=== PATIENT | female | born 1935 | race Caucasian/White ===

== ENCOUNTER 2017-08-12 21:57 | Inpatient (IN) | payer MEDICAID, MEDICARE ==
[~2017-08-12] VITALS: Ht 157.5 cm; Wt 48.1 kg
[~2017-08-12 21:57] MED LIST: AMLO5TAB7 PO; ASPI-605 PO; CHOL100045 PO; CYAN100071 PO; FERR325T27 PO; LOSA25TA13 PO; METO-356 PO; METO-357 PO; PRAV20TA4 PO; SAXA1TBM2 PO
[2017-08-12] MEDS ORDERED: MAGN400T6 PO (22:25)
[2017-08-12 23:43] LABS: BASOPHILS % (AUTO) 0.2 % (0.0-2.0); EOSINOPHILS % (AUTO) 0.4 % (0.0-6.0); HEMATOCRIT 40 % (33-45); LYMPHOCYTES # (AUTO) 1.3 /CMM (0.8-4.8); LYMPHOCYTES % (AUTO) 13.9 % (20.0-44.0); MEAN CORPUSCULAR HGB CONC 33 g/dl (31.0-36.0); MEAN CORPUSCULAR VOLUME 84 fL (82-100); MONOCYTES # (AUTO) 0.7 /CMM (0.1-1.30); MONOCYTES % (AUTO) 7.8 % (2.0-12.0); NEUTROPHILS % (AUTO) 77.7 % (43.0-81.0); PLATELET COUNT (AUTO) 298 /CMM (150-450); RDW COEFFICIENT OF VARIATION 15.7 (11.5-15.0); RED BLOOD CELL COUNT(AUTO) 4.69 MIL/uL (4.0-5.2); WHITE BLOOD COUNT (AUTO) 9.1 K/uL (4.3-11.0)
[2017-08-12 23:53] LABS: INR 0.96 (0.87-1.13)
[2017-08-12 23:54] LABS: SERUM AMMONIA < 10 umol/L (11-32)
[2017-08-12 23:56] LABS: ACETAMINOPHEN 0 ug/ml (10-30); ALANINE AMINOTRANSFERASE 18 U/L (12-78); ALBUMIN 3.4 g/dL (3.4-5.0); ALCOHOL, BLOOD < 3 mg/dL (0-0); ALKALINE PHOSPHATASE 61 U/L (46-116); ASPARTATE AMINOTRANSFERASE 13 U/L (15-37); BILIRUBIN,DIRECT 0.1 mg/dL (0.0-0.2); BILIRUBIN,TOTAL 0.3 mg/dL (0.2-1.0); CALCIUM, SERUM 12.2 mg/dL (8.5-10.1); CARBON DIOXIDE 32 mmol/L (21-32); CHLORIDE 105 mmol/L (98-107); CREATININE 1.8 mg/dL (0.6-1.3); GLUCOSE 179 mg/dL (74-106); POTASSIUM 4.4 mmol/L (3.5-5.1); SALICYLATE 1.5 mg/dL (2.8-20.0); SODIUM SERUM 144 mmol/L (136-145); TOTAL PROTEIN, SERUM 8.2 g/dL (6.4-8.2)
[2017-08-12 23:58] LABS: TROPONIN I < 0.017 ng/mL (0.00-0.056)
[2017-08-12 23:59] LABS: UREA NITROGEN, BLOOD 106 mg/dL (7-18)
[2017-08-13] VITALS (7 sets, daily range): BP systolic 103–162; BP diastolic 60–89
[2017-08-13 00:41] LABS: THYROID STIMULATING HORMONE 0.286 uIU/mL (0.358-3.74)
[2017-08-13] MEDS ORDERED: CEFTRIAXONE 1GM BAG (ER ONLY) 1 GM/50 ML PIGGYBACK IV ONE (01:00)
[2017-08-13 01:02] LABS: APPEARANCE,URINE CLOUDY (CLEAR); BILIRUBIN,URINE NEGATIVE (NEGATIVE); BLOOD, URINE 3+ Ery/uL (NEGATIVE); COLOR,URINE YELLOW (YELLOW); KETONES,URINE NEGATIVE (NEGATIVE); LEUKOCYTE ESTERASE ,URINE 3+ (NEGATIVE); NITRITE, URINE NEGATIVE (NEGATIVE); PROTEIN,URINE 2+ mg/dl (NEGATIVE); UGLUCOSE NEGATIVE (NEGATIVE); UROBILINOGEN,URINE 0.2 EU/dL (0.2)
[2017-08-13 01:16] LABS: BACTERIA,URINE Moderate /HPF (None Seen); WBC,URINE TOO NUMEROUS TO COUN /HPF (0-3)
[2017-08-13 01:17] LABS: SQUAMOUS EPITHELIAL CELL,UR Few /HPF (None Seen)
[2017-08-13] MEDS ORDERED: CEFTRIAXONE 1GM BAG (ER ONLY) 50 ML IV ONE (01:18)
[2017-08-13] MEDS ORDERED: ONDANSETRON HCL/PF 4 MG/2 ML VIAL IVP PRN (01:30)
[2017-08-13] MEDS ORDERED: ZOLPIDEM TARTRATE 5 MG TABLET PO PRN (01:30)
[2017-08-13] MEDS ORDERED: IV NS 0.9% 1,000 ML BAG IV ONE (01:30)
[2017-08-13] MEDS ORDERED: MAG HYDROX/AL HYDROX/SIMETH 30 ML UDC PO PRN (01:30)
[2017-08-13] MEDS ORDERED: MAGNESIUM HYDROXIDE 30 ML UDC PO PRN (01:30)
[2017-08-13] MEDS: IV 1/2NS 1000 ML 1,000 ML IV PRN ×2 (02:22→15:32)
[2017-08-13] MEDS: ASPIRIN EC 81 MG TABLET.DR PO SCH (09:00)
[2017-08-13] MEDS: ATORVASTATIN 10 MG TABLET PO SCH (09:00)
[2017-08-13] MEDS: FERROUS SULFATE (325 MG) 325 MG/TAB TABLET PO SCH (09:00)
[2017-08-13] MEDS: AMLODIPINE BESYLATE 5 MG TABLET PO SCH (09:00)
[2017-08-13] MEDS: MAGNESIUM OXIDE 400 MG TABLET PO SCH (09:00)
[2017-08-13] MEDS ORDERED: METOPROLOL SUCCINATE 25 MG TAB.SR.24H PO SCH (09:00)
[2017-08-13] MEDS: METOPROLOL SUCCINATE 50 MG TAB.SR.24H PO SCH (09:00)
[2017-08-13] MEDS: INSULIN REGULAR, HUMAN 100 UNIT/ML 3 ML VIAL SQ PRN ×3 (11:55→23:25)
[2017-08-13] MEDS: BLOOD SUGAR DIAGNOSTIC 1 EACH STRIP IN SCH ×3 (12:00→23:12)
[2017-08-13] MEDS ORDERED: DEXTROSE 50%-WATER 50 ML DISP.SYRIN IV PRN (12:00)
[2017-08-13] MEDS: HEPARIN SODIUM, PORCINE 5000 UNITS/1 ML VIAL SQ SCH ×2 (12:00→23:07)
[2017-08-13 12:04] LABS: BASOPHILS % (AUTO) 0.4 % (0.0-2.0); EOSINOPHILS % (AUTO) 0.7 % (0.0-6.0); HEMATOCRIT 41 % (33-45); HEMOGLOBIN 13.2 g/dL (11.5-14.8); LYMPHOCYTES # (AUTO) 1.7 /CMM (0.8-4.8); LYMPHOCYTES % (AUTO) 13.4 % (20.0-44.0); MEAN CORPUSCULAR HGB CONC 32 g/dl (31.0-36.0); MEAN CORPUSCULAR VOLUME 83 fL (82-100); MONOCYTES % (AUTO) 7.7 % (2.0-12.0); NEUTROPHILS # (AUTO) 9.6 /CMM (1.8-8.9); NEUTROPHILS % (AUTO) 77.8 % (43.0-81.0); PLATELET COUNT (AUTO) 305 /CMM (150-450); RDW COEFFICIENT OF VARIATION 14.2 (11.5-15.0); RED BLOOD CELL COUNT(AUTO) 4.91 MIL/uL (4.0-5.2); WHITE BLOOD COUNT (AUTO) 12.4 K/uL (4.3-11.0)
[2017-08-13 12:06] LABS: CALCIUM, SERUM 10.8 mg/dL (8.5-10.1); CARBON DIOXIDE 28 mmol/L (21-32); CHLORIDE 105 mmol/L (98-107); CREATININE 1.5 mg/dL (0.6-1.3); GLUCOSE 157 mg/dL (74-106); POTASSIUM 3.9 mmol/L (3.5-5.1); SODIUM SERUM 144 mmol/L (136-145); UREA NITROGEN, BLOOD 101 mg/dL (7-18)
[2017-08-13 12:48] LABS: ABG OXYGEN SATURATION 94.5 % (92.0-98.5); ABG PCO2 47.3 mmHg (35.0-45.0); ABG PH 7.425 (7.350-7.450); ABG PO2 70.8 mmHg (75.0-100.0); AaDO2 22.3 mmHg; COHb 2.6 % (0.5-1.5); MetHb 0.1 % (0.0-1.5); O2Hb 91.9 % (94.0-97.0); SITE, ABG Right Brachial
[2017-08-13] MEDS: GLUCERNA 1.2 1,000 ML BOTTLE NG PRN (16:33)
[2017-08-13 17:35] LABS: CREATININE, URINE 13.2 MG/DL (30.0-125.0); URINE TOTAL PROTEIN 54.8 mg/dL (0-11.9)
[2017-08-13 17:37] LABS: APPEARANCE,URINE CLOUDY (CLEAR); BILIRUBIN,URINE NEGATIVE (NEGATIVE); BLOOD, URINE 1+ Ery/uL (NEGATIVE); COLOR,URINE YELLOW (YELLOW); KETONES,URINE NEGATIVE (NEGATIVE); LEUKOCYTE ESTERASE ,URINE 3+ (NEGATIVE); NITRITE, URINE NEGATIVE (NEGATIVE); PH,URINE 7.5 (5.0-8.0); PROTEIN,URINE 1+ mg/dl (NEGATIVE); UGLUCOSE NEGATIVE (NEGATIVE); UROBILINOGEN,URINE 0.2 EU/dL (0.2)
[2017-08-13 18:05] LABS: BACTERIA,URINE Few /HPF (None Seen); SQUAMOUS EPITHELIAL CELL,UR Few /HPF (None Seen); WBC,URINE 51-80 /HPF (0-3)
[2017-08-13 18:19] LABS: EOSINOPHIL,URINE None Seen
[2017-08-14] VITALS (40 sets, daily range): BP systolic 70–146; BP diastolic 47–98
[2017-08-14] MEDS: IV 1/2NS 1000 ML 1,000 ML IV PRN (05:55)
[2017-08-14] MEDS: BLOOD SUGAR DIAGNOSTIC 1 EACH STRIP IN SCH ×4 (05:56→23:23)
[2017-08-14] MEDS: INSULIN REGULAR, HUMAN 100 UNIT/ML 3 ML VIAL SQ PRN ×3 (06:09→18:21)
[2017-08-14 06:51] LABS: BASOPHILS % (AUTO) 0.3 % (0.0-2.0); EOSINOPHILS % (AUTO) 0.2 % (0.0-6.0); HEMATOCRIT 40 % (33-45); HEMOGLOBIN 12.9 g/dL (11.5-14.8); LYMPHOCYTES # (AUTO) 1.9 /CMM (0.8-4.8); LYMPHOCYTES % (AUTO) 12.4 % (20.0-44.0); MEAN CORPUSCULAR HGB CONC 32 g/dl (31.0-36.0); MEAN CORPUSCULAR VOLUME 84 fL (82-100); MONOCYTES # (AUTO) 0.9 /CMM (0.1-1.30); MONOCYTES % (AUTO) 5.7 % (2.0-12.0); NEUTROPHILS # (AUTO) 12.6 /CMM (1.8-8.9); NEUTROPHILS % (AUTO) 81.4 % (43.0-81.0); PLATELET COUNT (AUTO) 308 /CMM (150-450); RDW COEFFICIENT OF VARIATION 15.2 (11.5-15.0); RED BLOOD CELL COUNT(AUTO) 4.71 MIL/uL (4.0-5.2); WHITE BLOOD COUNT (AUTO) 15.5 K/uL (4.3-11.0)
[2017-08-14 07:02] LABS: ALANINE AMINOTRANSFERASE 15 U/L (12-78); ALBUMIN 3.3 g/dL (3.4-5.0); ALKALINE PHOSPHATASE 59 U/L (46-116); ASPARTATE AMINOTRANSFERASE 18 U/L (15-37); BILIRUBIN,TOTAL 0.3 mg/dL (0.2-1.0); CALCIUM, SERUM 10.4 mg/dL (8.5-10.1); CARBON DIOXIDE 28 mmol/L (21-32); CHLORIDE 104 mmol/L (98-107); CREATININE 1.3 mg/dL (0.6-1.3); GLUCOSE 179 mg/dL (74-106); MAGNESIUM 2.1 mg/dL (1.8-2.4); PHOSPHORUS 1.6 mg/dL (2.5-4.9); POTASSIUM 3.4 mmol/L (3.5-5.1); SODIUM SERUM 142 mmol/L (136-145); TOTAL PROTEIN, SERUM 7.8 g/dL (6.4-8.2); UREA NITROGEN, BLOOD 73 mg/dL (7-18)
[2017-08-14 07:17] LABS: CHOLESTEROL 178 mg/dL (<200); CREATINE KINASE, TOTAL 38 U/L (26-192); HDL CHOLESTEROL 44 mg/dL (40-60); LDL 122 mg/dL (0-99); THYROID STIMULATING HORMONE 0.653 uIU/mL (0.358-3.74); TRIGLYCERIDES 170 mg/dL (30-150)
[2017-08-14] MEDS ORDERED: SODIUM BICARBONATE SYR 50 MEQ/50 ML DISP.SYRIN IV ONE (08:10)
[2017-08-14] MEDS ORDERED: EPINEPHRINE (1:10,000) SYRINGE 1 MG/10 ML DISP.SYRIN IVP ONE (08:10)
[2017-08-14] MEDS: AMLODIPINE BESYLATE 5 MG TABLET PO SCH (09:00)
[2017-08-14] MEDS: FERROUS SULFATE (325 MG) 325 MG/TAB TABLET PO SCH (09:00)
[2017-08-14] MEDS: MAGNESIUM OXIDE 400 MG TABLET PO SCH (09:00)
[2017-08-14] MEDS: ASPIRIN EC 81 MG TABLET.DR PO SCH (09:00)
[2017-08-14] MEDS: METOPROLOL SUCCINATE 50 MG TAB.SR.24H PO SCH (09:00)
[2017-08-14] MEDS: ATORVASTATIN 10 MG TABLET PO SCH (09:00)
[2017-08-14] MEDS ORDERED: CEFTRIAXONE 1 G in IV D5W 50 ML IV SCH (09:00)
[2017-08-14] MEDS: HEPARIN SODIUM, PORCINE 5000 UNITS/1 ML VIAL SQ SCH ×2 (09:00→21:24)
[2017-08-14] MEDS ORDERED: IV NS 0.9% 1,000 ML IV PRN ×2 (10:00→13:10)
[2017-08-14] MEDS ORDERED: IV NS 0.9% 500 ML IV ONE (10:00)
[2017-08-14] MEDS ORDERED: NOREPINEPHRINE 16 MG in IV D5W 500 ML IV PRN ×2 (10:00→10:30)
[2017-08-14] MEDS: IPRATROPIUM NEB FS 0.5 MG/2.5 ML AMPUL.NEB NEB SCH ×3 (10:30→19:35)
[2017-08-14] MEDS ORDERED: FEE PK DOSING 1 MIN EA MC ONE (11:14)
[2017-08-14 11:41] LABS: HEMATOCRIT 40 % (33-45); HEMOGLOBIN 12.6 g/dL (11.5-14.8); LYMPHOCYTES # (AUTO) 1.1 /CMM (0.8-4.8); LYMPHOCYTES % (AUTO) 5.8 % (20.0-44.0); MEAN CORPUSCULAR HGB CONC 32 g/dl (31.0-36.0); MEAN CORPUSCULAR VOLUME 86 fL (82-100); MONOCYTES # (AUTO) 0.4 /CMM (0.1-1.30); NEUTROPHILS % (AUTO) 92.2 % (43.0-81.0); PLATELET COUNT (AUTO) 288 /CMM (150-450); RDW COEFFICIENT OF VARIATION 15.2 (11.5-15.0); RED BLOOD CELL COUNT(AUTO) 4.61 MIL/uL (4.0-5.2); WHITE BLOOD COUNT (AUTO) 18.4 K/uL (4.3-11.0)
[2017-08-14] MEDS ORDERED: VANCOMYCIN 0.75 GM in IV D5W 250 ML IV ONE (12:00)
[2017-08-14 12:10] LABS: ABG BASE EXCESS 0.8 mmol/L; ABG OXYGEN SATURATION 97.9 % (92.0-98.5); ABG PCO2 33.6 mmHg (35.0-45.0); ABG PO2 129.5 mmHg (75.0-100.0); AaDO2 549.9 mmHg; COHb 1.6 % (0.5-1.5); MetHb 0.1 % (0.0-1.5); O2Hb 96.2 % (94.0-97.0); PEEP,BG 5 cm H2O; SITE, ABG Right Radial; VT, ABG 450 mL
[2017-08-14 12:21] LABS: CALCIUM, SERUM 10.2 mg/dL (8.5-10.1); CARBON DIOXIDE 24 mmol/L (21-32); CHLORIDE 107 mmol/L (98-107); CREATININE 1.6 mg/dL (0.6-1.3); GLUCOSE 331 mg/dL (74-106); POTASSIUM 3.4 mmol/L (3.5-5.1); SODIUM SERUM 145 mmol/L (136-145); UREA NITROGEN, BLOOD 77 mg/dL (7-18)
[2017-08-14] MEDS: PIPERACILLIN /TAZOBACTAM 2.25 G in IV D5W 50 ML IV SCH ×3 (13:47→23:14)
[2017-08-14] MEDS: POTASSIUM CL. PREMIX PERIPHER. 50 ML IV SCH ×2 (13:47→16:38)
[2017-08-14] MEDS: IV NS 0.9% 1,000 ML IV SCH ×3 (13:47→23:13)
[2017-08-14] MEDS: POTASSIUM PHOSPHATE MM 7.5 MMOL in IV D5W 100 ML IV SCH ×2 (18:22→20:31)
[2017-08-15] VITALS (44 sets, daily range): BP systolic 119–166; BP diastolic 43–96
[2017-08-15] MEDS: IPRATROPIUM NEB FS 0.5 MG/2.5 ML AMPUL.NEB NEB SCH ×4 (00:40→19:32)
[2017-08-15] MEDS ORDERED: VANCOMYCIN 500 MG VIAL ONE (04:31)
[2017-08-15 04:56] LABS: EOSINOPHILS % (AUTO) 0.2 % (0.0-6.0); HEMATOCRIT 32 % (33-45); HEMOGLOBIN 11.1 g/dL (11.5-14.8); LYMPHOCYTES % (AUTO) 4.7 % (20.0-44.0); MEAN CORPUSCULAR HGB CONC 35 g/dl (31.0-36.0); MEAN CORPUSCULAR VOLUME 83 fL (82-100); MONOCYTES # (AUTO) 0.5 /CMM (0.1-1.30); MONOCYTES % (AUTO) 2.4 % (2.0-12.0); NEUTROPHILS # (AUTO) 19.7 /CMM (1.8-8.9); NEUTROPHILS % (AUTO) 92.7 % (43.0-81.0); PLATELET COUNT (AUTO) 218 /CMM (150-450); RED BLOOD CELL COUNT(AUTO) 3.88 MIL/uL (4.0-5.2); WHITE BLOOD COUNT (AUTO) 21.2 K/uL (4.3-11.0)
[2017-08-15] MEDS: PIPERACILLIN /TAZOBACTAM 2.25 G in IV D5W 50 ML IV SCH ×4 (05:04→23:13)
[2017-08-15] MEDS: VANCOMYCIN 500 MG in IV D5W 100 ML IV SCH (05:05)
[2017-08-15 05:15] LABS: CALCIUM, SERUM 8.5 mg/dL (8.5-10.1); CARBON DIOXIDE 25 mmol/L (21-32); CHLORIDE 111 mmol/L (98-107); CREATININE 1.3 mg/dL (0.6-1.3); GLUCOSE 59 mg/dL (74-106); MAGNESIUM 1.7 mg/dL (1.8-2.4); PHOSPHORUS 1.8 mg/dL (2.5-4.9); POTASSIUM 3.4 mmol/L (3.5-5.1); SODIUM SERUM 145 mmol/L (136-145); UREA NITROGEN, BLOOD 58 mg/dL (7-18)
[2017-08-15 05:46] LABS: BAND % (MANUAL) 3 % (0.0-5.0); EOSINOPHILS % (MANUAL) 1 % (0-4); LYMPHOCYTES % (MANUAL) 5 % (16-48); MONOCYTES % (MANUAL) 3 % (0-11.0); NEUTROPHILS % (MANUAL) 88 (42-76)
[2017-08-15] MEDS: BLOOD SUGAR DIAGNOSTIC 1 EACH STRIP IN SCH ×4 (05:47→23:13)
[2017-08-15] MEDS: MAGNESIUM OXIDE 400 MG TABLET PO SCH (08:21)
[2017-08-15] MEDS: FERROUS SULFATE (325 MG) 325 MG/TAB TABLET PO SCH (08:21)
[2017-08-15] MEDS: ASPIRIN EC 81 MG TABLET.DR PO SCH (08:21)
[2017-08-15] MEDS: ATORVASTATIN 10 MG TABLET PO SCH (08:21)
[2017-08-15] MEDS: METOPROLOL SUCCINATE 50 MG TAB.SR.24H PO SCH (09:00)
[2017-08-15] MEDS: AMLODIPINE BESYLATE 5 MG TABLET PO SCH (09:00)
[2017-08-15] MEDS: HEPARIN SODIUM, PORCINE 5000 UNITS/1 ML VIAL SQ SCH ×2 (09:27→20:59)
[2017-08-15 09:28] LABS: ABG BASE EXCESS 0.7 mmol/L; ABG OXYGEN SATURATION 94.5 % (92.0-98.5); ABG PH 7.477 (7.350-7.450); ABG PO2 76.3 mmHg (75.0-100.0); AaDO2 98.8 mmHg; COHb 0.8 % (0.5-1.5); MetHb 0.4 % (0.0-1.5); O2Hb 93.4 % (94.0-97.0); PEEP,BG 5 cm H2O; SITE, ABG Right Radial; VT, ABG 450 mL
[2017-08-15] MEDS ORDERED: POTASSIUM CL. PREMIX PERIPHER. 50 ML IV SCH (10:00)
[2017-08-15] MEDS: Magnesium 1GM/D5W 100ML PREMIX 100 ML IV SCH ×2 (10:50→12:22)
[2017-08-15] MEDS ORDERED: POTASSIUM PHOSPHATE MM 15 MMOL in IV D5W 250 ML IV SCH ×2 (11:00→13:00)
[2017-08-15] MEDS: POTASSIUM CL. PREMIX PERIPHER. 50 ML IV SCH ×4 (12:21→17:09)
[2017-08-15] MEDS: GLUCERNA 1.2 1,000 ML BOTTLE NG PRN (12:46)
[2017-08-15] MEDS: LEVOFLOXACIN 750 MG /D5W 150ML 750 MG in PREMIX 1 EA IV SCH (15:29)
[2017-08-15] MEDS: INSULIN REGULAR, HUMAN 100 UNIT/ML 3 ML VIAL SQ PRN (17:16)
[2017-08-15] MEDS: IV NS 0.9% 1,000 ML IV PRN (23:18)
[2017-08-16] VITALS (46 sets, daily range): BP systolic 105–194; BP diastolic 63–104
[2017-08-16] MEDS: VANCOMYCIN 500 MG in IV D5W 100 ML IV SCH ×2 (00:23→18:16)
[2017-08-16] MEDS: IPRATROPIUM NEB FS 0.5 MG/2.5 ML AMPUL.NEB NEB SCH ×4 (01:14→19:47)
[2017-08-16] MEDS: HYDROCODONE/APAP 5/325MG 1 EACH TABLET PO PRN ×2 (03:22→11:46)
[2017-08-16 04:53] LABS: BASOPHILS % (AUTO) 0.2 % (0.0-2.0); EOSINOPHILS % (AUTO) 0.4 % (0.0-6.0); HEMATOCRIT 32 % (33-45); HEMOGLOBIN 10.9 g/dL (11.5-14.8); LYMPHOCYTES # (AUTO) 1.1 /CMM (0.8-4.8); LYMPHOCYTES % (AUTO) 5.8 % (20.0-44.0); MEAN CORPUSCULAR HGB CONC 34 g/dl (31.0-36.0); MEAN CORPUSCULAR VOLUME 84 fL (82-100); MONOCYTES # (AUTO) 0.4 /CMM (0.1-1.30); NEUTROPHILS % (AUTO) 91.6 % (43.0-81.0); PLATELET COUNT (AUTO) 187 /CMM (150-450); RDW COEFFICIENT OF VARIATION 14.1 (11.5-15.0); WHITE BLOOD COUNT (AUTO) 19.6 K/uL (4.3-11.0)
[2017-08-16] MEDS: PIPERACILLIN /TAZOBACTAM 2.25 G in IV D5W 50 ML IV SCH ×3 (05:10→17:00)
[2017-08-16 05:15] LABS: ALANINE AMINOTRANSFERASE 44 U/L (12-78); ALBUMIN 2.3 g/dL (3.4-5.0); ALKALINE PHOSPHATASE 68 U/L (46-116); ASPARTATE AMINOTRANSFERASE 31 U/L (15-37); BILIRUBIN,TOTAL 0.4 mg/dL (0.2-1.0); CALCIUM, SERUM 8.7 mg/dL (8.5-10.1); CARBON DIOXIDE 22 mmol/L (21-32); CHLORIDE 106 mmol/L (98-107); CREATININE 1.1 mg/dL (0.6-1.3); GLUCOSE 168 mg/dL (74-106); MAGNESIUM 2.1 mg/dL (1.8-2.4); PHOSPHORUS 3.3 mg/dL (2.5-4.9); POTASSIUM 3.5 mmol/L (3.5-5.1); SODIUM SERUM 141 mmol/L (136-145); TOTAL PROTEIN, SERUM 6.3 g/dL (6.4-8.2); UREA NITROGEN, BLOOD 36 mg/dL (7-18)
[2017-08-16] MEDS: BLOOD SUGAR DIAGNOSTIC 1 EACH STRIP IN SCH ×3 (05:23→18:16)
[2017-08-16] MEDS: INSULIN REGULAR, HUMAN 100 UNIT/ML 3 ML VIAL SQ PRN ×3 (05:23→18:20)
[2017-08-16 06:08] LABS: *SPE A/G RATIO 0.9 (0.7-1.7); *SPE ALBUMIN 3.3 g/dL (2.9-4.4); *SPE ALPHA-1-GLOBULIN 0.2 g/dL (0.0-0.4); *SPE BETA GLOBULIN 0.9 g/dL (0.7-1.3); *SPE GLOBULIN, TOTAL 3.7 g/dL (2.2-3.9); *SPE M-SPIKE 0.4 g/dL (Not Observed); *SPEGAMMA GLOBULIN 1.6 g/dL (0.4-1.8)
[2017-08-16] MEDS: FERROUS SULFATE (325 MG) 325 MG/TAB TABLET PO SCH (09:02)
[2017-08-16] MEDS: ASPIRIN EC 81 MG TABLET.DR PO SCH (09:02)
[2017-08-16] MEDS: ATORVASTATIN 10 MG TABLET PO SCH (09:02)
[2017-08-16] MEDS: METOPROLOL SUCCINATE 50 MG TAB.SR.24H PO SCH (09:02)
[2017-08-16] MEDS: AMLODIPINE BESYLATE 5 MG TABLET PO SCH (09:02)
[2017-08-16] MEDS: MAGNESIUM OXIDE 400 MG TABLET PO SCH (09:02)
[2017-08-16] MEDS: HEPARIN SODIUM, PORCINE 5000 UNITS/1 ML VIAL SQ SCH ×2 (09:03→21:18)
[2017-08-16] MEDS: NITROGLYCERIN 30 GM TUBE TP SCH ×2 (09:53→21:15)
[2017-08-16 11:13] LABS: CALCITRIOL VIT D,1, 25 DIHYDRO 65.5 pg/mL (19.9-79.3)
[2017-08-16] MEDS: VITAMINS A AND D 56.7 GM TUBE TP PRN (11:46)
[2017-08-16] MEDS ORDERED: hydrALAZINE HCL IV 20 MG VIAL IV PRN (12:30)
[2017-08-16] MEDS: IV NS 0.9% 1,000 ML IV PRN (15:00)
[2017-08-17] VITALS (43 sets, daily range): BP systolic 112–166; BP diastolic 60–87
[2017-08-17] MEDS: BLOOD SUGAR DIAGNOSTIC 1 EACH STRIP IN SCH ×5 (00:38→23:54)
[2017-08-17] MEDS: PIPERACILLIN /TAZOBACTAM 2.25 G in IV D5W 50 ML IV SCH ×5 (00:39→23:54)
[2017-08-17] MEDS: IPRATROPIUM NEB FS 0.5 MG/2.5 ML AMPUL.NEB NEB SCH ×4 (01:24→19:38)
[2017-08-17 04:42] LABS: EOSINOPHILS % (AUTO) 0.4 % (0.0-6.0); HEMATOCRIT 31 % (33-45); HEMOGLOBIN 10.3 g/dL (11.5-14.8); LYMPHOCYTES # (AUTO) 1.1 /CMM (0.8-4.8); LYMPHOCYTES % (AUTO) 5.9 % (20.0-44.0); MEAN CORPUSCULAR HGB CONC 33 g/dl (31.0-36.0); MEAN CORPUSCULAR VOLUME 84 fL (82-100); MONOCYTES # (AUTO) 0.5 /CMM (0.1-1.30); MONOCYTES % (AUTO) 2.5 % (2.0-12.0); NEUTROPHILS # (AUTO) 16.7 /CMM (1.8-8.9); NEUTROPHILS % (AUTO) 91.2 % (43.0-81.0); PLATELET COUNT (AUTO) 193 /CMM (150-450); RDW COEFFICIENT OF VARIATION 14.3 (11.5-15.0); WHITE BLOOD COUNT (AUTO) 18.4 K/uL (4.3-11.0)
[2017-08-17 05:00] LABS: CALCIUM, SERUM 8.4 mg/dL (8.5-10.1); CARBON DIOXIDE 23 mmol/L (21-32); CHLORIDE 102 mmol/L (98-107); GLUCOSE 146 mg/dL (74-106); MAGNESIUM 1.9 mg/dL (1.8-2.4); PHOSPHORUS 3.6 mg/dL (2.5-4.9); POTASSIUM 3.6 mmol/L (3.5-5.1); SODIUM SERUM 137 mmol/L (136-145); UREA NITROGEN, BLOOD 25 mg/dL (7-18)
[2017-08-17] MEDS: INSULIN REGULAR, HUMAN 100 UNIT/ML 3 ML VIAL SQ PRN ×4 (05:42→23:55)
[2017-08-17] MEDS: HEPARIN SODIUM, PORCINE 5000 UNITS/1 ML VIAL SQ SCH ×2 (09:36→20:14)
[2017-08-17] MEDS: ATORVASTATIN 10 MG TABLET PO SCH (09:37)
[2017-08-17] MEDS: ASPIRIN EC 81 MG TABLET.DR PO SCH (09:37)
[2017-08-17] MEDS: FERROUS SULFATE (325 MG) 325 MG/TAB TABLET PO SCH (09:37)
[2017-08-17] MEDS: METOPROLOL SUCCINATE 50 MG TAB.SR.24H PO SCH (09:37)
[2017-08-17] MEDS: AMLODIPINE BESYLATE 5 MG TABLET PO SCH (09:38)
[2017-08-17] MEDS: MAGNESIUM OXIDE 400 MG TABLET PO SCH (09:38)
[2017-08-17] MEDS: NITROGLYCERIN 30 GM TUBE TP SCH ×2 (09:41→20:13)
[2017-08-17] MEDS: VANCOMYCIN 500 MG in IV D5W 100 ML IV SCH (12:15)
[2017-08-17] MEDS: LEVOFLOXACIN 750 MG /D5W 150ML 750 MG in PREMIX 1 EA IV SCH (14:03)
[2017-08-17] MEDS: GLUCERNA 1.2 1,000 ML BOTTLE NG PRN (17:41)
[2017-08-18] VITALS (53 sets, daily range): BP systolic 105–167; BP diastolic 58–88
[2017-08-18] MEDS: IPRATROPIUM NEB FS 0.5 MG/2.5 ML AMPUL.NEB NEB SCH ×4 (01:22→19:24)
[2017-08-18 04:40] LABS: EOSINOPHILS % (AUTO) 0.7 % (0.0-6.0); HEMATOCRIT 29 % (33-45); HEMOGLOBIN 9.6 g/dL (11.5-14.8); LYMPHOCYTES # (AUTO) 0.9 /CMM (0.8-4.8); LYMPHOCYTES % (AUTO) 6.7 % (20.0-44.0); MEAN CORPUSCULAR HGB CONC 33 g/dl (31.0-36.0); MEAN CORPUSCULAR VOLUME 83 fL (82-100); MONOCYTES # (AUTO) 0.8 /CMM (0.1-1.30); NEUTROPHILS # (AUTO) 11.8 /CMM (1.8-8.9); NEUTROPHILS % (AUTO) 86.6 % (43.0-81.0); PLATELET COUNT (AUTO) 192 /CMM (150-450); RDW COEFFICIENT OF VARIATION 14.9 (11.5-15.0); RED BLOOD CELL COUNT(AUTO) 3.49 MIL/uL (4.0-5.2); WHITE BLOOD COUNT (AUTO) 13.6 K/uL (4.3-11.0)
[2017-08-18 04:51] LABS: CALCIUM, SERUM 8.6 mg/dL (8.5-10.1); CARBON DIOXIDE 25 mmol/L (21-32); CHLORIDE 102 mmol/L (98-107); CREATININE 1.2 mg/dL (0.6-1.3); GLUCOSE 179 mg/dL (74-106); MAGNESIUM 1.8 mg/dL (1.8-2.4); PHOSPHORUS 3.7 mg/dL (2.5-4.9); POTASSIUM 4.1 mmol/L (3.5-5.1); SODIUM SERUM 136 mmol/L (136-145); UREA NITROGEN, BLOOD 31 mg/dL (7-18)
[2017-08-18] MEDS: IV NS 0.9% 1,000 ML IV PRN (05:11)
[2017-08-18] MEDS: PIPERACILLIN /TAZOBACTAM 2.25 G in IV D5W 50 ML IV SCH ×3 (05:12→17:57)
[2017-08-18] MEDS: INSULIN REGULAR, HUMAN 100 UNIT/ML 3 ML VIAL SQ PRN ×3 (05:13→18:12)
[2017-08-18] MEDS: BLOOD SUGAR DIAGNOSTIC 1 EACH STRIP IN SCH ×3 (06:04→17:58)
[2017-08-18] MEDS: FERROUS SULFATE (325 MG) 325 MG/TAB TABLET PO SCH (08:39)
[2017-08-18] MEDS: MAGNESIUM OXIDE 400 MG TABLET PO SCH (08:39)
[2017-08-18] MEDS: AMLODIPINE BESYLATE 5 MG TABLET PO SCH (08:39)
[2017-08-18] MEDS: ASPIRIN EC 81 MG TABLET.DR PO SCH (08:39)
[2017-08-18] MEDS: NITROGLYCERIN 30 GM TUBE TP SCH ×2 (08:40→21:53)
[2017-08-18] MEDS: HEPARIN SODIUM, PORCINE 5000 UNITS/1 ML VIAL SQ SCH ×2 (08:42→21:55)
[2017-08-18] MEDS: METOPROLOL SUCCINATE 50 MG TAB.SR.24H PO SCH (08:43)
[2017-08-18 08:48] LABS: ABG BASE EXCESS 2.6 mmol/L; ABG OXYGEN SATURATION 93.3 % (92.0-98.5); ABG PCO2 35.8 mmHg (35.0-45.0); ABG PO2 69.4 mmHg (75.0-100.0); AaDO2 102.4 mmHg; COHb 0.7 % (0.5-1.5); MetHb 0.2 % (0.0-1.5); O2Hb 92.5 % (94.0-97.0); PEEP,BG 5 cm H2O; SITE, ABG Right Brachial; VT, ABG 450 mL
[2017-08-18] MEDS: GLUCERNA 1.2 1,000 ML BOTTLE NG PRN (09:57)
[2017-08-18] MEDS: LACTOBACILLUS RHAMNOSUS GG 1 EACH CAP.SPRINK PO SCH (17:58)
[2017-08-19] VITALS (40 sets, daily range): BP systolic 106–163; BP diastolic 59–113
[2017-08-19] MEDS: INSULIN REGULAR, HUMAN 100 UNIT/ML 3 ML VIAL SQ PRN ×5 (00:39→23:55)
[2017-08-19] MEDS: BLOOD SUGAR DIAGNOSTIC 1 EACH STRIP IN SCH ×5 (00:40→23:55)
[2017-08-19] MEDS: PIPERACILLIN /TAZOBACTAM 2.25 G in IV D5W 50 ML IV SCH ×5 (00:41→23:56)
[2017-08-19] MEDS: IPRATROPIUM NEB FS 0.5 MG/2.5 ML AMPUL.NEB NEB SCH ×4 (02:08→19:27)
[2017-08-19 04:38] LABS: BASOPHILS % (AUTO) 0.3 % (0.0-2.0); EOSINOPHILS % (AUTO) 1.3 % (0.0-6.0); HEMATOCRIT 30 % (33-45); HEMOGLOBIN 9.8 g/dL (11.5-14.8); LYMPHOCYTES # (AUTO) 1.1 /CMM (0.8-4.8); LYMPHOCYTES % (AUTO) 9.1 % (20.0-44.0); MEAN CORPUSCULAR HGB CONC 33 g/dl (31.0-36.0); MEAN CORPUSCULAR VOLUME 84 fL (82-100); MONOCYTES # (AUTO) 0.6 /CMM (0.1-1.30); MONOCYTES % (AUTO) 5.5 % (2.0-12.0); NEUTROPHILS # (AUTO) 9.9 /CMM (1.8-8.9); NEUTROPHILS % (AUTO) 83.8 % (43.0-81.0); PLATELET COUNT (AUTO) 202 /CMM (150-450); RDW COEFFICIENT OF VARIATION 14.4 (11.5-15.0); RED BLOOD CELL COUNT(AUTO) 3.59 MIL/uL (4.0-5.2); WHITE BLOOD COUNT (AUTO) 11.8 K/uL (4.3-11.0)
[2017-08-19 05:04] LABS: CALCIUM, SERUM 8.7 mg/dL (8.5-10.1); CARBON DIOXIDE 26 mmol/L (21-32); CHLORIDE 100 mmol/L (98-107); CREATININE 1.1 mg/dL (0.6-1.3); GLUCOSE 158 mg/dL (74-106); MAGNESIUM 1.8 mg/dL (1.8-2.4); PHOSPHORUS 4.2 mg/dL (2.5-4.9); POTASSIUM 3.5 mmol/L (3.5-5.1); SODIUM SERUM 136 mmol/L (136-145); UREA NITROGEN, BLOOD 22 mg/dL (7-18)
[2017-08-19] MEDS: IV NS 0.9% 1,000 ML IV PRN (07:38)
[2017-08-19] MEDS: LACTOBACILLUS RHAMNOSUS GG 1 EACH CAP.SPRINK PO SCH ×2 (08:54→16:50)
[2017-08-19] MEDS: MAGNESIUM OXIDE 400 MG TABLET PO SCH (08:54)
[2017-08-19] MEDS: AMLODIPINE BESYLATE 5 MG TABLET PO SCH (08:54)
[2017-08-19] MEDS: FERROUS SULFATE (325 MG) 325 MG/TAB TABLET PO SCH (08:54)
[2017-08-19] MEDS: ASPIRIN EC 81 MG TABLET.DR PO SCH (08:55)
[2017-08-19] MEDS: Z GUARD REMEDY 2 OZ OINT TP PRN (08:56)
[2017-08-19] MEDS: HEPARIN SODIUM, PORCINE 5000 UNITS/1 ML VIAL SQ SCH ×2 (08:56→21:21)
[2017-08-19] MEDS: METOPROLOL SUCCINATE 50 MG TAB.SR.24H PO SCH (08:56)
[2017-08-19] MEDS: NITROGLYCERIN 30 GM TUBE TP SCH ×2 (08:57→21:19)
[2017-08-19] MEDS: LEVOFLOXACIN 750 MG /D5W 150ML 750 MG in PREMIX 1 EA IV SCH (13:10)
[2017-08-19] MEDS: GLUCERNA 1.2 1,000 ML BOTTLE NG PRN (16:50)
[2017-08-20] VITALS (44 sets, daily range): BP systolic 98–172; BP diastolic 53–86
[2017-08-20] MEDS: IPRATROPIUM NEB FS 0.5 MG/2.5 ML AMPUL.NEB NEB SCH ×4 (01:19→19:35)
[2017-08-20 05:19] LABS: CALCIUM, SERUM 8.9 mg/dL (8.5-10.1); CARBON DIOXIDE 26 mmol/L (21-32); CHLORIDE 100 mmol/L (98-107); CREATININE 1.2 mg/dL (0.6-1.3); GLUCOSE 164 mg/dL (74-106); POTASSIUM 3.7 mmol/L (3.5-5.1); SODIUM SERUM 135 mmol/L (136-145); UREA NITROGEN, BLOOD 22 mg/dL (7-18)
[2017-08-20] MEDS: BLOOD SUGAR DIAGNOSTIC 1 EACH STRIP IN SCH ×4 (05:45→23:23)
[2017-08-20] MEDS: PIPERACILLIN /TAZOBACTAM 2.25 G in IV D5W 50 ML IV SCH ×4 (05:45→23:23)
[2017-08-20] MEDS: INSULIN REGULAR, HUMAN 100 UNIT/ML 3 ML VIAL SQ PRN ×4 (05:47→23:24)
[2017-08-20] MEDS: LACTOBACILLUS RHAMNOSUS GG 1 EACH CAP.SPRINK PO SCH ×2 (09:22→17:50)
[2017-08-20] MEDS: MAGNESIUM OXIDE 400 MG TABLET PO SCH (09:22)
[2017-08-20] MEDS: AMLODIPINE BESYLATE 5 MG TABLET PO SCH (09:22)
[2017-08-20] MEDS: METOPROLOL SUCCINATE 50 MG TAB.SR.24H PO SCH (09:22)
[2017-08-20] MEDS: ASPIRIN EC 81 MG TABLET.DR PO SCH (09:22)
[2017-08-20] MEDS: FERROUS SULFATE (325 MG) 325 MG/TAB TABLET PO SCH (09:22)
[2017-08-20] MEDS: HEPARIN SODIUM, PORCINE 5000 UNITS/1 ML VIAL SQ SCH (09:24)
[2017-08-20] MEDS: NITROGLYCERIN 30 GM TUBE TP SCH ×2 (09:24→20:59)
[2017-08-20] MEDS: GLUCERNA 1.2 1,000 ML BOTTLE NG PRN (17:54)
[2017-08-20] MEDS: IV NS 0.9% 1,000 ML IV PRN (17:54)
[2017-08-21] VITALS (36 sets, daily range): BP systolic 107–144; BP diastolic 58–76
[2017-08-21] MEDS: ACETAMINOPHEN 325 MG TABLET PO PRN (00:27)
[2017-08-21] MEDS: IPRATROPIUM NEB FS 0.5 MG/2.5 ML AMPUL.NEB NEB SCH ×4 (01:05→19:17)
[2017-08-21 04:36] LABS: CALCIUM, SERUM 8.8 mg/dL (8.5-10.1); CARBON DIOXIDE 26 mmol/L (21-32); CHLORIDE 100 mmol/L (98-107); CREATININE 1.3 mg/dL (0.6-1.3); GLUCOSE 138 mg/dL (74-106); POTASSIUM 3.8 mmol/L (3.5-5.1); SODIUM SERUM 135 mmol/L (136-145); UREA NITROGEN, BLOOD 24 mg/dL (7-18)
[2017-08-21] MEDS: PIPERACILLIN /TAZOBACTAM 2.25 G in IV D5W 50 ML IV SCH (05:32)
[2017-08-21] MEDS: BLOOD SUGAR DIAGNOSTIC 1 EACH STRIP IN SCH ×4 (05:32→23:25)
[2017-08-21] MEDS: INSULIN REGULAR, HUMAN 100 UNIT/ML 3 ML VIAL SQ PRN ×3 (05:33→18:09)
[2017-08-21] MEDS: LACTOBACILLUS RHAMNOSUS GG 1 EACH CAP.SPRINK PO SCH ×2 (08:35→16:20)
[2017-08-21] MEDS: FERROUS SULFATE (325 MG) 325 MG/TAB TABLET PO SCH (08:35)
[2017-08-21] MEDS: MAGNESIUM OXIDE 400 MG TABLET PO SCH (08:35)
[2017-08-21] MEDS: ASPIRIN EC 81 MG TABLET.DR PO SCH (08:35)
[2017-08-21] MEDS: AMLODIPINE BESYLATE 5 MG TABLET PO SCH (08:36)
[2017-08-21] MEDS: Z GUARD REMEDY 2 OZ OINT TP PRN (08:37)
[2017-08-21] MEDS: METOPROLOL SUCCINATE 50 MG TAB.SR.24H PO SCH (08:37)
[2017-08-21] MEDS: VITAMINS A AND D 56.7 GM TUBE TP PRN (08:38)
[2017-08-21] MEDS: NITROGLYCERIN 30 GM TUBE TP SCH ×2 (08:39→20:16)
[2017-08-21] MEDS: LEVOFLOXACIN 750 MG /D5W 150ML 750 MG in PREMIX 1 EA IV SCH (14:23)
[2017-08-21] MEDS: GLUCERNA 1.2 1,000 ML BOTTLE NG PRN (16:20)
[2017-08-21] MEDS: IV NS 0.9% 1,000 ML IV PRN (18:34)
[2017-08-22] VITALS (37 sets, daily range): BP systolic 111–142; BP diastolic 62–79
[2017-08-22] MEDS: IPRATROPIUM NEB FS 0.5 MG/2.5 ML AMPUL.NEB NEB SCH ×4 (01:26→19:18)
[2017-08-22 04:38] LABS: EOSINOPHILS % (AUTO) 1.8 % (0.0-6.0); HEMATOCRIT 28 % (33-45); HEMOGLOBIN 9.2 g/dL (11.5-14.8); LYMPHOCYTES # (AUTO) 1.1 /CMM (0.8-4.8); LYMPHOCYTES % (AUTO) 9.2 % (20.0-44.0); MEAN CORPUSCULAR HGB CONC 34 g/dl (31.0-36.0); MEAN CORPUSCULAR VOLUME 84 fL (82-100); MONOCYTES # (AUTO) 0.8 /CMM (0.1-1.30); MONOCYTES % (AUTO) 6.7 % (2.0-12.0); NEUTROPHILS # (AUTO) 9.9 /CMM (1.8-8.9); NEUTROPHILS % (AUTO) 82.3 % (43.0-81.0); PLATELET COUNT (AUTO) 292 /CMM (150-450); RDW COEFFICIENT OF VARIATION 14.3 (11.5-15.0); RED BLOOD CELL COUNT(AUTO) 3.29 MIL/uL (4.0-5.2)
[2017-08-22 04:44] LABS: CALCIUM, SERUM 8.8 mg/dL (8.5-10.1); CARBON DIOXIDE 25 mmol/L (21-32); CHLORIDE 99 mmol/L (98-107); CREATININE 1.2 mg/dL (0.6-1.3); GLUCOSE 184 mg/dL (74-106); MAGNESIUM 1.9 mg/dL (1.8-2.4); PHOSPHORUS 5.1 mg/dL (2.5-4.9); POTASSIUM 4.5 mmol/L (3.5-5.1); SODIUM SERUM 134 mmol/L (136-145); UREA NITROGEN, BLOOD 25 mg/dL (7-18)
[2017-08-22] MEDS: INSULIN REGULAR, HUMAN 100 UNIT/ML 3 ML VIAL SQ PRN ×2 (05:13→17:59)
[2017-08-22] MEDS: BLOOD SUGAR DIAGNOSTIC 1 EACH STRIP IN SCH ×3 (05:13→17:37)
[2017-08-22] MEDS: FERROUS SULFATE (325 MG) 325 MG/TAB TABLET PO SCH (08:08)
[2017-08-22] MEDS: LACTOBACILLUS RHAMNOSUS GG 1 EACH CAP.SPRINK PO SCH ×2 (08:08→16:37)
[2017-08-22] MEDS: METOPROLOL SUCCINATE 50 MG TAB.SR.24H PO SCH (08:08)
[2017-08-22] MEDS: ASPIRIN EC 81 MG TABLET.DR PO SCH (08:08)
[2017-08-22] MEDS: NITROGLYCERIN 30 GM TUBE TP SCH ×2 (08:09→20:34)
[2017-08-22] MEDS: MAGNESIUM OXIDE 400 MG TABLET PO SCH (08:09)
[2017-08-22] MEDS: AMLODIPINE BESYLATE 5 MG TABLET PO SCH (08:09)
[2017-08-22 09:08] LABS: ABG OXYGEN SATURATION 94.6 % (92.0-98.5); ABG PCO2 34.6 mmHg (35.0-45.0); ABG PH 7.496 (7.350-7.450); ABG PO2 81.6 mmHg (75.0-100.0); AaDO2 91.6 mmHg; COHb 0.8 % (0.5-1.5); MetHb 0.1 % (0.0-1.5); O2Hb 93.7 % (94.0-97.0); PEEP,BG 5 cm H2O; SITE, ABG Right Radial; VENT MODE, BG AC 15 450 30% +5; VT, ABG 450 mL
[2017-08-22] MEDS: GLUCERNA 1.2 1,000 ML BOTTLE NG PRN (11:00)
[2017-08-22] MEDS: ACETAMINOPHEN 325 MG TABLET PO PRN (17:13)
[2017-08-22] MEDS: IV NS 0.9% 1,000 ML IV PRN (18:59)
[2017-08-23] VITALS (36 sets, daily range): BP systolic 107–162; BP diastolic 59–99
[2017-08-23] MEDS: IPRATROPIUM NEB FS 0.5 MG/2.5 ML AMPUL.NEB NEB SCH ×4 (01:52→19:08)
[2017-08-23] MEDS: BLOOD SUGAR DIAGNOSTIC 1 EACH STRIP IN SCH ×4 (02:08→18:16)
[2017-08-23] MEDS: INSULIN REGULAR, HUMAN 100 UNIT/ML 3 ML VIAL SQ PRN ×4 (02:10→18:18)
[2017-08-23] MEDS: LACTOBACILLUS RHAMNOSUS GG 1 EACH CAP.SPRINK PO SCH ×2 (08:46→18:16)
[2017-08-23] MEDS: ASPIRIN EC 81 MG TABLET.DR PO SCH (08:46)
[2017-08-23] MEDS: FERROUS SULFATE (325 MG) 325 MG/TAB TABLET PO SCH (08:46)
[2017-08-23] MEDS: METOPROLOL SUCCINATE 50 MG TAB.SR.24H PO SCH (08:46)
[2017-08-23] MEDS: AMLODIPINE BESYLATE 5 MG TABLET PO SCH (08:47)
[2017-08-23] MEDS: MAGNESIUM OXIDE 400 MG TABLET PO SCH (08:47)
[2017-08-23] MEDS: NITROGLYCERIN 30 GM TUBE TP SCH ×2 (08:50→21:23)
[2017-08-23] MEDS: GLUCERNA 1.2 1,000 ML BOTTLE NG PRN (11:54)
[2017-08-23] MEDS: Z GUARD REMEDY 2 OZ OINT TP PRN (12:07)
[2017-08-23] MEDS: IV NS 0.9% 1,000 ML IV PRN (18:32)
[2017-08-24] VITALS (37 sets, daily range): BP systolic 71–168; BP diastolic 28–84
[2017-08-24] MEDS: BLOOD SUGAR DIAGNOSTIC 1 EACH STRIP IN SCH ×4 (00:43→17:20)
[2017-08-24] MEDS: INSULIN REGULAR, HUMAN 100 UNIT/ML 3 ML VIAL SQ PRN ×3 (00:47→17:24)
[2017-08-24] MEDS: IPRATROPIUM NEB FS 0.5 MG/2.5 ML AMPUL.NEB NEB SCH ×4 (01:39→19:24)
[2017-08-24 04:59] LABS: BASOPHILS % (AUTO) 0.2 % (0.0-2.0); EOSINOPHILS % (AUTO) 1.1 % (0.0-6.0); HEMATOCRIT 28 % (33-45); HEMOGLOBIN 9.5 g/dL (11.5-14.8); LYMPHOCYTES # (AUTO) 2.2 /CMM (0.8-4.8); MEAN CORPUSCULAR HGB CONC 33 g/dl (31.0-36.0); MEAN CORPUSCULAR VOLUME 84 fL (82-100); MONOCYTES # (AUTO) 0.8 /CMM (0.1-1.30); MONOCYTES % (AUTO) 5.2 % (2.0-12.0); NEUTROPHILS # (AUTO) 12.6 /CMM (1.8-8.9); NEUTROPHILS % (AUTO) 79.5 % (43.0-81.0); PLATELET COUNT (AUTO) 425 /CMM (150-450); RDW COEFFICIENT OF VARIATION 14.3 (11.5-15.0); RED BLOOD CELL COUNT(AUTO) 3.38 MIL/uL (4.0-5.2); WHITE BLOOD COUNT (AUTO) 15.9 K/uL (4.3-11.0)
[2017-08-24 05:12] LABS: CALCIUM, SERUM 8.9 mg/dL (8.5-10.1); CARBON DIOXIDE 26 mmol/L (21-32); CHLORIDE 99 mmol/L (98-107); GLUCOSE 119 mg/dL (74-106); MAGNESIUM 2.1 mg/dL (1.8-2.4); PHOSPHORUS 4.7 mg/dL (2.5-4.9); POTASSIUM 4.3 mmol/L (3.5-5.1); SODIUM SERUM 134 mmol/L (136-145); UREA NITROGEN, BLOOD 28 mg/dL (7-18)
[2017-08-24] MEDS: MAGNESIUM OXIDE 400 MG TABLET PO SCH (09:11)
[2017-08-24] MEDS: ASPIRIN EC 81 MG TABLET.DR PO SCH (09:11)
[2017-08-24] MEDS: LACTOBACILLUS RHAMNOSUS GG 1 EACH CAP.SPRINK PO SCH ×2 (09:12→17:20)
[2017-08-24] MEDS: METOPROLOL SUCCINATE 50 MG TAB.SR.24H PO SCH (09:12)
[2017-08-24] MEDS: AMLODIPINE BESYLATE 5 MG TABLET PO SCH (09:12)
[2017-08-24] MEDS: FERROUS SULFATE (325 MG) 325 MG/TAB TABLET PO SCH (09:12)
[2017-08-24] MEDS: NITROGLYCERIN 30 GM TUBE TP SCH ×2 (09:14→21:11)
[2017-08-24] MEDS ORDERED: FEE PK DOSING 1 MIN EA MC ONE (12:20)
[2017-08-24] MEDS: GLUCERNA 1.2 1,000 ML BOTTLE NG PRN (12:54)
[2017-08-24] MEDS: IV NS 0.9% 1,000 ML IV PRN (13:08)
[2017-08-24] MEDS: PIPERACILLIN /TAZOBACTAM 2.25 G in IV NS 0.9% 50 ML IV SCH ×2 (13:51→20:16)
[2017-08-24] MEDS: VANCOMYCIN 500 MG in IV NS 0.9% 100 ML IV SCH (13:51)
[2017-08-24 14:22] LABS: APPEARANCE,URINE CLEAR (CLEAR); BILIRUBIN,URINE NEGATIVE (NEGATIVE); BLOOD, URINE NEGATIVE Ery/uL (NEGATIVE); COLOR,URINE YELLOW (YELLOW); KETONES,URINE NEGATIVE (NEGATIVE); LEUKOCYTE ESTERASE ,URINE 2+ (NEGATIVE); NITRITE, URINE NEGATIVE (NEGATIVE); PROTEIN,URINE TRACE mg/dl (NEGATIVE); UGLUCOSE NEGATIVE (NEGATIVE); UROBILINOGEN,URINE 0.2 EU/dL (0.2)
[2017-08-24 15:09] LABS: BACTERIA,URINE 3+ /HPF (None Seen); RBC,URINE 0-2 /HPF (0-2); SQUAMOUS EPITHELIAL CELL,UR 0-2 /HPF (None Seen); WBC,URINE 51-80 /HPF (0-3); YEAST,URINE Few /HPF (None Seen)
[2017-08-25] VITALS (35 sets, daily range): BP systolic 105–152; BP diastolic 51–81
[2017-08-25] MEDS: VANCOMYCIN 500 MG in IV NS 0.9% 100 ML IV SCH ×2 (00:34→12:03)
[2017-08-25] MEDS: BLOOD SUGAR DIAGNOSTIC 1 EACH STRIP IN SCH ×4 (00:46→17:52)
[2017-08-25] MEDS: INSULIN REGULAR, HUMAN 100 UNIT/ML 3 ML VIAL SQ PRN ×3 (00:50→17:55)
[2017-08-25] MEDS: IPRATROPIUM NEB FS 0.5 MG/2.5 ML AMPUL.NEB NEB SCH ×4 (01:02→19:48)
[2017-08-25] MEDS: PIPERACILLIN /TAZOBACTAM 2.25 G in IV NS 0.9% 50 ML IV SCH ×4 (01:26→20:24)
[2017-08-25 05:14] LABS: CALCIUM, SERUM 8.7 mg/dL (8.5-10.1); CARBON DIOXIDE 28 mmol/L (21-32); CHLORIDE 99 mmol/L (98-107); CREATININE 1.1 mg/dL (0.6-1.3); GLUCOSE 112 mg/dL (74-106); POTASSIUM 4.6 mmol/L (3.5-5.1); SODIUM SERUM 133 mmol/L (136-145); UREA NITROGEN, BLOOD 31 mg/dL (7-18)
[2017-08-25] MEDS: ASPIRIN EC 81 MG TABLET.DR PO SCH (08:22)
[2017-08-25] MEDS: LACTOBACILLUS RHAMNOSUS GG 1 EACH CAP.SPRINK PO SCH ×2 (08:23→17:49)
[2017-08-25] MEDS: MAGNESIUM OXIDE 400 MG TABLET PO SCH (08:23)
[2017-08-25] MEDS: AMLODIPINE BESYLATE 5 MG TABLET PO SCH (08:23)
[2017-08-25] MEDS: FERROUS SULFATE (325 MG) 325 MG/TAB TABLET PO SCH (08:23)
[2017-08-25] MEDS: METOPROLOL SUCCINATE 50 MG TAB.SR.24H PO SCH (08:23)
[2017-08-25] MEDS: NITROGLYCERIN 30 GM TUBE TP SCH ×2 (08:27→21:24)
[2017-08-25] MEDS: GLUCERNA 1.2 1,000 ML BOTTLE NG PRN (13:18)
[2017-08-26] VITALS (38 sets, daily range): BP systolic 117–162; BP diastolic 59–97
[2017-08-26] MEDS: BLOOD SUGAR DIAGNOSTIC 1 EACH STRIP IN SCH ×5 (00:38→23:55)
[2017-08-26] MEDS: VANCOMYCIN 500 MG in IV NS 0.9% 100 ML IV SCH (00:55)
[2017-08-26] MEDS: PIPERACILLIN /TAZOBACTAM 2.25 G in IV NS 0.9% 50 ML IV SCH ×4 (00:56→19:20)
[2017-08-26] MEDS: IPRATROPIUM NEB FS 0.5 MG/2.5 ML AMPUL.NEB NEB SCH ×4 (01:30→19:47)
[2017-08-26 04:46] LABS: BASOPHILS % (AUTO) 0.3 % (0.0-2.0); EOSINOPHILS % (AUTO) 1.1 % (0.0-6.0); HEMATOCRIT 28 % (33-45); HEMOGLOBIN 9.3 g/dL (11.5-14.8); LYMPHOCYTES # (AUTO) 1.1 /CMM (0.8-4.8); LYMPHOCYTES % (AUTO) 9.8 % (20.0-44.0); MEAN CORPUSCULAR HGB CONC 33 g/dl (31.0-36.0); MEAN CORPUSCULAR VOLUME 84 fL (82-100); MONOCYTES # (AUTO) 0.6 /CMM (0.1-1.30); MONOCYTES % (AUTO) 5.3 % (2.0-12.0); NEUTROPHILS # (AUTO) 9.6 /CMM (1.8-8.9); NEUTROPHILS % (AUTO) 83.5 % (43.0-81.0); PLATELET COUNT (AUTO) 406 /CMM (150-450); RDW COEFFICIENT OF VARIATION 14.4 (11.5-15.0); RED BLOOD CELL COUNT(AUTO) 3.32 MIL/uL (4.0-5.2); WHITE BLOOD COUNT (AUTO) 11.5 K/uL (4.3-11.0)
[2017-08-26 05:01] LABS: CALCIUM, SERUM 8.3 mg/dL (8.5-10.1); CARBON DIOXIDE 25 mmol/L (21-32); CHLORIDE 97 mmol/L (98-107); CREATININE 1.1 mg/dL (0.6-1.3); GLUCOSE 185 mg/dL (74-106); MAGNESIUM 2.2 mg/dL (1.8-2.4); PHOSPHORUS 4.4 mg/dL (2.5-4.9); POTASSIUM 4.5 mmol/L (3.5-5.1); SODIUM SERUM 131 mmol/L (136-145); UREA NITROGEN, BLOOD 29 mg/dL (7-18)
[2017-08-26] MEDS: IV NS 0.9% 1,000 ML IV PRN (05:29)
[2017-08-26] MEDS: METOPROLOL SUCCINATE 50 MG TAB.SR.24H PO SCH (08:14)
[2017-08-26] MEDS: AMLODIPINE BESYLATE 5 MG TABLET PO SCH (08:14)
[2017-08-26] MEDS: NITROGLYCERIN 30 GM TUBE TP SCH ×2 (08:15→20:32)
[2017-08-26] MEDS: FERROUS SULFATE (325 MG) 325 MG/TAB TABLET PO SCH (13:01)
[2017-08-26] MEDS: ASPIRIN EC 81 MG TABLET.DR PO SCH (13:01)
[2017-08-26] MEDS: LACTOBACILLUS RHAMNOSUS GG 1 EACH CAP.SPRINK PO SCH ×2 (13:01→16:36)
[2017-08-26] MEDS: MAGNESIUM OXIDE 400 MG TABLET PO SCH (13:04)
[2017-08-26] MEDS ORDERED: VANCOMYCIN 500 MG in IV D5W 100 ML IV SCH (18:00)
[2017-08-26] MEDS: GLUCERNA 1.2 1,000 ML BOTTLE NG PRN (18:27)
[2017-08-26] MEDS: INSULIN REGULAR, HUMAN 100 UNIT/ML 3 ML VIAL SQ PRN (23:57)
[2017-08-27] VITALS (32 sets, daily range): BP systolic 93–150; BP diastolic 48–91
[2017-08-27] MEDS: IPRATROPIUM NEB FS 0.5 MG/2.5 ML AMPUL.NEB NEB SCH ×4 (01:08→20:11)
[2017-08-27] MEDS: PIPERACILLIN /TAZOBACTAM 2.25 G in IV NS 0.9% 50 ML IV SCH ×4 (01:43→20:34)
[2017-08-27 05:05] LABS: INR 0.99 (0.87-1.13)
[2017-08-27 05:13] LABS: CALCIUM, SERUM 8.5 mg/dL (8.5-10.1); CARBON DIOXIDE 25 mmol/L (21-32); CHLORIDE 97 mmol/L (98-107); GLUCOSE 172 mg/dL (74-106); MAGNESIUM 2.3 mg/dL (1.8-2.4); PHOSPHORUS 4.7 mg/dL (2.5-4.9); POTASSIUM 4.3 mmol/L (3.5-5.1); SODIUM SERUM 132 mmol/L (136-145); UREA NITROGEN, BLOOD 25 mg/dL (7-18)
[2017-08-27 05:19] LABS: BASOPHILS # (AUTO) 0.1 /CMM (0.0-0.2); BASOPHILS % (AUTO) 0.5 % (0.0-2.0); EOSINOPHILS % (AUTO) 1.5 % (0.0-6.0); HEMATOCRIT 29 % (33-45); HEMOGLOBIN 9.3 g/dL (11.5-14.8); LYMPHOCYTES # (AUTO) 0.9 /CMM (0.8-4.8); LYMPHOCYTES % (AUTO) 7.5 % (20.0-44.0); MEAN CORPUSCULAR HGB CONC 33 g/dl (31.0-36.0); MEAN CORPUSCULAR VOLUME 84 fL (82-100); MONOCYTES # (AUTO) 0.7 /CMM (0.1-1.30); MONOCYTES % (AUTO) 5.5 % (2.0-12.0); NEUTROPHILS # (AUTO) 10.4 /CMM (1.8-8.9); PLATELET COUNT (AUTO) 479 /CMM (150-450); RDW COEFFICIENT OF VARIATION 14.4 (11.5-15.0); WHITE BLOOD COUNT (AUTO) 12.2 K/uL (4.3-11.0)
[2017-08-27] MEDS: BLOOD SUGAR DIAGNOSTIC 1 EACH STRIP IN SCH ×4 (05:25→23:48)
[2017-08-27] MEDS: INSULIN REGULAR, HUMAN 100 UNIT/ML 3 ML VIAL SQ PRN ×4 (05:26→23:49)
[2017-08-27] MEDS: METOPROLOL SUCCINATE 50 MG TAB.SR.24H PO SCH (09:00)
[2017-08-27] MEDS: LACTOBACILLUS RHAMNOSUS GG 1 EACH CAP.SPRINK PO SCH (09:27)
[2017-08-27] MEDS: MAGNESIUM OXIDE 400 MG TABLET PO SCH (09:27)
[2017-08-27] MEDS: AMLODIPINE BESYLATE 5 MG TABLET PO SCH (09:27)
[2017-08-27] MEDS: FERROUS SULFATE (325 MG) 325 MG/TAB TABLET PO SCH (09:28)
[2017-08-27] MEDS: NITROGLYCERIN 30 GM TUBE TP SCH ×2 (09:28→20:35)
[2017-08-27] MEDS: ASPIRIN EC 81 MG TABLET.DR PO SCH (09:29)
[2017-08-27] MEDS ORDERED: MAG HYDROX/AL HYDROX/SIMETH 30 ML UDC GT PRN (10:29)
[2017-08-27] MEDS ORDERED: MAGNESIUM HYDROXIDE 30 ML UDC GT PRN (10:30)
[2017-08-27] MEDS ORDERED: HYDROCODONE/APAP 5/325MG 1 EACH TABLET GT PRN (10:33)
[2017-08-27] MEDS ORDERED: ACETAMINOPHEN 650 MG/20.3 ML UDC GT PRN (11:00)
[2017-08-27] MEDS: LACTOBACILLUS RHAMNOSUS GG 1 EACH CAP.SPRINK GT SCH (18:05)
[2017-08-27] MEDS: GLUCERNA 1.2 1,000 ML BOTTLE NG PRN (18:06)
[2017-08-27] MEDS: IV NS 0.9% 1,000 ML IV PRN (18:06)
[2017-08-27] MEDS: METOPROLOL TARTRATE 25 MG TABLET GT SCH (20:35)
[2017-08-28] VITALS (36 sets, daily range): BP systolic 101–156; BP diastolic 57–88
[2017-08-28] MEDS: IPRATROPIUM NEB FS 0.5 MG/2.5 ML AMPUL.NEB NEB SCH ×4 (02:10→19:44)
[2017-08-28] MEDS: PIPERACILLIN /TAZOBACTAM 2.25 G in IV NS 0.9% 50 ML IV SCH ×4 (02:16→20:27)
[2017-08-28 05:15] LABS: CALCIUM, SERUM 8.5 mg/dL (8.5-10.1); CARBON DIOXIDE 25 mmol/L (21-32); CHLORIDE 97 mmol/L (98-107); CREATININE 1.1 mg/dL (0.6-1.3); GLUCOSE 141 mg/dL (74-106); POTASSIUM 4.4 mmol/L (3.5-5.1); SODIUM SERUM 132 mmol/L (136-145); UREA NITROGEN, BLOOD 26 mg/dL (7-18)
[2017-08-28] MEDS: INSULIN REGULAR, HUMAN 100 UNIT/ML 3 ML VIAL SQ PRN ×3 (05:32→17:28)
[2017-08-28] MEDS: BLOOD SUGAR DIAGNOSTIC 1 EACH STRIP IN SCH ×3 (05:38→17:25)
[2017-08-28] MEDS: LACTOBACILLUS RHAMNOSUS GG 1 EACH CAP.SPRINK GT SCH ×2 (08:43→17:31)
[2017-08-28] MEDS: METOPROLOL TARTRATE 25 MG TABLET GT SCH ×2 (08:43→20:28)
[2017-08-28] MEDS: AMLODIPINE BESYLATE 5 MG TABLET GT SCH (08:43)
[2017-08-28] MEDS: MAGNESIUM OXIDE 400 MG TABLET GT SCH (08:43)
[2017-08-28] MEDS: FERROUS SULFATE (325 MG) 325 MG/TAB TABLET PO SCH (08:44)
[2017-08-28] MEDS: NITROGLYCERIN 30 GM TUBE TP SCH ×2 (08:44→20:29)
[2017-08-28] MEDS: ASPIRIN EC 81 MG TABLET.DR PO SCH (08:44)
[2017-08-28] MEDS ORDERED: MIDAZOLAM HCL 2 MG/2ML VIAL ONE (12:23)
[2017-08-28] MEDS ORDERED: ROCURONIUM BROMIDE 50 MG/5 ML ONE (12:24)
[2017-08-28] MEDS ORDERED: CELLULOSE,OXIDIZED 1 EA PACK MC ONE (12:58)
[2017-08-28] MEDS: GLUCERNA 1.2 1,000 ML BOTTLE NG PRN (20:31)
[2017-08-28] MEDS: IV NS 0.9% 1,000 ML IV PRN (20:31)
[2017-08-29] VITALS (26 sets, daily range): BP systolic 113–168; BP diastolic 55–90
[2017-08-29] MEDS: BLOOD SUGAR DIAGNOSTIC 1 EACH STRIP IN SCH ×4 (00:14→16:54)
[2017-08-29] MEDS: INSULIN REGULAR, HUMAN 100 UNIT/ML 3 ML VIAL SQ PRN ×4 (00:17→17:03)
[2017-08-29] MEDS: IPRATROPIUM NEB FS 0.5 MG/2.5 ML AMPUL.NEB NEB SCH ×3 (01:35→12:39)
[2017-08-29] MEDS: PIPERACILLIN /TAZOBACTAM 2.25 G in IV NS 0.9% 50 ML IV SCH ×3 (02:13→13:17)
[2017-08-29 04:47] LABS: CALCIUM, SERUM 8.4 mg/dL (8.5-10.1); CARBON DIOXIDE 26 mmol/L (21-32); CHLORIDE 99 mmol/L (98-107); GLUCOSE 144 mg/dL (74-106); POTASSIUM 4.3 mmol/L (3.5-5.1); SODIUM SERUM 133 mmol/L (136-145); UREA NITROGEN, BLOOD 23 mg/dL (7-18)
[2017-08-29] MEDS: LACTOBACILLUS RHAMNOSUS GG 1 EACH CAP.SPRINK GT SCH ×2 (08:11→16:21)
[2017-08-29] MEDS: AMLODIPINE BESYLATE 5 MG TABLET GT SCH (08:12)
[2017-08-29] MEDS: MAGNESIUM OXIDE 400 MG TABLET GT SCH (08:12)
[2017-08-29] MEDS: METOPROLOL TARTRATE 25 MG TABLET GT SCH (08:12)
[2017-08-29] MEDS: NITROGLYCERIN 30 GM TUBE TP SCH (08:13)
[2017-08-29] MEDS ORDERED: LOSARTAN POTASSIUM 25 MG TABLET PO SCH (09:00)
[2017-08-29] MEDS ORDERED: NOREPINEPHRINE 16 MG in IV NS 0.9% 500 ML IV PRN (09:01)
[2017-08-29] MEDS: GLUCERNA 1.2 1,000 ML BOTTLE NG PRN (16:23)
== END 2017-08-29 18:00 | DRG 5 ==
LOC: ER 22:00 → TELE 08-13 01:15 → MED 08-13 08:54 → ICU 08-14 08:23
PROVIDERS: ADMIT Internal Medicine; ATTEND Internal Medicine
PROC: 02HV33Z Insertion of Infusion Device into Superior Vena Cava, Percutaneous Approach (ICD-10-PCS; principal; 2017-08-14)
PROC: 5A1955Z Respiratory Ventilation, Greater than 96 Consecutive Hours (ICD-10-PCS; principal; 2017-08-14)
PROC: 05HP33Z Insertion of Infusion Device into Right External Jugular Vein, Percutaneous Approach (ICD-10-PCS; principal; 2017-08-14)
PROC: 0BH17EZ Insertion of Endotracheal Airway into Trachea, Via Natural or Artificial Opening (ICD-10-PCS; principal; 2017-08-14)
PROC: 5A12012 Performance of Cardiac Output, Single, Manual (ICD-10-PCS; principal; 2017-08-14)
PROC: 0DH63UZ Insertion of Feeding Device into Stomach, Percutaneous Approach (ICD-10-PCS; 2017-08-26)
PROC: 0B110F4 Bypass Trachea to Cutaneous with Tracheostomy Device, Open Approach (ICD-10-PCS; 2017-08-28)
DX: J69.0 Pneumonitis due to inhalation of food and vomit (principal); N17.0 Acute kidney failure with tubular necrosis; I21.4 Non-ST elevation (NSTEMI) myocardial infarction; I46.9 Cardiac arrest, cause unspecified; G92 Toxic encephalopathy; L89.150 Pressure ulcer of sacral region, unstageable; R53.2 Functional quadriplegia; E46 Unspecified protein-calorie malnutrition; D68.59 Other primary thrombophilia; F03.90 Unspecified dementia, unspecified severity, without behavioral disturbance, psychotic disturbance, mood disturbance, and anxiety; I42.9 Cardiomyopathy, unspecified; I95.9 Hypotension, unspecified; E11.22 Type 2 diabetes mellitus with diabetic chronic kidney disease; R13.10 Dysphagia, unspecified; J96.00 Acute respiratory failure, unspecified whether with hypoxia or hypercapnia; E83.52 Hypercalcemia; E86.0 Dehydration; I12.9 Hypertensive chronic kidney disease with stage 1 through stage 4 chronic kidney disease, or unspecified chronic kidney disease; N18.9 Chronic kidney disease, unspecified; E78.5 Hyperlipidemia, unspecified; D72.829 Elevated white blood cell count, unspecified; E11.65 Type 2 diabetes mellitus with hyperglycemia; R53.81 Other malaise; H54.8 Legal blindness, as defined in USA; E86.9 Volume depletion, unspecified; F09 Unspecified mental disorder due to known physiological condition; Z74.01 Bed confinement status; E83.42 Hypomagnesemia; E87.6 Hypokalemia; B96.1 Klebsiella pneumoniae [K. pneumoniae] as the cause of diseases classified elsewhere; H35.52 Pigmentary retinal dystrophy; L89.620 Pressure ulcer of left heel, unstageable; L89.610 Pressure ulcer of right heel, unstageable; L85.3 Xerosis cutis; L60.3 Nail dystrophy; Z66 Do not resuscitate; K29.70 Gastritis, unspecified, without bleeding; K29.80 Duodenitis without bleeding; K44.9 Diaphragmatic hernia without obstruction or gangrene; E83.39 Other disorders of phosphorus metabolism; K21.9 Gastro-esophageal reflux disease without esophagitis; B37.49 Other urogenital candidiasis
CPT/HCPCS: 31720; 36415; 36569; 36600; 43246; 70450-TC; 71045-TC; 76770-TC; 80048-TC; 80053-TC; 80061-TC; 80076-TC; 80202-TC; 81000-TC; 82140-TC; 82306; 82550-TC; 82570-TC; 82652; 82803-TC; 82962-TC; 83735-TC; 83970; 84100-TC; 84155; 84155-TC; 84165; 84300-TC; 84443-TC; 84484-TC; 85025-TC; 85610-TC; 85730-TC; 87040-TC; 87070-TC; 87081-TC; 87086-TC; 87186-TC; 92950-TC; 93307-TC; 94002-TC; 94003-TC; 94640-TC; 94760-TC; 94762-TC; 95819-TC; 99082-TC; A4216; A4606; A6253; A6403; A7526; C1751; G0480; J0171; J0360; J0696; J1644; J1815; J1956; J2250; J2543; J2704; J3370; J3475; J3480; J3490; J7030; J7060; Z7610

== ENCOUNTER 2017-08-29 19:49 | Inpatient (IN) | END 2018-04-21 23:59 | disposition still patient (30) | DRG 166 | DX: J96.10 Chronic respiratory failure, unspecified whether with hypoxia or hypercapnia (principal); L89.894 Pressure ulcer of other site, stage 4; L89.154 Pressure ulcer of sacral region, stage 4; R53.2 Functional quadriplegia; E43 Unspecified severe protein-calorie malnutrition; J69.0 Pneumonitis due to inhalation of food and vomit; N17.0 Acute kidney failure with tubular necrosis; I21.4 Non-ST elevation (NSTEMI) myocardial infarction; A41.9 Sepsis, unspecified organism; B37.1 Pulmonary candidiasis; D68.59 Other primary thrombophilia; G93.1 Anoxic brain damage, not elsewhere classified; Z99.11 Dependence on respirator [ventilator] status; I42.9 Cardiomyopathy, unspecified; I70.262 Atherosclerosis of native arteries of extremities with gangrene, left leg; M86.9 Osteomyelitis, unspecified; B37.49 Other urogenital candidiasis; E11.52 Type 2 diabetes mellitus with diabetic peripheral angiopathy with gangrene; I10 Essential (primary) hypertension; Z86.74 Personal history of sudden cardiac arrest; R13.10 Dysphagia, unspecified; Z93.1 Gastrostomy status; Z93.0 Tracheostomy status; D72.829 Elevated white blood cell count, unspecified; E86.0 Dehydration; E83.52 Hypercalcemia; E87.6 Hypokalemia; E83.39 Other disorders of phosphorus metabolism; B95.62 Methicillin resistant Staphylococcus aureus infection as the cause of diseases classified elsewhere; E78.5 Hyperlipidemia, unspecified; F03.90 Unspecified dementia, unspecified severity, without behavioral disturbance, psychotic disturbance, mood disturbance, and anxiety; Z66 Do not resuscitate; Z68.22 Body mass index [BMI] 22.0-22.9, adult; B96.1 Klebsiella pneumoniae [K. pneumoniae] as the cause of diseases classified elsewhere; K29.80 Duodenitis without bleeding; K29.70 Gastritis, unspecified, without bleeding; H54.8 Legal blindness, as defined in USA; H35.52 Pigmentary retinal dystrophy; I25.10 Atherosclerotic heart disease of native coronary artery without angina pectoris; J44.9 Chronic obstructive pulmonary disease, unspecified; K44.9 Diaphragmatic hernia without obstruction or gangrene; L89.320 Pressure ulcer of left buttock, unstageable; L89.310 Pressure ulcer of right buttock, unstageable; M24.562 Contracture, left knee; M24.561 Contracture, right knee; L97.529 Non-pressure chronic ulcer of other part of left foot with unspecified severity ==

== ENCOUNTER 2018-04-22 | Inpatient (IN) | payer MEDICARE, MEDICAID ==
[~2018-04-22] VITALS: Ht 157.5 cm; Wt 70.8 kg
[~2018-04-22] MED LIST changes: -AMLO5TAB7 PO; +AMLO5TAB9 PO; -LOSA25TA13 PO; +LOSA25TA27 PO; +MAGN400T8 PO; -METO-356 PO; +METO25TA4 PO
[2018-04-23] MEDS ORDERED: HYDROGEN PEROXIDE 480 ML BOTTLE TP PRN (09:00)
[2018-04-23] MEDS ORDERED: CEFTRIAXONE 1 G in IV D5W 50 ML IV SCH (09:00)
[2018-04-23] MEDS: DOCUSATE SODIUM LIQ 100 MG/10 ML UDC GT SCH (09:00)
[2018-04-23] MEDS: ACETAMINOPHEN 650 MG/20.3 ML UDC PO SCH ×2 (09:00→21:42)
[2018-04-23] MEDS: NYSTATIN/TRIAMCIN OINT 30 GM TUBE TP SCH (09:00)
[2018-04-23] MEDS: DAKINS HALF STRENGTH (0.25%) 480 ML BOTTLE TOP SCH (09:00)
[2018-04-23] MEDS: SENNOSIDES 8.6 MG TABLET GT SCH ×2 (09:00→21:42)
[2018-04-23] MEDS: ACIDOPHILUS/BULGARICUS 1 EACH TAB.CHEW GT SCH ×2 (09:00→21:42)
[2018-04-23] MEDS: MULTIVIT W/MINERALS 1 TAB TABLET GT SCH (09:00)
[2018-04-23] MEDS: MAGNESIUM OXIDE 400 MG TABLET GT SCH (09:00)
[2018-04-23] MEDS: ASCORBIC ACID 500 MG TABLET GT SCH (09:00)
[2018-04-23] MEDS: AMLODIPINE BESYLATE 5 MG TABLET GT SCH (09:00)
[2018-04-23] MEDS: ZINC SULFATE 220 MG CAPSULE GT SCH (09:00)
[2018-04-23] MEDS ORDERED: DEXTROSE 50%-WATER 50 ML DISP.SYRIN IV PRN (09:00)
[2018-04-23] MEDS: VITS A AND D/WHITE PET/LANOLIN 5 GM PACKET TP SCH ×2 (09:00→22:00)
[2018-04-23] MEDS: METOPROLOL TARTRATE 25 MG TABLET GT SCH ×2 (09:00→21:42)
[2018-04-23] MEDS: PROSOURCE / PROSTAT (PYXIS) 30 ML UDC GT SCH ×2 (09:00→16:53)
[2018-04-23] MEDS ORDERED: DAKINS HALF STRENGTH (0.25%) 480 ML BOTTLE TOP PRN (09:00)
[2018-04-23] MEDS: Z GUARD REMEDY 4 OZ OINT TP SCH ×2 (09:00→22:00)
[2018-04-23] MEDS: HYDROGEN PEROXIDE 480 ML BOTTLE TP SCH ×2 (09:00→21:42)
--- NOTE | 2018-04-23 09:49 | NUR ---
Please see resident's previous account [id number] for all assessments and nurses notes. Originally admitted on 08/29/2017.
[2018-04-23] MEDS: GLUCERNA 1.2 1,000 ML BOTTLE GT PRN ×2 (10:09→23:11)
--- NOTE | 2018-04-23 10:28 | NUR ---
Please see resident's previous account [id number] for Social Service assessments, evaluations and notes.
--- NOTE | 2018-04-23 10:30 | NUR ---
RT RECD PT TRACHED INTACT AND SECURED BIRDIE ORDERED SETTINGS. ALARMS ON AND AUDIBLE BAG AND MASK AT HOB. VENT PLUGGED IN RED OUTLET. TXS GIVEN BIRDIE'D WLL NO ADVERSE REACTION NOTED ATT SX THIN PALE YELLOW- CLEAR MODERATE SECRETIONS. NO RESP DISTRESS WILL CONT TO MONITOR Addendum: 04/23/18 at 1031 by ASHLEY MOORE RT Amended: Links added.
[2018-04-23] MEDS: INSULIN REGULAR, HUMAN 100 UNIT/ML 3 ML VIAL SQ PRN ×2 (12:23→17:37)
[2018-04-23] MEDS: BLOOD SUGAR DIAGNOSTIC 1 EACH STRIP IN SCH ×2 (12:23→17:36)
[2018-04-23 12:40] VITALS: BP 137/66
[2018-04-23] MEDS: CEFTRIAXONE 1 G in IV D5W 50 ML IV SCH (13:00)
[2018-04-23] MEDS: IPRATROPIUM NEB FS 0.5 MG/2.5 ML AMPUL.NEB NEB SCH ×2 (13:41→20:02)
--- NOTE | 2018-04-23 15:20 | NUR ---
sawmill relief worker met with the resident's daughter Jennifer Hernandez to complete intake paperwork (patient rights acknowledgement, documentation of preferred intensity of care, conditions of admission, [place] Standard Admission Agreement, An Important Message from Medicare about Your Rights, and voluntary prior express consent form). sawmill relief worker educated the resident's daughter on advanced healthcare directives/conservatorship. Resident's daughter noted that she has been the primary decision maker but has no legal paperwork (no advanced healthcare directive/conservatorship).She declined to file for conservatorship at this time and resident is not alert to complete advanced healthcare directive. Per resident's daughter, she wishes for the resident to be DNR code status (Supportive Care Only and No CPR, NO blood transfusions and NO dialysis). sawmill relief worker informed the charge nurse.
[2018-04-23 19:39] VITALS: BP 142/58
[2018-04-23] MEDS: INSULIN DETEMIR 100 UNIT/ML CARTRIDGE SQ SCH (22:51)
[2018-04-24 00:01] VITALS: BP 140/62
[2018-04-24] MEDS: BLOOD SUGAR DIAGNOSTIC 1 EACH STRIP IN SCH ×5 (00:45→23:53)
[2018-04-24] MEDS: INSULIN REGULAR, HUMAN 100 UNIT/ML 3 ML VIAL SQ PRN ×5 (00:46→23:54)
[2018-04-24] MEDS: IPRATROPIUM NEB FS 0.5 MG/2.5 ML AMPUL.NEB NEB SCH ×4 (01:50→20:03)
[2018-04-24 06:36] VITALS: BP 134/69
--- NOTE | 2018-04-24 07:46 | NUR ---
Female trach pt received on a mechanical vent. Pt parisa is secure. Vent is plugged into a red outlet, alarms are set and audible, and BMV is at bedside. Addendum: 04/24/18 at 0747 by SHIMA GONZALES RT Amended: Links added.
[2018-04-24 07:47] VITALS: BP 148/79
[2018-04-24] MEDS: DOCUSATE SODIUM LIQ 100 MG/10 ML UDC GT SCH (09:07)
[2018-04-24] MEDS: ACIDOPHILUS/BULGARICUS 1 EACH TAB.CHEW GT SCH ×2 (09:08→20:21)
[2018-04-24] MEDS: METOPROLOL TARTRATE 25 MG TABLET GT SCH ×2 (09:09→20:21)
[2018-04-24] MEDS: AMLODIPINE BESYLATE 5 MG TABLET GT SCH (09:09)
[2018-04-24] MEDS: ASCORBIC ACID 500 MG TABLET GT SCH (09:10)
[2018-04-24] MEDS: MULTIVIT W/MINERALS 1 TAB TABLET GT SCH (09:10)
[2018-04-24] MEDS: PROSOURCE / PROSTAT (PYXIS) 30 ML UDC GT SCH ×2 (09:10→16:52)
[2018-04-24] MEDS: SENNOSIDES 8.6 MG TABLET GT SCH ×2 (09:10→20:21)
[2018-04-24] MEDS: ACETAMINOPHEN 650 MG/20.3 ML UDC PO SCH ×2 (09:11→20:21)
[2018-04-24] MEDS: ZINC SULFATE 220 MG CAPSULE GT SCH (09:11)
[2018-04-24] MEDS: NYSTATIN/TRIAMCIN OINT 30 GM TUBE TP SCH (09:12)
[2018-04-24] MEDS: HYDROGEN PEROXIDE 480 ML BOTTLE TP SCH ×2 (09:12→20:22)
[2018-04-24] MEDS: DAKINS HALF STRENGTH (0.25%) 480 ML BOTTLE TOP SCH (09:12)
[2018-04-24] MEDS: Z GUARD REMEDY 4 OZ OINT TP SCH ×2 (09:12→20:22)
[2018-04-24] MEDS: VITS A AND D/WHITE PET/LANOLIN 5 GM PACKET TP SCH ×2 (09:13→20:22)
[2018-04-24] MEDS: MAGNESIUM OXIDE 400 MG TABLET GT SCH (09:14)
[2018-04-24 12:00] VITALS: BP 138/76
[2018-04-24] MEDS: CEFTRIAXONE 1 G in IV D5W 50 ML IV SCH (12:46)
[2018-04-24] MEDS: GLUCERNA 1.2 1,000 ML BOTTLE GT PRN (17:09)
[2018-04-24 18:19] VITALS: BP 135/70
--- NOTE | 2018-04-24 18:55 | NUR ---
Order obtained from Dr. 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 Last wound culture showed moderate growth of P. Mirabilis collected on 04/05/18. Pt afebrile, left metatarsal wound clean, no drainage noted. Pt's daughter Jennifer notified of new order, appreciative of call.
--- NOTE | 2018-04-24 20:30 | NUR ---
Seen by AVERY Mata no new order.
[2018-04-24 20:48] VITALS: BP 145/61
--- NOTE | 2018-04-24 20:50 | NUR ---
RT NOTE PATIENT RECEIVED TRACHED ON MECHANICAL VENTILATION. AMBU BAG/BACK UP TRACH @ BEDSIDE. TX GIVEN, NO ADVERSE REACTIONS NOTED. SX DONE, MODERATE THICK WHITE SECRETIONS NOTED. ALARMS ON AND AUDIBLE. PATIENT STABLE. WILL MONITOR T/O SHIFT. Addendum: 04/24/18 at 2049 by MANOLO MCDONNELL RT Amended: Links added.
[2018-04-24] MEDS: INSULIN DETEMIR 100 UNIT/ML CARTRIDGE SQ SCH (21:15)
[2018-04-25 00:33] VITALS: BP 116/57
[2018-04-25] MEDS: IPRATROPIUM NEB FS 0.5 MG/2.5 ML AMPUL.NEB NEB SCH ×4 (01:59→19:38)
[2018-04-25] MEDS: BLOOD SUGAR DIAGNOSTIC 1 EACH STRIP IN SCH ×4 (05:34→23:32)
[2018-04-25] MEDS: GLUCERNA 1.2 1,000 ML BOTTLE GT PRN ×2 (05:34→17:51)
[2018-04-25] MEDS: INSULIN REGULAR, HUMAN 100 UNIT/ML 3 ML VIAL SQ PRN ×4 (05:35→23:32)
[2018-04-25 06:10] VITALS: BP 134/63
[2018-04-25 08:03] VITALS: BP 122/51
--- NOTE | 2018-04-25 08:27 | NUR ---
PT REC'D TRACHED ON [facility] VENT ON AC MODE. NO RESP DISTRESS OR SOB NOTED. SX'D FOR THIN MINIMAL AMT OF CLEAR SECRETIONS. TRACH PATENT AND SECURED. ALARMS ARE SET AND AUDIBLE, VENT PLUGGED INTO RED OUTLET, AMBU BAG BEDSIDE. WILL CONTINUE TO MONITOR. Addendum: 04/25/18 at 1643 by TALA YAO RT Amended: Links added.
[2018-04-25] MEDS: AMLODIPINE BESYLATE 5 MG TABLET GT SCH (09:00)
[2018-04-25] MEDS: METOPROLOL TARTRATE 25 MG TABLET GT SCH ×2 (09:00→20:48)
[2018-04-25] MEDS: ACETAMINOPHEN 650 MG/20.3 ML UDC PO SCH ×2 (09:16→20:49)
[2018-04-25] MEDS: VITS A AND D/WHITE PET/LANOLIN 5 GM PACKET TP SCH ×2 (09:16→20:49)
[2018-04-25] MEDS: Z GUARD REMEDY 4 OZ OINT TP SCH ×2 (09:16→20:49)
[2018-04-25] MEDS: DAKINS HALF STRENGTH (0.25%) 480 ML BOTTLE TOP SCH (09:16)
[2018-04-25] MEDS: HYDROGEN PEROXIDE 480 ML BOTTLE TP SCH ×2 (09:16→20:49)
[2018-04-25] MEDS: ZINC SULFATE 220 MG CAPSULE GT SCH (09:16)
[2018-04-25] MEDS: NYSTATIN/TRIAMCIN OINT 30 GM TUBE TP SCH (09:16)
[2018-04-25] MEDS: ASCORBIC ACID 500 MG TABLET GT SCH (09:17)
[2018-04-25] MEDS: MULTIVIT W/MINERALS 1 TAB TABLET GT SCH (09:17)
[2018-04-25] MEDS: PROSOURCE / PROSTAT (PYXIS) 30 ML UDC GT SCH ×2 (09:17→16:44)
[2018-04-25] MEDS: ACIDOPHILUS/BULGARICUS 1 EACH TAB.CHEW GT SCH ×2 (09:18→20:48)
[2018-04-25] MEDS: DOCUSATE SODIUM LIQ 100 MG/10 ML UDC GT SCH (09:19)
[2018-04-25] MEDS: SENNOSIDES 8.6 MG TABLET GT SCH ×2 (09:21→20:48)
[2018-04-25] MEDS: MAGNESIUM OXIDE 400 MG TABLET GT SCH (09:21)
[2018-04-25 12:00] VITALS: BP 110/60
[2018-04-25] MEDS: CEFTRIAXONE 1 G in IV D5W 50 ML IV SCH (13:00)
--- NOTE | 2018-04-25 13:00 | NUR ---
Seen and examined by AVERY Dodd without new order.
--- NOTE | 2018-04-25 14:10 | NUR ---
INTERDISCIPLINARY TEAM CONFERENCE (IDT) was held today. Resident's daughter Jennifer was not able to attend today's IDT meeting. Dr. Agarwal and the interdisciplinary team reviewed the current plan of care in detail. Orders as well as treatment and medications were reviewed. Resident's isolation was discontinued and she will be on antibiotics until 05/07/2018. No new orders were given during IDT meeting.
[2018-04-25 18:12] VITALS: BP 110/60
--- NOTE | 2018-04-25 18:21 | NUR ---
Seen by AVERY Mata, no new order given.
[2018-04-25 20:52] VITALS: BP 155/71
[2018-04-25] MEDS: INSULIN DETEMIR 100 UNIT/ML CARTRIDGE SQ SCH (21:31)
[2018-04-26 00:20] VITALS: BP 130/77
[2018-04-26] MEDS: IPRATROPIUM NEB FS 0.5 MG/2.5 ML AMPUL.NEB NEB SCH ×4 (01:56→19:57)
[2018-04-26] MEDS: BLOOD SUGAR DIAGNOSTIC 1 EACH STRIP IN SCH ×4 (05:32→23:22)
[2018-04-26] MEDS: MAGNESIUM HYDROXIDE 30 ML UDC GT PRN (05:32)
[2018-04-26] MEDS: INSULIN REGULAR, HUMAN 100 UNIT/ML 3 ML VIAL SQ PRN ×4 (05:33→23:23)
[2018-04-26 06:23] VITALS: BP 140/66
[2018-04-26] MEDS: BISACODYL SUPP (10 MG) 10 MG/SUPP.RECT SUPP.RECT RC PRN (06:24)
[2018-04-26 07:51] VITALS: BP 149/66
[2018-04-26] MEDS: MAGNESIUM OXIDE 400 MG TABLET GT SCH (09:00)
[2018-04-26] MEDS: ACETAMINOPHEN 650 MG/20.3 ML UDC PO SCH ×2 (09:00→20:55)
[2018-04-26] MEDS: PROSOURCE / PROSTAT (PYXIS) 30 ML UDC GT SCH ×2 (09:00→16:38)
[2018-04-26] MEDS: DOCUSATE SODIUM LIQ 100 MG/10 ML UDC GT SCH (09:00)
[2018-04-26] MEDS: AMLODIPINE BESYLATE 5 MG TABLET GT SCH (09:00)
[2018-04-26] MEDS: SENNOSIDES 8.6 MG TABLET GT SCH ×2 (09:00→20:55)
[2018-04-26] MEDS: MULTIVIT W/MINERALS 1 TAB TABLET GT SCH (09:00)
[2018-04-26] MEDS: DAKINS HALF STRENGTH (0.25%) 480 ML BOTTLE TOP SCH (09:00)
[2018-04-26] MEDS: ZINC SULFATE 220 MG CAPSULE GT SCH (09:00)
[2018-04-26] MEDS: ASCORBIC ACID 500 MG TABLET GT SCH (09:00)
[2018-04-26] MEDS: METOPROLOL TARTRATE 25 MG TABLET GT SCH ×2 (09:00→20:55)
[2018-04-26] MEDS: ACIDOPHILUS/BULGARICUS 1 EACH TAB.CHEW GT SCH ×2 (09:00→20:54)
[2018-04-26] MEDS: NYSTATIN TOP POWDER 15 GM BOTTLE TP SCH ×2 (09:01→20:55)
[2018-04-26] MEDS: NYSTATIN/TRIAMCIN OINT 30 GM TUBE TP SCH (09:01)
[2018-04-26] MEDS: Z GUARD REMEDY 4 OZ OINT TP SCH ×2 (09:01→20:55)
[2018-04-26] MEDS: HYDROGEN PEROXIDE 480 ML BOTTLE TP SCH ×2 (09:01→20:55)
[2018-04-26] MEDS: VITS A AND D/WHITE PET/LANOLIN 5 GM PACKET TP SCH ×2 (09:01→20:55)
[2018-04-26 12:47] VITALS: BP 138/70
[2018-04-26] MEDS: CEFTRIAXONE 1 G in IV D5W 50 ML IV SCH (13:00)
[2018-04-26 18:45] VITALS: BP 129/75
[2018-04-26] MEDS: GLUCERNA 1.2 1,000 ML BOTTLE GT PRN (19:00)
--- NOTE | 2018-04-26 19:57 | NUR ---
RT NOTE RECEIVED TRACH PT ON MECHANICAL VENTILATION ON NOTED SETTINGS PER MD ORDERS. AMBU BAG @ BEDSIDE. Q6 BREATHING TX GIVEN WITH NO ADVERSE REACTION NOTED. SX DONE PRN. ALARMS ON AND AUDIBLE. NO RESP DISTRESS AT THIS TIME. WILL CONT TO MONITOR PT. Addendum: 04/26/18 at 2131 by PREMA SOTO RT Amended: Links added.
[2018-04-26 19:58] VITALS: BP 142/69
[2018-04-26] MEDS: INSULIN DETEMIR 100 UNIT/ML CARTRIDGE SQ SCH (21:18)
[2018-04-27 00:41] VITALS: BP 130/77
[2018-04-27] MEDS: IPRATROPIUM NEB FS 0.5 MG/2.5 ML AMPUL.NEB NEB SCH ×4 (01:04→19:52)
[2018-04-27] MEDS: BLOOD SUGAR DIAGNOSTIC 1 EACH STRIP IN SCH ×3 (05:35→17:47)
[2018-04-27] MEDS: INSULIN REGULAR, HUMAN 100 UNIT/ML 3 ML VIAL SQ PRN ×3 (05:36→17:48)
[2018-04-27 06:21] VITALS: BP 135/85
[2018-04-27 07:32] VITALS: BP 140/73
--- NOTE | 2018-04-27 08:01 | NUR ---
PT REC'D TRACHED ON [facility] VENT ON AC MODE. NO RESP DISTRESS OR SOB NOTED. SX'D FOR THIN MINIMAL AMT OF CLEAR SECRETIONS. TRACH PATENT AND SECURED. ALARMS ARE SET AND AUDIBLE, VENT PLUGGED INTO RED OUTLET, AMBU BAG BEDSIDE. WILL CONTINUE TO MONITOR. Addendum: 04/27/18 at 1721 by HAIM CISSE RT Amended: Links added.
[2018-04-27] MEDS: NYSTATIN TOP POWDER 15 GM BOTTLE TP SCH ×2 (09:00→21:52)
[2018-04-27] MEDS: DAKINS HALF STRENGTH (0.25%) 480 ML BOTTLE TOP SCH (09:00)
[2018-04-27] MEDS: VITS A AND D/WHITE PET/LANOLIN 5 GM PACKET TP SCH ×2 (09:00→21:52)
[2018-04-27] MEDS: ACETAMINOPHEN 650 MG/20.3 ML UDC PO SCH ×2 (09:00→21:50)
[2018-04-27] MEDS: Z GUARD REMEDY 4 OZ OINT TP SCH ×2 (09:00→21:52)
[2018-04-27] MEDS: METOPROLOL TARTRATE 25 MG TABLET GT SCH ×2 (09:00→21:49)
[2018-04-27] MEDS: SENNOSIDES 8.6 MG TABLET GT SCH ×2 (09:00→21:49)
[2018-04-27] MEDS: MULTIVIT W/MINERALS 1 TAB TABLET GT SCH (09:00)
[2018-04-27] MEDS: MAGNESIUM OXIDE 400 MG TABLET GT SCH (09:00)
[2018-04-27] MEDS: DOCUSATE SODIUM LIQ 100 MG/10 ML UDC GT SCH (09:00)
[2018-04-27] MEDS: NYSTATIN/TRIAMCIN OINT 30 GM TUBE TP SCH (09:00)
[2018-04-27] MEDS: PROSOURCE / PROSTAT (PYXIS) 30 ML UDC GT SCH ×2 (09:00→16:56)
[2018-04-27] MEDS: ACIDOPHILUS/BULGARICUS 1 EACH TAB.CHEW GT SCH ×2 (09:00→21:48)
[2018-04-27] MEDS: ASCORBIC ACID 500 MG TABLET GT SCH (09:00)
[2018-04-27] MEDS: HYDROGEN PEROXIDE 480 ML BOTTLE TP SCH ×2 (09:00→21:51)
[2018-04-27] MEDS: AMLODIPINE BESYLATE 5 MG TABLET GT SCH (09:00)
[2018-04-27] MEDS: ZINC SULFATE 220 MG CAPSULE GT SCH (09:00)
[2018-04-27] MEDS: CEFTRIAXONE 1 G in IV D5W 50 ML IV SCH (13:00)
[2018-04-27] MEDS: GLUCERNA 1.2 1,000 ML BOTTLE GT PRN (14:46)
[2018-04-27 15:23] VITALS: BP 128/75
[2018-04-27 18:17] VITALS: BP 155/88
--- NOTE | 2018-04-27 19:52 | NUR ---
RT NOTE: RECEIVED TRACH PT ON [facility] VENT ON NOTED SETTINGS PER MD ORDERS. TRACH IS PATENT AND SECURED. PROGRESSIVE ASSEMBLER AND FITTER DONE. AMBU BAG @ BEDSIDE. Q6 BREATHING TX GIVEN WITH NO ADVERSE REACTION NOTED. SX DONE PRN. ALARMS ON AND AUDIBLE. NO RESP DISTRESS AT THIS TIME. WILL CONT TO MONITOR PT. Addendum: 04/28/18 at 0551 by PREMA SOTO RT Amended: Links added.
[2018-04-27 20:02] VITALS: BP 135/65
[2018-04-27] MEDS: INSULIN DETEMIR 100 UNIT/ML CARTRIDGE SQ SCH (22:47)
[2018-04-28] VITALS: BP 128/70
[2018-04-28] MEDS: BLOOD SUGAR DIAGNOSTIC 1 EACH STRIP IN SCH ×5 (00:54→23:28)
[2018-04-28] MEDS: INSULIN REGULAR, HUMAN 100 UNIT/ML 3 ML VIAL SQ PRN ×5 (00:55→23:29)
[2018-04-28] MEDS: IPRATROPIUM NEB FS 0.5 MG/2.5 ML AMPUL.NEB NEB SCH ×4 (01:38→19:30)
[2018-04-28 06:00] VITALS: BP 131/68
[2018-04-28 07:42] VITALS: BP 113/83
[2018-04-28] MEDS: DOCUSATE SODIUM LIQ 100 MG/10 ML UDC GT SCH (09:54)
[2018-04-28] MEDS: ACIDOPHILUS/BULGARICUS 1 EACH TAB.CHEW GT SCH ×2 (09:54→20:44)
[2018-04-28] MEDS: MAGNESIUM OXIDE 400 MG TABLET GT SCH (09:55)
[2018-04-28] MEDS: NYSTATIN/TRIAMCIN OINT 30 GM TUBE TP SCH (09:55)
[2018-04-28] MEDS: NYSTATIN TOP POWDER 15 GM BOTTLE TP SCH ×2 (09:55→21:17)
[2018-04-28] MEDS: ACETAMINOPHEN 650 MG/20.3 ML UDC PO SCH ×2 (09:55→20:44)
[2018-04-28] MEDS: MULTIVIT W/MINERALS 1 TAB TABLET GT SCH (09:55)
[2018-04-28] MEDS: AMLODIPINE BESYLATE 5 MG TABLET GT SCH (09:55)
[2018-04-28] MEDS: ASCORBIC ACID 500 MG TABLET GT SCH (09:55)
[2018-04-28] MEDS: ZINC SULFATE 220 MG CAPSULE GT SCH (09:55)
[2018-04-28] MEDS: Z GUARD REMEDY 4 OZ OINT TP SCH ×2 (09:55→21:17)
[2018-04-28] MEDS: PROSOURCE / PROSTAT (PYXIS) 30 ML UDC GT SCH ×2 (09:55→17:13)
[2018-04-28] MEDS: VITS A AND D/WHITE PET/LANOLIN 5 GM PACKET TP SCH ×2 (09:55→21:17)
[2018-04-28] MEDS: DAKINS HALF STRENGTH (0.25%) 480 ML BOTTLE TOP SCH (09:55)
[2018-04-28] MEDS: HYDROGEN PEROXIDE 480 ML BOTTLE TP SCH ×2 (09:55→21:16)
[2018-04-28] MEDS: SENNOSIDES 8.6 MG TABLET GT SCH ×2 (09:55→20:44)
[2018-04-28] MEDS: METOPROLOL TARTRATE 25 MG TABLET GT SCH ×2 (09:55→20:44)
[2018-04-28 12:00] VITALS: BP 113/83
[2018-04-28] MEDS: CEFTRIAXONE 1 G in IV D5W 50 ML IV SCH (12:29)
--- NOTE | 2018-04-28 15:37 | NUR ---
RT PATIENT RECEIVED TRACHED ON MECHANICAL VENTILATION ON SETTINGS ORDERED. AMBU BAG/BACK UP TRACH AT BEDSIDE. TX GIVEN, NO ADVERSE REACTIONS NOTED. SX DONE, MODERATE THIN WHITE SECRETIONS NOTED. ALARMS ON AND AUDIBLE. VENT PLUGGED IN RED OUTLET, PATIENT STABLE. WILL CONTINUE MONITOR. Addendum: 04/28/18 at 1538 by FLORINDA TSE RT Amended: Links added.
[2018-04-28 18:00] VITALS: BP 120/69
--- NOTE | 2018-04-28 18:15 | NUR ---
Glucerna 1.2 not available according to kitchen and vp strategic planning. Notified Dr Hunt. Received order to change feeding from Glucerna 1.2 to Glucerna 1.5 and DC Prostat per vp strategic planning's recommendation.
[2018-04-28 19:55] VITALS: BP 142/55
[2018-04-28] MEDS: INSULIN DETEMIR 100 UNIT/ML CARTRIDGE SQ SCH (21:20)
[2018-04-28] MEDS: GLUCERNA 1.5 1,000 ML BOTTLE GT PRN (21:56)
--- NOTE | 2018-04-28 22:05 | NUR ---
RT PATIENT RECEIVED TRACHED ON MECHANICAL VENTILATION ON SETTINGS ORDERED. AMBU BAG/BACK UP TRACH AT BEDSIDE. TX GIVEN, NO ADVERSE REACTIONS NOTED. SX DONE, MODERATE THICK WHITE SECRETIONS NOTED. ALARMS ON AND AUDIBLE. VENT PLUGGED IN RED OUTLET, PATIENT STABLE. WILL CONTINUE MONITOR. Addendum: 04/28/18 at 2206 by CHAZ ESTRELLA RT Amended: Links added.
[2018-04-29 00:28] VITALS: BP 128/64
[2018-04-29] MEDS: IPRATROPIUM NEB FS 0.5 MG/2.5 ML AMPUL.NEB NEB SCH ×4 (01:12→19:39)
[2018-04-29] MEDS: BLOOD SUGAR DIAGNOSTIC 1 EACH STRIP IN SCH ×4 (05:59→23:26)
[2018-04-29] MEDS: INSULIN REGULAR, HUMAN 100 UNIT/ML 3 ML VIAL SQ PRN ×4 (06:00→23:28)
[2018-04-29 06:23] VITALS: BP 130/60
--- NOTE | 2018-04-29 07:34 | NUR ---
RT NOTE PT RECEIVED ON [facility] VENT ON THE FOLLOWING NOTED SETTINGS. NO RESP DISTRESS OR SOB NOTED AT THIS TIME. PT SUCTIONED: MOD THIN YELLOW/WHITE SECRETIONS. BREATHING TX GIVEN, NO ADVERSE REACTIONS NOTED. VENT IS PLUGGED INTO RED OUTLET. VENT ALARMS ARE ON AND AUDIBLE. SPARE TRACH AND AMBU BAG ARE AT BEDSIDE. WILL CONT TO MONITOR. Addendum: 04/29/18 at 0735 by MEI SANTANA RT Amended: Links added.
[2018-04-29 07:38] VITALS: BP 162/70
[2018-04-29] MEDS: DOCUSATE SODIUM LIQ 100 MG/10 ML UDC GT SCH (08:51)
[2018-04-29] MEDS: METOPROLOL TARTRATE 25 MG TABLET GT SCH ×2 (08:51→20:51)
[2018-04-29] MEDS: ACIDOPHILUS/BULGARICUS 1 EACH TAB.CHEW GT SCH ×2 (08:51→20:51)
[2018-04-29] MEDS: ASCORBIC ACID 500 MG TABLET GT SCH (08:52)
[2018-04-29] MEDS: AMLODIPINE BESYLATE 5 MG TABLET GT SCH (08:52)
[2018-04-29] MEDS: SENNOSIDES 8.6 MG TABLET GT SCH ×2 (08:52→20:51)
[2018-04-29] MEDS: ZINC SULFATE 220 MG CAPSULE GT SCH (08:52)
[2018-04-29] MEDS: ACETAMINOPHEN 650 MG/20.3 ML UDC PO SCH ×2 (08:54→20:51)
[2018-04-29] MEDS: MAGNESIUM OXIDE 400 MG TABLET GT SCH (08:57)
[2018-04-29] MEDS: MULTIVIT W/MINERALS 1 TAB TABLET GT SCH (08:57)
[2018-04-29] MEDS: DAKINS HALF STRENGTH (0.25%) 480 ML BOTTLE TOP SCH (09:00)
[2018-04-29] MEDS: VITS A AND D/WHITE PET/LANOLIN 5 GM PACKET TP SCH ×2 (09:00→20:52)
[2018-04-29] MEDS: NYSTATIN/TRIAMCIN OINT 30 GM TUBE TP SCH (09:00)
[2018-04-29] MEDS: Z GUARD REMEDY 4 OZ OINT TP SCH ×2 (09:00→20:52)
[2018-04-29] MEDS: HYDROGEN PEROXIDE 480 ML BOTTLE TP SCH ×2 (09:00→20:52)
[2018-04-29] MEDS: NYSTATIN TOP POWDER 15 GM BOTTLE TP SCH ×2 (09:00→20:52)
[2018-04-29 12:05] VITALS: BP 122/64
--- NOTE | 2018-04-29 12:40 | NUR ---
Seen by ASSISTANT DIRECTOR Carole Dodd. She ordered to give Ceftriaxone 1 gm IV q 24 hours until 05/21/18 instead of until 05/07/18 for a total of 6 weeks for pt's left metatarsal wound infection.
[2018-04-29] MEDS: CEFTRIAXONE 1 G in IV D5W 50 ML IV SCH (13:00)
[2018-04-29] MEDS: GLUCERNA 1.5 1,000 ML BOTTLE GT PRN (18:10)
[2018-04-29 18:15] VITALS: BP 113/55
[2018-04-29 20:01] VITALS: BP 124/63
[2018-04-29] MEDS: INSULIN DETEMIR 100 UNIT/ML CARTRIDGE SQ SCH (21:42)
[2018-04-30 00:29] VITALS: BP 118/58
[2018-04-30] MEDS: IPRATROPIUM NEB FS 0.5 MG/2.5 ML AMPUL.NEB NEB SCH ×4 (01:17→20:19)
[2018-04-30] MEDS: BLOOD SUGAR DIAGNOSTIC 1 EACH STRIP IN SCH ×4 (06:01→23:25)
[2018-04-30] MEDS: INSULIN REGULAR, HUMAN 100 UNIT/ML 3 ML VIAL SQ PRN ×4 (06:02→23:26)
[2018-04-30 06:21] VITALS: BP 123/62
[2018-04-30 07:37] VITALS: BP 129/85
--- NOTE | 2018-04-30 07:55 | NUR ---
RT PT RECEIVED WITH A [employer] TRACH ON THE VENT WITH NOTED SETTINGS. PT IS RESPONDS TO STIMULI WHEN SX'D. VENT ALARMS ARE SET AND AUDIBLE WITH BVM BY BEDSIDE. METAL CASKET ASSEMBLER CUFF PRESSURE NOTED. VENT IS PLUGGED INTO RED OUTLET. HHN TX GIVEN WITH NO ADVERSE REACTIONS. NO RESPIRATORY DISTRESS NOTED AT THIS TIME, WILL CONTINUE TO MONITOR. Addendum: 04/30/18 at 0919 by ZAK SUAREZ RT Amended: Links added.
[2018-04-30] MEDS: METOPROLOL TARTRATE 25 MG TABLET GT SCH ×2 (09:00→20:57)
[2018-04-30] MEDS: VITS A AND D/WHITE PET/LANOLIN 5 GM PACKET TP SCH ×2 (09:00→20:57)
[2018-04-30] MEDS: NYSTATIN TOP POWDER 15 GM BOTTLE TP SCH ×2 (09:00→20:57)
[2018-04-30] MEDS: ACETAMINOPHEN 650 MG/20.3 ML UDC PO SCH ×2 (09:00→20:57)
[2018-04-30] MEDS: ASCORBIC ACID 500 MG TABLET GT SCH (09:00)
[2018-04-30] MEDS: SENNOSIDES 8.6 MG TABLET GT SCH ×2 (09:00→20:57)
[2018-04-30] MEDS: NYSTATIN/TRIAMCIN OINT 30 GM TUBE TP SCH (09:00)
[2018-04-30] MEDS: MULTIVIT W/MINERALS 1 TAB TABLET GT SCH (09:00)
[2018-04-30] MEDS: MAGNESIUM OXIDE 400 MG TABLET GT SCH (09:00)
[2018-04-30] MEDS: ZINC SULFATE 220 MG CAPSULE GT SCH (09:00)
[2018-04-30] MEDS: HYDROGEN PEROXIDE 480 ML BOTTLE TP SCH ×2 (09:00→20:57)
[2018-04-30] MEDS: ACIDOPHILUS/BULGARICUS 1 EACH TAB.CHEW GT SCH ×2 (09:00→20:56)
[2018-04-30] MEDS: DOCUSATE SODIUM LIQ 100 MG/10 ML UDC GT SCH (09:00)
[2018-04-30] MEDS: Z GUARD REMEDY 4 OZ OINT TP SCH ×2 (09:00→20:57)
[2018-04-30] MEDS: AMLODIPINE BESYLATE 5 MG TABLET GT SCH (09:00)
[2018-04-30] MEDS: GLUCERNA 1.5 1,000 ML BOTTLE GT PRN (12:25)
[2018-04-30] MEDS: CEFTRIAXONE 1 G in IV D5W 50 ML IV SCH (13:02)
[2018-04-30 15:07] VITALS: BP 129/85
[2018-04-30 18:33] VITALS: BP 122/70
[2018-04-30 20:54] VITALS: BP 145/62
[2018-04-30] MEDS: INSULIN DETEMIR 100 UNIT/ML CARTRIDGE SQ SCH (21:52)
[2018-05-01 00:25] VITALS: BP 126/58
[2018-05-01] MEDS: IPRATROPIUM NEB FS 0.5 MG/2.5 ML AMPUL.NEB NEB SCH ×4 (02:19→20:04)
--- NOTE | 2018-05-01 05:14 | NUR ---
RT RECD PT TRACHED INTACT AND SECURED ON ECH VENT BIRDIE ORDERED SETTINGS ALARMS ON AND AUDIBLE BAG AND MASK AT HOB TXS GIVEN NO ADVERSE REACTION NOTED ATT WILL CONT TO MONITOR NO RESP DISTRESS THROUGHOUT SHIFT
[2018-05-01] MEDS: INSULIN REGULAR, HUMAN 100 UNIT/ML 3 ML VIAL SQ PRN ×4 (06:18→23:53)
[2018-05-01] MEDS: BLOOD SUGAR DIAGNOSTIC 1 EACH STRIP IN SCH ×4 (06:18→23:52)
[2018-05-01 06:32] VITALS: BP 130/62
[2018-05-01 07:39] VITALS: BP 139/93
[2018-05-01] MEDS: VITS A AND D/WHITE PET/LANOLIN 5 GM PACKET TP SCH ×2 (09:00→21:21)
[2018-05-01] MEDS: Z GUARD REMEDY 4 OZ OINT TP SCH ×2 (09:00→21:21)
[2018-05-01] MEDS: NYSTATIN TOP POWDER 15 GM BOTTLE TP SCH ×2 (09:00→21:21)
[2018-05-01] MEDS: NYSTATIN/TRIAMCIN OINT 30 GM TUBE TP SCH (09:00)
[2018-05-01] MEDS: HYDROGEN PEROXIDE 480 ML BOTTLE TP SCH ×2 (09:00→21:21)
[2018-05-01] MEDS: DOCUSATE SODIUM LIQ 100 MG/10 ML UDC GT SCH (09:17)
[2018-05-01] MEDS: ACIDOPHILUS/BULGARICUS 1 EACH TAB.CHEW GT SCH ×2 (09:17→21:20)
[2018-05-01] MEDS: METOPROLOL TARTRATE 25 MG TABLET GT SCH ×2 (09:17→21:21)
[2018-05-01] MEDS: SENNOSIDES 8.6 MG TABLET GT SCH ×2 (09:18→21:20)
[2018-05-01] MEDS: AMLODIPINE BESYLATE 5 MG TABLET GT SCH (09:18)
[2018-05-01] MEDS: ZINC SULFATE 220 MG CAPSULE GT SCH (09:18)
[2018-05-01] MEDS: MAGNESIUM OXIDE 400 MG TABLET GT SCH (09:18)
[2018-05-01] MEDS: MULTIVIT W/MINERALS 1 TAB TABLET GT SCH (09:18)
[2018-05-01] MEDS: ACETAMINOPHEN 650 MG/20.3 ML UDC PO SCH ×2 (09:18→21:20)
[2018-05-01] MEDS: ASCORBIC ACID 500 MG TABLET GT SCH (09:18)
[2018-05-01] MEDS: GLUCERNA 1.5 1,000 ML BOTTLE GT PRN ×2 (12:40→22:04)
[2018-05-01] MEDS: CEFTRIAXONE 1 G in IV D5W 50 ML IV SCH (13:00)
[2018-05-01 17:46] VITALS: BP 139/93
[2018-05-01 18:47] VITALS: BP 131/87
[2018-05-01 19:44] VITALS: BP 142/91
[2018-05-01] MEDS: INSULIN DETEMIR 100 UNIT/ML CARTRIDGE SQ SCH (22:03)
[2018-05-02 00:39] VITALS: BP 139/62
[2018-05-02] MEDS: IPRATROPIUM NEB FS 0.5 MG/2.5 ML AMPUL.NEB NEB SCH ×4 (01:58→19:07)
[2018-05-02] MEDS: BLOOD SUGAR DIAGNOSTIC 1 EACH STRIP IN SCH ×4 (05:47→23:26)
[2018-05-02] MEDS: INSULIN REGULAR, HUMAN 100 UNIT/ML 3 ML VIAL SQ PRN ×4 (05:48→23:27)
--- NOTE | 2018-05-02 06:10 | NUR ---
RT PT RECEIVED TRACHED ON [facility] VENT WITH NOTED SETTING. VENT ALARMS SET AND AUDIBLE. VENT TO RED OUTLET. AMBU BAG AT [facility]. TRACH PATENT AND SECURE VIA TRACH TIES. STITCH WELDER NOTED. PT TOLERATING VENT SETTING WELL, NO SOB OR DISTRESS NOTED. Addendum: 05/02/18 at 0611 by TED OSORIO RT Amended: Links added.
[2018-05-02 06:45] VITALS: BP 142/57
[2018-05-02 08:01] VITALS: BP 144/63
[2018-05-02] MEDS: MAGNESIUM OXIDE 400 MG TABLET GT SCH (09:17)
[2018-05-02] MEDS: ACIDOPHILUS/BULGARICUS 1 EACH TAB.CHEW GT SCH ×2 (09:17→20:47)
[2018-05-02] MEDS: SENNOSIDES 8.6 MG TABLET GT SCH ×2 (09:17→20:48)
[2018-05-02] MEDS: MULTIVIT W/MINERALS 1 TAB TABLET GT SCH (09:17)
[2018-05-02] MEDS: DOCUSATE SODIUM LIQ 100 MG/10 ML UDC GT SCH (09:17)
[2018-05-02] MEDS: AMLODIPINE BESYLATE 5 MG TABLET GT SCH (09:17)
[2018-05-02] MEDS: ACETAMINOPHEN 650 MG/20.3 ML UDC PO SCH ×2 (09:17→20:48)
[2018-05-02] MEDS: ASCORBIC ACID 500 MG TABLET GT SCH (09:17)
[2018-05-02] MEDS: ZINC SULFATE 220 MG CAPSULE GT SCH (09:17)
[2018-05-02] MEDS: METOPROLOL TARTRATE 25 MG TABLET GT SCH ×2 (09:17→20:48)
[2018-05-02] MEDS: HYDROGEN PEROXIDE 480 ML BOTTLE TP SCH ×2 (09:17→20:48)
[2018-05-02] MEDS: VITS A AND D/WHITE PET/LANOLIN 5 GM PACKET TP SCH ×2 (09:18→20:48)
[2018-05-02] MEDS: NYSTATIN/TRIAMCIN OINT 30 GM TUBE TP SCH (09:49)
[2018-05-02] MEDS: NYSTATIN TOP POWDER 15 GM BOTTLE TP SCH ×2 (09:49→20:48)
[2018-05-02] MEDS: Z GUARD REMEDY 4 OZ OINT TP SCH ×2 (09:49→20:48)
[2018-05-02 12:00] VITALS: BP 117/55
[2018-05-02] MEDS: CEFTRIAXONE 1 G in IV D5W 50 ML IV SCH (13:00)
[2018-05-02 18:25] VITALS: BP 115/53
[2018-05-02 19:43] VITALS: BP 124/77
--- NOTE | 2018-05-02 20:27 | NUR ---
Patient received on mechanical ventilation with settings of AC 15, 450 Vt, 30%, +5. Suctioned for minimal, thick, yellow secretions. Given in-line treatments with no adverse reactions. Ambu bag at bedside. Vent alarm audible and visible. Vent plugged into red outlet. Addendum: 05/02/18 at 2027 by CAMMY MCELROY RT Amended: Links added.
[2018-05-02] MEDS: INSULIN DETEMIR 100 UNIT/ML CARTRIDGE SQ SCH (21:23)
[2018-05-02] MEDS: GLUCERNA 1.5 1,000 ML BOTTLE GT PRN (23:26)
[2018-05-03 00:34] VITALS: BP 100/48
[2018-05-03] MEDS: IPRATROPIUM NEB FS 0.5 MG/2.5 ML AMPUL.NEB NEB SCH ×4 (01:21→19:51)
[2018-05-03] MEDS: BLOOD SUGAR DIAGNOSTIC 1 EACH STRIP IN SCH ×4 (05:51→23:43)
[2018-05-03] MEDS: INSULIN REGULAR, HUMAN 100 UNIT/ML 3 ML VIAL SQ PRN ×4 (05:52→23:44)
[2018-05-03 06:59] VITALS: BP 125/49
[2018-05-03 07:36] VITALS: BP 123/75
[2018-05-03] MEDS: DOCUSATE SODIUM LIQ 100 MG/10 ML UDC GT SCH (08:30)
[2018-05-03] MEDS: ACIDOPHILUS/BULGARICUS 1 EACH TAB.CHEW GT SCH ×2 (08:30→20:24)
[2018-05-03] MEDS: METOPROLOL TARTRATE 25 MG TABLET GT SCH ×2 (08:31→20:24)
[2018-05-03] MEDS: AMLODIPINE BESYLATE 5 MG TABLET GT SCH (08:32)
[2018-05-03] MEDS: SENNOSIDES 8.6 MG TABLET GT SCH ×2 (08:32→20:24)
[2018-05-03] MEDS: ZINC SULFATE 220 MG CAPSULE GT SCH (08:33)
[2018-05-03] MEDS: ASCORBIC ACID 500 MG TABLET GT SCH (08:33)
[2018-05-03] MEDS: ACETAMINOPHEN 650 MG/20.3 ML UDC PO SCH ×2 (08:33→20:24)
[2018-05-03] MEDS: MAGNESIUM OXIDE 400 MG TABLET GT SCH (08:34)
[2018-05-03] MEDS: MULTIVIT W/MINERALS 1 TAB TABLET GT SCH (08:34)
[2018-05-03] MEDS: HYDROGEN PEROXIDE 480 ML BOTTLE TP SCH ×2 (09:00→20:25)
[2018-05-03] MEDS: DAKINS HALF STRENGTH (0.25%) 480 ML BOTTLE TOP SCH (09:00)
[2018-05-03] MEDS: NYSTATIN TOP POWDER 15 GM BOTTLE TP SCH ×2 (09:00→20:25)
[2018-05-03] MEDS: Z GUARD REMEDY 4 OZ OINT TP SCH ×2 (09:00→20:25)
[2018-05-03] MEDS: VITS A AND D/WHITE PET/LANOLIN 5 GM PACKET TP SCH ×2 (09:00→20:25)
[2018-05-03] MEDS: NYSTATIN/TRIAMCIN OINT 30 GM TUBE TP SCH (09:00)
[2018-05-03 12:05] VITALS: BP 142/66
[2018-05-03] MEDS: CEFTRIAXONE 1 G in IV D5W 50 ML IV SCH (13:06)
[2018-05-03 18:10] VITALS: BP 138/77
[2018-05-03 19:32] VITALS: BP 129/91
--- NOTE | 2018-05-03 19:51 | NUR ---
RT Pt received trach'd and on [facility] vent w charted settings. Vent is plugged into red outlet. Alarms are on and audible w soto @ [facility]. Trach is secure and patent. Credit Assistant done. Hhn tx given and pt sx'd w no adverse reactions. No respiratory distress noted at this time. Will continue to monitor. Addendum: 05/03/18 at 2103 by INES MCKEON RT Amended: Links added.
[2018-05-03] MEDS: INSULIN DETEMIR 100 UNIT/ML CARTRIDGE SQ SCH (21:17)
[2018-05-03] MEDS: GLUCERNA 1.5 1,000 ML BOTTLE GT PRN (23:43)
[2018-05-04 00:39] VITALS: BP 135/67
[2018-05-04] MEDS: IPRATROPIUM NEB FS 0.5 MG/2.5 ML AMPUL.NEB NEB SCH ×4 (02:07→20:00)
[2018-05-04] MEDS: BLOOD SUGAR DIAGNOSTIC 1 EACH STRIP IN SCH ×3 (05:23→17:47)
[2018-05-04] MEDS: INSULIN REGULAR, HUMAN 100 UNIT/ML 3 ML VIAL SQ PRN ×3 (05:24→17:48)
[2018-05-04 06:11] VITALS: BP 129/48
[2018-05-04 07:52] VITALS: BP 139/54
[2018-05-04] MEDS: DOCUSATE SODIUM LIQ 100 MG/10 ML UDC GT SCH (09:51)
[2018-05-04] MEDS: ACIDOPHILUS/BULGARICUS 1 EACH TAB.CHEW GT SCH ×2 (09:51→21:21)
[2018-05-04] MEDS: Z GUARD REMEDY 4 OZ OINT TP SCH ×2 (09:52→21:22)
[2018-05-04] MEDS: DAKINS HALF STRENGTH (0.25%) 480 ML BOTTLE TOP SCH (09:52)
[2018-05-04] MEDS: SENNOSIDES 8.6 MG TABLET GT SCH ×2 (09:52→21:22)
[2018-05-04] MEDS: MAGNESIUM OXIDE 400 MG TABLET GT SCH (09:52)
[2018-05-04] MEDS: VITS A AND D/WHITE PET/LANOLIN 5 GM PACKET TP SCH ×2 (09:52→21:22)
[2018-05-04] MEDS: NYSTATIN TOP POWDER 15 GM BOTTLE TP SCH ×2 (09:52→21:22)
[2018-05-04] MEDS: NYSTATIN/TRIAMCIN OINT 30 GM TUBE TP SCH (09:52)
[2018-05-04] MEDS: AMLODIPINE BESYLATE 5 MG TABLET GT SCH (09:52)
[2018-05-04] MEDS: METOPROLOL TARTRATE 25 MG TABLET GT SCH ×2 (09:52→21:21)
[2018-05-04] MEDS: ZINC SULFATE 220 MG CAPSULE GT SCH (09:52)
[2018-05-04] MEDS: HYDROGEN PEROXIDE 480 ML BOTTLE TP SCH ×2 (09:52→21:22)
[2018-05-04] MEDS: ACETAMINOPHEN 650 MG/20.3 ML UDC PO SCH ×2 (09:52→21:22)
[2018-05-04] MEDS: ASCORBIC ACID 500 MG TABLET GT SCH (09:52)
[2018-05-04] MEDS: MULTIVIT W/MINERALS 1 TAB TABLET GT SCH (09:52)
[2018-05-04] MEDS: CEFTRIAXONE 1 G in IV D5W 50 ML IV SCH (12:38)
[2018-05-04 16:44] VITALS: BP 128/67
[2018-05-04 18:30] VITALS: BP 136/66
[2018-05-04 19:40] VITALS: BP 130/57
--- NOTE | 2018-05-04 20:35 | NUR ---
RT PT REC'D TRACHED ON VENT SETTINGS CHARTED, PT RESPONSIVE TO PAIN, NO SOB, NO RESPIRATORY DISTRESS NOTED AT THIS TIME, TRACH TUBE PATENT, SECURE, IN PLACE, AMBU BAG @ HOB, VENT ALARMS ON AND AUDIBLE, VENT PLUGGED IN RED OUTLET, PT SUCTIONED, TX GIVEN WITH NO ADVERSE REACTION, WILL CONTINUE TO MONITOR. Addendum: 05/04/18 at 2035 by FLORINDA TSE RT Amended: Links added.
[2018-05-04] MEDS: INSULIN DETEMIR 100 UNIT/ML CARTRIDGE SQ SCH (22:49)
[2018-05-05] VITALS: BP 125/57
[2018-05-05] MEDS: BLOOD SUGAR DIAGNOSTIC 1 EACH STRIP IN SCH ×4 (00:43→17:57)
[2018-05-05] MEDS: INSULIN REGULAR, HUMAN 100 UNIT/ML 3 ML VIAL SQ PRN ×4 (00:52→18:02)
[2018-05-05] MEDS: IPRATROPIUM NEB FS 0.5 MG/2.5 ML AMPUL.NEB NEB SCH ×4 (00:59→19:13)
[2018-05-05] MEDS: GLUCERNA 1.2 1,000 ML BOTTLE GT PRN (03:35)
[2018-05-05] MEDS: CLONIDINE HCL 0.1 MG TABLET GT PRN (05:44)
[2018-05-05 06:00] VITALS: BP 166/77
[2018-05-05] MEDS: METOPROLOL TARTRATE 25 MG TABLET GT SCH ×2 (09:00→20:55)
[2018-05-05] MEDS: MAGNESIUM OXIDE 400 MG TABLET GT SCH (09:00)
[2018-05-05] MEDS: SENNOSIDES 8.6 MG TABLET GT SCH ×2 (09:00→20:55)
[2018-05-05] MEDS: PROSTAT (PYXIS) 30 ML UDC GT SCH ×2 (09:00→17:57)
[2018-05-05] MEDS: DOCUSATE SODIUM LIQ 100 MG/10 ML UDC GT SCH (09:00)
[2018-05-05] MEDS: ASCORBIC ACID 500 MG TABLET GT SCH (09:00)
[2018-05-05] MEDS: MULTIVIT W/MINERALS 1 TAB TABLET GT SCH (09:00)
[2018-05-05] MEDS: ACIDOPHILUS/BULGARICUS 1 EACH TAB.CHEW GT SCH ×2 (09:00→20:54)
[2018-05-05] MEDS: ZINC SULFATE 220 MG CAPSULE GT SCH (09:00)
[2018-05-05] MEDS: AMLODIPINE BESYLATE 5 MG TABLET GT SCH (09:00)
[2018-05-05] MEDS: ACETAMINOPHEN 650 MG/20.3 ML UDC PO SCH ×2 (09:00→20:55)
[2018-05-05] MEDS: NYSTATIN/TRIAMCIN OINT 30 GM TUBE TP SCH (10:00)
[2018-05-05] MEDS: DAKINS HALF STRENGTH (0.25%) 480 ML BOTTLE TOP SCH (10:00)
[2018-05-05] MEDS: NYSTATIN TOP POWDER 15 GM BOTTLE TP SCH ×2 (10:00→21:44)
[2018-05-05] MEDS: HYDROGEN PEROXIDE 480 ML BOTTLE TP SCH ×2 (10:00→20:55)
[2018-05-05] MEDS: VITS A AND D/WHITE PET/LANOLIN 5 GM PACKET TP SCH ×2 (10:00→21:45)
[2018-05-05] MEDS: Z GUARD REMEDY 4 OZ OINT TP SCH ×2 (10:00→21:45)
[2018-05-05 12:00] VITALS: BP 120/70
--- NOTE | 2018-05-05 12:29 | NUR ---
RT RECD PT TRACHED INTACT & SECURED ON MECH VENT BIRDIE ORDERED SETTINGS ALARMS ON AND AUDIBLE BAG AND MASK AT HOB VENT PLUGGED IN THE RED OUTLET. SX THICK YELLOW MOD SECRETIONS TXS GIVEN NO ADVERSE REACTION NOTED ATT NO RESP DISTRESS NOTED ATT WILL CONT TO MONITOR
[2018-05-05 13:38] VITALS: BP 96/48
[2018-05-05] MEDS: CEFTRIAXONE 1 G in IV D5W 50 ML IV SCH (13:39)
[2018-05-05 18:00] VITALS: BP 131/59
--- NOTE | 2018-05-05 18:30 | NUR ---
Late entry for 05/01/18 Dr Ralph Mendzoa debrided pt's sacral wound. Pt tolerated procedure well.
[2018-05-05 19:51] VITALS: BP 120/55
[2018-05-05] MEDS: INSULIN DETEMIR 100 UNIT/ML CARTRIDGE SQ SCH (21:48)
[2018-05-06] MEDS: BLOOD SUGAR DIAGNOSTIC 1 EACH STRIP IN SCH ×4 (00:10→17:46)
[2018-05-06] MEDS: INSULIN REGULAR, HUMAN 100 UNIT/ML 3 ML VIAL SQ PRN ×4 (00:11→17:47)
--- NOTE | 2018-05-06 00:15 | NUR ---
PT REC'D TRACHED ON VENT SETTINGS CHARTED, PT RESPONSIVE TO PAIN, NO SOB, NO RESPIRATORY DISTRESS NOTED AT THIS TIME, TRACH TUBE PATENT, SECURE, IN PLACE, AMBU BAG @ HOB, VENT ALARMS ON AND AUDIBLE, PT SUCTIONED W SMALL AMOUNT OF THICK PALE YELLOW SECRETIONS, TX GIVEN WITH NO ADVERSE REACTION, WILL CONTINUE TO MONITOR. Addendum: 05/06/18 at 0016 by CHAZ ESTRELLA RT Amended: Links added.
[2018-05-06 01:22] VITALS: BP 122/60
[2018-05-06] MEDS: IPRATROPIUM NEB FS 0.5 MG/2.5 ML AMPUL.NEB NEB SCH ×4 (01:41→19:13)
[2018-05-06 06:31] VITALS: BP 128/58
[2018-05-06 07:42] VITALS: BP 139/63
[2018-05-06] MEDS: PROSTAT (PYXIS) 30 ML UDC GT SCH ×2 (08:54→16:50)
[2018-05-06] MEDS: METOPROLOL TARTRATE 25 MG TABLET GT SCH ×2 (08:54→21:16)
[2018-05-06] MEDS: MAGNESIUM OXIDE 400 MG TABLET GT SCH (08:54)
[2018-05-06] MEDS: ACIDOPHILUS/BULGARICUS 1 EACH TAB.CHEW GT SCH ×2 (08:54→21:15)
[2018-05-06] MEDS: SENNOSIDES 8.6 MG TABLET GT SCH ×2 (08:54→21:18)
[2018-05-06] MEDS: AMLODIPINE BESYLATE 5 MG TABLET GT SCH (08:54)
[2018-05-06] MEDS: DOCUSATE SODIUM LIQ 100 MG/10 ML UDC GT SCH (08:54)
[2018-05-06] MEDS: ASCORBIC ACID 500 MG TABLET GT SCH (08:54)
[2018-05-06] MEDS: MULTIVIT W/MINERALS 1 TAB TABLET GT SCH (08:54)
[2018-05-06] MEDS: ZINC SULFATE 220 MG CAPSULE GT SCH (08:55)
[2018-05-06] MEDS: ACETAMINOPHEN 650 MG/20.3 ML UDC PO SCH ×2 (08:55→21:18)
[2018-05-06] MEDS: VITS A AND D/WHITE PET/LANOLIN 5 GM PACKET TP SCH ×2 (09:00→21:18)
[2018-05-06] MEDS: NYSTATIN/TRIAMCIN OINT 30 GM TUBE TP SCH (09:00)
[2018-05-06] MEDS: NYSTATIN TOP POWDER 15 GM BOTTLE TP SCH ×2 (09:00→21:18)
[2018-05-06] MEDS: DAKINS HALF STRENGTH (0.25%) 480 ML BOTTLE TOP SCH (09:00)
[2018-05-06] MEDS: HYDROGEN PEROXIDE 480 ML BOTTLE TP SCH ×2 (09:00→21:18)
[2018-05-06] MEDS: Z GUARD REMEDY 4 OZ OINT TP SCH ×2 (09:00→21:18)
[2018-05-06 12:00] VITALS: BP 119/45
[2018-05-06] MEDS: CEFTRIAXONE 1 G in IV D5W 50 ML IV SCH (13:00)
[2018-05-06 18:45] VITALS: BP 146/93
--- NOTE | 2018-05-06 19:17 | NUR ---
PT REC'D TRACHED ON VENT SETTINGS CHARTED, PT RESPONSIVE TO PAIN, NO SOB, NO RESPIRATORY DISTRESS NOTED AT THIS TIME, TRACH TUBE PATENT, SECURE, IN PLACE, AMBU BAG @ HOB, VENT ALARMS ON AND AUDIBLE, PT SUCTIONED W SMALL AMOUNT OF THICK PALE YELLOW SECRETIONS, TX GIVEN WITH NO ADVERSE REACTION, WILL CONTINUE TO MONITOR. Addendum: 05/06/18 at 7 by CHAZ ESTRELLA RT Amended: Links added.
[2018-05-06 20:50] VITALS: BP 139/63
[2018-05-06] MEDS: INSULIN DETEMIR 100 UNIT/ML CARTRIDGE SQ SCH (21:19)
[2018-05-07] MEDS: INSULIN REGULAR, HUMAN 100 UNIT/ML 3 ML VIAL SQ PRN ×3 (00:38→18:21)
[2018-05-07 00:51] VITALS: BP 136/82
[2018-05-07] MEDS: BLOOD SUGAR DIAGNOSTIC 1 EACH STRIP IN SCH ×4 (00:52→18:19)
[2018-05-07] MEDS: IPRATROPIUM NEB FS 0.5 MG/2.5 ML AMPUL.NEB NEB SCH ×4 (01:25→19:47)
[2018-05-07 07:08] VITALS: BP 158/72
[2018-05-07 07:49] VITALS: BP 126/51
--- NOTE | 2018-05-07 07:55 | NUR ---
PT RECD TRACHED ON [facility] VENT. NO RESP DISTRESS OR SOB NOTED. TRACH PATENT AND SECURED. SX'D FOR THICK MOD AMT OF PALE YELLOW SECRETIONS. ALARMS ARE SET AND AUDIBLE. VENT PLUGGED INTO RED OUTLET. AMBU BAG BEDSIDE. WILL CONTINUE TO MONITOR. Addendum: 05/07/18 at 0900 by TALA YAO RT Amended: Links added.
[2018-05-07] MEDS: NYSTATIN TOP POWDER 15 GM BOTTLE TP SCH ×2 (09:00→21:59)
[2018-05-07] MEDS: VITS A AND D/WHITE PET/LANOLIN 5 GM PACKET TP SCH ×2 (09:00→21:59)
[2018-05-07] MEDS: HYDROGEN PEROXIDE 480 ML BOTTLE TP SCH ×2 (09:00→21:59)
[2018-05-07] MEDS: Z GUARD REMEDY 4 OZ OINT TP SCH ×2 (09:00→21:59)
[2018-05-07] MEDS: NYSTATIN/TRIAMCIN OINT 30 GM TUBE TP SCH (09:00)
[2018-05-07] MEDS: DAKINS HALF STRENGTH (0.25%) 480 ML BOTTLE TOP SCH (09:00)
[2018-05-07] MEDS: METOPROLOL TARTRATE 25 MG TABLET GT SCH ×2 (09:06→21:26)
[2018-05-07] MEDS: SENNOSIDES 8.6 MG TABLET GT SCH ×2 (09:07→21:26)
[2018-05-07] MEDS: ACIDOPHILUS/BULGARICUS 1 EACH TAB.CHEW GT SCH ×2 (09:07→21:25)
[2018-05-07] MEDS: ZINC SULFATE 220 MG CAPSULE GT SCH (09:07)
[2018-05-07] MEDS: MAGNESIUM OXIDE 400 MG TABLET GT SCH (09:07)
[2018-05-07] MEDS: ACETAMINOPHEN 650 MG/20.3 ML UDC PO SCH ×2 (09:07→21:26)
[2018-05-07] MEDS: ASCORBIC ACID 500 MG TABLET GT SCH (09:07)
[2018-05-07] MEDS: MULTIVIT W/MINERALS 1 TAB TABLET GT SCH (09:07)
[2018-05-07] MEDS: AMLODIPINE BESYLATE 5 MG TABLET GT SCH (09:07)
[2018-05-07] MEDS: DOCUSATE SODIUM LIQ 100 MG/10 ML UDC GT SCH (09:07)
[2018-05-07] MEDS: PROSTAT (PYXIS) 30 ML UDC GT SCH ×2 (09:07→17:39)
[2018-05-07 12:00] VITALS: BP 115/97
[2018-05-07] MEDS: CEFTRIAXONE 1 G in IV D5W 50 ML IV SCH (13:27)
[2018-05-07 18:23] VITALS: BP 145/69
[2018-05-07 19:44] VITALS: BP 141/67
--- NOTE | 2018-05-07 20:09 | NUR ---
RT NOTE PT RECEIVED ON [facility] VENT ON THE FOLLOWING NOTED SETTINGS. NO RESP DISTRESS OR SOB NOTED. PT SUCTIONED: MOD THICK YELLOW/WHITE SECRETIONS. BREATHING TX GIVEN, NO ADVERSE REACTIONS NOTED AT THIS TIME. VENT IS PLUGGED INTO RED OUTLET. ALARMS ARE ON AND AUDIBLE. AMBU BAG AND SPARE TRACH ARE AT BEDSIDE. WILL CONT TO MONITOR. Addendum: 05/07/18 at 2009 by MEI SANTANA RT Amended: Links added.
[2018-05-07] MEDS: INSULIN DETEMIR 100 UNIT/ML CARTRIDGE SQ SCH (22:45)
[2018-05-08 00:09] VITALS: BP 138/74
[2018-05-08] MEDS: BLOOD SUGAR DIAGNOSTIC 1 EACH STRIP IN SCH ×4 (00:32→18:14)
[2018-05-08] MEDS: INSULIN REGULAR, HUMAN 100 UNIT/ML 3 ML VIAL SQ PRN ×4 (00:34→18:16)
[2018-05-08] MEDS: IPRATROPIUM NEB FS 0.5 MG/2.5 ML AMPUL.NEB NEB SCH ×4 (01:42→19:58)
[2018-05-08] MEDS: CLONIDINE HCL 0.1 MG TABLET GT PRN (05:47)
[2018-05-08] MEDS: GLUCERNA 1.2 1,000 ML BOTTLE GT PRN (05:58)
[2018-05-08 06:07] VITALS: BP 164/75
--- NOTE | 2018-05-08 07:39 | NUR ---
Pt received on a mechanical vent. Pt trach is secure. Vent is plugged into a red outlet, alarms are set and audible, and BMV is at bedside. Addendum: 05/08/18 at 0744 by SHIMA GONZALES RT Amended: Links added.
[2018-05-08 08:23] VITALS: BP 90/75
[2018-05-08] MEDS: MAGNESIUM OXIDE 400 MG TABLET GT SCH (09:00)
[2018-05-08] MEDS: ASCORBIC ACID 500 MG TABLET GT SCH (09:00)
[2018-05-08] MEDS: VITS A AND D/WHITE PET/LANOLIN 5 GM PACKET TP SCH ×2 (09:00→21:34)
[2018-05-08] MEDS: HYDROGEN PEROXIDE 480 ML BOTTLE TP SCH ×2 (09:00→21:34)
[2018-05-08] MEDS: DAKINS HALF STRENGTH (0.25%) 480 ML BOTTLE TOP SCH (09:00)
[2018-05-08] MEDS: SENNOSIDES 8.6 MG TABLET GT SCH ×2 (09:00→21:04)
[2018-05-08] MEDS: AMLODIPINE BESYLATE 5 MG TABLET GT SCH (09:00)
[2018-05-08] MEDS: METOPROLOL TARTRATE 25 MG TABLET GT SCH ×2 (09:00→21:04)
[2018-05-08] MEDS: ZINC SULFATE 220 MG CAPSULE GT SCH (09:00)
[2018-05-08] MEDS: PROSTAT (PYXIS) 30 ML UDC GT SCH ×2 (09:00→17:00)
[2018-05-08] MEDS: ACETAMINOPHEN 650 MG/20.3 ML UDC PO SCH ×2 (09:00→21:04)
[2018-05-08] MEDS: DOCUSATE SODIUM LIQ 100 MG/10 ML UDC GT SCH (09:00)
[2018-05-08] MEDS: ACIDOPHILUS/BULGARICUS 1 EACH TAB.CHEW GT SCH ×2 (09:00→21:03)
[2018-05-08] MEDS: Z GUARD REMEDY 4 OZ OINT TP SCH ×2 (09:00→21:34)
[2018-05-08] MEDS: NYSTATIN/TRIAMCIN OINT 30 GM TUBE TP SCH (09:00)
[2018-05-08] MEDS: NYSTATIN TOP POWDER 15 GM BOTTLE TP SCH ×2 (09:00→21:34)
[2018-05-08] MEDS: MULTIVIT W/MINERALS 1 TAB TABLET GT SCH (09:00)
[2018-05-08] MEDS: CEFTRIAXONE 1 G in IV D5W 50 ML IV SCH (13:22)
--- NOTE | 2018-05-08 14:51 | NUR ---
Left foot wound seen by Dr Dudley. He drained the small amount of pus from the left foot wound and redressed it. Pt tolerated procedure well.
[2018-05-08 18:42] VITALS: BP 157/73
[2018-05-08] MEDS: MAGNESIUM HYDROXIDE 30 ML UDC GT PRN (18:45)
[2018-05-08] MEDS: BISACODYL SUPP (10 MG) 10 MG/SUPP.RECT SUPP.RECT RC PRN (18:56)
[2018-05-08 19:24] VITALS: BP 104/73
--- NOTE | 2018-05-08 19:58 | NUR ---
RT NOTE: RECEIVED TRACH PT ON [facility] VENT ON NOTED SETTINGS PER MD ORDERS. TRACH IS PATENT AND SECURED. NURSING EDUCATION SPECIALIST DONE. AMBU BAG @ BEDSIDE. Q6 BREATHING TX GIVEN WITH NO ADVERSE REACTION NOTED. SX DONE PRN. VENT PLUGGED INTO RED OUTLET. ALARMS ON AND AUDIBLE. NO RESP DISTRESS AT THIS TIME. WILL CONT TO MONITOR PT. Addendum: 05/09/18 at 0256 by PREMA SOTO RT Amended: Links added.
[2018-05-08] MEDS: INSULIN DETEMIR 100 UNIT/ML CARTRIDGE SQ SCH (22:01)
[2018-05-09 00:14] VITALS: BP 140/74
[2018-05-09] MEDS: BLOOD SUGAR DIAGNOSTIC 1 EACH STRIP IN SCH ×4 (00:53→17:26)
[2018-05-09] MEDS: INSULIN REGULAR, HUMAN 100 UNIT/ML 3 ML VIAL SQ PRN ×4 (00:54→17:27)
[2018-05-09] MEDS: IPRATROPIUM NEB FS 0.5 MG/2.5 ML AMPUL.NEB NEB SCH ×4 (01:51→19:42)
[2018-05-09] MEDS: GLUCERNA 1.2 1,000 ML BOTTLE GT PRN (05:56)
[2018-05-09] MEDS: CLONIDINE HCL 0.1 MG TABLET GT PRN (05:57)
[2018-05-09 06:16] VITALS: BP 164/86
[2018-05-09 08:05] VITALS: BP 139/76
[2018-05-09] MEDS: NYSTATIN TOP POWDER 15 GM BOTTLE TP SCH ×2 (09:00→21:58)
[2018-05-09] MEDS: NYSTATIN/TRIAMCIN OINT 30 GM TUBE TP SCH (09:00)
[2018-05-09] MEDS: VITS A AND D/WHITE PET/LANOLIN 5 GM PACKET TP SCH ×2 (09:00→21:58)
[2018-05-09] MEDS: HYDROGEN PEROXIDE 480 ML BOTTLE TP SCH ×2 (09:00→21:22)
[2018-05-09] MEDS: Z GUARD REMEDY 4 OZ OINT TP SCH ×2 (09:00→21:58)
[2018-05-09] MEDS: DAKINS HALF STRENGTH (0.25%) 480 ML BOTTLE TOP SCH (09:00)
[2018-05-09] MEDS: ACIDOPHILUS/BULGARICUS 1 EACH TAB.CHEW GT SCH ×2 (09:14→21:20)
[2018-05-09] MEDS: DOCUSATE SODIUM LIQ 100 MG/10 ML UDC GT SCH (09:14)
[2018-05-09] MEDS: MAGNESIUM OXIDE 400 MG TABLET GT SCH (09:15)
[2018-05-09] MEDS: MULTIVIT W/MINERALS 1 TAB TABLET GT SCH (09:15)
[2018-05-09] MEDS: ACETAMINOPHEN 650 MG/20.3 ML UDC PO SCH ×2 (09:15→21:26)
[2018-05-09] MEDS: AMLODIPINE BESYLATE 5 MG TABLET GT SCH (09:15)
[2018-05-09] MEDS: METOPROLOL TARTRATE 25 MG TABLET GT SCH ×2 (09:15→21:22)
[2018-05-09] MEDS: ASCORBIC ACID 500 MG TABLET GT SCH (09:15)
[2018-05-09] MEDS: SENNOSIDES 8.6 MG TABLET GT SCH ×2 (09:15→21:22)
[2018-05-09] MEDS: PROSTAT (PYXIS) 30 ML UDC GT SCH ×2 (09:15→17:26)
[2018-05-09] MEDS: ZINC SULFATE 220 MG CAPSULE GT SCH (09:15)
[2018-05-09] MEDS: CEFTRIAXONE 1 G in IV D5W 50 ML IV SCH (13:00)
--- NOTE | 2018-05-09 16:00 | NUR ---
Resident seen by Beatrice Francois, AVERY, reported that patient developed low grade temp last night 100.3, but afebrile at this time. NNO given patient remain on IV Rocephin until 05/21/18.
[2018-05-09 18:18] VITALS: BP 139/76
--- NOTE | 2018-05-09 20:46 | NUR ---
PATIENT WAS RECEIVED ON CONTINUOUS VENT SUPPORT ON NOTED VENT SETTINGS. MEAT STOCKER DONE. AMBU BAG @ BEDSIDE. Q6 BREATHING TX GIVEN WITH NO ADVERSE REACTION NOTED. SUCTION DONE PRN.TRACH TUBE PATENT AND SECURED. ALARMS ON AND AUDIBLE. NO RESPIRATORY DISTRESS NOTED AT THIS TIME. WILL CONTINUE TO MONITOR PATIENT. Addendum: 05/09/18 at 2045 by NYA RICHARDS RT Amended: Links added.
[2018-05-09 21:24] VITALS: BP 127/68
[2018-05-09] MEDS: INSULIN DETEMIR 100 UNIT/ML CARTRIDGE SQ SCH (22:13)
[2018-05-10] MEDS: BLOOD SUGAR DIAGNOSTIC 1 EACH STRIP IN SCH ×5 (00:14→23:25)
[2018-05-10] MEDS: INSULIN REGULAR, HUMAN 100 UNIT/ML 3 ML VIAL SQ PRN ×5 (00:15→23:27)
[2018-05-10 00:32] VITALS: BP 148/72
[2018-05-10] MEDS: IPRATROPIUM NEB FS 0.5 MG/2.5 ML AMPUL.NEB NEB SCH ×4 (01:58→19:29)
[2018-05-10 06:06] VITALS: BP 132/61
[2018-05-10] MEDS: GLUCERNA 1.2 1,000 ML BOTTLE GT PRN (06:09)
[2018-05-10 07:55] VITALS: BP 135/72
--- NOTE | 2018-05-10 08:05 | NUR ---
pt rec'd trached on [facility] vent on ac mode. no resp distress or sob noted. trach patent and secured. sx'd for thick mod amt of pale yellow secretions. environmental associate cuff pressure noted. alarms are set audible. vent plugged into red outlet. ambu bag bedside. will continue to monitor. Addendum: 05/10/18 at 0835 by TALA YAO RT Amended: Links added.
[2018-05-10] MEDS: SENNOSIDES 8.6 MG TABLET GT SCH ×2 (09:00→21:44)
[2018-05-10] MEDS: MULTIVIT W/MINERALS 1 TAB TABLET GT SCH (09:00)
[2018-05-10] MEDS: AMLODIPINE BESYLATE 5 MG TABLET GT SCH (09:00)
[2018-05-10] MEDS: DOCUSATE SODIUM LIQ 100 MG/10 ML UDC GT SCH (09:00)
[2018-05-10] MEDS: METOPROLOL TARTRATE 25 MG TABLET GT SCH ×2 (09:00→21:44)
[2018-05-10] MEDS: HYDROGEN PEROXIDE 480 ML BOTTLE TP SCH ×2 (09:00→21:44)
[2018-05-10] MEDS: DAKINS HALF STRENGTH (0.25%) 480 ML BOTTLE TOP SCH (09:00)
[2018-05-10] MEDS: ACETAMINOPHEN 650 MG/20.3 ML UDC PO SCH ×2 (09:00→21:44)
[2018-05-10] MEDS: MAGNESIUM OXIDE 400 MG TABLET GT SCH (09:00)
[2018-05-10] MEDS: VITS A AND D/WHITE PET/LANOLIN 5 GM PACKET TP SCH ×2 (09:00→21:44)
[2018-05-10] MEDS: ASCORBIC ACID 500 MG TABLET GT SCH (09:00)
[2018-05-10] MEDS: NYSTATIN/TRIAMCIN OINT 30 GM TUBE TP SCH (09:00)
[2018-05-10] MEDS: ACIDOPHILUS/BULGARICUS 1 EACH TAB.CHEW GT SCH ×2 (09:00→21:43)
[2018-05-10] MEDS: Z GUARD REMEDY 4 OZ OINT TP SCH ×2 (09:00→21:44)
[2018-05-10] MEDS: ZINC SULFATE 220 MG CAPSULE GT SCH (09:00)
[2018-05-10] MEDS: PROSTAT (PYXIS) 30 ML UDC GT SCH ×2 (09:00→17:23)
--- NOTE | 2018-05-10 10:45 | NUR ---
Pt's midline noted to be out during AM care. No bleeding noted from midline insertion site. Tip of midline intact. PIV inserted on left hand with good blood return.
[2018-05-10 12:00] VITALS: BP 148/70
[2018-05-10] MEDS: CEFTRIAXONE 1 G in IV D5W 50 ML IV SCH (13:01)
[2018-05-10 18:00] VITALS: BP 147/70
--- NOTE | 2018-05-10 19:46 | NUR ---
RT NOTE PT RECEIVED ON [facility] VENT ON THE FOLLOWING NOTED SETTINGS. NO RESP DISTRESS OR SOB NOTED AT THIS TIME. PT SUCTIONED: MOD THIN WHITE SECRETIONS NOTED. BREATHING TX GIVEN, NO ADVERSE REACTIONS NOTED. VENT IS PLUGGED INTO RED OUTLET. ALARMS ARE ON AND AUDIBLE. AMBU BAG AND SPARE TRACH ARE AT BEDSIDE. WILL CONT TO MONITOR PT. Addendum: 05/10/18 at 1946 by MEI SANTANA RT Amended: Links added.
[2018-05-10 20:15] VITALS: BP 135/68
[2018-05-10] MEDS: INSULIN DETEMIR 100 UNIT/ML CARTRIDGE SQ SCH (21:45)
[2018-05-10] MEDS: CLONIDINE HCL 0.1 MG TABLET GT PRN (23:29)
[2018-05-11] VITALS (7 sets, daily range): BP systolic 123–151; BP diastolic 56–83
[2018-05-11] MEDS: IPRATROPIUM NEB FS 0.5 MG/2.5 ML AMPUL.NEB NEB SCH ×4 (01:38→19:48)
[2018-05-11] MEDS: BLOOD SUGAR DIAGNOSTIC 1 EACH STRIP IN SCH ×3 (06:00→18:14)
[2018-05-11] MEDS: GLUCERNA 1.2 1,000 ML BOTTLE GT PRN (06:02)
[2018-05-11] MEDS: INSULIN REGULAR, HUMAN 100 UNIT/ML 3 ML VIAL SQ PRN ×3 (06:02→18:16)
[2018-05-11] MEDS: CLONIDINE HCL 0.1 MG TABLET GT PRN (06:29)
[2018-05-11] MEDS: DOCUSATE SODIUM LIQ 100 MG/10 ML UDC GT SCH (09:42)
[2018-05-11] MEDS: ACIDOPHILUS/BULGARICUS 1 EACH TAB.CHEW GT SCH ×2 (09:43→21:44)
[2018-05-11] MEDS: METOPROLOL TARTRATE 25 MG TABLET GT SCH ×2 (09:43→21:43)
[2018-05-11] MEDS: AMLODIPINE BESYLATE 5 MG TABLET GT SCH (09:44)
[2018-05-11] MEDS: PROSTAT (PYXIS) 30 ML UDC GT SCH ×2 (09:45→16:03)
[2018-05-11] MEDS: ASCORBIC ACID 500 MG TABLET GT SCH (09:46)
[2018-05-11] MEDS: ACETAMINOPHEN 650 MG/20.3 ML UDC PO SCH ×2 (09:46→21:42)
[2018-05-11] MEDS: ZINC SULFATE 220 MG CAPSULE GT SCH (09:46)
[2018-05-11] MEDS: HYDROGEN PEROXIDE 480 ML BOTTLE TP SCH ×2 (09:47→21:41)
[2018-05-11] MEDS: NYSTATIN/TRIAMCIN OINT 30 GM TUBE TP SCH (09:47)
[2018-05-11] MEDS: Z GUARD REMEDY 4 OZ OINT TP SCH ×2 (09:47→21:41)
[2018-05-11] MEDS: DAKINS HALF STRENGTH (0.25%) 480 ML BOTTLE TOP SCH (09:47)
[2018-05-11] MEDS: VITS A AND D/WHITE PET/LANOLIN 5 GM PACKET TP SCH ×2 (09:47→21:41)
[2018-05-11] MEDS: SENNOSIDES 8.6 MG TABLET GT SCH ×2 (09:47→21:41)
[2018-05-11] MEDS: MULTIVIT W/MINERALS 1 TAB TABLET GT SCH (09:48)
[2018-05-11] MEDS: MAGNESIUM OXIDE 400 MG TABLET GT SCH (09:48)
[2018-05-11] MEDS: CEFTRIAXONE 1 G in IV D5W 50 ML IV SCH (12:28)
--- NOTE | 2018-05-11 18:14 | NUR ---
Seen by AVERY Hoover with new orders. Repeat CBC and BMP on 05/12/18.
[2018-05-11] MEDS: INSULIN DETEMIR 100 UNIT/ML CARTRIDGE SQ SCH (22:42)
[2018-05-12] VITALS: BP 148/70
[2018-05-12] MEDS: IPRATROPIUM NEB FS 0.5 MG/2.5 ML AMPUL.NEB NEB SCH ×4 (01:57→19:24)
[2018-05-12] MEDS: INSULIN REGULAR, HUMAN 100 UNIT/ML 3 ML VIAL SQ PRN ×4 (02:11→18:29)
[2018-05-12] MEDS: GLUCERNA 1.2 1,000 ML BOTTLE GT PRN (02:55)
[2018-05-12] MEDS: BLOOD SUGAR DIAGNOSTIC 1 EACH STRIP IN SCH ×4 (06:10→18:28)
[2018-05-12 06:15] VITALS: BP 152/63
[2018-05-12] MEDS: CLONIDINE HCL 0.1 MG TABLET GT PRN (06:30)
[2018-05-12 07:31] LABS: BASOPHILS # (AUTO) 0.1 /CMM (0.0-0.2); BASOPHILS % (AUTO) 0.6 % (0.0-2.0); EOSINOPHILS % (AUTO) 3.3 % (0.0-6.0); HEMATOCRIT 36 % (33-45); HEMOGLOBIN 11.2 g/dL (11.5-14.8); LYMPHOCYTES # (AUTO) 1.2 /CMM (0.8-4.8); LYMPHOCYTES % (AUTO) 12.7 % (20.0-44.0); MEAN CORPUSCULAR HGB CONC 31 g/dl (31.0-36.0); MEAN CORPUSCULAR VOLUME 75 fL (82-100); MONOCYTES # (AUTO) 0.9 /CMM (0.1-1.30); MONOCYTES % (AUTO) 9.8 % (2.0-12.0); NEUTROPHILS # (AUTO) 6.9 /CMM (1.8-8.9); NEUTROPHILS % (AUTO) 73.6 % (43.0-81.0); PLATELET COUNT (AUTO) 256 /CMM (150-450); RED BLOOD CELL COUNT(AUTO) 4.78 MIL/uL (4.0-5.2); WHITE BLOOD COUNT (AUTO) 9.3 K/uL (4.3-11.0)
[2018-05-12 07:43] LABS: CALCIUM, SERUM 9.5 mg/dL (8.5-10.1); CARBON DIOXIDE 27 mmol/L (21-32); CHLORIDE 101 mmol/L (98-107); CREATININE 1.2 mg/dL (0.6-1.3); GLUCOSE 179 mg/dL (74-106); POTASSIUM 5.1 mmol/L (3.5-5.1); SODIUM SERUM 137 mmol/L (136-145)
[2018-05-12 07:52] LABS: UREA NITROGEN, BLOOD 80 mg/dL (7-18)
[2018-05-12 08:03] VITALS: BP 116/56
--- NOTE | 2018-05-12 08:29 | NUR ---
PT REC'D TRACHED ON [facility] VENT ON AC MODE. NO RESP DISTRESS OR SOB NOTED. TRACH PATENT AND SECURED. SX'D FOR THICK MOD AMT OF PALE YELLWO SECRETIONS. ALARMS ARE SET AND AUDIBLE. VENT PLUGGED INTO RED OUTLET. AMBU BAG BEDSIDE. WILL CONTINUE TO MONITOR. Addendum: 05/12/18 at 0914 by TALA YAO RT Amended: Links added.
[2018-05-12] MEDS: MAGNESIUM OXIDE 400 MG TABLET GT SCH (09:00)
[2018-05-12] MEDS: ACETAMINOPHEN 650 MG/20.3 ML UDC PO SCH ×2 (09:00→21:30)
[2018-05-12] MEDS: ACIDOPHILUS/BULGARICUS 1 EACH TAB.CHEW GT SCH ×2 (09:00→21:30)
[2018-05-12] MEDS: DOCUSATE SODIUM LIQ 100 MG/10 ML UDC GT SCH (09:00)
[2018-05-12] MEDS: AMLODIPINE BESYLATE 5 MG TABLET GT SCH (09:00)
[2018-05-12] MEDS: VITS A AND D/WHITE PET/LANOLIN 5 GM PACKET TP SCH ×2 (09:00→21:57)
[2018-05-12] MEDS: DAKINS HALF STRENGTH (0.25%) 480 ML BOTTLE TOP SCH (09:00)
[2018-05-12] MEDS: NYSTATIN/TRIAMCIN OINT 30 GM TUBE TP SCH (09:00)
[2018-05-12] MEDS: ASCORBIC ACID 500 MG TABLET GT SCH (09:00)
[2018-05-12] MEDS: PROSTAT (PYXIS) 30 ML UDC GT SCH ×2 (09:00→17:15)
[2018-05-12] MEDS: ZINC SULFATE 220 MG CAPSULE GT SCH (09:00)
[2018-05-12] MEDS: HYDROGEN PEROXIDE 480 ML BOTTLE TP SCH ×2 (09:00→21:30)
[2018-05-12] MEDS: METOPROLOL TARTRATE 25 MG TABLET GT SCH ×2 (09:00→21:30)
[2018-05-12] MEDS: Z GUARD REMEDY 4 OZ OINT TP SCH ×2 (09:00→21:57)
[2018-05-12] MEDS: MULTIVIT W/MINERALS 1 TAB TABLET GT SCH (09:00)
[2018-05-12] MEDS: SENNOSIDES 8.6 MG TABLET GT SCH ×2 (09:00→21:30)
--- NOTE | 2018-05-12 09:00 | NUR ---
Seen by Dr Agarwal. Notified him that pt's BUN is 80. No new order at this time.
[2018-05-12 12:00] VITALS: BP 140/62
[2018-05-12] MEDS: MAGNESIUM HYDROXIDE 30 ML UDC GT PRN (12:00)
[2018-05-12] MEDS: CEFTRIAXONE 1 G in IV D5W 50 ML IV SCH (13:00)
[2018-05-12 18:10] VITALS: BP 112/59
--- NOTE | 2018-05-12 19:40 | NUR ---
RT NOTE PT RECEIVED ON [facility] VENT ON THE FOLLOWING NOTED SETTINGS. NO RESP DISTRESS OR SOB NOTED AT THIS TIME. BREATHING TX GIVEN, NO ADVERSE REACTIONS NOTED. PT SUCTIONED: MOD THIN WHITE/YELLOW SECRETIONS. VENT IS PLUGGED INTO RED OUTLET. ALARMS ARE ON AND AUDIBLE. SPARE TRACH AND AMBU BAG ARE AT BEDSIDE. WILL CONT TO MONITOR PT. Addendum: 05/12/18 at 1941 by MEI SANTANA RT Amended: Links added.
[2018-05-12] MEDS: INSULIN DETEMIR 100 UNIT/ML CARTRIDGE SQ SCH (22:17)
[2018-05-13] MEDS: BLOOD SUGAR DIAGNOSTIC 1 EACH STRIP IN SCH ×4 (00:04→17:52)
[2018-05-13] MEDS: INSULIN REGULAR, HUMAN 100 UNIT/ML 3 ML VIAL SQ PRN ×4 (00:07→17:54)
[2018-05-13 00:23] VITALS: BP 126/57
[2018-05-13] MEDS: IPRATROPIUM NEB FS 0.5 MG/2.5 ML AMPUL.NEB NEB SCH ×4 (01:45→19:30)
[2018-05-13] MEDS: GLUCERNA 1.2 1,000 ML BOTTLE GT PRN (05:53)
[2018-05-13 06:06] VITALS: BP 139/74
[2018-05-13] MEDS: BISACODYL SUPP (10 MG) 10 MG/SUPP.RECT SUPP.RECT RC PRN (06:43)
[2018-05-13 07:52] VITALS: BP 148/76
[2018-05-13] MEDS: Z GUARD REMEDY 4 OZ OINT TP SCH ×2 (09:00→21:54)
[2018-05-13] MEDS: VITS A AND D/WHITE PET/LANOLIN 5 GM PACKET TP SCH ×2 (09:00→21:54)
[2018-05-13] MEDS: NYSTATIN/TRIAMCIN OINT 30 GM TUBE TP SCH (09:00)
[2018-05-13] MEDS: HYDROGEN PEROXIDE 480 ML BOTTLE TP SCH ×2 (09:00→21:54)
[2018-05-13] MEDS: DAKINS HALF STRENGTH (0.25%) 480 ML BOTTLE TOP SCH (09:00)
[2018-05-13] MEDS: MAGNESIUM OXIDE 400 MG TABLET GT SCH (09:45)
[2018-05-13] MEDS: PROSTAT (PYXIS) 30 ML UDC GT SCH ×2 (09:45→17:52)
[2018-05-13] MEDS: DOCUSATE SODIUM LIQ 100 MG/10 ML UDC GT SCH (09:45)
[2018-05-13] MEDS: ACIDOPHILUS/BULGARICUS 1 EACH TAB.CHEW GT SCH ×2 (09:45→21:20)
[2018-05-13] MEDS: SENNOSIDES 8.6 MG TABLET GT SCH ×2 (09:45→21:21)
[2018-05-13] MEDS: AMLODIPINE BESYLATE 5 MG TABLET GT SCH (09:46)
[2018-05-13] MEDS: ACETAMINOPHEN 650 MG/20.3 ML UDC PO SCH ×2 (09:46→21:21)
[2018-05-13] MEDS: METOPROLOL TARTRATE 25 MG TABLET GT SCH ×2 (09:46→21:21)
[2018-05-13] MEDS: MULTIVIT W/MINERALS 1 TAB TABLET GT SCH (09:46)
[2018-05-13] MEDS: ASCORBIC ACID 500 MG TABLET GT SCH (09:46)
[2018-05-13] MEDS: ZINC SULFATE 220 MG CAPSULE GT SCH (09:46)
[2018-05-13 12:00] VITALS: BP 135/70
[2018-05-13] MEDS: CEFTRIAXONE 1 G in IV D5W 50 ML IV SCH (13:00)
[2018-05-13 18:57] VITALS: BP 132/65
[2018-05-13] MEDS: INSULIN DETEMIR 100 UNIT/ML CARTRIDGE SQ SCH (21:54)
[2018-05-14 00:20] VITALS: BP 145/64
[2018-05-14] MEDS: BLOOD SUGAR DIAGNOSTIC 1 EACH STRIP IN SCH ×4 (00:54→18:09)
[2018-05-14] MEDS: INSULIN REGULAR, HUMAN 100 UNIT/ML 3 ML VIAL SQ PRN ×4 (00:55→18:10)
[2018-05-14 01:18] VITALS: BP 156/55
[2018-05-14] MEDS: IPRATROPIUM NEB FS 0.5 MG/2.5 ML AMPUL.NEB NEB SCH ×4 (01:58→19:45)
[2018-05-14] MEDS: GLUCERNA 1.2 1,000 ML BOTTLE GT PRN (05:59)
[2018-05-14] MEDS: CLONIDINE HCL 0.1 MG TABLET GT PRN (05:59)
[2018-05-14 06:03] VITALS: BP 159/58
[2018-05-14 07:39] VITALS: BP 110/71
[2018-05-14] MEDS: ACIDOPHILUS/BULGARICUS 1 EACH TAB.CHEW GT SCH ×2 (09:43→21:31)
[2018-05-14] MEDS: DOCUSATE SODIUM LIQ 100 MG/10 ML UDC GT SCH (09:43)
[2018-05-14] MEDS: AMLODIPINE BESYLATE 5 MG TABLET GT SCH (09:43)
[2018-05-14] MEDS: MAGNESIUM OXIDE 400 MG TABLET GT SCH (09:43)
[2018-05-14] MEDS: METOPROLOL TARTRATE 25 MG TABLET GT SCH ×2 (09:43→21:31)
[2018-05-14] MEDS: DAKINS HALF STRENGTH (0.25%) 480 ML BOTTLE TOP SCH (09:44)
[2018-05-14] MEDS: ZINC SULFATE 220 MG CAPSULE GT SCH (09:44)
[2018-05-14] MEDS: VITS A AND D/WHITE PET/LANOLIN 5 GM PACKET TP SCH ×2 (09:44→21:57)
[2018-05-14] MEDS: PROSTAT (PYXIS) 30 ML UDC GT SCH ×2 (09:44→17:30)
[2018-05-14] MEDS: ACETAMINOPHEN 650 MG/20.3 ML UDC PO SCH ×2 (09:44→21:31)
[2018-05-14] MEDS: NYSTATIN/TRIAMCIN OINT 30 GM TUBE TP SCH (09:44)
[2018-05-14] MEDS: Z GUARD REMEDY 4 OZ OINT TP SCH ×2 (09:44→21:57)
[2018-05-14] MEDS: MULTIVIT W/MINERALS 1 TAB TABLET GT SCH (09:44)
[2018-05-14] MEDS: SENNOSIDES 8.6 MG TABLET GT SCH ×2 (09:44→21:31)
[2018-05-14] MEDS: HYDROGEN PEROXIDE 480 ML BOTTLE TP SCH ×2 (09:44→21:57)
[2018-05-14] MEDS: ASCORBIC ACID 500 MG TABLET GT SCH (09:44)
[2018-05-14] MEDS: CEFTRIAXONE 1 G in IV D5W 50 ML IV SCH (13:51)
--- NOTE | 2018-05-14 16:41 | NUR ---
Dr. Aguirre made rounds and made aware that there is pus coming out from the left foot wound, patient continue on IV antibiotic. NNO given. Resident's daughter Jennifer at bedside and updated her of patient's wound progress and the pus coming out from patient's L foot. Daughter is pleased with progress of the wound.
[2018-05-14 18:23] VITALS: BP 115/65
--- NOTE | 2018-05-14 19:46 | NUR ---
RT NOTE: RECEIVED TRACH PT ON [facility] VENT ON NOTED SETTINGS PER MD ORDERS. TRACH IS PATENT AND SECURED. CLOCK MAKER DONE. Q6 BREATHING TX GIVEN WITH NO ADVERSE REACTION NOTED. SX DONE PRN. VENT PLUGGED INTO RED OUTLET. ALARMS ON AND AUDIBLE. FROY BAG @ BEDSIDE. NO RESP DISTRESS AT THIS TIME. WILL CONT TO MONITOR PT. Addendum: 05/14/18 at 2223 by PREMA SOTO RT Amended: Links added.
[2018-05-14 21:09] VITALS: BP 122/57
[2018-05-14] MEDS: INSULIN DETEMIR 100 UNIT/ML CARTRIDGE SQ SCH (22:33)
[2018-05-15 00:25] VITALS: BP 140/76
[2018-05-15] MEDS: BLOOD SUGAR DIAGNOSTIC 1 EACH STRIP IN SCH ×4 (00:55→18:08)
[2018-05-15] MEDS: INSULIN REGULAR, HUMAN 100 UNIT/ML 3 ML VIAL SQ PRN ×4 (00:57→18:09)
[2018-05-15] MEDS: IPRATROPIUM NEB FS 0.5 MG/2.5 ML AMPUL.NEB NEB SCH ×4 (01:17→19:54)
[2018-05-15] MEDS: GLUCERNA 1.2 1,000 ML BOTTLE GT PRN (05:41)
[2018-05-15 06:12] VITALS: BP 140/73
[2018-05-15 07:58] VITALS: BP 124/66
[2018-05-15] MEDS: AMLODIPINE BESYLATE 5 MG TABLET GT SCH (09:44)
[2018-05-15] MEDS: DOCUSATE SODIUM LIQ 100 MG/10 ML UDC GT SCH (09:44)
[2018-05-15] MEDS: MAGNESIUM OXIDE 400 MG TABLET GT SCH (09:44)
[2018-05-15] MEDS: PROSTAT (PYXIS) 30 ML UDC GT SCH ×2 (09:44→17:23)
[2018-05-15] MEDS: ACIDOPHILUS/BULGARICUS 1 EACH TAB.CHEW GT SCH ×2 (09:44→21:37)
[2018-05-15] MEDS: MULTIVIT W/MINERALS 1 TAB TABLET GT SCH (09:44)
[2018-05-15] MEDS: SENNOSIDES 8.6 MG TABLET GT SCH ×2 (09:44→21:37)
[2018-05-15] MEDS: ZINC SULFATE 220 MG CAPSULE GT SCH (09:44)
[2018-05-15] MEDS: ASCORBIC ACID 500 MG TABLET GT SCH (09:44)
[2018-05-15] MEDS: METOPROLOL TARTRATE 25 MG TABLET GT SCH ×2 (09:44→21:37)
[2018-05-15] MEDS: ACETAMINOPHEN 650 MG/20.3 ML UDC PO SCH ×2 (11:30→21:37)
[2018-05-15 12:00] VITALS: BP 118/67
[2018-05-15] MEDS: VITS A AND D/WHITE PET/LANOLIN 5 GM PACKET TP SCH ×2 (12:00→21:38)
[2018-05-15] MEDS: NYSTATIN/TRIAMCIN OINT 30 GM TUBE TP SCH (12:00)
[2018-05-15] MEDS: HYDROGEN PEROXIDE 480 ML BOTTLE TP SCH ×2 (12:00→21:37)
[2018-05-15] MEDS: DAKINS HALF STRENGTH (0.25%) 480 ML BOTTLE TOP SCH (12:00)
[2018-05-15] MEDS: Z GUARD REMEDY 4 OZ OINT TP SCH ×2 (12:00→21:38)
[2018-05-15] MEDS: CEFTRIAXONE 1 G in IV D5W 50 ML IV SCH (13:00)
--- NOTE | 2018-05-15 16:04 | NUR ---
Pt was noted with left buttock MASD earlier this morning. Seen by Dr Ralph Mendoza. He ordered to apply Z-guard cream and Mepilex. Dr Ralph Mendoza debrided pt's sacral wound and ordered to change treatment to Hydrogel and Mepilex. Notified Jennifer.
[2018-05-15 18:33] VITALS: BP 123/56
[2018-05-15 21:03] VITALS: BP 127/64
[2018-05-15] MEDS: Z GUARD REMEDY 2 OZ OINT TP SCH (21:37)
[2018-05-15] MEDS: INSULIN DETEMIR 100 UNIT/ML CARTRIDGE SQ SCH (21:38)
[2018-05-16] VITALS: BP 132/66
[2018-05-16] MEDS: BLOOD SUGAR DIAGNOSTIC 1 EACH STRIP IN SCH ×4 (00:11→17:47)
[2018-05-16] MEDS: INSULIN REGULAR, HUMAN 100 UNIT/ML 3 ML VIAL SQ PRN ×4 (00:13→17:48)
[2018-05-16] MEDS: CLONIDINE HCL 0.1 MG TABLET GT PRN (00:14)
[2018-05-16] MEDS: IPRATROPIUM NEB FS 0.5 MG/2.5 ML AMPUL.NEB NEB SCH ×4 (01:28→19:45)
[2018-05-16] MEDS: GLUCERNA 1.2 1,000 ML BOTTLE GT PRN (02:00)
[2018-05-16 06:00] VITALS: BP 112/61
--- NOTE | 2018-05-16 07:40 | NUR ---
Received a trach pt a mechanical vent. Pt trach is secure. Vent is plugged into a red outlet, alarms are set and audible, and BMV is at bedside. Addendum: 05/16/18 at 0741 by SHIMA GONZALES RT Amended: Links added.
[2018-05-16 08:03] VITALS: BP 128/72
[2018-05-16] MEDS: HYDROGEL DRESSING 90 GM TUBE TP SCH (09:00)
[2018-05-16] MEDS: Z GUARD REMEDY 4 OZ OINT TP SCH ×2 (09:00→21:31)
[2018-05-16] MEDS: HYDROGEN PEROXIDE 480 ML BOTTLE TP SCH ×2 (09:00→21:31)
[2018-05-16] MEDS ORDERED: NYSTATIN/TRIAMCIN 15 GM CREAM 15 GM TUBE TP SCH (09:00)
[2018-05-16] MEDS: VITS A AND D/WHITE PET/LANOLIN 5 GM PACKET TP SCH ×2 (09:00→21:31)
[2018-05-16] MEDS: Z GUARD REMEDY 2 OZ OINT TP SCH ×2 (09:00→21:31)
[2018-05-16] MEDS: DAKINS HALF STRENGTH (0.25%) 480 ML BOTTLE TOP SCH (09:00)
[2018-05-16] MEDS: MULTIVIT W/MINERALS 1 TAB TABLET GT SCH (09:07)
[2018-05-16] MEDS: PROSTAT (PYXIS) 30 ML UDC GT SCH ×2 (09:07→17:47)
[2018-05-16] MEDS: ASCORBIC ACID 500 MG TABLET GT SCH (09:07)
[2018-05-16] MEDS: ZINC SULFATE 220 MG CAPSULE GT SCH (09:07)
[2018-05-16] MEDS: AMLODIPINE BESYLATE 5 MG TABLET GT SCH (09:07)
[2018-05-16] MEDS: DOCUSATE SODIUM LIQ 100 MG/10 ML UDC GT SCH (09:07)
[2018-05-16] MEDS: ACIDOPHILUS/BULGARICUS 1 EACH TAB.CHEW GT SCH ×2 (09:07→20:26)
[2018-05-16] MEDS: SENNOSIDES 8.6 MG TABLET GT SCH ×2 (09:07→20:27)
[2018-05-16] MEDS: ACETAMINOPHEN 650 MG/20.3 ML UDC PO SCH ×2 (09:07→20:27)
[2018-05-16] MEDS: METOPROLOL TARTRATE 25 MG TABLET GT SCH ×2 (09:07→20:27)
[2018-05-16] MEDS: MAGNESIUM OXIDE 400 MG TABLET GT SCH (09:07)
[2018-05-16 12:00] VITALS: BP 131/79
[2018-05-16] MEDS: CEFTRIAXONE 1 G in IV D5W 50 ML IV SCH (12:35)
--- NOTE | 2018-05-16 13:43 | NUR ---
Dr. Tan notified that there has been pus coming out of resident's L foot wound. assessed L foot wound and packed with moistened gauze. The wound has undermining of about 3 cm. Will continue with current treatment but will packed wound with moistened gauze with 1/2 strength Dakin's. Order noted and carried out.
--- NOTE | 2018-05-16 15:37 | NUR ---
Seen and examined by Dr. Hunt, made aware that L foot wound has pus coming out however Dr. Dudley saw the resident and packed L foot wound today. NNO given at this time.
[2018-05-16 18:35] VITALS: BP 132/77
[2018-05-16 19:55] VITALS: BP 150/64
[2018-05-16] MEDS: INSULIN DETEMIR 100 UNIT/ML CARTRIDGE SQ SCH (21:32)
[2018-05-17] MEDS: BLOOD SUGAR DIAGNOSTIC 1 EACH STRIP IN SCH ×4 (00:12→17:38)
[2018-05-17 00:14] VITALS: BP 130/68
[2018-05-17] MEDS: INSULIN REGULAR, HUMAN 100 UNIT/ML 3 ML VIAL SQ PRN ×4 (00:14→17:39)
[2018-05-17] MEDS: IPRATROPIUM NEB FS 0.5 MG/2.5 ML AMPUL.NEB NEB SCH ×4 (01:24→19:34)
[2018-05-17] MEDS: GLUCERNA 1.2 1,000 ML BOTTLE GT PRN (05:40)
[2018-05-17 06:13] VITALS: BP 128/75
[2018-05-17 07:30] VITALS: BP 149/79
[2018-05-17] MEDS: MAGNESIUM OXIDE 400 MG TABLET GT SCH (09:13)
[2018-05-17] MEDS: ASCORBIC ACID 500 MG TABLET GT SCH (09:13)
[2018-05-17] MEDS: DOCUSATE SODIUM LIQ 100 MG/10 ML UDC GT SCH (09:13)
[2018-05-17] MEDS: ZINC SULFATE 220 MG CAPSULE GT SCH (09:13)
[2018-05-17] MEDS: MULTIVIT W/MINERALS 1 TAB TABLET GT SCH (09:13)
[2018-05-17] MEDS: SENNOSIDES 8.6 MG TABLET GT SCH ×2 (09:13→20:48)
[2018-05-17] MEDS: ACETAMINOPHEN 650 MG/20.3 ML UDC PO SCH ×2 (09:13→20:48)
[2018-05-17] MEDS: PROSTAT (PYXIS) 30 ML UDC GT SCH ×2 (09:13→17:38)
[2018-05-17] MEDS: ACIDOPHILUS/BULGARICUS 1 EACH TAB.CHEW GT SCH ×2 (09:13→20:47)
[2018-05-17] MEDS: METOPROLOL TARTRATE 25 MG TABLET GT SCH ×2 (09:14→20:48)
[2018-05-17] MEDS: AMLODIPINE BESYLATE 5 MG TABLET GT SCH (09:15)
--- NOTE | 2018-05-17 10:53 | NUR ---
PT RCVD TRACH'D ON MECHANICAL VENT WITH CHARTED SETTINGS. HHN TX GIVEN WITH NO ADVERSE REACTION NOTED. SX DONE. PT TRACH PATENT AND SECURE. ALARMS ARE ON AND AUDIBLE. VENT PLUGGED INTO RED OUTLET. AMBU BAG AT BEDSIDE. WILL CONTINUE TO MONITOR. Addendum: 05/17/18 at 1053 by FELICITAS CHRISTIE RT Amended: Links added.
[2018-05-17 12:00] VITALS: BP 141/80
[2018-05-17] MEDS: HYDROGEN PEROXIDE 480 ML BOTTLE TP SCH ×2 (12:15→21:17)
[2018-05-17] MEDS: VITS A AND D/WHITE PET/LANOLIN 5 GM PACKET TP SCH ×2 (12:15→21:17)
[2018-05-17] MEDS: DAKINS HALF STRENGTH (0.25%) 480 ML BOTTLE TOP SCH (12:15)
[2018-05-17] MEDS: Z GUARD REMEDY 2 OZ OINT TP SCH ×2 (12:15→21:17)
[2018-05-17] MEDS: HYDROGEL DRESSING 90 GM TUBE TP SCH (12:15)
[2018-05-17] MEDS: Z GUARD REMEDY 4 OZ OINT TP SCH ×2 (12:15→21:17)
[2018-05-17] MEDS: CEFTRIAXONE 1 G in IV D5W 50 ML IV SCH (12:31)
--- NOTE | 2018-05-17 17:08 | NUR ---
Seen and examined by PROFESSOR OF POULTRY SCIENCE Carole Dodd no new order given. Will continue with plan of care. Afebrile.
[2018-05-17 18:41] VITALS: BP 137/72
[2018-05-17 19:47] VITALS: BP 148/79
[2018-05-17] MEDS: INSULIN DETEMIR 100 UNIT/ML CARTRIDGE SQ SCH (22:11)
--- NOTE | 2018-05-17 23:02 | NUR ---
RT NOTE PATIENT WAS RECEIVED ON CONTINUOUS VENT SUPPORT ON NOTED VENT SETTINGS. HHN INLINE TREATMENT WAS GIVEN, NO ADVERSE REACTION NOTED ,PRN SUCTION WAS DONE. TRACH TUBE PATENT AND SECURED. ALARMS ON AND AUDIBLE. WILL CONTINUE TO MONITOR PATIENT Addendum: 05/17/18 at 2302 by NYA RICHARDS RT Amended: Links added.
[2018-05-18] VITALS (8 sets, daily range): BP systolic 114–149; BP diastolic 62–72
[2018-05-18] MEDS: INSULIN REGULAR, HUMAN 100 UNIT/ML 3 ML VIAL SQ PRN ×5 (00:59→23:21)
[2018-05-18] MEDS: BLOOD SUGAR DIAGNOSTIC 1 EACH STRIP IN SCH ×5 (00:59→23:19)
[2018-05-18] MEDS: IPRATROPIUM NEB FS 0.5 MG/2.5 ML AMPUL.NEB NEB SCH ×4 (01:36→19:53)
[2018-05-18] MEDS: GLUCERNA 1.2 1,000 ML BOTTLE GT PRN (06:01)
[2018-05-18] MEDS: MAGNESIUM OXIDE 400 MG TABLET GT SCH (08:52)
[2018-05-18] MEDS: DOCUSATE SODIUM LIQ 100 MG/10 ML UDC GT SCH (08:52)
[2018-05-18] MEDS: AMLODIPINE BESYLATE 5 MG TABLET GT SCH (08:52)
[2018-05-18] MEDS: ACIDOPHILUS/BULGARICUS 1 EACH TAB.CHEW GT SCH ×2 (08:52→21:10)
[2018-05-18] MEDS: METOPROLOL TARTRATE 25 MG TABLET GT SCH ×2 (08:52→21:10)
[2018-05-18] MEDS: ACETAMINOPHEN 650 MG/20.3 ML UDC PO SCH ×2 (08:53→21:10)
[2018-05-18] MEDS: ASCORBIC ACID 500 MG TABLET GT SCH (08:53)
[2018-05-18] MEDS: SENNOSIDES 8.6 MG TABLET GT SCH ×2 (08:53→21:10)
[2018-05-18] MEDS: MULTIVIT W/MINERALS 1 TAB TABLET GT SCH (08:53)
[2018-05-18] MEDS: PROSTAT (PYXIS) 30 ML UDC GT SCH ×2 (08:53→17:35)
[2018-05-18] MEDS: ZINC SULFATE 220 MG CAPSULE GT SCH (08:53)
[2018-05-18] MEDS: DAKINS HALF STRENGTH (0.25%) 480 ML BOTTLE TOP SCH (09:30)
[2018-05-18] MEDS: Z GUARD REMEDY 2 OZ OINT TP SCH ×2 (09:30→21:11)
[2018-05-18] MEDS: VITS A AND D/WHITE PET/LANOLIN 5 GM PACKET TP SCH ×2 (09:30→21:11)
[2018-05-18] MEDS: Z GUARD REMEDY 4 OZ OINT TP SCH ×2 (09:30→21:11)
[2018-05-18] MEDS: HYDROGEL DRESSING 90 GM TUBE TP SCH (09:30)
[2018-05-18] MEDS: HYDROGEN PEROXIDE 480 ML BOTTLE TP SCH ×2 (09:30→21:11)
--- NOTE | 2018-05-18 11:46 | NUR ---
RT RECD PT TRACHED INTACT & SECURED ON MECH VENT BIRDIE ORDERED SETTINGS ALARMS ON AND AUDIBLE BAG AND MASK AT HOB SX THICK MOD YELLOW SECRETIONS NO RESP DISTRESS THROUGHOUT SHIFT WILL CONT TO MONITOR
[2018-05-18] MEDS: CEFTRIAXONE 1 G in IV D5W 50 ML IV SCH (12:52)
--- NOTE | 2018-05-18 18:34 | NUR ---
Resident's daughter at bedside and updated her of patient's condition. Informed Jennifer that patient's GT has small hole and therefore tends to leak. Will refer it to lindaiisander WATTERS in AM for GI consult. She said that she can be reach anytime tomorrow if consent is needed for GT replacement. Jennifer also made aware that patient's L foot wound has pus and with 3 cm. undermining, she is in agreement for patient to receive stronger pain medication prior to treatment. Resident's daughter mentioned that she received a new Medicare card for her mother in the mail and will bring a copy for her file. Endorsed to follow-up in AM.
--- NOTE | 2018-05-18 19:53 | NUR ---
RT NOTE: RECEIVED TRACH PT ON [facility] VENT ON NOTED SETTINGS PER MD ORDERS. TRACH IS PATENT AND SECURED. DRAPERY HAND DONE. Q6 BREATHING TX GIVEN WITH NO ADVERSE REACTION NOTED. SX DONE PRN. VENT PLUGGED INTO RED OUTLET. ALARMS ON AND AUDIBLE. FROY BAG @ BEDSIDE. NO RESP DISTRESS AT THIS TIME. WILL CONT TO MONITOR PT. Addendum: 05/19/18 at 0240 by PREMA SOTO RT Amended: Links added.
[2018-05-18] MEDS: INSULIN DETEMIR 100 UNIT/ML CARTRIDGE SQ SCH (22:00)
[2018-05-19 00:08] VITALS: BP 121/60
[2018-05-19] MEDS: IPRATROPIUM NEB FS 0.5 MG/2.5 ML AMPUL.NEB NEB SCH ×4 (01:39→19:39)
[2018-05-19] MEDS: BLOOD SUGAR DIAGNOSTIC 1 EACH STRIP IN SCH ×3 (05:55→17:18)
[2018-05-19] MEDS: INSULIN REGULAR, HUMAN 100 UNIT/ML 3 ML VIAL SQ PRN ×3 (06:01→17:19)
[2018-05-19] MEDS: GLUCERNA 1.2 1,000 ML BOTTLE GT PRN (06:04)
[2018-05-19 06:59] VITALS: BP 130/72
[2018-05-19 07:45] VITALS: BP 141/62
[2018-05-19] MEDS: ACIDOPHILUS/BULGARICUS 1 EACH TAB.CHEW GT SCH ×2 (08:51→21:27)
[2018-05-19] MEDS: DOCUSATE SODIUM LIQ 100 MG/10 ML UDC GT SCH (08:51)
[2018-05-19] MEDS: ACETAMINOPHEN 650 MG/20.3 ML UDC PO SCH ×2 (08:52→21:28)
[2018-05-19] MEDS: PROSTAT (PYXIS) 30 ML UDC GT SCH ×2 (08:52→17:18)
[2018-05-19] MEDS: METOPROLOL TARTRATE 25 MG TABLET GT SCH ×2 (08:52→21:28)
[2018-05-19] MEDS: MAGNESIUM OXIDE 400 MG TABLET GT SCH (08:52)
[2018-05-19] MEDS: ASCORBIC ACID 500 MG TABLET GT SCH (08:52)
[2018-05-19] MEDS: SENNOSIDES 8.6 MG TABLET GT SCH ×2 (08:52→21:28)
[2018-05-19] MEDS: ZINC SULFATE 220 MG CAPSULE GT SCH (08:52)
[2018-05-19] MEDS: MULTIVIT W/MINERALS 1 TAB TABLET GT SCH (08:52)
[2018-05-19] MEDS: AMLODIPINE BESYLATE 5 MG TABLET GT SCH (08:52)
--- NOTE | 2018-05-19 09:18 | NUR ---
RT NOTE RECEIVED PT MECHANICALLY VENTILATED VIA CUFF TRACHEOSTOMY TUBE. CUFF INFLATED. TRACH TUBE MIDLINE AND SECURE. VENTILATOR SETTINGS PRESCRIBED. ALARMS SET PER PROTOCOL AND AUDIBLE. VENT PLUGGED IN TO RED OUTLET. AMBU BAG AT BED SIDE. NO DISTRESS NOTED AT MOMENT. Addendum: 05/19/18 at 0919 by JYOTHI RICHARDS RT Amended: Links added.
[2018-05-19] MEDS: Z GUARD REMEDY 4 OZ OINT TP SCH ×2 (09:30→21:57)
[2018-05-19] MEDS: HYDROGEL DRESSING 90 GM TUBE TP SCH (09:30)
[2018-05-19] MEDS: DAKINS HALF STRENGTH (0.25%) 480 ML BOTTLE TOP SCH (09:30)
[2018-05-19] MEDS: HYDROGEN PEROXIDE 480 ML BOTTLE TP SCH ×2 (09:30→21:57)
[2018-05-19] MEDS: VITS A AND D/WHITE PET/LANOLIN 5 GM PACKET TP SCH ×2 (09:30→21:57)
[2018-05-19] MEDS: Z GUARD REMEDY 2 OZ OINT TP SCH ×2 (09:30→21:57)
--- NOTE | 2018-05-19 09:55 | NUR ---
Notified Dr Hunt that pt's G-tube was leaking because of a big hole in the tube and the nurses last night cut it to bypass the hole. Dr Hunt ordered GI consult.
--- NOTE | 2018-05-19 11:54 | NUR ---
Called Dr Cruz's office [phone] for GI consult. Left message with Echo.
[2018-05-19 12:15] VITALS: BP 144/80
[2018-05-19] MEDS: CEFTRIAXONE 1 G in IV D5W 50 ML IV SCH (13:00)
--- NOTE | 2018-05-19 15:24 | NUR ---
Dr Cruz came to see the pt. Showed him that pt's G-tube is now short since the nurses cut the tube last night to bypass the big hole. Dr Cruz said that since the G-tube is still functioning, he will not change it. He said to call him if there is any other problem with the G-tube. Addendum: 05/19/18 at 1529 by MARCELLA MITCHELL RN Night charge nurse reported that the G-tube was leaking a lot last night because the hole got bigger.
--- NOTE | 2018-05-19 16:03 | NUR ---
YNES QUICK spoke to resident's daughter on the phone communicating upcoming IDT mtg this SaturdayMay 24 at 12:30. Daughter said she will not be able to make it.
[2018-05-19 18:33] VITALS: BP 114/56
[2018-05-19 20:37] VITALS: BP 124/58
--- NOTE | 2018-05-19 21:05 | NUR ---
PT RCVD CLARISSE'D ON MECHANICAL VENT WITH CHARTED SETTINGS. HHN TX GIVEN WITH NO ADVERSE REACTION NOTED. SX DONE. PT TRACH PATENT AND SECURE. ALARMS ARE ON AND AUDIBLE. VENT PLUGGED INTO RED OUTLET. AMBU BAG AT BEDSIDE. WILL CONTINUE TO MONITOR. Addendum: 05/19/18 at 2105 by CHAZ ESTRELLA RT Amended: Links added.
[2018-05-19] MEDS: INSULIN DETEMIR 100 UNIT/ML CARTRIDGE SQ SCH (22:22)
[2018-05-20] MEDS: BLOOD SUGAR DIAGNOSTIC 1 EACH STRIP IN SCH ×5 (00:19→23:49)
[2018-05-20] MEDS: INSULIN REGULAR, HUMAN 100 UNIT/ML 3 ML VIAL SQ PRN ×5 (00:21→23:51)
[2018-05-20 00:26] VITALS: BP 129/51
[2018-05-20] MEDS: IPRATROPIUM NEB FS 0.5 MG/2.5 ML AMPUL.NEB NEB SCH ×4 (00:38→19:19)
[2018-05-20] MEDS: GLUCERNA 1.2 1,000 ML BOTTLE GT PRN (05:50)
[2018-05-20 06:16] VITALS: BP 137/63
[2018-05-20 07:35] VITALS: BP 148/83
--- NOTE | 2018-05-20 08:01 | NUR ---
Pt received on a mechanical vent. Pt trach is secure. Vent is plugged into a red outlet, vent alarms are set and audible, and BMV is at bedside. Addendum: 05/20/18 at 0802 by SHIMA GONZALES RT Amended: Links added.
[2018-05-20] MEDS: DOCUSATE SODIUM LIQ 100 MG/10 ML UDC GT SCH (09:14)
[2018-05-20] MEDS: ACIDOPHILUS/BULGARICUS 1 EACH TAB.CHEW GT SCH ×2 (09:14→21:40)
[2018-05-20] MEDS: ZINC SULFATE 220 MG CAPSULE GT SCH (09:15)
[2018-05-20] MEDS: DAKINS HALF STRENGTH (0.25%) 480 ML BOTTLE TOP SCH (09:15)
[2018-05-20] MEDS: HYDROGEN PEROXIDE 480 ML BOTTLE TP SCH ×2 (09:15→21:41)
[2018-05-20] MEDS: ACETAMINOPHEN 650 MG/20.3 ML UDC PO SCH ×2 (09:15→21:41)
[2018-05-20] MEDS: METOPROLOL TARTRATE 25 MG TABLET GT SCH ×2 (09:15→21:41)
[2018-05-20] MEDS: VITS A AND D/WHITE PET/LANOLIN 5 GM PACKET TP SCH ×2 (09:15→21:41)
[2018-05-20] MEDS: PROSTAT (PYXIS) 30 ML UDC GT SCH ×2 (09:15→17:24)
[2018-05-20] MEDS: SENNOSIDES 8.6 MG TABLET GT SCH ×2 (09:15→21:41)
[2018-05-20] MEDS: MAGNESIUM OXIDE 400 MG TABLET GT SCH (09:15)
[2018-05-20] MEDS: Z GUARD REMEDY 2 OZ OINT TP SCH ×2 (09:15→21:41)
[2018-05-20] MEDS: MULTIVIT W/MINERALS 1 TAB TABLET GT SCH (09:15)
[2018-05-20] MEDS: HYDROGEL DRESSING 90 GM TUBE TP SCH (09:15)
[2018-05-20] MEDS: Z GUARD REMEDY 4 OZ OINT TP SCH ×2 (09:15→21:41)
[2018-05-20] MEDS: ASCORBIC ACID 500 MG TABLET GT SCH (09:15)
[2018-05-20] MEDS: AMLODIPINE BESYLATE 5 MG TABLET GT SCH (09:15)
[2018-05-20 12:34] VITALS: BP 150/72
[2018-05-20] MEDS: CEFTRIAXONE 1 G in IV D5W 50 ML IV SCH (13:49)
[2018-05-20 18:07] VITALS: BP 129/68
[2018-05-20 20:20] VITALS: BP 125/66
[2018-05-20] MEDS: INSULIN DETEMIR 100 UNIT/ML CARTRIDGE SQ SCH (21:44)
[2018-05-21] VITALS: BP 118/64
[2018-05-21] MEDS: IPRATROPIUM NEB FS 0.5 MG/2.5 ML AMPUL.NEB NEB SCH ×4 (01:00→19:58)
[2018-05-21] MEDS: BLOOD SUGAR DIAGNOSTIC 1 EACH STRIP IN SCH ×3 (05:39→18:21)
[2018-05-21] MEDS: INSULIN REGULAR, HUMAN 100 UNIT/ML 3 ML VIAL SQ PRN ×3 (05:39→18:24)
[2018-05-21 06:00] VITALS: BP 126/70
[2018-05-21] MEDS: ACIDOPHILUS/BULGARICUS 1 EACH TAB.CHEW GT SCH ×2 (09:55→21:34)
[2018-05-21] MEDS: MAGNESIUM OXIDE 400 MG TABLET GT SCH (09:55)
[2018-05-21] MEDS: DOCUSATE SODIUM LIQ 100 MG/10 ML UDC GT SCH (09:55)
[2018-05-21] MEDS: METOPROLOL TARTRATE 25 MG TABLET GT SCH ×2 (09:55→21:35)
[2018-05-21] MEDS: SENNOSIDES 8.6 MG TABLET GT SCH ×2 (09:56→21:35)
[2018-05-21] MEDS: PROSTAT (PYXIS) 30 ML UDC GT SCH ×2 (09:56→17:00)
[2018-05-21] MEDS: MULTIVIT W/MINERALS 1 TAB TABLET GT SCH (09:56)
[2018-05-21] MEDS: AMLODIPINE BESYLATE 5 MG TABLET GT SCH (09:56)
[2018-05-21] MEDS: ZINC SULFATE 220 MG CAPSULE GT SCH (09:56)
[2018-05-21] MEDS: ACETAMINOPHEN 650 MG/20.3 ML UDC PO SCH ×2 (09:56→21:35)
[2018-05-21] MEDS: ASCORBIC ACID 500 MG TABLET GT SCH (09:56)
[2018-05-21] MEDS: Z GUARD REMEDY 2 OZ OINT TP SCH ×2 (10:56→21:54)
[2018-05-21] MEDS: DAKINS HALF STRENGTH (0.25%) 480 ML BOTTLE TOP SCH (10:56)
[2018-05-21] MEDS: VITS A AND D/WHITE PET/LANOLIN 5 GM PACKET TP SCH ×2 (10:56→21:54)
[2018-05-21] MEDS: Z GUARD REMEDY 4 OZ OINT TP SCH ×2 (10:56→21:54)
[2018-05-21] MEDS: HYDROGEL DRESSING 90 GM TUBE TP SCH (10:56)
[2018-05-21] MEDS: HYDROGEN PEROXIDE 480 ML BOTTLE TP SCH ×2 (10:56→21:54)
[2018-05-21 12:00] VITALS: BP 126/70
[2018-05-21] MEDS: CEFTRIAXONE 1 G in IV D5W 50 ML IV SCH (12:31)
[2018-05-21 19:00] VITALS: BP 132/68
[2018-05-21 19:50] VITALS: BP 151/65
[2018-05-21] MEDS: INSULIN DETEMIR 100 UNIT/ML CARTRIDGE SQ SCH (22:46)
[2018-05-22 00:36] VITALS: BP 154/73
[2018-05-22] MEDS: CLONIDINE HCL 0.1 MG TABLET GT PRN (00:37)
[2018-05-22] MEDS: BLOOD SUGAR DIAGNOSTIC 1 EACH STRIP IN SCH ×4 (00:59→18:50)
[2018-05-22] MEDS: INSULIN REGULAR, HUMAN 100 UNIT/ML 3 ML VIAL SQ PRN ×4 (01:01→18:52)
[2018-05-22] MEDS: IPRATROPIUM NEB FS 0.5 MG/2.5 ML AMPUL.NEB NEB SCH ×4 (02:06→19:53)
[2018-05-22 06:20] VITALS: BP 139/61
[2018-05-22] MEDS: GLUCERNA 1.2 1,000 ML BOTTLE GT PRN (06:27)
[2018-05-22] MEDS: MAGNESIUM HYDROXIDE 30 ML UDC GT PRN (07:11)
[2018-05-22 08:00] VITALS: BP 127/64
[2018-05-22] MEDS: DOCUSATE SODIUM LIQ 100 MG/10 ML UDC GT SCH (09:34)
[2018-05-22] MEDS: MAGNESIUM OXIDE 400 MG TABLET GT SCH (09:34)
[2018-05-22] MEDS: METOPROLOL TARTRATE 25 MG TABLET GT SCH ×2 (09:34→21:34)
[2018-05-22] MEDS: ACIDOPHILUS/BULGARICUS 1 EACH TAB.CHEW GT SCH ×2 (09:34→21:34)
[2018-05-22] MEDS: ACETAMINOPHEN 650 MG/20.3 ML UDC PO SCH (09:35)
[2018-05-22] MEDS: SENNOSIDES 8.6 MG TABLET GT SCH ×2 (09:35→21:34)
[2018-05-22] MEDS: ZINC SULFATE 220 MG CAPSULE GT SCH (09:35)
[2018-05-22] MEDS: ASCORBIC ACID 500 MG TABLET GT SCH (09:35)
[2018-05-22] MEDS: MULTIVIT W/MINERALS 1 TAB TABLET GT SCH (09:35)
[2018-05-22] MEDS: AMLODIPINE BESYLATE 5 MG TABLET GT SCH (09:35)
[2018-05-22] MEDS: PROSTAT (PYXIS) 30 ML UDC GT SCH ×2 (09:35→17:00)
[2018-05-22] MEDS: DAKINS HALF STRENGTH (0.25%) 480 ML BOTTLE TOP SCH (10:00)
[2018-05-22] MEDS: Z GUARD REMEDY 4 OZ OINT TP SCH ×2 (10:00→21:59)
[2018-05-22] MEDS: HYDROGEL DRESSING 90 GM TUBE TP SCH (10:00)
[2018-05-22] MEDS: VITS A AND D/WHITE PET/LANOLIN 5 GM PACKET TP SCH ×2 (10:00→21:59)
[2018-05-22] MEDS: HYDROGEN PEROXIDE 480 ML BOTTLE TP SCH ×2 (10:00→21:59)
[2018-05-22] MEDS: Z GUARD REMEDY 2 OZ OINT TP SCH ×2 (10:00→21:59)
[2018-05-22 12:28] VITALS: BP 138/77
--- NOTE | 2018-05-22 13:00 | NUR ---
Seen by Dr Hunt. Informed him that pt gets Tylenol 650 mg prior to wound treatment but pt still seems to have some pain while wound treatment is being done. Dr Hunt ordered to give Tramadol 50 mg GT q 8 hours PRN for moderate pain and give q shift 30 minutes prior to wound treatment instead of Tylenol. Pt has blood-tinged secretions from trach. Dr Hunt said to refer to Dr Agarwal if pt has more blood from trach.
--- NOTE | 2018-05-22 16:27 | NUR ---
Dr Dudley examined pt's left first metatarsal wound and removed the pus. Pt's daughter aware of the procedure and gave consent. Addendum: 05/22/18 at 1630 by MARCELLA MITCHELL RN Pt tolerated procedure well. Small amount of bleeding was noted while wound debridement was being done. Bleeding has stopped at this time. Dr Dudley dressed pt's wound.
--- NOTE | 2018-05-22 16:45 | NUR ---
RT NOTE: PATIENT RECEIVED TRACHED ON MECHANICAL VENT. ALARMS VERIFIED AND AUDIBLE. SUCTIONED AND LAVAGED BRIGHT BLOODY SECRETIONS IN THE MORNING (MICROWAVE RADIO TECHNICIAN NOTIFIED). SECRETIONS ARE NOW THICK WHITE WITH NO BLOOD NOTED AT THIS TIME. VENT PLUGGED INTO RED OUTLET. AMBU BAG AT [facility].
[2018-05-22 18:00] VITALS: BP 146/69
[2018-05-22 19:58] VITALS: BP 128/64
[2018-05-22] MEDS: TRAMADOL HCL 50 MG TABLET GT SCH (21:00)
[2018-05-22] MEDS: ACETAMINOPHEN 650 MG/20 ML UDC- SA PATIENTS-PAIN ONLY GT PRN (21:34)
[2018-05-22] MEDS: INSULIN DETEMIR 100 UNIT/ML CARTRIDGE SQ SCH (22:22)
[2018-05-23 00:10] VITALS: BP 121/64
[2018-05-23] MEDS: BLOOD SUGAR DIAGNOSTIC 1 EACH STRIP IN SCH ×4 (00:32→18:05)
[2018-05-23] MEDS: INSULIN REGULAR, HUMAN 100 UNIT/ML 3 ML VIAL SQ PRN ×4 (00:33→18:05)
[2018-05-23] MEDS: IPRATROPIUM NEB FS 0.5 MG/2.5 ML AMPUL.NEB NEB SCH ×4 (01:27→19:49)
[2018-05-23] MEDS: GLUCERNA 1.2 1,000 ML BOTTLE GT PRN (06:09)
[2018-05-23 06:10] VITALS: BP 140/75
[2018-05-23 07:48] VITALS: BP 127/63
--- NOTE | 2018-05-23 08:14 | NUR ---
PT REC'D TRACHED ON [facility] VENT ON AC MODE. NO RESP DISTRESS OR SOB NOTED. TRACH PATENT AND SECURED. SX'D FOR THICK MOD AMT OF PALE YELLOW SECRETIONS. ALARMS ARE SET AND AUDIBLE. VENT PLUGGED INTO RED OUTLET. AMBU BAG BEDSIDE. WILL CONTINUE TO MONITOR. Addendum: 05/23/18 at 1604 by TALA YAO RT Amended: Links added.
[2018-05-23] MEDS: PROSTAT (PYXIS) 30 ML UDC GT SCH ×2 (09:00→17:00)
[2018-05-23] MEDS: METOPROLOL TARTRATE 25 MG TABLET GT SCH ×2 (09:00→20:39)
[2018-05-23] MEDS: AMLODIPINE BESYLATE 5 MG TABLET GT SCH (09:00)
[2018-05-23] MEDS: SENNOSIDES 8.6 MG TABLET GT SCH ×2 (09:00→20:39)
[2018-05-23] MEDS: MULTIVIT W/MINERALS 1 TAB TABLET GT SCH (09:00)
[2018-05-23] MEDS: ASCORBIC ACID 500 MG TABLET GT SCH (09:00)
[2018-05-23] MEDS: ACIDOPHILUS/BULGARICUS 1 EACH TAB.CHEW GT SCH ×2 (09:00→20:38)
[2018-05-23] MEDS: ZINC SULFATE 220 MG CAPSULE GT SCH (09:00)
[2018-05-23] MEDS: DOCUSATE SODIUM LIQ 100 MG/10 ML UDC GT SCH (09:00)
[2018-05-23] MEDS: MAGNESIUM OXIDE 400 MG TABLET GT SCH (09:00)
[2018-05-23] MEDS ORDERED: TRAMADOL HCL 50 MG TABLET PO ONE (10:08)
[2018-05-23] MEDS: TRAMADOL HCL 50 MG TABLET GT SCH ×2 (11:00→20:39)
[2018-05-23] MEDS: HYDROGEL DRESSING 90 GM TUBE TP SCH (11:30)
[2018-05-23] MEDS: Z GUARD REMEDY 2 OZ OINT TP SCH ×2 (11:30→21:18)
[2018-05-23] MEDS: DAKINS HALF STRENGTH (0.25%) 480 ML BOTTLE TOP SCH (11:30)
[2018-05-23] MEDS: HYDROGEN PEROXIDE 480 ML BOTTLE TP SCH ×2 (11:30→21:17)
[2018-05-23] MEDS: VITS A AND D/WHITE PET/LANOLIN 5 GM PACKET TP SCH ×2 (11:30→21:18)
[2018-05-23] MEDS: Z GUARD REMEDY 4 OZ OINT TP SCH ×2 (11:30→21:18)
[2018-05-23 12:00] VITALS: BP 147/75
--- NOTE | 2018-05-23 14:06 | NUR ---
INTERDISCIPLINARY TEAM CONFERENCE (IDT) was held today. Resident's daughter Jennifer was unable to attend today's IDT meeting. Dr. Agarwal and the interdisciplinary team reviewed the current plan of care in detail. Orders as well as treatment and medications were reviewed. Resident is stable and no new orders were given during IDT meeting.
[2018-05-23 18:00] VITALS: BP 142/69
[2018-05-23 20:00] VITALS: BP 152/73
[2018-05-23] MEDS: INSULIN DETEMIR 100 UNIT/ML CARTRIDGE SQ SCH (22:02)
[2018-05-23] MEDS: ONDANSETRON HCL 4 MG/5 ML SOLUTION GT PRN (23:00)
--- NOTE | 2018-05-23 23:00 | NUR ---
Pt had emesis moderate amount milk formula.No residual,BM current.HOB elevated to prevent aspiration.Zofran 4mg given via GT for N/V will continue to monitor.
[2018-05-24 00:25] VITALS: BP 145/68
[2018-05-24] MEDS: BLOOD SUGAR DIAGNOSTIC 1 EACH STRIP IN SCH ×4 (00:59→17:57)
[2018-05-24] MEDS: INSULIN REGULAR, HUMAN 100 UNIT/ML 3 ML VIAL SQ PRN ×4 (01:00→17:58)
[2018-05-24] MEDS: IPRATROPIUM NEB FS 0.5 MG/2.5 ML AMPUL.NEB NEB SCH ×4 (01:48→19:43)
[2018-05-24] MEDS: GLUCERNA 1.2 1,000 ML BOTTLE GT PRN (05:56)
[2018-05-24 06:07] VITALS: BP 147/77
--- NOTE | 2018-05-24 06:49 | NUR ---
Pt had temp of 99.5,cooling measures provided.will continue to monitor.
[2018-05-24] MEDS: BISACODYL SUPP (10 MG) 10 MG/SUPP.RECT SUPP.RECT RC PRN (07:05)
[2018-05-24 08:27] VITALS: BP 129/73
--- NOTE | 2018-05-24 09:35 | NUR ---
Left a message to Dr. Hunt that patient has low grade temperature 99.5 and vomited twice last night. Awaiting for orders.
[2018-05-24] MEDS: ACIDOPHILUS/BULGARICUS 1 EACH TAB.CHEW GT SCH ×2 (09:36→21:22)
[2018-05-24] MEDS: AMLODIPINE BESYLATE 5 MG TABLET GT SCH (09:36)
[2018-05-24] MEDS: DOCUSATE SODIUM LIQ 100 MG/10 ML UDC GT SCH (09:36)
[2018-05-24] MEDS: MULTIVIT W/MINERALS 1 TAB TABLET GT SCH (09:36)
[2018-05-24] MEDS: SENNOSIDES 8.6 MG TABLET GT SCH ×2 (09:36→21:25)
[2018-05-24] MEDS: MAGNESIUM OXIDE 400 MG TABLET GT SCH (09:36)
[2018-05-24] MEDS: METOPROLOL TARTRATE 25 MG TABLET GT SCH ×2 (09:36→21:25)
[2018-05-24] MEDS: PROSTAT (PYXIS) 30 ML UDC GT SCH ×2 (09:36→17:57)
[2018-05-24] MEDS: TRAMADOL HCL 50 MG TABLET GT SCH ×2 (09:37→21:25)
[2018-05-24] MEDS: ASCORBIC ACID 500 MG TABLET GT SCH (09:37)
[2018-05-24] MEDS: ZINC SULFATE 220 MG CAPSULE GT SCH (09:37)
[2018-05-24] MEDS: DAKINS HALF STRENGTH (0.25%) 480 ML BOTTLE TOP SCH (10:10)
[2018-05-24] MEDS: VITS A AND D/WHITE PET/LANOLIN 5 GM PACKET TP SCH ×2 (10:10→22:00)
[2018-05-24] MEDS: Z GUARD REMEDY 4 OZ OINT TP SCH ×2 (10:10→22:00)
[2018-05-24] MEDS: HYDROGEN PEROXIDE 480 ML BOTTLE TP SCH ×2 (10:10→22:00)
[2018-05-24] MEDS: HYDROGEL DRESSING 90 GM TUBE TP SCH (10:10)
[2018-05-24] MEDS: Z GUARD REMEDY 2 OZ OINT TP SCH ×2 (10:10→22:00)
[2018-05-24] MEDS: CLOTRIMAZOLE 1% 15 GM TUBE TP SCH ×2 (10:10→22:00)
--- NOTE | 2018-05-24 10:40 | NUR ---
GEORGE ordered by Dr. Hunt. Result pending
--- NOTE | 2018-05-24 11:20 | NUR ---
Ruby Krishnamurthy, UNLOADER made rounds and notified of patient's low grade temp of 99.5 last night, with x2 episode of vomiting last night. Current T 98.4. NNO given at this time. Continue to monitor.
[2018-05-24 12:00] VITALS: BP 143/77
[2018-05-24] MEDS: ONDANSETRON HCL 4 MG/5 ML SOLUTION GT PRN (13:02)
--- NOTE | 2018-05-24 18:00 | NUR ---
Result of KUB reported to Dr Strong and Dr. Agarwal, NNO given at this time. Patient with two episode of vomiting this shift with undigested formula, oral and tracheal suction done, no s/s of aspiration. Endorsed to monitor patient. Jennifer, daughter updated of patient's condition. Endorsed to follow-up with GI regarding GT replacement as GT is very short.
[2018-05-24 18:01] VITALS: BP 147/76
[2018-05-24 20:21] VITALS: BP 137/74
--- NOTE | 2018-05-24 21:55 | NUR ---
RT NOTE PATIENT WAS RECEIVED ON CONTINUOUS VENT SUPPORT ON NOTED VENT SETTINGS. INFORMATION STRATEGIST DONE. AMBU BAG @ BEDSIDE. Q6 BREATHING TX GIVEN WITH NO ADVERSE REACTION NOTED. SUCTION DONE PRN.TRACH TUBE PATENT AND SECURED. ALARMS ON AND AUDIBLE. NO RESPIRATORY DISTRESS NOTED AT THIS TIME. WILL CONTINUE TO MONITOR PATIENT. Addendum: 05/24/18 at 2155 by NYA RICHARDS RT Amended: Links added.
[2018-05-24] MEDS: INSULIN DETEMIR 100 UNIT/ML CARTRIDGE SQ SCH (22:03)
[2018-05-25 00:20] VITALS: BP 144/80
[2018-05-25] MEDS: BLOOD SUGAR DIAGNOSTIC 1 EACH STRIP IN SCH ×5 (00:31→23:58)
[2018-05-25] MEDS: INSULIN REGULAR, HUMAN 100 UNIT/ML 3 ML VIAL SQ PRN ×5 (00:34→23:58)
[2018-05-25] MEDS: IPRATROPIUM NEB FS 0.5 MG/2.5 ML AMPUL.NEB NEB SCH ×4 (01:46→19:43)
[2018-05-25 06:09] VITALS: BP 144/79
[2018-05-25 07:26] VITALS: BP 135/77
[2018-05-25] MEDS: VITS A AND D/WHITE PET/LANOLIN 5 GM PACKET TP SCH ×2 (09:00→21:00)
[2018-05-25] MEDS: ASCORBIC ACID 500 MG TABLET GT SCH (09:00)
[2018-05-25] MEDS: Z GUARD REMEDY 4 OZ OINT TP SCH ×2 (09:00→21:00)
[2018-05-25] MEDS: HYDROGEL DRESSING 90 GM TUBE TP SCH (09:00)
[2018-05-25] MEDS: Z GUARD REMEDY 2 OZ OINT TP SCH ×2 (09:00→21:00)
[2018-05-25] MEDS: ACIDOPHILUS/BULGARICUS 1 EACH TAB.CHEW GT SCH ×2 (09:00→21:00)
[2018-05-25] MEDS: PROSTAT (PYXIS) 30 ML UDC GT SCH ×2 (09:00→16:13)
[2018-05-25] MEDS: ZINC SULFATE 220 MG CAPSULE GT SCH (09:00)
[2018-05-25] MEDS: DOCUSATE SODIUM LIQ 100 MG/10 ML UDC GT SCH (09:00)
[2018-05-25] MEDS: SENNOSIDES 8.6 MG TABLET GT SCH ×2 (09:00→21:00)
[2018-05-25] MEDS: AMLODIPINE BESYLATE 5 MG TABLET GT SCH (09:00)
[2018-05-25] MEDS: DAKINS HALF STRENGTH (0.25%) 480 ML BOTTLE TOP SCH (09:00)
[2018-05-25] MEDS: HYDROGEN PEROXIDE 480 ML BOTTLE TP SCH ×2 (09:00→21:00)
[2018-05-25] MEDS: MAGNESIUM OXIDE 400 MG TABLET GT SCH (09:00)
[2018-05-25] MEDS: CLOTRIMAZOLE 1% 15 GM TUBE TP SCH ×2 (09:00→21:00)
[2018-05-25] MEDS: METOPROLOL TARTRATE 25 MG TABLET GT SCH ×2 (09:00→21:00)
[2018-05-25] MEDS: MULTIVIT W/MINERALS 1 TAB TABLET GT SCH (09:00)
[2018-05-25] MEDS: TRAMADOL HCL 50 MG TABLET GT SCH ×2 (09:00→21:00)
[2018-05-25] MEDS: GLUCERNA 1.2 1,000 ML BOTTLE GT PRN (10:42)
[2018-05-25 16:13] VITALS: BP 130/75
[2018-05-25 18:13] VITALS: BP 106/64
[2018-05-25 20:03] VITALS: BP 144/77
[2018-05-25] MEDS: INSULIN DETEMIR 100 UNIT/ML CARTRIDGE SQ SCH (22:03)
[2018-05-26] MEDS: IPRATROPIUM NEB FS 0.5 MG/2.5 ML AMPUL.NEB NEB SCH ×4 (01:03→20:03)
[2018-05-26 03:16] VITALS: BP 124/68
[2018-05-26] MEDS: BLOOD SUGAR DIAGNOSTIC 1 EACH STRIP IN SCH ×4 (06:01→23:47)
[2018-05-26] MEDS: INSULIN REGULAR, HUMAN 100 UNIT/ML 3 ML VIAL SQ PRN ×4 (06:02→23:48)
[2018-05-26 06:10] VITALS: BP 140/69
[2018-05-26 07:54] VITALS: BP 128/69
[2018-05-26] MEDS: DAKINS HALF STRENGTH (0.25%) 480 ML BOTTLE TOP SCH (09:00)
[2018-05-26] MEDS: ASCORBIC ACID 500 MG TABLET GT SCH (09:00)
[2018-05-26] MEDS: METOPROLOL TARTRATE 25 MG TABLET GT SCH ×2 (09:00→21:26)
[2018-05-26] MEDS: HYDROGEL DRESSING 90 GM TUBE TP SCH (09:00)
[2018-05-26] MEDS: DOCUSATE SODIUM LIQ 100 MG/10 ML UDC GT SCH (09:00)
[2018-05-26] MEDS: MULTIVIT W/MINERALS 1 TAB TABLET GT SCH (09:00)
[2018-05-26] MEDS: SENNOSIDES 8.6 MG TABLET GT SCH ×2 (09:00→21:26)
[2018-05-26] MEDS: Z GUARD REMEDY 2 OZ OINT TP SCH ×2 (09:00→21:26)
[2018-05-26] MEDS: Z GUARD REMEDY 4 OZ OINT TP SCH ×2 (09:00→21:26)
[2018-05-26] MEDS: ACIDOPHILUS/BULGARICUS 1 EACH TAB.CHEW GT SCH ×2 (09:00→21:26)
[2018-05-26] MEDS: MAGNESIUM OXIDE 400 MG TABLET GT SCH (09:00)
[2018-05-26] MEDS: ZINC SULFATE 220 MG CAPSULE GT SCH (09:00)
[2018-05-26] MEDS: CLOTRIMAZOLE 1% 15 GM TUBE TP SCH ×2 (09:00→21:26)
[2018-05-26] MEDS: TRAMADOL HCL 50 MG TABLET GT SCH ×2 (09:00→21:26)
[2018-05-26] MEDS: HYDROGEN PEROXIDE 480 ML BOTTLE TP SCH ×2 (09:00→21:26)
[2018-05-26] MEDS: VITS A AND D/WHITE PET/LANOLIN 5 GM PACKET TP SCH ×2 (09:00→21:26)
[2018-05-26] MEDS: PROSTAT (PYXIS) 30 ML UDC GT SCH ×2 (09:00→17:00)
[2018-05-26] MEDS: AMLODIPINE BESYLATE 5 MG TABLET GT SCH (09:00)
[2018-05-26 15:31] VITALS: BP 131/70
[2018-05-26 18:34] VITALS: BP 121/71
[2018-05-26 20:17] VITALS: BP 139/40
--- NOTE | 2018-05-26 20:53 | NUR ---
PT RCVD TRACH'D ON MECHANICAL VENT WITH CHARTED SETTINGS. HHN TX GIVEN AND NO ADVERSE REACTION NOTED. SX DONE. PT TRACH PATENT AND SECURE. CUFF CHECKED VIA LEATHER PRODUCTS SUPERVISOR. ALARMS ARE ON AND AUDIBLE. VENT PLUGGED INTO RED OUTLET. AMBU BAG AT BEDSIDE. WILL CONTINUE TO MONITOR. Addendum: 05/26/18 at 2052 by FELICITAS CHRISTIE RT Amended: Links added.
[2018-05-26] MEDS: INSULIN DETEMIR 100 UNIT/ML CARTRIDGE SQ SCH (21:27)
[2018-05-27 00:19] VITALS: BP 128/64
[2018-05-27] MEDS: IPRATROPIUM NEB FS 0.5 MG/2.5 ML AMPUL.NEB NEB SCH ×4 (01:07→19:17)
[2018-05-27] MEDS: BLOOD SUGAR DIAGNOSTIC 1 EACH STRIP IN SCH ×3 (06:12→18:46)
[2018-05-27] MEDS: INSULIN REGULAR, HUMAN 100 UNIT/ML 3 ML VIAL SQ PRN ×3 (06:13→18:49)
[2018-05-27 06:25] VITALS: BP 133/69
[2018-05-27] MEDS: HYDROGEL DRESSING 90 GM TUBE TP SCH (09:00)
[2018-05-27] MEDS: VITS A AND D/WHITE PET/LANOLIN 5 GM PACKET TP SCH ×2 (09:00→21:00)
[2018-05-27] MEDS: HYDROGEN PEROXIDE 480 ML BOTTLE TP SCH ×2 (09:00→21:00)
[2018-05-27] MEDS: Z GUARD REMEDY 4 OZ OINT TP SCH ×2 (09:00→21:00)
[2018-05-27] MEDS: CLOTRIMAZOLE 1% 15 GM TUBE TP SCH ×2 (09:00→21:00)
[2018-05-27] MEDS: Z GUARD REMEDY 2 OZ OINT TP SCH ×2 (09:00→21:00)
[2018-05-27] MEDS: DAKINS HALF STRENGTH (0.25%) 480 ML BOTTLE TOP SCH (09:00)
[2018-05-27] MEDS: METOPROLOL TARTRATE 25 MG TABLET GT SCH ×2 (09:57→21:00)
[2018-05-27] MEDS: MAGNESIUM OXIDE 400 MG TABLET GT SCH (09:57)
[2018-05-27] MEDS: DOCUSATE SODIUM LIQ 100 MG/10 ML UDC GT SCH (09:57)
[2018-05-27] MEDS: MULTIVIT W/MINERALS 1 TAB TABLET GT SCH (09:57)
[2018-05-27] MEDS: ACIDOPHILUS/BULGARICUS 1 EACH TAB.CHEW GT SCH ×2 (09:57→21:00)
[2018-05-27] MEDS: SENNOSIDES 8.6 MG TABLET GT SCH ×2 (09:57→21:00)
[2018-05-27] MEDS: PROSTAT (PYXIS) 30 ML UDC GT SCH ×2 (09:57→17:00)
[2018-05-27] MEDS: AMLODIPINE BESYLATE 5 MG TABLET GT SCH (09:57)
[2018-05-27] MEDS: ASCORBIC ACID 500 MG TABLET GT SCH (09:58)
[2018-05-27] MEDS: ZINC SULFATE 220 MG CAPSULE GT SCH (09:58)
[2018-05-27] MEDS: TRAMADOL HCL 50 MG TABLET GT SCH ×2 (09:58→21:00)
[2018-05-27 13:47] VITALS: BP 123/68
[2018-05-27 18:49] VITALS: BP 121/71
--- NOTE | 2018-05-27 19:21 | NUR ---
PATIENT RECEIVED TRACHED ON MECHANICAL VENTILATION. VENT PLUGGED INTO RED OUTLET. ALARMS ON AND AUDIBLE. CUFF CHECKED VIA SWAMPER. TX GIVEN, NO ADVERSE REACTIONS NOTED. SX DONE, SMALL THICK WHITE SECRETIONS NOTED. PATIENT STABLE. Addendum: 05/27/18 at 1922 by CHAZ ESTRELLA RT Amended: Links added.
[2018-05-27 19:46] VITALS: BP 125/70
[2018-05-27] MEDS: INSULIN DETEMIR 100 UNIT/ML CARTRIDGE SQ SCH (22:11)
[2018-05-28] VITALS: BP 123/60
[2018-05-28] MEDS: INSULIN REGULAR, HUMAN 100 UNIT/ML 3 ML VIAL SQ PRN ×4 (01:16→17:30)
[2018-05-28] MEDS: IPRATROPIUM NEB FS 0.5 MG/2.5 ML AMPUL.NEB NEB SCH ×4 (02:11→19:44)
[2018-05-28] MEDS: BLOOD SUGAR DIAGNOSTIC 1 EACH STRIP IN SCH ×4 (05:58→17:25)
[2018-05-28 06:00] VITALS: BP 125/63
[2018-05-28 07:36] VITALS: BP 110/67
[2018-05-28] MEDS: METOPROLOL TARTRATE 25 MG TABLET GT SCH ×2 (09:26→21:32)
[2018-05-28] MEDS: DOCUSATE SODIUM LIQ 100 MG/10 ML UDC GT SCH (09:26)
[2018-05-28] MEDS: ACIDOPHILUS/BULGARICUS 1 EACH TAB.CHEW GT SCH ×2 (09:26→21:31)
[2018-05-28] MEDS: ASCORBIC ACID 500 MG TABLET GT SCH (09:27)
[2018-05-28] MEDS: ZINC SULFATE 220 MG CAPSULE GT SCH (09:27)
[2018-05-28] MEDS: TRAMADOL HCL 50 MG TABLET GT SCH ×2 (09:27→21:32)
[2018-05-28] MEDS: AMLODIPINE BESYLATE 5 MG TABLET GT SCH (09:27)
[2018-05-28] MEDS: MAGNESIUM OXIDE 400 MG TABLET GT SCH (09:27)
[2018-05-28] MEDS: MULTIVIT W/MINERALS 1 TAB TABLET GT SCH (09:27)
[2018-05-28] MEDS: SENNOSIDES 8.6 MG TABLET GT SCH ×2 (09:27→21:32)
[2018-05-28] MEDS: PROSTAT (PYXIS) 30 ML UDC GT SCH ×2 (09:27→17:25)
--- NOTE | 2018-05-28 09:31 | NUR ---
RT PT REC'D TRACH'D ON MECHANICAL VENT WITH CHARTED SETTINGS. NO SOB, NO RESPIRATORY DISTRESS NOTED AT THIS TIME. HHN TX GIVEN AND NO ADVERSE REACTION NOTED. SX DONE. PT TRACH PATENT AND SECURE. CUFF CHECKED VIA SOFTWARE SALES REPRESENTATIVE. ALARMS ARE ON AND AUDIBLE. VENT PLUGGED INTO RED OUTLET. AMBU BAG AT BEDSIDE. WILL CONTINUE TO MONITOR. Addendum: 05/28/18 at 0933 by FLORINDA TSE RT Amended: Links added.
[2018-05-28] MEDS: Z GUARD REMEDY 2 OZ OINT TP SCH ×2 (10:27→21:59)
[2018-05-28] MEDS: HYDROGEN PEROXIDE 480 ML BOTTLE TP SCH ×2 (10:27→21:32)
[2018-05-28] MEDS: DAKINS HALF STRENGTH (0.25%) 480 ML BOTTLE TOP SCH (10:27)
[2018-05-28] MEDS: VITS A AND D/WHITE PET/LANOLIN 5 GM PACKET TP SCH ×2 (10:27→22:00)
[2018-05-28] MEDS: CLOTRIMAZOLE 1% 15 GM TUBE TP SCH ×2 (10:27→21:59)
[2018-05-28] MEDS: Z GUARD REMEDY 4 OZ OINT TP SCH ×2 (10:27→21:59)
[2018-05-28] MEDS: HYDROGEL DRESSING 90 GM TUBE TP SCH (10:27)
[2018-05-28 12:00] VITALS: BP 132/70
[2018-05-28] MEDS: ONDANSETRON HCL 4 MG/5 ML SOLUTION GT PRN (12:27)
[2018-05-28] MEDS: GLUCERNA 1.2 1,000 ML BOTTLE GT PRN (17:29)
--- NOTE | 2018-05-28 18:30 | NUR ---
Seen and examined by Stephanie Miller, assessed GT, she said that she may replace it on Saturday or next week. But if patient needs EGD, she will consult with Dr. Carmona. Stephanie also made aware that patient has increased episode of vomiting lately.
[2018-05-28 19:00] VITALS: BP 132/71
--- NOTE | 2018-05-28 19:45 | NUR ---
RT NOTE: RECEIVED TRACH PT ON [facility] VENT ON NOTED SETTINGS PER MD ORDERS. TRACH IS PATENT AND SECURED. MARBLE CLEANER DONE. Q6 BREATHING TX GIVEN WITH NO ADVERSE REACTION NOTED. SX DONE PRN. VENT PLUGGED INTO RED OUTLET. ALARMS ON AND AUDIBLE. FROY BAG @ BEDSIDE. NO RESP DISTRESS AT THIS TIME. WILL CONT TO MONITOR PT. Addendum: 05/29/18 at 0026 by PREMA SOTO RT Amended: Links added.
[2018-05-28 20:36] VITALS: BP 141/65
[2018-05-28] MEDS: INSULIN DETEMIR 100 UNIT/ML CARTRIDGE SQ SCH (22:00)
[2018-05-29 00:10] VITALS: BP 146/82
[2018-05-29] MEDS: BLOOD SUGAR DIAGNOSTIC 1 EACH STRIP IN SCH ×4 (00:29→18:24)
[2018-05-29] MEDS: INSULIN REGULAR, HUMAN 100 UNIT/ML 3 ML VIAL SQ PRN ×4 (00:31→18:23)
[2018-05-29] MEDS: IPRATROPIUM NEB FS 0.5 MG/2.5 ML AMPUL.NEB NEB SCH ×4 (00:36→20:12)
[2018-05-29 07:05] VITALS: BP 134/62
[2018-05-29 07:35] VITALS: BP 126/69
[2018-05-29] MEDS: MULTIVIT W/MINERALS 1 TAB TABLET GT SCH (09:30)
[2018-05-29] MEDS: MAGNESIUM OXIDE 400 MG TABLET GT SCH (09:30)
[2018-05-29] MEDS: AMLODIPINE BESYLATE 5 MG TABLET GT SCH (09:30)
[2018-05-29] MEDS: ACIDOPHILUS/BULGARICUS 1 EACH TAB.CHEW GT SCH ×2 (09:30→21:15)
[2018-05-29] MEDS: PROSTAT (PYXIS) 30 ML UDC GT SCH ×2 (09:30→17:00)
[2018-05-29] MEDS: METOPROLOL TARTRATE 25 MG TABLET GT SCH ×2 (09:30→21:15)
[2018-05-29] MEDS: SENNOSIDES 8.6 MG TABLET GT SCH ×2 (09:30→21:15)
[2018-05-29] MEDS: DOCUSATE SODIUM LIQ 100 MG/10 ML UDC GT SCH (09:30)
[2018-05-29] MEDS: ZINC SULFATE 220 MG CAPSULE GT SCH (09:31)
[2018-05-29] MEDS: TRAMADOL HCL 50 MG TABLET GT SCH ×2 (09:31→21:16)
[2018-05-29] MEDS: ASCORBIC ACID 500 MG TABLET GT SCH (09:31)
[2018-05-29] MEDS: Z GUARD REMEDY 2 OZ OINT TP SCH ×2 (10:00→21:17)
[2018-05-29] MEDS: DAKINS HALF STRENGTH (0.25%) 480 ML BOTTLE TOP SCH (10:00)
[2018-05-29] MEDS: HYDROGEN PEROXIDE 480 ML BOTTLE TP SCH ×2 (10:00→21:16)
[2018-05-29] MEDS: VITS A AND D/WHITE PET/LANOLIN 5 GM PACKET TP SCH ×2 (10:00→21:17)
[2018-05-29] MEDS: CLOTRIMAZOLE 1% 15 GM TUBE TP SCH ×2 (10:00→21:17)
[2018-05-29] MEDS: Z GUARD REMEDY 4 OZ OINT TP SCH ×2 (10:00→21:17)
[2018-05-29] MEDS: HYDROGEL DRESSING 90 GM TUBE TP SCH (10:00)
[2018-05-29 12:00] VITALS: BP 117/64
--- NOTE | 2018-05-29 15:00 | NUR ---
Seen and examined by Maria Fernanda Mata NP NNO given at this time.
--- NOTE | 2018-05-29 16:30 | NUR ---
Stephanie Miller NP informed this nurse that they will do EGD for this patient on Saturday. Endorsed.
--- NOTE | 2018-05-29 18:11 | NUR ---
Resident's daughter at bedside and notified that GI will most likely do and EGD on Saturday and replace current GT. She was also updated of the patient's condition especially the wound progress and size. She is very pleased with the improvement as wound is responding to current treatment, however she recognized that because L foot wound has undermining and pocketing pus, she said it is OK for the doctor to open it if necessary to drain the pus, the only thing she is not in agreement is to do an amputation. Informed daughter that Dr. Dudley will be made aware in AM of this conversation. Daughter notified of increased episode of vomiting. She shared that even before her mother has vomiting episode because of vertigo, she tends to vomit when she gets turn. Informed daughter that nurses are coordinating turning and repositioning schedule and medication administration. No episode of vomiting this shift.
[2018-05-29 19:01] VITALS: BP 135/76
[2018-05-29 19:29] VITALS: BP 142/64
[2018-05-29] MEDS: GLUCERNA 1.2 1,000 ML BOTTLE GT PRN (19:30)
[2018-05-29] MEDS: INSULIN DETEMIR 100 UNIT/ML CARTRIDGE SQ SCH (21:40)
[2018-05-30] MEDS: BLOOD SUGAR DIAGNOSTIC 1 EACH STRIP IN SCH ×5 (00:19→23:49)
[2018-05-30 00:20] VITALS: BP 132/67
[2018-05-30] MEDS: INSULIN REGULAR, HUMAN 100 UNIT/ML 3 ML VIAL SQ PRN ×5 (00:21→23:50)
[2018-05-30] MEDS: IPRATROPIUM NEB FS 0.5 MG/2.5 ML AMPUL.NEB NEB SCH ×4 (01:51→19:45)
[2018-05-30] MEDS: BISACODYL SUPP (10 MG) 10 MG/SUPP.RECT SUPP.RECT RC PRN (05:42)
[2018-05-30 06:09] VITALS: BP 133/72
[2018-05-30 07:44] VITALS: BP 121/65
[2018-05-30] MEDS: ACIDOPHILUS/BULGARICUS 1 EACH TAB.CHEW GT SCH ×2 (09:34→21:22)
[2018-05-30] MEDS: MAGNESIUM OXIDE 400 MG TABLET GT SCH (09:34)
[2018-05-30] MEDS: SENNOSIDES 8.6 MG TABLET GT SCH ×2 (09:34→21:22)
[2018-05-30] MEDS: MULTIVIT W/MINERALS 1 TAB TABLET GT SCH (09:34)
[2018-05-30] MEDS: METOPROLOL TARTRATE 25 MG TABLET GT SCH ×2 (09:34→21:22)
[2018-05-30] MEDS: DOCUSATE SODIUM LIQ 100 MG/10 ML UDC GT SCH (09:34)
[2018-05-30] MEDS: AMLODIPINE BESYLATE 5 MG TABLET GT SCH (09:34)
[2018-05-30] MEDS: PROSTAT (PYXIS) 30 ML UDC GT SCH ×2 (09:34→17:00)
[2018-05-30] MEDS: TRAMADOL HCL 50 MG TABLET GT SCH ×2 (09:35→21:23)
[2018-05-30] MEDS: ZINC SULFATE 220 MG CAPSULE GT SCH (09:35)
[2018-05-30] MEDS: ASCORBIC ACID 500 MG TABLET GT SCH (09:35)
[2018-05-30] MEDS: DAKINS HALF STRENGTH (0.25%) 480 ML BOTTLE TOP SCH (10:10)
[2018-05-30] MEDS: HYDROGEN PEROXIDE 480 ML BOTTLE TP SCH ×2 (10:10→21:50)
[2018-05-30] MEDS: VITS A AND D/WHITE PET/LANOLIN 5 GM PACKET TP SCH ×2 (10:10→21:50)
[2018-05-30] MEDS: Z GUARD REMEDY 2 OZ OINT TP SCH ×2 (10:10→21:50)
[2018-05-30] MEDS: HYDROGEL DRESSING 90 GM TUBE TP SCH (10:10)
[2018-05-30] MEDS: CLOTRIMAZOLE 1% 15 GM TUBE TP SCH ×2 (10:10→21:50)
[2018-05-30] MEDS: Z GUARD REMEDY 4 OZ OINT TP SCH ×2 (10:10→21:50)
[2018-05-30 12:00] VITALS: BP 134/69
--- NOTE | 2018-05-30 16:37 | NUR ---
RT RECD PT TRACHED INTACT AND SECURED ON MECH VENT BIRDIE ALARMS ON AND AUDIBLE BAG AND MASK AT HOB, VENT PLUGGED IN RED OUTLET TX GIVEN BIRDIE WELL NO ADVERSE REACTION NOTED ATT. SX THICK YELLOW SMALL SECRETIONS. NO RESP DISTRESS THROUGHOUT SHIFT WILL CONT TO MONITOR
--- NOTE | 2018-05-30 17:39 | NUR ---
Seen and examined by Dr. Hunt, NNO given. Informed him that daughter verbalized that she in agreement with what the doctor wants to do with the patient's L foot wound except amputation. Wound with [address] Dudley, industrial rehabilitation consultant seen and assessed patient's L foot wound. According to Dr. Dudley if he has to intervene, it has to be all the way; because infection is in her bones, he has to do amputation which the daughter is not in agreement, a partial incision or opening to drain the pus/blood accumulating the the sac will be partial treatment. Dr. Aguirre came to see patient and seen L foot photo with protruding sac filled with blood and at times pus ordered to send for culture. Resident's daughter informed.
[2018-05-30 18:00] VITALS: BP 130/73
[2018-05-30] MEDS: GLUCERNA 1.2 1,000 ML BOTTLE GT PRN (18:37)
[2018-05-30 19:36] VITALS: BP 123/63
[2018-05-30] MEDS: POVIDONE-IODINE OINT 28.4 GM TUBE TP SCH (21:23)
[2018-05-30] MEDS: INSULIN DETEMIR 100 UNIT/ML CARTRIDGE SQ SCH (21:24)
--- NOTE | 2018-05-30 21:49 | NUR ---
RT NOTE PATIENT WAS RECEIVED ON CONTINUOUS VENT SUPPORT ON NOTED VENT SETTINGS. BACKUP ADMINISTRATIVE COORDINATOR DONE. AMBU BAG @ BEDSIDE. Q6 BREATHING TX GIVEN WITH NO ADVERSE REACTION NOTED. SUCTION DONE PRN.TRACH TUBE PATENT AND SECURED. ALARMS ON AND AUDIBLE. NO RESPIRATORY DISTRESS NOTED AT THIS TIME. WILL CONTINUE TO MONITOR PATIENT. Addendum: 05/30/18 at 2150 by NYA RICHARDS RT Amended: Links added.
[2018-05-31] VITALS (7 sets, daily range): BP systolic 116–147; BP diastolic 59–76
[2018-05-31] MEDS: IPRATROPIUM NEB FS 0.5 MG/2.5 ML AMPUL.NEB NEB SCH ×4 (01:32→19:36)
[2018-05-31] MEDS: BLOOD SUGAR DIAGNOSTIC 1 EACH STRIP IN SCH ×3 (05:33→18:24)
[2018-05-31] MEDS: INSULIN REGULAR, HUMAN 100 UNIT/ML 3 ML VIAL SQ PRN ×3 (05:34→18:27)
[2018-05-31] MEDS: DOCUSATE SODIUM LIQ 100 MG/10 ML UDC GT SCH (09:56)
[2018-05-31] MEDS: MULTIVIT W/MINERALS 1 TAB TABLET GT SCH (09:56)
[2018-05-31] MEDS: MAGNESIUM OXIDE 400 MG TABLET GT SCH (09:56)
[2018-05-31] MEDS: SENNOSIDES 8.6 MG TABLET GT SCH ×2 (09:56→21:51)
[2018-05-31] MEDS: METOPROLOL TARTRATE 25 MG TABLET GT SCH ×2 (09:56→21:51)
[2018-05-31] MEDS: ACIDOPHILUS/BULGARICUS 1 EACH TAB.CHEW GT SCH ×2 (09:56→21:50)
[2018-05-31] MEDS: PROSTAT (PYXIS) 30 ML UDC GT SCH ×2 (09:56→17:56)
[2018-05-31] MEDS: AMLODIPINE BESYLATE 5 MG TABLET GT SCH (09:56)
[2018-05-31] MEDS: TRAMADOL HCL 50 MG TABLET GT SCH ×2 (09:57→21:51)
[2018-05-31] MEDS: ZINC SULFATE 220 MG CAPSULE GT SCH (09:57)
[2018-05-31] MEDS: ASCORBIC ACID 500 MG TABLET GT SCH (09:57)
[2018-05-31] MEDS: Z GUARD REMEDY 2 OZ OINT TP SCH ×3 (10:30→21:51)
[2018-05-31] MEDS: POVIDONE-IODINE OINT 28.4 GM TUBE TP SCH ×2 (10:30→21:51)
[2018-05-31] MEDS: VITS A AND D/WHITE PET/LANOLIN 5 GM PACKET TP SCH ×2 (10:30→21:51)
[2018-05-31] MEDS: CLOTRIMAZOLE 1% 15 GM TUBE TP SCH ×2 (10:30→21:51)
[2018-05-31] MEDS: HYDROGEN PEROXIDE 480 ML BOTTLE TP SCH ×2 (10:30→21:51)
[2018-05-31] MEDS: HYDROGEL DRESSING 90 GM TUBE TP SCH (10:30)
[2018-05-31] MEDS: Z GUARD REMEDY 4 OZ OINT TP SCH ×2 (10:30→21:51)
[2018-05-31] MEDS: DAKINS HALF STRENGTH (0.25%) 480 ML BOTTLE TOP SCH (10:30)
[2018-05-31] MEDS: GLUCERNA 1.2 1,000 ML BOTTLE GT PRN ×2 (15:17→23:00)
--- NOTE | 2018-05-31 20:03 | NUR ---
RT NOTE PT RECEIVED ON [facility] VENT ON THE FOLLOWING NOTED SETTINGS. PT HAS MOD THIN YELLOW/WHITE SECRETIONS WHEN SUCTIONED. BREATHING TX GIVEN, NO ADVERSE REACTIONS NOTED AT THIS TIME. VENT IS PLUGGED INTO RED OUTLET. ALARMS ARE ON AND AUDIBLE. SPARE TRACH AND AMBU BAG ARE AT BEDSIDE. WILL CONT TO MONITOR PT. Addendum: 05/31/18 at 2003 by MEI SANTANA RT Amended: Links added.
[2018-05-31] MEDS: INSULIN DETEMIR 100 UNIT/ML CARTRIDGE SQ SCH (21:52)
[2018-05-31] MEDS: MAGNESIUM HYDROXIDE 30 ML UDC GT PRN (22:00)
[2018-06-01] VITALS: BP 116/70
[2018-06-01] MEDS: BLOOD SUGAR DIAGNOSTIC 1 EACH STRIP IN SCH ×4 (00:30→18:20)
[2018-06-01] MEDS: INSULIN REGULAR, HUMAN 100 UNIT/ML 3 ML VIAL SQ PRN ×4 (00:34→18:24)
[2018-06-01] MEDS: CLONIDINE HCL 0.1 MG TABLET GT PRN ×2 (00:44→05:13)
[2018-06-01] MEDS: IPRATROPIUM NEB FS 0.5 MG/2.5 ML AMPUL.NEB NEB SCH ×4 (01:15→19:58)
[2018-06-01 06:00] VITALS: BP 136/69
[2018-06-01] MEDS: MAGNESIUM HYDROXIDE 30 ML UDC GT PRN (06:45)
[2018-06-01 07:55] VITALS: BP 117/67
[2018-06-01] MEDS: HYDROGEN PEROXIDE 480 ML BOTTLE TP SCH ×2 (09:00→21:00)
[2018-06-01] MEDS: Z GUARD REMEDY 4 OZ OINT TP SCH ×2 (09:00→21:00)
[2018-06-01] MEDS: ACIDOPHILUS/BULGARICUS 1 EACH TAB.CHEW GT SCH ×2 (09:00→21:00)
[2018-06-01] MEDS: CLOTRIMAZOLE 1% 15 GM TUBE TP SCH ×2 (09:00→21:00)
[2018-06-01] MEDS: VITS A AND D/WHITE PET/LANOLIN 5 GM PACKET TP SCH ×2 (09:00→21:00)
[2018-06-01] MEDS: MAGNESIUM OXIDE 400 MG TABLET GT SCH (09:00)
[2018-06-01] MEDS: PROSTAT (PYXIS) 30 ML UDC GT SCH ×2 (09:00→17:00)
[2018-06-01] MEDS: SENNOSIDES 8.6 MG TABLET GT SCH ×2 (09:00→21:00)
[2018-06-01] MEDS: ZINC SULFATE 220 MG CAPSULE GT SCH (09:00)
[2018-06-01] MEDS: METOPROLOL TARTRATE 25 MG TABLET GT SCH ×2 (09:00→21:00)
[2018-06-01] MEDS: TRAMADOL HCL 50 MG TABLET GT SCH ×2 (09:00→21:00)
[2018-06-01] MEDS: HYDROGEL DRESSING 90 GM TUBE TP SCH (09:00)
[2018-06-01] MEDS: DOCUSATE SODIUM LIQ 100 MG/10 ML UDC GT SCH (09:00)
[2018-06-01] MEDS: MULTIVIT W/MINERALS 1 TAB TABLET GT SCH (09:00)
[2018-06-01] MEDS: POVIDONE-IODINE OINT 28.4 GM TUBE TP SCH ×2 (09:00→21:00)
[2018-06-01] MEDS: DAKINS HALF STRENGTH (0.25%) 480 ML BOTTLE TOP SCH (09:00)
[2018-06-01] MEDS: Z GUARD REMEDY 2 OZ OINT TP SCH (09:00)
[2018-06-01] MEDS: ASCORBIC ACID 500 MG TABLET GT SCH (09:00)
[2018-06-01] MEDS: AMLODIPINE BESYLATE 5 MG TABLET GT SCH (09:00)
--- NOTE | 2018-06-01 17:00 | NUR ---
AVERY Brown made rounds and said that her EGD procedure has no schedule yet. She will let us know once scheduled.
[2018-06-01] MEDS: ONDANSETRON HCL 4 MG/5 ML SOLUTION GT PRN (17:30)
--- NOTE | 2018-06-01 17:58 | NUR ---
RT MONTHLY TRACH CHANGE DONE. MINIMAL BLEEDING. FLATWORK WASHER DONE. B/S BILATERAL RHONCHI. SX W/ MOD THK YELLOW/SHIPMAN SECRETIONS. NO SOB OR RESP DISTRESS NOTED. VENT ALARMS CHECKED AND AUDIBLE. VENT PLUGGED IN RED OUTLET. AMBU BAG AND SPARE TRACH NOTED HOB. BREATHING TX GIVEN AND NO ADV REACTION.
[2018-06-01 19:34] VITALS: BP 127/70
[2018-06-01 19:49] VITALS: BP 130/81
[2018-06-01] MEDS: INSULIN DETEMIR 100 UNIT/ML CARTRIDGE SQ SCH (22:22)
[2018-06-02] VITALS: BP 130/81
[2018-06-02] MEDS: BLOOD SUGAR DIAGNOSTIC 1 EACH STRIP IN SCH ×5 (00:31→23:22)
[2018-06-02] MEDS: INSULIN REGULAR, HUMAN 100 UNIT/ML 3 ML VIAL SQ PRN ×5 (00:36→23:29)
[2018-06-02] MEDS: IPRATROPIUM NEB FS 0.5 MG/2.5 ML AMPUL.NEB NEB SCH ×4 (00:47→19:20)
[2018-06-02] MEDS: GLUCERNA 1.2 1,000 ML BOTTLE GT PRN (06:24)
[2018-06-02] MEDS: Z GUARD REMEDY 2 OZ OINT TP SCH ×2 (09:00→20:34)
[2018-06-02] MEDS: HYDROGEN PEROXIDE 480 ML BOTTLE TP SCH ×2 (09:00→20:34)
[2018-06-02] MEDS: DAKINS HALF STRENGTH (0.25%) 480 ML BOTTLE TOP SCH (09:00)
[2018-06-02] MEDS: VITS A AND D/WHITE PET/LANOLIN 5 GM PACKET TP SCH ×2 (09:00→20:34)
[2018-06-02] MEDS: BISACODYL SUPP (10 MG) 10 MG/SUPP.RECT SUPP.RECT RC PRN (09:00)
[2018-06-02] MEDS: Z GUARD REMEDY 4 OZ OINT TP SCH ×2 (09:00→20:34)
[2018-06-02] MEDS: CLOTRIMAZOLE 1% 15 GM TUBE TP SCH ×2 (09:00→20:34)
[2018-06-02] MEDS: HYDROGEL DRESSING 90 GM TUBE TP SCH (09:00)
[2018-06-02] MEDS: DOCUSATE SODIUM LIQ 100 MG/10 ML UDC GT SCH (09:23)
[2018-06-02] MEDS: ACIDOPHILUS/BULGARICUS 1 EACH TAB.CHEW GT SCH ×2 (09:23→20:33)
[2018-06-02] MEDS: MAGNESIUM OXIDE 400 MG TABLET GT SCH (09:24)
[2018-06-02] MEDS: METOPROLOL TARTRATE 25 MG TABLET GT SCH ×2 (09:24→20:34)
[2018-06-02] MEDS: AMLODIPINE BESYLATE 5 MG TABLET GT SCH (09:24)
[2018-06-02] MEDS: MULTIVIT W/MINERALS 1 TAB TABLET GT SCH (09:25)
[2018-06-02] MEDS: SENNOSIDES 8.6 MG TABLET GT SCH ×2 (09:25→20:34)
[2018-06-02] MEDS: PROSTAT (PYXIS) 30 ML UDC GT SCH ×2 (09:25→17:13)
[2018-06-02] MEDS: TRAMADOL HCL 50 MG TABLET GT SCH ×2 (09:28→20:34)
[2018-06-02] MEDS: ZINC SULFATE 220 MG CAPSULE GT SCH (09:28)
[2018-06-02] MEDS: ASCORBIC ACID 500 MG TABLET GT SCH (09:28)
--- NOTE | 2018-06-02 11:43 | NUR ---
Seen by AVERY Krishnamurthy. She is aware of pt's wound culture result. No new antibiotic order at this time. 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 Placed pt on contact isolation. Notified pt's daughter.
[2018-06-02 12:17] VITALS: BP 109/62
--- NOTE | 2018-06-02 13:01 | NUR ---
AVERY Krishnamurthy ordered to give Vancomycin and Zosyn IV pharmacy to dose for pt's left 1st metatarsal wound infection. Notified pt's daughter.
--- NOTE | 2018-06-02 13:07 | NUR ---
Informed Treating Plant Supervisor Olena regarding left 1st metatarsal arterial wound infection and contact isolation.
--- NOTE | 2018-06-02 13:56 | NUR ---
YNES spoke with podiatry Dr. Dudley following up with 05/30 appointment. informed he will be coming in weekly basis to see resident.
--- NOTE | 2018-06-02 15:10 | NUR ---
Relayed Mg 3.[address] Rico. Informed him pt is on Magnesium oxide 400 mg daily.
--- NOTE | 2018-06-02 15:37 | NUR ---
Received order to give Vancomycin 500mg IV q 24 hours, Vancomycin trough BUN and Cr before 4th dose. Also received order to give Zosyn 3.375 gm IV q 8 hours.
[2018-06-02] MEDS: ZOSYN IVPB 3.375 G in IV D5W 50ml IV SCH (16:00)
--- NOTE | 2018-06-02 16:00 | NUR ---
Dr Rico aware of magnesium level 3.3. He ordered to continue magnesium oxide.
[2018-06-02] MEDS: ONDANSETRON HCL 4 MG/5 ML SOLUTION GT PRN (16:37)
[2018-06-02] MEDS: VANCOMYCIN 500 MG in IV D5W 100ml IV SCH (17:51)
[2018-06-02 18:47] VITALS: BP 120/79
[2018-06-02 19:49] VITALS: BP 104/58
[2018-06-02] MEDS: INSULIN DETEMIR 100 UNIT/ML CARTRIDGE SQ SCH (22:31)
--- NOTE | 2018-06-02 23:15 | NUR ---
RN NOTES BLOOD GLUCOSE ACCUCHECK 196. ADMINISTERED SCHEDULED LEVEMIR 10UN. GAVE ADDITIONAL 3UN NOVOLIN INSULIN COVERAGE PER SLIDING SCALE.
[2018-06-03] VITALS: BP 104/58
[2018-06-03] MEDS: IPRATROPIUM NEB FS 0.5 MG/2.5 ML AMPUL.NEB NEB SCH ×4 (01:19→19:42)
--- NOTE | 2018-06-03 02:30 | NUR ---
RN NOTES IV ABX ZOSYN WAS NOT DELIVERED BY THE PHARMACY IN TIME. HAD TO TAKE OUT ZOSYN 3.375G VIAL FROM THE E-KIT IN THE MED ROOM; SA WOOD PILER TOOK THE ZOSYN VILE OUT OF THE E-KIT. INFUSED ZOSYN 3.375GM @100ML/HR. Pt TOLERATED IT WELL. NO ADVERSE REACTION NOTED. IV ACCESS ON AND #22G.
[2018-06-03 06:00] VITALS: BP 103/53
[2018-06-03] MEDS: BLOOD SUGAR DIAGNOSTIC 1 EACH STRIP IN SCH ×3 (06:04→18:03)
[2018-06-03] MEDS: ZOSYN IVPB 3.375 G in IV D5W 50ml IV SCH ×4 (08:00→16:00)
[2018-06-03] MEDS: GLUCERNA 1.2 1,000 ML BOTTLE GT PRN (08:22)
[2018-06-03] MEDS: HYDROGEL DRESSING 90 GM TUBE TP SCH (09:00)
[2018-06-03] MEDS: ACIDOPHILUS/BULGARICUS 1 EACH TAB.CHEW GT SCH ×2 (09:00→20:56)
[2018-06-03] MEDS: SENNOSIDES 8.6 MG TABLET GT SCH ×2 (09:00→20:56)
[2018-06-03] MEDS: CLOTRIMAZOLE 1% 15 GM TUBE TP SCH ×2 (09:00→21:30)
[2018-06-03] MEDS: Z GUARD REMEDY 2 OZ OINT TP SCH ×2 (09:00→21:30)
[2018-06-03] MEDS: HYDROGEN PEROXIDE 480 ML BOTTLE TP SCH ×2 (09:00→21:30)
[2018-06-03] MEDS: ASCORBIC ACID 500 MG TABLET GT SCH (09:00)
[2018-06-03] MEDS: Z GUARD REMEDY 4 OZ OINT TP SCH ×2 (09:00→21:30)
[2018-06-03] MEDS: TRAMADOL HCL 50 MG TABLET GT SCH ×2 (09:00→20:56)
[2018-06-03] MEDS: MAGNESIUM OXIDE 400 MG TABLET GT SCH (09:00)
[2018-06-03] MEDS: METOPROLOL TARTRATE 25 MG TABLET GT SCH ×2 (09:00→20:56)
[2018-06-03] MEDS: PROSTAT (PYXIS) 30 ML UDC GT SCH ×2 (09:00→17:05)
[2018-06-03] MEDS: DAKINS HALF STRENGTH (0.25%) 480 ML BOTTLE TOP SCH (09:00)
[2018-06-03] MEDS: ZINC SULFATE 220 MG CAPSULE GT SCH (09:00)
[2018-06-03] MEDS: AMLODIPINE BESYLATE 5 MG TABLET GT SCH (09:00)
[2018-06-03] MEDS: DOCUSATE SODIUM LIQ 100 MG/10 ML UDC GT SCH (09:00)
[2018-06-03] MEDS: MULTIVIT W/MINERALS 1 TAB TABLET GT SCH (09:00)
[2018-06-03] MEDS: VITS A AND D/WHITE PET/LANOLIN 5 GM PACKET TP SCH ×2 (09:00→21:30)
[2018-06-03 12:17] VITALS: BP 103/53
[2018-06-03] MEDS: INSULIN REGULAR, HUMAN 100 UNIT/ML 3 ML VIAL SQ PRN ×2 (12:35→18:05)
[2018-06-03 18:12] VITALS: BP 115/63
[2018-06-03] MEDS: VANCOMYCIN 500 MG in IV D5W 100ml IV SCH (18:46)
[2018-06-03] MEDS: INSULIN DETEMIR 100 UNIT/ML CARTRIDGE SQ SCH (22:59)
[2018-06-04] VITALS (7 sets, daily range): BP systolic 103–135; BP diastolic 56–71
[2018-06-04] MEDS: BLOOD SUGAR DIAGNOSTIC 1 EACH STRIP IN SCH ×5 (00:44→23:45)
[2018-06-04] MEDS: INSULIN REGULAR, HUMAN 100 UNIT/ML 3 ML VIAL SQ PRN ×5 (00:46→23:48)
[2018-06-04] MEDS: IPRATROPIUM NEB FS 0.5 MG/2.5 ML AMPUL.NEB NEB SCH ×4 (01:35→20:05)
[2018-06-04 07:13] LABS: BASOPHILS % (AUTO) 0.2 % (0.0-2.0); EOSINOPHILS % (AUTO) 1.4 % (0.0-6.0); HEMATOCRIT 32 % (33-45); HEMOGLOBIN 9.9 g/dL (11.5-14.8); LYMPHOCYTES # (AUTO) 0.7 /CMM (0.8-4.8); LYMPHOCYTES % (AUTO) 5.5 % (20.0-44.0); MEAN CORPUSCULAR HGB CONC 31 g/dl (31.0-36.0); MEAN CORPUSCULAR VOLUME 75 fL (82-100); MONOCYTES # (AUTO) 0.7 /CMM (0.1-1.30); MONOCYTES % (AUTO) 5.3 % (2.0-12.0); NEUTROPHILS # (AUTO) 11.7 /CMM (1.8-8.9); NEUTROPHILS % (AUTO) 87.6 % (43.0-81.0); PLATELET COUNT (AUTO) 271 /CMM (150-450); RED BLOOD CELL COUNT(AUTO) 4.23 MIL/uL (4.0-5.2); WHITE BLOOD COUNT (AUTO) 13.4 K/uL (4.3-11.0)
[2018-06-04 07:42] LABS: ALANINE AMINOTRANSFERASE 59 U/L (12-78); ALBUMIN 2.5 g/dL (3.4-5.0); ALKALINE PHOSPHATASE 199 U/L (46-116); ASPARTATE AMINOTRANSFERASE 70 U/L (15-37); BILIRUBIN,TOTAL 0.4 mg/dL (0.2-1.0); CALCIUM, SERUM 8.8 mg/dL (8.5-10.1); CARBON DIOXIDE 27 mmol/L (21-32); CHLORIDE 100 mmol/L (98-107); CREATININE 1.7 mg/dL (0.6-1.3); GLUCOSE 191 mg/dL (74-106); POTASSIUM 4.3 mmol/L (3.5-5.1); SODIUM SERUM 136 mmol/L (136-145); TOTAL PROTEIN, SERUM 8.1 g/dL (6.4-8.2); UREA NITROGEN, BLOOD 78 mg/dL (7-18)
[2018-06-04] MEDS: ZOSYN IVPB 3.375 G in IV D5W 50ml IV SCH ×4 (08:00→16:50)
[2018-06-04] MEDS: AMLODIPINE BESYLATE 5 MG TABLET GT SCH (09:00)
[2018-06-04] MEDS: METOPROLOL TARTRATE 25 MG TABLET GT SCH ×2 (09:00→21:45)
[2018-06-04] MEDS: DOCUSATE SODIUM LIQ 100 MG/10 ML UDC GT SCH (09:36)
[2018-06-04] MEDS: ACIDOPHILUS/BULGARICUS 1 EACH TAB.CHEW GT SCH ×2 (09:36→21:44)
[2018-06-04] MEDS: PROSTAT (PYXIS) 30 ML UDC GT SCH ×2 (09:38→17:08)
[2018-06-04] MEDS: MULTIVIT W/MINERALS 1 TAB TABLET GT SCH (09:38)
[2018-06-04] MEDS: SENNOSIDES 8.6 MG TABLET GT SCH ×2 (09:38→21:45)
[2018-06-04] MEDS: MAGNESIUM OXIDE 400 MG TABLET GT SCH (09:38)
[2018-06-04] MEDS: ASCORBIC ACID 500 MG TABLET GT SCH (09:39)
[2018-06-04] MEDS: ZINC SULFATE 220 MG CAPSULE GT SCH (09:39)
[2018-06-04] MEDS: TRAMADOL HCL 50 MG TABLET GT SCH ×2 (09:41→21:47)
[2018-06-04] MEDS: Z GUARD REMEDY 4 OZ OINT TP SCH ×2 (10:41→21:48)
[2018-06-04] MEDS: HYDROGEL DRESSING 90 GM TUBE TP SCH (10:41)
[2018-06-04] MEDS: VITS A AND D/WHITE PET/LANOLIN 5 GM PACKET TP SCH ×2 (10:41→21:48)
[2018-06-04] MEDS: DAKINS HALF STRENGTH (0.25%) 480 ML BOTTLE TOP SCH (10:41)
[2018-06-04] MEDS: Z GUARD REMEDY 2 OZ OINT TP SCH ×2 (10:41→21:48)
[2018-06-04] MEDS: HYDROGEN PEROXIDE 480 ML BOTTLE TP SCH ×2 (10:41→21:47)
[2018-06-04] MEDS: CLOTRIMAZOLE 1% 15 GM TUBE TP SCH ×2 (10:41→21:47)
--- NOTE | 2018-06-04 11:00 | NUR ---
Notified Dr. Ralph Mendoza that patient's sacral wound is almost healed. to evaluate wound and treatment. Endorsed.
--- NOTE | 2018-06-04 14:00 | NUR ---
Seen and examined by Maria Fernanda Mata NP NNO given. Patient currently on IV ATB Vancomycin and Zosyn for L foot wound infection. No adverse reaction noted. Observed contact isolation for MRSA wound.
[2018-06-04] MEDS: VANCOMYCIN 500 MG in IV D5W 100ml IV SCH (18:02)
[2018-06-04] MEDS: INSULIN DETEMIR 100 UNIT/ML CARTRIDGE SQ SCH (22:04)
[2018-06-05] VITALS: BP 145/42
[2018-06-05] MEDS: ZOSYN IVPB 3.375 G in IV D5W 50ml IV SCH ×3 (00:22→16:00)
[2018-06-05] MEDS: ONDANSETRON HCL 4 MG/5 ML SOLUTION GT PRN (01:28)
[2018-06-05] MEDS: IPRATROPIUM NEB FS 0.5 MG/2.5 ML AMPUL.NEB NEB SCH ×4 (02:28→19:49)
[2018-06-05] MEDS: GLUCERNA 1.2 1,000 ML BOTTLE GT PRN ×2 (04:21→21:00)
[2018-06-05 06:00] VITALS: BP 128/67
[2018-06-05] MEDS: BLOOD SUGAR DIAGNOSTIC 1 EACH STRIP IN SCH ×4 (06:03→23:34)
[2018-06-05] MEDS: INSULIN REGULAR, HUMAN 100 UNIT/ML 3 ML VIAL SQ PRN ×4 (06:05→23:36)
[2018-06-05 07:46] VITALS: BP 122/75
[2018-06-05] MEDS: ACIDOPHILUS/BULGARICUS 1 EACH TAB.CHEW GT SCH ×2 (09:54→21:26)
[2018-06-05] MEDS: METOPROLOL TARTRATE 25 MG TABLET GT SCH ×2 (09:54→21:26)
[2018-06-05] MEDS: DOCUSATE SODIUM LIQ 100 MG/10 ML UDC GT SCH (09:54)
[2018-06-05] MEDS: MAGNESIUM OXIDE 400 MG TABLET GT SCH (09:54)
[2018-06-05] MEDS: ASCORBIC ACID 500 MG TABLET GT SCH (09:55)
[2018-06-05] MEDS: MULTIVIT W/MINERALS 1 TAB TABLET GT SCH (09:55)
[2018-06-05] MEDS: ZINC SULFATE 220 MG CAPSULE GT SCH (09:55)
[2018-06-05] MEDS: PROSTAT (PYXIS) 30 ML UDC GT SCH ×2 (09:55→17:00)
[2018-06-05] MEDS: SENNOSIDES 8.6 MG TABLET GT SCH ×2 (09:55→21:26)
[2018-06-05] MEDS: AMLODIPINE BESYLATE 5 MG TABLET GT SCH (09:55)
[2018-06-05] MEDS: TRAMADOL HCL 50 MG TABLET GT SCH ×2 (09:55→21:27)
[2018-06-05] MEDS: VITS A AND D/WHITE PET/LANOLIN 5 GM PACKET TP SCH ×2 (10:30→21:27)
[2018-06-05] MEDS: Z GUARD REMEDY 4 OZ OINT TP SCH ×2 (10:30→21:27)
[2018-06-05] MEDS: CLOTRIMAZOLE 1% 15 GM TUBE TP SCH ×2 (10:30→21:27)
[2018-06-05] MEDS: Z GUARD REMEDY 2 OZ OINT TP SCH ×2 (10:30→21:27)
[2018-06-05] MEDS: DAKINS HALF STRENGTH (0.25%) 480 ML BOTTLE TOP SCH (10:30)
[2018-06-05] MEDS: HYDROGEN PEROXIDE 480 ML BOTTLE TP SCH ×2 (10:30→21:27)
[2018-06-05] MEDS: HYDROGEL DRESSING 90 GM TUBE TP SCH (10:30)
[2018-06-05 12:01] VITALS: BP 146/86
--- NOTE | 2018-06-05 14:29 | NUR ---
RT NOTE: PATIENT RECEIVED TRACHED ON MECHANICAL VENT. ALARMS VERIFIED AND AUDIBLE. SUCTIONED AND LAVAGED SMALL-MODERATE AMOUNT OF THICK SHIPMAN SECRETIONS. AMBU BAG AND NEW TRACH AT [facility].
[2018-06-05 17:46] LABS: CREATININE 1.6 mg/dL (0.6-1.3)
[2018-06-05] MEDS: VANCOMYCIN 500 MG in IV D5W 100ml IV SCH (18:00)
[2018-06-05 18:30] VITALS: BP 118/72
[2018-06-05] MEDS: MAGNESIUM HYDROXIDE 30 ML UDC GT PRN ×2 (18:36→23:35)
[2018-06-05 19:31] VITALS: BP 133/80
[2018-06-05] MEDS: INSULIN DETEMIR 100 UNIT/ML CARTRIDGE SQ SCH (21:28)
--- NOTE | 2018-06-05 21:40 | NUR ---
RT NOTE PATIENT WAS RECEIVED ON CONTINUOUS VENT SUPPORT ON NOTED VENT SETTINGS. GEOLOGY SCIENTIST DONE. AMBU BAG @ BEDSIDE. Q6 BREATHING TX GIVEN WITH NO ADVERSE REACTION NOTED. SUCTION DONE PRN.TRACH TUBE PATENT AND SECURED. ALARMS ON AND AUDIBLE. NO RESPIRATORY DISTRESS NOTED AT THIS TIME. WILL CONTINUE TO MONITOR PATIENT. Addendum: 06/05/18 at 2140 by NYA RICHARDS RT Amended: Links added.
[2018-06-06] VITALS (8 sets, daily range): BP systolic 111–161; BP diastolic 59–91
[2018-06-06] MEDS: ZOSYN IVPB 3.375 G in IV D5W 50ml IV SCH ×3 (00:07→15:56)
[2018-06-06] MEDS: IPRATROPIUM NEB FS 0.5 MG/2.5 ML AMPUL.NEB NEB SCH ×4 (01:30→19:43)
[2018-06-06] MEDS: BLOOD SUGAR DIAGNOSTIC 1 EACH STRIP IN SCH ×3 (05:30→17:48)
[2018-06-06] MEDS: INSULIN REGULAR, HUMAN 100 UNIT/ML 3 ML VIAL SQ PRN ×3 (05:32→17:47)
--- NOTE | 2018-06-06 05:54 | NUR ---
PT MOVED TO ROOM 273-1 FOR ISOLATION PROTOCOL.
[2018-06-06 07:32] LABS: BASOPHILS % (AUTO) 0.3 % (0.0-2.0); EOSINOPHILS % (AUTO) 2.6 % (0.0-6.0); HEMATOCRIT 32 % (33-45); HEMOGLOBIN 10.1 g/dL (11.5-14.8); LYMPHOCYTES # (AUTO) 0.9 /CMM (0.8-4.8); LYMPHOCYTES % (AUTO) 8.1 % (20.0-44.0); MEAN CORPUSCULAR HGB CONC 31 g/dl (31.0-36.0); MEAN CORPUSCULAR VOLUME 75 fL (82-100); MONOCYTES # (AUTO) 0.8 /CMM (0.1-1.30); MONOCYTES % (AUTO) 7.1 % (2.0-12.0); NEUTROPHILS # (AUTO) 9.2 /CMM (1.8-8.9); NEUTROPHILS % (AUTO) 81.9 % (43.0-81.0); PLATELET COUNT (AUTO) 261 /CMM (150-450); RED BLOOD CELL COUNT(AUTO) 4.26 MIL/uL (4.0-5.2); WHITE BLOOD COUNT (AUTO) 11.3 K/uL (4.3-11.0)
[2018-06-06 08:04] LABS: ALANINE AMINOTRANSFERASE 139 U/L (12-78); ALBUMIN 2.6 g/dL (3.4-5.0); ALKALINE PHOSPHATASE 280 U/L (46-116); ASPARTATE AMINOTRANSFERASE 102 U/L (15-37); BILIRUBIN,TOTAL 0.5 mg/dL (0.2-1.0); CARBON DIOXIDE 25 mmol/L (21-32); CHLORIDE 107 mmol/L (98-107); CREATININE 1.5 mg/dL (0.6-1.3); GLUCOSE 128 mg/dL (74-106); POTASSIUM 4.8 mmol/L (3.5-5.1); SODIUM SERUM 142 mmol/L (136-145); TOTAL PROTEIN, SERUM 8.3 g/dL (6.4-8.2); UREA NITROGEN, BLOOD 60 mg/dL (7-18)
[2018-06-06] MEDS: ACIDOPHILUS/BULGARICUS 1 EACH TAB.CHEW GT SCH ×2 (09:58→21:16)
[2018-06-06] MEDS: DOCUSATE SODIUM LIQ 100 MG/10 ML UDC GT SCH (09:58)
[2018-06-06] MEDS: MULTIVIT W/MINERALS 1 TAB TABLET GT SCH (09:59)
[2018-06-06] MEDS: TRAMADOL HCL 50 MG TABLET GT SCH ×2 (09:59→21:17)
[2018-06-06] MEDS: METOPROLOL TARTRATE 25 MG TABLET GT SCH ×2 (09:59→21:16)
[2018-06-06] MEDS: SENNOSIDES 8.6 MG TABLET GT SCH ×2 (09:59→21:16)
[2018-06-06] MEDS: ZINC SULFATE 220 MG CAPSULE GT SCH (09:59)
[2018-06-06] MEDS: PROSTAT (PYXIS) 30 ML UDC GT SCH ×2 (09:59→17:47)
[2018-06-06] MEDS: AMLODIPINE BESYLATE 5 MG TABLET GT SCH (09:59)
[2018-06-06] MEDS: ASCORBIC ACID 500 MG TABLET GT SCH (09:59)
[2018-06-06] MEDS: MAGNESIUM OXIDE 400 MG TABLET GT SCH (09:59)
[2018-06-06] MEDS: Z GUARD REMEDY 4 OZ OINT TP SCH ×2 (10:30→22:00)
[2018-06-06] MEDS: HYDROGEL DRESSING 90 GM TUBE TP SCH (10:30)
[2018-06-06] MEDS: VITS A AND D/WHITE PET/LANOLIN 5 GM PACKET TP SCH ×2 (10:30→22:00)
[2018-06-06] MEDS: CLOTRIMAZOLE 1% 15 GM TUBE TP SCH ×2 (10:30→22:00)
[2018-06-06] MEDS: Z GUARD REMEDY 2 OZ OINT TP SCH ×2 (10:30→22:00)
[2018-06-06] MEDS: HYDROGEN PEROXIDE 480 ML BOTTLE TP SCH ×2 (10:30→22:00)
[2018-06-06] MEDS: DAKINS HALF STRENGTH (0.25%) 480 ML BOTTLE TOP SCH (10:30)
--- NOTE | 2018-06-06 11:40 | NUR ---
SW informed daughter of resident's new room number ( 273 bed 1)
[2018-06-06] MEDS: CLONIDINE HCL 0.1 MG TABLET GT PRN (12:00)
[2018-06-06] MEDS: ONDANSETRON HCL 4 MG/5 ML SOLUTION GT PRN (14:01)
--- NOTE | 2018-06-06 16:24 | NUR ---
Seen by RESERVOIR ENGINEERING ADVISOR Beatrice Krishnamurthy, asked for ATB Vancomycin and Zosyn stop date , she said it is for 6 weeks total but it may extended beyond 6 weeks if necessary. Meanwhile ATB order given for duration of 6 weeks. Resident also seen by Dr. Tan, global engineering manager assessed L foot wound. NNO given.
[2018-06-06] MEDS: GLUCERNA 1.2 1,000 ML BOTTLE GT PRN (17:47)
[2018-06-06] MEDS: VANCOMYCIN 500 MG in IV D5W 100ml IV SCH (18:00)
[2018-06-06] MEDS: INSULIN DETEMIR 100 UNIT/ML CARTRIDGE SQ SCH (21:37)
[2018-06-07] MEDS: BLOOD SUGAR DIAGNOSTIC 1 EACH STRIP IN SCH ×5 (00:09→23:29)
[2018-06-07] MEDS: INSULIN REGULAR, HUMAN 100 UNIT/ML 3 ML VIAL SQ PRN ×4 (00:11→23:31)
[2018-06-07 00:25] VITALS: BP 136/68
[2018-06-07] MEDS: IPRATROPIUM NEB FS 0.5 MG/2.5 ML AMPUL.NEB NEB SCH ×4 (01:22→19:25)
[2018-06-07 06:12] VITALS: BP 138/72
[2018-06-07] MEDS: ZOSYN IVPB 3.375 G in IV D5W 50ml IV SCH ×3 (08:00)
[2018-06-07 08:56] VITALS: BP 126/65
[2018-06-07] MEDS: ACIDOPHILUS/BULGARICUS 1 EACH TAB.CHEW GT SCH ×2 (09:11→21:48)
[2018-06-07] MEDS: DOCUSATE SODIUM LIQ 100 MG/10 ML UDC GT SCH (09:11)
[2018-06-07] MEDS: MULTIVIT W/MINERALS 1 TAB TABLET GT SCH (09:12)
[2018-06-07] MEDS: AMLODIPINE BESYLATE 5 MG TABLET GT SCH (09:12)
[2018-06-07] MEDS: METOPROLOL TARTRATE 25 MG TABLET GT SCH ×2 (09:12→21:49)
[2018-06-07] MEDS: TRAMADOL HCL 50 MG TABLET GT SCH ×2 (09:12→21:49)
[2018-06-07] MEDS: MAGNESIUM OXIDE 400 MG TABLET GT SCH (09:12)
[2018-06-07] MEDS: SENNOSIDES 8.6 MG TABLET GT SCH ×2 (09:12→21:49)
[2018-06-07] MEDS: PROSTAT (PYXIS) 30 ML UDC GT SCH ×2 (09:12→17:33)
[2018-06-07] MEDS: ZINC SULFATE 220 MG CAPSULE GT SCH (09:13)
[2018-06-07] MEDS: ASCORBIC ACID 500 MG TABLET GT SCH (09:13)
[2018-06-07] MEDS: VITS A AND D/WHITE PET/LANOLIN 5 GM PACKET TP SCH ×2 (09:45→21:49)
[2018-06-07] MEDS: HYDROGEL DRESSING 90 GM TUBE TP SCH (09:45)
[2018-06-07] MEDS: Z GUARD REMEDY 2 OZ OINT TP SCH ×2 (09:45→21:49)
[2018-06-07] MEDS: Z GUARD REMEDY 4 OZ OINT TP SCH ×2 (09:45→21:49)
[2018-06-07] MEDS: DAKINS HALF STRENGTH (0.25%) 480 ML BOTTLE TOP SCH (09:45)
[2018-06-07] MEDS: HYDROGEN PEROXIDE 480 ML BOTTLE TP SCH ×2 (09:45→21:49)
[2018-06-07] MEDS ORDERED: SENNOSIDES 8.6 MG TABLET GT SCH (11:49)
[2018-06-07] MEDS: POLYETHYLENE GLYCOL 3350 17 GM POWD.PACK GT SCH (12:46)
[2018-06-07 12:47] VITALS: BP 143/66
--- NOTE | 2018-06-07 13:49 | NUR ---
Seen and examined by Dr. Patrick, made aware that patient with episode of constipation and vomiting. Reviewed current stool softener and laxative order, increased Colace and added Miralax x 5days to manage constipation. Notified resident's daughter of new order. Appreciated the call.
--- NOTE | 2018-06-07 16:31 | NUR ---
RT NOTE: PATIENT RECEIVED TRACHED ON MECHANICAL VENT. ALARMS VERIFIED AND AUDIBLE. SUCTIONED AND LAVAGED SMALL-MODERATE AMOUNT OF THICK SHIPMAN SECRETIONS. AMBU BAG AND NEW TRACH AT [facility].
--- NOTE | 2018-06-07 16:48 | NUR ---
Seen and examined by AVERY Hoover, reviewed labs, culture reports and ATB, NNO given.
[2018-06-07 18:41] VITALS: BP 144/77
[2018-06-07] MEDS: VANCOMYCIN 500 MG in IV D5W 100ml IV SCH (19:00)
[2018-06-07 19:33] VITALS: BP 146/66
[2018-06-07] MEDS ORDERED: LEVOFLOXACIN 750 MG /D5W 150ML 750 MG in PREMIX 1 EA IV SCH (21:00)
[2018-06-07] MEDS: INSULIN DETEMIR 100 UNIT/ML CARTRIDGE SQ SCH (21:50)
[2018-06-07] MEDS: CLONIDINE HCL 0.1 MG TABLET GT PRN (23:32)
[2018-06-08] VITALS: BP 160/75
[2018-06-08] MEDS: IPRATROPIUM NEB FS 0.5 MG/2.5 ML AMPUL.NEB NEB SCH ×4 (02:00→19:25)
[2018-06-08] MEDS: GLUCERNA 1.2 1,000 ML BOTTLE GT PRN ×2 (03:30→17:13)
[2018-06-08] MEDS: BLOOD SUGAR DIAGNOSTIC 1 EACH STRIP IN SCH ×4 (05:33→23:13)
[2018-06-08] MEDS: INSULIN REGULAR, HUMAN 100 UNIT/ML 3 ML VIAL SQ PRN ×3 (05:34→23:14)
[2018-06-08] MEDS: CLONIDINE HCL 0.1 MG TABLET GT PRN (05:35)
[2018-06-08 06:00] VITALS: BP 131/71
[2018-06-08] MEDS: ZOSYN IVPB 3.375 G in IV D5W 50ml IV SCH ×2 (08:00→16:00)
[2018-06-08] MEDS: ACIDOPHILUS/BULGARICUS 1 EACH TAB.CHEW GT SCH ×2 (08:49→21:17)
[2018-06-08] MEDS: DOCUSATE SODIUM LIQ 100 MG/10 ML UDC GT SCH (08:49)
[2018-06-08] MEDS: METOPROLOL TARTRATE 25 MG TABLET GT SCH ×2 (08:49→21:17)
[2018-06-08] MEDS: AMLODIPINE BESYLATE 5 MG TABLET GT SCH (08:50)
[2018-06-08] MEDS: TRAMADOL HCL 50 MG TABLET GT SCH ×2 (08:50→21:18)
[2018-06-08] MEDS: PROSTAT (PYXIS) 30 ML UDC GT SCH ×2 (08:50→16:57)
[2018-06-08] MEDS: POLYETHYLENE GLYCOL 3350 17 GM POWD.PACK GT SCH (08:50)
[2018-06-08] MEDS: ASCORBIC ACID 500 MG TABLET GT SCH (08:50)
[2018-06-08] MEDS: MAGNESIUM OXIDE 400 MG TABLET GT SCH (08:50)
[2018-06-08] MEDS: MULTIVIT W/MINERALS 1 TAB TABLET GT SCH (08:50)
[2018-06-08] MEDS: ZINC SULFATE 220 MG CAPSULE GT SCH (08:50)
[2018-06-08] MEDS: Z GUARD REMEDY 4 OZ OINT TP SCH ×2 (09:00→21:18)
[2018-06-08] MEDS: DAKINS HALF STRENGTH (0.25%) 480 ML BOTTLE TOP SCH (09:00)
[2018-06-08] MEDS: HYDROGEN PEROXIDE 480 ML BOTTLE TP SCH ×2 (09:00→21:18)
[2018-06-08] MEDS: Z GUARD REMEDY 2 OZ OINT TP SCH ×2 (09:00→21:18)
[2018-06-08] MEDS: HYDROGEL DRESSING 90 GM TUBE TP SCH (09:00)
[2018-06-08] MEDS: VITS A AND D/WHITE PET/LANOLIN 5 GM PACKET TP SCH ×2 (09:00→21:18)
[2018-06-08 11:02] VITALS: BP 123/64
[2018-06-08 15:18] VITALS: BP 123/69
--- NOTE | 2018-06-08 15:20 | NUR ---
Seen by AVERY Hoover. She said to continue Zosyn. She ordered CBC and BMP for tomorrow.
--- NOTE | 2018-06-08 16:24 | NUR ---
Spoke with [facility] IV pharmacist Elisabeth. She said to continue Zosyn 3.375 gm IV q 8 hours.
[2018-06-08 18:01] VITALS: BP 143/59
--- NOTE | 2018-06-08 18:09 | NUR ---
AVERY Hoover ordered to DC Manisha and start pt on Levaquin 750 mg IV q 48 hours x 7 days based on wound C&S. Notified pt's daughter.
[2018-06-08] MEDS: VANCOMYCIN 500 MG in IV D5W 100ml IV SCH (18:48)
[2018-06-08 19:41] VITALS: BP 147/67
[2018-06-08] MEDS: LEVOFLOXACIN 750 MG /D5W 150ML 750 MG in PREMIX 1 EA IV SCH (20:00)
--- NOTE | 2018-06-08 20:04 | NUR ---
PATIENT RECEIVED ON MECHANICAL VENTILATION WITH SETTINGS OF AC 15, 450 VT, 30%, +5. SUCTIONED WITH LAVAGE FOR MINIMAL, THICK, YELLOW-CREAM SECRETIONS. GIVEN IN-LINE TREATMENTS WITH NO ADVERSE REACTIONS. AMBU BAG AT BEDSIDE. VENT ALARM AUDIBLE AND VISIBLE. VENT PLUGGED INTO RED OUTLET. Addendum: 06/08/18 at 2004 by CAMMY MCELROY RT Amended: Links added.
[2018-06-08] MEDS: SENNOSIDES 8.6 MG TABLET GT SCH (21:18)
[2018-06-08] MEDS: INSULIN DETEMIR 100 UNIT/ML CARTRIDGE SQ SCH (21:19)
[2018-06-09 00:25] VITALS: BP 136/64
[2018-06-09] MEDS: IPRATROPIUM NEB FS 0.5 MG/2.5 ML AMPUL.NEB NEB SCH ×4 (02:07→19:17)
[2018-06-09] MEDS: BLOOD SUGAR DIAGNOSTIC 1 EACH STRIP IN SCH ×4 (05:36→23:22)
[2018-06-09] MEDS: INSULIN REGULAR, HUMAN 100 UNIT/ML 3 ML VIAL SQ PRN ×4 (05:37→23:23)
[2018-06-09 06:04] VITALS: BP 140/72
[2018-06-09 07:05] LABS: BASOPHILS # (AUTO) 0.1 /CMM (0.0-0.2); BASOPHILS % (AUTO) 0.8 % (0.0-2.0); EOSINOPHILS % (AUTO) 3.9 % (0.0-6.0); HEMATOCRIT 33 % (33-45); HEMOGLOBIN 10.4 g/dL (11.5-14.8); LYMPHOCYTES # (AUTO) 1.1 /CMM (0.8-4.8); LYMPHOCYTES % (AUTO) 10.2 % (20.0-44.0); MEAN CORPUSCULAR HGB CONC 32 g/dl (31.0-36.0); MEAN CORPUSCULAR VOLUME 75 fL (82-100); MONOCYTES # (AUTO) 0.6 /CMM (0.1-1.30); MONOCYTES % (AUTO) 5.7 % (2.0-12.0); NEUTROPHILS # (AUTO) 8.9 /CMM (1.8-8.9); NEUTROPHILS % (AUTO) 79.4 % (43.0-81.0); PLATELET COUNT (AUTO) 295 /CMM (150-450); WHITE BLOOD COUNT (AUTO) 11.2 K/uL (4.3-11.0)
[2018-06-09 07:15] LABS: CALCIUM, SERUM 8.9 mg/dL (8.5-10.1); CARBON DIOXIDE 24 mmol/L (21-32); CHLORIDE 101 mmol/L (98-107); CREATININE 1.3 mg/dL (0.6-1.3); GLUCOSE 224 mg/dL (74-106); SODIUM SERUM 135 mmol/L (136-145); UREA NITROGEN, BLOOD 49 mg/dL (7-18)
[2018-06-09] MEDS: AMLODIPINE BESYLATE 5 MG TABLET GT SCH (08:30)
[2018-06-09] MEDS: METOPROLOL TARTRATE 25 MG TABLET GT SCH ×2 (08:30→21:21)
[2018-06-09] MEDS: PROSTAT (PYXIS) 30 ML UDC GT SCH ×2 (08:30→16:26)
[2018-06-09] MEDS: MULTIVIT W/MINERALS 1 TAB TABLET GT SCH (08:30)
[2018-06-09] MEDS: ACIDOPHILUS/BULGARICUS 1 EACH TAB.CHEW GT SCH ×2 (08:30→21:21)
[2018-06-09] MEDS: POLYETHYLENE GLYCOL 3350 17 GM POWD.PACK GT SCH (08:30)
[2018-06-09] MEDS: DOCUSATE SODIUM LIQ 100 MG/10 ML UDC GT SCH (08:30)
[2018-06-09] MEDS: MAGNESIUM OXIDE 400 MG TABLET GT SCH (08:30)
[2018-06-09] MEDS: TRAMADOL HCL 50 MG TABLET GT SCH ×2 (08:31→21:22)
[2018-06-09] MEDS: ZINC SULFATE 220 MG CAPSULE GT SCH (08:31)
[2018-06-09] MEDS: ASCORBIC ACID 500 MG TABLET GT SCH (08:31)
[2018-06-09 08:32] LABS: EOSINOPHILS % (MANUAL) 6 % (0-4); LYMPHOCYTES % (MANUAL) 18 % (16-48); MONOCYTES % (MANUAL) 6 % (0-11.0); MYELOCYTES % 2 % (0-0); NEUTROPHILS % (MANUAL) 68 (42-76)
[2018-06-09 09:38] VITALS: BP 135/74
[2018-06-09] MEDS: Z GUARD REMEDY 2 OZ OINT TP SCH ×2 (09:48→21:22)
[2018-06-09] MEDS: HYDROGEN PEROXIDE 480 ML BOTTLE TP SCH ×2 (09:48→21:22)
[2018-06-09] MEDS: Z GUARD REMEDY 4 OZ OINT TP SCH ×2 (09:48→21:22)
[2018-06-09] MEDS: DAKINS HALF STRENGTH (0.25%) 480 ML BOTTLE TOP SCH (09:48)
[2018-06-09] MEDS: VITS A AND D/WHITE PET/LANOLIN 5 GM PACKET TP SCH ×2 (09:48→21:22)
[2018-06-09] MEDS: HYDROGEL DRESSING 90 GM TUBE TP SCH (09:48)
--- NOTE | 2018-06-09 13:50 | NUR ---
Seen by AVERY Hoover. She said she already saw pt's lab results. No new order at this time.
[2018-06-09 13:52] VITALS: BP 128/65
[2018-06-09] MEDS: GLUCERNA 1.2 1,000 ML BOTTLE GT PRN (16:18)
[2018-06-09 18:27] VITALS: BP 130/70
[2018-06-09] MEDS: VANCOMYCIN 500 MG in IV D5W 100ml IV SCH (18:54)
[2018-06-09 20:05] VITALS: BP 127/58
[2018-06-09] MEDS: SENNOSIDES 8.6 MG TABLET GT SCH (21:22)
[2018-06-09] MEDS: INSULIN DETEMIR 100 UNIT/ML CARTRIDGE SQ SCH (21:23)
[2018-06-10 00:03] VITALS: BP 136/64
[2018-06-10] MEDS: IPRATROPIUM NEB FS 0.5 MG/2.5 ML AMPUL.NEB NEB SCH ×4 (01:28→19:05)
[2018-06-10] MEDS: BLOOD SUGAR DIAGNOSTIC 1 EACH STRIP IN SCH ×4 (05:54→23:33)
[2018-06-10] MEDS: INSULIN REGULAR, HUMAN 100 UNIT/ML 3 ML VIAL SQ PRN ×4 (05:55→23:34)
[2018-06-10 06:37] VITALS: BP 133/67
--- NOTE | 2018-06-10 07:31 | NUR ---
RT PT RECEIVED TRACHED ON THE VENT WITH NOTED SETTINGS. PT IS AWAKE BUT DOES NOT FOLLOW COMMANDS. VENT ALARMS ARE SET AND AUDIBLE WITH BVM BY BEDSIDE. MESSAGING ARCHITECT CUFF PRESSURE NOTED. VENT IS PLUGGED INTO RED OUTLET. PT SX'D MODERATE THICK PALE YELLOW SECRETIONS. HHN TX GIVEN WITH NO ADVERSE REACTIONS. NO RESPIRATORY DISTRESS NOTED AT THIS TIME, WILL CONTINUE TO MONITOR. Addendum: 06/10/18 at 0938 by ZAK SUAREZ RT Amended: Links added.
[2018-06-10 07:39] VITALS: BP 130/75
[2018-06-10] MEDS: PROSTAT (PYXIS) 30 ML UDC GT SCH ×2 (08:48→17:37)
[2018-06-10] MEDS: ACIDOPHILUS/BULGARICUS 1 EACH TAB.CHEW GT SCH ×2 (08:48→21:06)
[2018-06-10] MEDS: METOPROLOL TARTRATE 25 MG TABLET GT SCH ×2 (08:48→21:07)
[2018-06-10] MEDS: AMLODIPINE BESYLATE 5 MG TABLET GT SCH (08:48)
[2018-06-10] MEDS: MAGNESIUM OXIDE 400 MG TABLET GT SCH (08:48)
[2018-06-10] MEDS: DOCUSATE SODIUM LIQ 100 MG/10 ML UDC GT SCH (08:48)
[2018-06-10] MEDS: POLYETHYLENE GLYCOL 3350 17 GM POWD.PACK GT SCH (08:48)
[2018-06-10] MEDS: MULTIVIT W/MINERALS 1 TAB TABLET GT SCH (08:48)
[2018-06-10] MEDS: ZINC SULFATE 220 MG CAPSULE GT SCH (08:49)
[2018-06-10] MEDS: TRAMADOL HCL 50 MG TABLET GT SCH ×2 (08:49→21:08)
[2018-06-10] MEDS: ASCORBIC ACID 500 MG TABLET GT SCH (08:49)
[2018-06-10] MEDS: HYDROGEL DRESSING 90 GM TUBE TP SCH (09:00)
[2018-06-10] MEDS: HYDROGEN PEROXIDE 480 ML BOTTLE TP SCH ×2 (09:00→21:08)
[2018-06-10] MEDS: VITS A AND D/WHITE PET/LANOLIN 5 GM PACKET TP SCH ×2 (09:00→21:08)
[2018-06-10] MEDS: Z GUARD REMEDY 2 OZ OINT TP SCH ×2 (09:00→21:08)
[2018-06-10] MEDS: DAKINS HALF STRENGTH (0.25%) 480 ML BOTTLE TOP SCH (09:00)
[2018-06-10] MEDS: Z GUARD REMEDY 4 OZ OINT TP SCH ×2 (09:00→21:08)
--- NOTE | 2018-06-10 09:00 | NUR ---
Seen and examined by Dr. Agarwal, no new order given. Will continue with plan of care.
--- NOTE | 2018-06-10 10:30 | NUR ---
Seen and examined by Dr. Aguirre, no new order given.
[2018-06-10 14:36] VITALS: BP 128/60
--- NOTE | 2018-06-10 14:45 | NUR ---
Short Order Fry Cook Section of [facility] completed. (. quarter). Patient is comatose and is on vent. Patient has a DPOA ( daughter Daily) who makes medical decisions for her on her behalf. Pt is DNR. Pt had a IDT mtg on May 23., was seeing by a podiatry on 05/30 and has a dentist appointment on June 30.
[2018-06-10] MEDS: GLUCERNA 1.2 1,000 ML BOTTLE GT PRN (17:24)
[2018-06-10] MEDS: VANCOMYCIN 500 MG in IV D5W 100ml IV SCH (17:55)
[2018-06-10 18:17] VITALS: BP 133/65
[2018-06-10] MEDS: LEVOFLOXACIN 750 MG /D5W 150ML 750 MG in PREMIX 1 EA IV SCH (20:00)
[2018-06-10 20:33] VITALS: BP 121/81
[2018-06-10] MEDS: SENNOSIDES 8.6 MG TABLET GT SCH (21:08)
[2018-06-10] MEDS: INSULIN DETEMIR 100 UNIT/ML CARTRIDGE SQ SCH (21:09)
[2018-06-11] MEDS: IPRATROPIUM NEB FS 0.5 MG/2.5 ML AMPUL.NEB NEB SCH ×4 (01:12→19:42)
[2018-06-11 03:23] VITALS: BP 124/58
[2018-06-11] MEDS: BLOOD SUGAR DIAGNOSTIC 1 EACH STRIP IN SCH ×4 (05:53→23:29)
[2018-06-11] MEDS: INSULIN REGULAR, HUMAN 100 UNIT/ML 3 ML VIAL SQ PRN ×4 (05:54→23:30)
[2018-06-11 06:21] VITALS: BP 132/69
[2018-06-11 07:44] VITALS: BP 138/63
[2018-06-11] MEDS: Z GUARD REMEDY 2 OZ OINT TP SCH ×2 (09:00→22:30)
[2018-06-11] MEDS: DOCUSATE SODIUM LIQ 100 MG/10 ML UDC GT SCH (09:31)
[2018-06-11] MEDS: ACIDOPHILUS/BULGARICUS 1 EACH TAB.CHEW GT SCH ×2 (09:31→21:52)
[2018-06-11] MEDS: MAGNESIUM OXIDE 400 MG TABLET GT SCH (09:32)
[2018-06-11] MEDS: METOPROLOL TARTRATE 25 MG TABLET GT SCH ×2 (09:32→21:53)
[2018-06-11] MEDS: AMLODIPINE BESYLATE 5 MG TABLET GT SCH (09:32)
[2018-06-11] MEDS: POLYETHYLENE GLYCOL 3350 17 GM POWD.PACK GT SCH (09:32)
[2018-06-11] MEDS: MULTIVIT W/MINERALS 1 TAB TABLET GT SCH (09:33)
[2018-06-11] MEDS: PROSTAT (PYXIS) 30 ML UDC GT SCH ×2 (09:33→16:15)
[2018-06-11] MEDS: ASCORBIC ACID 500 MG TABLET GT SCH (09:34)
[2018-06-11] MEDS: TRAMADOL HCL 50 MG TABLET GT SCH ×2 (09:34→21:53)
[2018-06-11] MEDS: ZINC SULFATE 220 MG CAPSULE GT SCH (09:35)
[2018-06-11] MEDS: GLUCERNA 1.2 1,000 ML BOTTLE GT PRN (09:35)
[2018-06-11] MEDS: DAKINS HALF STRENGTH (0.25%) 480 ML BOTTLE TOP SCH (10:34)
[2018-06-11] MEDS: HYDROGEN PEROXIDE 480 ML BOTTLE TP SCH ×2 (10:34→22:30)
[2018-06-11] MEDS: Z GUARD REMEDY 4 OZ OINT TP SCH ×2 (10:34→22:30)
[2018-06-11] MEDS: VITS A AND D/WHITE PET/LANOLIN 5 GM PACKET TP SCH ×2 (10:34→22:30)
[2018-06-11] MEDS: HYDROGEL DRESSING 90 GM TUBE TP SCH (10:34)
[2018-06-11 12:00] VITALS: BP 131/68
[2018-06-11] MEDS: ONDANSETRON HCL 4 MG/5 ML SOLUTION GT PRN (15:52)
--- NOTE | 2018-06-11 17:56 | NUR ---
Reminded lab that a Vancomycin trough level is scheduled at 1730. Spoke with [facility] and said they are on their way. Notified [facility] IV pharmacist (Ariel) and said OK to hang the medication after the level has been drawn, no need to wait for the result.
[2018-06-11 18:07] VITALS: BP 121/64
[2018-06-11] MEDS: VANCOMYCIN 500 MG in IV D5W 100ml IV SCH (18:44)
--- NOTE | 2018-06-11 19:42 | NUR ---
RT NOTE: RECEIVED TRACH PT ON [facility] VENT ON NOTED SETTINGS PER MD ORDERS. TRACH IS PATENT AND SECURED. BEHAVIORAL SERVICES TECH DONE. Q6 BREATHING TX GIVEN WITH NO ADVERSE REACTION NOTED. SX DONE PRN. VENT PLUGGED INTO RED OUTLET. ALARMS ON AND AUDIBLE. FROY BAG @ BEDSIDE. NO RESP DISTRESS AT THIS TIME. WILL CONT TO MONITOR PT. Addendum: 06/12/18 at 0229 by PREMA SOTO RT Amended: Links added.
[2018-06-11 19:53] VITALS: BP 146/82
[2018-06-11] MEDS: SENNOSIDES 8.6 MG TABLET GT SCH (21:53)
[2018-06-11] MEDS: INSULIN DETEMIR 100 UNIT/ML CARTRIDGE SQ SCH (21:54)
[2018-06-12 00:20] VITALS: BP 137/68
[2018-06-12] MEDS: IPRATROPIUM NEB FS 0.5 MG/2.5 ML AMPUL.NEB NEB SCH ×4 (01:13→19:47)
[2018-06-12] MEDS: BLOOD SUGAR DIAGNOSTIC 1 EACH STRIP IN SCH ×4 (05:35→23:38)
[2018-06-12] MEDS: GLUCERNA 1.2 1,000 ML BOTTLE GT PRN ×2 (05:35→23:38)
[2018-06-12] MEDS: INSULIN REGULAR, HUMAN 100 UNIT/ML 3 ML VIAL SQ PRN ×4 (05:36→23:39)
[2018-06-12 06:29] VITALS: BP 139/66
[2018-06-12] MEDS: BISACODYL SUPP (10 MG) 10 MG/SUPP.RECT SUPP.RECT RC PRN (06:59)
[2018-06-12] MEDS: ACIDOPHILUS/BULGARICUS 1 EACH TAB.CHEW GT SCH ×2 (09:00→21:00)
[2018-06-12] MEDS: DOCUSATE SODIUM LIQ 100 MG/10 ML UDC GT SCH (09:00)
[2018-06-12] MEDS: METOPROLOL TARTRATE 25 MG TABLET GT SCH ×2 (09:00→21:00)
[2018-06-12] MEDS: MAGNESIUM OXIDE 400 MG TABLET GT SCH (09:00)
[2018-06-12] MEDS: PROSTAT (PYXIS) 30 ML UDC GT SCH ×2 (09:00→17:00)
[2018-06-12] MEDS: MULTIVIT W/MINERALS 1 TAB TABLET GT SCH (09:00)
[2018-06-12] MEDS: ZINC SULFATE 220 MG CAPSULE GT SCH (09:00)
[2018-06-12] MEDS: ASCORBIC ACID 500 MG TABLET GT SCH (09:00)
[2018-06-12] MEDS: AMLODIPINE BESYLATE 5 MG TABLET GT SCH (09:00)
[2018-06-12] MEDS: TRAMADOL HCL 50 MG TABLET GT SCH ×2 (10:00→21:00)
[2018-06-12] MEDS: VITS A AND D/WHITE PET/LANOLIN 5 GM PACKET TP SCH ×2 (10:30→21:00)
[2018-06-12] MEDS: Z GUARD REMEDY 2 OZ OINT TP SCH ×2 (10:30→21:00)
[2018-06-12] MEDS: HYDROGEN PEROXIDE 480 ML BOTTLE TP SCH ×2 (10:30→21:00)
[2018-06-12] MEDS: Z GUARD REMEDY 4 OZ OINT TP SCH ×2 (10:30→21:00)
[2018-06-12] MEDS: HYDROGEL DRESSING 90 GM TUBE TP SCH (10:30)
[2018-06-12] MEDS: DAKINS HALF STRENGTH (0.25%) 480 ML BOTTLE TOP SCH (10:30)
[2018-06-12 10:42] VITALS: BP 132/63
[2018-06-12 12:00] VITALS: BP 137/69
[2018-06-12] MEDS: ONDANSETRON HCL 4 MG/5 ML SOLUTION GT PRN (12:22)
[2018-06-12 18:00] VITALS: BP 135/64
[2018-06-12] MEDS: VANCOMYCIN 500 MG in IV D5W 100ml IV SCH (18:00)
[2018-06-12 19:55] VITALS: BP 124/65
[2018-06-12] MEDS: LEVOFLOXACIN 750 MG /D5W 150ML 750 MG in PREMIX 1 EA IV SCH (20:00)
[2018-06-12] MEDS: MAGNESIUM HYDROXIDE 30 ML UDC GT PRN (20:00)
[2018-06-12] MEDS: SENNOSIDES 8.6 MG TABLET GT SCH (22:34)
[2018-06-12] MEDS: INSULIN DETEMIR 100 UNIT/ML CARTRIDGE SQ SCH (22:36)
[2018-06-12] MEDS: CLONIDINE HCL 0.1 MG TABLET GT PRN (23:38)
[2018-06-13] VITALS: BP 147/79
[2018-06-13] MEDS: IPRATROPIUM NEB FS 0.5 MG/2.5 ML AMPUL.NEB NEB SCH ×4 (01:45→19:34)
[2018-06-13] MEDS: CLONIDINE HCL 0.1 MG TABLET GT PRN (05:39)
[2018-06-13] MEDS: BLOOD SUGAR DIAGNOSTIC 1 EACH STRIP IN SCH ×4 (05:39→23:41)
[2018-06-13] MEDS: INSULIN REGULAR, HUMAN 100 UNIT/ML 3 ML VIAL SQ PRN ×4 (05:40→23:41)
[2018-06-13 06:00] VITALS: BP 151/86
[2018-06-13] MEDS: MAGNESIUM HYDROXIDE 30 ML UDC GT PRN ×2 (07:04→23:39)
[2018-06-13] MEDS: BISACODYL SUPP (10 MG) 10 MG/SUPP.RECT SUPP.RECT RC PRN (07:05)
[2018-06-13 08:05] VITALS: BP 148/173
[2018-06-13] MEDS: PROSTAT (PYXIS) 30 ML UDC GT SCH ×2 (08:53→17:00)
[2018-06-13] MEDS: METOPROLOL TARTRATE 25 MG TABLET GT SCH ×2 (08:53→21:51)
[2018-06-13] MEDS: MAGNESIUM OXIDE 400 MG TABLET GT SCH (08:53)
[2018-06-13] MEDS: AMLODIPINE BESYLATE 5 MG TABLET GT SCH (08:53)
[2018-06-13] MEDS: ACIDOPHILUS/BULGARICUS 1 EACH TAB.CHEW GT SCH ×2 (08:53→21:49)
[2018-06-13] MEDS: ASCORBIC ACID 500 MG TABLET GT SCH (08:53)
[2018-06-13] MEDS: TRAMADOL HCL 50 MG TABLET GT SCH ×2 (08:53→21:52)
[2018-06-13] MEDS: DOCUSATE SODIUM LIQ 100 MG/10 ML UDC GT SCH (08:53)
[2018-06-13] MEDS: MULTIVIT W/MINERALS 1 TAB TABLET GT SCH (08:53)
[2018-06-13] MEDS: ZINC SULFATE 220 MG CAPSULE GT SCH (08:54)
[2018-06-13] MEDS: HYDROGEL DRESSING 90 GM TUBE TP SCH (09:30)
[2018-06-13] MEDS: VITS A AND D/WHITE PET/LANOLIN 5 GM PACKET TP SCH ×2 (09:30→22:30)
[2018-06-13] MEDS: DAKINS HALF STRENGTH (0.25%) 480 ML BOTTLE TOP SCH (09:30)
[2018-06-13] MEDS: HYDROGEN PEROXIDE 480 ML BOTTLE TP SCH ×2 (09:30→22:30)
[2018-06-13] MEDS: Z GUARD REMEDY 4 OZ OINT TP SCH ×2 (09:30→22:30)
[2018-06-13] MEDS: Z GUARD REMEDY 2 OZ OINT TP SCH ×2 (09:30→22:30)
--- NOTE | 2018-06-13 09:59 | NUR ---
RT NOTE RECEIVED PT MECHANICALLY VENTILATED VIA CUFFED TRACHEOSTOMY TUBE. CUFF INFLATED VIA COURTROOM DEPUTY. TRACHEOSTOMY TUBE MIDLINE AND SECURE. VENTILATOR SETTINGS PRESCRIBED. ALARMS SET PER PROTOCOL AND AUDIBLE. VENT PLUGGED IN TO RED OUTLET. AMBU BAG AT BED SIDE. NO DISTRESS NOTED AT MOMENT. Addendum: 06/13/18 at 1000 by JYOTHI RICHARDS RT Amended: Links added.
[2018-06-13 12:46] VITALS: BP 142/77
[2018-06-13] MEDS: METOCLOPRAMIDE HCL 10 MG/10 ML UDC GT SCH ×2 (13:00→21:51)
[2018-06-13] MEDS: VANCOMYCIN 500 MG in IV D5W 100ml IV SCH (18:00)
[2018-06-13] MEDS: GLUCERNA 1.2 1,000 ML BOTTLE GT PRN (18:13)
[2018-06-13 18:25] VITALS: BP 130/70
--- NOTE | 2018-06-13 19:00 | NUR ---
Seen and examined by Dr. Patrick this morning made aware that patient has gastric residual of 370 ml. New order Reglan 10 mg/GT Q8 hours given for gastroparesis. Resident's daughter Jennifer informed.
[2018-06-13 20:03] VITALS: BP 137/71
[2018-06-13] MEDS: INSULIN DETEMIR 100 UNIT/ML CARTRIDGE SQ SCH (21:52)
[2018-06-13] MEDS: SENNOSIDES 8.6 MG TABLET GT SCH (21:52)
[2018-06-14 00:10] VITALS: BP 127/71
[2018-06-14] MEDS: IPRATROPIUM NEB FS 0.5 MG/2.5 ML AMPUL.NEB NEB SCH ×4 (01:04→19:56)
[2018-06-14] MEDS: BLOOD SUGAR DIAGNOSTIC 1 EACH STRIP IN SCH ×4 (05:21→23:55)
[2018-06-14] MEDS: METOCLOPRAMIDE HCL 10 MG/10 ML UDC GT SCH ×3 (05:21→21:08)
[2018-06-14] MEDS: INSULIN REGULAR, HUMAN 100 UNIT/ML 3 ML VIAL SQ PRN ×4 (05:26→23:59)
[2018-06-14] MEDS: CLONIDINE HCL 0.1 MG TABLET GT PRN (05:44)
[2018-06-14 06:18] VITALS: BP 153/84
[2018-06-14 08:03] VITALS: BP 123/62
[2018-06-14] MEDS: MULTIVIT W/MINERALS 1 TAB TABLET GT SCH (09:00)
[2018-06-14] MEDS: PROSTAT (PYXIS) 30 ML UDC GT SCH ×2 (09:00→17:19)
[2018-06-14] MEDS: AMLODIPINE BESYLATE 5 MG TABLET GT SCH (09:00)
[2018-06-14] MEDS: ASCORBIC ACID 500 MG TABLET GT SCH (09:00)
[2018-06-14] MEDS: MAGNESIUM OXIDE 400 MG TABLET GT SCH (09:00)
[2018-06-14] MEDS: ZINC SULFATE 220 MG CAPSULE GT SCH (09:00)
[2018-06-14] MEDS: DOCUSATE SODIUM LIQ 100 MG/10 ML UDC GT SCH (09:59)
[2018-06-14] MEDS: ACIDOPHILUS/BULGARICUS 1 EACH TAB.CHEW GT SCH ×2 (09:59→21:08)
[2018-06-14] MEDS: METOPROLOL TARTRATE 25 MG TABLET GT SCH ×2 (10:00→21:08)
[2018-06-14] MEDS: TRAMADOL HCL 50 MG TABLET GT SCH ×2 (10:00→21:09)
[2018-06-14] MEDS: HYDROGEN PEROXIDE 480 ML BOTTLE TP SCH ×2 (10:30→21:37)
[2018-06-14] MEDS: DAKINS HALF STRENGTH (0.25%) 480 ML BOTTLE TOP SCH (10:30)
[2018-06-14] MEDS: Z GUARD REMEDY 4 OZ OINT TP SCH ×2 (10:30→21:37)
[2018-06-14] MEDS: Z GUARD REMEDY 2 OZ OINT TP SCH (10:30)
[2018-06-14] MEDS: VITS A AND D/WHITE PET/LANOLIN 5 GM PACKET TP SCH ×2 (10:30→21:37)
[2018-06-14 12:00] VITALS: BP 145/75
[2018-06-14] MEDS: GLUCERNA 1.2 1,000 ML BOTTLE GT PRN (13:02)
[2018-06-14] MEDS: MAGNESIUM HYDROXIDE 30 ML UDC GT PRN (17:21)
[2018-06-14] MEDS: VANCOMYCIN 500 MG in IV D5W 100ml IV SCH (17:42)
[2018-06-14 18:39] VITALS: BP 124/73
[2018-06-14] MEDS: LEVOFLOXACIN 750 MG /D5W 150ML 750 MG in PREMIX 1 EA IV SCH (20:00)
[2018-06-14 20:37] VITALS: BP 130/57
[2018-06-14] MEDS: SENNOSIDES 8.6 MG TABLET GT SCH (21:09)
[2018-06-14] MEDS: INSULIN DETEMIR 100 UNIT/ML CARTRIDGE SQ SCH (21:36)
[2018-06-15 00:20] VITALS: BP 135/71
[2018-06-15] MEDS: IPRATROPIUM NEB FS 0.5 MG/2.5 ML AMPUL.NEB NEB SCH ×4 (01:39→19:36)
[2018-06-15] MEDS: METOCLOPRAMIDE HCL 10 MG/10 ML UDC GT SCH ×3 (05:29→21:16)
[2018-06-15] MEDS: BLOOD SUGAR DIAGNOSTIC 1 EACH STRIP IN SCH ×3 (05:29→17:18)
[2018-06-15] MEDS: INSULIN REGULAR, HUMAN 100 UNIT/ML 3 ML VIAL SQ PRN ×3 (05:31→17:19)
[2018-06-15 06:11] VITALS: BP 134/67
--- NOTE | 2018-06-15 06:30 | NUR ---
Charge nurse been calling [facility] pharmacy from 8pm and finally at 10pm charge spoke to [facility]. the person stated that they deliver the medication on 20th for dose. charge nurse told him that there is no medication here. he said he will checked with the driver license examiner and will call back charge nurse. [phone]: charge nurse called [facility] again spoke with venus and he stated that he will just send a dose this morning.
[2018-06-15] MEDS: GLUCERNA 1.2 1,000 ML BOTTLE GT PRN (07:07)
[2018-06-15 07:47] VITALS: BP 122/59
[2018-06-15] MEDS: ACIDOPHILUS/BULGARICUS 1 EACH TAB.CHEW GT SCH ×2 (08:43→21:15)
[2018-06-15] MEDS: METOPROLOL TARTRATE 25 MG TABLET GT SCH ×2 (08:43→21:16)
[2018-06-15] MEDS: DOCUSATE SODIUM LIQ 100 MG/10 ML UDC GT SCH (08:43)
[2018-06-15] MEDS: AMLODIPINE BESYLATE 5 MG TABLET GT SCH (08:44)
[2018-06-15] MEDS: ZINC SULFATE 220 MG CAPSULE GT SCH (08:44)
[2018-06-15] MEDS: MAGNESIUM OXIDE 400 MG TABLET GT SCH (08:44)
[2018-06-15] MEDS: ASCORBIC ACID 500 MG TABLET GT SCH (08:44)
[2018-06-15] MEDS: PROSTAT (PYXIS) 30 ML UDC GT SCH ×2 (08:44→17:18)
[2018-06-15] MEDS: MULTIVIT W/MINERALS 1 TAB TABLET GT SCH (08:44)
[2018-06-15] MEDS: HYDROGEN PEROXIDE 480 ML BOTTLE TP SCH ×2 (09:00→21:16)
[2018-06-15] MEDS: Z GUARD REMEDY 4 OZ OINT TP SCH ×2 (09:00→21:16)
[2018-06-15] MEDS: DAKINS HALF STRENGTH (0.25%) 480 ML BOTTLE TOP SCH (09:00)
[2018-06-15] MEDS: VITS A AND D/WHITE PET/LANOLIN 5 GM PACKET TP SCH ×2 (09:00→21:16)
[2018-06-15] MEDS: TRAMADOL HCL 50 MG TABLET GT SCH ×2 (09:00→21:16)
--- NOTE | 2018-06-15 09:30 | NUR ---
Called [facility] pharmacy regarding the Levofloxacin IV missing dose but IV pharmacist wasn't in yet.
--- NOTE | 2018-06-15 11:30 | NUR ---
Called [facility] spoke with pharmacist Froylan, tried to figure out what went wrong why 1 Levofloxacin IV dose was missing but he can't find any record that it was delivered. He said he will have it delivered STAT
[2018-06-15 14:55] VITALS: BP 128/70
--- NOTE | 2018-06-15 16:00 | NUR ---
Seen and examined by CONTACT LENS BLOCKER Carole Hernandez with new order to draw CBC in AM. Asked her about the Levofloxacin missed dose last night because there was no available medication from [id number]. She said okay to give once available.
[2018-06-15] MEDS: VANCOMYCIN 500 MG in IV D5W 100ml IV SCH (18:00)
[2018-06-15 18:34] VITALS: BP 119/64
--- NOTE | 2018-06-15 19:00 | NUR ---
Missed dose of Levaquin 750 mg IV given as ordered.
[2018-06-15 19:30] VITALS: BP 111/50
[2018-06-15] MEDS: SENNOSIDES 8.6 MG TABLET GT SCH (21:16)
[2018-06-15] MEDS: INSULIN DETEMIR 100 UNIT/ML CARTRIDGE SQ SCH (21:17)
[2018-06-16] MEDS: BLOOD SUGAR DIAGNOSTIC 1 EACH STRIP IN SCH ×5 (00:10→23:24)
[2018-06-16] MEDS: INSULIN REGULAR, HUMAN 100 UNIT/ML 3 ML VIAL SQ PRN ×4 (00:10→23:26)
[2018-06-16 00:18] VITALS: BP 106/59
[2018-06-16] MEDS: IPRATROPIUM NEB FS 0.5 MG/2.5 ML AMPUL.NEB NEB SCH ×4 (00:58→19:22)
[2018-06-16] MEDS: METOCLOPRAMIDE HCL 10 MG/10 ML UDC GT SCH ×3 (05:47→20:50)
[2018-06-16 06:56] VITALS: BP 114/62
[2018-06-16 07:38] LABS: BASOPHILS % (AUTO) 0.3 % (0.0-2.0); EOSINOPHILS % (AUTO) 2.4 % (0.0-6.0); HEMATOCRIT 33 % (33-45); HEMOGLOBIN 10.3 g/dL (11.5-14.8); LYMPHOCYTES % (AUTO) 7.5 % (20.0-44.0); MEAN CORPUSCULAR HGB CONC 32 g/dl (31.0-36.0); MEAN CORPUSCULAR VOLUME 76 fL (82-100); NEUTROPHILS # (AUTO) 11.5 /CMM (1.8-8.9); NEUTROPHILS % (AUTO) 82.8 % (43.0-81.0); PLATELET COUNT (AUTO) 255 /CMM (150-450); RED BLOOD CELL COUNT(AUTO) 4.29 MIL/uL (4.0-5.2); WHITE BLOOD COUNT (AUTO) 13.9 K/uL (4.3-11.0)
[2018-06-16 07:57] VITALS: BP 129/61
[2018-06-16] MEDS: DOCUSATE SODIUM LIQ 100 MG/10 ML UDC GT SCH (08:40)
[2018-06-16] MEDS: ACIDOPHILUS/BULGARICUS 1 EACH TAB.CHEW GT SCH ×2 (08:40→20:49)
[2018-06-16] MEDS: ZINC SULFATE 220 MG CAPSULE GT SCH (08:41)
[2018-06-16] MEDS: ASCORBIC ACID 500 MG TABLET GT SCH (08:41)
[2018-06-16] MEDS: MULTIVIT W/MINERALS 1 TAB TABLET GT SCH (08:41)
[2018-06-16] MEDS: METOPROLOL TARTRATE 25 MG TABLET GT SCH ×2 (08:41→20:50)
[2018-06-16] MEDS: TRAMADOL HCL 50 MG TABLET GT SCH ×2 (08:41→20:50)
[2018-06-16] MEDS: PROSTAT (PYXIS) 30 ML UDC GT SCH ×2 (08:41→16:20)
[2018-06-16] MEDS: MAGNESIUM OXIDE 400 MG TABLET GT SCH (08:41)
[2018-06-16] MEDS: AMLODIPINE BESYLATE 5 MG TABLET GT SCH (08:41)
[2018-06-16] MEDS: VITS A AND D/WHITE PET/LANOLIN 5 GM PACKET TP SCH ×2 (09:00→20:50)
[2018-06-16] MEDS: HYDROGEN PEROXIDE 480 ML BOTTLE TP SCH ×2 (09:00→20:50)
[2018-06-16] MEDS: DAKINS HALF STRENGTH (0.25%) 480 ML BOTTLE TOP SCH (09:00)
[2018-06-16] MEDS: Z GUARD REMEDY 4 OZ OINT TP SCH ×2 (09:00→20:50)
[2018-06-16 14:54] VITALS: BP 129/68
--- NOTE | 2018-06-16 16:32 | NUR ---
Seen by AVERY Hoover. She is aware of pt's CBC result and temp 99.2 F. AVERY Hoover ordered to restart Levaquin 750 mg IV q 48 hours until 07/19/18, CBC and BMP q Saturday while on IV antibiotics and ESR q 2 weeks. Notified pt's daughter.
[2018-06-16] MEDS: GLUCERNA 1.2 1,000 ML BOTTLE GT PRN (17:28)
[2018-06-16 17:35] LABS: CREATININE 1.4 mg/dL (0.6-1.3)
[2018-06-16] MEDS: VANCOMYCIN 500 MG in IV D5W 100ml IV SCH (17:55)
[2018-06-16 18:06] VITALS: BP 145/74
[2018-06-16 19:50] VITALS: BP 126/63
[2018-06-16] MEDS: SENNOSIDES 8.6 MG TABLET GT SCH (21:26)
[2018-06-16] MEDS: INSULIN DETEMIR 100 UNIT/ML CARTRIDGE SQ SCH (21:27)
[2018-06-17] MEDS: IPRATROPIUM NEB FS 0.5 MG/2.5 ML AMPUL.NEB NEB SCH ×4 (01:44→19:16)
[2018-06-17 03:17] VITALS: BP 122/69
[2018-06-17] MEDS: METOCLOPRAMIDE HCL 10 MG/10 ML UDC GT SCH ×3 (05:57→21:22)
[2018-06-17] MEDS: BLOOD SUGAR DIAGNOSTIC 1 EACH STRIP IN SCH ×4 (06:36→23:37)
[2018-06-17] MEDS: INSULIN REGULAR, HUMAN 100 UNIT/ML 3 ML VIAL SQ PRN ×4 (06:37→23:38)
[2018-06-17 06:42] VITALS: BP 130/64
[2018-06-17 07:51] VITALS: BP 140/70
[2018-06-17] MEDS: METOPROLOL TARTRATE 25 MG TABLET GT SCH ×2 (08:48→21:22)
[2018-06-17] MEDS: ACIDOPHILUS/BULGARICUS 1 EACH TAB.CHEW GT SCH ×2 (08:48→21:22)
[2018-06-17] MEDS: PROSTAT (PYXIS) 30 ML UDC GT SCH ×2 (08:48→16:50)
[2018-06-17] MEDS: MAGNESIUM OXIDE 400 MG TABLET GT SCH (08:48)
[2018-06-17] MEDS: MULTIVIT W/MINERALS 1 TAB TABLET GT SCH (08:48)
[2018-06-17] MEDS: DOCUSATE SODIUM LIQ 100 MG/10 ML UDC GT SCH (08:48)
[2018-06-17] MEDS: AMLODIPINE BESYLATE 5 MG TABLET GT SCH (08:48)
[2018-06-17] MEDS: ASCORBIC ACID 500 MG TABLET GT SCH (08:50)
[2018-06-17] MEDS: TRAMADOL HCL 50 MG TABLET GT SCH ×2 (08:50→21:22)
[2018-06-17] MEDS: ZINC SULFATE 220 MG CAPSULE GT SCH (08:50)
[2018-06-17] MEDS: VITS A AND D/WHITE PET/LANOLIN 5 GM PACKET TP SCH ×2 (09:00→21:23)
[2018-06-17] MEDS: Z GUARD REMEDY 4 OZ OINT TP SCH ×2 (09:00→21:23)
[2018-06-17] MEDS: HYDROGEN PEROXIDE 480 ML BOTTLE TP SCH ×2 (09:00→21:23)
--- NOTE | 2018-06-17 09:30 | NUR ---
Seen and examined by Dr. Agarwal, no new order given.
--- NOTE | 2018-06-17 11:57 | NUR ---
Seen and examined by AVERY Hoover, reviewed lab results and temp. curve. No new order give.
[2018-06-17] MEDS: GLUCERNA 1.2 1,000 ML BOTTLE GT PRN (12:13)
[2018-06-17 14:53] VITALS: BP 125/68
--- NOTE | 2018-06-17 16:34 | NUR ---
Received fax from Merlin (([facility] pharmacist), continue Vancomycin 500 ng IV q 24 hours . Vanco trough, BUN, crea. on 06/20/18 at 1730.
[2018-06-17] MEDS: VANCOMYCIN 500 MG in IV D5W 100ml IV SCH (18:02)
[2018-06-17 18:19] VITALS: BP 140/83
[2018-06-17] MEDS: LEVOFLOXACIN 750 MG /D5W 150ML 750 MG in PREMIX 1 EA IV SCH (19:30)
[2018-06-17 20:38] VITALS: BP 139/57
[2018-06-17] MEDS: SENNOSIDES 8.6 MG TABLET GT SCH (21:23)
[2018-06-17] MEDS: INSULIN DETEMIR 100 UNIT/ML CARTRIDGE SQ SCH (21:24)
[2018-06-18 00:09] VITALS: BP 126/72
[2018-06-18] MEDS: IPRATROPIUM NEB FS 0.5 MG/2.5 ML AMPUL.NEB NEB SCH ×4 (01:13→19:57)
--- NOTE | 2018-06-18 04:28 | NUR ---
RT NOTE PT RECEIVED ON [facility] VENT ON THE FOLLOWING NOTED SETTINGS. PT SX'D. NO RESP DISTRESS OR SOB NOTED AT THIS TIME. BREATHING TX GIVEN, NO ADVERSE REACTIONS NOTED AT THIS TIME. VENT IS PLUGGED INTO RED OUTLET. ALARMS ARE ON AND AUDIBLE. SPARE TRACH AND AMBU BAG ARE AT BEDSIDE. WILL CONT TO MONITOR PT. Addendum: 06/18/18 at 5509 by MEI SANTANA RT Amended: Links added.
[2018-06-18] MEDS: METOCLOPRAMIDE HCL 10 MG/10 ML UDC GT SCH ×3 (05:00→20:38)
[2018-06-18 06:11] VITALS: BP 132/69
[2018-06-18] MEDS: BLOOD SUGAR DIAGNOSTIC 1 EACH STRIP IN SCH ×3 (06:13→17:26)
[2018-06-18] MEDS: INSULIN REGULAR, HUMAN 100 UNIT/ML 3 ML VIAL SQ PRN ×3 (06:14→17:26)
[2018-06-18] MEDS: MAGNESIUM OXIDE 400 MG TABLET GT SCH (09:56)
[2018-06-18] MEDS: MULTIVIT W/MINERALS 1 TAB TABLET GT SCH (09:56)
[2018-06-18] MEDS: METOPROLOL TARTRATE 25 MG TABLET GT SCH ×2 (09:56→20:37)
[2018-06-18] MEDS: AMLODIPINE BESYLATE 5 MG TABLET GT SCH (09:56)
[2018-06-18] MEDS: DOCUSATE SODIUM LIQ 100 MG/10 ML UDC GT SCH (09:56)
[2018-06-18] MEDS: PROSTAT (PYXIS) 30 ML UDC GT SCH ×2 (09:56→17:24)
[2018-06-18] MEDS: ACIDOPHILUS/BULGARICUS 1 EACH TAB.CHEW GT SCH ×2 (09:56→20:38)
[2018-06-18] MEDS: ZINC SULFATE 220 MG CAPSULE GT SCH (09:57)
[2018-06-18] MEDS: TRAMADOL HCL 50 MG TABLET GT SCH ×2 (09:57→20:38)
[2018-06-18] MEDS: Z GUARD REMEDY 4 OZ OINT TP SCH ×2 (09:57→20:38)
[2018-06-18] MEDS: VITS A AND D/WHITE PET/LANOLIN 5 GM PACKET TP SCH ×2 (09:57→20:38)
[2018-06-18] MEDS: ASCORBIC ACID 500 MG TABLET GT SCH (09:57)
[2018-06-18] MEDS: HYDROGEN PEROXIDE 480 ML BOTTLE TP SCH ×2 (09:57→20:38)
[2018-06-18 12:00] VITALS: BP 141/73
[2018-06-18 18:00] VITALS: BP 146/74
[2018-06-18] MEDS: VANCOMYCIN 500 MG in IV D5W 100ml IV SCH (18:00)
[2018-06-18] MEDS: MAGNESIUM HYDROXIDE 30 ML UDC GT PRN (18:02)
[2018-06-18] MEDS: ACETAMINOPHEN 650 MG/20 ML UDC- SA PATIENTS-PAIN ONLY GT PRN (18:03)
[2018-06-18 21:10] VITALS: BP 96/43
[2018-06-18] MEDS: SENNOSIDES 8.6 MG TABLET GT SCH (21:22)
[2018-06-18] MEDS: INSULIN DETEMIR 100 UNIT/ML CARTRIDGE SQ SCH (21:23)
--- NOTE | 2018-06-18 21:45 | NUR ---
RT PT REC'D TRACHED ON THE VENT WITH NOTED SETTINGS. PT IS AWAKE BUT DOES NOT RESPOND TO COMMANDS. VENT ALARMS ARE SET AND AUDIBLE WITH BVM BY BEDSIDE. WIRE WINDER CUFF PRESSURE NOTED. VENT IS PLUGGED INTO RED OUTLET. PT SX'D LARGE THICK PALE YELLOW SECRETIONS. HHN TX GIVEN WITH NO ADVERSE REACTIONS. NO RESPIRATORY DISTRESS NOTED AT THIS TIME, WILL CONTINUE TO MONITOR. Addendum: 06/18/18 at 2145 by FLORINDA TSE RT Amended: Links added.
[2018-06-19] VITALS: BP 98/43
[2018-06-19] MEDS: INSULIN REGULAR, HUMAN 100 UNIT/ML 3 ML VIAL SQ PRN ×4 (00:47→23:46)
[2018-06-19] MEDS: BLOOD SUGAR DIAGNOSTIC 1 EACH STRIP IN SCH ×5 (00:48→23:45)
[2018-06-19] MEDS: IPRATROPIUM NEB FS 0.5 MG/2.5 ML AMPUL.NEB NEB SCH ×4 (01:42→19:43)
[2018-06-19] MEDS: METOCLOPRAMIDE HCL 10 MG/10 ML UDC GT SCH ×3 (05:25→20:11)
[2018-06-19 06:00] VITALS: BP 102/50
[2018-06-19 06:51] LABS: ALANINE AMINOTRANSFERASE 20 U/L (12-78); ALBUMIN 2.4 g/dL (3.4-5.0); ALKALINE PHOSPHATASE 131 U/L (46-116); ASPARTATE AMINOTRANSFERASE 11 U/L (15-37); BILIRUBIN,TOTAL 0.4 mg/dL (0.2-1.0); CARBON DIOXIDE 28 mmol/L (21-32); CHLORIDE 97 mmol/L (98-107); CREATININE 1.6 mg/dL (0.6-1.3); GLUCOSE 272 mg/dL (74-106); POTASSIUM 5.2 mmol/L (3.5-5.1); SODIUM SERUM 134 mmol/L (136-145); UREA NITROGEN, BLOOD 69 mg/dL (7-18)
[2018-06-19 07:52] VITALS: BP 113/58
--- NOTE | 2018-06-19 08:54 | NUR ---
Relayed CMP result to Dr. Patrick with order to give Kayexalate 30gm via GT x 1 d/t K level 5.2. Order carried out.
--- NOTE | 2018-06-19 09:01 | NUR ---
RT NOTE PT RECEIVED ON [facility] ON THE FOLLOWING NOTED SETTINGS. PT SX'D. NO RESP DISTRESS OR SOB NOTED AT THIS TIME. BREATHING TX GIVEN, NO ADVERSE REACTIONS NOTED AT THIS TIME. VENT IS PLUGGED INTO RED OUTLET. ALARMS ARE ON AND AUDIBLE. SPARE TRACH AND AMBU BAG ARE AT BEDSIDE. WILL CONT TO MONITOR PT.
[2018-06-19] MEDS ORDERED: SODIUM POLYSTYRENE SULFONATE 15 G/60 ML BOTTLE PO ONE (09:30)
[2018-06-19] MEDS: TRAMADOL HCL 50 MG TABLET GT SCH ×2 (09:51→20:11)
[2018-06-19] MEDS: ACIDOPHILUS/BULGARICUS 1 EACH TAB.CHEW GT SCH ×2 (09:53→20:11)
[2018-06-19] MEDS: DOCUSATE SODIUM LIQ 100 MG/10 ML UDC GT SCH (09:53)
[2018-06-19] MEDS: ASCORBIC ACID 500 MG TABLET GT SCH (09:54)
[2018-06-19] MEDS: PROSTAT (PYXIS) 30 ML UDC GT SCH ×2 (09:54→17:30)
[2018-06-19] MEDS: METOPROLOL TARTRATE 25 MG TABLET GT SCH ×2 (09:54→20:11)
[2018-06-19] MEDS: AMLODIPINE BESYLATE 5 MG TABLET GT SCH (09:54)
[2018-06-19] MEDS: MULTIVIT W/MINERALS 1 TAB TABLET GT SCH (09:54)
[2018-06-19] MEDS: MAGNESIUM OXIDE 400 MG TABLET GT SCH (09:54)
[2018-06-19] MEDS: ZINC SULFATE 220 MG CAPSULE GT SCH (09:54)
[2018-06-19] MEDS: DAKINS HALF STRENGTH (0.25%) 480 ML BOTTLE TOP SCH (10:20)
[2018-06-19] MEDS: VITS A AND D/WHITE PET/LANOLIN 5 GM PACKET TP SCH ×2 (10:20→20:12)
[2018-06-19] MEDS: Z GUARD REMEDY 4 OZ OINT TP SCH ×2 (10:20→20:11)
[2018-06-19] MEDS: HYDROGEN PEROXIDE 480 ML BOTTLE TP SCH ×2 (10:20→20:11)
[2018-06-19 12:00] VITALS: BP 119/62
[2018-06-19] MEDS: VANCOMYCIN 500 MG in IV D5W 100ml IV SCH (17:25)
[2018-06-19] MEDS: LEVOFLOXACIN 750 MG /D5W 150ML 750 MG in PREMIX 1 EA IV SCH (18:22)
[2018-06-19 18:32] VITALS: BP 109/59
[2018-06-19] MEDS: GLUCERNA 1.2 1,000 ML BOTTLE GT PRN (18:58)
[2018-06-19] MEDS: MAGNESIUM HYDROXIDE 30 ML UDC GT PRN (20:12)
--- NOTE | 2018-06-19 20:28 | NUR ---
Seen by AVERY ABAD.
[2018-06-19 20:41] VITALS: BP 101/52
--- NOTE | 2018-06-19 20:59 | NUR ---
RT PT REC'D TRACHED ON THE VENT WITH NOTED SETTINGS. PT IS AWAKE BUT DOES NOT RESPOND TO COMMANDS. VENT ALARMS ARE SET AND AUDIBLE WITH BVM BY BEDSIDE. EQUAL OPPORTUNITY SPECIALIST CUFF PRESSURE NOTED. VENT IS PLUGGED INTO RED OUTLET. PT SX'D MODERATE THIN WHITE SECRETIONS. HHN TX GIVEN WITH NO ADVERSE REACTIONS. NO RESPIRATORY DISTRESS NOTED AT THIS TIME, WILL CONTINUE TO MONITOR. Addendum: 06/19/18 at 2100 by FLORINDA TSE RT Amended: Links added.
[2018-06-19] MEDS: SENNOSIDES 8.6 MG TABLET GT SCH (22:50)
[2018-06-19] MEDS: INSULIN DETEMIR 100 UNIT/ML CARTRIDGE SQ SCH (22:51)
[2018-06-20 01:10] VITALS: BP 104/57
[2018-06-20] MEDS: IPRATROPIUM NEB FS 0.5 MG/2.5 ML AMPUL.NEB NEB SCH ×4 (01:28→19:27)
[2018-06-20] MEDS: BISACODYL SUPP (10 MG) 10 MG/SUPP.RECT SUPP.RECT RC PRN (05:29)
[2018-06-20] MEDS: BLOOD SUGAR DIAGNOSTIC 1 EACH STRIP IN SCH ×4 (05:29→23:37)
[2018-06-20] MEDS: METOCLOPRAMIDE HCL 10 MG/10 ML UDC GT SCH ×3 (05:29→23:17)
[2018-06-20] MEDS: INSULIN REGULAR, HUMAN 100 UNIT/ML 3 ML VIAL SQ PRN ×3 (05:30→23:41)
[2018-06-20 06:22] VITALS: BP 110/62
[2018-06-20 07:52] VITALS: BP 135/71
--- NOTE | 2018-06-20 08:10 | NUR ---
Seen and examined by AVERY Mata, NNO given.
[2018-06-20] MEDS: VITS A AND D/WHITE PET/LANOLIN 5 GM PACKET TP SCH ×2 (09:00→21:00)
[2018-06-20] MEDS: Z GUARD REMEDY 4 OZ OINT TP SCH ×3 (09:00→21:00)
[2018-06-20] MEDS: HYDROGEN PEROXIDE 480 ML BOTTLE TP SCH ×2 (09:00→21:00)
[2018-06-20] MEDS: DOCUSATE SODIUM LIQ 100 MG/10 ML UDC GT SCH (09:39)
[2018-06-20] MEDS: ACIDOPHILUS/BULGARICUS 1 EACH TAB.CHEW GT SCH ×2 (09:40→21:00)
[2018-06-20] MEDS: AMLODIPINE BESYLATE 5 MG TABLET GT SCH (09:40)
[2018-06-20] MEDS: PROSTAT (PYXIS) 30 ML UDC GT SCH ×2 (09:40→17:15)
[2018-06-20] MEDS: MULTIVIT W/MINERALS 1 TAB TABLET GT SCH (09:40)
[2018-06-20] MEDS: METOPROLOL TARTRATE 25 MG TABLET GT SCH ×2 (09:40→21:00)
[2018-06-20] MEDS: ASCORBIC ACID 500 MG TABLET GT SCH (09:41)
[2018-06-20] MEDS: ZINC SULFATE 220 MG CAPSULE GT SCH (09:41)
[2018-06-20] MEDS: TRAMADOL HCL 50 MG TABLET GT SCH ×2 (09:41→23:07)
[2018-06-20] MEDS: MAGNESIUM OXIDE 400 MG TABLET GT SCH (09:42)
[2018-06-20] MEDS: DAKINS HALF STRENGTH (0.25%) 480 ML BOTTLE TOP SCH (10:15)
--- NOTE | 2018-06-20 10:18 | NUR ---
Seen and examined by SCHOOL BUSINESS ADMINISTRATOR Carole Dodd reviewed current ATB order, NNO given.
[2018-06-20 12:00] VITALS: BP 120/68
[2018-06-20] MEDS: VANCOMYCIN 500 MG in IV D5W 100ml IV SCH (17:15)
[2018-06-20 18:11] LABS: CREATININE 1.5 mg/dL (0.6-1.3)
[2018-06-20 18:54] VITALS: BP 126/72
[2018-06-20 19:48] VITALS: BP 114/64
[2018-06-20] MEDS: INSULIN DETEMIR 100 UNIT/ML CARTRIDGE SQ SCH (22:00)
[2018-06-20] MEDS: SENNOSIDES 8.6 MG TABLET GT SCH (22:00)
[2018-06-21] MEDS: IPRATROPIUM NEB FS 0.5 MG/2.5 ML AMPUL.NEB NEB SCH ×4 (01:41→19:19)
[2018-06-21] MEDS: METOCLOPRAMIDE HCL 10 MG/10 ML UDC GT SCH ×3 (05:07→21:56)
[2018-06-21 06:00] VITALS: BP 136/69
[2018-06-21] MEDS: BLOOD SUGAR DIAGNOSTIC 1 EACH STRIP IN SCH ×4 (06:44→23:30)
[2018-06-21] MEDS: INSULIN REGULAR, HUMAN 100 UNIT/ML 3 ML VIAL SQ PRN ×4 (06:46→23:32)
[2018-06-21 08:00] VITALS: BP 131/63
[2018-06-21] MEDS: ACIDOPHILUS/BULGARICUS 1 EACH TAB.CHEW GT SCH ×2 (08:24→21:55)
[2018-06-21] MEDS: DOCUSATE SODIUM LIQ 100 MG/10 ML UDC GT SCH (08:24)
[2018-06-21] MEDS: MULTIVIT W/MINERALS 1 TAB TABLET GT SCH (08:25)
[2018-06-21] MEDS: METOPROLOL TARTRATE 25 MG TABLET GT SCH ×2 (08:25→21:56)
[2018-06-21] MEDS: MAGNESIUM OXIDE 400 MG TABLET GT SCH (08:25)
[2018-06-21] MEDS: AMLODIPINE BESYLATE 5 MG TABLET GT SCH (08:25)
[2018-06-21] MEDS: PROSTAT (PYXIS) 30 ML UDC GT SCH ×2 (08:25→17:38)
[2018-06-21] MEDS: ZINC SULFATE 220 MG CAPSULE GT SCH (08:26)
[2018-06-21] MEDS: ASCORBIC ACID 500 MG TABLET GT SCH (08:26)
[2018-06-21] MEDS: TRAMADOL HCL 50 MG TABLET GT SCH ×2 (08:26→21:56)
[2018-06-21] MEDS: Z GUARD REMEDY 4 OZ OINT TP SCH ×6 (09:26→21:57)
[2018-06-21] MEDS: HYDROGEN PEROXIDE 480 ML BOTTLE TP SCH ×2 (09:26→21:56)
[2018-06-21] MEDS: DAKINS HALF STRENGTH (0.25%) 480 ML BOTTLE TOP SCH (09:26)
[2018-06-21] MEDS: VITS A AND D/WHITE PET/LANOLIN 5 GM PACKET TP SCH ×2 (09:26→21:57)
[2018-06-21 12:00] VITALS: BP 128/70
--- NOTE | 2018-06-21 16:30 | NUR ---
[facility] pharmacy called and spoke to alfredito Barber on vanco IV phar. to dose, patients' BUN is elevated 77, with new order to discontinue vanco dose tonight, to start vanco 1g IVPB Q 48 HRS seth. at 6 am, get vanco trough with BUN and creat on 06/26 () at 0530 . Noted and carried out.
[2018-06-21 18:00] VITALS: BP 117/56
[2018-06-21] MEDS: LEVOFLOXACIN 750 MG /D5W 150ML 750 MG in PREMIX 1 EA IV SCH (18:14)
[2018-06-21 19:54] VITALS: BP 122/58
--- NOTE | 2018-06-21 20:39 | NUR ---
RT NOTE RECEIVED PT MECHANICALLY VENTILATED VIA CUFFED TRACHEOSTOMY TUBE. CUFF INFLATED. TRACH TUBE MIDLINE AND SECURE. VENTILATOR SETTINGS PRESCRIBED. ALARMS SET PER PROTOCOL AND AUDIBLE. VENT PLUGGED IN TO RED OUTLET. AMBU BAG AT BED SIDE. NO DISTRESS NOTED AT MOMENT. Addendum: 06/21/18 at 2040 by JYOTHI RICHARDS RT Amended: Links added.
[2018-06-21] MEDS: SENNOSIDES 8.6 MG TABLET GT SCH (21:57)
[2018-06-21] MEDS: INSULIN DETEMIR 100 UNIT/ML CARTRIDGE SQ SCH (21:58)
[2018-06-21] MEDS: GLUCERNA 1.2 1,000 ML BOTTLE GT PRN ×2 (22:30→23:38)
[2018-06-21] MEDS: CLONIDINE HCL 0.1 MG TABLET GT PRN (23:37)
[2018-06-22] VITALS: BP 139/73
[2018-06-22] MEDS: IPRATROPIUM NEB FS 0.5 MG/2.5 ML AMPUL.NEB NEB SCH ×4 (01:26→19:21)
[2018-06-22] MEDS: METOCLOPRAMIDE HCL 10 MG/10 ML UDC GT SCH ×3 (05:11→21:40)
[2018-06-22] MEDS: BLOOD SUGAR DIAGNOSTIC 1 EACH STRIP IN SCH ×3 (05:15→17:41)
[2018-06-22] MEDS: INSULIN REGULAR, HUMAN 100 UNIT/ML 3 ML VIAL SQ PRN ×3 (05:16→17:37)
[2018-06-22 06:00] VITALS: BP 134/72
[2018-06-22] MEDS: VANCOMYCIN 1 GM in IV D5W 250 ML IV SCH (06:00)
[2018-06-22] MEDS ORDERED: VANCOMYCIN 500 MG in IV D5W 100ml IV SCH (06:00)
[2018-06-22] MEDS: CLONIDINE HCL 0.1 MG TABLET GT PRN (06:20)
[2018-06-22 07:39] VITALS: BP 126/65
[2018-06-22] MEDS: DOCUSATE SODIUM LIQ 100 MG/10 ML UDC GT SCH (08:54)
[2018-06-22] MEDS: ACIDOPHILUS/BULGARICUS 1 EACH TAB.CHEW GT SCH ×2 (08:54→21:40)
[2018-06-22] MEDS: PROSTAT (PYXIS) 30 ML UDC GT SCH ×2 (08:55→16:48)
[2018-06-22] MEDS: MULTIVIT W/MINERALS 1 TAB TABLET GT SCH (08:55)
[2018-06-22] MEDS: MAGNESIUM OXIDE 400 MG TABLET GT SCH (08:55)
[2018-06-22] MEDS: ZINC SULFATE 220 MG CAPSULE GT SCH (08:55)
[2018-06-22] MEDS: METOPROLOL TARTRATE 25 MG TABLET GT SCH ×2 (08:55→21:40)
[2018-06-22] MEDS: AMLODIPINE BESYLATE 5 MG TABLET GT SCH (08:55)
[2018-06-22] MEDS: ASCORBIC ACID 500 MG TABLET GT SCH (08:55)
[2018-06-22] MEDS: Z GUARD REMEDY 4 OZ OINT TP SCH ×6 (09:00→21:41)
[2018-06-22] MEDS: DAKINS HALF STRENGTH (0.25%) 480 ML BOTTLE TOP SCH (09:00)
[2018-06-22] MEDS: VITS A AND D/WHITE PET/LANOLIN 5 GM PACKET TP SCH ×2 (09:00→21:41)
[2018-06-22] MEDS: HYDROGEN PEROXIDE 480 ML BOTTLE TP SCH ×2 (09:00→21:41)
[2018-06-22] MEDS: TRAMADOL HCL 50 MG TABLET GT SCH ×2 (09:00→21:41)
[2018-06-22] MEDS: GLUCERNA 1.2 1,000 ML BOTTLE GT PRN (12:06)
[2018-06-22 15:32] VITALS: BP 123/60
[2018-06-22 18:27] VITALS: BP 138/67
[2018-06-22 19:43] VITALS: BP 145/64
[2018-06-22] MEDS: SENNOSIDES 8.6 MG TABLET GT SCH (21:41)
[2018-06-22] MEDS: INSULIN DETEMIR 100 UNIT/ML CARTRIDGE SQ SCH (21:42)
[2018-06-23] VITALS: BP 132/65
[2018-06-23] MEDS: BLOOD SUGAR DIAGNOSTIC 1 EACH STRIP IN SCH ×5 (00:11→23:56)
[2018-06-23] MEDS: INSULIN REGULAR, HUMAN 100 UNIT/ML 3 ML VIAL SQ PRN ×5 (00:12→23:58)
[2018-06-23] MEDS: IPRATROPIUM NEB FS 0.5 MG/2.5 ML AMPUL.NEB NEB SCH ×4 (01:57→19:45)
[2018-06-23] MEDS: METOCLOPRAMIDE HCL 10 MG/10 ML UDC GT SCH ×3 (04:55→21:02)
[2018-06-23] MEDS: GLUCERNA 1.2 1,000 ML BOTTLE GT PRN ×2 (04:55→18:19)
[2018-06-23 06:00] VITALS: BP 135/73
[2018-06-23] MEDS: CLONIDINE HCL 0.1 MG TABLET GT PRN (06:22)
[2018-06-23 07:27] LABS: BASOPHILS # (AUTO) 0.1 /CMM (0.0-0.2); EOSINOPHILS % (AUTO) 2.5 % (0.0-6.0); HEMATOCRIT 36 % (33-45); HEMOGLOBIN 11.1 g/dL (11.5-14.8); LYMPHOCYTES # (AUTO) 1.2 /CMM (0.8-4.8); LYMPHOCYTES % (AUTO) 10.3 % (20.0-44.0); MEAN CORPUSCULAR HGB CONC 31 g/dl (31.0-36.0); MEAN CORPUSCULAR VOLUME 76 fL (82-100); MONOCYTES # (AUTO) 1.2 /CMM (0.1-1.30); MONOCYTES % (AUTO) 10.5 % (2.0-12.0); NEUTROPHILS # (AUTO) 8.9 /CMM (1.8-8.9); NEUTROPHILS % (AUTO) 75.7 % (43.0-81.0); PLATELET COUNT (AUTO) 292 /CMM (150-450); WHITE BLOOD COUNT (AUTO) 11.8 K/uL (4.3-11.0)
[2018-06-23 07:33] LABS: CALCIUM, SERUM 9.6 mg/dL (8.5-10.1); CARBON DIOXIDE 28 mmol/L (21-32); CHLORIDE 96 mmol/L (98-107); CREATININE 1.3 mg/dL (0.6-1.3); GLUCOSE 212 mg/dL (74-106); POTASSIUM 5.5 mmol/L (3.5-5.1); SODIUM SERUM 131 mmol/L (136-145); UREA NITROGEN, BLOOD 62 mg/dL (7-18)
[2018-06-23 07:44] VITALS: BP 128/66
[2018-06-23] MEDS: MULTIVIT W/MINERALS 1 TAB TABLET GT SCH (08:27)
[2018-06-23] MEDS: ACIDOPHILUS/BULGARICUS 1 EACH TAB.CHEW GT SCH ×2 (08:27→21:02)
[2018-06-23] MEDS: DOCUSATE SODIUM LIQ 100 MG/10 ML UDC GT SCH (08:27)
[2018-06-23] MEDS: PROSTAT (PYXIS) 30 ML UDC GT SCH ×2 (08:27→17:14)
[2018-06-23] MEDS: METOPROLOL TARTRATE 25 MG TABLET GT SCH ×2 (08:27→21:02)
[2018-06-23] MEDS: MAGNESIUM OXIDE 400 MG TABLET GT SCH (08:27)
[2018-06-23] MEDS: AMLODIPINE BESYLATE 5 MG TABLET GT SCH (08:27)
[2018-06-23] MEDS: ZINC SULFATE 220 MG CAPSULE GT SCH (08:28)
[2018-06-23] MEDS: TRAMADOL HCL 50 MG TABLET GT SCH ×2 (08:28→21:02)
[2018-06-23] MEDS: ASCORBIC ACID 500 MG TABLET GT SCH (08:28)
--- NOTE | 2018-06-23 09:13 | NUR ---
RT NOTE RECEIVED PT MECHANICALLY VENTILATED VIA CUFFED TRACHEOSTOMY TUBE. CUFF INFLATED. TRACH TUBE MIDLINE AND SECURE. VENTILATOR SETTINGS PRESCRIBED. ALARMS SET PER PROTOCOL AND AUDIBLE. VENT PLUGGED IN TO RED OUTLET. AMBU BAG AT BED SIDE. NO DISTRESS NOTED AT MOMENT.
[2018-06-23] MEDS: Z GUARD REMEDY 4 OZ OINT TP SCH ×5 (09:43→21:35)
[2018-06-23] MEDS: DAKINS HALF STRENGTH (0.25%) 480 ML BOTTLE TOP SCH (09:43)
[2018-06-23] MEDS: HYDROGEN PEROXIDE 480 ML BOTTLE TP SCH ×2 (09:43→21:35)
[2018-06-23] MEDS: VITS A AND D/WHITE PET/LANOLIN 5 GM PACKET TP SCH ×2 (09:44→21:35)
--- NOTE | 2018-06-23 10:01 | NUR ---
Pt's K 5.5. Dr Patrick ordered to give Kayexalate 30 gm via GT x 1 for hyperkalemia.
[2018-06-23] MEDS ORDERED: SODIUM POLYSTYRENE SULFONATE 15 G/60 ML BOTTLE PO ONE (11:30)
[2018-06-23 14:32] VITALS: BP 125/68
[2018-06-23] MEDS: LEVOFLOXACIN 750 MG /D5W 150ML 750 MG in PREMIX 1 EA IV SCH (18:00)
[2018-06-23 18:17] VITALS: BP 118/63
[2018-06-23 19:53] VITALS: BP 130/60
--- NOTE | 2018-06-23 20:05 | NUR ---
RN NOTES Received new orders from Stephanie noted and carried out.
[2018-06-23] MEDS: SENNOSIDES 8.6 MG TABLET GT SCH (21:03)
[2018-06-23] MEDS: INSULIN DETEMIR 100 UNIT/ML CARTRIDGE SQ SCH (22:18)
[2018-06-24] MEDS ORDERED: IV D5/ 0.9% NACL 1,000 ML IV ONE
--- NOTE | 2018-06-24 | NUR ---
RN NOTES Started pt on D5NS @75ml/hr, placed on NPO as ordered.
[2018-06-24 00:15] VITALS: BP 119/70
[2018-06-24] MEDS ORDERED: IV D5W 1,000 ML IV PRN (01:00)
[2018-06-24] MEDS: IPRATROPIUM NEB FS 0.5 MG/2.5 ML AMPUL.NEB NEB SCH ×4 (01:38→20:05)
[2018-06-24] MEDS: BLOOD SUGAR DIAGNOSTIC 1 EACH STRIP IN SCH ×3 (05:21→17:27)
[2018-06-24] MEDS: METOCLOPRAMIDE HCL 10 MG/10 ML UDC GT SCH ×3 (05:21→21:39)
[2018-06-24] MEDS: INSULIN REGULAR, HUMAN 100 UNIT/ML 3 ML VIAL SQ PRN ×3 (05:22→17:29)
[2018-06-24] MEDS: VANCOMYCIN 1 GM in IV D5W 250 ML IV SCH (05:26)
[2018-06-24 06:10] VITALS: BP 144/76
[2018-06-24 07:29] LABS: BASOPHILS % (AUTO) 0.3 % (0.0-2.0); EOSINOPHILS % (AUTO) 2.8 % (0.0-6.0); HEMATOCRIT 35 % (33-45); HEMOGLOBIN 11.3 g/dL (11.5-14.8); LYMPHOCYTES # (AUTO) 1.1 /CMM (0.8-4.8); LYMPHOCYTES % (AUTO) 9.8 % (20.0-44.0); MEAN CORPUSCULAR HGB CONC 32 g/dl (31.0-36.0); MEAN CORPUSCULAR VOLUME 76 fL (82-100); MONOCYTES # (AUTO) 0.8 /CMM (0.1-1.30); MONOCYTES % (AUTO) 7.5 % (2.0-12.0); NEUTROPHILS # (AUTO) 8.7 /CMM (1.8-8.9); NEUTROPHILS % (AUTO) 79.6 % (43.0-81.0); PLATELET COUNT (AUTO) 335 /CMM (150-450); RED BLOOD CELL COUNT(AUTO) 4.59 MIL/uL (4.0-5.2); WHITE BLOOD COUNT (AUTO) 10.9 K/uL (4.3-11.0)
[2018-06-24 07:39] LABS: ALANINE AMINOTRANSFERASE 20 U/L (12-78); ALBUMIN 2.5 g/dL (3.4-5.0); ALKALINE PHOSPHATASE 129 U/L (46-116); ASPARTATE AMINOTRANSFERASE 14 U/L (15-37); BILIRUBIN,TOTAL 0.4 mg/dL (0.2-1.0); CARBON DIOXIDE 29 mmol/L (21-32); CHLORIDE 98 mmol/L (98-107); CREATININE 1.2 mg/dL (0.6-1.3); GLUCOSE 186 mg/dL (74-106); POTASSIUM 4.6 mmol/L (3.5-5.1); SODIUM SERUM 135 mmol/L (136-145); TOTAL PROTEIN, SERUM 8.7 g/dL (6.4-8.2); UREA NITROGEN, BLOOD 52 mg/dL (7-18)
[2018-06-24 07:55] VITALS: BP 116/63
[2018-06-24] MEDS ORDERED: IV D5/ 0.9% NACL 1,000 ML IV PRN (10:00)
--- NOTE | 2018-06-24 10:40 | NUR ---
Dr Carmona replaced pt's G-tube. Pt now has Bard Fr 24. No anesthesia was used in the procedure. Pt tolerated procedure well. Addendum: 06/24/18 at 1432 by MARCELLA MITCHELL RN Dr Carmona ordered to use new G-tube at 1100 am.
--- NOTE | 2018-06-24 11:00 | NUR ---
Pt's G-tube feeding Glucerna resumed.
--- NOTE | 2018-06-24 11:19 | NUR ---
RT NOTE RECEIVED PT MECHANICALLY VENTILATED VIA SHILEY 8 CUFFED TRACHEOSTOMY TUBE. CUFF INFLATED VIA UMBRELLA FRAME MAKER. TRACH TUBE MIDLINE AND SECURE. VENTILATOR SETTINGS PRESCRIBED. ALARMS SET PER PROTOCOL AND AUDIBLE. VENT PLUGGED IN TO RED OUTLET. AMBU BAG AT BED SIDE. NO DISTRESS NOTED AT MOMENT. Addendum: 06/24/18 at 1121 by JYOTHI RICHARDS RT Amended: Links added.
[2018-06-24] MEDS: MAGNESIUM OXIDE 400 MG TABLET GT SCH (11:50)
[2018-06-24] MEDS: AMLODIPINE BESYLATE 5 MG TABLET GT SCH (11:50)
[2018-06-24] MEDS: METOPROLOL TARTRATE 25 MG TABLET GT SCH ×2 (11:50→21:39)
[2018-06-24] MEDS: ACIDOPHILUS/BULGARICUS 1 EACH TAB.CHEW GT SCH ×2 (11:50→21:37)
[2018-06-24] MEDS: TRAMADOL HCL 50 MG TABLET GT SCH ×2 (11:50→21:39)
[2018-06-24] MEDS: ZINC SULFATE 220 MG CAPSULE GT SCH (11:50)
[2018-06-24] MEDS: ASCORBIC ACID 500 MG TABLET GT SCH (11:50)
[2018-06-24] MEDS: PROSTAT (PYXIS) 30 ML UDC GT SCH ×2 (11:50→17:27)
[2018-06-24] MEDS: MULTIVIT W/MINERALS 1 TAB TABLET GT SCH (11:50)
[2018-06-24] MEDS: DOCUSATE SODIUM LIQ 100 MG/10 ML UDC GT SCH (11:50)
[2018-06-24 12:00] VITALS: BP 148/78
[2018-06-24] MEDS: VITS A AND D/WHITE PET/LANOLIN 5 GM PACKET TP SCH ×2 (12:00→22:15)
[2018-06-24] MEDS: DAKINS HALF STRENGTH (0.25%) 480 ML BOTTLE TOP SCH ×2 (12:00→22:15)
[2018-06-24] MEDS: Z GUARD REMEDY 4 OZ OINT TP SCH ×4 (12:00→22:15)
[2018-06-24] MEDS: HYDROGEN PEROXIDE 480 ML BOTTLE TP SCH ×2 (12:00→22:15)
[2018-06-24 18:14] VITALS: BP 111/67
[2018-06-24] MEDS: GLUCERNA 1.2 1,000 ML BOTTLE GT PRN (18:16)
--- NOTE | 2018-06-24 18:40 | NUR ---
On monitoring for S/P GTube replacement, procedure tolerated well. no s/s of any complications noted. Gtube intact, patent, no bleeding noted. will continue to monitor.
--- NOTE | 2018-06-24 18:49 | NUR ---
Received order to DC D5 NS since GT feeding has been resumed.
[2018-06-24 20:09] VITALS: BP 122/66
[2018-06-24] MEDS: SENNOSIDES 8.6 MG TABLET GT SCH (21:39)
[2018-06-24] MEDS: INSULIN DETEMIR 100 UNIT/ML CARTRIDGE SQ SCH (21:40)
[2018-06-25] MEDS: BLOOD SUGAR DIAGNOSTIC 1 EACH STRIP IN SCH ×5 (00:02→23:13)
[2018-06-25] MEDS: INSULIN REGULAR, HUMAN 100 UNIT/ML 3 ML VIAL SQ PRN ×5 (00:04→23:15)
[2018-06-25 00:05] VITALS: BP 118/62
[2018-06-25] MEDS: IPRATROPIUM NEB FS 0.5 MG/2.5 ML AMPUL.NEB NEB SCH ×4 (01:13→19:36)
[2018-06-25] MEDS: METOCLOPRAMIDE HCL 10 MG/10 ML UDC GT SCH ×3 (05:50→20:46)
[2018-06-25 06:02] VITALS: BP 122/66
[2018-06-25 08:49] VITALS: BP 112/60
[2018-06-25] MEDS: ACIDOPHILUS/BULGARICUS 1 EACH TAB.CHEW GT SCH ×2 (09:13→20:46)
[2018-06-25] MEDS: DOCUSATE SODIUM LIQ 100 MG/10 ML UDC GT SCH (09:13)
[2018-06-25] MEDS: METOPROLOL TARTRATE 25 MG TABLET GT SCH ×2 (09:14→20:46)
[2018-06-25] MEDS: TRAMADOL HCL 50 MG TABLET GT SCH ×2 (09:14→20:47)
[2018-06-25] MEDS: PROSTAT (PYXIS) 30 ML UDC GT SCH ×2 (09:14→17:22)
[2018-06-25] MEDS: MAGNESIUM OXIDE 400 MG TABLET GT SCH (09:14)
[2018-06-25] MEDS: AMLODIPINE BESYLATE 5 MG TABLET GT SCH (09:14)
[2018-06-25] MEDS: MULTIVIT W/MINERALS 1 TAB TABLET GT SCH (09:14)
[2018-06-25] MEDS: ZINC SULFATE 220 MG CAPSULE GT SCH (09:15)
[2018-06-25] MEDS: ASCORBIC ACID 500 MG TABLET GT SCH (09:15)
[2018-06-25] MEDS: HYDROGEN PEROXIDE 480 ML BOTTLE TP SCH ×2 (09:25→20:47)
[2018-06-25] MEDS: Z GUARD REMEDY 4 OZ OINT TP SCH ×4 (09:26→20:47)
[2018-06-25] MEDS: VITS A AND D/WHITE PET/LANOLIN 5 GM PACKET TP SCH ×2 (09:26→20:48)
[2018-06-25] MEDS: MAGNESIUM HYDROXIDE 30 ML UDC GT PRN (12:34)
[2018-06-25] MEDS: GLUCERNA 1.2 1,000 ML BOTTLE GT PRN (12:34)
[2018-06-25] MEDS: LEVOFLOXACIN 750 MG /D5W 150ML 750 MG in PREMIX 1 EA IV SCH (17:38)
[2018-06-25] MEDS: BISACODYL SUPP (10 MG) 10 MG/SUPP.RECT SUPP.RECT RC PRN (18:34)
[2018-06-25 18:36] VITALS: BP 112/60
[2018-06-25 18:37] VITALS: BP 132/70
[2018-06-25 20:14] VITALS: BP 136/74
--- NOTE | 2018-06-25 20:30 | NUR ---
PATIENT RECEIVED ON MECHANICAL VENTILATION. CUFF CHECKED VIA ICT TEACHER. AMBU BAG/BACK UP TRACH @ BEDSIDE. VENT PLUGGED INTO RED OUTLET. ALARMS ON AND AUDIBLE. TX GIVEN, NO ADVERSE REACTIONS NOTED. SX DONE, MODERATE THICK WHITE SECRETIONS NOTED. PATIENT STABLE. WILL MONITOR. Addendum: 06/25/18 at 2030 by MANOLO MCDONNELL RT Amended: Links added.
[2018-06-25] MEDS: SENNOSIDES 8.6 MG TABLET GT SCH (21:41)
[2018-06-25] MEDS: INSULIN DETEMIR 100 UNIT/ML CARTRIDGE SQ SCH (21:43)
[2018-06-26 00:31] VITALS: BP 126/64
[2018-06-26] MEDS: IPRATROPIUM NEB FS 0.5 MG/2.5 ML AMPUL.NEB NEB SCH ×4 (01:22→19:46)
[2018-06-26] MEDS: VANCOMYCIN 1 GM in IV D5W 250 ML IV SCH (05:14)
[2018-06-26] MEDS: METOCLOPRAMIDE HCL 10 MG/10 ML UDC GT SCH ×3 (05:44→21:29)
[2018-06-26] MEDS: BLOOD SUGAR DIAGNOSTIC 1 EACH STRIP IN SCH ×4 (05:55→23:31)
[2018-06-26] MEDS: INSULIN REGULAR, HUMAN 100 UNIT/ML 3 ML VIAL SQ PRN ×4 (05:56→23:34)
[2018-06-26 06:15] VITALS: BP 120/68
[2018-06-26 07:46] LABS: CREATININE 1.3 mg/dL (0.6-1.3)
[2018-06-26 08:01] VITALS: BP 143/68
[2018-06-26] MEDS: VITS A AND D/WHITE PET/LANOLIN 5 GM PACKET TP SCH ×2 (09:00→21:30)
[2018-06-26] MEDS: DAKINS HALF STRENGTH (0.25%) 480 ML BOTTLE TOP SCH (09:00)
[2018-06-26] MEDS: HYDROGEN PEROXIDE 480 ML BOTTLE TP SCH ×2 (09:00→21:30)
[2018-06-26] MEDS: Z GUARD REMEDY 4 OZ OINT TP SCH ×4 (09:00→21:30)
[2018-06-26] MEDS: MAGNESIUM OXIDE 400 MG TABLET GT SCH (09:05)
[2018-06-26] MEDS: AMLODIPINE BESYLATE 5 MG TABLET GT SCH (09:05)
[2018-06-26] MEDS: PROSTAT (PYXIS) 30 ML UDC GT SCH ×2 (09:05→16:54)
[2018-06-26] MEDS: MULTIVIT W/MINERALS 1 TAB TABLET GT SCH (09:05)
[2018-06-26] MEDS: METOPROLOL TARTRATE 25 MG TABLET GT SCH ×2 (09:06→21:29)
[2018-06-26] MEDS: ZINC SULFATE 220 MG CAPSULE GT SCH (09:06)
[2018-06-26] MEDS: ASCORBIC ACID 500 MG TABLET GT SCH (09:06)
[2018-06-26] MEDS: TRAMADOL HCL 50 MG TABLET GT SCH ×2 (09:06→21:30)
[2018-06-26] MEDS: ACIDOPHILUS/BULGARICUS 1 EACH TAB.CHEW GT SCH ×2 (09:14→21:29)
[2018-06-26] MEDS: DOCUSATE SODIUM LIQ 100 MG/10 ML UDC GT SCH (09:14)
--- NOTE | 2018-06-26 09:45 | NUR ---
Faxed Vancomycin trough 36 BUN 55 Cr 1.3 to [facility]. Vancomycin was given at 0610 and blood draw was done at 0635. Spoke with Steve. She said the pharmacist will call back for orders.
--- NOTE | 2018-06-26 10:21 | NUR ---
Received order to do Vancomycin trough, BUN, Cr on 06/28/18 3286.
[2018-06-26] MEDS: GLUCERNA 1.2 1,000 ML BOTTLE GT PRN (14:09)
--- NOTE | 2018-06-26 16:32 | NUR ---
RT PATIENT RECEIVED ON [facility] VENT. AMBU BAG AND SPARE TRACH AT BEDSIDE. VENT PLUGGED INTO RED OUTLET. ALARMS ON AND FUNCTIONING PROPERLY. TX GIVEN, NO ADVERSE EFFECTS NOTED. SX'D MODERATE AMOUNTS OF THICK WHITE/YELLOW SECRETIONS. WILL CONTINUE TO MONITOR FOR ANY CHANGE OF CONDITION. Addendum: 06/26/18 at 1831 by WILBERT MILLIGAN RT Amended: Links added.
[2018-06-26 18:04] VITALS: BP_SYST 122; BP_SYST 143; BP_DIAS 59; BP_DIAS 68
--- NOTE | 2018-06-26 20:07 | NUR ---
PATIENT RECEIVED MECHANICAL VENTILATION WITH SETTINGS OF AC 15, 450 VT, 30%, +5. SUCTIONED FOR MINIMAL, THICK, WHITE-CREAM SECRETIONS. GIVEN IN-LINE TREATMENTS WITH NO ADVERSE REACTIONS. AMBU BAG AT BEDSIDE. VENT ALARM AUDIBLE AND VISIBLE. VENT PLUGGED INTO RED OUTLET. Addendum: 06/26/18 at 2008 by CAMMY MCELROY RT Amended: Links added.
[2018-06-26 20:29] VITALS: BP 142/73
[2018-06-26] MEDS: SENNOSIDES 8.6 MG TABLET GT SCH (21:30)
[2018-06-26] MEDS: INSULIN DETEMIR 100 UNIT/ML CARTRIDGE SQ SCH (21:31)
[2018-06-26] MEDS: MAGNESIUM HYDROXIDE 30 ML UDC GT PRN (23:31)
[2018-06-27 00:07] VITALS: BP 104/57
[2018-06-27] MEDS: IPRATROPIUM NEB FS 0.5 MG/2.5 ML AMPUL.NEB NEB SCH ×4 (01:14→19:28)
[2018-06-27] MEDS: BLOOD SUGAR DIAGNOSTIC 1 EACH STRIP IN SCH ×3 (05:55→17:15)
[2018-06-27] MEDS: GLUCERNA 1.2 1,000 ML BOTTLE GT PRN ×2 (05:55→19:15)
[2018-06-27] MEDS: METOCLOPRAMIDE HCL 10 MG/10 ML UDC GT SCH ×3 (05:55→20:56)
[2018-06-27] MEDS: INSULIN REGULAR, HUMAN 100 UNIT/ML 3 ML VIAL SQ PRN ×3 (05:57→17:16)
[2018-06-27 06:20] VITALS: BP 154/75
[2018-06-27 07:50] VITALS: BP 131/72
[2018-06-27] MEDS: VITS A AND D/WHITE PET/LANOLIN 5 GM PACKET TP SCH ×2 (09:00→21:28)
[2018-06-27] MEDS: DAKINS HALF STRENGTH (0.25%) 480 ML BOTTLE TOP SCH (09:00)
[2018-06-27] MEDS: Z GUARD REMEDY 4 OZ OINT TP SCH ×4 (09:00→21:28)
[2018-06-27] MEDS: HYDROGEN PEROXIDE 480 ML BOTTLE TP SCH ×2 (09:00→21:28)
[2018-06-27] MEDS: DOCUSATE SODIUM LIQ 100 MG/10 ML UDC GT SCH (09:18)
[2018-06-27] MEDS: ACIDOPHILUS/BULGARICUS 1 EACH TAB.CHEW GT SCH ×2 (09:18→20:56)
[2018-06-27] MEDS: PROSTAT (PYXIS) 30 ML UDC GT SCH ×2 (09:19→17:15)
[2018-06-27] MEDS: METOPROLOL TARTRATE 25 MG TABLET GT SCH ×2 (09:19→20:56)
[2018-06-27] MEDS: AMLODIPINE BESYLATE 5 MG TABLET GT SCH (09:19)
[2018-06-27] MEDS: MAGNESIUM OXIDE 400 MG TABLET GT SCH (09:19)
[2018-06-27] MEDS: MULTIVIT W/MINERALS 1 TAB TABLET GT SCH (09:19)
[2018-06-27] MEDS: ZINC SULFATE 220 MG CAPSULE GT SCH (09:21)
[2018-06-27] MEDS: TRAMADOL HCL 50 MG TABLET GT SCH ×2 (09:21→20:56)
[2018-06-27] MEDS: ASCORBIC ACID 500 MG TABLET GT SCH (09:21)
--- NOTE | 2018-06-27 09:21 | NUR ---
PATIENT RECEIVED MECHANICAL VENTILATION WITH SETTINGS OF AC 15, 450 VT, 30%, +5. SUCTIONED FOR MINIMAL, THICK, WHITE-CREAM SECRETIONS. GIVEN IN-LINE TREATMENTS WITH NO ADVERSE REACTIONS. AMBU BAG AT BEDSIDE. VENT ALARM AUDIBLE AND VISIBLE. VENT PLUGGED INTO RED OUTLET
--- NOTE | 2018-06-27 14:00 | NUR ---
INTERDISCIPLINARY TEAM CONFERENCE (IDT) was held today. Resident's daughter Jennifer was not able to attend today's IDT meeting. Dr. Agarwal and the interdisciplinary team reviewed the current plan of care in detail. Orders as well as treatment and medications were reviewed. 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 Patient gained 11 lbs from last month due to edema no order given by Dr. Agarwal. Patient has newly placed GT and functioning well. Patient's sacral wound closed, continue with maintenance treatment. L foot wound showing progress, wound size and depth decreased. Dr. Dudley seen patient earlier and change L foot wound dressing no s/s of infection, no drainage noted.
[2018-06-27 16:15] VITALS: BP 131/72
[2018-06-27] MEDS: LEVOFLOXACIN 750 MG /D5W 150ML 750 MG in PREMIX 1 EA IV SCH (18:42)
[2018-06-27 18:49] VITALS: BP 121/68
[2018-06-27] MEDS: MAGNESIUM HYDROXIDE 30 ML UDC GT PRN (18:50)
[2018-06-27 20:35] VITALS: BP 130/97
[2018-06-27] MEDS: SENNOSIDES 8.6 MG TABLET GT SCH (21:51)
[2018-06-27] MEDS: INSULIN DETEMIR 100 UNIT/ML CARTRIDGE SQ SCH (21:52)
[2018-06-28] MEDS: BLOOD SUGAR DIAGNOSTIC 1 EACH STRIP IN SCH ×4 (00:27→17:36)
[2018-06-28 00:29] VITALS: BP 141/77
[2018-06-28] MEDS: INSULIN REGULAR, HUMAN 100 UNIT/ML 3 ML VIAL SQ PRN ×4 (00:29→17:37)
[2018-06-28] MEDS: IPRATROPIUM NEB FS 0.5 MG/2.5 ML AMPUL.NEB NEB SCH ×4 (00:57→20:12)
[2018-06-28] MEDS: METOCLOPRAMIDE HCL 10 MG/10 ML UDC GT SCH ×3 (05:02→21:37)
[2018-06-28 06:27] LABS: CREATININE 1.4 mg/dL (0.6-1.3)
[2018-06-28 06:42] VITALS: BP 146/70
[2018-06-28] MEDS: VANCOMYCIN 1 GM in IV D5W 250 ML IV SCH (06:54)
[2018-06-28] MEDS: AMLODIPINE BESYLATE 5 MG TABLET GT SCH (09:00)
[2018-06-28] MEDS: ZINC SULFATE 220 MG CAPSULE GT SCH (09:00)
[2018-06-28] MEDS: DOCUSATE SODIUM LIQ 100 MG/10 ML UDC GT SCH (09:00)
[2018-06-28] MEDS: MAGNESIUM OXIDE 400 MG TABLET GT SCH (09:00)
[2018-06-28] MEDS: ASCORBIC ACID 500 MG TABLET GT SCH (09:00)
[2018-06-28] MEDS: METOPROLOL TARTRATE 25 MG TABLET GT SCH ×2 (09:00→21:37)
[2018-06-28] MEDS: PROSTAT (PYXIS) 30 ML UDC GT SCH ×2 (09:00→17:36)
[2018-06-28] MEDS: ACIDOPHILUS/BULGARICUS 1 EACH TAB.CHEW GT SCH ×2 (09:00→21:37)
[2018-06-28] MEDS: TRAMADOL HCL 50 MG TABLET GT SCH ×2 (09:00→21:37)
[2018-06-28] MEDS: MULTIVIT W/MINERALS 1 TAB TABLET GT SCH (09:00)
[2018-06-28] MEDS: HYDROGEN PEROXIDE 480 ML BOTTLE TP SCH ×2 (10:00→21:37)
[2018-06-28] MEDS: DAKINS HALF STRENGTH (0.25%) 480 ML BOTTLE TOP SCH (10:00)
[2018-06-28] MEDS: NEOMY SULF/BACITRAC ZN/POLY 15 GM TUBE TP SCH ×2 (10:00→21:37)
[2018-06-28] MEDS: VITS A AND D/WHITE PET/LANOLIN 5 GM PACKET TP SCH ×2 (10:00→21:38)
[2018-06-28] MEDS: Z GUARD REMEDY 4 OZ OINT TP SCH ×4 (10:00→21:38)
[2018-06-28 12:00] VITALS: BP 122/68
--- NOTE | 2018-06-28 14:06 | NUR ---
Notified resident's daughter Jennifer regarding closed blister noted in the patient's R thigh. She was given an update of what was discussed in the IDT meeting yesterday. Patient gained 11 lbs which could from edema, no order given at this time. 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 Patient's wound decreasing in size and depth. Newly placed GT is functioning well, with slight moisture in the stoma site. Kept GT site clean and dry. Daughter appreciated the update given, said that she has been busy and unable to visit this week.
[2018-06-28] MEDS: GLUCERNA 1.2 1,000 ML BOTTLE GT PRN (16:11)
--- NOTE | 2018-06-28 17:30 | NUR ---
Received a call from Ariel, [facility] IV pharmacist, stated that she received Vancomycin trough result this AM of 15. Per Ariel tpo continue same dose and do Vanco trough on Tuesday 07/04 at 0530. Order carried out.
[2018-06-28 18:08] VITALS: BP 138/71
[2018-06-28 20:14] VITALS: BP 121/71
[2018-06-28] MEDS: SENNOSIDES 8.6 MG TABLET GT SCH (21:38)
[2018-06-28] MEDS: INSULIN DETEMIR 100 UNIT/ML CARTRIDGE SQ SCH (21:39)
[2018-06-29] VITALS: BP 124/70
[2018-06-29] MEDS: IPRATROPIUM NEB FS 0.5 MG/2.5 ML AMPUL.NEB NEB SCH ×4 (00:46→19:17)
[2018-06-29] MEDS: INSULIN REGULAR, HUMAN 100 UNIT/ML 3 ML VIAL SQ PRN ×5 (01:26→23:41)
[2018-06-29] MEDS: METOCLOPRAMIDE HCL 10 MG/10 ML UDC GT SCH ×3 (05:50→20:41)
[2018-06-29 06:00] VITALS: BP 146/79
[2018-06-29] MEDS: BLOOD SUGAR DIAGNOSTIC 1 EACH STRIP IN SCH ×5 (06:07→23:41)
[2018-06-29] MEDS: CLONIDINE HCL 0.1 MG TABLET GT PRN ×2 (06:25→23:47)
[2018-06-29 07:53] VITALS: BP 127/58
[2018-06-29] MEDS: ACIDOPHILUS/BULGARICUS 1 EACH TAB.CHEW GT SCH ×2 (08:49→20:37)
[2018-06-29] MEDS: ZINC SULFATE 220 MG CAPSULE GT SCH (08:49)
[2018-06-29] MEDS: ASCORBIC ACID 500 MG TABLET GT SCH (08:49)
[2018-06-29] MEDS: PROSTAT (PYXIS) 30 ML UDC GT SCH ×2 (08:49→17:39)
[2018-06-29] MEDS: MULTIVIT W/MINERALS 1 TAB TABLET GT SCH (08:49)
[2018-06-29] MEDS: METOPROLOL TARTRATE 25 MG TABLET GT SCH ×2 (08:49→20:38)
[2018-06-29] MEDS: AMLODIPINE BESYLATE 5 MG TABLET GT SCH (08:49)
[2018-06-29] MEDS: TRAMADOL HCL 50 MG TABLET GT SCH ×2 (08:49→20:42)
[2018-06-29] MEDS: MAGNESIUM OXIDE 400 MG TABLET GT SCH (08:49)
[2018-06-29] MEDS: DOCUSATE SODIUM LIQ 100 MG/10 ML UDC GT SCH (08:49)
[2018-06-29] MEDS: DAKINS HALF STRENGTH (0.25%) 480 ML BOTTLE TOP SCH (08:50)
[2018-06-29] MEDS: Z GUARD REMEDY 4 OZ OINT TP SCH ×4 (08:50→20:42)
[2018-06-29] MEDS: VITS A AND D/WHITE PET/LANOLIN 5 GM PACKET TP SCH ×2 (08:50→20:42)
[2018-06-29] MEDS: NEOMY SULF/BACITRAC ZN/POLY 15 GM TUBE TP SCH ×2 (08:50→20:42)
[2018-06-29] MEDS: HYDROGEN PEROXIDE 480 ML BOTTLE TP SCH ×2 (08:50→20:42)
[2018-06-29] MEDS: GLUCERNA 1.2 1,000 ML BOTTLE GT PRN (12:47)
--- NOTE | 2018-06-29 13:00 | NUR ---
Seen and examined by AVERY Krishnamurthy, checked left foot wound, no new order given.
[2018-06-29 14:58] VITALS: BP 118/75
[2018-06-29 18:23] VITALS: BP 123/69
[2018-06-29] MEDS: LEVOFLOXACIN 750 MG /D5W 150ML 750 MG in PREMIX 1 EA IV SCH (18:34)
[2018-06-29 20:15] VITALS: BP 109/63
--- NOTE | 2018-06-29 21:01 | NUR ---
RT NOTE PATIENT WAS RECEIVED ON CONTINUOUS VENT SUPPORT ON NOTED VENT SETTINGS. HHN INLINE TREATMENT WAS GIVEN, NO ADVERSE REACTION NOTED ,PRN SUCTION WAS DONE. TRACH TUBE PATENT AND SECURED. ALARMS ON AND AUDIBLE. BRIDGETTE AND GEORGE ROBB AT [facility]. WILL CONTINUE TO MONITOR PATIENT Addendum: 06/29/18 at 2101 by NYA RICHARDS RT Amended: Links added.
[2018-06-29] MEDS: SENNOSIDES 8.6 MG TABLET GT SCH (21:31)
[2018-06-29] MEDS: INSULIN DETEMIR 100 UNIT/ML CARTRIDGE SQ SCH (21:32)
[2018-06-30] VITALS: BP 124/69
[2018-06-30] MEDS: IPRATROPIUM NEB FS 0.5 MG/2.5 ML AMPUL.NEB NEB SCH ×4 (01:47→19:52)
[2018-06-30] MEDS: METOCLOPRAMIDE HCL 10 MG/10 ML UDC GT SCH ×3 (05:26→20:51)
[2018-06-30] MEDS: GLUCERNA 1.2 1,000 ML BOTTLE GT PRN ×2 (05:39→18:16)
[2018-06-30] MEDS: INSULIN REGULAR, HUMAN 100 UNIT/ML 3 ML VIAL SQ PRN ×3 (05:39→17:59)
[2018-06-30] MEDS: BLOOD SUGAR DIAGNOSTIC 1 EACH STRIP IN SCH ×3 (05:39→17:57)
[2018-06-30 06:00] VITALS: BP 137/75
[2018-06-30] MEDS: VANCOMYCIN 1 GM in IV D5W 250 ML IV SCH (06:00)
[2018-06-30 06:55] LABS: BASOPHILS % (AUTO) 0.4 % (0.0-2.0); EOSINOPHILS % (AUTO) 2.4 % (0.0-6.0); HEMATOCRIT 34 % (33-45); HEMOGLOBIN 10.8 g/dL (11.5-14.8); LYMPHOCYTES # (AUTO) 1.3 /CMM (0.8-4.8); LYMPHOCYTES % (AUTO) 11.4 % (20.0-44.0); MEAN CORPUSCULAR HGB CONC 32 g/dl (31.0-36.0); MEAN CORPUSCULAR VOLUME 75 fL (82-100); MONOCYTES # (AUTO) 0.9 /CMM (0.1-1.30); MONOCYTES % (AUTO) 7.6 % (2.0-12.0); NEUTROPHILS # (AUTO) 8.9 /CMM (1.8-8.9); NEUTROPHILS % (AUTO) 78.2 % (43.0-81.0); PLATELET COUNT (AUTO) 357 /CMM (150-450); RED BLOOD CELL COUNT(AUTO) 4.52 MIL/uL (4.0-5.2); WHITE BLOOD COUNT (AUTO) 11.3 K/uL (4.3-11.0)
[2018-06-30 07:24] LABS: CALCIUM, SERUM 9.1 mg/dL (8.5-10.1); CARBON DIOXIDE 29 mmol/L (21-32); CHLORIDE 97 mmol/L (98-107); CREATININE 1.5 mg/dL (0.6-1.3); GLUCOSE 166 mg/dL (74-106); SODIUM SERUM 134 mmol/L (136-145); UREA NITROGEN, BLOOD 68 mg/dL (7-18)
[2018-06-30 08:00] VITALS: BP 131/64
[2018-06-30] MEDS: DOCUSATE SODIUM LIQ 100 MG/10 ML UDC GT SCH (08:31)
[2018-06-30] MEDS: METOPROLOL TARTRATE 25 MG TABLET GT SCH ×2 (08:31→20:51)
[2018-06-30] MEDS: MAGNESIUM OXIDE 400 MG TABLET GT SCH (08:31)
[2018-06-30] MEDS: ACIDOPHILUS/BULGARICUS 1 EACH TAB.CHEW GT SCH ×2 (08:31→20:51)
[2018-06-30] MEDS: AMLODIPINE BESYLATE 5 MG TABLET GT SCH (08:32)
[2018-06-30] MEDS: PROSTAT (PYXIS) 30 ML UDC GT SCH ×2 (08:32→17:46)
[2018-06-30] MEDS: MULTIVIT W/MINERALS 1 TAB TABLET GT SCH (08:32)
[2018-06-30] MEDS: ASCORBIC ACID 500 MG TABLET GT SCH (08:33)
[2018-06-30] MEDS: ZINC SULFATE 220 MG CAPSULE GT SCH (08:33)
[2018-06-30] MEDS: TRAMADOL HCL 50 MG TABLET GT SCH ×2 (08:33→20:52)
[2018-06-30] MEDS: Z GUARD REMEDY 4 OZ OINT TP SCH ×4 (09:00→21:36)
[2018-06-30] MEDS: NEOMY SULF/BACITRAC ZN/POLY 15 GM TUBE TP SCH ×2 (09:00→21:36)
[2018-06-30] MEDS: VITS A AND D/WHITE PET/LANOLIN 5 GM PACKET TP SCH ×2 (09:00→21:36)
[2018-06-30] MEDS: DAKINS HALF STRENGTH (0.25%) 480 ML BOTTLE TOP SCH ×2 (09:00→21:38)
[2018-06-30] MEDS: HYDROGEN PEROXIDE 480 ML BOTTLE TP SCH ×2 (09:00→21:36)
[2018-06-30 12:32] LABS: CALCIUM, SERUM 9.2 mg/dL (8.5-10.1); CARBON DIOXIDE 25 mmol/L (21-32); CHLORIDE 97 mmol/L (98-107); CREATININE 1.6 mg/dL (0.6-1.3); GLUCOSE 246 mg/dL (74-106); POTASSIUM 5.2 mmol/L (3.5-5.1); SODIUM SERUM 130 mmol/L (136-145); UREA NITROGEN, BLOOD 64 mg/dL (7-18)
--- NOTE | 2018-06-30 13:28 | NUR ---
Relayed K 5.[address] Rico. He ordered to do aldosterone and renin levels.
[2018-06-30 14:44] VITALS: BP 118/70
[2018-06-30] MEDS ORDERED: SODIUM POLYSTYRENE SULFONATE 15 G/60 ML BOTTLE PO ONE ×2 (16:00→19:00)
--- NOTE | 2018-06-30 16:01 | NUR ---
Seen by Dr Patrick. Relayed BMP result to him and informed him that Dr Rico ordered aldosterone and renin levels. Received order to give Kayexalate 30 gm GT x 1 for K 5.2.
[2018-06-30 18:40] VITALS: BP 125/73
[2018-06-30 19:50] VITALS: BP 119/57
[2018-06-30] MEDS: SENNOSIDES 8.6 MG TABLET GT SCH (21:36)
[2018-06-30] MEDS: INSULIN DETEMIR 100 UNIT/ML CARTRIDGE SQ SCH (21:37)
[2018-07-01] MEDS: BLOOD SUGAR DIAGNOSTIC 1 EACH STRIP IN SCH ×5 (00:50→23:13)
[2018-07-01] MEDS: INSULIN REGULAR, HUMAN 100 UNIT/ML 3 ML VIAL SQ PRN ×5 (01:12→23:15)
[2018-07-01 01:14] VITALS: BP 124/68
[2018-07-01] MEDS: IPRATROPIUM NEB FS 0.5 MG/2.5 ML AMPUL.NEB NEB SCH ×4 (01:37→20:23)
[2018-07-01] MEDS: METOCLOPRAMIDE HCL 10 MG/10 ML UDC GT SCH ×3 (05:40→21:02)
[2018-07-01 06:04] VITALS: BP 128/64
[2018-07-01 08:08] VITALS: BP 124/55
[2018-07-01] MEDS: METOPROLOL TARTRATE 25 MG TABLET GT SCH ×2 (09:41→21:02)
[2018-07-01] MEDS: ACIDOPHILUS/BULGARICUS 1 EACH TAB.CHEW GT SCH ×2 (09:41→21:01)
[2018-07-01] MEDS: DOCUSATE SODIUM LIQ 100 MG/10 ML UDC GT SCH (09:41)
[2018-07-01] MEDS: MAGNESIUM OXIDE 400 MG TABLET GT SCH (09:41)
[2018-07-01] MEDS: MULTIVIT W/MINERALS 1 TAB TABLET GT SCH (09:41)
[2018-07-01] MEDS: AMLODIPINE BESYLATE 5 MG TABLET GT SCH (09:41)
[2018-07-01] MEDS: PROSTAT (PYXIS) 30 ML UDC GT SCH ×2 (09:41→17:44)
[2018-07-01] MEDS: ASCORBIC ACID 500 MG TABLET GT SCH (09:41)
[2018-07-01] MEDS: Z GUARD REMEDY 4 OZ OINT TP SCH ×4 (09:42→21:37)
[2018-07-01] MEDS: ZINC SULFATE 220 MG CAPSULE GT SCH (09:42)
[2018-07-01] MEDS: NEOMY SULF/BACITRAC ZN/POLY 15 GM TUBE TP SCH ×2 (09:42→21:37)
[2018-07-01] MEDS: VITS A AND D/WHITE PET/LANOLIN 5 GM PACKET TP SCH ×2 (09:42→21:37)
[2018-07-01] MEDS: HYDROGEN PEROXIDE 480 ML BOTTLE TP SCH ×2 (09:42→21:37)
[2018-07-01 12:00] VITALS: BP 122/63
[2018-07-01] MEDS: TRAMADOL HCL 50 MG TABLET GT SCH ×2 (12:55→21:03)
--- NOTE | 2018-07-01 15:20 | NUR ---
PT REC'D TRACHED ON [facility] VENT ON AC MODE. NO RESP DISTRESS OR SOB NOTED. TRACH PATENT AND SECURED. SX'D FOR MOD AMT OF THICK YELLOW SECRETIONS. ALARMS ARE SET AND AUDIBLE. VENT PLUGGED INTO RED OUTLET. AMBU BAG BEDSIDE. WILL CONTINUE TO MONITOR. Addendum: 07/01/18 at 1520 by TALA YAO RT Amended: Links added.
[2018-07-01 18:00] VITALS: BP 137/59
[2018-07-01] MEDS: LEVOFLOXACIN 750 MG /D5W 150ML 750 MG in PREMIX 1 EA IV SCH (18:00)
[2018-07-01 20:38] VITALS: BP 130/64
[2018-07-01] MEDS: SENNOSIDES 8.6 MG TABLET GT SCH (21:03)
[2018-07-01] MEDS: INSULIN DETEMIR 100 UNIT/ML CARTRIDGE SQ SCH (21:29)
[2018-07-01] MEDS: DAKINS HALF STRENGTH (0.25%) 480 ML BOTTLE TOP SCH (21:38)
[2018-07-02 00:20] VITALS: BP 116/60
[2018-07-02] MEDS: IPRATROPIUM NEB FS 0.5 MG/2.5 ML AMPUL.NEB NEB SCH ×4 (00:44→19:58)
[2018-07-02] MEDS: METOCLOPRAMIDE HCL 10 MG/10 ML UDC GT SCH ×3 (05:46→21:21)
[2018-07-02] MEDS: BLOOD SUGAR DIAGNOSTIC 1 EACH STRIP IN SCH ×4 (05:46→23:12)
[2018-07-02] MEDS: INSULIN REGULAR, HUMAN 100 UNIT/ML 3 ML VIAL SQ PRN ×4 (05:47→23:13)
[2018-07-02] MEDS: VANCOMYCIN 1 GM in IV D5W 250 ML IV SCH (06:06)
[2018-07-02 06:30] VITALS: BP 122/65
[2018-07-02 08:00] VITALS: BP 124/65
[2018-07-02 08:11] LABS: CALCIUM, SERUM 8.6 mg/dL (8.5-10.1); CARBON DIOXIDE 29 mmol/L (21-32); CHLORIDE 98 mmol/L (98-107); CREATININE 1.3 mg/dL (0.6-1.3); GLUCOSE 191 mg/dL (74-106); POTASSIUM 4.3 mmol/L (3.5-5.1); SODIUM SERUM 136 mmol/L (136-145); UREA NITROGEN, BLOOD 55 mg/dL (7-18)
[2018-07-02] MEDS: DOCUSATE SODIUM LIQ 100 MG/10 ML UDC GT SCH (09:08)
[2018-07-02] MEDS: ACIDOPHILUS/BULGARICUS 1 EACH TAB.CHEW GT SCH ×2 (09:08→21:20)
[2018-07-02] MEDS: PROSTAT (PYXIS) 30 ML UDC GT SCH ×2 (09:09→17:36)
[2018-07-02] MEDS: TRAMADOL HCL 50 MG TABLET GT SCH ×2 (09:09→21:21)
[2018-07-02] MEDS: METOPROLOL TARTRATE 25 MG TABLET GT SCH ×2 (09:09→21:21)
[2018-07-02] MEDS: ZINC SULFATE 220 MG CAPSULE GT SCH (09:09)
[2018-07-02] MEDS: MAGNESIUM OXIDE 400 MG TABLET GT SCH (09:09)
[2018-07-02] MEDS: ASCORBIC ACID 500 MG TABLET GT SCH (09:09)
[2018-07-02] MEDS: AMLODIPINE BESYLATE 5 MG TABLET GT SCH (09:09)
[2018-07-02] MEDS: HYDROGEN PEROXIDE 480 ML BOTTLE TP SCH ×2 (09:09→21:54)
[2018-07-02] MEDS: MULTIVIT W/MINERALS 1 TAB TABLET GT SCH (09:09)
[2018-07-02] MEDS: NEOMY SULF/BACITRAC ZN/POLY 15 GM TUBE TP SCH ×2 (09:09→21:54)
[2018-07-02] MEDS: VITS A AND D/WHITE PET/LANOLIN 5 GM PACKET TP SCH ×2 (09:10→21:54)
[2018-07-02] MEDS: Z GUARD REMEDY 4 OZ OINT TP SCH ×4 (09:10→21:54)
[2018-07-02] MEDS: GLUCERNA 1.2 1,000 ML BOTTLE GT PRN (12:55)
--- NOTE | 2018-07-02 14:34 | NUR ---
Seen by Dr. Aguirre, reviewed BMP result, NNO given at this time.
[2018-07-02 17:15] VITALS: BP 124/65
[2018-07-02 18:53] VITALS: BP 122/60
--- NOTE | 2018-07-02 19:59 | NUR ---
RT Pt received trach'd and on [facility] vent w charted settings. Vent is plugged into red outlet w ambubag @ hob. Alarms are set and audible. Trach is secure and patent.. Hhn tx given and pt sx'd w no adverse reactions. No respiratory distress noted @ this time. Will continue to monitor. Addendum: 07/02/18 at 2132 by INES MCKEON RT Amended: Links added.
[2018-07-02 20:32] VITALS: BP 117/57
[2018-07-02] MEDS: SENNOSIDES 8.6 MG TABLET GT SCH (21:21)
[2018-07-02] MEDS: INSULIN DETEMIR 100 UNIT/ML CARTRIDGE SQ SCH (21:28)
[2018-07-03 00:03] VITALS: BP 116/62
[2018-07-03] MEDS: IPRATROPIUM NEB FS 0.5 MG/2.5 ML AMPUL.NEB NEB SCH ×4 (01:41→19:36)
[2018-07-03] MEDS: METOCLOPRAMIDE HCL 10 MG/10 ML UDC GT SCH ×3 (05:45→21:37)
[2018-07-03] MEDS: BLOOD SUGAR DIAGNOSTIC 1 EACH STRIP IN SCH ×4 (05:45→23:36)
[2018-07-03] MEDS: INSULIN REGULAR, HUMAN 100 UNIT/ML 3 ML VIAL SQ PRN ×4 (05:47→23:38)
[2018-07-03 06:23] VITALS: BP 120/56
[2018-07-03 08:25] VITALS: BP 134/65
[2018-07-03] MEDS: ACIDOPHILUS/BULGARICUS 1 EACH TAB.CHEW GT SCH ×2 (08:52→21:37)
[2018-07-03] MEDS: DOCUSATE SODIUM LIQ 100 MG/10 ML UDC GT SCH (08:52)
[2018-07-03] MEDS: MAGNESIUM OXIDE 400 MG TABLET GT SCH (08:52)
[2018-07-03] MEDS: MULTIVIT W/MINERALS 1 TAB TABLET GT SCH (08:52)
[2018-07-03] MEDS: PROSTAT (PYXIS) 30 ML UDC GT SCH ×2 (08:52→17:04)
[2018-07-03] MEDS: AMLODIPINE BESYLATE 5 MG TABLET GT SCH (08:52)
[2018-07-03] MEDS: METOPROLOL TARTRATE 25 MG TABLET GT SCH ×2 (08:52→21:37)
[2018-07-03] MEDS: ASCORBIC ACID 500 MG TABLET GT SCH (08:53)
[2018-07-03] MEDS: TRAMADOL HCL 50 MG TABLET GT SCH ×2 (08:53→21:37)
[2018-07-03] MEDS: ZINC SULFATE 220 MG CAPSULE GT SCH (08:53)
[2018-07-03] MEDS: DAKINS HALF STRENGTH (0.25%) 480 ML BOTTLE TOP SCH (09:00)
[2018-07-03] MEDS: NEOMY SULF/BACITRAC ZN/POLY 15 GM TUBE TP SCH ×2 (09:00→21:37)
[2018-07-03] MEDS: Z GUARD REMEDY 4 OZ OINT TP SCH ×4 (09:00→21:38)
[2018-07-03] MEDS: VITS A AND D/WHITE PET/LANOLIN 5 GM PACKET TP SCH ×2 (09:00→21:38)
[2018-07-03] MEDS: HYDROGEN PEROXIDE 480 ML BOTTLE TP SCH ×2 (09:00→21:37)
[2018-07-03 15:10] LABS: RENIN, PLASMA 0.186 ng/mL/hr (0.167-5.380)
[2018-07-03] MEDS: GLUCERNA 1.2 1,000 ML BOTTLE GT PRN (17:49)
[2018-07-03] MEDS: MAGNESIUM HYDROXIDE 30 ML UDC GT PRN (17:49)
[2018-07-03] MEDS: BISACODYL SUPP (10 MG) 10 MG/SUPP.RECT SUPP.RECT RC PRN (17:49)
[2018-07-03 17:59] VITALS: BP 134/65
[2018-07-03] MEDS: LEVOFLOXACIN 750 MG /D5W 150ML 750 MG in PREMIX 1 EA IV SCH (18:00)
[2018-07-03 18:46] VITALS: BP 128/62
[2018-07-03 19:35] VITALS: BP 113/73
[2018-07-03] MEDS: SENNOSIDES 8.6 MG TABLET GT SCH (21:38)
[2018-07-03] MEDS: INSULIN DETEMIR 100 UNIT/ML CARTRIDGE SQ SCH (21:38)
[2018-07-03] MEDS: CLONIDINE HCL 0.1 MG TABLET GT PRN (23:36)
[2018-07-04] VITALS: BP 142/77
[2018-07-04] MEDS: IPRATROPIUM NEB FS 0.5 MG/2.5 ML AMPUL.NEB NEB SCH ×4 (01:12→19:41)
[2018-07-04] MEDS: CLONIDINE HCL 0.1 MG TABLET GT PRN (05:40)
[2018-07-04] MEDS: METOCLOPRAMIDE HCL 10 MG/10 ML UDC GT SCH ×3 (05:51→20:30)
[2018-07-04] MEDS: BLOOD SUGAR DIAGNOSTIC 1 EACH STRIP IN SCH ×4 (05:51→23:31)
[2018-07-04] MEDS: INSULIN REGULAR, HUMAN 100 UNIT/ML 3 ML VIAL SQ PRN ×4 (05:52→23:33)
[2018-07-04 06:00] VITALS: BP 112/81
[2018-07-04] MEDS: VANCOMYCIN 1 GM in IV D5W 250 ML IV SCH (06:32)
--- NOTE | 2018-07-04 07:49 | NUR ---
PT RECEIVED ON [facility] VENT ON THE FOLLOWING NOTED SETTINGS. NO RESP DISTRESS OR SOB NOTED AT THIS TIME. PT SX'D. BREATHING TX GIVEN, NO ADVERSE REACTIONS NOTED. SPARE TRACH AND AMBU BAG ARE AT BEDSIDE. WILL CONT TO MONITOR PT. VENT IS PLUGGED INTO RED OUTLET AND ALARMS ARE ON AND AUDIBLE. Addendum: 07/04/18 at 0750 by MEI SANTANA RT Amended: Links added.
[2018-07-04 08:00] VITALS: BP 147/76
[2018-07-04] MEDS: DAKINS HALF STRENGTH (0.25%) 480 ML BOTTLE TOP SCH (09:00)
[2018-07-04] MEDS: NEOMY SULF/BACITRAC ZN/POLY 15 GM TUBE TP SCH ×2 (09:00→21:20)
[2018-07-04] MEDS: Z GUARD REMEDY 4 OZ OINT TP SCH ×4 (09:00→21:20)
[2018-07-04] MEDS: HYDROGEN PEROXIDE 480 ML BOTTLE TP SCH ×2 (09:00→21:20)
[2018-07-04] MEDS: VITS A AND D/WHITE PET/LANOLIN 5 GM PACKET TP SCH ×2 (09:00→21:20)
[2018-07-04] MEDS: METOPROLOL TARTRATE 25 MG TABLET GT SCH ×2 (09:41→20:30)
[2018-07-04] MEDS: ASCORBIC ACID 500 MG TABLET GT SCH (09:41)
[2018-07-04] MEDS: ZINC SULFATE 220 MG CAPSULE GT SCH (09:41)
[2018-07-04] MEDS: ACIDOPHILUS/BULGARICUS 1 EACH TAB.CHEW GT SCH ×2 (09:41→20:30)
[2018-07-04] MEDS: MULTIVIT W/MINERALS 1 TAB TABLET GT SCH (09:41)
[2018-07-04] MEDS: TRAMADOL HCL 50 MG TABLET GT SCH ×2 (09:41→20:31)
[2018-07-04] MEDS: AMLODIPINE BESYLATE 5 MG TABLET GT SCH (09:41)
[2018-07-04] MEDS: DOCUSATE SODIUM LIQ 100 MG/10 ML UDC GT SCH (09:41)
[2018-07-04] MEDS: MAGNESIUM OXIDE 400 MG TABLET GT SCH (09:41)
[2018-07-04] MEDS: PROSTAT (PYXIS) 30 ML UDC GT SCH ×2 (09:41→17:33)
[2018-07-04 16:37] VITALS: BP 147/76
[2018-07-04 19:13] VITALS: BP 132/80
[2018-07-04 19:45] VITALS: BP 147/72
[2018-07-04] MEDS: SENNOSIDES 8.6 MG TABLET GT SCH (21:20)
[2018-07-04] MEDS: INSULIN DETEMIR 100 UNIT/ML CARTRIDGE SQ SCH (21:30)
[2018-07-05 00:10] VITALS: BP 148/69
[2018-07-05] MEDS: IPRATROPIUM NEB FS 0.5 MG/2.5 ML AMPUL.NEB NEB SCH ×4 (02:16→19:32)
[2018-07-05] MEDS: BLOOD SUGAR DIAGNOSTIC 1 EACH STRIP IN SCH ×4 (05:39→23:32)
[2018-07-05] MEDS: METOCLOPRAMIDE HCL 10 MG/10 ML UDC GT SCH ×3 (05:39→20:59)
[2018-07-05] MEDS: INSULIN REGULAR, HUMAN 100 UNIT/ML 3 ML VIAL SQ PRN ×4 (05:40→23:33)
[2018-07-05] MEDS: GLUCERNA 1.2 1,000 ML BOTTLE GT PRN ×2 (06:08→23:00)
[2018-07-05 06:09] VITALS: BP 163/84
[2018-07-05] MEDS: CLONIDINE HCL 0.1 MG TABLET GT PRN ×2 (06:09→23:34)
[2018-07-05 08:11] VITALS: BP 123/63
[2018-07-05] MEDS: DOCUSATE SODIUM LIQ 100 MG/10 ML UDC GT SCH (08:31)
[2018-07-05] MEDS: ACIDOPHILUS/BULGARICUS 1 EACH TAB.CHEW GT SCH ×2 (08:31→20:59)
[2018-07-05] MEDS: MAGNESIUM OXIDE 400 MG TABLET GT SCH (08:32)
[2018-07-05] MEDS: AMLODIPINE BESYLATE 5 MG TABLET GT SCH (08:32)
[2018-07-05] MEDS: METOPROLOL TARTRATE 25 MG TABLET GT SCH ×2 (08:32→20:59)
[2018-07-05] MEDS: MULTIVIT W/MINERALS 1 TAB TABLET GT SCH (08:32)
[2018-07-05] MEDS: PROSTAT (PYXIS) 30 ML UDC GT SCH ×2 (08:32→17:58)
[2018-07-05] MEDS: TRAMADOL HCL 50 MG TABLET GT SCH ×2 (08:33→21:00)
[2018-07-05] MEDS: ASCORBIC ACID 500 MG TABLET GT SCH (08:33)
[2018-07-05] MEDS: ZINC SULFATE 220 MG CAPSULE GT SCH (08:33)
[2018-07-05] MEDS: HYDROGEN PEROXIDE 480 ML BOTTLE TP SCH ×2 (09:13→21:00)
[2018-07-05] MEDS: DAKINS HALF STRENGTH (0.25%) 480 ML BOTTLE TOP SCH (09:33)
[2018-07-05] MEDS: Z GUARD REMEDY 4 OZ OINT TP SCH ×4 (09:33→21:00)
[2018-07-05] MEDS: VITS A AND D/WHITE PET/LANOLIN 5 GM PACKET TP SCH ×2 (09:33→21:00)
[2018-07-05] MEDS: NEOMY SULF/BACITRAC ZN/POLY 15 GM TUBE TP SCH ×2 (09:33→21:00)
[2018-07-05 12:00] VITALS: BP 126/75
[2018-07-05 18:00] VITALS: BP 129/62
[2018-07-05] MEDS: LEVOFLOXACIN 750 MG /D5W 150ML 750 MG in PREMIX 1 EA IV SCH (18:06)
[2018-07-05 20:00] VITALS: BP 119/68
[2018-07-05] MEDS: SENNOSIDES 8.6 MG TABLET GT SCH (21:00)
[2018-07-05] MEDS: INSULIN DETEMIR 100 UNIT/ML CARTRIDGE SQ SCH (21:14)
[2018-07-06] VITALS: BP 127/70
[2018-07-06] MEDS: IPRATROPIUM NEB FS 0.5 MG/2.5 ML AMPUL.NEB NEB SCH ×4 (01:26→19:37)
[2018-07-06] MEDS: METOCLOPRAMIDE HCL 10 MG/10 ML UDC GT SCH ×3 (05:00→20:29)
[2018-07-06] MEDS: VANCOMYCIN 1 GM in IV D5W 250 ML IV SCH (05:35)
[2018-07-06 06:00] VITALS: BP 133/78
[2018-07-06] MEDS: BLOOD SUGAR DIAGNOSTIC 1 EACH STRIP IN SCH ×3 (06:14→17:37)
[2018-07-06] MEDS: INSULIN REGULAR, HUMAN 100 UNIT/ML 3 ML VIAL SQ PRN ×3 (06:14→17:41)
[2018-07-06 08:11] VITALS: BP 135/80
[2018-07-06] MEDS: MULTIVIT W/MINERALS 1 TAB TABLET GT SCH (09:00)
[2018-07-06] MEDS: ACIDOPHILUS/BULGARICUS 1 EACH TAB.CHEW GT SCH ×2 (09:39→20:27)
[2018-07-06] MEDS: DOCUSATE SODIUM LIQ 100 MG/10 ML UDC GT SCH (09:39)
[2018-07-06] MEDS: METOPROLOL TARTRATE 25 MG TABLET GT SCH ×2 (09:40→20:28)
[2018-07-06] MEDS: ASCORBIC ACID 500 MG TABLET GT SCH (09:41)
[2018-07-06] MEDS: ZINC SULFATE 220 MG CAPSULE GT SCH (09:42)
[2018-07-06] MEDS: VITS A AND D/WHITE PET/LANOLIN 5 GM PACKET TP SCH ×2 (09:42→20:31)
[2018-07-06] MEDS: Z GUARD REMEDY 4 OZ OINT TP SCH ×4 (09:42→20:30)
[2018-07-06] MEDS: NEOMY SULF/BACITRAC ZN/POLY 15 GM TUBE TP SCH ×2 (09:42→20:30)
[2018-07-06] MEDS: HYDROGEN PEROXIDE 480 ML BOTTLE TP SCH ×2 (09:42→20:30)
[2018-07-06] MEDS: DAKINS HALF STRENGTH (0.25%) 480 ML BOTTLE TOP SCH (09:42)
[2018-07-06] MEDS: TRAMADOL HCL 50 MG TABLET GT SCH ×2 (09:43→20:30)
[2018-07-06] MEDS: PROSTAT (PYXIS) 30 ML UDC GT SCH ×2 (09:46→17:44)
[2018-07-06] MEDS: AMLODIPINE BESYLATE 5 MG TABLET GT SCH (09:46)
[2018-07-06] MEDS: MAGNESIUM OXIDE 400 MG TABLET GT SCH (09:53)
[2018-07-06 13:40] VITALS: BP 135/80
[2018-07-06 18:19] VITALS: BP 132/85
[2018-07-06 20:53] VITALS: BP 128/72
--- NOTE | 2018-07-06 21:00 | NUR ---
RN NOTES Seen by Nancy Hoover NP, NNO.
[2018-07-06] MEDS: SENNOSIDES 8.6 MG TABLET GT SCH (21:53)
[2018-07-06] MEDS: INSULIN DETEMIR 100 UNIT/ML CARTRIDGE SQ SCH (21:54)
[2018-07-07 00:17] VITALS: BP 130/67
[2018-07-07] MEDS: BLOOD SUGAR DIAGNOSTIC 1 EACH STRIP IN SCH ×4 (00:19→18:26)
[2018-07-07] MEDS: INSULIN REGULAR, HUMAN 100 UNIT/ML 3 ML VIAL SQ PRN ×4 (00:21→18:28)
[2018-07-07] MEDS: IPRATROPIUM NEB FS 0.5 MG/2.5 ML AMPUL.NEB NEB SCH ×4 (01:39→19:14)
[2018-07-07] MEDS: METOCLOPRAMIDE HCL 10 MG/10 ML UDC GT SCH ×3 (05:36→20:40)
[2018-07-07 06:30] VITALS: BP 147/71
[2018-07-07 07:41] LABS: BASOPHILS % (AUTO) 0.5 % (0.0-2.0); EOSINOPHILS % (AUTO) 1.3 % (0.0-6.0); HEMATOCRIT 35 % (33-45); HEMOGLOBIN 11.4 g/dL (11.5-14.8); LYMPHOCYTES # (AUTO) 1.6 /CMM (0.8-4.8); LYMPHOCYTES % (AUTO) 15.2 % (20.0-44.0); MEAN CORPUSCULAR HGB CONC 32 g/dl (31.0-36.0); MEAN CORPUSCULAR VOLUME 76 fL (82-100); MONOCYTES % (AUTO) 8.9 % (2.0-12.0); NEUTROPHILS % (AUTO) 74.1 % (43.0-81.0); PLATELET COUNT (AUTO) 323 /CMM (150-450); RED BLOOD CELL COUNT(AUTO) 4.68 MIL/uL (4.0-5.2); WHITE BLOOD COUNT (AUTO) 10.7 K/uL (4.3-11.0)
[2018-07-07 07:51] LABS: CALCIUM, SERUM 9.4 mg/dL (8.5-10.1); CARBON DIOXIDE 27 mmol/L (21-32); CHLORIDE 100 mmol/L (98-107); CREATININE 1.4 mg/dL (0.6-1.3); GLUCOSE 144 mg/dL (74-106); POTASSIUM 4.8 mmol/L (3.5-5.1); SODIUM SERUM 136 mmol/L (136-145); UREA NITROGEN, BLOOD 65 mg/dL (7-18)
[2018-07-07 08:12] VITALS: BP 151/71
[2018-07-07] MEDS: ACIDOPHILUS/BULGARICUS 1 EACH TAB.CHEW GT SCH ×2 (08:46→20:39)
[2018-07-07] MEDS: DOCUSATE SODIUM LIQ 100 MG/10 ML UDC GT SCH (08:46)
[2018-07-07] MEDS: METOPROLOL TARTRATE 25 MG TABLET GT SCH ×2 (08:47→20:40)
[2018-07-07] MEDS: AMLODIPINE BESYLATE 5 MG TABLET GT SCH (08:47)
[2018-07-07] MEDS: ZINC SULFATE 220 MG CAPSULE GT SCH (08:47)
[2018-07-07] MEDS: TRAMADOL HCL 50 MG TABLET GT SCH ×2 (08:47→20:41)
[2018-07-07] MEDS: ASCORBIC ACID 500 MG TABLET GT SCH (08:47)
[2018-07-07] MEDS: MULTIVIT W/MINERALS 1 TAB TABLET GT SCH (08:47)
[2018-07-07] MEDS: PROSTAT (PYXIS) 30 ML UDC GT SCH ×2 (08:47→17:00)
[2018-07-07] MEDS: MAGNESIUM OXIDE 400 MG TABLET GT SCH (08:51)
[2018-07-07] MEDS: VITS A AND D/WHITE PET/LANOLIN 5 GM PACKET TP SCH ×2 (09:00→20:41)
[2018-07-07] MEDS: DAKINS HALF STRENGTH (0.25%) 480 ML BOTTLE TOP SCH (09:00)
[2018-07-07] MEDS: Z GUARD REMEDY 4 OZ OINT TP SCH ×4 (09:00→20:41)
[2018-07-07] MEDS: HYDROGEN PEROXIDE 480 ML BOTTLE TP SCH ×2 (09:00→20:41)
[2018-07-07] MEDS: NEOMY SULF/BACITRAC ZN/POLY 15 GM TUBE TP SCH ×2 (09:00→20:41)
[2018-07-07] MEDS: GLUCERNA 1.2 1,000 ML BOTTLE GT PRN (12:12)
[2018-07-07 12:57] VITALS: BP 144/79
[2018-07-07] MEDS: LEVOFLOXACIN 750 MG /D5W 150ML 750 MG in PREMIX 1 EA IV SCH (18:52)
[2018-07-07 19:05] VITALS: BP 123/79
[2018-07-07 20:15] VITALS: BP 131/78
[2018-07-07] MEDS: INSULIN DETEMIR 100 UNIT/ML CARTRIDGE SQ SCH (22:00)
[2018-07-07] MEDS: SENNOSIDES 8.6 MG TABLET GT SCH (22:24)
[2018-07-08 00:14] VITALS: BP 126/63
[2018-07-08] MEDS: INSULIN REGULAR, HUMAN 100 UNIT/ML 3 ML VIAL SQ PRN ×4 (00:18→18:11)
[2018-07-08] MEDS: BLOOD SUGAR DIAGNOSTIC 1 EACH STRIP IN SCH ×4 (00:19→18:10)
[2018-07-08] MEDS: IPRATROPIUM NEB FS 0.5 MG/2.5 ML AMPUL.NEB NEB SCH ×4 (01:37→19:24)
[2018-07-08] MEDS: METOCLOPRAMIDE HCL 10 MG/10 ML UDC GT SCH ×3 (05:43→20:26)
[2018-07-08] MEDS: GLUCERNA 1.2 1,000 ML BOTTLE GT PRN ×2 (05:46→18:56)
[2018-07-08] MEDS: VANCOMYCIN 1 GM in IV D5W 250 ML IV SCH (06:00)
[2018-07-08 06:29] VITALS: BP 138/74
[2018-07-08 08:03] VITALS: BP 128/75
--- NOTE | 2018-07-08 08:41 | NUR ---
RT Pt rec'd trach'd and on [facility] vent w charted settings. No respiratory distress noted at this time. Vent is plugged into red outlet with BVM by hob. Alarms are set and audible. Trach is secure and patent. Hhn tx given and pt sx'd w no adverse reactions. Will continue to monitor. Addendum: 07/08/18 at 0842 by FLORINDA TSE RT Amended: Links added.
[2018-07-08] MEDS: HYDROGEN PEROXIDE 480 ML BOTTLE TP SCH ×2 (09:00→20:26)
[2018-07-08] MEDS: VITS A AND D/WHITE PET/LANOLIN 5 GM PACKET TP SCH ×2 (09:00→20:27)
[2018-07-08] MEDS: NEOMY SULF/BACITRAC ZN/POLY 15 GM TUBE TP SCH ×2 (09:00→20:27)
[2018-07-08] MEDS: Z GUARD REMEDY 4 OZ OINT TP SCH ×4 (09:00→20:27)
[2018-07-08] MEDS: DAKINS HALF STRENGTH (0.25%) 480 ML BOTTLE TOP SCH (09:00)
[2018-07-08] MEDS: DOCUSATE SODIUM LIQ 100 MG/10 ML UDC GT SCH (09:13)
[2018-07-08] MEDS: ACIDOPHILUS/BULGARICUS 1 EACH TAB.CHEW GT SCH ×2 (09:15→20:25)
[2018-07-08] MEDS: MAGNESIUM OXIDE 400 MG TABLET GT SCH (09:15)
[2018-07-08] MEDS: METOPROLOL TARTRATE 25 MG TABLET GT SCH ×2 (09:15→20:26)
[2018-07-08] MEDS: TRAMADOL HCL 50 MG TABLET GT SCH ×2 (09:16→20:26)
[2018-07-08] MEDS: ZINC SULFATE 220 MG CAPSULE GT SCH (09:16)
[2018-07-08] MEDS: PROSTAT (PYXIS) 30 ML UDC GT SCH ×2 (09:16→17:58)
[2018-07-08] MEDS: MULTIVIT W/MINERALS 1 TAB TABLET GT SCH (09:16)
[2018-07-08] MEDS: ASCORBIC ACID 500 MG TABLET GT SCH (09:16)
[2018-07-08] MEDS: AMLODIPINE BESYLATE 5 MG TABLET GT SCH (09:16)
[2018-07-08 12:00] VITALS: BP 130/77
[2018-07-08 18:21] VITALS: BP 125/79
[2018-07-08 20:05] VITALS: BP 124/73
[2018-07-08] MEDS: SENNOSIDES 8.6 MG TABLET GT SCH (22:54)
[2018-07-08] MEDS: INSULIN DETEMIR 100 UNIT/ML CARTRIDGE SQ SCH (22:55)
[2018-07-09] VITALS (7 sets, daily range): BP systolic 125–150; BP diastolic 60–79
[2018-07-09] MEDS: BLOOD SUGAR DIAGNOSTIC 1 EACH STRIP IN SCH ×4 (00:28→17:05)
[2018-07-09] MEDS: INSULIN REGULAR, HUMAN 100 UNIT/ML 3 ML VIAL SQ PRN ×4 (00:29→17:09)
[2018-07-09] MEDS: IPRATROPIUM NEB FS 0.5 MG/2.5 ML AMPUL.NEB NEB SCH ×4 (01:11→19:33)
[2018-07-09] MEDS: METOCLOPRAMIDE HCL 10 MG/10 ML UDC GT SCH ×3 (05:35→20:18)
--- NOTE | 2018-07-09 07:26 | NUR ---
RT Pt received trach on the vent with noted settings. Pt is awake but does not follow commands. Vent alarms are set and audible with BVM by bedside. BOAT BUILDER cuff pressure noted. Vent is plugged into red outlet. No respiratory distress noted at this time. Addendum: 07/09/18 at 1051 by ZAK SUAREZ RT Amended: Links added.
[2018-07-09] MEDS: ACIDOPHILUS/BULGARICUS 1 EACH TAB.CHEW GT SCH ×2 (09:00→20:17)
[2018-07-09] MEDS: ZINC SULFATE 220 MG CAPSULE GT SCH (09:00)
[2018-07-09] MEDS: DOCUSATE SODIUM LIQ 100 MG/10 ML UDC GT SCH (09:00)
[2018-07-09] MEDS: ASCORBIC ACID 500 MG TABLET GT SCH (09:00)
[2018-07-09] MEDS: NEOMY SULF/BACITRAC ZN/POLY 15 GM TUBE TP SCH ×2 (09:00→20:19)
[2018-07-09] MEDS: METOPROLOL TARTRATE 25 MG TABLET GT SCH ×2 (09:00→20:18)
[2018-07-09] MEDS: HYDROGEN PEROXIDE 480 ML BOTTLE TP SCH ×2 (09:00→20:19)
[2018-07-09] MEDS: TRAMADOL HCL 50 MG TABLET GT SCH ×2 (09:00→20:19)
[2018-07-09] MEDS: Z GUARD REMEDY 4 OZ OINT TP SCH ×4 (09:00→20:19)
[2018-07-09] MEDS: MAGNESIUM OXIDE 400 MG TABLET GT SCH (09:00)
[2018-07-09] MEDS: DAKINS HALF STRENGTH (0.25%) 480 ML BOTTLE TOP SCH (09:00)
[2018-07-09] MEDS: PROSTAT (PYXIS) 30 ML UDC GT SCH ×2 (09:00→16:55)
[2018-07-09] MEDS: AMLODIPINE BESYLATE 5 MG TABLET GT SCH (09:00)
[2018-07-09] MEDS: VITS A AND D/WHITE PET/LANOLIN 5 GM PACKET TP SCH ×2 (09:00→20:19)
[2018-07-09] MEDS: MULTIVIT W/MINERALS 1 TAB TABLET GT SCH (09:00)
[2018-07-09] MEDS: LEVOFLOXACIN 750 MG /D5W 150ML 750 MG in PREMIX 1 EA IV SCH (18:27)
[2018-07-09] MEDS: SENNOSIDES 8.6 MG TABLET GT SCH (21:51)
[2018-07-09] MEDS: INSULIN DETEMIR 100 UNIT/ML CARTRIDGE SQ SCH (21:52)
[2018-07-10] MEDS: BLOOD SUGAR DIAGNOSTIC 1 EACH STRIP IN SCH ×4 (00:13→18:10)
[2018-07-10] MEDS: INSULIN REGULAR, HUMAN 100 UNIT/ML 3 ML VIAL SQ PRN ×4 (00:15→18:11)
[2018-07-10 00:30] VITALS: BP 112/64
[2018-07-10] MEDS: IPRATROPIUM NEB FS 0.5 MG/2.5 ML AMPUL.NEB NEB SCH ×4 (01:54→19:45)
--- NOTE | 2018-07-10 04:46 | NUR ---
RT Pt remains on [facility] vent t/o the night. svn given inline. Addendum: 07/10/18 at 0446 by RENEE BEE RT Amended: Links added.
[2018-07-10] MEDS: GLUCERNA 1.2 1,000 ML BOTTLE GT PRN ×2 (05:44→22:20)
[2018-07-10] MEDS: METOCLOPRAMIDE HCL 10 MG/10 ML UDC GT SCH ×3 (05:45→21:34)
[2018-07-10 06:04] VITALS: BP 117/64
[2018-07-10] MEDS: VANCOMYCIN 1 GM in IV D5W 250 ML IV SCH (06:19)
[2018-07-10 07:46] VITALS: BP 151/76
--- NOTE | 2018-07-10 08:15 | NUR ---
RT Pt received trach on the vent with noted settings. Pt is awake but does not follow commands. Vent alarms are set and audible with BVM by bedside. MEDICAL FIELD REPRESENTATIVE cuff pressure noted. Vent is plugged into red outlet. No respiratory distress noted at this time.
[2018-07-10] MEDS: DOCUSATE SODIUM LIQ 100 MG/10 ML UDC GT SCH (08:24)
[2018-07-10] MEDS: ACIDOPHILUS/BULGARICUS 1 EACH TAB.CHEW GT SCH ×2 (08:24→21:34)
[2018-07-10] MEDS: MAGNESIUM OXIDE 400 MG TABLET GT SCH (08:25)
[2018-07-10] MEDS: AMLODIPINE BESYLATE 5 MG TABLET GT SCH (08:25)
[2018-07-10] MEDS: METOPROLOL TARTRATE 25 MG TABLET GT SCH ×2 (08:25→21:34)
[2018-07-10] MEDS: ZINC SULFATE 220 MG CAPSULE GT SCH (08:25)
[2018-07-10] MEDS: ASCORBIC ACID 500 MG TABLET GT SCH (08:25)
[2018-07-10] MEDS: MULTIVIT W/MINERALS 1 TAB TABLET GT SCH (08:25)
[2018-07-10] MEDS: PROSTAT (PYXIS) 30 ML UDC GT SCH ×2 (08:25→17:00)
[2018-07-10] MEDS: TRAMADOL HCL 50 MG TABLET GT SCH ×2 (08:25→21:35)
[2018-07-10] MEDS: VITS A AND D/WHITE PET/LANOLIN 5 GM PACKET TP SCH ×2 (09:00→21:35)
[2018-07-10] MEDS: Z GUARD REMEDY 4 OZ OINT TP SCH ×4 (09:00→21:35)
[2018-07-10] MEDS: DAKINS HALF STRENGTH (0.25%) 480 ML BOTTLE TOP SCH (09:00)
[2018-07-10] MEDS: NEOMY SULF/BACITRAC ZN/POLY 15 GM TUBE TP SCH ×2 (09:00→21:35)
[2018-07-10] MEDS: HYDROGEN PEROXIDE 480 ML BOTTLE TP SCH ×2 (09:00→21:35)
[2018-07-10 12:00] VITALS: BP 147/73
[2018-07-10 19:07] VITALS: BP 134/83
[2018-07-10 20:03] VITALS: BP 123/66
--- NOTE | 2018-07-10 21:16 | NUR ---
PATIENT RECEIVED TRACHED ON MECHANICAL VENTILATION. CUFF CHECKED VIA FIXED WING AIRCRAFT FLIGHT ENGINEER. AMBU BAG/BACK UP TRACH @ BEDSIDE. VENT PLUGGED INTO RED OUTLET. TX GIVEN, NO ADVERSE REACTIONS NOTED. SX DONE, MODERATE THICK WHITE SECRETIONS NOTED. ALARMS ON AND AUDIBLE. NO DISTRESS NOTED. WILL MONITOR T/O SHIFT. Addendum: 07/10/18 at 2116 by MANOLO MCDONNELL RT Amended: Links added.
[2018-07-10] MEDS: INSULIN DETEMIR 100 UNIT/ML CARTRIDGE SQ SCH (21:36)
[2018-07-10] MEDS: SENNOSIDES 8.6 MG TABLET GT SCH (21:36)
[2018-07-11] VITALS: BP 139/76
[2018-07-11] MEDS: BLOOD SUGAR DIAGNOSTIC 1 EACH STRIP IN SCH ×4 (00:20→17:17)
[2018-07-11] MEDS: INSULIN REGULAR, HUMAN 100 UNIT/ML 3 ML VIAL SQ PRN ×4 (00:21→17:22)
[2018-07-11] MEDS: CLONIDINE HCL 0.1 MG TABLET GT PRN ×2 (00:49→05:45)
[2018-07-11] MEDS: IPRATROPIUM NEB FS 0.5 MG/2.5 ML AMPUL.NEB NEB SCH ×4 (01:20→19:30)
[2018-07-11] MEDS: METOCLOPRAMIDE HCL 10 MG/10 ML UDC GT SCH ×3 (05:41→20:31)
[2018-07-11 06:00] VITALS: BP 144/77
[2018-07-11] MEDS: ACIDOPHILUS/BULGARICUS 1 EACH TAB.CHEW GT SCH ×2 (09:13→20:30)
[2018-07-11] MEDS: DOCUSATE SODIUM LIQ 100 MG/10 ML UDC GT SCH (09:13)
[2018-07-11] MEDS: MAGNESIUM OXIDE 400 MG TABLET GT SCH (09:18)
[2018-07-11] MEDS: METOPROLOL TARTRATE 25 MG TABLET GT SCH ×2 (09:18→20:30)
[2018-07-11] MEDS: MULTIVIT W/MINERALS 1 TAB TABLET GT SCH (09:19)
[2018-07-11] MEDS: PROSTAT (PYXIS) 30 ML UDC GT SCH ×2 (09:19→17:17)
[2018-07-11] MEDS: AMLODIPINE BESYLATE 5 MG TABLET GT SCH (09:19)
[2018-07-11] MEDS: ASCORBIC ACID 500 MG TABLET GT SCH (09:20)
[2018-07-11] MEDS: ZINC SULFATE 220 MG CAPSULE GT SCH (09:20)
[2018-07-11] MEDS: TRAMADOL HCL 50 MG TABLET GT SCH ×2 (09:20→20:32)
[2018-07-11] MEDS: NEOMY SULF/BACITRAC ZN/POLY 15 GM TUBE TP SCH ×2 (09:21→20:32)
[2018-07-11] MEDS: DAKINS HALF STRENGTH (0.25%) 480 ML BOTTLE TOP SCH (09:21)
[2018-07-11] MEDS: HYDROGEN PEROXIDE 480 ML BOTTLE TP SCH ×2 (09:21→20:32)
[2018-07-11] MEDS: Z GUARD REMEDY 4 OZ OINT TP SCH ×4 (09:21→20:32)
[2018-07-11] MEDS: VITS A AND D/WHITE PET/LANOLIN 5 GM PACKET TP SCH ×2 (09:23→20:32)
[2018-07-11 11:32] VITALS: BP 130/68
[2018-07-11 12:00] VITALS: BP 131/70
--- NOTE | 2018-07-11 13:37 | NUR ---
Dr. Tan seen wound photo taken on 07/09/18, with order to apply betadine around the periwound which is denuded and continue with Daikin solution to the wound until it closes. Order carried out.
[2018-07-11] MEDS: LEVOFLOXACIN 750 MG /D5W 150ML 750 MG in PREMIX 1 EA IV SCH (18:05)
[2018-07-11 18:28] VITALS: BP 140/65
[2018-07-11 20:15] VITALS: BP 135/67
[2018-07-11] MEDS: SENNOSIDES 8.6 MG TABLET GT SCH (21:42)
[2018-07-11] MEDS: INSULIN DETEMIR 100 UNIT/ML CARTRIDGE SQ SCH (21:47)
[2018-07-12] MEDS: BLOOD SUGAR DIAGNOSTIC 1 EACH STRIP IN SCH ×5 (00:06→23:32)
[2018-07-12] MEDS: GLUCERNA 1.2 1,000 ML BOTTLE GT PRN (00:06)
[2018-07-12] MEDS: INSULIN REGULAR, HUMAN 100 UNIT/ML 3 ML VIAL SQ PRN ×5 (00:07→23:33)
[2018-07-12 01:15] VITALS: BP 127/55
[2018-07-12] MEDS: IPRATROPIUM NEB FS 0.5 MG/2.5 ML AMPUL.NEB NEB SCH ×4 (01:26→19:38)
[2018-07-12] MEDS: METOCLOPRAMIDE HCL 10 MG/10 ML UDC GT SCH ×3 (04:59→21:03)
[2018-07-12] MEDS: VANCOMYCIN 1 GM in IV D5W 250 ML IV SCH (05:54)
[2018-07-12 06:08] VITALS: BP 128/74
[2018-07-12 07:31] VITALS: BP 127/75
[2018-07-12] MEDS: ACIDOPHILUS/BULGARICUS 1 EACH TAB.CHEW GT SCH ×2 (08:23→21:03)
[2018-07-12] MEDS: DOCUSATE SODIUM LIQ 100 MG/10 ML UDC GT SCH (08:23)
[2018-07-12] MEDS: METOPROLOL TARTRATE 25 MG TABLET GT SCH ×2 (08:23→21:03)
[2018-07-12] MEDS: MAGNESIUM OXIDE 400 MG TABLET GT SCH (08:23)
[2018-07-12] MEDS: PROSTAT (PYXIS) 30 ML UDC GT SCH ×2 (08:24→17:57)
[2018-07-12] MEDS: AMLODIPINE BESYLATE 5 MG TABLET GT SCH (08:24)
[2018-07-12] MEDS: MULTIVIT W/MINERALS 1 TAB TABLET GT SCH (08:24)
[2018-07-12] MEDS: ZINC SULFATE 220 MG CAPSULE GT SCH (08:26)
[2018-07-12] MEDS: ASCORBIC ACID 500 MG TABLET GT SCH (08:26)
[2018-07-12] MEDS: TRAMADOL HCL 50 MG TABLET GT SCH ×3 (08:26→22:04)
[2018-07-12] MEDS: Z GUARD REMEDY 4 OZ OINT TP SCH ×4 (09:00→21:04)
[2018-07-12] MEDS: VITS A AND D/WHITE PET/LANOLIN 5 GM PACKET TP SCH ×2 (09:00→21:04)
[2018-07-12] MEDS: POVIDONE-IODINE OINT 28.4 GM TUBE TP SCH (09:30)
[2018-07-12] MEDS: HYDROGEN PEROXIDE 480 ML BOTTLE TP SCH ×2 (09:30→21:04)
[2018-07-12] MEDS: DAKINS HALF STRENGTH (0.25%) 480 ML BOTTLE TOP SCH ×2 (09:30)
[2018-07-12 12:00] VITALS: BP 122/71
--- NOTE | 2018-07-12 14:08 | NUR ---
Resident up in [facility] x 2 hours, vomited x 1 immediately after transferring to [facility], with moderate amount of undigested formula. Suctioned trach and mouth, no s/s of aspiration. Antiemetic med given, no further episode of vomiting at this time,
[2018-07-12 18:00] VITALS: BP 131/70
[2018-07-12 20:04] VITALS: BP 127/70
[2018-07-12] MEDS: SENNOSIDES 8.6 MG TABLET GT SCH (21:04)
[2018-07-12] MEDS: INSULIN DETEMIR 100 UNIT/ML CARTRIDGE SQ SCH (21:05)
[2018-07-12] MEDS: CLONIDINE HCL 0.1 MG TABLET GT PRN (23:34)
[2018-07-13] VITALS: BP 125/59
[2018-07-13] MEDS: IPRATROPIUM NEB FS 0.5 MG/2.5 ML AMPUL.NEB NEB SCH ×4 (01:33→18:55)
[2018-07-13] MEDS: GLUCERNA 1.2 1,000 ML BOTTLE GT PRN (03:30)
[2018-07-13] MEDS: METOCLOPRAMIDE HCL 10 MG/10 ML UDC GT SCH ×3 (05:36→20:15)
[2018-07-13] MEDS: BLOOD SUGAR DIAGNOSTIC 1 EACH STRIP IN SCH ×3 (05:36→17:37)
[2018-07-13] MEDS: INSULIN REGULAR, HUMAN 100 UNIT/ML 3 ML VIAL SQ PRN ×3 (05:37→17:39)
[2018-07-13 06:00] VITALS: BP 129/60
[2018-07-13 07:42] VITALS: BP 136/69
[2018-07-13] MEDS: DAKINS HALF STRENGTH (0.25%) 480 ML BOTTLE TOP SCH ×2 (09:00)
[2018-07-13] MEDS: HYDROGEN PEROXIDE 480 ML BOTTLE TP SCH ×2 (09:00→20:17)
[2018-07-13] MEDS: POVIDONE-IODINE OINT 28.4 GM TUBE TP SCH (09:00)
[2018-07-13] MEDS: Z GUARD REMEDY 4 OZ OINT TP SCH ×4 (09:00→20:17)
[2018-07-13] MEDS: VITS A AND D/WHITE PET/LANOLIN 5 GM PACKET TP SCH ×2 (09:00→20:17)
[2018-07-13] MEDS: ACIDOPHILUS/BULGARICUS 1 EACH TAB.CHEW GT SCH ×2 (09:49→20:14)
[2018-07-13] MEDS: DOCUSATE SODIUM LIQ 100 MG/10 ML UDC GT SCH (09:49)
[2018-07-13] MEDS: METOPROLOL TARTRATE 25 MG TABLET GT SCH ×2 (09:50→20:15)
[2018-07-13] MEDS: AMLODIPINE BESYLATE 5 MG TABLET GT SCH (09:50)
[2018-07-13] MEDS: PROSTAT (PYXIS) 30 ML UDC GT SCH ×2 (09:50→17:37)
[2018-07-13] MEDS: MAGNESIUM OXIDE 400 MG TABLET GT SCH (09:50)
[2018-07-13] MEDS: MULTIVIT W/MINERALS 1 TAB TABLET GT SCH (09:50)
[2018-07-13] MEDS: ZINC SULFATE 220 MG CAPSULE GT SCH (09:51)
[2018-07-13] MEDS: ASCORBIC ACID 500 MG TABLET GT SCH (09:51)
[2018-07-13] MEDS: TRAMADOL HCL 50 MG TABLET GT SCH ×2 (09:51→20:16)
[2018-07-13] MEDS: LEVOFLOXACIN 750 MG /D5W 150ML 750 MG in PREMIX 1 EA IV SCH (18:40)
[2018-07-13 19:04] VITALS: BP 130/68
[2018-07-13 19:58] VITALS: BP 135/74
[2018-07-13] MEDS: INSULIN DETEMIR 100 UNIT/ML CARTRIDGE SQ SCH (22:00)
[2018-07-13] MEDS: SENNOSIDES 8.6 MG TABLET GT SCH (22:00)
[2018-07-14 00:14] VITALS: BP 138/70
[2018-07-14] MEDS: BLOOD SUGAR DIAGNOSTIC 1 EACH STRIP IN SCH ×4 (00:17→18:01)
[2018-07-14] MEDS: INSULIN REGULAR, HUMAN 100 UNIT/ML 3 ML VIAL SQ PRN ×4 (00:18→18:04)
[2018-07-14] MEDS: IPRATROPIUM NEB FS 0.5 MG/2.5 ML AMPUL.NEB NEB SCH ×5 (00:37→19:15)
[2018-07-14] MEDS: GLUCERNA 1.2 1,000 ML BOTTLE GT PRN (01:48)
[2018-07-14] MEDS: METOCLOPRAMIDE HCL 10 MG/10 ML UDC GT SCH ×3 (05:29→20:12)
[2018-07-14 06:06] VITALS: BP 144/69
[2018-07-14 07:27] LABS: CALCIUM, SERUM 9.2 mg/dL (8.5-10.1); CARBON DIOXIDE 28 mmol/L (21-32); CHLORIDE 98 mmol/L (98-107); CREATININE 1.4 mg/dL (0.6-1.3); GLUCOSE 149 mg/dL (74-106); POTASSIUM 4.9 mmol/L (3.5-5.1); SODIUM SERUM 134 mmol/L (136-145); UREA NITROGEN, BLOOD 63 mg/dL (7-18)
[2018-07-14 07:38] LABS: BASOPHILS % (AUTO) 0.5 % (0.0-2.0); EOSINOPHILS % (AUTO) 3.8 % (0.0-6.0); HEMATOCRIT 36 % (33-45); HEMOGLOBIN 11.3 g/dL (11.5-14.8); LYMPHOCYTES # (AUTO) 1.4 /CMM (0.8-4.8); LYMPHOCYTES % (AUTO) 14.4 % (20.0-44.0); MEAN CORPUSCULAR HGB CONC 32 g/dl (31.0-36.0); MEAN CORPUSCULAR VOLUME 78 fL (82-100); MONOCYTES # (AUTO) 1.1 /CMM (0.1-1.30); MONOCYTES % (AUTO) 11.4 % (2.0-12.0); NEUTROPHILS # (AUTO) 6.7 /CMM (1.8-8.9); NEUTROPHILS % (AUTO) 69.9 % (43.0-81.0); PLATELET COUNT (AUTO) 263 /CMM (150-450); RED BLOOD CELL COUNT(AUTO) 4.61 MIL/uL (4.0-5.2); WHITE BLOOD COUNT (AUTO) 9.5 K/uL (4.3-11.0)
[2018-07-14 07:43] VITALS: BP 126/71
[2018-07-14] MEDS: POVIDONE-IODINE OINT 28.4 GM TUBE TP SCH (09:00)
[2018-07-14] MEDS: Z GUARD REMEDY 4 OZ OINT TP SCH ×4 (09:00→20:14)
[2018-07-14] MEDS: VITS A AND D/WHITE PET/LANOLIN 5 GM PACKET TP SCH ×2 (09:00→20:14)
[2018-07-14] MEDS: HYDROGEN PEROXIDE 480 ML BOTTLE TP SCH ×2 (09:00→20:13)
[2018-07-14] MEDS: DAKINS HALF STRENGTH (0.25%) 480 ML BOTTLE TOP SCH ×2 (09:00)
[2018-07-14] MEDS: METOPROLOL TARTRATE 25 MG TABLET GT SCH ×2 (09:28→20:11)
[2018-07-14] MEDS: MAGNESIUM OXIDE 400 MG TABLET GT SCH (09:28)
[2018-07-14] MEDS: AMLODIPINE BESYLATE 5 MG TABLET GT SCH (09:28)
[2018-07-14] MEDS: DOCUSATE SODIUM LIQ 100 MG/10 ML UDC GT SCH (09:28)
[2018-07-14] MEDS: ACIDOPHILUS/BULGARICUS 1 EACH TAB.CHEW GT SCH ×2 (09:28→20:11)
[2018-07-14] MEDS: PROSTAT (PYXIS) 30 ML UDC GT SCH ×2 (09:28→16:08)
[2018-07-14] MEDS: MULTIVIT W/MINERALS 1 TAB TABLET GT SCH (09:29)
[2018-07-14] MEDS: TRAMADOL HCL 50 MG TABLET GT SCH ×2 (09:29→20:13)
[2018-07-14] MEDS: ASCORBIC ACID 500 MG TABLET GT SCH (09:29)
[2018-07-14] MEDS: ZINC SULFATE 220 MG CAPSULE GT SCH (09:29)
--- NOTE | 2018-07-14 09:30 | NUR ---
Seen and examined by AVERY Krishnamurthy, no new order give. S/P Vancomycin IV. No fever noted. Will continue to monitor.
--- NOTE | 2018-07-14 13:00 | NUR ---
Seen and examined by AVERY Mata, no new order given.
[2018-07-14 14:45] VITALS: BP 127/66
--- NOTE | 2018-07-14 16:13 | NUR ---
SW communicated with patient's daughter pat has dentist appt. on 07/21 and podiaty on 07/25
[2018-07-14 18:44] VITALS: BP 116/67
--- NOTE | 2018-07-14 19:18 | NUR ---
PATIENT RECEIVED TRACHED ON MECHANICAL VENTILATION. CUFF CHECKED VIA SUPERVISOR WRAPPING ROOM. AMBU BAG/BACK UP TRACH @ BEDSIDE. VENT PLUGGED INTO RED OUTLET. TX GIVEN, NO ADVERSE REACTIONS NOTED. SX DONE, MODERATE THICK WHITE SECRETIONS NOTED. ALARMS ON AND AUDIBLE. NO DISTRESS NOTED. WILL MONITOR T/O SHIFT. Addendum: 07/14/18 at 1919 by CHAZ ESTRELLA RT Amended: Links added.
[2018-07-14 20:02] VITALS: BP 103/58
[2018-07-14] MEDS: SENNOSIDES 8.6 MG TABLET GT SCH (21:42)
[2018-07-14] MEDS: INSULIN DETEMIR 100 UNIT/ML CARTRIDGE SQ SCH (21:44)
[2018-07-15 00:22] VITALS: BP 135/57
[2018-07-15] MEDS: BLOOD SUGAR DIAGNOSTIC 1 EACH STRIP IN SCH ×4 (00:24→18:17)
[2018-07-15] MEDS: INSULIN REGULAR, HUMAN 100 UNIT/ML 3 ML VIAL SQ PRN ×4 (00:26→18:20)
[2018-07-15] MEDS: IPRATROPIUM NEB FS 0.5 MG/2.5 ML AMPUL.NEB NEB SCH ×4 (01:13→19:32)
[2018-07-15] MEDS: GLUCERNA 1.2 1,000 ML BOTTLE GT PRN (03:59)
[2018-07-15] MEDS: METOCLOPRAMIDE HCL 10 MG/10 ML UDC GT SCH ×3 (05:33→20:07)
[2018-07-15 06:17] VITALS: BP 131/70
[2018-07-15 07:43] VITALS: BP 148/81
[2018-07-15] MEDS: Z GUARD REMEDY 4 OZ OINT TP SCH ×4 (09:00→20:08)
[2018-07-15] MEDS: POVIDONE-IODINE OINT 28.4 GM TUBE TP SCH (09:00)
[2018-07-15] MEDS: VITS A AND D/WHITE PET/LANOLIN 5 GM PACKET TP SCH ×2 (09:00→20:08)
[2018-07-15] MEDS: HYDROGEN PEROXIDE 480 ML BOTTLE TP SCH ×2 (09:00→20:08)
[2018-07-15] MEDS: DAKINS HALF STRENGTH (0.25%) 480 ML BOTTLE TOP SCH ×2 (09:00)
[2018-07-15] MEDS: DOCUSATE SODIUM LIQ 100 MG/10 ML UDC GT SCH (09:39)
[2018-07-15] MEDS: AMLODIPINE BESYLATE 5 MG TABLET GT SCH (09:39)
[2018-07-15] MEDS: METOPROLOL TARTRATE 25 MG TABLET GT SCH ×2 (09:39→20:07)
[2018-07-15] MEDS: ACIDOPHILUS/BULGARICUS 1 EACH TAB.CHEW GT SCH ×2 (09:39→20:05)
[2018-07-15] MEDS: MAGNESIUM OXIDE 400 MG TABLET GT SCH (09:39)
[2018-07-15] MEDS: PROSTAT (PYXIS) 30 ML UDC GT SCH ×2 (09:40→16:36)
[2018-07-15] MEDS: MULTIVIT W/MINERALS 1 TAB TABLET GT SCH (09:40)
[2018-07-15] MEDS: ZINC SULFATE 220 MG CAPSULE GT SCH (09:41)
[2018-07-15] MEDS: ASCORBIC ACID 500 MG TABLET GT SCH (09:41)
[2018-07-15] MEDS: TRAMADOL HCL 50 MG TABLET GT SCH ×2 (09:41→20:08)
[2018-07-15 15:10] VITALS: BP 133/73
[2018-07-15] MEDS: LEVOFLOXACIN 750 MG /D5W 150ML 750 MG in PREMIX 1 EA IV SCH (18:00)
[2018-07-15 18:32] VITALS: BP 131/73
--- NOTE | 2018-07-15 19:41 | NUR ---
PATIENT RECEIVED TRACHED ON MECHANICAL VENTILATION. CUFF CHECKED VIA SETUP TECHNICIAN. AMBU BAG/BACK UP TRACH @ BEDSIDE. VENT PLUGGED INTO RED OUTLET. TX GIVEN, NO ADVERSE REACTIONS NOTED. SX DONE, MODERATE THICK WHITE SECRETIONS NOTED. ALARMS ON AND AUDIBLE. NO DISTRESS NOTED. WILL MONITOR T/O SHIFT. Addendum: 07/15/18 at 1941 by CHAZ ESTRELAL RT Amended: Links added.
[2018-07-15 20:35] VITALS: BP 134/69
[2018-07-15] MEDS: SENNOSIDES 8.6 MG TABLET GT SCH (21:47)
[2018-07-15] MEDS: INSULIN DETEMIR 100 UNIT/ML CARTRIDGE SQ SCH (21:48)
[2018-07-16] MEDS: BLOOD SUGAR DIAGNOSTIC 1 EACH STRIP IN SCH ×4 (00:23→17:51)
[2018-07-16] MEDS: INSULIN REGULAR, HUMAN 100 UNIT/ML 3 ML VIAL SQ PRN ×4 (00:26→17:59)
[2018-07-16 00:29] VITALS: BP 124/60
[2018-07-16] MEDS: IPRATROPIUM NEB FS 0.5 MG/2.5 ML AMPUL.NEB NEB SCH ×4 (02:09→19:44)
[2018-07-16] MEDS: GLUCERNA 1.2 1,000 ML BOTTLE GT PRN (04:19)
[2018-07-16] MEDS: METOCLOPRAMIDE HCL 10 MG/10 ML UDC GT SCH ×3 (05:32→21:06)
[2018-07-16 06:08] VITALS: BP_SYST 133
[2018-07-16 07:39] VITALS: BP 158/83
[2018-07-16] MEDS: METOPROLOL TARTRATE 25 MG TABLET GT SCH ×2 (09:16→21:05)
[2018-07-16] MEDS: MAGNESIUM OXIDE 400 MG TABLET GT SCH (09:16)
[2018-07-16] MEDS: DOCUSATE SODIUM LIQ 100 MG/10 ML UDC GT SCH (09:16)
[2018-07-16] MEDS: ACIDOPHILUS/BULGARICUS 1 EACH TAB.CHEW GT SCH ×2 (09:16→21:05)
[2018-07-16] MEDS: AMLODIPINE BESYLATE 5 MG TABLET GT SCH (09:17)
[2018-07-16] MEDS: TRAMADOL HCL 50 MG TABLET GT SCH ×2 (09:17→21:06)
[2018-07-16] MEDS: MULTIVIT W/MINERALS 1 TAB TABLET GT SCH (09:17)
[2018-07-16] MEDS: ZINC SULFATE 220 MG CAPSULE GT SCH (09:17)
[2018-07-16] MEDS: ASCORBIC ACID 500 MG TABLET GT SCH (09:17)
[2018-07-16] MEDS: PROSTAT (PYXIS) 30 ML UDC GT SCH ×2 (09:17→17:51)
[2018-07-16] MEDS: BISACODYL SUPP (10 MG) 10 MG/SUPP.RECT SUPP.RECT RC PRN (09:20)
[2018-07-16] MEDS: DAKINS HALF STRENGTH (0.25%) 480 ML BOTTLE TOP SCH ×2 (10:17)
[2018-07-16] MEDS: VITS A AND D/WHITE PET/LANOLIN 5 GM PACKET TP SCH ×2 (10:17→21:07)
[2018-07-16] MEDS: POVIDONE-IODINE OINT 28.4 GM TUBE TP SCH (10:17)
[2018-07-16] MEDS: Z GUARD REMEDY 4 OZ OINT TP SCH ×4 (10:17→21:07)
[2018-07-16] MEDS: HYDROGEN PEROXIDE 480 ML BOTTLE TP SCH ×2 (10:17→21:06)
[2018-07-16 12:00] VITALS: BP 122/59
[2018-07-16] MEDS: MAGNESIUM HYDROXIDE 30 ML UDC GT PRN (17:59)
[2018-07-16 18:00] VITALS: BP 123/66
[2018-07-16 20:05] VITALS: BP 130/59
--- NOTE | 2018-07-16 20:41 | NUR ---
PT RCVD TRACH'D ON MECHANICAL WITH CHARTED SETTINGS. TX GIVEN AND NO ADVERSE REACTION NOTED. SX DONE. PT TRACH PATENT AND SECURE. VENT PLUGGED INTO RED OUTLET. ALARMS ARE SET AND AUDIBLE. AMBU BAG AT BEDSIDE. WILL CONTINUE TO MONITOR. Addendum: 07/16/18 at 2040 by FELICITAS CHRISTIE RT Amended: Links added.
[2018-07-16] MEDS: SENNOSIDES 8.6 MG TABLET GT SCH (21:07)
[2018-07-16] MEDS: INSULIN DETEMIR 100 UNIT/ML CARTRIDGE SQ SCH (21:33)
[2018-07-17] MEDS: BLOOD SUGAR DIAGNOSTIC 1 EACH STRIP IN SCH ×4 (00:17→17:21)
[2018-07-17] MEDS: INSULIN REGULAR, HUMAN 100 UNIT/ML 3 ML VIAL SQ PRN ×4 (00:21→17:21)
--- NOTE | 2018-07-17 00:22 | NUR ---
fly fishing guide notes blood sugar 224, 4 units of isulin given yasmin SQ as ordered.
[2018-07-17 00:51] VITALS: BP 149/74
[2018-07-17] MEDS: IPRATROPIUM NEB FS 0.5 MG/2.5 ML AMPUL.NEB NEB SCH ×4 (01:43→19:48)
[2018-07-17] MEDS: METOCLOPRAMIDE HCL 10 MG/10 ML UDC GT SCH ×3 (05:37→20:06)
[2018-07-17 06:04] VITALS: BP 157/77
--- NOTE | 2018-07-17 06:19 | NUR ---
growth hacker notes Blood sugar 192, 2 units of insulin given as ordered yasmin SQ. no signs of any discomfort, or any acute distress noted. no signs of hyper glycemia noted. will continue monitoring.
[2018-07-17 08:04] VITALS: BP 135/82
--- NOTE | 2018-07-17 08:56 | NUR ---
RT PATIENT REC'D TRACHED ON MECHANICAL VENTILATION. CUFF CHECKED VIA CELLAR SUPERVISOR. AMBU BAG/BACK UP TRACH BY BEDSIDE. VENT PLUGGED INTO RED OUTLET. TX GIVEN, NO ADVERSE REACTIONS NOTED. SX DONE, MODERATE THICK WHITE SECRETIONS NOTED. ALARMS ON AND AUDIBLE. NO DISTRESS NOTED. WILL CONTINUE TO MONITOR. Addendum: 07/17/18 at 0858 by FLORINDA TSE RT Amended: Links added.
[2018-07-17] MEDS: METOPROLOL TARTRATE 25 MG TABLET GT SCH ×2 (09:51→20:05)
[2018-07-17] MEDS: MAGNESIUM OXIDE 400 MG TABLET GT SCH (09:51)
[2018-07-17] MEDS: ACIDOPHILUS/BULGARICUS 1 EACH TAB.CHEW GT SCH ×2 (09:51→20:04)
[2018-07-17] MEDS: DOCUSATE SODIUM LIQ 100 MG/10 ML UDC GT SCH (09:51)
[2018-07-17] MEDS: ASCORBIC ACID 500 MG TABLET GT SCH (09:52)
[2018-07-17] MEDS: ZINC SULFATE 220 MG CAPSULE GT SCH (09:52)
[2018-07-17] MEDS: AMLODIPINE BESYLATE 5 MG TABLET GT SCH (09:52)
[2018-07-17] MEDS: PROSTAT (PYXIS) 30 ML UDC GT SCH ×2 (09:52→17:21)
[2018-07-17] MEDS: MULTIVIT W/MINERALS 1 TAB TABLET GT SCH (09:52)
[2018-07-17] MEDS: TRAMADOL HCL 50 MG TABLET GT SCH ×2 (09:52→20:07)
[2018-07-17] MEDS: Z GUARD REMEDY 4 OZ OINT TP SCH ×4 (10:30→20:07)
[2018-07-17] MEDS: DAKINS HALF STRENGTH (0.25%) 480 ML BOTTLE TOP SCH ×2 (10:30)
[2018-07-17] MEDS: VITS A AND D/WHITE PET/LANOLIN 5 GM PACKET TP SCH ×2 (10:30→20:07)
[2018-07-17] MEDS: POVIDONE-IODINE OINT 28.4 GM TUBE TP SCH (10:30)
[2018-07-17] MEDS: HYDROGEN PEROXIDE 480 ML BOTTLE TP SCH ×2 (10:30→20:07)
[2018-07-17 12:00] VITALS: BP 149/75
[2018-07-17] MEDS: GLUCERNA 1.2 1,000 ML BOTTLE GT PRN (17:20)
[2018-07-17 18:00] VITALS: BP 142/80
[2018-07-17] MEDS: LEVOFLOXACIN 750 MG /D5W 150ML 750 MG in PREMIX 1 EA IV SCH (18:14)
--- NOTE | 2018-07-17 19:48 | NUR ---
RT NOTE PATIENT RECEIVED ON MECHANICAL VENT. PATIENT IS TOLERATING CURRENT ORDERED VENT SETTINGS WITHOUT RESPIRATORY DISTRESS. TRACH IS PATENT AND SECURE. ALARMS ARE SET AND AUDIBLE. MECHANICAL VENT IS PLUGGED INTO RED OUTLET. EMERGENCY EQUIPMENT IS AT PATIENT BEDSIDE. WILL CONTINUE TO MONITOR. Addendum: 07/17/18 at 2107 by SALINAS MAGAÑA RT Amended: Links added.
[2018-07-17 19:58] VITALS: BP 136/70
[2018-07-17] MEDS: SENNOSIDES 8.6 MG TABLET GT SCH (22:37)
[2018-07-17] MEDS: INSULIN DETEMIR 100 UNIT/ML CARTRIDGE SQ SCH (22:38)
[2018-07-18 00:36] VITALS: BP 142/73
[2018-07-18] MEDS: BLOOD SUGAR DIAGNOSTIC 1 EACH STRIP IN SCH ×5 (00:38→23:55)
[2018-07-18] MEDS: INSULIN REGULAR, HUMAN 100 UNIT/ML 3 ML VIAL SQ PRN ×5 (00:39→23:56)
[2018-07-18] MEDS: IPRATROPIUM NEB FS 0.5 MG/2.5 ML AMPUL.NEB NEB SCH ×4 (01:42→19:51)
[2018-07-18] MEDS: METOCLOPRAMIDE HCL 10 MG/10 ML UDC GT SCH ×3 (05:34→20:39)
[2018-07-18 06:09] VITALS: BP 136/74
[2018-07-18 08:09] VITALS: BP 122/64
[2018-07-18] MEDS: PROSTAT (PYXIS) 30 ML UDC GT SCH ×2 (09:00→16:56)
[2018-07-18] MEDS: ASCORBIC ACID 500 MG TABLET GT SCH (09:00)
[2018-07-18] MEDS: METOPROLOL TARTRATE 25 MG TABLET GT SCH ×2 (09:00→20:39)
[2018-07-18] MEDS: ZINC SULFATE 220 MG CAPSULE GT SCH (09:00)
[2018-07-18] MEDS: MULTIVIT W/MINERALS 1 TAB TABLET GT SCH (09:00)
[2018-07-18] MEDS: DOCUSATE SODIUM LIQ 100 MG/10 ML UDC GT SCH (09:00)
[2018-07-18] MEDS: ACIDOPHILUS/BULGARICUS 1 EACH TAB.CHEW GT SCH ×2 (09:00→20:38)
[2018-07-18] MEDS: AMLODIPINE BESYLATE 5 MG TABLET GT SCH (09:00)
[2018-07-18] MEDS: MAGNESIUM OXIDE 400 MG TABLET GT SCH (09:00)
[2018-07-18] MEDS: TRAMADOL HCL 50 MG TABLET GT SCH ×2 (10:20→20:41)
[2018-07-18] MEDS: MAGNESIUM HYDROXIDE 30 ML UDC GT PRN (10:22)
[2018-07-18] MEDS: POVIDONE-IODINE OINT 28.4 GM TUBE TP SCH (10:50)
[2018-07-18] MEDS: DAKINS HALF STRENGTH (0.25%) 480 ML BOTTLE TOP SCH (10:50)
[2018-07-18] MEDS: VITS A AND D/WHITE PET/LANOLIN 5 GM PACKET TP SCH ×2 (10:50→21:26)
[2018-07-18] MEDS: HYDROGEN PEROXIDE 480 ML BOTTLE TP SCH ×2 (10:50→21:26)
[2018-07-18] MEDS: Z GUARD REMEDY 4 OZ OINT TP SCH ×4 (10:50→21:26)
[2018-07-18 12:00] VITALS: BP 136/73
[2018-07-18 18:41] VITALS: BP 141/67
[2018-07-18 20:02] VITALS: BP 134/70
[2018-07-18] MEDS: SENNOSIDES 8.6 MG TABLET GT SCH (21:26)
[2018-07-18] MEDS: INSULIN DETEMIR 100 UNIT/ML CARTRIDGE SQ SCH (21:29)
[2018-07-19 00:01] VITALS: BP 130/70
[2018-07-19] MEDS: IPRATROPIUM NEB FS 0.5 MG/2.5 ML AMPUL.NEB NEB SCH ×4 (00:44→19:25)
[2018-07-19] MEDS: METOCLOPRAMIDE HCL 10 MG/10 ML UDC GT SCH ×3 (05:25→21:26)
[2018-07-19] MEDS: BLOOD SUGAR DIAGNOSTIC 1 EACH STRIP IN SCH ×4 (05:53→23:47)
[2018-07-19] MEDS: INSULIN REGULAR, HUMAN 100 UNIT/ML 3 ML VIAL SQ PRN ×4 (05:54→23:48)
[2018-07-19 06:12] VITALS: BP 134/68
[2018-07-19 07:31] VITALS: BP 129/70
[2018-07-19] MEDS: MULTIVIT W/MINERALS 1 TAB TABLET GT SCH (09:27)
[2018-07-19] MEDS: AMLODIPINE BESYLATE 5 MG TABLET GT SCH (09:27)
[2018-07-19] MEDS: MAGNESIUM OXIDE 400 MG TABLET GT SCH (09:27)
[2018-07-19] MEDS: PROSTAT (PYXIS) 30 ML UDC GT SCH ×2 (09:27→17:55)
[2018-07-19] MEDS: DOCUSATE SODIUM LIQ 100 MG/10 ML UDC GT SCH (09:27)
[2018-07-19] MEDS: ACIDOPHILUS/BULGARICUS 1 EACH TAB.CHEW GT SCH ×2 (09:27→21:25)
[2018-07-19] MEDS: METOPROLOL TARTRATE 25 MG TABLET GT SCH ×2 (09:27→21:26)
[2018-07-19] MEDS: ASCORBIC ACID 500 MG TABLET GT SCH (09:28)
[2018-07-19] MEDS: TRAMADOL HCL 50 MG TABLET GT SCH ×2 (09:28→21:26)
[2018-07-19] MEDS: ZINC SULFATE 220 MG CAPSULE GT SCH (09:28)
[2018-07-19] MEDS: Z GUARD REMEDY 4 OZ OINT TP SCH ×4 (09:55→21:26)
[2018-07-19] MEDS: HYDROGEN PEROXIDE 480 ML BOTTLE TP SCH ×2 (09:55→21:26)
[2018-07-19] MEDS: VITS A AND D/WHITE PET/LANOLIN 5 GM PACKET TP SCH ×2 (09:56→21:26)
[2018-07-19 12:00] VITALS: BP 126/77
[2018-07-19] MEDS: MAGNESIUM HYDROXIDE 30 ML UDC GT PRN (17:55)
[2018-07-19] MEDS: LEVOFLOXACIN 750 MG /D5W 150ML 750 MG in PREMIX 1 EA IV SCH (18:25)
[2018-07-19 18:39] VITALS: BP 122/68
[2018-07-19 19:57] VITALS: BP 112/73
[2018-07-19] MEDS: SENNOSIDES 8.6 MG TABLET GT SCH (21:26)
[2018-07-19] MEDS: INSULIN DETEMIR 100 UNIT/ML CARTRIDGE SQ SCH (21:27)
--- NOTE | 2018-07-19 22:35 | NUR ---
RT NOTE PT RECEIVED ON [facility] VENT ON THE FOLLOWING NOTED SETTINGS. NO RESP DISTRESS OR SOB NOTED. PT SX'D. BREATHING TX GIVEN, NO ADVERSE REACTIONS NOTED AT THIS TIME. VENT PLUGGED INTO RED OUTLET. ALARMS ARE ON AND AUDIBLE. AMBU BAG AND SPARE TRACH ARE AT BEDSIDE. WILL CONT TO MONITOR PT. Addendum: 07/19/18 at 2235 by MEI SANTANA RT Amended: Links added.
[2018-07-19] MEDS: GLUCERNA 1.2 1,000 ML BOTTLE GT PRN (23:49)
[2018-07-19] MEDS: ONDANSETRON HCL 4 MG/5 ML SOLUTION GT PRN (23:55)
[2018-07-19] MEDS: CLONIDINE HCL 0.1 MG TABLET GT PRN (23:59)
[2018-07-20] VITALS: BP 147/72
[2018-07-20] MEDS: IPRATROPIUM NEB FS 0.5 MG/2.5 ML AMPUL.NEB NEB SCH ×4 (00:34→19:37)
[2018-07-20] MEDS: BLOOD SUGAR DIAGNOSTIC 1 EACH STRIP IN SCH ×4 (05:39→23:29)
[2018-07-20] MEDS: INSULIN REGULAR, HUMAN 100 UNIT/ML 3 ML VIAL SQ PRN ×4 (05:39→23:30)
[2018-07-20] MEDS: METOCLOPRAMIDE HCL 10 MG/10 ML UDC GT SCH ×3 (05:39→21:13)
[2018-07-20 06:00] VITALS: BP 140/74
[2018-07-20] MEDS: CLONIDINE HCL 0.1 MG TABLET GT PRN (06:04)
[2018-07-20 07:24] VITALS: BP 140/87
[2018-07-20] MEDS: ACIDOPHILUS/BULGARICUS 1 EACH TAB.CHEW GT SCH ×2 (09:22→21:12)
[2018-07-20] MEDS: DOCUSATE SODIUM LIQ 100 MG/10 ML UDC GT SCH (09:22)
[2018-07-20] MEDS: METOPROLOL TARTRATE 25 MG TABLET GT SCH ×2 (09:24→21:13)
[2018-07-20] MEDS: MAGNESIUM OXIDE 400 MG TABLET GT SCH (09:24)
[2018-07-20] MEDS: PROSTAT (PYXIS) 30 ML UDC GT SCH ×2 (09:24→17:09)
[2018-07-20] MEDS: ASCORBIC ACID 500 MG TABLET GT SCH (09:24)
[2018-07-20] MEDS: TRAMADOL HCL 50 MG TABLET GT SCH ×2 (09:24→21:13)
[2018-07-20] MEDS: ZINC SULFATE 220 MG CAPSULE GT SCH (09:24)
[2018-07-20] MEDS: MULTIVIT W/MINERALS 1 TAB TABLET GT SCH (09:24)
[2018-07-20] MEDS: AMLODIPINE BESYLATE 5 MG TABLET GT SCH (09:24)
[2018-07-20] MEDS: VITS A AND D/WHITE PET/LANOLIN 5 GM PACKET TP SCH ×2 (09:25→21:14)
[2018-07-20] MEDS: HYDROGEN PEROXIDE 480 ML BOTTLE TP SCH ×2 (09:25→21:13)
[2018-07-20] MEDS: Z GUARD REMEDY 4 OZ OINT TP SCH ×4 (09:25→21:14)
[2018-07-20 15:09] VITALS: BP 128/70
[2018-07-20 18:20] VITALS: BP 118/73
[2018-07-20 19:52] VITALS: BP 139/87
[2018-07-20] MEDS: SENNOSIDES 8.6 MG TABLET GT SCH (21:14)
[2018-07-20] MEDS: INSULIN DETEMIR 100 UNIT/ML CARTRIDGE SQ SCH (21:15)
[2018-07-21] MEDS: IPRATROPIUM NEB FS 0.5 MG/2.5 ML AMPUL.NEB NEB SCH ×4 (01:23→19:28)
[2018-07-21 03:10] VITALS: BP 129/72
[2018-07-21] MEDS: METOCLOPRAMIDE HCL 10 MG/10 ML UDC GT SCH ×3 (05:00→21:18)
[2018-07-21 06:14] VITALS: BP 132/76
[2018-07-21] MEDS: BLOOD SUGAR DIAGNOSTIC 1 EACH STRIP IN SCH ×3 (06:15→17:44)
[2018-07-21] MEDS: INSULIN REGULAR, HUMAN 100 UNIT/ML 3 ML VIAL SQ PRN ×3 (06:16→17:45)
[2018-07-21 07:51] VITALS: BP 141/72
[2018-07-21] MEDS: METOPROLOL TARTRATE 25 MG TABLET GT SCH ×2 (09:20→21:18)
[2018-07-21] MEDS: DOCUSATE SODIUM LIQ 100 MG/10 ML UDC GT SCH (09:20)
[2018-07-21] MEDS: ACIDOPHILUS/BULGARICUS 1 EACH TAB.CHEW GT SCH ×2 (09:20→21:18)
[2018-07-21] MEDS: MAGNESIUM OXIDE 400 MG TABLET GT SCH (09:21)
[2018-07-21] MEDS: ASCORBIC ACID 500 MG TABLET GT SCH (09:22)
[2018-07-21] MEDS: MULTIVIT W/MINERALS 1 TAB TABLET GT SCH (09:22)
[2018-07-21] MEDS: PROSTAT (PYXIS) 30 ML UDC GT SCH ×2 (09:22→17:44)
[2018-07-21] MEDS: AMLODIPINE BESYLATE 5 MG TABLET GT SCH (09:22)
[2018-07-21] MEDS: TRAMADOL HCL 50 MG TABLET GT SCH ×2 (09:22→21:19)
[2018-07-21] MEDS: ZINC SULFATE 220 MG CAPSULE GT SCH (09:25)
[2018-07-21] MEDS: Z GUARD REMEDY 4 OZ OINT TP SCH ×2 (10:00→21:19)
[2018-07-21] MEDS: HYDROGEN PEROXIDE 480 ML BOTTLE TP SCH ×2 (10:22→21:19)
[2018-07-21] MEDS: VITS A AND D/WHITE PET/LANOLIN 5 GM PACKET TP SCH ×2 (10:52→21:19)
[2018-07-21 12:00] VITALS: BP 136/76
[2018-07-21 18:00] VITALS: BP 141/76
[2018-07-21 19:53] VITALS: BP 120/58
[2018-07-21] MEDS: SENNOSIDES 8.6 MG TABLET GT SCH (21:19)
[2018-07-21] MEDS: INSULIN DETEMIR 100 UNIT/ML CARTRIDGE SQ SCH (21:20)
--- NOTE | 2018-07-21 22:59 | NUR ---
PT RCVD CLARISSE'D ON MECHANICAL WITH CHARTED SETTINGS. TX GIVEN AND NO ADVERSE REACTION NOTED. SX DONE. PT TRACH PATENT AND SECURE. VENT PLUGGED INTO RED OUTLET. ALARMS ARE SET AND AUDIBLE. AMBU BAG AT BEDSIDE. WILL CONTINUE TO MONITOR. Addendum: 07/21/18 at 2300 by CHAZ ESTRELLA RT Amended: Links added.
[2018-07-22] MEDS: BLOOD SUGAR DIAGNOSTIC 1 EACH STRIP IN SCH ×5 (00:26→23:37)
[2018-07-22] MEDS: INSULIN REGULAR, HUMAN 100 UNIT/ML 3 ML VIAL SQ PRN ×5 (00:27→23:38)
[2018-07-22] MEDS: IPRATROPIUM NEB FS 0.5 MG/2.5 ML AMPUL.NEB NEB SCH ×4 (01:12→19:30)
[2018-07-22 02:26] VITALS: BP 126/74
[2018-07-22] MEDS: METOCLOPRAMIDE HCL 10 MG/10 ML UDC GT SCH ×3 (05:00→21:27)
[2018-07-22 06:12] VITALS: BP 130/69
[2018-07-22] MEDS: ACIDOPHILUS/BULGARICUS 1 EACH TAB.CHEW GT SCH ×2 (09:20→21:26)
[2018-07-22] MEDS: DOCUSATE SODIUM LIQ 100 MG/10 ML UDC GT SCH (09:20)
[2018-07-22] MEDS: MAGNESIUM OXIDE 400 MG TABLET GT SCH (09:20)
[2018-07-22] MEDS: MULTIVIT W/MINERALS 1 TAB TABLET GT SCH (09:21)
[2018-07-22] MEDS: ASCORBIC ACID 500 MG TABLET GT SCH (09:21)
[2018-07-22] MEDS: PROSTAT (PYXIS) 30 ML UDC GT SCH ×2 (09:21→17:22)
[2018-07-22] MEDS: TRAMADOL HCL 50 MG TABLET GT SCH ×2 (09:21→21:28)
[2018-07-22] MEDS: ZINC SULFATE 220 MG CAPSULE GT SCH (09:21)
[2018-07-22] MEDS: AMLODIPINE BESYLATE 5 MG TABLET GT SCH (09:21)
[2018-07-22] MEDS: METOPROLOL TARTRATE 25 MG TABLET GT SCH ×2 (09:23→21:27)
[2018-07-22] MEDS: HYDROGEN PEROXIDE 480 ML BOTTLE TP SCH ×2 (10:00→21:28)
[2018-07-22] MEDS: Z GUARD REMEDY 4 OZ OINT TP SCH ×2 (10:00→21:28)
[2018-07-22] MEDS: VITS A AND D/WHITE PET/LANOLIN 5 GM PACKET TP SCH ×2 (10:00→21:29)
[2018-07-22 10:57] VITALS: BP 137/71
[2018-07-22 12:00] VITALS: BP 125/76
--- NOTE | 2018-07-22 17:45 | NUR ---
Informed RESEARCH PHARMACIST Beatrice Krishnamurthy that pt has already completed her IV antibiotics. She said she will speak with Dr Aguirre regarding pt's isolation.
[2018-07-22 19:01] VITALS: BP 123/78
[2018-07-22 20:18] VITALS: BP 126/92
[2018-07-22] MEDS: SENNOSIDES 8.6 MG TABLET GT SCH (21:29)
[2018-07-22] MEDS: INSULIN DETEMIR 100 UNIT/ML CARTRIDGE SQ SCH (21:30)
[2018-07-23] MEDS: IPRATROPIUM NEB FS 0.5 MG/2.5 ML AMPUL.NEB NEB SCH ×4 (01:41→19:53)
[2018-07-23 02:29] VITALS: BP 130/76
[2018-07-23] MEDS: METOCLOPRAMIDE HCL 10 MG/10 ML UDC GT SCH ×3 (05:33→21:17)
[2018-07-23] MEDS: BLOOD SUGAR DIAGNOSTIC 1 EACH STRIP IN SCH ×4 (05:33→23:44)
[2018-07-23] MEDS: INSULIN REGULAR, HUMAN 100 UNIT/ML 3 ML VIAL SQ PRN ×4 (05:34→23:45)
[2018-07-23 06:07] VITALS: BP 133/69
[2018-07-23 08:05] VITALS: BP 127/68
[2018-07-23] MEDS: MULTIVIT W/MINERALS 1 TAB TABLET GT SCH (09:00)
[2018-07-23] MEDS: MAGNESIUM OXIDE 400 MG TABLET GT SCH (09:00)
[2018-07-23] MEDS: Z GUARD REMEDY 4 OZ OINT TP SCH ×2 (09:00→21:25)
[2018-07-23] MEDS: ZINC SULFATE 220 MG CAPSULE GT SCH (09:00)
[2018-07-23] MEDS: METOPROLOL TARTRATE 25 MG TABLET GT SCH ×2 (09:00→21:17)
[2018-07-23] MEDS: TRAMADOL HCL 50 MG TABLET GT SCH ×2 (09:00→21:18)
[2018-07-23] MEDS: AMLODIPINE BESYLATE 5 MG TABLET GT SCH (09:00)
[2018-07-23] MEDS: ACIDOPHILUS/BULGARICUS 1 EACH TAB.CHEW GT SCH ×2 (09:00→21:17)
[2018-07-23] MEDS: HYDROGEN PEROXIDE 480 ML BOTTLE TP SCH ×2 (09:00→21:25)
[2018-07-23] MEDS: ASCORBIC ACID 500 MG TABLET GT SCH (09:00)
[2018-07-23] MEDS: VITS A AND D/WHITE PET/LANOLIN 5 GM PACKET TP SCH ×2 (09:00→21:26)
[2018-07-23] MEDS: DOCUSATE SODIUM LIQ 100 MG/10 ML UDC GT SCH (09:00)
[2018-07-23] MEDS: PROSTAT (PYXIS) 30 ML UDC GT SCH ×2 (09:00→17:48)
[2018-07-23 15:37] VITALS: BP 127/68
--- NOTE | 2018-07-23 15:38 | NUR ---
Received a new order from Dr. Aguirre to collect wound culture on left foot 1st metatarsal, for clearance of MRSA & acininectobacter baunannii, order carried out and responsible libertarian aware.
[2018-07-23 18:56] VITALS: BP 122/62
[2018-07-23 20:23] VITALS: BP 140/74
[2018-07-23] MEDS: SENNOSIDES 8.6 MG TABLET GT SCH (21:19)
[2018-07-23] MEDS: INSULIN DETEMIR 100 UNIT/ML CARTRIDGE SQ SCH (21:26)
[2018-07-24 00:20] VITALS: BP 147/75
[2018-07-24] MEDS: IPRATROPIUM NEB FS 0.5 MG/2.5 ML AMPUL.NEB NEB SCH ×4 (02:17→19:49)
[2018-07-24] MEDS: METOCLOPRAMIDE HCL 10 MG/10 ML UDC GT SCH ×3 (05:00→20:32)
[2018-07-24] MEDS: BLOOD SUGAR DIAGNOSTIC 1 EACH STRIP IN SCH ×3 (06:21→17:34)
[2018-07-24] MEDS: INSULIN REGULAR, HUMAN 100 UNIT/ML 3 ML VIAL SQ PRN ×3 (06:23→17:34)
[2018-07-24] MEDS: GLUCERNA 1.2 1,000 ML BOTTLE GT PRN (06:23)
[2018-07-24 06:37] VITALS: BP 131/77
[2018-07-24 07:58] VITALS: BP 116/67
[2018-07-24] MEDS: DOCUSATE SODIUM LIQ 100 MG/10 ML UDC GT SCH (09:42)
[2018-07-24] MEDS: ACIDOPHILUS/BULGARICUS 1 EACH TAB.CHEW GT SCH ×2 (09:42→20:31)
[2018-07-24] MEDS: TRAMADOL HCL 50 MG TABLET GT SCH ×2 (09:43→20:33)
[2018-07-24] MEDS: AMLODIPINE BESYLATE 5 MG TABLET GT SCH (09:43)
[2018-07-24] MEDS: ASCORBIC ACID 500 MG TABLET GT SCH (09:43)
[2018-07-24] MEDS: METOPROLOL TARTRATE 25 MG TABLET GT SCH ×2 (09:43→20:32)
[2018-07-24] MEDS: PROSTAT (PYXIS) 30 ML UDC GT SCH ×2 (09:43→17:34)
[2018-07-24] MEDS: ZINC SULFATE 220 MG CAPSULE GT SCH (09:43)
[2018-07-24] MEDS: MULTIVIT W/MINERALS 1 TAB TABLET GT SCH (09:43)
[2018-07-24] MEDS: MAGNESIUM OXIDE 400 MG TABLET GT SCH (09:43)
--- NOTE | 2018-07-24 09:49 | NUR ---
RT NOTE PT RECEIVED ON [facility] VENT ON THE FOLLOWING NOTED SETTINGS. NO RESP DISTRESS OR SOB NOTED. PT SX'D BREATHING TX GIVEN, NO ADVERSE REACTIONS NOTED. VENT IS PLUGGED INTO RED OUTLET, ALARMS ARE ON AND AUDIBLE. AMBU BAG AND SPARE TRACH ARE AT BEDSIDE. WILL CONT TO MONITOR PT. BREATHING TX WAS GIVEN LATE DUE TO ATTENDANCE FOR RAPID RESPONSE CALLED IN [facility] 118. Addendum: 07/24/18 at 0963 by MEI SANTANA RT Amended: Links added.
[2018-07-24] MEDS: HYDROGEN PEROXIDE 480 ML BOTTLE TP SCH ×2 (10:15→20:33)
[2018-07-24] MEDS: Z GUARD REMEDY 4 OZ OINT TP SCH ×2 (10:15→20:33)
[2018-07-24] MEDS: VITS A AND D/WHITE PET/LANOLIN 5 GM PACKET TP SCH ×2 (10:15→20:33)
[2018-07-24 12:59] VITALS: BP 140/80
[2018-07-24 18:54] VITALS: BP 137/65
[2018-07-24 19:56] VITALS: BP 134/80
[2018-07-24] MEDS: INSULIN DETEMIR 100 UNIT/ML CARTRIDGE SQ SCH (22:00)
[2018-07-24] MEDS: SENNOSIDES 8.6 MG TABLET GT SCH (22:00)
[2018-07-25 00:55] VITALS: BP 120/61
[2018-07-25] MEDS: IPRATROPIUM NEB FS 0.5 MG/2.5 ML AMPUL.NEB NEB SCH ×4 (00:56→19:32)
[2018-07-25] MEDS: BLOOD SUGAR DIAGNOSTIC 1 EACH STRIP IN SCH ×5 (00:57→23:40)
[2018-07-25] MEDS: INSULIN REGULAR, HUMAN 100 UNIT/ML 3 ML VIAL SQ PRN ×5 (00:59→23:41)
[2018-07-25] MEDS: METOCLOPRAMIDE HCL 10 MG/10 ML UDC GT SCH ×3 (05:49→21:21)
[2018-07-25 06:20] VITALS: BP 119/59
[2018-07-25 08:09] VITALS: BP 155/61
[2018-07-25] MEDS: ACIDOPHILUS/BULGARICUS 1 EACH TAB.CHEW GT SCH ×2 (09:20→21:20)
[2018-07-25] MEDS: AMLODIPINE BESYLATE 5 MG TABLET GT SCH (09:20)
[2018-07-25] MEDS: PROSTAT (PYXIS) 30 ML UDC GT SCH ×2 (09:20→17:41)
[2018-07-25] MEDS: MAGNESIUM OXIDE 400 MG TABLET GT SCH (09:20)
[2018-07-25] MEDS: MULTIVIT W/MINERALS 1 TAB TABLET GT SCH (09:20)
[2018-07-25] MEDS: DOCUSATE SODIUM LIQ 100 MG/10 ML UDC GT SCH (09:20)
[2018-07-25] MEDS: METOPROLOL TARTRATE 25 MG TABLET GT SCH ×2 (09:20→21:20)
[2018-07-25] MEDS: ASCORBIC ACID 500 MG TABLET GT SCH (09:21)
[2018-07-25] MEDS: TRAMADOL HCL 50 MG TABLET GT SCH ×2 (09:21→21:21)
[2018-07-25] MEDS: ZINC SULFATE 220 MG CAPSULE GT SCH (09:21)
[2018-07-25] MEDS: VITS A AND D/WHITE PET/LANOLIN 5 GM PACKET TP SCH ×2 (10:00→21:21)
[2018-07-25] MEDS: Z GUARD REMEDY 4 OZ OINT TP SCH ×2 (10:00→21:21)
[2018-07-25] MEDS: HYDROGEN PEROXIDE 480 ML BOTTLE TP SCH ×2 (10:00→21:21)
[2018-07-25 12:00] VITALS: BP 133/70
[2018-07-25] MEDS: GLUCERNA 1.2 1,000 ML BOTTLE GT PRN (12:56)
--- NOTE | 2018-07-25 14:16 | NUR ---
RT NOTE PT MECHANICALLY VENTILATED VIA SHILEY 8 CUFFED TRACHEOSTOMY TUBE. CUFF INFLATED. TRACH TUBE MIDLINE AND SECURE. VENTILATOR SETTINGS PRESCRIBED. ALARMS SET PER PROTOCOL AND AUDIBLE. VENT PLUGGED IN TO RED OUTLET. AMBU BAG AT BED SIDE. NO DISTRESS NOTED. Addendum: 07/25/18 at 1417 by JYOTHI RICHARDS RT Amended: Links added.
--- NOTE | 2018-07-25 15:22 | NUR ---
Informed CRAP GAME BOX PERSON Baetrice Krishnamurthy that preliminary culture result of L foot is available showing slight growth of gram negative rods and Staphylococcus Aureus. NNO given.
[2018-07-25 18:00] VITALS: BP 140/75
[2018-07-25 20:07] VITALS: BP 137/68
[2018-07-25] MEDS: SENNOSIDES 8.6 MG TABLET GT SCH (21:21)
[2018-07-25] MEDS: INSULIN DETEMIR 100 UNIT/ML CARTRIDGE SQ SCH (21:29)
[2018-07-26 00:20] VITALS: BP 145/79
[2018-07-26] MEDS: IPRATROPIUM NEB FS 0.5 MG/2.5 ML AMPUL.NEB NEB SCH ×4 (01:40→19:26)
[2018-07-26] MEDS: METOCLOPRAMIDE HCL 10 MG/10 ML UDC GT SCH ×3 (05:00→21:24)
[2018-07-26] MEDS: BLOOD SUGAR DIAGNOSTIC 1 EACH STRIP IN SCH ×4 (06:04→23:49)
[2018-07-26] MEDS: INSULIN REGULAR, HUMAN 100 UNIT/ML 3 ML VIAL SQ PRN ×4 (06:06→23:49)
[2018-07-26 06:52] VITALS: BP 126/66
[2018-07-26 07:36] VITALS: BP 125/80
[2018-07-26] MEDS: MAGNESIUM OXIDE 400 MG TABLET GT SCH (09:00)
[2018-07-26] MEDS: MULTIVIT W/MINERALS 1 TAB TABLET GT SCH (09:00)
[2018-07-26] MEDS: DOCUSATE SODIUM LIQ 100 MG/10 ML UDC GT SCH (09:00)
[2018-07-26] MEDS: METOPROLOL TARTRATE 25 MG TABLET GT SCH ×2 (09:00→21:24)
[2018-07-26] MEDS: ZINC SULFATE 220 MG CAPSULE GT SCH (09:00)
[2018-07-26] MEDS: PROSTAT (PYXIS) 30 ML UDC GT SCH ×2 (09:00→17:41)
[2018-07-26] MEDS: ASCORBIC ACID 500 MG TABLET GT SCH (09:00)
[2018-07-26] MEDS: AMLODIPINE BESYLATE 5 MG TABLET GT SCH (09:00)
[2018-07-26] MEDS: ACIDOPHILUS/BULGARICUS 1 EACH TAB.CHEW GT SCH ×2 (09:00→21:23)
[2018-07-26] MEDS: TRAMADOL HCL 50 MG TABLET GT SCH ×2 (10:00→21:24)
--- NOTE | 2018-07-26 10:14 | NUR ---
Seen and examined by AVERY Dodd, ID. Informed her of the preliminary L foot wound culture result showing gram negative rods and Staph Aureus. According to Carole she will review the result.
[2018-07-26] MEDS: VITS A AND D/WHITE PET/LANOLIN 5 GM PACKET TP SCH ×2 (10:30→21:24)
[2018-07-26] MEDS: HYDROGEN PEROXIDE 480 ML BOTTLE TP SCH ×2 (10:30→21:24)
[2018-07-26] MEDS: Z GUARD REMEDY 4 OZ OINT TP SCH ×2 (10:30→21:24)
[2018-07-26 12:00] VITALS: BP 138/65
--- NOTE | 2018-07-26 15:40 | NUR ---
Reported final wound culture of the L foot which is positive for Staph Aureus-MRSA and Acinetobacter Baumannii to BILINGUAL TEACHER Carole Dodd. She said that since the wound is not draining and patient remained afebrile, will watch it for now. V/S 99.6, 78, 138/65, 16. BS 203 @ 1200.
[2018-07-26] MEDS: GLUCERNA 1.2 1,000 ML BOTTLE GT PRN (17:41)
[2018-07-26] MEDS: MAGNESIUM HYDROXIDE 30 ML UDC GT PRN (17:41)
[2018-07-26 18:44] VITALS: BP 136/74
--- NOTE | 2018-07-26 19:26 | NUR ---
Noted resident with temperature 99.6 F at around 1200, no respiratory distress at this time, calm and relax, cooling measures provided, at 1700 temperature 98.7 F, endorsed to next shift to continue monitor temperature.
[2018-07-26 19:46] VITALS: BP 134/59
[2018-07-26] MEDS: SENNOSIDES 8.6 MG TABLET GT SCH (21:24)
[2018-07-26] MEDS: INSULIN DETEMIR 100 UNIT/ML CARTRIDGE SQ SCH (21:25)
[2018-07-27 00:30] VITALS: BP 142/69
[2018-07-27] MEDS: IPRATROPIUM NEB FS 0.5 MG/2.5 ML AMPUL.NEB NEB SCH ×4 (00:56→19:16)
[2018-07-27] MEDS: METOCLOPRAMIDE HCL 10 MG/10 ML UDC GT SCH ×3 (05:16→21:11)
[2018-07-27] MEDS: BLOOD SUGAR DIAGNOSTIC 1 EACH STRIP IN SCH ×4 (06:04→23:57)
[2018-07-27] MEDS: INSULIN REGULAR, HUMAN 100 UNIT/ML 3 ML VIAL SQ PRN ×4 (06:05→23:58)
[2018-07-27 06:36] VITALS: BP 135/71
[2018-07-27 07:56] VITALS: BP 116/66
[2018-07-27] MEDS: DOCUSATE SODIUM LIQ 100 MG/10 ML UDC GT SCH (09:00)
[2018-07-27] MEDS: ZINC SULFATE 220 MG CAPSULE GT SCH (09:00)
[2018-07-27] MEDS: Z GUARD REMEDY 4 OZ OINT TP SCH ×2 (09:00→21:12)
[2018-07-27] MEDS: VITS A AND D/WHITE PET/LANOLIN 5 GM PACKET TP SCH ×2 (09:00→21:12)
[2018-07-27] MEDS: MAGNESIUM OXIDE 400 MG TABLET GT SCH (09:00)
[2018-07-27] MEDS: PROSTAT (PYXIS) 30 ML UDC GT SCH ×2 (09:00→17:00)
[2018-07-27] MEDS: HYDROGEN PEROXIDE 480 ML BOTTLE TP SCH ×2 (09:00→21:11)
[2018-07-27] MEDS: ACIDOPHILUS/BULGARICUS 1 EACH TAB.CHEW GT SCH ×2 (09:00→21:10)
[2018-07-27] MEDS: ASCORBIC ACID 500 MG TABLET GT SCH (09:00)
[2018-07-27] MEDS: METOPROLOL TARTRATE 25 MG TABLET GT SCH ×2 (09:00→21:11)
[2018-07-27] MEDS: AMLODIPINE BESYLATE 5 MG TABLET GT SCH (09:00)
[2018-07-27] MEDS: TRAMADOL HCL 50 MG TABLET GT SCH ×2 (09:00→21:11)
[2018-07-27] MEDS: MULTIVIT W/MINERALS 1 TAB TABLET GT SCH (09:00)
--- NOTE | 2018-07-27 11:00 | NUR ---
Received a call from [facility] that final culture of the L foot wound shows VRE aside from MRSA and Acitenobacter Baumannii. Relayed the information to ENGINE REPAIR SUPERVISOR Carole Dodd. NNO given at this time, patient asymptomatic and L foot wound has no drainage, no s/s of infection. To monitor for any change in condition.
[2018-07-27 15:09] VITALS: BP 132/71
--- NOTE | 2018-07-27 17:40 | NUR ---
Spoke with resident's daughter Jennifer and updated her of patient's current condition. She was made aware of wound culture result showing VRE, MRSA and A. Baumannii and will remain on isolation. Patient is not being treated because she is asymptomatic and L foot wound has no drainage, the wound is almost close, no erythema and no s/s of infection. Overall patient is stable. Daughter appreciated the update given.
[2018-07-27 18:31] VITALS: BP 130/70
[2018-07-27 20:04] VITALS: BP 139/66
--- NOTE | 2018-07-27 21:00 | NUR ---
RT PATIENT WAS RECEIVED ON CONTINUOUS VENT SUPPORT ON NOTED VENT SETTINGS. HHN INLINE TREATMENT WAS GIVEN, NO ADVERSE REACTION NOTED ,PRN SUCTION WAS DONE. TRACH TUBE PATENT AND SECURED. ALARMS SET PER PROTOCOL AND AUDIBLE. LEXIE ROBB AT [facility]. WILL CONTINUE TO MONITOR PATIENT Addendum: 07/27/18 at 2101 by NYA RICHARDS RT Amended: Links added.
[2018-07-27] MEDS: INSULIN DETEMIR 100 UNIT/ML CARTRIDGE SQ SCH (21:12)
[2018-07-27] MEDS: SENNOSIDES 8.6 MG TABLET GT SCH (21:12)
[2018-07-28] MEDS: IPRATROPIUM NEB FS 0.5 MG/2.5 ML AMPUL.NEB NEB SCH ×4 (01:17→19:45)
[2018-07-28 03:09] VITALS: BP 122/74
[2018-07-28] MEDS: METOCLOPRAMIDE HCL 10 MG/10 ML UDC GT SCH ×3 (05:50→21:28)
[2018-07-28] MEDS: BLOOD SUGAR DIAGNOSTIC 1 EACH STRIP IN SCH ×3 (05:50→18:14)
[2018-07-28 06:02] VITALS: BP 134/78
[2018-07-28 08:01] VITALS: BP 136/67
[2018-07-28] MEDS: Z GUARD REMEDY 4 OZ OINT TP SCH ×3 (09:00→21:29)
[2018-07-28] MEDS: ZINC SULFATE 220 MG CAPSULE GT SCH (09:00)
[2018-07-28] MEDS: MULTIVIT W/MINERALS 1 TAB TABLET GT SCH (09:00)
[2018-07-28] MEDS: MAGNESIUM OXIDE 400 MG TABLET GT SCH (09:00)
[2018-07-28] MEDS: DOCUSATE SODIUM LIQ 100 MG/10 ML UDC GT SCH (09:00)
[2018-07-28] MEDS: PROSTAT (PYXIS) 30 ML UDC GT SCH ×2 (09:00→17:00)
[2018-07-28] MEDS: VITS A AND D/WHITE PET/LANOLIN 5 GM PACKET TP SCH ×2 (09:00→21:29)
[2018-07-28] MEDS: AMLODIPINE BESYLATE 5 MG TABLET GT SCH (09:00)
[2018-07-28] MEDS: TRAMADOL HCL 50 MG TABLET GT SCH ×2 (09:00→21:29)
[2018-07-28] MEDS: METOPROLOL TARTRATE 25 MG TABLET GT SCH ×2 (09:00→21:28)
[2018-07-28] MEDS: ACIDOPHILUS/BULGARICUS 1 EACH TAB.CHEW GT SCH ×2 (09:00→21:28)
[2018-07-28] MEDS: HYDROGEN PEROXIDE 480 ML BOTTLE TP SCH ×2 (09:00→21:29)
[2018-07-28] MEDS: ASCORBIC ACID 500 MG TABLET GT SCH (09:00)
--- NOTE | 2018-07-28 11:46 | NUR ---
SW communicated to pt. daughter about IDT mtg this Saturday08/01/2018
[2018-07-28] MEDS: INSULIN REGULAR, HUMAN 100 UNIT/ML 3 ML VIAL SQ PRN ×2 (11:59→18:16)
[2018-07-28 14:21] VITALS: BP 128/71
[2018-07-28] MEDS: GLUCERNA 1.2 1,000 ML BOTTLE GT PRN (15:20)
--- NOTE | 2018-07-28 18:35 | NUR ---
Seen and examined by Maria Fernanda Mata NP, no new order given.
[2018-07-28 19:17] VITALS: BP 130/72
[2018-07-28 20:14] VITALS: BP 131/69
[2018-07-28] MEDS: SENNOSIDES 8.6 MG TABLET GT SCH (21:29)
[2018-07-28] MEDS: INSULIN DETEMIR 100 UNIT/ML CARTRIDGE SQ SCH (21:30)
[2018-07-29 00:23] VITALS: BP 133/76
[2018-07-29] MEDS: BLOOD SUGAR DIAGNOSTIC 1 EACH STRIP IN SCH ×4 (00:23→17:45)
[2018-07-29] MEDS: INSULIN REGULAR, HUMAN 100 UNIT/ML 3 ML VIAL SQ PRN ×4 (00:24→17:47)
[2018-07-29] MEDS: IPRATROPIUM NEB FS 0.5 MG/2.5 ML AMPUL.NEB NEB SCH ×4 (01:03→19:37)
[2018-07-29] MEDS: METOCLOPRAMIDE HCL 10 MG/10 ML UDC GT SCH ×3 (05:00→21:32)
[2018-07-29 06:04] VITALS: BP 129/74
[2018-07-29 07:55] VITALS: BP 122/73
[2018-07-29] MEDS: ACIDOPHILUS/BULGARICUS 1 EACH TAB.CHEW GT SCH ×2 (08:49→21:31)
[2018-07-29] MEDS: METOPROLOL TARTRATE 25 MG TABLET GT SCH ×2 (08:49→21:32)
[2018-07-29] MEDS: DOCUSATE SODIUM LIQ 100 MG/10 ML UDC GT SCH (08:49)
[2018-07-29] MEDS: MULTIVIT W/MINERALS 1 TAB TABLET GT SCH (08:49)
[2018-07-29] MEDS: MAGNESIUM OXIDE 400 MG TABLET GT SCH (08:49)
[2018-07-29] MEDS: AMLODIPINE BESYLATE 5 MG TABLET GT SCH (08:49)
[2018-07-29] MEDS: PROSTAT (PYXIS) 30 ML UDC GT SCH ×2 (08:49→17:07)
[2018-07-29] MEDS: TRAMADOL HCL 50 MG TABLET GT SCH ×2 (08:50→21:32)
[2018-07-29] MEDS: ZINC SULFATE 220 MG CAPSULE GT SCH (08:50)
[2018-07-29] MEDS: ASCORBIC ACID 500 MG TABLET GT SCH (08:50)
[2018-07-29] MEDS: HYDROGEN PEROXIDE 480 ML BOTTLE TP SCH ×2 (08:50→21:32)
[2018-07-29] MEDS: Z GUARD REMEDY 4 OZ OINT TP SCH ×4 (08:50→21:33)
[2018-07-29] MEDS: VITS A AND D/WHITE PET/LANOLIN 5 GM PACKET TP SCH ×2 (08:50→21:33)
--- NOTE | 2018-07-29 09:00 | NUR ---
Seen and examined by Dr. Agarwal, no new order given.
--- NOTE | 2018-07-29 11:23 | NUR ---
YNES called pt. daughter today. Daughter Daily will be attending the idt mtg this Saturday03/25/19
[2018-07-29] MEDS: GLUCERNA 1.2 1,000 ML BOTTLE GT PRN (14:18)
[2018-07-29 14:32] VITALS: BP 128/70
[2018-07-29 18:25] VITALS: BP 135/74
[2018-07-29 20:15] VITALS: BP 129/61
[2018-07-29] MEDS: INSULIN DETEMIR 100 UNIT/ML CARTRIDGE SQ SCH (21:33)
[2018-07-29] MEDS: SENNOSIDES 8.6 MG TABLET GT SCH (21:33)
[2018-07-30 00:23] VITALS: BP 129/76
[2018-07-30] MEDS: BLOOD SUGAR DIAGNOSTIC 1 EACH STRIP IN SCH ×4 (00:24→17:13)
[2018-07-30] MEDS: INSULIN REGULAR, HUMAN 100 UNIT/ML 3 ML VIAL SQ PRN ×4 (00:25→17:11)
[2018-07-30] MEDS: IPRATROPIUM NEB FS 0.5 MG/2.5 ML AMPUL.NEB NEB SCH ×4 (00:44→19:39)
[2018-07-30] MEDS: METOCLOPRAMIDE HCL 10 MG/10 ML UDC GT SCH ×3 (05:48→21:17)
[2018-07-30 06:08] VITALS: BP 132/74
[2018-07-30 07:54] VITALS: BP 123/56
[2018-07-30] MEDS: DOCUSATE SODIUM LIQ 100 MG/10 ML UDC GT SCH (09:47)
[2018-07-30] MEDS: ACIDOPHILUS/BULGARICUS 1 EACH TAB.CHEW GT SCH ×2 (09:47→21:17)
[2018-07-30] MEDS: PROSTAT (PYXIS) 30 ML UDC GT SCH ×2 (09:48→16:42)
[2018-07-30] MEDS: MAGNESIUM OXIDE 400 MG TABLET GT SCH (09:48)
[2018-07-30] MEDS: AMLODIPINE BESYLATE 5 MG TABLET GT SCH (09:48)
[2018-07-30] MEDS: METOPROLOL TARTRATE 25 MG TABLET GT SCH ×2 (09:48→21:17)
[2018-07-30] MEDS: MULTIVIT W/MINERALS 1 TAB TABLET GT SCH (09:48)
[2018-07-30] MEDS: ZINC SULFATE 220 MG CAPSULE GT SCH (09:49)
[2018-07-30] MEDS: ASCORBIC ACID 500 MG TABLET GT SCH (09:49)
[2018-07-30] MEDS: TRAMADOL HCL 50 MG TABLET GT SCH ×2 (09:49→21:18)
[2018-07-30] MEDS: Z GUARD REMEDY 4 OZ OINT TP SCH ×4 (09:51→21:18)
[2018-07-30] MEDS: HYDROGEN PEROXIDE 480 ML BOTTLE TP SCH ×2 (09:51→21:18)
[2018-07-30] MEDS: VITS A AND D/WHITE PET/LANOLIN 5 GM PACKET TP SCH ×2 (09:52→21:18)
[2018-07-30 12:00] VITALS: BP 124/78
[2018-07-30 18:00] VITALS: BP 116/68
[2018-07-30 20:03] VITALS: BP 129/59
[2018-07-30] MEDS: SENNOSIDES 8.6 MG TABLET GT SCH (21:18)
[2018-07-30] MEDS: MAGNESIUM HYDROXIDE 30 ML UDC GT PRN (22:00)
[2018-07-30] MEDS: INSULIN DETEMIR 100 UNIT/ML CARTRIDGE SQ SCH (22:07)
[2018-07-30] MEDS: GLUCERNA 1.2 1,000 ML BOTTLE GT PRN (22:12)
[2018-07-31 00:18] VITALS: BP 135/58
[2018-07-31] MEDS: BLOOD SUGAR DIAGNOSTIC 1 EACH STRIP IN SCH ×5 (00:36→23:46)
[2018-07-31] MEDS: INSULIN REGULAR, HUMAN 100 UNIT/ML 3 ML VIAL SQ PRN ×5 (00:38→23:47)
[2018-07-31] MEDS: IPRATROPIUM NEB FS 0.5 MG/2.5 ML AMPUL.NEB NEB SCH ×4 (02:04→19:29)
[2018-07-31] MEDS: METOCLOPRAMIDE HCL 10 MG/10 ML UDC GT SCH ×3 (05:46→21:10)
[2018-07-31 06:16] VITALS: BP 131/62
[2018-07-31] MEDS: BISACODYL SUPP (10 MG) 10 MG/SUPP.RECT SUPP.RECT RC PRN (06:39)
[2018-07-31 07:39] VITALS: BP 115/68
[2018-07-31] MEDS: METOPROLOL TARTRATE 25 MG TABLET GT SCH ×2 (09:38→21:10)
[2018-07-31] MEDS: ACIDOPHILUS/BULGARICUS 1 EACH TAB.CHEW GT SCH ×2 (09:38→21:10)
[2018-07-31] MEDS: DOCUSATE SODIUM LIQ 100 MG/10 ML UDC GT SCH (09:38)
[2018-07-31] MEDS: ZINC SULFATE 220 MG CAPSULE GT SCH (09:39)
[2018-07-31] MEDS: PROSTAT (PYXIS) 30 ML UDC GT SCH ×2 (09:39→17:29)
[2018-07-31] MEDS: ASCORBIC ACID 500 MG TABLET GT SCH (09:39)
[2018-07-31] MEDS: AMLODIPINE BESYLATE 5 MG TABLET GT SCH (09:39)
[2018-07-31] MEDS: TRAMADOL HCL 50 MG TABLET GT SCH ×2 (09:39→21:12)
[2018-07-31] MEDS: MAGNESIUM OXIDE 400 MG TABLET GT SCH (09:51)
[2018-07-31] MEDS: MULTIVIT W/MINERALS 1 TAB TABLET GT SCH (09:51)
[2018-07-31] MEDS: HYDROGEN PEROXIDE 480 ML BOTTLE TP SCH ×2 (10:15→21:12)
[2018-07-31] MEDS: VITS A AND D/WHITE PET/LANOLIN 5 GM PACKET TP SCH ×2 (10:15→21:12)
[2018-07-31] MEDS: Z GUARD REMEDY 4 OZ OINT TP SCH ×4 (10:15→21:12)
[2018-07-31 12:00] VITALS: BP 133/78
[2018-07-31 18:44] VITALS: BP 142/84
[2018-07-31] MEDS: GLUCERNA 1.2 1,000 ML BOTTLE GT PRN (18:57)
[2018-07-31 19:46] VITALS: BP 139/78
[2018-07-31] MEDS: SENNOSIDES 8.6 MG TABLET GT SCH (21:12)
[2018-07-31] MEDS: INSULIN DETEMIR 100 UNIT/ML CARTRIDGE SQ SCH (21:13)
[2018-08-01] VITALS (7 sets, daily range): BP systolic 84–145; BP diastolic 66–86
[2018-08-01] MEDS: IPRATROPIUM NEB FS 0.5 MG/2.5 ML AMPUL.NEB NEB SCH ×4 (01:20→20:37)
[2018-08-01] MEDS: METOCLOPRAMIDE HCL 10 MG/10 ML UDC GT SCH ×3 (05:14→20:40)
[2018-08-01] MEDS: BLOOD SUGAR DIAGNOSTIC 1 EACH STRIP IN SCH ×3 (05:32→17:54)
[2018-08-01] MEDS: GLUCERNA 1.2 1,000 ML BOTTLE GT PRN (05:32)
[2018-08-01] MEDS: INSULIN REGULAR, HUMAN 100 UNIT/ML 3 ML VIAL SQ PRN ×3 (05:33→17:58)
[2018-08-01] MEDS: DOCUSATE SODIUM LIQ 100 MG/10 ML UDC GT SCH (08:28)
[2018-08-01] MEDS: ACIDOPHILUS/BULGARICUS 1 EACH TAB.CHEW GT SCH ×2 (08:28→20:40)
[2018-08-01] MEDS: MAGNESIUM OXIDE 400 MG TABLET GT SCH (08:28)
[2018-08-01] MEDS: METOPROLOL TARTRATE 25 MG TABLET GT SCH ×2 (08:28→20:40)
[2018-08-01] MEDS: PROSTAT (PYXIS) 30 ML UDC GT SCH ×2 (08:29→17:15)
[2018-08-01] MEDS: MULTIVIT W/MINERALS 1 TAB TABLET GT SCH (08:29)
[2018-08-01] MEDS: AMLODIPINE BESYLATE 5 MG TABLET GT SCH (08:29)
[2018-08-01] MEDS: ASCORBIC ACID 500 MG TABLET GT SCH (08:29)
[2018-08-01] MEDS: TRAMADOL HCL 50 MG TABLET GT SCH ×2 (08:29→20:40)
[2018-08-01] MEDS: ZINC SULFATE 220 MG CAPSULE GT SCH (08:29)
[2018-08-01] MEDS: HYDROGEN PEROXIDE 480 ML BOTTLE TP SCH ×2 (09:00→20:40)
[2018-08-01] MEDS: VITS A AND D/WHITE PET/LANOLIN 5 GM PACKET TP SCH ×2 (09:00→20:41)
[2018-08-01] MEDS: Z GUARD REMEDY 4 OZ OINT TP SCH ×4 (09:00→20:41)
--- NOTE | 2018-08-01 15:20 | NUR ---
INTERDISCIPLINARY TEAM CONFERENCE (IDT) was held today. Resident's daughter Daily attended today's IDT meeting. Dr. Agarwal and the interdisciplinary team reviewed the current plan of care in detail. Orders as well as treatment and medications were reviewed. No new orders were given.
[2018-08-01] MEDS: SENNOSIDES 8.6 MG TABLET GT SCH (21:23)
[2018-08-01] MEDS: INSULIN DETEMIR 100 UNIT/ML CARTRIDGE SQ SCH (21:23)
[2018-08-02 00:07] VITALS: BP 136/69
[2018-08-02] MEDS: INSULIN REGULAR, HUMAN 100 UNIT/ML 3 ML VIAL SQ PRN ×5 (00:08→23:24)
[2018-08-02] MEDS: BLOOD SUGAR DIAGNOSTIC 1 EACH STRIP IN SCH ×5 (00:08→23:23)
[2018-08-02] MEDS: IPRATROPIUM NEB FS 0.5 MG/2.5 ML AMPUL.NEB NEB SCH ×4 (01:46→20:27)
[2018-08-02] MEDS: MAGNESIUM HYDROXIDE 30 ML UDC GT PRN (05:36)
[2018-08-02] MEDS: GLUCERNA 1.2 1,000 ML BOTTLE GT PRN (05:36)
[2018-08-02] MEDS: METOCLOPRAMIDE HCL 10 MG/10 ML UDC GT SCH ×3 (05:36→21:17)
--- NOTE | 2018-08-02 05:45 | NUR ---
pt rec'd trached on [facility] vent on ac mode. no resp distress or sob noted. sx'd for mod amt of yellow secretions. alarms are set and audible. vent plugged into red outlet. ambu bag bedside. will continue to monitor Addendum: 08/02/18 at 0545 by TALA YAO RT Amended: Links added.
[2018-08-02 06:30] VITALS: BP 145/73
[2018-08-02 07:57] VITALS: BP 142/85
[2018-08-02] MEDS: AMLODIPINE BESYLATE 5 MG TABLET GT SCH (09:00)
[2018-08-02] MEDS: METOPROLOL TARTRATE 25 MG TABLET GT SCH ×2 (09:00→21:17)
[2018-08-02] MEDS: TRAMADOL HCL 50 MG TABLET GT SCH ×2 (09:00→21:18)
[2018-08-02] MEDS: ASCORBIC ACID 500 MG TABLET GT SCH (09:00)
[2018-08-02] MEDS: DOCUSATE SODIUM LIQ 100 MG/10 ML UDC GT SCH (09:00)
[2018-08-02] MEDS: PROSTAT (PYXIS) 30 ML UDC GT SCH ×2 (09:00→17:00)
[2018-08-02] MEDS: MULTIVIT W/MINERALS 1 TAB TABLET GT SCH (09:00)
[2018-08-02] MEDS: HYDROGEN PEROXIDE 480 ML BOTTLE TP SCH ×2 (09:00→21:18)
[2018-08-02] MEDS: ACIDOPHILUS/BULGARICUS 1 EACH TAB.CHEW GT SCH ×2 (09:00→21:17)
[2018-08-02] MEDS: ZINC SULFATE 220 MG CAPSULE GT SCH (09:00)
[2018-08-02] MEDS: MAGNESIUM OXIDE 400 MG TABLET GT SCH (09:00)
[2018-08-02] MEDS: Z GUARD REMEDY 4 OZ OINT TP SCH ×4 (09:00→21:18)
[2018-08-02] MEDS: VITS A AND D/WHITE PET/LANOLIN 5 GM PACKET TP SCH ×2 (09:00→21:18)
[2018-08-02 12:00] VITALS: BP 138/80
--- NOTE | 2018-08-02 16:00 | NUR ---
RT NOTE: PATIENT RECEIVED TRACH ON MECHANICAL VENT. ALARMS VERIFIED AND AUDIBLE. SUCTIONED AND LAVAGED THICK SHIPMAN SECRETIONS. AMBU BAG AND NEW TRACH AT BEDSIDE.
[2018-08-02 18:00] VITALS: BP 140/78
[2018-08-02 20:08] VITALS: BP 136/75
[2018-08-02] MEDS: SENNOSIDES 8.6 MG TABLET GT SCH (21:18)
[2018-08-02] MEDS: INSULIN DETEMIR 100 UNIT/ML CARTRIDGE SQ SCH (21:19)
[2018-08-03 00:49] VITALS: BP 136/78
[2018-08-03] MEDS: IPRATROPIUM NEB FS 0.5 MG/2.5 ML AMPUL.NEB NEB SCH ×4 (02:15→19:30)
--- NOTE | 2018-08-03 05:13 | NUR ---
PT REC'D TRACHED ON [facility] VENT PER MD ORDERS. NO RESP DISTRESS OR SOB NOTED. SX'D FOR MOD AMT OF PALE YELLOW SECRETIONS. ALARMS ARE SET AND AUDIBLE. VENT PLUGGED INTO RED OUTLET. AMBU BAG BEDSIDE. WILL CONTINUE TO MONITOR. Addendum: 08/03/18 at 0514 by TALA YAO RT Amended: Links added.
[2018-08-03] MEDS: BLOOD SUGAR DIAGNOSTIC 1 EACH STRIP IN SCH ×3 (05:23→18:18)
[2018-08-03] MEDS: METOCLOPRAMIDE HCL 10 MG/10 ML UDC GT SCH ×3 (05:23→21:10)
[2018-08-03] MEDS: GLUCERNA 1.2 1,000 ML BOTTLE GT PRN ×2 (05:23→17:16)
[2018-08-03] MEDS: INSULIN REGULAR, HUMAN 100 UNIT/ML 3 ML VIAL SQ PRN ×3 (05:24→18:19)
[2018-08-03 06:07] VITALS: BP 143/65
[2018-08-03 08:00] VITALS: BP 125/64
--- NOTE | 2018-08-03 08:58 | NUR ---
RT PT REC'D TRACH ON [facility] VENT ON NOTED SETTINGS PER MD ORDERS. TRACH IS PATENT AND SECURED. BRAKE OPERATOR DONE. TX GIVEN WITH NO ADVERSE REACTION NOTED. SX DONE PRN. VENT PLUGGED INTO RED OUTLET. ALARMS ON AND AUDIBLE. FROY BERGER @ BEDSIDE. NO RESP DISTRESS AT THIS TIME. WILL CONTINUE TO MONITOR. Addendum: 08/03/18 at 0858 by FLORINDA TSE RT Amended: Links added.
[2018-08-03] MEDS: ACIDOPHILUS/BULGARICUS 1 EACH TAB.CHEW GT SCH ×2 (09:34→21:10)
[2018-08-03] MEDS: DOCUSATE SODIUM LIQ 100 MG/10 ML UDC GT SCH (09:34)
[2018-08-03] MEDS: MAGNESIUM OXIDE 400 MG TABLET GT SCH (09:35)
[2018-08-03] MEDS: AMLODIPINE BESYLATE 5 MG TABLET GT SCH (09:35)
[2018-08-03] MEDS: MULTIVIT W/MINERALS 1 TAB TABLET GT SCH (09:35)
[2018-08-03] MEDS: PROSTAT (PYXIS) 30 ML UDC GT SCH ×2 (09:35→17:00)
[2018-08-03] MEDS: ASCORBIC ACID 500 MG TABLET GT SCH (09:35)
[2018-08-03] MEDS: METOPROLOL TARTRATE 25 MG TABLET GT SCH ×2 (09:35→21:10)
[2018-08-03] MEDS: TRAMADOL HCL 50 MG TABLET GT SCH ×2 (09:35→21:10)
[2018-08-03] MEDS: ZINC SULFATE 220 MG CAPSULE GT SCH (09:35)
[2018-08-03] MEDS: VITS A AND D/WHITE PET/LANOLIN 5 GM PACKET TP SCH ×2 (09:36→21:11)
[2018-08-03] MEDS: HYDROGEN PEROXIDE 480 ML BOTTLE TP SCH ×2 (09:36→21:11)
[2018-08-03] MEDS: Z GUARD REMEDY 4 OZ OINT TP SCH ×4 (09:36→21:11)
[2018-08-03 17:46] VITALS: BP 136/69
[2018-08-03 18:40] VITALS: BP 130/70
[2018-08-03 20:14] VITALS: BP 141/67
[2018-08-03] MEDS: INSULIN DETEMIR 100 UNIT/ML CARTRIDGE SQ SCH (21:11)
[2018-08-03] MEDS: SENNOSIDES 8.6 MG TABLET GT SCH (21:11)
[2018-08-04] VITALS: BP 148/68
[2018-08-04] MEDS: BLOOD SUGAR DIAGNOSTIC 1 EACH STRIP IN SCH ×5 (00:27→23:08)
[2018-08-04] MEDS: CLONIDINE HCL 0.1 MG TABLET GT PRN (00:28)
[2018-08-04] MEDS: INSULIN REGULAR, HUMAN 100 UNIT/ML 3 ML VIAL SQ PRN ×5 (00:28→23:09)
[2018-08-04] MEDS: IPRATROPIUM NEB FS 0.5 MG/2.5 ML AMPUL.NEB NEB SCH ×4 (01:09→19:16)
[2018-08-04] MEDS: METOCLOPRAMIDE HCL 10 MG/10 ML UDC GT SCH ×3 (05:00→20:19)
[2018-08-04 06:00] VITALS: BP 151/70
[2018-08-04 08:02] VITALS: BP 145/58
[2018-08-04] MEDS: DOCUSATE SODIUM LIQ 100 MG/10 ML UDC GT SCH (09:30)
[2018-08-04] MEDS: AMLODIPINE BESYLATE 5 MG TABLET GT SCH (09:30)
[2018-08-04] MEDS: METOPROLOL TARTRATE 25 MG TABLET GT SCH ×2 (09:30→20:19)
[2018-08-04] MEDS: MAGNESIUM OXIDE 400 MG TABLET GT SCH (09:30)
[2018-08-04] MEDS: PROSTAT (PYXIS) 30 ML UDC GT SCH ×2 (09:30→17:31)
[2018-08-04] MEDS: ACIDOPHILUS/BULGARICUS 1 EACH TAB.CHEW GT SCH ×2 (09:30→20:19)
[2018-08-04] MEDS: MULTIVIT W/MINERALS 1 TAB TABLET GT SCH (09:31)
[2018-08-04] MEDS: TRAMADOL HCL 50 MG TABLET GT SCH ×2 (09:32→20:19)
[2018-08-04] MEDS: ASCORBIC ACID 500 MG TABLET GT SCH (09:32)
[2018-08-04] MEDS: ZINC SULFATE 220 MG CAPSULE GT SCH (09:32)
[2018-08-04] MEDS: VITS A AND D/WHITE PET/LANOLIN 5 GM PACKET TP SCH ×2 (10:30→21:12)
[2018-08-04] MEDS: HYDROGEN PEROXIDE 480 ML BOTTLE TP SCH ×2 (10:30→21:12)
[2018-08-04] MEDS: Z GUARD REMEDY 4 OZ OINT TP SCH ×4 (10:30→21:12)
[2018-08-04 12:00] VITALS: BP 130/70
--- NOTE | 2018-08-04 15:00 | NUR ---
Dr Aguirre declined to DC isolation due to hospital protocol. Informed infection control nurse Olena. She said to move pt to another female room and have different nurses take care of the patients in that room.
[2018-08-04] MEDS: GLUCERNA 1.2 1,000 ML BOTTLE GT PRN (17:01)
--- NOTE | 2018-08-04 17:55 | NUR ---
Pt's left 4th finger reddish, swollen and has a small amount of pus. Received order to apply betadine paint q shift for 14 days and do wound consult. Informed pt's daughter. Also informed pt's daughter of room change. Addendum: 08/04/18 at 1758 by MARCELLA MITCHELL RN Explained to daughter that different staff will be assigned to her mother and to her mother's roommate, and infection control precautions will be strictly observed.
[2018-08-04 18:57] VITALS: BP 126/74
[2018-08-04 20:15] VITALS: BP 116/57
[2018-08-04] MEDS: SENNOSIDES 8.6 MG TABLET GT SCH (21:12)
[2018-08-04] MEDS: POVIDONE-IODINE OINT 28.4 GM TUBE TP SCH (21:12)
[2018-08-04] MEDS: INSULIN DETEMIR 100 UNIT/ML CARTRIDGE SQ SCH (21:53)
[2018-08-05 01:10] VITALS: BP 130/70
[2018-08-05] MEDS: IPRATROPIUM NEB FS 0.5 MG/2.5 ML AMPUL.NEB NEB SCH ×4 (02:24→19:10)
[2018-08-05] MEDS: METOCLOPRAMIDE HCL 10 MG/10 ML UDC GT SCH ×3 (05:06→20:30)
[2018-08-05] MEDS: BLOOD SUGAR DIAGNOSTIC 1 EACH STRIP IN SCH ×4 (06:10→23:40)
[2018-08-05] MEDS: INSULIN REGULAR, HUMAN 100 UNIT/ML 3 ML VIAL SQ PRN ×4 (06:11→23:41)
[2018-08-05 06:29] VITALS: BP 126/66
--- NOTE | 2018-08-05 07:26 | NUR ---
WOUND CARE CONSULT WOUND CARE RECEIVED CONSULT FOR LEFT 4TH FINGER WOUND. WOUND CARE WILL DEFER CONSULT AND TREATMENT PLAN TO PLASTIC SURGICAL TEAM WHO ARE CURRENTLY FOLLOWING THIS PATIENT. PLASTIC SURGICAL TEAM HAS BEEN NOTIFIED OF CONSULT BY HUMAN RESOURCES BENEFITS COORDINATOR.
[2018-08-05 07:45] VITALS: BP 97/48
[2018-08-05] MEDS: MAGNESIUM OXIDE 400 MG TABLET GT SCH (08:34)
[2018-08-05] MEDS: ACIDOPHILUS/BULGARICUS 1 EACH TAB.CHEW GT SCH ×2 (08:34→20:30)
[2018-08-05] MEDS: DOCUSATE SODIUM LIQ 100 MG/10 ML UDC GT SCH (08:34)
[2018-08-05] MEDS: METOPROLOL TARTRATE 25 MG TABLET GT SCH ×2 (08:35→20:30)
[2018-08-05] MEDS: AMLODIPINE BESYLATE 5 MG TABLET GT SCH (08:35)
[2018-08-05] MEDS: ASCORBIC ACID 500 MG TABLET GT SCH (08:36)
[2018-08-05] MEDS: ZINC SULFATE 220 MG CAPSULE GT SCH (08:36)
[2018-08-05] MEDS: PROSTAT (PYXIS) 30 ML UDC GT SCH ×2 (08:36→17:17)
[2018-08-05] MEDS: MULTIVIT W/MINERALS 1 TAB TABLET GT SCH (08:36)
[2018-08-05] MEDS: TRAMADOL HCL 50 MG TABLET GT SCH ×2 (08:36→20:31)
[2018-08-05] MEDS: Z GUARD REMEDY 4 OZ OINT TP SCH ×4 (09:15→21:28)
[2018-08-05] MEDS: VITS A AND D/WHITE PET/LANOLIN 5 GM PACKET TP SCH ×2 (09:15→21:28)
[2018-08-05] MEDS: POVIDONE-IODINE OINT 28.4 GM TUBE TP SCH ×2 (09:15→21:27)
[2018-08-05] MEDS: HYDROGEN PEROXIDE 480 ML BOTTLE TP SCH ×2 (09:15→21:27)
--- NOTE | 2018-08-05 11:27 | NUR ---
Seen by AVERY Muñoz for left 4th finger wound. She said to continue betadine treatment. Redness and swelling were noted, but no more purulent drainage.
[2018-08-05 12:00] VITALS: BP 131/65
[2018-08-05] MEDS: GLUCERNA 1.2 1,000 ML BOTTLE GT PRN (14:00)
[2018-08-05 18:00] VITALS: BP 127/62
[2018-08-05 20:41] VITALS: BP_SYST 111; BP_SYST 117; BP_DIAS 58; BP_DIAS 72
[2018-08-05] MEDS: SENNOSIDES 8.6 MG TABLET GT SCH (21:28)
[2018-08-05] MEDS: INSULIN DETEMIR 100 UNIT/ML CARTRIDGE SQ SCH (21:32)
[2018-08-06] VITALS (8 sets, daily range): BP systolic 99–136; BP diastolic 49–73
[2018-08-06] MEDS: IPRATROPIUM NEB FS 0.5 MG/2.5 ML AMPUL.NEB NEB SCH ×4 (00:59→19:28)
[2018-08-06] MEDS: METOCLOPRAMIDE HCL 10 MG/10 ML UDC GT SCH ×3 (05:18→21:23)
[2018-08-06] MEDS: GLUCERNA 1.2 1,000 ML BOTTLE GT PRN ×2 (05:24→20:00)
[2018-08-06] MEDS: BLOOD SUGAR DIAGNOSTIC 1 EACH STRIP IN SCH ×4 (06:10→23:45)
[2018-08-06] MEDS: INSULIN REGULAR, HUMAN 100 UNIT/ML 3 ML VIAL SQ PRN ×4 (06:11→23:46)
[2018-08-06] MEDS: AMLODIPINE BESYLATE 5 MG TABLET GT SCH (09:00)
[2018-08-06] MEDS: DOCUSATE SODIUM LIQ 100 MG/10 ML UDC GT SCH (09:00)
[2018-08-06] MEDS: PROSTAT (PYXIS) 30 ML UDC GT SCH ×2 (09:00→17:00)
[2018-08-06] MEDS: METOPROLOL TARTRATE 25 MG TABLET GT SCH ×2 (09:00→21:23)
[2018-08-06] MEDS: ASCORBIC ACID 500 MG TABLET GT SCH (09:00)
[2018-08-06] MEDS: ZINC SULFATE 220 MG CAPSULE GT SCH (09:00)
[2018-08-06] MEDS: MAGNESIUM OXIDE 400 MG TABLET GT SCH (09:00)
[2018-08-06] MEDS: TRAMADOL HCL 50 MG TABLET GT SCH ×2 (09:00→21:23)
[2018-08-06] MEDS: ACIDOPHILUS/BULGARICUS 1 EACH TAB.CHEW GT SCH ×2 (09:00→21:22)
[2018-08-06] MEDS: MULTIVIT W/MINERALS 1 TAB TABLET GT SCH (09:00)
[2018-08-06] MEDS: POVIDONE-IODINE OINT 28.4 GM TUBE TP SCH ×2 (10:00→21:24)
[2018-08-06] MEDS: Z GUARD REMEDY 4 OZ OINT TP SCH ×4 (10:00→21:24)
[2018-08-06] MEDS: HYDROGEN PEROXIDE 480 ML BOTTLE TP SCH ×2 (10:00→21:24)
[2018-08-06] MEDS: VITS A AND D/WHITE PET/LANOLIN 5 GM PACKET TP SCH ×2 (10:00→21:24)
[2018-08-06] MEDS: SENNOSIDES 8.6 MG TABLET GT SCH (21:24)
[2018-08-06] MEDS: INSULIN DETEMIR 100 UNIT/ML CARTRIDGE SQ SCH (21:26)
[2018-08-07 00:52] VITALS: BP 140/59
[2018-08-07] MEDS: IPRATROPIUM NEB FS 0.5 MG/2.5 ML AMPUL.NEB NEB SCH ×4 (01:20→19:14)
[2018-08-07] MEDS: BLOOD SUGAR DIAGNOSTIC 1 EACH STRIP IN SCH ×4 (05:44→23:53)
[2018-08-07] MEDS: METOCLOPRAMIDE HCL 10 MG/10 ML UDC GT SCH ×3 (05:44→21:00)
[2018-08-07] MEDS: INSULIN REGULAR, HUMAN 100 UNIT/ML 3 ML VIAL SQ PRN ×4 (05:45→23:53)
[2018-08-07 06:27] VITALS: BP 141/75
[2018-08-07 07:42] VITALS: BP 124/62
--- NOTE | 2018-08-07 07:47 | NUR ---
Received female trach pt unlabored on a mechanical vent. Pt trach is secure. Vent is plugged into a red outlet, alarms are set and audible, and BMV is at bedside. Addendum: 08/07/18 at 0747 by SHIMA GONZALES RT Amended: Links added.
[2018-08-07] MEDS: PROSTAT (PYXIS) 30 ML UDC GT SCH ×2 (09:00→16:18)
[2018-08-07] MEDS: ZINC SULFATE 220 MG CAPSULE GT SCH (09:00)
[2018-08-07] MEDS: MULTIVIT W/MINERALS 1 TAB TABLET GT SCH (09:00)
[2018-08-07] MEDS: METOPROLOL TARTRATE 25 MG TABLET GT SCH ×2 (09:00→21:00)
[2018-08-07] MEDS: AMLODIPINE BESYLATE 5 MG TABLET GT SCH (09:00)
[2018-08-07] MEDS: ASCORBIC ACID 500 MG TABLET GT SCH (09:00)
[2018-08-07] MEDS: ACIDOPHILUS/BULGARICUS 1 EACH TAB.CHEW GT SCH ×2 (09:00→21:00)
[2018-08-07] MEDS: MAGNESIUM OXIDE 400 MG TABLET GT SCH (09:00)
[2018-08-07] MEDS: DOCUSATE SODIUM LIQ 100 MG/10 ML UDC GT SCH (09:00)
[2018-08-07] MEDS: TRAMADOL HCL 50 MG TABLET GT SCH ×2 (10:00→21:00)
[2018-08-07] MEDS: VITS A AND D/WHITE PET/LANOLIN 5 GM PACKET TP SCH ×2 (10:30→21:00)
[2018-08-07] MEDS: Z GUARD REMEDY 4 OZ OINT TP SCH ×4 (10:30→21:00)
[2018-08-07] MEDS: POVIDONE-IODINE OINT 28.4 GM TUBE TP SCH ×2 (10:30→21:00)
[2018-08-07] MEDS: HYDROGEN PEROXIDE 480 ML BOTTLE TP SCH ×2 (10:30→21:00)
[2018-08-07 12:00] VITALS: BP 130/62
[2018-08-07] MEDS: GLUCERNA 1.2 1,000 ML BOTTLE GT PRN (16:18)
[2018-08-07 18:00] VITALS: BP 133/57
--- NOTE | 2018-08-07 19:30 | NUR ---
Seen and examined by AVERY albright.
[2018-08-07 20:22] VITALS: BP 133/57
[2018-08-07] MEDS: SENNOSIDES 8.6 MG TABLET GT SCH (22:11)
[2018-08-07] MEDS: INSULIN DETEMIR 100 UNIT/ML CARTRIDGE SQ SCH (22:12)
[2018-08-07] MEDS: CLONIDINE HCL 0.1 MG TABLET GT PRN (23:56)
[2018-08-08] VITALS: BP 137/81
[2018-08-08] MEDS: IPRATROPIUM NEB FS 0.5 MG/2.5 ML AMPUL.NEB NEB SCH ×4 (00:53→19:27)
[2018-08-08] MEDS: BLOOD SUGAR DIAGNOSTIC 1 EACH STRIP IN SCH ×3 (05:43→18:32)
[2018-08-08] MEDS: METOCLOPRAMIDE HCL 10 MG/10 ML UDC GT SCH ×3 (05:43→21:29)
[2018-08-08] MEDS: INSULIN REGULAR, HUMAN 100 UNIT/ML 3 ML VIAL SQ PRN ×3 (05:44→18:32)
[2018-08-08 06:00] VITALS: BP 141/74
[2018-08-08] MEDS: GLUCERNA 1.2 1,000 ML BOTTLE GT PRN (07:20)
[2018-08-08 07:48] VITALS: BP 128/64
--- NOTE | 2018-08-08 08:14 | NUR ---
PT RCVD TRACH'D ON MECHANICAL VENT WITH CHARTED SETTINGS. HHN TX BIRDIE WELL. SX DONE. PT TRACH IS PATENT AND SECURE. VENT PLUGGED INTO RED OUTLET. ALARMS ARE ON AND AUDIBLE. AMBU BAG AT BEDSIDE. WILL CONTINUE TO MONITOR. Addendum: 08/08/18 at 0816 by FELICITAS CHRISTIE RT Amended: Links added.
[2018-08-08] MEDS: MAGNESIUM OXIDE 400 MG TABLET GT SCH (09:00)
[2018-08-08] MEDS: ACIDOPHILUS/BULGARICUS 1 EACH TAB.CHEW GT SCH ×2 (09:00→21:29)
[2018-08-08] MEDS: ZINC SULFATE 220 MG CAPSULE GT SCH (09:00)
[2018-08-08] MEDS: PROSTAT (PYXIS) 30 ML UDC GT SCH ×2 (09:00→17:00)
[2018-08-08] MEDS: Z GUARD REMEDY 4 OZ OINT TP SCH ×4 (09:00→21:30)
[2018-08-08] MEDS: HYDROGEN PEROXIDE 480 ML BOTTLE TP SCH ×2 (09:00→21:30)
[2018-08-08] MEDS: AMLODIPINE BESYLATE 5 MG TABLET GT SCH (09:00)
[2018-08-08] MEDS: ASCORBIC ACID 500 MG TABLET GT SCH (09:00)
[2018-08-08] MEDS: DOCUSATE SODIUM LIQ 100 MG/10 ML UDC GT SCH (09:00)
[2018-08-08] MEDS: POVIDONE-IODINE OINT 28.4 GM TUBE TP SCH ×3 (09:00→21:30)
[2018-08-08] MEDS: MULTIVIT W/MINERALS 1 TAB TABLET GT SCH (09:00)
[2018-08-08] MEDS: METOPROLOL TARTRATE 25 MG TABLET GT SCH ×2 (09:00→21:29)
[2018-08-08] MEDS: VITS A AND D/WHITE PET/LANOLIN 5 GM PACKET TP SCH ×2 (09:00→21:30)
[2018-08-08 12:00] VITALS: BP 133/67
[2018-08-08 18:00] VITALS: BP 110/58
--- NOTE | 2018-08-08 18:50 | NUR ---
Seen by Dr. Dudley, he said that L 1st metatarsal wound is now a scab and will fall off by itself. New order given to DC current order, new order paint with Betadine and MAGO. Resident's daughter Jennifer notified of wound progress. Wound treatment changed and Tramadol which is given 30 min prior to wound care has been discontinued. Appreciated the call.
[2018-08-08 19:31] VITALS: BP 117/59
[2018-08-08] MEDS: SENNOSIDES 8.6 MG TABLET GT SCH (21:30)
[2018-08-08] MEDS: INSULIN DETEMIR 100 UNIT/ML CARTRIDGE SQ SCH (21:31)
[2018-08-09] VITALS (7 sets, daily range): BP systolic 120–142; BP diastolic 61–70
[2018-08-09] MEDS: BLOOD SUGAR DIAGNOSTIC 1 EACH STRIP IN SCH ×5 (00:12→23:34)
[2018-08-09] MEDS: INSULIN REGULAR, HUMAN 100 UNIT/ML 3 ML VIAL SQ PRN ×5 (00:15→23:36)
[2018-08-09] MEDS: IPRATROPIUM NEB FS 0.5 MG/2.5 ML AMPUL.NEB NEB SCH ×4 (01:03→19:20)
[2018-08-09] MEDS: GLUCERNA 1.2 1,000 ML BOTTLE GT PRN ×2 (01:30→18:31)
[2018-08-09] MEDS: METOCLOPRAMIDE HCL 10 MG/10 ML UDC GT SCH ×3 (05:29→20:42)
[2018-08-09] MEDS: Z GUARD REMEDY 4 OZ OINT TP SCH ×4 (09:00→20:42)
[2018-08-09] MEDS: POVIDONE-IODINE OINT 28.4 GM TUBE TP SCH ×4 (09:00→20:42)
[2018-08-09] MEDS: VITS A AND D/WHITE PET/LANOLIN 5 GM PACKET TP SCH ×2 (09:00→20:42)
[2018-08-09] MEDS: HYDROGEN PEROXIDE 480 ML BOTTLE TP SCH ×2 (09:00→20:42)
[2018-08-09] MEDS: ACIDOPHILUS/BULGARICUS 1 EACH TAB.CHEW GT SCH ×2 (09:34→20:42)
[2018-08-09] MEDS: DOCUSATE SODIUM LIQ 100 MG/10 ML UDC GT SCH (09:34)
[2018-08-09] MEDS: ZINC SULFATE 220 MG CAPSULE GT SCH (09:36)
[2018-08-09] MEDS: PROSTAT (PYXIS) 30 ML UDC GT SCH ×2 (09:36→16:52)
[2018-08-09] MEDS: ASCORBIC ACID 500 MG TABLET GT SCH (09:36)
[2018-08-09] MEDS: MAGNESIUM OXIDE 400 MG TABLET GT SCH (09:36)
[2018-08-09] MEDS: MULTIVIT W/MINERALS 1 TAB TABLET GT SCH (09:36)
[2018-08-09] MEDS: METOPROLOL TARTRATE 25 MG TABLET GT SCH ×2 (09:49→20:41)
[2018-08-09] MEDS: AMLODIPINE BESYLATE 5 MG TABLET GT SCH (09:50)
[2018-08-09] MEDS: TRAMADOL HCL 50 MG TABLET GT PRN (14:17)
[2018-08-09] MEDS: SENNOSIDES 8.6 MG TABLET GT SCH (21:56)
[2018-08-09] MEDS: INSULIN DETEMIR 100 UNIT/ML CARTRIDGE SQ SCH (22:03)
[2018-08-10] VITALS: BP 128/52
[2018-08-10] MEDS: IPRATROPIUM NEB FS 0.5 MG/2.5 ML AMPUL.NEB NEB SCH ×4 (02:21→19:26)
[2018-08-10] MEDS: BLOOD SUGAR DIAGNOSTIC 1 EACH STRIP IN SCH ×4 (05:17→23:18)
[2018-08-10] MEDS: METOCLOPRAMIDE HCL 10 MG/10 ML UDC GT SCH ×3 (05:17→20:10)
[2018-08-10] MEDS: INSULIN REGULAR, HUMAN 100 UNIT/ML 3 ML VIAL SQ PRN ×4 (05:32→23:20)
[2018-08-10 07:19] VITALS: BP 140/69
[2018-08-10 08:05] VITALS: BP 117/48
[2018-08-10] MEDS: HYDROGEN PEROXIDE 480 ML BOTTLE TP SCH ×2 (09:00→20:11)
[2018-08-10] MEDS: VITS A AND D/WHITE PET/LANOLIN 5 GM PACKET TP SCH ×2 (09:00→20:11)
[2018-08-10] MEDS: Z GUARD REMEDY 4 OZ OINT TP SCH ×4 (09:00→20:11)
[2018-08-10] MEDS: POVIDONE-IODINE OINT 28.4 GM TUBE TP SCH ×4 (09:00→20:10)
[2018-08-10] MEDS: ACIDOPHILUS/BULGARICUS 1 EACH TAB.CHEW GT SCH ×2 (09:03→20:09)
[2018-08-10] MEDS: DOCUSATE SODIUM LIQ 100 MG/10 ML UDC GT SCH (09:03)
[2018-08-10] MEDS: PROSTAT (PYXIS) 30 ML UDC GT SCH ×2 (09:04→17:23)
[2018-08-10] MEDS: ASCORBIC ACID 500 MG TABLET GT SCH (09:04)
[2018-08-10] MEDS: MAGNESIUM OXIDE 400 MG TABLET GT SCH (09:04)
[2018-08-10] MEDS: AMLODIPINE BESYLATE 5 MG TABLET GT SCH (09:04)
[2018-08-10] MEDS: ZINC SULFATE 220 MG CAPSULE GT SCH (09:04)
[2018-08-10] MEDS: METOPROLOL TARTRATE 25 MG TABLET GT SCH ×2 (09:04→20:10)
[2018-08-10] MEDS: MULTIVIT W/MINERALS 1 TAB TABLET GT SCH (09:04)
--- NOTE | 2018-08-10 09:28 | NUR ---
RESIDENT WAS SEEN AND EXAMINED BY FÁTIMA COOPER EVAPORATIVE COOLER INSTALLER, NO NEW ORDERS.
[2018-08-10 12:00] VITALS: BP 120/68
[2018-08-10 18:33] VITALS: BP 133/68
[2018-08-10 20:11] VITALS: BP 127/79
[2018-08-10] MEDS: SENNOSIDES 8.6 MG TABLET GT SCH (21:13)
[2018-08-10] MEDS: INSULIN DETEMIR 100 UNIT/ML CARTRIDGE SQ SCH (21:15)
--- NOTE | 2018-08-10 23:40 | NUR ---
PT RCVD TRACH'D ON MECHANICAL VENT WITH CHARTED SETTINGS. HHN TX BIRDIE WELL. SX DONE. PT TRACH IS PATENT AND SECURE. VENT PLUGGED INTO RED OUTLET. ALARMS APPEAR TO BE FUNCTIONING PROPERLY. AMBU BAG AT BEDSIDE. WILL CONTINUE TO MONITOR. Addendum: 08/10/18 at 2340 by FELICITAS CHRISTIE RT Amended: Links added.
[2018-08-11] VITALS (7 sets, daily range): BP systolic 110–141; BP diastolic 53–70
[2018-08-11] MEDS: IPRATROPIUM NEB FS 0.5 MG/2.5 ML AMPUL.NEB NEB SCH ×4 (00:38→20:04)
[2018-08-11] MEDS: GLUCERNA 1.2 1,000 ML BOTTLE GT PRN (05:12)
[2018-08-11] MEDS: METOCLOPRAMIDE HCL 10 MG/10 ML UDC GT SCH ×3 (05:12→21:18)
[2018-08-11] MEDS: BLOOD SUGAR DIAGNOSTIC 1 EACH STRIP IN SCH ×3 (05:55→18:30)
[2018-08-11] MEDS: INSULIN REGULAR, HUMAN 100 UNIT/ML 3 ML VIAL SQ PRN ×3 (05:56→18:32)
[2018-08-11] MEDS: METOPROLOL TARTRATE 25 MG TABLET GT SCH ×2 (08:37→21:18)
[2018-08-11] MEDS: POVIDONE-IODINE OINT 28.4 GM TUBE TP SCH ×4 (08:37→21:19)
[2018-08-11] MEDS: MAGNESIUM OXIDE 400 MG TABLET GT SCH (08:37)
[2018-08-11] MEDS: ZINC SULFATE 220 MG CAPSULE GT SCH (08:37)
[2018-08-11] MEDS: DOCUSATE SODIUM LIQ 100 MG/10 ML UDC GT SCH (08:37)
[2018-08-11] MEDS: ASCORBIC ACID 500 MG TABLET GT SCH (08:37)
[2018-08-11] MEDS: ACIDOPHILUS/BULGARICUS 1 EACH TAB.CHEW GT SCH ×2 (08:37→21:18)
[2018-08-11] MEDS: HYDROGEN PEROXIDE 480 ML BOTTLE TP SCH ×2 (08:37→21:19)
[2018-08-11] MEDS: MULTIVIT W/MINERALS 1 TAB TABLET GT SCH (08:37)
[2018-08-11] MEDS: PROSTAT (PYXIS) 30 ML UDC GT SCH ×2 (08:37→16:47)
[2018-08-11] MEDS: AMLODIPINE BESYLATE 5 MG TABLET GT SCH (08:37)
[2018-08-11] MEDS: Z GUARD REMEDY 4 OZ OINT TP SCH ×4 (08:37→21:19)
[2018-08-11] MEDS: VITS A AND D/WHITE PET/LANOLIN 5 GM PACKET TP SCH ×2 (08:38→21:19)
[2018-08-11] MEDS: INSULIN DETEMIR 100 UNIT/ML CARTRIDGE SQ SCH (21:19)
[2018-08-11] MEDS: SENNOSIDES 8.6 MG TABLET GT SCH (21:19)
[2018-08-12] VITALS (7 sets, daily range): BP systolic 122–137; BP diastolic 57–71
[2018-08-12] MEDS: BLOOD SUGAR DIAGNOSTIC 1 EACH STRIP IN SCH ×4 (00:13→17:55)
[2018-08-12] MEDS: INSULIN REGULAR, HUMAN 100 UNIT/ML 3 ML VIAL SQ PRN ×4 (00:14→17:56)
[2018-08-12] MEDS: IPRATROPIUM NEB FS 0.5 MG/2.5 ML AMPUL.NEB NEB SCH ×4 (01:12→19:30)
[2018-08-12] MEDS: METOCLOPRAMIDE HCL 10 MG/10 ML UDC GT SCH ×3 (05:50→21:01)
--- NOTE | 2018-08-12 07:33 | NUR ---
Female trach pt received unlabored on a mechanical vent. Pt trach is secure. Vent is plugged into a red outlet, alarms are set and audible, and BMV is at bedside. Addendum: 08/12/18 at 0734 by SHIMA GONZALES RT Amended: Links added.
[2018-08-12] MEDS: DOCUSATE SODIUM LIQ 100 MG/10 ML UDC GT SCH (08:46)
[2018-08-12] MEDS: ASCORBIC ACID 500 MG TABLET GT SCH (08:47)
[2018-08-12] MEDS: AMLODIPINE BESYLATE 5 MG TABLET GT SCH (08:47)
[2018-08-12] MEDS: MULTIVIT W/MINERALS 1 TAB TABLET GT SCH (08:47)
[2018-08-12] MEDS: POVIDONE-IODINE OINT 28.4 GM TUBE TP SCH ×4 (08:47→21:01)
[2018-08-12] MEDS: MAGNESIUM OXIDE 400 MG TABLET GT SCH (08:47)
[2018-08-12] MEDS: PROSTAT (PYXIS) 30 ML UDC GT SCH ×2 (08:47→17:21)
[2018-08-12] MEDS: ZINC SULFATE 220 MG CAPSULE GT SCH (08:47)
[2018-08-12] MEDS: HYDROGEN PEROXIDE 480 ML BOTTLE TP SCH ×2 (08:47→21:02)
[2018-08-12] MEDS: ACIDOPHILUS/BULGARICUS 1 EACH TAB.CHEW GT SCH ×2 (08:47→21:01)
[2018-08-12] MEDS: METOPROLOL TARTRATE 25 MG TABLET GT SCH ×2 (08:47→21:01)
[2018-08-12] MEDS: VITS A AND D/WHITE PET/LANOLIN 5 GM PACKET TP SCH ×2 (08:48→21:02)
[2018-08-12] MEDS: Z GUARD REMEDY 4 OZ OINT TP SCH ×4 (08:48→21:02)
--- NOTE | 2018-08-12 09:30 | NUR ---
Pt noted with redness on the outer canthus of left eye. Received order to cleanse with normal saline and leave open to air q shift for 7 days. Notified daughter.
[2018-08-12] MEDS: SENNOSIDES 8.6 MG TABLET GT SCH (21:02)
[2018-08-12] MEDS: INSULIN DETEMIR 100 UNIT/ML CARTRIDGE SQ SCH (21:02)
[2018-08-13 00:09] VITALS: BP 130/62
[2018-08-13] MEDS: BLOOD SUGAR DIAGNOSTIC 1 EACH STRIP IN SCH ×5 (00:10→23:27)
[2018-08-13] MEDS: INSULIN REGULAR, HUMAN 100 UNIT/ML 3 ML VIAL SQ PRN ×5 (00:11→23:28)
[2018-08-13] MEDS: IPRATROPIUM NEB FS 0.5 MG/2.5 ML AMPUL.NEB NEB SCH ×4 (02:17→19:29)
[2018-08-13] MEDS: METOCLOPRAMIDE HCL 10 MG/10 ML UDC GT SCH ×3 (05:53→21:39)
[2018-08-13 06:03] VITALS: BP 122/64
[2018-08-13 07:53] VITALS: BP 122/63
[2018-08-13] MEDS: ACIDOPHILUS/BULGARICUS 1 EACH TAB.CHEW GT SCH ×2 (09:46→21:39)
[2018-08-13] MEDS: DOCUSATE SODIUM LIQ 100 MG/10 ML UDC GT SCH (09:46)
[2018-08-13] MEDS: METOPROLOL TARTRATE 25 MG TABLET GT SCH ×2 (09:48→21:39)
[2018-08-13] MEDS: MAGNESIUM OXIDE 400 MG TABLET GT SCH (09:48)
[2018-08-13] MEDS: Z GUARD REMEDY 4 OZ OINT TP SCH ×4 (09:49→21:40)
[2018-08-13] MEDS: VITS A AND D/WHITE PET/LANOLIN 5 GM PACKET TP SCH ×2 (09:49→21:40)
[2018-08-13] MEDS: ZINC SULFATE 220 MG CAPSULE GT SCH (09:49)
[2018-08-13] MEDS: HYDROGEN PEROXIDE 480 ML BOTTLE TP SCH ×2 (09:49→21:39)
[2018-08-13] MEDS: PROSTAT (PYXIS) 30 ML UDC GT SCH ×2 (09:49→17:00)
[2018-08-13] MEDS: AMLODIPINE BESYLATE 5 MG TABLET GT SCH (09:49)
[2018-08-13] MEDS: POVIDONE-IODINE OINT 28.4 GM TUBE TP SCH ×4 (09:49→21:39)
[2018-08-13] MEDS: ASCORBIC ACID 500 MG TABLET GT SCH (09:49)
[2018-08-13] MEDS: MULTIVIT W/MINERALS 1 TAB TABLET GT SCH (09:49)
[2018-08-13 12:00] VITALS: BP 132/75
[2018-08-13 18:00] VITALS: BP 128/80
--- NOTE | 2018-08-13 19:29 | NUR ---
RT NOTE: RECEIVED TRACH PT ON [facility] VENT ON NOTED SETTINGS PER MD ORDERS. TRACH IS PATENT AND SECURED. SUPERVISOR ACOUSTICAL TILE CARPENTERS DONE. Q6 BREATHING TX GIVEN WITH NO ADVERSE REACTION NOTED. SX DONE PRN. VENT PLUGGED INTO RED OUTLET. ALARMS ON AND AUDIBLE. FROY BAG @ BEDSIDE. NO RESP DISTRESS AT THIS TIME. WILL CONT TO MONITOR PT. Addendum: 08/14/18 at 0142 by PREMA SOTO RT Amended: Links added.
[2018-08-13 20:15] VITALS: BP 148/69
[2018-08-13] MEDS: GLUCERNA 1.2 1,000 ML BOTTLE GT PRN (21:40)
[2018-08-13] MEDS: SENNOSIDES 8.6 MG TABLET GT SCH (21:40)
[2018-08-13] MEDS: INSULIN DETEMIR 100 UNIT/ML CARTRIDGE SQ SCH (22:21)
[2018-08-14 00:05] VITALS: BP 147/73
[2018-08-14] MEDS: IPRATROPIUM NEB FS 0.5 MG/2.5 ML AMPUL.NEB NEB SCH ×4 (00:58→19:24)
[2018-08-14] MEDS: METOCLOPRAMIDE HCL 10 MG/10 ML UDC GT SCH ×3 (05:07→21:41)
[2018-08-14 06:20] VITALS: BP 144/66
[2018-08-14] MEDS: BLOOD SUGAR DIAGNOSTIC 1 EACH STRIP IN SCH ×4 (06:26→23:24)
[2018-08-14] MEDS: INSULIN REGULAR, HUMAN 100 UNIT/ML 3 ML VIAL SQ PRN ×4 (06:27→23:25)
[2018-08-14 07:36] VITALS: BP 119/74
--- NOTE | 2018-08-14 07:44 | NUR ---
Female pt received unlabored on a mechanical vent. Pt trach is secure. Vent is plugged into a red outlet, alarms are set and audible, and BMV is at bedside. Addendum: 08/14/18 at 0744 by SHIMA GONZALES RT Amended: Links added.
[2018-08-14] MEDS: ASCORBIC ACID 500 MG TABLET GT SCH (08:32)
[2018-08-14] MEDS: MAGNESIUM OXIDE 400 MG TABLET GT SCH (08:32)
[2018-08-14] MEDS: METOPROLOL TARTRATE 25 MG TABLET GT SCH ×2 (08:32→21:41)
[2018-08-14] MEDS: ACIDOPHILUS/BULGARICUS 1 EACH TAB.CHEW GT SCH ×2 (08:32→21:40)
[2018-08-14] MEDS: PROSTAT (PYXIS) 30 ML UDC GT SCH ×2 (08:32→17:55)
[2018-08-14] MEDS: ZINC SULFATE 220 MG CAPSULE GT SCH (08:32)
[2018-08-14] MEDS: AMLODIPINE BESYLATE 5 MG TABLET GT SCH (08:32)
[2018-08-14] MEDS: MULTIVIT W/MINERALS 1 TAB TABLET GT SCH (08:32)
[2018-08-14] MEDS: DOCUSATE SODIUM LIQ 100 MG/10 ML UDC GT SCH (08:32)
[2018-08-14] MEDS: VITS A AND D/WHITE PET/LANOLIN 5 GM PACKET TP SCH ×2 (09:00→21:42)
[2018-08-14] MEDS: Z GUARD REMEDY 4 OZ OINT TP SCH ×4 (09:00→21:42)
[2018-08-14] MEDS: POVIDONE-IODINE OINT 28.4 GM TUBE TP SCH ×4 (09:00→21:42)
[2018-08-14] MEDS: HYDROGEN PEROXIDE 480 ML BOTTLE TP SCH ×2 (09:00→21:42)
[2018-08-14 12:00] VITALS: BP 141/65
[2018-08-14 18:18] VITALS: BP 112/56
[2018-08-14] MEDS: GLUCERNA 1.2 1,000 ML BOTTLE GT PRN (19:11)
[2018-08-14 20:54] VITALS: BP 114/57
[2018-08-14] MEDS: SENNOSIDES 8.6 MG TABLET GT SCH (21:42)
[2018-08-14] MEDS: INSULIN DETEMIR 100 UNIT/ML CARTRIDGE SQ SCH (21:43)
[2018-08-15 00:34] VITALS: BP 125/67
[2018-08-15] MEDS: IPRATROPIUM NEB FS 0.5 MG/2.5 ML AMPUL.NEB NEB SCH ×4 (01:02→19:20)
[2018-08-15] MEDS: METOCLOPRAMIDE HCL 10 MG/10 ML UDC GT SCH ×3 (05:20→21:14)
[2018-08-15] MEDS: BLOOD SUGAR DIAGNOSTIC 1 EACH STRIP IN SCH ×4 (05:44→23:56)
[2018-08-15] MEDS: INSULIN REGULAR, HUMAN 100 UNIT/ML 3 ML VIAL SQ PRN ×3 (05:46→18:40)
[2018-08-15 06:16] VITALS: BP 150/67
[2018-08-15 07:42] VITALS: BP 135/64
[2018-08-15] MEDS: GLUCERNA 1.2 1,000 ML BOTTLE GT PRN (07:44)
[2018-08-15] MEDS: HYDROGEN PEROXIDE 480 ML BOTTLE TP SCH ×2 (09:00→21:11)
[2018-08-15] MEDS: POVIDONE-IODINE OINT 28.4 GM TUBE TP SCH ×4 (09:00→21:11)
[2018-08-15] MEDS: Z GUARD REMEDY 4 OZ OINT TP SCH ×4 (09:00→21:11)
[2018-08-15] MEDS: VITS A AND D/WHITE PET/LANOLIN 5 GM PACKET TP SCH ×2 (09:00→21:12)
[2018-08-15] MEDS: DOCUSATE SODIUM LIQ 100 MG/10 ML UDC GT SCH (09:34)
[2018-08-15] MEDS: ACIDOPHILUS/BULGARICUS 1 EACH TAB.CHEW GT SCH ×2 (09:35→21:06)
[2018-08-15] MEDS: ZINC SULFATE 220 MG CAPSULE GT SCH (09:35)
[2018-08-15] MEDS: MAGNESIUM OXIDE 400 MG TABLET GT SCH (09:35)
[2018-08-15] MEDS: ASCORBIC ACID 500 MG TABLET GT SCH (09:35)
[2018-08-15] MEDS: PROSTAT (PYXIS) 30 ML UDC GT SCH ×2 (09:35→16:14)
[2018-08-15] MEDS: MULTIVIT W/MINERALS 1 TAB TABLET GT SCH (09:36)
[2018-08-15] MEDS: METOPROLOL TARTRATE 25 MG TABLET GT SCH ×2 (09:57→21:09)
[2018-08-15] MEDS: AMLODIPINE BESYLATE 5 MG TABLET GT SCH (09:58)
[2018-08-15 12:00] VITALS: BP 138/70
[2018-08-15 18:00] VITALS: BP 143/70
[2018-08-15 19:35] VITALS: BP 138/61
--- NOTE | 2018-08-15 20:02 | NUR ---
RT NOTE PATIENT RECEIVED ON MECHANICAL VENTILATION. AMBU BAG/BACK UP TRACH @ BEDSIDE. VENT PLUGGED INTO RED OUTLET. ALARMS ON AND AUDIBLE. TX GIVEN, NO ADVERSE REACTIONS NOTED. SX DONE, SMALL THICK WHITE YELLOW SECRETIONS NOTED. NO SOB NOTED. WILL MONITOR. Addendum: 08/15/18 at 2002 by MANOLO MCDONNELL RT Amended: Links added.
[2018-08-15] MEDS: SENNOSIDES 8.6 MG TABLET GT SCH (21:13)
[2018-08-15] MEDS: INSULIN DETEMIR 100 UNIT/ML CARTRIDGE SQ SCH (22:00)
[2018-08-16] VITALS: BP 138/64
[2018-08-16] MEDS: IPRATROPIUM NEB FS 0.5 MG/2.5 ML AMPUL.NEB NEB SCH ×4 (01:05→19:17)
[2018-08-16] MEDS: GLUCERNA 1.2 1,000 ML BOTTLE GT PRN ×2 (02:48→18:49)
[2018-08-16] MEDS: METOCLOPRAMIDE HCL 10 MG/10 ML UDC GT SCH ×3 (05:05→20:30)
[2018-08-16] MEDS: INSULIN REGULAR, HUMAN 100 UNIT/ML 3 ML VIAL SQ PRN ×5 (05:48→23:36)
[2018-08-16] MEDS: BLOOD SUGAR DIAGNOSTIC 1 EACH STRIP IN SCH ×4 (05:49→23:35)
[2018-08-16 06:27] VITALS: BP 148/76
[2018-08-16 08:00] VITALS: BP 135/69
[2018-08-16 08:01] VITALS: BP 135/69
[2018-08-16] MEDS: AMLODIPINE BESYLATE 5 MG TABLET GT SCH (09:00)
[2018-08-16] MEDS: VITS A AND D/WHITE PET/LANOLIN 5 GM PACKET TP SCH ×2 (09:00→20:31)
[2018-08-16] MEDS: MAGNESIUM OXIDE 400 MG TABLET GT SCH (09:00)
[2018-08-16] MEDS: HYDROGEN PEROXIDE 480 ML BOTTLE TP SCH ×2 (09:00→20:30)
[2018-08-16] MEDS: PROSTAT (PYXIS) 30 ML UDC GT SCH ×2 (09:00→16:24)
[2018-08-16] MEDS: POVIDONE-IODINE OINT 28.4 GM TUBE TP SCH ×4 (09:00→20:30)
[2018-08-16] MEDS: ZINC SULFATE 220 MG CAPSULE GT SCH (09:00)
[2018-08-16] MEDS: ACIDOPHILUS/BULGARICUS 1 EACH TAB.CHEW GT SCH ×2 (09:00→20:30)
[2018-08-16] MEDS: ASCORBIC ACID 500 MG TABLET GT SCH (09:00)
[2018-08-16] MEDS: MULTIVIT W/MINERALS 1 TAB TABLET GT SCH (09:00)
[2018-08-16] MEDS: METOPROLOL TARTRATE 25 MG TABLET GT SCH ×2 (09:00→20:30)
[2018-08-16] MEDS: DOCUSATE SODIUM LIQ 100 MG/10 ML UDC GT SCH (09:00)
[2018-08-16] MEDS: Z GUARD REMEDY 4 OZ OINT TP SCH ×4 (09:00→20:31)
[2018-08-16 12:00] VITALS: BP 133/76
[2018-08-16 19:43] VITALS: BP 129/57
[2018-08-16] MEDS: SENNOSIDES 8.6 MG TABLET GT SCH (21:50)
[2018-08-16] MEDS: INSULIN DETEMIR 100 UNIT/ML CARTRIDGE SQ SCH (21:50)
[2018-08-17 00:57] VITALS: BP 126/76
[2018-08-17] MEDS: IPRATROPIUM NEB FS 0.5 MG/2.5 ML AMPUL.NEB NEB SCH ×4 (01:16→19:24)
[2018-08-17] MEDS: METOCLOPRAMIDE HCL 10 MG/10 ML UDC GT SCH ×3 (04:28→21:11)
[2018-08-17] MEDS: BLOOD SUGAR DIAGNOSTIC 1 EACH STRIP IN SCH ×3 (05:36→18:15)
[2018-08-17] MEDS: INSULIN REGULAR, HUMAN 100 UNIT/ML 3 ML VIAL SQ PRN ×3 (05:37→18:16)
[2018-08-17 06:18] VITALS: BP 136/59
[2018-08-17 07:46] VITALS: BP 140/74
[2018-08-17] MEDS: MULTIVIT W/MINERALS 1 TAB TABLET GT SCH (09:00)
[2018-08-17] MEDS: ASCORBIC ACID 500 MG TABLET GT SCH (09:00)
[2018-08-17] MEDS: ZINC SULFATE 220 MG CAPSULE GT SCH (09:00)
[2018-08-17] MEDS: ACIDOPHILUS/BULGARICUS 1 EACH TAB.CHEW GT SCH ×2 (09:00→21:11)
[2018-08-17] MEDS: POVIDONE-IODINE OINT 28.4 GM TUBE TP SCH ×4 (09:00→21:11)
[2018-08-17] MEDS: MAGNESIUM OXIDE 400 MG TABLET GT SCH (09:00)
[2018-08-17] MEDS: METOPROLOL TARTRATE 25 MG TABLET GT SCH ×2 (09:00→21:11)
[2018-08-17] MEDS: AMLODIPINE BESYLATE 5 MG TABLET GT SCH (09:00)
[2018-08-17] MEDS: Z GUARD REMEDY 4 OZ OINT TP SCH ×4 (09:00→21:12)
[2018-08-17] MEDS: VITS A AND D/WHITE PET/LANOLIN 5 GM PACKET TP SCH ×2 (09:00→21:12)
[2018-08-17] MEDS: PROSTAT (PYXIS) 30 ML UDC GT SCH ×2 (09:00→17:00)
[2018-08-17] MEDS: DOCUSATE SODIUM LIQ 100 MG/10 ML UDC GT SCH (09:00)
[2018-08-17] MEDS: HYDROGEN PEROXIDE 480 ML BOTTLE TP SCH ×2 (09:00→21:12)
[2018-08-17 12:05] VITALS: BP 133/66
[2018-08-17] MEDS: GLUCERNA 1.2 1,000 ML BOTTLE GT PRN (13:44)
[2018-08-17 18:00] VITALS: BP 126/72
[2018-08-17 19:48] VITALS: BP 137/64
[2018-08-17] MEDS: SENNOSIDES 8.6 MG TABLET GT SCH (21:12)
[2018-08-17] MEDS: INSULIN DETEMIR 100 UNIT/ML CARTRIDGE SQ SCH (21:13)
[2018-08-18] VITALS: BP 139/75
[2018-08-18] MEDS: BLOOD SUGAR DIAGNOSTIC 1 EACH STRIP IN SCH ×4 (00:03→17:17)
[2018-08-18] MEDS: CLONIDINE HCL 0.1 MG TABLET GT PRN (00:04)
[2018-08-18] MEDS: INSULIN REGULAR, HUMAN 100 UNIT/ML 3 ML VIAL SQ PRN ×4 (00:06→17:20)
[2018-08-18] MEDS: IPRATROPIUM NEB FS 0.5 MG/2.5 ML AMPUL.NEB NEB SCH ×4 (01:22→19:17)
[2018-08-18] MEDS: METOCLOPRAMIDE HCL 10 MG/10 ML UDC GT SCH ×3 (05:00→21:00)
[2018-08-18 06:00] VITALS: BP 131/88
[2018-08-18] MEDS: GLUCERNA 1.2 1,000 ML BOTTLE GT PRN (06:30)
[2018-08-18 07:51] VITALS: BP 148/67
[2018-08-18] MEDS: POVIDONE-IODINE OINT 28.4 GM TUBE TP SCH ×3 (09:00→21:00)
[2018-08-18] MEDS: VITS A AND D/WHITE PET/LANOLIN 5 GM PACKET TP SCH ×2 (09:00→21:00)
[2018-08-18] MEDS: Z GUARD REMEDY 4 OZ OINT TP SCH ×4 (09:00→21:00)
[2018-08-18] MEDS: HYDROGEN PEROXIDE 480 ML BOTTLE TP SCH ×2 (09:00→21:00)
[2018-08-18] MEDS: METOPROLOL TARTRATE 25 MG TABLET GT SCH ×2 (09:34→21:00)
[2018-08-18] MEDS: ACIDOPHILUS/BULGARICUS 1 EACH TAB.CHEW GT SCH ×2 (09:34→21:00)
[2018-08-18] MEDS: DOCUSATE SODIUM LIQ 100 MG/10 ML UDC GT SCH (09:34)
[2018-08-18] MEDS: MAGNESIUM OXIDE 400 MG TABLET GT SCH (09:34)
[2018-08-18] MEDS: AMLODIPINE BESYLATE 5 MG TABLET GT SCH (09:35)
[2018-08-18] MEDS: ZINC SULFATE 220 MG CAPSULE GT SCH (09:35)
[2018-08-18] MEDS: MULTIVIT W/MINERALS 1 TAB TABLET GT SCH (09:35)
[2018-08-18] MEDS: ASCORBIC ACID 500 MG TABLET GT SCH (09:35)
[2018-08-18] MEDS: PROSTAT (PYXIS) 30 ML UDC GT SCH ×2 (09:35→17:17)
[2018-08-18 12:00] VITALS: BP 132/53
[2018-08-18 18:00] VITALS: BP 135/71
[2018-08-18 20:20] VITALS: BP 139/63
[2018-08-18] MEDS: INSULIN DETEMIR 100 UNIT/ML CARTRIDGE SQ SCH (22:00)
[2018-08-18] MEDS: SENNOSIDES 8.6 MG TABLET GT SCH (22:01)
[2018-08-19] MEDS: BLOOD SUGAR DIAGNOSTIC 1 EACH STRIP IN SCH ×5 (00:43→23:08)
[2018-08-19] MEDS: INSULIN REGULAR, HUMAN 100 UNIT/ML 3 ML VIAL SQ PRN ×5 (00:44→23:09)
[2018-08-19] MEDS: IPRATROPIUM NEB FS 0.5 MG/2.5 ML AMPUL.NEB NEB SCH ×4 (01:05→19:45)
[2018-08-19 01:14] VITALS: BP 139/63
[2018-08-19] MEDS: METOCLOPRAMIDE HCL 10 MG/10 ML UDC GT SCH ×3 (05:00→20:16)
[2018-08-19] MEDS: GLUCERNA 1.2 1,000 ML BOTTLE GT PRN ×2 (06:12→22:19)
[2018-08-19 06:34] VITALS: BP 139/63
[2018-08-19 07:31] VITALS: BP 149/94
--- NOTE | 2018-08-19 07:44 | NUR ---
Received a female parisa pt on a mechanical vent. PT parisa is secure. Vent is plugged into a red outlet, alarms are set and audible, and BMV is at bedside. Addendum: 08/19/18 at 0745 by SHIMA GONZALES RT Amended: Links added.
[2018-08-19] MEDS: ACIDOPHILUS/BULGARICUS 1 EACH TAB.CHEW GT SCH ×2 (09:06→20:15)
[2018-08-19] MEDS: DOCUSATE SODIUM LIQ 100 MG/10 ML UDC GT SCH (09:06)
[2018-08-19] MEDS: ASCORBIC ACID 500 MG TABLET GT SCH (09:07)
[2018-08-19] MEDS: POVIDONE-IODINE OINT 28.4 GM TUBE TP SCH ×2 (09:07→20:16)
[2018-08-19] MEDS: ZINC SULFATE 220 MG CAPSULE GT SCH (09:07)
[2018-08-19] MEDS: PROSTAT (PYXIS) 30 ML UDC GT SCH ×2 (09:07→17:18)
[2018-08-19] MEDS: MAGNESIUM OXIDE 400 MG TABLET GT SCH (09:07)
[2018-08-19] MEDS: AMLODIPINE BESYLATE 5 MG TABLET GT SCH (09:07)
[2018-08-19] MEDS: METOPROLOL TARTRATE 25 MG TABLET GT SCH ×2 (09:07→20:16)
[2018-08-19] MEDS: Z GUARD REMEDY 4 OZ OINT TP SCH ×4 (09:07→20:16)
[2018-08-19] MEDS: VITS A AND D/WHITE PET/LANOLIN 5 GM PACKET TP SCH ×2 (09:07→20:16)
[2018-08-19] MEDS: MULTIVIT W/MINERALS 1 TAB TABLET GT SCH (09:07)
[2018-08-19] MEDS: HYDROGEN PEROXIDE 480 ML BOTTLE TP SCH ×2 (09:07→20:16)
[2018-08-19 12:00] VITALS: BP 145/69
--- NOTE | 2018-08-19 13:20 | NUR ---
Informed Dr Hunt that pt's blood sugars have been elevated. He reviewed pt's blood sugar levels and ordered to increase Levemir from 10 units SC q HS to 10 units SC BID. Notified pt's daughter.
[2018-08-19 18:43] VITALS: BP 122/61
[2018-08-19 19:50] VITALS: BP 140/69
[2018-08-19] MEDS: INSULIN DETEMIR 100 UNIT/ML CARTRIDGE SQ SCH (21:16)
[2018-08-19] MEDS: SENNOSIDES 8.6 MG TABLET GT SCH (21:16)
[2018-08-20 00:43] VITALS: BP 132/66
[2018-08-20] MEDS: IPRATROPIUM NEB FS 0.5 MG/2.5 ML AMPUL.NEB NEB SCH ×4 (01:19→19:27)
[2018-08-20] MEDS: METOCLOPRAMIDE HCL 10 MG/10 ML UDC GT SCH ×3 (05:04→20:25)
[2018-08-20] MEDS: BLOOD SUGAR DIAGNOSTIC 1 EACH STRIP IN SCH ×4 (05:59→23:13)
[2018-08-20] MEDS: INSULIN REGULAR, HUMAN 100 UNIT/ML 3 ML VIAL SQ PRN ×4 (06:00→23:14)
[2018-08-20 06:20] VITALS: BP 124/70
[2018-08-20 08:06] VITALS: BP 133/70
[2018-08-20] MEDS: METOPROLOL TARTRATE 25 MG TABLET GT SCH ×2 (08:52→20:25)
[2018-08-20] MEDS: MAGNESIUM OXIDE 400 MG TABLET GT SCH (08:52)
[2018-08-20] MEDS: PROSTAT (PYXIS) 30 ML UDC GT SCH ×2 (08:52→17:00)
[2018-08-20] MEDS: ZINC SULFATE 220 MG CAPSULE GT SCH (08:52)
[2018-08-20] MEDS: MULTIVIT W/MINERALS 1 TAB TABLET GT SCH (08:52)
[2018-08-20] MEDS: ACIDOPHILUS/BULGARICUS 1 EACH TAB.CHEW GT SCH ×2 (08:52→20:24)
[2018-08-20] MEDS: AMLODIPINE BESYLATE 5 MG TABLET GT SCH (08:53)
[2018-08-20] MEDS: ASCORBIC ACID 500 MG TABLET GT SCH (08:53)
[2018-08-20] MEDS: DOCUSATE SODIUM LIQ 100 MG/10 ML UDC GT SCH (08:53)
[2018-08-20] MEDS: INSULIN DETEMIR 100 UNIT/ML CARTRIDGE SQ SCH ×2 (08:54→21:13)
[2018-08-20] MEDS: HYDROGEN PEROXIDE 480 ML BOTTLE TP SCH ×2 (09:00→20:25)
[2018-08-20] MEDS: Z GUARD REMEDY 4 OZ OINT TP SCH ×4 (09:00→20:25)
[2018-08-20] MEDS: VITS A AND D/WHITE PET/LANOLIN 5 GM PACKET TP SCH ×2 (09:00→20:25)
[2018-08-20] MEDS: POVIDONE-IODINE OINT 28.4 GM TUBE TP SCH ×2 (09:00→20:25)
--- NOTE | 2018-08-20 18:00 | NUR ---
Dr. Aguirre, Infectious Disease MD he has spoken with Rhonda, infection control nurse and said that isolation can be discontinue since the wound being isolated is healed and no wound to reculture. Order carried out. Will dc isolation once room and patient is clean per protocol.
[2018-08-20] MEDS: GLUCERNA 1.2 1,000 ML BOTTLE GT PRN (18:12)
[2018-08-20 18:53] VITALS: BP_SYST 128; BP_SYST 133; BP_DIAS 70; BP_DIAS 72
--- NOTE | 2018-08-20 19:32 | NUR ---
RECEIVED TRACH PT ON ME[facility] VENT ON NOTED SETTINGS PER MD ORDERS. TRACH IS PATENT AND SECURED. HEAD OF BUSINESS DEVELOPMENT DONE. Q6 BREATHING TX GIVEN PER MD'S ORDER. NO ADVERSE REACTION NOTED. SX DONE PRN. VENT PLUGGED INTO RED OUTLET. ALARMS ON AND AUDIBLE. AMBU BAG @ BEDSIDE. NO RESP DISTRESS AT THIS TIME. WILL CONT TO MONITOR PT.
[2018-08-20 20:30] VITALS: BP 147/72
[2018-08-20] MEDS: SENNOSIDES 8.6 MG TABLET GT SCH (21:13)
[2018-08-21 00:52] VITALS: BP 130/66
[2018-08-21] MEDS: IPRATROPIUM NEB FS 0.5 MG/2.5 ML AMPUL.NEB NEB SCH ×4 (01:35→19:58)
[2018-08-21] MEDS: METOCLOPRAMIDE HCL 10 MG/10 ML UDC GT SCH ×3 (05:05→20:37)
[2018-08-21] MEDS: BLOOD SUGAR DIAGNOSTIC 1 EACH STRIP IN SCH ×4 (06:13→23:28)
[2018-08-21] MEDS: INSULIN REGULAR, HUMAN 100 UNIT/ML 3 ML VIAL SQ PRN ×4 (06:14→23:28)
[2018-08-21 06:27] VITALS: BP 120/60
[2018-08-21 07:52] VITALS: BP 146/78
[2018-08-21] MEDS: Z GUARD REMEDY 4 OZ OINT TP SCH ×4 (09:00→20:37)
[2018-08-21] MEDS: VITS A AND D/WHITE PET/LANOLIN 5 GM PACKET TP SCH ×2 (09:00→20:37)
[2018-08-21] MEDS: POVIDONE-IODINE OINT 28.4 GM TUBE TP SCH ×2 (09:00→20:37)
[2018-08-21] MEDS: HYDROGEN PEROXIDE 480 ML BOTTLE TP SCH ×2 (09:00→20:37)
[2018-08-21] MEDS: ACIDOPHILUS/BULGARICUS 1 EACH TAB.CHEW GT SCH ×2 (09:01→20:36)
[2018-08-21] MEDS: DOCUSATE SODIUM LIQ 100 MG/10 ML UDC GT SCH (09:01)
[2018-08-21] MEDS: METOPROLOL TARTRATE 25 MG TABLET GT SCH ×2 (09:01→20:37)
[2018-08-21] MEDS: MAGNESIUM OXIDE 400 MG TABLET GT SCH (09:01)
[2018-08-21] MEDS: AMLODIPINE BESYLATE 5 MG TABLET GT SCH (09:02)
[2018-08-21] MEDS: ASCORBIC ACID 500 MG TABLET GT SCH (09:02)
[2018-08-21] MEDS: MULTIVIT W/MINERALS 1 TAB TABLET GT SCH (09:02)
[2018-08-21] MEDS: PROSTAT (PYXIS) 30 ML UDC GT SCH ×2 (09:02→17:38)
[2018-08-21] MEDS: ZINC SULFATE 220 MG CAPSULE GT SCH (09:02)
[2018-08-21] MEDS: INSULIN DETEMIR 100 UNIT/ML CARTRIDGE SQ SCH ×2 (09:10→21:13)
[2018-08-21 12:30] VITALS: BP 128/72
[2018-08-21] MEDS: GLUCERNA 1.2 1,000 ML BOTTLE GT PRN (12:48)
--- NOTE | 2018-08-21 14:33 | NUR ---
YNES communicated with pt.'s daughter Daily to inform her about this Tuesday 08/22 ART mirlandeg
--- NOTE | 2018-08-21 18:17 | NUR ---
Resident showered this morning, up in mike chair in activity room and terminal cleaning done in her room. Isolation discontinued, left a message to Jennifer, daughter regarding discontinuation of isolation.
[2018-08-21 18:40] VITALS: BP 146/78
[2018-08-21 19:51] VITALS: BP 121/74
[2018-08-21] MEDS: SENNOSIDES 8.6 MG TABLET GT SCH (21:13)
[2018-08-22] MEDS: IPRATROPIUM NEB FS 0.5 MG/2.5 ML AMPUL.NEB NEB SCH ×4 (01:12→20:00)
[2018-08-22 01:17] VITALS: BP 116/76
[2018-08-22] MEDS: GLUCERNA 1.2 1,000 ML BOTTLE GT PRN (05:40)
[2018-08-22] MEDS: MAGNESIUM HYDROXIDE 30 ML UDC GT PRN (05:40)
[2018-08-22] MEDS: METOCLOPRAMIDE HCL 10 MG/10 ML UDC GT SCH ×3 (05:40→20:48)
[2018-08-22] MEDS: BLOOD SUGAR DIAGNOSTIC 1 EACH STRIP IN SCH ×3 (06:07→17:09)
[2018-08-22] MEDS: INSULIN REGULAR, HUMAN 100 UNIT/ML 3 ML VIAL SQ PRN ×3 (06:08→17:10)
[2018-08-22 06:11] VITALS: BP 127/65
--- NOTE | 2018-08-22 07:45 | NUR ---
Received female trach pt unlabored on a mechanical vent. PT trach is secure. Vent is plugged into a red outlet, alarms are set and audible, and BMV is at bedside. Addendum: 08/22/18 at 0746 by SHIMA GONZALES RT Amended: Links added.
[2018-08-22 07:49] VITALS: BP 123/71
[2018-08-22] MEDS: AMLODIPINE BESYLATE 5 MG TABLET GT SCH (09:01)
[2018-08-22] MEDS: PROSTAT (PYXIS) 30 ML UDC GT SCH ×2 (09:01→17:09)
[2018-08-22] MEDS: ASCORBIC ACID 500 MG TABLET GT SCH (09:01)
[2018-08-22] MEDS: METOPROLOL TARTRATE 25 MG TABLET GT SCH ×2 (09:01→20:48)
[2018-08-22] MEDS: MAGNESIUM OXIDE 400 MG TABLET GT SCH (09:01)
[2018-08-22] MEDS: ZINC SULFATE 220 MG CAPSULE GT SCH (09:01)
[2018-08-22] MEDS: ACIDOPHILUS/BULGARICUS 1 EACH TAB.CHEW GT SCH ×2 (09:01→20:45)
[2018-08-22] MEDS: DOCUSATE SODIUM LIQ 100 MG/10 ML UDC GT SCH (09:01)
[2018-08-22] MEDS: MULTIVIT W/MINERALS 1 TAB TABLET GT SCH (09:01)
[2018-08-22] MEDS: HYDROGEN PEROXIDE 480 ML BOTTLE TP SCH ×2 (09:05→20:48)
[2018-08-22] MEDS: VITS A AND D/WHITE PET/LANOLIN 5 GM PACKET TP SCH ×2 (09:05→20:48)
[2018-08-22] MEDS: Z GUARD REMEDY 4 OZ OINT TP SCH ×4 (09:05→20:48)
[2018-08-22] MEDS: INSULIN DETEMIR 100 UNIT/ML CARTRIDGE SQ SCH ×2 (09:05→21:15)
[2018-08-22] MEDS: POVIDONE-IODINE OINT 28.4 GM TUBE TP SCH ×2 (09:05→20:48)
[2018-08-22 12:30] VITALS: BP 126/72
--- NOTE | 2018-08-22 17:58 | NUR ---
INTERDISCIPLINARY TEAM CONFERENCE (IDT) was held today. Resident's daughter Daily unable to attend today's IDT meeting. Dr. Agarwal and the interdisciplinary team reviewed the current plan of care in detail. Orders as well as treatment and medications were reviewed. Contact isolation has been discontinued. L 1st metatarsal wound healed. Dr. Dudley assessed the L foot wound, , NNO given. Dr. Agarwal ordered dietary evaluation due to weight gain. Patient gained 38 lbs since admission (102-140lbs). Jennifer, daughter made aware of above information after the meeting.
[2018-08-22 20:11] VITALS: BP 130/72
[2018-08-22] MEDS: SENNOSIDES 8.6 MG TABLET GT SCH (21:15)
[2018-08-23] MEDS: BLOOD SUGAR DIAGNOSTIC 1 EACH STRIP IN SCH ×5 (00:04→23:38)
[2018-08-23] MEDS: INSULIN REGULAR, HUMAN 100 UNIT/ML 3 ML VIAL SQ PRN ×5 (00:07→23:39)
[2018-08-23] MEDS: GLUCERNA 1.2 1,000 ML BOTTLE GT PRN ×2 (00:07→18:47)
[2018-08-23 00:29] VITALS: BP 132/77
[2018-08-23] MEDS: IPRATROPIUM NEB FS 0.5 MG/2.5 ML AMPUL.NEB NEB SCH ×4 (02:29→19:39)
[2018-08-23] MEDS: METOCLOPRAMIDE HCL 10 MG/10 ML UDC GT SCH ×3 (05:55→20:16)
[2018-08-23] MEDS: MAGNESIUM HYDROXIDE 30 ML UDC GT PRN (05:55)
[2018-08-23 06:03] VITALS: BP 136/88
[2018-08-23 07:52] VITALS: BP 128/68
[2018-08-23] MEDS: POVIDONE-IODINE OINT 28.4 GM TUBE TP SCH ×2 (09:00→20:16)
[2018-08-23] MEDS: VITS A AND D/WHITE PET/LANOLIN 5 GM PACKET TP SCH ×2 (09:00→20:16)
[2018-08-23] MEDS: HYDROGEN PEROXIDE 480 ML BOTTLE TP SCH ×2 (09:00→20:16)
[2018-08-23] MEDS: Z GUARD REMEDY 4 OZ OINT TP SCH ×4 (09:00→20:16)
[2018-08-23] MEDS: DOCUSATE SODIUM LIQ 100 MG/10 ML UDC GT SCH (09:34)
[2018-08-23] MEDS: ACIDOPHILUS/BULGARICUS 1 EACH TAB.CHEW GT SCH ×2 (09:35→20:15)
[2018-08-23] MEDS: PROSTAT (PYXIS) 30 ML UDC GT SCH ×2 (09:35→17:00)
[2018-08-23] MEDS: METOPROLOL TARTRATE 25 MG TABLET GT SCH ×2 (09:39→20:16)
[2018-08-23] MEDS: MAGNESIUM OXIDE 400 MG TABLET GT SCH (09:39)
[2018-08-23] MEDS: MULTIVIT W/MINERALS 1 TAB TABLET GT SCH (09:39)
[2018-08-23] MEDS: AMLODIPINE BESYLATE 5 MG TABLET GT SCH (09:40)
[2018-08-23] MEDS: INSULIN DETEMIR 100 UNIT/ML CARTRIDGE SQ SCH ×2 (09:47→21:31)
[2018-08-23 12:00] VITALS: BP 132/80
--- NOTE | 2018-08-23 13:55 | NUR ---
Dr Patrick ordered to decrease feeding of Glucerna 1.2 from 70 mL/hr to 60 mL/hr x 20 hours a day and to DC Prostat per trim operator's recommendations. Pt's wounds have healed.
[2018-08-23 18:00] VITALS: BP 126/74
[2018-08-23 20:20] VITALS: BP 118/74
[2018-08-23] MEDS: SENNOSIDES 8.6 MG TABLET GT SCH (21:32)
[2018-08-24 00:28] VITALS: BP 128/70
[2018-08-24] MEDS: IPRATROPIUM NEB FS 0.5 MG/2.5 ML AMPUL.NEB NEB SCH ×4 (01:19→19:20)
[2018-08-24] MEDS: BLOOD SUGAR DIAGNOSTIC 1 EACH STRIP IN SCH ×4 (05:32→23:59)
[2018-08-24] MEDS: METOCLOPRAMIDE HCL 10 MG/10 ML UDC GT SCH ×3 (05:32→21:06)
[2018-08-24] MEDS: INSULIN REGULAR, HUMAN 100 UNIT/ML 3 ML VIAL SQ PRN ×3 (05:33→17:42)
[2018-08-24 06:02] VITALS: BP 116/58
[2018-08-24 07:48] VITALS: BP 134/65
[2018-08-24] MEDS: MAGNESIUM OXIDE 400 MG TABLET GT SCH (09:00)
[2018-08-24] MEDS: INSULIN DETEMIR 100 UNIT/ML CARTRIDGE SQ SCH ×2 (09:00→21:07)
[2018-08-24] MEDS: Z GUARD REMEDY 4 OZ OINT TP SCH ×4 (09:00→21:07)
[2018-08-24] MEDS: PROSTAT (PYXIS) 30 ML UDC GT SCH ×2 (09:00→17:31)
[2018-08-24] MEDS: VITS A AND D/WHITE PET/LANOLIN 5 GM PACKET TP SCH ×2 (09:00→21:07)
[2018-08-24] MEDS: ACIDOPHILUS/BULGARICUS 1 EACH TAB.CHEW GT SCH ×2 (09:00→21:04)
[2018-08-24] MEDS: AMLODIPINE BESYLATE 5 MG TABLET GT SCH (09:00)
[2018-08-24] MEDS: POVIDONE-IODINE OINT 28.4 GM TUBE TP SCH ×2 (09:00→21:07)
[2018-08-24] MEDS: DOCUSATE SODIUM LIQ 100 MG/10 ML UDC GT SCH (09:00)
[2018-08-24] MEDS: METOPROLOL TARTRATE 25 MG TABLET GT SCH ×2 (09:00→21:21)
[2018-08-24] MEDS: HYDROGEN PEROXIDE 480 ML BOTTLE TP SCH ×2 (09:00→21:07)
[2018-08-24] MEDS: MULTIVIT W/MINERALS 1 TAB TABLET GT SCH (09:00)
--- NOTE | 2018-08-24 09:00 | NUR ---
Seen and examined by Dr. Patrick, no new order given.
--- NOTE | 2018-08-24 12:00 | NUR ---
Seen and examined by GUN NUMBER Carole Dodd, no new order given.
[2018-08-24] MEDS: GLUCERNA 1.2 1,000 ML BOTTLE GT PRN (13:19)
[2018-08-24 15:33] VITALS: BP 118/60
[2018-08-24 18:06] VITALS: BP 105/73
[2018-08-24 19:43] VITALS: BP 142/72
[2018-08-24] MEDS: SENNOSIDES 8.6 MG TABLET GT SCH (21:07)
[2018-08-25] VITALS: BP 143/71
[2018-08-25] MEDS: INSULIN REGULAR, HUMAN 100 UNIT/ML 3 ML VIAL SQ PRN ×5 (00:01→23:19)
[2018-08-25] MEDS: IPRATROPIUM NEB FS 0.5 MG/2.5 ML AMPUL.NEB NEB SCH ×4 (01:42→19:58)
[2018-08-25] MEDS: BLOOD SUGAR DIAGNOSTIC 1 EACH STRIP IN SCH ×4 (05:21→23:18)
[2018-08-25] MEDS: METOCLOPRAMIDE HCL 10 MG/10 ML UDC GT SCH ×3 (05:21→20:12)
[2018-08-25] MEDS: CLONIDINE HCL 0.1 MG TABLET GT PRN (05:22)
--- NOTE | 2018-08-25 05:46 | NUR ---
RT NOTED PT REC'D TRACHED ON [facility] VENT ON AC MODE. NO RESP DISTRESS OR SOB NOTED. SX'D FOR MOD AMT OF PALE YELLOW SECRETIONS. ALARMS ARE SET AND AUDIBLE. VENT PLUGGED INTO RED OUTLET. AMBU BAG BEDSIDE. WILL CONTINUE TO MONITOR. Addendum: 08/25/18 at 0549 by TALA YOA RT Amended: Links added.
[2018-08-25 06:00] VITALS: BP 141/71
[2018-08-25 07:30] VITALS: BP 146/77
[2018-08-25] MEDS: ACIDOPHILUS/BULGARICUS 1 EACH TAB.CHEW GT SCH ×2 (08:30→20:11)
[2018-08-25] MEDS: DOCUSATE SODIUM LIQ 100 MG/10 ML UDC GT SCH (08:30)
[2018-08-25] MEDS: METOPROLOL TARTRATE 25 MG TABLET GT SCH ×2 (08:31→20:12)
[2018-08-25] MEDS: MAGNESIUM OXIDE 400 MG TABLET GT SCH (08:31)
[2018-08-25] MEDS: AMLODIPINE BESYLATE 5 MG TABLET GT SCH (08:31)
[2018-08-25] MEDS: MULTIVIT W/MINERALS 1 TAB TABLET GT SCH (08:31)
[2018-08-25] MEDS: PROSTAT (PYXIS) 30 ML UDC GT SCH ×2 (08:31→17:23)
[2018-08-25] MEDS: ACETAMINOPHEN 650 MG/20 ML UDC- SA PATIENTS-FEVER ONLY GT PRN ×2 (08:34→17:25)
[2018-08-25] MEDS: INSULIN DETEMIR 100 UNIT/ML CARTRIDGE SQ SCH ×2 (08:49→21:29)
[2018-08-25] MEDS: VITS A AND D/WHITE PET/LANOLIN 5 GM PACKET TP SCH ×2 (09:00→20:13)
[2018-08-25] MEDS: POVIDONE-IODINE OINT 28.4 GM TUBE TP SCH ×2 (09:00→20:12)
[2018-08-25] MEDS: Z GUARD REMEDY 4 OZ OINT TP SCH ×4 (09:00→20:13)
[2018-08-25] MEDS: HYDROGEN PEROXIDE 480 ML BOTTLE TP SCH ×2 (09:00→20:12)
[2018-08-25] MEDS: GLUCERNA 1.2 1,000 ML BOTTLE GT PRN (10:56)
[2018-08-25 12:00] VITALS: BP 147/82
--- NOTE | 2018-08-25 18:11 | NUR ---
RT END OF THE SHIFT REPORT, PT. 83 Y OLD FEMALE REC. 0700 AM AWAKE BUT NOT RESPONSIVE. PT. IS TRACH'D SHILEY # 8 ON MECHANICAL VENT. WITH NOTED AC MODE. NO RESP DISTRESS NOR SOB NOTED. EQUAL CHEST RISE NOTED, B/S RHONCHI BILATERALLY SX'D FOR LARGE AMT. WHITE SECRETIONS. TX'S GIVEN INLINE AND NO ADVERSE REACTION @ 1300 MEDICINE NOT AVAILABLE REORDERED, ALSO RN NOTIFIED FOR REORDERING MED. ALARMS ARE SET AND FUNCTIONAL. VENT PLUGGED INTO RED OUTLET. HME CHANGED MOLD FILLER PLASTIC DOLLS DONE. AMBU BAG REMAIN AT THE BEDSIDE. WILL CONTINUE TO MONITOR CLOSELY AND REPORT WILL PASS TO PM SHIFT. Addendum: 08/25/18 at 1815 by HORACIO ZALDIVAR RT Amended: Links added.
--- NOTE | 2018-08-25 18:17 | NUR ---
Dr Patrick ordered to increase insulin detemir from 10 units to 12 units SC q 12 hours. Addendum: 08/25/18 at 1817 by MARCELLA MITCHELL RN Informed pt's daughter.
[2018-08-25 18:30] VITALS: BP 130/76
[2018-08-25 19:47] VITALS: BP 128/66
[2018-08-25] MEDS: SENNOSIDES 8.6 MG TABLET GT SCH (21:34)
[2018-08-26] VITALS (7 sets, daily range): BP systolic 119–137; BP diastolic 53–74
[2018-08-26] MEDS: IPRATROPIUM NEB FS 0.5 MG/2.5 ML AMPUL.NEB NEB SCH ×4 (01:04→19:40)
[2018-08-26] MEDS: GLUCERNA 1.2 1,000 ML BOTTLE GT PRN (05:47)
[2018-08-26] MEDS: METOCLOPRAMIDE HCL 10 MG/10 ML UDC GT SCH ×3 (05:57→20:09)
[2018-08-26] MEDS: BLOOD SUGAR DIAGNOSTIC 1 EACH STRIP IN SCH ×4 (06:10→23:28)
[2018-08-26] MEDS: INSULIN REGULAR, HUMAN 100 UNIT/ML 3 ML VIAL SQ PRN ×4 (06:12→23:30)
[2018-08-26] MEDS: DOCUSATE SODIUM LIQ 100 MG/10 ML UDC GT SCH (08:08)
[2018-08-26] MEDS: ACIDOPHILUS/BULGARICUS 1 EACH TAB.CHEW GT SCH ×2 (08:08→20:09)
[2018-08-26] MEDS: MULTIVIT W/MINERALS 1 TAB TABLET GT SCH (08:09)
[2018-08-26] MEDS: AMLODIPINE BESYLATE 5 MG TABLET GT SCH (08:09)
[2018-08-26] MEDS: MAGNESIUM OXIDE 400 MG TABLET GT SCH (08:09)
[2018-08-26] MEDS: PROSTAT (PYXIS) 30 ML UDC GT SCH ×2 (08:09→17:33)
[2018-08-26] MEDS: METOPROLOL TARTRATE 25 MG TABLET GT SCH ×2 (08:09→20:09)
[2018-08-26] MEDS: INSULIN DETEMIR 100 UNIT/ML CARTRIDGE SQ SCH ×2 (08:10→21:44)
[2018-08-26] MEDS: POVIDONE-IODINE OINT 28.4 GM TUBE TP SCH ×2 (09:00→20:10)
[2018-08-26] MEDS: Z GUARD REMEDY 4 OZ OINT TP SCH ×4 (09:00→20:10)
[2018-08-26] MEDS: HYDROGEN PEROXIDE 480 ML BOTTLE TP SCH ×2 (09:00→20:10)
[2018-08-26] MEDS: VITS A AND D/WHITE PET/LANOLIN 5 GM PACKET TP SCH ×2 (09:00→20:10)
--- NOTE | 2018-08-26 10:10 | NUR ---
Seen and examined by Dr. Agarwal reported patient with T 100.3, NNO given, cooling measures rendered and will continue to monitor temperature.
--- NOTE | 2018-08-26 14:45 | NUR ---
Notified Dr. Aguirre, Infectious Disease patient with elevated temperature 101.8, 104, 135/65 R 15, 95% O2 sat on ventilator. New order given to do chest Xray, UA and C&S, Sputum culture, bood culture x 2, CBC and Procalcitonin level in AM. Orders carried out. Meanwhile said to provide cooling measure and give Tylenol PRN for fever. Notified resident's daughter Jennifer of change in condition and new orders.
[2018-08-26 17:25] LABS: APPEARANCE,URINE CLOUDY (CLEAR); BILIRUBIN,URINE NEGATIVE (NEGATIVE); BLOOD, URINE TRACE-INTA Ery/uL (NEGATIVE); COLOR,URINE YELLOW (YELLOW); KETONES,URINE NEGATIVE (NEGATIVE); LEUKOCYTE ESTERASE ,URINE 3+ (NEGATIVE); NITRITE, URINE NEGATIVE (NEGATIVE); PROTEIN,URINE 2+ mg/dl (NEGATIVE); UGLUCOSE TRACE mg/dL (NEGATIVE); UROBILINOGEN,URINE 0.2 EU/dL (0.2)
[2018-08-26 17:40] LABS: BACTERIA,URINE Moderate /HPF (None Seen); SQUAMOUS EPITHELIAL CELL,UR Many /HPF (None Seen)
[2018-08-26 17:41] LABS: WBC,URINE 21-50 /HPF (0-3)
[2018-08-26 17:42] LABS: YEAST,URINE Many /HPF (None Seen)
[2018-08-26] MEDS: SENNOSIDES 8.6 MG TABLET GT SCH (21:44)
[2018-08-27 00:41] VITALS: BP 126/70
[2018-08-27] MEDS: IPRATROPIUM NEB FS 0.5 MG/2.5 ML AMPUL.NEB NEB SCH ×4 (01:26→19:21)
[2018-08-27] MEDS: METOCLOPRAMIDE HCL 10 MG/10 ML UDC GT SCH ×3 (05:04→20:20)
[2018-08-27] MEDS: BLOOD SUGAR DIAGNOSTIC 1 EACH STRIP IN SCH ×4 (05:59→23:10)
[2018-08-27] MEDS: INSULIN REGULAR, HUMAN 100 UNIT/ML 3 ML VIAL SQ PRN ×4 (06:00→23:11)
[2018-08-27 06:34] VITALS: BP 130/66
--- NOTE | 2018-08-27 06:53 | NUR ---
RT PATIENT REC'D TRACHED ON [facility] VENT WITH ORDERED SETTING BIRDIE WELL. VENT ALARMS CHECKED + AUDIBLE. TRACH SECURE AND IN PROPER POSITION. CUFF CHECKED IDENTITY MANAGEMENT CONSULTANT. PATIENT SUCTIONED WITH MOD AMT PALE SEMITHICK SECRETIONS. AMBU BAG AT HOB Addendum: 08/27/18 at 0904 by HAIM CISSE RT Amended: Links added.
[2018-08-27 07:19] LABS: BASOPHILS # (AUTO) 0.1 /CMM (0.0-0.2); BASOPHILS % (AUTO) 0.5 % (0.0-2.0); EOSINOPHILS % (AUTO) 2.2 % (0.0-6.0); HEMATOCRIT 36 % (33-45); HEMOGLOBIN 11.7 g/dL (11.5-14.8); LYMPHOCYTES % (AUTO) 7.2 % (20.0-44.0); MEAN CORPUSCULAR HGB CONC 32 g/dl (31.0-36.0); MEAN CORPUSCULAR VOLUME 78 fL (82-100); MONOCYTES # (AUTO) 1.1 /CMM (0.1-1.30); MONOCYTES % (AUTO) 8.6 % (2.0-12.0); NEUTROPHILS # (AUTO) 10.8 /CMM (1.8-8.9); NEUTROPHILS % (AUTO) 81.5 % (43.0-81.0); PLATELET COUNT (AUTO) 223 /CMM (150-450); RED BLOOD CELL COUNT(AUTO) 4.62 MIL/uL (4.0-5.2); WHITE BLOOD COUNT (AUTO) 13.3 K/uL (4.3-11.0)
[2018-08-27 07:52] VITALS: BP 132/73
[2018-08-27] MEDS: DOCUSATE SODIUM LIQ 100 MG/10 ML UDC GT SCH (08:31)
[2018-08-27] MEDS: MULTIVIT W/MINERALS 1 TAB TABLET GT SCH (08:31)
[2018-08-27] MEDS: METOPROLOL TARTRATE 25 MG TABLET GT SCH ×2 (08:31→20:20)
[2018-08-27] MEDS: MAGNESIUM OXIDE 400 MG TABLET GT SCH (08:31)
[2018-08-27] MEDS: PROSTAT (PYXIS) 30 ML UDC GT SCH ×2 (08:31→17:00)
[2018-08-27] MEDS: ACIDOPHILUS/BULGARICUS 1 EACH TAB.CHEW GT SCH ×2 (08:31→20:20)
[2018-08-27] MEDS: AMLODIPINE BESYLATE 5 MG TABLET GT SCH (08:31)
[2018-08-27] MEDS: Z GUARD REMEDY 4 OZ OINT TP SCH ×4 (08:32→20:20)
[2018-08-27] MEDS: VITS A AND D/WHITE PET/LANOLIN 5 GM PACKET TP SCH ×2 (08:32→20:21)
[2018-08-27] MEDS: POVIDONE-IODINE OINT 28.4 GM TUBE TP SCH ×2 (08:32→20:20)
[2018-08-27] MEDS: HYDROGEN PEROXIDE 480 ML BOTTLE TP SCH ×2 (08:32→20:20)
[2018-08-27] MEDS: INSULIN DETEMIR 100 UNIT/ML CARTRIDGE SQ SCH ×2 (08:32→21:28)
--- NOTE | 2018-08-27 09:40 | NUR ---
COMMUNITY OUTREACH MANAGER Carole Dodd made her rounds, and made aware that result of CBC is available WBC 13.3 and all other culture is pending. Patient is afebrile at this time, she said to monitor for now.
[2018-08-27 12:30] VITALS: BP 132/73
--- NOTE | 2018-08-27 14:50 | NUR ---
Noted an IV antibiotic order from INFORMATION ASSISTANT Carole Dodd to start patient on Cefepime and Vancomycin pharmacy to dose. Orders were faxed to both [place] and [facility] pharmacy. Awaiting for dosing.
--- NOTE | 2018-08-27 17:00 | NUR ---
Received a call from [facility] IV pharmacist and said that medication is covered by patient's insurance and dosing sent. HL inserted in the R hand G #22 x 1 attempt with good blood return. Resident's daughter Jennifer notified of new order . Resident's GT red and hard to touch and referred to AD Sparks. assessed the site, he said to continue with ATB and if redness does not subside in a couple of days to give him a call. Endorsed.
[2018-08-27] MEDS ORDERED: VANCOMYCIN 1 GM in IV D5W 250ml IV SCH ×2 (18:00→20:00)
[2018-08-27] MEDS: GLUCERNA 1.2 1,000 ML BOTTLE GT PRN (18:10)
[2018-08-27 18:55] VITALS: BP 112/69
[2018-08-27 20:20] VITALS: BP 113/62
[2018-08-27] MEDS: CEFEPIME 1 GM in IV D5W 50 ML IV SCH (20:34)
[2018-08-27] MEDS: SENNOSIDES 8.6 MG TABLET GT SCH (21:28)
[2018-08-28 00:40] VITALS: BP 116/60
[2018-08-28] MEDS: IPRATROPIUM NEB FS 0.5 MG/2.5 ML AMPUL.NEB NEB SCH ×4 (01:20→20:07)
[2018-08-28] MEDS: METOCLOPRAMIDE HCL 10 MG/10 ML UDC GT SCH ×3 (05:26→21:01)
[2018-08-28] MEDS: BLOOD SUGAR DIAGNOSTIC 1 EACH STRIP IN SCH ×4 (06:12→23:31)
[2018-08-28] MEDS: INSULIN REGULAR, HUMAN 100 UNIT/ML 3 ML VIAL SQ PRN ×4 (06:13→23:32)
[2018-08-28 06:26] VITALS: BP 118/58
--- NOTE | 2018-08-28 06:30 | NUR ---
IV ANTIBIOTIC GIVEN LAST NIGHT NO ADVERSE REACTION NOTED.AFEBRILE.
[2018-08-28 07:56] VITALS: BP 142/70
[2018-08-28] MEDS: CEFEPIME 1 GM in IV D5W 50 ML IV SCH ×2 (08:00→20:12)
[2018-08-28] MEDS: ACIDOPHILUS/BULGARICUS 1 EACH TAB.CHEW GT SCH ×2 (08:56→21:01)
[2018-08-28] MEDS: AMLODIPINE BESYLATE 5 MG TABLET GT SCH (08:56)
[2018-08-28] MEDS: METOPROLOL TARTRATE 25 MG TABLET GT SCH ×2 (08:56→21:01)
[2018-08-28] MEDS: DOCUSATE SODIUM LIQ 100 MG/10 ML UDC GT SCH (08:56)
[2018-08-28] MEDS: MAGNESIUM OXIDE 400 MG TABLET GT SCH (08:56)
[2018-08-28] MEDS: MULTIVIT W/MINERALS 1 TAB TABLET GT SCH (08:57)
[2018-08-28] MEDS: PROSTAT (PYXIS) 30 ML UDC GT SCH ×2 (08:57→17:59)
[2018-08-28] MEDS: Z GUARD REMEDY 4 OZ OINT TP SCH ×4 (09:16→21:02)
[2018-08-28] MEDS: POVIDONE-IODINE OINT 28.4 GM TUBE TP SCH ×2 (09:16→21:01)
[2018-08-28] MEDS: VITS A AND D/WHITE PET/LANOLIN 5 GM PACKET TP SCH ×2 (09:16→21:02)
[2018-08-28] MEDS: INSULIN DETEMIR 100 UNIT/ML CARTRIDGE SQ SCH ×2 (09:16→21:02)
[2018-08-28] MEDS: HYDROGEN PEROXIDE 480 ML BOTTLE TP SCH ×2 (09:16→21:02)
[2018-08-28 12:30] VITALS: BP 142/70
--- NOTE | 2018-08-28 16:33 | NUR ---
Relayed magnesium level 3.3 (06/02/18) to Dr Patrick. He ordered to DC magnesium oxide.
[2018-08-28] MEDS: GLUCERNA 1.2 1,000 ML BOTTLE GT PRN (18:03)
[2018-08-28 18:31] VITALS: BP 138/79
[2018-08-28 19:55] VITALS: BP 139/78
--- NOTE | 2018-08-28 20:08 | NUR ---
RT NOTE PATIENT RECEIVED TRACH'D IN STABLE CONDITION ON MECHANICAL VENT. PATIENT IS TOLERATING CURRENT ORDERED VENT SETTINGS. PATIENT TRACH IS PATENT AND SECURE. ALARMS ARE SET AND AUDIBLE. MECHANICAL VENT IS PLUGGED INTO RED OUTLET. EMERGENCY EQUIPMENT IS PLACED AT BEDSIDE. Addendum: 08/28/18 at 2138 by SALINAS MAGAÑA RT Amended: Links added.
[2018-08-28] MEDS: SENNOSIDES 8.6 MG TABLET GT SCH (21:02)
[2018-08-29 00:21] VITALS: BP 133/72
[2018-08-29] MEDS: IPRATROPIUM NEB FS 0.5 MG/2.5 ML AMPUL.NEB NEB SCH ×4 (01:32→20:05)
[2018-08-29] MEDS: METOCLOPRAMIDE HCL 10 MG/10 ML UDC GT SCH ×3 (05:10→20:38)
[2018-08-29] MEDS: BLOOD SUGAR DIAGNOSTIC 1 EACH STRIP IN SCH ×4 (05:54→23:32)
[2018-08-29] MEDS: INSULIN REGULAR, HUMAN 100 UNIT/ML 3 ML VIAL SQ PRN ×4 (05:55→23:32)
[2018-08-29 06:09] VITALS: BP 148/63
[2018-08-29 07:19] VITALS: BP 140/71
[2018-08-29] MEDS: CEFEPIME 1 GM in IV D5W 50 ML IV SCH ×2 (08:00→20:40)
[2018-08-29] MEDS: AMLODIPINE BESYLATE 5 MG TABLET GT SCH (09:00)
[2018-08-29] MEDS: HYDROGEN PEROXIDE 480 ML BOTTLE TP SCH ×2 (09:00→20:38)
[2018-08-29] MEDS: ACIDOPHILUS/BULGARICUS 1 EACH TAB.CHEW GT SCH ×2 (09:00→20:37)
[2018-08-29] MEDS: POVIDONE-IODINE OINT 28.4 GM TUBE TP SCH ×2 (09:00→20:38)
[2018-08-29] MEDS: Z GUARD REMEDY 4 OZ OINT TP SCH ×4 (09:00→20:38)
[2018-08-29] MEDS: VITS A AND D/WHITE PET/LANOLIN 5 GM PACKET TP SCH ×2 (09:00→20:38)
[2018-08-29] MEDS: DOCUSATE SODIUM LIQ 100 MG/10 ML UDC GT SCH (09:00)
[2018-08-29] MEDS: INSULIN DETEMIR 100 UNIT/ML CARTRIDGE SQ SCH ×2 (09:00→21:12)
[2018-08-29] MEDS: METOPROLOL TARTRATE 25 MG TABLET GT SCH ×2 (09:00→20:38)
[2018-08-29] MEDS: MULTIVIT W/MINERALS 1 TAB TABLET GT SCH (09:00)
[2018-08-29] MEDS: PROSTAT (PYXIS) 30 ML UDC GT SCH ×2 (09:00→17:00)
[2018-08-29 12:00] VITALS: BP 130/70
[2018-08-29] MEDS: GLUCERNA 1.2 1,000 ML BOTTLE GT PRN (12:17)
--- NOTE | 2018-08-29 16:54 | NUR ---
Seen and examined by DIRECTOR OF KNOWLEDGE MANAGEMENT Carole Dodd. She ordered to d/c Vancomycin and wrote a duration for IV Cefipime total of 5 days course. She DC an order for urine culture that was ordered by Dr. Aguirre this morning. AD Sparks also made aware of the condition of GT stoma. After initiation of ATB, GT stoma does not appear to be getting worst but still site noted with signs of infection; erythema, warmth, and stoma site hard to touch. He said that he will see the patient when he comes to [facility]. Endorsed.
--- NOTE | 2018-08-29 16:55 | NUR ---
RT NOTES TRACH TUBE IN PLACE, PATENT AND SECURED WITH TRACH TIE. VENT PLUGGED ON RED OUTLET. ALARMS SET AND AUDIBLE. BACK UP TRACH AND AMBU BAG BY THE BED SIDE. PATIENT TOLERATE CURRENT SETTINGS WITH NO SIGNS OF ANY DISTRESS. ROUTINE TRACH TUBE CHANGE PERFORMED. NO BLEEDING. TOLERATE WELL. Addendum: 08/29/18 at 1659 by ANDRES MARINO RT Amended: Links added.
[2018-08-29 18:23] VITALS: BP 116/65
[2018-08-29 20:05] VITALS: BP 133/83
[2018-08-29] MEDS: SENNOSIDES 8.6 MG TABLET GT SCH (21:12)
[2018-08-30 00:48] VITALS: BP 133/66
[2018-08-30] MEDS: IPRATROPIUM NEB FS 0.5 MG/2.5 ML AMPUL.NEB NEB SCH ×4 (01:57→19:19)
[2018-08-30] MEDS: METOCLOPRAMIDE HCL 10 MG/10 ML UDC GT SCH ×3 (05:00→20:01)
[2018-08-30] MEDS: MAGNESIUM HYDROXIDE 30 ML UDC GT PRN (05:00)
[2018-08-30] MEDS: GLUCERNA 1.2 1,000 ML BOTTLE GT PRN ×2 (05:00→23:59)
[2018-08-30] MEDS: BLOOD SUGAR DIAGNOSTIC 1 EACH STRIP IN SCH ×4 (05:31→23:33)
[2018-08-30] MEDS: INSULIN REGULAR, HUMAN 100 UNIT/ML 3 ML VIAL SQ PRN ×4 (05:32→23:33)
[2018-08-30 06:09] VITALS: BP 139/78
[2018-08-30 07:35] VITALS: BP 132/68
[2018-08-30] MEDS: CEFEPIME 1 GM in IV D5W 50 ML IV SCH ×2 (08:00→20:00)
[2018-08-30] MEDS: DOCUSATE SODIUM LIQ 100 MG/10 ML UDC GT SCH (09:42)
[2018-08-30] MEDS: ACIDOPHILUS/BULGARICUS 1 EACH TAB.CHEW GT SCH ×2 (09:42→20:01)
[2018-08-30] MEDS: AMLODIPINE BESYLATE 5 MG TABLET GT SCH (09:43)
[2018-08-30] MEDS: MULTIVIT W/MINERALS 1 TAB TABLET GT SCH (09:43)
[2018-08-30] MEDS: METOPROLOL TARTRATE 25 MG TABLET GT SCH ×2 (09:43→20:01)
[2018-08-30] MEDS: PROSTAT (PYXIS) 30 ML UDC GT SCH (09:43)
[2018-08-30] MEDS: Z GUARD REMEDY 4 OZ OINT TP SCH ×4 (09:44→20:01)
[2018-08-30] MEDS: INSULIN DETEMIR 100 UNIT/ML CARTRIDGE SQ SCH ×2 (09:44→21:10)
[2018-08-30] MEDS: HYDROGEN PEROXIDE 480 ML BOTTLE TP SCH ×2 (09:44→20:01)
[2018-08-30] MEDS: POVIDONE-IODINE OINT 28.4 GM TUBE TP SCH ×2 (09:44→20:01)
[2018-08-30] MEDS: VITS A AND D/WHITE PET/LANOLIN 5 GM PACKET TP SCH ×2 (09:45→20:01)
[2018-08-30 12:00] VITALS: BP 131/68
--- NOTE | 2018-08-30 13:05 | NUR ---
Seen by Dr Rae. Pt's GT site still noted with redness and some leaking. Pt on currently on Maxipime. Dr Martinez said if GT site redness and leaking does not improve, he might have to order to hold GT feeding, place pt on TPN, and replace GT with a smaller size to make the stoma smaller and at the same time keeping it open so it can be replaced by a bigger tube once the area is healed. No new order at this time.
[2018-08-30 18:00] VITALS: BP 129/78
[2018-08-30 19:37] VITALS: BP 127/69
[2018-08-30] MEDS: SENNOSIDES 8.6 MG TABLET GT SCH (21:10)
[2018-08-31 00:18] VITALS: BP 130/73
[2018-08-31] MEDS: IPRATROPIUM NEB FS 0.5 MG/2.5 ML AMPUL.NEB NEB SCH ×4 (01:15→19:49)
[2018-08-31] MEDS: METOCLOPRAMIDE HCL 10 MG/10 ML UDC GT SCH ×3 (04:19→21:40)
[2018-08-31] MEDS: BLOOD SUGAR DIAGNOSTIC 1 EACH STRIP IN SCH ×3 (05:13→17:17)
[2018-08-31] MEDS: INSULIN REGULAR, HUMAN 100 UNIT/ML 3 ML VIAL SQ PRN ×3 (05:14→17:19)
[2018-08-31 06:01] VITALS: BP 127/56
[2018-08-31 07:47] VITALS: BP 148/68
--- NOTE | 2018-08-31 07:51 | NUR ---
RT PATIENT REC'D TRACHED ON [facility] VENT WITH ORDERED SETTING BIRDIE WELL. VENT ALARMS CHECKED + AUDIBLE. TRACH SECURE AND IN PROPER POSITION. CUFF CHECKED BLADDER CHANGER. PATIENT SUCTIONED WITH MOD AMT PALE SEMITHICK SECRETIONS. AMBU BAG AT HOB Addendum: 08/31/18 at 1553 by HAIM CISSE RT Amended: Links added.
[2018-08-31] MEDS: CEFEPIME 1 GM in IV D5W 50 ML IV SCH ×2 (08:00→20:00)
[2018-08-31] MEDS: DOCUSATE SODIUM LIQ 100 MG/10 ML UDC GT SCH (09:16)
[2018-08-31] MEDS: ACIDOPHILUS/BULGARICUS 1 EACH TAB.CHEW GT SCH ×2 (09:16→21:40)
[2018-08-31] MEDS: METOPROLOL TARTRATE 25 MG TABLET GT SCH ×2 (09:17→21:40)
[2018-08-31] MEDS: MULTIVIT W/MINERALS 1 TAB TABLET GT SCH (09:18)
[2018-08-31] MEDS: AMLODIPINE BESYLATE 5 MG TABLET GT SCH (09:18)
[2018-08-31] MEDS: INSULIN DETEMIR 100 UNIT/ML CARTRIDGE SQ SCH ×2 (09:20→21:41)
[2018-08-31] MEDS: POVIDONE-IODINE OINT 28.4 GM TUBE TP SCH ×2 (09:20→21:41)
[2018-08-31] MEDS: HYDROGEN PEROXIDE 480 ML BOTTLE TP SCH ×2 (09:21→21:41)
[2018-08-31] MEDS: Z GUARD REMEDY 4 OZ OINT TP SCH ×4 (09:21→21:41)
[2018-08-31] MEDS: VITS A AND D/WHITE PET/LANOLIN 5 GM PACKET TP SCH ×2 (09:21→21:41)
[2018-08-31 12:00] VITALS: BP 135/75
--- NOTE | 2018-08-31 12:30 | NUR ---
AVERY Barron came and saw patient, no new orders at this time, continue with current IV ATB for URI, NO ADVERSE REACTIONS NOTED. Pt. not in distress. Closely monitored.
[2018-08-31 18:00] VITALS: BP 127/77
[2018-08-31 19:58] VITALS: BP 130/76
[2018-08-31] MEDS: SENNOSIDES 8.6 MG TABLET GT SCH (21:41)
[2018-09-01] VITALS: BP 133/77
[2018-09-01] MEDS: BLOOD SUGAR DIAGNOSTIC 1 EACH STRIP IN SCH ×5 (00:21→23:09)
[2018-09-01] MEDS: INSULIN REGULAR, HUMAN 100 UNIT/ML 3 ML VIAL SQ PRN ×5 (00:23→23:10)
[2018-09-01] MEDS: GLUCERNA 1.2 1,000 ML BOTTLE GT PRN (00:24)
[2018-09-01] MEDS: IPRATROPIUM NEB FS 0.5 MG/2.5 ML AMPUL.NEB NEB SCH ×4 (01:23→19:21)
--- NOTE | 2018-09-01 03:57 | NUR ---
pt rec'd trached on [facility] vent on ac mode. no resp distress or sob noted. trach patent and secured. alarms are set and audible. vent plugged into red outlet. ambu bag bedside. will cotinue to monitor Addendum: 09/01/18 at 0359 by TALA YAO RT Amended: Links added.
[2018-09-01] MEDS: METOCLOPRAMIDE HCL 10 MG/10 ML UDC GT SCH ×3 (05:50→21:44)
[2018-09-01 06:00] VITALS: BP 141/75
--- NOTE | 2018-09-01 06:00 | NUR ---
RN NOTES Small amount of drainage from gt noted. Continues with redness at gt site.
[2018-09-01 07:39] VITALS: BP 131/73
[2018-09-01] MEDS: CEFEPIME 1 GM in IV D5W 50 ML IV SCH (08:00)
--- NOTE | 2018-09-01 08:18 | NUR ---
Notified Dr Rico that pt's G-tube stoma is big and the balloon appears like it will almost come out, small amount of leaking was also noted. Dr Rico ordered to do KUB.
[2018-09-01] MEDS ORDERED: DIATR MEGLU/DIATRIZOATE SODIUM 30 ML BOTTLE (GASTROGRAPHIN) ONE (08:39)
[2018-09-01] MEDS: HYDROGEN PEROXIDE 480 ML BOTTLE TP SCH ×2 (09:00→21:45)
[2018-09-01] MEDS: POVIDONE-IODINE OINT 28.4 GM TUBE TP SCH ×2 (09:00→21:45)
[2018-09-01] MEDS: Z GUARD REMEDY 4 OZ OINT TP SCH ×4 (09:00→21:45)
[2018-09-01] MEDS: VITS A AND D/WHITE PET/LANOLIN 5 GM PACKET TP SCH ×2 (09:00→21:45)
--- NOTE | 2018-09-01 09:30 | NUR ---
Seen by Dr Rae. Notified him that KUB was done to confirm G-tube placement since the stoma is big and balloon looks like it will come out. Pt's G-tube site red and hard to touch. Dr Rae changed pt's G-tube size to Fr 16 x 10 mL. He ordered to hold GT feeding and start pt on TPN. He also ordered Vancomycin IV pharmacy to dose for GT site cellulitis. He said it is fine to give medications via G-tube. Notified Dr Patrick and he said to start TPN.
[2018-09-01] MEDS: DOCUSATE SODIUM LIQ 100 MG/10 ML UDC GT SCH (09:43)
[2018-09-01] MEDS: ACIDOPHILUS/BULGARICUS 1 EACH TAB.CHEW GT SCH ×2 (09:43→21:43)
[2018-09-01] MEDS: METOPROLOL TARTRATE 25 MG TABLET GT SCH ×2 (09:44→21:43)
[2018-09-01] MEDS: AMLODIPINE BESYLATE 5 MG TABLET GT SCH (09:44)
[2018-09-01] MEDS: MULTIVIT W/MINERALS 1 TAB TABLET GT SCH (09:44)
[2018-09-01] MEDS: ACETAMINOPHEN 650 MG/20 ML UDC- SA PATIENTS-FEVER ONLY GT PRN (09:47)
[2018-09-01] MEDS: INSULIN DETEMIR 100 UNIT/ML CARTRIDGE SQ SCH ×2 (10:06→21:44)
--- NOTE | 2018-09-01 10:45 | NUR ---
Called pt's daughter Jennifer, informed her of GT site cellulitis and new orders. She said she wants to speak with Dr Rae before giving consent to PICC line and TPN. Notified Dr Rae and gave him her phone number. He said he will call her later and pt may be on IV fluids for now. Notified Dr Patrick and informed him of pt's blood sugar levels. He ordered to give D5 1/2 NS IV at 80 mL/hr.
[2018-09-01] MEDS: IV D5/0.45 NACL 1,000 ML IV PRN (11:42)
[2018-09-01 12:00] VITALS: BP 130/66
--- NOTE | 2018-09-01 12:10 | NUR ---
Received order to give Vancomycin 1 gm IV q 48 hours for 5 days per protocol for GT site cellulitis.
[2018-09-01] MEDS: VANCOMYCIN 1 GM in IV D5W 250ml IV SCH (13:00)
--- NOTE | 2018-09-01 13:30 | NUR ---
Seen by AVERY Dodd. She ordered to culture GT site. Addendum: 09/01/18 at 1428 by MARCELLA MITCHELL RN AVERY Dodd said there is no need to continue Cefepime. Pt completes 5 days of Cefepime today. She is aware that pt was placed on Vancomycin by Dr Rae.
--- NOTE | 2018-09-01 17:45 | NUR ---
Called pt's daughter Jennifer. She said she already spoke with Dr Rae and was going to call [facility]. She said Dr Rae explained what needs to be done and she gave consent to PICC line and TPN. Called [facility] pharmacy and spoke with Safia. She said they will start TPN tomorrow, she will order labs. Addendum: 09/01/18 at 1754 by MARCELLA MITCHELL RN Safia aware that pt is on IV fluid D5NS at 80 mL/hr. She said that is fine while pt is not on TPN yet.
[2018-09-01 18:00] VITALS: BP 144/73
[2018-09-01 19:54] VITALS: BP 141/77
--- NOTE | 2018-09-01 20:30 | NUR ---
RN NOTES Picc line nurse inserted picc line to right upper arm, double lumen, patent.
[2018-09-01] MEDS: SENNOSIDES 8.6 MG TABLET GT SCH (21:45)
[2018-09-02] VITALS (7 sets, daily range): BP systolic 126–155; BP diastolic 70–73
[2018-09-02] MEDS: IPRATROPIUM NEB FS 0.5 MG/2.5 ML AMPUL.NEB NEB SCH ×4 (01:52→20:25)
[2018-09-02] MEDS: IV D5/0.45 NACL 1,000 ML IV PRN (02:44)
[2018-09-02] MEDS: METOCLOPRAMIDE HCL 10 MG/10 ML UDC GT SCH ×3 (05:29→21:39)
[2018-09-02] MEDS: BLOOD SUGAR DIAGNOSTIC 1 EACH STRIP IN SCH ×4 (06:26→23:26)
[2018-09-02] MEDS: INSULIN REGULAR, HUMAN 100 UNIT/ML 3 ML VIAL SQ PRN ×2 (06:27→23:27)
[2018-09-02 07:57] LABS: CALCIUM, SERUM 8.7 mg/dL (8.5-10.1); CARBON DIOXIDE 25 mmol/L (21-32); CHLORIDE 103 mmol/L (98-107); CREATININE 1.3 mg/dL (0.6-1.3); GLUCOSE 140 mg/dL (74-106); MAGNESIUM 2.7 mg/dL (1.8-2.4); PHOSPHORUS 3.5 mg/dL (2.5-4.9); POTASSIUM 4.1 mmol/L (3.5-5.1); SODIUM SERUM 138 mmol/L (136-145); UREA NITROGEN, BLOOD 49 mg/dL (7-18)
--- NOTE | 2018-09-02 08:00 | NUR ---
RN AM NOTES Received pt rec'd trached on mech vent on ac mode. no resp distress or sob noted. trach patent and secured. alarms are set and audible. vent plugged into red outlet. ambu bag bedside. Gt feeding held and awaiting for TPN.With JAVIER PICC line with double lumen with IVF of D5 1/2 NS infusing well at 80 ml/hr.HOB elevated.Suctioned secretions PRN.Turned every two hrs.Will continue to monitor
[2018-09-02] MEDS: DOCUSATE SODIUM LIQ 100 MG/10 ML UDC GT SCH (08:03)
[2018-09-02] MEDS: ACIDOPHILUS/BULGARICUS 1 EACH TAB.CHEW GT SCH ×2 (08:03→21:39)
[2018-09-02] MEDS: METOPROLOL TARTRATE 25 MG TABLET GT SCH ×2 (08:04→21:39)
[2018-09-02] MEDS: AMLODIPINE BESYLATE 5 MG TABLET GT SCH (08:04)
[2018-09-02] MEDS: MULTIVIT W/MINERALS 1 TAB TABLET GT SCH (08:04)
[2018-09-02] MEDS: INSULIN DETEMIR 100 UNIT/ML CARTRIDGE SQ SCH ×2 (08:19→21:40)
[2018-09-02] MEDS: VITS A AND D/WHITE PET/LANOLIN 5 GM PACKET TP SCH ×2 (09:00→21:40)
[2018-09-02] MEDS: Z GUARD REMEDY 4 OZ OINT TP SCH ×4 (09:00→21:40)
[2018-09-02] MEDS: HYDROGEN PEROXIDE 480 ML BOTTLE TP SCH ×2 (09:00→21:40)
[2018-09-02] MEDS: POVIDONE-IODINE OINT 28.4 GM TUBE TP SCH ×2 (09:00→21:40)
[2018-09-02] MEDS ORDERED: TPN BAG #1 IV SCH ×6 (12:00)
[2018-09-02] MEDS ORDERED: FEE TPN 1 MIN EA MC ONE (13:27)
[2018-09-02] MEDS ORDERED: IV D5/0.45 NACL 1,000 ML IV PRN (13:30)
[2018-09-02] MEDS ORDERED: TPN/PPN PER PHARMACY XX PRN (13:30)
--- NOTE | 2018-09-02 13:45 | NUR ---
Dr. Aguirre reviewed GT stoma culture showing gram negative rods. He ordered to start patient with Zosyn Q 6 hours for bacterial infection. Spoke with Kathleen from [facility] pharmacy and said that TPN will be delivered soon. IVF D5 1/2 NS decreased to 50 cc.hr. Magnesium, Phos and BMP to be drawn daily while on TPN. Spoke with resident's daughter Jennifer at length explaining why patient on new ATB, condition of patient's GT and TPN to be started as soon as it is delivered. Resident has no s/s of discomfort.
--- NOTE | 2018-09-02 14:35 | NUR ---
Spoke with Elisabeth from [facility] pharmacist to find out whether Zosyn is covered by insurance or not, pharmacist to run in the system, awaiting for call back.
--- NOTE | 2018-09-02 15:31 | NUR ---
ADMINISTERED TPN IV TO JAVIER PICC LINE
[2018-09-02] MEDS: PIPERACILLIN /TAZOBACTAM 3.375 G in IV D5W 50 ML IV SCH (18:36)
--- NOTE | 2018-09-02 19:10 | NUR ---
Seen and examined by Dr. Patrick, NNO given. MD made aware of GI's plan to rest and heal GT and then reinsert a new GT. Currently patient on IV ATB, TPN at 30cc/hr and IVF D51/2 NS at 50cc/hr. Informed Dr. Patrick that [facility] pharmacist were the one who calculated the rate however it will be followed up with pharmacist in AM when to increase TPN rate. Dr. Martinez also came to assess patient's GT stoma, he said that it is looking better but will need to continue with TPN for now.
[2018-09-02] MEDS: SENNOSIDES 8.6 MG TABLET GT SCH (21:40)
--- NOTE | 2018-09-03 00:13 | NUR ---
PT REC'D TRACHED ON [facility] VENT ON AC MODE. NO RESP DISTRESS OR SOB NOTED. SX'D FOR MOD AMT OF PALE YELLOW SECRETIONS. TRACH PATENT AND SECURED. ALARMS ARE SET AND AUDIBLE. VENT PLUGGED INTO RED OUTLET. AMBU BAG BEDSIDE. WILL CONTINUE TO MONITOR. Addendum: 09/03/18 at 0018 by TALA YAO RT Amended: Links added.
[2018-09-03 00:37] VITALS: BP 138/70
[2018-09-03] MEDS: IPRATROPIUM NEB FS 0.5 MG/2.5 ML AMPUL.NEB NEB SCH ×4 (00:50→19:34)
[2018-09-03] MEDS: PIPERACILLIN /TAZOBACTAM 3.375 G in IV D5W 50 ML IV SCH ×5 (05:01→17:48)
[2018-09-03] MEDS: BLOOD SUGAR DIAGNOSTIC 1 EACH STRIP IN SCH ×4 (05:54→23:22)
[2018-09-03] MEDS: METOCLOPRAMIDE HCL 10 MG/10 ML UDC GT SCH ×3 (05:54→21:17)
[2018-09-03] MEDS: INSULIN REGULAR, HUMAN 100 UNIT/ML 3 ML VIAL SQ PRN ×3 (05:56→23:23)
[2018-09-03 06:17] VITALS: BP 130/70
[2018-09-03 07:16] LABS: CALCIUM, SERUM 9.2 mg/dL (8.5-10.1); CARBON DIOXIDE 23 mmol/L (21-32); CHLORIDE 103 mmol/L (98-107); CREATININE 1.3 mg/dL (0.6-1.3); GLUCOSE 198 mg/dL (74-106); MAGNESIUM 2.6 mg/dL (1.8-2.4); PHOSPHORUS 3.4 mg/dL (2.5-4.9); SODIUM SERUM 136 mmol/L (136-145); UREA NITROGEN, BLOOD 38 mg/dL (7-18)
[2018-09-03 08:00] VITALS: BP 140/73
--- NOTE | 2018-09-03 08:55 | NUR ---
RT NOTE PATIENT REC'D TRACHED ON [facility] VENT WITH ORDERED SETTING BIRDIE WELL. VENT ALARMS CHECKED + AUDIBLE. TRACH SECURE AND IN PROPER POSITION. CUFF CHECKED UI UX WEB DEVELOPER. PATIENT SUCTIONED WITH MOD AMT PALE SEMITHICK SECRETIONS. AMBU BAG AT [facility] WILL CONTINUE TO MONITOR. Addendum: 09/03/18 at 0856 by FLORINDA TSE RT Amended: Links added.
[2018-09-03] MEDS: DOCUSATE SODIUM LIQ 100 MG/10 ML UDC GT SCH (09:44)
[2018-09-03] MEDS: ACIDOPHILUS/BULGARICUS 1 EACH TAB.CHEW GT SCH ×2 (09:44→21:16)
[2018-09-03] MEDS: METOPROLOL TARTRATE 25 MG TABLET GT SCH ×2 (09:44→21:17)
[2018-09-03] MEDS: POVIDONE-IODINE OINT 28.4 GM TUBE TP SCH ×2 (09:45→21:21)
[2018-09-03] MEDS: HYDROGEN PEROXIDE 480 ML BOTTLE TP SCH ×2 (09:45→21:21)
[2018-09-03] MEDS: Z GUARD REMEDY 4 OZ OINT TP SCH ×4 (09:45→21:24)
[2018-09-03] MEDS: AMLODIPINE BESYLATE 5 MG TABLET GT SCH (09:45)
[2018-09-03] MEDS: VITS A AND D/WHITE PET/LANOLIN 5 GM PACKET TP SCH ×2 (09:45→21:24)
[2018-09-03] MEDS: MULTIVIT W/MINERALS 1 TAB TABLET GT SCH (09:45)
[2018-09-03] MEDS: INSULIN DETEMIR 100 UNIT/ML CARTRIDGE SQ SCH ×2 (09:57→21:20)
[2018-09-03] MEDS ORDERED: TPN BAG #2 IV PRN ×6 (12:30)
[2018-09-03 13:00] VITALS: BP 142/73
[2018-09-03] MEDS: VANCOMYCIN 1 GM in IV D5W 250ml IV SCH (13:30)
--- NOTE | 2018-09-03 14:20 | NUR ---
Informed Dr. Hunt that pharmacy recommended to DC IVF of 50cc/hr and patient will have IV Lipids. Orders noted and carried out. Spoke with Dr. Ralph Fox and ask to evaluate redness in the sacral area. New order given for Mycolog cream. MD agreed. Resident's daughter informed of all new orders.
[2018-09-03] MEDS: FAT EMULSION 20% 500 ML in PREMIX 1 EA IV SCH (15:37)
--- NOTE | 2018-09-03 16:30 | NUR ---
Spoke with Estr[facility]er IV pharmacist regarding Vancomycin trough level 12, awaiting for recommendations. FRAUD PREVENTION ANALYST Carole Dodd seen resident this morning said that she will review the final GT culture result showing yeast, Strep Species and gram negative rods. Patient currently on Zosyn and Vancomycin IV.
[2018-09-03 18:27] VITALS: BP 128/70
--- NOTE | 2018-09-03 18:31 | NUR ---
Received a TO from [facility] pharmacist to continue Vancomycin 1 gm. q 48 hours 09/05/18, no more levels unless treatment is extended.
--- NOTE | 2018-09-03 19:34 | NUR ---
RT NOTE: RECEIVED TRACH PT ON [facility] VENT ON NOTED SETTINGS PER MD ORDERS. TRACH IS PATENT AND SECURED. PLANT OPERATOR HELPER DONE. Q6 BREATHING TX GIVEN WITH NO ADVERSE REACTION NOTED. SX DONE PRN. VENT PLUGGED INTO RED OUTLET. ALARMS ON AND AUDIBLE. FROY BAG @ BEDSIDE. NO RESP DISTRESS AT THIS TIME. WILL CONT TO MONITOR PT. Addendum: 09/04/18 at 0429 by PREMA SOTO RT Amended: Links added.
[2018-09-03 19:56] VITALS: BP 128/64
[2018-09-03] MEDS: TRIAMCINOLONE ACETONIDE 0.1% CR 15 GM TUBE TP SCH (21:21)
[2018-09-03] MEDS: NYSTATIN CREAM 15 GM TUBE TP SCH (21:22)
[2018-09-03] MEDS: SENNOSIDES 8.6 MG TABLET GT SCH (21:25)
[2018-09-04 00:35] VITALS: BP 128/64
[2018-09-04] MEDS: IPRATROPIUM NEB FS 0.5 MG/2.5 ML AMPUL.NEB NEB SCH ×4 (01:13→19:30)
[2018-09-04] MEDS: BLOOD SUGAR DIAGNOSTIC 1 EACH STRIP IN SCH ×4 (05:48→23:16)
[2018-09-04] MEDS: METOCLOPRAMIDE HCL 10 MG/10 ML UDC GT SCH ×3 (05:48→20:17)
[2018-09-04] MEDS: INSULIN REGULAR, HUMAN 100 UNIT/ML 3 ML VIAL SQ PRN ×4 (05:50→23:16)
[2018-09-04 06:11] VITALS: BP 132/60
[2018-09-04] MEDS: PIPERACILLIN /TAZOBACTAM 3.375 G in IV D5W 50 ML IV SCH ×5 (06:18→18:56)
--- NOTE | 2018-09-04 07:30 | NUR ---
Female trach pt received unlabored on a mechanical vent. Pt trach is secure. Vent is plugged into a red outlet, alarms are set and audible, and BMV is at bedside. Addendum: 09/04/18 at 0731 by SHIMA GONZALES RT Amended: Links added.
[2018-09-04 07:36] LABS: CALCIUM, SERUM 8.9 mg/dL (8.5-10.1); CARBON DIOXIDE 23 mmol/L (21-32); CHLORIDE 105 mmol/L (98-107); CREATININE 1.2 mg/dL (0.6-1.3); GLUCOSE 192 mg/dL (74-106); MAGNESIUM 2.2 mg/dL (1.8-2.4); POTASSIUM 3.6 mmol/L (3.5-5.1); SODIUM SERUM 139 mmol/L (136-145); UREA NITROGEN, BLOOD 33 mg/dL (7-18)
[2018-09-04 07:45] VITALS: BP 135/64
[2018-09-04] MEDS: DOCUSATE SODIUM LIQ 100 MG/10 ML UDC GT SCH (09:16)
[2018-09-04] MEDS: METOPROLOL TARTRATE 25 MG TABLET GT SCH ×2 (09:16→20:17)
[2018-09-04] MEDS: ACIDOPHILUS/BULGARICUS 1 EACH TAB.CHEW GT SCH ×2 (09:16→20:17)
[2018-09-04] MEDS: AMLODIPINE BESYLATE 5 MG TABLET GT SCH (09:16)
[2018-09-04] MEDS: MULTIVIT W/MINERALS 1 TAB TABLET GT SCH (09:16)
[2018-09-04] MEDS: INSULIN DETEMIR 100 UNIT/ML CARTRIDGE SQ SCH ×2 (09:19→21:33)
[2018-09-04] MEDS: NYSTATIN CREAM 15 GM TUBE TP SCH ×2 (09:21→20:18)
[2018-09-04] MEDS: HYDROGEN PEROXIDE 480 ML BOTTLE TP SCH ×2 (09:21→20:18)
[2018-09-04] MEDS: POVIDONE-IODINE OINT 28.4 GM TUBE TP SCH ×2 (09:21→20:18)
[2018-09-04] MEDS: NEOMY SULF/BACITRAC ZN/POLY 15 GM TUBE TP SCH ×4 (09:21→20:18)
[2018-09-04] MEDS: Z GUARD REMEDY 4 OZ OINT TP SCH ×4 (09:21→20:18)
[2018-09-04] MEDS: TRIAMCINOLONE ACETONIDE 0.1% CR 15 GM TUBE TP SCH ×2 (09:21→20:18)
[2018-09-04] MEDS: VITS A AND D/WHITE PET/LANOLIN 5 GM PACKET TP SCH ×2 (09:21→20:19)
[2018-09-04] MEDS ORDERED: GLUCERNA 1.2 1,000 ML BOTTLE GT PRN (10:14)
[2018-09-04] MEDS ORDERED: TPN BAG #3 IV PRN ×6 (11:00)
[2018-09-04 12:00] VITALS: BP 137/80
--- NOTE | 2018-09-04 12:30 | NUR ---
Received culture result of GT site, Vaco resistant. Dr. Aguirre informed with new orders. D/C Vancomycin IV, CBC, CMP in AM, contact isolation, carried out. Left message to Infection nurse Tia. Daughter Jennifer Araiza informed. Family, visitors and staff educated about contact isolation, proper use of PPE, proper hand washing and proper disposal of waste. Will continue to monitor.
[2018-09-04 18:37] VITALS: BP 133/65
[2018-09-04 20:28] VITALS: BP 122/66
[2018-09-04] MEDS: SENNOSIDES 8.6 MG TABLET GT SCH (21:33)
--- NOTE | 2018-09-04 22:10 | NUR ---
PT RCVD TRACH'D ON MECHANICAL VENT WITH CHARTED SETTINGS. TX BIRDIE WELL. SX DONE. PT TRACH IS PATENT AND SECURE. VENT IS PLUGGED INTO RED OUTLET. ALARMS ARE ON AND AUDIBLE. AMBU BAG AT BEDSIDE. WILL CONTINUE TO MONITOR. Addendum: 09/04/18 at 2215 by FELICITAS CHRISTIE RT Amended: Links added.
[2018-09-05 00:05] VITALS: BP 127/58
[2018-09-05] MEDS: IPRATROPIUM NEB FS 0.5 MG/2.5 ML AMPUL.NEB NEB SCH ×4 (00:51→19:20)
[2018-09-05] MEDS: METOCLOPRAMIDE HCL 10 MG/10 ML UDC GT SCH ×3 (05:26→20:37)
[2018-09-05] MEDS: BLOOD SUGAR DIAGNOSTIC 1 EACH STRIP IN SCH ×4 (05:26→23:54)
[2018-09-05] MEDS: INSULIN REGULAR, HUMAN 100 UNIT/ML 3 ML VIAL SQ PRN ×4 (05:27→23:56)
[2018-09-05] MEDS: PIPERACILLIN /TAZOBACTAM 3.375 G in IV D5W 50 ML IV SCH ×5 (06:00→18:34)
[2018-09-05 06:13] VITALS: BP 133/67
[2018-09-05 07:16] LABS: BASOPHILS % (AUTO) 0.5 % (0.0-2.0); EOSINOPHILS % (AUTO) 2.6 % (0.0-6.0); HEMATOCRIT 34 % (33-45); HEMOGLOBIN 10.9 g/dL (11.5-14.8); LYMPHOCYTES # (AUTO) 1.4 /CMM (0.8-4.8); LYMPHOCYTES % (AUTO) 14.5 % (20.0-44.0); MEAN CORPUSCULAR HGB CONC 32 g/dl (31.0-36.0); MEAN CORPUSCULAR VOLUME 78 fL (82-100); MONOCYTES % (AUTO) 10.4 % (2.0-12.0); NEUTROPHILS # (AUTO) 6.8 /CMM (1.8-8.9); PLATELET COUNT (AUTO) 272 /CMM (150-450); RED BLOOD CELL COUNT(AUTO) 4.43 MIL/uL (4.0-5.2); WHITE BLOOD COUNT (AUTO) 9.4 K/uL (4.3-11.0)
[2018-09-05 07:36] LABS: TRIGLYCERIDES 166 mg/dL (30-150)
[2018-09-05 07:39] VITALS: BP 147/71
[2018-09-05 07:39] LABS: ALANINE AMINOTRANSFERASE 50 U/L (12-78); ALBUMIN 2.5 g/dL (3.4-5.0); ALKALINE PHOSPHATASE 260 U/L (46-116); ASPARTATE AMINOTRANSFERASE 40 U/L (15-37); BILIRUBIN,TOTAL 0.5 mg/dL (0.2-1.0); CALCIUM, SERUM 9.2 mg/dL (8.5-10.1); CARBON DIOXIDE 21 mmol/L (21-32); CHLORIDE 105 mmol/L (98-107); CREATININE 1.3 mg/dL (0.6-1.3); GLUCOSE 160 mg/dL (74-106); PHOSPHORUS 2.8 mg/dL (2.5-4.9); POTASSIUM 3.4 mmol/L (3.5-5.1); SODIUM SERUM 139 mmol/L (136-145); TOTAL PROTEIN, SERUM 8.4 g/dL (6.4-8.2); UREA NITROGEN, BLOOD 30 mg/dL (7-18)
--- NOTE | 2018-09-05 07:39 | NUR ---
Pt received unlabored on a mechanical vent. Pt trach is secure. Vent is plugged into a red outlet, alarms are set and audible, and BMV is at bedside. Addendum: 09/05/18 at 0741 by SHIMA GONZALES RT Amended: Links added.
[2018-09-05] MEDS: METOPROLOL TARTRATE 25 MG TABLET GT SCH ×2 (09:00→20:37)
[2018-09-05] MEDS: POVIDONE-IODINE OINT 28.4 GM TUBE TP SCH ×2 (09:00→20:37)
[2018-09-05] MEDS: NYSTATIN CREAM 15 GM TUBE TP SCH ×2 (09:00→20:37)
[2018-09-05] MEDS: MULTIVIT W/MINERALS 1 TAB TABLET GT SCH (09:00)
[2018-09-05] MEDS: VITS A AND D/WHITE PET/LANOLIN 5 GM PACKET TP SCH ×2 (09:00→20:37)
[2018-09-05] MEDS: INSULIN DETEMIR 100 UNIT/ML CARTRIDGE SQ SCH ×2 (09:00→21:29)
[2018-09-05] MEDS: ACIDOPHILUS/BULGARICUS 1 EACH TAB.CHEW GT SCH ×2 (09:00→20:36)
[2018-09-05] MEDS: DOCUSATE SODIUM LIQ 100 MG/10 ML UDC GT SCH (09:00)
[2018-09-05] MEDS: NEOMY SULF/BACITRAC ZN/POLY 15 GM TUBE TP SCH ×4 (09:00→20:37)
[2018-09-05] MEDS: TRIAMCINOLONE ACETONIDE 0.1% CR 15 GM TUBE TP SCH ×2 (09:00→20:37)
[2018-09-05] MEDS: Z GUARD REMEDY 4 OZ OINT TP SCH ×4 (09:00→20:37)
[2018-09-05] MEDS: HYDROGEN PEROXIDE 480 ML BOTTLE TP SCH ×2 (09:00→20:37)
[2018-09-05] MEDS: AMLODIPINE BESYLATE 5 MG TABLET GT SCH (09:00)
[2018-09-05 13:19] VITALS: BP 147/80
--- NOTE | 2018-09-05 13:59 | NUR ---
YNES made an appointment with outside sales representative insurance Dr. Perkins for 09/12/18
--- NOTE | 2018-09-05 15:14 | NUR ---
Paged Dr Aguirre to clarify duration of Zosyn.
[2018-09-05] MEDS: FAT EMULSION 20% 500 ML in PREMIX 1 EA IV SCH (15:41)
[2018-09-05] MEDS ORDERED: TPN BAG #4 IV PRN ×8 (16:00)
[2018-09-05 18:25] VITALS: BP 132/66
--- NOTE | 2018-09-05 19:57 | NUR ---
PT RCVD TRACH'D ON MECHANICAL VENT WITH CHARTED SETTINGS. TX BIRDIE WELL. SX DONE. PT TRACH IS PATENT AND SECURE. VENT IS PLUGGED INTO RED OUTLET. ALARMS ARE ON AND AUDIBLE. AMBU BAG AT BEDSIDE. WILL CONTINUE TO MONITOR. Addendum: 09/05/18 at 1956 by FELICITAS CHRISTIE RT Amended: Links added.
[2018-09-05] MEDS: SENNOSIDES 8.6 MG TABLET GT SCH (21:29)
[2018-09-05 22:57] VITALS: BP 151/73
[2018-09-06] VITALS: BP 134/59
[2018-09-06] MEDS: PIPERACILLIN /TAZOBACTAM 3.375 G in IV D5W 50 ML IV SCH ×3 (00:04→12:29)
[2018-09-06] MEDS: IPRATROPIUM NEB FS 0.5 MG/2.5 ML AMPUL.NEB NEB SCH ×4 (00:34→19:05)
[2018-09-06] MEDS: METOCLOPRAMIDE HCL 10 MG/10 ML UDC GT SCH ×3 (05:00→20:19)
[2018-09-06] MEDS: INSULIN REGULAR, HUMAN 100 UNIT/ML 3 ML VIAL SQ PRN ×4 (05:25→23:42)
[2018-09-06] MEDS: BLOOD SUGAR DIAGNOSTIC 1 EACH STRIP IN SCH ×4 (05:25→23:41)
[2018-09-06 06:04] VITALS: BP 123/58
[2018-09-06 07:31] LABS: CALCIUM, SERUM 8.8 mg/dL (8.5-10.1); CARBON DIOXIDE 21 mmol/L (21-32); CHLORIDE 104 mmol/L (98-107); CREATININE 1.2 mg/dL (0.6-1.3); GLUCOSE 172 mg/dL (74-106); MAGNESIUM 1.8 mg/dL (1.8-2.4); PHOSPHORUS 2.4 mg/dL (2.5-4.9); SODIUM SERUM 138 mmol/L (136-145); UREA NITROGEN, BLOOD 27 mg/dL (7-18)
[2018-09-06 08:00] VITALS: BP 147/77
[2018-09-06] MEDS: HYDROGEN PEROXIDE 480 ML BOTTLE TP SCH ×2 (09:00→20:19)
[2018-09-06] MEDS: NEOMY SULF/BACITRAC ZN/POLY 15 GM TUBE TP SCH ×4 (09:00→20:20)
[2018-09-06] MEDS: NYSTATIN CREAM 15 GM TUBE TP SCH ×2 (09:00→20:20)
[2018-09-06] MEDS: Z GUARD REMEDY 4 OZ OINT TP SCH ×4 (09:00→20:20)
[2018-09-06] MEDS: POVIDONE-IODINE OINT 28.4 GM TUBE TP SCH ×2 (09:00→20:19)
[2018-09-06] MEDS: TRIAMCINOLONE ACETONIDE 0.1% CR 15 GM TUBE TP SCH ×2 (09:00→20:19)
[2018-09-06] MEDS: VITS A AND D/WHITE PET/LANOLIN 5 GM PACKET TP SCH ×2 (09:00→20:20)
[2018-09-06] MEDS: DOCUSATE SODIUM LIQ 100 MG/10 ML UDC GT SCH (09:19)
[2018-09-06] MEDS: ACIDOPHILUS/BULGARICUS 1 EACH TAB.CHEW GT SCH ×2 (09:19→20:19)
[2018-09-06] MEDS: METOPROLOL TARTRATE 25 MG TABLET GT SCH ×2 (09:20→20:19)
[2018-09-06] MEDS: AMLODIPINE BESYLATE 5 MG TABLET GT SCH (09:20)
[2018-09-06] MEDS: MULTIVIT W/MINERALS 1 TAB TABLET GT SCH (09:21)
[2018-09-06] MEDS: INSULIN DETEMIR 100 UNIT/ML CARTRIDGE SQ SCH ×2 (09:43→21:00)
[2018-09-06 12:00] VITALS: BP 143/74
--- NOTE | 2018-09-06 13:30 | NUR ---
Seen by Dr. Aguirre today. Notified him pt had 99.0 temp this AM. GT clean, no redness noted but still noted with hardened area around GT stoma. 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 Per Dr. Aguirre, he might discontinue Zosyn but will review pt's chart. No new order given.
[2018-09-06] MEDS ORDERED: TPN BAG #5 IV PRN ×8 (14:49)
[2018-09-06] MEDS: POTASSIUM CL. PREMIX PERIPHER. 50 ML IV SCH ×4 (16:30→19:35)
--- NOTE | 2018-09-06 17:44 | NUR ---
Order obtained from Dr. Aguirre to [facility]. Called pt's daughter Jennifer to notify her of order but unable to contact her.
[2018-09-06 18:34] VITALS: BP 142/66
[2018-09-06 19:42] VITALS: BP 151/82
[2018-09-06] MEDS: SENNOSIDES 8.6 MG TABLET GT SCH (22:07)
[2018-09-07 00:07] VITALS: BP 133/58
[2018-09-07] MEDS: IPRATROPIUM NEB FS 0.5 MG/2.5 ML AMPUL.NEB NEB SCH ×4 (01:42→19:39)
--- NOTE | 2018-09-07 02:37 | NUR ---
PATIENT RECEIVED ON TRACH TO VENT WITH SETTINGS OF AC 15, 450 VT, 30%, +5. SUCTIONED FOR MINIMAL, THIN, WHITE SECRETIONS. GIVEN IN-LINE TREATMENTS WITH NO ADVERSE REACTIONS. AMBU BAG AT BEDSIDE. VENT ALARM AUDIBLE AND VISIBLE. VENT PLUGGED INTO RED OUTLET. Addendum: 09/07/18 at 0238 by CAMMY MCELROY RT Amended: Links added.
[2018-09-07] MEDS: METOCLOPRAMIDE HCL 10 MG/10 ML UDC GT SCH ×3 (05:11→21:04)
[2018-09-07] MEDS: BLOOD SUGAR DIAGNOSTIC 1 EACH STRIP IN SCH ×3 (05:35→17:53)
[2018-09-07] MEDS: INSULIN REGULAR, HUMAN 100 UNIT/ML 3 ML VIAL SQ PRN ×3 (05:36→17:55)
[2018-09-07 06:19] VITALS: BP 139/55
[2018-09-07 07:39] LABS: CALCIUM, SERUM 9.3 mg/dL (8.5-10.1); CARBON DIOXIDE 19 mmol/L (21-32); CHLORIDE 105 mmol/L (98-107); GLUCOSE 137 mg/dL (74-106); PHOSPHORUS 2.6 mg/dL (2.5-4.9); POTASSIUM 3.5 mmol/L (3.5-5.1); SODIUM SERUM 138 mmol/L (136-145); UREA NITROGEN, BLOOD 25 mg/dL (7-18)
[2018-09-07 08:43] VITALS: BP 163/73
[2018-09-07] MEDS: NEOMY SULF/BACITRAC ZN/POLY 15 GM TUBE TP SCH ×4 (09:00→21:07)
[2018-09-07] MEDS: Z GUARD REMEDY 4 OZ OINT TP SCH ×4 (09:00→21:07)
[2018-09-07] MEDS: VITS A AND D/WHITE PET/LANOLIN 5 GM PACKET TP SCH ×2 (09:00→21:07)
[2018-09-07] MEDS: NYSTATIN CREAM 15 GM TUBE TP SCH ×2 (09:00→21:07)
[2018-09-07] MEDS: INSULIN DETEMIR 100 UNIT/ML CARTRIDGE SQ SCH ×2 (09:00→21:06)
[2018-09-07] MEDS: MULTIVIT W/MINERALS 1 TAB TABLET GT SCH (09:00)
[2018-09-07] MEDS: POVIDONE-IODINE OINT 28.4 GM TUBE TP SCH (09:00)
[2018-09-07] MEDS: METOPROLOL TARTRATE 25 MG TABLET GT SCH ×2 (09:00→21:04)
[2018-09-07] MEDS: DOCUSATE SODIUM LIQ 100 MG/10 ML UDC GT SCH (09:00)
[2018-09-07] MEDS: AMLODIPINE BESYLATE 5 MG TABLET GT SCH (09:00)
[2018-09-07] MEDS: TRIAMCINOLONE ACETONIDE 0.1% CR 15 GM TUBE TP SCH ×2 (09:00→21:07)
[2018-09-07] MEDS: ACIDOPHILUS/BULGARICUS 1 EACH TAB.CHEW GT SCH ×2 (09:00→21:03)
[2018-09-07] MEDS: HYDROGEN PEROXIDE 480 ML BOTTLE TP SCH ×2 (09:00→21:07)
--- NOTE | 2018-09-07 09:00 | NUR ---
Seen and examined by Dr. Patrick, no new order given. Afebrile. Cont. on TPN and lipid. Around GT site still hard to touch, no redness noted. No s/sx of pain. Will continue to monitor.
--- NOTE | 2018-09-07 12:00 | NUR ---
TPN bag # 5 increased rate to 55ml/hr per Kathleen ( Pharmacist).
[2018-09-07] MEDS ORDERED: TPN BAG #6 IV PRN ×8 (12:30)
--- NOTE | 2018-09-07 12:33 | NUR ---
Resident moved to room 273. Daughter Jennifer Araiza informed. 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
[2018-09-07] MEDS ORDERED: TPN BAG #7 IV PRN ×6 (13:00)
[2018-09-07] MEDS: FAT EMULSION 20% 500 ML in PREMIX 1 EA IV SCH (15:21)
[2018-09-07 16:46] VITALS: BP 140/69
[2018-09-07 18:18] VITALS: BP 147/70
[2018-09-07 19:49] VITALS: BP 136/69
[2018-09-07] MEDS: SENNOSIDES 8.6 MG TABLET GT SCH (21:07)
[2018-09-08 00:43] VITALS: BP 130/64
[2018-09-08] MEDS: IPRATROPIUM NEB FS 0.5 MG/2.5 ML AMPUL.NEB NEB SCH ×4 (01:28→19:34)
[2018-09-08] MEDS: INSULIN REGULAR, HUMAN 100 UNIT/ML 3 ML VIAL SQ PRN ×4 (02:28→17:43)
[2018-09-08] MEDS: BLOOD SUGAR DIAGNOSTIC 1 EACH STRIP IN SCH ×4 (05:45→17:43)
[2018-09-08] MEDS: METOCLOPRAMIDE HCL 10 MG/10 ML UDC GT SCH ×3 (05:45→21:04)
[2018-09-08 06:11] VITALS: BP 134/70
--- NOTE | 2018-09-08 07:20 | NUR ---
RT PATIENT REC'D TRACHED ON [facility] VENT WITH ORDERED SETTINGS BIRDIE WELL. VENT ALARMS CHECKED + AUDIBLE. CUFF PRESSURE CHECKED SKEIN SPOOLER. TRACH SECURE + IN PROPER POSITION. PATIENT NON RESPONSIVE TO VERBAL COMMANDS, NO SOB NOTED. B/S DIM COARSE. PATIENT SUCTIONED WITH MOD AMT OF PALE SEMI-THICK SECRETIONS. AMBU BAG AND BACK UP TRACH AT HOB. CONT CURRENT PLAN OF RESP CARE. Addendum: 09/08/18 at 0822 by HAIM CISSE RT Amended: Links added.
[2018-09-08 07:53] VITALS: BP 131/66
[2018-09-08 08:05] LABS: CALCIUM, SERUM 8.6 mg/dL (8.5-10.1); CARBON DIOXIDE 18 mmol/L (21-32); CHLORIDE 105 mmol/L (98-107); CREATININE 0.8 mg/dL (0.6-1.3); GLUCOSE 191 mg/dL (74-106); MAGNESIUM 2.1 mg/dL (1.8-2.4); PHOSPHORUS 2.9 mg/dL (2.5-4.9); POTASSIUM 4.1 mmol/L (3.5-5.1); SODIUM SERUM 136 mmol/L (136-145); UREA NITROGEN, BLOOD 30 mg/dL (7-18)
[2018-09-08] MEDS: Z GUARD REMEDY 4 OZ OINT TP SCH ×4 (09:00→21:06)
[2018-09-08] MEDS: AMLODIPINE BESYLATE 5 MG TABLET GT SCH (09:00)
[2018-09-08] MEDS: INSULIN DETEMIR 100 UNIT/ML CARTRIDGE SQ SCH ×2 (09:00→21:05)
[2018-09-08] MEDS: NYSTATIN CREAM 15 GM TUBE TP SCH ×2 (09:00→21:05)
[2018-09-08] MEDS: DOCUSATE SODIUM LIQ 100 MG/10 ML UDC GT SCH (09:00)
[2018-09-08] MEDS: ACIDOPHILUS/BULGARICUS 1 EACH TAB.CHEW GT SCH ×2 (09:00→21:03)
[2018-09-08] MEDS: TRIAMCINOLONE ACETONIDE 0.1% CR 15 GM TUBE TP SCH ×2 (09:00→21:05)
[2018-09-08] MEDS: MULTIVIT W/MINERALS 1 TAB TABLET GT SCH (09:00)
[2018-09-08] MEDS: METOPROLOL TARTRATE 25 MG TABLET GT SCH ×2 (09:00→21:04)
[2018-09-08] MEDS: HYDROGEN PEROXIDE 480 ML BOTTLE TP SCH ×2 (09:00→21:05)
[2018-09-08] MEDS: NEOMY SULF/BACITRAC ZN/POLY 15 GM TUBE TP SCH ×4 (09:00→21:05)
[2018-09-08] MEDS: VITS A AND D/WHITE PET/LANOLIN 5 GM PACKET TP SCH ×2 (09:00→21:06)
[2018-09-08 12:00] VITALS: BP 132/76
[2018-09-08] MEDS ORDERED: TPN BAG #8 IV PRN ×8 (12:30)
[2018-09-08 18:00] VITALS: BP 158/73
[2018-09-08 19:54] VITALS: BP 143/71
[2018-09-08] MEDS: SENNOSIDES 8.6 MG TABLET GT SCH (21:06)
[2018-09-09 00:17] VITALS: BP 142/76
[2018-09-09] MEDS: BLOOD SUGAR DIAGNOSTIC 1 EACH STRIP IN SCH ×5 (00:18→23:45)
[2018-09-09] MEDS: IPRATROPIUM NEB FS 0.5 MG/2.5 ML AMPUL.NEB NEB SCH ×4 (01:42→19:21)
[2018-09-09] MEDS: METOCLOPRAMIDE HCL 10 MG/10 ML UDC GT SCH ×3 (05:32→21:02)
[2018-09-09] MEDS: INSULIN REGULAR, HUMAN 100 UNIT/ML 3 ML VIAL SQ PRN ×4 (05:49→23:46)
[2018-09-09 06:05] VITALS: BP 132/70
[2018-09-09 07:09] LABS: CALCIUM, SERUM 8.5 mg/dL (8.5-10.1); CARBON DIOXIDE 22 mmol/L (21-32); CHLORIDE 106 mmol/L (98-107); CREATININE 0.9 mg/dL (0.6-1.3); GLUCOSE 155 mg/dL (74-106); PHOSPHORUS 3.5 mg/dL (2.5-4.9); POTASSIUM 3.3 mmol/L (3.5-5.1); SODIUM SERUM 141 mmol/L (136-145); UREA NITROGEN, BLOOD 30 mg/dL (7-18)
[2018-09-09 08:25] VITALS: BP 141/75
[2018-09-09] MEDS: HYDROGEN PEROXIDE 480 ML BOTTLE TP SCH ×2 (09:00→21:06)
[2018-09-09] MEDS: TRIAMCINOLONE ACETONIDE 0.1% CR 15 GM TUBE TP SCH ×2 (09:00→21:06)
[2018-09-09] MEDS: NEOMY SULF/BACITRAC ZN/POLY 15 GM TUBE TP SCH ×4 (09:00→21:07)
[2018-09-09] MEDS: NYSTATIN CREAM 15 GM TUBE TP SCH ×2 (09:00→21:06)
[2018-09-09] MEDS: Z GUARD REMEDY 4 OZ OINT TP SCH ×4 (09:00→21:07)
[2018-09-09] MEDS: VITS A AND D/WHITE PET/LANOLIN 5 GM PACKET TP SCH ×2 (09:00→21:07)
--- NOTE | 2018-09-09 09:00 | NUR ---
Seen and examined by Dr. Agarwal, no new order given. Continue on TPN and Lipids. GT intact and patent. Around GT site still hard to touch. No redness noted, no leaking noted. Afebrile 98.8F. Will continue with plan of care.
[2018-09-09] MEDS: INSULIN DETEMIR 100 UNIT/ML CARTRIDGE SQ SCH ×2 (09:35→21:06)
[2018-09-09] MEDS: DOCUSATE SODIUM LIQ 100 MG/10 ML UDC GT SCH (09:39)
[2018-09-09] MEDS: ACIDOPHILUS/BULGARICUS 1 EACH TAB.CHEW GT SCH ×2 (09:39→21:01)
[2018-09-09] MEDS: METOPROLOL TARTRATE 25 MG TABLET GT SCH ×2 (09:40→21:02)
[2018-09-09] MEDS: AMLODIPINE BESYLATE 5 MG TABLET GT SCH (09:40)
[2018-09-09] MEDS: MULTIVIT W/MINERALS 1 TAB TABLET GT SCH (09:40)
[2018-09-09 12:00] VITALS: BP 130/72
[2018-09-09] MEDS ORDERED: TPN BAG #8 IV PRN ×9 (12:19)
[2018-09-09] MEDS ORDERED: TPN BAG #9 IV PRN ×7 (13:00)
[2018-09-09] MEDS: FAT EMULSION 20% 500 ML in PREMIX 1 EA IV SCH (15:00)
[2018-09-09 18:00] VITALS: BP 124/71
[2018-09-09 20:05] VITALS: BP 144/75
[2018-09-09] MEDS: SENNOSIDES 8.6 MG TABLET GT SCH (21:07)
[2018-09-10] MEDS: IPRATROPIUM NEB FS 0.5 MG/2.5 ML AMPUL.NEB NEB SCH ×4 (01:11→19:37)
[2018-09-10 04:18] VITALS: BP 133/64
[2018-09-10] MEDS: BLOOD SUGAR DIAGNOSTIC 1 EACH STRIP IN SCH ×3 (05:45→18:14)
[2018-09-10] MEDS: METOCLOPRAMIDE HCL 10 MG/10 ML UDC GT SCH ×3 (05:45→21:40)
[2018-09-10] MEDS: INSULIN REGULAR, HUMAN 100 UNIT/ML 3 ML VIAL SQ PRN ×3 (05:46→18:16)
[2018-09-10 06:07] VITALS: BP 138/72
[2018-09-10 07:58] VITALS: BP 134/68
[2018-09-10 08:01] LABS: CALCIUM, SERUM 8.6 mg/dL (8.5-10.1); CARBON DIOXIDE 21 mmol/L (21-32); CHLORIDE 104 mmol/L (98-107); CREATININE 0.9 mg/dL (0.6-1.3); GLUCOSE 203 mg/dL (74-106); MAGNESIUM 2.1 mg/dL (1.8-2.4); PHOSPHORUS 2.6 mg/dL (2.5-4.9); POTASSIUM 3.5 mmol/L (3.5-5.1); SODIUM SERUM 138 mmol/L (136-145); UREA NITROGEN, BLOOD 34 mg/dL (7-18)
[2018-09-10] MEDS: ACIDOPHILUS/BULGARICUS 1 EACH TAB.CHEW GT SCH ×2 (08:57→21:39)
[2018-09-10] MEDS: DOCUSATE SODIUM LIQ 100 MG/10 ML UDC GT SCH (08:57)
[2018-09-10] MEDS: METOPROLOL TARTRATE 25 MG TABLET GT SCH ×2 (08:58→21:40)
[2018-09-10] MEDS: AMLODIPINE BESYLATE 5 MG TABLET GT SCH (08:59)
[2018-09-10] MEDS: MULTIVIT W/MINERALS 1 TAB TABLET GT SCH (08:59)
[2018-09-10] MEDS ORDERED: TUBERCULIN,PURIF.PROT.DERIV. 5 TU/0.1 ML VIAL ID SCH (09:00)
[2018-09-10] MEDS: HYDROGEN PEROXIDE 480 ML BOTTLE TP SCH ×2 (09:00→21:40)
[2018-09-10] MEDS: NEOMY SULF/BACITRAC ZN/POLY 15 GM TUBE TP SCH ×4 (09:00→21:40)
[2018-09-10] MEDS: Z GUARD REMEDY 4 OZ OINT TP SCH ×4 (09:00→21:41)
[2018-09-10] MEDS: TRIAMCINOLONE ACETONIDE 0.1% CR 15 GM TUBE TP SCH ×2 (09:00→21:40)
[2018-09-10] MEDS: VITS A AND D/WHITE PET/LANOLIN 5 GM PACKET TP SCH ×2 (09:00→21:41)
[2018-09-10] MEDS: NYSTATIN CREAM 15 GM TUBE TP SCH ×2 (09:00→21:40)
[2018-09-10] MEDS: INSULIN DETEMIR 100 UNIT/ML CARTRIDGE SQ SCH ×2 (09:07→21:53)
[2018-09-10 12:00] VITALS: BP 130/75
[2018-09-10] MEDS ORDERED: TPN BAG #11 IV PRN ×7 (12:00)
[2018-09-10] MEDS ORDERED: TPN BAG #10 IV PRN ×9 (12:00)
--- NOTE | 2018-09-10 15:00 | NUR ---
Notified Dr. Carmona and DENTAL ASSISTANT TEACHER Stephanie Miller, ice skater that patient's GT looks better. Patient currently on TPN and lipid, Tissue around the GT non tender and closing in. No leaking, no erythema around the GT stoma site. Asked if GT will be replaced soon, per Stephanie, it will be replaced on Saturday and will give orders later on today. Endorsed.
[2018-09-10] MEDS: ACETAMINOPHEN 650 MG/20 ML UDC- SA PATIENTS-FEVER ONLY GT PRN (16:00)
--- NOTE | 2018-09-10 16:01 | NUR ---
RESIDENT SPIKE TEMPERATURE, LATEST TEMP 101.3 F, ORAL, COOLING MEASURES RENDERED AND TYLENOL 650MG/20ML WAS GIVEN VIA GTUBE.
--- NOTE | 2018-09-10 16:10 | NUR ---
Informed CUSTOMER PROGRAM SPECIALIST Beatrice Krishnamurthy patient has low grade temperature of 99.7 this morning however she spiked temperature of 101.3 this afternoon. She was also made aware that GT looks clean, no redness, no leaking noted. She said that she will review patient's chart. Meanwhile cooling measures provided.
--- NOTE | 2018-09-10 17:00 | NUR ---
RE-ASSESS TEMPERATURE 99.1, ORAL, MEDICATION (TYLENOL) AND COOLING MEASURES WERE EFFECTIVE.
[2018-09-10] MEDS ORDERED: DOSING PER PHARMACY-AMIKACI IV XX PRN (17:30)
[2018-09-10 18:00] VITALS: BP 125/56
--- NOTE | 2018-09-10 18:14 | NUR ---
PPD 0.1 ML INTRADERMAL WAS ADMINISTERED ON LEFT FOREARM, TOLERATED WELL, NO BLEEDING AT THE SITE, MANUFACTURE [employer] [id number], EXP 09/10/20, LOT NUMBER [id number] EXP 09/11/18. TO BE READ 48-72 HOURS WILL ENDORSE TO NEXT SHIFT.
--- NOTE | 2018-09-10 19:00 | NUR ---
Noted an order entered by GAME ENGINEER Ruby Krishnamurthy for IV ATB, Zyvox, Gentamicin and Amikacin per pharmacy to dose, labs urine culture, sputum culture, chest Xray and blood culture for fever. GAME ENGINEER Stephanie Miller, skirt clipper assessed GT site, she ordered abdominal ultrasound to r/o abscess. Explained with daughter Jennifer at length about the change in condition and interventions ordered by MD. Order faxed to [facility] pharmacy, spoke with Ariel said she will review tthe order and will call for dosing and if covered by insurance. Endorsed.
--- NOTE | 2018-09-10 19:37 | NUR ---
RT NOTE PATIENT RECEIVED TRACH'D ON MECHANICAL VENT. PATIENT IS TOLERATING CURRENT ORDERED VENT SETTINGS. NO RESPIRATORY DISTRESS NOTED. TRACH IS PATENT AND SECURE. ALARMS ARE SET AND AUDIBLE. MECHANICAL VENT IS PLUGGED INTO RED OUTLET. EMERGENCY EQUIPMENT IS AT PATIENT BEDSIDE. WILL CONTINUE TO MONITOR. Addendum: 09/10/18 at 2038 by SALINAS MAGAÑA RT Amended: Links added.
[2018-09-10 19:56] VITALS: BP 131/62
[2018-09-10] MEDS ORDERED: FEE PK DOSING 1 MIN EA MC ONE (20:50)
[2018-09-10] MEDS: GENTAMICIN 80 MG in IV D5W 50 ML IV SCH (21:00)
[2018-09-10] MEDS: LINEZOLID RTU BAG 600 MG in PREMIX 1 EA IV SCH (21:00)
[2018-09-10] MEDS: SENNOSIDES 8.6 MG TABLET GT SCH (21:41)
[2018-09-10 22:23] LABS: APPEARANCE,URINE CLOUDY (CLEAR); BILIRUBIN,URINE NEGATIVE (NEGATIVE); BLOOD, URINE 1+ Ery/uL (NEGATIVE); COLOR,URINE YELLOW (YELLOW); KETONES,URINE NEGATIVE (NEGATIVE); LEUKOCYTE ESTERASE ,URINE 2+ (NEGATIVE); NITRITE, URINE NEGATIVE (NEGATIVE); PH,URINE 5.5 (5.0-8.0); PROTEIN,URINE 2+ mg/dl (NEGATIVE); UGLUCOSE NEGATIVE (NEGATIVE); UROBILINOGEN,URINE 0.2 EU/dL (0.2)
[2018-09-10 22:42] LABS: BACTERIA,URINE Moderate /HPF (None Seen); SQUAMOUS EPITHELIAL CELL,UR Moderate /HPF (None Seen); WBC,URINE 51-80 /HPF (0-3); YEAST,URINE Many /HPF (None Seen)
[2018-09-10] MEDS: NS 0.9% IV SCH (23:26)
[2018-09-10] MEDS: AMIKACIN IV SCH (23:26)
--- NOTE | 2018-09-10 23:30 | NUR ---
PHARMACIST DOSE AMIKACIN 450MG Q 24 HRS,COVERED BY INSURANCE,GENTAMICIN 80MG Q 24HRS [facility] WILL PROVIDE NOT COVERED BY INSURANCE.ZYVOX 600MG IV Q 12 HRS.MEDS GIVEN NO ADVERSE REACTION NOTED.
[2018-09-11] MEDS: BLOOD SUGAR DIAGNOSTIC 1 EACH STRIP IN SCH ×5 (00:15→23:17)
[2018-09-11] MEDS: INSULIN REGULAR, HUMAN 100 UNIT/ML 3 ML VIAL SQ PRN ×5 (00:16→23:18)
[2018-09-11 00:20] VITALS: BP 148/74
[2018-09-11] MEDS: IPRATROPIUM NEB FS 0.5 MG/2.5 ML AMPUL.NEB NEB SCH ×4 (01:24→19:37)
[2018-09-11] MEDS: METOCLOPRAMIDE HCL 10 MG/10 ML UDC GT SCH ×3 (05:31→20:05)
[2018-09-11] MEDS: CLONIDINE HCL 0.1 MG TABLET GT PRN (06:03)
[2018-09-11 06:04] VITALS: BP 158/63
[2018-09-11 07:32] LABS: BASOPHILS % (AUTO) 0.3 % (0.0-2.0); EOSINOPHILS % (AUTO) 2.1 % (0.0-6.0); HEMATOCRIT 31 % (33-45); HEMOGLOBIN 10.1 g/dL (11.5-14.8); LYMPHOCYTES # (AUTO) 1.2 /CMM (0.8-4.8); LYMPHOCYTES % (AUTO) 9.3 % (20.0-44.0); MEAN CORPUSCULAR HGB CONC 32 g/dl (31.0-36.0); MEAN CORPUSCULAR VOLUME 78 fL (82-100); MONOCYTES % (AUTO) 7.7 % (2.0-12.0); NEUTROPHILS # (AUTO) 10.1 /CMM (1.8-8.9); NEUTROPHILS % (AUTO) 80.6 % (43.0-81.0); PLATELET COUNT (AUTO) 276 /CMM (150-450); RED BLOOD CELL COUNT(AUTO) 4.02 MIL/uL (4.0-5.2); WHITE BLOOD COUNT (AUTO) 12.6 K/uL (4.3-11.0)
[2018-09-11 07:54] VITALS: BP 123/66
[2018-09-11 07:54] LABS: ALANINE AMINOTRANSFERASE 31 U/L (12-78); ALBUMIN 2.4 g/dL (3.4-5.0); ALKALINE PHOSPHATASE 233 U/L (46-116); ASPARTATE AMINOTRANSFERASE 22 U/L (15-37); BILIRUBIN,TOTAL 0.4 mg/dL (0.2-1.0); CALCIUM, SERUM 8.5 mg/dL (8.5-10.1); CARBON DIOXIDE 24 mmol/L (21-32); CHLORIDE 104 mmol/L (98-107); GLUCOSE 112 mg/dL (74-106); MAGNESIUM 2.1 mg/dL (1.8-2.4); PHOSPHORUS 2.9 mg/dL (2.5-4.9); POTASSIUM 3.6 mmol/L (3.5-5.1); SODIUM SERUM 138 mmol/L (136-145); TOTAL PROTEIN, SERUM 7.5 g/dL (6.4-8.2); UREA NITROGEN, BLOOD 38 mg/dL (7-18)
[2018-09-11] MEDS: LINEZOLID RTU BAG 600 MG in PREMIX 1 EA IV SCH ×2 (09:00→20:58)
[2018-09-11] MEDS: AMIKACIN IV SCH (09:00)
[2018-09-11] MEDS: NS 0.9% IV SCH (09:00)
[2018-09-11] MEDS: MULTIVIT W/MINERALS 1 TAB TABLET GT SCH (09:30)
[2018-09-11] MEDS: DOCUSATE SODIUM LIQ 100 MG/10 ML UDC GT SCH (09:30)
[2018-09-11] MEDS: ACIDOPHILUS/BULGARICUS 1 EACH TAB.CHEW GT SCH ×2 (09:30→20:05)
[2018-09-11] MEDS: AMLODIPINE BESYLATE 5 MG TABLET GT SCH (09:31)
[2018-09-11] MEDS: METOPROLOL TARTRATE 25 MG TABLET GT SCH ×2 (09:31→20:05)
[2018-09-11] MEDS: INSULIN DETEMIR 100 UNIT/ML CARTRIDGE SQ SCH ×2 (09:44→20:24)
[2018-09-11] MEDS: TRIAMCINOLONE ACETONIDE 0.1% CR 15 GM TUBE TP SCH ×2 (09:44→20:05)
[2018-09-11] MEDS: NEOMY SULF/BACITRAC ZN/POLY 15 GM TUBE TP SCH ×4 (09:45→20:06)
[2018-09-11] MEDS: VITS A AND D/WHITE PET/LANOLIN 5 GM PACKET TP SCH ×2 (09:45→20:06)
[2018-09-11] MEDS: Z GUARD REMEDY 4 OZ OINT TP SCH ×4 (09:45→20:06)
[2018-09-11] MEDS: NYSTATIN CREAM 15 GM TUBE TP SCH ×2 (09:45→20:05)
[2018-09-11] MEDS: HYDROGEN PEROXIDE 480 ML BOTTLE TP SCH ×2 (09:45→20:05)
[2018-09-11] MEDS: ZINC OXIDE 30 GM TUBE TP SCH ×2 (09:46→20:06)
[2018-09-11] MEDS: BACI/NEOM/POLY B OINT PKT 1 UDPKT PACKET TP SCH ×2 (09:47→20:06)
--- NOTE | 2018-09-11 11:17 | NUR ---
RT NOTE PATIENT RECEIVED TRACH'D ON MECHANICAL VENT. PATIENT IS TOLERATING CURRENT ORDERED VENT SETTINGS. NO RESPIRATORY DISTRESS NOTED. TRACH IS PATENT AND SECURE. ALARMS ARE SET AND AUDIBLE. MECHANICAL VENT IS PLUGGED INTO RED OUTLET. EMERGENCY EQUIPMENT IS AT PATIENT BEDSIDE. WILL CONTINUE TO MONITOR.
--- NOTE | 2018-09-11 11:45 | NUR ---
Clarified Amikacin and Gentamicin with AVERY Krishnamurthy. Per pharmacy, Amikacin and Gentamicin are usually not given at the same time. AVERY Barron said pt needs to be on Gentamicin and Linezolid, Amikacin should be DC'd. Informed her that Gentamicin is not covered by insurance and asked her if there is an alternative. She said the pt needs to be on Gentamicin.
[2018-09-11 12:00] VITALS: BP 135/72
[2018-09-11] MEDS ORDERED: TPN BAG #12 IV PRN ×9 (14:00)
[2018-09-11] MEDS ORDERED: TPN BAG #13 IV PRN ×7 (14:00)
[2018-09-11] MEDS: FAT EMULSION 20% 500 ML in PREMIX 1 EA IV SCH (15:00)
--- NOTE | 2018-09-11 17:19 | NUR ---
Received order from Dr Aguirre to bathe pt with 2% chlorhexidine daily for 7 days due to CRE GT site.
[2018-09-11 18:52] VITALS: BP 132/73
[2018-09-11] MEDS: MAGNESIUM HYDROXIDE 30 ML UDC GT PRN (20:06)
[2018-09-11] MEDS: GENTAMICIN 80 MG in IV D5W 50 ML IV SCH (20:58)
[2018-09-11] MEDS: SENNOSIDES 8.6 MG TABLET GT SCH (21:10)
[2018-09-12 00:14] VITALS: BP 132/68
[2018-09-12] MEDS: IPRATROPIUM NEB FS 0.5 MG/2.5 ML AMPUL.NEB NEB SCH ×4 (01:36→19:29)
[2018-09-12] MEDS: METOCLOPRAMIDE HCL 10 MG/10 ML UDC GT SCH ×3 (05:37→20:24)
[2018-09-12] MEDS: BLOOD SUGAR DIAGNOSTIC 1 EACH STRIP IN SCH ×4 (05:37→23:33)
[2018-09-12] MEDS: INSULIN REGULAR, HUMAN 100 UNIT/ML 3 ML VIAL SQ PRN ×4 (05:38→23:34)
[2018-09-12 06:36] VITALS: BP 128/69
--- NOTE | 2018-09-12 07:33 | NUR ---
RT NOTE PT HAS NO MEDS IN STOCK, WILL ORDER TODAY.
[2018-09-12 08:03] VITALS: BP 145/76
[2018-09-12] MEDS: NEOMY SULF/BACITRAC ZN/POLY 15 GM TUBE TP SCH ×4 (09:00→20:26)
[2018-09-12] MEDS: Z GUARD REMEDY 4 OZ OINT TP SCH ×4 (09:00→20:26)
[2018-09-12] MEDS: TRIAMCINOLONE ACETONIDE 0.1% CR 15 GM TUBE TP SCH ×2 (09:00→20:24)
[2018-09-12] MEDS: BACI/NEOM/POLY B OINT PKT 1 UDPKT PACKET TP SCH ×2 (09:00→20:26)
[2018-09-12] MEDS: VITS A AND D/WHITE PET/LANOLIN 5 GM PACKET TP SCH ×2 (09:00→20:27)
[2018-09-12] MEDS: NYSTATIN CREAM 15 GM TUBE TP SCH ×2 (09:00→20:25)
[2018-09-12] MEDS: ZINC OXIDE 30 GM TUBE TP SCH ×2 (09:00→20:27)
[2018-09-12] MEDS: CHLORHEXIDINE GLUCONATE 4% 118 ML BOTTLE TP SCH (09:00)
[2018-09-12] MEDS: HYDROGEN PEROXIDE 480 ML BOTTLE TP SCH ×2 (09:00→20:25)
[2018-09-12 09:04] LABS: CALCIUM, SERUM 8.7 mg/dL (8.5-10.1); CARBON DIOXIDE 24 mmol/L (21-32); CHLORIDE 105 mmol/L (98-107); GLUCOSE 161 mg/dL (74-106); MAGNESIUM 2.4 mg/dL (1.8-2.4); PHOSPHORUS 2.8 mg/dL (2.5-4.9); POTASSIUM 3.8 mmol/L (3.5-5.1); SODIUM SERUM 139 mmol/L (136-145); UREA NITROGEN, BLOOD 32 mg/dL (7-18)
[2018-09-12] MEDS: ACIDOPHILUS/BULGARICUS 1 EACH TAB.CHEW GT SCH ×2 (09:10→20:24)
[2018-09-12] MEDS: DOCUSATE SODIUM LIQ 100 MG/10 ML UDC GT SCH (09:10)
[2018-09-12] MEDS: AMLODIPINE BESYLATE 5 MG TABLET GT SCH (09:36)
[2018-09-12] MEDS: MULTIVIT W/MINERALS 1 TAB TABLET GT SCH (09:36)
[2018-09-12] MEDS: METOPROLOL TARTRATE 25 MG TABLET GT SCH ×2 (09:36→20:24)
[2018-09-12] MEDS: INSULIN DETEMIR 100 UNIT/ML CARTRIDGE SQ SCH ×2 (09:37→21:12)
[2018-09-12] MEDS: LINEZOLID RTU BAG 600 MG in PREMIX 1 EA IV SCH ×2 (09:48→21:13)
--- NOTE | 2018-09-12 10:53 | NUR ---
Per pharmacist Dr. Timothy Wang infectious disease discontinued Gentamicin IV and changed it to Colistin IV per pharmacy to dose. 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 TPN and lipid on going. Order noted and carried out. Faxed order to [facility] and [facility] pharmacy for dosing.
[2018-09-12 12:00] VITALS: BP 135/72
--- NOTE | 2018-09-12 12:04 | NUR ---
RT NOTE PT'S BREATHING TX WAS ORDERED AT 1201 FROM PHARMACY.
--- NOTE | 2018-09-12 12:30 | NUR ---
Seen and examined by Dr. Patrick, NNO given. Informed MD that patient's GT looks better and GI plans to replace GT next week with Dr. Diaz. Continue to receive nutrition via TPN. 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 Awaiting for [facility] pharmacist to dose Colistin.
--- NOTE | 2018-09-12 15:05 | NUR ---
Received a call from [facility] pharmacist for Colistin dosing (80mg Q 12 hours), unable to start at this time, not available in e-kit. awaiting for delivery.
[2018-09-12] MEDS ORDERED: TPN BAG #13 IV PRN ×7 (15:33)
[2018-09-12] MEDS: NS 0.9% IV SCH (18:00)
[2018-09-12] MEDS: COLISTIMETHATE SODIUM IV SCH (18:00)
[2018-09-12 18:50] VITALS: BP 128/60
--- NOTE | 2018-09-12 19:00 | NUR ---
Seen and examined by AVERY Hoover, ID for Dr. Aguirre, she reviewed lab results including final urine culture result showing Mohini Species not Albicans and final sputum culture showing slight growth of gram negative rods. No new order given at this time.
[2018-09-12 19:57] VITALS: BP 148/77
--- NOTE | 2018-09-12 20:55 | NUR ---
RT PT RECEIVED TRACHED ON [facility] VENT ON CHARTED SETTINGS. NO DISTRESS NOTED. PARTS COUNTER REPRESENTATIVE FOR CUFF DONE. TX GIVEN. PT SUCTIONED, MODERATE AMOUNT OF THICK WHITE YELLOW SECRETIONS NOTED. ALARMS SET AND AUDIBLE. VENT CONNECTED TO RED OUTLET. WILL CONT TO MONITOR. Addendum: 09/12/18 at 2056 by AMANDO RESENDEZ RT Amended: Links added.
[2018-09-12] MEDS: POVIDONE-IODINE OINT 28.4 GM TUBE TP SCH (21:12)
[2018-09-12] MEDS: SENNOSIDES 8.6 MG TABLET GT SCH (21:13)
[2018-09-13 00:05] VITALS: BP 154/66
[2018-09-13] MEDS: CLONIDINE HCL 0.1 MG TABLET GT PRN (00:07)
[2018-09-13] MEDS: IPRATROPIUM NEB FS 0.5 MG/2.5 ML AMPUL.NEB NEB SCH ×4 (01:33→19:29)
[2018-09-13] MEDS: INSULIN REGULAR, HUMAN 100 UNIT/ML 3 ML VIAL SQ PRN ×4 (05:25→23:12)
[2018-09-13] MEDS: BLOOD SUGAR DIAGNOSTIC 1 EACH STRIP IN SCH ×4 (05:25→23:11)
[2018-09-13] MEDS: METOCLOPRAMIDE HCL 10 MG/10 ML UDC GT SCH ×3 (05:25→20:43)
[2018-09-13 06:16] VITALS: BP 140/73
[2018-09-13] MEDS: COLISTIMETHATE SODIUM IV SCH ×2 (06:19→17:47)
[2018-09-13] MEDS: NS 0.9% IV SCH ×2 (06:19→17:47)
[2018-09-13 07:51] VITALS: BP 138/74
[2018-09-13 08:34] LABS: CALCIUM, SERUM 8.8 mg/dL (8.5-10.1); CARBON DIOXIDE 23 mmol/L (21-32); CHLORIDE 104 mmol/L (98-107); GLUCOSE 90 mg/dL (74-106); POTASSIUM 4.3 mmol/L (3.5-5.1); SODIUM SERUM 137 mmol/L (136-145); UREA NITROGEN, BLOOD 33 mg/dL (7-18)
[2018-09-13] MEDS: POVIDONE-IODINE OINT 28.4 GM TUBE TP SCH ×2 (09:00→20:43)
[2018-09-13] MEDS: CHLORHEXIDINE GLUCONATE 4% 118 ML BOTTLE TP SCH (09:00)
[2018-09-13] MEDS: BACI/NEOM/POLY B OINT PKT 1 UDPKT PACKET TP SCH ×2 (09:00→20:44)
[2018-09-13] MEDS: Z GUARD REMEDY 4 OZ OINT TP SCH ×4 (09:00→20:44)
[2018-09-13] MEDS: VITS A AND D/WHITE PET/LANOLIN 5 GM PACKET TP SCH ×2 (09:00→20:44)
[2018-09-13] MEDS: HYDROGEN PEROXIDE 480 ML BOTTLE TP SCH ×2 (09:00→20:44)
[2018-09-13] MEDS: TRIAMCINOLONE ACETONIDE 0.1% CR 15 GM TUBE TP SCH ×2 (09:00→20:43)
[2018-09-13] MEDS: LINEZOLID RTU BAG 600 MG in PREMIX 1 EA IV SCH ×2 (09:00→21:40)
[2018-09-13] MEDS: ZINC OXIDE 30 GM TUBE TP SCH ×2 (09:00→20:44)
[2018-09-13] MEDS: NYSTATIN CREAM 15 GM TUBE TP SCH ×2 (09:00→20:44)
[2018-09-13] MEDS: NEOMY SULF/BACITRAC ZN/POLY 15 GM TUBE TP SCH ×4 (09:00→20:44)
[2018-09-13] MEDS: MULTIVIT W/MINERALS 1 TAB TABLET GT SCH (09:09)
[2018-09-13] MEDS: METOPROLOL TARTRATE 25 MG TABLET GT SCH ×2 (09:09→20:43)
[2018-09-13] MEDS: DOCUSATE SODIUM LIQ 100 MG/10 ML UDC GT SCH (09:09)
[2018-09-13] MEDS: ACIDOPHILUS/BULGARICUS 1 EACH TAB.CHEW GT SCH ×2 (09:09→20:43)
[2018-09-13] MEDS: AMLODIPINE BESYLATE 5 MG TABLET GT SCH (09:09)
[2018-09-13] MEDS: INSULIN DETEMIR 100 UNIT/ML CARTRIDGE SQ SCH ×2 (09:14→21:05)
[2018-09-13 11:32] LABS: MAGNESIUM 2.4 mg/dL (1.8-2.4); PHOSPHORUS 3.5 mg/dL (2.5-4.9)
[2018-09-13 12:00] VITALS: BP 132/76
[2018-09-13] MEDS ORDERED: TPN BAG #15 IV PRN ×7 (12:30)
[2018-09-13] MEDS: FAT EMULSION 20% 500 ML in PREMIX 1 EA IV SCH (14:13)
--- NOTE | 2018-09-13 16:08 | NUR ---
Seen and examined by BLEACHER KRAFT PULP ZACH Solo reviewed final respiratory culture result showing slight growth of PSEUDOMONAS AERUGINOSA. According to Donny, Colistin will cover Pseudomonas, No additional order given.
[2018-09-13 18:00] VITALS: BP 140/82
[2018-09-13 19:44] VITALS: BP 149/79
[2018-09-13] MEDS: SENNOSIDES 8.6 MG TABLET GT SCH (21:05)
[2018-09-14 00:04] VITALS: BP 142/56
[2018-09-14] MEDS: IPRATROPIUM NEB FS 0.5 MG/2.5 ML AMPUL.NEB NEB SCH ×4 (01:33→20:16)
[2018-09-14] MEDS: METOCLOPRAMIDE HCL 10 MG/10 ML UDC GT SCH ×3 (05:07→21:46)
[2018-09-14] MEDS: BLOOD SUGAR DIAGNOSTIC 1 EACH STRIP IN SCH ×3 (05:07→18:28)
[2018-09-14] MEDS: INSULIN REGULAR, HUMAN 100 UNIT/ML 3 ML VIAL SQ PRN ×2 (05:07→12:05)
[2018-09-14] MEDS: MAGNESIUM HYDROXIDE 30 ML UDC GT PRN (05:07)
[2018-09-14] MEDS: NS 0.9% IV SCH ×2 (06:11→18:00)
[2018-09-14] MEDS: COLISTIMETHATE SODIUM IV SCH ×2 (06:11→18:00)
[2018-09-14 06:12] VITALS: BP 139/88
[2018-09-14 07:29] LABS: BASOPHILS % (AUTO) 0.3 % (0.0-2.0); EOSINOPHILS % (AUTO) 2.3 % (0.0-6.0); HEMATOCRIT 33 % (33-45); LYMPHOCYTES # (AUTO) 1.2 /CMM (0.8-4.8); LYMPHOCYTES % (AUTO) 13.5 % (20.0-44.0); MEAN CORPUSCULAR HGB CONC 33 g/dl (31.0-36.0); MEAN CORPUSCULAR VOLUME 77 fL (82-100); MONOCYTES # (AUTO) 0.7 /CMM (0.1-1.30); MONOCYTES % (AUTO) 7.8 % (2.0-12.0); NEUTROPHILS # (AUTO) 6.7 /CMM (1.8-8.9); NEUTROPHILS % (AUTO) 76.1 % (43.0-81.0); PLATELET COUNT (AUTO) 289 /CMM (150-450); RED BLOOD CELL COUNT(AUTO) 4.36 MIL/uL (4.0-5.2); WHITE BLOOD COUNT (AUTO) 8.8 K/uL (4.3-11.0)
[2018-09-14 07:42] LABS: CALCIUM, SERUM 8.5 mg/dL (8.5-10.1); CARBON DIOXIDE 24 mmol/L (21-32); CHLORIDE 103 mmol/L (98-107); CREATININE 1.1 mg/dL (0.6-1.3); GLUCOSE 111 mg/dL (74-106); MAGNESIUM 2.3 mg/dL (1.8-2.4); PHOSPHORUS 3.2 mg/dL (2.5-4.9); SODIUM SERUM 137 mmol/L (136-145); UREA NITROGEN, BLOOD 30 mg/dL (7-18)
[2018-09-14 08:05] VITALS: BP 121/53
[2018-09-14] MEDS ORDERED: [UNRECOGNIZED DRUG - NUTRITION] IV PRN ×9 (08:30)
[2018-09-14] MEDS: BACI/NEOM/POLY B OINT PKT 1 UDPKT PACKET TP SCH ×2 (09:00→21:50)
[2018-09-14] MEDS: LINEZOLID RTU BAG 600 MG in PREMIX 1 EA IV SCH ×2 (09:00→21:00)
[2018-09-14] MEDS: METOPROLOL TARTRATE 25 MG TABLET GT SCH ×2 (09:09→21:46)
[2018-09-14] MEDS: ACIDOPHILUS/BULGARICUS 1 EACH TAB.CHEW GT SCH ×2 (09:09→21:45)
[2018-09-14] MEDS: AMLODIPINE BESYLATE 5 MG TABLET GT SCH (09:09)
[2018-09-14] MEDS: MULTIVIT W/MINERALS 1 TAB TABLET GT SCH (09:09)
[2018-09-14] MEDS: DOCUSATE SODIUM LIQ 100 MG/10 ML UDC GT SCH (09:09)
[2018-09-14] MEDS: INSULIN DETEMIR 100 UNIT/ML CARTRIDGE SQ SCH ×2 (09:15→21:49)
[2018-09-14] MEDS: TRIAMCINOLONE ACETONIDE 0.1% CR 15 GM TUBE TP SCH ×2 (09:17→21:49)
[2018-09-14] MEDS: TPN BAG #14 IV PRN ×18 (09:17→19:38)
[2018-09-14] MEDS: HYDROGEN PEROXIDE 480 ML BOTTLE TP SCH ×2 (09:18→21:49)
[2018-09-14] MEDS: POVIDONE-IODINE OINT 28.4 GM TUBE TP SCH ×2 (09:18→21:49)
[2018-09-14] MEDS: CHLORHEXIDINE GLUCONATE 4% 118 ML BOTTLE TP SCH (09:18)
[2018-09-14] MEDS: NYSTATIN CREAM 15 GM TUBE TP SCH ×2 (09:18→21:49)
[2018-09-14] MEDS: VITS A AND D/WHITE PET/LANOLIN 5 GM PACKET TP SCH ×2 (09:19→21:50)
[2018-09-14] MEDS: NEOMY SULF/BACITRAC ZN/POLY 15 GM TUBE TP SCH ×4 (09:19→21:49)
[2018-09-14] MEDS: Z GUARD REMEDY 4 OZ OINT TP SCH ×4 (09:19→21:50)
[2018-09-14] MEDS: ZINC OXIDE 30 GM TUBE TP SCH ×2 (09:20→21:50)
--- NOTE | 2018-09-14 11:45 | NUR ---
GI Doctor (Lupillo Simpson) came and saw patients' GT site, noted pus to GT site, ORDERED to collect spec (GT PUS) For C and S. Spec collected and sent to lab. Noted and carried out.
[2018-09-14 15:47] VITALS: BP 128/75
[2018-09-14 18:34] VITALS: BP 136/74
[2018-09-14 19:47] VITALS: BP 156/78
[2018-09-14] MEDS: SENNOSIDES 8.6 MG TABLET GT SCH (21:50)
[2018-09-15] VITALS (7 sets, daily range): BP systolic 132–154; BP diastolic 60–80
[2018-09-15] MEDS: BLOOD SUGAR DIAGNOSTIC 1 EACH STRIP IN SCH ×5 (00:12→23:45)
[2018-09-15] MEDS: INSULIN REGULAR, HUMAN 100 UNIT/ML 3 ML VIAL SQ PRN ×4 (00:12→17:46)
[2018-09-15] MEDS: IPRATROPIUM NEB FS 0.5 MG/2.5 ML AMPUL.NEB NEB SCH ×4 (01:29→19:45)
[2018-09-15] MEDS: METOCLOPRAMIDE HCL 10 MG/10 ML UDC GT SCH ×3 (05:57→20:07)
[2018-09-15] MEDS: NS 0.9% IV SCH ×2 (06:00→18:18)
[2018-09-15] MEDS: COLISTIMETHATE SODIUM IV SCH ×2 (06:00→18:18)
[2018-09-15 07:34] LABS: TRIGLYCERIDES 154 mg/dL (30-150)
[2018-09-15 07:47] LABS: CALCIUM, SERUM 8.9 mg/dL (8.5-10.1); CARBON DIOXIDE 23 mmol/L (21-32); CHLORIDE 100 mmol/L (98-107); CREATININE 1.2 mg/dL (0.6-1.3); GLUCOSE 200 mg/dL (74-106); MAGNESIUM 2.3 mg/dL (1.8-2.4); PHOSPHORUS 3.7 mg/dL (2.5-4.9); POTASSIUM 3.9 mmol/L (3.5-5.1); SODIUM SERUM 135 mmol/L (136-145); UREA NITROGEN, BLOOD 30 mg/dL (7-18)
[2018-09-15] MEDS: HYDROGEN PEROXIDE 480 ML BOTTLE TP SCH ×2 (09:00→20:07)
[2018-09-15] MEDS: BACI/NEOM/POLY B OINT PKT 1 UDPKT PACKET TP SCH ×2 (09:00→20:08)
[2018-09-15] MEDS: Z GUARD REMEDY 4 OZ OINT TP SCH ×4 (09:00→20:08)
[2018-09-15] MEDS: NEOMY SULF/BACITRAC ZN/POLY 15 GM TUBE TP SCH ×4 (09:00→20:08)
[2018-09-15] MEDS: CHLORHEXIDINE GLUCONATE 4% 118 ML BOTTLE TP SCH (09:00)
[2018-09-15] MEDS: LINEZOLID RTU BAG 600 MG in PREMIX 1 EA IV SCH ×3 (09:00→20:22)
[2018-09-15] MEDS: VITS A AND D/WHITE PET/LANOLIN 5 GM PACKET TP SCH ×2 (09:00→20:08)
[2018-09-15] MEDS: TRIAMCINOLONE ACETONIDE 0.1% CR 15 GM TUBE TP SCH ×2 (09:00→20:07)
[2018-09-15] MEDS: POVIDONE-IODINE OINT 28.4 GM TUBE TP SCH ×2 (09:00→20:07)
[2018-09-15] MEDS: NYSTATIN CREAM 15 GM TUBE TP SCH ×2 (09:00→20:07)
[2018-09-15] MEDS: ZINC OXIDE 30 GM TUBE TP SCH ×2 (09:00→20:08)
[2018-09-15] MEDS: DOCUSATE SODIUM LIQ 100 MG/10 ML UDC GT SCH (09:11)
[2018-09-15] MEDS: ACIDOPHILUS/BULGARICUS 1 EACH TAB.CHEW GT SCH ×2 (09:11→20:05)
[2018-09-15] MEDS: AMLODIPINE BESYLATE 5 MG TABLET GT SCH (09:12)
[2018-09-15] MEDS: METOPROLOL TARTRATE 25 MG TABLET GT SCH ×2 (09:12→20:06)
[2018-09-15] MEDS: MULTIVIT W/MINERALS 1 TAB TABLET GT SCH (09:12)
[2018-09-15] MEDS: INSULIN DETEMIR 100 UNIT/ML CARTRIDGE SQ SCH ×2 (09:32→20:25)
--- NOTE | 2018-09-15 14:53 | NUR ---
Informed SEEDLING PULLER Carole Dodd that Pseudomonas aeruginosa in sputum is sensitive to Colistin. Pt already on Colistin and Zyvox.
[2018-09-15] MEDS: FAT EMULSION 20% 500 ML in PREMIX 1 EA IV SCH (15:19)
[2018-09-15] MEDS: SENNOSIDES 8.6 MG TABLET GT SCH (21:01)
[2018-09-16] VITALS: BP 137/67
[2018-09-16] MEDS: INSULIN REGULAR, HUMAN 100 UNIT/ML 3 ML VIAL SQ PRN ×4 (00:02→17:40)
[2018-09-16] MEDS: IPRATROPIUM NEB FS 0.5 MG/2.5 ML AMPUL.NEB NEB SCH ×4 (01:35→19:33)
[2018-09-16] MEDS: METOCLOPRAMIDE HCL 10 MG/10 ML UDC GT SCH ×3 (05:44→21:26)
[2018-09-16] MEDS: BLOOD SUGAR DIAGNOSTIC 1 EACH STRIP IN SCH ×3 (05:44→17:10)
[2018-09-16] MEDS: COLISTIMETHATE SODIUM IV SCH ×2 (05:50→17:11)
[2018-09-16] MEDS: NS 0.9% IV SCH ×2 (05:50→17:11)
[2018-09-16 06:00] VITALS: BP 151/79
[2018-09-16 07:33] LABS: CALCIUM, SERUM 9.2 mg/dL (8.5-10.1); CARBON DIOXIDE 25 mmol/L (21-32); CHLORIDE 99 mmol/L (98-107); CREATININE 1.6 mg/dL (0.6-1.3); GLUCOSE 181 mg/dL (74-106); MAGNESIUM 2.2 mg/dL (1.8-2.4); PHOSPHORUS 3.6 mg/dL (2.5-4.9); POTASSIUM 3.5 mmol/L (3.5-5.1); SODIUM SERUM 133 mmol/L (136-145); UREA NITROGEN, BLOOD 40 mg/dL (7-18)
[2018-09-16 07:37] VITALS: BP 133/77
[2018-09-16] MEDS: ACIDOPHILUS/BULGARICUS 1 EACH TAB.CHEW GT SCH ×2 (09:00→21:25)
[2018-09-16] MEDS: VITS A AND D/WHITE PET/LANOLIN 5 GM PACKET TP SCH ×2 (09:00→21:27)
[2018-09-16] MEDS: DOCUSATE SODIUM LIQ 100 MG/10 ML UDC GT SCH (09:00)
[2018-09-16] MEDS: NEOMY SULF/BACITRAC ZN/POLY 15 GM TUBE TP SCH ×4 (09:00→21:27)
[2018-09-16] MEDS: POVIDONE-IODINE OINT 28.4 GM TUBE TP SCH ×2 (09:00→21:27)
[2018-09-16] MEDS: BACI/NEOM/POLY B OINT PKT 1 UDPKT PACKET TP SCH ×2 (09:00→21:27)
[2018-09-16] MEDS: HYDROGEN PEROXIDE 480 ML BOTTLE TP SCH ×2 (09:00→21:27)
[2018-09-16] MEDS: TRIAMCINOLONE ACETONIDE 0.1% CR 15 GM TUBE TP SCH ×2 (09:00→21:27)
[2018-09-16] MEDS: ZINC OXIDE 30 GM TUBE TP SCH ×2 (09:00→21:27)
[2018-09-16] MEDS: CHLORHEXIDINE GLUCONATE 4% 118 ML BOTTLE TP SCH (09:00)
[2018-09-16] MEDS: NYSTATIN CREAM 15 GM TUBE TP SCH ×2 (09:00→21:27)
[2018-09-16] MEDS: Z GUARD REMEDY 4 OZ OINT TP SCH ×4 (09:00→21:27)
[2018-09-16] MEDS: METOPROLOL TARTRATE 25 MG TABLET GT SCH ×2 (09:01→21:26)
[2018-09-16] MEDS: LINEZOLID RTU BAG 600 MG in PREMIX 1 EA IV SCH (09:01)
[2018-09-16] MEDS: MULTIVIT W/MINERALS 1 TAB TABLET GT SCH (09:01)
[2018-09-16] MEDS: AMLODIPINE BESYLATE 5 MG TABLET GT SCH (09:01)
[2018-09-16] MEDS: INSULIN DETEMIR 100 UNIT/ML CARTRIDGE SQ SCH ×2 (09:12→21:26)
[2018-09-16 12:00] VITALS: BP 134/63
[2018-09-16] MEDS ORDERED: TPN BAG #18 IV PRN ×9 (12:30)
[2018-09-16] MEDS ORDERED: TPN BAG #17 IV PRN ×7 (12:30)
--- NOTE | 2018-09-16 13:00 | NUR ---
Relayed GT site pus C & S result to Dr Aguirre. No new order at this time. Pt currently on Zyvox and Colistimethate.
--- NOTE | 2018-09-16 13:37 | NUR ---
Dr Rae performed EGD with PEG placement. He said to use the new PEG now. He placed an Endovive Fr 20. Informed pharmacist Cheryl. She said they will call back to give orders on tapering the TPN.
[2018-09-16] MEDS: GLUCERNA 1.2 1,000 ML BOTTLE GT PRN (17:07)
--- NOTE | 2018-09-16 18:49 | NUR ---
Spoke with mirror specialist Beth and pharmacist Kathleen regarding feeding and TPN. Received order to start pt's G-tube feeding at 30 mL/hr and increase by 10 mL/hr q hour while tapering TPN. Decreased TPN rate to 30 mL/hr. TPN rate will be decreased by 10 mL/hr while feeding rate is increased by 10 mL/hr q hour.
[2018-09-16 19:33] VITALS: BP 142/70
[2018-09-16 19:54] VITALS: BP 116/60
[2018-09-16] MEDS: SENNOSIDES 8.6 MG TABLET GT SCH (21:27)
[2018-09-16] MEDS: ACETAMINOPHEN 650 MG/20 ML UDC- SA PATIENTS-FEVER ONLY GT PRN (22:40)
[2018-09-17] MEDS: BLOOD SUGAR DIAGNOSTIC 1 EACH STRIP IN SCH ×5 (00:16→23:18)
[2018-09-17] MEDS: INSULIN REGULAR, HUMAN 100 UNIT/ML 3 ML VIAL SQ PRN ×5 (00:17→23:20)
[2018-09-17 00:25] VITALS: BP 111/78
[2018-09-17] MEDS: IPRATROPIUM NEB FS 0.5 MG/2.5 ML AMPUL.NEB NEB SCH ×4 (01:00→19:36)
[2018-09-17] MEDS: METOCLOPRAMIDE HCL 10 MG/10 ML UDC GT SCH ×2 (05:38→12:06)
[2018-09-17 06:18] VITALS: BP 120/75
[2018-09-17 07:22] VITALS: BP 105/57
[2018-09-17 08:44] LABS: CALCIUM, SERUM 9.1 mg/dL (8.5-10.1); CARBON DIOXIDE 21 mmol/L (21-32); CHLORIDE 95 mmol/L (98-107); CREATININE 2.6 mg/dL (0.6-1.3); GLUCOSE 155 mg/dL (74-106); MAGNESIUM 2.5 mg/dL (1.8-2.4); PHOSPHORUS 4.8 mg/dL (2.5-4.9); POTASSIUM 3.6 mmol/L (3.5-5.1); SODIUM SERUM 130 mmol/L (136-145); UREA NITROGEN, BLOOD 53 mg/dL (7-18)
[2018-09-17] MEDS: LINEZOLID RTU BAG 600 MG in PREMIX 1 EA IV SCH ×2 (09:00→21:00)
[2018-09-17] MEDS: DOCUSATE SODIUM LIQ 100 MG/10 ML UDC GT SCH (09:41)
[2018-09-17] MEDS: AMLODIPINE BESYLATE 5 MG TABLET GT SCH (09:41)
[2018-09-17] MEDS: METOPROLOL TARTRATE 25 MG TABLET GT SCH ×2 (09:41→21:00)
[2018-09-17] MEDS: ACIDOPHILUS/BULGARICUS 1 EACH TAB.CHEW GT SCH ×2 (09:41→21:19)
[2018-09-17] MEDS: MULTIVIT W/MINERALS 1 TAB TABLET GT SCH (09:41)
[2018-09-17] MEDS: HYDROGEN PEROXIDE 480 ML BOTTLE TP SCH ×2 (09:44→21:20)
[2018-09-17] MEDS: INSULIN DETEMIR 100 UNIT/ML CARTRIDGE SQ SCH ×2 (09:44→21:20)
[2018-09-17] MEDS: NYSTATIN CREAM 15 GM TUBE TP SCH ×2 (09:44→21:20)
[2018-09-17] MEDS: CHLORHEXIDINE GLUCONATE 4% 118 ML BOTTLE TP SCH (09:44)
[2018-09-17] MEDS: POVIDONE-IODINE OINT 28.4 GM TUBE TP SCH ×2 (09:44→21:20)
[2018-09-17] MEDS: TRIAMCINOLONE ACETONIDE 0.1% CR 15 GM TUBE TP SCH ×2 (09:44→21:20)
[2018-09-17] MEDS: VITS A AND D/WHITE PET/LANOLIN 5 GM PACKET TP SCH ×2 (09:45→21:21)
[2018-09-17] MEDS: NEOMY SULF/BACITRAC ZN/POLY 15 GM TUBE TP SCH ×4 (09:45→21:21)
[2018-09-17] MEDS: BACI/NEOM/POLY B OINT PKT 1 UDPKT PACKET TP SCH ×2 (09:45→21:21)
[2018-09-17] MEDS: ZINC OXIDE 30 GM TUBE TP SCH ×2 (09:45→21:21)
[2018-09-17] MEDS: Z GUARD REMEDY 4 OZ OINT TP SCH ×4 (09:45→21:21)
[2018-09-17] MEDS: ONDANSETRON HCL 4 MG/5 ML SOLUTION GT PRN (10:00)
--- NOTE | 2018-09-17 10:16 | NUR ---
Patient seen by Dr. Agarwal, no new orders at this time. Vital signs stable, patient lying down comfortably. Bed at the lowest setting. BMV at bedside.
--- NOTE | 2018-09-17 11:35 | NUR ---
Seen and examined by GASFITTER Carole Dodd, with new order given. Resident with episode of vomiting and low grade temp of 99. Order faxed to [facility] and [facility] pharmacy.
[2018-09-17 12:00] VITALS: BP 115/54
[2018-09-17] MEDS: GLUCERNA 1.2 1,000 ML BOTTLE GT PRN ×2 (12:26→17:41)
--- NOTE | 2018-09-17 13:15 | NUR ---
Dr. Martinez assessed GT stoma. MD made aware that patient has large amount of gastric residual, >200ml. and vomited x2. New order given to increase Reglan to Q6 hours and add EES 250mg, Q6 hours and GT feeding decreased to 40 cc/hr. Roll Coverer informed. Spoke with Jennifer and made her aware of vomiting episode and new orders. Appreciated the call. TPN and Lipids discontinued.
--- NOTE | 2018-09-17 14:00 | NUR ---
Spoke with Merlin from [facility] IV pharmacist and he requested BUN and Creatinine result trending. Results faxed to [facility] IV department. He said that he will review the labs and will decide whether to continue same Colistin dosing or not.
[2018-09-17] MEDS: METRONIDAZOLE 500MG/ NS 100ML 500 MG in PREMIX 1 EA IV SCH ×2 (14:50→22:00)
[2018-09-17 16:49] LABS: ALANINE AMINOTRANSFERASE 35 U/L (12-78); ALBUMIN 2.3 g/dL (3.4-5.0); ALKALINE PHOSPHATASE 198 U/L (46-116); ASPARTATE AMINOTRANSFERASE 32 U/L (15-37); BILIRUBIN,TOTAL 0.3 mg/dL (0.2-1.0); CARBON DIOXIDE 22 mmol/L (21-32); CHLORIDE 94 mmol/L (98-107); GLUCOSE 156 mg/dL (74-106); POTASSIUM 3.6 mmol/L (3.5-5.1); SODIUM SERUM 129 mmol/L (136-145); TOTAL PROTEIN, SERUM 7.6 g/dL (6.4-8.2); UREA NITROGEN, BLOOD 54 mg/dL (7-18)
[2018-09-17] MEDS: ERYTHROMYCIN ETHYLSUCCINATE 200 MG/5 ML SUSPENSION GT SCH ×2 (17:30→22:46)
[2018-09-17] MEDS: METOCLOPRAMIDE HCL 10 MG TABLET GT SCH ×2 (17:41→23:18)
[2018-09-17] MEDS ORDERED: ERYTHROMYCIN STEARATE 250 MG TABLET GT SCH (18:00)
--- NOTE | 2018-09-17 18:00 | NUR ---
Spoke with Ariel to follow-up regarding Colistin dosing, according to Ariel, the medication has been sent out and will continue same dosing.
[2018-09-17 18:30] VITALS: BP 110/56
[2018-09-17] MEDS: COLISTIMETHATE SODIUM IV SCH (20:00)
[2018-09-17] MEDS: NS 0.9% IV SCH (20:00)
[2018-09-17 20:04] VITALS: BP 100/50
[2018-09-17] MEDS: SENNOSIDES 8.6 MG TABLET GT SCH (21:21)
[2018-09-18] MEDS: IPRATROPIUM NEB FS 0.5 MG/2.5 ML AMPUL.NEB NEB SCH ×4 (00:40→19:43)
[2018-09-18 00:46] VITALS: BP 104/56
[2018-09-18 05:18] LABS: APPEARANCE,URINE CLEAR (CLEAR); BILIRUBIN,URINE NEGATIVE (NEGATIVE); BLOOD, URINE 2+ Ery/uL (NEGATIVE); COLOR,URINE YELLOW (YELLOW); KETONES,URINE NEGATIVE (NEGATIVE); LEUKOCYTE ESTERASE ,URINE 2+ (NEGATIVE); NITRITE, URINE NEGATIVE (NEGATIVE); PROTEIN,URINE 1+ mg/dl (NEGATIVE); UGLUCOSE NEGATIVE (NEGATIVE); UROBILINOGEN,URINE 0.2 EU/dL (0.2)
[2018-09-18] MEDS: METOCLOPRAMIDE HCL 10 MG TABLET GT SCH ×4 (05:31→23:37)
[2018-09-18] MEDS: ERYTHROMYCIN ETHYLSUCCINATE 200 MG/5 ML SUSPENSION GT SCH ×4 (05:31→23:37)
[2018-09-18] MEDS: BLOOD SUGAR DIAGNOSTIC 1 EACH STRIP IN SCH ×4 (05:39→23:37)
[2018-09-18] MEDS: INSULIN REGULAR, HUMAN 100 UNIT/ML 3 ML VIAL SQ PRN ×4 (05:39→23:37)
[2018-09-18 06:10] LABS: BACTERIA,URINE Few /HPF (None Seen); SQUAMOUS EPITHELIAL CELL,UR Few /HPF (None Seen); WBC,URINE 51-80 /HPF (0-3)
[2018-09-18 06:13] VITALS: BP 106/56
[2018-09-18] MEDS: METRONIDAZOLE 500MG/ NS 100ML 500 MG in PREMIX 1 EA IV SCH (06:22)
[2018-09-18 07:22] LABS: BASOPHILS % (AUTO) 0.4 % (0.0-2.0); EOSINOPHILS % (AUTO) 3.5 % (0.0-6.0); HEMATOCRIT 30 % (33-45); HEMOGLOBIN 9.7 g/dL (11.5-14.8); LYMPHOCYTES % (AUTO) 8.6 % (20.0-44.0); MEAN CORPUSCULAR HGB CONC 32 g/dl (31.0-36.0); MEAN CORPUSCULAR VOLUME 78 fL (82-100); MONOCYTES % (AUTO) 7.9 % (2.0-12.0); NEUTROPHILS # (AUTO) 9.6 /CMM (1.8-8.9); NEUTROPHILS % (AUTO) 79.6 % (43.0-81.0); PLATELET COUNT (AUTO) 198 /CMM (150-450); RED BLOOD CELL COUNT(AUTO) 3.87 MIL/uL (4.0-5.2); WHITE BLOOD COUNT (AUTO) 12.1 K/uL (4.3-11.0)
[2018-09-18 07:30] LABS: CALCIUM, SERUM 8.5 mg/dL (8.5-10.1); CARBON DIOXIDE 20 mmol/L (21-32); CHLORIDE 92 mmol/L (98-107); CREATININE 3.6 mg/dL (0.6-1.3); GLUCOSE 151 mg/dL (74-106); MAGNESIUM 2.6 mg/dL (1.8-2.4); POTASSIUM 3.6 mmol/L (3.5-5.1); SODIUM SERUM 127 mmol/L (136-145); UREA NITROGEN, BLOOD 59 mg/dL (7-18)
[2018-09-18 07:57] VITALS: BP 107/59
[2018-09-18] MEDS: NS 0.9% IV SCH (08:00)
[2018-09-18] MEDS: COLISTIMETHATE SODIUM IV SCH (08:00)
[2018-09-18] MEDS: LINEZOLID RTU BAG 600 MG in PREMIX 1 EA IV SCH (09:00)
[2018-09-18] MEDS: MULTIVIT W/MINERALS 1 TAB TABLET GT SCH (09:18)
[2018-09-18] MEDS: INSULIN DETEMIR 100 UNIT/ML CARTRIDGE SQ SCH ×2 (09:19→21:15)
[2018-09-18] MEDS: CHLORHEXIDINE GLUCONATE 4% 118 ML BOTTLE TP SCH (09:19)
[2018-09-18] MEDS: TRIAMCINOLONE ACETONIDE 0.1% CR 15 GM TUBE TP SCH ×2 (09:19→20:24)
[2018-09-18] MEDS: POVIDONE-IODINE OINT 28.4 GM TUBE TP SCH ×2 (09:19→20:24)
[2018-09-18] MEDS: BACI/NEOM/POLY B OINT PKT 1 UDPKT PACKET TP SCH ×4 (09:20→20:24)
[2018-09-18] MEDS: Z GUARD REMEDY 4 OZ OINT TP SCH ×4 (09:20→20:25)
[2018-09-18] MEDS: VITS A AND D/WHITE PET/LANOLIN 5 GM PACKET TP SCH ×2 (09:20→20:25)
[2018-09-18] MEDS: NYSTATIN CREAM 15 GM TUBE TP SCH ×2 (09:20→20:24)
[2018-09-18] MEDS: ZINC OXIDE 30 GM TUBE TP SCH ×2 (09:20→20:25)
[2018-09-18] MEDS: HYDROGEN PEROXIDE 480 ML BOTTLE TP SCH ×2 (09:20→20:24)
[2018-09-18] MEDS: DOCUSATE SODIUM LIQ 100 MG/10 ML UDC GT SCH (09:23)
[2018-09-18] MEDS: AMLODIPINE BESYLATE 5 MG TABLET GT SCH (09:23)
[2018-09-18] MEDS: METOPROLOL TARTRATE 25 MG TABLET GT SCH ×2 (09:23→20:24)
[2018-09-18] MEDS: ACIDOPHILUS/BULGARICUS 1 EACH TAB.CHEW GT SCH ×2 (09:23→20:23)
--- NOTE | 2018-09-18 11:30 | NUR ---
Seen by Dr Rae. He said to inform Dr Patrick of lab results and do nephrology consult. Addendum: 09/18/18 at 1335 by MARCELLA MITCHELL RN Dr Rae concerned about pt's WBC. Informed him pt is currently on several IV antibiotics and ID is following pt.
[2018-09-18 12:00] VITALS: BP 118/66
--- NOTE | 2018-09-18 12:09 | NUR ---
Relayed BMP result to Dr Patrick. He ordered to give NS at 100 mL/hr IV until further order, do BMP daily for 3 days, and nephrology consult. Informed Dr Patrick that pt was started on EES and pt is on Amlodipine. According to pharmacy there is a drug interaction between EES and Amlodipine. He ordered to DC Amlodipine for now.
[2018-09-18] MEDS: IV NS 0.9% 1,000 ML IV PRN (13:00)
--- NOTE | 2018-09-18 13:49 | NUR ---
Spoke with Dr Felton. Informed him that Dr Patrick is requesting him to see pt for nephrology consult.
--- NOTE | 2018-09-18 18:00 | NUR ---
Called pt's daughter Jennifer. Informed her of pt's elevated creatinine level and nephrology consult. Also informed her that IV antibiotics have been DC'd.
[2018-09-18] MEDS: GLUCERNA 1.2 1,000 ML BOTTLE GT PRN (18:17)
--- NOTE | 2018-09-18 18:30 | NUR ---
Pt's blood sugar 69, and 66 upon recheck. Pt getting continuous tube feeding.
[2018-09-18 18:53] VITALS: BP 105/54
[2018-09-18 19:49] VITALS: BP 128/82
[2018-09-18] MEDS: SENNOSIDES 8.6 MG TABLET GT SCH (21:15)
[2018-09-19 00:14] VITALS: BP 124/79
[2018-09-19] MEDS: IV NS 0.9% 1,000 ML IV PRN (00:19)
[2018-09-19] MEDS: IPRATROPIUM NEB FS 0.5 MG/2.5 ML AMPUL.NEB NEB SCH ×4 (00:44→20:26)
[2018-09-19] MEDS: METOCLOPRAMIDE HCL 10 MG TABLET GT SCH ×4 (05:13→23:10)
[2018-09-19] MEDS: ERYTHROMYCIN ETHYLSUCCINATE 200 MG/5 ML SUSPENSION GT SCH ×4 (05:13→23:10)
[2018-09-19] MEDS: BLOOD SUGAR DIAGNOSTIC 1 EACH STRIP IN SCH ×4 (05:36→23:10)
[2018-09-19] MEDS: INSULIN REGULAR, HUMAN 100 UNIT/ML 3 ML VIAL SQ PRN ×3 (05:37→23:11)
--- NOTE | 2018-09-19 05:49 | NUR ---
Pt blood sugar 60mg/dl D50% Iv administered as ordered.BP 124/65,HR 85.Awake.Will continue to monitor.
[2018-09-19 06:10] VITALS: BP 124/65
--- NOTE | 2018-09-19 06:52 | NUR ---
Re -checked blood sugar 142mg/dl.
[2018-09-19 07:58] VITALS: BP 136/91
[2018-09-19 08:07] LABS: CALCIUM, SERUM 8.9 mg/dL (8.5-10.1); CARBON DIOXIDE 19 mmol/L (21-32); CHLORIDE 95 mmol/L (98-107); CREATININE 4.1 mg/dL (0.6-1.3); GLUCOSE 159 mg/dL (74-106); MAGNESIUM 2.6 mg/dL (1.8-2.4); PHOSPHORUS 5.9 mg/dL (2.5-4.9); POTASSIUM 4.2 mmol/L (3.5-5.1); SODIUM SERUM 130 mmol/L (136-145); UREA NITROGEN, BLOOD 64 mg/dL (7-18)
--- NOTE | 2018-09-19 09:20 | NUR ---
Reminded Dr. Felton of neurology consult for patient. According to MD, he will see patient later on today.
[2018-09-19] MEDS: DOCUSATE SODIUM LIQ 100 MG/10 ML UDC GT SCH (09:47)
[2018-09-19] MEDS: ACIDOPHILUS/BULGARICUS 1 EACH TAB.CHEW GT SCH ×2 (09:47→20:20)
[2018-09-19] MEDS: TRIAMCINOLONE ACETONIDE 0.1% CR 15 GM TUBE TP SCH ×2 (09:48→20:20)
[2018-09-19] MEDS: POVIDONE-IODINE OINT 28.4 GM TUBE TP SCH ×2 (09:48→20:21)
[2018-09-19] MEDS: METOPROLOL TARTRATE 25 MG TABLET GT SCH ×2 (09:48→20:20)
[2018-09-19] MEDS: MULTIVIT W/MINERALS 1 TAB TABLET GT SCH (09:48)
[2018-09-19] MEDS: NYSTATIN CREAM 15 GM TUBE TP SCH ×2 (09:48→20:21)
[2018-09-19] MEDS: HYDROGEN PEROXIDE 480 ML BOTTLE TP SCH ×2 (09:48→20:21)
[2018-09-19] MEDS: BACI/NEOM/POLY B OINT PKT 1 UDPKT PACKET TP SCH ×4 (09:48→20:21)
[2018-09-19] MEDS: VITS A AND D/WHITE PET/LANOLIN 5 GM PACKET TP SCH ×2 (09:49→20:21)
[2018-09-19] MEDS: ZINC OXIDE 30 GM TUBE TP SCH ×2 (09:49→20:21)
[2018-09-19] MEDS: Z GUARD REMEDY 4 OZ OINT TP SCH ×4 (09:49→20:21)
--- NOTE | 2018-09-19 10:42 | NUR ---
Seen and examined by Dr. Felton, nephrology, gave a brief history about the patient. MD aware BMP result today, Creatinine of 4.1 BUN 64. Reported to MD that patient is swollen especially the upper extremities, MD assessed for swelling. Currently receiving IVF NS at 100 cc/hr. Resident has urine output as reported by her DIVIDING MACHINE OPERATOR. Dr. Felton will review chart/labs. NNO given at this time.
[2018-09-19 12:56] VITALS: BP 132/74
--- NOTE | 2018-09-19 15:00 | NUR ---
Seen and examined by Dr. Patrick, reported chest xray and BMP result. Dr. Felton has seen patient with order to do US of the UE due to swelling but result still pending. Patient continue to receive IVF NS at 100cc/hr. NNO given at this time.
--- NOTE | 2018-09-19 15:40 | NUR ---
Asked Dr. Patrick during rounds to review blood sugar result due to hypoglycemic episode. MD adjusted Levemir dosing and put a parameter when to hold medication.
--- NOTE | 2018-09-19 16:21 | NUR ---
Upper extremity venous US result reported to Dr. Felton, showing L brachial vein thrombosis, no evidence of R upper extremity DVT and said to relay with Dr. Patrick to find out what he plans to do. Left a message to Dr. Patrick.
--- NOTE | 2018-09-19 17:15 | NUR ---
After receiving result of UE venous ultrasound, Dr. Patrick ordered to transfer the patient to acute side direct admit to [facility] and call Dr. Stan Rico regarding admission. Left a message to Dr. Stan Rico. Notified nursing cupola melting supervisor of transfer for room assignment.
--- NOTE | 2018-09-19 17:58 | NUR ---
After contacting Dr. Stan Rico regarding reason for transfer, he reviewed US of the upper extremities. He said that patient does not need to be transferred to acute but to start patient on Eliquis 2.5 mg BID/GT. Dr. Patrick made aware of Dr. Stan Rico's order to cancel the transfer and start patient on Eliquis 2.5 mg BID. After consulting with Dr. Felton, Dr. Patrick gave an order to start patient on Eliquis 2.5 mg. /GT BID x 3 months. Resident's daughter informed of new order and result of upper extremity ultrasound result.
--- NOTE | 2018-09-19 18:05 | NUR ---
Resident's daughter Jennifer at bedside and further explained new orders, UE venous US and BMP result.
[2018-09-19 18:16] VITALS: BP 128/79
[2018-09-19] MEDS ORDERED: APIXABAN 5 MG TABLET GT SCH (18:41)
[2018-09-19 19:44] VITALS: BP 143/74
[2018-09-19] MEDS: APIXABAN 2.5 MG TABLET GT SCH (20:20)
--- NOTE | 2018-09-19 20:57 | NUR ---
PT RCVD TRACH'D ON MECHANICAL VENT WITH CHARTED SETTINGS. HHN TX BIRDIE WELL. SX DONE. PT TRACH IS PATENT AND SECURE. VENT PLUGGED INTO RED OUTLET. ALARMS ARE ON AND AUDIBLE. AMBU BAG AT BEDSIDE. WILL CONTINUE TO MONITOR. Addendum: 09/19/18 at 2056 by FELICITAS HCRISTIE RT Amended: Links added.
[2018-09-19] MEDS: SENNOSIDES 8.6 MG TABLET GT SCH (21:13)
[2018-09-19] MEDS: INSULIN DETEMIR 100 UNIT/ML CARTRIDGE SQ SCH (21:13)
[2018-09-19] MEDS: GLUCERNA 1.2 1,000 ML BOTTLE GT PRN (23:20)
[2018-09-20 00:04] VITALS: BP 109/53
[2018-09-20] MEDS: IPRATROPIUM NEB FS 0.5 MG/2.5 ML AMPUL.NEB NEB SCH ×4 (01:19→20:03)
[2018-09-20] MEDS: IV NS 0.9% 1,000 ML IV PRN ×2 (01:54→13:55)
[2018-09-20] MEDS: BLOOD SUGAR DIAGNOSTIC 1 EACH STRIP IN SCH ×3 (05:45→17:20)
[2018-09-20] MEDS: INSULIN REGULAR, HUMAN 100 UNIT/ML 3 ML VIAL SQ PRN ×3 (05:45→17:20)
[2018-09-20] MEDS: METOCLOPRAMIDE HCL 10 MG TABLET GT SCH ×3 (05:45→17:20)
[2018-09-20] MEDS: ERYTHROMYCIN ETHYLSUCCINATE 200 MG/5 ML SUSPENSION GT SCH ×3 (05:45→17:20)
[2018-09-20 06:31] VITALS: BP 102/49
[2018-09-20 07:50] LABS: CALCIUM, SERUM 8.7 mg/dL (8.5-10.1); CARBON DIOXIDE 15 mmol/L (21-32); CHLORIDE 99 mmol/L (98-107); CREATININE 4.3 mg/dL (0.6-1.3); GLUCOSE 132 mg/dL (74-106); POTASSIUM 4.3 mmol/L (3.5-5.1); SODIUM SERUM 131 mmol/L (136-145); UREA NITROGEN, BLOOD 61 mg/dL (7-18)
[2018-09-20 08:01] VITALS: BP 133/74
[2018-09-20] MEDS: ZINC OXIDE 30 GM TUBE TP SCH ×2 (09:00→20:29)
[2018-09-20] MEDS: BACI/NEOM/POLY B OINT PKT 1 UDPKT PACKET TP SCH ×4 (09:00→20:29)
[2018-09-20] MEDS: POVIDONE-IODINE OINT 28.4 GM TUBE TP SCH ×2 (09:00→20:28)
[2018-09-20] MEDS: Z GUARD REMEDY 4 OZ OINT TP SCH ×4 (09:00→20:29)
[2018-09-20] MEDS: TRIAMCINOLONE ACETONIDE 0.1% CR 15 GM TUBE TP SCH ×2 (09:00→20:28)
[2018-09-20] MEDS: HYDROGEN PEROXIDE 480 ML BOTTLE TP SCH ×2 (09:00→20:28)
[2018-09-20] MEDS: NYSTATIN CREAM 15 GM TUBE TP SCH ×2 (09:00→20:28)
[2018-09-20] MEDS: VITS A AND D/WHITE PET/LANOLIN 5 GM PACKET TP SCH ×2 (09:00→20:29)
[2018-09-20] MEDS: DOCUSATE SODIUM LIQ 100 MG/10 ML UDC GT SCH (09:43)
[2018-09-20] MEDS: APIXABAN 2.5 MG TABLET GT SCH ×2 (09:44→20:27)
[2018-09-20] MEDS: ACIDOPHILUS/BULGARICUS 1 EACH TAB.CHEW GT SCH ×2 (09:45→20:27)
[2018-09-20] MEDS: MULTIVIT W/MINERALS 1 TAB TABLET GT SCH (09:47)
[2018-09-20] MEDS: METOPROLOL TARTRATE 25 MG TABLET GT SCH ×2 (09:47→20:28)
[2018-09-20] MEDS: INSULIN DETEMIR 100 UNIT/ML CARTRIDGE SQ SCH ×2 (09:54→20:28)
--- NOTE | 2018-09-20 10:46 | NUR ---
SPOKE TO DR. GOODWIN REGARDING LAB VALUES FROM TODAY (09/20/18), BUN 61 H, CREATININE 4.3, PER DR. MARSHALL CONTINUE HYDRATION AND RELATE ORDERS TO DR. BERKOWITZ.
--- NOTE | 2018-09-20 11:31 | NUR ---
SPOKE TO DR. BERKOWITZ REGARDING LAB VALUES CREATININE 4.3 H, AND BUN 61 H, WITH NEW ORDERS TO REPEAT BMP TOMORROW 09/21/18. ORDERS CARRIED OUT AND RESPONSIBLE REPUBLICAN MADE AWARE.
[2018-09-20 12:05] VITALS: BP 90/51
--- NOTE | 2018-09-20 13:29 | NUR ---
Seen and examined by Donny DORANTES with new orders CBC for tomorrow 09/21/18. order carried out and responsible libertarian made aware.
[2018-09-20 18:00] VITALS: BP 99/60
[2018-09-20 19:39] VITALS: BP 141/50
[2018-09-20] MEDS: SENNOSIDES 8.6 MG TABLET GT SCH (21:19)
[2018-09-21 00:03] VITALS: BP 103/51
[2018-09-21] MEDS: METOCLOPRAMIDE HCL 10 MG TABLET GT SCH ×4 (00:03→17:04)
[2018-09-21] MEDS: INSULIN REGULAR, HUMAN 100 UNIT/ML 3 ML VIAL SQ PRN ×3 (00:03→11:43)
[2018-09-21] MEDS: BLOOD SUGAR DIAGNOSTIC 1 EACH STRIP IN SCH ×4 (00:03→18:18)
[2018-09-21] MEDS: ERYTHROMYCIN ETHYLSUCCINATE 200 MG/5 ML SUSPENSION GT SCH ×4 (00:03→17:04)
[2018-09-21] MEDS: GLUCERNA 1.2 1,000 ML BOTTLE GT PRN ×2 (00:03→04:31)
[2018-09-21] MEDS: IPRATROPIUM NEB FS 0.5 MG/2.5 ML AMPUL.NEB NEB SCH ×4 (01:16→19:32)
[2018-09-21 06:23] VITALS: BP 99/55
[2018-09-21 07:50] LABS: BASOPHILS % (AUTO) 0.3 % (0.0-2.0); EOSINOPHILS % (AUTO) 3.3 % (0.0-6.0); HEMATOCRIT 28 % (33-45); LYMPHOCYTES # (AUTO) 1.4 /CMM (0.8-4.8); LYMPHOCYTES % (AUTO) 12.4 % (20.0-44.0); MEAN CORPUSCULAR HGB CONC 32 g/dl (31.0-36.0); MEAN CORPUSCULAR VOLUME 79 fL (82-100); MONOCYTES # (AUTO) 0.9 /CMM (0.1-1.30); MONOCYTES % (AUTO) 7.8 % (2.0-12.0); NEUTROPHILS # (AUTO) 8.7 /CMM (1.8-8.9); NEUTROPHILS % (AUTO) 76.2 % (43.0-81.0); PLATELET COUNT (AUTO) 171 /CMM (150-450); WHITE BLOOD COUNT (AUTO) 11.4 K/uL (4.3-11.0)
[2018-09-21 07:58] LABS: CALCIUM, SERUM 8.2 mg/dL (8.5-10.1); CARBON DIOXIDE 19 mmol/L (21-32); CHLORIDE 106 mmol/L (98-107); CREATININE 3.9 mg/dL (0.6-1.3); GLUCOSE 123 mg/dL (74-106); POTASSIUM 3.3 mmol/L (3.5-5.1); SODIUM SERUM 141 mmol/L (136-145); UREA NITROGEN, BLOOD 58 mg/dL (7-18)
[2018-09-21 08:06] VITALS: BP 105/79
[2018-09-21] MEDS: DOCUSATE SODIUM LIQ 100 MG/10 ML UDC GT SCH (08:54)
[2018-09-21] MEDS: ACIDOPHILUS/BULGARICUS 1 EACH TAB.CHEW GT SCH ×2 (08:54→21:00)
[2018-09-21] MEDS: APIXABAN 2.5 MG TABLET GT SCH ×2 (08:54→21:00)
[2018-09-21] MEDS: INSULIN DETEMIR 100 UNIT/ML CARTRIDGE SQ SCH ×2 (08:56→21:00)
[2018-09-21] MEDS: METOPROLOL TARTRATE 25 MG TABLET GT SCH ×2 (08:56→21:00)
[2018-09-21] MEDS: MULTIVIT W/MINERALS 1 TAB TABLET GT SCH (08:56)
[2018-09-21] MEDS: NYSTATIN CREAM 15 GM TUBE TP SCH ×2 (08:57→21:00)
[2018-09-21] MEDS: HYDROGEN PEROXIDE 480 ML BOTTLE TP SCH ×2 (08:57→21:00)
[2018-09-21] MEDS: POVIDONE-IODINE OINT 28.4 GM TUBE TP SCH ×2 (08:57→21:00)
[2018-09-21] MEDS: BACI/NEOM/POLY B OINT PKT 1 UDPKT PACKET TP SCH ×4 (08:57→21:00)
[2018-09-21] MEDS: TRIAMCINOLONE ACETONIDE 0.1% CR 15 GM TUBE TP SCH ×2 (08:57→21:00)
[2018-09-21] MEDS: Z GUARD REMEDY 4 OZ OINT TP SCH ×4 (08:58→21:00)
[2018-09-21] MEDS: ZINC OXIDE 30 GM TUBE TP SCH ×2 (08:58→21:00)
[2018-09-21] MEDS: VITS A AND D/WHITE PET/LANOLIN 5 GM PACKET TP SCH ×2 (08:58→21:00)
--- NOTE | 2018-09-21 10:30 | NUR ---
Dr. Felton aware of BMP result with creatinine 3.9, slightly lower than yesterday's result of 4.3. He said to continue with IVF.
--- NOTE | 2018-09-21 11:00 | NUR ---
INSOLE REINFORCER Carole Dodd seen patient and reviewed labs NNO given.
[2018-09-21 14:40] VITALS: BP 105/68
[2018-09-21 18:24] VITALS: BP 115/72
[2018-09-21 19:43] VITALS: BP 151/74
[2018-09-21] MEDS: SENNOSIDES 8.6 MG TABLET GT SCH (22:10)
[2018-09-21] MEDS: IV NS 0.9% 1,000 ML IV PRN (23:30)
[2018-09-22] VITALS: BP 104/75
[2018-09-22] MEDS: ERYTHROMYCIN ETHYLSUCCINATE 200 MG/5 ML SUSPENSION GT SCH ×6 (00:26→23:34)
[2018-09-22] MEDS: METOCLOPRAMIDE HCL 10 MG TABLET GT SCH ×5 (00:26→23:34)
[2018-09-22] MEDS: INSULIN REGULAR, HUMAN 100 UNIT/ML 3 ML VIAL SQ PRN ×5 (00:26→23:34)
[2018-09-22] MEDS: BLOOD SUGAR DIAGNOSTIC 1 EACH STRIP IN SCH ×5 (00:26→23:34)
[2018-09-22] MEDS: IPRATROPIUM NEB FS 0.5 MG/2.5 ML AMPUL.NEB NEB SCH ×4 (02:04→19:28)
[2018-09-22 06:00] VITALS: BP 105/51
--- NOTE | 2018-09-22 08:13 | NUR ---
RT Pt received trached on the vent with noted settings. Pt is awake but does not follow commands, but responds to stimuli when sx'd. Vent alarms are set and audible with BVM by bedside. HYDROMETEOROLOGIST cuff pressure noted. Vent is plugged into red outlet. Sx'd moderate thick white secretions. No respiratory distress noted at this time. Addendum: 09/22/18 at 1323 by ZAK SUAREZ RT Amended: Links added.
[2018-09-22 08:40] VITALS: BP 105/78
[2018-09-22] MEDS: DOCUSATE SODIUM LIQ 100 MG/10 ML UDC GT SCH (08:52)
[2018-09-22] MEDS: APIXABAN 2.5 MG TABLET GT SCH ×2 (08:52→20:54)
[2018-09-22] MEDS: ACIDOPHILUS/BULGARICUS 1 EACH TAB.CHEW GT SCH ×2 (08:53→20:54)
[2018-09-22] MEDS: MULTIVIT W/MINERALS 1 TAB TABLET GT SCH (08:54)
[2018-09-22] MEDS: METOPROLOL TARTRATE 25 MG TABLET GT SCH ×2 (08:54→20:54)
[2018-09-22] MEDS: VITS A AND D/WHITE PET/LANOLIN 5 GM PACKET TP SCH ×2 (09:00→20:55)
[2018-09-22] MEDS: ZINC OXIDE 30 GM TUBE TP SCH ×2 (09:00→20:55)
[2018-09-22] MEDS: NYSTATIN CREAM 15 GM TUBE TP SCH ×2 (09:00→20:55)
[2018-09-22] MEDS: POVIDONE-IODINE OINT 28.4 GM TUBE TP SCH ×2 (09:00→20:54)
[2018-09-22] MEDS: HYDROGEN PEROXIDE 480 ML BOTTLE TP SCH ×2 (09:00→20:55)
[2018-09-22] MEDS: TRIAMCINOLONE ACETONIDE 0.1% CR 15 GM TUBE TP SCH ×2 (09:00→20:54)
[2018-09-22] MEDS: BACI/NEOM/POLY B OINT PKT 1 UDPKT PACKET TP SCH ×4 (09:00→20:55)
[2018-09-22] MEDS: Z GUARD REMEDY 4 OZ OINT TP SCH ×4 (09:00→20:55)
[2018-09-22] MEDS: INSULIN DETEMIR 100 UNIT/ML CARTRIDGE SQ SCH ×2 (09:13→21:28)
[2018-09-22] MEDS: IV NS 0.9% 1,000 ML IV PRN ×2 (10:00→23:30)
[2018-09-22 12:00] VITALS: BP 107/45
[2018-09-22] MEDS: GLUCERNA 1.2 1,000 ML BOTTLE GT PRN (12:29)
[2018-09-22 18:35] VITALS: BP 116/54
[2018-09-22 20:00] VITALS: BP 149/53
[2018-09-22] MEDS: SENNOSIDES 8.6 MG TABLET GT SCH (21:29)
[2018-09-23 00:55] VITALS: BP 129/58
[2018-09-23] MEDS: IPRATROPIUM NEB FS 0.5 MG/2.5 ML AMPUL.NEB NEB SCH ×4 (01:08→19:54)
--- NOTE | 2018-09-23 02:24 | NUR ---
RT NOTE: RECEIVED PT ON ORDERED NOTED VENT SETTINGS. NO RESPIRATORY DISTRESS NOTED. TRACH CHECKED SECURE AND PATENT. SXD AND LAVAGE PT Q ROUND AND NEEDED. TXS GIVEN ORDERED WITH NO ADVERSE REACTIONS NOTED. SPARE TRACH AND AMBU BAG @ BEDSIDE. ALARMS CHECKED ON AND AUDIBLE. WILL CONTINUE TO MONITOR. Addendum: 09/23/18 at 0225 by AREN RAMIREZ RT Amended: Links added.
[2018-09-23] MEDS: ERYTHROMYCIN ETHYLSUCCINATE 200 MG/5 ML SUSPENSION GT SCH ×4 (05:25→23:05)
[2018-09-23] MEDS: METOCLOPRAMIDE HCL 10 MG TABLET GT SCH ×4 (05:25→23:05)
[2018-09-23] MEDS: BLOOD SUGAR DIAGNOSTIC 1 EACH STRIP IN SCH ×4 (05:39→23:06)
[2018-09-23] MEDS: INSULIN REGULAR, HUMAN 100 UNIT/ML 3 ML VIAL SQ PRN ×4 (05:39→23:07)
[2018-09-23 06:15] VITALS: BP 133/60
[2018-09-23 07:51] LABS: BASOPHILS % (AUTO) 0.4 % (0.0-2.0); EOSINOPHILS % (AUTO) 2.5 % (0.0-6.0); HEMATOCRIT 28 % (33-45); HEMOGLOBIN 9.1 g/dL (11.5-14.8); LYMPHOCYTES # (AUTO) 1.2 /CMM (0.8-4.8); LYMPHOCYTES % (AUTO) 11.5 % (20.0-44.0); MEAN CORPUSCULAR HGB CONC 32 g/dl (31.0-36.0); MEAN CORPUSCULAR VOLUME 79 fL (82-100); MONOCYTES % (AUTO) 10.2 % (2.0-12.0); NEUTROPHILS # (AUTO) 7.6 /CMM (1.8-8.9); NEUTROPHILS % (AUTO) 75.4 % (43.0-81.0); PLATELET COUNT (AUTO) 153 /CMM (150-450); RED BLOOD CELL COUNT(AUTO) 3.61 MIL/uL (4.0-5.2); WHITE BLOOD COUNT (AUTO) 10.1 K/uL (4.3-11.0)
[2018-09-23 07:53] VITALS: BP 133/74
[2018-09-23 08:11] LABS: CALCIUM, SERUM 8.4 mg/dL (8.5-10.1); CARBON DIOXIDE 20 mmol/L (21-32); CHLORIDE 106 mmol/L (98-107); CREATININE 4.3 mg/dL (0.6-1.3); GLUCOSE 82 mg/dL (74-106); MAGNESIUM 2.4 mg/dL (1.8-2.4); PHOSPHORUS 4.8 mg/dL (2.5-4.9); POTASSIUM 3.9 mmol/L (3.5-5.1); SODIUM SERUM 140 mmol/L (136-145); UREA NITROGEN, BLOOD 58 mg/dL (7-18)
[2018-09-23] MEDS: ACIDOPHILUS/BULGARICUS 1 EACH TAB.CHEW GT SCH ×2 (08:46→20:41)
[2018-09-23] MEDS: DOCUSATE SODIUM LIQ 100 MG/10 ML UDC GT SCH (08:46)
[2018-09-23] MEDS: METOPROLOL TARTRATE 25 MG TABLET GT SCH ×2 (08:47→20:41)
[2018-09-23] MEDS: APIXABAN 2.5 MG TABLET GT SCH ×2 (08:47→20:41)
[2018-09-23] MEDS: MULTIVIT W/MINERALS 1 TAB TABLET GT SCH (08:53)
[2018-09-23] MEDS: ZINC OXIDE 30 GM TUBE TP SCH ×2 (09:00→20:43)
[2018-09-23] MEDS: POVIDONE-IODINE OINT 28.4 GM TUBE TP SCH ×2 (09:00→20:42)
[2018-09-23] MEDS: Z GUARD REMEDY 4 OZ OINT TP SCH ×4 (09:00→20:43)
[2018-09-23] MEDS: NYSTATIN CREAM 15 GM TUBE TP SCH ×2 (09:00→20:42)
[2018-09-23] MEDS: TRIAMCINOLONE ACETONIDE 0.1% CR 15 GM TUBE TP SCH ×2 (09:00→20:42)
[2018-09-23] MEDS: HYDROGEN PEROXIDE 480 ML BOTTLE TP SCH ×2 (09:00→20:42)
[2018-09-23] MEDS: VITS A AND D/WHITE PET/LANOLIN 5 GM PACKET TP SCH ×2 (09:00→20:43)
[2018-09-23] MEDS: BACI/NEOM/POLY B OINT PKT 1 UDPKT PACKET TP SCH ×3 (09:00→20:42)
[2018-09-23] MEDS: INSULIN DETEMIR 100 UNIT/ML CARTRIDGE SQ SCH ×2 (09:07→21:33)
[2018-09-23 09:08] LABS: EOSINOPHILS % (MANUAL) 2 % (0-4); LYMPHOCYTES % (MANUAL) 14 % (16-48); MONOCYTES % (MANUAL) 6 % (0-11.0); MYELOCYTES % 1 % (0-0); NEUTROPHILS % (MANUAL) 77 (42-76)
[2018-09-23 12:00] VITALS: BP 125/68
[2018-09-23] MEDS: IV NS 0.9% 1,000 ML IV PRN ×2 (12:03→23:30)
[2018-09-23] MEDS: GLUCERNA 1.2 1,000 ML BOTTLE GT PRN (14:58)
--- NOTE | 2018-09-23 15:00 | NUR ---
YNES communicated to pt's son daughter about this Saturday IDT mtf. Daily will not be able to attend it but will be visiting patient on that day after 2 PM
[2018-09-23 18:00] VITALS: BP 129/66
[2018-09-23 20:15] VITALS: BP 108/74
[2018-09-23] MEDS: SENNOSIDES 8.6 MG TABLET GT SCH (21:33)
[2018-09-24 00:18] VITALS: BP 106/58
[2018-09-24] MEDS: IPRATROPIUM NEB FS 0.5 MG/2.5 ML AMPUL.NEB NEB SCH ×4 (01:41→19:46)
[2018-09-24] MEDS: ERYTHROMYCIN ETHYLSUCCINATE 200 MG/5 ML SUSPENSION GT SCH ×4 (05:31→23:32)
[2018-09-24] MEDS: METOCLOPRAMIDE HCL 10 MG TABLET GT SCH ×4 (05:31→23:32)
[2018-09-24] MEDS: BLOOD SUGAR DIAGNOSTIC 1 EACH STRIP IN SCH ×4 (05:51→23:32)
[2018-09-24] MEDS: INSULIN REGULAR, HUMAN 100 UNIT/ML 3 ML VIAL SQ PRN ×4 (05:52→23:33)
[2018-09-24 06:22] VITALS: BP 112/60
[2018-09-24 07:45] VITALS: BP 130/67
[2018-09-24] MEDS: APIXABAN 2.5 MG TABLET GT SCH ×2 (09:26→20:48)
[2018-09-24] MEDS: ACIDOPHILUS/BULGARICUS 1 EACH TAB.CHEW GT SCH ×2 (09:26→20:48)
[2018-09-24] MEDS: DOCUSATE SODIUM LIQ 100 MG/10 ML UDC GT SCH (09:26)
[2018-09-24] MEDS: NYSTATIN CREAM 15 GM TUBE TP SCH ×2 (09:27→20:49)
[2018-09-24] MEDS: TRIAMCINOLONE ACETONIDE 0.1% CR 15 GM TUBE TP SCH ×2 (09:27→20:48)
[2018-09-24] MEDS: METOPROLOL TARTRATE 25 MG TABLET GT SCH ×2 (09:27→20:48)
[2018-09-24] MEDS: HYDROGEN PEROXIDE 480 ML BOTTLE TP SCH ×2 (09:27→20:48)
[2018-09-24] MEDS: POVIDONE-IODINE OINT 28.4 GM TUBE TP SCH ×2 (09:27→20:48)
[2018-09-24] MEDS: INSULIN DETEMIR 100 UNIT/ML CARTRIDGE SQ SCH ×2 (09:27→21:17)
[2018-09-24] MEDS: MULTIVIT W/MINERALS 1 TAB TABLET GT SCH (09:27)
[2018-09-24] MEDS: VITS A AND D/WHITE PET/LANOLIN 5 GM PACKET TP SCH ×2 (09:28→20:49)
[2018-09-24] MEDS: Z GUARD REMEDY 4 OZ OINT TP SCH ×4 (09:28→20:49)
[2018-09-24] MEDS: BACI/NEOM/POLY B OINT PKT 1 UDPKT PACKET TP SCH ×2 (09:28→20:49)
[2018-09-24] MEDS: ZINC OXIDE 30 GM TUBE TP SCH ×2 (09:28→20:49)
--- NOTE | 2018-09-24 10:00 | NUR ---
Seen and examined by Dr. Felton, reviewed recent lab results. No new order given. Continue present treatment.
[2018-09-24] MEDS: IV NS 0.9% 1,000 ML IV PRN ×2 (10:26→20:21)
[2018-09-24 12:00] VITALS: BP 130/67
--- NOTE | 2018-09-24 12:30 | NUR ---
Carried out feeding recommendation of Dr. Felton. Started Nepro at 40 ml/hr x 20 hrs. D/c'd Glucerna 1.2. Requested labs for seth. Dr. Patrick informed.
[2018-09-24] MEDS ORDERED: NEPRO 1,000 ML BOTTLE GT PRN (13:00)
[2018-09-24 18:24] VITALS: BP 110/57
[2018-09-24] MEDS: SENNOSIDES 8.6 MG TABLET GT SCH (21:17)
[2018-09-24 21:20] VITALS: BP 135/60
[2018-09-25 00:38] VITALS: BP 120/58
[2018-09-25] MEDS: IPRATROPIUM NEB FS 0.5 MG/2.5 ML AMPUL.NEB NEB SCH ×4 (01:15→19:30)
[2018-09-25] MEDS: METOCLOPRAMIDE HCL 10 MG TABLET GT SCH ×3 (05:29→17:30)
[2018-09-25] MEDS: ERYTHROMYCIN ETHYLSUCCINATE 200 MG/5 ML SUSPENSION GT SCH ×4 (05:29→23:30)
[2018-09-25] MEDS: BLOOD SUGAR DIAGNOSTIC 1 EACH STRIP IN SCH ×3 (05:56→17:30)
[2018-09-25] MEDS: INSULIN REGULAR, HUMAN 100 UNIT/ML 3 ML VIAL SQ PRN ×3 (05:57→17:38)
[2018-09-25 06:15] VITALS: BP 122/60
[2018-09-25] MEDS: IV NS 0.9% 1,000 ML IV PRN (06:27)
[2018-09-25 07:08] LABS: BASOPHILS % (AUTO) 0.4 % (0.0-2.0); EOSINOPHILS % (AUTO) 2.9 % (0.0-6.0); HEMATOCRIT 30 % (33-45); HEMOGLOBIN 9.6 g/dL (11.5-14.8); LYMPHOCYTES # (AUTO) 1.1 /CMM (0.8-4.8); LYMPHOCYTES % (AUTO) 9.7 % (20.0-44.0); MEAN CORPUSCULAR HGB CONC 32 g/dl (31.0-36.0); MEAN CORPUSCULAR VOLUME 78 fL (82-100); MONOCYTES # (AUTO) 0.8 /CMM (0.1-1.30); MONOCYTES % (AUTO) 6.8 % (2.0-12.0); NEUTROPHILS # (AUTO) 9.2 /CMM (1.8-8.9); NEUTROPHILS % (AUTO) 80.2 % (43.0-81.0); PLATELET COUNT (AUTO) 219 /CMM (150-450); RED BLOOD CELL COUNT(AUTO) 3.88 MIL/uL (4.0-5.2); WHITE BLOOD COUNT (AUTO) 11.5 K/uL (4.3-11.0)
[2018-09-25 07:34] LABS: CALCIUM, SERUM 8.9 mg/dL (8.5-10.1); CARBON DIOXIDE 21 mmol/L (21-32); CHLORIDE 105 mmol/L (98-107); CREATININE 4.1 mg/dL (0.6-1.3); GLUCOSE 157 mg/dL (74-106); MAGNESIUM 2.3 mg/dL (1.8-2.4); PHOSPHORUS 5.7 mg/dL (2.5-4.9); SODIUM SERUM 138 mmol/L (136-145); UREA NITROGEN, BLOOD 54 mg/dL (7-18)
[2018-09-25 07:55] VITALS: BP 114/40
--- NOTE | 2018-09-25 08:08 | NUR ---
RT NOTE: RECEIVED PT ON ORDERED NOTED VENT SETTINGS. NO RESPIRATORY DISTRESS NOTED. TRACH CHECKED SECURE AND PATENT. SXD AND LAVAGE PT Q ROUND AND NEEDED. TXS GIVEN ORDERED WITH NO ADVERSE REACTIONS NOTED. SPARE TRACH AND AMBU BAG @ BEDSIDE. ALARMS CHECKED ON AND AUDIBLE. WILL CONTINUE TO MONITOR.
[2018-09-25 09:02] LABS: BAND % (MANUAL) 5 % (0.0-5.0); EOSINOPHILS % (MANUAL) 3 % (0-4); LYMPHOCYTES % (MANUAL) 10 % (16-48); MONOCYTES % (MANUAL) 8 % (0-11.0); NEUTROPHILS % (MANUAL) 74 (42-76)
[2018-09-25] MEDS: APIXABAN 2.5 MG TABLET GT SCH ×2 (09:47→21:25)
[2018-09-25] MEDS: DOCUSATE SODIUM LIQ 100 MG/10 ML UDC GT SCH (09:47)
[2018-09-25] MEDS: POVIDONE-IODINE OINT 28.4 GM TUBE TP SCH ×2 (09:48→21:27)
[2018-09-25] MEDS: ACIDOPHILUS/BULGARICUS 1 EACH TAB.CHEW GT SCH ×2 (09:48→21:25)
[2018-09-25] MEDS: TRIAMCINOLONE ACETONIDE 0.1% CR 15 GM TUBE TP SCH ×2 (09:48→21:27)
[2018-09-25] MEDS: MULTIVIT W/MINERALS 1 TAB TABLET GT SCH (09:48)
[2018-09-25] MEDS: METOPROLOL TARTRATE 25 MG TABLET GT SCH ×2 (09:48→21:26)
[2018-09-25] MEDS: INSULIN DETEMIR 100 UNIT/ML CARTRIDGE SQ SCH ×2 (09:48→21:27)
[2018-09-25] MEDS: BACI/NEOM/POLY B OINT PKT 1 UDPKT PACKET TP SCH ×2 (09:49→21:28)
[2018-09-25] MEDS: HYDROGEN PEROXIDE 480 ML BOTTLE TP SCH ×2 (09:49→21:28)
[2018-09-25] MEDS: NYSTATIN CREAM 15 GM TUBE TP SCH ×2 (09:49→21:28)
[2018-09-25] MEDS: Z GUARD REMEDY 4 OZ OINT TP SCH ×4 (09:49→21:28)
[2018-09-25] MEDS: VITS A AND D/WHITE PET/LANOLIN 5 GM PACKET TP SCH ×2 (09:49→21:29)
[2018-09-25 18:35] VITALS: BP 114/40
[2018-09-25 18:40] VITALS: BP 102/58
--- NOTE | 2018-09-25 20:00 | NUR ---
Pt on continuos IV hydration NS 100ml/hr.Noted with generalized edema.No distress noted.HOB elevated.Will continue to monitor.
[2018-09-25] MEDS: SENNOSIDES 8.6 MG TABLET GT SCH (21:29)
[2018-09-25] MEDS: NEPRO 1,000 ML BOTTLE GT PRN (21:29)
[2018-09-25 22:59] VITALS: BP 101/59
[2018-09-26] VITALS: BP 101/68
[2018-09-26] MEDS: BLOOD SUGAR DIAGNOSTIC 1 EACH STRIP IN SCH ×5 (00:35→23:45)
[2018-09-26] MEDS: METOCLOPRAMIDE HCL 10 MG TABLET GT SCH ×5 (00:35→23:45)
[2018-09-26] MEDS: INSULIN REGULAR, HUMAN 100 UNIT/ML 3 ML VIAL SQ PRN ×4 (00:37→17:23)
[2018-09-26] MEDS: IPRATROPIUM NEB FS 0.5 MG/2.5 ML AMPUL.NEB NEB SCH ×4 (00:41→19:38)
[2018-09-26] MEDS: IV NS 0.9% 1,000 ML IV PRN (05:12)
[2018-09-26] MEDS: ERYTHROMYCIN ETHYLSUCCINATE 200 MG/5 ML SUSPENSION GT SCH ×4 (05:37→23:45)
[2018-09-26 06:00] VITALS: BP 101/74
[2018-09-26 07:44] VITALS: BP 143/71
--- NOTE | 2018-09-26 09:06 | NUR ---
RT Pt rec'd trached on the vent with noted settings. Pt is awake but does not follow commands, but responds to stimuli when sx'd. Vent alarms are set and audible with BVM by bedside. THERAPY MANAGER cuff pressure noted. Vent is plugged into red outlet. Sx'd moderate thick white secretions. No respiratory distress noted at this time. Addendum: 09/26/18 at 0907 by FLORINDA TSE RT Amended: Links added.
[2018-09-26] MEDS: APIXABAN 2.5 MG TABLET GT SCH ×2 (09:32→20:55)
[2018-09-26] MEDS: METOPROLOL TARTRATE 25 MG TABLET GT SCH ×2 (09:32→20:57)
[2018-09-26] MEDS: MULTIVIT W/MINERALS 1 TAB TABLET GT SCH (09:32)
[2018-09-26] MEDS: DOCUSATE SODIUM LIQ 100 MG/10 ML UDC GT SCH (09:32)
[2018-09-26] MEDS: ACIDOPHILUS/BULGARICUS 1 EACH TAB.CHEW GT SCH ×2 (09:32→20:59)
[2018-09-26] MEDS: INSULIN DETEMIR 100 UNIT/ML CARTRIDGE SQ SCH ×2 (09:33→21:23)
[2018-09-26] MEDS: BACI/NEOM/POLY B OINT PKT 1 UDPKT PACKET TP SCH ×2 (09:33→20:56)
[2018-09-26] MEDS: HYDROGEN PEROXIDE 480 ML BOTTLE TP SCH ×2 (09:33→20:56)
[2018-09-26] MEDS: TRIAMCINOLONE ACETONIDE 0.1% CR 15 GM TUBE TP SCH ×2 (09:33→20:56)
[2018-09-26] MEDS: POVIDONE-IODINE OINT 28.4 GM TUBE TP SCH ×2 (09:33→20:56)
[2018-09-26] MEDS: Z GUARD REMEDY 4 OZ OINT TP SCH ×4 (09:33→20:56)
[2018-09-26] MEDS: NYSTATIN CREAM 15 GM TUBE TP SCH ×2 (09:33→20:56)
[2018-09-26] MEDS: VITS A AND D/WHITE PET/LANOLIN 5 GM PACKET TP SCH ×2 (09:33→20:57)
[2018-09-26 13:34] VITALS: BP 125/82
--- NOTE | 2018-09-26 13:54 | NUR ---
YNES called Dr. Patrick as requested by Dr. Agarwal during today's IDT. Dr. Agarwal wants Dr. Patrick to evaluate pt and meet with family members to discuss treatment. Dr. Patrick informed SW he would be available to meet with family next SaturdaySeptember 30. YNES called pt's daughter and discuss possibility of mtg with
--- NOTE | 2018-09-26 15:00 | NUR ---
INTERDISCIPLINARY TEAM CONFERENCE (IDT) was held today. Resident's daughter Daily unable to attend today's IDT meeting. Dr. Agarwal and the interdisciplinary team reviewed the current plan of care in detail. Reviewed lab result especially BUN and Creatinine. Informed Dr. Agarwal that patient is edematous and despite IVF of NS at 100 cc/hr. patient's creatinine result remain elevated. Dr. Agarwal ordered BMP in AM and will decide if he will decrease rate of current IVF based on BMP result in AM. According to Dr. Agarwal, have Dr. Patrick speak with family to discuss patient's condition and plan of care. Dr. Patrick said that he is available anytime starting Saturday and time will be decided at family's convenience. Jennifer, resident's daughter visiting expressed that she will speak with her siblings this weekend and will talk to Dr. Patrick on Saturday.
[2018-09-26] MEDS ORDERED: ERYTHROMYCIN ETHYLSUCCINATE 200 MG/5 ML SUSPENSION GT SCH (18:30)
[2018-09-26 18:50] VITALS: BP 112/68
[2018-09-26] MEDS: SENNOSIDES 8.6 MG TABLET GT SCH (21:00)
--- NOTE | 2018-09-26 22:55 | NUR ---
SUBACUTE RN NOTE: PATIENT BLOOD SUGAR LEVEL 143MG/DL, PATIENT TO RECEIVE LEVEMIR 8 UNITS PER MD ORDER, NO S/S OF HYPER/HYPOGLYCEMIA NOTED. WILL CONTINUE TO MONITOR.
[2018-09-27] VITALS (7 sets, daily range): BP systolic 121–155; BP diastolic 66–89
[2018-09-27] MEDS: IPRATROPIUM NEB FS 0.5 MG/2.5 ML AMPUL.NEB NEB SCH ×4 (00:44→19:14)
[2018-09-27] MEDS: IV NS 0.9% 1,000 ML IV PRN ×2 (04:04→17:15)
[2018-09-27] MEDS: BLOOD SUGAR DIAGNOSTIC 1 EACH STRIP IN SCH ×3 (05:13→17:43)
[2018-09-27] MEDS: ERYTHROMYCIN ETHYLSUCCINATE 200 MG/5 ML SUSPENSION GT SCH ×3 (05:14→17:42)
[2018-09-27] MEDS: METOCLOPRAMIDE HCL 10 MG TABLET GT SCH ×3 (05:14→17:43)
--- NOTE | 2018-09-27 06:30 | NUR ---
SUBACUTE RN NOTE: PATIENT BLOOD SUGAR LEVEL 141MG/DL, PATIENT TO RECEIVE 2 UNITS OF INSULIN PER SLIDING SCALE, NO S/S OF HYPER/HYPOGLYCEMIA NOTED. WILL CONTINUE TO MONITOR.
[2018-09-27 06:31] LABS: CALCIUM, SERUM 8.5 mg/dL (8.5-10.1); CARBON DIOXIDE 21 mmol/L (21-32); CHLORIDE 106 mmol/L (98-107); CREATININE 3.8 mg/dL (0.6-1.3); GLUCOSE 149 mg/dL (74-106); POTASSIUM 3.4 mmol/L (3.5-5.1); SODIUM SERUM 141 mmol/L (136-145); UREA NITROGEN, BLOOD 57 mg/dL (7-18)
[2018-09-27] MEDS: NEPRO 1,000 ML BOTTLE GT PRN (06:38)
[2018-09-27] MEDS: INSULIN REGULAR, HUMAN 100 UNIT/ML 3 ML VIAL SQ PRN ×3 (06:40→17:45)
[2018-09-27] MEDS: DOCUSATE SODIUM LIQ 100 MG/10 ML UDC GT SCH (08:56)
[2018-09-27] MEDS: ACIDOPHILUS/BULGARICUS 1 EACH TAB.CHEW GT SCH ×2 (08:57→21:47)
[2018-09-27] MEDS: APIXABAN 2.5 MG TABLET GT SCH ×2 (08:57→21:47)
[2018-09-27] MEDS: METOPROLOL TARTRATE 25 MG TABLET GT SCH ×2 (08:58→21:47)
[2018-09-27] MEDS: MULTIVIT W/MINERALS 1 TAB TABLET GT SCH (08:58)
[2018-09-27] MEDS: NYSTATIN CREAM 15 GM TUBE TP SCH ×2 (09:00→21:48)
[2018-09-27] MEDS: HYDROGEN PEROXIDE 480 ML BOTTLE TP SCH ×2 (09:00→21:48)
[2018-09-27] MEDS: Z GUARD REMEDY 4 OZ OINT TP SCH ×4 (09:00→21:49)
[2018-09-27] MEDS: TRIAMCINOLONE ACETONIDE 0.1% CR 15 GM TUBE TP SCH ×2 (09:00→21:48)
[2018-09-27] MEDS: VITS A AND D/WHITE PET/LANOLIN 5 GM PACKET TP SCH ×2 (09:00→21:49)
[2018-09-27] MEDS: POVIDONE-IODINE OINT 28.4 GM TUBE TP SCH ×2 (09:00→21:48)
[2018-09-27] MEDS: BACI/NEOM/POLY B OINT PKT 1 UDPKT PACKET TP SCH ×2 (09:00→21:48)
[2018-09-27] MEDS: INSULIN DETEMIR 100 UNIT/ML CARTRIDGE SQ SCH ×2 (09:20→21:48)
--- NOTE | 2018-09-27 10:35 | NUR ---
Seen and examined by Dr. Patrick, reviewed BMP result with new orders. Continue IV hydration, insert figueroa catheter to accurately measure urine output d/t renal failure. Daughter Jennifer informed of current plan of care. Will continue to monitor.
--- NOTE | 2018-09-27 12:25 | NUR ---
Harman-catheter 16 pitcairn islander by 10 ml inserted as ordered. Tolerated procedure well. New Harman draining clear yellow urine. Kept clean and comfortable. All needs met and attended.
[2018-09-27] MEDS: SENNOSIDES 8.6 MG TABLET GT SCH (21:49)
[2018-09-28] VITALS: BP 124/44
[2018-09-28] MEDS: BLOOD SUGAR DIAGNOSTIC 1 EACH STRIP IN SCH ×4 (00:11→17:32)
[2018-09-28] MEDS: METOCLOPRAMIDE HCL 10 MG TABLET GT SCH ×4 (00:11→17:32)
[2018-09-28] MEDS: ERYTHROMYCIN ETHYLSUCCINATE 200 MG/5 ML SUSPENSION GT SCH ×4 (00:11→17:32)
[2018-09-28] MEDS: INSULIN REGULAR, HUMAN 100 UNIT/ML 3 ML VIAL SQ PRN ×2 (00:12→05:23)
[2018-09-28] MEDS: IPRATROPIUM NEB FS 0.5 MG/2.5 ML AMPUL.NEB NEB SCH ×4 (01:04→19:19)
--- NOTE | 2018-09-28 03:57 | NUR ---
RT NOTE: RECEIVED PT ON ORDERED NOTED VENT SETTINGS. NO RESPIRATORY DISTRESS NOTED. TRACH CHECKED SECURE AND PATENT. SXD AND LAVAGED PT Q ROUND AND NEEDED. TXS GIVEN ORDERED WITH NO ADVERSE REACTIONS NOTED. SPARE TRACH AND AMBU BAG @ BEDSIDE. ALARMS CHECKED. WILL CONTINUE TO MONITOR. Addendum: 09/28/18 at 0359 by AREN RAMIREZ RT Amended: Links added.
[2018-09-28 06:00] VITALS: BP 126/55
--- NOTE | 2018-09-28 08:15 | NUR ---
RT Pt rec'd trached on the vent with noted settings. Pt is awake but does not follow commands, but responds to stimuli when sx'd. Vent alarms are set and audible with BVM by bedside. CHECKING DEPARTMENT SUPERVISOR cuff pressure noted. Vent is plugged into red outlet. Sx'd moderate thick white secretions. No respiratory distress noted at this time. Addendum: 09/28/18 at 0815 by FLORINDA TSE RT Amended: Links added.
[2018-09-28 08:18] VITALS: BP 142/59
[2018-09-28] MEDS: DOCUSATE SODIUM LIQ 100 MG/10 ML UDC GT SCH (09:06)
[2018-09-28] MEDS: MULTIVIT W/MINERALS 1 TAB TABLET GT SCH (09:09)
[2018-09-28] MEDS: ACIDOPHILUS/BULGARICUS 1 EACH TAB.CHEW GT SCH ×2 (09:09→20:37)
[2018-09-28] MEDS: APIXABAN 2.5 MG TABLET GT SCH ×2 (09:09→20:37)
[2018-09-28] MEDS: METOPROLOL TARTRATE 25 MG TABLET GT SCH ×2 (09:09→20:38)
[2018-09-28] MEDS: INSULIN DETEMIR 100 UNIT/ML CARTRIDGE SQ SCH ×2 (09:10→21:16)
[2018-09-28] MEDS: TRIAMCINOLONE ACETONIDE 0.1% CR 15 GM TUBE TP SCH ×2 (09:12→20:39)
[2018-09-28] MEDS: HYDROGEN PEROXIDE 480 ML BOTTLE TP SCH ×2 (09:12→20:39)
[2018-09-28] MEDS: NYSTATIN CREAM 15 GM TUBE TP SCH ×2 (09:12→20:39)
[2018-09-28] MEDS: POVIDONE-IODINE OINT 28.4 GM TUBE TP SCH ×2 (09:12→20:39)
[2018-09-28] MEDS: Z GUARD REMEDY 4 OZ OINT TP SCH ×4 (09:13→20:42)
[2018-09-28] MEDS: BACI/NEOM/POLY B OINT PKT 1 UDPKT PACKET TP SCH ×2 (09:13→20:40)
[2018-09-28] MEDS: VITS A AND D/WHITE PET/LANOLIN 5 GM PACKET TP SCH ×2 (09:13→20:43)
[2018-09-28 14:43] VITALS: BP 138/59
[2018-09-28 18:12] VITALS: BP 115/70
[2018-09-28 20:34] VITALS: BP 142/70
[2018-09-28] MEDS: SENNOSIDES 8.6 MG TABLET GT SCH (21:16)
[2018-09-28] MEDS: IV NS 0.9% 1,000 ML IV PRN (21:29)
[2018-09-29 00:05] VITALS: BP 134/76
[2018-09-29] MEDS: METOCLOPRAMIDE HCL 10 MG TABLET GT SCH ×5 (00:14→23:46)
[2018-09-29] MEDS: INSULIN REGULAR, HUMAN 100 UNIT/ML 3 ML VIAL SQ PRN ×5 (00:14→23:46)
[2018-09-29] MEDS: ERYTHROMYCIN ETHYLSUCCINATE 200 MG/5 ML SUSPENSION GT SCH ×2 (00:14→05:08)
[2018-09-29] MEDS: BLOOD SUGAR DIAGNOSTIC 1 EACH STRIP IN SCH ×5 (00:14→23:46)
[2018-09-29] MEDS: IPRATROPIUM NEB FS 0.5 MG/2.5 ML AMPUL.NEB NEB SCH ×4 (01:28→19:23)
[2018-09-29 06:16] VITALS: BP 146/75
[2018-09-29 07:40] VITALS: BP 150/53
[2018-09-29] MEDS: IV NS 0.9% 1,000 ML IV PRN ×2 (09:15→19:29)
[2018-09-29] MEDS: DOCUSATE SODIUM LIQ 100 MG/10 ML UDC GT SCH (09:43)
[2018-09-29] MEDS: APIXABAN 2.5 MG TABLET GT SCH ×2 (09:43→20:41)
[2018-09-29] MEDS: ACIDOPHILUS/BULGARICUS 1 EACH TAB.CHEW GT SCH ×2 (09:43→20:41)
[2018-09-29] MEDS: MULTIVIT W/MINERALS 1 TAB TABLET GT SCH (09:44)
[2018-09-29] MEDS: METOPROLOL TARTRATE 25 MG TABLET GT SCH ×2 (09:44→20:42)
[2018-09-29] MEDS: INSULIN DETEMIR 100 UNIT/ML CARTRIDGE SQ SCH ×2 (09:48→21:23)
[2018-09-29] MEDS: POVIDONE-IODINE OINT 28.4 GM TUBE TP SCH ×2 (09:48→20:43)
[2018-09-29] MEDS: TRIAMCINOLONE ACETONIDE 0.1% CR 15 GM TUBE TP SCH ×2 (09:49→20:43)
[2018-09-29] MEDS: HYDROGEN PEROXIDE 480 ML BOTTLE TP SCH ×2 (09:50→20:43)
[2018-09-29] MEDS: Z GUARD REMEDY 4 OZ OINT TP SCH ×4 (09:52→20:44)
[2018-09-29] MEDS: BACI/NEOM/POLY B OINT PKT 1 UDPKT PACKET TP SCH ×2 (09:52→20:43)
[2018-09-29] MEDS: NYSTATIN CREAM 15 GM TUBE TP SCH ×2 (09:52→20:43)
[2018-09-29] MEDS: VITS A AND D/WHITE PET/LANOLIN 5 GM PACKET TP SCH ×2 (09:53→20:44)
[2018-09-29 15:40] VITALS: BP 140/53
[2018-09-29] MEDS: NEPRO 1,000 ML BOTTLE GT PRN (17:50)
[2018-09-29 18:12] VITALS: BP 102/72
[2018-09-29 20:14] VITALS: BP 139/62
[2018-09-29] MEDS: SENNOSIDES 8.6 MG TABLET GT SCH (21:23)
[2018-09-30 00:28] VITALS: BP 142/61
[2018-09-30] MEDS: IPRATROPIUM NEB FS 0.5 MG/2.5 ML AMPUL.NEB NEB SCH ×4 (00:48→19:44)
[2018-09-30] MEDS: BLOOD SUGAR DIAGNOSTIC 1 EACH STRIP IN SCH ×3 (05:16→18:01)
[2018-09-30] MEDS: METOCLOPRAMIDE HCL 10 MG TABLET GT SCH ×3 (05:16→18:01)
[2018-09-30] MEDS: INSULIN REGULAR, HUMAN 100 UNIT/ML 3 ML VIAL SQ PRN ×3 (05:17→18:02)
[2018-09-30] MEDS: IV NS 0.9% 1,000 ML IV PRN ×2 (06:00→16:00)
[2018-09-30 06:13] VITALS: BP 144/67
[2018-09-30 07:09] LABS: BASOPHILS % (AUTO) 0.3 % (0.0-2.0); EOSINOPHILS % (AUTO) 1.2 % (0.0-6.0); HEMATOCRIT 26 % (33-45); HEMOGLOBIN 8.4 g/dL (11.5-14.8); LYMPHOCYTES % (AUTO) 7.2 % (20.0-44.0); MEAN CORPUSCULAR HGB CONC 32 g/dl (31.0-36.0); MEAN CORPUSCULAR VOLUME 78 fL (82-100); MONOCYTES # (AUTO) 0.7 /CMM (0.1-1.30); MONOCYTES % (AUTO) 4.9 % (2.0-12.0); NEUTROPHILS # (AUTO) 12.2 /CMM (1.8-8.9); NEUTROPHILS % (AUTO) 86.4 % (43.0-81.0); PLATELET COUNT (AUTO) 310 /CMM (150-450); RED BLOOD CELL COUNT(AUTO) 3.36 MIL/uL (4.0-5.2); WHITE BLOOD COUNT (AUTO) 14.2 K/uL (4.3-11.0)
[2018-09-30 07:27] LABS: ALANINE AMINOTRANSFERASE 14 U/L (12-78); ALBUMIN 2.2 g/dL (3.4-5.0); ALKALINE PHOSPHATASE 111 U/L (46-116); ASPARTATE AMINOTRANSFERASE 20 U/L (15-37); BILIRUBIN,TOTAL 0.3 mg/dL (0.2-1.0); CALCIUM, SERUM 8.5 mg/dL (8.5-10.1); CARBON DIOXIDE 21 mmol/L (21-32); CHLORIDE 107 mmol/L (98-107); CREATININE 3.2 mg/dL (0.6-1.3); GLUCOSE 83 mg/dL (74-106); MAGNESIUM 1.8 mg/dL (1.8-2.4); PHOSPHORUS 2.9 mg/dL (2.5-4.9); SODIUM SERUM 143 mmol/L (136-145); TOTAL PROTEIN, SERUM 7.5 g/dL (6.4-8.2); UREA NITROGEN, BLOOD 50 mg/dL (7-18)
[2018-09-30 07:29] LABS: POTASSIUM 2.5 mmol/L (3.5-5.1)
--- NOTE | 2018-09-30 07:35 | NUR ---
Notified Dr Patrick that pt's potassium level is 2.5.
[2018-09-30 07:46] VITALS: BP 143/43
--- NOTE | 2018-09-30 07:52 | NUR ---
Dr Patrick ordered to give Potassium Chloride 60 mEq via GT x 1 for hypokalemia.
[2018-09-30] MEDS ORDERED: POTASSIUM CHLORIDE 20 MEQ POWDER PACKET GT ONE ×2 (08:30→12:00)
[2018-09-30] MEDS: POVIDONE-IODINE OINT 28.4 GM TUBE TP SCH (09:00)
[2018-09-30] MEDS: Z GUARD REMEDY 4 OZ OINT TP SCH ×4 (09:00→20:53)
[2018-09-30] MEDS: HYDROGEN PEROXIDE 480 ML BOTTLE TP SCH ×2 (09:00→20:53)
[2018-09-30] MEDS: INSULIN DETEMIR 100 UNIT/ML CARTRIDGE SQ SCH ×2 (09:00→20:53)
[2018-09-30] MEDS: VITS A AND D/WHITE PET/LANOLIN 5 GM PACKET TP SCH ×2 (09:00→20:54)
[2018-09-30] MEDS: NYSTATIN CREAM 15 GM TUBE TP SCH ×2 (09:00→20:53)
[2018-09-30] MEDS: BACI/NEOM/POLY B OINT PKT 1 UDPKT PACKET TP SCH ×2 (09:00→20:53)
[2018-09-30] MEDS: TRIAMCINOLONE ACETONIDE 0.1% CR 15 GM TUBE TP SCH ×2 (09:00→20:53)
[2018-09-30] MEDS: DOCUSATE SODIUM LIQ 100 MG/10 ML UDC GT SCH (09:50)
[2018-09-30] MEDS: ACIDOPHILUS/BULGARICUS 1 EACH TAB.CHEW GT SCH ×2 (09:51→20:51)
[2018-09-30] MEDS: APIXABAN 2.5 MG TABLET GT SCH ×2 (09:51→20:51)
[2018-09-30] MEDS: MULTIVIT W/MINERALS 1 TAB TABLET GT SCH (09:52)
[2018-09-30] MEDS: METOPROLOL TARTRATE 25 MG TABLET GT SCH ×2 (09:52→20:52)
--- NOTE | 2018-09-30 15:00 | NUR ---
Dr Patrick aware of lab results. He came to have a meeting with pt's daughter Jennifer. He discussed pt's current condition with daughter and told her that pt's condition will not improve. Daughter said she will talk with her siblings about their mother's condition. Addendum: 09/30/18 at 1714 by MARCELLA MITCHELL RN Pt's creatinine 3.2 today. He said pt is now back on a polyuric stage and pt's hydration can be DC'd in a couple of days depending on lab results. Asked him if he wanted to repeat BMP, he said it is fine.
[2018-09-30 18:10] VITALS: BP 142/55
[2018-09-30 20:52] VITALS: BP 154/73
[2018-09-30] MEDS: SENNOSIDES 8.6 MG TABLET GT SCH (21:19)
[2018-10-01] MEDS: BLOOD SUGAR DIAGNOSTIC 1 EACH STRIP IN SCH ×5 (00:12→23:48)
[2018-10-01] MEDS: NEPRO 1,000 ML BOTTLE GT PRN (00:12)
[2018-10-01] MEDS: METOCLOPRAMIDE HCL 10 MG TABLET GT SCH ×5 (00:12→23:48)
[2018-10-01] MEDS: INSULIN REGULAR, HUMAN 100 UNIT/ML 3 ML VIAL SQ PRN ×5 (00:14→23:51)
[2018-10-01 00:29] VITALS: BP 158/69
[2018-10-01] MEDS: IPRATROPIUM NEB FS 0.5 MG/2.5 ML AMPUL.NEB NEB SCH ×4 (01:31→19:59)
[2018-10-01] MEDS: IV NS 0.9% 1,000 ML IV PRN ×2 (03:00→14:47)
[2018-10-01 06:12] VITALS: BP 144/86
[2018-10-01 07:25] LABS: CALCIUM, SERUM 7.8 mg/dL (8.5-10.1); CARBON DIOXIDE 23 mmol/L (21-32); CHLORIDE 109 mmol/L (98-107); GLUCOSE 118 mg/dL (74-106); SODIUM SERUM 143 mmol/L (136-145); UREA NITROGEN, BLOOD 51 mg/dL (7-18)
[2018-10-01 07:28] LABS: POTASSIUM 2.8 mmol/L (3.5-5.1)
--- NOTE | 2018-10-01 07:45 | NUR ---
BMP result relayed to Dr. Patrick with new order. KCL 60 mEq via GT x 1, carried out. Resident asleep, easy to arouse. No signs of distress. Stable vital signs. BP- 131/52, HR-82, Temp. 98.5, RR-15. Will continue to monitor
[2018-10-01 08:06] VITALS: BP 131/52
[2018-10-01] MEDS: VITS A AND D/WHITE PET/LANOLIN 5 GM PACKET TP SCH ×2 (09:00→21:35)
[2018-10-01] MEDS: TRIAMCINOLONE ACETONIDE 0.1% CR 15 GM TUBE TP SCH ×2 (09:00→21:34)
[2018-10-01] MEDS: NYSTATIN CREAM 15 GM TUBE TP SCH ×2 (09:00→21:34)
[2018-10-01] MEDS: HYDROGEN PEROXIDE 480 ML BOTTLE TP SCH ×2 (09:00→21:34)
[2018-10-01] MEDS: Z GUARD REMEDY 4 OZ OINT TP SCH ×4 (09:00→21:34)
[2018-10-01] MEDS: BACI/NEOM/POLY B OINT PKT 1 UDPKT PACKET TP SCH ×2 (09:00→21:34)
[2018-10-01] MEDS: APIXABAN 2.5 MG TABLET GT SCH ×2 (09:41→21:32)
[2018-10-01] MEDS: ACIDOPHILUS/BULGARICUS 1 EACH TAB.CHEW GT SCH ×2 (09:41→21:32)
[2018-10-01] MEDS: DOCUSATE SODIUM LIQ 100 MG/10 ML UDC GT SCH (09:41)
[2018-10-01] MEDS: METOPROLOL TARTRATE 25 MG TABLET GT SCH ×2 (09:42→21:33)
[2018-10-01] MEDS: MULTIVIT W/MINERALS 1 TAB TABLET GT SCH (09:42)
[2018-10-01] MEDS ORDERED: POTASSIUM CHLORIDE 20 MEQ POWDER PACKET GT ONE (10:00)
[2018-10-01] MEDS: INSULIN DETEMIR 100 UNIT/ML CARTRIDGE SQ SCH ×2 (10:11→21:34)
[2018-10-01 12:00] VITALS: BP 153/85
--- NOTE | 2018-10-01 12:45 | NUR ---
IV hydration decreased rate to 40 ml/hr per Dr. Dixon, carried out.
[2018-10-01 18:00] VITALS: BP 132/72
--- NOTE | 2018-10-01 20:00 | NUR ---
RECEIVED TRACH PT ON MECH VENT WITH NOTED SETTINGS. TRACH IS PATENT AND SECURED. SPORTS BOOKMAKER DONE. Q6 BREATHING TX GIVEN PER MD'S ORDER. NO ADVERSE REACTION NOTED. SX DONE PRN. VENT PLUGGED INTO RED OUTLET. ALARMS ON AND AUDIBLE. AMBU BAG @ BEDSIDE. NO RESP DISTRESS AT THIS TIME. WILL CONT TO MONITOR PT.
[2018-10-01 20:07] VITALS: BP 136/58
[2018-10-01] MEDS: SENNOSIDES 8.6 MG TABLET GT SCH (21:35)
[2018-10-02] VITALS: BP 142/70
[2018-10-02] MEDS: IPRATROPIUM NEB FS 0.5 MG/2.5 ML AMPUL.NEB NEB SCH ×4 (01:02→20:12)
[2018-10-02] MEDS: METOCLOPRAMIDE HCL 10 MG TABLET GT SCH ×4 (05:55→23:55)
[2018-10-02] MEDS: NEPRO 1,000 ML BOTTLE GT PRN (05:55)
[2018-10-02] MEDS: BLOOD SUGAR DIAGNOSTIC 1 EACH STRIP IN SCH ×4 (05:57→23:55)
[2018-10-02 06:26] VITALS: BP 140/72
[2018-10-02 07:03] LABS: BASOPHILS % (AUTO) 0.2 % (0.0-2.0); EOSINOPHILS % (AUTO) 1.8 % (0.0-6.0); HEMATOCRIT 26 % (33-45); HEMOGLOBIN 8.4 g/dL (11.5-14.8); LYMPHOCYTES # (AUTO) 1.1 /CMM (0.8-4.8); LYMPHOCYTES % (AUTO) 8.6 % (20.0-44.0); MEAN CORPUSCULAR HGB CONC 32 g/dl (31.0-36.0); MEAN CORPUSCULAR VOLUME 79 fL (82-100); MONOCYTES # (AUTO) 0.7 /CMM (0.1-1.30); MONOCYTES % (AUTO) 5.8 % (2.0-12.0); NEUTROPHILS # (AUTO) 10.6 /CMM (1.8-8.9); NEUTROPHILS % (AUTO) 83.6 % (43.0-81.0); PLATELET COUNT (AUTO) 330 /CMM (150-450); RED BLOOD CELL COUNT(AUTO) 3.33 MIL/uL (4.0-5.2); WHITE BLOOD COUNT (AUTO) 12.6 K/uL (4.3-11.0)
[2018-10-02 07:11] LABS: ALANINE AMINOTRANSFERASE 13 U/L (12-78); ALBUMIN 2.3 g/dL (3.4-5.0); ALKALINE PHOSPHATASE 114 U/L (46-116); ASPARTATE AMINOTRANSFERASE 13 U/L (15-37); BILIRUBIN,TOTAL 0.3 mg/dL (0.2-1.0); CALCIUM, SERUM 8.4 mg/dL (8.5-10.1); CARBON DIOXIDE 22 mmol/L (21-32); CHLORIDE 109 mmol/L (98-107); CREATININE 2.9 mg/dL (0.6-1.3); GLUCOSE 137 mg/dL (74-106); MAGNESIUM 1.8 mg/dL (1.8-2.4); PHOSPHORUS 2.6 mg/dL (2.5-4.9); POTASSIUM 3.1 mmol/L (3.5-5.1); SODIUM SERUM 145 mmol/L (136-145); TOTAL PROTEIN, SERUM 7.7 g/dL (6.4-8.2); UREA NITROGEN, BLOOD 50 mg/dL (7-18)
[2018-10-02 08:08] VITALS: BP 132/72
[2018-10-02] MEDS: DOCUSATE SODIUM LIQ 100 MG/10 ML UDC GT SCH (08:42)
[2018-10-02] MEDS: APIXABAN 2.5 MG TABLET GT SCH ×2 (08:42→21:51)
[2018-10-02] MEDS: ACIDOPHILUS/BULGARICUS 1 EACH TAB.CHEW GT SCH ×2 (08:42→21:51)
[2018-10-02] MEDS: MULTIVIT W/MINERALS 1 TAB TABLET GT SCH (08:43)
[2018-10-02] MEDS: METOPROLOL TARTRATE 25 MG TABLET GT SCH ×2 (08:43→21:51)
[2018-10-02] MEDS: INSULIN DETEMIR 100 UNIT/ML CARTRIDGE SQ SCH ×2 (08:59→21:52)
[2018-10-02] MEDS: VITS A AND D/WHITE PET/LANOLIN 5 GM PACKET TP SCH ×2 (09:00→21:53)
[2018-10-02] MEDS: HYDROGEN PEROXIDE 480 ML BOTTLE TP SCH ×2 (09:00→21:53)
[2018-10-02] MEDS: NYSTATIN CREAM 15 GM TUBE TP SCH ×2 (09:00→21:53)
[2018-10-02] MEDS: TRIAMCINOLONE ACETONIDE 0.1% CR 15 GM TUBE TP SCH ×2 (09:00→21:52)
[2018-10-02] MEDS: Z GUARD REMEDY 4 OZ OINT TP SCH ×4 (09:00→21:53)
--- NOTE | 2018-10-02 10:00 | NUR ---
Relayed potassium level 3.[address] Patrick. Received order to give Potassium Chloride 40 mEq GT x 1. Notified daughter.
[2018-10-02] MEDS ORDERED: POTASSIUM CHLORIDE 20 MEQ POWDER PACKET GT ONE (11:00)
[2018-10-02 12:00] VITALS: BP 150/82
[2018-10-02] MEDS: INSULIN REGULAR, HUMAN 100 UNIT/ML 3 ML VIAL SQ PRN ×3 (12:09→23:56)
[2018-10-02] MEDS: IV NS 0.9% 1,000 ML IV PRN (15:00)
[2018-10-02 18:00] VITALS: BP 153/64
[2018-10-02 19:59] VITALS: BP 121/80
[2018-10-02] MEDS: SENNOSIDES 8.6 MG TABLET GT SCH (21:53)
[2018-10-03] VITALS: BP 128/88
[2018-10-03] MEDS: IPRATROPIUM NEB FS 0.5 MG/2.5 ML AMPUL.NEB NEB SCH ×4 (01:50→19:33)
[2018-10-03] MEDS: BLOOD SUGAR DIAGNOSTIC 1 EACH STRIP IN SCH ×3 (05:40→17:33)
[2018-10-03] MEDS: METOCLOPRAMIDE HCL 10 MG TABLET GT SCH ×3 (05:40→17:00)
[2018-10-03] MEDS: INSULIN REGULAR, HUMAN 100 UNIT/ML 3 ML VIAL SQ PRN ×3 (05:40→17:34)
[2018-10-03] MEDS: NEPRO 1,000 ML BOTTLE GT PRN (05:55)
[2018-10-03 06:00] VITALS: BP 124/51
[2018-10-03 08:01] VITALS: BP 134/52
[2018-10-03] MEDS: DOCUSATE SODIUM LIQ 100 MG/10 ML UDC GT SCH (08:50)
[2018-10-03] MEDS: APIXABAN 2.5 MG TABLET GT SCH ×2 (08:51→21:30)
[2018-10-03] MEDS: METOPROLOL TARTRATE 25 MG TABLET GT SCH ×2 (08:51→21:04)
[2018-10-03] MEDS: MULTIVIT W/MINERALS 1 TAB TABLET GT SCH (08:51)
[2018-10-03] MEDS: ACIDOPHILUS/BULGARICUS 1 EACH TAB.CHEW GT SCH ×2 (08:51→21:04)
[2018-10-03] MEDS: INSULIN DETEMIR 100 UNIT/ML CARTRIDGE SQ SCH ×2 (09:03→21:30)
[2018-10-03] MEDS: TRIAMCINOLONE ACETONIDE 0.1% CR 15 GM TUBE TP SCH ×2 (09:21→21:04)
[2018-10-03] MEDS: HYDROGEN PEROXIDE 480 ML BOTTLE TP SCH ×2 (09:21→21:04)
[2018-10-03] MEDS: NYSTATIN CREAM 15 GM TUBE TP SCH ×2 (09:21→21:04)
[2018-10-03] MEDS: VITS A AND D/WHITE PET/LANOLIN 5 GM PACKET TP SCH ×2 (09:21→21:05)
[2018-10-03] MEDS: Z GUARD REMEDY 4 OZ OINT TP SCH ×4 (09:21→21:04)
[2018-10-03 12:00] VITALS: BP 131/84
--- NOTE | 2018-10-03 14:52 | NUR ---
PT REC'D TRACHED ON [facility] VENT ON AC MODE. NO RESP DISTRESS OR SOB NOTED. TRACH IS PATENT AND SECURED. SX'D FOR MOD AMT OF PALE YELLOW SECRETIONS. ALARMS ARE SET AND AUDIBLE. VENT PLUGGED INTO RED OUTLET. AMBU BAG BEDSIDE. WILL CONTINUE TO MONITOR. Addendum: 10/03/18 at 1452 by TALA YAO RT Amended: Links added.
--- NOTE | 2018-10-03 15:00 | NUR ---
Seen and examined by Dr. Patrick with new orders and carried. Water flush via GT increased to 250 cc every 6 hrs. Discontinued IV hydration. Repeat BMP on Saturday10/05/18. Will continue to monitor.
--- NOTE | 2018-10-03 15:45 | NUR ---
Seen and examined by AVERY Hoover, no new order given.
--- NOTE | 2018-10-03 16:37 | NUR ---
Gave update to daughter Jennifer regarding new orders given by Dr. Patrick, appreciated the call.
[2018-10-03 18:14] VITALS: BP 139/53
[2018-10-03 20:30] VITALS: BP 109/73
[2018-10-03] MEDS: SENNOSIDES 8.6 MG TABLET GT SCH (21:05)
[2018-10-04] MEDS: BLOOD SUGAR DIAGNOSTIC 1 EACH STRIP IN SCH ×5 (00:20→23:35)
[2018-10-04] MEDS: METOCLOPRAMIDE HCL 10 MG TABLET GT SCH ×5 (00:20→23:35)
[2018-10-04 00:36] VITALS: BP 136/44
[2018-10-04] MEDS: INSULIN REGULAR, HUMAN 100 UNIT/ML 3 ML VIAL SQ PRN ×5 (00:38→23:39)
--- NOTE | 2018-10-04 00:38 | NUR ---
RN NOTES: BLOOD SUGAR WAS 119. NO INSULIN WAS ADMINISTERED.
[2018-10-04] MEDS: IPRATROPIUM NEB FS 0.5 MG/2.5 ML AMPUL.NEB NEB SCH ×4 (01:58→19:33)
[2018-10-04] MEDS: NEPRO 1,000 ML BOTTLE GT PRN (02:48)
[2018-10-04 06:09] VITALS: BP 144/53
[2018-10-04 08:00] VITALS: BP 151/54
[2018-10-04] MEDS: DOCUSATE SODIUM LIQ 100 MG/10 ML UDC GT SCH (08:53)
[2018-10-04] MEDS: ACIDOPHILUS/BULGARICUS 1 EACH TAB.CHEW GT SCH ×2 (08:54→20:28)
[2018-10-04] MEDS: APIXABAN 2.5 MG TABLET GT SCH ×2 (08:54→20:58)
[2018-10-04] MEDS: METOPROLOL TARTRATE 25 MG TABLET GT SCH ×2 (08:55→20:27)
[2018-10-04] MEDS: MULTIVIT W/MINERALS 1 TAB TABLET GT SCH (08:55)
[2018-10-04] MEDS: NYSTATIN CREAM 15 GM TUBE TP SCH (09:00)
[2018-10-04] MEDS: TRIAMCINOLONE ACETONIDE 0.1% CR 15 GM TUBE TP SCH (09:00)
[2018-10-04] MEDS: VITS A AND D/WHITE PET/LANOLIN 5 GM PACKET TP SCH ×2 (09:00→20:29)
[2018-10-04] MEDS: HYDROGEN PEROXIDE 480 ML BOTTLE TP SCH ×2 (09:00→20:28)
[2018-10-04] MEDS: Z GUARD REMEDY 4 OZ OINT TP SCH ×4 (09:00→20:29)
[2018-10-04] MEDS: INSULIN DETEMIR 100 UNIT/ML CARTRIDGE SQ SCH ×2 (09:08→21:24)
[2018-10-04 12:00] VITALS: BP 147/62
[2018-10-04 18:30] VITALS: BP 136/59
[2018-10-04] MEDS: Z GUARD REMEDY 2 OZ OINT TP SCH (20:29)
[2018-10-04] MEDS: NYSTATIN/TRIAMCIN 15 GM CREAM 15 GM TUBE TP SCH (20:30)
[2018-10-04 20:51] VITALS: BP 127/54
[2018-10-04] MEDS: SENNOSIDES 8.6 MG TABLET GT SCH (21:19)
[2018-10-05] VITALS: BP 158/75
[2018-10-05] MEDS: IPRATROPIUM NEB FS 0.5 MG/2.5 ML AMPUL.NEB NEB SCH ×4 (01:37→19:25)
[2018-10-05] MEDS: METOCLOPRAMIDE HCL 10 MG TABLET GT SCH ×3 (05:42→18:29)
[2018-10-05] MEDS: INSULIN REGULAR, HUMAN 100 UNIT/ML 3 ML VIAL SQ PRN ×3 (05:51→18:31)
[2018-10-05] MEDS: BLOOD SUGAR DIAGNOSTIC 1 EACH STRIP IN SCH ×3 (05:52→18:29)
[2018-10-05 06:00] VITALS: BP 140/72
[2018-10-05 07:17] LABS: CALCIUM, SERUM 8.4 mg/dL (8.5-10.1); CARBON DIOXIDE 26 mmol/L (21-32); CHLORIDE 104 mmol/L (98-107); CREATININE 2.6 mg/dL (0.6-1.3); GLUCOSE 115 mg/dL (74-106); SODIUM SERUM 142 mmol/L (136-145); UREA NITROGEN, BLOOD 54 mg/dL (7-18)
[2018-10-05 07:41] LABS: POTASSIUM 2.8 mmol/L (3.5-5.1)
[2018-10-05 07:50] VITALS: BP 126/49
--- NOTE | 2018-10-05 08:05 | NUR ---
Notified Dr Patrick that pt's potassium level is 2.8. He ordered to give Potassium Chloride 80 mEq via GT x 1 for hypokalemia.
[2018-10-05] MEDS: DOCUSATE SODIUM LIQ 100 MG/10 ML UDC GT SCH (09:46)
[2018-10-05] MEDS: ACIDOPHILUS/BULGARICUS 1 EACH TAB.CHEW GT SCH ×2 (09:47→20:39)
[2018-10-05] MEDS: APIXABAN 2.5 MG TABLET GT SCH ×2 (09:47→20:39)
[2018-10-05] MEDS: METOPROLOL TARTRATE 25 MG TABLET GT SCH ×2 (09:48→20:39)
[2018-10-05] MEDS: MULTIVIT W/MINERALS 1 TAB TABLET GT SCH (09:48)
[2018-10-05] MEDS: INSULIN DETEMIR 100 UNIT/ML CARTRIDGE SQ SCH ×2 (09:50→21:36)
[2018-10-05] MEDS: NYSTATIN/TRIAMCIN 15 GM CREAM 15 GM TUBE TP SCH ×2 (09:51→20:40)
[2018-10-05] MEDS: Z GUARD REMEDY 2 OZ OINT TP SCH ×2 (09:51→20:40)
[2018-10-05] MEDS: Z GUARD REMEDY 4 OZ OINT TP SCH ×4 (09:51→20:41)
[2018-10-05] MEDS: HYDROGEN PEROXIDE 480 ML BOTTLE TP SCH ×2 (09:51→20:40)
[2018-10-05] MEDS: VITS A AND D/WHITE PET/LANOLIN 5 GM PACKET TP SCH ×2 (09:52→20:41)
[2018-10-05] MEDS ORDERED: POTASSIUM CHLORIDE 20 MEQ POWDER PACKET GT ONE (10:30)
[2018-10-05 15:06] VITALS: BP 126/49
[2018-10-05 18:31] VITALS: BP 140/74
[2018-10-05 20:22] VITALS: BP 149/63
[2018-10-05] MEDS: SENNOSIDES 8.6 MG TABLET GT SCH (21:36)
[2018-10-06 00:06] VITALS: BP 139/80
[2018-10-06] MEDS: BLOOD SUGAR DIAGNOSTIC 1 EACH STRIP IN SCH ×4 (00:08→18:27)
[2018-10-06] MEDS: METOCLOPRAMIDE HCL 10 MG TABLET GT SCH ×4 (00:08→18:27)
[2018-10-06] MEDS: INSULIN REGULAR, HUMAN 100 UNIT/ML 3 ML VIAL SQ PRN ×4 (00:09→18:29)
[2018-10-06] MEDS: IPRATROPIUM NEB FS 0.5 MG/2.5 ML AMPUL.NEB NEB SCH ×4 (01:19→19:56)
[2018-10-06 06:13] VITALS: BP 124/80
[2018-10-06 08:05] VITALS: BP 160/55
[2018-10-06] MEDS: ACIDOPHILUS/BULGARICUS 1 EACH TAB.CHEW GT SCH ×2 (09:38→20:27)
[2018-10-06] MEDS: DOCUSATE SODIUM LIQ 100 MG/10 ML UDC GT SCH (09:38)
[2018-10-06] MEDS: APIXABAN 2.5 MG TABLET GT SCH ×2 (09:38→20:26)
[2018-10-06] MEDS: MULTIVIT W/MINERALS 1 TAB TABLET GT SCH (09:39)
[2018-10-06] MEDS: METOPROLOL TARTRATE 25 MG TABLET GT SCH ×2 (09:39→20:28)
[2018-10-06] MEDS: INSULIN DETEMIR 100 UNIT/ML CARTRIDGE SQ SCH ×2 (09:47→20:49)
[2018-10-06] MEDS: HYDROGEN PEROXIDE 480 ML BOTTLE TP SCH ×2 (09:53→20:29)
[2018-10-06] MEDS: NYSTATIN/TRIAMCIN 15 GM CREAM 15 GM TUBE TP SCH ×2 (09:54→20:29)
[2018-10-06] MEDS: Z GUARD REMEDY 4 OZ OINT TP SCH ×4 (09:55→20:30)
[2018-10-06] MEDS: Z GUARD REMEDY 2 OZ OINT TP SCH ×2 (09:55→20:29)
[2018-10-06] MEDS: VITS A AND D/WHITE PET/LANOLIN 5 GM PACKET TP SCH ×2 (09:55→20:30)
[2018-10-06] MEDS: NEPRO 1,000 ML BOTTLE GT PRN (12:10)
[2018-10-06 14:42] VITALS: BP 142/75
[2018-10-06 18:29] VITALS: BP 138/76
[2018-10-06 20:16] VITALS: BP 138/71
[2018-10-06] MEDS: SENNOSIDES 8.6 MG TABLET GT SCH (21:33)
[2018-10-07] MEDS: BLOOD SUGAR DIAGNOSTIC 1 EACH STRIP IN SCH ×4 (00:17→17:57)
[2018-10-07] MEDS: METOCLOPRAMIDE HCL 10 MG TABLET GT SCH ×4 (00:17→17:57)
[2018-10-07] MEDS: INSULIN REGULAR, HUMAN 100 UNIT/ML 3 ML VIAL SQ PRN ×4 (00:19→17:59)
[2018-10-07 00:20] VITALS: BP 135/70
[2018-10-07] MEDS: IPRATROPIUM NEB FS 0.5 MG/2.5 ML AMPUL.NEB NEB SCH ×4 (01:52→20:20)
[2018-10-07 06:09] VITALS: BP 134/63
[2018-10-07 07:44] VITALS: BP 159/84
--- NOTE | 2018-10-07 09:13 | NUR ---
Seen and examined by Dr. Agarwal, new order given to repeat BMP today. Asked MD if we can have an OT eval to reassess order for L elbow extension stretch, no longer necessary as patient's L arm already straight. Dr. Agarwal said no. Will follow-up with OT to reassess during their monthly screening.
[2018-10-07] MEDS: ACIDOPHILUS/BULGARICUS 1 EACH TAB.CHEW GT SCH ×2 (09:35→20:24)
[2018-10-07] MEDS: APIXABAN 2.5 MG TABLET GT SCH ×2 (09:35→20:23)
[2018-10-07] MEDS: DOCUSATE SODIUM LIQ 100 MG/10 ML UDC GT SCH (09:35)
[2018-10-07] MEDS: METOPROLOL TARTRATE 25 MG TABLET GT SCH ×2 (09:37→20:24)
[2018-10-07] MEDS: MULTIVIT W/MINERALS 1 TAB TABLET GT SCH (09:37)
[2018-10-07] MEDS: HYDROGEN PEROXIDE 480 ML BOTTLE TP SCH ×2 (09:39→20:25)
[2018-10-07] MEDS: INSULIN DETEMIR 100 UNIT/ML CARTRIDGE SQ SCH ×2 (09:39→21:17)
[2018-10-07] MEDS: NYSTATIN/TRIAMCIN 15 GM CREAM 15 GM TUBE TP SCH ×2 (09:39→20:25)
[2018-10-07] MEDS: VITS A AND D/WHITE PET/LANOLIN 5 GM PACKET TP SCH ×2 (09:40→20:25)
[2018-10-07] MEDS: Z GUARD REMEDY 4 OZ OINT TP SCH ×4 (09:40→20:25)
[2018-10-07] MEDS: Z GUARD REMEDY 2 OZ OINT TP SCH ×2 (09:40→20:25)
[2018-10-07 10:38] LABS: CALCIUM, SERUM 9.2 mg/dL (8.5-10.1); CARBON DIOXIDE 27 mmol/L (21-32); CHLORIDE 102 mmol/L (98-107); CREATININE 2.7 mg/dL (0.6-1.3); GLUCOSE 179 mg/dL (74-106); POTASSIUM 4.2 mmol/L (3.5-5.1); SODIUM SERUM 139 mmol/L (136-145); UREA NITROGEN, BLOOD 57 mg/dL (7-18)
--- NOTE | 2018-10-07 10:43 | NUR ---
Seen by OT for screening, reassessed L elbow exercises, new order to dc order. Orders carried out.
--- NOTE | 2018-10-07 15:00 | NUR ---
Notified Dr. Agarwal of BMP result NNO given. Resident's daughter visited earlier and made aware that a follow-up BMP was ordered. Appreciated the update.
[2018-10-07] MEDS: NEPRO 1,000 ML BOTTLE GT PRN (15:13)
[2018-10-07 16:46] VITALS: BP 138/76
[2018-10-07 18:16] VITALS: BP 102/77
[2018-10-07 20:30] VITALS: BP 102/75
[2018-10-07] MEDS: SENNOSIDES 8.6 MG TABLET GT SCH (21:17)
[2018-10-08 00:22] VITALS: BP 129/76
[2018-10-08] MEDS: METOCLOPRAMIDE HCL 10 MG TABLET GT SCH ×5 (00:23→23:58)
[2018-10-08] MEDS: BLOOD SUGAR DIAGNOSTIC 1 EACH STRIP IN SCH ×5 (00:23→23:58)
[2018-10-08] MEDS: INSULIN REGULAR, HUMAN 100 UNIT/ML 3 ML VIAL SQ PRN ×5 (00:25→23:58)
[2018-10-08] MEDS: IPRATROPIUM NEB FS 0.5 MG/2.5 ML AMPUL.NEB NEB SCH ×4 (02:20→20:17)
[2018-10-08 06:07] VITALS: BP 143/60
[2018-10-08 07:28] LABS: CALCIUM, SERUM 9.5 mg/dL (8.5-10.1); CARBON DIOXIDE 27 mmol/L (21-32); CHLORIDE 100 mmol/L (98-107); CREATININE 2.7 mg/dL (0.6-1.3); GLUCOSE 151 mg/dL (74-106); MAGNESIUM 2.1 mg/dL (1.8-2.4); POTASSIUM 3.7 mmol/L (3.5-5.1); SODIUM SERUM 139 mmol/L (136-145); UREA NITROGEN, BLOOD 60 mg/dL (7-18)
[2018-10-08 07:39] VITALS: BP 146/78
[2018-10-08 08:00] VITALS: BP 146/78
[2018-10-08] MEDS: VITS A AND D/WHITE PET/LANOLIN 5 GM PACKET TP SCH ×2 (09:00→21:05)
[2018-10-08] MEDS: Z GUARD REMEDY 2 OZ OINT TP SCH ×2 (09:00→21:04)
[2018-10-08] MEDS: HYDROGEN PEROXIDE 480 ML BOTTLE TP SCH ×2 (09:00→21:04)
[2018-10-08] MEDS: APIXABAN 2.5 MG TABLET GT SCH ×2 (09:00→21:03)
[2018-10-08] MEDS: MULTIVIT W/MINERALS 1 TAB TABLET GT SCH (09:00)
[2018-10-08] MEDS: INSULIN DETEMIR 100 UNIT/ML CARTRIDGE SQ SCH ×2 (09:00→21:45)
[2018-10-08] MEDS: NYSTATIN/TRIAMCIN 15 GM CREAM 15 GM TUBE TP SCH ×2 (09:00→21:04)
[2018-10-08] MEDS: DOCUSATE SODIUM LIQ 100 MG/10 ML UDC GT SCH (09:00)
[2018-10-08] MEDS: METOPROLOL TARTRATE 25 MG TABLET GT SCH ×2 (09:00→21:03)
[2018-10-08] MEDS: ACIDOPHILUS/BULGARICUS 1 EACH TAB.CHEW GT SCH ×2 (09:00→21:03)
[2018-10-08] MEDS: Z GUARD REMEDY 4 OZ OINT TP SCH ×4 (09:00→21:05)
--- NOTE | 2018-10-08 15:30 | NUR ---
Seen and examined by Dr. Patrick, reviewed BMP results. According to Dr. Patrick, patient's creatinine has been stable within the 2.5-2.7 range. Asked MD if he would like to DC patient's PICC line, he said to keep it for a while in case we need it, because Dr. Aguirre, ID was consulted earlier regarding keeping PICC line but instead he said to refer to Dr. Patrick. NNO given.
[2018-10-08 18:00] VITALS: BP 138/62
[2018-10-08 20:12] VITALS: BP 139/65
[2018-10-08] MEDS: SENNOSIDES 8.6 MG TABLET GT SCH (21:05)
[2018-10-09 00:25] VITALS: BP 140/78
[2018-10-09] MEDS: IPRATROPIUM NEB FS 0.5 MG/2.5 ML AMPUL.NEB NEB SCH ×4 (01:41→19:33)
[2018-10-09] MEDS: NEPRO 1,000 ML BOTTLE GT PRN (03:00)
[2018-10-09] MEDS: BLOOD SUGAR DIAGNOSTIC 1 EACH STRIP IN SCH ×4 (05:51→23:48)
[2018-10-09] MEDS: METOCLOPRAMIDE HCL 10 MG TABLET GT SCH ×4 (05:51→23:48)
[2018-10-09] MEDS: INSULIN REGULAR, HUMAN 100 UNIT/ML 3 ML VIAL SQ PRN ×4 (05:54→23:51)
[2018-10-09 06:26] VITALS: BP 140/77
[2018-10-09 07:06] LABS: BASOPHILS % (AUTO) 0.3 % (0.0-2.0); EOSINOPHILS % (AUTO) 2.2 % (0.0-6.0); HEMATOCRIT 31 % (33-45); HEMOGLOBIN 9.7 g/dL (11.5-14.8); LYMPHOCYTES % (AUTO) 13.6 % (20.0-44.0); MEAN CORPUSCULAR HGB CONC 32 g/dl (31.0-36.0); MEAN CORPUSCULAR VOLUME 79 fL (82-100); MONOCYTES # (AUTO) 0.9 /CMM (0.1-1.30); MONOCYTES % (AUTO) 6.5 % (2.0-12.0); NEUTROPHILS # (AUTO) 11.3 /CMM (1.8-8.9); NEUTROPHILS % (AUTO) 77.4 % (43.0-81.0); PLATELET COUNT (AUTO) 316 /CMM (150-450); RED BLOOD CELL COUNT(AUTO) 3.86 MIL/uL (4.0-5.2); WHITE BLOOD COUNT (AUTO) 14.6 K/uL (4.3-11.0)
[2018-10-09 07:59] VITALS: BP 146/71
[2018-10-09] MEDS: NYSTATIN/TRIAMCIN 15 GM CREAM 15 GM TUBE TP SCH ×2 (09:00→21:27)
[2018-10-09] MEDS: METOPROLOL TARTRATE 25 MG TABLET GT SCH ×2 (09:00→21:27)
[2018-10-09] MEDS: INSULIN DETEMIR 100 UNIT/ML CARTRIDGE SQ SCH ×2 (09:00→21:27)
[2018-10-09] MEDS: MULTIVIT W/MINERALS 1 TAB TABLET GT SCH (09:00)
[2018-10-09] MEDS: ACIDOPHILUS/BULGARICUS 1 EACH TAB.CHEW GT SCH ×2 (09:00→21:26)
[2018-10-09] MEDS: APIXABAN 2.5 MG TABLET GT SCH ×2 (09:00→21:26)
[2018-10-09] MEDS: HYDROGEN PEROXIDE 480 ML BOTTLE TP SCH ×2 (09:00→21:27)
[2018-10-09] MEDS: VITS A AND D/WHITE PET/LANOLIN 5 GM PACKET TP SCH ×2 (09:00→21:29)
[2018-10-09] MEDS: Z GUARD REMEDY 2 OZ OINT TP SCH ×2 (09:00→21:28)
[2018-10-09] MEDS: DOCUSATE SODIUM LIQ 100 MG/10 ML UDC GT SCH (09:00)
[2018-10-09] MEDS: Z GUARD REMEDY 4 OZ OINT TP SCH ×4 (09:00→21:28)
[2018-10-09 12:00] VITALS: BP 148/84
[2018-10-09 18:27] VITALS: BP 128/65
--- NOTE | 2018-10-09 19:30 | NUR ---
Seen and examined by Maria Fernanda garrison.
[2018-10-09 20:25] VITALS: BP 133/73
[2018-10-09] MEDS: MAGNESIUM HYDROXIDE 30 ML UDC GT PRN (21:29)
[2018-10-09] MEDS: SENNOSIDES 8.6 MG TABLET GT SCH (21:29)
[2018-10-10 00:33] VITALS: BP 138/72
[2018-10-10] MEDS: IPRATROPIUM NEB FS 0.5 MG/2.5 ML AMPUL.NEB NEB SCH ×4 (00:56→19:06)
[2018-10-10] MEDS: METOCLOPRAMIDE HCL 10 MG TABLET GT SCH ×4 (05:31→23:54)
[2018-10-10] MEDS: BLOOD SUGAR DIAGNOSTIC 1 EACH STRIP IN SCH ×3 (05:31→18:11)
[2018-10-10] MEDS: INSULIN REGULAR, HUMAN 100 UNIT/ML 3 ML VIAL SQ PRN ×3 (05:32→18:11)
[2018-10-10] MEDS: NEPRO 1,000 ML BOTTLE GT PRN (06:00)
[2018-10-10 06:18] VITALS: BP 136/67
[2018-10-10] MEDS: BISACODYL SUPP (10 MG) 10 MG/SUPP.RECT SUPP.RECT RC PRN (06:25)
[2018-10-10 07:30] LABS: BASOPHILS # (AUTO) 0.1 /CMM (0.0-0.2); BASOPHILS % (AUTO) 0.7 % (0.0-2.0); EOSINOPHILS % (AUTO) 3.2 % (0.0-6.0); HEMATOCRIT 30 % (33-45); HEMOGLOBIN 9.5 g/dL (11.5-14.8); LYMPHOCYTES # (AUTO) 1.7 /CMM (0.8-4.8); LYMPHOCYTES % (AUTO) 13.5 % (20.0-44.0); MEAN CORPUSCULAR HGB CONC 32 g/dl (31.0-36.0); MEAN CORPUSCULAR VOLUME 78 fL (82-100); MONOCYTES % (AUTO) 7.7 % (2.0-12.0); NEUTROPHILS # (AUTO) 9.3 /CMM (1.8-8.9); NEUTROPHILS % (AUTO) 74.9 % (43.0-81.0); PLATELET COUNT (AUTO) 302 /CMM (150-450); RED BLOOD CELL COUNT(AUTO) 3.81 MIL/uL (4.0-5.2); WHITE BLOOD COUNT (AUTO) 12.5 K/uL (4.3-11.0)
[2018-10-10 07:49] LABS: CALCIUM, SERUM 9.5 mg/dL (8.5-10.1); CARBON DIOXIDE 28 mmol/L (21-32); CHLORIDE 98 mmol/L (98-107); CREATININE 2.6 mg/dL (0.6-1.3); GLUCOSE 114 mg/dL (74-106); MAGNESIUM 2.6 mg/dL (1.8-2.4); PHOSPHORUS 3.8 mg/dL (2.5-4.9); POTASSIUM 4.2 mmol/L (3.5-5.1); SODIUM SERUM 136 mmol/L (136-145); UREA NITROGEN, BLOOD 69 mg/dL (7-18)
[2018-10-10 07:57] VITALS: BP 129/54
[2018-10-10] MEDS: APIXABAN 2.5 MG TABLET GT SCH ×2 (09:00→21:44)
[2018-10-10] MEDS: Z GUARD REMEDY 2 OZ OINT TP SCH ×2 (09:00→20:44)
[2018-10-10] MEDS: METOPROLOL TARTRATE 25 MG TABLET GT SCH ×2 (09:00→20:44)
[2018-10-10] MEDS: DOCUSATE SODIUM LIQ 100 MG/10 ML UDC GT SCH (09:00)
[2018-10-10] MEDS: ACIDOPHILUS/BULGARICUS 1 EACH TAB.CHEW GT SCH ×2 (09:00→20:43)
[2018-10-10] MEDS: VITS A AND D/WHITE PET/LANOLIN 5 GM PACKET TP SCH ×2 (09:00→20:44)
[2018-10-10] MEDS: Z GUARD REMEDY 4 OZ OINT TP SCH ×4 (09:00→20:44)
[2018-10-10] MEDS: INSULIN DETEMIR 100 UNIT/ML CARTRIDGE SQ SCH ×2 (09:00→21:44)
[2018-10-10] MEDS: MULTIVIT W/MINERALS 1 TAB TABLET GT SCH (09:00)
[2018-10-10] MEDS: NYSTATIN/TRIAMCIN 15 GM CREAM 15 GM TUBE TP SCH ×2 (09:00→20:44)
[2018-10-10 12:00] VITALS: BP 137/72
[2018-10-10] MEDS: HYDROGEN PEROXIDE 480 ML BOTTLE TP SCH ×2 (13:39→20:44)
--- NOTE | 2018-10-10 17:11 | NUR ---
RT NOTE: RECEIVED PT ON NOTED ORDERED VENT SETTINGS. NO RESPIRATORY DISTRESS NOTED. TRACH CHECKED SECURE AND PATENT. SXD AND LAVAGED PT Q ROUND AND NEEDED. TXS GIVEN ORDERED WITH NO ADVERSE REACTIONS NOTED. TRACH CARE DONE. SPARE TRACH AND FROY BERGER @ BEDSIDE. ALARMS CHECKED ON AND AUDIBLE. Addendum: 10/10/18 at 1713 by AREN RAMIREZ RT Amended: Links added.
[2018-10-10] MEDS: MAGNESIUM HYDROXIDE 30 ML UDC GT PRN (18:11)
[2018-10-10 18:12] VITALS: BP 129/69
[2018-10-10 20:17] VITALS: BP 125/62
[2018-10-10] MEDS: SENNOSIDES 8.6 MG TABLET GT SCH (21:44)
[2018-10-11] VITALS: BP 135/69
[2018-10-11] MEDS: BLOOD SUGAR DIAGNOSTIC 1 EACH STRIP IN SCH ×4 (00:11→17:49)
[2018-10-11] MEDS: INSULIN REGULAR, HUMAN 100 UNIT/ML 3 ML VIAL SQ PRN ×4 (00:18→17:48)
[2018-10-11] MEDS: IPRATROPIUM NEB FS 0.5 MG/2.5 ML AMPUL.NEB NEB SCH ×4 (00:38→19:38)
[2018-10-11] MEDS: METOCLOPRAMIDE HCL 10 MG TABLET GT SCH ×3 (05:35→17:49)
[2018-10-11] MEDS: BISACODYL SUPP (10 MG) 10 MG/SUPP.RECT SUPP.RECT RC PRN (05:35)
[2018-10-11 06:00] VITALS: BP 135/65
[2018-10-11] MEDS: HYDROGEN PEROXIDE 480 ML BOTTLE TP SCH ×2 (07:16→21:36)
[2018-10-11 07:26] VITALS: BP 98/55
[2018-10-11] MEDS: INSULIN DETEMIR 100 UNIT/ML CARTRIDGE SQ SCH ×2 (09:00→21:36)
[2018-10-11] MEDS: Z GUARD REMEDY 4 OZ OINT TP SCH ×4 (09:00→21:36)
[2018-10-11] MEDS: Z GUARD REMEDY 2 OZ OINT TP SCH ×2 (09:00→21:36)
[2018-10-11] MEDS: APIXABAN 2.5 MG TABLET GT SCH ×2 (09:00→21:33)
[2018-10-11] MEDS: MULTIVIT W/MINERALS 1 TAB TABLET GT SCH (09:00)
[2018-10-11] MEDS: NYSTATIN/TRIAMCIN 15 GM CREAM 15 GM TUBE TP SCH ×2 (09:00→21:36)
[2018-10-11] MEDS: ACIDOPHILUS/BULGARICUS 1 EACH TAB.CHEW GT SCH ×2 (09:00→21:33)
[2018-10-11] MEDS: METOPROLOL TARTRATE 25 MG TABLET GT SCH ×2 (09:00→21:34)
[2018-10-11] MEDS: NEOMY SULF/BACITRAC ZN/POLY 15 GM TUBE TP SCH ×2 (09:00→21:36)
[2018-10-11] MEDS: DOCUSATE SODIUM LIQ 100 MG/10 ML UDC GT SCH (09:00)
[2018-10-11] MEDS: VITS A AND D/WHITE PET/LANOLIN 5 GM PACKET TP SCH ×2 (09:00→21:36)
[2018-10-11 12:49] VITALS: BP 146/68
--- NOTE | 2018-10-11 15:58 | NUR ---
RT NOTE: RECEIVED PT ON NOTED ORDERED VENT SETTINGS. NO RESPIRATORY DISTRESS NOTED. TRACH CHECKED SECURE AND PATENT. SXD AND LAVAGED PT Q ROUND AND NEEDED. TXS GIVEN ORDERED WITH NO ADVERSE REACTIONS NOTED. TRACH CARE DONE. SPARE TRACH AND AMBU BAG @ BEDSIDE. ALARMS CHECKED ON AND AUDIBLE.
[2018-10-11] MEDS: MAGNESIUM HYDROXIDE 30 ML UDC GT PRN (17:51)
[2018-10-11] MEDS: NEPRO 1,000 ML BOTTLE GT PRN (17:51)
[2018-10-11 18:55] VITALS: BP 124/60
[2018-10-11 20:26] VITALS: BP 120/57
[2018-10-11] MEDS ORDERED: POLYETHYLENE GLYCOL 3350 17 GM POWD.PACK GT ONE (21:00)
[2018-10-11] MEDS ORDERED: BISACODYL SUPP (10 MG) 10 MG/SUPP.RECT SUPP.RECT RC ONE (21:00)
[2018-10-11] MEDS: SENNOSIDES 8.6 MG TABLET GT SCH (21:36)
[2018-10-12] VITALS: BP 129/69
[2018-10-12] MEDS: METOCLOPRAMIDE HCL 10 MG TABLET GT SCH ×5 (00:12→23:09)
[2018-10-12] MEDS: BLOOD SUGAR DIAGNOSTIC 1 EACH STRIP IN SCH ×5 (00:12→23:09)
[2018-10-12] MEDS: INSULIN REGULAR, HUMAN 100 UNIT/ML 3 ML VIAL SQ PRN ×4 (00:13→23:10)
[2018-10-12] MEDS: IPRATROPIUM NEB FS 0.5 MG/2.5 ML AMPUL.NEB NEB SCH ×4 (01:28→19:03)
[2018-10-12 06:00] VITALS: BP 107/60
[2018-10-12 07:45] VITALS: BP 111/56
[2018-10-12] MEDS: HYDROGEN PEROXIDE 480 ML BOTTLE TP SCH ×2 (09:00→21:22)
[2018-10-12] MEDS: METOPROLOL TARTRATE 25 MG TABLET GT SCH ×2 (09:22→21:22)
[2018-10-12] MEDS: ACIDOPHILUS/BULGARICUS 1 EACH TAB.CHEW GT SCH ×2 (09:22→21:21)
[2018-10-12] MEDS: DOCUSATE SODIUM LIQ 100 MG/10 ML UDC GT SCH (09:22)
[2018-10-12] MEDS: APIXABAN 2.5 MG TABLET GT SCH ×2 (09:22→21:21)
[2018-10-12] MEDS: MULTIVIT W/MINERALS 1 TAB TABLET GT SCH (09:22)
[2018-10-12] MEDS: INSULIN DETEMIR 100 UNIT/ML CARTRIDGE SQ SCH ×2 (09:23→21:22)
[2018-10-12] MEDS: Z GUARD REMEDY 4 OZ OINT TP SCH ×4 (09:24→21:23)
[2018-10-12] MEDS: NYSTATIN/TRIAMCIN 15 GM CREAM 15 GM TUBE TP SCH ×2 (09:24→21:22)
[2018-10-12] MEDS: VITS A AND D/WHITE PET/LANOLIN 5 GM PACKET TP SCH ×2 (09:24→21:23)
[2018-10-12] MEDS: NEOMY SULF/BACITRAC ZN/POLY 15 GM TUBE TP SCH ×2 (09:24→21:23)
[2018-10-12] MEDS: Z GUARD REMEDY 2 OZ OINT TP SCH ×2 (09:24→21:23)
--- NOTE | 2018-10-12 12:22 | NUR ---
RT NOTE RECEIVED PT MECHANICALLY VENTILATED VIA CUFFED TRACHEOSTOMY TUBE. CUFF INFLATED. TRACH TUBE MIDLINE AND SECURE. VENTILATOR SETTINGS PRESCRIBED. ALARMS SET PER PROTOCOL AND AUDIBLE. VENT PLUGGED IN TO RED OUTLET. AMBU BAG AND BACK UP TRACH AT BED SIDE. NO DISTRESS NOTED. Addendum: 10/12/18 at 1224 by JYOTHI RICHARDS RT Amended: Links added.
[2018-10-12 13:13] VITALS: BP 115/70
[2018-10-12 18:27] VITALS: BP 128/65
[2018-10-12 20:01] VITALS: BP 128/49
[2018-10-12] MEDS: SENNOSIDES 8.6 MG TABLET GT SCH (21:23)
[2018-10-13] MEDS: IPRATROPIUM NEB FS 0.5 MG/2.5 ML AMPUL.NEB NEB SCH ×4 (00:58→19:31)
[2018-10-13 03:06] VITALS: BP 136/62
[2018-10-13] MEDS: BLOOD SUGAR DIAGNOSTIC 1 EACH STRIP IN SCH ×4 (05:25→23:40)
[2018-10-13] MEDS: METOCLOPRAMIDE HCL 10 MG TABLET GT SCH ×4 (05:25→23:40)
[2018-10-13 06:31] VITALS: BP 133/60
[2018-10-13 08:02] VITALS: BP 123/44
[2018-10-13] MEDS: DOCUSATE SODIUM LIQ 100 MG/10 ML UDC GT SCH (08:38)
[2018-10-13] MEDS: ACIDOPHILUS/BULGARICUS 1 EACH TAB.CHEW GT SCH ×2 (08:39→21:37)
[2018-10-13] MEDS: METOPROLOL TARTRATE 25 MG TABLET GT SCH ×2 (08:40→21:37)
[2018-10-13] MEDS: MULTIVIT W/MINERALS 1 TAB TABLET GT SCH (08:40)
[2018-10-13] MEDS: APIXABAN 2.5 MG TABLET GT SCH ×2 (09:00→21:37)
[2018-10-13] MEDS: NEOMY SULF/BACITRAC ZN/POLY 15 GM TUBE TP SCH ×2 (09:00→21:38)
[2018-10-13] MEDS: HYDROGEN PEROXIDE 480 ML BOTTLE TP SCH ×2 (09:00→21:38)
[2018-10-13] MEDS: NYSTATIN/TRIAMCIN 15 GM CREAM 15 GM TUBE TP SCH ×2 (09:00→21:38)
[2018-10-13] MEDS: Z GUARD REMEDY 2 OZ OINT TP SCH ×2 (09:00→21:38)
[2018-10-13] MEDS: Z GUARD REMEDY 4 OZ OINT TP SCH ×4 (09:00→21:39)
[2018-10-13] MEDS: VITS A AND D/WHITE PET/LANOLIN 5 GM PACKET TP SCH ×2 (09:00→21:39)
[2018-10-13] MEDS: INSULIN DETEMIR 100 UNIT/ML CARTRIDGE SQ SCH ×2 (09:01→21:38)
[2018-10-13 12:00] VITALS: BP 151/70
[2018-10-13] MEDS: INSULIN REGULAR, HUMAN 100 UNIT/ML 3 ML VIAL SQ PRN ×3 (12:12→23:41)
[2018-10-13 18:26] VITALS: BP 150/78
[2018-10-13 19:38] VITALS: BP 136/54
[2018-10-13] MEDS: SENNOSIDES 8.6 MG TABLET GT SCH (21:39)
[2018-10-14] MEDS: IPRATROPIUM NEB FS 0.5 MG/2.5 ML AMPUL.NEB NEB SCH ×4 (01:24→20:07)
[2018-10-14 03:26] VITALS: BP 132/70
[2018-10-14] MEDS: BLOOD SUGAR DIAGNOSTIC 1 EACH STRIP IN SCH ×4 (05:36→23:06)
[2018-10-14] MEDS: INSULIN REGULAR, HUMAN 100 UNIT/ML 3 ML VIAL SQ PRN ×4 (05:36→23:07)
[2018-10-14] MEDS: METOCLOPRAMIDE HCL 10 MG TABLET GT SCH ×4 (05:36→23:06)
[2018-10-14 06:31] VITALS: BP 138/72
[2018-10-14 07:19] LABS: BASOPHILS # (AUTO) 0.1 /CMM (0.0-0.2); BASOPHILS % (AUTO) 0.6 % (0.0-2.0); EOSINOPHILS % (AUTO) 3.6 % (0.0-6.0); HEMATOCRIT 32 % (33-45); LYMPHOCYTES # (AUTO) 1.7 /CMM (0.8-4.8); LYMPHOCYTES % (AUTO) 15.4 % (20.0-44.0); MEAN CORPUSCULAR HGB CONC 32 g/dl (31.0-36.0); MEAN CORPUSCULAR VOLUME 79 fL (82-100); MONOCYTES # (AUTO) 0.9 /CMM (0.1-1.30); MONOCYTES % (AUTO) 7.9 % (2.0-12.0); NEUTROPHILS % (AUTO) 72.5 % (43.0-81.0); PLATELET COUNT (AUTO) 345 /CMM (150-450); WHITE BLOOD COUNT (AUTO) 11.1 K/uL (4.3-11.0)
[2018-10-14 07:46] LABS: ALANINE AMINOTRANSFERASE 25 U/L (12-78); ALBUMIN 2.8 g/dL (3.4-5.0); ALKALINE PHOSPHATASE 151 U/L (46-116); ASPARTATE AMINOTRANSFERASE 29 U/L (15-37); BILIRUBIN,TOTAL 0.3 mg/dL (0.2-1.0); CALCIUM, SERUM 9.3 mg/dL (8.5-10.1); CARBON DIOXIDE 29 mmol/L (21-32); CHLORIDE 98 mmol/L (98-107); CREATININE 2.9 mg/dL (0.6-1.3); GLUCOSE 136 mg/dL (74-106); MAGNESIUM 3.9 mg/dL (1.8-2.4); PHOSPHORUS 3.7 mg/dL (2.5-4.9); POTASSIUM 3.2 mmol/L (3.5-5.1); SODIUM SERUM 137 mmol/L (136-145); TOTAL PROTEIN, SERUM 8.7 g/dL (6.4-8.2); UREA NITROGEN, BLOOD 78 mg/dL (7-18)
[2018-10-14 08:24] VITALS: BP 151/86
[2018-10-14] MEDS: NYSTATIN/TRIAMCIN 15 GM CREAM 15 GM TUBE TP SCH ×2 (09:00→21:12)
[2018-10-14] MEDS: VITS A AND D/WHITE PET/LANOLIN 5 GM PACKET TP SCH ×2 (09:00→21:12)
[2018-10-14] MEDS: HYDROGEN PEROXIDE 480 ML BOTTLE TP SCH ×2 (09:00→20:08)
[2018-10-14] MEDS: ACIDOPHILUS/BULGARICUS 1 EACH TAB.CHEW GT SCH ×2 (09:00→21:10)
[2018-10-14] MEDS: METOPROLOL TARTRATE 25 MG TABLET GT SCH ×2 (09:00→21:11)
[2018-10-14] MEDS: Z GUARD REMEDY 4 OZ OINT TP SCH ×4 (09:00→21:12)
[2018-10-14] MEDS: DOCUSATE SODIUM LIQ 100 MG/10 ML UDC GT SCH (09:00)
[2018-10-14] MEDS: Z GUARD REMEDY 2 OZ OINT TP SCH ×2 (09:00→21:12)
[2018-10-14] MEDS: INSULIN DETEMIR 100 UNIT/ML CARTRIDGE SQ SCH ×2 (09:00→21:11)
[2018-10-14] MEDS: NEOMY SULF/BACITRAC ZN/POLY 15 GM TUBE TP SCH ×2 (09:00→21:12)
[2018-10-14] MEDS: MULTIVIT W/MINERALS 1 TAB TABLET GT SCH (09:00)
[2018-10-14] MEDS: APIXABAN 2.5 MG TABLET GT SCH ×2 (09:00→21:10)
--- NOTE | 2018-10-14 10:50 | NUR ---
Seen by Dr Agarwal. He is aware of pt's lab results. He ordered to give Potassium Chloride 40 mEq GT x 1 for hypokalemia, BMP on 10/16/18.
[2018-10-14 12:00] VITALS: BP 139/78
[2018-10-14] MEDS ORDERED: POTASSIUM CHLORIDE 20 MEQ POWDER PACKET GT ONE (12:00)
[2018-10-14] MEDS: NEPRO 1,000 ML BOTTLE GT PRN (12:16)
--- NOTE | 2018-10-14 12:20 | NUR ---
Received order to give Neutraphos 2 packets GT x 1 for hypophosphatemia. Addendum: 10/16/18 at 0837 by MARCELLA MITCHELL RN ERROR IN CHARTING
[2018-10-14 18:25] VITALS: BP 149/65
[2018-10-14 20:45] VITALS: BP 113/46
[2018-10-14] MEDS: SENNOSIDES 8.6 MG TABLET GT SCH (21:12)
[2018-10-15] VITALS (8 sets, daily range): BP systolic 89–142; BP diastolic 50–71
[2018-10-15] MEDS: IPRATROPIUM NEB FS 0.5 MG/2.5 ML AMPUL.NEB NEB SCH ×4 (02:17→20:07)
[2018-10-15] MEDS: BLOOD SUGAR DIAGNOSTIC 1 EACH STRIP IN SCH ×3 (05:27→17:30)
[2018-10-15] MEDS: METOCLOPRAMIDE HCL 10 MG TABLET GT SCH ×3 (05:27→17:30)
[2018-10-15] MEDS: INSULIN REGULAR, HUMAN 100 UNIT/ML 3 ML VIAL SQ PRN ×3 (05:28→17:52)
[2018-10-15] MEDS: INSULIN DETEMIR 100 UNIT/ML CARTRIDGE SQ SCH ×2 (09:00→21:37)
[2018-10-15] MEDS: METOPROLOL TARTRATE 25 MG TABLET GT SCH ×2 (09:00→21:23)
[2018-10-15] MEDS: DOCUSATE SODIUM LIQ 100 MG/10 ML UDC GT SCH (09:47)
[2018-10-15] MEDS: APIXABAN 2.5 MG TABLET GT SCH ×2 (09:48→21:24)
[2018-10-15] MEDS: ACIDOPHILUS/BULGARICUS 1 EACH TAB.CHEW GT SCH ×2 (09:48→21:27)
[2018-10-15] MEDS: NYSTATIN/TRIAMCIN 15 GM CREAM 15 GM TUBE TP SCH ×2 (09:49→21:26)
[2018-10-15] MEDS: MULTIVIT W/MINERALS 1 TAB TABLET GT SCH (09:49)
[2018-10-15] MEDS: NEOMY SULF/BACITRAC ZN/POLY 15 GM TUBE TP SCH ×2 (09:49→21:27)
[2018-10-15] MEDS: Z GUARD REMEDY 2 OZ OINT TP SCH ×2 (09:49→21:26)
[2018-10-15] MEDS: VITS A AND D/WHITE PET/LANOLIN 5 GM PACKET TP SCH ×2 (09:50→21:27)
[2018-10-15] MEDS: Z GUARD REMEDY 4 OZ OINT TP SCH ×4 (09:50→21:27)
[2018-10-15] MEDS: NEPRO 1,000 ML BOTTLE GT PRN (17:27)
[2018-10-15] MEDS: HYDROGEN PEROXIDE 480 ML BOTTLE TP SCH (20:07)
[2018-10-15] MEDS: SENNOSIDES 8.6 MG TABLET GT SCH (21:30)
--- NOTE | 2018-10-15 21:40 | NUR ---
floor installer notes levemir 8 units yasmin SQ as ordered, blood sugar 187. no signs of hyper glycemia noted. will continue monitoring.
[2018-10-16 00:19] VITALS: BP 133/52
--- NOTE | 2018-10-16 00:30 | NUR ---
all source intelligence analyst notes blood sugar checked done 203, units of insulin given yasmin SQ as ordered.
[2018-10-16] MEDS: METOCLOPRAMIDE HCL 10 MG TABLET GT SCH ×4 (00:32→17:21)
[2018-10-16] MEDS: BLOOD SUGAR DIAGNOSTIC 1 EACH STRIP IN SCH ×4 (00:32→17:21)
[2018-10-16] MEDS: INSULIN REGULAR, HUMAN 100 UNIT/ML 3 ML VIAL SQ PRN ×3 (00:38→17:21)
[2018-10-16] MEDS: IPRATROPIUM NEB FS 0.5 MG/2.5 ML AMPUL.NEB NEB SCH ×4 (01:15→19:08)
[2018-10-16 06:08] VITALS: BP 115/51
--- NOTE | 2018-10-16 06:41 | NUR ---
PHYSICIAN ASSISTANT PSYCHIATRY NOTES' ROUTINE MED GIVEN SONU G-TUBE AND BLOOD SUGAR CHECKED DONE WELL, 165, 3 UNITS OF INSULIN GIVEN ORDERED. MORNING CARE DONE. STABLE SONU THE NIGHT . KEPT HER WARM AND COMFORTABLE AT ALL TIMES.
[2018-10-16 07:09] LABS: CALCIUM, SERUM 9.1 mg/dL (8.5-10.1); CARBON DIOXIDE 29 mmol/L (21-32); CHLORIDE 98 mmol/L (98-107); CREATININE 3.1 mg/dL (0.6-1.3); GLUCOSE 182 mg/dL (74-106); POTASSIUM 3.6 mmol/L (3.5-5.1); SODIUM SERUM 135 mmol/L (136-145)
[2018-10-16 07:13] LABS: UREA NITROGEN, BLOOD 89 mg/dL (7-18)
[2018-10-16 08:07] VITALS: BP 123/64
[2018-10-16] MEDS: NEOMY SULF/BACITRAC ZN/POLY 15 GM TUBE TP SCH ×2 (09:00→21:24)
[2018-10-16] MEDS: NYSTATIN/TRIAMCIN 15 GM CREAM 15 GM TUBE TP SCH ×2 (09:00→21:24)
[2018-10-16] MEDS: Z GUARD REMEDY 2 OZ OINT TP SCH ×2 (09:00→21:25)
[2018-10-16] MEDS: DOCUSATE SODIUM LIQ 100 MG/10 ML UDC GT SCH (09:00)
[2018-10-16] MEDS: Z GUARD REMEDY 4 OZ OINT TP SCH ×4 (09:00→21:25)
[2018-10-16] MEDS: HYDROGEN PEROXIDE 480 ML BOTTLE TP SCH ×2 (09:00→21:24)
[2018-10-16] MEDS: APIXABAN 2.5 MG TABLET GT SCH ×2 (09:00→21:23)
[2018-10-16] MEDS: METOPROLOL TARTRATE 25 MG TABLET GT SCH ×2 (09:00→21:24)
[2018-10-16] MEDS: MULTIVIT W/MINERALS 1 TAB TABLET GT SCH (09:00)
[2018-10-16] MEDS: VITS A AND D/WHITE PET/LANOLIN 5 GM PACKET TP SCH ×2 (09:00→21:25)
[2018-10-16] MEDS: INSULIN DETEMIR 100 UNIT/ML CARTRIDGE SQ SCH ×2 (09:00→21:24)
[2018-10-16] MEDS: ACIDOPHILUS/BULGARICUS 1 EACH TAB.CHEW GT SCH ×2 (09:00→21:23)
[2018-10-16 12:00] VITALS: BP 156/79
[2018-10-16] MEDS: CLONIDINE HCL 0.1 MG TABLET GT PRN (13:04)
[2018-10-16 14:00] VITALS: BP 118/60
[2018-10-16] MEDS: MAGNESIUM HYDROXIDE 30 ML UDC GT PRN (18:30)
[2018-10-16 18:59] VITALS: BP 91/47
[2018-10-16] MEDS: SENNOSIDES 8.6 MG TABLET GT SCH (21:25)
[2018-10-17] VITALS (7 sets, daily range): BP systolic 91–125; BP diastolic 43–70
[2018-10-17] MEDS: METOCLOPRAMIDE HCL 10 MG TABLET GT SCH ×4 (00:12→17:16)
[2018-10-17] MEDS: BLOOD SUGAR DIAGNOSTIC 1 EACH STRIP IN SCH ×4 (00:12→17:16)
[2018-10-17] MEDS: INSULIN REGULAR, HUMAN 100 UNIT/ML 3 ML VIAL SQ PRN ×4 (00:13→17:15)
[2018-10-17] MEDS: NEPRO 1,000 ML BOTTLE GT PRN (00:13)
[2018-10-17] MEDS: IPRATROPIUM NEB FS 0.5 MG/2.5 ML AMPUL.NEB NEB SCH ×4 (00:39→19:39)
[2018-10-17] MEDS: METOPROLOL TARTRATE 25 MG TABLET GT SCH ×2 (09:00→20:26)
[2018-10-17] MEDS: NEOMY SULF/BACITRAC ZN/POLY 15 GM TUBE TP SCH ×2 (09:00→20:28)
[2018-10-17] MEDS: APIXABAN 2.5 MG TABLET GT SCH ×2 (09:00→20:26)
[2018-10-17] MEDS: ACIDOPHILUS/BULGARICUS 1 EACH TAB.CHEW GT SCH ×2 (09:00→20:26)
[2018-10-17] MEDS: MULTIVIT W/MINERALS 1 TAB TABLET GT SCH (09:00)
[2018-10-17] MEDS: DOCUSATE SODIUM LIQ 100 MG/10 ML UDC GT SCH (09:00)
[2018-10-17] MEDS: NYSTATIN/TRIAMCIN 15 GM CREAM 15 GM TUBE TP SCH ×2 (09:00→20:28)
[2018-10-17] MEDS: Z GUARD REMEDY 4 OZ OINT TP SCH ×4 (09:00→20:29)
[2018-10-17] MEDS: INSULIN DETEMIR 100 UNIT/ML CARTRIDGE SQ SCH ×2 (09:00→20:50)
[2018-10-17] MEDS: VITS A AND D/WHITE PET/LANOLIN 5 GM PACKET TP SCH ×2 (09:00→20:29)
[2018-10-17] MEDS: Z GUARD REMEDY 2 OZ OINT TP SCH ×2 (09:00→20:29)
[2018-10-17] MEDS: HYDROGEN PEROXIDE 480 ML BOTTLE TP SCH ×2 (09:00→20:28)
--- NOTE | 2018-10-17 14:10 | NUR ---
Dr. Dudley, manager corporate trim patient's toenails, he said there is a slight bleeding in the R and L great toe with order to apply Betadine QS x 2 days. Order carried out.
--- NOTE | 2018-10-17 16:22 | NUR ---
Seen ans examined by Donny Hoover NP for Dr. Aguirre. Asked if isolation can be d'amando and patient's source of infection is GT site. AVERY Hoover assessed GT site, she said that although there is no signs of infection but she noted to have small amount of drainage coming out from the stoma. AVERY Hoover ordered CBC and BMP for Saturday. Left a message to resident's daughter regarding above and new orders.
[2018-10-17] MEDS: MAGNESIUM HYDROXIDE 30 ML UDC GT PRN (18:47)
[2018-10-17] MEDS: POVIDONE-IODINE OINT 28.4 GM TUBE TP SCH (20:28)
--- NOTE | 2018-10-17 20:34 | NUR ---
RT NOTE PATIENT RECEIVED TRACHED ON MECHANICAL VENTILATION. AMBU BAG/BACK UP TRACH @ BEDSIDE. TX GIVEN, NO ADVERSE REACTIONS NOTED. SX DONE, TRACH SECURED AND PATENT. ALARMS ON AND AUDIBLE. PATIENT STABLE, WILL CONTINUE TO MONITOR. CONT. POX. @ BEDSIDE. Addendum: 10/17/18 at 2034 by MANOLO MCDONNELL RT Amended: Links added.
[2018-10-17] MEDS: SENNOSIDES 8.6 MG TABLET GT SCH (21:16)
[2018-10-18] VITALS: BP 123/71
[2018-10-18] MEDS: BLOOD SUGAR DIAGNOSTIC 1 EACH STRIP IN SCH ×4 (00:15→17:43)
[2018-10-18] MEDS: METOCLOPRAMIDE HCL 10 MG TABLET GT SCH ×4 (00:15→17:43)
[2018-10-18] MEDS: INSULIN REGULAR, HUMAN 100 UNIT/ML 3 ML VIAL SQ PRN ×3 (00:15→17:44)
[2018-10-18] MEDS: IPRATROPIUM NEB FS 0.5 MG/2.5 ML AMPUL.NEB NEB SCH ×4 (01:35→19:37)
[2018-10-18] MEDS: NEPRO 1,000 ML BOTTLE GT PRN (05:26)
[2018-10-18 06:09] VITALS: BP 126/65
[2018-10-18] MEDS: BISACODYL SUPP (10 MG) 10 MG/SUPP.RECT SUPP.RECT RC PRN (06:24)
[2018-10-18 07:37] VITALS: BP 128/75
[2018-10-18] MEDS: DOCUSATE SODIUM LIQ 100 MG/10 ML UDC GT SCH (09:00)
[2018-10-18] MEDS: Z GUARD REMEDY 4 OZ OINT TP SCH ×4 (09:00→21:00)
[2018-10-18] MEDS: APIXABAN 2.5 MG TABLET GT SCH ×2 (09:00→21:16)
[2018-10-18] MEDS: POVIDONE-IODINE OINT 28.4 GM TUBE TP SCH ×2 (09:00→21:00)
[2018-10-18] MEDS: ACIDOPHILUS/BULGARICUS 1 EACH TAB.CHEW GT SCH ×2 (09:00→21:16)
[2018-10-18] MEDS: MULTIVIT W/MINERALS 1 TAB TABLET GT SCH (09:00)
[2018-10-18] MEDS: NEOMY SULF/BACITRAC ZN/POLY 15 GM TUBE TP SCH ×2 (09:00→21:00)
[2018-10-18] MEDS: Z GUARD REMEDY 2 OZ OINT TP SCH ×2 (09:00→21:00)
[2018-10-18] MEDS: INSULIN DETEMIR 100 UNIT/ML CARTRIDGE SQ SCH ×2 (09:00→21:22)
[2018-10-18] MEDS: NYSTATIN/TRIAMCIN 15 GM CREAM 15 GM TUBE TP SCH ×2 (09:00→21:00)
[2018-10-18] MEDS: VITS A AND D/WHITE PET/LANOLIN 5 GM PACKET TP SCH ×2 (09:00→21:00)
[2018-10-18] MEDS: METOPROLOL TARTRATE 25 MG TABLET GT SCH ×2 (09:00→21:17)
[2018-10-18] MEDS: HYDROGEN PEROXIDE 480 ML BOTTLE TP SCH ×2 (10:40→21:25)
[2018-10-18 12:00] VITALS: BP 144/71
[2018-10-18 18:33] VITALS: BP 142/70
[2018-10-18 20:46] VITALS: BP 145/57
[2018-10-18] MEDS: SENNOSIDES 8.6 MG TABLET GT SCH (21:24)
[2018-10-19] VITALS: BP 142/58
[2018-10-19] MEDS: BLOOD SUGAR DIAGNOSTIC 1 EACH STRIP IN SCH ×4 (00:14→17:54)
[2018-10-19] MEDS: INSULIN REGULAR, HUMAN 100 UNIT/ML 3 ML VIAL SQ PRN ×4 (00:15→17:55)
[2018-10-19] MEDS: METOCLOPRAMIDE HCL 10 MG TABLET GT SCH ×4 (00:18→17:54)
[2018-10-19] MEDS: IPRATROPIUM NEB FS 0.5 MG/2.5 ML AMPUL.NEB NEB SCH ×4 (01:42→19:34)
--- NOTE | 2018-10-19 02:53 | NUR ---
RT NOTES TRACH TUBE IN PLACE, PATENT, AND SECURED WITH TRACH TIE. ALARMS ON AND AUDIBLE. VENT PLUGGED IN TO RED OUTLET. BACK UP TRACH AND AMBU BAG BY THE BEDSIDE. NO SIGNS OF ANY DISTRESS. Addendum: 10/19/18 at 0254 by ANDRES MARINO RT Amended: Links added.
[2018-10-19 06:15] VITALS: BP 127/56
[2018-10-19 07:43] VITALS: BP 104/52
[2018-10-19] MEDS: APIXABAN 2.5 MG TABLET GT SCH ×2 (09:39→20:42)
[2018-10-19] MEDS: DOCUSATE SODIUM LIQ 100 MG/10 ML UDC GT SCH (09:39)
[2018-10-19] MEDS: ACIDOPHILUS/BULGARICUS 1 EACH TAB.CHEW GT SCH ×2 (09:40→20:43)
[2018-10-19] MEDS: METOPROLOL TARTRATE 25 MG TABLET GT SCH ×2 (09:40→20:43)
[2018-10-19] MEDS: MULTIVIT W/MINERALS 1 TAB TABLET GT SCH (09:41)
[2018-10-19] MEDS: INSULIN DETEMIR 100 UNIT/ML CARTRIDGE SQ SCH ×2 (09:41→20:44)
[2018-10-19] MEDS: POVIDONE-IODINE OINT 28.4 GM TUBE TP SCH (09:43)
[2018-10-19] MEDS: Z GUARD REMEDY 2 OZ OINT TP SCH ×2 (09:43→20:46)
[2018-10-19] MEDS: NEOMY SULF/BACITRAC ZN/POLY 15 GM TUBE TP SCH ×2 (09:43→20:46)
[2018-10-19] MEDS: NYSTATIN/TRIAMCIN 15 GM CREAM 15 GM TUBE TP SCH ×2 (09:43→20:46)
[2018-10-19] MEDS: VITS A AND D/WHITE PET/LANOLIN 5 GM PACKET TP SCH ×2 (09:44→20:47)
[2018-10-19] MEDS: Z GUARD REMEDY 4 OZ OINT TP SCH ×4 (09:44→20:47)
--- NOTE | 2018-10-19 10:30 | NUR ---
Seen and examined by PHYSICAL SCIENCE TEACHER Carole Dodd, no new order given.
--- NOTE | 2018-10-19 13:00 | NUR ---
Seen and examined by Dr. Patrick, no new order given.
[2018-10-19] MEDS: NEPRO 1,000 ML BOTTLE GT PRN (15:06)
[2018-10-19 15:30] VITALS: BP 115/60
[2018-10-19 18:04] VITALS: BP 128/68
[2018-10-19 20:09] VITALS: BP 125/68
[2018-10-19] MEDS: SENNOSIDES 8.6 MG TABLET GT SCH (20:47)
[2018-10-19] MEDS: HYDROGEN PEROXIDE 480 ML BOTTLE TP SCH (21:53)
[2018-10-20 00:39] VITALS: BP 122/63
[2018-10-20] MEDS: METOCLOPRAMIDE HCL 10 MG TABLET GT SCH ×5 (00:48→23:03)
[2018-10-20] MEDS: BLOOD SUGAR DIAGNOSTIC 1 EACH STRIP IN SCH ×5 (00:48→23:03)
[2018-10-20] MEDS: IPRATROPIUM NEB FS 0.5 MG/2.5 ML AMPUL.NEB NEB SCH ×4 (01:20→20:12)
--- NOTE | 2018-10-20 02:03 | NUR ---
RT NOTES TRACH TUBE IN PLACE, PATENT, AND SECURED WITH TRACH TIE. ALARMS ON AND AUDIBLE. VENT PLUGGED IN TO RED OUTLET. BACK UP TRACH AND AMBU BAG BY THE BEDSIDE. NO SIGNS OF ANY DISTRESS. WILL CONTINUE TO MONITOR. Addendum: 10/20/18 at 0203 by ANDRES MARINO RT Amended: Links added.
[2018-10-20] MEDS: INSULIN REGULAR, HUMAN 100 UNIT/ML 3 ML VIAL SQ PRN ×4 (05:27→23:04)
[2018-10-20 06:18] VITALS: BP 145/44
[2018-10-20 06:28] LABS: BASOPHILS # (AUTO) 0.1 /CMM (0.0-0.2); BASOPHILS % (AUTO) 0.6 % (0.0-2.0); EOSINOPHILS % (AUTO) 3.5 % (0.0-6.0); HEMATOCRIT 29 % (33-45); HEMOGLOBIN 9.3 g/dL (11.5-14.8); LYMPHOCYTES # (AUTO) 1.8 /CMM (0.8-4.8); LYMPHOCYTES % (AUTO) 20.1 % (20.0-44.0); MEAN CORPUSCULAR HGB CONC 32 g/dl (31.0-36.0); MEAN CORPUSCULAR VOLUME 80 fL (82-100); MONOCYTES # (AUTO) 0.8 /CMM (0.1-1.30); MONOCYTES % (AUTO) 8.3 % (2.0-12.0); NEUTROPHILS # (AUTO) 6.1 /CMM (1.8-8.9); NEUTROPHILS % (AUTO) 67.5 % (43.0-81.0); PLATELET COUNT (AUTO) 241 /CMM (150-450); RED BLOOD CELL COUNT(AUTO) 3.64 MIL/uL (4.0-5.2)
[2018-10-20 06:48] LABS: CALCIUM, SERUM 8.4 mg/dL (8.5-10.1); CARBON DIOXIDE 29 mmol/L (21-32); CHLORIDE 95 mmol/L (98-107); GLUCOSE 147 mg/dL (74-106); POTASSIUM 3.5 mmol/L (3.5-5.1); SODIUM SERUM 132 mmol/L (136-145)
[2018-10-20 06:49] LABS: UREA NITROGEN, BLOOD 95 mg/dL (7-18)
[2018-10-20 08:00] VITALS: BP 101/42
[2018-10-20] MEDS: DOCUSATE SODIUM LIQ 100 MG/10 ML UDC GT SCH (08:51)
[2018-10-20] MEDS: APIXABAN 2.5 MG TABLET GT SCH ×2 (08:51→21:10)
[2018-10-20] MEDS: ACIDOPHILUS/BULGARICUS 1 EACH TAB.CHEW GT SCH ×2 (08:53→21:10)
[2018-10-20] MEDS: METOPROLOL TARTRATE 25 MG TABLET GT SCH ×2 (08:53→21:10)
[2018-10-20] MEDS: MULTIVIT W/MINERALS 1 TAB TABLET GT SCH (08:54)
[2018-10-20] MEDS: VITS A AND D/WHITE PET/LANOLIN 5 GM PACKET TP SCH ×2 (09:00→21:12)
[2018-10-20] MEDS: Z GUARD REMEDY 2 OZ OINT TP SCH ×2 (09:00→21:11)
[2018-10-20] MEDS: Z GUARD REMEDY 4 OZ OINT TP SCH ×4 (09:00→21:11)
[2018-10-20] MEDS: HYDROGEN PEROXIDE 480 ML BOTTLE TP SCH ×2 (09:00→21:11)
[2018-10-20] MEDS: NYSTATIN/TRIAMCIN 15 GM CREAM 15 GM TUBE TP SCH ×2 (09:00→21:11)
[2018-10-20] MEDS: NEOMY SULF/BACITRAC ZN/POLY 15 GM TUBE TP SCH ×2 (09:00→21:11)
[2018-10-20] MEDS: INSULIN DETEMIR 100 UNIT/ML CARTRIDGE SQ SCH ×2 (09:16→21:11)
--- NOTE | 2018-10-20 11:21 | NUR ---
Referred BMP result to Dr. Power Felton, BUN 95, Creat 3.0, Na 132. Dr. Felton said he [facility].
[2018-10-20 12:00] VITALS: BP 124/59
[2018-10-20] MEDS: IV D5/ 0.9% NACL 1,000 ML IV PRN (13:04)
--- NOTE | 2018-10-20 13:20 | NUR ---
Noted an electronic order from Dr. Felton to start patient with IVF D5NS at 100cc/hr x 2 L and repeat labs in AM. Dr. Patrick informed. Notified resident's daughter Jennifer of new order, appreciated the call.
[2018-10-20] MEDS ORDERED: IV D5/ 0.9% NACL 1,000 ML IV PRN (14:00)
[2018-10-20] MEDS: NEPRO 1,000 ML BOTTLE GT PRN (17:36)
--- NOTE | 2018-10-20 17:52 | NUR ---
RT NOTE PT REMAINS MECHANICALLY VENTILATED VIA CUFFED TRACHEOSTOMY TUBE. CUFF INFLATED. TRACH TUBE MIDLINE AND SECURE. VENTILATOR SETTINGS PRESCRIBED. ALARMS SET PER PROTOCOL AND AUDIBLE. VENT PLUGGED IN TO RED OUTLET. AMBU BAG AT BED SIDE. NO DISTRESS NOTED AT MOMENT. Addendum: 10/20/18 at 1753 by JYOTHI RICHARDS RT Amended: Links added.
[2018-10-20 18:00] VITALS: BP 157/70
[2018-10-20 20:05] VITALS: BP 129/69
[2018-10-20] MEDS: SENNOSIDES 8.6 MG TABLET GT SCH (21:12)
[2018-10-21] MEDS: IPRATROPIUM NEB FS 0.5 MG/2.5 ML AMPUL.NEB NEB SCH ×4 (01:59→19:29)
[2018-10-21 03:07] VITALS: BP 148/68
[2018-10-21] MEDS: BLOOD SUGAR DIAGNOSTIC 1 EACH STRIP IN SCH ×3 (05:54→18:26)
[2018-10-21] MEDS: METOCLOPRAMIDE HCL 10 MG TABLET GT SCH ×3 (05:54→18:26)
[2018-10-21 06:17] VITALS: BP 138/62
[2018-10-21 07:16] LABS: BASOPHILS % (AUTO) 0.4 % (0.0-2.0); EOSINOPHILS % (AUTO) 3.4 % (0.0-6.0); HEMATOCRIT 31 % (33-45); HEMOGLOBIN 9.8 g/dL (11.5-14.8); LYMPHOCYTES # (AUTO) 1.5 /CMM (0.8-4.8); LYMPHOCYTES % (AUTO) 14.1 % (20.0-44.0); MEAN CORPUSCULAR HGB CONC 31 g/dl (31.0-36.0); MEAN CORPUSCULAR VOLUME 80 fL (82-100); MONOCYTES # (AUTO) 0.8 /CMM (0.1-1.30); MONOCYTES % (AUTO) 8.1 % (2.0-12.0); NEUTROPHILS # (AUTO) 7.6 /CMM (1.8-8.9); PLATELET COUNT (AUTO) 244 /CMM (150-450); RED BLOOD CELL COUNT(AUTO) 3.87 MIL/uL (4.0-5.2); WHITE BLOOD COUNT (AUTO) 10.3 K/uL (4.3-11.0)
[2018-10-21 07:39] LABS: CALCIUM, SERUM 8.8 mg/dL (8.5-10.1); CARBON DIOXIDE 27 mmol/L (21-32); CHLORIDE 99 mmol/L (98-107); CREATININE 2.9 mg/dL (0.6-1.3); GLUCOSE 134 mg/dL (74-106); PHOSPHORUS 4.4 mg/dL (2.5-4.9); POTASSIUM 3.6 mmol/L (3.5-5.1); SODIUM SERUM 136 mmol/L (136-145)
[2018-10-21 07:51] LABS: MAGNESIUM 4.7 mg/dL (1.8-2.4); UREA NITROGEN, BLOOD 93 mg/dL (7-18)
[2018-10-21 08:00] VITALS: BP 102/37
--- NOTE | 2018-10-21 08:50 | NUR ---
Left message for Dr Patrick regarding lab results.
[2018-10-21] MEDS: METOPROLOL TARTRATE 25 MG TABLET GT SCH ×2 (09:31→21:11)
[2018-10-21] MEDS: ACIDOPHILUS/BULGARICUS 1 EACH TAB.CHEW GT SCH ×2 (09:31→21:10)
[2018-10-21] MEDS: DOCUSATE SODIUM LIQ 100 MG/10 ML UDC GT SCH (09:31)
[2018-10-21] MEDS: APIXABAN 2.5 MG TABLET GT SCH ×2 (09:31→21:10)
[2018-10-21] MEDS: MULTIVIT W/MINERALS 1 TAB TABLET GT SCH (09:31)
[2018-10-21] MEDS: Z GUARD REMEDY 4 OZ OINT TP SCH ×4 (09:32→21:12)
[2018-10-21] MEDS: Z GUARD REMEDY 2 OZ OINT TP SCH ×2 (09:32→21:12)
[2018-10-21] MEDS: INSULIN DETEMIR 100 UNIT/ML CARTRIDGE SQ SCH ×2 (09:32→21:12)
[2018-10-21] MEDS: NYSTATIN/TRIAMCIN 15 GM CREAM 15 GM TUBE TP SCH ×2 (09:32→21:12)
[2018-10-21] MEDS: NEOMY SULF/BACITRAC ZN/POLY 15 GM TUBE TP SCH ×2 (09:32→21:12)
[2018-10-21] MEDS: VITS A AND D/WHITE PET/LANOLIN 5 GM PACKET TP SCH ×2 (09:32→21:12)
--- NOTE | 2018-10-21 10:29 | NUR ---
Relayed lab results to Dr Rico. BUN 95 Cr 2.9 Mg 4.7. No new order.
[2018-10-21 12:00] VITALS: BP 104/36
[2018-10-21] MEDS: INSULIN REGULAR, HUMAN 100 UNIT/ML 3 ML VIAL SQ PRN ×2 (12:01→18:25)
[2018-10-21] MEDS: HYDROGEN PEROXIDE 480 ML BOTTLE TP SCH ×2 (14:26→21:12)
[2018-10-21 18:45] VITALS: BP 116/48
[2018-10-21 20:30] VITALS: BP 115/51
[2018-10-21] MEDS: IV D5/ 0.9% NACL 1,000 ML IV PRN (21:00)
[2018-10-21] MEDS: SENNOSIDES 8.6 MG TABLET GT SCH (21:12)
[2018-10-22 00:13] VITALS: BP 126/55
[2018-10-22] MEDS: BLOOD SUGAR DIAGNOSTIC 1 EACH STRIP IN SCH ×4 (00:14→17:48)
[2018-10-22] MEDS: METOCLOPRAMIDE HCL 10 MG TABLET GT SCH ×4 (00:14→17:48)
[2018-10-22] MEDS: INSULIN REGULAR, HUMAN 100 UNIT/ML 3 ML VIAL SQ PRN ×4 (00:15→17:49)
[2018-10-22] MEDS: IPRATROPIUM NEB FS 0.5 MG/2.5 ML AMPUL.NEB NEB SCH ×4 (01:31→19:24)
[2018-10-22 06:16] VITALS: BP 119/52
[2018-10-22] MEDS: HYDROGEN PEROXIDE 480 ML BOTTLE TP SCH ×2 (07:10→20:52)
[2018-10-22 08:00] VITALS: BP 117/71
[2018-10-22] MEDS: Z GUARD REMEDY 2 OZ OINT TP SCH ×2 (09:00→20:52)
[2018-10-22] MEDS: VITS A AND D/WHITE PET/LANOLIN 5 GM PACKET TP SCH ×2 (09:00→20:52)
[2018-10-22] MEDS: Z GUARD REMEDY 4 OZ OINT TP SCH ×4 (09:00→20:52)
[2018-10-22] MEDS: NYSTATIN/TRIAMCIN 15 GM CREAM 15 GM TUBE TP SCH ×2 (09:00→20:52)
[2018-10-22] MEDS: NEOMY SULF/BACITRAC ZN/POLY 15 GM TUBE TP SCH ×2 (09:00→20:52)
[2018-10-22] MEDS: APIXABAN 2.5 MG TABLET GT SCH ×2 (09:19→20:51)
[2018-10-22] MEDS: ACIDOPHILUS/BULGARICUS 1 EACH TAB.CHEW GT SCH ×2 (09:19→20:51)
[2018-10-22] MEDS: DOCUSATE SODIUM LIQ 100 MG/10 ML UDC GT SCH (09:19)
[2018-10-22] MEDS: MULTIVIT W/MINERALS 1 TAB TABLET GT SCH (09:20)
[2018-10-22] MEDS: METOPROLOL TARTRATE 25 MG TABLET GT SCH ×2 (09:20→20:52)
[2018-10-22] MEDS: INSULIN DETEMIR 100 UNIT/ML CARTRIDGE SQ SCH ×2 (09:29→20:57)
[2018-10-22 12:00] VITALS: BP 125/70
--- NOTE | 2018-10-22 12:15 | NUR ---
Paged Dr. Oro percussion welding machine operator for Dr. Felton to refer lab results yesterday if he wants to have a follow-up labs or continue IVF. BUN 93, Creat 2.9, Mag 4.7, awaiting for call back.
--- NOTE | 2018-10-22 17:10 | NUR ---
Paged Dr. Power Felton twice and referred BMP and Mg. level to him, (BUN 93, Creat 2.9, Mg. 4.7) Dr. Felton did not continue IVF, but to repeat labs on Saturday.
--- NOTE | 2018-10-22 17:40 | NUR ---
RT NOTE: RECEIVED PT ON NOTED VENT SETTINGS. NO RESPIRATORY DISTRESS NOTED. TRACH CHECKED SECURE AND PATENT. SXD AND LAVAGED PT Q ROUND AND NEEDED. TXS GIVEN ORDERED WITH NO ADVERSE REACTIONS NOTED. TRACH CARE DONE. EMERGENCY EQUIPMENT @ BEDSIDE. ALARMS CHECKED. Addendum: 10/22/18 at 1741 by AREN RAMIREZ RT Amended: Links added.
[2018-10-22 18:00] VITALS: BP 121/50
[2018-10-22 19:58] VITALS: BP 136/66
[2018-10-22] MEDS: MAGNESIUM HYDROXIDE 30 ML UDC GT PRN (20:57)
[2018-10-22] MEDS: SENNOSIDES 8.6 MG TABLET GT SCH (21:05)
[2018-10-23] MEDS: METOCLOPRAMIDE HCL 10 MG TABLET GT SCH ×5 (00:05→23:15)
[2018-10-23] MEDS: BLOOD SUGAR DIAGNOSTIC 1 EACH STRIP IN SCH ×5 (00:05→23:15)
[2018-10-23] MEDS: INSULIN REGULAR, HUMAN 100 UNIT/ML 3 ML VIAL SQ PRN ×5 (00:06→23:15)
[2018-10-23 00:40] VITALS: BP 106/49
[2018-10-23] MEDS: IPRATROPIUM NEB FS 0.5 MG/2.5 ML AMPUL.NEB NEB SCH ×4 (01:08→19:24)
--- NOTE | 2018-10-23 03:03 | NUR ---
RT NOTE PT RECEIVED ON MECH VENT ON THE FOLLOWING NOTED SETTINGS. PT SX'D, MOD THICK WHITE SECRETIONS NOTED. NO RESP DISTRESS NOTED AT THIS TIME. VENT IS PLUGGED INTO RED OUTLET AND ALARMS ARE ON AND AUDIBLE. MEDS ARE NOT AVAILABLE, BUT THEY ARE ORDERED. TRACH CARE IS DONE. AMBU BAG AND SPARE TRACH ARE AT BEDSIDE. WILL CONT TO MONITOR PT THROUGH OUT THE NIGHT.
[2018-10-23] MEDS: NEPRO 1,000 ML BOTTLE GT PRN (05:18)
[2018-10-23 06:10] VITALS: BP 127/64
[2018-10-23] MEDS: HYDROGEN PEROXIDE 480 ML BOTTLE TP SCH ×2 (07:37→20:11)
[2018-10-23 08:08] VITALS: BP 116/46
[2018-10-23] MEDS: APIXABAN 2.5 MG TABLET GT SCH ×2 (09:24→21:06)
[2018-10-23] MEDS: DOCUSATE SODIUM LIQ 100 MG/10 ML UDC GT SCH (09:24)
[2018-10-23] MEDS: ACIDOPHILUS/BULGARICUS 1 EACH TAB.CHEW GT SCH ×2 (09:24→21:06)
[2018-10-23] MEDS: MULTIVIT W/MINERALS 1 TAB TABLET GT SCH (09:24)
[2018-10-23] MEDS: NYSTATIN/TRIAMCIN 15 GM CREAM 15 GM TUBE TP SCH ×2 (09:25→21:07)
[2018-10-23] MEDS: NEOMY SULF/BACITRAC ZN/POLY 15 GM TUBE TP SCH ×2 (09:25→21:07)
[2018-10-23] MEDS: VITS A AND D/WHITE PET/LANOLIN 5 GM PACKET TP SCH ×2 (09:25→21:07)
[2018-10-23] MEDS: Z GUARD REMEDY 4 OZ OINT TP SCH ×4 (09:25→21:07)
[2018-10-23] MEDS: Z GUARD REMEDY 2 OZ OINT TP SCH ×2 (09:25→21:07)
[2018-10-23] MEDS: INSULIN DETEMIR 100 UNIT/ML CARTRIDGE SQ SCH ×2 (09:26→21:07)
[2018-10-23] MEDS: METOPROLOL TARTRATE 25 MG TABLET GT SCH ×2 (09:27→21:06)
[2018-10-23 12:00] VITALS: BP 132/68
[2018-10-23 18:00] VITALS: BP 122/67
[2018-10-23 20:45] VITALS: BP 111/69
[2018-10-23] MEDS: SENNOSIDES 8.6 MG TABLET GT SCH (21:07)
[2018-10-24 00:05] VITALS: BP 102/52
[2018-10-24] MEDS: IPRATROPIUM NEB FS 0.5 MG/2.5 ML AMPUL.NEB NEB SCH ×4 (00:31→19:34)
[2018-10-24] MEDS: BLOOD SUGAR DIAGNOSTIC 1 EACH STRIP IN SCH ×4 (05:31→23:15)
[2018-10-24] MEDS: INSULIN REGULAR, HUMAN 100 UNIT/ML 3 ML VIAL SQ PRN ×4 (05:31→23:26)
[2018-10-24] MEDS: METOCLOPRAMIDE HCL 10 MG TABLET GT SCH ×4 (05:31→23:13)
[2018-10-24 06:21] VITALS: BP 114/54
[2018-10-24 07:53] VITALS: BP 152/79
[2018-10-24 07:55] LABS: CALCIUM, SERUM 9.1 mg/dL (8.5-10.1); CARBON DIOXIDE 29 mmol/L (21-32); CHLORIDE 103 mmol/L (98-107); CREATININE 2.4 mg/dL (0.6-1.3); GLUCOSE 118 mg/dL (74-106); MAGNESIUM 3.7 mg/dL (1.8-2.4); POTASSIUM 3.3 mmol/L (3.5-5.1); SODIUM SERUM 143 mmol/L (136-145); UREA NITROGEN, BLOOD 66 mg/dL (7-18)
[2018-10-24] MEDS: VITS A AND D/WHITE PET/LANOLIN 5 GM PACKET TP SCH ×2 (09:00→21:30)
[2018-10-24] MEDS: HYDROGEN PEROXIDE 480 ML BOTTLE TP SCH ×2 (09:00→21:29)
[2018-10-24] MEDS: NYSTATIN/TRIAMCIN 15 GM CREAM 15 GM TUBE TP SCH ×2 (09:00→21:29)
[2018-10-24] MEDS: Z GUARD REMEDY 2 OZ OINT TP SCH ×2 (09:00→21:29)
[2018-10-24] MEDS: Z GUARD REMEDY 4 OZ OINT TP SCH ×4 (09:00→21:29)
[2018-10-24] MEDS: NEOMY SULF/BACITRAC ZN/POLY 15 GM TUBE TP SCH ×2 (09:00→21:29)
[2018-10-24] MEDS: APIXABAN 2.5 MG TABLET GT SCH ×2 (09:38→21:37)
[2018-10-24] MEDS: DOCUSATE SODIUM LIQ 100 MG/10 ML UDC GT SCH (09:38)
[2018-10-24] MEDS: MULTIVIT W/MINERALS 1 TAB TABLET GT SCH (09:38)
[2018-10-24] MEDS: ACIDOPHILUS/BULGARICUS 1 EACH TAB.CHEW GT SCH ×2 (09:38→21:29)
[2018-10-24] MEDS: INSULIN DETEMIR 100 UNIT/ML CARTRIDGE SQ SCH ×2 (09:56→21:36)
[2018-10-24] MEDS: METOPROLOL TARTRATE 25 MG TABLET GT SCH ×2 (09:56→21:29)
--- NOTE | 2018-10-24 10:15 | NUR ---
Relayed lab results to Dr Patrick. Received order to Potassium Chloride 40 mEq GT x 1 for hypokalemia. Notified pt's daughter.
[2018-10-24 12:00] VITALS: BP 129/51
[2018-10-24] MEDS ORDERED: POTASSIUM CHLORIDE 20 MEQ POWDER PACKET GT ONE (12:00)
--- NOTE | 2018-10-24 15:00 | NUR ---
Pt's tongue appears dry. ANTIQUE FURNITURE REPRODUCER Maria Fernanda Mata ordered Biotene moisturizing gel to oral cavity q 6 hours for dry mouth. Notified daughter.
[2018-10-24] MEDS: BIOTENE MOISTURIZING MM SCH (18:00)
[2018-10-24 18:46] VITALS: BP 124/54
[2018-10-24 20:00] VITALS: BP 150/60
[2018-10-24] MEDS: SENNOSIDES 8.6 MG TABLET GT SCH (21:36)
[2018-10-25] VITALS: BP 122/48
[2018-10-25] MEDS: BIOTENE MOISTURIZING MM SCH ×5 (00:36→23:38)
[2018-10-25] MEDS: IPRATROPIUM NEB FS 0.5 MG/2.5 ML AMPUL.NEB NEB SCH ×4 (01:33→20:08)
[2018-10-25] MEDS: METOCLOPRAMIDE HCL 10 MG TABLET GT SCH ×4 (05:38→23:37)
[2018-10-25] MEDS: INSULIN REGULAR, HUMAN 100 UNIT/ML 3 ML VIAL SQ PRN ×4 (05:38→23:39)
[2018-10-25] MEDS: BLOOD SUGAR DIAGNOSTIC 1 EACH STRIP IN SCH ×4 (05:38→23:38)
[2018-10-25] MEDS: NEPRO 1,000 ML BOTTLE GT PRN (05:44)
[2018-10-25 06:00] VITALS: BP 126/50
[2018-10-25 07:35] VITALS: BP 120/56
[2018-10-25] MEDS: METOPROLOL TARTRATE 25 MG TABLET GT SCH ×2 (09:00→21:00)
[2018-10-25] MEDS: NYSTATIN/TRIAMCIN 15 GM CREAM 15 GM TUBE TP SCH ×2 (09:00→21:00)
[2018-10-25] MEDS: Z GUARD REMEDY 2 OZ OINT TP SCH ×2 (09:00→21:00)
[2018-10-25] MEDS: Z GUARD REMEDY 4 OZ OINT TP SCH ×4 (09:00→21:00)
[2018-10-25] MEDS: VITS A AND D/WHITE PET/LANOLIN 5 GM PACKET TP SCH ×2 (09:00→21:00)
[2018-10-25] MEDS: DOCUSATE SODIUM LIQ 100 MG/10 ML UDC GT SCH (09:06)
[2018-10-25] MEDS: APIXABAN 2.5 MG TABLET GT SCH ×2 (09:06→21:00)
[2018-10-25] MEDS: HYDROGEN PEROXIDE 480 ML BOTTLE TP SCH ×2 (09:35→21:00)
[2018-10-25] MEDS: ACIDOPHILUS/BULGARICUS 1 EACH TAB.CHEW GT SCH ×2 (09:47→21:00)
[2018-10-25] MEDS: MULTIVIT W/MINERALS 1 TAB TABLET GT SCH (09:47)
[2018-10-25] MEDS: INSULIN DETEMIR 100 UNIT/ML CARTRIDGE SQ SCH ×2 (09:55→21:00)
[2018-10-25 12:00] VITALS: BP 126/59
[2018-10-25 18:05] VITALS: BP 109/68
[2018-10-25 19:50] VITALS: BP 146/70
[2018-10-25] MEDS: SENNOSIDES 8.6 MG TABLET GT SCH (22:08)
[2018-10-26] VITALS: BP 135/58
[2018-10-26] MEDS: IPRATROPIUM NEB FS 0.5 MG/2.5 ML AMPUL.NEB NEB SCH ×4 (01:57→19:21)
--- NOTE | 2018-10-26 05:00 | NUR ---
PT REC'D TRACHED ON [facility] VENT ON AC MODE ON NOTED SETTINGS. NO RESP DISTRESS OR SOB NOTED. TRACH PATENT AND SECURED. PT SX'D FOR THICK MOD AMT OF PALE YELLOW SECRETIONS. ALARMS ARE SET AND AUDIBLE. VENT PLUGGED INTO RED OUTLET. AMBU BAG BEDSIDE. Addendum: 10/26/18 at 0502 by TALA YAO RT Amended: Links added.
[2018-10-26] MEDS: BLOOD SUGAR DIAGNOSTIC 1 EACH STRIP IN SCH ×3 (05:24→17:52)
[2018-10-26] MEDS: METOCLOPRAMIDE HCL 10 MG TABLET GT SCH ×3 (05:24→17:52)
[2018-10-26] MEDS: BIOTENE MOISTURIZING MM SCH ×3 (05:24→17:52)
[2018-10-26] MEDS: INSULIN REGULAR, HUMAN 100 UNIT/ML 3 ML VIAL SQ PRN ×3 (05:26→17:53)
[2018-10-26 06:00] VITALS: BP 101/63
[2018-10-26 08:06] VITALS: BP 124/72
[2018-10-26] MEDS: Z GUARD REMEDY 2 OZ OINT TP SCH ×2 (09:00→21:40)
[2018-10-26] MEDS: NYSTATIN/TRIAMCIN 15 GM CREAM 15 GM TUBE TP SCH ×2 (09:00→21:40)
[2018-10-26] MEDS: VITS A AND D/WHITE PET/LANOLIN 5 GM PACKET TP SCH ×2 (09:00→21:40)
[2018-10-26] MEDS: Z GUARD REMEDY 4 OZ OINT TP SCH ×4 (09:00→21:40)
[2018-10-26] MEDS: HYDROGEN PEROXIDE 480 ML BOTTLE TP SCH ×2 (09:00→21:00)
[2018-10-26] MEDS: DOCUSATE SODIUM LIQ 100 MG/10 ML UDC GT SCH (09:12)
[2018-10-26] MEDS: APIXABAN 2.5 MG TABLET GT SCH ×2 (09:12→21:39)
[2018-10-26] MEDS: ACIDOPHILUS/BULGARICUS 1 EACH TAB.CHEW GT SCH ×2 (09:13→21:39)
[2018-10-26] MEDS: MULTIVIT W/MINERALS 1 TAB TABLET GT SCH (09:25)
[2018-10-26] MEDS: METOPROLOL TARTRATE 25 MG TABLET GT SCH ×2 (09:25→21:39)
[2018-10-26] MEDS: INSULIN DETEMIR 100 UNIT/ML CARTRIDGE SQ SCH ×2 (09:27→21:40)
[2018-10-26 12:00] VITALS: BP 102/69
[2018-10-26] MEDS: NEPRO 1,000 ML BOTTLE GT PRN (17:07)
[2018-10-26 18:00] VITALS: BP 94/74
[2018-10-26 21:23] VITALS: BP 127/65
[2018-10-26] MEDS: SENNOSIDES 8.6 MG TABLET GT SCH (21:40)
[2018-10-27] VITALS: BP 109/77
[2018-10-27] MEDS: BLOOD SUGAR DIAGNOSTIC 1 EACH STRIP IN SCH ×4 (00:28→17:59)
[2018-10-27] MEDS: BIOTENE MOISTURIZING MM SCH ×3 (00:28→12:00)
[2018-10-27] MEDS: METOCLOPRAMIDE HCL 10 MG TABLET GT SCH ×4 (00:28→17:04)
[2018-10-27] MEDS: INSULIN REGULAR, HUMAN 100 UNIT/ML 3 ML VIAL SQ PRN ×4 (00:30→18:00)
[2018-10-27] MEDS: IPRATROPIUM NEB FS 0.5 MG/2.5 ML AMPUL.NEB NEB SCH ×4 (00:58→19:07)
[2018-10-27 06:00] VITALS: BP 99/61
[2018-10-27 07:51] VITALS: BP 111/68
[2018-10-27] MEDS: HYDROGEN PEROXIDE 480 ML BOTTLE TP SCH ×2 (09:00→20:54)
[2018-10-27] MEDS: VITS A AND D/WHITE PET/LANOLIN 5 GM PACKET TP SCH ×2 (09:00→21:42)
[2018-10-27] MEDS: Z GUARD REMEDY 4 OZ OINT TP SCH ×4 (09:00→21:42)
[2018-10-27] MEDS: Z GUARD REMEDY 2 OZ OINT TP SCH ×2 (09:00→21:42)
[2018-10-27] MEDS: NYSTATIN/TRIAMCIN 15 GM CREAM 15 GM TUBE TP SCH ×2 (09:00→21:42)
[2018-10-27] MEDS: DOCUSATE SODIUM LIQ 100 MG/10 ML UDC GT SCH (09:11)
[2018-10-27] MEDS: ACIDOPHILUS/BULGARICUS 1 EACH TAB.CHEW GT SCH ×2 (09:12→21:40)
[2018-10-27] MEDS: APIXABAN 2.5 MG TABLET GT SCH ×2 (09:12→21:40)
[2018-10-27] MEDS: MULTIVIT W/MINERALS 1 TAB TABLET GT SCH (09:12)
[2018-10-27] MEDS: METOPROLOL TARTRATE 25 MG TABLET GT SCH ×2 (09:12→21:41)
[2018-10-27] MEDS: INSULIN DETEMIR 100 UNIT/ML CARTRIDGE SQ SCH ×2 (09:13→21:42)
[2018-10-27 12:00] VITALS: BP 125/50
--- NOTE | 2018-10-27 17:28 | NUR ---
RT NOTE PT REMAINS MECHANICALLY VENTILATED VIA CUFFED TRACHEOSTOMY TUBE. CUFF INFLATED. TRACH TUBE MIDLINE AND SECURE. VENTILATOR SETTINGS PRESCRIBED. ALARMS SET PER PROTOCOL AND AUDIBLE. VENT PLUGGED IN TO RED OUTLET. AMBU BAG AND BACK UP TRACH AT BED SIDE. NO DISTRESS NOTED. Addendum: 10/27/18 at 1730 by JYOTHI RICHARDS RT Amended: Links added.
[2018-10-27 18:00] VITALS: BP 130/56
--- NOTE | 2018-10-27 20:00 | NUR ---
RN NOTES Seen by Maria Fernanda Mata NP, with no new orders.
[2018-10-27 20:37] VITALS: BP 120/48
[2018-10-27] MEDS: SENNOSIDES 8.6 MG TABLET GT SCH (21:42)
[2018-10-27] MEDS: NEPRO 1,000 ML BOTTLE GT PRN (21:52)
[2018-10-28] MEDS: METOCLOPRAMIDE HCL 10 MG TABLET GT SCH ×4 (00:02→17:51)
[2018-10-28] MEDS: BLOOD SUGAR DIAGNOSTIC 1 EACH STRIP IN SCH ×4 (00:03→17:51)
[2018-10-28] MEDS: INSULIN REGULAR, HUMAN 100 UNIT/ML 3 ML VIAL SQ PRN ×4 (00:04→17:54)
[2018-10-28] MEDS: IPRATROPIUM NEB FS 0.5 MG/2.5 ML AMPUL.NEB NEB SCH ×4 (01:07→19:45)
[2018-10-28 01:16] VITALS: BP 120/54
[2018-10-28] MEDS: BIOTENE MOISTURIZING MM SCH ×4 (05:56→17:51)
[2018-10-28 06:44] VITALS: BP 126/60
[2018-10-28 07:42] VITALS: BP 124/66
[2018-10-28 08:05] LABS: BASOPHILS % (AUTO) 0.5 % (0.0-2.0); EOSINOPHILS % (AUTO) 4.9 % (0.0-6.0); HEMATOCRIT 27 % (33-45); HEMOGLOBIN 8.7 g/dL (11.5-14.8); LYMPHOCYTES % (AUTO) 22.8 % (20.0-44.0); MEAN CORPUSCULAR HGB CONC 32 g/dl (31.0-36.0); MEAN CORPUSCULAR VOLUME 81 fL (82-100); MONOCYTES # (AUTO) 0.7 /CMM (0.1-1.30); MONOCYTES % (AUTO) 8.1 % (2.0-12.0); NEUTROPHILS # (AUTO) 5.5 /CMM (1.8-8.9); NEUTROPHILS % (AUTO) 63.7 % (43.0-81.0); PLATELET COUNT (AUTO) 197 /CMM (150-450); RED BLOOD CELL COUNT(AUTO) 3.33 MIL/uL (4.0-5.2); WHITE BLOOD COUNT (AUTO) 8.7 K/uL (4.3-11.0)
[2018-10-28 08:11] LABS: ALANINE AMINOTRANSFERASE 20 U/L (12-78); ALBUMIN 2.6 g/dL (3.4-5.0); ALKALINE PHOSPHATASE 176 U/L (46-116); ASPARTATE AMINOTRANSFERASE 15 U/L (15-37); BILIRUBIN,TOTAL 0.2 mg/dL (0.2-1.0); CALCIUM, SERUM 8.5 mg/dL (8.5-10.1); CARBON DIOXIDE 29 mmol/L (21-32); CHLORIDE 98 mmol/L (98-107); CREATININE 2.5 mg/dL (0.6-1.3); GLUCOSE 147 mg/dL (74-106); MAGNESIUM 3.2 mg/dL (1.8-2.4); PHOSPHORUS 4.3 mg/dL (2.5-4.9); POTASSIUM 3.5 mmol/L (3.5-5.1); SODIUM SERUM 136 mmol/L (136-145); TOTAL PROTEIN, SERUM 7.7 g/dL (6.4-8.2); UREA NITROGEN, BLOOD 70 mg/dL (7-18)
[2018-10-28] MEDS: NYSTATIN/TRIAMCIN 15 GM CREAM 15 GM TUBE TP SCH ×2 (09:00→21:19)
[2018-10-28] MEDS: Z GUARD REMEDY 4 OZ OINT TP SCH ×4 (09:00→21:20)
[2018-10-28] MEDS: VITS A AND D/WHITE PET/LANOLIN 5 GM PACKET TP SCH ×2 (09:00→21:20)
[2018-10-28] MEDS: Z GUARD REMEDY 2 OZ OINT TP SCH ×2 (09:00→21:20)
[2018-10-28] MEDS: HYDROGEN PEROXIDE 480 ML BOTTLE TP SCH ×2 (09:00→21:19)
[2018-10-28] MEDS: DOCUSATE SODIUM LIQ 100 MG/10 ML UDC GT SCH (09:18)
[2018-10-28] MEDS: APIXABAN 2.5 MG TABLET GT SCH ×2 (09:19→21:22)
[2018-10-28] MEDS: MULTIVIT W/MINERALS 1 TAB TABLET GT SCH (09:19)
[2018-10-28] MEDS: ACIDOPHILUS/BULGARICUS 1 EACH TAB.CHEW GT SCH ×2 (09:19→21:19)
--- NOTE | 2018-10-28 09:30 | NUR ---
Seen by Dr Agarwal. Relayed lab results to him. No new order.
[2018-10-28] MEDS: METOPROLOL TARTRATE 25 MG TABLET GT SCH ×2 (09:45→21:19)
[2018-10-28] MEDS: INSULIN DETEMIR 100 UNIT/ML CARTRIDGE SQ SCH ×2 (09:51→21:00)
[2018-10-28 12:00] VITALS: BP 124/54
[2018-10-28 18:55] VITALS: BP 132/50
[2018-10-28 20:50] VITALS: BP 140/62
[2018-10-28] MEDS: SENNOSIDES 8.6 MG TABLET GT SCH (22:02)
[2018-10-29] VITALS: BP 130/54
[2018-10-29] MEDS: METOCLOPRAMIDE HCL 10 MG TABLET GT SCH ×5 (00:53→23:53)
[2018-10-29] MEDS: BIOTENE MOISTURIZING MM SCH ×5 (00:53→23:53)
[2018-10-29] MEDS: BLOOD SUGAR DIAGNOSTIC 1 EACH STRIP IN SCH ×5 (00:53→23:53)
[2018-10-29] MEDS: INSULIN REGULAR, HUMAN 100 UNIT/ML 3 ML VIAL SQ PRN ×5 (01:01→23:55)
[2018-10-29] MEDS: IPRATROPIUM NEB FS 0.5 MG/2.5 ML AMPUL.NEB NEB SCH ×4 (01:15→20:02)
[2018-10-29] MEDS: NEPRO 1,000 ML BOTTLE GT PRN (03:58)
[2018-10-29 06:00] VITALS: BP 117/68
[2018-10-29 07:55] VITALS: BP 117/77
[2018-10-29] MEDS: VITS A AND D/WHITE PET/LANOLIN 5 GM PACKET TP SCH ×2 (09:00→21:41)
[2018-10-29] MEDS: NYSTATIN/TRIAMCIN 15 GM CREAM 15 GM TUBE TP SCH ×2 (09:00→21:40)
[2018-10-29] MEDS: Z GUARD REMEDY 2 OZ OINT TP SCH ×2 (09:00→21:41)
[2018-10-29] MEDS: Z GUARD REMEDY 4 OZ OINT TP SCH ×4 (09:00→21:41)
[2018-10-29] MEDS: METOPROLOL TARTRATE 25 MG TABLET GT SCH ×2 (09:22→21:40)
[2018-10-29] MEDS: DOCUSATE SODIUM LIQ 100 MG/10 ML UDC GT SCH (09:22)
[2018-10-29] MEDS: MULTIVIT W/MINERALS 1 TAB TABLET GT SCH (09:22)
[2018-10-29] MEDS: APIXABAN 2.5 MG TABLET GT SCH ×2 (09:22→21:39)
[2018-10-29] MEDS: ACIDOPHILUS/BULGARICUS 1 EACH TAB.CHEW GT SCH ×2 (09:22→21:39)
[2018-10-29] MEDS: INSULIN DETEMIR 100 UNIT/ML CARTRIDGE SQ SCH ×2 (09:23→21:40)
[2018-10-29] MEDS: HYDROGEN PEROXIDE 480 ML BOTTLE TP SCH ×2 (09:27→21:00)
[2018-10-29 12:00] VITALS: BP 117/77
--- NOTE | 2018-10-29 14:15 | NUR ---
SW called and spoke with pt.'s child, Jennifer Araiza to introduce herself as the new Sap Functional Analyst for the Subacute dept. Jennifer was receptive to speaking with SW and stated "I'm happy to hear from the new SW". SW also invited Jennifer to attend the IDT meeting this Wednesday, October 31, 2018 from 12:30pm to 1:30 pm. Jennifer expressed that she cannot attend nor be on speaker phone via phone call to participate in IDT meeting this Wednesday, October 31, 2018 from 12:30pm to 1:30 pm due to work conflict. SW will be available to support family as needed.
--- NOTE | 2018-10-29 17:25 | NUR ---
RT NOTES TRACH TUBE IN PLACE, PATENT, AND SECURED WITH TRACH TIE. ALARMS ON AND AUDIBLE. VENT PLUGGED IN TO RED OUTLET. BACK UP TRACH AND AMBU BAG BY THE BEDSIDE. MONTHLY TRACH TUBE CHANGE PERFORMED. MINIMAL BLEEDING. TOLERATE WELL. NURSE AWARE. NO SIGNS OF ANY DISTRESS. Addendum: 10/29/18 at 1727 by ANDRES MARINO RT Amended: Links added.
[2018-10-29 18:49] VITALS: BP 110/75
[2018-10-29] MEDS: BISACODYL SUPP (10 MG) 10 MG/SUPP.RECT SUPP.RECT RC PRN (18:53)
--- NOTE | 2018-10-29 20:02 | NUR ---
PT RECEIVED WITH A SHILEY 8 TRACH ON THE VENT WITH NOTED SETTINGS. PT IS RESPONDS TO STIMULI WHEN SX'D. VENT ALARMS ARE SET AND AUDIBLE WITH AMBU BAG BY BEDSIDE. PAPER COATING SUPERVISOR CUFF PRESSURE NOTED. VENT IS PLUGGED INTO RED OUTLET. HHN TX GIVEN WITH NO ADVERSE REACTIONS. NO RESPIRATORY DISTRESS NOTED AT THIS TIME, WILL CONTINUE TO MONITOR.
[2018-10-29 20:09] VITALS: BP 115/67
[2018-10-29] MEDS: SENNOSIDES 8.6 MG TABLET GT SCH (21:41)
[2018-10-30] VITALS: BP 111/66
[2018-10-30] MEDS: IPRATROPIUM NEB FS 0.5 MG/2.5 ML AMPUL.NEB NEB SCH ×4 (01:19→20:12)
[2018-10-30] MEDS: METOCLOPRAMIDE HCL 10 MG TABLET GT SCH ×3 (05:30→17:25)
[2018-10-30] MEDS: BIOTENE MOISTURIZING MM SCH ×3 (05:31→17:25)
[2018-10-30] MEDS: BLOOD SUGAR DIAGNOSTIC 1 EACH STRIP IN SCH ×3 (05:57→17:25)
[2018-10-30] MEDS: INSULIN REGULAR, HUMAN 100 UNIT/ML 3 ML VIAL SQ PRN ×3 (05:59→17:28)
[2018-10-30 06:17] VITALS: BP 118/62
[2018-10-30 07:38] VITALS: BP 143/76
[2018-10-30] MEDS: Z GUARD REMEDY 2 OZ OINT TP SCH ×2 (09:00→21:28)
[2018-10-30] MEDS: DOCUSATE SODIUM LIQ 100 MG/10 ML UDC GT SCH (09:00)
[2018-10-30] MEDS: INSULIN DETEMIR 100 UNIT/ML CARTRIDGE SQ SCH ×2 (09:00→21:28)
[2018-10-30] MEDS: METOPROLOL TARTRATE 25 MG TABLET GT SCH ×2 (09:00→21:27)
[2018-10-30] MEDS: Z GUARD REMEDY 4 OZ OINT TP SCH ×4 (09:00→21:28)
[2018-10-30] MEDS: MULTIVIT W/MINERALS 1 TAB TABLET GT SCH (09:00)
[2018-10-30] MEDS: NYSTATIN/TRIAMCIN 15 GM CREAM 15 GM TUBE TP SCH ×2 (09:00→21:28)
[2018-10-30] MEDS: VITS A AND D/WHITE PET/LANOLIN 5 GM PACKET TP SCH ×2 (09:00→21:28)
[2018-10-30] MEDS: APIXABAN 2.5 MG TABLET GT SCH ×2 (09:00→21:27)
[2018-10-30] MEDS: ACIDOPHILUS/BULGARICUS 1 EACH TAB.CHEW GT SCH ×2 (09:00→21:27)
[2018-10-30 12:00] VITALS: BP 135/70
--- NOTE | 2018-10-30 12:53 | NUR ---
Seen and examined by Dr. Patrick, NNO given. Informed Dr. Patrick that patient remain on isolation. The source of infection is the GT site. Patient is off antibiotic, the site is dry and no drainage noted. Will refer to infection control nurse per ID. Asked Dr. Patrick if he wants any follow-up lab, he said no need at this time.
[2018-10-30] MEDS: NEPRO 1,000 ML BOTTLE GT PRN (13:04)
[2018-10-30] MEDS: HYDROGEN PEROXIDE 480 ML BOTTLE TP SCH ×2 (14:06→21:00)
[2018-10-30] MEDS: MAGNESIUM HYDROXIDE 30 ML UDC GT PRN (17:25)
[2018-10-30 18:41] VITALS: BP 101/55
[2018-10-30 20:32] VITALS: BP 139/63
[2018-10-30] MEDS: SENNOSIDES 8.6 MG TABLET GT SCH (21:28)
[2018-10-31] VITALS: BP 133/49
[2018-10-31] MEDS: BLOOD SUGAR DIAGNOSTIC 1 EACH STRIP IN SCH ×5 (00:30→23:43)
[2018-10-31] MEDS: BIOTENE MOISTURIZING MM SCH ×5 (00:30→23:43)
[2018-10-31] MEDS: METOCLOPRAMIDE HCL 10 MG TABLET GT SCH ×5 (00:30→23:43)
[2018-10-31] MEDS: INSULIN REGULAR, HUMAN 100 UNIT/ML 3 ML VIAL SQ PRN ×5 (00:31→23:46)
[2018-10-31] MEDS: IPRATROPIUM NEB FS 0.5 MG/2.5 ML AMPUL.NEB NEB SCH ×4 (02:09→19:19)
--- NOTE | 2018-10-31 03:38 | NUR ---
RT NOTE PT REC'D TRACHED ON [facility] VENT ON AC MODE. NO RESP DISTRESS NOTED OR SOB NOTED. TRACH IS PATENT AND SECURED. ALARMS ARE SET AUDIBLE. VENT PLUGGED INTO RED OUTLET. AMBU BAG BEDSIDE. WILL CONTINUE TO MONITOR. Addendum: 10/31/18 at 0338 by TALA YAO RT Amended: Links added.
[2018-10-31 06:00] VITALS: BP 105/65
[2018-10-31 07:42] VITALS: BP 122/57
[2018-10-31] MEDS: HYDROGEN PEROXIDE 480 ML BOTTLE TP SCH ×2 (09:00→21:02)
[2018-10-31] MEDS: ACIDOPHILUS/BULGARICUS 1 EACH TAB.CHEW GT SCH ×2 (09:45→21:02)
[2018-10-31] MEDS: DOCUSATE SODIUM LIQ 100 MG/10 ML UDC GT SCH (09:45)
[2018-10-31] MEDS: APIXABAN 2.5 MG TABLET GT SCH ×2 (09:45→21:04)
[2018-10-31] MEDS: INSULIN DETEMIR 100 UNIT/ML CARTRIDGE SQ SCH ×2 (09:46→21:04)
[2018-10-31] MEDS: METOPROLOL TARTRATE 25 MG TABLET GT SCH ×2 (09:46→20:47)
[2018-10-31] MEDS: MULTIVIT W/MINERALS 1 TAB TABLET GT SCH (09:46)
[2018-10-31] MEDS: Z GUARD REMEDY 4 OZ OINT TP SCH ×4 (09:47→21:02)
[2018-10-31] MEDS: Z GUARD REMEDY 2 OZ OINT TP SCH ×2 (09:47→21:02)
[2018-10-31] MEDS: VITS A AND D/WHITE PET/LANOLIN 5 GM PACKET TP SCH ×2 (09:47→21:03)
[2018-10-31] MEDS: NYSTATIN/TRIAMCIN 15 GM CREAM 15 GM TUBE TP SCH ×2 (09:47→21:02)
[2018-10-31 12:00] VITALS: BP 108/60
--- NOTE | 2018-10-31 14:48 | NUR ---
INTERDISCIPLINARY TEAM CONFERENCE (IDT) was held today. The patient's daughter, Jennifer Araiza was unable to attend or participate in IDT via speakerphone. Dr. Agarwal and interdisciplinary team discussed patient's plan of care in detail. The patient's orders, medications and treatment were reviewed. Per Charge nurseDeclan the patient's isolation is still pending and will not be discontinued as of yet. Per Declan the patient's family have discussed being interested in comfort care for the pt. However, they have yet to confirm. No new orders were given.
[2018-10-31] MEDS: NEPRO 1,000 ML BOTTLE GT PRN (17:15)
[2018-10-31 18:53] VITALS: BP 119/69
[2018-10-31 19:59] VITALS: BP 126/55
[2018-10-31] MEDS: SENNOSIDES 8.6 MG TABLET GT SCH (21:03)
--- NOTE | 2018-10-31 22:09 | NUR ---
RT PATIENT WAS RECEIVED ON CONTINUOUS VENT SUPPORT ON NOTED SETTINGS. PATIENT STABLE AT THIS TIME . TRACH TUBE PATENT AND SECURED. WILL CONTINUE TO MONITOR. Addendum: 10/31/18 at 2212 by NYA RICHARDS RT Amended: Links added.
[2018-11-01] VITALS: BP 119/41
[2018-11-01] MEDS: IPRATROPIUM NEB FS 0.5 MG/2.5 ML AMPUL.NEB NEB SCH ×4 (01:16→20:26)
[2018-11-01] MEDS: METOCLOPRAMIDE HCL 10 MG TABLET GT SCH ×3 (05:32→17:52)
[2018-11-01] MEDS: BIOTENE MOISTURIZING MM SCH ×3 (05:32→18:07)
[2018-11-01] MEDS: BLOOD SUGAR DIAGNOSTIC 1 EACH STRIP IN SCH ×3 (05:32→17:52)
[2018-11-01] MEDS: INSULIN REGULAR, HUMAN 100 UNIT/ML 3 ML VIAL SQ PRN ×3 (05:56→18:07)
[2018-11-01 06:01] VITALS: BP 129/52
[2018-11-01 07:32] VITALS: BP 127/63
[2018-11-01] MEDS: VITS A AND D/WHITE PET/LANOLIN 5 GM PACKET TP SCH ×2 (09:00→20:53)
[2018-11-01] MEDS: NYSTATIN/TRIAMCIN 15 GM CREAM 15 GM TUBE TP SCH ×2 (09:00→20:52)
[2018-11-01] MEDS: Z GUARD REMEDY 2 OZ OINT TP SCH ×2 (09:00→20:52)
[2018-11-01] MEDS: Z GUARD REMEDY 4 OZ OINT TP SCH ×4 (09:00→20:53)
[2018-11-01] MEDS: DOCUSATE SODIUM LIQ 100 MG/10 ML UDC GT SCH (09:27)
[2018-11-01] MEDS: ACIDOPHILUS/BULGARICUS 1 EACH TAB.CHEW GT SCH ×2 (09:27→20:50)
[2018-11-01] MEDS: MULTIVIT W/MINERALS 1 TAB TABLET GT SCH (09:37)
[2018-11-01] MEDS: APIXABAN 2.5 MG TABLET GT SCH ×2 (09:38→20:49)
[2018-11-01] MEDS: METOPROLOL TARTRATE 25 MG TABLET GT SCH ×2 (09:39→20:51)
[2018-11-01] MEDS: INSULIN DETEMIR 100 UNIT/ML CARTRIDGE SQ SCH ×2 (09:40→21:24)
[2018-11-01 12:00] VITALS: BP 120/74
[2018-11-01] MEDS: HYDROGEN PEROXIDE 480 ML BOTTLE TP SCH ×2 (15:24→20:52)
[2018-11-01] MEDS: NEPRO 1,000 ML BOTTLE GT PRN (17:52)
--- NOTE | 2018-11-01 18:04 | NUR ---
RT END OF THE SHIFT REPORT PT 83 Y OLD FEMALE REMAIN TRACH'D CHELA # 8 ON [facility]. VENT ON NOTED SETTINGS, NO RESP DISTRESS NOTED OR SOB T/O SHIFT. EQUAL CHEST RISE NOTED. B/S BILATERALLY RHONCHI SUX'S FOR LARGE. AMT OF CLEAR SECRETIONS. TRACH IS PATENT AND SECURED. ALARMS ARE SET AND FUNCTIONAL. VENT PLUGGED INTO RED OUTLET. AMBU BAG BEDSIDE. TRACH CARE DONE, HME CHANGED. REPORT WILL PASS TO PM SHIFT. Addendum: 11/01/18 at 1805 by HORACIO ZALDIVAR RT Amended: Links added.
[2018-11-01 18:05] VITALS: BP 113/73
[2018-11-01 19:47] VITALS: BP 113/52
[2018-11-01] MEDS: SENNOSIDES 8.6 MG TABLET GT SCH (21:24)
[2018-11-02] MEDS: BLOOD SUGAR DIAGNOSTIC 1 EACH STRIP IN SCH ×4 (00:29→17:55)
[2018-11-02] MEDS: METOCLOPRAMIDE HCL 10 MG TABLET GT SCH ×4 (00:29→17:55)
[2018-11-02] MEDS: BIOTENE MOISTURIZING MM SCH ×4 (00:31→17:55)
[2018-11-02] MEDS: INSULIN REGULAR, HUMAN 100 UNIT/ML 3 ML VIAL SQ PRN ×3 (00:31→17:56)
[2018-11-02 00:45] VITALS: BP 117/70
[2018-11-02] MEDS: IPRATROPIUM NEB FS 0.5 MG/2.5 ML AMPUL.NEB NEB SCH ×4 (02:54→19:38)
--- NOTE | 2018-11-02 05:15 | NUR ---
PT REC'D TRACHED ON [facility] VENT ON AC MODE. NO RESP DISTRESS OR SOB NOTED. TRACH IS PATENT AND SECURED. SX'D FOR MOD AMT OF PALE YELLOW SECRETIONS. ALARMS ARE SET AND AUDIBLE. VENT PLUGGED INTO RED OUTLET. AMBU BAG BEDSIDE. Addendum: 11/02/18 at 0515 by TALA YAO RT Amended: Links added.
[2018-11-02 06:14] VITALS: BP 124/76
[2018-11-02 07:45] VITALS: BP 89/49
[2018-11-02] MEDS: METOPROLOL TARTRATE 25 MG TABLET GT SCH ×2 (09:00→20:33)
[2018-11-02] MEDS: DOCUSATE SODIUM LIQ 100 MG/10 ML UDC GT SCH (09:07)
[2018-11-02] MEDS: ACIDOPHILUS/BULGARICUS 1 EACH TAB.CHEW GT SCH ×2 (09:08→20:33)
[2018-11-02] MEDS: APIXABAN 2.5 MG TABLET GT SCH ×2 (09:08→20:32)
[2018-11-02] MEDS: MULTIVIT W/MINERALS 1 TAB TABLET GT SCH (09:09)
[2018-11-02] MEDS: INSULIN DETEMIR 100 UNIT/ML CARTRIDGE SQ SCH ×2 (09:09→20:46)
[2018-11-02] MEDS: VITS A AND D/WHITE PET/LANOLIN 5 GM PACKET TP SCH ×2 (09:10→20:35)
[2018-11-02] MEDS: Z GUARD REMEDY 2 OZ OINT TP SCH ×2 (09:10→20:34)
[2018-11-02] MEDS: Z GUARD REMEDY 4 OZ OINT TP SCH ×4 (09:10→20:34)
[2018-11-02] MEDS: NYSTATIN/TRIAMCIN 15 GM CREAM 15 GM TUBE TP SCH ×2 (09:10→20:34)
[2018-11-02] MEDS: HYDROGEN PEROXIDE 480 ML BOTTLE TP SCH ×2 (11:00→21:03)
[2018-11-02 15:03] VITALS: BP 125/83
[2018-11-02 18:24] VITALS: BP 118/75
[2018-11-02 19:51] VITALS: BP 116/54
--- NOTE | 2018-11-02 20:54 | NUR ---
RT PATIENT WAS RECEIVED ON CONTINUOUS VENT SUPPORT ON NOTED VENT SETTINGS. PATIENT STABLE AT THIS TIME . TRACH TUBE PATENT AND SECURED. WILL CONTINUE TO MONITOR Addendum: 11/02/18 at 2054 by NYA RICHARDS RT Amended: Links added.
[2018-11-02] MEDS: SENNOSIDES 8.6 MG TABLET GT SCH (21:23)
[2018-11-03] MEDS: BLOOD SUGAR DIAGNOSTIC 1 EACH STRIP IN SCH ×4 (00:52→17:51)
[2018-11-03] MEDS: METOCLOPRAMIDE HCL 10 MG TABLET GT SCH ×4 (00:52→17:20)
[2018-11-03] MEDS: INSULIN REGULAR, HUMAN 100 UNIT/ML 3 ML VIAL SQ PRN ×3 (00:53→17:52)
[2018-11-03] MEDS: BIOTENE MOISTURIZING MM SCH ×4 (00:54→17:51)
[2018-11-03 01:07] VITALS: BP 124/80
[2018-11-03] MEDS: IPRATROPIUM NEB FS 0.5 MG/2.5 ML AMPUL.NEB NEB SCH ×4 (01:17→20:02)
[2018-11-03] MEDS: NEPRO 1,000 ML BOTTLE GT PRN (05:25)
[2018-11-03 06:12] VITALS: BP 121/82
[2018-11-03] MEDS: DOCUSATE SODIUM LIQ 100 MG/10 ML UDC GT SCH (08:35)
[2018-11-03] MEDS: APIXABAN 2.5 MG TABLET GT SCH ×2 (08:36→20:57)
[2018-11-03] MEDS: MULTIVIT W/MINERALS 1 TAB TABLET GT SCH (08:37)
[2018-11-03] MEDS: ACIDOPHILUS/BULGARICUS 1 EACH TAB.CHEW GT SCH ×2 (08:37→20:57)
[2018-11-03] MEDS: METOPROLOL TARTRATE 25 MG TABLET GT SCH ×2 (08:37→20:58)
[2018-11-03] MEDS: INSULIN DETEMIR 100 UNIT/ML CARTRIDGE SQ SCH ×2 (08:57→21:09)
[2018-11-03] MEDS: Z GUARD REMEDY 4 OZ OINT TP SCH ×4 (09:00→20:58)
[2018-11-03] MEDS: Z GUARD REMEDY 2 OZ OINT TP SCH (09:00)
[2018-11-03] MEDS: VITS A AND D/WHITE PET/LANOLIN 5 GM PACKET TP SCH ×2 (09:00→20:58)
[2018-11-03] MEDS: NYSTATIN/TRIAMCIN 15 GM CREAM 15 GM TUBE TP SCH (09:00)
[2018-11-03] MEDS: HYDROGEN PEROXIDE 480 ML BOTTLE TP SCH ×2 (09:21→20:58)
[2018-11-03 09:47] VITALS: BP 131/57
[2018-11-03 12:00] VITALS: BP 145/63
--- NOTE | 2018-11-03 15:44 | NUR ---
Late entry for 10/31/18 Requested from Infection Control Nurse to review current isolation for recommendations for clearance. Last GT site culture positive for K. Pneumoniae and ACB. Gt site no s/s of infection ( no drainage, no foul discharge, no redness ). As per Infection Control Nurse, to continue isolation as CRE cannot be discontinued, communicated during IDT.
--- NOTE | 2018-11-03 16:59 | NUR ---
RT NOTES TRACH TUBE IN PLACE, PATENT, AND SECURED WITH TRACH TIE. ALARMS ON AND AUDIBLE. VENT PLUGGED IN TO RED OUTLET. AMBU BAG AND BACK UP TRACH BY THE BEDSIDE. NO SIGNS OF ANY DISTRESS. Addendum: 11/03/18 at 1700 by ANDRES MARINO RT Amended: Links added.
[2018-11-03 18:41] VITALS: BP_SYST 141; BP_SYST 151; BP_DIAS 74
[2018-11-03] MEDS: SENNOSIDES 8.6 MG TABLET GT SCH (21:00)
[2018-11-03 22:02] VITALS: BP 107/58
[2018-11-04] VITALS: BP 135/51
[2018-11-04] MEDS: BLOOD SUGAR DIAGNOSTIC 1 EACH STRIP IN SCH ×5 (00:03→23:57)
[2018-11-04] MEDS: METOCLOPRAMIDE HCL 10 MG TABLET GT SCH ×5 (00:04→23:57)
[2018-11-04] MEDS: BIOTENE MOISTURIZING MM SCH ×5 (00:04→23:59)
[2018-11-04] MEDS: INSULIN REGULAR, HUMAN 100 UNIT/ML 3 ML VIAL SQ PRN ×5 (00:06→21:09)
[2018-11-04] MEDS: IPRATROPIUM NEB FS 0.5 MG/2.5 ML AMPUL.NEB NEB SCH ×4 (01:35→19:45)
--- NOTE | 2018-11-04 03:04 | NUR ---
PT REMAIN TRACHED ON [facility] VENT ON CHARTED SETTINGS, NO RESP DISTRESS NOTED T/O SHIFT. ALARMS ARE SET AND AUDIBLE.VENT PLUGGED INTO RED OUTLET. AMBU BAG AND SPARE TRACH BEDSIDE. Addendum: 11/04/18 at 0438 by AMANDO RESENDEZ RT Amended: Links added.
[2018-11-04 06:00] VITALS: BP 120/40
[2018-11-04] MEDS: NEPRO 1,000 ML BOTTLE GT PRN (06:57)
[2018-11-04 07:24] LABS: BASOPHILS % (AUTO) 0.2 % (0.0-2.0); EOSINOPHILS % (AUTO) 2.3 % (0.0-6.0); HEMATOCRIT 30 % (33-45); HEMOGLOBIN 9.3 g/dL (11.5-14.8); LYMPHOCYTES # (AUTO) 1.6 /CMM (0.8-4.8); LYMPHOCYTES % (AUTO) 13.4 % (20.0-44.0); MEAN CORPUSCULAR HGB CONC 31 g/dl (31.0-36.0); MEAN CORPUSCULAR VOLUME 82 fL (82-100); MONOCYTES % (AUTO) 7.8 % (2.0-12.0); NEUTROPHILS # (AUTO) 9.3 /CMM (1.8-8.9); NEUTROPHILS % (AUTO) 76.3 % (43.0-81.0); PLATELET COUNT (AUTO) 241 /CMM (150-450); RED BLOOD CELL COUNT(AUTO) 3.63 MIL/uL (4.0-5.2); WHITE BLOOD COUNT (AUTO) 12.2 K/uL (4.3-11.0)
[2018-11-04 07:27] LABS: CALCIUM, SERUM 8.8 mg/dL (8.5-10.1); CARBON DIOXIDE 30 mmol/L (21-32); CHLORIDE 96 mmol/L (98-107); CREATININE 2.4 mg/dL (0.6-1.3); GLUCOSE 130 mg/dL (74-106); PHOSPHORUS 4.6 mg/dL (2.5-4.9); POTASSIUM 3.6 mmol/L (3.5-5.1); SODIUM SERUM 134 mmol/L (136-145)
[2018-11-04 07:30] LABS: UREA NITROGEN, BLOOD 83 mg/dL (7-18)
[2018-11-04 07:35] LABS: MAGNESIUM 4.4 mg/dL (1.8-2.4)
--- NOTE | 2018-11-04 08:14 | NUR ---
CBC and BMP result relayed to Dr. Patrick, no new order given.
[2018-11-04] MEDS: INSULIN DETEMIR 100 UNIT/ML CARTRIDGE SQ SCH ×2 (09:00→21:08)
[2018-11-04] MEDS: APIXABAN 2.5 MG TABLET GT SCH ×2 (09:00→20:56)
--- NOTE | 2018-11-04 09:00 | NUR ---
Seen and examined by. Dr. Agarwal, no new order given.
[2018-11-04] MEDS: DOCUSATE SODIUM LIQ 100 MG/10 ML UDC GT SCH (09:39)
[2018-11-04] MEDS: ACIDOPHILUS/BULGARICUS 1 EACH TAB.CHEW GT SCH ×2 (09:39→20:56)
[2018-11-04] MEDS: METOPROLOL TARTRATE 25 MG TABLET GT SCH ×2 (09:40→20:57)
[2018-11-04] MEDS: MULTIVIT W/MINERALS 1 TAB TABLET GT SCH (09:40)
[2018-11-04] MEDS: Z GUARD REMEDY 4 OZ OINT TP SCH ×4 (09:41→20:59)
[2018-11-04] MEDS: HYDROGEN PEROXIDE 480 ML BOTTLE TP SCH ×2 (09:41→10:00)
[2018-11-04] MEDS: NYSTATIN/TRIAMCIN 15 GM CREAM 15 GM TUBE TP SCH ×2 (09:41→20:58)
[2018-11-04] MEDS: VITS A AND D/WHITE PET/LANOLIN 5 GM PACKET TP SCH ×2 (09:42→20:59)
[2018-11-04 12:00] VITALS: BP 134/55
--- NOTE | 2018-11-04 15:35 | NUR ---
Left a message to Dr. Felton's office spoke with Mike relayed abnormal lab results. No call back from Dr. Felton. Pls f/u.
[2018-11-04 19:53] VITALS: BP 157/75
[2018-11-04 20:42] VITALS: BP 157/75
[2018-11-04] MEDS: SENNOSIDES 8.6 MG TABLET GT SCH (21:10)
--- NOTE | 2018-11-04 21:11 | NUR ---
BLOOD SUGAR CHECK AT 191
--- NOTE | 2018-11-04 23:55 | NUR ---
blood sugar check at 185
[2018-11-05] MEDS: IPRATROPIUM NEB FS 0.5 MG/2.5 ML AMPUL.NEB NEB SCH ×4 (00:38→19:35)
[2018-11-05 04:24] VITALS: BP 142/55
[2018-11-05] MEDS: METOCLOPRAMIDE HCL 10 MG TABLET GT SCH ×4 (05:45→23:29)
[2018-11-05] MEDS: BIOTENE MOISTURIZING MM SCH ×4 (05:47→23:30)
[2018-11-05 06:00] VITALS: BP 142/55
[2018-11-05] MEDS: INSULIN REGULAR, HUMAN 100 UNIT/ML 3 ML VIAL SQ PRN ×4 (06:05→23:32)
[2018-11-05] MEDS: BLOOD SUGAR DIAGNOSTIC 1 EACH STRIP IN SCH ×4 (06:07→23:30)
[2018-11-05] MEDS: NEPRO 1,000 ML BOTTLE GT PRN (07:09)
[2018-11-05 07:52] VITALS: BP 132/63
[2018-11-05] MEDS: VITS A AND D/WHITE PET/LANOLIN 5 GM PACKET TP SCH ×2 (09:00→21:59)
[2018-11-05] MEDS: NYSTATIN/TRIAMCIN 15 GM CREAM 15 GM TUBE TP SCH ×2 (09:00→21:59)
[2018-11-05] MEDS: Z GUARD REMEDY 4 OZ OINT TP SCH ×4 (09:00→21:59)
[2018-11-05] MEDS: HYDROGEN PEROXIDE 480 ML BOTTLE TP SCH ×2 (09:00→20:34)
[2018-11-05] MEDS: METOPROLOL TARTRATE 25 MG TABLET GT SCH ×2 (09:04→21:59)
[2018-11-05] MEDS: APIXABAN 2.5 MG TABLET GT SCH ×2 (09:05→21:58)
[2018-11-05] MEDS: ACIDOPHILUS/BULGARICUS 1 EACH TAB.CHEW GT SCH ×2 (09:06→21:58)
[2018-11-05] MEDS: INSULIN DETEMIR 100 UNIT/ML CARTRIDGE SQ SCH ×2 (09:13→22:00)
[2018-11-05] MEDS: DOCUSATE SODIUM LIQ 100 MG/10 ML UDC GT SCH (09:15)
[2018-11-05] MEDS: MULTIVIT W/MINERALS 1 TAB TABLET GT SCH (09:15)
--- NOTE | 2018-11-05 10:45 | NUR ---
Seen and examined resident and also reviewed BMP and CBC result done on 11/04/18, no new order given. Will continue with plan of care. Afebrile.
--- NOTE | 2018-11-05 11:20 | NUR ---
SW contacted patient's responsible alliance party-daughter, Jennifer Araiza [phone] to inform them that the IDT meeting took place 10/31/18 and that they are welcome to call the nursing station (ext. [phone]) for details or cloth picker a copy of IDT summary upon visiting the pt. Jennifer expressed understanding. Sw will be available to support pt. and family as needed.
[2018-11-05 12:00] VITALS: BP 132/63
[2018-11-05 18:00] VITALS: BP 142/68
--- NOTE | 2018-11-05 20:19 | NUR ---
PT RCVD TRACH'D ON MECHANICAL VENT WITH CHARTED SETTINGS. PT BIRDIE TX WELL. SX DONE. PT TRACH IS PATENT AND SECURE. VENT PLUGGED INTO RED OUTLET. ALARMS ARE ON AND AUDIBLE. AMBU BAG AT BED SIDE. NO SOB NOTED. Addendum: 11/05/18 at 2020 by FELICITAS CHRISTIE RT Amended: Links added.
[2018-11-05 20:20] VITALS: BP 139/55
[2018-11-05] MEDS: SENNOSIDES 8.6 MG TABLET GT SCH (22:00)
[2018-11-06 00:15] VITALS: BP 144/72
[2018-11-06] MEDS: IPRATROPIUM NEB FS 0.5 MG/2.5 ML AMPUL.NEB NEB SCH ×4 (00:35→19:39)
--- NOTE | 2018-11-06 05:51 | NUR ---
Patient PICC line discontinue/removed d/t partially out and unable to flushed both lumen. Addendum: 11/06/18 at 0554 by JENI BROWN RN Pressure dressing applied to site no bleeding noted.Will continue to monitor.
[2018-11-06] MEDS: NEPRO 1,000 ML BOTTLE GT PRN (06:00)
[2018-11-06] MEDS: BIOTENE MOISTURIZING MM SCH ×3 (06:00→17:31)
[2018-11-06] MEDS: METOCLOPRAMIDE HCL 10 MG TABLET GT SCH ×3 (06:00→17:31)
[2018-11-06] MEDS: BLOOD SUGAR DIAGNOSTIC 1 EACH STRIP IN SCH ×3 (06:00→17:31)
[2018-11-06] MEDS: INSULIN REGULAR, HUMAN 100 UNIT/ML 3 ML VIAL SQ PRN ×3 (06:02→17:33)
[2018-11-06 06:09] VITALS: BP 124/61
[2018-11-06 06:58] LABS: BASOPHILS % (AUTO) 0.3 % (0.0-2.0); EOSINOPHILS % (AUTO) 1.8 % (0.0-6.0); HEMATOCRIT 29 % (33-45); HEMOGLOBIN 9.5 g/dL (11.5-14.8); LYMPHOCYTES # (AUTO) 1.6 /CMM (0.8-4.8); LYMPHOCYTES % (AUTO) 13.5 % (20.0-44.0); MEAN CORPUSCULAR HGB CONC 32 g/dl (31.0-36.0); MEAN CORPUSCULAR VOLUME 80 fL (82-100); MONOCYTES # (AUTO) 0.8 /CMM (0.1-1.30); MONOCYTES % (AUTO) 6.8 % (2.0-12.0); NEUTROPHILS # (AUTO) 9.1 /CMM (1.8-8.9); NEUTROPHILS % (AUTO) 77.6 % (43.0-81.0); PLATELET COUNT (AUTO) 256 /CMM (150-450); RED BLOOD CELL COUNT(AUTO) 3.67 MIL/uL (4.0-5.2); WHITE BLOOD COUNT (AUTO) 11.7 K/uL (4.3-11.0)
[2018-11-06 07:51] VITALS: BP 128/69
[2018-11-06] MEDS: DOCUSATE SODIUM LIQ 100 MG/10 ML UDC GT SCH (08:45)
[2018-11-06] MEDS: ACIDOPHILUS/BULGARICUS 1 EACH TAB.CHEW GT SCH ×2 (08:45→21:43)
[2018-11-06] MEDS: APIXABAN 2.5 MG TABLET GT SCH ×2 (08:45→21:43)
[2018-11-06] MEDS: METOPROLOL TARTRATE 25 MG TABLET GT SCH ×2 (08:46→21:43)
[2018-11-06] MEDS: VITS A AND D/WHITE PET/LANOLIN 5 GM PACKET TP SCH ×2 (08:46→21:44)
[2018-11-06] MEDS: MULTIVIT W/MINERALS 1 TAB TABLET GT SCH (08:46)
[2018-11-06] MEDS: Z GUARD REMEDY 4 OZ OINT TP SCH ×4 (08:47→21:44)
[2018-11-06] MEDS: NYSTATIN/TRIAMCIN 15 GM CREAM 15 GM TUBE TP SCH ×2 (09:00→21:43)
[2018-11-06] MEDS: HYDROGEN PEROXIDE 480 ML BOTTLE TP SCH ×2 (09:05→21:00)
[2018-11-06] MEDS: INSULIN DETEMIR 100 UNIT/ML CARTRIDGE SQ SCH ×2 (09:15→21:54)
--- NOTE | 2018-11-06 11:00 | NUR ---
Relayed CBC result to Dr Aguirre. No new order.
[2018-11-06 12:00] VITALS: BP 136/66
--- NOTE | 2018-11-06 14:05 | NUR ---
RT NOTE PT RECEIVED ON [facility] VENT ON THE FOLLOWING NOTED SETTINGS. NO RESP DISTRESS NOTED AT THIS TIME. PT SX'D. BREATHING TX GIVEN, NO ADVERSE REACTIONS NOTED. VENT IS PLUGGED INTO RED OUTLET AND ALARMS ARE ON AND AUDIBLE. TRACH TIE AND GAUZE HAVE BEEN CHANGED. AMBU BAG AND SPARE TRACH ARE AT BEDSIDE. WILL CONT TO MONITOR PT. Addendum: 11/06/18 at 1408 by MEI SANTANA RT Amended: Links added.
[2018-11-06 18:00] VITALS: BP 123/56
[2018-11-06 20:15] VITALS: BP 114/40
[2018-11-06] MEDS: SENNOSIDES 8.6 MG TABLET GT SCH (21:44)
[2018-11-07] MEDS: BIOTENE MOISTURIZING MM SCH ×5 (00:03→23:23)
[2018-11-07] MEDS: METOCLOPRAMIDE HCL 10 MG TABLET GT SCH ×5 (00:03→23:23)
[2018-11-07] MEDS: BLOOD SUGAR DIAGNOSTIC 1 EACH STRIP IN SCH ×5 (00:03→23:23)
[2018-11-07] MEDS: INSULIN REGULAR, HUMAN 100 UNIT/ML 3 ML VIAL SQ PRN ×5 (00:05→23:25)
[2018-11-07 00:08] VITALS: BP 142/61
[2018-11-07] MEDS: IPRATROPIUM NEB FS 0.5 MG/2.5 ML AMPUL.NEB NEB SCH ×4 (01:36→19:25)
[2018-11-07] MEDS: NEPRO 1,000 ML BOTTLE GT PRN (05:32)
[2018-11-07 06:18] VITALS: BP 141/62
[2018-11-07 07:47] VITALS: BP 102/59
[2018-11-07] MEDS: METOPROLOL TARTRATE 25 MG TABLET GT SCH ×2 (09:00→21:00)
[2018-11-07] MEDS: HYDROGEN PEROXIDE 480 ML BOTTLE TP SCH ×2 (09:00→21:00)
[2018-11-07] MEDS: VITS A AND D/WHITE PET/LANOLIN 5 GM PACKET TP SCH ×2 (09:00→21:04)
[2018-11-07] MEDS: NYSTATIN/TRIAMCIN 15 GM CREAM 15 GM TUBE TP SCH ×2 (09:00→21:03)
[2018-11-07] MEDS: Z GUARD REMEDY 4 OZ OINT TP SCH ×4 (09:00→21:04)
[2018-11-07] MEDS: DOCUSATE SODIUM LIQ 100 MG/10 ML UDC GT SCH (09:54)
[2018-11-07] MEDS: ACIDOPHILUS/BULGARICUS 1 EACH TAB.CHEW GT SCH ×2 (09:55→21:02)
[2018-11-07] MEDS: MULTIVIT W/MINERALS 1 TAB TABLET GT SCH (09:55)
[2018-11-07] MEDS: APIXABAN 2.5 MG TABLET GT SCH ×2 (09:55→21:02)
[2018-11-07] MEDS: INSULIN DETEMIR 100 UNIT/ML CARTRIDGE SQ SCH ×2 (09:56→21:03)
[2018-11-07 12:00] VITALS: BP 108/70
[2018-11-07 18:53] VITALS: BP 106/54
[2018-11-07 20:00] VITALS: BP 108/60
[2018-11-07] MEDS: SENNOSIDES 8.6 MG TABLET GT SCH (21:04)
[2018-11-08 00:46] VITALS: BP 107/56
[2018-11-08] MEDS: IPRATROPIUM NEB FS 0.5 MG/2.5 ML AMPUL.NEB NEB SCH ×4 (01:39→19:28)
[2018-11-08] MEDS: METOCLOPRAMIDE HCL 10 MG TABLET GT SCH ×3 (06:11→17:55)
[2018-11-08] MEDS: BLOOD SUGAR DIAGNOSTIC 1 EACH STRIP IN SCH ×3 (06:11→17:55)
[2018-11-08] MEDS: BIOTENE MOISTURIZING MM SCH ×3 (06:12→17:55)
[2018-11-08] MEDS: INSULIN REGULAR, HUMAN 100 UNIT/ML 3 ML VIAL SQ PRN ×2 (06:14→17:56)
[2018-11-08 06:23] VITALS: BP 126/56
[2018-11-08] MEDS: NEPRO 1,000 ML BOTTLE GT PRN (06:24)
[2018-11-08 08:46] VITALS: BP 124/72
[2018-11-08] MEDS: NYSTATIN/TRIAMCIN 15 GM CREAM 15 GM TUBE TP SCH ×2 (09:00→20:35)
[2018-11-08] MEDS: VITS A AND D/WHITE PET/LANOLIN 5 GM PACKET TP SCH ×2 (09:00→20:35)
[2018-11-08] MEDS: HYDROGEN PEROXIDE 480 ML BOTTLE TP SCH ×2 (09:00→20:35)
[2018-11-08] MEDS: Z GUARD REMEDY 4 OZ OINT TP SCH ×4 (09:00→20:35)
[2018-11-08] MEDS: ACIDOPHILUS/BULGARICUS 1 EACH TAB.CHEW GT SCH ×2 (09:56→20:34)
[2018-11-08] MEDS: APIXABAN 2.5 MG TABLET GT SCH ×2 (09:56→21:14)
[2018-11-08] MEDS: DOCUSATE SODIUM LIQ 100 MG/10 ML UDC GT SCH (09:56)
[2018-11-08] MEDS: MULTIVIT W/MINERALS 1 TAB TABLET GT SCH (09:56)
[2018-11-08] MEDS: METOPROLOL TARTRATE 25 MG TABLET GT SCH ×2 (09:56→20:34)
[2018-11-08] MEDS: INSULIN DETEMIR 100 UNIT/ML CARTRIDGE SQ SCH ×2 (09:57→21:14)
[2018-11-08 12:00] VITALS: BP 128/74
--- NOTE | 2018-11-08 17:00 | NUR ---
Left a message to Dr. Carmona to reassess GT site which is red and with hypergranulation tissue in the stoma. MD acknowledged receiving the message. Resident's sister came to visit patient today.
[2018-11-08 18:00] VITALS: BP 119/74
[2018-11-08 19:53] VITALS: BP 119/59
[2018-11-08] MEDS: SENNOSIDES 8.6 MG TABLET GT SCH (21:14)
[2018-11-09] MEDS: BLOOD SUGAR DIAGNOSTIC 1 EACH STRIP IN SCH ×4 (00:22→17:48)
[2018-11-09] MEDS: METOCLOPRAMIDE HCL 10 MG TABLET GT SCH ×4 (00:22→17:48)
[2018-11-09] MEDS: BIOTENE MOISTURIZING MM SCH ×4 (00:23→17:48)
[2018-11-09] MEDS: INSULIN REGULAR, HUMAN 100 UNIT/ML 3 ML VIAL SQ PRN ×4 (00:29→17:50)
[2018-11-09 00:34] VITALS: BP 108/48
[2018-11-09] MEDS: IPRATROPIUM NEB FS 0.5 MG/2.5 ML AMPUL.NEB NEB SCH ×4 (01:40→19:54)
[2018-11-09 06:03] VITALS: BP 104/50
[2018-11-09] MEDS: NEPRO 1,000 ML BOTTLE GT PRN (06:26)
[2018-11-09 07:51] VITALS: BP 85/41
[2018-11-09] MEDS: ACIDOPHILUS/BULGARICUS 1 EACH TAB.CHEW GT SCH ×2 (08:58→20:40)
[2018-11-09] MEDS: APIXABAN 2.5 MG TABLET GT SCH ×2 (08:58→20:40)
[2018-11-09] MEDS: DOCUSATE SODIUM LIQ 100 MG/10 ML UDC GT SCH (08:58)
[2018-11-09] MEDS: METOPROLOL TARTRATE 25 MG TABLET GT SCH ×2 (08:58→20:42)
[2018-11-09] MEDS: MULTIVIT W/MINERALS 1 TAB TABLET GT SCH (08:59)
[2018-11-09] MEDS: INSULIN DETEMIR 100 UNIT/ML CARTRIDGE SQ SCH ×2 (08:59→21:29)
[2018-11-09] MEDS: HYDROGEN PEROXIDE 480 ML BOTTLE TP SCH ×2 (09:00→21:00)
[2018-11-09] MEDS: Z GUARD REMEDY 4 OZ OINT TP SCH ×4 (09:46→20:43)
[2018-11-09] MEDS: NYSTATIN/TRIAMCIN 15 GM CREAM 15 GM TUBE TP SCH ×2 (09:46→20:43)
[2018-11-09] MEDS: VITS A AND D/WHITE PET/LANOLIN 5 GM PACKET TP SCH ×2 (09:47→20:43)
[2018-11-09 15:15] VITALS: BP 101/62
[2018-11-09 18:15] VITALS: BP 116/55
--- NOTE | 2018-11-09 18:34 | NUR ---
Resident around G-tube site still red and hard to touch, with granulation on GT stoma and leaks at times. Pls. F/u with Dr. Carmona when he comes to see the patient. Afebrile. Stable vital signs. Will continue to monitor.
[2018-11-09] MEDS: BISACODYL SUPP (10 MG) 10 MG/SUPP.RECT SUPP.RECT RC PRN (18:49)
[2018-11-09 19:47] VITALS: BP 106/59
--- NOTE | 2018-11-09 19:54 | NUR ---
PT RECEIVED WITH A SHILEY 8 TRACH ON THE VENT WITH NOTED SETTINGS. PT IS RESPONDS TO STIMULI WHEN SX'D. VENT ALARMS ARE SET AND AUDIBLE WITH AMBU BAG BY BEDSIDE. DESIGNER CUFF PRESSURE NOTED. VENT IS PLUGGED INTO RED OUTLET. HHN TX GIVEN WITH NO ADVERSE REACTIONS. NO RESPIRATORY DISTRESS NOTED AT THIS TIME, WILL CONTINUE TO MONITOR.
[2018-11-09] MEDS: SENNOSIDES 8.6 MG TABLET GT SCH (21:29)
[2018-11-10] MEDS: BLOOD SUGAR DIAGNOSTIC 1 EACH STRIP IN SCH ×4 (00:14→17:03)
[2018-11-10] MEDS: METOCLOPRAMIDE HCL 10 MG TABLET GT SCH ×4 (00:14→17:03)
[2018-11-10] MEDS: BIOTENE MOISTURIZING MM SCH ×4 (00:14→17:03)
[2018-11-10] MEDS: INSULIN REGULAR, HUMAN 100 UNIT/ML 3 ML VIAL SQ PRN ×4 (00:15→17:35)
[2018-11-10 00:27] VITALS: BP 110/68
[2018-11-10] MEDS: IPRATROPIUM NEB FS 0.5 MG/2.5 ML AMPUL.NEB NEB SCH ×4 (01:31→19:27)
[2018-11-10] MEDS: NEPRO 1,000 ML BOTTLE GT PRN (05:18)
[2018-11-10 06:18] VITALS: BP 113/73
[2018-11-10 07:40] VITALS: BP 110/42
[2018-11-10] MEDS: DOCUSATE SODIUM LIQ 100 MG/10 ML UDC GT SCH (09:21)
[2018-11-10] MEDS: ACIDOPHILUS/BULGARICUS 1 EACH TAB.CHEW GT SCH ×2 (09:21→20:36)
[2018-11-10] MEDS: APIXABAN 2.5 MG TABLET GT SCH ×2 (09:21→20:36)
[2018-11-10] MEDS: METOPROLOL TARTRATE 25 MG TABLET GT SCH ×2 (09:22→20:36)
[2018-11-10] MEDS: INSULIN DETEMIR 100 UNIT/ML CARTRIDGE SQ SCH ×2 (09:22→20:44)
[2018-11-10] MEDS: MULTIVIT W/MINERALS 1 TAB TABLET GT SCH (09:22)
[2018-11-10] MEDS: VITS A AND D/WHITE PET/LANOLIN 5 GM PACKET TP SCH ×2 (09:23→20:44)
[2018-11-10] MEDS: NYSTATIN/TRIAMCIN 15 GM CREAM 15 GM TUBE TP SCH ×2 (09:23→20:37)
[2018-11-10] MEDS: Z GUARD REMEDY 4 OZ OINT TP SCH ×4 (09:23→20:44)
[2018-11-10] MEDS: HYDROGEN PEROXIDE 480 ML BOTTLE TP SCH ×2 (11:10→21:00)
[2018-11-10 12:00] VITALS: BP 126/64
--- NOTE | 2018-11-10 12:00 | NUR ---
Seen by Dr Carmona. Pt's GT site red with granulation and small amount of leaking. Dr Carmona said he might schedule pt for a new G-tube ostomy site.
--- NOTE | 2018-11-10 16:13 | NUR ---
RT END OF THE SHIFT REPORT, PT. 83 Y OLD FEMALE REC. 0700 AM AWAKE BUT NOT RESPONSIVE. PT. IS TRACH'D SHILEY # 8 ON [facility] VENT. WITH NOTED AC MODE. NO RESP DISTRESS NOR SOB NOTED. EQUAL CHEST RISE NOTED, B/S RHONCHI BILATERALLY SX'D FOR LARGE AMT. WHITE SECRETIONS. TX'S GIVEN INLINE AND NO ADVERSE REACTION, TRACH CARE DONE. INNER CANULA CHANGED. ALARMS ARE SET AND FUNCTIONAL. VENT PLUGGED INTO RED OUTLET. HME CHANGED ASSOCIATE PROFESSOR OF AUTOMATION DONE. AMBU BAG REMAIN AT THE BEDSIDE. REPORT WILL PASS TO PM SHIFT. Addendum: 11/10/18 at 1614 by HORACIO ZALDIVAR RT Amended: Links added.
[2018-11-10 18:00] VITALS: BP 123/55
[2018-11-10 20:33] VITALS: BP 127/55
[2018-11-10] MEDS: SENNOSIDES 8.6 MG TABLET GT SCH (22:52)
--- NOTE | 2018-11-11 | NUR ---
RN NOTES Placed pt NPO as ordered. IV inserted to right upper arm, aseptic technique observed. Started on IVF D5NS at 75ml/hr.
[2018-11-11] MEDS: METOCLOPRAMIDE HCL 10 MG TABLET GT SCH ×4 (00:32→17:44)
[2018-11-11] MEDS: BLOOD SUGAR DIAGNOSTIC 1 EACH STRIP IN SCH ×4 (00:32→18:11)
[2018-11-11] MEDS: INSULIN REGULAR, HUMAN 100 UNIT/ML 3 ML VIAL SQ PRN ×3 (00:33→18:12)
[2018-11-11] MEDS: BIOTENE MOISTURIZING MM SCH ×4 (00:33→17:44)
[2018-11-11 01:01] VITALS: BP 137/68
[2018-11-11] MEDS: IPRATROPIUM NEB FS 0.5 MG/2.5 ML AMPUL.NEB NEB SCH ×4 (01:04→19:23)
[2018-11-11] MEDS: NEPRO 1,000 ML BOTTLE GT PRN (05:26)
[2018-11-11 06:22] VITALS: BP 129/67
[2018-11-11 06:48] LABS: CALCIUM, SERUM 8.9 mg/dL (8.5-10.1); CARBON DIOXIDE 28 mmol/L (21-32); CHLORIDE 98 mmol/L (98-107); CREATININE 2.5 mg/dL (0.6-1.3); GLUCOSE 184 mg/dL (74-106); PHOSPHORUS 4.7 mg/dL (2.5-4.9); POTASSIUM 3.9 mmol/L (3.5-5.1); SODIUM SERUM 136 mmol/L (136-145)
[2018-11-11 06:51] LABS: UREA NITROGEN, BLOOD 83 mg/dL (7-18)
[2018-11-11 07:03] LABS: MAGNESIUM 4.4 mg/dL (1.8-2.4)
[2018-11-11 07:59] VITALS: BP 126/67
[2018-11-11] MEDS: APIXABAN 2.5 MG TABLET GT SCH ×2 (09:03→20:32)
[2018-11-11] MEDS: ACIDOPHILUS/BULGARICUS 1 EACH TAB.CHEW GT SCH ×2 (09:03→20:32)
[2018-11-11] MEDS: DOCUSATE SODIUM LIQ 100 MG/10 ML UDC GT SCH (09:03)
[2018-11-11] MEDS: METOPROLOL TARTRATE 25 MG TABLET GT SCH ×2 (09:04→20:34)
[2018-11-11] MEDS: INSULIN DETEMIR 100 UNIT/ML CARTRIDGE SQ SCH ×2 (09:04→20:35)
[2018-11-11] MEDS: MULTIVIT W/MINERALS 1 TAB TABLET GT SCH (09:04)
[2018-11-11] MEDS: VITS A AND D/WHITE PET/LANOLIN 5 GM PACKET TP SCH ×2 (09:24→20:36)
[2018-11-11] MEDS: NYSTATIN/TRIAMCIN 15 GM CREAM 15 GM TUBE TP SCH ×2 (09:24→20:35)
[2018-11-11] MEDS: Z GUARD REMEDY 4 OZ OINT TP SCH ×4 (09:24→20:36)
[2018-11-11] MEDS: HYDROGEN PEROXIDE 480 ML BOTTLE TP SCH ×2 (09:27→21:00)
--- NOTE | 2018-11-11 10:30 | NUR ---
Seen by Dr Agarwal. Relayed lab results to him. No new order.
--- NOTE | 2018-11-11 14:00 | NUR ---
Dr Carmona will do PEG replacement with debridement tomorrow. Notified Dr Patrick and he ordered to add CBC to labs this AM, PT, PTT. Addendum: 11/11/18 at 1740 by MARCELLA MITCHELL RN Pt's daughter Jennifer aware of procedure.
[2018-11-11 15:44] VITALS: BP 130/65
[2018-11-11 16:48] LABS: BASOPHILS # (AUTO) 0.1 /CMM (0.0-0.2); BASOPHILS % (AUTO) 0.6 % (0.0-2.0); EOSINOPHILS % (AUTO) 1.6 % (0.0-6.0); HEMATOCRIT 29 % (33-45); HEMOGLOBIN 9.1 g/dL (11.5-14.8); LYMPHOCYTES # (AUTO) 1.9 /CMM (0.8-4.8); LYMPHOCYTES % (AUTO) 20.7 % (20.0-44.0); MEAN CORPUSCULAR HGB CONC 32 g/dl (31.0-36.0); MEAN CORPUSCULAR VOLUME 82 fL (82-100); MONOCYTES # (AUTO) 0.7 /CMM (0.1-1.30); MONOCYTES % (AUTO) 7.5 % (2.0-12.0); NEUTROPHILS # (AUTO) 6.3 /CMM (1.8-8.9); NEUTROPHILS % (AUTO) 69.6 % (43.0-81.0); PLATELET COUNT (AUTO) 323 /CMM (150-450); RED BLOOD CELL COUNT(AUTO) 3.53 MIL/uL (4.0-5.2)
[2018-11-11 18:17] VITALS: BP 143/68
[2018-11-11 20:33] VITALS: BP 111/80
[2018-11-11] MEDS ORDERED: IV 1/2NS 1000 ML 1,000 ML IV PRN (21:00)
[2018-11-11] MEDS: SENNOSIDES 8.6 MG TABLET GT SCH (22:40)
[2018-11-11] MEDS ORDERED: IV D5/ 0.9% NACL 1,000 ML IV ONE (23:30)
[2018-11-12] MEDS: METOCLOPRAMIDE HCL 10 MG TABLET GT SCH ×4 (00:08→17:31)
[2018-11-12] MEDS: BLOOD SUGAR DIAGNOSTIC 1 EACH STRIP IN SCH ×4 (00:09→17:31)
[2018-11-12] MEDS: INSULIN REGULAR, HUMAN 100 UNIT/ML 3 ML VIAL SQ PRN ×4 (00:10→17:32)
[2018-11-12 00:17] VITALS: BP 135/70
[2018-11-12] MEDS: BIOTENE MOISTURIZING MM SCH ×4 (00:22→17:31)
[2018-11-12] MEDS: IPRATROPIUM NEB FS 0.5 MG/2.5 ML AMPUL.NEB NEB SCH ×4 (02:03→21:21)
[2018-11-12 06:16] VITALS: BP 158/76
--- NOTE | 2018-11-12 06:20 | NUR ---
Pt f/c was clamped q 2hrs for 30min, after un clamping the f/c its still draining well with an output of 750cc of clear yellowish urine, PT f/c gonna be clamp for 24 hrs and D/C .
[2018-11-12 08:08] VITALS: BP 140/56
[2018-11-12] MEDS: INSULIN DETEMIR 100 UNIT/ML CARTRIDGE SQ SCH ×2 (09:00→21:16)
[2018-11-12] MEDS: DOCUSATE SODIUM LIQ 100 MG/10 ML UDC GT SCH (09:41)
[2018-11-12] MEDS: ACIDOPHILUS/BULGARICUS 1 EACH TAB.CHEW GT SCH ×2 (09:41→20:47)
[2018-11-12] MEDS: NYSTATIN/TRIAMCIN 15 GM CREAM 15 GM TUBE TP SCH ×2 (09:42→21:20)
[2018-11-12] MEDS: VITS A AND D/WHITE PET/LANOLIN 5 GM PACKET TP SCH ×2 (09:42→21:21)
[2018-11-12] MEDS: Z GUARD REMEDY 4 OZ OINT TP SCH ×4 (09:42→21:20)
[2018-11-12] MEDS: MULTIVIT W/MINERALS 1 TAB TABLET GT SCH (09:42)
[2018-11-12] MEDS: METOPROLOL TARTRATE 25 MG TABLET GT SCH ×2 (09:42→20:47)
[2018-11-12 12:00] VITALS: BP_SYST 104; BP_SYST 140; BP_DIAS 48; BP_DIAS 56
[2018-11-12] MEDS ORDERED: MIDAZOLAM HCL 2 MG/2ML VIAL ONE (12:49)
[2018-11-12] MEDS ORDERED: FENTANYL PF 100MCG/2ML AMPUL ONE (12:50)
[2018-11-12] MEDS ORDERED: ROCURONIUM BROMIDE 50 MG/5 ML ONE (12:50)
[2018-11-12] MEDS ORDERED: FAMOTIDINE/PF INJ 20 MG/2 ML VIAL IV ONE (12:50)
--- NOTE | 2018-11-12 18:00 | NUR ---
Resident had a removal of the old PEG tube with debridement and closure and placement of the new PEG tube done. Patient stable, according to recovery nurse, he gave 250 ml of NS to keep BP up as it was it the low 90's. Per Dr. Carmona's notes and order to continue with the current IVF at 75cc/hr., GT feeding to start in AM and resume all previous order after recovery. Dr. Patrick made aware that patient had her procedure done today. Asked if he would like to resume Eliquis 2.5 mg as this was discontinued before the procedure, resumed Eliquis. OBSTETRICS TEACHER Stephanie Miller came to see patient and inquired about the surgery, she said to continue everything that Dr. Carmona previously ordered and will follow-up with patient tomorrow.
[2018-11-12 20:00] VITALS: BP 111/65
[2018-11-12 20:32] VITALS: BP 111/65
[2018-11-12] MEDS: HYDROGEN PEROXIDE 480 ML BOTTLE TP SCH (21:00)
[2018-11-12] MEDS: SENNOSIDES 8.6 MG TABLET GT SCH (21:21)
[2018-11-13] VITALS: BP 128/61
[2018-11-13] MEDS: BIOTENE MOISTURIZING MM SCH ×4 (01:19→17:19)
[2018-11-13] MEDS: INSULIN REGULAR, HUMAN 100 UNIT/ML 3 ML VIAL SQ PRN ×3 (01:24→17:20)
[2018-11-13] MEDS: IPRATROPIUM NEB FS 0.5 MG/2.5 ML AMPUL.NEB NEB SCH ×4 (02:34→19:25)
[2018-11-13] MEDS: METOCLOPRAMIDE HCL 10 MG TABLET GT SCH ×4 (05:52→17:19)
[2018-11-13] MEDS: BLOOD SUGAR DIAGNOSTIC 1 EACH STRIP IN SCH ×4 (05:53→17:19)
[2018-11-13 06:13] VITALS: BP 126/56
--- NOTE | 2018-11-13 06:19 | NUR ---
Patient figueroa catheter removed as ordered.Will monitor urine output.Discontinue IV hydration ,to start GT feeding today,will endorse.
[2018-11-13 07:57] VITALS: BP 132/65
[2018-11-13] MEDS: Z GUARD REMEDY 4 OZ OINT TP SCH ×4 (09:00→21:18)
[2018-11-13] MEDS: NYSTATIN/TRIAMCIN 15 GM CREAM 15 GM TUBE TP SCH ×2 (09:00→21:18)
[2018-11-13] MEDS: VITS A AND D/WHITE PET/LANOLIN 5 GM PACKET TP SCH ×2 (09:00→21:18)
[2018-11-13] MEDS: DOCUSATE SODIUM LIQ 100 MG/10 ML UDC GT SCH (09:10)
[2018-11-13] MEDS: METOPROLOL TARTRATE 25 MG TABLET GT SCH ×2 (09:11→21:18)
[2018-11-13] MEDS: APIXABAN 2.5 MG TABLET GT SCH ×2 (09:11→17:19)
[2018-11-13] MEDS: ACIDOPHILUS/BULGARICUS 1 EACH TAB.CHEW GT SCH ×2 (09:11→21:17)
[2018-11-13] MEDS: MULTIVIT W/MINERALS 1 TAB TABLET GT SCH (09:11)
[2018-11-13] MEDS: INSULIN DETEMIR 100 UNIT/ML CARTRIDGE SQ SCH ×2 (09:12→21:37)
[2018-11-13] MEDS: HYDROGEN PEROXIDE 480 ML BOTTLE TP SCH ×2 (09:42→21:59)
[2018-11-13 12:00] VITALS: BP 132/65
[2018-11-13] MEDS: MAGNESIUM HYDROXIDE 30 ML UDC GT PRN (17:25)
[2018-11-13 18:39] VITALS: BP 110/58
[2018-11-13] MEDS: BISACODYL SUPP (10 MG) 10 MG/SUPP.RECT SUPP.RECT RC PRN (18:48)
[2018-11-13 20:12] VITALS: BP 134/53
--- NOTE | 2018-11-13 21:00 | NUR ---
Seen by Maria Fernanda Mata Np no new orders.
[2018-11-13] MEDS: SENNOSIDES 8.6 MG TABLET GT SCH (21:18)
--- NOTE | 2018-11-13 22:00 | NUR ---
Pt GT old GT site measures 7.5x 3.5x2.8 cm ,no drainage noted.With order to do wet to dry dressing q shift x [address] Carmona.Will carried out order.
[2018-11-14] MEDS: METOCLOPRAMIDE HCL 10 MG TABLET GT SCH ×5 (00:29→23:49)
[2018-11-14] MEDS: BLOOD SUGAR DIAGNOSTIC 1 EACH STRIP IN SCH ×5 (00:29→23:49)
[2018-11-14] MEDS: BIOTENE MOISTURIZING MM SCH ×5 (00:30→23:49)
[2018-11-14] MEDS: INSULIN REGULAR, HUMAN 100 UNIT/ML 3 ML VIAL SQ PRN ×5 (00:31→23:51)
[2018-11-14 00:32] VITALS: BP 108/51
[2018-11-14] MEDS: IPRATROPIUM NEB FS 0.5 MG/2.5 ML AMPUL.NEB NEB SCH ×4 (00:40→19:52)
[2018-11-14] MEDS: NEPRO 1,000 ML BOTTLE GT PRN (05:54)
[2018-11-14 06:08] VITALS: BP 147/75
[2018-11-14 07:28] VITALS: BP 153/60
--- NOTE | 2018-11-14 08:34 | NUR ---
Followed-up with Dr. Carmona if and when he will close the wound from the old GT site which is measuring 7.5x3.2x2.8, he said it will need regular wound care and suturing will not be done right away. He said he will come to see patient today. Resident's daughter made aware of the open wound from the old GT site. Appreciated the call. Offered to take a look at the wound photo when she comes and said she will.
[2018-11-14] MEDS: HYDROGEN PEROXIDE 480 ML BOTTLE TP SCH ×2 (09:00→21:00)
[2018-11-14] MEDS: DOCUSATE SODIUM LIQ 100 MG/10 ML UDC GT SCH (09:05)
[2018-11-14] MEDS: APIXABAN 2.5 MG TABLET GT SCH ×2 (09:07→17:02)
[2018-11-14] MEDS: ACIDOPHILUS/BULGARICUS 1 EACH TAB.CHEW GT SCH ×2 (09:07→21:08)
[2018-11-14] MEDS: NYSTATIN/TRIAMCIN 15 GM CREAM 15 GM TUBE TP SCH ×2 (09:08→21:11)
[2018-11-14] MEDS: INSULIN DETEMIR 100 UNIT/ML CARTRIDGE SQ SCH ×2 (09:08→21:11)
[2018-11-14] MEDS: MULTIVIT W/MINERALS 1 TAB TABLET GT SCH (09:08)
[2018-11-14] MEDS: METOPROLOL TARTRATE 25 MG TABLET GT SCH ×2 (09:08→21:00)
[2018-11-14] MEDS: Z GUARD REMEDY 4 OZ OINT TP SCH ×4 (09:09→21:11)
[2018-11-14] MEDS: VITS A AND D/WHITE PET/LANOLIN 5 GM PACKET TP SCH ×2 (09:09→21:11)
--- NOTE | 2018-11-14 09:24 | NUR ---
Seen by VIDEO GAME ENGINEER Beatrice Krishnamurthy, made aware that patient has an open wound from the old GT site & requested to assess wound if patient will require ATB. VIDEO GAME ENGINEER assessed open wound and said she will not put her on ATB yet, but to continue with local treatment.
[2018-11-14 12:00] VITALS: BP 128/79
--- NOTE | 2018-11-14 17:30 | NUR ---
Resident's daughter Jennifer visited patient. She saw the photo of the old GT site with open wound. At this time, the plan is to continue with local treatment, no ATB and will monitor the site for now. Appreciated the update given.
[2018-11-14 18:37] VITALS: BP 136/55
[2018-11-14 20:10] VITALS: BP 101/43
[2018-11-14] MEDS: SENNOSIDES 8.6 MG TABLET GT SCH (21:11)
--- NOTE | 2018-11-14 21:51 | NUR ---
RT NOTE PT RECEIVED TRACHED ON MECHANICAL VENTILATION. AMBU BAG/BACK UP TRACH @ BEDSIDE. TX GIVEN, NO ADVERSE REACTIONS NOTED. SX DONE, TRACH SECURED AND PATENT. ALARMS ON AND AUDIBLE. CONT. POX @ BEDSIDE. WILL MONITOR. Addendum: 11/14/18 at 2156 by MANOLO MCDONNELL RT Amended: Links added.
[2018-11-15 00:32] VITALS: BP 114/56
[2018-11-15] MEDS: IPRATROPIUM NEB FS 0.5 MG/2.5 ML AMPUL.NEB NEB SCH ×4 (00:40→19:37)
[2018-11-15] MEDS: METOCLOPRAMIDE HCL 10 MG TABLET GT SCH ×3 (05:54→17:26)
[2018-11-15] MEDS: BIOTENE MOISTURIZING MM SCH ×3 (05:55→17:43)
[2018-11-15] MEDS: BLOOD SUGAR DIAGNOSTIC 1 EACH STRIP IN SCH ×3 (05:55→17:41)
[2018-11-15] MEDS: NEPRO 1,000 ML BOTTLE GT PRN (05:56)
[2018-11-15] MEDS: INSULIN REGULAR, HUMAN 100 UNIT/ML 3 ML VIAL SQ PRN ×4 (05:57→22:04)
[2018-11-15 06:06] VITALS: BP 141/63
[2018-11-15 08:06] VITALS: BP 132/68
--- NOTE | 2018-11-15 08:41 | NUR ---
RT NOTE PT REC'D TRACHED ON MECHANICAL VENTILATION. AMBU BAG/BACK UP TRACH @ BEDSIDE. TX GIVEN, NO ADVERSE REACTIONS NOTED. SX DONE, TRACH SECURED AND PATENT. ALARMS ON AND AUDIBLE. VENT PLUGGED IN RED OUTLET. NO SOB NOTED AT THIS TIME. CONTINUOS POX @ BEDSIDE. WILL MONITOR. Addendum: 11/15/18 at 0843 by FLORINDA TSE RT Amended: Links added.
[2018-11-15] MEDS: Z GUARD REMEDY 4 OZ OINT TP SCH ×4 (09:00→21:20)
[2018-11-15] MEDS: NYSTATIN/TRIAMCIN 15 GM CREAM 15 GM TUBE TP SCH ×2 (09:00→21:20)
[2018-11-15] MEDS: INSULIN DETEMIR 100 UNIT/ML CARTRIDGE SQ SCH ×2 (09:00→22:04)
[2018-11-15] MEDS: VITS A AND D/WHITE PET/LANOLIN 5 GM PACKET TP SCH ×2 (09:00→21:20)
[2018-11-15] MEDS: HYDROGEN PEROXIDE 480 ML BOTTLE TP SCH ×2 (09:05→21:19)
[2018-11-15] MEDS: DOCUSATE SODIUM LIQ 100 MG/10 ML UDC GT SCH (09:23)
[2018-11-15] MEDS: APIXABAN 2.5 MG TABLET GT SCH ×2 (09:23→17:26)
[2018-11-15] MEDS: ACIDOPHILUS/BULGARICUS 1 EACH TAB.CHEW GT SCH ×2 (09:24→21:18)
[2018-11-15] MEDS: METOPROLOL TARTRATE 25 MG TABLET GT SCH ×2 (09:25→21:19)
[2018-11-15] MEDS: MULTIVIT W/MINERALS 1 TAB TABLET GT SCH (09:33)
[2018-11-15 12:00] VITALS: BP 105/57
[2018-11-15 18:00] VITALS: BP 94/68
[2018-11-15 20:03] VITALS: BP 115/56
[2018-11-15] MEDS: SENNOSIDES 8.6 MG TABLET GT SCH (22:04)
[2018-11-16] VITALS: BP 132/60
[2018-11-16] MEDS: BLOOD SUGAR DIAGNOSTIC 1 EACH STRIP IN SCH ×4 (00:22→18:22)
[2018-11-16] MEDS: METOCLOPRAMIDE HCL 10 MG TABLET GT SCH ×4 (00:22→18:22)
[2018-11-16] MEDS: BIOTENE MOISTURIZING MM SCH ×4 (00:23→18:24)
[2018-11-16] MEDS: IPRATROPIUM NEB FS 0.5 MG/2.5 ML AMPUL.NEB NEB SCH ×4 (01:30→20:58)
[2018-11-16 06:00] VITALS: BP 146/63
[2018-11-16] MEDS: INSULIN REGULAR, HUMAN 100 UNIT/ML 3 ML VIAL SQ PRN ×3 (06:27→18:23)
[2018-11-16 08:02] VITALS: BP 150/67
[2018-11-16] MEDS: HYDROGEN PEROXIDE 480 ML BOTTLE TP SCH ×2 (09:00→21:58)
[2018-11-16] MEDS: Z GUARD REMEDY 4 OZ OINT TP SCH ×4 (09:00→21:45)
[2018-11-16] MEDS: NYSTATIN/TRIAMCIN 15 GM CREAM 15 GM TUBE TP SCH ×2 (09:00→21:45)
[2018-11-16] MEDS: VITS A AND D/WHITE PET/LANOLIN 5 GM PACKET TP SCH ×2 (09:00→21:46)
[2018-11-16] MEDS: DOCUSATE SODIUM LIQ 100 MG/10 ML UDC GT SCH (09:35)
[2018-11-16] MEDS: ACIDOPHILUS/BULGARICUS 1 EACH TAB.CHEW GT SCH ×2 (09:35→21:44)
[2018-11-16] MEDS: APIXABAN 2.5 MG TABLET GT SCH ×2 (09:35→16:56)
[2018-11-16] MEDS: METOPROLOL TARTRATE 25 MG TABLET GT SCH ×2 (09:36→21:45)
[2018-11-16] MEDS: MULTIVIT W/MINERALS 1 TAB TABLET GT SCH (09:36)
[2018-11-16] MEDS: INSULIN DETEMIR 100 UNIT/ML CARTRIDGE SQ SCH ×2 (09:55→21:45)
[2018-11-16 12:00] VITALS: BP 156/43
[2018-11-16] MEDS: NEPRO 1,000 ML BOTTLE GT PRN (12:34)
[2018-11-16] MEDS: ASCORBIC ACID 500 MG TABLET GT SCH (14:58)
--- NOTE | 2018-11-16 17:41 | NUR ---
Seen and examined by Dr. Patrick. Informed MD that patient has a new PEG in a different location and has an abdominal wound from the old GT site. He said to follow-up with regarding wound treatment and ordered Vit C, Prostat and Zinc sulfate supplement for wound healing. Left a message to daughter's VM regarding new orders.
[2018-11-16 18:40] VITALS: BP 147/53
[2018-11-16 20:36] VITALS: BP 143/52
[2018-11-16] MEDS: SENNOSIDES 8.6 MG TABLET GT SCH (21:46)
--- NOTE | 2018-11-16 21:59 | NUR ---
PT REC'D TRACHED ON [facility] VENT ON AC MODE. NO RESP DISTRESS OR SOB NOTED. TRACH IS PATENT AND SECURED. SX'D FOR MOD AMT OF PALE YELLOW SECRETIONS. ALARMS ARE SET AND AUDIBLE. VENT PLUGGED INTO RED OUTLET, AMBU BAG BEDSIDE. Addendum: 11/16/18 at 2200 by TALA YAO RT Amended: Links added.
[2018-11-17] VITALS: BP 139/63
[2018-11-17] MEDS: BLOOD SUGAR DIAGNOSTIC 1 EACH STRIP IN SCH ×4 (00:33→18:03)
[2018-11-17] MEDS: BIOTENE MOISTURIZING MM SCH ×4 (00:33→18:03)
[2018-11-17] MEDS: METOCLOPRAMIDE HCL 10 MG TABLET GT SCH ×4 (00:33→17:35)
[2018-11-17] MEDS: INSULIN REGULAR, HUMAN 100 UNIT/ML 3 ML VIAL SQ PRN ×4 (00:35→18:04)
[2018-11-17] MEDS: IPRATROPIUM NEB FS 0.5 MG/2.5 ML AMPUL.NEB NEB SCH ×4 (02:34→19:24)
[2018-11-17] MEDS: CLONIDINE HCL 0.1 MG TABLET GT PRN (05:20)
[2018-11-17 06:00] VITALS: BP 162/64
[2018-11-17 07:40] VITALS: BP 125/53
[2018-11-17] MEDS: NEPRO 1,000 ML BOTTLE GT PRN (08:58)
[2018-11-17] MEDS: HYDROGEN PEROXIDE 480 ML BOTTLE TP SCH ×2 (09:00→21:00)
[2018-11-17] MEDS: DOCUSATE SODIUM LIQ 100 MG/10 ML UDC GT SCH (09:05)
[2018-11-17] MEDS: ACIDOPHILUS/BULGARICUS 1 EACH TAB.CHEW GT SCH ×2 (09:05→20:19)
[2018-11-17] MEDS: APIXABAN 2.5 MG TABLET GT SCH ×2 (09:05→17:35)
[2018-11-17] MEDS: ZINC SULFATE 220 MG CAPSULE GT SCH (09:05)
[2018-11-17] MEDS: METOPROLOL TARTRATE 25 MG TABLET GT SCH ×2 (09:05→20:21)
[2018-11-17] MEDS: ASCORBIC ACID 500 MG TABLET GT SCH (09:05)
[2018-11-17] MEDS: PROSOURCE / PROSTAT (PYXIS) 30 ML UDC GT SCH (09:05)
[2018-11-17] MEDS: MULTIVIT W/MINERALS 1 TAB TABLET GT SCH (09:05)
[2018-11-17] MEDS: INSULIN DETEMIR 100 UNIT/ML CARTRIDGE SQ SCH ×2 (09:06→20:22)
[2018-11-17] MEDS: NYSTATIN/TRIAMCIN 15 GM CREAM 15 GM TUBE TP SCH ×2 (09:08→20:23)
[2018-11-17] MEDS: VITS A AND D/WHITE PET/LANOLIN 5 GM PACKET TP SCH ×2 (09:08→20:24)
[2018-11-17] MEDS: Z GUARD REMEDY 4 OZ OINT TP SCH ×4 (09:08→20:23)
--- NOTE | 2018-11-17 11:32 | NUR ---
Asked Dr Ralph Mendoza to see pt for her abdominal wound (old GT site). He said he will see her.
[2018-11-17 14:47] VITALS: BP 130/60
--- NOTE | 2018-11-17 16:53 | NUR ---
Dr Ralph Mendoza saw pt's abdominal wound (old GT site). He ordered to cleanse and pack abdominal wound with 1/4 strength Dakin's solution.
[2018-11-17 18:23] VITALS: BP 133/72
[2018-11-17 20:20] VITALS: BP 106/59
[2018-11-17] MEDS: DAKINS QUARTER STRENGTH (0.125%) 480 ML BOTTLE TOP SCH (20:22)
[2018-11-17] MEDS: SENNOSIDES 8.6 MG TABLET GT SCH (21:35)
[2018-11-18] MEDS: METOCLOPRAMIDE HCL 10 MG TABLET GT SCH ×4 (00:26→17:33)
[2018-11-18] MEDS: BLOOD SUGAR DIAGNOSTIC 1 EACH STRIP IN SCH ×4 (00:26→17:33)
[2018-11-18] MEDS: BIOTENE MOISTURIZING MM SCH ×4 (00:26→17:33)
[2018-11-18] MEDS: INSULIN REGULAR, HUMAN 100 UNIT/ML 3 ML VIAL SQ PRN ×4 (00:27→17:34)
[2018-11-18 00:41] VITALS: BP 149/61
[2018-11-18] MEDS: IPRATROPIUM NEB FS 0.5 MG/2.5 ML AMPUL.NEB NEB SCH ×4 (01:28→19:54)
[2018-11-18 06:16] VITALS: BP 140/58
[2018-11-18 07:40] VITALS: BP 120/74
[2018-11-18 07:49] LABS: BASOPHILS % (AUTO) 0.2 % (0.0-2.0); EOSINOPHILS % (AUTO) 2.7 % (0.0-6.0); HEMATOCRIT 29 % (33-45); LYMPHOCYTES # (AUTO) 1.3 /CMM (0.8-4.8); LYMPHOCYTES % (AUTO) 10.3 % (20.0-44.0); MEAN CORPUSCULAR HGB CONC 32 g/dl (31.0-36.0); MEAN CORPUSCULAR VOLUME 82 fL (82-100); MONOCYTES # (AUTO) 0.9 /CMM (0.1-1.30); MONOCYTES % (AUTO) 7.2 % (2.0-12.0); NEUTROPHILS # (AUTO) 10.4 /CMM (1.8-8.9); NEUTROPHILS % (AUTO) 79.6 % (43.0-81.0); PLATELET COUNT (AUTO) 313 /CMM (150-450); RED BLOOD CELL COUNT(AUTO) 3.51 MIL/uL (4.0-5.2)
[2018-11-18] MEDS: HYDROGEN PEROXIDE 480 ML BOTTLE TP SCH ×2 (09:00→21:00)
[2018-11-18 09:37] LABS: CALCIUM, SERUM 9.2 mg/dL (8.5-10.1); CARBON DIOXIDE 26 mmol/L (21-32); CHLORIDE 97 mmol/L (98-107); CREATININE 1.9 mg/dL (0.6-1.3); GLUCOSE 150 mg/dL (74-106); MAGNESIUM 3.7 mg/dL (1.8-2.4); PHOSPHORUS 4.7 mg/dL (2.5-4.9); POTASSIUM 3.9 mmol/L (3.5-5.1); SODIUM SERUM 135 mmol/L (136-145); UREA NITROGEN, BLOOD 68 mg/dL (7-18)
[2018-11-18] MEDS: DOCUSATE SODIUM LIQ 100 MG/10 ML UDC GT SCH (09:52)
[2018-11-18] MEDS: APIXABAN 2.5 MG TABLET GT SCH ×2 (09:53→16:38)
[2018-11-18] MEDS: ZINC SULFATE 220 MG CAPSULE GT SCH (09:53)
[2018-11-18] MEDS: ACIDOPHILUS/BULGARICUS 1 EACH TAB.CHEW GT SCH ×2 (09:53→20:31)
[2018-11-18] MEDS: PROSOURCE / PROSTAT (PYXIS) 30 ML UDC GT SCH (09:53)
[2018-11-18] MEDS: METOPROLOL TARTRATE 25 MG TABLET GT SCH ×2 (09:53→20:31)
[2018-11-18] MEDS: MULTIVIT W/MINERALS 1 TAB TABLET GT SCH (09:53)
[2018-11-18] MEDS: ASCORBIC ACID 500 MG TABLET GT SCH (09:53)
[2018-11-18] MEDS: INSULIN DETEMIR 100 UNIT/ML CARTRIDGE SQ SCH ×2 (09:54→20:33)
[2018-11-18] MEDS: DAKINS QUARTER STRENGTH (0.125%) 480 ML BOTTLE TOP SCH ×2 (09:55→20:34)
[2018-11-18] MEDS: Z GUARD REMEDY 4 OZ OINT TP SCH ×4 (09:55→20:34)
[2018-11-18] MEDS: NYSTATIN/TRIAMCIN 15 GM CREAM 15 GM TUBE TP SCH ×2 (09:55→20:34)
[2018-11-18] MEDS: VITS A AND D/WHITE PET/LANOLIN 5 GM PACKET TP SCH ×2 (09:55→20:34)
--- NOTE | 2018-11-18 10:00 | NUR ---
Seen by Dr Agarwal. Relayed lab results to him. No new order.
--- NOTE | 2018-11-18 10:45 | NUR ---
Left message for Dr Carmona requesting him to see pt's abdominal wound and new GT site.
--- NOTE | 2018-11-18 14:00 | NUR ---
Left message for DOUBLE CUTTER Stephanie Miller to see pt's abdominal wound and new GT site.
[2018-11-18 15:19] VITALS: BP 132/60
[2018-11-18] MEDS: NEPRO 1,000 ML BOTTLE GT PRN (17:34)
[2018-11-18 18:16] VITALS: BP 140/71
[2018-11-18 20:19] VITALS: BP 98/61
[2018-11-18] MEDS: SENNOSIDES 8.6 MG TABLET GT SCH (21:16)
--- NOTE | 2018-11-18 22:00 | NUR ---
RN NOTES Seen by ZACH Barron TRANSMISSION SUPERVISOR, with no new orders.
[2018-11-19] VITALS: BP 132/65
[2018-11-19] MEDS: BLOOD SUGAR DIAGNOSTIC 1 EACH STRIP IN SCH ×5 (00:04→23:46)
[2018-11-19] MEDS: METOCLOPRAMIDE HCL 10 MG TABLET GT SCH ×5 (00:04→23:46)
[2018-11-19] MEDS: BIOTENE MOISTURIZING MM SCH ×5 (00:04→23:46)
[2018-11-19] MEDS: INSULIN REGULAR, HUMAN 100 UNIT/ML 3 ML VIAL SQ PRN ×5 (00:06→23:48)
[2018-11-19] MEDS: IPRATROPIUM NEB FS 0.5 MG/2.5 ML AMPUL.NEB NEB SCH ×4 (01:30→19:43)
[2018-11-19 06:25] VITALS: BP 148/88
[2018-11-19 07:57] VITALS: BP 138/59
[2018-11-19] MEDS: HYDROGEN PEROXIDE 480 ML BOTTLE TP SCH ×2 (08:43→21:03)
[2018-11-19] MEDS: DAKINS QUARTER STRENGTH (0.125%) 480 ML BOTTLE TOP SCH ×2 (09:00→21:07)
[2018-11-19] MEDS: VITS A AND D/WHITE PET/LANOLIN 5 GM PACKET TP SCH ×2 (09:00→21:08)
[2018-11-19] MEDS: Z GUARD REMEDY 4 OZ OINT TP SCH ×4 (09:00→21:07)
[2018-11-19] MEDS: NYSTATIN/TRIAMCIN 15 GM CREAM 15 GM TUBE TP SCH ×2 (09:00→21:07)
[2018-11-19] MEDS: ACIDOPHILUS/BULGARICUS 1 EACH TAB.CHEW GT SCH ×2 (09:55→21:02)
[2018-11-19] MEDS: APIXABAN 2.5 MG TABLET GT SCH ×2 (09:55→17:30)
[2018-11-19] MEDS: DOCUSATE SODIUM LIQ 100 MG/10 ML UDC GT SCH (09:55)
[2018-11-19] MEDS: MULTIVIT W/MINERALS 1 TAB TABLET GT SCH (09:56)
[2018-11-19] MEDS: ASCORBIC ACID 500 MG TABLET GT SCH (09:56)
[2018-11-19] MEDS: METOPROLOL TARTRATE 25 MG TABLET GT SCH ×2 (09:56→21:03)
[2018-11-19] MEDS: ZINC SULFATE 220 MG CAPSULE GT SCH (09:56)
[2018-11-19] MEDS: INSULIN DETEMIR 100 UNIT/ML CARTRIDGE SQ SCH ×2 (09:56→21:04)
[2018-11-19] MEDS: PROSOURCE / PROSTAT (PYXIS) 30 ML UDC GT SCH (09:56)
[2018-11-19 12:00] VITALS: BP 131/61
--- NOTE | 2018-11-19 17:38 | NUR ---
AVERY Miller, seen abdominal wound and surrounding skin around new GT site. New order given to use zinc oxide around the GT site. Dr. Aguirre also seen abdominal wound, he does not think it is infected, but granulating. NNO given. Local treatment continue.
--- NOTE | 2018-11-19 20:07 | NUR ---
RT NOTE PT RCVD TRACH'D ON MECHANICAL VENT WITH CHARTED SETTINGS. PT BIRDIE TX WELL. SX DONE. PT TRACH IS PATENT AND SECURE. VENT ALARMS APPEAR TO BE FUNCTIONING PROPERLY. VENT PLUGGED INTO RED OUTLET. AMBU BAG AT BEDSIDE. Addendum: 11/19/18 at 2008 by FELICITAS CHRISTIE RT Amended: Links added.
[2018-11-19 20:25] VITALS: BP 117/56
[2018-11-19] MEDS: COD LIVER OIL/ZINC OXIDE 120 GM TUBE TP SCH (21:07)
[2018-11-19] MEDS: SENNOSIDES 8.6 MG TABLET GT SCH (21:08)
[2018-11-19] MEDS: NEPRO 1,000 ML BOTTLE GT PRN (22:00)
[2018-11-20 00:20] VITALS: BP 150/69
[2018-11-20] MEDS: IPRATROPIUM NEB FS 0.5 MG/2.5 ML AMPUL.NEB NEB SCH ×4 (00:36→19:37)
[2018-11-20] MEDS: BLOOD SUGAR DIAGNOSTIC 1 EACH STRIP IN SCH ×4 (05:32→23:28)
[2018-11-20] MEDS: BIOTENE MOISTURIZING MM SCH ×4 (05:32→23:28)
[2018-11-20] MEDS: METOCLOPRAMIDE HCL 10 MG TABLET GT SCH ×4 (05:32→23:27)
[2018-11-20] MEDS: ACETAMINOPHEN 650 MG/20 ML UDC- SA PATIENTS-FEVER ONLY GT PRN (05:35)
[2018-11-20] MEDS: INSULIN REGULAR, HUMAN 100 UNIT/ML 3 ML VIAL SQ PRN ×4 (05:37→23:29)
[2018-11-20 05:58] VITALS: BP 150/72
--- NOTE | 2018-11-20 06:26 | NUR ---
TEMP 100.5 COOLING MEASURES PROVIDED AND TYLENOL GIVEN VIA GT.FOR CBC TODAY.WILL CONTINUE TO MONITOR AND WILL ENDORSE.
[2018-11-20 06:46] LABS: BASOPHILS % (AUTO) 0.3 % (0.0-2.0); EOSINOPHILS % (AUTO) 1.8 % (0.0-6.0); HEMATOCRIT 27 % (33-45); HEMOGLOBIN 8.6 g/dL (11.5-14.8); LYMPHOCYTES # (AUTO) 1.5 /CMM (0.8-4.8); LYMPHOCYTES % (AUTO) 11.2 % (20.0-44.0); MEAN CORPUSCULAR HGB CONC 32 g/dl (31.0-36.0); MEAN CORPUSCULAR VOLUME 82 fL (82-100); NEUTROPHILS # (AUTO) 10.9 /CMM (1.8-8.9); NEUTROPHILS % (AUTO) 79.7 % (43.0-81.0); PLATELET COUNT (AUTO) 318 /CMM (150-450); RED BLOOD CELL COUNT(AUTO) 3.32 MIL/uL (4.0-5.2); WHITE BLOOD COUNT (AUTO) 13.7 K/uL (4.3-11.0)
[2018-11-20 07:31] VITALS: BP 125/59
[2018-11-20] MEDS: HYDROGEN PEROXIDE 480 ML BOTTLE TP SCH ×2 (09:00→21:38)
[2018-11-20] MEDS: ZINC SULFATE 220 MG CAPSULE GT SCH (09:00)
[2018-11-20] MEDS: DAKINS QUARTER STRENGTH (0.125%) 480 ML BOTTLE TOP SCH ×2 (09:00→21:37)
[2018-11-20] MEDS: Z GUARD REMEDY 4 OZ OINT TP SCH ×4 (09:00→21:38)
[2018-11-20] MEDS: NYSTATIN/TRIAMCIN 15 GM CREAM 15 GM TUBE TP SCH ×2 (09:00→21:38)
[2018-11-20] MEDS: COD LIVER OIL/ZINC OXIDE 120 GM TUBE TP SCH ×3 (09:00→21:38)
[2018-11-20] MEDS: VITS A AND D/WHITE PET/LANOLIN 5 GM PACKET TP SCH ×2 (09:00→21:38)
[2018-11-20] MEDS: DOCUSATE SODIUM LIQ 100 MG/10 ML UDC GT SCH (09:23)
[2018-11-20] MEDS: ACIDOPHILUS/BULGARICUS 1 EACH TAB.CHEW GT SCH ×2 (09:23→21:36)
[2018-11-20] MEDS: APIXABAN 2.5 MG TABLET GT SCH ×2 (09:23→17:20)
[2018-11-20] MEDS: PROSOURCE / PROSTAT (PYXIS) 30 ML UDC GT SCH (09:24)
[2018-11-20] MEDS: ASCORBIC ACID 500 MG TABLET GT SCH (09:24)
[2018-11-20] MEDS: MULTIVIT W/MINERALS 1 TAB TABLET GT SCH (09:24)
[2018-11-20] MEDS: METOPROLOL TARTRATE 25 MG TABLET GT SCH ×2 (09:24→21:40)
[2018-11-20] MEDS: INSULIN DETEMIR 100 UNIT/ML CARTRIDGE SQ SCH ×2 (09:25→21:37)
[2018-11-20 12:00] VITALS: BP 131/60
--- NOTE | 2018-11-20 16:07 | NUR ---
YNES called patients responsible green party/daughter Jennifer Perdomo [phone] to invite them the IDT plan of care conference being held tomorrow November 21, 2018 in the activities room from 12:30pm-1:30pm. Per Jennifer, she will be working tomorrow during IDT and cannot attend nor participate via phone conference. YNES informed Jennifer that family may call nursing station to get a patient update. Jennifer expressed understanding and was agreeable to plan.
[2018-11-20 18:36] VITALS: BP 114/59
[2018-11-20 19:49] VITALS: BP 101/52
[2018-11-20] MEDS: SENNOSIDES 8.6 MG TABLET GT SCH (21:38)
[2018-11-21 00:20] VITALS: BP 147/68
[2018-11-21] MEDS: IPRATROPIUM NEB FS 0.5 MG/2.5 ML AMPUL.NEB NEB SCH ×4 (01:21→19:37)
[2018-11-21] MEDS: METOCLOPRAMIDE HCL 10 MG TABLET GT SCH ×3 (05:27→17:19)
[2018-11-21] MEDS: BLOOD SUGAR DIAGNOSTIC 1 EACH STRIP IN SCH ×3 (05:27→17:19)
[2018-11-21] MEDS: BIOTENE MOISTURIZING MM SCH ×3 (05:28→17:19)
[2018-11-21] MEDS: NEPRO 1,000 ML BOTTLE GT PRN (05:28)
[2018-11-21] MEDS: INSULIN REGULAR, HUMAN 100 UNIT/ML 3 ML VIAL SQ PRN ×3 (05:29→17:20)
[2018-11-21 06:20] VITALS: BP 147/65
[2018-11-21] MEDS: HYDROGEN PEROXIDE 480 ML BOTTLE TP SCH ×2 (07:17→21:00)
[2018-11-21 07:37] VITALS: BP 140/77
[2018-11-21] MEDS: VITS A AND D/WHITE PET/LANOLIN 5 GM PACKET TP SCH ×2 (09:00→21:26)
[2018-11-21] MEDS: COD LIVER OIL/ZINC OXIDE 120 GM TUBE TP SCH ×3 (09:00→21:25)
[2018-11-21] MEDS: ZINC SULFATE 220 MG CAPSULE GT SCH (09:00)
[2018-11-21] MEDS: NYSTATIN/TRIAMCIN 15 GM CREAM 15 GM TUBE TP SCH ×2 (09:00→21:25)
[2018-11-21] MEDS: Z GUARD REMEDY 4 OZ OINT TP SCH ×4 (09:00→21:26)
[2018-11-21] MEDS: DAKINS QUARTER STRENGTH (0.125%) 480 ML BOTTLE TOP SCH ×2 (09:00→21:25)
[2018-11-21] MEDS: DOCUSATE SODIUM LIQ 100 MG/10 ML UDC GT SCH (09:08)
[2018-11-21] MEDS: PROSOURCE / PROSTAT (PYXIS) 30 ML UDC GT SCH (09:24)
[2018-11-21] MEDS: MULTIVIT W/MINERALS 1 TAB TABLET GT SCH (09:24)
[2018-11-21] MEDS: APIXABAN 2.5 MG TABLET GT SCH ×2 (09:24→17:19)
[2018-11-21] MEDS: ASCORBIC ACID 500 MG TABLET GT SCH (09:24)
[2018-11-21] MEDS: ACIDOPHILUS/BULGARICUS 1 EACH TAB.CHEW GT SCH ×2 (09:24→21:21)
[2018-11-21] MEDS: METOPROLOL TARTRATE 25 MG TABLET GT SCH ×2 (09:24→21:22)
[2018-11-21] MEDS: INSULIN DETEMIR 100 UNIT/ML CARTRIDGE SQ SCH ×2 (09:25→21:25)
[2018-11-21 12:00] VITALS: BP 142/70
--- NOTE | 2018-11-21 13:54 | NUR ---
INTERDISCIPLINARY PLAN OF CARE CONFERENCE was held today. IDT attempted to contact the patients responsible libertarian/ daughter Jennifer Perdomo [phone] could not attend nor participate via phone. Charge Nurse left a voicemail. Dr. Agarwal and interdisciplinary team discussed the current plan of care in detail. Current orders as well as treatments and medications were reviewed. IDT discussed treatment for abdominal wound and surrounding skin around new GT site. See other disciplines IDT notes for further details.
--- NOTE | 2018-11-21 16:10 | NUR ---
RT NOTE: RECEIVED TRACH PT ON ORDERED NOTED VENT SETTINGS. NO RESPIRATORY DISTRESS NOTED. TRACH CHECKED SECURE AND PATENT. SXD AND LAVAGED PT Q ROUND AND NEEDED. TXS GIVEN ORDERED WITH NO ADVERSE REACTIONS NOTED. TRACH CARE DONE. SPARE TRACH AND AMBU BAG @ BEDSIDE. ALARMS CHECKED AND AUDIBLE. VENT PLUGGED INTO RED OUTLET.
[2018-11-21 19:18] VITALS: BP 118/47
[2018-11-21 19:49] VITALS: BP 135/47
[2018-11-21] MEDS: SENNOSIDES 8.6 MG TABLET GT SCH (21:26)
[2018-11-22 00:20] VITALS: BP 122/78
[2018-11-22] MEDS: METOCLOPRAMIDE HCL 10 MG TABLET GT SCH ×5 (00:44→23:03)
[2018-11-22] MEDS: BIOTENE MOISTURIZING MM SCH ×5 (00:45→23:52)
[2018-11-22] MEDS: BLOOD SUGAR DIAGNOSTIC 1 EACH STRIP IN SCH ×5 (00:45→23:03)
[2018-11-22] MEDS: INSULIN REGULAR, HUMAN 100 UNIT/ML 3 ML VIAL SQ PRN ×5 (00:47→23:04)
[2018-11-22] MEDS: IPRATROPIUM NEB FS 0.5 MG/2.5 ML AMPUL.NEB NEB SCH ×4 (02:10→19:19)
[2018-11-22 06:00] VITALS: BP 105/57
[2018-11-22 07:47] VITALS: BP 113/53
[2018-11-22] MEDS: NYSTATIN/TRIAMCIN 15 GM CREAM 15 GM TUBE TP SCH ×2 (09:00→21:41)
[2018-11-22] MEDS: VITS A AND D/WHITE PET/LANOLIN 5 GM PACKET TP SCH ×2 (09:00→21:42)
[2018-11-22] MEDS: Z GUARD REMEDY 4 OZ OINT TP SCH ×4 (09:00→21:42)
[2018-11-22] MEDS: HYDROGEN PEROXIDE 480 ML BOTTLE TP SCH ×2 (09:00→21:41)
[2018-11-22 09:24] LABS: BASOPHILS % (AUTO) 0.5 % (0.0-2.0); EOSINOPHILS % (AUTO) 2.4 % (0.0-6.0); HEMATOCRIT 29 % (33-45); HEMOGLOBIN 9.1 g/dL (11.5-14.8); LYMPHOCYTES # (AUTO) 1.6 /CMM (0.8-4.8); MEAN CORPUSCULAR HGB CONC 32 g/dl (31.0-36.0); MEAN CORPUSCULAR VOLUME 81 fL (82-100); MONOCYTES # (AUTO) 1.1 /CMM (0.1-1.30); MONOCYTES % (AUTO) 11.2 % (2.0-12.0); NEUTROPHILS # (AUTO) 6.5 /CMM (1.8-8.9); NEUTROPHILS % (AUTO) 68.9 % (43.0-81.0); PLATELET COUNT (AUTO) 328 /CMM (150-450); RED BLOOD CELL COUNT(AUTO) 3.51 MIL/uL (4.0-5.2); WHITE BLOOD COUNT (AUTO) 9.4 K/uL (4.3-11.0)
[2018-11-22] MEDS: ACIDOPHILUS/BULGARICUS 1 EACH TAB.CHEW GT SCH ×2 (09:28→21:40)
[2018-11-22] MEDS: DOCUSATE SODIUM LIQ 100 MG/10 ML UDC GT SCH (09:28)
[2018-11-22] MEDS: APIXABAN 2.5 MG TABLET GT SCH ×2 (09:28→17:03)
[2018-11-22] MEDS: METOPROLOL TARTRATE 25 MG TABLET GT SCH ×2 (09:29→21:40)
[2018-11-22] MEDS: ZINC SULFATE 220 MG CAPSULE GT SCH (09:29)
[2018-11-22] MEDS: MULTIVIT W/MINERALS 1 TAB TABLET GT SCH (09:29)
[2018-11-22] MEDS: PROSOURCE / PROSTAT (PYXIS) 30 ML UDC GT SCH (09:29)
[2018-11-22] MEDS: INSULIN DETEMIR 100 UNIT/ML CARTRIDGE SQ SCH ×2 (09:29→21:41)
[2018-11-22] MEDS: ASCORBIC ACID 500 MG TABLET GT SCH (09:29)
[2018-11-22] MEDS: COD LIVER OIL/ZINC OXIDE 120 GM TUBE TP SCH ×3 (11:30→21:41)
[2018-11-22] MEDS: DAKINS QUARTER STRENGTH (0.125%) 480 ML BOTTLE TOP SCH ×2 (11:30→21:41)
[2018-11-22 12:00] VITALS: BP 145/49
--- NOTE | 2018-11-22 18:40 | NUR ---
Pt noted with temp of 99.6. BP 116/46, HR 89. Pt calm, in no distress. Cooling measures started. Donny Hoover SALES SUPPORT ENGINEER in unit, notified of pt's condition. Per Donny, continue to monitor. NNO given. Only give Tylenol PRN if temp > 100.4. Will endorse to incoming shift to monitor.
[2018-11-22 18:52] VITALS: BP 116/46
[2018-11-22 19:50] VITALS: BP 115/56
[2018-11-22] MEDS: NEOMY SULF/BACITRAC ZN/POLY 15 GM TUBE TP SCH (21:41)
[2018-11-22] MEDS: SENNOSIDES 8.6 MG TABLET GT SCH (21:42)
[2018-11-23] VITALS: BP 115/55
[2018-11-23] MEDS: IPRATROPIUM NEB FS 0.5 MG/2.5 ML AMPUL.NEB NEB SCH ×4 (00:48→19:40)
[2018-11-23] MEDS: METOCLOPRAMIDE HCL 10 MG TABLET GT SCH ×4 (05:19→23:42)
[2018-11-23] MEDS: BLOOD SUGAR DIAGNOSTIC 1 EACH STRIP IN SCH ×4 (05:19→23:42)
[2018-11-23] MEDS: BIOTENE MOISTURIZING MM SCH ×4 (05:19→23:42)
[2018-11-23] MEDS: INSULIN REGULAR, HUMAN 100 UNIT/ML 3 ML VIAL SQ PRN ×4 (05:20→23:43)
[2018-11-23 06:00] VITALS: BP 137/67
[2018-11-23 07:58] VITALS: BP 136/76
[2018-11-23] MEDS: DAKINS QUARTER STRENGTH (0.125%) 480 ML BOTTLE TOP SCH ×2 (09:00→21:42)
[2018-11-23] MEDS: VITS A AND D/WHITE PET/LANOLIN 5 GM PACKET TP SCH ×2 (09:00→21:42)
[2018-11-23] MEDS: HYDROGEN PEROXIDE 480 ML BOTTLE TP SCH ×2 (09:00→21:00)
[2018-11-23] MEDS: NEOMY SULF/BACITRAC ZN/POLY 15 GM TUBE TP SCH ×2 (09:00→21:42)
[2018-11-23] MEDS: COD LIVER OIL/ZINC OXIDE 120 GM TUBE TP SCH ×3 (09:00→21:42)
[2018-11-23] MEDS: ACIDOPHILUS/BULGARICUS 1 EACH TAB.CHEW GT SCH ×2 (09:00→21:40)
[2018-11-23] MEDS: Z GUARD REMEDY 4 OZ OINT TP SCH ×4 (09:00→21:42)
[2018-11-23] MEDS: DOCUSATE SODIUM LIQ 100 MG/10 ML UDC GT SCH (09:00)
[2018-11-23] MEDS: NYSTATIN/TRIAMCIN 15 GM CREAM 15 GM TUBE TP SCH ×2 (09:00→21:42)
[2018-11-23] MEDS: APIXABAN 2.5 MG TABLET GT SCH ×2 (09:00→16:46)
[2018-11-23] MEDS: METOPROLOL TARTRATE 25 MG TABLET GT SCH ×2 (09:01→21:40)
[2018-11-23] MEDS: PROSOURCE / PROSTAT (PYXIS) 30 ML UDC GT SCH (09:01)
[2018-11-23] MEDS: ASCORBIC ACID 500 MG TABLET GT SCH (09:01)
[2018-11-23] MEDS: ZINC SULFATE 220 MG CAPSULE GT SCH (09:01)
[2018-11-23] MEDS: INSULIN DETEMIR 100 UNIT/ML CARTRIDGE SQ SCH ×2 (09:01→21:41)
[2018-11-23] MEDS: MULTIVIT W/MINERALS 1 TAB TABLET GT SCH (09:01)
--- NOTE | 2018-11-23 15:00 | NUR ---
Seen and examined by BUILDING DRAFTING OFFICER Carole Dodd, NNO given.
[2018-11-23 15:19] VITALS: BP 125/68
[2018-11-23] MEDS: NEPRO 1,000 ML BOTTLE GT PRN (17:44)
[2018-11-23 18:20] VITALS: BP 142/65
[2018-11-23 20:00] VITALS: BP 104/48
[2018-11-23] MEDS: SENNOSIDES 8.6 MG TABLET GT SCH (21:42)
[2018-11-24] VITALS (7 sets, daily range): BP systolic 106–128; BP diastolic 52–78
[2018-11-24] MEDS: IPRATROPIUM NEB FS 0.5 MG/2.5 ML AMPUL.NEB NEB SCH ×4 (01:56→19:21)
[2018-11-24] MEDS: BLOOD SUGAR DIAGNOSTIC 1 EACH STRIP IN SCH ×3 (05:47→18:26)
[2018-11-24] MEDS: BIOTENE MOISTURIZING MM SCH ×3 (05:47→18:26)
[2018-11-24] MEDS: METOCLOPRAMIDE HCL 10 MG TABLET GT SCH ×3 (05:47→17:08)
[2018-11-24] MEDS: INSULIN REGULAR, HUMAN 100 UNIT/ML 3 ML VIAL SQ PRN ×3 (05:48→18:30)
[2018-11-24] MEDS: MAGNESIUM HYDROXIDE 30 ML UDC GT PRN (08:00)
[2018-11-24] MEDS: DAKINS QUARTER STRENGTH (0.125%) 480 ML BOTTLE TOP SCH ×2 (09:00→20:40)
[2018-11-24] MEDS: Z GUARD REMEDY 4 OZ OINT TP SCH ×4 (09:00→20:41)
[2018-11-24] MEDS: COD LIVER OIL/ZINC OXIDE 120 GM TUBE TP SCH ×3 (09:00→20:41)
[2018-11-24] MEDS: HYDROGEN PEROXIDE 480 ML BOTTLE TP SCH ×2 (09:00→20:41)
[2018-11-24] MEDS: VITS A AND D/WHITE PET/LANOLIN 5 GM PACKET TP SCH ×2 (09:00→20:41)
[2018-11-24] MEDS: NEOMY SULF/BACITRAC ZN/POLY 15 GM TUBE TP SCH ×2 (09:00→20:41)
[2018-11-24] MEDS: DOCUSATE SODIUM LIQ 100 MG/10 ML UDC GT SCH (09:39)
[2018-11-24] MEDS: ACIDOPHILUS/BULGARICUS 1 EACH TAB.CHEW GT SCH ×2 (09:40→20:43)
[2018-11-24] MEDS: APIXABAN 2.5 MG TABLET GT SCH ×2 (09:40→17:08)
[2018-11-24] MEDS: ASCORBIC ACID 500 MG TABLET GT SCH (09:41)
[2018-11-24] MEDS: PROSOURCE / PROSTAT (PYXIS) 30 ML UDC GT SCH (09:41)
[2018-11-24] MEDS: METOPROLOL TARTRATE 25 MG TABLET GT SCH ×2 (09:41→20:40)
[2018-11-24] MEDS: ZINC SULFATE 220 MG CAPSULE GT SCH (09:41)
[2018-11-24] MEDS: MULTIVIT W/MINERALS 1 TAB TABLET GT SCH (09:41)
[2018-11-24] MEDS: INSULIN DETEMIR 100 UNIT/ML CARTRIDGE SQ SCH ×2 (09:56→21:03)
[2018-11-24] MEDS: NYSTATIN/TRIAMCIN 15 GM CREAM 15 GM TUBE TP SCH ×2 (12:53→20:41)
[2018-11-24] MEDS: BISACODYL SUPP (10 MG) 10 MG/SUPP.RECT SUPP.RECT RC PRN (17:08)
[2018-11-24] MEDS: SENNOSIDES 8.6 MG TABLET GT SCH (22:05)
[2018-11-25] VITALS: BP 121/52
[2018-11-25] MEDS: METOCLOPRAMIDE HCL 10 MG TABLET GT SCH ×5 (00:45→23:04)
[2018-11-25] MEDS: BLOOD SUGAR DIAGNOSTIC 1 EACH STRIP IN SCH ×5 (00:46→23:04)
[2018-11-25] MEDS: BIOTENE MOISTURIZING MM SCH ×5 (00:47→23:05)
[2018-11-25] MEDS: INSULIN REGULAR, HUMAN 100 UNIT/ML 3 ML VIAL SQ PRN ×4 (00:48→23:06)
[2018-11-25] MEDS: NEPRO 1,000 ML BOTTLE GT PRN (01:15)
[2018-11-25] MEDS: IPRATROPIUM NEB FS 0.5 MG/2.5 ML AMPUL.NEB NEB SCH ×4 (01:55→19:27)
[2018-11-25 06:00] VITALS: BP 123/53
[2018-11-25 07:42] VITALS: BP 127/85
[2018-11-25] MEDS: DAKINS QUARTER STRENGTH (0.125%) 480 ML BOTTLE TOP SCH ×2 (09:00→21:11)
[2018-11-25] MEDS: COD LIVER OIL/ZINC OXIDE 120 GM TUBE TP SCH ×3 (09:00→21:11)
[2018-11-25] MEDS: NEOMY SULF/BACITRAC ZN/POLY 15 GM TUBE TP SCH ×2 (09:00→21:11)
[2018-11-25] MEDS: VITS A AND D/WHITE PET/LANOLIN 5 GM PACKET TP SCH ×2 (09:00→21:11)
[2018-11-25] MEDS: NYSTATIN/TRIAMCIN 15 GM CREAM 15 GM TUBE TP SCH ×2 (09:00→21:11)
[2018-11-25] MEDS: Z GUARD REMEDY 4 OZ OINT TP SCH ×4 (09:00→21:11)
[2018-11-25] MEDS: HYDROGEN PEROXIDE 480 ML BOTTLE TP SCH ×2 (09:00→21:11)
[2018-11-25] MEDS: DOCUSATE SODIUM LIQ 100 MG/10 ML UDC GT SCH (09:03)
[2018-11-25] MEDS: ZINC SULFATE 220 MG CAPSULE GT SCH (09:04)
[2018-11-25] MEDS: PROSOURCE / PROSTAT (PYXIS) 30 ML UDC GT SCH (09:04)
[2018-11-25] MEDS: APIXABAN 2.5 MG TABLET GT SCH ×2 (09:04→16:34)
[2018-11-25] MEDS: ASCORBIC ACID 500 MG TABLET GT SCH (09:04)
[2018-11-25] MEDS: MULTIVIT W/MINERALS 1 TAB TABLET GT SCH (09:04)
[2018-11-25] MEDS: ACIDOPHILUS/BULGARICUS 1 EACH TAB.CHEW GT SCH ×2 (09:04→21:10)
[2018-11-25] MEDS: METOPROLOL TARTRATE 25 MG TABLET GT SCH ×2 (09:04→21:10)
[2018-11-25] MEDS: INSULIN DETEMIR 100 UNIT/ML CARTRIDGE SQ SCH ×2 (09:05→21:11)
--- NOTE | 2018-11-25 11:01 | NUR ---
Invite to Family Support Group: SW called patients responsible alliance party/ daughter Jennifer Perdomo [phone] invite them to attend the family support group being held tomorrow November 26, 2018 from 11 am-12pm in the old admin conference room in the first floor. Jennifer expressed interest and stated that she will try to make it tomorrow. No further action required.
[2018-11-25 14:21] VITALS: BP 123/68
[2018-11-25 18:08] VITALS: BP 135/65
[2018-11-25 19:56] VITALS: BP 119/57
[2018-11-25] MEDS: SENNOSIDES 8.6 MG TABLET GT SCH (21:11)
[2018-11-26] VITALS (7 sets, daily range): BP systolic 111–160; BP diastolic 53–81
[2018-11-26] MEDS: IPRATROPIUM NEB FS 0.5 MG/2.5 ML AMPUL.NEB NEB SCH ×4 (01:45→19:48)
[2018-11-26] MEDS: BIOTENE MOISTURIZING MM SCH ×3 (05:33→18:05)
[2018-11-26] MEDS: METOCLOPRAMIDE HCL 10 MG TABLET GT SCH ×3 (05:33→18:05)
[2018-11-26] MEDS: BLOOD SUGAR DIAGNOSTIC 1 EACH STRIP IN SCH ×3 (05:33→18:05)
[2018-11-26] MEDS: INSULIN REGULAR, HUMAN 100 UNIT/ML 3 ML VIAL SQ PRN ×3 (05:34→18:10)
[2018-11-26] MEDS: HYDROGEN PEROXIDE 480 ML BOTTLE TP SCH ×2 (08:38→21:11)
[2018-11-26] MEDS: DOCUSATE SODIUM LIQ 100 MG/10 ML UDC GT SCH (08:49)
[2018-11-26] MEDS: ACIDOPHILUS/BULGARICUS 1 EACH TAB.CHEW GT SCH ×2 (08:51→21:17)
[2018-11-26] MEDS: APIXABAN 2.5 MG TABLET GT SCH ×2 (08:51→16:39)
[2018-11-26] MEDS: MULTIVIT W/MINERALS 1 TAB TABLET GT SCH (08:52)
[2018-11-26] MEDS: PROSOURCE / PROSTAT (PYXIS) 30 ML UDC GT SCH (08:52)
[2018-11-26] MEDS: METOPROLOL TARTRATE 25 MG TABLET GT SCH ×2 (08:52→21:17)
[2018-11-26] MEDS: ZINC SULFATE 220 MG CAPSULE GT SCH (08:52)
[2018-11-26] MEDS: ASCORBIC ACID 500 MG TABLET GT SCH (08:52)
--- NOTE | 2018-11-26 09:00 | NUR ---
LIGHT RAIL SIGNAL TECHNICIAN reported that she noted a long line of open area to patients' fore head, scant bleeding noted. Patient on vent, no resp. distress. Cleansed forehead with NS, leaved open to air at this time. UM made aware. Patient closely monitored.
[2018-11-26] MEDS: INSULIN DETEMIR 100 UNIT/ML CARTRIDGE SQ SCH ×2 (09:12→21:18)
[2018-11-26] MEDS: VITS A AND D/WHITE PET/LANOLIN 5 GM PACKET TP SCH ×2 (10:00→21:20)
[2018-11-26] MEDS: NEOMY SULF/BACITRAC ZN/POLY 15 GM TUBE TP SCH ×2 (10:00→21:19)
[2018-11-26] MEDS: Z GUARD REMEDY 4 OZ OINT TP SCH ×4 (10:00→21:20)
[2018-11-26] MEDS: DAKINS QUARTER STRENGTH (0.125%) 480 ML BOTTLE TOP SCH ×2 (10:00→21:19)
[2018-11-26] MEDS: COD LIVER OIL/ZINC OXIDE 120 GM TUBE TP SCH ×3 (10:00→21:19)
[2018-11-26] MEDS: NYSTATIN/TRIAMCIN 15 GM CREAM 15 GM TUBE TP SCH ×2 (10:00→21:19)
--- NOTE | 2018-11-26 11:00 | NUR ---
Dr. Patrick came to do rounds, saw patient and made aware of the open area to her forehead. stated " it looks it does not need ATB ointment, doesn't look like infected". He only wants to keep area open to air, dry and clean at all times. Reminded nursing staff to be very careful when turning and repositioning patient , made sure she does not lay on any device at all times to prevent skin break down. Reminded them too that needs 2 person when repositioning patient. Called and spoke to patients' daughter annika regarding the skin issue on her moms' forehead. Patient closely monitored.
[2018-11-26] MEDS: NEPRO 1,000 ML BOTTLE GT PRN (12:37)
[2018-11-26] MEDS: SENNOSIDES 8.6 MG TABLET GT SCH (21:20)
[2018-11-27 00:20] VITALS: BP 121/64
[2018-11-27] MEDS: BIOTENE MOISTURIZING MM SCH ×4 (00:37→17:31)
[2018-11-27] MEDS: BLOOD SUGAR DIAGNOSTIC 1 EACH STRIP IN SCH ×4 (00:37→17:31)
[2018-11-27] MEDS: METOCLOPRAMIDE HCL 10 MG TABLET GT SCH ×4 (00:37→17:31)
[2018-11-27] MEDS: INSULIN REGULAR, HUMAN 100 UNIT/ML 3 ML VIAL SQ PRN ×4 (00:38→17:31)
[2018-11-27] MEDS: IPRATROPIUM NEB FS 0.5 MG/2.5 ML AMPUL.NEB NEB SCH ×4 (01:31→19:00)
[2018-11-27 06:15] VITALS: BP 137/70
[2018-11-27 07:51] VITALS: BP 154/78
[2018-11-27] MEDS: HYDROGEN PEROXIDE 480 ML BOTTLE TP SCH ×2 (07:56→21:00)
[2018-11-27] MEDS: DOCUSATE SODIUM LIQ 100 MG/10 ML UDC GT SCH (09:06)
[2018-11-27] MEDS: ASCORBIC ACID 500 MG TABLET GT SCH (09:07)
[2018-11-27] MEDS: MULTIVIT W/MINERALS 1 TAB TABLET GT SCH (09:07)
[2018-11-27] MEDS: ACIDOPHILUS/BULGARICUS 1 EACH TAB.CHEW GT SCH ×2 (09:07→21:00)
[2018-11-27] MEDS: PROSOURCE / PROSTAT (PYXIS) 30 ML UDC GT SCH (09:07)
[2018-11-27] MEDS: ZINC SULFATE 220 MG CAPSULE GT SCH (09:07)
[2018-11-27] MEDS: METOPROLOL TARTRATE 25 MG TABLET GT SCH ×2 (09:07→21:00)
[2018-11-27] MEDS: APIXABAN 2.5 MG TABLET GT SCH ×2 (09:07→17:31)
[2018-11-27] MEDS: INSULIN DETEMIR 100 UNIT/ML CARTRIDGE SQ SCH ×2 (09:08→21:00)
[2018-11-27] MEDS: Z GUARD REMEDY 4 OZ OINT TP SCH ×4 (09:30→21:00)
[2018-11-27] MEDS: DAKINS QUARTER STRENGTH (0.125%) 480 ML BOTTLE TOP SCH ×2 (09:30→21:00)
[2018-11-27] MEDS: COD LIVER OIL/ZINC OXIDE 120 GM TUBE TP SCH ×3 (09:30→21:00)
[2018-11-27] MEDS: NYSTATIN/TRIAMCIN 15 GM CREAM 15 GM TUBE TP SCH ×2 (09:30→21:00)
[2018-11-27] MEDS: NEOMY SULF/BACITRAC ZN/POLY 15 GM TUBE TP SCH ×2 (09:30→21:00)
[2018-11-27 12:00] VITALS: BP 125/42
[2018-11-27 18:39] VITALS: BP 110/52
[2018-11-27 19:45] VITALS: BP 112/50
[2018-11-27] MEDS: VITAMINS A AND D 56.7 GM TUBE TP SCH (21:00)
[2018-11-27] MEDS: SENNOSIDES 8.6 MG TABLET GT SCH (22:21)
[2018-11-28] VITALS: BP 138/60
[2018-11-28] MEDS: METOCLOPRAMIDE HCL 10 MG TABLET GT SCH ×4 (00:34→17:06)
[2018-11-28] MEDS: BLOOD SUGAR DIAGNOSTIC 1 EACH STRIP IN SCH ×4 (00:34→17:06)
[2018-11-28] MEDS: BIOTENE MOISTURIZING MM SCH ×4 (00:34→17:06)
[2018-11-28] MEDS: INSULIN REGULAR, HUMAN 100 UNIT/ML 3 ML VIAL SQ PRN ×4 (00:36→17:07)
[2018-11-28] MEDS: IPRATROPIUM NEB FS 0.5 MG/2.5 ML AMPUL.NEB NEB SCH ×4 (01:11→19:57)
[2018-11-28 06:00] VITALS: BP 141/57
[2018-11-28 07:52] VITALS: BP 116/55
[2018-11-28] MEDS: HYDROGEN PEROXIDE 480 ML BOTTLE TP SCH ×2 (09:09→20:45)
[2018-11-28] MEDS: ACIDOPHILUS/BULGARICUS 1 EACH TAB.CHEW GT SCH ×2 (09:39→21:13)
[2018-11-28] MEDS: PROSOURCE / PROSTAT (PYXIS) 30 ML UDC GT SCH (09:39)
[2018-11-28] MEDS: ASCORBIC ACID 500 MG TABLET GT SCH (09:39)
[2018-11-28] MEDS: DOCUSATE SODIUM LIQ 100 MG/10 ML UDC GT SCH (09:39)
[2018-11-28] MEDS: MULTIVIT W/MINERALS 1 TAB TABLET GT SCH (09:39)
[2018-11-28] MEDS: ZINC SULFATE 220 MG CAPSULE GT SCH (09:39)
[2018-11-28] MEDS: APIXABAN 2.5 MG TABLET GT SCH ×2 (09:41→17:06)
[2018-11-28] MEDS: NEOMY SULF/BACITRAC ZN/POLY 15 GM TUBE TP SCH ×2 (09:42→21:14)
[2018-11-28] MEDS: METOPROLOL TARTRATE 25 MG TABLET GT SCH ×2 (09:42→21:13)
[2018-11-28] MEDS: Z GUARD REMEDY 4 OZ OINT TP SCH ×4 (09:42→21:14)
[2018-11-28] MEDS: COD LIVER OIL/ZINC OXIDE 120 GM TUBE TP SCH ×3 (09:42→21:14)
[2018-11-28] MEDS: NYSTATIN/TRIAMCIN 15 GM CREAM 15 GM TUBE TP SCH ×2 (09:42→21:14)
[2018-11-28] MEDS: VITAMINS A AND D 56.7 GM TUBE TP SCH ×2 (09:43→21:14)
[2018-11-28] MEDS: DAKINS QUARTER STRENGTH (0.125%) 480 ML BOTTLE TOP SCH ×2 (09:47→21:14)
[2018-11-28] MEDS: INSULIN DETEMIR 100 UNIT/ML CARTRIDGE SQ SCH ×2 (09:47→21:14)
[2018-11-28 12:00] VITALS: BP 133/54
--- NOTE | 2018-11-28 17:21 | NUR ---
RT NOTES TRACH TUBE IN PLACE, PATENT, AND SECURED WITH TRACH TIE. ALARMS ON AND AUDIBLE. VENT PLUGGED IN TO RED OUTLET. AMBU BAG AND BACK UP TRACH BY THE BEDSIDE. NO RESP DISTRESS AT THIS TIME. Addendum: 11/28/18 at 1722 by ANDRES MARINO RT Amended: Links added.
[2018-11-28 18:47] VITALS: BP 110/63
[2018-11-28 19:46] VITALS: BP 115/52
[2018-11-28] MEDS: NEPRO 1,000 ML BOTTLE GT PRN (20:30)
[2018-11-28] MEDS: SENNOSIDES 8.6 MG TABLET GT SCH (21:15)
[2018-11-29] MEDS: BLOOD SUGAR DIAGNOSTIC 1 EACH STRIP IN SCH ×4 (00:15→17:51)
[2018-11-29] MEDS: METOCLOPRAMIDE HCL 10 MG TABLET GT SCH ×4 (00:15→17:51)
[2018-11-29] MEDS: MAGNESIUM HYDROXIDE 30 ML UDC GT PRN (00:15)
[2018-11-29] MEDS: BIOTENE MOISTURIZING MM SCH ×4 (00:15→17:52)
[2018-11-29] MEDS: INSULIN REGULAR, HUMAN 100 UNIT/ML 3 ML VIAL SQ PRN ×4 (00:16→17:53)
[2018-11-29 00:30] VITALS: BP 135/53
[2018-11-29] MEDS: IPRATROPIUM NEB FS 0.5 MG/2.5 ML AMPUL.NEB NEB SCH ×4 (01:38→20:15)
[2018-11-29 06:15] VITALS: BP 115/57
[2018-11-29 08:14] VITALS: BP 142/52
[2018-11-29] MEDS: HYDROGEN PEROXIDE 480 ML BOTTLE TP SCH ×2 (09:00→20:15)
[2018-11-29] MEDS: DOCUSATE SODIUM LIQ 100 MG/10 ML UDC GT SCH (09:14)
[2018-11-29] MEDS: ACIDOPHILUS/BULGARICUS 1 EACH TAB.CHEW GT SCH ×2 (09:14→21:23)
[2018-11-29] MEDS: APIXABAN 2.5 MG TABLET GT SCH ×2 (09:14→17:51)
[2018-11-29] MEDS: METOPROLOL TARTRATE 25 MG TABLET GT SCH ×2 (09:14→21:23)
[2018-11-29] MEDS: PROSOURCE / PROSTAT (PYXIS) 30 ML UDC GT SCH (09:14)
[2018-11-29] MEDS: INSULIN DETEMIR 100 UNIT/ML CARTRIDGE SQ SCH ×2 (09:15→21:25)
[2018-11-29] MEDS: ZINC SULFATE 220 MG CAPSULE GT SCH (09:15)
[2018-11-29] MEDS: ASCORBIC ACID 500 MG TABLET GT SCH (09:15)
[2018-11-29] MEDS: MULTIVIT W/MINERALS 1 TAB TABLET GT SCH (09:15)
[2018-11-29] MEDS: NYSTATIN/TRIAMCIN 15 GM CREAM 15 GM TUBE TP SCH ×2 (09:19→21:26)
[2018-11-29] MEDS: COD LIVER OIL/ZINC OXIDE 120 GM TUBE TP SCH ×3 (09:19→21:26)
[2018-11-29] MEDS: DAKINS QUARTER STRENGTH (0.125%) 480 ML BOTTLE TOP SCH ×2 (09:19→21:26)
[2018-11-29] MEDS: NEOMY SULF/BACITRAC ZN/POLY 15 GM TUBE TP SCH ×2 (09:19→21:26)
[2018-11-29] MEDS: Z GUARD REMEDY 4 OZ OINT TP SCH ×4 (09:19→21:26)
[2018-11-29] MEDS: VITAMINS A AND D 56.7 GM TUBE TP SCH ×2 (09:20→21:26)
--- NOTE | 2018-11-29 11:00 | NUR ---
RT Monthly trach changed done with new [place] 8 cuffed trach. No complications, equal bilateral breath sounds and chest rise noted. TRANSMITTER ENGINEER IN CHARGE cuff pressure noted. Minimal bleeding and no redness at trach site. No respiratory distress noted. Addendum: 11/29/18 at 1132 by ZAK SUAREZ RT Amended: Links added.
[2018-11-29 12:00] VITALS: BP 125/55
[2018-11-29 18:41] VITALS: BP 144/70
[2018-11-29 21:02] VITALS: BP 135/74
[2018-11-29] MEDS: SENNOSIDES 8.6 MG TABLET GT SCH (21:26)
[2018-11-30 00:30] VITALS: BP 115/66
[2018-11-30] MEDS: BLOOD SUGAR DIAGNOSTIC 1 EACH STRIP IN SCH ×5 (00:30→23:37)
[2018-11-30] MEDS: NEPRO 1,000 ML BOTTLE GT PRN ×2 (01:02→21:44)
[2018-11-30] MEDS: INSULIN REGULAR, HUMAN 100 UNIT/ML 3 ML VIAL SQ PRN ×5 (01:04→23:54)
[2018-11-30] MEDS: IPRATROPIUM NEB FS 0.5 MG/2.5 ML AMPUL.NEB NEB SCH ×4 (01:48→19:39)
--- NOTE | 2018-11-30 04:00 | NUR ---
PATIENT RECEIVED ON TRACH TO VENT WITH SETTINGS OF AC 30, 450 Vt, 30%, +5. SUCTIONED FOR MINIMAL, THIN, WHITE SECRETIONS. GIVEN IN-LINE TREATMENTS WITH NO ADVERSE REACTIONS. AMBU BAG AT BEDSIDE. VENT AND PULSE OXIMETER ALARMS AUDIBLE AND VISIBLE. Addendum: 11/30/18 at 0404 by CAMMY MCELROY RT Amended: Links added.
[2018-11-30] MEDS: METOCLOPRAMIDE HCL 10 MG TABLET GT SCH ×5 (05:29→23:28)
[2018-11-30] MEDS: BIOTENE MOISTURIZING MM SCH ×5 (05:29→23:28)
[2018-11-30 06:21] VITALS: BP 141/54
[2018-11-30 06:32] LABS: BASOPHILS # (AUTO) 0.1 /CMM (0.0-0.2); BASOPHILS % (AUTO) 0.5 % (0.0-2.0); EOSINOPHILS % (AUTO) 2.9 % (0.0-6.0); HEMATOCRIT 28 % (33-45); HEMOGLOBIN 8.9 g/dL (11.5-14.8); LYMPHOCYTES % (AUTO) 16.2 % (20.0-44.0); MEAN CORPUSCULAR HGB CONC 32 g/dl (31.0-36.0); MEAN CORPUSCULAR VOLUME 81 fL (82-100); MONOCYTES # (AUTO) 0.9 /CMM (0.1-1.30); MONOCYTES % (AUTO) 6.9 % (2.0-12.0); NEUTROPHILS # (AUTO) 9.3 /CMM (1.8-8.9); NEUTROPHILS % (AUTO) 73.5 % (43.0-81.0); PLATELET COUNT (AUTO) 406 /CMM (150-450); RED BLOOD CELL COUNT(AUTO) 3.47 MIL/uL (4.0-5.2); WHITE BLOOD COUNT (AUTO) 12.6 K/uL (4.3-11.0)
[2018-11-30 06:55] LABS: CALCIUM, SERUM 8.8 mg/dL (8.5-10.1); CARBON DIOXIDE 30 mmol/L (21-32); CHLORIDE 96 mmol/L (98-107); GLUCOSE 175 mg/dL (74-106); MAGNESIUM 3.6 mg/dL (1.8-2.4); PHOSPHORUS 4.6 mg/dL (2.5-4.9); POTASSIUM 3.7 mmol/L (3.5-5.1); SODIUM SERUM 135 mmol/L (136-145)
[2018-11-30 06:59] LABS: UREA NITROGEN, BLOOD 92 mg/dL (7-18)
[2018-11-30 07:57] VITALS: BP 145/64
[2018-11-30] MEDS: DOCUSATE SODIUM LIQ 100 MG/10 ML UDC GT SCH (08:56)
[2018-11-30] MEDS: ACIDOPHILUS/BULGARICUS 1 EACH TAB.CHEW GT SCH ×2 (08:57→20:39)
[2018-11-30] MEDS: ZINC SULFATE 220 MG CAPSULE GT SCH (08:57)
[2018-11-30] MEDS: APIXABAN 2.5 MG TABLET GT SCH ×2 (08:57→17:32)
[2018-11-30] MEDS: PROSOURCE / PROSTAT (PYXIS) 30 ML UDC GT SCH (08:57)
[2018-11-30] MEDS: METOPROLOL TARTRATE 25 MG TABLET GT SCH ×2 (08:57→20:38)
[2018-11-30] MEDS: MULTIVIT W/MINERALS 1 TAB TABLET GT SCH (08:57)
[2018-11-30] MEDS: ASCORBIC ACID 500 MG TABLET GT SCH (08:57)
[2018-11-30] MEDS: COD LIVER OIL/ZINC OXIDE 120 GM TUBE TP SCH ×3 (08:58→20:39)
[2018-11-30] MEDS: DAKINS QUARTER STRENGTH (0.125%) 480 ML BOTTLE TOP SCH ×2 (08:58→20:39)
[2018-11-30] MEDS: INSULIN DETEMIR 100 UNIT/ML CARTRIDGE SQ SCH ×2 (08:58→21:12)
[2018-11-30] MEDS: NEOMY SULF/BACITRAC ZN/POLY 15 GM TUBE TP SCH ×2 (08:59→20:39)
[2018-11-30] MEDS: Z GUARD REMEDY 4 OZ OINT TP SCH ×4 (08:59→20:39)
[2018-11-30] MEDS: NYSTATIN/TRIAMCIN 15 GM CREAM 15 GM TUBE TP SCH ×2 (08:59→20:39)
[2018-11-30] MEDS: HYDROGEN PEROXIDE 480 ML BOTTLE TP SCH ×2 (09:00→20:39)
[2018-11-30] MEDS: VITAMINS A AND D 56.7 GM TUBE TP SCH ×2 (09:00→20:39)
[2018-11-30] MEDS: TRAMADOL HCL 50 MG TABLET GT PRN (10:15)
[2018-11-30 12:00] VITALS: BP 124/61
[2018-11-30 18:18] VITALS: BP 104/65
[2018-11-30 19:59] VITALS: BP 95/55
[2018-11-30] MEDS: SENNOSIDES 8.6 MG TABLET GT SCH (21:17)
[2018-12-01] VITALS: BP 103/39
[2018-12-01] MEDS: IPRATROPIUM NEB FS 0.5 MG/2.5 ML AMPUL.NEB NEB SCH ×4 (01:24→19:21)
[2018-12-01] MEDS: METOCLOPRAMIDE HCL 10 MG TABLET GT SCH ×3 (05:30→17:20)
[2018-12-01] MEDS: BLOOD SUGAR DIAGNOSTIC 1 EACH STRIP IN SCH ×3 (05:30→17:20)
[2018-12-01] MEDS: BIOTENE MOISTURIZING MM SCH ×3 (05:30→17:20)
[2018-12-01 05:36] LABS: BASOPHILS % (AUTO) 0.3 % (0.0-2.0); EOSINOPHILS % (AUTO) 3.3 % (0.0-6.0); HEMATOCRIT 28 % (33-45); LYMPHOCYTES # (AUTO) 1.5 /CMM (0.8-4.8); LYMPHOCYTES % (AUTO) 14.5 % (20.0-44.0); MEAN CORPUSCULAR HGB CONC 33 g/dl (31.0-36.0); MEAN CORPUSCULAR VOLUME 81 fL (82-100); MONOCYTES # (AUTO) 0.7 /CMM (0.1-1.30); MONOCYTES % (AUTO) 6.9 % (2.0-12.0); PLATELET COUNT (AUTO) 332 /CMM (150-450); WHITE BLOOD COUNT (AUTO) 10.7 K/uL (4.3-11.0)
[2018-12-01] MEDS: INSULIN REGULAR, HUMAN 100 UNIT/ML 3 ML VIAL SQ PRN ×3 (06:03→17:22)
[2018-12-01 06:22] VITALS: BP 111/35
[2018-12-01] MEDS: DOCUSATE SODIUM LIQ 100 MG/10 ML UDC GT SCH (08:16)
[2018-12-01] MEDS: MULTIVIT W/MINERALS 1 TAB TABLET GT SCH (08:17)
[2018-12-01] MEDS: PROSOURCE / PROSTAT (PYXIS) 30 ML UDC GT SCH (08:17)
[2018-12-01] MEDS: ACIDOPHILUS/BULGARICUS 1 EACH TAB.CHEW GT SCH ×2 (08:17→21:21)
[2018-12-01] MEDS: ZINC SULFATE 220 MG CAPSULE GT SCH (08:17)
[2018-12-01] MEDS: APIXABAN 2.5 MG TABLET GT SCH ×2 (08:17→17:20)
[2018-12-01] MEDS: ASCORBIC ACID 500 MG TABLET GT SCH (08:17)
[2018-12-01] MEDS: METOPROLOL TARTRATE 25 MG TABLET GT SCH ×2 (08:18→21:00)
[2018-12-01] MEDS: Z GUARD REMEDY 4 OZ OINT TP SCH ×4 (08:22→21:23)
[2018-12-01] MEDS: VITAMINS A AND D 56.7 GM TUBE TP SCH ×2 (08:22→21:23)
[2018-12-01] MEDS: DAKINS QUARTER STRENGTH (0.125%) 480 ML BOTTLE TOP SCH ×2 (08:22→21:22)
[2018-12-01] MEDS: COD LIVER OIL/ZINC OXIDE 120 GM TUBE TP SCH ×3 (08:22→21:22)
[2018-12-01] MEDS: INSULIN DETEMIR 100 UNIT/ML CARTRIDGE SQ SCH ×2 (08:22→21:22)
[2018-12-01] MEDS: NYSTATIN/TRIAMCIN 15 GM CREAM 15 GM TUBE TP SCH ×2 (08:22→21:22)
[2018-12-01] MEDS: NEOMY SULF/BACITRAC ZN/POLY 15 GM TUBE TP SCH ×2 (08:22→21:22)
[2018-12-01] MEDS: HYDROGEN PEROXIDE 480 ML BOTTLE TP SCH ×2 (09:25→21:22)
[2018-12-01 11:28] VITALS: BP 137/71
[2018-12-01 12:00] VITALS: BP 123/75
--- NOTE | 2018-12-01 15:00 | NUR ---
Seen and examined by Dr. Ralph Mendoza, no new order given.
[2018-12-01 18:29] VITALS: BP 119/54
[2018-12-01 19:56] VITALS: BP 98/52
[2018-12-01] MEDS: SENNOSIDES 8.6 MG TABLET GT SCH (21:23)
[2018-12-02] MEDS: BLOOD SUGAR DIAGNOSTIC 1 EACH STRIP IN SCH ×4 (00:20→17:12)
[2018-12-02] MEDS: METOCLOPRAMIDE HCL 10 MG TABLET GT SCH ×4 (00:20→17:12)
[2018-12-02] MEDS: BIOTENE MOISTURIZING MM SCH ×4 (00:21→17:12)
[2018-12-02] MEDS: INSULIN REGULAR, HUMAN 100 UNIT/ML 3 ML VIAL SQ PRN ×3 (00:22→17:11)
[2018-12-02 00:27] VITALS: BP 128/79
[2018-12-02] MEDS: IPRATROPIUM NEB FS 0.5 MG/2.5 ML AMPUL.NEB NEB SCH ×4 (01:42→19:22)
[2018-12-02 06:16] VITALS: BP 132/68
[2018-12-02] MEDS: HYDROGEN PEROXIDE 480 ML BOTTLE TP SCH ×2 (08:25→21:12)
[2018-12-02] MEDS: ACIDOPHILUS/BULGARICUS 1 EACH TAB.CHEW GT SCH ×2 (09:28→21:10)
[2018-12-02] MEDS: MULTIVIT W/MINERALS 1 TAB TABLET GT SCH (09:28)
[2018-12-02] MEDS: PROSOURCE / PROSTAT (PYXIS) 30 ML UDC GT SCH (09:28)
[2018-12-02] MEDS: ZINC SULFATE 220 MG CAPSULE GT SCH (09:28)
[2018-12-02] MEDS: DAKINS QUARTER STRENGTH (0.125%) 480 ML BOTTLE TOP SCH ×2 (09:28→21:11)
[2018-12-02] MEDS: METOPROLOL TARTRATE 25 MG TABLET GT SCH ×2 (09:28→21:11)
[2018-12-02] MEDS: APIXABAN 2.5 MG TABLET GT SCH ×2 (09:28→17:12)
[2018-12-02] MEDS: DOCUSATE SODIUM LIQ 100 MG/10 ML UDC GT SCH (09:28)
[2018-12-02] MEDS: ASCORBIC ACID 500 MG TABLET GT SCH (09:28)
[2018-12-02] MEDS: INSULIN DETEMIR 100 UNIT/ML CARTRIDGE SQ SCH ×2 (09:28→21:11)
[2018-12-02] MEDS: VITAMINS A AND D 56.7 GM TUBE TP SCH ×2 (09:29→21:12)
[2018-12-02] MEDS: NYSTATIN/TRIAMCIN 15 GM CREAM 15 GM TUBE TP SCH ×2 (09:29→21:12)
[2018-12-02] MEDS: COD LIVER OIL/ZINC OXIDE 120 GM TUBE TP SCH ×3 (09:29→21:11)
[2018-12-02] MEDS: NEOMY SULF/BACITRAC ZN/POLY 15 GM TUBE TP SCH ×2 (09:29→21:12)
[2018-12-02] MEDS: Z GUARD REMEDY 4 OZ OINT TP SCH ×4 (09:29→21:12)
[2018-12-02 10:50] VITALS: BP 123/69
[2018-12-02 12:00] VITALS: BP 100/45
[2018-12-02] MEDS: MAGNESIUM HYDROXIDE 30 ML UDC GT PRN (18:25)
[2018-12-02 18:46] VITALS: BP 105/72
[2018-12-02 20:26] VITALS: BP 112/51
[2018-12-02] MEDS: SENNOSIDES 8.6 MG TABLET GT SCH (21:12)
[2018-12-03 00:11] VITALS: BP 109/76
[2018-12-03] MEDS: BIOTENE MOISTURIZING MM SCH ×4 (00:13→18:35)
[2018-12-03] MEDS: METOCLOPRAMIDE HCL 10 MG TABLET GT SCH ×4 (00:13→18:35)
[2018-12-03] MEDS: BLOOD SUGAR DIAGNOSTIC 1 EACH STRIP IN SCH ×4 (00:13→18:35)
[2018-12-03] MEDS: INSULIN REGULAR, HUMAN 100 UNIT/ML 3 ML VIAL SQ PRN ×4 (00:14→18:41)
[2018-12-03] MEDS: IPRATROPIUM NEB FS 0.5 MG/2.5 ML AMPUL.NEB NEB SCH ×4 (01:09→19:48)
[2018-12-03 06:06] VITALS: BP 128/72
--- NOTE | 2018-12-03 08:30 | NUR ---
Seen and examined by Dr. Patrick with new orders and carried out. 1/2 NS at 80 cc/h x 3 days for hydration. BMP on 12/06/18.
[2018-12-03] MEDS: ASCORBIC ACID 500 MG TABLET GT SCH (09:00)
[2018-12-03] MEDS: DAKINS QUARTER STRENGTH (0.125%) 480 ML BOTTLE TOP SCH ×2 (09:00→21:53)
[2018-12-03] MEDS: NEOMY SULF/BACITRAC ZN/POLY 15 GM TUBE TP SCH ×2 (09:00→21:53)
[2018-12-03] MEDS: VITAMINS A AND D 56.7 GM TUBE TP SCH ×2 (09:00→21:54)
[2018-12-03] MEDS: NYSTATIN/TRIAMCIN 15 GM CREAM 15 GM TUBE TP SCH ×2 (09:00→21:53)
[2018-12-03] MEDS: Z GUARD REMEDY 4 OZ OINT TP SCH ×4 (09:00→21:53)
[2018-12-03] MEDS: COD LIVER OIL/ZINC OXIDE 120 GM TUBE TP SCH ×3 (09:00→21:53)
[2018-12-03] MEDS: MULTIVIT W/MINERALS 1 TAB TABLET GT SCH (09:00)
[2018-12-03] MEDS: PROSOURCE / PROSTAT (PYXIS) 30 ML UDC GT SCH (09:00)
[2018-12-03] MEDS: ZINC SULFATE 220 MG CAPSULE GT SCH (09:00)
[2018-12-03] MEDS: ACIDOPHILUS/BULGARICUS 1 EACH TAB.CHEW GT SCH ×2 (09:00→21:14)
[2018-12-03] MEDS: INSULIN DETEMIR 100 UNIT/ML CARTRIDGE SQ SCH ×2 (09:00→21:16)
[2018-12-03] MEDS: APIXABAN 2.5 MG TABLET GT SCH ×2 (09:00→17:00)
[2018-12-03] MEDS: DOCUSATE SODIUM LIQ 100 MG/10 ML UDC GT SCH (09:00)
[2018-12-03] MEDS: METOPROLOL TARTRATE 25 MG TABLET GT SCH ×2 (09:00→21:15)
[2018-12-03] MEDS: HYDROGEN PEROXIDE 480 ML BOTTLE TP SCH ×2 (09:00→19:48)
[2018-12-03] MEDS: IV 1/2NS 1000 ML 1,000 ML IV PRN ×2 (09:45→23:21)
[2018-12-03 10:30] VITALS: BP 134/69
[2018-12-03 12:00] VITALS: BP 132/70
--- NOTE | 2018-12-03 13:00 | NUR ---
Seen and examined by Maria Fernanda Mata, no new order given.
[2018-12-03] MEDS ORDERED: ACETAMINOPHEN 650 MG/20.3 ML UDC GT PRN (13:30)
--- NOTE | 2018-12-03 17:00 | NUR ---
RP informed about new plan of care IV hydration x 3 days d/t elevated BUN, creatinine, appreciated the call.
[2018-12-03 18:00] VITALS: BP 118/61
[2018-12-03] MEDS: NEPRO 1,000 ML BOTTLE GT PRN (18:36)
[2018-12-03 19:43] VITALS: BP 117/56
[2018-12-03] MEDS: SENNOSIDES 8.6 MG TABLET GT SCH (21:17)
[2018-12-04] MEDS: METOCLOPRAMIDE HCL 10 MG TABLET GT SCH ×5 (00:26→23:16)
[2018-12-04] MEDS: BIOTENE MOISTURIZING MM SCH ×5 (00:27→23:16)
[2018-12-04] MEDS: BLOOD SUGAR DIAGNOSTIC 1 EACH STRIP IN SCH ×5 (00:27→23:16)
[2018-12-04] MEDS: INSULIN REGULAR, HUMAN 100 UNIT/ML 3 ML VIAL SQ PRN ×5 (00:28→23:17)
[2018-12-04 00:29] VITALS: BP 116/50
[2018-12-04] MEDS: IPRATROPIUM NEB FS 0.5 MG/2.5 ML AMPUL.NEB NEB SCH ×4 (02:01→20:18)
--- NOTE | 2018-12-04 03:30 | NUR ---
PATIENT RECEIVED ON TRACH TO VENT WITH SETTINGS OF AC 15, 450 VT, 30%, +5. SUCTIONED WITH LAVAGE FOR MINIMAL, THIN, FROTHY, WHITE SECRETIONS. GIVEN IN-LINE TREATMENTS WITH NO ADVERSE REACTIONS. AMBU BAG AT BEDSIDE. VENT AND PULSE OXIMETER ALARMS AUDIBLE AND VISIBLE. Addendum: 12/04/18 at 0332 by CAMMY MCELROY RT Amended: Links added.
[2018-12-04 06:37] VITALS: BP 142/59
[2018-12-04 07:40] VITALS: BP 132/49
[2018-12-04] MEDS: HYDROGEN PEROXIDE 480 ML BOTTLE TP SCH ×2 (08:02→20:54)
[2018-12-04] MEDS: INSULIN DETEMIR 100 UNIT/ML CARTRIDGE SQ SCH ×2 (09:23→20:54)
[2018-12-04] MEDS: PROSOURCE / PROSTAT (PYXIS) 30 ML UDC GT SCH (09:23)
[2018-12-04] MEDS: ASCORBIC ACID 500 MG TABLET GT SCH (09:23)
[2018-12-04] MEDS: MULTIVIT W/MINERALS 1 TAB TABLET GT SCH (09:23)
[2018-12-04] MEDS: ZINC SULFATE 220 MG CAPSULE GT SCH (09:23)
[2018-12-04] MEDS: ACETAMINOPHEN 650 MG/20.3 ML UDC GT SCH ×2 (09:24→20:50)
[2018-12-04] MEDS: APIXABAN 2.5 MG TABLET GT SCH ×2 (09:25→17:06)
[2018-12-04] MEDS: ACIDOPHILUS/BULGARICUS 1 EACH TAB.CHEW GT SCH ×2 (09:25→20:50)
[2018-12-04] MEDS: METOPROLOL TARTRATE 25 MG TABLET GT SCH ×2 (09:25→20:50)
[2018-12-04] MEDS: DOCUSATE SODIUM LIQ 100 MG/10 ML UDC GT SCH (09:25)
[2018-12-04] MEDS: VITAMINS A AND D 56.7 GM TUBE TP SCH ×2 (10:00→20:56)
[2018-12-04] MEDS: NEOMY SULF/BACITRAC ZN/POLY 15 GM TUBE TP SCH ×2 (10:00→20:55)
[2018-12-04] MEDS: COD LIVER OIL/ZINC OXIDE 120 GM TUBE TP SCH ×3 (10:00→20:54)
[2018-12-04] MEDS: DAKINS QUARTER STRENGTH (0.125%) 480 ML BOTTLE TOP SCH ×2 (10:00→20:54)
[2018-12-04] MEDS: Z GUARD REMEDY 4 OZ OINT TP SCH ×5 (10:00→20:55)
[2018-12-04] MEDS: IV 1/2NS 1000 ML 1,000 ML IV PRN (10:50)
[2018-12-04 12:00] VITALS: BP 136/84
--- NOTE | 2018-12-04 16:28 | NUR ---
SW completed social worker health services portion of 1st quarter MDS. The resident daughter, Jennifer Perdomo [phone] is the responsible constitution party. The patient has his dental cleaning in June 2018 and Cleaning in July 2018. The patient had his annual optometry exam on August 2018.
[2018-12-04 18:21] VITALS: BP 111/66
[2018-12-04] MEDS: NEPRO 1,000 ML BOTTLE GT PRN (18:47)
[2018-12-04 20:18] VITALS: BP 121/76
[2018-12-04] MEDS: NYSTATIN/TRIAMCIN CREAM 15 GM TUBE TP SCH (20:55)
[2018-12-04] MEDS: SENNOSIDES 8.6 MG TABLET GT SCH (21:07)
--- NOTE | 2018-12-04 21:18 | NUR ---
Seen and examined by Maria Fernanda ABAD.
--- NOTE | 2018-12-04 22:37 | NUR ---
Pt rec'd trached on [facility] vent settings as charted. no resp distress or sob noted. trach is patent and secured. sx'd for thick mod amt of pale yellow secretions. alarms are set and audible. vent plugged into red outlet. ambu bag bedside. will continue to monitor. Addendum: 12/04/18 at 2237 by TALA YAO RT Amended: Links added.
[2018-12-05 00:22] VITALS: BP 119/76
[2018-12-05] MEDS: IV 1/2NS 1000 ML 1,000 ML IV PRN ×2 (01:10→14:00)
[2018-12-05] MEDS: IPRATROPIUM NEB FS 0.5 MG/2.5 ML AMPUL.NEB NEB SCH ×4 (01:29→19:50)
[2018-12-05] MEDS: BIOTENE MOISTURIZING MM SCH ×4 (05:25→23:46)
[2018-12-05] MEDS: METOCLOPRAMIDE HCL 10 MG TABLET GT SCH ×4 (05:25→23:46)
[2018-12-05] MEDS: BLOOD SUGAR DIAGNOSTIC 1 EACH STRIP IN SCH ×4 (05:25→23:46)
[2018-12-05] MEDS: INSULIN REGULAR, HUMAN 100 UNIT/ML 3 ML VIAL SQ PRN ×4 (05:26→23:48)
[2018-12-05 06:23] VITALS: BP 141/45
[2018-12-05 08:03] VITALS: BP 139/48
[2018-12-05] MEDS: VITAMINS A AND D 56.7 GM TUBE TP SCH ×2 (09:00→20:24)
[2018-12-05] MEDS: NYSTATIN/TRIAMCIN CREAM 15 GM TUBE TP SCH ×2 (09:00→20:23)
[2018-12-05] MEDS: Z GUARD REMEDY 4 OZ OINT TP SCH ×6 (09:00→20:24)
[2018-12-05] MEDS: DAKINS QUARTER STRENGTH (0.125%) 480 ML BOTTLE TOP SCH ×2 (09:00→20:23)
[2018-12-05] MEDS: COD LIVER OIL/ZINC OXIDE 120 GM TUBE TP SCH ×3 (09:00→20:23)
[2018-12-05] MEDS: HYDROGEN PEROXIDE 480 ML BOTTLE TP SCH ×2 (09:00→20:23)
[2018-12-05] MEDS: NEOMY SULF/BACITRAC ZN/POLY 15 GM TUBE TP SCH ×2 (09:00→20:24)
[2018-12-05] MEDS: APIXABAN 2.5 MG TABLET GT SCH ×2 (09:21→16:32)
[2018-12-05] MEDS: ACIDOPHILUS/BULGARICUS 1 EACH TAB.CHEW GT SCH ×2 (09:21→20:22)
[2018-12-05] MEDS: DOCUSATE SODIUM LIQ 100 MG/10 ML UDC GT SCH (09:21)
[2018-12-05] MEDS: ACETAMINOPHEN 650 MG/20.3 ML UDC GT SCH ×2 (09:22→20:23)
[2018-12-05] MEDS: ZINC SULFATE 220 MG CAPSULE GT SCH (09:22)
[2018-12-05] MEDS: PROSOURCE / PROSTAT (PYXIS) 30 ML UDC GT SCH (09:22)
[2018-12-05] MEDS: ASCORBIC ACID 500 MG TABLET GT SCH (09:22)
[2018-12-05] MEDS: MULTIVIT W/MINERALS 1 TAB TABLET GT SCH (09:22)
[2018-12-05] MEDS: METOPROLOL TARTRATE 25 MG TABLET GT SCH ×2 (09:22→20:23)
[2018-12-05] MEDS: INSULIN DETEMIR 100 UNIT/ML CARTRIDGE SQ SCH ×2 (09:23→21:10)
[2018-12-05 12:00] VITALS: BP 132/56
[2018-12-05 18:00] VITALS: BP 170/72
[2018-12-05 20:39] VITALS: BP 120/48
[2018-12-05] MEDS: SENNOSIDES 8.6 MG TABLET GT SCH (21:09)
--- NOTE | 2018-12-05 21:12 | NUR ---
Pt Rec'd trached on [facility] vent settings as charted. no resp distress or sob noted. trach is patent and secured. sx'd for thick mod amt of pale yellow secretions. alarms are set audible. vent plugged into red outlet. ambu bag bedside. will continue to monitor. Addendum: 12/05/18 at 2112 by TALA YAO RT Amended: Links added.
[2018-12-06] VITALS (7 sets, daily range): BP systolic 103–160; BP diastolic 40–84
[2018-12-06] MEDS: IPRATROPIUM NEB FS 0.5 MG/2.5 ML AMPUL.NEB NEB SCH ×4 (01:52→19:20)
[2018-12-06] MEDS: METOCLOPRAMIDE HCL 10 MG TABLET GT SCH ×4 (05:09→23:38)
[2018-12-06] MEDS: BIOTENE MOISTURIZING MM SCH ×4 (05:09→23:38)
[2018-12-06] MEDS: NEPRO 1,000 ML BOTTLE GT PRN (05:11)
[2018-12-06] MEDS: BLOOD SUGAR DIAGNOSTIC 1 EACH STRIP IN SCH ×4 (06:21→23:38)
[2018-12-06] MEDS: INSULIN REGULAR, HUMAN 100 UNIT/ML 3 ML VIAL SQ PRN ×4 (06:22→23:39)
[2018-12-06 07:46] LABS: CALCIUM, SERUM 9.6 mg/dL (8.5-10.1); CARBON DIOXIDE 24 mmol/L (21-32); CHLORIDE 100 mmol/L (98-107); CREATININE 1.8 mg/dL (0.6-1.3); GLUCOSE 160 mg/dL (74-106); POTASSIUM 4.6 mmol/L (3.5-5.1); SODIUM SERUM 135 mmol/L (136-145); UREA NITROGEN, BLOOD 75 mg/dL (7-18)
[2018-12-06] MEDS: DOCUSATE SODIUM LIQ 100 MG/10 ML UDC GT SCH (09:07)
[2018-12-06] MEDS: APIXABAN 2.5 MG TABLET GT SCH ×2 (09:08→17:33)
[2018-12-06] MEDS: ACIDOPHILUS/BULGARICUS 1 EACH TAB.CHEW GT SCH ×2 (09:08→21:18)
[2018-12-06] MEDS: ACETAMINOPHEN 650 MG/20.3 ML UDC GT SCH ×2 (09:09→21:21)
[2018-12-06] MEDS: PROSOURCE / PROSTAT (PYXIS) 30 ML UDC GT SCH (09:09)
[2018-12-06] MEDS: MULTIVIT W/MINERALS 1 TAB TABLET GT SCH (09:09)
[2018-12-06] MEDS: ASCORBIC ACID 500 MG TABLET GT SCH (09:09)
[2018-12-06] MEDS: ZINC SULFATE 220 MG CAPSULE GT SCH (09:09)
[2018-12-06] MEDS: METOPROLOL TARTRATE 25 MG TABLET GT SCH ×2 (09:09→21:21)
[2018-12-06] MEDS: INSULIN DETEMIR 100 UNIT/ML CARTRIDGE SQ SCH ×2 (09:10→21:21)
[2018-12-06] MEDS: COD LIVER OIL/ZINC OXIDE 120 GM TUBE TP SCH ×3 (09:39→21:22)
[2018-12-06] MEDS: NYSTATIN/TRIAMCIN CREAM 15 GM TUBE TP SCH ×2 (09:39→21:22)
[2018-12-06] MEDS: VITAMINS A AND D 56.7 GM TUBE TP SCH ×2 (09:39→21:22)
[2018-12-06] MEDS: Z GUARD REMEDY 4 OZ OINT TP SCH ×6 (09:39→21:22)
[2018-12-06] MEDS: NEOMY SULF/BACITRAC ZN/POLY 15 GM TUBE TP SCH ×2 (09:39→21:22)
[2018-12-06] MEDS: DAKINS QUARTER STRENGTH (0.125%) 480 ML BOTTLE TOP SCH ×2 (09:39→21:22)
[2018-12-06] MEDS: HYDROGEN PEROXIDE 480 ML BOTTLE TP SCH ×2 (09:57→21:17)
[2018-12-06] MEDS: CEFEPIME 1 GM in IV D5W 50 ML IV SCH (10:00)
--- NOTE | 2018-12-06 16:00 | NUR ---
Notified Dr. Stan Rico, resident has T 101.0, cooling measure rendered but not effective. New order given for blood culture, UA and CXR. Orders carried out.
[2018-12-06 18:38] LABS: BASOPHILS % (AUTO) 0.2 % (0.0-2.0); EOSINOPHILS % (AUTO) 0.1 % (0.0-6.0); HEMATOCRIT 30 % (33-45); HEMOGLOBIN 9.4 g/dL (11.5-14.8); LYMPHOCYTES # (AUTO) 1.2 /CMM (0.8-4.8); LYMPHOCYTES % (AUTO) 5.3 % (20.0-44.0); MEAN CORPUSCULAR HGB CONC 31 g/dl (31.0-36.0); MEAN CORPUSCULAR VOLUME 82 fL (82-100); MONOCYTES % (AUTO) 4.3 % (2.0-12.0); NEUTROPHILS # (AUTO) 20.2 /CMM (1.8-8.9); NEUTROPHILS % (AUTO) 90.1 % (43.0-81.0); PLATELET COUNT (AUTO) 267 /CMM (150-450); RED BLOOD CELL COUNT(AUTO) 3.68 MIL/uL (4.0-5.2); WHITE BLOOD COUNT (AUTO) 22.4 K/uL (4.3-11.0)
--- NOTE | 2018-12-06 18:55 | NUR ---
Notified HEAVY FORGER HELPER Donny Hoover of patient's fever and current order given by Dr. Rico. HEAVY FORGER HELPER assessed patient abdominal wound and reviewed recent labs with new order for more labs and abdominal ultrasound to r/o abscess. New order to start ATB once blood culture is collected. Spoke with [facility], confirmed that medication is covered by patient's insurance. Endorsed to incoming shift to carry out order. Notified resident's daughter Jennifer of patient's change in condition. Appreciated the call. She said that she will visit patient next week.
[2018-12-06] MEDS: ACETAMINOPHEN 650 MG/20 ML UDC- SA PATIENTS-FEVER ONLY GT PRN (19:01)
[2018-12-06 20:11] LABS: BILIRUBIN,DIRECT 0.1 mg/dL (0.0-0.2); BILIRUBIN,TOTAL 0.3 mg/dL (0.2-1.0)
--- NOTE | 2018-12-06 20:30 | NUR ---
IV Vancomycin given. meds taken from IV Ekit. will continue to monitor patient.
--- NOTE | 2018-12-06 21:05 | NUR ---
Charge nurse called Donny Hoover NP to informed her about the elevated WBC result of 22.4 and also Lactic Acid result 2.1. Spoke with Kiko VARELA. She said she's aware and that she order repeat CBC in the morning and BMP. She also suggested to FYI the primary.
--- NOTE | 2018-12-06 21:15 | NUR ---
Charge nurse GARRY Hunt and Stan Rico BUSINESS PROCESS REPRESENTATIVE about the patient's Lab result of elevated WBC and Lactic Acid. Will wait for the respond.
[2018-12-06] MEDS: SENNOSIDES 8.6 MG TABLET GT SCH (21:22)
--- NOTE | 2018-12-06 21:25 | NUR ---
Dr. Hunt responded with new order to Start IV fluids of 1/2 NS at 80ml/hr.
--- NOTE | 2018-12-06 21:45 | NUR ---
Dr. Rico Responded with recommendation to transfer patient to Acute care. Charge nurse GARRY Hunt of Dr. Rico's recommendation and will wait for respond.
--- NOTE | 2018-12-06 21:55 | NUR ---
Dr. Hunt Asked for the latest VS. Charge nurse informed him Temp=99.1 YB=369/57 HR=77 RR=17 and also the repeat Lactic Acid is 1.8. Dr. Hunt stated that no need to transfer patient and to just continue to give the ATB and the IV Fluids order and repeat CBC and BMP order. SC also GARRY Guerrero of Dr. Hunt's order.
--- NOTE | 2018-12-06 22:00 | NUR ---
IV Cefipime given. Meds taken from Ekit. Patient is calm and asleep. will continue to monitor.
[2018-12-07 00:23] VITALS: BP 103/45
[2018-12-07] MEDS: IPRATROPIUM NEB FS 0.5 MG/2.5 ML AMPUL.NEB NEB SCH ×4 (01:40→19:23)
[2018-12-07] MEDS: NEPRO 1,000 ML BOTTLE GT PRN (02:56)
[2018-12-07 04:33] LABS: BILIRUBIN,URINE NEGATIVE (NEGATIVE); BLOOD, URINE TRACE-INTA Ery/uL (NEGATIVE); COLOR,URINE YELLOW (YELLOW); KETONES,URINE NEGATIVE (NEGATIVE); LEUKOCYTE ESTERASE ,URINE 3+ (NEGATIVE); NITRITE, URINE NEGATIVE (NEGATIVE); PROTEIN,URINE 1+ mg/dl (NEGATIVE); UGLUCOSE NEGATIVE (NEGATIVE); UROBILINOGEN,URINE 0.2 EU/dL (0.2)
[2018-12-07 05:12] LABS: APPEARANCE,URINE HAZY (CLEAR)
[2018-12-07] MEDS: BIOTENE MOISTURIZING MM SCH ×4 (05:15→23:36)
[2018-12-07] MEDS: MAGNESIUM HYDROXIDE 30 ML UDC GT PRN ×2 (05:15→22:00)
[2018-12-07] MEDS: BLOOD SUGAR DIAGNOSTIC 1 EACH STRIP IN SCH ×4 (05:15→23:36)
[2018-12-07] MEDS: METOCLOPRAMIDE HCL 10 MG TABLET GT SCH ×4 (05:15→23:36)
[2018-12-07] MEDS: INSULIN REGULAR, HUMAN 100 UNIT/ML 3 ML VIAL SQ PRN ×4 (05:16→23:36)
[2018-12-07 05:45] LABS: BACTERIA,URINE Few /HPF (None Seen); SQUAMOUS EPITHELIAL CELL,UR Few /HPF (None Seen); YEAST,URINE Few /HPF (None Seen)
--- NOTE | 2018-12-07 05:55 | NUR ---
Called in for stat US abscess localization but I had already done routine order for same exam last night 12/06/18 @1999. Routine exam was not resulted. I called KELL at 0550 to have it resulted JORDI. Notified JAY Nguyễn
[2018-12-07 06:15] VITALS: BP 129/66
[2018-12-07 08:00] LABS: BASOPHILS % (AUTO) 0.2 % (0.0-2.0); EOSINOPHILS % (AUTO) 0.6 % (0.0-6.0); HEMATOCRIT 26 % (33-45); MEAN CORPUSCULAR HGB CONC 31 g/dl (31.0-36.0); MEAN CORPUSCULAR VOLUME 83 fL (82-100); MONOCYTES % (AUTO) 6.7 % (2.0-12.0); NEUTROPHILS # (AUTO) 12.3 /CMM (1.8-8.9); NEUTROPHILS % (AUTO) 85.5 % (43.0-81.0); PLATELET COUNT (AUTO) 221 /CMM (150-450); RED BLOOD CELL COUNT(AUTO) 3.13 MIL/uL (4.0-5.2); WHITE BLOOD COUNT (AUTO) 14.4 K/uL (4.3-11.0)
[2018-12-07 08:24] LABS: CALCIUM, SERUM 8.5 mg/dL (8.5-10.1); CARBON DIOXIDE 25 mmol/L (21-32); CHLORIDE 101 mmol/L (98-107); CREATININE 1.9 mg/dL (0.6-1.3); GLUCOSE 208 mg/dL (74-106); POTASSIUM 4.5 mmol/L (3.5-5.1); SODIUM SERUM 133 mmol/L (136-145); UREA NITROGEN, BLOOD 72 mg/dL (7-18)
[2018-12-07] MEDS: HYDROGEN PEROXIDE 480 ML BOTTLE TP SCH ×2 (09:00→21:57)
[2018-12-07] MEDS: COD LIVER OIL/ZINC OXIDE 120 GM TUBE TP SCH ×3 (09:00→21:57)
[2018-12-07] MEDS: VITAMINS A AND D 56.7 GM TUBE TP SCH ×2 (09:00→21:58)
[2018-12-07] MEDS: NEOMY SULF/BACITRAC ZN/POLY 15 GM TUBE TP SCH ×2 (09:00→21:57)
[2018-12-07] MEDS: DAKINS QUARTER STRENGTH (0.125%) 480 ML BOTTLE TOP SCH ×2 (09:00→21:57)
[2018-12-07] MEDS: Z GUARD REMEDY 4 OZ OINT TP SCH ×6 (09:00→21:58)
[2018-12-07] MEDS: NYSTATIN/TRIAMCIN CREAM 15 GM TUBE TP SCH ×2 (09:00→21:57)
[2018-12-07] MEDS: APIXABAN 2.5 MG TABLET GT SCH ×2 (09:36→17:51)
[2018-12-07] MEDS: DOCUSATE SODIUM LIQ 100 MG/10 ML UDC GT SCH (09:36)
[2018-12-07] MEDS: ACIDOPHILUS/BULGARICUS 1 EACH TAB.CHEW GT SCH ×2 (09:36→21:56)
[2018-12-07] MEDS: PROSOURCE / PROSTAT (PYXIS) 30 ML UDC GT SCH (09:37)
[2018-12-07] MEDS: ASCORBIC ACID 500 MG TABLET GT SCH (09:37)
[2018-12-07] MEDS: ACETAMINOPHEN 650 MG/20.3 ML UDC GT SCH ×2 (09:37→21:56)
[2018-12-07] MEDS: ZINC SULFATE 220 MG CAPSULE GT SCH (09:37)
[2018-12-07] MEDS: METOPROLOL TARTRATE 25 MG TABLET GT SCH ×2 (09:37→21:56)
[2018-12-07] MEDS: MULTIVIT W/MINERALS 1 TAB TABLET GT SCH (09:37)
[2018-12-07] MEDS: INSULIN DETEMIR 100 UNIT/ML CARTRIDGE SQ SCH ×2 (09:40→21:57)
[2018-12-07] MEDS: CEFEPIME 1 GM in IV D5W 50 ML IV SCH ×2 (10:00→22:00)
[2018-12-07 12:00] VITALS: BP 137/70
[2018-12-07 12:01] VITALS: BP 111/55
--- NOTE | 2018-12-07 15:45 | NUR ---
Called and notified AUTO TRANSMISSION MECHANIC Aure Hoover regarding all lab results, made aware of elevated BUN 72, needs to be followed up by nephrology, WBC went down to 14.5, Hgb-8. She is also aware of chest x ray result. Continue with IV ATBs and 1/2 NS at 80 ml/hr. Per AUTO TRANSMISSION MECHANIC she will be at subacute later. latest v/s 137/70, 87, temp. 98.9, RR 15, 02 sat 100%. Patient closely monitored.
--- NOTE | 2018-12-07 17:15 | NUR ---
AVERY Hoover came , she examined patient, she also looked at the abdominal wound, she ordered wound culture to abdominal wound. She is aware of x ray results. Ultrasound still pending. She ordered CBC and BMP seth in am. Collected specimen on abdominal wound for C and S, called to lab, will continuous pickling line pickler in ICU ref., per protocol. Patient closely monitored.
[2018-12-07 18:00] VITALS: BP 130/68
[2018-12-07] MEDS: IV 1/2NS 1000 ML 1,000 ML IV PRN (19:50)
[2018-12-07 19:52] VITALS: BP 108/42
[2018-12-07] MEDS: SENNOSIDES 8.6 MG TABLET GT SCH (21:58)
[2018-12-08] VITALS: BP 126/46
[2018-12-08] MEDS: IPRATROPIUM NEB FS 0.5 MG/2.5 ML AMPUL.NEB NEB SCH ×4 (01:50→19:23)
[2018-12-08] MEDS: METOCLOPRAMIDE HCL 10 MG TABLET GT SCH ×4 (05:10→23:29)
[2018-12-08] MEDS: BLOOD SUGAR DIAGNOSTIC 1 EACH STRIP IN SCH ×4 (05:10→23:29)
[2018-12-08] MEDS: BIOTENE MOISTURIZING MM SCH ×4 (05:10→23:30)
[2018-12-08] MEDS: INSULIN REGULAR, HUMAN 100 UNIT/ML 3 ML VIAL SQ PRN ×4 (05:11→23:31)
[2018-12-08] MEDS: NEPRO 1,000 ML BOTTLE GT PRN (05:11)
[2018-12-08 06:00] VITALS: BP 130/62
[2018-12-08] MEDS: BISACODYL SUPP (10 MG) 10 MG/SUPP.RECT SUPP.RECT RC PRN (06:18)
[2018-12-08 06:34] LABS: BASOPHILS % (AUTO) 0.5 % (0.0-2.0); EOSINOPHILS % (AUTO) 2.7 % (0.0-6.0); HEMATOCRIT 22 % (33-45); LYMPHOCYTES % (AUTO) 10.1 % (20.0-44.0); MEAN CORPUSCULAR HGB CONC 32 g/dl (31.0-36.0); MEAN CORPUSCULAR VOLUME 82 fL (82-100); MONOCYTES # (AUTO) 0.8 /CMM (0.1-1.30); MONOCYTES % (AUTO) 7.3 % (2.0-12.0); NEUTROPHILS # (AUTO) 8.1 /CMM (1.8-8.9); NEUTROPHILS % (AUTO) 79.4 % (43.0-81.0); PLATELET COUNT (AUTO) 208 /CMM (150-450); RED BLOOD CELL COUNT(AUTO) 2.65 MIL/uL (4.0-5.2); WHITE BLOOD COUNT (AUTO) 10.2 K/uL (4.3-11.0)
[2018-12-08 06:56] LABS: CALCIUM, SERUM 8.3 mg/dL (8.5-10.1); CARBON DIOXIDE 25 mmol/L (21-32); CHLORIDE 102 mmol/L (98-107); CREATININE 1.9 mg/dL (0.6-1.3); GLUCOSE 188 mg/dL (74-106); POTASSIUM 3.8 mmol/L (3.5-5.1); SODIUM SERUM 137 mmol/L (136-145); UREA NITROGEN, BLOOD 75 mg/dL (7-18)
[2018-12-08 07:42] VITALS: BP 91/60
--- NOTE | 2018-12-08 07:57 | NUR ---
Pt's Hgb 7.0 Hct 22. Left message for Dr Patrick.
[2018-12-08] MEDS: ZINC SULFATE 220 MG CAPSULE GT SCH (09:00)
[2018-12-08] MEDS: ASCORBIC ACID 500 MG TABLET GT SCH (09:00)
[2018-12-08] MEDS: ACIDOPHILUS/BULGARICUS 1 EACH TAB.CHEW GT SCH ×2 (09:00→21:29)
[2018-12-08] MEDS: PROSOURCE / PROSTAT (PYXIS) 30 ML UDC GT SCH (09:00)
[2018-12-08] MEDS: ACETAMINOPHEN 650 MG/20.3 ML UDC GT SCH ×2 (09:00→21:29)
[2018-12-08] MEDS: APIXABAN 2.5 MG TABLET GT SCH ×2 (09:00→17:39)
[2018-12-08] MEDS: MULTIVIT W/MINERALS 1 TAB TABLET GT SCH (09:00)
[2018-12-08] MEDS: DOCUSATE SODIUM LIQ 100 MG/10 ML UDC GT SCH (09:00)
[2018-12-08] MEDS: HYDROGEN PEROXIDE 480 ML BOTTLE TP SCH ×2 (09:00→21:00)
[2018-12-08] MEDS: METOPROLOL TARTRATE 25 MG TABLET GT SCH ×2 (09:00→21:29)
[2018-12-08] MEDS: NEOMY SULF/BACITRAC ZN/POLY 15 GM TUBE TP SCH ×2 (09:00→21:54)
--- NOTE | 2018-12-08 09:08 | NUR ---
Called Dr Patrick's office and left message with Fatou regarding Hgb 7.0 Hct 22.
--- NOTE | 2018-12-08 09:20 | NUR ---
Spoke with Dr Patrick. Relayed lab results to him. He said not to give any blood transfusions for now and he will see pt later.
[2018-12-08] MEDS: DAKINS QUARTER STRENGTH (0.125%) 480 ML BOTTLE TOP SCH ×2 (09:30→21:54)
[2018-12-08] MEDS: VITAMINS A AND D 56.7 GM TUBE TP SCH ×2 (09:30→21:54)
[2018-12-08] MEDS: COD LIVER OIL/ZINC OXIDE 120 GM TUBE TP SCH ×3 (09:30→21:54)
[2018-12-08] MEDS: NYSTATIN/TRIAMCIN CREAM 15 GM TUBE TP SCH ×2 (09:30→21:54)
[2018-12-08] MEDS: Z GUARD REMEDY 4 OZ OINT TP SCH ×6 (09:30→21:54)
[2018-12-08] MEDS: CEFEPIME 1 GM in IV D5W 50 ML IV SCH ×2 (10:00→22:00)
[2018-12-08] MEDS: IV 1/2NS 1000 ML 1,000 ML IV PRN (10:00)
[2018-12-08] MEDS: INSULIN DETEMIR 100 UNIT/ML CARTRIDGE SQ SCH ×2 (10:01→21:30)
[2018-12-08 12:00] VITALS: BP 139/59
--- NOTE | 2018-12-08 14:00 | NUR ---
Seen by Dr Patrick. No new order.
[2018-12-08 18:00] VITALS: BP 116/52
[2018-12-08] MEDS: VANCOMYCIN 1 GM in IV D5W 250ml IV SCH (20:00)
[2018-12-08 20:09] VITALS: BP 115/66
[2018-12-08] MEDS: SENNOSIDES 8.6 MG TABLET GT SCH (21:30)
[2018-12-09 00:39] VITALS: BP 120/56
[2018-12-09] MEDS: IPRATROPIUM NEB FS 0.5 MG/2.5 ML AMPUL.NEB NEB SCH ×4 (01:37→19:40)
[2018-12-09] MEDS: BLOOD SUGAR DIAGNOSTIC 1 EACH STRIP IN SCH ×4 (05:57→23:13)
[2018-12-09] MEDS: METOCLOPRAMIDE HCL 10 MG TABLET GT SCH ×4 (05:57→23:13)
[2018-12-09] MEDS: BIOTENE MOISTURIZING MM SCH ×4 (05:58→23:13)
[2018-12-09] MEDS: INSULIN REGULAR, HUMAN 100 UNIT/ML 3 ML VIAL SQ PRN ×4 (05:59→23:14)
[2018-12-09] MEDS: NEPRO 1,000 ML BOTTLE GT PRN (06:05)
[2018-12-09 06:21] VITALS: BP 125/58
[2018-12-09 07:52] VITALS: BP 116/67
[2018-12-09] MEDS: VITAMINS A AND D 56.7 GM TUBE TP SCH ×2 (09:00→22:00)
[2018-12-09] MEDS: HYDROGEN PEROXIDE 480 ML BOTTLE TP SCH ×2 (09:00→21:00)
[2018-12-09] MEDS: NEOMY SULF/BACITRAC ZN/POLY 15 GM TUBE TP SCH ×2 (09:00→22:00)
[2018-12-09] MEDS: Z GUARD REMEDY 4 OZ OINT TP SCH ×6 (09:00→22:00)
[2018-12-09] MEDS: NYSTATIN/TRIAMCIN CREAM 15 GM TUBE TP SCH ×2 (09:30→22:00)
[2018-12-09] MEDS: DAKINS QUARTER STRENGTH (0.125%) 480 ML BOTTLE TOP SCH ×2 (09:30→22:00)
[2018-12-09] MEDS: COD LIVER OIL/ZINC OXIDE 120 GM TUBE TP SCH ×3 (09:30→22:00)
[2018-12-09] MEDS: APIXABAN 2.5 MG TABLET GT SCH ×2 (09:51→17:43)
[2018-12-09] MEDS: DOCUSATE SODIUM LIQ 100 MG/10 ML UDC GT SCH (09:51)
[2018-12-09] MEDS: PROSOURCE / PROSTAT (PYXIS) 30 ML UDC GT SCH (09:51)
[2018-12-09] MEDS: ACIDOPHILUS/BULGARICUS 1 EACH TAB.CHEW GT SCH ×2 (09:51→21:10)
[2018-12-09] MEDS: MULTIVIT W/MINERALS 1 TAB TABLET GT SCH (09:51)
[2018-12-09] MEDS: ASCORBIC ACID 500 MG TABLET GT SCH (09:51)
[2018-12-09] MEDS: ZINC SULFATE 220 MG CAPSULE GT SCH (09:51)
[2018-12-09] MEDS: ACETAMINOPHEN 650 MG/20.3 ML UDC GT SCH ×2 (09:51→21:11)
[2018-12-09] MEDS: IV 1/2NS 1000 ML 1,000 ML IV PRN ×2 (09:58→22:38)
[2018-12-09] MEDS: METOPROLOL TARTRATE 25 MG TABLET GT SCH ×2 (09:58→21:00)
[2018-12-09] MEDS: CEFEPIME 1 GM in IV D5W 50 ML IV SCH ×2 (10:00→22:38)
--- NOTE | 2018-12-09 10:00 | NUR ---
Seen by AVERY Krishnamurthy. Relayed abdominal wound culture result to her. No new order.
[2018-12-09] MEDS: INSULIN DETEMIR 100 UNIT/ML CARTRIDGE SQ SCH ×2 (10:35→21:42)
[2018-12-09 12:30] VITALS: BP 110/52
[2018-12-09 18:47] VITALS: BP 123/44
[2018-12-09 20:15] VITALS: BP 94/63
[2018-12-09] MEDS: SENNOSIDES 8.6 MG TABLET GT SCH (21:11)
[2018-12-10 00:43] VITALS: BP 102/56
[2018-12-10] MEDS: IPRATROPIUM NEB FS 0.5 MG/2.5 ML AMPUL.NEB NEB SCH ×4 (01:53→20:16)
[2018-12-10] MEDS: BIOTENE MOISTURIZING MM SCH ×4 (05:48→23:46)
[2018-12-10] MEDS: METOCLOPRAMIDE HCL 10 MG TABLET GT SCH ×4 (05:48→23:46)
[2018-12-10] MEDS: BLOOD SUGAR DIAGNOSTIC 1 EACH STRIP IN SCH ×4 (05:48→23:46)
[2018-12-10] MEDS: INSULIN REGULAR, HUMAN 100 UNIT/ML 3 ML VIAL SQ PRN ×4 (05:49→23:46)
[2018-12-10 06:15] VITALS: BP 110/60
[2018-12-10 07:59] VITALS: BP 152/57
[2018-12-10] MEDS: HYDROGEN PEROXIDE 480 ML BOTTLE TP SCH ×2 (08:11→21:06)
[2018-12-10] MEDS: COD LIVER OIL/ZINC OXIDE 120 GM TUBE TP SCH ×3 (09:00→21:48)
[2018-12-10] MEDS: VITAMINS A AND D 56.7 GM TUBE TP SCH ×2 (09:00→21:48)
[2018-12-10] MEDS: NEOMY SULF/BACITRAC ZN/POLY 15 GM TUBE TP SCH ×2 (09:00→21:48)
[2018-12-10] MEDS: Z GUARD REMEDY 4 OZ OINT TP SCH ×6 (09:00→21:48)
[2018-12-10] MEDS: NYSTATIN/TRIAMCIN CREAM 15 GM TUBE TP SCH ×2 (09:00→21:48)
[2018-12-10] MEDS: DAKINS QUARTER STRENGTH (0.125%) 480 ML BOTTLE TOP SCH ×2 (09:00→21:47)
[2018-12-10] MEDS: DOCUSATE SODIUM LIQ 100 MG/10 ML UDC GT SCH (09:21)
[2018-12-10] MEDS: INSULIN DETEMIR 100 UNIT/ML CARTRIDGE SQ SCH ×2 (09:22→21:47)
[2018-12-10] MEDS: ZINC SULFATE 220 MG CAPSULE GT SCH (09:22)
[2018-12-10] MEDS: ACETAMINOPHEN 650 MG/20.3 ML UDC GT SCH ×2 (09:22→21:15)
[2018-12-10] MEDS: MULTIVIT W/MINERALS 1 TAB TABLET GT SCH (09:22)
[2018-12-10] MEDS: APIXABAN 2.5 MG TABLET GT SCH ×2 (09:22→17:35)
[2018-12-10] MEDS: ACIDOPHILUS/BULGARICUS 1 EACH TAB.CHEW GT SCH ×2 (09:22→21:14)
[2018-12-10] MEDS: ASCORBIC ACID 500 MG TABLET GT SCH (09:22)
[2018-12-10] MEDS: METOPROLOL TARTRATE 25 MG TABLET GT SCH ×2 (09:22→21:14)
[2018-12-10] MEDS: PROSOURCE / PROSTAT (PYXIS) 30 ML UDC GT SCH (09:22)
[2018-12-10] MEDS: CEFEPIME 1 GM in IV D5W 50 ML IV SCH ×2 (10:00→22:00)
[2018-12-10 12:00] VITALS: BP 123/59
[2018-12-10] MEDS: IV 1/2NS 1000 ML 1,000 ML IV PRN (15:08)
--- NOTE | 2018-12-10 17:05 | NUR ---
Left a message to Dr. Patrick if he wants to have a follow-up labs since Hgb result on 12/08 is 7.0. Awaiting for call back.
--- NOTE | 2018-12-10 18:03 | NUR ---
AVERY Dodd seen patient and reviewed labs no new order given.
[2018-12-10] MEDS: NEPRO 1,000 ML BOTTLE GT PRN (18:12)
[2018-12-10 18:48] VITALS: BP 113/42
[2018-12-10 19:50] VITALS: BP 143/62
[2018-12-10] MEDS: VANCOMYCIN 1 GM in IV D5W 250ml IV SCH (20:00)
[2018-12-10] MEDS: SENNOSIDES 8.6 MG TABLET GT SCH (21:15)
[2018-12-11] VITALS: BP 133/62
[2018-12-11] MEDS: IPRATROPIUM NEB FS 0.5 MG/2.5 ML AMPUL.NEB NEB SCH ×4 (01:48→19:22)
[2018-12-11] MEDS: IV 1/2NS 1000 ML 1,000 ML IV PRN ×2 (04:51→21:26)
[2018-12-11] MEDS: BLOOD SUGAR DIAGNOSTIC 1 EACH STRIP IN SCH ×3 (06:00→17:57)
[2018-12-11] MEDS: METOCLOPRAMIDE HCL 10 MG TABLET GT SCH ×3 (06:00→17:57)
[2018-12-11] MEDS: BIOTENE MOISTURIZING MM SCH ×3 (06:00→18:00)
[2018-12-11] MEDS: INSULIN REGULAR, HUMAN 100 UNIT/ML 3 ML VIAL SQ PRN ×3 (06:02→17:58)
[2018-12-11 06:40] VITALS: BP 125/60
[2018-12-11] MEDS: HYDROGEN PEROXIDE 480 ML BOTTLE TP SCH ×2 (07:58→20:03)
[2018-12-11 08:05] VITALS: BP 145/53
[2018-12-11] MEDS: DAKINS QUARTER STRENGTH (0.125%) 480 ML BOTTLE TOP SCH ×2 (09:00→20:48)
[2018-12-11] MEDS: NEOMY SULF/BACITRAC ZN/POLY 15 GM TUBE TP SCH ×2 (09:00→20:49)
[2018-12-11] MEDS: VITAMINS A AND D 56.7 GM TUBE TP SCH ×2 (09:00→20:49)
[2018-12-11] MEDS: NYSTATIN/TRIAMCIN CREAM 15 GM TUBE TP SCH ×2 (09:00→20:48)
[2018-12-11] MEDS: Z GUARD REMEDY 4 OZ OINT TP SCH ×6 (09:00→20:49)
[2018-12-11] MEDS: COD LIVER OIL/ZINC OXIDE 120 GM TUBE TP SCH ×3 (09:00→20:48)
[2018-12-11] MEDS: APIXABAN 2.5 MG TABLET GT SCH ×2 (09:33→17:57)
[2018-12-11] MEDS: ACIDOPHILUS/BULGARICUS 1 EACH TAB.CHEW GT SCH ×2 (09:33→20:47)
[2018-12-11] MEDS: DOCUSATE SODIUM LIQ 100 MG/10 ML UDC GT SCH (09:33)
[2018-12-11] MEDS: ASCORBIC ACID 500 MG TABLET GT SCH (09:34)
[2018-12-11] MEDS: ZINC SULFATE 220 MG CAPSULE GT SCH (09:34)
[2018-12-11] MEDS: PROSOURCE / PROSTAT (PYXIS) 30 ML UDC GT SCH (09:34)
[2018-12-11] MEDS: MULTIVIT W/MINERALS 1 TAB TABLET GT SCH (09:34)
[2018-12-11] MEDS: METOPROLOL TARTRATE 25 MG TABLET GT SCH ×2 (09:34→20:48)
[2018-12-11] MEDS: INSULIN DETEMIR 100 UNIT/ML CARTRIDGE SQ SCH ×2 (09:34→20:48)
[2018-12-11] MEDS: ACETAMINOPHEN 650 MG/20.3 ML UDC GT SCH ×2 (09:34→20:48)
[2018-12-11] MEDS: CEFEPIME 1 GM in IV D5W 50 ML IV SCH ×2 (09:52→21:27)
[2018-12-11 12:00] VITALS: BP 100/43
[2018-12-11 18:41] VITALS: BP 112/52
[2018-12-11 20:39] VITALS: BP 132/67
[2018-12-11] MEDS: MAGNESIUM HYDROXIDE 30 ML UDC GT PRN (20:49)
[2018-12-11] MEDS: SENNOSIDES 8.6 MG TABLET GT SCH (21:05)
[2018-12-11] MEDS: NEPRO 1,000 ML BOTTLE GT PRN (21:11)
[2018-12-12] VITALS (7 sets, daily range): BP systolic 118–158; BP diastolic 57–80
[2018-12-12] MEDS: BIOTENE MOISTURIZING MM SCH ×5 (00:03→23:16)
[2018-12-12] MEDS: METOCLOPRAMIDE HCL 10 MG TABLET GT SCH ×5 (00:03→23:16)
[2018-12-12] MEDS: INSULIN REGULAR, HUMAN 100 UNIT/ML 3 ML VIAL SQ PRN ×5 (00:03→23:20)
[2018-12-12] MEDS: BLOOD SUGAR DIAGNOSTIC 1 EACH STRIP IN SCH ×5 (00:03→23:16)
[2018-12-12] MEDS: IPRATROPIUM NEB FS 0.5 MG/2.5 ML AMPUL.NEB NEB SCH ×4 (00:40→19:41)
--- NOTE | 2018-12-12 04:07 | NUR ---
PT RCVD TRACH'D ON MECHANICAL VENT WITH CHARTED SETTINGS. PT BIRDIE TX WELL. SX DONE. PT TRACH IS PATENT AND SECURE. VENT ALARMS APPEAR TO BE FUNCTIONING PROPERLY. VENT PLUGGED INTO RED OUTLET. AMBU BAG AT BEDSIDE. Addendum: 12/12/18 at 0407 by FELICITAS CHRISTIE RT Amended: Links added.
[2018-12-12 08:05] LABS: BASOPHILS % (AUTO) 0.3 % (0.0-2.0); EOSINOPHILS % (AUTO) 1.8 % (0.0-6.0); HEMATOCRIT 27 % (33-45); HEMOGLOBIN 8.6 g/dL (11.5-14.8); LYMPHOCYTES # (AUTO) 1.2 /CMM (0.8-4.8); LYMPHOCYTES % (AUTO) 12.8 % (20.0-44.0); MEAN CORPUSCULAR HGB CONC 32 g/dl (31.0-36.0); MEAN CORPUSCULAR VOLUME 82 fL (82-100); MONOCYTES # (AUTO) 0.8 /CMM (0.1-1.30); MONOCYTES % (AUTO) 8.5 % (2.0-12.0); NEUTROPHILS # (AUTO) 7.3 /CMM (1.8-8.9); NEUTROPHILS % (AUTO) 76.6 % (43.0-81.0); PLATELET COUNT (AUTO) 248 /CMM (150-450); RED BLOOD CELL COUNT(AUTO) 3.28 MIL/uL (4.0-5.2); WHITE BLOOD COUNT (AUTO) 9.5 K/uL (4.3-11.0)
[2018-12-12] MEDS: VITAMINS A AND D 56.7 GM TUBE TP SCH ×2 (09:00→21:05)
[2018-12-12] MEDS: Z GUARD REMEDY 4 OZ OINT TP SCH ×6 (09:00→21:05)
[2018-12-12] MEDS: NYSTATIN/TRIAMCIN CREAM 15 GM TUBE TP SCH ×2 (09:00→21:04)
[2018-12-12] MEDS: DAKINS QUARTER STRENGTH (0.125%) 480 ML BOTTLE TOP SCH ×2 (09:00→21:04)
[2018-12-12] MEDS: NEOMY SULF/BACITRAC ZN/POLY 15 GM TUBE TP SCH ×2 (09:00→21:04)
[2018-12-12] MEDS: COD LIVER OIL/ZINC OXIDE 120 GM TUBE TP SCH ×3 (09:00→21:04)
[2018-12-12 09:01] LABS: BAND % (MANUAL) 2 % (0.0-5.0); EOSINOPHILS % (MANUAL) 2 % (0-4); LYMPHOCYTES % (MANUAL) 13 % (16-48); METAMYELOCYTES % 1 % (0-0); MONOCYTES % (MANUAL) 5 % (0-11.0); MYELOCYTES % 3 % (0-0); NEUTROPHILS % (MANUAL) 74 (42-76)
[2018-12-12 09:08] LABS: CALCIUM, SERUM 9.1 mg/dL (8.5-10.1); CARBON DIOXIDE 24 mmol/L (21-32); CHLORIDE 103 mmol/L (98-107); CREATININE 1.6 mg/dL (0.6-1.3); GLUCOSE 191 mg/dL (74-106); POTASSIUM 3.8 mmol/L (3.5-5.1); SODIUM SERUM 138 mmol/L (136-145); UREA NITROGEN, BLOOD 55 mg/dL (7-18)
[2018-12-12] MEDS: DOCUSATE SODIUM LIQ 100 MG/10 ML UDC GT SCH (09:50)
[2018-12-12] MEDS: ACIDOPHILUS/BULGARICUS 1 EACH TAB.CHEW GT SCH ×2 (09:51→21:03)
[2018-12-12] MEDS: APIXABAN 2.5 MG TABLET GT SCH ×2 (09:51→17:46)
[2018-12-12] MEDS: ASCORBIC ACID 500 MG TABLET GT SCH (09:52)
[2018-12-12] MEDS: PROSOURCE / PROSTAT (PYXIS) 30 ML UDC GT SCH (09:52)
[2018-12-12] MEDS: ACETAMINOPHEN 650 MG/20.3 ML UDC GT SCH ×2 (09:52→21:04)
[2018-12-12] MEDS: ZINC SULFATE 220 MG CAPSULE GT SCH (09:52)
[2018-12-12] MEDS: METOPROLOL TARTRATE 25 MG TABLET GT SCH ×2 (09:52→21:04)
[2018-12-12] MEDS: MULTIVIT W/MINERALS 1 TAB TABLET GT SCH (09:52)
[2018-12-12] MEDS: HYDROGEN PEROXIDE 480 ML BOTTLE TP SCH ×2 (09:56→20:03)
[2018-12-12] MEDS: INSULIN DETEMIR 100 UNIT/ML CARTRIDGE SQ SCH ×2 (09:58→21:39)
[2018-12-12] MEDS: CEFEPIME 1 GM in IV D5W 50 ML IV SCH ×2 (10:19→21:24)
--- NOTE | 2018-12-12 11:00 | NUR ---
Reported CBC and BMP result done today to Dr. Patrick. Hgb 8.6, Creat 1.6 and BUN 55 much improved from previous results. New order to discontinue IVF. Order carried out.
--- NOTE | 2018-12-12 15:50 | NUR ---
RT TRACH TUBE IN PLACE, PATENT, AND SECURED WITH TRACH TIE. VENT PLUGGED IN TO RED OUTLET. ALARMS ON AND AUDIBLE. AMBU BAG AND BACK UP TRACH BY THE BEDSIDE. PT STABLE AT THIS TIME. NO RESP DISTRESS. Addendum: 12/12/18 at 1552 by ANDRES MARINO RT Amended: Links added.
--- NOTE | 2018-12-12 17:28 | NUR ---
Left a message to patient's daughter Jennifer regarding CBC and BMP result and discontinuation of IVF order due to improved BUN and Creat level.
[2018-12-12] MEDS: VANCOMYCIN 1 GM in IV D5W 250ml IV SCH (20:00)
[2018-12-12] MEDS: SENNOSIDES 8.6 MG TABLET GT SCH (21:05)
--- NOTE | 2018-12-12 23:21 | NUR ---
PT RCVD TRACH'D ON MECHANICAL VENT WITH CHARTED SETTINGS. PT BIRDIE TX WELL. SX DONE. PT TRACH IS PATENT AND SECURE. VENT ALARMS APPEAR TO BE FUNCTIONING PROPERLY. VENT PLUGGED INTO RED OUTLET. AMBU BAG AT BEDSIDE. Addendum: 12/12/18 at 2321 by FELICITAS CHRISTIE RT Amended: Links added.
[2018-12-13 00:11] VITALS: BP 127/66
[2018-12-13] MEDS: IPRATROPIUM NEB FS 0.5 MG/2.5 ML AMPUL.NEB NEB SCH ×4 (00:31→19:48)
[2018-12-13] MEDS: NEPRO 1,000 ML BOTTLE GT PRN ×2 (02:25→19:00)
[2018-12-13] MEDS: METOCLOPRAMIDE HCL 10 MG TABLET GT SCH ×4 (05:23→23:13)
[2018-12-13] MEDS: BLOOD SUGAR DIAGNOSTIC 1 EACH STRIP IN SCH ×4 (05:23→23:13)
[2018-12-13] MEDS: BIOTENE MOISTURIZING MM SCH ×4 (05:24→23:14)
[2018-12-13] MEDS: INSULIN REGULAR, HUMAN 100 UNIT/ML 3 ML VIAL SQ PRN ×4 (05:27→23:14)
[2018-12-13 06:00] VITALS: BP 135/75
[2018-12-13 07:56] VITALS: BP 112/78
[2018-12-13] MEDS: DOCUSATE SODIUM LIQ 100 MG/10 ML UDC GT SCH (08:56)
[2018-12-13] MEDS: PROSOURCE / PROSTAT (PYXIS) 30 ML UDC GT SCH (08:58)
[2018-12-13] MEDS: ACIDOPHILUS/BULGARICUS 1 EACH TAB.CHEW GT SCH ×2 (08:58→20:31)
[2018-12-13] MEDS: METOPROLOL TARTRATE 25 MG TABLET GT SCH ×2 (08:58→20:32)
[2018-12-13] MEDS: APIXABAN 2.5 MG TABLET GT SCH ×2 (08:58→16:53)
[2018-12-13] MEDS: ZINC SULFATE 220 MG CAPSULE GT SCH (08:59)
[2018-12-13] MEDS: ASCORBIC ACID 500 MG TABLET GT SCH (08:59)
[2018-12-13] MEDS: ACETAMINOPHEN 650 MG/20.3 ML UDC GT SCH ×2 (08:59→20:32)
[2018-12-13] MEDS: DAKINS QUARTER STRENGTH (0.125%) 480 ML BOTTLE TOP SCH ×2 (09:00→20:32)
[2018-12-13] MEDS: HYDROGEN PEROXIDE 480 ML BOTTLE TP SCH ×2 (09:00→20:32)
[2018-12-13] MEDS: Z GUARD REMEDY 4 OZ OINT TP SCH ×6 (09:00→20:34)
[2018-12-13] MEDS: NEOMY SULF/BACITRAC ZN/POLY 15 GM TUBE TP SCH (09:00)
[2018-12-13] MEDS: COD LIVER OIL/ZINC OXIDE 120 GM TUBE TP SCH ×3 (09:00→20:32)
[2018-12-13] MEDS: VITAMINS A AND D 56.7 GM TUBE TP SCH ×2 (09:00→20:34)
[2018-12-13] MEDS: NYSTATIN/TRIAMCIN CREAM 15 GM TUBE TP SCH ×2 (09:00→20:32)
[2018-12-13] MEDS: MULTIVIT W/MINERALS 1 TAB TABLET GT SCH (09:14)
[2018-12-13] MEDS: INSULIN DETEMIR 100 UNIT/ML CARTRIDGE SQ SCH ×2 (09:14→21:12)
[2018-12-13 12:00] VITALS: BP 124/68
[2018-12-13 18:00] VITALS: BP 118/66
[2018-12-13 20:32] VITALS: BP 135/64
[2018-12-13] MEDS: SENNOSIDES 8.6 MG TABLET GT SCH (21:12)
[2018-12-13] MEDS: MAGNESIUM HYDROXIDE 30 ML UDC GT PRN (21:12)
[2018-12-14 00:05] VITALS: BP 120/66
[2018-12-14] MEDS: IPRATROPIUM NEB FS 0.5 MG/2.5 ML AMPUL.NEB NEB SCH ×4 (01:25→19:14)
[2018-12-14] MEDS: BLOOD SUGAR DIAGNOSTIC 1 EACH STRIP IN SCH ×4 (05:19→23:33)
[2018-12-14] MEDS: BIOTENE MOISTURIZING MM SCH ×4 (05:19→23:33)
[2018-12-14] MEDS: METOCLOPRAMIDE HCL 10 MG TABLET GT SCH ×4 (05:19→23:33)
[2018-12-14] MEDS: INSULIN REGULAR, HUMAN 100 UNIT/ML 3 ML VIAL SQ PRN ×3 (05:21→23:33)
[2018-12-14 06:27] VITALS: BP 136/68
[2018-12-14 08:03] VITALS: BP 128/70
[2018-12-14] MEDS: NYSTATIN/TRIAMCIN CREAM 15 GM TUBE TP SCH ×2 (09:00→21:35)
[2018-12-14] MEDS: VITAMINS A AND D 56.7 GM TUBE TP SCH ×2 (09:00→21:36)
[2018-12-14] MEDS: HYDROGEN PEROXIDE 480 ML BOTTLE TP SCH ×2 (09:00→21:35)
[2018-12-14] MEDS: DAKINS QUARTER STRENGTH (0.125%) 480 ML BOTTLE TOP SCH ×2 (09:00→21:35)
[2018-12-14] MEDS: Z GUARD REMEDY 4 OZ OINT TP SCH ×6 (09:00→21:36)
[2018-12-14] MEDS: COD LIVER OIL/ZINC OXIDE 120 GM TUBE TP SCH ×3 (09:00→21:35)
[2018-12-14] MEDS: MULTIVIT W/MINERALS 1 TAB TABLET GT SCH (09:19)
[2018-12-14] MEDS: PROSOURCE / PROSTAT (PYXIS) 30 ML UDC GT SCH (09:19)
[2018-12-14] MEDS: APIXABAN 2.5 MG TABLET GT SCH ×2 (09:19→17:03)
[2018-12-14] MEDS: ZINC SULFATE 220 MG CAPSULE GT SCH (09:19)
[2018-12-14] MEDS: ACETAMINOPHEN 650 MG/20.3 ML UDC GT SCH ×2 (09:19→21:30)
[2018-12-14] MEDS: METOPROLOL TARTRATE 25 MG TABLET GT SCH ×2 (09:19→21:30)
[2018-12-14] MEDS: ASCORBIC ACID 500 MG TABLET GT SCH (09:19)
[2018-12-14] MEDS: DOCUSATE SODIUM LIQ 100 MG/10 ML UDC GT SCH (09:19)
[2018-12-14] MEDS: ACIDOPHILUS/BULGARICUS 1 EACH TAB.CHEW GT SCH ×2 (09:19→21:28)
[2018-12-14] MEDS: INSULIN DETEMIR 100 UNIT/ML CARTRIDGE SQ SCH ×2 (09:20→21:35)
[2018-12-14] MEDS: NEPRO 1,000 ML BOTTLE GT PRN (11:40)
[2018-12-14 12:33] VITALS: BP 130/65
[2018-12-14 18:28] VITALS: BP 123/60
[2018-12-14 19:40] VITALS: BP 140/70
[2018-12-14] MEDS: SENNOSIDES 8.6 MG TABLET GT SCH (21:36)
[2018-12-15] VITALS: BP 135/54
[2018-12-15] MEDS: IPRATROPIUM NEB FS 0.5 MG/2.5 ML AMPUL.NEB NEB SCH ×4 (01:04→19:42)
--- NOTE | 2018-12-15 02:19 | NUR ---
RT NOTES TRACH TUBE IN PLACE, PATENT, AND SECURED WITH TRACH TIE. ALARMS ON AND AUDIBLE. VENT PLUGGED IN TO RED OUTLET. AMBU BAG AND BACK UP TRACH BY THE BEDSIDE. SX MODERATE THICK PALE YELLOW SECRETIONS. NO RESP DISTRESS AT THIS TIME. Addendum: 12/15/18 at 0219 by ANDRES MARINO RT Amended: Links added.
[2018-12-15 06:00] VITALS: BP 123/72
[2018-12-15] MEDS: BIOTENE MOISTURIZING MM SCH ×3 (06:24→17:16)
[2018-12-15] MEDS: METOCLOPRAMIDE HCL 10 MG TABLET GT SCH ×3 (06:24→17:18)
[2018-12-15] MEDS: BLOOD SUGAR DIAGNOSTIC 1 EACH STRIP IN SCH ×3 (06:24→17:59)
[2018-12-15] MEDS: INSULIN REGULAR, HUMAN 100 UNIT/ML 3 ML VIAL SQ PRN ×3 (06:26→18:00)
[2018-12-15] MEDS: HYDROGEN PEROXIDE 480 ML BOTTLE TP SCH ×2 (07:16→21:00)
[2018-12-15] MEDS: PROSOURCE / PROSTAT (PYXIS) 30 ML UDC GT SCH (09:00)
[2018-12-15] MEDS: INSULIN DETEMIR 100 UNIT/ML CARTRIDGE SQ SCH ×2 (09:00→21:00)
[2018-12-15] MEDS: ACETAMINOPHEN 650 MG/20.3 ML UDC GT SCH ×2 (09:00→21:00)
[2018-12-15] MEDS: MULTIVIT W/MINERALS 1 TAB TABLET GT SCH (09:00)
[2018-12-15] MEDS: ZINC SULFATE 220 MG CAPSULE GT SCH (09:00)
[2018-12-15] MEDS: APIXABAN 2.5 MG TABLET GT SCH ×2 (09:00→17:16)
[2018-12-15] MEDS: DOCUSATE SODIUM LIQ 100 MG/10 ML UDC GT SCH (09:00)
[2018-12-15] MEDS: ASCORBIC ACID 500 MG TABLET GT SCH (09:00)
[2018-12-15] MEDS: ACIDOPHILUS/BULGARICUS 1 EACH TAB.CHEW GT SCH ×2 (09:00→21:00)
[2018-12-15] MEDS: METOPROLOL TARTRATE 25 MG TABLET GT SCH ×2 (09:00→21:00)
[2018-12-15] MEDS: VITAMINS A AND D 56.7 GM TUBE TP SCH ×2 (10:00→21:00)
[2018-12-15] MEDS: Z GUARD REMEDY 4 OZ OINT TP SCH ×6 (10:00→21:00)
[2018-12-15] MEDS: COD LIVER OIL/ZINC OXIDE 120 GM TUBE TP SCH ×3 (10:00→21:00)
[2018-12-15] MEDS: DAKINS QUARTER STRENGTH (0.125%) 480 ML BOTTLE TOP SCH ×2 (10:00→21:00)
[2018-12-15] MEDS: NYSTATIN/TRIAMCIN CREAM 15 GM TUBE TP SCH ×2 (10:00→21:00)
[2018-12-15 12:00] VITALS: BP 116/70
[2018-12-15] MEDS ORDERED: DIATR MEGLU/DIATRIZOATE SODIUM 30 ML BOTTLE (GASTROGRAPHIN) ONE (12:33)
[2018-12-15] MEDS: NEPRO 1,000 ML BOTTLE GT PRN (17:16)
[2018-12-15 18:00] VITALS: BP 126/76
[2018-12-15 19:01] VITALS: BP 130/69
[2018-12-15 19:56] VITALS: BP 119/54
[2018-12-15] MEDS: SENNOSIDES 8.6 MG TABLET GT SCH (22:16)
[2018-12-16] VITALS (7 sets, daily range): BP systolic 111–153; BP diastolic 55–72
[2018-12-16] MEDS: METOCLOPRAMIDE HCL 10 MG TABLET GT SCH ×5 (00:05→23:12)
[2018-12-16] MEDS: BIOTENE MOISTURIZING MM SCH ×5 (00:05→23:12)
[2018-12-16] MEDS: BLOOD SUGAR DIAGNOSTIC 1 EACH STRIP IN SCH ×5 (00:05→23:12)
[2018-12-16] MEDS: INSULIN REGULAR, HUMAN 100 UNIT/ML 3 ML VIAL SQ PRN ×5 (00:07→23:14)
[2018-12-16] MEDS: IPRATROPIUM NEB FS 0.5 MG/2.5 ML AMPUL.NEB NEB SCH ×4 (01:37→19:21)
[2018-12-16] MEDS: DOCUSATE SODIUM LIQ 100 MG/10 ML UDC GT SCH (08:49)
[2018-12-16] MEDS: ACIDOPHILUS/BULGARICUS 1 EACH TAB.CHEW GT SCH ×2 (08:51→20:59)
[2018-12-16] MEDS: ACETAMINOPHEN 650 MG/20.3 ML UDC GT SCH ×2 (08:51→21:00)
[2018-12-16] MEDS: MULTIVIT W/MINERALS 1 TAB TABLET GT SCH (08:51)
[2018-12-16] MEDS: ZINC SULFATE 220 MG CAPSULE GT SCH (08:51)
[2018-12-16] MEDS: APIXABAN 2.5 MG TABLET GT SCH ×2 (08:51→17:46)
[2018-12-16] MEDS: ASCORBIC ACID 500 MG TABLET GT SCH (08:51)
[2018-12-16] MEDS: PROSOURCE / PROSTAT (PYXIS) 30 ML UDC GT SCH (08:51)
[2018-12-16] MEDS: VITAMINS A AND D 56.7 GM TUBE TP SCH ×2 (09:00→21:39)
[2018-12-16] MEDS: HYDROGEN PEROXIDE 480 ML BOTTLE TP SCH ×2 (09:00→21:00)
[2018-12-16] MEDS: NYSTATIN/TRIAMCIN CREAM 15 GM TUBE TP SCH ×2 (09:00→21:38)
[2018-12-16] MEDS: COD LIVER OIL/ZINC OXIDE 120 GM TUBE TP SCH ×3 (09:00→21:38)
[2018-12-16] MEDS: Z GUARD REMEDY 4 OZ OINT TP SCH ×6 (09:00→21:39)
[2018-12-16] MEDS: METOPROLOL TARTRATE 25 MG TABLET GT SCH ×2 (09:11→21:00)
[2018-12-16] MEDS: INSULIN DETEMIR 100 UNIT/ML CARTRIDGE SQ SCH ×2 (09:12→21:08)
[2018-12-16] MEDS: DAKINS QUARTER STRENGTH (0.125%) 480 ML BOTTLE TOP SCH ×2 (09:30→21:38)
--- NOTE | 2018-12-16 12:29 | NUR ---
Dr Ralph Mendoza's EUNICE Fabian debrided pt's abdominal wound. Pt tolerated procedure well.
[2018-12-16] MEDS: SENNOSIDES 8.6 MG TABLET GT SCH (21:00)
[2018-12-17 00:20] VITALS: BP 132/70
[2018-12-17] MEDS: IPRATROPIUM NEB FS 0.5 MG/2.5 ML AMPUL.NEB NEB SCH ×4 (00:45→19:43)
[2018-12-17] MEDS: NEPRO 1,000 ML BOTTLE GT PRN (03:55)
[2018-12-17] MEDS: BIOTENE MOISTURIZING MM SCH ×3 (06:07→17:30)
[2018-12-17] MEDS: METOCLOPRAMIDE HCL 10 MG TABLET GT SCH ×3 (06:07→17:29)
[2018-12-17] MEDS: BLOOD SUGAR DIAGNOSTIC 1 EACH STRIP IN SCH ×3 (06:07→17:29)
[2018-12-17] MEDS: INSULIN REGULAR, HUMAN 100 UNIT/ML 3 ML VIAL SQ PRN ×3 (06:08→17:42)
[2018-12-17 06:34] VITALS: BP 122/62
[2018-12-17 07:45] VITALS: BP 146/65
[2018-12-17] MEDS: COD LIVER OIL/ZINC OXIDE 120 GM TUBE TP SCH ×3 (09:00→21:55)
[2018-12-17] MEDS: HYDROGEN PEROXIDE 480 ML BOTTLE TP SCH ×2 (09:00→19:43)
[2018-12-17] MEDS: Z GUARD REMEDY 4 OZ OINT TP SCH ×6 (09:00→21:56)
[2018-12-17] MEDS: VITAMINS A AND D 56.7 GM TUBE TP SCH ×2 (09:00→21:56)
[2018-12-17] MEDS: NYSTATIN/TRIAMCIN CREAM 15 GM TUBE TP SCH ×2 (09:00→21:56)
[2018-12-17] MEDS: DAKINS QUARTER STRENGTH (0.125%) 480 ML BOTTLE TOP SCH (09:00)
--- NOTE | 2018-12-17 09:20 | NUR ---
Seen and examined by Dr. Patrick no new order given.
[2018-12-17] MEDS: ACIDOPHILUS/BULGARICUS 1 EACH TAB.CHEW GT SCH ×2 (09:53→20:49)
[2018-12-17] MEDS: ACETAMINOPHEN 650 MG/20.3 ML UDC GT SCH ×2 (09:53→20:49)
[2018-12-17] MEDS: DOCUSATE SODIUM LIQ 100 MG/10 ML UDC GT SCH (09:53)
[2018-12-17] MEDS: MULTIVIT W/MINERALS 1 TAB TABLET GT SCH (09:53)
[2018-12-17] MEDS: METOPROLOL TARTRATE 25 MG TABLET GT SCH ×2 (09:53→20:49)
[2018-12-17] MEDS: PROSOURCE / PROSTAT (PYXIS) 30 ML UDC GT SCH (09:53)
[2018-12-17] MEDS: APIXABAN 2.5 MG TABLET GT SCH ×2 (09:53→17:29)
[2018-12-17] MEDS: ASCORBIC ACID 500 MG TABLET GT SCH (09:54)
[2018-12-17] MEDS: ZINC SULFATE 220 MG CAPSULE GT SCH (09:54)
[2018-12-17] MEDS: INSULIN DETEMIR 100 UNIT/ML CARTRIDGE SQ SCH ×2 (10:00→21:55)
[2018-12-17 16:15] VITALS: BP 128/68
[2018-12-17 18:42] VITALS: BP 138/58
[2018-12-17 20:08] VITALS: BP 138/67
[2018-12-17] MEDS: SENNOSIDES 8.6 MG TABLET GT SCH (21:56)
[2018-12-18] MEDS: METOCLOPRAMIDE HCL 10 MG TABLET GT SCH ×4 (00:26→17:42)
[2018-12-18] MEDS: BIOTENE MOISTURIZING MM SCH ×4 (00:26→17:42)
[2018-12-18] MEDS: BLOOD SUGAR DIAGNOSTIC 1 EACH STRIP IN SCH ×4 (00:26→17:42)
[2018-12-18] MEDS: INSULIN REGULAR, HUMAN 100 UNIT/ML 3 ML VIAL SQ PRN ×5 (00:29→19:12)
[2018-12-18 00:38] VITALS: BP 127/62
[2018-12-18] MEDS: IPRATROPIUM NEB FS 0.5 MG/2.5 ML AMPUL.NEB NEB SCH ×4 (00:54→20:27)
--- NOTE | 2018-12-18 06:01 | NUR ---
Right foot rash treatment started per MD order,Lotrimin q shift x 14 days.
[2018-12-18 06:08] VITALS: BP 122/60
[2018-12-18 07:43] VITALS: BP 146/65
[2018-12-18] MEDS ORDERED: CLOTRIMAZOLE 1% 15 GM TUBE TP SCH (09:00)
[2018-12-18] MEDS: NYSTATIN/TRIAMCIN CREAM 15 GM TUBE TP SCH ×2 (09:00→21:31)
[2018-12-18] MEDS: HYDROGEN PEROXIDE 480 ML BOTTLE TP SCH ×2 (09:00→21:30)
[2018-12-18] MEDS: VITAMINS A AND D 56.7 GM TUBE TP SCH ×2 (09:00→21:31)
[2018-12-18] MEDS: Z GUARD REMEDY 4 OZ OINT TP SCH ×6 (09:00→21:31)
[2018-12-18] MEDS: ACIDOPHILUS/BULGARICUS 1 EACH TAB.CHEW GT SCH ×2 (09:26→21:29)
[2018-12-18] MEDS: DOCUSATE SODIUM LIQ 100 MG/10 ML UDC GT SCH (09:26)
[2018-12-18] MEDS: APIXABAN 2.5 MG TABLET GT SCH (09:26)
[2018-12-18] MEDS: INSULIN DETEMIR 100 UNIT/ML CARTRIDGE SQ SCH ×2 (09:27→21:30)
[2018-12-18] MEDS: ACETAMINOPHEN 650 MG/20.3 ML UDC GT SCH ×2 (09:27→21:29)
[2018-12-18] MEDS: ZINC SULFATE 220 MG CAPSULE GT SCH (09:27)
[2018-12-18] MEDS: METOPROLOL TARTRATE 25 MG TABLET GT SCH ×2 (09:27→21:29)
[2018-12-18] MEDS: PROSOURCE / PROSTAT (PYXIS) 30 ML UDC GT SCH (09:27)
[2018-12-18] MEDS: MULTIVIT W/MINERALS 1 TAB TABLET GT SCH (09:27)
[2018-12-18] MEDS: COD LIVER OIL/ZINC OXIDE 120 GM TUBE TP SCH ×3 (09:27→21:30)
[2018-12-18] MEDS: ASCORBIC ACID 500 MG TABLET GT SCH (09:27)
[2018-12-18] MEDS: CLOTRIMAZOLE 1% 15 GM TUBE TP SCH ×2 (09:28→21:31)
[2018-12-18 12:00] VITALS: BP 135/60
[2018-12-18] MEDS: NEPRO 1,000 ML BOTTLE GT PRN (12:47)
[2018-12-18 18:58] VITALS: BP 147/57
[2018-12-18 20:05] VITALS: BP 143/66
[2018-12-18] MEDS: SENNOSIDES 8.6 MG TABLET GT SCH (21:31)
[2018-12-19] VITALS: BP 140/53
[2018-12-19] MEDS: BLOOD SUGAR DIAGNOSTIC 1 EACH STRIP IN SCH ×4 (00:55→17:36)
[2018-12-19] MEDS: METOCLOPRAMIDE HCL 10 MG TABLET GT SCH ×4 (00:55→17:36)
[2018-12-19] MEDS: BIOTENE MOISTURIZING MM SCH ×4 (00:55→17:36)
[2018-12-19] MEDS: INSULIN REGULAR, HUMAN 100 UNIT/ML 3 ML VIAL SQ PRN ×4 (00:56→17:37)
[2018-12-19] MEDS: IPRATROPIUM NEB FS 0.5 MG/2.5 ML AMPUL.NEB NEB SCH ×4 (01:53→19:26)
[2018-12-19 06:00] VITALS: BP 150/61
[2018-12-19] MEDS: HYDROGEN PEROXIDE 480 ML BOTTLE TP SCH ×2 (07:42→21:00)
[2018-12-19 08:19] VITALS: BP 140/57
[2018-12-19] MEDS: ZINC SULFATE 220 MG CAPSULE GT SCH (09:46)
[2018-12-19] MEDS: MULTIVIT W/MINERALS 1 TAB TABLET GT SCH (09:46)
[2018-12-19] MEDS: DOCUSATE SODIUM LIQ 100 MG/10 ML UDC GT SCH (09:46)
[2018-12-19] MEDS: PROSOURCE / PROSTAT (PYXIS) 30 ML UDC GT SCH (09:46)
[2018-12-19] MEDS: ACIDOPHILUS/BULGARICUS 1 EACH TAB.CHEW GT SCH ×2 (09:46→21:00)
[2018-12-19] MEDS: ASCORBIC ACID 500 MG TABLET GT SCH (09:46)
[2018-12-19] MEDS: ACETAMINOPHEN 650 MG/20.3 ML UDC GT SCH ×2 (09:46→21:00)
[2018-12-19] MEDS: METOPROLOL TARTRATE 25 MG TABLET GT SCH ×2 (09:46→21:00)
[2018-12-19] MEDS: COD LIVER OIL/ZINC OXIDE 120 GM TUBE TP SCH ×3 (09:47→21:00)
[2018-12-19] MEDS: INSULIN DETEMIR 100 UNIT/ML CARTRIDGE SQ SCH ×2 (09:47→21:00)
[2018-12-19] MEDS: CLOTRIMAZOLE 1% 15 GM TUBE TP SCH ×2 (09:48→21:00)
[2018-12-19] MEDS: VITAMINS A AND D 56.7 GM TUBE TP SCH ×2 (09:49→21:00)
[2018-12-19] MEDS: NYSTATIN/TRIAMCIN CREAM 15 GM TUBE TP SCH ×2 (09:49→21:00)
[2018-12-19] MEDS: Z GUARD REMEDY 4 OZ OINT TP SCH ×6 (09:49→21:00)
[2018-12-19 12:00] VITALS: BP 139/68
[2018-12-19 19:26] VITALS: BP 122/56
[2018-12-19 20:25] VITALS: BP 122/73
[2018-12-19] MEDS: SENNOSIDES 8.6 MG TABLET GT SCH (22:00)
[2018-12-20] MEDS: METOCLOPRAMIDE HCL 10 MG TABLET GT SCH ×5 (00:07→23:57)
[2018-12-20] MEDS: BIOTENE MOISTURIZING MM SCH ×5 (00:08→23:57)
[2018-12-20] MEDS: BLOOD SUGAR DIAGNOSTIC 1 EACH STRIP IN SCH ×5 (00:09→23:57)
[2018-12-20 00:20] VITALS: BP 140/75
[2018-12-20] MEDS: IPRATROPIUM NEB FS 0.5 MG/2.5 ML AMPUL.NEB NEB SCH ×4 (01:00→20:05)
[2018-12-20 06:00] VITALS: BP 130/58
[2018-12-20] MEDS: INSULIN REGULAR, HUMAN 100 UNIT/ML 3 ML VIAL SQ PRN ×3 (06:13→17:40)
[2018-12-20 07:48] VITALS: BP 127/46
[2018-12-20] MEDS: INSULIN DETEMIR 100 UNIT/ML CARTRIDGE SQ SCH ×2 (09:00→21:47)
[2018-12-20] MEDS: NYSTATIN/TRIAMCIN CREAM 15 GM TUBE TP SCH ×2 (09:00→20:57)
[2018-12-20] MEDS: HYDROGEN PEROXIDE 480 ML BOTTLE TP SCH ×2 (09:00→20:57)
[2018-12-20] MEDS: CLOTRIMAZOLE 1% 15 GM TUBE TP SCH ×2 (09:00→20:57)
[2018-12-20] MEDS: Z GUARD REMEDY 4 OZ OINT TP SCH ×6 (09:00→20:57)
[2018-12-20] MEDS: COD LIVER OIL/ZINC OXIDE 120 GM TUBE TP SCH ×3 (09:00→20:57)
[2018-12-20] MEDS: VITAMINS A AND D 56.7 GM TUBE TP SCH ×2 (09:00→20:57)
[2018-12-20] MEDS: DOCUSATE SODIUM LIQ 100 MG/10 ML UDC GT SCH (09:04)
[2018-12-20] MEDS: ACIDOPHILUS/BULGARICUS 1 EACH TAB.CHEW GT SCH ×2 (09:04→20:56)
[2018-12-20] MEDS: ASCORBIC ACID 500 MG TABLET GT SCH (09:06)
[2018-12-20] MEDS: ZINC SULFATE 220 MG CAPSULE GT SCH (09:06)
[2018-12-20] MEDS: PROSOURCE / PROSTAT (PYXIS) 30 ML UDC GT SCH (09:06)
[2018-12-20] MEDS: ACETAMINOPHEN 650 MG/20.3 ML UDC GT SCH ×2 (09:06→20:57)
[2018-12-20] MEDS: MULTIVIT W/MINERALS 1 TAB TABLET GT SCH (09:11)
[2018-12-20] MEDS: METOPROLOL TARTRATE 25 MG TABLET GT SCH ×2 (09:20→20:57)
[2018-12-20 12:00] VITALS: BP 114/66
[2018-12-20 18:00] VITALS: BP 99/68
[2018-12-20] MEDS: NEPRO 1,000 ML BOTTLE GT PRN (18:31)
[2018-12-20 20:04] VITALS: BP 121/51
[2018-12-20] MEDS: SENNOSIDES 8.6 MG TABLET GT SCH (21:09)
[2018-12-21] VITALS: BP 124/47
[2018-12-21] MEDS: INSULIN REGULAR, HUMAN 100 UNIT/ML 3 ML VIAL SQ PRN ×4 (00:11→17:12)
[2018-12-21] MEDS: IPRATROPIUM NEB FS 0.5 MG/2.5 ML AMPUL.NEB NEB SCH ×4 (01:47→19:30)
[2018-12-21] MEDS: BLOOD SUGAR DIAGNOSTIC 1 EACH STRIP IN SCH ×3 (05:24→17:10)
[2018-12-21] MEDS: METOCLOPRAMIDE HCL 10 MG TABLET GT SCH ×3 (05:24→17:10)
[2018-12-21] MEDS: BIOTENE MOISTURIZING MM SCH ×3 (05:25→17:10)
[2018-12-21 06:00] VITALS: BP 134/55
[2018-12-21 08:12] VITALS: BP 127/44
[2018-12-21] MEDS: HYDROGEN PEROXIDE 480 ML BOTTLE TP SCH ×2 (08:26→20:45)
[2018-12-21] MEDS: Z GUARD REMEDY 4 OZ OINT TP SCH ×6 (09:00→20:37)
[2018-12-21] MEDS: CLOTRIMAZOLE 1% 15 GM TUBE TP SCH ×2 (09:00→20:37)
[2018-12-21] MEDS: COD LIVER OIL/ZINC OXIDE 120 GM TUBE TP SCH ×3 (09:00→20:36)
[2018-12-21] MEDS: NYSTATIN/TRIAMCIN CREAM 15 GM TUBE TP SCH ×2 (09:00→20:37)
[2018-12-21] MEDS: VITAMINS A AND D 56.7 GM TUBE TP SCH ×2 (09:00→20:37)
[2018-12-21] MEDS: DOCUSATE SODIUM LIQ 100 MG/10 ML UDC GT SCH (09:10)
[2018-12-21] MEDS: ACIDOPHILUS/BULGARICUS 1 EACH TAB.CHEW GT SCH ×2 (09:10→20:33)
[2018-12-21] MEDS: METOPROLOL TARTRATE 25 MG TABLET GT SCH ×2 (09:10→20:34)
[2018-12-21] MEDS: ACETAMINOPHEN 650 MG/20.3 ML UDC GT SCH ×2 (09:11→20:35)
[2018-12-21] MEDS: ASCORBIC ACID 500 MG TABLET GT SCH (09:11)
[2018-12-21] MEDS: MULTIVIT W/MINERALS 1 TAB TABLET GT SCH (09:11)
[2018-12-21] MEDS: PROSOURCE / PROSTAT (PYXIS) 30 ML UDC GT SCH (09:11)
[2018-12-21] MEDS: ZINC SULFATE 220 MG CAPSULE GT SCH (09:11)
[2018-12-21] MEDS: INSULIN DETEMIR 100 UNIT/ML CARTRIDGE SQ SCH ×2 (09:14→20:36)
[2018-12-21 12:00] VITALS: BP 122/64
[2018-12-21 18:00] VITALS: BP 128/55
[2018-12-21 20:32] VITALS: BP 147/63
[2018-12-21] MEDS: DAKINS QUARTER STRENGTH (0.125%) 480 ML BOTTLE TOP SCH (20:36)
[2018-12-21] MEDS: SENNOSIDES 8.6 MG TABLET GT SCH (21:28)
[2018-12-22 00:14] VITALS: BP 121/53
[2018-12-22] MEDS: BLOOD SUGAR DIAGNOSTIC 1 EACH STRIP IN SCH ×5 (00:17→23:56)
[2018-12-22] MEDS: METOCLOPRAMIDE HCL 10 MG TABLET GT SCH ×5 (00:17→23:56)
[2018-12-22] MEDS: INSULIN REGULAR, HUMAN 100 UNIT/ML 3 ML VIAL SQ PRN ×5 (00:19→23:59)
[2018-12-22] MEDS: IPRATROPIUM NEB FS 0.5 MG/2.5 ML AMPUL.NEB NEB SCH ×4 (00:23→19:29)
[2018-12-22] MEDS: BIOTENE MOISTURIZING MM SCH ×5 (00:26→23:56)
[2018-12-22 06:38] VITALS: BP 140/55
[2018-12-22 08:10] VITALS: BP 118/38
[2018-12-22] MEDS: HYDROGEN PEROXIDE 480 ML BOTTLE TP SCH ×2 (08:23→21:45)
[2018-12-22] MEDS: METOPROLOL TARTRATE 25 MG TABLET GT SCH ×2 (09:00→21:45)
[2018-12-22] MEDS: CLOTRIMAZOLE 1% 15 GM TUBE TP SCH ×2 (09:00→21:45)
[2018-12-22] MEDS: DOCUSATE SODIUM LIQ 100 MG/10 ML UDC GT SCH (09:27)
[2018-12-22] MEDS: PROSOURCE / PROSTAT (PYXIS) 30 ML UDC GT SCH (09:27)
[2018-12-22] MEDS: ASCORBIC ACID 500 MG TABLET GT SCH (09:27)
[2018-12-22] MEDS: MULTIVIT W/MINERALS 1 TAB TABLET GT SCH (09:27)
[2018-12-22] MEDS: ZINC SULFATE 220 MG CAPSULE GT SCH (09:27)
[2018-12-22] MEDS: ACIDOPHILUS/BULGARICUS 1 EACH TAB.CHEW GT SCH ×2 (09:27→21:44)
[2018-12-22] MEDS: ACETAMINOPHEN 650 MG/20.3 ML UDC GT SCH ×2 (09:27→21:45)
[2018-12-22] MEDS: INSULIN DETEMIR 100 UNIT/ML CARTRIDGE SQ SCH ×2 (09:45→21:00)
[2018-12-22] MEDS: NYSTATIN/TRIAMCIN CREAM 15 GM TUBE TP SCH ×2 (10:00→21:46)
[2018-12-22] MEDS: DAKINS QUARTER STRENGTH (0.125%) 480 ML BOTTLE TOP SCH ×2 (10:00→21:45)
[2018-12-22] MEDS: Z GUARD REMEDY 4 OZ OINT TP SCH ×6 (10:00→21:46)
[2018-12-22] MEDS: VITAMINS A AND D 56.7 GM TUBE TP SCH ×2 (10:00→21:46)
[2018-12-22] MEDS: COD LIVER OIL/ZINC OXIDE 120 GM TUBE TP SCH ×3 (10:00→21:45)
[2018-12-22 12:00] VITALS: BP 156/77
[2018-12-22 18:00] VITALS: BP 136/59
[2018-12-22 20:24] VITALS: BP 142/60
[2018-12-22] MEDS: SENNOSIDES 8.6 MG TABLET GT SCH (21:46)
[2018-12-23] VITALS: BP 125/59
[2018-12-23] MEDS: IPRATROPIUM NEB FS 0.5 MG/2.5 ML AMPUL.NEB NEB SCH ×4 (01:27→20:28)
[2018-12-23] MEDS: METOCLOPRAMIDE HCL 10 MG TABLET GT SCH ×3 (05:37→17:36)
[2018-12-23] MEDS: BLOOD SUGAR DIAGNOSTIC 1 EACH STRIP IN SCH ×3 (05:55→18:11)
[2018-12-23] MEDS: BIOTENE MOISTURIZING MM SCH ×3 (05:55→17:36)
[2018-12-23] MEDS: INSULIN REGULAR, HUMAN 100 UNIT/ML 3 ML VIAL SQ PRN ×3 (05:56→18:12)
[2018-12-23 06:00] VITALS: BP 132/64
[2018-12-23 07:50] VITALS: BP 111/55
[2018-12-23] MEDS: MULTIVIT W/MINERALS 1 TAB TABLET GT SCH (08:59)
[2018-12-23] MEDS: ACIDOPHILUS/BULGARICUS 1 EACH TAB.CHEW GT SCH ×2 (08:59→20:27)
[2018-12-23] MEDS: ASCORBIC ACID 500 MG TABLET GT SCH (08:59)
[2018-12-23] MEDS: DOCUSATE SODIUM LIQ 100 MG/10 ML UDC GT SCH (08:59)
[2018-12-23] MEDS: PROSOURCE / PROSTAT (PYXIS) 30 ML UDC GT SCH (08:59)
[2018-12-23] MEDS: ACETAMINOPHEN 650 MG/20.3 ML UDC GT SCH ×2 (08:59→20:28)
[2018-12-23] MEDS: HYDROGEN PEROXIDE 480 ML BOTTLE TP SCH ×2 (09:00→21:00)
[2018-12-23] MEDS: ZINC SULFATE 220 MG CAPSULE GT SCH (09:00)
[2018-12-23] MEDS: METOPROLOL TARTRATE 25 MG TABLET GT SCH ×2 (09:19→20:28)
[2018-12-23] MEDS: INSULIN DETEMIR 100 UNIT/ML CARTRIDGE SQ SCH ×2 (09:19→20:38)
[2018-12-23] MEDS: NYSTATIN/TRIAMCIN CREAM 15 GM TUBE TP SCH ×2 (09:30→20:30)
[2018-12-23] MEDS: Z GUARD REMEDY 4 OZ OINT TP SCH ×6 (09:30→20:30)
[2018-12-23] MEDS: VITAMINS A AND D 56.7 GM TUBE TP SCH ×2 (09:30→20:31)
[2018-12-23] MEDS: COD LIVER OIL/ZINC OXIDE 120 GM TUBE TP SCH ×3 (09:30→20:30)
[2018-12-23] MEDS: DAKINS QUARTER STRENGTH (0.125%) 480 ML BOTTLE TOP SCH ×2 (09:30→20:30)
[2018-12-23] MEDS: CLOTRIMAZOLE 1% 15 GM TUBE TP SCH ×2 (09:30→20:30)
--- NOTE | 2018-12-23 11:45 | NUR ---
Seen and examined by Dr. Patrick, aware of current weight, NNO given.
[2018-12-23 12:00] VITALS: BP 151/64
[2018-12-23 18:00] VITALS: BP 130/70
--- NOTE | 2018-12-23 19:21 | NUR ---
SEEN AND EXAMINED BY AVERY YOUNG. RING CONDUCTOR IS MADE AWARE OF CURRENT WEIGHT. AVERY GOLL WITH NO NEW ORDERS.
[2018-12-23 19:55] VITALS: BP 135/66
[2018-12-23] MEDS: SENNOSIDES 8.6 MG TABLET GT SCH (21:36)
[2018-12-24] MEDS: BLOOD SUGAR DIAGNOSTIC 1 EACH STRIP IN SCH ×5 (00:19→23:43)
[2018-12-24] MEDS: BIOTENE MOISTURIZING MM SCH ×5 (00:19→23:44)
[2018-12-24] MEDS: METOCLOPRAMIDE HCL 10 MG TABLET GT SCH ×5 (00:19→23:43)
[2018-12-24] MEDS: INSULIN REGULAR, HUMAN 100 UNIT/ML 3 ML VIAL SQ PRN ×5 (00:20→23:46)
[2018-12-24 00:33] VITALS: BP 122/61
[2018-12-24] MEDS: IPRATROPIUM NEB FS 0.5 MG/2.5 ML AMPUL.NEB NEB SCH ×4 (01:21→19:57)
[2018-12-24 06:17] VITALS: BP 143/79
[2018-12-24 08:00] VITALS: BP 146/63
[2018-12-24] MEDS: HYDROGEN PEROXIDE 480 ML BOTTLE TP SCH ×2 (08:04→20:20)
--- NOTE | 2018-12-24 09:06 | NUR ---
SW reminded patient's responsible democrat, Jennifer [phone] of the December Family Support group taking place 12/24/18 from 11am-12pm in the old admin. conference room.
[2018-12-24] MEDS: DOCUSATE SODIUM LIQ 100 MG/10 ML UDC GT SCH (09:42)
[2018-12-24] MEDS: METOPROLOL TARTRATE 25 MG TABLET GT SCH ×2 (09:42→21:15)
[2018-12-24] MEDS: ACETAMINOPHEN 650 MG/20.3 ML UDC GT SCH ×2 (09:42→21:15)
[2018-12-24] MEDS: ZINC SULFATE 220 MG CAPSULE GT SCH (09:42)
[2018-12-24] MEDS: PROSOURCE / PROSTAT (PYXIS) 30 ML UDC GT SCH (09:42)
[2018-12-24] MEDS: ASCORBIC ACID 500 MG TABLET GT SCH (09:42)
[2018-12-24] MEDS: MULTIVIT W/MINERALS 1 TAB TABLET GT SCH (09:42)
[2018-12-24] MEDS: NEPRO 1,000 ML BOTTLE GT PRN (09:42)
[2018-12-24] MEDS: ACIDOPHILUS/BULGARICUS 1 EACH TAB.CHEW GT SCH ×2 (09:42→21:14)
[2018-12-24] MEDS: INSULIN DETEMIR 100 UNIT/ML CARTRIDGE SQ SCH ×2 (09:57→21:25)
[2018-12-24] MEDS: Z GUARD REMEDY 4 OZ OINT TP SCH ×6 (10:15→21:16)
[2018-12-24] MEDS: VITAMINS A AND D 56.7 GM TUBE TP SCH ×2 (10:15→21:16)
[2018-12-24] MEDS: CLOTRIMAZOLE 1% 15 GM TUBE TP SCH ×2 (10:15→21:15)
[2018-12-24] MEDS: DAKINS QUARTER STRENGTH (0.125%) 480 ML BOTTLE TOP SCH ×2 (10:15→21:15)
[2018-12-24] MEDS: NYSTATIN/TRIAMCIN CREAM 15 GM TUBE TP SCH ×2 (10:15→21:16)
[2018-12-24] MEDS: COD LIVER OIL/ZINC OXIDE 120 GM TUBE TP SCH ×3 (10:15→21:15)
[2018-12-24 12:00] VITALS: BP 133/74
[2018-12-24 18:00] VITALS: BP 150/78
[2018-12-24 20:06] VITALS: BP 139/69
[2018-12-24] MEDS: SENNOSIDES 8.6 MG TABLET GT SCH (21:16)
[2018-12-25] VITALS (7 sets, daily range): BP systolic 106–140; BP diastolic 40–69
[2018-12-25] MEDS: IPRATROPIUM NEB FS 0.5 MG/2.5 ML AMPUL.NEB NEB SCH ×4 (01:55→20:07)
[2018-12-25] MEDS: BLOOD SUGAR DIAGNOSTIC 1 EACH STRIP IN SCH ×4 (05:50→23:11)
[2018-12-25] MEDS: METOCLOPRAMIDE HCL 10 MG TABLET GT SCH ×4 (05:50→23:11)
[2018-12-25] MEDS: BIOTENE MOISTURIZING MM SCH ×4 (05:51→23:11)
[2018-12-25] MEDS: INSULIN REGULAR, HUMAN 100 UNIT/ML 3 ML VIAL SQ PRN ×4 (05:52→23:20)
[2018-12-25] MEDS: HYDROGEN PEROXIDE 480 ML BOTTLE TP SCH ×2 (08:08→21:53)
[2018-12-25] MEDS: ACIDOPHILUS/BULGARICUS 1 EACH TAB.CHEW GT SCH ×2 (09:29→21:58)
[2018-12-25] MEDS: DOCUSATE SODIUM LIQ 100 MG/10 ML UDC GT SCH (09:29)
[2018-12-25] MEDS: MULTIVIT W/MINERALS 1 TAB TABLET GT SCH (09:30)
[2018-12-25] MEDS: METOPROLOL TARTRATE 25 MG TABLET GT SCH ×2 (09:30→21:51)
[2018-12-25] MEDS: PROSOURCE / PROSTAT (PYXIS) 30 ML UDC GT SCH (09:30)
[2018-12-25] MEDS: ACETAMINOPHEN 650 MG/20.3 ML UDC GT SCH ×2 (09:30→21:52)
[2018-12-25] MEDS: ZINC SULFATE 220 MG CAPSULE GT SCH (09:30)
[2018-12-25] MEDS: ASCORBIC ACID 500 MG TABLET GT SCH (09:30)
[2018-12-25] MEDS: INSULIN DETEMIR 100 UNIT/ML CARTRIDGE SQ SCH ×2 (09:30→21:00)
[2018-12-25] MEDS: Z GUARD REMEDY 4 OZ OINT TP SCH ×6 (09:32→21:53)
[2018-12-25] MEDS: NYSTATIN/TRIAMCIN CREAM 15 GM TUBE TP SCH ×2 (09:32→21:53)
[2018-12-25] MEDS: CLOTRIMAZOLE 1% 15 GM TUBE TP SCH ×2 (09:32→21:53)
[2018-12-25] MEDS: VITAMINS A AND D 56.7 GM TUBE TP SCH ×2 (09:32→21:53)
[2018-12-25] MEDS: COD LIVER OIL/ZINC OXIDE 120 GM TUBE TP SCH ×3 (09:32→21:52)
[2018-12-25] MEDS: DAKINS QUARTER STRENGTH (0.125%) 480 ML BOTTLE TOP SCH ×2 (13:00→21:52)
--- NOTE | 2018-12-25 13:00 | NUR ---
Seen and examined by AVERY Krishnamurthy, no new order given.
[2018-12-25] MEDS: SENNOSIDES 8.6 MG TABLET GT SCH (21:54)
--- NOTE | 2018-12-25 23:09 | NUR ---
pt rec'd trached on [facility] vent on ac mode. no resp distress or sob noted. trach is patent and secured. sx'd for thick mod amt of pale yellow secretions. alarms are set and audible. vent plugged into red outlet. ambu bag bed side will continue to monitor. Addendum: 12/25/18 at 2309 by TALA YAO RT Amended: Links added.
[2018-12-26] VITALS: BP 127/54
[2018-12-26] MEDS: IPRATROPIUM NEB FS 0.5 MG/2.5 ML AMPUL.NEB NEB SCH ×4 (00:38→19:17)
[2018-12-26] MEDS: METOCLOPRAMIDE HCL 10 MG TABLET GT SCH ×3 (06:01→17:45)
[2018-12-26] MEDS: BIOTENE MOISTURIZING MM SCH ×3 (06:01→17:45)
[2018-12-26] MEDS: BLOOD SUGAR DIAGNOSTIC 1 EACH STRIP IN SCH ×3 (06:01→17:45)
[2018-12-26] MEDS: INSULIN REGULAR, HUMAN 100 UNIT/ML 3 ML VIAL SQ PRN ×3 (06:04→17:46)
[2018-12-26 06:57] VITALS: BP 129/55
[2018-12-26 07:59] VITALS: BP 157/68
[2018-12-26] MEDS: PROSOURCE / PROSTAT (PYXIS) 30 ML UDC GT SCH (09:26)
[2018-12-26] MEDS: DOCUSATE SODIUM LIQ 100 MG/10 ML UDC GT SCH (09:26)
[2018-12-26] MEDS: MULTIVIT W/MINERALS 1 TAB TABLET GT SCH (09:26)
[2018-12-26] MEDS: METOPROLOL TARTRATE 25 MG TABLET GT SCH ×2 (09:26→21:31)
[2018-12-26] MEDS: ACIDOPHILUS/BULGARICUS 1 EACH TAB.CHEW GT SCH ×2 (09:26→21:31)
[2018-12-26] MEDS: ZINC SULFATE 220 MG CAPSULE GT SCH (09:27)
[2018-12-26] MEDS: ASCORBIC ACID 500 MG TABLET GT SCH (09:27)
[2018-12-26] MEDS: ACETAMINOPHEN 650 MG/20.3 ML UDC GT SCH ×2 (09:27→21:31)
[2018-12-26] MEDS: INSULIN DETEMIR 100 UNIT/ML CARTRIDGE SQ SCH ×2 (09:29→21:43)
[2018-12-26] MEDS: HYDROGEN PEROXIDE 480 ML BOTTLE TP SCH ×2 (09:42→21:04)
[2018-12-26] MEDS: Z GUARD REMEDY 4 OZ OINT TP SCH ×6 (10:15→21:58)
[2018-12-26] MEDS: COD LIVER OIL/ZINC OXIDE 120 GM TUBE TP SCH ×3 (10:15→21:58)
[2018-12-26] MEDS: VITAMINS A AND D 56.7 GM TUBE TP SCH ×2 (10:15→21:58)
[2018-12-26] MEDS: NYSTATIN/TRIAMCIN CREAM 15 GM TUBE TP SCH ×2 (10:15→21:58)
[2018-12-26] MEDS: CLOTRIMAZOLE 1% 15 GM TUBE TP SCH ×2 (10:15→21:58)
[2018-12-26] MEDS: DAKINS QUARTER STRENGTH (0.125%) 480 ML BOTTLE TOP SCH ×2 (10:15→21:58)
[2018-12-26 12:00] VITALS: BP 142/89
[2018-12-26] MEDS: NEPRO 1,000 ML BOTTLE GT PRN (17:00)
[2018-12-26 18:44] VITALS: BP 138/59
[2018-12-26 20:09] VITALS: BP 133/57
[2018-12-26] MEDS: SENNOSIDES 8.6 MG TABLET GT SCH (21:31)
[2018-12-27] MEDS: METOCLOPRAMIDE HCL 10 MG TABLET GT SCH ×5 (00:23→23:06)
[2018-12-27] MEDS: BLOOD SUGAR DIAGNOSTIC 1 EACH STRIP IN SCH ×5 (00:23→23:06)
[2018-12-27] MEDS: BIOTENE MOISTURIZING MM SCH ×5 (00:23→23:06)
[2018-12-27] MEDS: INSULIN REGULAR, HUMAN 100 UNIT/ML 3 ML VIAL SQ PRN ×5 (00:27→23:08)
[2018-12-27 00:30] VITALS: BP 129/47
[2018-12-27] MEDS: IPRATROPIUM NEB FS 0.5 MG/2.5 ML AMPUL.NEB NEB SCH ×4 (01:14→19:42)
--- NOTE | 2018-12-27 02:55 | NUR ---
RT NOTES TRACH TUBE IN PLACE, PATENT, AND SECURED WITH TRACH TIE. ALARMS ON AND AUDIBLE. VENT PLUGGED INTO THE RED OUTLET. AMBU BAG AND BACK UP TRACH BY THE BEDSIDE. PT STABLE AND SHOWS NO SIGNS OF ANY DISTRESS AT THIS TIME. Addendum: 12/27/18 at 0256 by ANDRES MARINO RT Amended: Links added.
[2018-12-27 06:11] VITALS: BP 134/72
[2018-12-27 08:18] VITALS: BP 152/67
[2018-12-27] MEDS: ASCORBIC ACID 500 MG TABLET GT SCH (08:41)
[2018-12-27] MEDS: PROSOURCE / PROSTAT (PYXIS) 30 ML UDC GT SCH (08:41)
[2018-12-27] MEDS: ACIDOPHILUS/BULGARICUS 1 EACH TAB.CHEW GT SCH ×2 (08:41→21:12)
[2018-12-27] MEDS: MULTIVIT W/MINERALS 1 TAB TABLET GT SCH (08:41)
[2018-12-27] MEDS: ZINC SULFATE 220 MG CAPSULE GT SCH (08:41)
[2018-12-27] MEDS: DOCUSATE SODIUM LIQ 100 MG/10 ML UDC GT SCH (08:41)
[2018-12-27] MEDS: ACETAMINOPHEN 650 MG/20.3 ML UDC GT SCH ×2 (08:43→21:12)
[2018-12-27] MEDS: INSULIN DETEMIR 100 UNIT/ML CARTRIDGE SQ SCH ×2 (08:43→21:38)
[2018-12-27] MEDS: METOPROLOL TARTRATE 25 MG TABLET GT SCH ×2 (08:44→21:12)
[2018-12-27] MEDS: HYDROGEN PEROXIDE 480 ML BOTTLE TP SCH ×2 (09:00→21:17)
[2018-12-27] MEDS: VITAMINS A AND D 56.7 GM TUBE TP SCH ×2 (09:30→21:39)
[2018-12-27] MEDS: COD LIVER OIL/ZINC OXIDE 120 GM TUBE TP SCH ×3 (09:30→21:38)
[2018-12-27] MEDS: DAKINS QUARTER STRENGTH (0.125%) 480 ML BOTTLE TOP SCH ×2 (09:30→21:38)
[2018-12-27] MEDS: NYSTATIN/TRIAMCIN CREAM 15 GM TUBE TP SCH ×2 (09:30→21:38)
[2018-12-27] MEDS: CLOTRIMAZOLE 1% 15 GM TUBE TP SCH ×2 (09:30→21:38)
[2018-12-27] MEDS: Z GUARD REMEDY 4 OZ OINT TP SCH ×6 (09:30→21:38)
[2018-12-27 12:00] VITALS: BP 138/64
[2018-12-27 18:21] VITALS: BP 149/73
[2018-12-27] MEDS: NEPRO 1,000 ML BOTTLE GT PRN (18:57)
[2018-12-27 20:28] VITALS: BP 146/70
[2018-12-27] MEDS: SENNOSIDES 8.6 MG TABLET GT SCH (21:13)
[2018-12-28 00:26] VITALS: BP 134/58
[2018-12-28] MEDS: IPRATROPIUM NEB FS 0.5 MG/2.5 ML AMPUL.NEB NEB SCH ×4 (01:24→19:33)
[2018-12-28] MEDS: BLOOD SUGAR DIAGNOSTIC 1 EACH STRIP IN SCH ×3 (05:56→17:40)
[2018-12-28] MEDS: METOCLOPRAMIDE HCL 10 MG TABLET GT SCH ×3 (05:56→17:40)
[2018-12-28] MEDS: BIOTENE MOISTURIZING MM SCH ×3 (05:56→17:40)
[2018-12-28] MEDS: INSULIN REGULAR, HUMAN 100 UNIT/ML 3 ML VIAL SQ PRN ×3 (05:58→17:41)
[2018-12-28 06:29] VITALS: BP 142/59
[2018-12-28 08:08] VITALS: BP 125/76
[2018-12-28] MEDS: ASCORBIC ACID 500 MG TABLET GT SCH (08:23)
[2018-12-28] MEDS: ACIDOPHILUS/BULGARICUS 1 EACH TAB.CHEW GT SCH ×2 (08:23→20:32)
[2018-12-28] MEDS: DOCUSATE SODIUM LIQ 100 MG/10 ML UDC GT SCH (08:23)
[2018-12-28] MEDS: MULTIVIT W/MINERALS 1 TAB TABLET GT SCH (08:23)
[2018-12-28] MEDS: PROSOURCE / PROSTAT (PYXIS) 30 ML UDC GT SCH (08:23)
[2018-12-28] MEDS: ZINC SULFATE 220 MG CAPSULE GT SCH (08:23)
[2018-12-28] MEDS: ACETAMINOPHEN 650 MG/20.3 ML UDC GT SCH ×2 (08:27→20:34)
[2018-12-28] MEDS: INSULIN DETEMIR 100 UNIT/ML CARTRIDGE SQ SCH ×2 (08:27→20:46)
[2018-12-28] MEDS: METOPROLOL TARTRATE 25 MG TABLET GT SCH ×2 (08:28→20:34)
[2018-12-28] MEDS: HYDROGEN PEROXIDE 480 ML BOTTLE TP SCH ×2 (09:00→21:05)
[2018-12-28] MEDS: Z GUARD REMEDY 4 OZ OINT TP SCH ×6 (09:05→20:35)
[2018-12-28] MEDS: DAKINS QUARTER STRENGTH (0.125%) 480 ML BOTTLE TOP SCH ×2 (09:05→20:35)
[2018-12-28] MEDS: NYSTATIN/TRIAMCIN CREAM 15 GM TUBE TP SCH ×2 (09:05→20:35)
[2018-12-28] MEDS: CLOTRIMAZOLE 1% 15 GM TUBE TP SCH ×2 (09:05→20:35)
[2018-12-28] MEDS: COD LIVER OIL/ZINC OXIDE 120 GM TUBE TP SCH ×3 (09:05→20:35)
[2018-12-28] MEDS: VITAMINS A AND D 56.7 GM TUBE TP SCH ×2 (09:05→20:36)
[2018-12-28 12:00] VITALS: BP 129/57
[2018-12-28 18:46] VITALS: BP 137/56
[2018-12-28 20:29] VITALS: BP 140/59
[2018-12-28] MEDS: SENNOSIDES 8.6 MG TABLET GT SCH (22:31)
[2018-12-29 00:10] VITALS: BP 139/67
[2018-12-29] MEDS: BLOOD SUGAR DIAGNOSTIC 1 EACH STRIP IN SCH ×4 (00:11→17:17)
[2018-12-29] MEDS: METOCLOPRAMIDE HCL 10 MG TABLET GT SCH ×4 (00:11→17:17)
[2018-12-29] MEDS: BIOTENE MOISTURIZING MM SCH ×4 (00:11→17:17)
[2018-12-29] MEDS: INSULIN REGULAR, HUMAN 100 UNIT/ML 3 ML VIAL SQ PRN ×4 (00:13→17:19)
[2018-12-29] MEDS: IPRATROPIUM NEB FS 0.5 MG/2.5 ML AMPUL.NEB NEB SCH ×4 (01:27→19:23)
[2018-12-29] MEDS: NEPRO 1,000 ML BOTTLE GT PRN (04:54)
[2018-12-29 06:07] VITALS: BP 138/56
[2018-12-29] MEDS: HYDROGEN PEROXIDE 480 ML BOTTLE TP SCH ×2 (07:14→21:00)
[2018-12-29 07:49] VITALS: BP 159/74
[2018-12-29] MEDS: ZINC SULFATE 220 MG CAPSULE GT SCH (08:41)
[2018-12-29] MEDS: DOCUSATE SODIUM LIQ 100 MG/10 ML UDC GT SCH (08:41)
[2018-12-29] MEDS: ACIDOPHILUS/BULGARICUS 1 EACH TAB.CHEW GT SCH ×2 (08:41→20:33)
[2018-12-29] MEDS: PROSOURCE / PROSTAT (PYXIS) 30 ML UDC GT SCH (08:41)
[2018-12-29] MEDS: ASCORBIC ACID 500 MG TABLET GT SCH (08:41)
[2018-12-29] MEDS: ACETAMINOPHEN 650 MG/20.3 ML UDC GT SCH ×2 (08:42→20:34)
[2018-12-29] MEDS: METOPROLOL TARTRATE 25 MG TABLET GT SCH ×2 (08:43→20:33)
[2018-12-29] MEDS: INSULIN DETEMIR 100 UNIT/ML CARTRIDGE SQ SCH ×2 (08:44→20:35)
[2018-12-29] MEDS: MULTIVIT W/MINERALS 1 TAB TABLET GT SCH (08:55)
[2018-12-29] MEDS: CLOTRIMAZOLE 1% 15 GM TUBE TP SCH ×2 (09:20→20:36)
[2018-12-29] MEDS: COD LIVER OIL/ZINC OXIDE 120 GM TUBE TP SCH ×3 (09:20→20:36)
[2018-12-29] MEDS: Z GUARD REMEDY 4 OZ OINT TP SCH ×6 (09:20→20:37)
[2018-12-29] MEDS: DAKINS QUARTER STRENGTH (0.125%) 480 ML BOTTLE TOP SCH ×2 (09:20→20:36)
[2018-12-29] MEDS: NYSTATIN/TRIAMCIN CREAM 15 GM TUBE TP SCH ×2 (09:20→20:36)
[2018-12-29] MEDS: VITAMINS A AND D 56.7 GM TUBE TP SCH ×2 (09:20→20:37)
[2018-12-29 12:00] VITALS: BP 132/68
--- NOTE | 2018-12-29 15:52 | NUR ---
RT NOTE: RECEIVED PT ON ORDERED NOTED VENT SETTINGS. NO RESPIRATORY DISTRESS NOTED. TRACH CHECKED SECURE AND PATENT. SXD AND LAVAGED PT Q ROUND AND NEEDED. TXS GIVEN ORDERED WITH NO ADVERSE REACTIONS NOTED. TRACH/ORAL CARE DONE. SPARE TRACH AND AMBU BAG @ BEDSIDE. VENT PLUGGED INTO RED OUTLET.
[2018-12-29] MEDS: MAGNESIUM HYDROXIDE 30 ML UDC GT PRN (16:35)
[2018-12-29 18:25] VITALS: BP 140/72
[2018-12-29 20:30] VITALS: BP 124/60
[2018-12-29] MEDS: SENNOSIDES 8.6 MG TABLET GT SCH (22:52)
[2018-12-30] VITALS (7 sets, daily range): BP systolic 112–133; BP diastolic 50–74
[2018-12-30] MEDS: BIOTENE MOISTURIZING MM SCH ×4 (00:21→17:32)
[2018-12-30] MEDS: METOCLOPRAMIDE HCL 10 MG TABLET GT SCH ×4 (00:21→17:32)
[2018-12-30] MEDS: BLOOD SUGAR DIAGNOSTIC 1 EACH STRIP IN SCH ×4 (00:21→17:32)
[2018-12-30] MEDS: INSULIN REGULAR, HUMAN 100 UNIT/ML 3 ML VIAL SQ PRN ×4 (00:23→17:33)
[2018-12-30] MEDS: IPRATROPIUM NEB FS 0.5 MG/2.5 ML AMPUL.NEB NEB SCH ×4 (01:22→19:58)
[2018-12-30 06:57] LABS: BASOPHILS # (AUTO) 0.1 /CMM (0.0-0.2); BASOPHILS % (AUTO) 0.6 % (0.0-2.0); EOSINOPHILS % (AUTO) 4.3 % (0.0-6.0); HEMATOCRIT 29 % (33-45); HEMOGLOBIN 9.3 g/dL (11.5-14.8); LYMPHOCYTES # (AUTO) 1.6 /CMM (0.8-4.8); LYMPHOCYTES % (AUTO) 16.8 % (20.0-44.0); MEAN CORPUSCULAR HGB CONC 32 g/dl (31.0-36.0); MEAN CORPUSCULAR VOLUME 81 fL (82-100); MONOCYTES # (AUTO) 0.8 /CMM (0.1-1.30); MONOCYTES % (AUTO) 8.7 % (2.0-12.0); NEUTROPHILS # (AUTO) 6.8 /CMM (1.8-8.9); NEUTROPHILS % (AUTO) 69.6 % (43.0-81.0); PLATELET COUNT (AUTO) 344 /CMM (150-450); RED BLOOD CELL COUNT(AUTO) 3.63 MIL/uL (4.0-5.2); WHITE BLOOD COUNT (AUTO) 9.7 K/uL (4.3-11.0)
[2018-12-30 07:27] LABS: CALCIUM, SERUM 9.6 mg/dL (8.5-10.1); CARBON DIOXIDE 28 mmol/L (21-32); CHLORIDE 100 mmol/L (98-107); CREATININE 1.7 mg/dL (0.6-1.3); GLUCOSE 197 mg/dL (74-106); MAGNESIUM 2.9 mg/dL (1.8-2.4); PHOSPHORUS 4.6 mg/dL (2.5-4.9); SODIUM SERUM 138 mmol/L (136-145)
[2018-12-30 07:28] LABS: UREA NITROGEN, BLOOD 88 mg/dL (7-18)
[2018-12-30] MEDS: DOCUSATE SODIUM LIQ 100 MG/10 ML UDC GT SCH (08:16)
[2018-12-30] MEDS: PROSOURCE / PROSTAT (PYXIS) 30 ML UDC GT SCH (08:16)
[2018-12-30] MEDS: ASCORBIC ACID 500 MG TABLET GT SCH (08:16)
[2018-12-30] MEDS: MULTIVIT W/MINERALS 1 TAB TABLET GT SCH (08:16)
[2018-12-30] MEDS: ACIDOPHILUS/BULGARICUS 1 EACH TAB.CHEW GT SCH ×2 (08:16→20:44)
[2018-12-30] MEDS: ZINC SULFATE 220 MG CAPSULE GT SCH (08:16)
[2018-12-30] MEDS: ACETAMINOPHEN 650 MG/20.3 ML UDC GT SCH ×2 (08:18→20:46)
[2018-12-30] MEDS: METOPROLOL TARTRATE 25 MG TABLET GT SCH ×2 (08:19→20:45)
[2018-12-30] MEDS: INSULIN DETEMIR 100 UNIT/ML CARTRIDGE SQ SCH ×2 (08:24→20:47)
--- NOTE | 2018-12-30 08:25 | NUR ---
RT NOTE: RECEIVED PT ON ORDERED NOTED VENT SETTINGS. NO RESPIRATORY DISTRESS NOTED. TRACH CHECKED SECURE AND PATENT. SXD AND LAVAGED PT Q ROUND AND NEEDED. TXS GIVEN ORDERED WITH NO ADVERSE REACTIONS NOTED. SPARE TRACH AND AMBU BAG @ BEDSIDE. VENT PLUGGED INTO RED OUTLET.
[2018-12-30] MEDS: Z GUARD REMEDY 4 OZ OINT TP SCH ×6 (09:00→20:48)
[2018-12-30] MEDS: DAKINS QUARTER STRENGTH (0.125%) 480 ML BOTTLE TOP SCH ×2 (09:00→20:47)
[2018-12-30] MEDS: VITAMINS A AND D 56.7 GM TUBE TP SCH ×2 (09:00→20:48)
[2018-12-30] MEDS: COD LIVER OIL/ZINC OXIDE 120 GM TUBE TP SCH ×3 (09:00→20:47)
[2018-12-30] MEDS: NYSTATIN/TRIAMCIN CREAM 15 GM TUBE TP SCH ×2 (09:00→20:47)
[2018-12-30] MEDS: CLOTRIMAZOLE 1% 15 GM TUBE TP SCH ×2 (09:00→20:47)
[2018-12-30] MEDS: HYDROGEN PEROXIDE 480 ML BOTTLE TP SCH ×2 (09:10→20:17)
--- NOTE | 2018-12-30 11:43 | NUR ---
RT NOTE ROUTINIE TRACH TUBE CHANGE DONE. MINIMAL BLEEDING NOTED PT VITALS SIGNS STABLE DURING PROCEDURE. WILL CONTINUE TO MONTIOR CLOSELY
[2018-12-30] MEDS: NEPRO 1,000 ML BOTTLE GT PRN (14:00)
[2018-12-30] MEDS: SENNOSIDES 8.6 MG TABLET GT SCH (21:50)
[2018-12-31 00:04] VITALS: BP 135/86
[2018-12-31] MEDS: BLOOD SUGAR DIAGNOSTIC 1 EACH STRIP IN SCH ×4 (00:10→17:50)
[2018-12-31] MEDS: METOCLOPRAMIDE HCL 10 MG TABLET GT SCH ×4 (00:10→17:19)
[2018-12-31] MEDS: BIOTENE MOISTURIZING MM SCH ×4 (00:10→17:19)
[2018-12-31] MEDS: INSULIN REGULAR, HUMAN 100 UNIT/ML 3 ML VIAL SQ PRN ×4 (00:12→17:53)
[2018-12-31] MEDS: IPRATROPIUM NEB FS 0.5 MG/2.5 ML AMPUL.NEB NEB SCH ×4 (00:38→20:08)
--- NOTE | 2018-12-31 03:41 | NUR ---
PT RCVD TRACH'D ON MECHANICAL VENT WITH CHARTED SETTINGS. PT BIRDIE TX WELL. SX DONE. PT TRACH IS PATENT AND SECURE. VENT PLUGGED INTO RED OUTLET. VENT ALARMS ARE ON AND AUDIBLE. AMBU BAG AT BEDSIDE. Addendum: 12/31/18 at 0343 by FELICITAS CRHISTIE RT Amended: Links added.
[2018-12-31 06:10] VITALS: BP 141/66
[2018-12-31 07:55] VITALS: BP 157/50
[2018-12-31] MEDS: HYDROGEN PEROXIDE 480 ML BOTTLE TP SCH ×2 (07:58→20:08)
[2018-12-31] MEDS: DOCUSATE SODIUM LIQ 100 MG/10 ML UDC GT SCH (09:00)
[2018-12-31] MEDS: NYSTATIN/TRIAMCIN CREAM 15 GM TUBE TP SCH ×2 (09:00→21:26)
[2018-12-31] MEDS: ZINC SULFATE 220 MG CAPSULE GT SCH (09:00)
[2018-12-31] MEDS: DAKINS QUARTER STRENGTH (0.125%) 480 ML BOTTLE TOP SCH ×2 (09:00→21:30)
[2018-12-31] MEDS: ACETAMINOPHEN 650 MG/20.3 ML UDC GT SCH ×2 (09:00→21:26)
[2018-12-31] MEDS: Z GUARD REMEDY 4 OZ OINT TP SCH ×6 (09:00→21:27)
[2018-12-31] MEDS: INSULIN DETEMIR 100 UNIT/ML CARTRIDGE SQ SCH ×2 (09:00→21:00)
[2018-12-31] MEDS: ACIDOPHILUS/BULGARICUS 1 EACH TAB.CHEW GT SCH ×2 (09:00→21:30)
[2018-12-31] MEDS: VITAMINS A AND D 56.7 GM TUBE TP SCH ×2 (09:00→21:30)
[2018-12-31] MEDS: COD LIVER OIL/ZINC OXIDE 120 GM TUBE TP SCH ×3 (09:00→21:26)
[2018-12-31] MEDS: ASCORBIC ACID 500 MG TABLET GT SCH (09:00)
[2018-12-31] MEDS: PROSOURCE / PROSTAT (PYXIS) 30 ML UDC GT SCH (09:00)
[2018-12-31] MEDS: MULTIVIT W/MINERALS 1 TAB TABLET GT SCH (09:00)
[2018-12-31] MEDS: METOPROLOL TARTRATE 25 MG TABLET GT SCH ×2 (09:00→21:00)
[2018-12-31 12:00] VITALS: BP 122/77
--- NOTE | 2018-12-31 13:25 | NUR ---
RT: RECEIVED PT ON [facility] VENT WITH SETTINGS PER MD ORDER. FORM COVERER DONE. SPARE TRACH AND AMBU BAG AT HEAD OF BED. ALARMS ON AND AUDIBLE. VENT PLUGGED INTO RED OUTLET. TX GIVEN ORDERED. NO ADVERSE REACTIONS OBSERVED. SUCTIONED MODERATE AMOUNTS OF THICK, PALE YELLOW SECRETIONS. TRACH CARE DONE. AIRWAY SECURED AND PATENT. NO SOB OR SIGNS OF DISTRESS NOTED AT THIS TIME. WILL CONTINUE TO MONITOR PT FOR ANY CHANGE OF CONDITION. Addendum: 12/31/18 at 1547 by WILBERT MILLIGAN RT Amended: Links added.
[2018-12-31] MEDS: NEPRO 1,000 ML BOTTLE GT PRN (17:20)
[2018-12-31 18:00] VITALS: BP 146/60
--- NOTE | 2018-12-31 20:08 | NUR ---
RT NOTE: RECEIVED TRACH PT ON [facility] VENT ON NOTED SETTINGS PER MD ORDERS. TRACH CARE DONE AND IS PATENT AND SECURED. TICKET MACHINE OPERATOR DONE. Q6 BREATHING TX GIVEN WITH NO ADVERSE REACTION NOTED. SX DONE PRN. VENT PLUGGED INTO RED OUTLET. ALARMS ON AND AUDIBLE. FROY BAG @ BEDSIDE. NO RESP DISTRESS AT THIS TIME. WILL CONT TO MONITOR PT. Addendum: 01/01/19 at 0240 by PREMA SOTO RT Amended: Links added.
[2018-12-31 20:24] VITALS: BP 122/65
[2018-12-31] MEDS: SENNOSIDES 8.6 MG TABLET GT SCH (22:16)
[2019-01-01] MEDS: BIOTENE MOISTURIZING MM SCH ×5 (00:06→23:52)
[2019-01-01] MEDS: METOCLOPRAMIDE HCL 10 MG TABLET GT SCH ×5 (00:06→23:52)
[2019-01-01 00:14] VITALS: BP 122/65
[2019-01-01] MEDS: BLOOD SUGAR DIAGNOSTIC 1 EACH STRIP IN SCH ×5 (00:26→23:52)
[2019-01-01] MEDS: INSULIN REGULAR, HUMAN 100 UNIT/ML 3 ML VIAL SQ PRN ×4 (00:42→17:36)
[2019-01-01] MEDS: IPRATROPIUM NEB FS 0.5 MG/2.5 ML AMPUL.NEB NEB SCH ×4 (01:51→20:23)
[2019-01-01 06:20] VITALS: BP 123/61
[2019-01-01 07:43] VITALS: BP 139/71
[2019-01-01] MEDS: INSULIN DETEMIR 100 UNIT/ML CARTRIDGE SQ SCH ×2 (09:00→21:00)
[2019-01-01] MEDS: HYDROGEN PEROXIDE 480 ML BOTTLE TP SCH ×2 (09:00→21:09)
[2019-01-01] MEDS: DOCUSATE SODIUM LIQ 100 MG/10 ML UDC GT SCH (09:00)
[2019-01-01] MEDS: MULTIVIT W/MINERALS 1 TAB TABLET GT SCH (09:00)
[2019-01-01] MEDS: ACIDOPHILUS/BULGARICUS 1 EACH TAB.CHEW GT SCH ×2 (09:00→21:03)
[2019-01-01] MEDS: ZINC SULFATE 220 MG CAPSULE GT SCH (09:00)
[2019-01-01] MEDS: METOPROLOL TARTRATE 25 MG TABLET GT SCH ×2 (09:00→21:05)
[2019-01-01] MEDS: PROSOURCE / PROSTAT (PYXIS) 30 ML UDC GT SCH (09:00)
[2019-01-01] MEDS: ASCORBIC ACID 500 MG TABLET GT SCH (09:00)
[2019-01-01] MEDS: ACETAMINOPHEN 650 MG/20.3 ML UDC GT SCH ×2 (10:30→21:05)
[2019-01-01] MEDS: Z GUARD REMEDY 4 OZ OINT TP SCH ×6 (11:00→21:06)
[2019-01-01] MEDS: COD LIVER OIL/ZINC OXIDE 120 GM TUBE TP SCH ×3 (11:00→21:05)
[2019-01-01] MEDS: DAKINS QUARTER STRENGTH (0.125%) 480 ML BOTTLE TOP SCH ×2 (11:00→21:05)
[2019-01-01] MEDS: NYSTATIN/TRIAMCIN CREAM 15 GM TUBE TP SCH ×2 (11:00→21:05)
[2019-01-01] MEDS: VITAMINS A AND D 56.7 GM TUBE TP SCH ×2 (11:00→21:06)
[2019-01-01 12:00] VITALS: BP 151/60
--- NOTE | 2019-01-01 15:20 | NUR ---
Family Invitation to IDT: SW contacted patients responsible republican/ Daughter, Jennifer Araiza [phone] to the next IDT meeting where the patients plan of care is to be reviewed on 01/09/19 12:30pm-1:30 pm. Per Jennifer, she cannot attend as she has to work.
[2019-01-01] MEDS: NEPRO 1,000 ML BOTTLE GT PRN (17:36)
[2019-01-01 18:00] VITALS: BP 137/58
[2019-01-01 20:28] VITALS: BP 146/71
[2019-01-01] MEDS: SENNOSIDES 8.6 MG TABLET GT SCH (21:06)
[2019-01-02] VITALS (7 sets, daily range): BP systolic 126–147; BP diastolic 62–73
[2019-01-02] MEDS: IPRATROPIUM NEB FS 0.5 MG/2.5 ML AMPUL.NEB NEB SCH ×4 (01:06→19:38)
[2019-01-02] MEDS: METOCLOPRAMIDE HCL 10 MG TABLET GT SCH ×3 (06:18→17:46)
[2019-01-02] MEDS: BIOTENE MOISTURIZING MM SCH ×3 (06:18→17:46)
[2019-01-02] MEDS: BLOOD SUGAR DIAGNOSTIC 1 EACH STRIP IN SCH ×3 (06:18→17:46)
[2019-01-02] MEDS: INSULIN REGULAR, HUMAN 100 UNIT/ML 3 ML VIAL SQ PRN ×4 (06:30→23:40)
[2019-01-02] MEDS: HYDROGEN PEROXIDE 480 ML BOTTLE TP SCH ×2 (08:13→21:19)
[2019-01-02] MEDS: DOCUSATE SODIUM LIQ 100 MG/10 ML UDC GT SCH (09:54)
[2019-01-02] MEDS: ACIDOPHILUS/BULGARICUS 1 EACH TAB.CHEW GT SCH ×2 (09:54→21:00)
[2019-01-02] MEDS: INSULIN DETEMIR 100 UNIT/ML CARTRIDGE SQ SCH ×2 (09:55→21:50)
[2019-01-02] MEDS: PROSOURCE / PROSTAT (PYXIS) 30 ML UDC GT SCH (09:55)
[2019-01-02] MEDS: ZINC SULFATE 220 MG CAPSULE GT SCH (09:55)
[2019-01-02] MEDS: ASCORBIC ACID 500 MG TABLET GT SCH (09:55)
[2019-01-02] MEDS: ACETAMINOPHEN 650 MG/20.3 ML UDC GT SCH ×2 (09:55→21:00)
[2019-01-02] MEDS: METOPROLOL TARTRATE 25 MG TABLET GT SCH ×2 (09:55→21:00)
[2019-01-02] MEDS: MULTIVIT W/MINERALS 1 TAB TABLET GT SCH (09:55)
[2019-01-02] MEDS: VITAMINS A AND D 56.7 GM TUBE TP SCH ×2 (10:40→21:00)
[2019-01-02] MEDS: NYSTATIN/TRIAMCIN CREAM 15 GM TUBE TP SCH ×2 (10:40→21:00)
[2019-01-02] MEDS: DAKINS QUARTER STRENGTH (0.125%) 480 ML BOTTLE TOP SCH ×2 (10:40→21:00)
[2019-01-02] MEDS: Z GUARD REMEDY 4 OZ OINT TP SCH ×6 (10:40→21:00)
[2019-01-02] MEDS: COD LIVER OIL/ZINC OXIDE 120 GM TUBE TP SCH ×3 (10:40→21:00)
--- NOTE | 2019-01-02 13:00 | NUR ---
Seen and examined by Sr. Dudley, no new order given.
--- NOTE | 2019-01-02 16:15 | NUR ---
RT NOTE: RECEIVED PT ON ORDERED NOTED VENT SETTINGS. NO RESPIRATORY DISTRESS NOTED. TRACH CHECKED SECURE AND PATENT. SXD AND LAVAGED PT Q ROUND AND NEEDED. TXS GIVEN ORDERED WITH NO ADVERSE REACTIONS NOTED. TRACH CARE DONE. SPARE TRACH AND AMBU BAG @ BEDSIDE. VENT PLUGGED INTO RED OUTLET.
--- NOTE | 2019-01-02 21:00 | NUR ---
G-TUBE RESIDUAL CHECKED- NO RESIDUAL.
[2019-01-02] MEDS: SENNOSIDES 8.6 MG TABLET GT SCH (22:32)
[2019-01-03] VITALS: BP 130/70
[2019-01-03] MEDS: BIOTENE MOISTURIZING MM SCH ×5 (00:37→23:37)
[2019-01-03] MEDS: BLOOD SUGAR DIAGNOSTIC 1 EACH STRIP IN SCH ×5 (00:37→23:37)
[2019-01-03] MEDS: METOCLOPRAMIDE HCL 10 MG TABLET GT SCH ×5 (00:37→23:37)
[2019-01-03] MEDS: IPRATROPIUM NEB FS 0.5 MG/2.5 ML AMPUL.NEB NEB SCH ×4 (01:28→19:52)
--- NOTE | 2019-01-03 04:36 | NUR ---
RT PATIENT WAS RECEIVED ON CONTINUOUS VENT SUPPORT ON NOTED VENT SETTINGS. HHN TREATMENT WAS GIVEN , NO ADVERSE REACTION NOTED. PATIENT STABLE THROUGHOUT THE SHIFT. AIRWAY PATENT AND SECURED. WILL CONTINUE TO MONITOR. Addendum: 01/03/19 at 0439 by NYA RICHARDS RT Amended: Links added.
[2019-01-03] MEDS: INSULIN REGULAR, HUMAN 100 UNIT/ML 3 ML VIAL SQ PRN ×4 (05:55→23:40)
[2019-01-03 06:00] VITALS: BP 114/43
[2019-01-03] MEDS: NEPRO 1,000 ML BOTTLE GT PRN (06:02)
[2019-01-03 07:35] VITALS: BP 125/42
[2019-01-03] MEDS: HYDROGEN PEROXIDE 480 ML BOTTLE TP SCH ×2 (09:00→21:14)
[2019-01-03] MEDS: ACETAMINOPHEN 650 MG/20.3 ML UDC GT SCH ×2 (09:54→21:13)
[2019-01-03] MEDS: ZINC SULFATE 220 MG CAPSULE GT SCH (09:54)
[2019-01-03] MEDS: DOCUSATE SODIUM LIQ 100 MG/10 ML UDC GT SCH (09:54)
[2019-01-03] MEDS: MULTIVIT W/MINERALS 1 TAB TABLET GT SCH (09:54)
[2019-01-03] MEDS: ACIDOPHILUS/BULGARICUS 1 EACH TAB.CHEW GT SCH ×2 (09:54→21:13)
[2019-01-03] MEDS: PROSOURCE / PROSTAT (PYXIS) 30 ML UDC GT SCH (09:54)
[2019-01-03] MEDS: METOPROLOL TARTRATE 25 MG TABLET GT SCH ×2 (09:54→21:13)
[2019-01-03] MEDS: ASCORBIC ACID 500 MG TABLET GT SCH (09:54)
[2019-01-03] MEDS: INSULIN DETEMIR 100 UNIT/ML CARTRIDGE SQ SCH ×2 (09:55→21:14)
[2019-01-03] MEDS: ONDANSETRON HCL 4 MG/5 ML SOLUTION GT PRN (10:00)
[2019-01-03] MEDS: NYSTATIN/TRIAMCIN CREAM 15 GM TUBE TP SCH ×2 (10:30→21:14)
[2019-01-03] MEDS: VITAMINS A AND D 56.7 GM TUBE TP SCH ×2 (10:30→21:14)
[2019-01-03] MEDS: Z GUARD REMEDY 4 OZ OINT TP SCH ×6 (10:30→21:14)
[2019-01-03] MEDS: COD LIVER OIL/ZINC OXIDE 120 GM TUBE TP SCH ×3 (10:30→21:14)
[2019-01-03] MEDS: DAKINS QUARTER STRENGTH (0.125%) 480 ML BOTTLE TOP SCH ×2 (10:30→21:14)
[2019-01-03 12:00] VITALS: BP 145/68
[2019-01-03] MEDS: MAGNESIUM HYDROXIDE 30 ML UDC GT PRN (17:00)
[2019-01-03 18:58] VITALS: BP 128/55
--- NOTE | 2019-01-03 19:52 | NUR ---
RT Notes PT received trached on [facility] vent on charted settings. No signs of resp distress/SOB noted at this time. Airway patent and secured. GAS PLANT TECHNICIAN done. PT suctioned. HHN tx margaux well. No adverse reaction. Ambubag and back up track at head of bead. Alarms set and audible. Vent connected to red outlet. Will cont to monitor. Addendum: 01/04/19 at 0604 by AMANDO RESENDEZ RT Amended: Links added.
[2019-01-03 20:54] VITALS: BP 112/58
[2019-01-03] MEDS: SENNOSIDES 8.6 MG TABLET GT SCH (21:14)
[2019-01-04] VITALS: BP 137/72
[2019-01-04] MEDS: IPRATROPIUM NEB FS 0.5 MG/2.5 ML AMPUL.NEB NEB SCH ×4 (01:40→19:27)
[2019-01-04] MEDS: METOCLOPRAMIDE HCL 10 MG TABLET GT SCH ×3 (05:43→17:11)
[2019-01-04] MEDS: BLOOD SUGAR DIAGNOSTIC 1 EACH STRIP IN SCH ×3 (05:43→17:11)
[2019-01-04] MEDS: BIOTENE MOISTURIZING MM SCH ×3 (05:43→17:11)
[2019-01-04] MEDS: INSULIN REGULAR, HUMAN 100 UNIT/ML 3 ML VIAL SQ PRN ×3 (05:44→17:14)
[2019-01-04 06:00] VITALS: BP 124/55
[2019-01-04 07:04] VITALS: BP 118/62
[2019-01-04] MEDS: HYDROGEN PEROXIDE 480 ML BOTTLE TP SCH ×2 (08:22→21:00)
[2019-01-04] MEDS: ACIDOPHILUS/BULGARICUS 1 EACH TAB.CHEW GT SCH ×2 (09:38→21:00)
[2019-01-04] MEDS: DOCUSATE SODIUM LIQ 100 MG/10 ML UDC GT SCH (09:38)
[2019-01-04] MEDS: PROSOURCE / PROSTAT (PYXIS) 30 ML UDC GT SCH (09:39)
[2019-01-04] MEDS: NEPRO 1,000 ML BOTTLE GT PRN (09:39)
[2019-01-04] MEDS: MULTIVIT W/MINERALS 1 TAB TABLET GT SCH (09:39)
[2019-01-04] MEDS: ASCORBIC ACID 500 MG TABLET GT SCH (09:39)
[2019-01-04] MEDS: ACETAMINOPHEN 650 MG/20.3 ML UDC GT SCH ×2 (09:39→21:00)
[2019-01-04] MEDS: ZINC SULFATE 220 MG CAPSULE GT SCH (09:39)
[2019-01-04] MEDS: METOPROLOL TARTRATE 25 MG TABLET GT SCH ×2 (09:43→21:00)
[2019-01-04] MEDS: INSULIN DETEMIR 100 UNIT/ML CARTRIDGE SQ SCH ×2 (09:44→21:00)
[2019-01-04] MEDS: DAKINS QUARTER STRENGTH (0.125%) 480 ML BOTTLE TOP SCH ×2 (09:48→21:00)
[2019-01-04] MEDS: NYSTATIN/TRIAMCIN CREAM 15 GM TUBE TP SCH (09:48)
[2019-01-04] MEDS: COD LIVER OIL/ZINC OXIDE 120 GM TUBE TP SCH ×3 (09:48→21:00)
[2019-01-04] MEDS: VITAMINS A AND D 56.7 GM TUBE TP SCH ×2 (09:49→21:00)
[2019-01-04] MEDS: Z GUARD REMEDY 4 OZ OINT TP SCH ×6 (09:49→21:00)
--- NOTE | 2019-01-04 11:11 | NUR ---
RT: RECEIVED PT ON [facility] VENT WITH SETTINGS PER MD ORDER. BALL POINT SPLITTER DONE. SPARE TRACH AND AMBU BAG AT HEAD OF BED. ALARMS ON AND AUDIBLE. VENT PLUGGED INTO RED OUTLET. TX GIVEN ORDERED. NO ADVERSE REACTIONS OBSERVED. SUCTIONED MODERATE AMOUNTS OF THICK, PALE YELLOW SECRETIONS. TRACH CARE DONE. AIRWAY SECURED AND PATENT. NO SOB NOYRF WILL CONTINUE TO MONITOR PT FOR ANY CHANGES. VENT CIRCUIT CHANGED PER RT PROTOCOL. Addendum: 01/04/19 at 1831 by WILBERT MILLIGAN RT Amended: Links added.
[2019-01-04 12:00] VITALS: BP 141/81
--- NOTE | 2019-01-04 14:53 | NUR ---
Seen and examined by Dr. Patrick, made aware that patient had an episode of vomiting yesterday but none today. NNO given.
--- NOTE | 2019-01-04 15:04 | NUR ---
TRANSFERRER AD Quesada was given an update on the patient's old GT abdominal wound which is is healing, no drainage. She said she will take a look at it tomorrow.
[2019-01-04 18:00] VITALS: BP 140/70
[2019-01-04 20:01] VITALS: BP 128/63
[2019-01-04] MEDS: SENNOSIDES 8.6 MG TABLET GT SCH (22:07)
[2019-01-05] VITALS: BP 136/59
[2019-01-05] MEDS: METOCLOPRAMIDE HCL 10 MG TABLET GT SCH ×5 (00:40→23:22)
[2019-01-05] MEDS: BLOOD SUGAR DIAGNOSTIC 1 EACH STRIP IN SCH ×5 (00:44→23:22)
[2019-01-05] MEDS: BIOTENE MOISTURIZING MM SCH ×5 (00:44→23:23)
[2019-01-05] MEDS: INSULIN REGULAR, HUMAN 100 UNIT/ML 3 ML VIAL SQ PRN ×5 (00:46→23:23)
[2019-01-05] MEDS: IPRATROPIUM NEB FS 0.5 MG/2.5 ML AMPUL.NEB NEB SCH ×4 (02:01→19:05)
[2019-01-05 06:00] VITALS: BP 135/62
[2019-01-05 07:52] VITALS: BP 110/67
[2019-01-05] MEDS: ACIDOPHILUS/BULGARICUS 1 EACH TAB.CHEW GT SCH ×2 (08:33→21:14)
[2019-01-05] MEDS: DOCUSATE SODIUM LIQ 100 MG/10 ML UDC GT SCH (08:33)
[2019-01-05] MEDS: METOPROLOL TARTRATE 25 MG TABLET GT SCH ×2 (08:34→21:15)
[2019-01-05] MEDS: PROSOURCE / PROSTAT (PYXIS) 30 ML UDC GT SCH (08:34)
[2019-01-05] MEDS: MULTIVIT W/MINERALS 1 TAB TABLET GT SCH (08:34)
[2019-01-05] MEDS: ACETAMINOPHEN 650 MG/20.3 ML UDC GT SCH ×2 (08:35→21:15)
[2019-01-05] MEDS: ASCORBIC ACID 500 MG TABLET GT SCH (08:36)
[2019-01-05] MEDS: ZINC SULFATE 220 MG CAPSULE GT SCH (08:36)
[2019-01-05] MEDS: Z GUARD REMEDY 4 OZ OINT TP SCH ×6 (08:37→21:16)
[2019-01-05] MEDS: COD LIVER OIL/ZINC OXIDE 120 GM TUBE TP SCH ×3 (08:37→21:15)
[2019-01-05] MEDS: INSULIN DETEMIR 100 UNIT/ML CARTRIDGE SQ SCH ×2 (08:37→21:15)
[2019-01-05] MEDS: DAKINS QUARTER STRENGTH (0.125%) 480 ML BOTTLE TOP SCH ×2 (08:37→21:15)
[2019-01-05] MEDS: VITAMINS A AND D 56.7 GM TUBE TP SCH ×2 (08:38→21:16)
[2019-01-05] MEDS: HYDROGEN PEROXIDE 480 ML BOTTLE TP SCH ×2 (09:00→20:57)
[2019-01-05 12:00] VITALS: BP 140/68
[2019-01-05] MEDS: NEPRO 1,000 ML BOTTLE GT PRN (15:39)
[2019-01-05 18:00] VITALS: BP 136/62
[2019-01-05 21:03] VITALS: BP 132/72
[2019-01-05] MEDS: SENNOSIDES 8.6 MG TABLET GT SCH (21:16)
[2019-01-06] VITALS (7 sets, daily range): BP systolic 110–133; BP diastolic 50–82
[2019-01-06] MEDS: IPRATROPIUM NEB FS 0.5 MG/2.5 ML AMPUL.NEB NEB SCH ×4 (00:32→19:00)
[2019-01-06] MEDS: BIOTENE MOISTURIZING MM SCH ×4 (05:39→23:51)
[2019-01-06] MEDS: BLOOD SUGAR DIAGNOSTIC 1 EACH STRIP IN SCH ×4 (05:39→23:51)
[2019-01-06] MEDS: METOCLOPRAMIDE HCL 10 MG TABLET GT SCH ×4 (05:39→23:51)
[2019-01-06] MEDS: INSULIN REGULAR, HUMAN 100 UNIT/ML 3 ML VIAL SQ PRN ×4 (05:40→23:55)
--- NOTE | 2019-01-06 07:34 | NUR ---
RT Pt received trached on the vent with noted settings. Vent is plugged into red outlet. Pt suctioned, HHN tx given with no adverse reactions. No respiratory distress noted at this time. Addendum: 01/06/19 at 0935 by ZAK SUAREZ RT Amended: Links added.
[2019-01-06] MEDS: Z GUARD REMEDY 4 OZ OINT TP SCH ×6 (09:00→21:43)
[2019-01-06] MEDS: HYDROGEN PEROXIDE 480 ML BOTTLE TP SCH ×2 (09:00→21:40)
[2019-01-06] MEDS: ACIDOPHILUS/BULGARICUS 1 EACH TAB.CHEW GT SCH ×2 (09:30→21:39)
[2019-01-06] MEDS: DOCUSATE SODIUM LIQ 100 MG/10 ML UDC GT SCH (09:30)
[2019-01-06] MEDS: ACETAMINOPHEN 650 MG/20.3 ML UDC GT SCH ×2 (09:31→21:40)
[2019-01-06] MEDS: PROSOURCE / PROSTAT (PYXIS) 30 ML UDC GT SCH (09:31)
[2019-01-06] MEDS: ASCORBIC ACID 500 MG TABLET GT SCH (09:31)
[2019-01-06] MEDS: MULTIVIT W/MINERALS 1 TAB TABLET GT SCH (09:31)
[2019-01-06] MEDS: ZINC SULFATE 220 MG CAPSULE GT SCH (09:31)
[2019-01-06] MEDS: METOPROLOL TARTRATE 25 MG TABLET GT SCH ×2 (09:31→21:40)
[2019-01-06] MEDS: INSULIN DETEMIR 100 UNIT/ML CARTRIDGE SQ SCH ×2 (09:42→21:00)
[2019-01-06] MEDS: VITAMINS A AND D 56.7 GM TUBE TP SCH ×2 (10:00→21:43)
[2019-01-06] MEDS: COD LIVER OIL/ZINC OXIDE 120 GM TUBE TP SCH ×3 (10:00→21:40)
[2019-01-06] MEDS: DAKINS QUARTER STRENGTH (0.125%) 480 ML BOTTLE TOP SCH ×2 (10:00→21:40)
--- NOTE | 2019-01-06 12:21 | NUR ---
Late entry for 01/01/19 Pt's G-tube came out and was replaced with GT Fr 20 x [address] Patrick. He ordered to do KUB to confirm G-tube placement. Relayed KUB result to Dr Patrick. Resumed use of G-tube for feeding and medications.
[2019-01-06] MEDS: NEPRO 1,000 ML BOTTLE GT PRN (17:51)
[2019-01-06] MEDS: SENNOSIDES 8.6 MG TABLET GT SCH (21:43)
[2019-01-07] VITALS: BP 132/50
[2019-01-07] MEDS: IPRATROPIUM NEB FS 0.5 MG/2.5 ML AMPUL.NEB NEB SCH ×4 (00:54→19:51)
[2019-01-07] MEDS: BIOTENE MOISTURIZING MM SCH ×3 (05:34→17:08)
[2019-01-07] MEDS: METOCLOPRAMIDE HCL 10 MG TABLET GT SCH ×3 (05:34→17:08)
[2019-01-07] MEDS: BLOOD SUGAR DIAGNOSTIC 1 EACH STRIP IN SCH ×3 (05:58→17:57)
[2019-01-07] MEDS: INSULIN REGULAR, HUMAN 100 UNIT/ML 3 ML VIAL SQ PRN ×3 (05:59→18:00)
[2019-01-07 06:00] VITALS: BP 138/50
[2019-01-07 07:53] VITALS: BP 135/71
[2019-01-07] MEDS: HYDROGEN PEROXIDE 480 ML BOTTLE TP SCH ×2 (08:12→21:56)
[2019-01-07] MEDS: ACETAMINOPHEN 650 MG/20.3 ML UDC GT SCH ×2 (09:22→21:03)
[2019-01-07] MEDS: ACIDOPHILUS/BULGARICUS 1 EACH TAB.CHEW GT SCH ×2 (09:22→21:00)
[2019-01-07] MEDS: ZINC SULFATE 220 MG CAPSULE GT SCH (09:22)
[2019-01-07] MEDS: ASCORBIC ACID 500 MG TABLET GT SCH (09:22)
[2019-01-07] MEDS: DOCUSATE SODIUM LIQ 100 MG/10 ML UDC GT SCH (09:22)
[2019-01-07] MEDS: MULTIVIT W/MINERALS 1 TAB TABLET GT SCH (09:22)
[2019-01-07] MEDS: METOPROLOL TARTRATE 25 MG TABLET GT SCH ×2 (09:22→21:02)
[2019-01-07] MEDS: PROSOURCE / PROSTAT (PYXIS) 30 ML UDC GT SCH (09:22)
[2019-01-07] MEDS: INSULIN DETEMIR 100 UNIT/ML CARTRIDGE SQ SCH ×2 (09:40→21:17)
[2019-01-07] MEDS: VITAMINS A AND D 56.7 GM TUBE TP SCH ×2 (10:00→21:23)
[2019-01-07] MEDS: COD LIVER OIL/ZINC OXIDE 120 GM TUBE TP SCH ×3 (10:00→21:22)
[2019-01-07] MEDS: DAKINS QUARTER STRENGTH (0.125%) 480 ML BOTTLE TOP SCH ×2 (10:00→21:22)
[2019-01-07] MEDS: Z GUARD REMEDY 4 OZ OINT TP SCH ×6 (10:00→21:23)
[2019-01-07 12:00] VITALS: BP 112/58
--- NOTE | 2019-01-07 13:07 | NUR ---
RT PATIENT RECEIVED TRACHED ON MECH VENT WITH SETTINGS PER MD ORDER. STONE DECORATOR DONE. SPARE TRACH AND AMBU BAG AT HEAD OF BED. ALARMS ON AND AUDIBLE. VENT PLUGGED INTO RED OUTLET. TX GIVEN ORDERED. NO ADVERSE EFFECTS OBSERVED. SUCTIONED MODERATE AMOUNTS OF THICK, YELLOW SECRETIONS. TRACH CARE DONE. AIRWAY SECURED AND PATENT. NO SOB NOYRF WILL CONTINUE TO MONITOR PT FOR ANY CHANGES.
--- NOTE | 2019-01-07 13:08 | NUR ---
RT: PATIENT RECEIVED TRACHED ON [facility] VENT WITH SETTINGS PER MD ORDER. MOTORBOAT MECHANIC DONE. SPARE TRACH AND AMBU BAG AT HEAD OF BED. ALARMS ON AND AUDIBLE. VENT PLUGGED INTO RED OUTLET. TX GIVEN ORDERED. NO ADVERSE REACTIONS OBSERVED. SUCTIONED MODERATE AMOUNTS OF THICK, PALE YELLOW SECRETIONS. TRACH CARE DONE. AIRWAY SECURED AND PATENT. NO SOB NOTED. WILL CONTINUE TO MONITOR PT FOR ANY CHANGES. Addendum: 01/07/19 at 1309 by WILBERT MILLIGAN RT Amended: Links added.
[2019-01-07 18:51] VITALS: BP 147/72
--- NOTE | 2019-01-07 19:51 | NUR ---
PT RECEIVED WITH A SHILEY 8 TRACH ON THE VENT WITH NOTED SETTINGS. PT IS RESPONDS TO STIMULI WHEN SX'D. VENT ALARMS ARE SET AND AUDIBLE WITH AMBU BAG BY BEDSIDE. PRESS TECHNICIAN CUFF PRESSURE NOTED. VENT IS PLUGGED INTO RED OUTLET. HHN TX GIVEN WITH NO ADVERSE REACTIONS. SUCTIONED MODERATE AMOUNT OF WHITE THICK SECRETIONS. NO RESPIRATORY DISTRESS NOTED AT THIS TIME, WILL CONTINUE TO MONITOR.
[2019-01-07 21:10] VITALS: BP 150/76
[2019-01-07] MEDS: SENNOSIDES 8.6 MG TABLET GT SCH (21:23)
[2019-01-08] MEDS: BIOTENE MOISTURIZING MM SCH ×5 (00:20→23:35)
[2019-01-08] MEDS: METOCLOPRAMIDE HCL 10 MG TABLET GT SCH ×5 (00:20→23:34)
[2019-01-08] MEDS: BLOOD SUGAR DIAGNOSTIC 1 EACH STRIP IN SCH ×5 (00:28→23:34)
[2019-01-08] MEDS: INSULIN REGULAR, HUMAN 100 UNIT/ML 3 ML VIAL SQ PRN ×5 (00:30→23:37)
[2019-01-08 00:32] VITALS: BP 150/76
[2019-01-08] MEDS: IPRATROPIUM NEB FS 0.5 MG/2.5 ML AMPUL.NEB NEB SCH ×4 (01:34→20:12)
[2019-01-08 06:00] VITALS: BP 136/81
[2019-01-08 07:51] VITALS: BP 120/52
[2019-01-08] MEDS: HYDROGEN PEROXIDE 480 ML BOTTLE TP SCH ×2 (09:00→21:00)
[2019-01-08] MEDS: DOCUSATE SODIUM LIQ 100 MG/10 ML UDC GT SCH (09:46)
[2019-01-08] MEDS: ACIDOPHILUS/BULGARICUS 1 EACH TAB.CHEW GT SCH ×2 (09:46→20:58)
[2019-01-08] MEDS: METOPROLOL TARTRATE 25 MG TABLET GT SCH ×2 (09:46→20:58)
[2019-01-08] MEDS: ZINC SULFATE 220 MG CAPSULE GT SCH (09:47)
[2019-01-08] MEDS: ACETAMINOPHEN 650 MG/20.3 ML UDC GT SCH ×2 (09:47→20:58)
[2019-01-08] MEDS: ASCORBIC ACID 500 MG TABLET GT SCH (09:47)
[2019-01-08] MEDS: PROSOURCE / PROSTAT (PYXIS) 30 ML UDC GT SCH (09:47)
[2019-01-08] MEDS: MULTIVIT W/MINERALS 1 TAB TABLET GT SCH (09:47)
[2019-01-08] MEDS: INSULIN DETEMIR 100 UNIT/ML CARTRIDGE SQ SCH ×2 (09:48→21:13)
[2019-01-08] MEDS: Z GUARD REMEDY 4 OZ OINT TP SCH ×5 (10:20→21:36)
[2019-01-08] MEDS: COD LIVER OIL/ZINC OXIDE 120 GM TUBE TP SCH ×3 (10:20→21:36)
[2019-01-08] MEDS: DAKINS QUARTER STRENGTH (0.125%) 480 ML BOTTLE TOP SCH ×2 (10:20→21:36)
[2019-01-08] MEDS: VITAMINS A AND D 56.7 GM TUBE TP SCH ×2 (10:20→21:36)
[2019-01-08 12:00] VITALS: BP 148/70
--- NOTE | 2019-01-08 16:07 | NUR ---
PATIENT RECEIVED TRACHED ON [facility] VENT WITH ORDERED SETTINGS. MANAGER SPECIALTY DONE. SPARE TRACH AND AMBU BAG AT HEAD OF BED. ALARMS ARE ON AND AUDIBLE. VENT PLUGGED INTO RED OUTLET. TX GIVEN ORDERED And NO ADVERSE REACTIONS OBSERVED. SUCTIONED MODERATE AMOUNTS OF THICK, PALE YELLOW SECRETIONS. TRACH CARE DONE. AIRWAY SECURED AND PATENT. NO SOB NOTED. SPO2 MAINTAINTED AT >92% Addendum: 01/08/19 at 1609 by RENEE CANO RT Amended: Links added.
[2019-01-08 18:50] VITALS: BP 136/71
--- NOTE | 2019-01-08 18:54 | NUR ---
Seen by AVERY Mata. Notified her that pt already completed her treatment of Eliquis, asked her if a follow-up ultrasound should be done to check for thrombus. AVERY Mata ordered left upper extremity venous duplex. Notified pt's daughter.
[2019-01-08 20:53] VITALS: BP 115/53
[2019-01-08] MEDS: SENNOSIDES 8.6 MG TABLET GT SCH (21:13)
[2019-01-09 00:18] VITALS: BP 121/55
[2019-01-09] MEDS: IPRATROPIUM NEB FS 0.5 MG/2.5 ML AMPUL.NEB NEB SCH ×4 (02:36→20:37)
--- NOTE | 2019-01-09 05:16 | NUR ---
Pt rec'd trached on [facility] vent on AC mode. no resp distress or sob noted. trach patent and secured. alarms are set and audible. vent plugged into red outlet. ambu bag bedside. will continue to monitor. Addendum: 01/09/19 at 0516 by TALA YAO RT Amended: Links added.
[2019-01-09] MEDS: NEPRO 1,000 ML BOTTLE GT PRN (05:56)
[2019-01-09] MEDS: BIOTENE MOISTURIZING MM SCH ×4 (05:56→23:33)
[2019-01-09] MEDS: METOCLOPRAMIDE HCL 10 MG TABLET GT SCH ×4 (05:56→23:33)
[2019-01-09] MEDS: BLOOD SUGAR DIAGNOSTIC 1 EACH STRIP IN SCH ×4 (05:56→23:33)
[2019-01-09] MEDS: INSULIN REGULAR, HUMAN 100 UNIT/ML 3 ML VIAL SQ PRN ×4 (05:57→23:34)
[2019-01-09 06:39] VITALS: BP 136/70
[2019-01-09 07:53] VITALS: BP 140/65
[2019-01-09] MEDS: Z GUARD REMEDY 4 OZ OINT TP SCH ×4 (09:00→21:27)
[2019-01-09] MEDS: ZINC SULFATE 220 MG CAPSULE GT SCH (09:00)
[2019-01-09] MEDS: DOCUSATE SODIUM LIQ 100 MG/10 ML UDC GT SCH (09:00)
[2019-01-09] MEDS: HYDROGEN PEROXIDE 480 ML BOTTLE TP SCH ×2 (09:00→21:00)
[2019-01-09] MEDS: ASCORBIC ACID 500 MG TABLET GT SCH (09:00)
[2019-01-09] MEDS: ACIDOPHILUS/BULGARICUS 1 EACH TAB.CHEW GT SCH ×2 (09:00→21:25)
[2019-01-09] MEDS: MULTIVIT W/MINERALS 1 TAB TABLET GT SCH (09:00)
[2019-01-09] MEDS: PROSOURCE / PROSTAT (PYXIS) 30 ML UDC GT SCH (09:00)
[2019-01-09] MEDS: INSULIN DETEMIR 100 UNIT/ML CARTRIDGE SQ SCH ×2 (09:00→21:26)
[2019-01-09] MEDS: METOPROLOL TARTRATE 25 MG TABLET GT SCH ×2 (09:00→21:25)
[2019-01-09] MEDS: ACETAMINOPHEN 650 MG/20.3 ML UDC GT SCH ×2 (10:00→21:25)
[2019-01-09] MEDS: VITAMINS A AND D 56.7 GM TUBE TP SCH ×2 (10:00→21:27)
[2019-01-09] MEDS: DAKINS QUARTER STRENGTH (0.125%) 480 ML BOTTLE TOP SCH ×2 (10:30→21:26)
[2019-01-09] MEDS: COD LIVER OIL/ZINC OXIDE 120 GM TUBE TP SCH ×2 (10:30)
[2019-01-09 12:00] VITALS: BP 143/66
--- NOTE | 2019-01-09 16:12 | NUR ---
PLAN OF CARE CONFERENCE was held today. Dr. Agarwal and interdisciplinary team discussed the current plan of care in detail. Family could not participate via phone conference. Charge Nurse discussed good blood sugar levels, and GT abdominal wound. Current orders as well as treatments and medications were reviewed. See other discipline's IDT notes for further details.
--- NOTE | 2019-01-09 18:44 | NUR ---
Notified Maria Fernanda Mata of Duplex Venous L upper extremities result showing no sonographic evidence of venous thrombosis in the left cephalic vein. She said to inform attending physician if patient should be on DVT prophylaxis treatment. Notified Dr. Patrick with new order to start Heparin 5000 units, SQ Q 12 hours. Notified mervat Rodriguez of duplex venous result & new order. Appreciated the call.
[2019-01-09 18:46] VITALS: BP 132/60
[2019-01-09 19:54] VITALS: BP 130/76
[2019-01-09] MEDS: HEPARIN SODIUM, PORCINE 5000 UNITS/1 ML VIAL SQ SCH (21:25)
[2019-01-09] MEDS: SENNOSIDES 8.6 MG TABLET GT SCH (21:27)
[2019-01-10 00:20] VITALS: BP 114/54
[2019-01-10] MEDS: IPRATROPIUM NEB FS 0.5 MG/2.5 ML AMPUL.NEB NEB SCH ×4 (01:54→20:07)
--- NOTE | 2019-01-10 03:12 | NUR ---
Pt rec'd trached on [facility] vent on AC mode. no resp distress or sob noted. trach patent and secured. alarms are set and audible. vent plugged into red outlet. ambu bag bedside. will continue to monitor. Addendum: 01/10/19 at 0312 by TALA YAO RT Amended: Links added.
[2019-01-10] MEDS: METOCLOPRAMIDE HCL 10 MG TABLET GT SCH ×3 (05:32→17:33)
[2019-01-10] MEDS: BLOOD SUGAR DIAGNOSTIC 1 EACH STRIP IN SCH ×3 (05:32→17:33)
[2019-01-10] MEDS: BIOTENE MOISTURIZING MM SCH ×3 (05:32→17:34)
[2019-01-10] MEDS: INSULIN REGULAR, HUMAN 100 UNIT/ML 3 ML VIAL SQ PRN ×3 (05:33→17:33)
[2019-01-10] MEDS: NEPRO 1,000 ML BOTTLE GT PRN (06:30)
[2019-01-10 07:07] VITALS: BP 111/62
[2019-01-10 08:02] VITALS: BP 131/60
[2019-01-10] MEDS: HYDROGEN PEROXIDE 480 ML BOTTLE TP SCH ×2 (09:00→21:00)
[2019-01-10] MEDS: DOCUSATE SODIUM LIQ 100 MG/10 ML UDC GT SCH (09:55)
[2019-01-10] MEDS: ZINC SULFATE 220 MG CAPSULE GT SCH (09:56)
[2019-01-10] MEDS: HEPARIN SODIUM, PORCINE 5000 UNITS/1 ML VIAL SQ SCH ×2 (09:56→20:32)
[2019-01-10] MEDS: ASCORBIC ACID 500 MG TABLET GT SCH (09:56)
[2019-01-10] MEDS: PROSOURCE / PROSTAT (PYXIS) 30 ML UDC GT SCH (09:56)
[2019-01-10] MEDS: MULTIVIT W/MINERALS 1 TAB TABLET GT SCH (09:56)
[2019-01-10] MEDS: ACIDOPHILUS/BULGARICUS 1 EACH TAB.CHEW GT SCH ×2 (09:56→20:31)
[2019-01-10] MEDS: METOPROLOL TARTRATE 25 MG TABLET GT SCH ×2 (09:56→20:31)
[2019-01-10] MEDS: ACETAMINOPHEN 650 MG/20.3 ML UDC GT SCH ×2 (09:56→20:32)
[2019-01-10] MEDS: INSULIN DETEMIR 100 UNIT/ML CARTRIDGE SQ SCH ×2 (09:57→21:24)
[2019-01-10] MEDS: VITAMINS A AND D 56.7 GM TUBE TP SCH ×2 (10:30→20:33)
[2019-01-10] MEDS: COD LIVER OIL/ZINC OXIDE 120 GM TUBE TP SCH (10:30)
[2019-01-10] MEDS: Z GUARD REMEDY 4 OZ OINT TP SCH ×4 (10:30→20:33)
[2019-01-10] MEDS: DAKINS QUARTER STRENGTH (0.125%) 480 ML BOTTLE TOP SCH ×2 (10:30→20:33)
[2019-01-10 12:00] VITALS: BP 136/75
[2019-01-10 18:47] VITALS: BP 130/71
[2019-01-10 19:50] VITALS: BP 130/57
[2019-01-10] MEDS: SENNOSIDES 8.6 MG TABLET GT SCH (21:24)
[2019-01-11 00:30] VITALS: BP 131/69
[2019-01-11] MEDS: METOCLOPRAMIDE HCL 10 MG TABLET GT SCH ×4 (00:59→18:05)
[2019-01-11] MEDS: BIOTENE MOISTURIZING MM SCH ×4 (00:59→18:05)
[2019-01-11] MEDS: BLOOD SUGAR DIAGNOSTIC 1 EACH STRIP IN SCH ×4 (00:59→18:05)
[2019-01-11] MEDS: INSULIN REGULAR, HUMAN 100 UNIT/ML 3 ML VIAL SQ PRN ×4 (01:00→18:06)
[2019-01-11] MEDS: IPRATROPIUM NEB FS 0.5 MG/2.5 ML AMPUL.NEB NEB SCH ×4 (01:35→19:41)
[2019-01-11] MEDS: NEPRO 1,000 ML BOTTLE GT PRN (05:54)
[2019-01-11 06:53] VITALS: BP 124/46
[2019-01-11 08:00] VITALS: BP 104/40
[2019-01-11] MEDS: VITAMINS A AND D 56.7 GM TUBE TP SCH ×2 (09:00→21:19)
[2019-01-11] MEDS: Z GUARD REMEDY 4 OZ OINT TP SCH ×4 (09:00→21:19)
[2019-01-11] MEDS: COD LIVER OIL/ZINC OXIDE 120 GM TUBE TP SCH (09:00)
[2019-01-11] MEDS: DAKINS QUARTER STRENGTH (0.125%) 480 ML BOTTLE TOP SCH ×2 (09:00→21:18)
[2019-01-11] MEDS: METOPROLOL TARTRATE 25 MG TABLET GT SCH ×2 (09:19→21:16)
[2019-01-11] MEDS: DOCUSATE SODIUM LIQ 100 MG/10 ML UDC GT SCH (09:19)
[2019-01-11] MEDS: ACIDOPHILUS/BULGARICUS 1 EACH TAB.CHEW GT SCH ×2 (09:19→21:15)
[2019-01-11] MEDS: ZINC SULFATE 220 MG CAPSULE GT SCH (09:20)
[2019-01-11] MEDS: ACETAMINOPHEN 650 MG/20.3 ML UDC GT SCH ×2 (09:20→21:16)
[2019-01-11] MEDS: MULTIVIT W/MINERALS 1 TAB TABLET GT SCH (09:20)
[2019-01-11] MEDS: PROSOURCE / PROSTAT (PYXIS) 30 ML UDC GT SCH (09:20)
[2019-01-11] MEDS: ASCORBIC ACID 500 MG TABLET GT SCH (09:20)
[2019-01-11] MEDS: HEPARIN SODIUM, PORCINE 5000 UNITS/1 ML VIAL SQ SCH ×2 (09:21→21:18)
[2019-01-11] MEDS: HYDROGEN PEROXIDE 480 ML BOTTLE TP SCH ×2 (09:46→21:18)
[2019-01-11] MEDS: INSULIN DETEMIR 100 UNIT/ML CARTRIDGE SQ SCH ×2 (09:58→21:18)
[2019-01-11 15:03] VITALS: BP 118/73
[2019-01-11 18:44] VITALS: BP 128/75
[2019-01-11 19:52] VITALS: BP 118/50
[2019-01-11] MEDS: SENNOSIDES 8.6 MG TABLET GT SCH (21:19)
--- NOTE | 2019-01-11 22:06 | NUR ---
RT NOTES TRACH TUBE IN PLACE, PATENT, AND SECURED WITH TRACH TIE. ALARMS ON AND AUDIBLE. VENT PLUGGED IN TO THE RED OUTLET. BACK UP TRACH AND AMBU BAG BY THE BEDSIDE. NO SIGNS OF ANY DISTRESS AT THIS TIME. Addendum: 01/11/19 at 2209 by ANDRES MARINO RT Amended: Links added.
[2019-01-12 00:13] VITALS: BP 122/70
[2019-01-12] MEDS: BIOTENE MOISTURIZING MM SCH ×5 (00:14→23:01)
[2019-01-12] MEDS: METOCLOPRAMIDE HCL 10 MG TABLET GT SCH ×5 (00:14→23:01)
[2019-01-12] MEDS: BLOOD SUGAR DIAGNOSTIC 1 EACH STRIP IN SCH ×5 (00:14→23:01)
[2019-01-12] MEDS: INSULIN REGULAR, HUMAN 100 UNIT/ML 3 ML VIAL SQ PRN ×5 (00:15→23:02)
[2019-01-12] MEDS: IPRATROPIUM NEB FS 0.5 MG/2.5 ML AMPUL.NEB NEB SCH ×4 (00:38→19:17)
[2019-01-12 06:09] VITALS: BP 129/68
[2019-01-12] MEDS: HYDROGEN PEROXIDE 480 ML BOTTLE TP SCH ×2 (08:44→21:00)
[2019-01-12] MEDS: DOCUSATE SODIUM LIQ 100 MG/10 ML UDC GT SCH (08:48)
[2019-01-12] MEDS: ACIDOPHILUS/BULGARICUS 1 EACH TAB.CHEW GT SCH ×2 (08:48→21:25)
[2019-01-12] MEDS: ASCORBIC ACID 500 MG TABLET GT SCH (08:49)
[2019-01-12] MEDS: ACETAMINOPHEN 650 MG/20.3 ML UDC GT SCH ×2 (08:49→21:25)
[2019-01-12] MEDS: HEPARIN SODIUM, PORCINE 5000 UNITS/1 ML VIAL SQ SCH ×2 (08:49→21:26)
[2019-01-12] MEDS: MULTIVIT W/MINERALS 1 TAB TABLET GT SCH (08:49)
[2019-01-12] MEDS: METOPROLOL TARTRATE 25 MG TABLET GT SCH ×2 (08:49→21:25)
[2019-01-12] MEDS: PROSOURCE / PROSTAT (PYXIS) 30 ML UDC GT SCH (08:49)
[2019-01-12] MEDS: ZINC SULFATE 220 MG CAPSULE GT SCH (08:49)
[2019-01-12] MEDS: INSULIN DETEMIR 100 UNIT/ML CARTRIDGE SQ SCH ×2 (09:21→21:26)
[2019-01-12] MEDS: VITAMINS A AND D 56.7 GM TUBE TP SCH ×2 (09:22→21:27)
[2019-01-12] MEDS: COD LIVER OIL/ZINC OXIDE 120 GM TUBE TP SCH (09:22)
[2019-01-12] MEDS: DAKINS QUARTER STRENGTH (0.125%) 480 ML BOTTLE TOP SCH ×2 (09:22→21:26)
[2019-01-12] MEDS: Z GUARD REMEDY 4 OZ OINT TP SCH ×4 (09:22→21:27)
[2019-01-12 10:03] VITALS: BP 115/70
--- NOTE | 2019-01-12 10:18 | NUR ---
Notified Dr Patrick that pt's right upper arm appears red and swollen, slightly warm to touch. 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 Dr Patrick ordered right upper arm venous duplex. Notified pt's daughter.
[2019-01-12 14:41] VITALS: BP 118/75
--- NOTE | 2019-01-12 16:25 | NUR ---
Called ultrasound to follow up on right upper arm venous duplex. Spoke with Melissa. She said somebody will come to do it and she said to also call extension [phone]. Left message on voicemail.
[2019-01-12 18:32] VITALS: BP 135/69
[2019-01-12 19:49] VITALS: BP 133/66
--- NOTE | 2019-01-12 20:00 | NUR ---
RN NOTES Pt continues with right upper arm slight redness, swelling and warm to touch. Pt appears to be comfortable, no pain noted when arm is touched or moved. Relayed US report to Maria Fernanda Mata with NNO: No evidence of venous thrombosis.
[2019-01-12] MEDS: SENNOSIDES 8.6 MG TABLET GT SCH (21:27)
[2019-01-13 00:49] VITALS: BP 129/64
[2019-01-13] MEDS: IPRATROPIUM NEB FS 0.5 MG/2.5 ML AMPUL.NEB NEB SCH ×4 (01:41→19:16)
[2019-01-13] MEDS: METOCLOPRAMIDE HCL 10 MG TABLET GT SCH ×4 (05:58→23:52)
[2019-01-13] MEDS: BIOTENE MOISTURIZING MM SCH ×4 (05:58→23:52)
[2019-01-13] MEDS: BLOOD SUGAR DIAGNOSTIC 1 EACH STRIP IN SCH ×4 (05:58→23:52)
[2019-01-13] MEDS: INSULIN REGULAR, HUMAN 100 UNIT/ML 3 ML VIAL SQ PRN ×5 (05:59→23:53)
[2019-01-13 06:07] VITALS: BP 136/68
[2019-01-13 07:58] VITALS: BP 144/63
[2019-01-13] MEDS: HYDROGEN PEROXIDE 480 ML BOTTLE TP SCH ×2 (07:58→21:27)
[2019-01-13] MEDS: Z GUARD REMEDY 4 OZ OINT TP SCH ×4 (09:00→21:28)
[2019-01-13] MEDS: DAKINS QUARTER STRENGTH (0.125%) 480 ML BOTTLE TOP SCH ×2 (09:00→21:27)
[2019-01-13] MEDS: VITAMINS A AND D 56.7 GM TUBE TP SCH ×2 (09:00→21:28)
[2019-01-13] MEDS: COD LIVER OIL/ZINC OXIDE 120 GM TUBE TP SCH (09:00)
[2019-01-13] MEDS: ACETAMINOPHEN 650 MG/20.3 ML UDC GT SCH ×2 (09:49→21:26)
[2019-01-13] MEDS: DOCUSATE SODIUM LIQ 100 MG/10 ML UDC GT SCH (09:49)
[2019-01-13] MEDS: ZINC SULFATE 220 MG CAPSULE GT SCH (09:49)
[2019-01-13] MEDS: METOPROLOL TARTRATE 25 MG TABLET GT SCH ×2 (09:49→21:26)
[2019-01-13] MEDS: ACIDOPHILUS/BULGARICUS 1 EACH TAB.CHEW GT SCH ×2 (09:49→21:26)
[2019-01-13] MEDS: ASCORBIC ACID 500 MG TABLET GT SCH (09:49)
[2019-01-13] MEDS: PROSOURCE / PROSTAT (PYXIS) 30 ML UDC GT SCH (09:49)
[2019-01-13] MEDS: MULTIVIT W/MINERALS 1 TAB TABLET GT SCH (09:50)
[2019-01-13] MEDS: HEPARIN SODIUM, PORCINE 5000 UNITS/1 ML VIAL SQ SCH ×2 (09:50→21:26)
[2019-01-13] MEDS: INSULIN DETEMIR 100 UNIT/ML CARTRIDGE SQ SCH ×2 (10:00→21:27)
[2019-01-13 12:00] VITALS: BP 126/84
[2019-01-13 18:00] VITALS: BP 109/50
[2019-01-13 20:57] VITALS: BP 120/57
[2019-01-13] MEDS: SENNOSIDES 8.6 MG TABLET GT SCH (21:28)
[2019-01-14] MEDS: IPRATROPIUM NEB FS 0.5 MG/2.5 ML AMPUL.NEB NEB SCH ×4 (01:14→19:39)
[2019-01-14 02:55] VITALS: BP 112/56
[2019-01-14] MEDS: BIOTENE MOISTURIZING MM SCH ×4 (05:52→23:56)
[2019-01-14] MEDS: METOCLOPRAMIDE HCL 10 MG TABLET GT SCH ×4 (05:52→23:56)
[2019-01-14] MEDS: BLOOD SUGAR DIAGNOSTIC 1 EACH STRIP IN SCH ×4 (05:52→23:56)
[2019-01-14] MEDS: INSULIN REGULAR, HUMAN 100 UNIT/ML 3 ML VIAL SQ PRN ×4 (05:53→23:58)
[2019-01-14 06:07] VITALS: BP 106/55
[2019-01-14] MEDS: HYDROGEN PEROXIDE 480 ML BOTTLE TP SCH ×2 (08:10→21:00)
--- NOTE | 2019-01-14 08:10 | NUR ---
RT RECEIVED PT TRACH'D ON [facility] VENT WITH SETTINGS PER MD. DRY CHARGE PROCESS ATTENDANT DONE. SPARE TRACH AND AMBU BAG AT HEAD OF BED. ALARMS ON AND AUDIBLE. VENT PLUGGED INTO RED OUTLET. TX GIVEN ORDERED. NO ADVERSE REACTIONS OBSERVED. SUCTIONED MOD AMOUNTS OF THICK, PALE YELLOW SECRETIONS. TRACH CARE DONE. NO SIGNS OF DISTRESS NOTED AT THIS TIME. WILL CONTINUE TO MONITOR FOR ANY CHANGES. Addendum: 01/14/19 at 1714 by WILBERT MILLIGAN RT Amended: Links added.
[2019-01-14 08:16] VITALS: BP 141/61
[2019-01-14] MEDS: PROSOURCE / PROSTAT (PYXIS) 30 ML UDC GT SCH (08:57)
[2019-01-14] MEDS: MULTIVIT W/MINERALS 1 TAB TABLET GT SCH (08:57)
[2019-01-14] MEDS: METOPROLOL TARTRATE 25 MG TABLET GT SCH ×2 (08:57→21:13)
[2019-01-14] MEDS: ACETAMINOPHEN 650 MG/20.3 ML UDC GT SCH ×2 (08:57→21:13)
[2019-01-14] MEDS: ACIDOPHILUS/BULGARICUS 1 EACH TAB.CHEW GT SCH ×2 (08:58→21:12)
[2019-01-14] MEDS: DOCUSATE SODIUM LIQ 100 MG/10 ML UDC GT SCH (08:58)
[2019-01-14] MEDS: ASCORBIC ACID 500 MG TABLET GT SCH (08:59)
[2019-01-14] MEDS: ZINC SULFATE 220 MG CAPSULE GT SCH (08:59)
[2019-01-14] MEDS: VITAMINS A AND D 56.7 GM TUBE TP SCH ×2 (09:00→21:43)
[2019-01-14] MEDS: Z GUARD REMEDY 4 OZ OINT TP SCH ×4 (09:00→21:43)
[2019-01-14] MEDS: DAKINS QUARTER STRENGTH (0.125%) 480 ML BOTTLE TOP SCH ×2 (09:00→21:43)
[2019-01-14] MEDS: COD LIVER OIL/ZINC OXIDE 120 GM TUBE TP SCH (09:00)
[2019-01-14] MEDS: HEPARIN SODIUM, PORCINE 5000 UNITS/1 ML VIAL SQ SCH ×2 (09:00→21:14)
[2019-01-14] MEDS: INSULIN DETEMIR 100 UNIT/ML CARTRIDGE SQ SCH ×2 (09:11→21:52)
[2019-01-14 12:00] VITALS: BP 132/58
[2019-01-14 19:00] VITALS: BP 134/61
--- NOTE | 2019-01-14 19:39 | NUR ---
RT NOTE PT RECEIVED TRACHED ON [facility] VENT ON CHARTED SETTINGS. NO SIGNS OF RESP DISTRESS/SOB NOTED AT THIS TIME. AIRWAY PATENT AND SECURED. AIRPLANE PILOT CHIEF DONE. PT SUCTIONED. HHN TX GIVEN. ALARMS SET AND AUDIBLE. AMBUBAG AND SPARE TRACH AT HEAD OF BED. WILL CONT TO MONITOR. Addendum: 01/15/19 at 0310 by AMANDO RESENDEZ RT Amended: Links added.
[2019-01-14 19:53] VITALS: BP 121/52
[2019-01-14] MEDS: SENNOSIDES 8.6 MG TABLET GT SCH (21:14)
[2019-01-15 00:30] VITALS: BP 142/64
[2019-01-15] MEDS: IPRATROPIUM NEB FS 0.5 MG/2.5 ML AMPUL.NEB NEB SCH ×4 (01:28→20:29)
[2019-01-15] MEDS: BIOTENE MOISTURIZING MM SCH ×4 (05:44→23:27)
[2019-01-15] MEDS: NEPRO 1,000 ML BOTTLE GT PRN (05:44)
[2019-01-15] MEDS: METOCLOPRAMIDE HCL 10 MG TABLET GT SCH ×4 (05:44→23:27)
[2019-01-15] MEDS: BLOOD SUGAR DIAGNOSTIC 1 EACH STRIP IN SCH ×4 (05:44→23:27)
[2019-01-15] MEDS: INSULIN REGULAR, HUMAN 100 UNIT/ML 3 ML VIAL SQ PRN ×4 (05:45→23:28)
[2019-01-15 06:31] VITALS: BP 115/50
[2019-01-15 07:59] VITALS: BP 122/54
[2019-01-15] MEDS: COD LIVER OIL/ZINC OXIDE 120 GM TUBE TP SCH (09:00)
[2019-01-15] MEDS: DAKINS QUARTER STRENGTH (0.125%) 480 ML BOTTLE TOP SCH ×2 (09:00→20:32)
[2019-01-15] MEDS: DOCUSATE SODIUM LIQ 100 MG/10 ML UDC GT SCH (09:03)
[2019-01-15] MEDS: MULTIVIT W/MINERALS 1 TAB TABLET GT SCH (09:04)
[2019-01-15] MEDS: ASCORBIC ACID 500 MG TABLET GT SCH (09:04)
[2019-01-15] MEDS: METOPROLOL TARTRATE 25 MG TABLET GT SCH ×2 (09:04→20:32)
[2019-01-15] MEDS: PROSOURCE / PROSTAT (PYXIS) 30 ML UDC GT SCH (09:04)
[2019-01-15] MEDS: ACIDOPHILUS/BULGARICUS 1 EACH TAB.CHEW GT SCH ×2 (09:04→20:31)
[2019-01-15] MEDS: ACETAMINOPHEN 650 MG/20.3 ML UDC GT SCH ×2 (09:04→20:32)
[2019-01-15] MEDS: ZINC SULFATE 220 MG CAPSULE GT SCH (09:04)
[2019-01-15] MEDS: VITAMINS A AND D 56.7 GM TUBE TP SCH ×2 (09:04→20:33)
[2019-01-15] MEDS: Z GUARD REMEDY 4 OZ OINT TP SCH ×4 (09:04→20:33)
[2019-01-15] MEDS: HEPARIN SODIUM, PORCINE 5000 UNITS/1 ML VIAL SQ SCH ×2 (09:06→20:32)
[2019-01-15] MEDS: INSULIN DETEMIR 100 UNIT/ML CARTRIDGE SQ SCH ×2 (09:07→21:13)
[2019-01-15] MEDS: HYDROGEN PEROXIDE 480 ML BOTTLE TP SCH ×2 (09:28→20:32)
[2019-01-15 12:00] VITALS: BP 126/58
[2019-01-15 18:00] VITALS: BP 127/60
[2019-01-15 20:57] VITALS: BP 107/84
[2019-01-15] MEDS: SENNOSIDES 8.6 MG TABLET GT SCH (21:13)
--- NOTE | 2019-01-15 23:32 | NUR ---
Pt rec'd trached on [facility] vent on AC mode. No resp distress or sob noted. Trach is patent and secured. Sx'd for mod amt of thick pale yellow secretions. Alarms are set and audible. Vent plugged into red outlet. Ambu bag bedside. Will continue to monitor. Addendum: 01/15/19 at 2333 by TALA YAO RT Amended: Links added.
[2019-01-16 01:29] VITALS: BP 106/52
[2019-01-16] MEDS: IPRATROPIUM NEB FS 0.5 MG/2.5 ML AMPUL.NEB NEB SCH ×4 (01:44→19:42)
[2019-01-16] MEDS: METOCLOPRAMIDE HCL 10 MG TABLET GT SCH ×3 (05:23→17:30)
[2019-01-16] MEDS: NEPRO 1,000 ML BOTTLE GT PRN (05:23)
[2019-01-16] MEDS: BLOOD SUGAR DIAGNOSTIC 1 EACH STRIP IN SCH ×3 (05:23→18:19)
[2019-01-16] MEDS: BIOTENE MOISTURIZING MM SCH ×3 (05:23→18:19)
[2019-01-16] MEDS: INSULIN REGULAR, HUMAN 100 UNIT/ML 3 ML VIAL SQ PRN ×3 (05:24→18:20)
[2019-01-16 06:22] VITALS: BP 100/59
[2019-01-16 08:03] VITALS: BP 110/48
[2019-01-16] MEDS: COD LIVER OIL/ZINC OXIDE 120 GM TUBE TP SCH (09:00)
[2019-01-16] MEDS: METOPROLOL TARTRATE 25 MG TABLET GT SCH ×2 (09:00→20:46)
[2019-01-16] MEDS: VITAMINS A AND D 56.7 GM TUBE TP SCH ×2 (09:00→20:48)
[2019-01-16] MEDS: HYDROGEN PEROXIDE 480 ML BOTTLE TP SCH ×2 (09:00→20:48)
[2019-01-16] MEDS: Z GUARD REMEDY 4 OZ OINT TP SCH ×4 (09:00→20:48)
[2019-01-16] MEDS: DAKINS QUARTER STRENGTH (0.125%) 480 ML BOTTLE TOP SCH ×2 (09:00→20:48)
[2019-01-16] MEDS: PROSOURCE / PROSTAT (PYXIS) 30 ML UDC GT SCH (09:16)
[2019-01-16] MEDS: ASCORBIC ACID 500 MG TABLET GT SCH (09:16)
[2019-01-16] MEDS: ACIDOPHILUS/BULGARICUS 1 EACH TAB.CHEW GT SCH ×2 (09:16→20:46)
[2019-01-16] MEDS: DOCUSATE SODIUM LIQ 100 MG/10 ML UDC GT SCH (09:16)
[2019-01-16] MEDS: MULTIVIT W/MINERALS 1 TAB TABLET GT SCH (09:16)
[2019-01-16] MEDS: ACETAMINOPHEN 650 MG/20.3 ML UDC GT SCH ×2 (09:16→20:47)
[2019-01-16] MEDS: ZINC SULFATE 220 MG CAPSULE GT SCH (09:17)
[2019-01-16] MEDS: HEPARIN SODIUM, PORCINE 5000 UNITS/1 ML VIAL SQ SCH ×2 (09:17→20:47)
[2019-01-16] MEDS: INSULIN DETEMIR 100 UNIT/ML CARTRIDGE SQ SCH ×2 (10:09→20:48)
[2019-01-16 12:00] VITALS: BP 127/54
[2019-01-16 18:53] VITALS: BP 137/65
[2019-01-16 20:45] VITALS: BP 93/70
[2019-01-16] MEDS: MAGNESIUM HYDROXIDE 30 ML UDC GT PRN (20:48)
[2019-01-16] MEDS: SENNOSIDES 8.6 MG TABLET GT SCH (21:14)
[2019-01-17] VITALS (7 sets, daily range): BP systolic 117–130; BP diastolic 50–88
[2019-01-17] MEDS: METOCLOPRAMIDE HCL 10 MG TABLET GT SCH ×5 (00:05→23:11)
[2019-01-17] MEDS: BIOTENE MOISTURIZING MM SCH ×5 (00:05→23:11)
[2019-01-17] MEDS: BLOOD SUGAR DIAGNOSTIC 1 EACH STRIP IN SCH ×5 (00:05→23:11)
[2019-01-17] MEDS: INSULIN REGULAR, HUMAN 100 UNIT/ML 3 ML VIAL SQ PRN ×5 (00:06→23:12)
[2019-01-17] MEDS: IPRATROPIUM NEB FS 0.5 MG/2.5 ML AMPUL.NEB NEB SCH ×4 (00:53→19:17)
[2019-01-17] MEDS: NEPRO 1,000 ML BOTTLE GT PRN (05:22)
[2019-01-17] MEDS: BISACODYL SUPP (10 MG) 10 MG/SUPP.RECT SUPP.RECT RC PRN (05:31)
[2019-01-17] MEDS: DAKINS QUARTER STRENGTH (0.125%) 480 ML BOTTLE TOP SCH ×2 (09:00→20:30)
[2019-01-17] MEDS: HYDROGEN PEROXIDE 480 ML BOTTLE TP SCH ×2 (09:00→21:00)
[2019-01-17] MEDS: VITAMINS A AND D 56.7 GM TUBE TP SCH ×2 (09:00→20:30)
[2019-01-17] MEDS: Z GUARD REMEDY 4 OZ OINT TP SCH ×4 (09:00→20:30)
[2019-01-17] MEDS: COD LIVER OIL/ZINC OXIDE 120 GM TUBE TP SCH (09:00)
[2019-01-17] MEDS: ACIDOPHILUS/BULGARICUS 1 EACH TAB.CHEW GT SCH ×2 (09:38→20:29)
[2019-01-17] MEDS: ASCORBIC ACID 500 MG TABLET GT SCH (09:38)
[2019-01-17] MEDS: ZINC SULFATE 220 MG CAPSULE GT SCH (09:38)
[2019-01-17] MEDS: PROSOURCE / PROSTAT (PYXIS) 30 ML UDC GT SCH (09:38)
[2019-01-17] MEDS: ACETAMINOPHEN 650 MG/20.3 ML UDC GT SCH ×2 (09:38→20:29)
[2019-01-17] MEDS: DOCUSATE SODIUM LIQ 100 MG/10 ML UDC GT SCH (09:38)
[2019-01-17] MEDS: HEPARIN SODIUM, PORCINE 5000 UNITS/1 ML VIAL SQ SCH ×2 (09:39→20:30)
[2019-01-17] MEDS: MULTIVIT W/MINERALS 1 TAB TABLET GT SCH (09:45)
[2019-01-17] MEDS: METOPROLOL TARTRATE 25 MG TABLET GT SCH ×2 (09:46→20:29)
[2019-01-17] MEDS: INSULIN DETEMIR 100 UNIT/ML CARTRIDGE SQ SCH ×2 (09:53→20:38)
--- NOTE | 2019-01-17 12:30 | NUR ---
pt rec'd trached on [facility] vent on AC mode. No resp distress or sob noted. sx'd for thick mod amt of pale yellow secretions. trach is patent and secured. alarms are set and audible. vent plugged into red outlet. ambu bag bedside. will continue to monitor closely. Addendum: 01/17/19 at 1232 by TALA YAO RT Amended: Links added.
--- NOTE | 2019-01-17 16:00 | NUR ---
Reported sputum culture result to Dr. Aguirre,ID. This was ordered to clear patient for isolation. Result shows slight growth Pseudomonas Aeruginosa, since patient is asymptomatic he said that this is not MDRO and isolation can be discontinue. Endorsed to have housekeeping do a terminal cleaning of the room in AM and give patient a shower in the shower room before discontinuing the isolation per protocol.
[2019-01-17] MEDS: SENNOSIDES 8.6 MG TABLET GT SCH (21:01)
[2019-01-18 00:05] VITALS: BP 109/57
[2019-01-18] MEDS: IPRATROPIUM NEB FS 0.5 MG/2.5 ML AMPUL.NEB NEB SCH ×4 (00:50→19:38)
[2019-01-18] MEDS: BIOTENE MOISTURIZING MM SCH ×4 (05:36→23:55)
[2019-01-18] MEDS: METOCLOPRAMIDE HCL 10 MG TABLET GT SCH ×4 (05:36→23:55)
[2019-01-18] MEDS: BLOOD SUGAR DIAGNOSTIC 1 EACH STRIP IN SCH ×4 (05:36→23:55)
[2019-01-18] MEDS: INSULIN REGULAR, HUMAN 100 UNIT/ML 3 ML VIAL SQ PRN ×4 (05:37→23:56)
[2019-01-18] MEDS: NEPRO 1,000 ML BOTTLE GT PRN (05:38)
[2019-01-18 06:13] VITALS: BP 116/60
--- NOTE | 2019-01-18 07:27 | NUR ---
RT NOTE PT RECEIVED TRACHED ON [facility] VENT ON CHARTED SETTINGS. NO SIGNS OF RESP DISTRESS/SOB NOTED AT THIS TIME. AIRWAY PATENT AND SECURED. PULP HOUSE SUPERVISOR DONE. PT SUCTIONED. HHN TX GIVEN. NO ADVERSE REACTIONS NOTED. ALARMS SET AND AUDIBLE. AMBUBAG AND SPARE TRACH AT BEDSIDE. VENT CONNECTED TO RED OUTLET. WILL CONT TO MONITOR. Addendum: 01/18/19 at 0841 by AMANDO RESENDEZ RT Amended: Links added.
[2019-01-18 07:48] VITALS: BP 142/76
[2019-01-18] MEDS: DAKINS QUARTER STRENGTH (0.125%) 480 ML BOTTLE TOP SCH ×2 (09:00→21:19)
[2019-01-18] MEDS: Z GUARD REMEDY 4 OZ OINT TP SCH ×4 (09:00→21:19)
[2019-01-18] MEDS: COD LIVER OIL/ZINC OXIDE 120 GM TUBE TP SCH (09:00)
[2019-01-18] MEDS: VITAMINS A AND D 56.7 GM TUBE TP SCH ×2 (09:00→21:19)
[2019-01-18] MEDS: HYDROGEN PEROXIDE 480 ML BOTTLE TP SCH ×2 (09:05→21:08)
[2019-01-18] MEDS: ACIDOPHILUS/BULGARICUS 1 EACH TAB.CHEW GT SCH ×2 (09:13→21:17)
[2019-01-18] MEDS: DOCUSATE SODIUM LIQ 100 MG/10 ML UDC GT SCH (09:13)
[2019-01-18] MEDS: PROSOURCE / PROSTAT (PYXIS) 30 ML UDC GT SCH (09:15)
[2019-01-18] MEDS: METOPROLOL TARTRATE 25 MG TABLET GT SCH ×2 (09:15→21:17)
[2019-01-18] MEDS: ACETAMINOPHEN 650 MG/20.3 ML UDC GT SCH ×2 (09:16→21:17)
[2019-01-18] MEDS: ZINC SULFATE 220 MG CAPSULE GT SCH (09:17)
[2019-01-18] MEDS: ASCORBIC ACID 500 MG TABLET GT SCH (09:17)
[2019-01-18] MEDS: MULTIVIT W/MINERALS 1 TAB TABLET GT SCH (09:27)
[2019-01-18] MEDS: HEPARIN SODIUM, PORCINE 5000 UNITS/1 ML VIAL SQ SCH ×2 (09:32→21:18)
[2019-01-18] MEDS: INSULIN DETEMIR 100 UNIT/ML CARTRIDGE SQ SCH ×2 (09:35→21:18)
[2019-01-18 12:00] VITALS: BP 127/75
[2019-01-18 18:43] VITALS: BP 126/74
[2019-01-18 19:47] VITALS: BP 119/59
[2019-01-18] MEDS: SENNOSIDES 8.6 MG TABLET GT SCH (21:19)
[2019-01-19] VITALS: BP 134/54
[2019-01-19] MEDS: IPRATROPIUM NEB FS 0.5 MG/2.5 ML AMPUL.NEB NEB SCH ×4 (01:37→20:00)
--- NOTE | 2019-01-19 03:47 | NUR ---
RT PATIENT WAS RECEIVED ON CONTINUOUS VENT SUPPORT ON NOTED VENT SETTINGS.ALARMS ARE SET AND AUDIBLE.AIRWAY PATENT AND SECURED. PATIENT STABLE AND TOLERATED CURRENT VENT SETTINGS.WILL CONTINUE TO MONITOR. Addendum: 01/19/19 at 0347 by NYA RICHARDS RT Amended: Links added.
[2019-01-19] MEDS: BLOOD SUGAR DIAGNOSTIC 1 EACH STRIP IN SCH ×4 (05:24→23:49)
[2019-01-19] MEDS: BIOTENE MOISTURIZING MM SCH ×4 (05:24→23:49)
[2019-01-19] MEDS: METOCLOPRAMIDE HCL 10 MG TABLET GT SCH ×4 (05:24→23:49)
[2019-01-19] MEDS: INSULIN REGULAR, HUMAN 100 UNIT/ML 3 ML VIAL SQ PRN ×4 (05:25→23:50)
[2019-01-19 06:00] VITALS: BP 137/62
[2019-01-19] MEDS: NEPRO 1,000 ML BOTTLE GT PRN (06:52)
[2019-01-19 08:11] VITALS: BP 123/74
[2019-01-19] MEDS: ACIDOPHILUS/BULGARICUS 1 EACH TAB.CHEW GT SCH ×2 (09:00→21:20)
[2019-01-19] MEDS: METOPROLOL TARTRATE 25 MG TABLET GT SCH ×2 (09:00→21:21)
[2019-01-19] MEDS: Z GUARD REMEDY 4 OZ OINT TP SCH ×4 (09:00→21:22)
[2019-01-19] MEDS: VITAMINS A AND D 56.7 GM TUBE TP SCH ×2 (09:00→21:22)
[2019-01-19] MEDS: HEPARIN SODIUM, PORCINE 5000 UNITS/1 ML VIAL SQ SCH ×2 (09:00→21:21)
[2019-01-19] MEDS: MULTIVIT W/MINERALS 1 TAB TABLET GT SCH (09:00)
[2019-01-19] MEDS: DAKINS QUARTER STRENGTH (0.125%) 480 ML BOTTLE TOP SCH ×2 (09:00→21:22)
[2019-01-19] MEDS: ZINC SULFATE 220 MG CAPSULE GT SCH (09:00)
[2019-01-19] MEDS: INSULIN DETEMIR 100 UNIT/ML CARTRIDGE SQ SCH ×2 (09:00→21:21)
[2019-01-19] MEDS: HYDROGEN PEROXIDE 480 ML BOTTLE TP SCH ×2 (09:00→21:22)
[2019-01-19] MEDS: ASCORBIC ACID 500 MG TABLET GT SCH (09:00)
[2019-01-19] MEDS: COD LIVER OIL/ZINC OXIDE 120 GM TUBE TP SCH (09:00)
[2019-01-19] MEDS: PROSOURCE / PROSTAT (PYXIS) 30 ML UDC GT SCH (09:00)
[2019-01-19] MEDS: ACETAMINOPHEN 650 MG/20.3 ML UDC GT SCH ×2 (09:00→21:21)
[2019-01-19] MEDS: DOCUSATE SODIUM LIQ 100 MG/10 ML UDC GT SCH (09:00)
--- NOTE | 2019-01-19 17:54 | NUR ---
RT NOTE PT REMAINS MECHANICALLY VENTILATED VIA CUFFED TRACHEOSTOMY TUBE. CUFF INFLATED. TRACH TUBE MIDLINE AND SECURE. VENTILATOR SETTINGS PRESCRIBED. ALARMS SET PER PROTOCOL AND AUDIBLE. VENT PLUGGED IN TO RED OUTLET. AMBU BAG AT BED SIDE. NO DISTRESS NOTED. Addendum: 01/19/19 at 1754 by JYOTHI RICHARDS RT Amended: Links added.
[2019-01-19 19:22] VITALS: BP 124/63
[2019-01-19 19:49] VITALS: BP 118/59
[2019-01-19] MEDS: SENNOSIDES 8.6 MG TABLET GT SCH (21:22)
[2019-01-20 00:41] VITALS: BP 129/67
[2019-01-20] MEDS: IPRATROPIUM NEB FS 0.5 MG/2.5 ML AMPUL.NEB NEB SCH ×4 (02:13→19:14)
--- NOTE | 2019-01-20 04:54 | NUR ---
pt rec'd trached on [facility] vent on AC mode. no resp distress or sob noted. trach is patent and secured. sx'd for mod amt of pale yellow secretions. alarms are set and audible. vent plugged into red outlet. ambu bag bedside. will continue to monitor. Addendum: 01/20/19 at 0454 by TALA YAO RT Amended: Links added.
[2019-01-20] MEDS: METOCLOPRAMIDE HCL 10 MG TABLET GT SCH ×4 (05:44→23:58)
[2019-01-20] MEDS: BIOTENE MOISTURIZING MM SCH ×4 (05:44→23:58)
[2019-01-20] MEDS: BLOOD SUGAR DIAGNOSTIC 1 EACH STRIP IN SCH ×4 (05:44→23:58)
[2019-01-20] MEDS: INSULIN REGULAR, HUMAN 100 UNIT/ML 3 ML VIAL SQ PRN ×4 (05:45→23:59)
[2019-01-20 06:11] VITALS: BP 130/69
[2019-01-20 07:49] VITALS: BP 127/57
--- NOTE | 2019-01-20 08:28 | NUR ---
SW called and spoke with pt.s daughter, Jennifer Araiza [phone] regarding family support group taking place from 11am-12pm. Per Jennifer, she will be in attendance.
[2019-01-20] MEDS: DOCUSATE SODIUM LIQ 100 MG/10 ML UDC GT SCH (09:00)
[2019-01-20] MEDS: ACIDOPHILUS/BULGARICUS 1 EACH TAB.CHEW GT SCH ×2 (09:00→21:00)
[2019-01-20] MEDS: PROSOURCE / PROSTAT (PYXIS) 30 ML UDC GT SCH (09:00)
[2019-01-20] MEDS: COD LIVER OIL/ZINC OXIDE 120 GM TUBE TP SCH (09:00)
[2019-01-20] MEDS: ZINC SULFATE 220 MG CAPSULE GT SCH (09:00)
[2019-01-20] MEDS: Z GUARD REMEDY 4 OZ OINT TP SCH ×4 (09:00→21:02)
[2019-01-20] MEDS: MULTIVIT W/MINERALS 1 TAB TABLET GT SCH (09:00)
[2019-01-20] MEDS: ACETAMINOPHEN 650 MG/20.3 ML UDC GT SCH ×2 (09:00→21:00)
[2019-01-20] MEDS: ASCORBIC ACID 500 MG TABLET GT SCH (09:00)
[2019-01-20] MEDS: INSULIN DETEMIR 100 UNIT/ML CARTRIDGE SQ SCH ×2 (09:00→21:02)
[2019-01-20] MEDS: METOPROLOL TARTRATE 25 MG TABLET GT SCH ×2 (09:00→21:00)
[2019-01-20] MEDS: DAKINS QUARTER STRENGTH (0.125%) 480 ML BOTTLE TOP SCH ×2 (09:00→21:02)
[2019-01-20] MEDS: VITAMINS A AND D 56.7 GM TUBE TP SCH ×2 (09:00→21:02)
[2019-01-20] MEDS: HEPARIN SODIUM, PORCINE 5000 UNITS/1 ML VIAL SQ SCH ×2 (09:00→21:01)
[2019-01-20] MEDS: HYDROGEN PEROXIDE 480 ML BOTTLE TP SCH ×2 (09:24→21:02)
--- NOTE | 2019-01-20 09:35 | NUR ---
RT NOTE PT IS CURRENTLY MECHANICALLY VENTILATED VIA CUFFED TRACHEOSTOMY TUBE. CUFF INFLATED. TRACH TUBE MIDLINE AND SECURE. VENTILATOR SETTINGS PRESCRIBED. ALARMS SET PER PROTOCOL AND AUDIBLE. VENT PLUGGED IN TO RED OUTLET. AMBU BAG AT BED SIDE. NO DISTRESS NOTED. Addendum: 01/20/19 at 0936 by JYOTHI RICHARDS RT Amended: Links added.
[2019-01-20 15:42] VITALS: BP 128/60
[2019-01-20] MEDS: NEPRO 1,000 ML BOTTLE GT PRN (16:03)
[2019-01-20 18:10] VITALS: BP 98/55
[2019-01-20 20:48] VITALS: BP 111/55
[2019-01-20] MEDS: SENNOSIDES 8.6 MG TABLET GT SCH (21:02)
[2019-01-21 00:03] VITALS: BP 116/58
[2019-01-21] MEDS: IPRATROPIUM NEB FS 0.5 MG/2.5 ML AMPUL.NEB NEB SCH ×4 (01:57→19:50)
[2019-01-21] MEDS: METOCLOPRAMIDE HCL 10 MG TABLET GT SCH ×4 (05:38→23:44)
[2019-01-21] MEDS: BIOTENE MOISTURIZING MM SCH ×4 (05:38→23:44)
[2019-01-21] MEDS: BLOOD SUGAR DIAGNOSTIC 1 EACH STRIP IN SCH ×4 (05:38→23:44)
[2019-01-21] MEDS: INSULIN REGULAR, HUMAN 100 UNIT/ML 3 ML VIAL SQ PRN ×4 (05:39→23:47)
[2019-01-21 06:21] VITALS: BP 122/59
[2019-01-21 07:53] VITALS: BP 100/52
[2019-01-21] MEDS: METOPROLOL TARTRATE 25 MG TABLET GT SCH ×2 (09:00→21:07)
[2019-01-21] MEDS: HEPARIN SODIUM, PORCINE 5000 UNITS/1 ML VIAL SQ SCH ×2 (09:26→21:07)
[2019-01-21] MEDS: DOCUSATE SODIUM LIQ 100 MG/10 ML UDC GT SCH (09:31)
[2019-01-21] MEDS: ACIDOPHILUS/BULGARICUS 1 EACH TAB.CHEW GT SCH ×2 (09:32→21:01)
[2019-01-21] MEDS: PROSOURCE / PROSTAT (PYXIS) 30 ML UDC GT SCH (09:33)
[2019-01-21] MEDS: ASCORBIC ACID 500 MG TABLET GT SCH (09:34)
[2019-01-21] MEDS: ACETAMINOPHEN 650 MG/20.3 ML UDC GT SCH ×2 (09:34→21:07)
[2019-01-21] MEDS: ZINC SULFATE 220 MG CAPSULE GT SCH (09:34)
[2019-01-21] MEDS: DAKINS QUARTER STRENGTH (0.125%) 480 ML BOTTLE TOP SCH ×2 (09:35→21:12)
[2019-01-21] MEDS: VITAMINS A AND D 56.7 GM TUBE TP SCH ×2 (09:35→21:12)
[2019-01-21] MEDS: COD LIVER OIL/ZINC OXIDE 120 GM TUBE TP SCH (09:35)
[2019-01-21] MEDS: Z GUARD REMEDY 4 OZ OINT TP SCH ×4 (09:35→21:12)
[2019-01-21] MEDS: INSULIN DETEMIR 100 UNIT/ML CARTRIDGE SQ SCH ×3 (09:40→21:12)
[2019-01-21] MEDS: MULTIVIT W/MINERALS 1 TAB TABLET GT SCH (09:41)
[2019-01-21] MEDS: HYDROGEN PEROXIDE 480 ML BOTTLE TP SCH ×2 (09:43→21:00)
--- NOTE | 2019-01-21 11:34 | NUR ---
Resident's daughter Jennifer visited, asked if she would like her mother to receive flu vaccine. She said that she does not want her mother to get the vaccine as she gets sick with the vaccine.
[2019-01-21 12:00] VITALS: BP 106/54
[2019-01-21 18:00] VITALS: BP 110/57
[2019-01-21 19:43] VITALS: BP 118/67
[2019-01-21] MEDS: SENNOSIDES 8.6 MG TABLET GT SCH (21:12)
[2019-01-21] MEDS: NEPRO 1,000 ML BOTTLE GT PRN (23:44)
--- NOTE | 2019-01-21 23:48 | NUR ---
pt rec'd trached on [facility] vent on AC mode. no resp distress or sob noted. trach is patent and secured. sx'd for small amt of pale yellow secretions. alarms are set and audible. vent plugged into red outlet. ambu bag bedside. will continue to monitor. Addendum: 01/21/19 at 2348 by TALA YAO RT Amended: Links added.
[2019-01-22 00:20] VITALS: BP 108/57
[2019-01-22] MEDS: IPRATROPIUM NEB FS 0.5 MG/2.5 ML AMPUL.NEB NEB SCH ×4 (01:51→19:54)
[2019-01-22] MEDS: BIOTENE MOISTURIZING MM SCH ×4 (05:24→23:22)
[2019-01-22] MEDS: METOCLOPRAMIDE HCL 10 MG TABLET GT SCH ×4 (05:24→23:22)
[2019-01-22] MEDS: BLOOD SUGAR DIAGNOSTIC 1 EACH STRIP IN SCH ×4 (05:32→23:22)
[2019-01-22] MEDS: INSULIN REGULAR, HUMAN 100 UNIT/ML 3 ML VIAL SQ PRN ×4 (05:36→23:23)
[2019-01-22 06:48] VITALS: BP 106/51
[2019-01-22 07:41] VITALS: BP 95/51
--- NOTE | 2019-01-22 08:24 | NUR ---
RT NOTE pt rec'd trached on [facility] vent on AC mode. no resp distress or sob noted. trach is patent and secured. sx'd for small amt of pale yellow secretions. alarms are set and audible. vent plugged into red outlet. ambu bag bedside. will continue to monitor.
[2019-01-22] MEDS: METOPROLOL TARTRATE 25 MG TABLET GT SCH ×2 (09:00→20:36)
[2019-01-22] MEDS: HYDROGEN PEROXIDE 480 ML BOTTLE TP SCH ×2 (09:00→21:57)
[2019-01-22] MEDS: ZINC SULFATE 220 MG CAPSULE GT SCH (09:55)
[2019-01-22] MEDS: MULTIVIT W/MINERALS 1 TAB TABLET GT SCH (09:55)
[2019-01-22] MEDS: ASCORBIC ACID 500 MG TABLET GT SCH (09:55)
[2019-01-22] MEDS: PROSOURCE / PROSTAT (PYXIS) 30 ML UDC GT SCH (09:55)
[2019-01-22] MEDS: ACIDOPHILUS/BULGARICUS 1 EACH TAB.CHEW GT SCH ×2 (09:55→20:35)
[2019-01-22] MEDS: DOCUSATE SODIUM LIQ 100 MG/10 ML UDC GT SCH (09:55)
[2019-01-22] MEDS: ACETAMINOPHEN 650 MG/20.3 ML UDC GT SCH ×2 (09:55→20:36)
[2019-01-22] MEDS: HEPARIN SODIUM, PORCINE 5000 UNITS/1 ML VIAL SQ SCH ×2 (09:56→20:37)
[2019-01-22] MEDS: INSULIN DETEMIR 100 UNIT/ML CARTRIDGE SQ SCH ×2 (09:57→21:27)
[2019-01-22] MEDS: COD LIVER OIL/ZINC OXIDE 120 GM TUBE TP SCH (10:30)
[2019-01-22] MEDS: DAKINS QUARTER STRENGTH (0.125%) 480 ML BOTTLE TOP SCH ×2 (10:30→21:27)
[2019-01-22] MEDS: VITAMINS A AND D 56.7 GM TUBE TP SCH ×2 (10:30→21:27)
[2019-01-22] MEDS: Z GUARD REMEDY 4 OZ OINT TP SCH ×4 (10:30→21:27)
--- NOTE | 2019-01-22 11:30 | NUR ---
Notified Dr. Agarwal of low grade temperature 99.0, 95/51, 99%, 90, 16, NNO given at this time.
[2019-01-22 12:00] VITALS: BP 127/65
--- NOTE | 2019-01-22 15:12 | NUR ---
Dr. Aguirre, ID passed by and made aware that patient has low grade temp this AM of 99.0, he said he will review.
--- NOTE | 2019-01-22 16:24 | NUR ---
January Family Support Group: Per Charge NurseDeclan the patient's daughter Jennifer arrived for the January Family Support Group and was not able to find the room where the group was being held. SW waited by the nurses station to gather family members and walk them over to the room. In the future, family may ask to be guided to the room by staff, as the room is hard to find. SW will invite family to the February Family Support Group.
[2019-01-22 18:00] VITALS: BP 106/58
--- NOTE | 2019-01-22 19:25 | NUR ---
Seen and examined by AVERY ABAD.
--- NOTE | 2019-01-22 19:54 | NUR ---
PT RECEIVED WITH A SHILEY 8 TRACH ON THE VENT WITH NOTED SETTINGS. PT RESPONDS TO STIMULI WHEN SX'D. VENT ALARMS ARE SET AND AUDIBLE WITH AMBU BAG BY BEDSIDE. WARDROBE MISTRESS CUFF PRESSURE NOTED. VENT PLUGGED INTO RED OUTLET. HHN TX GIVEN WITH NO ADVERSE REACTIONS. SX DONE PRN. NO RESPIRATORY DISTRESS NOTED AT THIS TIME, WILL CONTINUE TO MONITOR.
[2019-01-22 20:17] VITALS: BP 96/51
[2019-01-22] MEDS: SENNOSIDES 8.6 MG TABLET GT SCH (21:27)
[2019-01-23 00:20] VITALS: BP 119/61
[2019-01-23] MEDS: IPRATROPIUM NEB FS 0.5 MG/2.5 ML AMPUL.NEB NEB SCH ×4 (01:53→19:31)
[2019-01-23] MEDS: METOCLOPRAMIDE HCL 10 MG TABLET GT SCH ×3 (05:53→18:08)
[2019-01-23] MEDS: BLOOD SUGAR DIAGNOSTIC 1 EACH STRIP IN SCH ×3 (05:53→18:08)
[2019-01-23] MEDS: BIOTENE MOISTURIZING MM SCH ×3 (05:53→18:09)
[2019-01-23] MEDS: NEPRO 1,000 ML BOTTLE GT PRN (05:54)
[2019-01-23] MEDS: INSULIN REGULAR, HUMAN 100 UNIT/ML 3 ML VIAL SQ PRN ×3 (05:55→18:09)
[2019-01-23 06:20] VITALS: BP 132/61
[2019-01-23 08:44] VITALS: BP 120/60
[2019-01-23] MEDS: HYDROGEN PEROXIDE 480 ML BOTTLE TP SCH ×2 (09:13→20:25)
[2019-01-23] MEDS: ACIDOPHILUS/BULGARICUS 1 EACH TAB.CHEW GT SCH ×2 (09:23→21:05)
[2019-01-23] MEDS: DOCUSATE SODIUM LIQ 100 MG/10 ML UDC GT SCH (09:23)
[2019-01-23] MEDS: ASCORBIC ACID 500 MG TABLET GT SCH (09:24)
[2019-01-23] MEDS: ZINC SULFATE 220 MG CAPSULE GT SCH (09:24)
[2019-01-23] MEDS: METOPROLOL TARTRATE 25 MG TABLET GT SCH ×2 (09:24→21:06)
[2019-01-23] MEDS: PROSOURCE / PROSTAT (PYXIS) 30 ML UDC GT SCH (09:24)
[2019-01-23] MEDS: MULTIVIT W/MINERALS 1 TAB TABLET GT SCH (09:24)
[2019-01-23] MEDS: HEPARIN SODIUM, PORCINE 5000 UNITS/1 ML VIAL SQ SCH ×2 (09:24→21:06)
[2019-01-23] MEDS: ACETAMINOPHEN 650 MG/20.3 ML UDC GT SCH ×2 (09:24→21:06)
[2019-01-23] MEDS: INSULIN DETEMIR 100 UNIT/ML CARTRIDGE SQ SCH ×2 (09:25→21:07)
[2019-01-23] MEDS: Z GUARD REMEDY 4 OZ OINT TP SCH ×4 (10:00→21:07)
[2019-01-23] MEDS: DAKINS QUARTER STRENGTH (0.125%) 480 ML BOTTLE TOP SCH ×2 (10:00→21:07)
[2019-01-23] MEDS: COD LIVER OIL/ZINC OXIDE 120 GM TUBE TP SCH (10:00)
[2019-01-23] MEDS: VITAMINS A AND D 56.7 GM TUBE TP SCH ×2 (10:00→21:07)
[2019-01-23 12:00] VITALS: BP 147/73
--- NOTE | 2019-01-23 12:44 | NUR ---
YNES left the patient's Daughter, Jennifer Araiza [phone] a voicemail inviting family to attend the IDT Plan of Care Conference meeting on 01/30/19 from 12:30pm-12:30pm in the activities room.
--- NOTE | 2019-01-23 17:23 | NUR ---
Pt receive stable on ordered MV settings, treatment given and no adverse reaction observe, vent plug at red outlet, spare trach and ambu bag at bedside. Trach patent and secured, pt remained stable the whole shift, will contine to minitor
[2019-01-23 18:33] VITALS: BP 134/70
[2019-01-23 20:02] VITALS: BP 148/60
--- NOTE | 2019-01-23 20:43 | NUR ---
PT RCVD TRACH'D ON [facility] VENT WITH CHARTED SETTINGS. PT BIRDIE TX WELL. SX DONE. PT TRACH IS PATENT AND SECURE. VENT PLUGGED INTO RED OUTLET. ALARMS ARE ON AND AUDIBLE. AMBU BAG AT BEDSIDE. Addendum: 01/23/19 at 2042 by FELICITAS CHRISTIE RT Amended: Links added.
[2019-01-23] MEDS: SENNOSIDES 8.6 MG TABLET GT SCH (21:07)
[2019-01-24] VITALS (7 sets, daily range): BP systolic 114–136; BP diastolic 52–68
[2019-01-24] MEDS: BIOTENE MOISTURIZING MM SCH ×5 (00:17→23:38)
[2019-01-24] MEDS: METOCLOPRAMIDE HCL 10 MG TABLET GT SCH ×5 (00:17→23:38)
[2019-01-24] MEDS: BLOOD SUGAR DIAGNOSTIC 1 EACH STRIP IN SCH ×5 (00:17→23:38)
[2019-01-24] MEDS: INSULIN REGULAR, HUMAN 100 UNIT/ML 3 ML VIAL SQ PRN ×5 (00:19→23:39)
[2019-01-24] MEDS: IPRATROPIUM NEB FS 0.5 MG/2.5 ML AMPUL.NEB NEB SCH ×4 (00:39→20:03)
[2019-01-24] MEDS: HYDROGEN PEROXIDE 480 ML BOTTLE TP SCH ×2 (08:16→21:32)
[2019-01-24] MEDS: DOCUSATE SODIUM LIQ 100 MG/10 ML UDC GT SCH (08:53)
[2019-01-24] MEDS: ACIDOPHILUS/BULGARICUS 1 EACH TAB.CHEW GT SCH ×2 (08:53→21:27)
[2019-01-24] MEDS: METOPROLOL TARTRATE 25 MG TABLET GT SCH ×2 (08:53→21:27)
[2019-01-24] MEDS: MULTIVIT W/MINERALS 1 TAB TABLET GT SCH (08:54)
[2019-01-24] MEDS: ACETAMINOPHEN 650 MG/20.3 ML UDC GT SCH ×2 (08:54→21:27)
[2019-01-24] MEDS: ASCORBIC ACID 500 MG TABLET GT SCH (08:54)
[2019-01-24] MEDS: PROSOURCE / PROSTAT (PYXIS) 30 ML UDC GT SCH (08:54)
[2019-01-24] MEDS: ZINC SULFATE 220 MG CAPSULE GT SCH (08:55)
[2019-01-24] MEDS: INSULIN DETEMIR 100 UNIT/ML CARTRIDGE SQ SCH ×2 (09:02→21:32)
[2019-01-24] MEDS: HEPARIN SODIUM, PORCINE 5000 UNITS/1 ML VIAL SQ SCH ×2 (09:02→21:28)
[2019-01-24] MEDS: VITAMINS A AND D 56.7 GM TUBE TP SCH ×2 (09:30→21:33)
[2019-01-24] MEDS: DAKINS QUARTER STRENGTH (0.125%) 480 ML BOTTLE TOP SCH ×2 (09:30→21:32)
[2019-01-24] MEDS: COD LIVER OIL/ZINC OXIDE 120 GM TUBE TP SCH (09:30)
[2019-01-24] MEDS: Z GUARD REMEDY 4 OZ OINT TP SCH ×4 (09:30→21:32)
--- NOTE | 2019-01-24 17:47 | NUR ---
RT NOTE PATIENT RECEIVED ON MECHANICAL VENT. WITH NOTED SETTINGS. VENTILATOR IS PLUGGED TO RED OUTLET AND ALARMS ARE SET AND AUDIBLE. TRACH IS PATENT AND SECURED. SPARE TRACH AND BMV AT BEDSIDE. TRACH CARE WAS PERFORMED. PATIENT TOLERATED Q6 TX'S INLINE WELL WITH NO ADVERSE REACTIONS. SUCTION MODERATE GREEN THICK SECRETIONS THROUGH OUT THE DAY. BREATH SOUNDS WERE RHONCHI BEFORE SUCTION AND COARSE AFTER SUCTION. PATIENT MAINTAINED HEART RATE, RESPIRATORY RATE, AND O2 SATURATIONS WITHIN NORMAL RANGES. NO SOB NOTED. REPORT WILL BE GIVEN TO PRODUCE TEAM MEMBER. Addendum: 01/24/19 at 1750 by PHYLLIS WALTER RT Amended: Links added.
[2019-01-24] MEDS: SENNOSIDES 8.6 MG TABLET GT SCH (21:33)
[2019-01-25] VITALS: BP 116/63
[2019-01-25] MEDS: IPRATROPIUM NEB FS 0.5 MG/2.5 ML AMPUL.NEB NEB SCH ×4 (00:57→19:25)
[2019-01-25] MEDS: BIOTENE MOISTURIZING MM SCH ×4 (05:10→23:15)
[2019-01-25] MEDS: METOCLOPRAMIDE HCL 10 MG TABLET GT SCH ×4 (05:10→23:14)
[2019-01-25] MEDS: BLOOD SUGAR DIAGNOSTIC 1 EACH STRIP IN SCH ×4 (05:38→23:14)
[2019-01-25] MEDS: INSULIN REGULAR, HUMAN 100 UNIT/ML 3 ML VIAL SQ PRN ×4 (05:40→23:15)
[2019-01-25 06:00] VITALS: BP 100/50
--- NOTE | 2019-01-25 06:11 | NUR ---
Pt received on ordered MV settings , Vent plug on red outlet, spare trach and ambu bag is at bedside, alarms are on and audible, all HHN tx. given and no adverse reaction observe. trach patent and secured, sxn prn, pt was stable the whole shift, no sob or respiratory distress noted during the shift
[2019-01-25 07:20] VITALS: BP 139/74
--- NOTE | 2019-01-25 07:54 | NUR ---
RT Pt received trached on the vent with noted settings. Pt is awake but does not follow commands. Vent is plugged into red outlet. No respiratory distress noted. Addendum: 01/25/19 at 1634 by ZAK SUAREZ RT Amended: Links added.
[2019-01-25] MEDS: DOCUSATE SODIUM LIQ 100 MG/10 ML UDC GT SCH (08:56)
[2019-01-25] MEDS: ACIDOPHILUS/BULGARICUS 1 EACH TAB.CHEW GT SCH ×2 (08:56→21:03)
[2019-01-25] MEDS: ZINC SULFATE 220 MG CAPSULE GT SCH (08:57)
[2019-01-25] MEDS: ASCORBIC ACID 500 MG TABLET GT SCH (08:57)
[2019-01-25] MEDS: PROSOURCE / PROSTAT (PYXIS) 30 ML UDC GT SCH (08:57)
[2019-01-25] MEDS: METOPROLOL TARTRATE 25 MG TABLET GT SCH ×2 (08:57→21:03)
[2019-01-25] MEDS: ACETAMINOPHEN 650 MG/20.3 ML UDC GT SCH ×2 (08:57→21:03)
[2019-01-25] MEDS: MULTIVIT W/MINERALS 1 TAB TABLET GT SCH (08:57)
[2019-01-25] MEDS: HYDROGEN PEROXIDE 480 ML BOTTLE TP SCH ×2 (09:00→21:05)
[2019-01-25] MEDS: VITAMINS A AND D 56.7 GM TUBE TP SCH ×2 (09:00→21:05)
[2019-01-25] MEDS: DAKINS QUARTER STRENGTH (0.125%) 480 ML BOTTLE TOP SCH ×2 (09:00→21:04)
[2019-01-25] MEDS: COD LIVER OIL/ZINC OXIDE 120 GM TUBE TP SCH (09:00)
[2019-01-25] MEDS: Z GUARD REMEDY 4 OZ OINT TP SCH ×4 (09:00→21:05)
[2019-01-25] MEDS: HEPARIN SODIUM, PORCINE 5000 UNITS/1 ML VIAL SQ SCH ×2 (09:10→21:04)
[2019-01-25] MEDS: INSULIN DETEMIR 100 UNIT/ML CARTRIDGE SQ SCH ×2 (09:11→21:04)
[2019-01-25 12:00] VITALS: BP 118/66
[2019-01-25 18:26] VITALS: BP 122/65
[2019-01-25 19:48] VITALS: BP 113/50
[2019-01-25] MEDS: SENNOSIDES 8.6 MG TABLET GT SCH (21:05)
[2019-01-26] MEDS: IPRATROPIUM NEB FS 0.5 MG/2.5 ML AMPUL.NEB NEB SCH ×4 (00:58→19:35)
[2019-01-26 02:09] VITALS: BP 124/68
[2019-01-26] MEDS: BLOOD SUGAR DIAGNOSTIC 1 EACH STRIP IN SCH ×3 (05:38→17:38)
[2019-01-26] MEDS: METOCLOPRAMIDE HCL 10 MG TABLET GT SCH ×3 (05:38→17:38)
[2019-01-26] MEDS: BIOTENE MOISTURIZING MM SCH ×3 (05:38→17:38)
[2019-01-26] MEDS: INSULIN REGULAR, HUMAN 100 UNIT/ML 3 ML VIAL SQ PRN ×3 (05:40→17:40)
[2019-01-26 06:14] VITALS: BP 118/69
[2019-01-26] MEDS: HYDROGEN PEROXIDE 480 ML BOTTLE TP SCH ×2 (07:10→19:35)
[2019-01-26 07:38] VITALS: BP 159/73
--- NOTE | 2019-01-26 08:30 | NUR ---
Dr Felton ordered to DC Levemir insulin 12 units SC q 0900 and 8 units SC q 2100, give Levemir insulin 16 units SC q 0900 and 14 units SC q 2100. He also ordered BMP CBC Lipid Panel MG Phos in AM. Notified pt's daughter and Dr Patrick.
[2019-01-26] MEDS: ACIDOPHILUS/BULGARICUS 1 EACH TAB.CHEW GT SCH ×2 (09:13→21:10)
[2019-01-26] MEDS: DOCUSATE SODIUM LIQ 100 MG/10 ML UDC GT SCH (09:13)
[2019-01-26] MEDS: METOPROLOL TARTRATE 25 MG TABLET GT SCH ×2 (09:13→21:11)
[2019-01-26] MEDS: HEPARIN SODIUM, PORCINE 5000 UNITS/1 ML VIAL SQ SCH ×2 (09:14→21:11)
[2019-01-26] MEDS: PROSOURCE / PROSTAT (PYXIS) 30 ML UDC GT SCH (09:14)
[2019-01-26] MEDS: ASCORBIC ACID 500 MG TABLET GT SCH (09:14)
[2019-01-26] MEDS: INSULIN DETEMIR 100 UNIT/ML CARTRIDGE SQ SCH ×2 (09:14→21:11)
[2019-01-26] MEDS: ACETAMINOPHEN 650 MG/20.3 ML UDC GT SCH ×2 (09:14→21:11)
[2019-01-26] MEDS: MULTIVIT W/MINERALS 1 TAB TABLET GT SCH (09:14)
[2019-01-26] MEDS: ZINC SULFATE 220 MG CAPSULE GT SCH (09:16)
[2019-01-26] MEDS: VITAMINS A AND D 56.7 GM TUBE TP SCH ×2 (09:45→21:12)
[2019-01-26] MEDS: DAKINS QUARTER STRENGTH (0.125%) 480 ML BOTTLE TOP SCH ×2 (09:45→21:12)
[2019-01-26] MEDS: Z GUARD REMEDY 4 OZ OINT TP SCH ×4 (09:45→21:12)
[2019-01-26] MEDS: COD LIVER OIL/ZINC OXIDE 120 GM TUBE TP SCH (09:45)
[2019-01-26] MEDS: NEPRO 1,000 ML BOTTLE GT PRN (11:09)
[2019-01-26 12:00] VITALS: BP 150/74
[2019-01-26 18:16] VITALS: BP 113/57
--- NOTE | 2019-01-26 19:36 | NUR ---
RT NOTE: RECEIVED TRACH PT ON [facility] VENT ON NOTED SETTINGS PER MD ORDERS. TRACH IS PATENT AND SECURED. TRACH CARE DONE. COOK SYRUP MAKER DONE. Q6 BREATHING TX GIVEN WITH NO ADVERSE REACTION NOTED. SX DONE PRN. VENT PLUGGED INTO RED OUTLET. ALARMS ON AND AUDIBLE. RODERICKU BAG @ BEDSIDE. NO RESP DISTRESS AT THIS TIME. WILL CONT TO MONITOR PT. Addendum: 01/27/19 at 0303 by PREMA SOTO RT Amended: Links added.
[2019-01-26 20:31] VITALS: BP 108/55
[2019-01-26] MEDS: SENNOSIDES 8.6 MG TABLET GT SCH (21:12)
[2019-01-27 00:15] VITALS: BP 130/62
[2019-01-27] MEDS: BLOOD SUGAR DIAGNOSTIC 1 EACH STRIP IN SCH ×5 (00:16→23:45)
[2019-01-27] MEDS: METOCLOPRAMIDE HCL 10 MG TABLET GT SCH ×5 (00:16→23:45)
[2019-01-27] MEDS: BIOTENE MOISTURIZING MM SCH ×5 (00:17→23:45)
[2019-01-27] MEDS: INSULIN REGULAR, HUMAN 100 UNIT/ML 3 ML VIAL SQ PRN ×5 (00:18→23:46)
[2019-01-27] MEDS: IPRATROPIUM NEB FS 0.5 MG/2.5 ML AMPUL.NEB NEB SCH ×4 (01:44→19:37)
[2019-01-27 06:11] VITALS: BP 126/67
[2019-01-27 06:49] LABS: BASOPHILS % (AUTO) 0.4 % (0.0-2.0); EOSINOPHILS % (AUTO) 2.1 % (0.0-6.0); HEMATOCRIT 31 % (33-45); HEMOGLOBIN 9.8 g/dL (11.5-14.8); LYMPHOCYTES # (AUTO) 1.6 /CMM (0.8-4.8); LYMPHOCYTES % (AUTO) 16.8 % (20.0-44.0); MEAN CORPUSCULAR HGB CONC 32 g/dl (31.0-36.0); MEAN CORPUSCULAR VOLUME 80 fL (82-100); MONOCYTES # (AUTO) 0.8 /CMM (0.1-1.30); MONOCYTES % (AUTO) 8.1 % (2.0-12.0); NEUTROPHILS # (AUTO) 6.8 /CMM (1.8-8.9); NEUTROPHILS % (AUTO) 72.6 % (43.0-81.0); PLATELET COUNT (AUTO) 214 /CMM (150-450); RED BLOOD CELL COUNT(AUTO) 3.82 MIL/uL (4.0-5.2); WHITE BLOOD COUNT (AUTO) 9.4 K/uL (4.3-11.0)
[2019-01-27 07:12] LABS: CALCIUM, SERUM 9.8 mg/dL (8.5-10.1); CARBON DIOXIDE 24 mmol/L (21-32); CHLORIDE 96 mmol/L (98-107); CREATININE 2.4 mg/dL (0.6-1.3); GLUCOSE 240 mg/dL (74-106); MAGNESIUM 3.5 mg/dL (1.8-2.4); PHOSPHORUS 4.5 mg/dL (2.5-4.9); POTASSIUM 4.1 mmol/L (3.5-5.1); SODIUM SERUM 133 mmol/L (136-145)
[2019-01-27 07:40] VITALS: BP 129/57
[2019-01-27 07:41] LABS: UREA NITROGEN, BLOOD 128 mg/dL (7-18)
[2019-01-27 08:49] LABS: CHOLESTEROL 182 mg/dL (<200); HDL CHOLESTEROL 38 mg/dL (40-60); LDL 101 mg/dL (0-99); TRIGLYCERIDES 421 mg/dL (30-150)
[2019-01-27] MEDS: HEPARIN SODIUM, PORCINE 5000 UNITS/1 ML VIAL SQ SCH ×2 (09:00→21:01)
[2019-01-27] MEDS: ACETAMINOPHEN 650 MG/20.3 ML UDC GT SCH ×2 (09:00→21:01)
[2019-01-27] MEDS: DAKINS QUARTER STRENGTH (0.125%) 480 ML BOTTLE TOP SCH ×2 (09:00→21:02)
[2019-01-27] MEDS: ACIDOPHILUS/BULGARICUS 1 EACH TAB.CHEW GT SCH ×2 (09:00→21:00)
[2019-01-27] MEDS: DOCUSATE SODIUM LIQ 100 MG/10 ML UDC GT SCH (09:00)
[2019-01-27] MEDS: ZINC SULFATE 220 MG CAPSULE GT SCH (09:00)
[2019-01-27] MEDS: INSULIN DETEMIR 100 UNIT/ML CARTRIDGE SQ SCH ×2 (09:00→21:02)
[2019-01-27] MEDS: ASCORBIC ACID 500 MG TABLET GT SCH (09:00)
[2019-01-27] MEDS: MULTIVIT W/MINERALS 1 TAB TABLET GT SCH (09:00)
[2019-01-27] MEDS: Z GUARD REMEDY 4 OZ OINT TP SCH ×4 (09:00→21:02)
[2019-01-27] MEDS: COD LIVER OIL/ZINC OXIDE 120 GM TUBE TP SCH (09:00)
[2019-01-27] MEDS: PROSOURCE / PROSTAT (PYXIS) 30 ML UDC GT SCH (09:00)
[2019-01-27] MEDS: METOPROLOL TARTRATE 25 MG TABLET GT SCH ×2 (09:00→21:01)
[2019-01-27] MEDS: VITAMINS A AND D 56.7 GM TUBE TP SCH ×2 (09:00→21:02)
[2019-01-27] MEDS: HYDROGEN PEROXIDE 480 ML BOTTLE TP SCH ×2 (09:00→21:02)
--- NOTE | 2019-01-27 09:45 | NUR ---
Relayed lab results to Dr Patrick. Received order to give 1/2 NS at 80 mL/hr IV for hydration, BMP in AM. Notified Jennifer.
[2019-01-27] MEDS: IV 1/2NS 1000 ML 1,000 ML IV PRN (10:45)
[2019-01-27] MEDS ORDERED: IV NS 0.9% 1,000 ML IV PRN (11:00)
[2019-01-27 15:52] VITALS: BP 122/63
[2019-01-27 18:42] VITALS: BP 130/62
[2019-01-27 20:20] VITALS: BP 120/60
--- NOTE | 2019-01-27 20:26 | NUR ---
RT NOTE PT RECEIVED TRACHED ON MECHANICAL VENTILATION. AMBU BAG/BACK UP TRACH @ BEDSIDE. TX GIVEN, NO ADVERSE REACTIONS NOTED. SX DONE, TRACH SECURED AND PATENT. ALARMS ON AND AUDIBLE. VENT PLUGGED TO RED OUTLET. NO SOB NOTED AT THIS TIME. WILL CONTINUE TO MONITOR T/O SHIFT. Addendum: 01/27/19 at 2025 by MANOLO MCDONNELL RT Amended: Links added.
[2019-01-27] MEDS: SENNOSIDES 8.6 MG TABLET GT SCH (21:02)
[2019-01-28] MEDS: IPRATROPIUM NEB FS 0.5 MG/2.5 ML AMPUL.NEB NEB SCH ×4 (01:07→20:10)
[2019-01-28] MEDS: IV 1/2NS 1000 ML 1,000 ML IV PRN ×2 (02:00→17:49)
[2019-01-28 03:28] VITALS: BP 136/64
[2019-01-28] MEDS: METOCLOPRAMIDE HCL 10 MG TABLET GT SCH ×4 (05:45→23:34)
[2019-01-28] MEDS: BIOTENE MOISTURIZING MM SCH ×4 (05:46→23:35)
[2019-01-28] MEDS: BLOOD SUGAR DIAGNOSTIC 1 EACH STRIP IN SCH ×4 (05:46→23:34)
[2019-01-28] MEDS: INSULIN REGULAR, HUMAN 100 UNIT/ML 3 ML VIAL SQ PRN ×4 (05:47→23:38)
[2019-01-28 06:01] VITALS: BP 134/69
[2019-01-28 07:39] VITALS: BP 120/65
[2019-01-28] MEDS: METOPROLOL TARTRATE 25 MG TABLET GT SCH ×2 (08:58→21:48)
[2019-01-28] MEDS: ZINC SULFATE 220 MG CAPSULE GT SCH (08:58)
[2019-01-28] MEDS: MULTIVIT W/MINERALS 1 TAB TABLET GT SCH (08:58)
[2019-01-28] MEDS: PROSOURCE / PROSTAT (PYXIS) 30 ML UDC GT SCH (08:58)
[2019-01-28] MEDS: ACIDOPHILUS/BULGARICUS 1 EACH TAB.CHEW GT SCH ×2 (08:58→21:49)
[2019-01-28] MEDS: ASCORBIC ACID 500 MG TABLET GT SCH (08:58)
[2019-01-28] MEDS: DOCUSATE SODIUM LIQ 100 MG/10 ML UDC GT SCH (08:58)
[2019-01-28] MEDS: ACETAMINOPHEN 650 MG/20.3 ML UDC GT SCH ×2 (08:58→21:48)
[2019-01-28] MEDS: HEPARIN SODIUM, PORCINE 5000 UNITS/1 ML VIAL SQ SCH ×2 (08:59→21:53)
[2019-01-28] MEDS: HYDROGEN PEROXIDE 480 ML BOTTLE TP SCH ×2 (09:00→20:59)
[2019-01-28] MEDS: DAKINS QUARTER STRENGTH (0.125%) 480 ML BOTTLE TOP SCH ×2 (09:04→21:00)
[2019-01-28] MEDS: COD LIVER OIL/ZINC OXIDE 120 GM TUBE TP SCH (09:04)
[2019-01-28] MEDS: INSULIN DETEMIR 100 UNIT/ML CARTRIDGE SQ SCH ×2 (09:04→21:52)
[2019-01-28] MEDS: Z GUARD REMEDY 4 OZ OINT TP SCH ×4 (09:05→21:00)
[2019-01-28] MEDS: VITAMINS A AND D 56.7 GM TUBE TP SCH ×2 (09:05→21:00)
[2019-01-28 11:08] LABS: CALCIUM, SERUM 9.5 mg/dL (8.5-10.1); CARBON DIOXIDE 24 mmol/L (21-32); CHLORIDE 96 mmol/L (98-107); CREATININE 2.1 mg/dL (0.6-1.3); GLUCOSE 207 mg/dL (74-106); POTASSIUM 4.2 mmol/L (3.5-5.1); SODIUM SERUM 133 mmol/L (136-145)
[2019-01-28 11:13] LABS: UREA NITROGEN, BLOOD 129 mg/dL (7-18)
[2019-01-28 12:00] VITALS: BP 139/66
--- NOTE | 2019-01-28 15:30 | NUR ---
Seen by PARTS PERSON Kim Melo for serial debridement of abdomen. Consent obtain from resident's daughter Jennifer witnessed by 2 licensed nurses.
--- NOTE | 2019-01-28 17:45 | NUR ---
Notified Dr. Patrick of BMP (01/28/19) result which is almost the same as the result from yesterdays's BMP BUN 129, Creat 2.1 and Na 133. Patient currently on IVF 1/2 NS at 80cc/hr. Dr. Patrick asked to refer it with Dr. Felton. Paged MD Felton office spoke with answering service Xin, will relay info to cannon crewmember MD Dr Dixon. Awaiting for call back.
[2019-01-28 18:17] VITALS: BP 142/81
--- NOTE | 2019-01-28 18:24 | NUR ---
Received a call from Dr. Oro, reimbursement liaison for Dr. Felton and relayed BMP result, with new order to repeat BMP in AM and change IVF to NS at 50 cc/hr. Order carried out. Addendum: 01/28/19 at 1841 by LISA BRAGA RN Resident's daughter Jennifer notified of BMP result and new order.
[2019-01-28] MEDS: IV NS 0.9% 1,000 ML IV PRN (18:57)
[2019-01-28 19:52] VITALS: BP 127/58
[2019-01-28] MEDS: SENNOSIDES 8.6 MG TABLET GT SCH (21:50)
--- NOTE | 2019-01-28 23:10 | NUR ---
pt rec'd trached on [facility] vent on AC mode. no resp distress or sob noted. trach is patent and secured. sx'd for small amt of pale yellow secretions. alarms are set and audible. vent plugged into red outlet. ambu bag bedside. will continue to monitor. Addendum: 01/28/19 at 2310 by TALA YAO RT Amended: Links added.
[2019-01-29] VITALS (7 sets, daily range): BP systolic 104–156; BP diastolic 40–67
[2019-01-29] MEDS: IPRATROPIUM NEB FS 0.5 MG/2.5 ML AMPUL.NEB NEB SCH ×4 (01:35→19:50)
[2019-01-29] MEDS: NEPRO 1,000 ML BOTTLE GT PRN (04:54)
[2019-01-29] MEDS: BIOTENE MOISTURIZING MM SCH ×4 (05:54→23:31)
[2019-01-29] MEDS: BLOOD SUGAR DIAGNOSTIC 1 EACH STRIP IN SCH ×4 (05:54→23:30)
[2019-01-29] MEDS: INSULIN REGULAR, HUMAN 100 UNIT/ML 3 ML VIAL SQ PRN ×4 (05:56→23:33)
[2019-01-29] MEDS: METOCLOPRAMIDE HCL 10 MG TABLET GT SCH ×4 (05:57→23:28)
[2019-01-29] MEDS: ACIDOPHILUS/BULGARICUS 1 EACH TAB.CHEW GT SCH ×2 (08:57→20:32)
[2019-01-29] MEDS: DOCUSATE SODIUM LIQ 100 MG/10 ML UDC GT SCH (08:57)
[2019-01-29] MEDS: HEPARIN SODIUM, PORCINE 5000 UNITS/1 ML VIAL SQ SCH ×2 (08:58→20:33)
[2019-01-29] MEDS: ACETAMINOPHEN 650 MG/20.3 ML UDC GT SCH ×2 (08:58→20:33)
[2019-01-29] MEDS: PROSOURCE / PROSTAT (PYXIS) 30 ML UDC GT SCH (08:58)
[2019-01-29] MEDS: ZINC SULFATE 220 MG CAPSULE GT SCH (08:58)
[2019-01-29] MEDS: ASCORBIC ACID 500 MG TABLET GT SCH (08:58)
[2019-01-29] MEDS: MULTIVIT W/MINERALS 1 TAB TABLET GT SCH (08:58)
[2019-01-29] MEDS: METOPROLOL TARTRATE 25 MG TABLET GT SCH ×2 (08:58→20:32)
[2019-01-29] MEDS: INSULIN DETEMIR 100 UNIT/ML CARTRIDGE SQ SCH ×2 (08:59→20:34)
[2019-01-29] MEDS: HYDROGEN PEROXIDE 480 ML BOTTLE TP SCH ×2 (09:00→20:35)
[2019-01-29] MEDS: Z GUARD REMEDY 4 OZ OINT TP SCH ×4 (09:01→20:35)
[2019-01-29] MEDS: VITAMINS A AND D 56.7 GM TUBE TP SCH ×2 (09:01→20:35)
[2019-01-29] MEDS: COD LIVER OIL/ZINC OXIDE 120 GM TUBE TP SCH ×2 (09:01→20:34)
[2019-01-29 11:50] LABS: CALCIUM, SERUM 9.4 mg/dL (8.5-10.1); CARBON DIOXIDE 20 mmol/L (21-32); CHLORIDE 99 mmol/L (98-107); GLUCOSE 238 mg/dL (74-106); POTASSIUM 4.7 mmol/L (3.5-5.1); SODIUM SERUM 133 mmol/L (136-145)
[2019-01-29 11:55] LABS: UREA NITROGEN, BLOOD 118 mg/dL (7-18)
[2019-01-29] MEDS: DAKINS QUARTER STRENGTH (0.125%) 480 ML BOTTLE TOP SCH ×2 (13:00→20:34)
--- NOTE | 2019-01-29 15:57 | NUR ---
Seen by Dr Patrick. Relayed BMP result to him and notified him that IV fluid was changed to NS at 50 mL/hr. He ordered to do daily BMP.
[2019-01-29] MEDS: SENNOSIDES 8.6 MG TABLET GT SCH (22:00)
[2019-01-30] VITALS: BP 156/90
[2019-01-30] MEDS: IPRATROPIUM NEB FS 0.5 MG/2.5 ML AMPUL.NEB NEB SCH ×4 (01:08→19:30)
--- NOTE | 2019-01-30 04:46 | NUR ---
Pt receive stable on ordered vent settings, vent plug on red outlet, ambu bag and spare trach at bedside, trach patent and secured, sxn PRN, no sob or respiratory distress noted, will continue to monitor
[2019-01-30 06:00] VITALS: BP 128/16
[2019-01-30] MEDS: METOCLOPRAMIDE HCL 10 MG TABLET GT SCH ×4 (06:06→23:18)
[2019-01-30] MEDS: BIOTENE MOISTURIZING MM SCH ×4 (06:07→23:18)
[2019-01-30] MEDS: BLOOD SUGAR DIAGNOSTIC 1 EACH STRIP IN SCH ×4 (06:07→23:18)
[2019-01-30] MEDS: INSULIN REGULAR, HUMAN 100 UNIT/ML 3 ML VIAL SQ PRN ×4 (06:10→23:19)
[2019-01-30 06:59] LABS: CALCIUM, SERUM 9.7 mg/dL (8.5-10.1); CARBON DIOXIDE 24 mmol/L (21-32); CHLORIDE 103 mmol/L (98-107); CREATININE 1.9 mg/dL (0.6-1.3); GLUCOSE 162 mg/dL (74-106); POTASSIUM 4.3 mmol/L (3.5-5.1); SODIUM SERUM 140 mmol/L (136-145)
[2019-01-30 07:06] LABS: UREA NITROGEN, BLOOD 103 mg/dL (7-18)
[2019-01-30 07:33] VITALS: BP 154/68
[2019-01-30] MEDS: HYDROGEN PEROXIDE 480 ML BOTTLE TP SCH ×2 (09:00→20:51)
[2019-01-30] MEDS: METOPROLOL TARTRATE 25 MG TABLET GT SCH ×2 (09:35→20:50)
[2019-01-30] MEDS: PROSOURCE / PROSTAT (PYXIS) 30 ML UDC GT SCH (09:35)
[2019-01-30] MEDS: ACIDOPHILUS/BULGARICUS 1 EACH TAB.CHEW GT SCH ×2 (09:35→20:50)
[2019-01-30] MEDS: DOCUSATE SODIUM LIQ 100 MG/10 ML UDC GT SCH (09:35)
[2019-01-30] MEDS: MULTIVIT W/MINERALS 1 TAB TABLET GT SCH (09:36)
[2019-01-30] MEDS: ASCORBIC ACID 500 MG TABLET GT SCH (09:36)
[2019-01-30] MEDS: ZINC SULFATE 220 MG CAPSULE GT SCH (09:36)
[2019-01-30] MEDS: ACETAMINOPHEN 650 MG/20.3 ML UDC GT SCH ×2 (09:36→20:50)
[2019-01-30] MEDS: INSULIN DETEMIR 100 UNIT/ML CARTRIDGE SQ SCH ×2 (09:37→21:16)
[2019-01-30] MEDS: DAKINS QUARTER STRENGTH (0.125%) 480 ML BOTTLE TOP SCH ×2 (09:37→20:51)
[2019-01-30] MEDS: HEPARIN SODIUM, PORCINE 5000 UNITS/1 ML VIAL SQ SCH ×2 (09:37→20:51)
[2019-01-30] MEDS: VITAMINS A AND D 56.7 GM TUBE TP SCH ×2 (09:38→20:51)
[2019-01-30] MEDS: Z GUARD REMEDY 4 OZ OINT TP SCH ×4 (09:38→20:51)
[2019-01-30] MEDS: COD LIVER OIL/ZINC OXIDE 120 GM TUBE TP SCH ×2 (09:38→20:51)
[2019-01-30 12:00] VITALS: BP 124/66
--- NOTE | 2019-01-30 14:50 | NUR ---
January Plan of Care Conference took place today. The patients responsible republican/ daughter, Jennifer Araiza [phone] could not attend or participate via phone conference. Charge nurse discussed change in IV hydration; 01/26/19 DC Levemir insulin 12 units SC q 0900 and 8 units SC q 2100, give Levemir insulin 16 units SC q 0900 and 14 units SC q 2100; and BMP CBC Lipid Panel MG Phos for 01/27/19. Dr. Agarwal and Interdisciplinary team discussed the plan of care in detail. Current orders as well as treatments and medications were reviewed. Please see other disciplines IDT notes for further details.
[2019-01-30] MEDS: NEPRO 1,000 ML BOTTLE GT PRN (15:24)
[2019-01-30 18:00] VITALS: BP 128/59
[2019-01-30 19:32] VITALS: BP 120/57
[2019-01-30] MEDS: SENNOSIDES 8.6 MG TABLET GT SCH (21:16)
[2019-01-31 00:21] VITALS: BP 117/58
[2019-01-31] MEDS: IPRATROPIUM NEB FS 0.5 MG/2.5 ML AMPUL.NEB NEB SCH ×4 (02:12→19:39)
[2019-01-31] MEDS: BLOOD SUGAR DIAGNOSTIC 1 EACH STRIP IN SCH ×4 (05:32→23:19)
[2019-01-31] MEDS: METOCLOPRAMIDE HCL 10 MG TABLET GT SCH ×4 (05:32→23:19)
[2019-01-31] MEDS: BIOTENE MOISTURIZING MM SCH ×4 (05:32→23:19)
[2019-01-31] MEDS: INSULIN REGULAR, HUMAN 100 UNIT/ML 3 ML VIAL SQ PRN ×4 (05:34→23:20)
[2019-01-31] MEDS: BISACODYL SUPP (10 MG) 10 MG/SUPP.RECT SUPP.RECT RC PRN (05:34)
[2019-01-31 06:21] VITALS: BP 127/53
[2019-01-31 07:32] LABS: CALCIUM, SERUM 9.4 mg/dL (8.5-10.1); CARBON DIOXIDE 23 mmol/L (21-32); CHLORIDE 103 mmol/L (98-107); CREATININE 1.7 mg/dL (0.6-1.3); GLUCOSE 222 mg/dL (74-106); POTASSIUM 4.3 mmol/L (3.5-5.1); SODIUM SERUM 138 mmol/L (136-145)
[2019-01-31 07:35] VITALS: BP 153/77
[2019-01-31 07:36] LABS: UREA NITROGEN, BLOOD 95 mg/dL (7-18)
[2019-01-31] MEDS: HYDROGEN PEROXIDE 480 ML BOTTLE TP SCH ×2 (09:00→20:32)
[2019-01-31] MEDS: ACIDOPHILUS/BULGARICUS 1 EACH TAB.CHEW GT SCH ×2 (09:17→20:31)
[2019-01-31] MEDS: METOPROLOL TARTRATE 25 MG TABLET GT SCH ×2 (09:17→20:32)
[2019-01-31] MEDS: DOCUSATE SODIUM LIQ 100 MG/10 ML UDC GT SCH (09:17)
[2019-01-31] MEDS: ASCORBIC ACID 500 MG TABLET GT SCH (09:18)
[2019-01-31] MEDS: ACETAMINOPHEN 650 MG/20.3 ML UDC GT SCH ×2 (09:18→20:32)
[2019-01-31] MEDS: ZINC SULFATE 220 MG CAPSULE GT SCH (09:18)
[2019-01-31] MEDS: PROSOURCE / PROSTAT (PYXIS) 30 ML UDC GT SCH (09:18)
[2019-01-31] MEDS: MULTIVIT W/MINERALS 1 TAB TABLET GT SCH (09:18)
[2019-01-31] MEDS: HEPARIN SODIUM, PORCINE 5000 UNITS/1 ML VIAL SQ SCH ×2 (09:21→20:32)
[2019-01-31] MEDS: INSULIN DETEMIR 100 UNIT/ML CARTRIDGE SQ SCH ×2 (09:24→21:13)
--- NOTE | 2019-01-31 09:40 | NUR ---
Notified Dr. Agarwal of BMP result, BUN 95, Creat 1.7 with order to continue current IVF of NS at 50cc/hr and repeat BMP on Saturday. Order carried out.
[2019-01-31] MEDS: VITAMINS A AND D 56.7 GM TUBE TP SCH ×2 (09:55→20:32)
[2019-01-31] MEDS: DAKINS QUARTER STRENGTH (0.125%) 480 ML BOTTLE TOP SCH ×2 (09:55→20:32)
[2019-01-31] MEDS: COD LIVER OIL/ZINC OXIDE 120 GM TUBE TP SCH ×2 (09:55→20:32)
[2019-01-31] MEDS: Z GUARD REMEDY 4 OZ OINT TP SCH ×4 (09:55→20:32)
[2019-01-31 12:00] VITALS: BP 110/59
[2019-01-31] MEDS: NEPRO 1,000 ML BOTTLE GT PRN (16:43)
[2019-01-31 18:00] VITALS: BP 114/56
[2019-01-31 19:42] VITALS: BP 105/50
[2019-01-31] MEDS: SENNOSIDES 8.6 MG TABLET GT SCH (21:13)
[2019-02-01 00:04] VITALS: BP 102/55
[2019-02-01] MEDS: IPRATROPIUM NEB FS 0.5 MG/2.5 ML AMPUL.NEB NEB SCH ×4 (01:28→19:58)
[2019-02-01] MEDS: BLOOD SUGAR DIAGNOSTIC 1 EACH STRIP IN SCH ×3 (05:23→18:13)
[2019-02-01] MEDS: BIOTENE MOISTURIZING MM SCH ×3 (05:23→18:13)
[2019-02-01] MEDS: METOCLOPRAMIDE HCL 10 MG TABLET GT SCH ×3 (05:23→18:13)
[2019-02-01] MEDS: INSULIN REGULAR, HUMAN 100 UNIT/ML 3 ML VIAL SQ PRN ×3 (05:24→18:14)
--- NOTE | 2019-02-01 05:34 | NUR ---
RT PATIENT WAS RECEIVED ON CONTINUOUS VENT SUPPORT ON NOTED VENT SETTINGS.AIRWAY PATENT AND SECURED. PATIENT STABLE THROUGHOUT THE SHIFT.WILL CONTINUE TO MONITOR. Addendum: 02/01/19 at 0534 by NYA RICHARDS RT Amended: Links added.
[2019-02-01 06:05] VITALS: BP 103/56
[2019-02-01 07:42] VITALS: BP 147/81
--- NOTE | 2019-02-01 08:10 | NUR ---
RT Pt received trached on the vent with noted settings. Pt is awake but does not follow commands. Vent is plugged into red outlet. No respiratory distress noted at this time. Addendum: 02/01/19 at 1539 by ZAK SUAREZ RT Amended: Links added.
[2019-02-01] MEDS: COD LIVER OIL/ZINC OXIDE 120 GM TUBE TP SCH ×2 (09:00→21:36)
[2019-02-01] MEDS: HYDROGEN PEROXIDE 480 ML BOTTLE TP SCH ×2 (09:00→21:00)
[2019-02-01] MEDS: PROSOURCE / PROSTAT (PYXIS) 30 ML UDC GT SCH (09:00)
[2019-02-01] MEDS: INSULIN DETEMIR 100 UNIT/ML CARTRIDGE SQ SCH ×2 (09:00→21:36)
[2019-02-01] MEDS: DOCUSATE SODIUM LIQ 100 MG/10 ML UDC GT SCH (09:00)
[2019-02-01] MEDS: DAKINS QUARTER STRENGTH (0.125%) 480 ML BOTTLE TOP SCH ×2 (09:00→21:36)
[2019-02-01] MEDS: ACIDOPHILUS/BULGARICUS 1 EACH TAB.CHEW GT SCH ×2 (09:00→21:34)
[2019-02-01] MEDS: ZINC SULFATE 220 MG CAPSULE GT SCH (09:00)
[2019-02-01] MEDS: ASCORBIC ACID 500 MG TABLET GT SCH (09:00)
[2019-02-01] MEDS: VITAMINS A AND D 56.7 GM TUBE TP SCH ×2 (09:00→21:36)
[2019-02-01] MEDS: Z GUARD REMEDY 4 OZ OINT TP SCH ×4 (09:00→21:36)
[2019-02-01] MEDS: METOPROLOL TARTRATE 25 MG TABLET GT SCH ×2 (09:00→21:35)
[2019-02-01] MEDS: MULTIVIT W/MINERALS 1 TAB TABLET GT SCH (09:00)
[2019-02-01] MEDS: HEPARIN SODIUM, PORCINE 5000 UNITS/1 ML VIAL SQ SCH ×2 (09:00→21:35)
[2019-02-01] MEDS: ACETAMINOPHEN 650 MG/20.3 ML UDC GT SCH ×2 (09:00→21:35)
[2019-02-01 12:00] VITALS: BP 136/78
[2019-02-01] MEDS: IV NS 0.9% 1,000 ML IV PRN (13:37)
[2019-02-01 18:00] VITALS: BP 142/79
[2019-02-01 19:44] VITALS: BP 152/73
[2019-02-01] MEDS: SENNOSIDES 8.6 MG TABLET GT SCH (21:36)
[2019-02-02] VITALS: BP 134/88
[2019-02-02] MEDS: BIOTENE MOISTURIZING MM SCH ×5 (00:13→23:27)
[2019-02-02] MEDS: BLOOD SUGAR DIAGNOSTIC 1 EACH STRIP IN SCH ×5 (00:13→23:26)
[2019-02-02] MEDS: METOCLOPRAMIDE HCL 10 MG TABLET GT SCH ×5 (00:13→23:26)
[2019-02-02] MEDS: INSULIN REGULAR, HUMAN 100 UNIT/ML 3 ML VIAL SQ PRN ×5 (00:14→23:27)
[2019-02-02] MEDS: IPRATROPIUM NEB FS 0.5 MG/2.5 ML AMPUL.NEB NEB SCH ×4 (02:18→19:59)
[2019-02-02] MEDS: NEPRO 1,000 ML BOTTLE GT PRN (05:21)
[2019-02-02 06:00] VITALS: BP 131/88
[2019-02-02] MEDS: IV NS 0.9% 1,000 ML IV PRN (06:30)
[2019-02-02 07:32] VITALS: BP 153/75
[2019-02-02] MEDS: HYDROGEN PEROXIDE 480 ML BOTTLE TP SCH ×2 (07:53→21:46)
[2019-02-02 08:24] LABS: CALCIUM, SERUM 9.4 mg/dL (8.5-10.1); CARBON DIOXIDE 22 mmol/L (21-32); CHLORIDE 108 mmol/L (98-107); CREATININE 1.7 mg/dL (0.6-1.3); GLUCOSE 214 mg/dL (74-106); POTASSIUM 4.1 mmol/L (3.5-5.1); SODIUM SERUM 142 mmol/L (136-145); UREA NITROGEN, BLOOD 71 mg/dL (7-18)
[2019-02-02] MEDS: DAKINS QUARTER STRENGTH (0.125%) 480 ML BOTTLE TOP SCH ×2 (09:00→22:00)
[2019-02-02] MEDS: INSULIN DETEMIR 100 UNIT/ML CARTRIDGE SQ SCH ×2 (09:00→21:58)
[2019-02-02] MEDS: COD LIVER OIL/ZINC OXIDE 120 GM TUBE TP SCH ×2 (09:00→22:00)
[2019-02-02] MEDS: VITAMINS A AND D 56.7 GM TUBE TP SCH ×2 (09:00→22:00)
[2019-02-02] MEDS: Z GUARD REMEDY 4 OZ OINT TP SCH ×4 (09:00→22:00)
[2019-02-02] MEDS: HEPARIN SODIUM, PORCINE 5000 UNITS/1 ML VIAL SQ SCH ×2 (09:00→20:48)
[2019-02-02] MEDS: ACIDOPHILUS/BULGARICUS 1 EACH TAB.CHEW GT SCH ×2 (09:32→20:47)
[2019-02-02] MEDS: PROSOURCE / PROSTAT (PYXIS) 30 ML UDC GT SCH (09:33)
[2019-02-02] MEDS: METOPROLOL TARTRATE 25 MG TABLET GT SCH ×2 (09:33→20:47)
[2019-02-02] MEDS: MULTIVIT W/MINERALS 1 TAB TABLET GT SCH (09:34)
[2019-02-02] MEDS: ACETAMINOPHEN 650 MG/20.3 ML UDC GT SCH ×2 (09:34→20:47)
[2019-02-02] MEDS: ZINC SULFATE 220 MG CAPSULE GT SCH (09:35)
[2019-02-02] MEDS: DOCUSATE SODIUM LIQ 100 MG/10 ML UDC GT SCH (09:35)
[2019-02-02] MEDS: ASCORBIC ACID 500 MG TABLET GT SCH (09:35)
[2019-02-02 12:00] VITALS: BP 144/63
--- NOTE | 2019-02-02 15:00 | NUR ---
Relayed BMP result to Dr Patrick. No new order.
[2019-02-02 18:00] VITALS: BP 135/65
--- NOTE | 2019-02-02 19:59 | NUR ---
RT NOTES: PT RECEIVED TRACHED ON [facility] VENT ON CHARTED SETTINGS. NO SIGNS OF RESP DISTRESS/SOB NOTED AT THIS TIME. AIRWAY PATENT AND SECURED. APPLE PICKING SUPERVISOR DONE. PT SUCTIONED. HHN TX GIVEN. NO ADVERSE REACTIONS NOTED. ALARMS SET AND AUDIBLE. AMBUBABG AND SPARE TRACH AT BEDSIDE. VENT CONNECTED TO RED OUTLET. WILL CONT TO MONITOR. Addendum: 02/02/19 at 2200 by AMANDO RESENDEZ RT Amended: Links added.
[2019-02-02 20:00] VITALS: BP 115/58
[2019-02-02] MEDS: SENNOSIDES 8.6 MG TABLET GT SCH (22:02)
[2019-02-03 00:44] VITALS: BP 118/60
[2019-02-03] MEDS: IPRATROPIUM NEB FS 0.5 MG/2.5 ML AMPUL.NEB NEB SCH ×4 (01:24→19:50)
[2019-02-03] MEDS: IV NS 0.9% 1,000 ML IV PRN (02:47)
[2019-02-03] MEDS: BIOTENE MOISTURIZING MM SCH ×4 (05:29→23:11)
[2019-02-03] MEDS: METOCLOPRAMIDE HCL 10 MG TABLET GT SCH ×4 (05:29→23:11)
[2019-02-03] MEDS: BLOOD SUGAR DIAGNOSTIC 1 EACH STRIP IN SCH ×4 (06:12→23:11)
[2019-02-03] MEDS: INSULIN REGULAR, HUMAN 100 UNIT/ML 3 ML VIAL SQ PRN ×4 (06:13→23:12)
[2019-02-03 06:39] VITALS: BP 122/58
[2019-02-03 07:37] LABS: CALCIUM, SERUM 8.9 mg/dL (8.5-10.1); CARBON DIOXIDE 24 mmol/L (21-32); CHLORIDE 107 mmol/L (98-107); CREATININE 1.6 mg/dL (0.6-1.3); GLUCOSE 172 mg/dL (74-106); POTASSIUM 4.3 mmol/L (3.5-5.1); SODIUM SERUM 142 mmol/L (136-145); UREA NITROGEN, BLOOD 67 mg/dL (7-18)
[2019-02-03 07:48] VITALS: BP 143/69
--- NOTE | 2019-02-03 07:49 | NUR ---
RT Pt received trached on the vent with noted settings. Pt is awake but does not follow commands. Vent is plugged into red outlet. No SOB or respiratory distress noted. Addendum: 02/03/19 at 1841 by ZAK SUAREZ RT Amended: Links added.
[2019-02-03] MEDS: HYDROGEN PEROXIDE 480 ML BOTTLE TP SCH ×2 (09:00→20:34)
[2019-02-03] MEDS: ACETAMINOPHEN 650 MG/20.3 ML UDC GT SCH ×2 (09:38→21:28)
[2019-02-03] MEDS: PROSOURCE / PROSTAT (PYXIS) 30 ML UDC GT SCH (09:38)
[2019-02-03] MEDS: DOCUSATE SODIUM LIQ 100 MG/10 ML UDC GT SCH (09:38)
[2019-02-03] MEDS: HEPARIN SODIUM, PORCINE 5000 UNITS/1 ML VIAL SQ SCH ×2 (09:38→21:28)
[2019-02-03] MEDS: ASCORBIC ACID 500 MG TABLET GT SCH (09:38)
[2019-02-03] MEDS: ACIDOPHILUS/BULGARICUS 1 EACH TAB.CHEW GT SCH ×2 (09:38→21:27)
[2019-02-03] MEDS: MULTIVIT W/MINERALS 1 TAB TABLET GT SCH (09:38)
[2019-02-03] MEDS: ZINC SULFATE 220 MG CAPSULE GT SCH (09:38)
[2019-02-03] MEDS: METOPROLOL TARTRATE 25 MG TABLET GT SCH ×2 (09:59→21:00)
[2019-02-03] MEDS: DAKINS QUARTER STRENGTH (0.125%) 480 ML BOTTLE TOP SCH ×2 (10:00→21:58)
[2019-02-03] MEDS: VITAMINS A AND D 56.7 GM TUBE TP SCH ×2 (10:00→21:59)
[2019-02-03] MEDS: INSULIN DETEMIR 100 UNIT/ML CARTRIDGE SQ SCH ×2 (10:00→21:29)
[2019-02-03] MEDS: COD LIVER OIL/ZINC OXIDE 120 GM TUBE TP SCH ×2 (10:00→21:58)
[2019-02-03] MEDS: Z GUARD REMEDY 4 OZ OINT TP SCH ×4 (10:00→21:59)
--- NOTE | 2019-02-03 10:30 | NUR ---
Seen by Dr Patrick. Relayed BMP result to him. He ordered to DC NS and increase water flushes to 250 mL q 4 hours. He also ordered to DC daily BMP and check BMP on 02/06/19. Informed daughter.
[2019-02-03] MEDS: NEPRO 1,000 ML BOTTLE GT PRN (11:39)
[2019-02-03 12:00] VITALS: BP 128/54
[2019-02-03 18:56] VITALS: BP 132/91
[2019-02-03 20:34] VITALS: BP 102/56
[2019-02-03] MEDS: SENNOSIDES 8.6 MG TABLET GT SCH (21:29)
--- NOTE | 2019-02-03 21:36 | NUR ---
RT NOTE PT RECEIVED ON MECHANICAL VENTILATION. AMBU BAG/BACK UP TRACH @ BEDSIDE. TX GIVEN, NO ADVERSE REACTIONS NOTED. SX DONE, TRACH SECURED AND PATENT. NO SOB NOTED. ALARMS ON AND AUDIBLE. CONT. POX. CONNECTED. WILL MONITOR T/O SHIFT. Addendum: 02/03/19 at 2137 by MANOLO MCDONNELL RT Amended: Links added.
[2019-02-04] VITALS (7 sets, daily range): BP systolic 104–142; BP diastolic 56–69
[2019-02-04] MEDS: IPRATROPIUM NEB FS 0.5 MG/2.5 ML AMPUL.NEB NEB SCH ×4 (01:50→19:35)
[2019-02-04] MEDS: METOCLOPRAMIDE HCL 10 MG TABLET GT SCH ×4 (05:38→23:31)
[2019-02-04] MEDS: BIOTENE MOISTURIZING MM SCH ×4 (05:39→23:31)
[2019-02-04] MEDS: BLOOD SUGAR DIAGNOSTIC 1 EACH STRIP IN SCH ×4 (06:24→23:31)
[2019-02-04] MEDS: INSULIN REGULAR, HUMAN 100 UNIT/ML 3 ML VIAL SQ PRN ×4 (06:25→23:33)
[2019-02-04] MEDS: HYDROGEN PEROXIDE 480 ML BOTTLE TP SCH ×2 (09:10→21:00)
[2019-02-04] MEDS: DOCUSATE SODIUM LIQ 100 MG/10 ML UDC GT SCH (09:15)
[2019-02-04] MEDS: ACIDOPHILUS/BULGARICUS 1 EACH TAB.CHEW GT SCH ×2 (09:15→21:11)
[2019-02-04] MEDS: ASCORBIC ACID 500 MG TABLET GT SCH (09:16)
[2019-02-04] MEDS: METOPROLOL TARTRATE 25 MG TABLET GT SCH ×2 (09:16→21:11)
[2019-02-04] MEDS: Z GUARD REMEDY 4 OZ OINT TP SCH ×4 (09:16→21:59)
[2019-02-04] MEDS: ACETAMINOPHEN 650 MG/20.3 ML UDC GT SCH ×2 (09:16→21:11)
[2019-02-04] MEDS: ZINC SULFATE 220 MG CAPSULE GT SCH (09:16)
[2019-02-04] MEDS: HEPARIN SODIUM, PORCINE 5000 UNITS/1 ML VIAL SQ SCH ×2 (09:16→21:11)
[2019-02-04] MEDS: PROSOURCE / PROSTAT (PYXIS) 30 ML UDC GT SCH (09:16)
[2019-02-04] MEDS: INSULIN DETEMIR 100 UNIT/ML CARTRIDGE SQ SCH ×2 (09:16→21:25)
[2019-02-04] MEDS: MULTIVIT W/MINERALS 1 TAB TABLET GT SCH (09:16)
[2019-02-04] MEDS: COD LIVER OIL/ZINC OXIDE 120 GM TUBE TP SCH ×2 (09:17→21:59)
[2019-02-04] MEDS: VITAMINS A AND D 56.7 GM TUBE TP SCH ×2 (09:17→22:00)
[2019-02-04] MEDS: DAKINS QUARTER STRENGTH (0.125%) 480 ML BOTTLE TOP SCH ×2 (09:17→21:59)
--- NOTE | 2019-02-04 11:14 | NUR ---
RT RECEIVED PT TRACH'D ON [facility] VENT WITH SETTINGS PER MD ORDER. AIRWAYS OPERATIONS SPECIALIST DONE. SPARE TRACH AND AMBU BAG AT BEDSIDE. SX'D MOD AMOUNTS OF SECRETIONS. VENT PLUGGED INTO RED OUTLET. TX'S GIVEN ORDERED. NO ADVERSE REACTIONS OBSERVED. NO SOB NOTED AT THIS TIME. WILL CONTINUE TO MONITOR. TRACH CARE DONE. Addendum: 02/04/19 at 1740 by WILBERT MILLIGAN RT Amended: Links added.
[2019-02-04] MEDS: SENNOSIDES 8.6 MG TABLET GT SCH (21:12)
[2019-02-05 00:39] VITALS: BP 124/60
[2019-02-05] MEDS: IPRATROPIUM NEB FS 0.5 MG/2.5 ML AMPUL.NEB NEB SCH ×4 (01:17→19:56)
[2019-02-05] MEDS: BLOOD SUGAR DIAGNOSTIC 1 EACH STRIP IN SCH ×4 (05:41→23:20)
[2019-02-05] MEDS: BIOTENE MOISTURIZING MM SCH ×4 (05:41→23:20)
[2019-02-05] MEDS: METOCLOPRAMIDE HCL 10 MG TABLET GT SCH ×4 (05:41→23:20)
[2019-02-05] MEDS: INSULIN REGULAR, HUMAN 100 UNIT/ML 3 ML VIAL SQ PRN ×4 (05:42→23:21)
[2019-02-05 06:13] VITALS: BP 118/58
[2019-02-05] MEDS: MAGNESIUM HYDROXIDE 30 ML UDC GT PRN (06:34)
[2019-02-05 07:28] VITALS: BP 152/74
[2019-02-05] MEDS: HYDROGEN PEROXIDE 480 ML BOTTLE TP SCH ×2 (08:14→20:42)
[2019-02-05] MEDS: METOPROLOL TARTRATE 25 MG TABLET GT SCH ×2 (08:50→20:41)
[2019-02-05] MEDS: ACIDOPHILUS/BULGARICUS 1 EACH TAB.CHEW GT SCH ×2 (08:50→20:41)
[2019-02-05] MEDS: PROSOURCE / PROSTAT (PYXIS) 30 ML UDC GT SCH (08:50)
[2019-02-05] MEDS: MULTIVIT W/MINERALS 1 TAB TABLET GT SCH (08:50)
[2019-02-05] MEDS: ACETAMINOPHEN 650 MG/20.3 ML UDC GT SCH ×2 (08:50→20:41)
[2019-02-05] MEDS: ASCORBIC ACID 500 MG TABLET GT SCH (08:50)
[2019-02-05] MEDS: DOCUSATE SODIUM LIQ 100 MG/10 ML UDC GT SCH (08:50)
[2019-02-05] MEDS: ZINC SULFATE 220 MG CAPSULE GT SCH (08:50)
[2019-02-05] MEDS: VITAMINS A AND D 56.7 GM TUBE TP SCH ×2 (08:51→20:43)
[2019-02-05] MEDS: INSULIN DETEMIR 100 UNIT/ML CARTRIDGE SQ SCH ×2 (08:51→21:29)
[2019-02-05] MEDS: Z GUARD REMEDY 4 OZ OINT TP SCH ×4 (08:51→20:43)
[2019-02-05] MEDS: HEPARIN SODIUM, PORCINE 5000 UNITS/1 ML VIAL SQ SCH ×2 (08:51→20:42)
[2019-02-05] MEDS: DAKINS QUARTER STRENGTH (0.125%) 480 ML BOTTLE TOP SCH ×2 (09:00→20:42)
[2019-02-05] MEDS: COD LIVER OIL/ZINC OXIDE 120 GM TUBE TP SCH ×2 (09:00→20:42)
[2019-02-05 12:00] VITALS: BP 130/65
[2019-02-05 18:38] VITALS: BP 114/46
[2019-02-05] MEDS: NEPRO 1,000 ML BOTTLE GT PRN (19:00)
[2019-02-05 20:04] VITALS: BP 101/73
--- NOTE | 2019-02-05 20:25 | NUR ---
seen and examined by Maria Fernanda Mata SCRUBBING MACHINE OPERATOR,show patient left index finger with blood blister,she said inform Dr. Rosas to see patient.The right eye upper lid noted with redness with small drainage,she said if ophtamologist come tomorrow show it for treatment.
--- NOTE | 2019-02-05 21:04 | NUR ---
Pt rec'd trached on [facility] vent on AC mode. No resp distress or SOB noted. Trach is patent and secured. Sx'd mod amt of thick pale yellow secretions. Alarms are set and audible. Vent plugged into red outlet. Ambu bag bedside. Addendum: 02/05/19 at 2104 by TALA YAO RT Amended: Links added.
[2019-02-05] MEDS: SENNOSIDES 8.6 MG TABLET GT SCH (21:29)
[2019-02-06 00:30] VITALS: BP 104/53
[2019-02-06] MEDS: IPRATROPIUM NEB FS 0.5 MG/2.5 ML AMPUL.NEB NEB SCH ×4 (01:45→19:35)
[2019-02-06] MEDS: BIOTENE MOISTURIZING MM SCH ×4 (05:06→23:48)
[2019-02-06] MEDS: METOCLOPRAMIDE HCL 10 MG TABLET GT SCH ×4 (05:06→23:48)
[2019-02-06] MEDS: BLOOD SUGAR DIAGNOSTIC 1 EACH STRIP IN SCH ×4 (05:37→23:48)
[2019-02-06] MEDS: INSULIN REGULAR, HUMAN 100 UNIT/ML 3 ML VIAL SQ PRN ×4 (05:38→23:49)
[2019-02-06 06:22] VITALS: BP 119/60
[2019-02-06 07:38] VITALS: BP 139/64
[2019-02-06 07:45] LABS: CALCIUM, SERUM 9.6 mg/dL (8.5-10.1); CARBON DIOXIDE 26 mmol/L (21-32); CHLORIDE 100 mmol/L (98-107); CREATININE 1.8 mg/dL (0.6-1.3); GLUCOSE 171 mg/dL (74-106); SODIUM SERUM 136 mmol/L (136-145); UREA NITROGEN, BLOOD 66 mg/dL (7-18)
--- NOTE | 2019-02-06 08:25 | NUR ---
Per charge nurseErwin, YNES contacted Dr. Ram office [phone] to schedule Optometry apt. for today 02/06/19 after 10 am as pt. has inner R eye growth. However, the call went to voicemail and YNES communicated above stated information and left call back number.
[2019-02-06] MEDS: PROSOURCE / PROSTAT (PYXIS) 30 ML UDC GT SCH (09:23)
[2019-02-06] MEDS: METOPROLOL TARTRATE 25 MG TABLET GT SCH ×2 (09:23→20:23)
[2019-02-06] MEDS: ZINC SULFATE 220 MG CAPSULE GT SCH (09:23)
[2019-02-06] MEDS: ACETAMINOPHEN 650 MG/20.3 ML UDC GT SCH ×2 (09:23→20:23)
[2019-02-06] MEDS: MULTIVIT W/MINERALS 1 TAB TABLET GT SCH (09:23)
[2019-02-06] MEDS: ASCORBIC ACID 500 MG TABLET GT SCH (09:23)
[2019-02-06] MEDS: DOCUSATE SODIUM LIQ 100 MG/10 ML UDC GT SCH (09:23)
[2019-02-06] MEDS: ACIDOPHILUS/BULGARICUS 1 EACH TAB.CHEW GT SCH ×2 (09:23→20:23)
[2019-02-06] MEDS: HEPARIN SODIUM, PORCINE 5000 UNITS/1 ML VIAL SQ SCH ×2 (09:24→20:24)
[2019-02-06] MEDS: HYDROGEN PEROXIDE 480 ML BOTTLE TP SCH ×2 (09:27→19:35)
[2019-02-06] MEDS: INSULIN DETEMIR 100 UNIT/ML CARTRIDGE SQ SCH ×2 (09:36→20:24)
[2019-02-06] MEDS: COD LIVER OIL/ZINC OXIDE 120 GM TUBE TP SCH ×2 (10:01→20:24)
[2019-02-06] MEDS: VITAMINS A AND D 56.7 GM TUBE TP SCH ×2 (10:01→20:25)
[2019-02-06] MEDS: Z GUARD REMEDY 4 OZ OINT TP SCH ×4 (10:01→20:24)
--- NOTE | 2019-02-06 10:03 | NUR ---
Notified Dr. Ralph Fox of the blood filled blister in the L index finger and patient's R finger tips with redness and rashes. Dr. Rosas ordered duplex of the upper extremity. [facility] informed Dr. Perkins to assess patient's R eye. Resident's daughter Jennifer informed.
[2019-02-06 12:00] VITALS: BP 133/78
--- NOTE | 2019-02-06 12:45 | NUR ---
Resident seen by EUNICE Melo and assess bilateral finger specifically the R index finger and L 2nd and 5th finger tips. She said she would debride the affected finger. Consent obtain from resident' daughter Jennifer, witnessed by [address].
--- NOTE | 2019-02-06 15:25 | NUR ---
Result of the bilateral UE Doppler US reported to Dr. Ralph Fox with the following impression: patent bilateral brachial and ulnar arteries, bilateral subclavian, axillary and radial arteries could not be evaluated due to patient's contracture. NNO given.
--- NOTE | 2019-02-06 15:40 | NUR ---
The patient was seen and examined today by geological survey field assistant, Dr. Perkins [phone] at bedside for R eye growth. The optometry note was filed in patients chart. SW informed the pt.'s daughter, Jennifer Araiza [phone] regarding optometry visit and informed them that Dr. Ram office [phone] can be contacted for Dx or Tx details. Jennifer was agreeable to plan.
[2019-02-06] MEDS: NEPRO 1,000 ML BOTTLE GT PRN (17:10)
--- NOTE | 2019-02-06 17:12 | NUR ---
Pt receive stable on MV, settings are AC 15, 450, +5 PEEP at 30% FiO2, alarms are on and audible, vent is plug at red outlet, trach patent and secured, all tx given and no adverse reaction observe. Addendum: 02/06/19 at 1715 by RENEE CANO RT Amended: Links added.
[2019-02-06] MEDS: POLY B OP SCH (18:40)
[2019-02-06] MEDS: BACITRACIN OP SCH (18:40)
[2019-02-06 18:48] VITALS: BP 149/67
--- NOTE | 2019-02-06 19:35 | NUR ---
RT NOTE: RECEIVED TRACH PT ON [facility] VENT ON NOTED SETTINGS PER MD ORDERS. TRACH IS PATENT AND SECURED. TRACH CARE DONE. CARPENTER MAINTENANCE DONE. Q6 BREATHING TX GIVEN WITH NO ADVERSE REACTION NOTED. SX DONE PRN. VENT PLUGGED INTO RED OUTLET. ALARMS ON AND AUDIBLE. RODERICKU BAG @ BEDSIDE. NO RESP DISTRESS AT THIS TIME. WILL CONT TO MONITOR PT. Addendum: 02/07/19 at 0507 by PREMA SOTO RT Amended: Links added.
[2019-02-06 20:20] VITALS: BP 108/52
[2019-02-06] MEDS: SENNOSIDES 8.6 MG TABLET GT SCH (21:13)
[2019-02-07 00:04] VITALS: BP 109/73
[2019-02-07] MEDS: IPRATROPIUM NEB FS 0.5 MG/2.5 ML AMPUL.NEB NEB SCH ×4 (01:40→20:07)
[2019-02-07] MEDS: BLOOD SUGAR DIAGNOSTIC 1 EACH STRIP IN SCH ×4 (05:35→23:15)
[2019-02-07] MEDS: BIOTENE MOISTURIZING MM SCH ×4 (05:35→23:13)
[2019-02-07] MEDS: METOCLOPRAMIDE HCL 10 MG TABLET GT SCH ×4 (05:35→23:15)
[2019-02-07] MEDS: INSULIN REGULAR, HUMAN 100 UNIT/ML 3 ML VIAL SQ PRN ×3 (05:36→17:07)
[2019-02-07 06:12] VITALS: BP 130/76
[2019-02-07 07:42] VITALS: BP 128/52
--- NOTE | 2019-02-07 08:07 | NUR ---
RT NOTE: RECEIVED TRACH PT ON MECH VENT ON NOTED SETTINGS PER MD ORDERS. TRACH IS PATENT AND SECURED. TRACH CARE DONE. PHARMACEUTICAL SPECIALTY REPRESENTATIVE DONE. Q6 BREATHING TX GIVEN WITH NO ADVERSE REACTION NOTED. SX DONE PRN. VENT PLUGGED INTO RED OUTLET. ALARMS ON AND AUDIBLE. AMBU BAG @ BEDSIDE. NO RESP DISTRESS AT THIS TIME. WILL CONT TO MONITOR PT.
[2019-02-07] MEDS: HYDROGEN PEROXIDE 480 ML BOTTLE TP SCH ×2 (09:01→20:07)
[2019-02-07] MEDS: ASCORBIC ACID 500 MG TABLET GT SCH (09:39)
[2019-02-07] MEDS: ACETAMINOPHEN 650 MG/20.3 ML UDC GT SCH ×2 (09:39→21:26)
[2019-02-07] MEDS: ACIDOPHILUS/BULGARICUS 1 EACH TAB.CHEW GT SCH ×2 (09:40→21:25)
[2019-02-07] MEDS: PROSOURCE / PROSTAT (PYXIS) 30 ML UDC GT SCH (09:40)
[2019-02-07] MEDS: BACITRACIN OP SCH ×3 (09:40→17:05)
[2019-02-07] MEDS: MULTIVIT W/MINERALS 1 TAB TABLET GT SCH (09:40)
[2019-02-07] MEDS: ZINC SULFATE 220 MG CAPSULE GT SCH (09:40)
[2019-02-07] MEDS: DOCUSATE SODIUM LIQ 100 MG/10 ML UDC GT SCH (09:40)
[2019-02-07] MEDS: POLY B OP SCH ×3 (09:40→17:05)
[2019-02-07] MEDS: METOPROLOL TARTRATE 25 MG TABLET GT SCH ×2 (09:40→21:00)
[2019-02-07] MEDS: INSULIN DETEMIR 100 UNIT/ML CARTRIDGE SQ SCH ×2 (09:42→21:44)
[2019-02-07] MEDS: HEPARIN SODIUM, PORCINE 5000 UNITS/1 ML VIAL SQ SCH ×2 (09:44→21:43)
[2019-02-07] MEDS: VITAMINS A AND D 56.7 GM TUBE TP SCH ×2 (10:15→21:27)
[2019-02-07] MEDS: Z GUARD REMEDY 4 OZ OINT TP SCH ×4 (10:15→21:27)
[2019-02-07] MEDS: COD LIVER OIL/ZINC OXIDE 120 GM TUBE TP SCH ×2 (10:15→21:26)
[2019-02-07] MEDS: HYDROGEL DRESSING 90 GM TUBE TP SCH ×2 (11:47→21:26)
[2019-02-07 12:00] VITALS: BP 125/80
--- NOTE | 2019-02-07 15:33 | NUR ---
Seen and examined by Carole Dodd CONVEYOR TENDER CONCRETE MIXING PLANT for Dr. Aguirre, with order to send wound culture of R 2nd and 5th finger due to presence of pus. Order carried out.
[2019-02-07 18:27] VITALS: BP 121/54
[2019-02-07 20:20] VITALS: BP 106/54
[2019-02-07] MEDS: SENNOSIDES 8.6 MG TABLET GT SCH (21:27)
[2019-02-08] VITALS: BP 144/69
[2019-02-08] MEDS: IPRATROPIUM NEB FS 0.5 MG/2.5 ML AMPUL.NEB NEB SCH ×4 (01:37→20:20)
--- NOTE | 2019-02-08 03:58 | NUR ---
RT NOTE RECEIVED PT WITH THE NOTED CONDITION AND VENT SETTING. PT BIRDIE. VENT AND TX WELL. WILL CONTINUE WITH CURRENT PLAN OF CARE. Addendum: 02/08/19 at 0359 by NATHANAEL CARO RT Amended: Links added.
[2019-02-08] MEDS: METOCLOPRAMIDE HCL 10 MG TABLET GT SCH ×3 (05:33→17:12)
[2019-02-08] MEDS: BIOTENE MOISTURIZING MM SCH ×3 (05:34→17:12)
[2019-02-08] MEDS: BLOOD SUGAR DIAGNOSTIC 1 EACH STRIP IN SCH ×3 (05:46→17:12)
[2019-02-08 06:00] VITALS: BP 144/69
[2019-02-08 07:48] VITALS: BP 139/75
[2019-02-08] MEDS: DOCUSATE SODIUM LIQ 100 MG/10 ML UDC GT SCH (08:47)
[2019-02-08] MEDS: PROSOURCE / PROSTAT (PYXIS) 30 ML UDC GT SCH (08:47)
[2019-02-08] MEDS: ACIDOPHILUS/BULGARICUS 1 EACH TAB.CHEW GT SCH ×2 (08:47→20:43)
[2019-02-08] MEDS: MULTIVIT W/MINERALS 1 TAB TABLET GT SCH (08:47)
[2019-02-08] MEDS: ASCORBIC ACID 500 MG TABLET GT SCH (08:47)
[2019-02-08] MEDS: METOPROLOL TARTRATE 25 MG TABLET GT SCH ×2 (08:47→20:43)
[2019-02-08] MEDS: ACETAMINOPHEN 650 MG/20.3 ML UDC GT SCH ×2 (08:47→20:44)
[2019-02-08] MEDS: ZINC SULFATE 220 MG CAPSULE GT SCH (08:48)
[2019-02-08] MEDS: BACITRACIN OP SCH ×3 (08:48→17:12)
[2019-02-08] MEDS: POLY B OP SCH ×3 (08:48→17:12)
[2019-02-08] MEDS: HEPARIN SODIUM, PORCINE 5000 UNITS/1 ML VIAL SQ SCH ×2 (08:49→20:45)
[2019-02-08] MEDS: INSULIN DETEMIR 100 UNIT/ML CARTRIDGE SQ SCH ×2 (08:51→20:55)
[2019-02-08] MEDS: HYDROGEN PEROXIDE 480 ML BOTTLE TP SCH ×2 (09:00→21:00)
[2019-02-08] MEDS: Z GUARD REMEDY 4 OZ OINT TP SCH ×4 (09:20→20:48)
[2019-02-08] MEDS: COD LIVER OIL/ZINC OXIDE 120 GM TUBE TP SCH ×2 (09:20→20:48)
[2019-02-08] MEDS: HYDROGEL DRESSING 90 GM TUBE TP SCH ×2 (09:20→20:48)
[2019-02-08] MEDS: VITAMINS A AND D 56.7 GM TUBE TP SCH ×2 (09:20→20:49)
--- NOTE | 2019-02-08 09:50 | NUR ---
Seen and examined by Dr. Patrick, no new order given.
--- NOTE | 2019-02-08 10:45 | NUR ---
Seen and examined by Carole Dodd NP with new order Mupirocin topical to right 2nd and 5th finger.
--- NOTE | 2019-02-08 11:00 | NUR ---
RT NOTE: RECEIVED TRACH PT ON MECH VENT ON NOTED SETTINGS PER MD ORDERS. TRACH IS PATENT AND SECURED. TRACH CARE DONE. AUTOMOBILE SERVICE STATION MECHANIC DONE. Q6 BREATHING TX GIVEN WITH NO ADVERSE REACTION NOTED. SX DONE PRN. VENT PLUGGED INTO RED OUTLET. ALARMS ON AND AUDIBLE. AMBU BAG @ BEDSIDE. NO RESP DISTRESS AT THIS TIME. WILL CONT TO MONITOR PT.
[2019-02-08] MEDS: INSULIN REGULAR, HUMAN 100 UNIT/ML 3 ML VIAL SQ PRN ×2 (11:40→17:14)
[2019-02-08 12:00] VITALS: BP 143/72
[2019-02-08] MEDS: MUPIROCIN 2% CREAM 15 GM TUBE TP SCH ×2 (13:00→17:00)
[2019-02-08 18:06] VITALS: BP 128/77
[2019-02-08 19:54] VITALS: BP 110/75
[2019-02-08] MEDS: SENNOSIDES 8.6 MG TABLET GT SCH (22:40)
[2019-02-09 00:08] VITALS: BP 136/71
[2019-02-09] MEDS: METOCLOPRAMIDE HCL 10 MG TABLET GT SCH ×4 (00:11→17:10)
[2019-02-09] MEDS: BLOOD SUGAR DIAGNOSTIC 1 EACH STRIP IN SCH ×4 (00:11→17:10)
[2019-02-09] MEDS: BIOTENE MOISTURIZING MM SCH ×4 (00:11→17:10)
[2019-02-09] MEDS: INSULIN REGULAR, HUMAN 100 UNIT/ML 3 ML VIAL SQ PRN ×4 (00:14→17:12)
[2019-02-09] MEDS: IPRATROPIUM NEB FS 0.5 MG/2.5 ML AMPUL.NEB NEB SCH ×4 (00:40→19:25)
--- NOTE | 2019-02-09 02:31 | NUR ---
RT NOTE RECEIVED TRACH PATIENT ON MECHANICAL VENT. WITH NOTED SETTINGS. TRACH IS PATENT AND SECURED. ALARMS ARE SET AND AUDIBLE. SPARE TRACH AND BVM IS AT BEDSIDE. VENT IS PLUGGED TO RED OUTLET. SUCTION SECRETIONS PRN. TRACH CARE DONE. Q6 TREATMENTS GIVEN WITH NO ADVERSE REACTIONS. PATIENT HAS EQUAL CHEST RISE WITH COARSE BILATERAL BREATH SOUNDS. NO SOB NOTED. Addendum: 02/09/19 at 0232 by PHYLLIS WALTER RT Amended: Links added.
[2019-02-09 06:30] VITALS: BP 143/64
[2019-02-09 07:50] VITALS: BP 148/76
[2019-02-09] MEDS: ACIDOPHILUS/BULGARICUS 1 EACH TAB.CHEW GT SCH ×2 (08:52→20:59)
[2019-02-09] MEDS: DOCUSATE SODIUM LIQ 100 MG/10 ML UDC GT SCH (08:52)
[2019-02-09] MEDS: METOPROLOL TARTRATE 25 MG TABLET GT SCH ×2 (08:53→20:59)
[2019-02-09] MEDS: MULTIVIT W/MINERALS 1 TAB TABLET GT SCH (08:53)
[2019-02-09] MEDS: POLY B OP SCH ×3 (08:53→17:10)
[2019-02-09] MEDS: ASCORBIC ACID 500 MG TABLET GT SCH (08:53)
[2019-02-09] MEDS: BACITRACIN OP SCH ×3 (08:53→17:10)
[2019-02-09] MEDS: PROSOURCE / PROSTAT (PYXIS) 30 ML UDC GT SCH (08:53)
[2019-02-09] MEDS: ACETAMINOPHEN 650 MG/20.3 ML UDC GT SCH ×2 (08:53→21:00)
[2019-02-09] MEDS: HEPARIN SODIUM, PORCINE 5000 UNITS/1 ML VIAL SQ SCH ×2 (08:53→21:02)
[2019-02-09] MEDS: ZINC SULFATE 220 MG CAPSULE GT SCH (08:53)
[2019-02-09] MEDS: MUPIROCIN 2% CREAM 15 GM TUBE TP SCH ×3 (08:54→17:10)
[2019-02-09] MEDS: INSULIN DETEMIR 100 UNIT/ML CARTRIDGE SQ SCH ×2 (08:54→21:03)
[2019-02-09] MEDS: HYDROGEL DRESSING 90 GM TUBE TP SCH ×2 (09:00→21:04)
[2019-02-09] MEDS: COD LIVER OIL/ZINC OXIDE 120 GM TUBE TP SCH ×2 (09:00→21:04)
[2019-02-09] MEDS: HYDROGEN PEROXIDE 480 ML BOTTLE TP SCH ×2 (09:00→21:13)
[2019-02-09] MEDS: VITAMINS A AND D 56.7 GM TUBE TP SCH ×2 (09:00→21:04)
[2019-02-09] MEDS: Z GUARD REMEDY 4 OZ OINT TP SCH ×4 (09:00→21:04)
--- NOTE | 2019-02-09 10:41 | NUR ---
RT NOTE RECEIVED PT MECHANICALLY VENTILATED VIA CUFFED TRACHEOSTOMY TUBE. CUFF INFLATED. TRACH TUBE MIDLINE AND SECURE. VENTILATOR SETTINGS PRESCRIBED. ALARMS SET PER PROTOCOL AND AUDIBLE. VENT PLUGGED IN TO RED OUTLET. AMBU BAG AT BED SIDE. NO DISTRESS NOTED. Addendum: 02/09/19 at 1042 by JYOTHI RICHARDS RT Amended: Links added.
[2019-02-09 12:00] VITALS: BP 123/85
[2019-02-09] MEDS: NEPRO 1,000 ML BOTTLE GT PRN (12:03)
--- NOTE | 2019-02-09 12:50 | NUR ---
Pt placed on contact isolation for MRSA right 2nd and 5th finger wounds. ARTIST'S REPRESENTATIVE Beatrice Krishnamurthy ordered to give Vancomycin IV, pharmacy to dose. Notified pt's daughter Jennifer.
--- NOTE | 2019-02-09 15:45 | NUR ---
Peripheral IV line G 22 started on JAVIER. Received order to give Vancomycin 1 gm IV q 48 hours x 5 days per protocol (3 doses total).
[2019-02-09] MEDS: VANCOMYCIN 1 GM in IV D5W 250ml IV SCH (16:30)
[2019-02-09 18:13] VITALS: BP 132/69
[2019-02-09 19:40] VITALS: BP 133/70
[2019-02-09] MEDS: SENNOSIDES 8.6 MG TABLET GT SCH (21:05)
[2019-02-10] MEDS: METOCLOPRAMIDE HCL 10 MG TABLET GT SCH ×4 (00:33→17:08)
[2019-02-10] MEDS: BIOTENE MOISTURIZING MM SCH ×4 (00:33→17:09)
[2019-02-10] MEDS: BLOOD SUGAR DIAGNOSTIC 1 EACH STRIP IN SCH ×4 (00:33→17:08)
[2019-02-10] MEDS: INSULIN REGULAR, HUMAN 100 UNIT/ML 3 ML VIAL SQ PRN ×4 (00:35→17:08)
[2019-02-10] MEDS: IPRATROPIUM NEB FS 0.5 MG/2.5 ML AMPUL.NEB NEB SCH ×4 (00:45→19:59)
[2019-02-10 00:46] VITALS: BP 135/74
[2019-02-10 06:37] VITALS: BP 145/65
[2019-02-10 07:48] VITALS: BP 122/51
[2019-02-10] MEDS: VITAMINS A AND D 56.7 GM TUBE TP SCH ×2 (09:00→20:23)
[2019-02-10] MEDS: MUPIROCIN 2% CREAM 15 GM TUBE TP SCH ×3 (09:00→16:32)
[2019-02-10] MEDS: HYDROGEL DRESSING 90 GM TUBE TP SCH ×2 (09:00→20:22)
[2019-02-10] MEDS: COD LIVER OIL/ZINC OXIDE 120 GM TUBE TP SCH ×2 (09:00→20:22)
[2019-02-10] MEDS: Z GUARD REMEDY 4 OZ OINT TP SCH ×4 (09:00→20:22)
[2019-02-10] MEDS: HYDROGEN PEROXIDE 480 ML BOTTLE TP SCH ×2 (09:00→19:59)
[2019-02-10] MEDS: DOCUSATE SODIUM LIQ 100 MG/10 ML UDC GT SCH (09:30)
[2019-02-10] MEDS: ACIDOPHILUS/BULGARICUS 1 EACH TAB.CHEW GT SCH ×2 (09:30→20:18)
[2019-02-10] MEDS: ASCORBIC ACID 500 MG TABLET GT SCH (09:31)
[2019-02-10] MEDS: METOPROLOL TARTRATE 25 MG TABLET GT SCH ×2 (09:31→20:19)
[2019-02-10] MEDS: BACITRACIN OP SCH ×3 (09:31→16:31)
[2019-02-10] MEDS: MULTIVIT W/MINERALS 1 TAB TABLET GT SCH (09:31)
[2019-02-10] MEDS: PROSOURCE / PROSTAT (PYXIS) 30 ML UDC GT SCH (09:31)
[2019-02-10] MEDS: ZINC SULFATE 220 MG CAPSULE GT SCH (09:31)
[2019-02-10] MEDS: ACETAMINOPHEN 650 MG/20.3 ML UDC GT SCH ×2 (09:31→20:20)
[2019-02-10] MEDS: POLY B OP SCH ×3 (09:31→16:31)
[2019-02-10] MEDS: HEPARIN SODIUM, PORCINE 5000 UNITS/1 ML VIAL SQ SCH ×2 (09:32→20:21)
[2019-02-10] MEDS: INSULIN DETEMIR 100 UNIT/ML CARTRIDGE SQ SCH ×2 (09:33→20:31)
[2019-02-10 12:00] VITALS: BP 126/69
--- NOTE | 2019-02-10 13:47 | NUR ---
Late entry for 02/09/19 Staff and pt's daughter educated regarding isolation precautions, wearing PPE and handwashing.
[2019-02-10 18:00] VITALS: BP 147/57
[2019-02-10] MEDS: MAGNESIUM HYDROXIDE 30 ML UDC GT PRN (18:52)
[2019-02-10 20:01] VITALS: BP 100/73
[2019-02-10] MEDS: SENNOSIDES 8.6 MG TABLET GT SCH (21:46)
[2019-02-11] MEDS: METOCLOPRAMIDE HCL 10 MG TABLET GT SCH ×5 (00:40→23:42)
[2019-02-11] MEDS: BLOOD SUGAR DIAGNOSTIC 1 EACH STRIP IN SCH ×5 (00:40→23:42)
[2019-02-11] MEDS: BIOTENE MOISTURIZING MM SCH ×5 (00:40→23:42)
[2019-02-11] MEDS: INSULIN REGULAR, HUMAN 100 UNIT/ML 3 ML VIAL SQ PRN ×5 (00:42→23:43)
[2019-02-11 00:57] VITALS: BP 121/71
[2019-02-11] MEDS: IPRATROPIUM NEB FS 0.5 MG/2.5 ML AMPUL.NEB NEB SCH ×4 (02:08→20:29)
[2019-02-11] MEDS: NEPRO 1,000 ML BOTTLE GT PRN (04:20)
[2019-02-11 06:14] VITALS: BP 152/81
[2019-02-11 07:53] VITALS: BP 143/75
[2019-02-11] MEDS: HYDROGEN PEROXIDE 480 ML BOTTLE TP SCH ×2 (08:15→21:00)
[2019-02-11] MEDS: BACITRACIN OP SCH ×3 (09:00→17:00)
[2019-02-11] MEDS: COD LIVER OIL/ZINC OXIDE 120 GM TUBE TP SCH ×2 (09:00→21:34)
[2019-02-11] MEDS: Z GUARD REMEDY 4 OZ OINT TP SCH ×4 (09:00→21:34)
[2019-02-11] MEDS: MUPIROCIN 2% CREAM 15 GM TUBE TP SCH ×3 (09:00→17:00)
[2019-02-11] MEDS: VITAMINS A AND D 56.7 GM TUBE TP SCH ×2 (09:00→21:34)
[2019-02-11] MEDS: POLY B OP SCH ×3 (09:00→17:00)
[2019-02-11] MEDS: ACIDOPHILUS/BULGARICUS 1 EACH TAB.CHEW GT SCH ×2 (09:08→21:22)
[2019-02-11] MEDS: ACETAMINOPHEN 650 MG/20.3 ML UDC GT SCH ×2 (09:08→21:23)
[2019-02-11] MEDS: MULTIVIT W/MINERALS 1 TAB TABLET GT SCH (09:08)
[2019-02-11] MEDS: PROSOURCE / PROSTAT (PYXIS) 30 ML UDC GT SCH (09:08)
[2019-02-11] MEDS: DOCUSATE SODIUM LIQ 100 MG/10 ML UDC GT SCH (09:08)
[2019-02-11] MEDS: HEPARIN SODIUM, PORCINE 5000 UNITS/1 ML VIAL SQ SCH ×2 (09:09→21:26)
[2019-02-11] MEDS: ASCORBIC ACID 500 MG TABLET GT SCH (09:09)
[2019-02-11] MEDS: ZINC SULFATE 220 MG CAPSULE GT SCH (09:09)
[2019-02-11] MEDS: METOPROLOL TARTRATE 25 MG TABLET GT SCH ×2 (09:34→21:23)
[2019-02-11] MEDS: INSULIN DETEMIR 100 UNIT/ML CARTRIDGE SQ SCH ×2 (09:34→21:34)
[2019-02-11] MEDS: HYDROGEL DRESSING 90 GM TUBE TP SCH ×2 (09:40→21:34)
[2019-02-11 12:00] VITALS: BP 120/60
[2019-02-11] MEDS: VANCOMYCIN 1 GM in IV D5W 250ml IV SCH (16:30)
[2019-02-11 18:00] VITALS: BP 124/55
[2019-02-11] MEDS: SENNOSIDES 8.6 MG TABLET GT SCH (21:34)
[2019-02-12 00:20] VITALS: BP 91/65
--- NOTE | 2019-02-12 00:38 | NUR ---
Pt rec'd trached on [facility] vent on AC mode. No resp distress or sob noted. Trach is patent and secured. Sx'd for thick mod amt of pale yellow secretions. Alarms are set and audible. Vent plugged into red outlet. Ambu bag bedside. Will continue to monitor. Addendum: 02/12/19 at 0038 by TALA YAO RT Amended: Links added.
[2019-02-12] MEDS: IPRATROPIUM NEB FS 0.5 MG/2.5 ML AMPUL.NEB NEB SCH ×4 (02:23→19:36)
[2019-02-12] MEDS: BIOTENE MOISTURIZING MM SCH ×3 (05:36→17:11)
[2019-02-12] MEDS: BLOOD SUGAR DIAGNOSTIC 1 EACH STRIP IN SCH ×3 (05:36→17:11)
[2019-02-12] MEDS: METOCLOPRAMIDE HCL 10 MG TABLET GT SCH ×3 (05:36→17:11)
[2019-02-12] MEDS: INSULIN REGULAR, HUMAN 100 UNIT/ML 3 ML VIAL SQ PRN ×3 (05:39→17:14)
[2019-02-12 06:38] VITALS: BP 146/66
[2019-02-12] MEDS: NEPRO 1,000 ML BOTTLE GT PRN (06:42)
[2019-02-12 07:21] VITALS: BP 153/71
[2019-02-12] MEDS: HYDROGEN PEROXIDE 480 ML BOTTLE TP SCH ×2 (08:05→20:41)
[2019-02-12] MEDS: NYSTATIN/TRIAMCIN 15 GM CREAM 15 GM TUBE TP SCH ×2 (09:00→22:00)
[2019-02-12] MEDS: ZINC SULFATE 220 MG CAPSULE GT SCH (09:34)
[2019-02-12] MEDS: ACETAMINOPHEN 650 MG/20.3 ML UDC GT SCH ×2 (09:34→20:59)
[2019-02-12] MEDS: PROSOURCE / PROSTAT (PYXIS) 30 ML UDC GT SCH (09:34)
[2019-02-12] MEDS: ASCORBIC ACID 500 MG TABLET GT SCH (09:34)
[2019-02-12] MEDS: METOPROLOL TARTRATE 25 MG TABLET GT SCH ×2 (09:34→20:59)
[2019-02-12] MEDS: ACIDOPHILUS/BULGARICUS 1 EACH TAB.CHEW GT SCH ×2 (09:34→20:58)
[2019-02-12] MEDS: DOCUSATE SODIUM LIQ 100 MG/10 ML UDC GT SCH (09:34)
[2019-02-12] MEDS: MULTIVIT W/MINERALS 1 TAB TABLET GT SCH (09:34)
[2019-02-12] MEDS: BACITRACIN OP SCH ×3 (09:35→17:10)
[2019-02-12] MEDS: POLY B OP SCH ×3 (09:35→17:10)
[2019-02-12] MEDS: INSULIN DETEMIR 100 UNIT/ML CARTRIDGE SQ SCH ×2 (09:36→22:00)
[2019-02-12] MEDS: HEPARIN SODIUM, PORCINE 5000 UNITS/1 ML VIAL SQ SCH ×2 (09:36→20:59)
[2019-02-12] MEDS: MUPIROCIN 2% CREAM 15 GM TUBE TP SCH ×3 (09:37→17:11)
[2019-02-12] MEDS: HYDROGEL DRESSING 90 GM TUBE TP SCH ×2 (09:38→22:00)
[2019-02-12] MEDS: COD LIVER OIL/ZINC OXIDE 120 GM TUBE TP SCH ×2 (09:38→22:00)
[2019-02-12] MEDS: Z GUARD REMEDY 4 OZ OINT TP SCH ×6 (09:39→22:00)
[2019-02-12] MEDS: VITAMINS A AND D 56.7 GM TUBE TP SCH ×2 (09:39→22:00)
[2019-02-12 12:00] VITALS: BP 140/66
[2019-02-12 18:00] VITALS: BP 141/68
--- NOTE | 2019-02-12 19:36 | NUR ---
RT NOTE PATIENT RECEIVED TRACH'D IN STABLE CONDITION. PATIENT TOLERATING CURRENT ORDERED VENT SETTINGS. NO SIGNS OF RESPIRATORY DISTRESS NOTED. TRACH IS PATENT AND SECURE. ALARMS ARE SET AND AUDIBLE. VENT IS PLUGGED INTO RED OUTLET. EMERGENCY EQUIPMENT IS AT PATIENT BEDSIDE. WILL CONTINUE TO MONITOR. Addendum: 02/12/19 at 204 by SALINAS MAGAÑA RT Amended: Links added.
[2019-02-12 20:42] VITALS: BP 135/54
[2019-02-12] MEDS: SENNOSIDES 8.6 MG TABLET GT SCH (22:06)
[2019-02-13] VITALS (7 sets, daily range): BP systolic 123–160; BP diastolic 51–76
[2019-02-13] MEDS: BIOTENE MOISTURIZING MM SCH ×5 (00:10→23:24)
[2019-02-13] MEDS: METOCLOPRAMIDE HCL 10 MG TABLET GT SCH ×5 (00:10→23:24)
[2019-02-13] MEDS: BLOOD SUGAR DIAGNOSTIC 1 EACH STRIP IN SCH ×5 (00:10→23:24)
[2019-02-13] MEDS: INSULIN REGULAR, HUMAN 100 UNIT/ML 3 ML VIAL SQ PRN ×4 (00:12→23:25)
[2019-02-13] MEDS: IPRATROPIUM NEB FS 0.5 MG/2.5 ML AMPUL.NEB NEB SCH ×4 (01:31→19:21)
[2019-02-13] MEDS: NEPRO 1,000 ML BOTTLE GT PRN (06:00)
[2019-02-13 07:11] LABS: BASOPHILS % (AUTO) 0.4 % (0.0-2.0); EOSINOPHILS % (AUTO) 1.3 % (0.0-6.0); HEMATOCRIT 31 % (33-45); LYMPHOCYTES # (AUTO) 2.1 /CMM (0.8-4.8); LYMPHOCYTES % (AUTO) 20.5 % (20.0-44.0); MEAN CORPUSCULAR HGB CONC 32 g/dl (31.0-36.0); MEAN CORPUSCULAR VOLUME 80 fL (82-100); MONOCYTES # (AUTO) 0.7 /CMM (0.1-1.30); MONOCYTES % (AUTO) 7.4 % (2.0-12.0); NEUTROPHILS # (AUTO) 7.1 /CMM (1.8-8.9); NEUTROPHILS % (AUTO) 70.4 % (43.0-81.0); PLATELET COUNT (AUTO) 270 /CMM (150-450); RED BLOOD CELL COUNT(AUTO) 3.91 MIL/uL (4.0-5.2); WHITE BLOOD COUNT (AUTO) 10.1 K/uL (4.3-11.0)
[2019-02-13 07:15] LABS: CARBON DIOXIDE 23 mmol/L (21-32); CHLORIDE 97 mmol/L (98-107); CREATININE 2.3 mg/dL (0.6-1.3); GLUCOSE 168 mg/dL (74-106); MAGNESIUM 3.3 mg/dL (1.8-2.4); PHOSPHORUS 2.7 mg/dL (2.5-4.9); POTASSIUM 4.1 mmol/L (3.5-5.1); SODIUM SERUM 133 mmol/L (136-145)
[2019-02-13 07:17] LABS: UREA NITROGEN, BLOOD 88 mg/dL (7-18)
[2019-02-13] MEDS: HYDROGEN PEROXIDE 480 ML BOTTLE TP SCH ×2 (07:18→21:06)
[2019-02-13] MEDS: VITAMINS A AND D 56.7 GM TUBE TP SCH ×2 (09:00→21:11)
[2019-02-13] MEDS: ZINC SULFATE 220 MG CAPSULE GT SCH (09:30)
[2019-02-13] MEDS: PROSOURCE / PROSTAT (PYXIS) 30 ML UDC GT SCH (09:30)
[2019-02-13] MEDS: DOCUSATE SODIUM LIQ 100 MG/10 ML UDC GT SCH (09:30)
[2019-02-13] MEDS: MULTIVIT W/MINERALS 1 TAB TABLET GT SCH (09:30)
[2019-02-13] MEDS: POLY B OP SCH ×3 (09:30→17:45)
[2019-02-13] MEDS: ACIDOPHILUS/BULGARICUS 1 EACH TAB.CHEW GT SCH ×2 (09:30→21:04)
[2019-02-13] MEDS: METOPROLOL TARTRATE 25 MG TABLET GT SCH ×2 (09:30→21:05)
[2019-02-13] MEDS: ACETAMINOPHEN 650 MG/20.3 ML UDC GT SCH ×2 (09:30→21:05)
[2019-02-13] MEDS: ASCORBIC ACID 500 MG TABLET GT SCH (09:30)
[2019-02-13] MEDS: BACITRACIN OP SCH ×3 (09:30→17:45)
[2019-02-13] MEDS: HEPARIN SODIUM, PORCINE 5000 UNITS/1 ML VIAL SQ SCH ×2 (09:31→21:05)
[2019-02-13] MEDS: INSULIN DETEMIR 100 UNIT/ML CARTRIDGE SQ SCH ×2 (09:31→21:09)
[2019-02-13] MEDS: HYDROGEL DRESSING 90 GM TUBE TP SCH ×2 (10:00→21:09)
[2019-02-13] MEDS: NYSTATIN/TRIAMCIN 15 GM CREAM 15 GM TUBE TP SCH ×2 (10:00→21:10)
[2019-02-13] MEDS: MUPIROCIN 2% CREAM 15 GM TUBE TP SCH ×3 (10:00→17:45)
[2019-02-13] MEDS: COD LIVER OIL/ZINC OXIDE 120 GM TUBE TP SCH ×2 (10:00→21:10)
[2019-02-13] MEDS: Z GUARD REMEDY 4 OZ OINT TP SCH ×6 (10:00→21:20)
[2019-02-13 16:28] LABS: CREATININE 2.2 mg/dL (0.6-1.3)
--- NOTE | 2019-02-13 16:30 | NUR ---
Asked FISHER OYSTER Sydnee Dodd to reassess Vancomycin since today is the last dose. Order given to give last dose and no further dosing needed.
--- NOTE | 2019-02-13 16:42 | NUR ---
RT NOTE: RECEIVED PT ON ORDERED NOTED VENT SETTINGS. NO RESPIRATORY DISTRESS NOTED. TRACH CHECKED SECURE AND PATENT. SXD AND LAVAGED PT Q ROUND AND NEEDED. TXS GIVEN ORDERED WITH NO ADVERSE REACTIONS NOTED. TRACH CARE DONE. SPARE TRACH AND AMBU BAG @ BEDSIDE. ALARMS CHECKED AND AUDIBLE. VENT PLUGGED INTO RED OUTLET.
[2019-02-13] MEDS: VANCOMYCIN 1 GM in IV D5W 250ml IV SCH (17:04)
--- NOTE | 2019-02-13 19:50 | NUR ---
Seen and examined by Dr. Patrick no new orders.
[2019-02-13] MEDS: SENNOSIDES 8.6 MG TABLET GT SCH (21:11)
[2019-02-14 00:30] VITALS: BP 113/55
[2019-02-14] MEDS: IPRATROPIUM NEB FS 0.5 MG/2.5 ML AMPUL.NEB NEB SCH ×4 (01:28→19:59)
--- NOTE | 2019-02-14 05:15 | NUR ---
RT Patient remained on continuous vent support on noted vent settings.Patient stable throughout the shift. Trach is patent and secured.Will continue to monitor. Addendum: 02/14/19 at 0518 by NYA RICHARDS RT Amended: Links added.
[2019-02-14] MEDS: BLOOD SUGAR DIAGNOSTIC 1 EACH STRIP IN SCH ×4 (05:47→23:34)
[2019-02-14] MEDS: METOCLOPRAMIDE HCL 10 MG TABLET GT SCH ×4 (05:47→23:34)
[2019-02-14] MEDS: BIOTENE MOISTURIZING MM SCH ×4 (05:47→23:34)
[2019-02-14] MEDS: INSULIN REGULAR, HUMAN 100 UNIT/ML 3 ML VIAL SQ PRN ×4 (05:49→23:36)
[2019-02-14 06:18] VITALS: BP 101/58
[2019-02-14 07:04] LABS: BASOPHILS % (AUTO) 0.3 % (0.0-2.0); EOSINOPHILS % (AUTO) 2.1 % (0.0-6.0); HEMATOCRIT 30 % (33-45); HEMOGLOBIN 9.6 g/dL (11.5-14.8); LYMPHOCYTES # (AUTO) 1.6 /CMM (0.8-4.8); LYMPHOCYTES % (AUTO) 17.1 % (20.0-44.0); MEAN CORPUSCULAR HGB CONC 32 g/dl (31.0-36.0); MEAN CORPUSCULAR VOLUME 81 fL (82-100); MONOCYTES # (AUTO) 0.8 /CMM (0.1-1.30); MONOCYTES % (AUTO) 8.5 % (2.0-12.0); NEUTROPHILS # (AUTO) 6.9 /CMM (1.8-8.9); PLATELET COUNT (AUTO) 217 /CMM (150-450); RED BLOOD CELL COUNT(AUTO) 3.73 MIL/uL (4.0-5.2); WHITE BLOOD COUNT (AUTO) 9.5 K/uL (4.3-11.0)
[2019-02-14 07:16] LABS: CALCIUM, SERUM 9.5 mg/dL (8.5-10.1); CARBON DIOXIDE 23 mmol/L (21-32); CHLORIDE 97 mmol/L (98-107); CREATININE 2.3 mg/dL (0.6-1.3); GLUCOSE 160 mg/dL (74-106); MAGNESIUM 3.6 mg/dL (1.8-2.4); PHOSPHORUS 4.8 mg/dL (2.5-4.9); POTASSIUM 4.3 mmol/L (3.5-5.1); SODIUM SERUM 134 mmol/L (136-145)
[2019-02-14] MEDS: HYDROGEN PEROXIDE 480 ML BOTTLE TP SCH ×2 (07:19→21:00)
[2019-02-14 07:20] LABS: UREA NITROGEN, BLOOD 92 mg/dL (7-18)
[2019-02-14 07:39] VITALS: BP 135/65
[2019-02-14 09:16] LABS: BAND % (MANUAL) 3 % (0.0-5.0); EOSINOPHILS % (MANUAL) 1 % (0-4); LYMPHOCYTES % (MANUAL) 19 % (16-48); MONOCYTES % (MANUAL) 6 % (0-11.0); NEUTROPHILS % (MANUAL) 71 (42-76)
[2019-02-14] MEDS: ACIDOPHILUS/BULGARICUS 1 EACH TAB.CHEW GT SCH ×2 (09:22→21:26)
[2019-02-14] MEDS: DOCUSATE SODIUM LIQ 100 MG/10 ML UDC GT SCH (09:22)
[2019-02-14] MEDS: ASCORBIC ACID 500 MG TABLET GT SCH (09:23)
[2019-02-14] MEDS: POLY B OP SCH ×3 (09:23→17:56)
[2019-02-14] MEDS: PROSOURCE / PROSTAT (PYXIS) 30 ML UDC GT SCH (09:23)
[2019-02-14] MEDS: MULTIVIT W/MINERALS 1 TAB TABLET GT SCH (09:23)
[2019-02-14] MEDS: ZINC SULFATE 220 MG CAPSULE GT SCH (09:23)
[2019-02-14] MEDS: BACITRACIN OP SCH ×3 (09:23→17:56)
[2019-02-14] MEDS: METOPROLOL TARTRATE 25 MG TABLET GT SCH ×2 (09:23→21:26)
[2019-02-14] MEDS: ACETAMINOPHEN 650 MG/20.3 ML UDC GT SCH ×2 (09:23→21:26)
[2019-02-14] MEDS: HEPARIN SODIUM, PORCINE 5000 UNITS/1 ML VIAL SQ SCH ×2 (09:23→21:27)
[2019-02-14] MEDS: INSULIN DETEMIR 100 UNIT/ML CARTRIDGE SQ SCH ×2 (09:24→21:28)
[2019-02-14] MEDS: NYSTATIN/TRIAMCIN 15 GM CREAM 15 GM TUBE TP SCH ×2 (10:00→21:28)
[2019-02-14] MEDS: COD LIVER OIL/ZINC OXIDE 120 GM TUBE TP SCH ×2 (10:00→21:28)
[2019-02-14] MEDS: VITAMINS A AND D 56.7 GM TUBE TP SCH ×2 (10:00→21:29)
[2019-02-14] MEDS: Z GUARD REMEDY 4 OZ OINT TP SCH ×6 (10:00→21:29)
[2019-02-14] MEDS: MUPIROCIN 2% CREAM 15 GM TUBE TP SCH ×3 (10:00→17:56)
[2019-02-14] MEDS: HYDROGEL DRESSING 90 GM TUBE TP SCH ×2 (10:00→21:28)
[2019-02-14 12:00] VITALS: BP 152/51
[2019-02-14 18:00] VITALS: BP 138/53
[2019-02-14 19:40] VITALS: BP 124/57
[2019-02-14] MEDS: SENNOSIDES 8.6 MG TABLET GT SCH (21:29)
[2019-02-15 00:20] VITALS: BP 129/61
[2019-02-15] MEDS: IPRATROPIUM NEB FS 0.5 MG/2.5 ML AMPUL.NEB NEB SCH ×4 (01:06→19:25)
--- NOTE | 2019-02-15 03:48 | NUR ---
Pt receive stable on MV, vent plug on red outlet, spare trach and ambu bag is at bedside, trach patent and secured will continue to monitor. Addendum: 02/15/19 at 0350 by RENEE CANO RT Amended: Links added.
[2019-02-15] MEDS: BIOTENE MOISTURIZING MM SCH ×4 (05:56→23:46)
[2019-02-15] MEDS: BLOOD SUGAR DIAGNOSTIC 1 EACH STRIP IN SCH ×4 (05:56→23:45)
[2019-02-15] MEDS: METOCLOPRAMIDE HCL 10 MG TABLET GT SCH ×4 (05:56→23:45)
[2019-02-15] MEDS: INSULIN REGULAR, HUMAN 100 UNIT/ML 3 ML VIAL SQ PRN ×4 (05:57→23:47)
[2019-02-15] MEDS: NEPRO 1,000 ML BOTTLE GT PRN (06:04)
[2019-02-15 07:18] VITALS: BP 118/61
[2019-02-15 07:31] VITALS: BP 118/52
[2019-02-15] MEDS: HYDROGEL DRESSING 90 GM TUBE TP SCH ×2 (09:00→21:16)
[2019-02-15] MEDS: VITAMINS A AND D 56.7 GM TUBE TP SCH ×2 (09:00→21:17)
[2019-02-15] MEDS: COD LIVER OIL/ZINC OXIDE 120 GM TUBE TP SCH ×2 (09:00→21:16)
[2019-02-15] MEDS: HYDROGEN PEROXIDE 480 ML BOTTLE TP SCH ×2 (09:00→21:16)
[2019-02-15] MEDS: Z GUARD REMEDY 4 OZ OINT TP SCH ×6 (09:00→21:17)
[2019-02-15] MEDS: NYSTATIN/TRIAMCIN 15 GM CREAM 15 GM TUBE TP SCH ×2 (09:00→21:16)
[2019-02-15] MEDS: MUPIROCIN 2% CREAM 15 GM TUBE TP SCH ×3 (09:00→16:57)
[2019-02-15] MEDS: POLY B OP SCH ×3 (09:00→16:57)
[2019-02-15] MEDS: BACITRACIN OP SCH ×3 (09:00→16:57)
[2019-02-15] MEDS: PROSOURCE / PROSTAT (PYXIS) 30 ML UDC GT SCH (09:03)
[2019-02-15] MEDS: ACETAMINOPHEN 650 MG/20.3 ML UDC GT SCH ×2 (09:03→21:15)
[2019-02-15] MEDS: DOCUSATE SODIUM LIQ 100 MG/10 ML UDC GT SCH (09:03)
[2019-02-15] MEDS: ASCORBIC ACID 500 MG TABLET GT SCH (09:03)
[2019-02-15] MEDS: METOPROLOL TARTRATE 25 MG TABLET GT SCH ×2 (09:03→21:15)
[2019-02-15] MEDS: ACIDOPHILUS/BULGARICUS 1 EACH TAB.CHEW GT SCH ×2 (09:03→21:15)
[2019-02-15] MEDS: MULTIVIT W/MINERALS 1 TAB TABLET GT SCH (09:03)
[2019-02-15] MEDS: ZINC SULFATE 220 MG CAPSULE GT SCH (09:03)
[2019-02-15] MEDS: HEPARIN SODIUM, PORCINE 5000 UNITS/1 ML VIAL SQ SCH ×2 (09:05→21:16)
[2019-02-15] MEDS: INSULIN DETEMIR 100 UNIT/ML CARTRIDGE SQ SCH ×2 (09:06→21:16)
[2019-02-15 15:05] VITALS: BP 115/70
[2019-02-15 18:20] VITALS: BP 108/61
[2019-02-15 20:27] VITALS: BP 137/52
[2019-02-15] MEDS: SENNOSIDES 8.6 MG TABLET GT SCH (21:17)
[2019-02-16 00:29] VITALS: BP 129/62
[2019-02-16] MEDS: IPRATROPIUM NEB FS 0.5 MG/2.5 ML AMPUL.NEB NEB SCH ×4 (01:40→20:04)
--- NOTE | 2019-02-16 05:28 | NUR ---
RT Patient was received on continuous vent support on noted vent settings . Trach is patent and secured. Patient stable throughout the shift. Will continue to monitor. Addendum: 02/16/19 at 0529 by NYA RICHARDS RT Amended: Links added.
[2019-02-16] MEDS: BLOOD SUGAR DIAGNOSTIC 1 EACH STRIP IN SCH ×4 (05:48→23:07)
[2019-02-16] MEDS: METOCLOPRAMIDE HCL 10 MG TABLET GT SCH ×4 (05:48→23:06)
[2019-02-16] MEDS: INSULIN REGULAR, HUMAN 100 UNIT/ML 3 ML VIAL SQ PRN ×4 (05:49→23:07)
[2019-02-16] MEDS: BIOTENE MOISTURIZING MM SCH ×4 (05:49→23:07)
[2019-02-16 06:07] VITALS: BP 126/68
[2019-02-16 07:40] VITALS: BP 122/60
[2019-02-16] MEDS: MULTIVIT W/MINERALS 1 TAB TABLET GT SCH (09:00)
[2019-02-16] MEDS: MUPIROCIN 2% CREAM 15 GM TUBE TP SCH ×3 (09:00→16:53)
[2019-02-16] MEDS: PROSOURCE / PROSTAT (PYXIS) 30 ML UDC GT SCH (09:00)
[2019-02-16] MEDS: DOCUSATE SODIUM LIQ 100 MG/10 ML UDC GT SCH (09:00)
[2019-02-16] MEDS: VITAMINS A AND D 56.7 GM TUBE TP SCH ×2 (09:00→21:11)
[2019-02-16] MEDS: ACIDOPHILUS/BULGARICUS 1 EACH TAB.CHEW GT SCH ×2 (09:00→21:09)
[2019-02-16] MEDS: ASCORBIC ACID 500 MG TABLET GT SCH (09:00)
[2019-02-16] MEDS: BACITRACIN OP SCH ×3 (09:00→16:52)
[2019-02-16] MEDS: NYSTATIN/TRIAMCIN 15 GM CREAM 15 GM TUBE TP SCH ×2 (09:00→21:11)
[2019-02-16] MEDS: ZINC SULFATE 220 MG CAPSULE GT SCH (09:00)
[2019-02-16] MEDS: METOPROLOL TARTRATE 25 MG TABLET GT SCH ×2 (09:00→21:09)
[2019-02-16] MEDS: HEPARIN SODIUM, PORCINE 5000 UNITS/1 ML VIAL SQ SCH ×2 (09:00→21:10)
[2019-02-16] MEDS: HYDROGEL DRESSING 90 GM TUBE TP SCH ×2 (09:00→21:11)
[2019-02-16] MEDS: Z GUARD REMEDY 4 OZ OINT TP SCH ×6 (09:00→21:11)
[2019-02-16] MEDS: HYDROGEN PEROXIDE 480 ML BOTTLE TP SCH ×2 (09:00→20:11)
[2019-02-16] MEDS: INSULIN DETEMIR 100 UNIT/ML CARTRIDGE SQ SCH ×2 (09:00→21:10)
[2019-02-16] MEDS: ACETAMINOPHEN 650 MG/20.3 ML UDC GT SCH ×2 (09:00→21:09)
[2019-02-16] MEDS: POLY B OP SCH ×3 (09:00→16:52)
[2019-02-16] MEDS: COD LIVER OIL/ZINC OXIDE 120 GM TUBE TP SCH ×2 (09:00→21:11)
[2019-02-16] MEDS: NEPRO 1,000 ML BOTTLE GT PRN (12:42)
--- NOTE | 2019-02-16 14:42 | NUR ---
RT NOTE PT REMAINS MECHANICALLY VENTILATED VIA CUFFED TRACHEOSTOMY TUBE. CUFF INFLATED. TRACH TUBE MIDLINE AND SECURE. VENTILATOR SETTINGS PRESCRIBED. ALARMS SET PER PROTOCOL AND AUDIBLE. VENT PLUGGED IN TO RED OUTLET. AMBU BAG AT BED SIDE. NO DISTRESS NOTED. Addendum: 02/16/19 at 1442 by JYOTHI RICHARDS RT Amended: Links added.
[2019-02-16 14:59] VITALS: BP 115/80
[2019-02-16 18:39] VITALS: BP 118/75
[2019-02-16 20:19] VITALS: BP 105/50
[2019-02-16] MEDS: SENNOSIDES 8.6 MG TABLET GT SCH (21:11)
[2019-02-17] MEDS: IPRATROPIUM NEB FS 0.5 MG/2.5 ML AMPUL.NEB NEB SCH ×4 (01:56→19:34)
[2019-02-17 03:04] VITALS: BP 122/70
--- NOTE | 2019-02-17 03:48 | NUR ---
RT NOTE Pt rec'd trached on [facility] vent on AC mode. No resp distress or sob noted. Trach is patent and secured. Sx'd for thick small amt of pale yellow secretions. Vent plugged into red outlet. Alarms are set and audible. Ambu bag bedside. Will continue to monitor. Addendum: 02/17/19 at 0348 by TALA YAO RT Amended: Links added.
[2019-02-17] MEDS: BIOTENE MOISTURIZING MM SCH ×4 (05:19→23:05)
[2019-02-17] MEDS: BLOOD SUGAR DIAGNOSTIC 1 EACH STRIP IN SCH ×4 (05:19→23:05)
[2019-02-17] MEDS: METOCLOPRAMIDE HCL 10 MG TABLET GT SCH ×4 (05:19→23:05)
[2019-02-17] MEDS: INSULIN REGULAR, HUMAN 100 UNIT/ML 3 ML VIAL SQ PRN ×4 (05:20→23:06)
[2019-02-17 06:06] VITALS: BP 126/64
[2019-02-17 07:12] LABS: BASOPHILS % (AUTO) 0.4 % (0.0-2.0); EOSINOPHILS % (AUTO) 2.7 % (0.0-6.0); HEMATOCRIT 30 % (33-45); HEMOGLOBIN 9.8 g/dL (11.5-14.8); LYMPHOCYTES # (AUTO) 1.7 /CMM (0.8-4.8); LYMPHOCYTES % (AUTO) 16.9 % (20.0-44.0); MEAN CORPUSCULAR HGB CONC 32 g/dl (31.0-36.0); MEAN CORPUSCULAR VOLUME 81 fL (82-100); MONOCYTES # (AUTO) 0.8 /CMM (0.1-1.30); MONOCYTES % (AUTO) 8.1 % (2.0-12.0); NEUTROPHILS # (AUTO) 7.1 /CMM (1.8-8.9); NEUTROPHILS % (AUTO) 71.9 % (43.0-81.0); PLATELET COUNT (AUTO) 261 /CMM (150-450); RED BLOOD CELL COUNT(AUTO) 3.76 MIL/uL (4.0-5.2); WHITE BLOOD COUNT (AUTO) 9.9 K/uL (4.3-11.0)
[2019-02-17 07:38] LABS: ALANINE AMINOTRANSFERASE 14 U/L (12-78); ALKALINE PHOSPHATASE 132 U/L (46-116); ASPARTATE AMINOTRANSFERASE 11 U/L (15-37); BILIRUBIN,TOTAL 0.2 mg/dL (0.2-1.0); CALCIUM, SERUM 9.7 mg/dL (8.5-10.1); CARBON DIOXIDE 22 mmol/L (21-32); CHLORIDE 98 mmol/L (98-107); CREATININE 2.3 mg/dL (0.6-1.3); GLUCOSE 186 mg/dL (74-106); MAGNESIUM 3.6 mg/dL (1.8-2.4); PHOSPHORUS 5.1 mg/dL (2.5-4.9); POTASSIUM 4.3 mmol/L (3.5-5.1); SODIUM SERUM 135 mmol/L (136-145); TOTAL PROTEIN, SERUM 8.8 g/dL (6.4-8.2); UREA NITROGEN, BLOOD 100 mg/dL (7-18)
[2019-02-17 08:21] VITALS: BP 116/58
[2019-02-17] MEDS: DOCUSATE SODIUM LIQ 100 MG/10 ML UDC GT SCH (08:56)
[2019-02-17] MEDS: ASCORBIC ACID 500 MG TABLET GT SCH (08:56)
[2019-02-17] MEDS: ACIDOPHILUS/BULGARICUS 1 EACH TAB.CHEW GT SCH ×2 (08:56→21:11)
[2019-02-17] MEDS: MULTIVIT W/MINERALS 1 TAB TABLET GT SCH (08:56)
[2019-02-17] MEDS: PROSOURCE / PROSTAT (PYXIS) 30 ML UDC GT SCH (08:56)
[2019-02-17] MEDS: ZINC SULFATE 220 MG CAPSULE GT SCH (08:56)
[2019-02-17] MEDS: METOPROLOL TARTRATE 25 MG TABLET GT SCH ×2 (08:56→21:12)
[2019-02-17] MEDS: INSULIN DETEMIR 100 UNIT/ML CARTRIDGE SQ SCH ×2 (08:59→21:12)
[2019-02-17] MEDS: HEPARIN SODIUM, PORCINE 5000 UNITS/1 ML VIAL SQ SCH ×2 (08:59→21:12)
[2019-02-17] MEDS: BACITRACIN OP SCH ×4 (09:00→17:33)
[2019-02-17] MEDS: POLY B OP SCH ×4 (09:00→17:33)
[2019-02-17 09:05] LABS: BAND % (MANUAL) 1 % (0.0-5.0); EOSINOPHILS % (MANUAL) 4 % (0-4); LYMPHOCYTES % (MANUAL) 12 % (16-48); MONOCYTES % (MANUAL) 4 % (0-11.0); NEUTROPHILS % (MANUAL) 79 (42-76)
[2019-02-17] MEDS: HYDROGEN PEROXIDE 480 ML BOTTLE TP SCH ×2 (10:00→20:58)
[2019-02-17] MEDS: ACETAMINOPHEN 650 MG/20.3 ML UDC GT SCH ×2 (10:30→21:12)
[2019-02-17] MEDS: HYDROGEL DRESSING 90 GM TUBE TP SCH ×2 (11:00→21:13)
[2019-02-17] MEDS: COD LIVER OIL/ZINC OXIDE 120 GM TUBE TP SCH ×2 (11:00→21:13)
[2019-02-17] MEDS: NYSTATIN/TRIAMCIN 15 GM CREAM 15 GM TUBE TP SCH ×2 (11:00→21:14)
[2019-02-17] MEDS: MUPIROCIN 2% CREAM 15 GM TUBE TP SCH ×3 (11:00→17:33)
[2019-02-17] MEDS: VITAMINS A AND D 56.7 GM TUBE TP SCH ×2 (11:00→21:15)
[2019-02-17] MEDS: Z GUARD REMEDY 4 OZ OINT TP SCH ×6 (11:00→21:15)
[2019-02-17 12:00] VITALS: BP 119/49
--- NOTE | 2019-02-17 17:31 | NUR ---
Dr Patrick aware of lab results. He ordered to give NS 80 mL/hr IV for hydration. Notified daughter.
[2019-02-17 18:09] VITALS: BP 121/54
[2019-02-17] MEDS: IV NS 0.9% 1,000 ML IV PRN (19:04)
--- NOTE | 2019-02-17 19:05 | NUR ---
Peripheral IV line G 22 started on right arm with good blood return. Pt tolerated well. Started NS at 80 mL/hr IV.
[2019-02-17 20:39] VITALS: BP 119/61
--- NOTE | 2019-02-17 20:58 | NUR ---
RT NOTE PT RECEIVED TRACHED ON MECHANICAL VENTILATION. AMBU BAG/BACK UP TRACH @ BEDSIDE. CUFF CHECKED [facility]IA [facility]. TX GIVEN, NO ADVERSE REACTIONS NOTED. SX DONE, TRACH SECURED AND PATENT. CONT. POX CONNECTED. VENT PLUGGED TO RED OUTLET. ALARMS ON AND AUDIBLE. WILL MONITOR T/O SHIFT. Addendum: 02/17/19 at 2057 by MANOLO MCDONNELL RT Amended: Links added.
[2019-02-17] MEDS: SENNOSIDES 8.6 MG TABLET GT SCH (21:15)
[2019-02-18 00:04] VITALS: BP 128/62
[2019-02-18] MEDS: IPRATROPIUM NEB FS 0.5 MG/2.5 ML AMPUL.NEB NEB SCH ×4 (01:36→19:45)
[2019-02-18] MEDS: METOCLOPRAMIDE HCL 10 MG TABLET GT SCH ×4 (05:16→23:20)
[2019-02-18] MEDS: BLOOD SUGAR DIAGNOSTIC 1 EACH STRIP IN SCH ×4 (05:16→23:20)
[2019-02-18] MEDS: BIOTENE MOISTURIZING MM SCH ×4 (05:17→23:21)
[2019-02-18] MEDS: INSULIN REGULAR, HUMAN 100 UNIT/ML 3 ML VIAL SQ PRN ×4 (05:17→23:22)
[2019-02-18 06:06] VITALS: BP 124/56
[2019-02-18] MEDS: IV NS 0.9% 1,000 ML IV PRN ×2 (06:30→20:01)
[2019-02-18 07:27] VITALS: BP 118/78
--- NOTE | 2019-02-18 07:49 | NUR ---
RT NOTE PT REC'D TRACHED ON MECHANICAL VENTILATION. AMBU BAG/BACK UP TRACH @ BEDSIDE. CUFF CHECKED VIA PER DIEM RN. TX GIVEN, NO ADVERSE REACTIONS NOTED. SX DONE, TRACH SECURED AND PATENT. CONT. POX CONNECTED. VENT PLUGGED TO RED OUTLET. ALARMS ON AND AUDIBLE. WILL MONITOR. Addendum: 02/18/19 at 0750 by FLORINDA TSE RT Amended: Links added.
[2019-02-18] MEDS: HYDROGEN PEROXIDE 480 ML BOTTLE TP SCH ×2 (08:09→20:34)
[2019-02-18] MEDS: DOCUSATE SODIUM LIQ 100 MG/10 ML UDC GT SCH (08:58)
[2019-02-18] MEDS: ACIDOPHILUS/BULGARICUS 1 EACH TAB.CHEW GT SCH ×2 (08:58→21:28)
[2019-02-18] MEDS: MUPIROCIN 2% CREAM 15 GM TUBE TP SCH (09:00)
[2019-02-18] MEDS: Z GUARD REMEDY 4 OZ OINT TP SCH ×6 (09:00→21:39)
[2019-02-18] MEDS: HYDROGEL DRESSING 90 GM TUBE TP SCH ×2 (09:00→21:39)
[2019-02-18] MEDS: COD LIVER OIL/ZINC OXIDE 120 GM TUBE TP SCH ×2 (09:00→21:39)
[2019-02-18] MEDS: NYSTATIN/TRIAMCIN 15 GM CREAM 15 GM TUBE TP SCH ×2 (09:00→21:39)
[2019-02-18] MEDS: VITAMINS A AND D 56.7 GM TUBE TP SCH ×2 (09:00→21:39)
[2019-02-18] MEDS: ACETAMINOPHEN 650 MG/20.3 ML UDC GT SCH ×2 (09:01→21:28)
[2019-02-18] MEDS: POLY B OP SCH ×3 (09:01→17:12)
[2019-02-18] MEDS: BACITRACIN OP SCH ×3 (09:01→17:12)
[2019-02-18] MEDS: MULTIVIT W/MINERALS 1 TAB TABLET GT SCH (09:01)
[2019-02-18] MEDS: ASCORBIC ACID 500 MG TABLET GT SCH (09:01)
[2019-02-18] MEDS: PROSOURCE / PROSTAT (PYXIS) 30 ML UDC GT SCH (09:01)
[2019-02-18] MEDS: ZINC SULFATE 220 MG CAPSULE GT SCH (09:01)
[2019-02-18] MEDS: METOPROLOL TARTRATE 25 MG TABLET GT SCH ×2 (09:01→21:28)
[2019-02-18] MEDS: HEPARIN SODIUM, PORCINE 5000 UNITS/1 ML VIAL SQ SCH ×2 (09:02→21:31)
[2019-02-18] MEDS: INSULIN DETEMIR 100 UNIT/ML CARTRIDGE SQ SCH ×2 (09:04→21:39)
[2019-02-18 12:00] VITALS: BP 126/76
--- NOTE | 2019-02-18 14:41 | NUR ---
RT NOTE RECEIVED PT MECHANICALLY VENTILATED VIA CUFFED TRACHEOSTOMY TUBE. CUFF INFLATED. TRACH TUBE MIDLINE AND SECURE. VENTILATOR SETTINGS PRESCRIBED. ALARMS SET PER PROTOCOL AND AUDIBLE. VENT PLUGGED IN TO RED OUTLET. AMBU BAG AND BACK UP TRACH AT BED SIDE. NO DISTRESS NOTED. Addendum: 02/18/19 at 1441 by JYOTHI RICHARDS RT Amended: Links added.
[2019-02-18] MEDS: NEPRO 1,000 ML BOTTLE GT PRN (17:12)
[2019-02-18 18:58] VITALS: BP 132/74
[2019-02-18 19:45] VITALS: BP 142/63
--- NOTE | 2019-02-18 20:49 | NUR ---
PT RCVD TRACH'D ON MECHANICAL VENT WITH CHARTED SETTINGS. PT BIRDIE TX WELL. SX DONE. PT TRACH IS PATENT AND SECURE. VENT ALARMS APPEAR TO BE FUNCTIONING PROPERLY. VENT PLUGGED INTO RED OUTLET. AMBU BAG AT BEDSIDE. NO SOB NOTED. Addendum: 02/18/19 at 204 by FELICITAS CHRISTIE RT Amended: Links added.
[2019-02-18] MEDS: SENNOSIDES 8.6 MG TABLET GT SCH (21:40)
[2019-02-19 00:20] VITALS: BP 121/64
[2019-02-19] MEDS: IPRATROPIUM NEB FS 0.5 MG/2.5 ML AMPUL.NEB NEB SCH ×4 (00:36→20:29)
[2019-02-19] MEDS: METOCLOPRAMIDE HCL 10 MG TABLET GT SCH ×4 (05:31→23:55)
[2019-02-19] MEDS: BLOOD SUGAR DIAGNOSTIC 1 EACH STRIP IN SCH ×4 (05:31→23:55)
[2019-02-19] MEDS: INSULIN REGULAR, HUMAN 100 UNIT/ML 3 ML VIAL SQ PRN ×4 (05:32→23:57)
[2019-02-19] MEDS: BIOTENE MOISTURIZING MM SCH ×4 (06:08→23:55)
[2019-02-19 06:22] VITALS: BP 149/69
[2019-02-19] MEDS: BISACODYL SUPP (10 MG) 10 MG/SUPP.RECT SUPP.RECT RC PRN (06:44)
[2019-02-19 07:38] VITALS: BP 110/51
[2019-02-19] MEDS: IV NS 0.9% 1,000 ML IV PRN ×2 (08:50→21:48)
[2019-02-19] MEDS: HYDROGEN PEROXIDE 480 ML BOTTLE TP SCH ×2 (09:00→21:03)
[2019-02-19] MEDS: DOCUSATE SODIUM LIQ 100 MG/10 ML UDC GT SCH (09:39)
[2019-02-19] MEDS: ACIDOPHILUS/BULGARICUS 1 EACH TAB.CHEW GT SCH ×2 (09:40→21:31)
[2019-02-19] MEDS: METOPROLOL TARTRATE 25 MG TABLET GT SCH ×2 (09:40→21:32)
[2019-02-19] MEDS: PROSOURCE / PROSTAT (PYXIS) 30 ML UDC GT SCH (09:40)
[2019-02-19] MEDS: POLY B OP SCH ×3 (09:40→17:18)
[2019-02-19] MEDS: ZINC SULFATE 220 MG CAPSULE GT SCH (09:40)
[2019-02-19] MEDS: ACETAMINOPHEN 650 MG/20.3 ML UDC GT SCH ×2 (09:40→21:32)
[2019-02-19] MEDS: MULTIVIT W/MINERALS 1 TAB TABLET GT SCH (09:40)
[2019-02-19] MEDS: BACITRACIN OP SCH ×3 (09:40→17:18)
[2019-02-19] MEDS: ASCORBIC ACID 500 MG TABLET GT SCH (09:40)
[2019-02-19] MEDS: HEPARIN SODIUM, PORCINE 5000 UNITS/1 ML VIAL SQ SCH ×2 (09:41→21:33)
[2019-02-19] MEDS: INSULIN DETEMIR 100 UNIT/ML CARTRIDGE SQ SCH ×2 (09:41→21:42)
[2019-02-19] MEDS: VITAMINS A AND D 56.7 GM TUBE TP SCH ×2 (10:10→21:33)
[2019-02-19] MEDS: COD LIVER OIL/ZINC OXIDE 120 GM TUBE TP SCH ×2 (10:10→21:33)
[2019-02-19] MEDS: HYDROGEL DRESSING 90 GM TUBE TP SCH ×2 (10:10→21:33)
[2019-02-19] MEDS: Z GUARD REMEDY 4 OZ OINT TP SCH ×6 (10:10→21:33)
[2019-02-19] MEDS: NYSTATIN/TRIAMCIN 15 GM CREAM 15 GM TUBE TP SCH ×2 (10:10→21:33)
[2019-02-19 12:00] VITALS: BP 157/61
[2019-02-19] MEDS: CLONIDINE HCL 0.1 MG TABLET GT PRN (12:00)
--- NOTE | 2019-02-19 16:25 | NUR ---
receive pt stable on ordered MV, vent plug in to red outlet, spare trach and ambu bag is at bedside, perry patent and secured, will continue to monitor Addendum: 02/19/19 at 1626 by RENEE CANO RT Amended: Links added.
[2019-02-19] MEDS: NEPRO 1,000 ML BOTTLE GT PRN (17:18)
[2019-02-19 18:54] VITALS: BP 114/57
[2019-02-19 19:24] VITALS: BP 122/48
--- NOTE | 2019-02-19 20:16 | NUR ---
Seen and examined by AVERY Mata no new orders.
--- NOTE | 2019-02-19 21:08 | NUR ---
RT NOTE Pt rec'd trached on [facility] vent on AC mode. No Resp distress or sob noted. Trach patent and secured. Sx'd for thick mod amt of pale yellow secretions. Alarms are set and audible. Vent plugged into red outlet. Ambu bag bedside. Will continue to monitor closely. Addendum: 02/19/19 at 2108 by TALA YAO RT Amended: Links added.
[2019-02-19] MEDS: SENNOSIDES 8.6 MG TABLET GT SCH (21:33)
[2019-02-20 00:20] VITALS: BP 111/48
[2019-02-20] MEDS: IPRATROPIUM NEB FS 0.5 MG/2.5 ML AMPUL.NEB NEB SCH ×4 (01:26→20:21)
[2019-02-20] MEDS: BLOOD SUGAR DIAGNOSTIC 1 EACH STRIP IN SCH ×3 (05:53→17:27)
[2019-02-20] MEDS: BIOTENE MOISTURIZING MM SCH ×3 (05:53→17:27)
[2019-02-20] MEDS: METOCLOPRAMIDE HCL 10 MG TABLET GT SCH ×3 (05:53→17:27)
[2019-02-20] MEDS: INSULIN REGULAR, HUMAN 100 UNIT/ML 3 ML VIAL SQ PRN ×3 (05:54→17:27)
[2019-02-20 06:16] VITALS: BP 151/66
[2019-02-20 07:49] VITALS: BP 118/69
[2019-02-20] MEDS: HEPARIN SODIUM, PORCINE 5000 UNITS/1 ML VIAL SQ SCH ×2 (09:00→21:39)
[2019-02-20] MEDS: BACITRACIN OP SCH ×3 (09:00→17:26)
[2019-02-20] MEDS: INSULIN DETEMIR 100 UNIT/ML CARTRIDGE SQ SCH ×2 (09:00→21:52)
[2019-02-20] MEDS: ASCORBIC ACID 500 MG TABLET GT SCH (09:00)
[2019-02-20] MEDS: PROSOURCE / PROSTAT (PYXIS) 30 ML UDC GT SCH (09:00)
[2019-02-20] MEDS: DOCUSATE SODIUM LIQ 100 MG/10 ML UDC GT SCH (09:00)
[2019-02-20] MEDS: POLY B OP SCH ×3 (09:00→17:26)
[2019-02-20] MEDS: ZINC SULFATE 220 MG CAPSULE GT SCH (09:00)
[2019-02-20] MEDS: MULTIVIT W/MINERALS 1 TAB TABLET GT SCH (09:00)
[2019-02-20] MEDS: METOPROLOL TARTRATE 25 MG TABLET GT SCH ×2 (09:00→21:38)
[2019-02-20] MEDS: ACIDOPHILUS/BULGARICUS 1 EACH TAB.CHEW GT SCH ×2 (09:00→21:38)
[2019-02-20] MEDS: HYDROGEN PEROXIDE 480 ML BOTTLE TP SCH ×2 (09:05→21:00)
--- NOTE | 2019-02-20 09:44 | NUR ---
YNES left a voicemail for the pt.s daughter, Jennifer [phone] inviting them to the Family Support Group for the month of February taking place 02/25/19 from 11am-12 pm in the old admin room and informing them that the next IDT plan of care conference is 02/27/19. YNES left call back number and asked that Jennifer call YNES back to inform if Jennifer can attend or participate via phone conference.
[2019-02-20] MEDS: ACETAMINOPHEN 650 MG/20.3 ML UDC GT SCH ×2 (10:30→21:38)
[2019-02-20] MEDS: NYSTATIN/TRIAMCIN 15 GM CREAM 15 GM TUBE TP SCH ×2 (11:00→21:39)
[2019-02-20] MEDS: COD LIVER OIL/ZINC OXIDE 120 GM TUBE TP SCH ×2 (11:00→21:39)
[2019-02-20] MEDS: VITAMINS A AND D 56.7 GM TUBE TP SCH ×2 (11:00→21:40)
[2019-02-20] MEDS: Z GUARD REMEDY 4 OZ OINT TP SCH ×6 (11:00→21:40)
[2019-02-20] MEDS: HYDROGEL DRESSING 90 GM TUBE TP SCH ×2 (11:00→21:39)
[2019-02-20 12:00] VITALS: BP 149/68
[2019-02-20] MEDS: IV NS 0.9% 1,000 ML IV PRN (12:27)
[2019-02-20 12:54] LABS: CALCIUM, SERUM 9.4 mg/dL (8.5-10.1); CARBON DIOXIDE 24 mmol/L (21-32); CHLORIDE 105 mmol/L (98-107); CREATININE 1.7 mg/dL (0.6-1.3); GLUCOSE 202 mg/dL (74-106); POTASSIUM 4.4 mmol/L (3.5-5.1); SODIUM SERUM 137 mmol/L (136-145); UREA NITROGEN, BLOOD 70 mg/dL (7-18)
--- NOTE | 2019-02-20 14:18 | NUR ---
Obtained an order from Dr. Patrick for a follow-up BMP level, result reported to MD with new order to continue IVF x 2 more days. Order carried out. Resident's daughter Jennifer informed.
--- NOTE | 2019-02-20 17:23 | NUR ---
RT Patient remained on continuous vent support on noted vent settings.Patient stable throughout the shift. Trach is patent and secured.Will continue to monitor. Addendum: 02/20/19 at 1724 by NYA RICHARDS RT Amended: Links added.
[2019-02-20 18:15] VITALS: BP 144/77
[2019-02-20 20:57] VITALS: BP 124/54
[2019-02-20] MEDS: SENNOSIDES 8.6 MG TABLET GT SCH (21:40)
[2019-02-21] MEDS: BIOTENE MOISTURIZING MM SCH ×5 (00:16→23:37)
[2019-02-21] MEDS: BLOOD SUGAR DIAGNOSTIC 1 EACH STRIP IN SCH ×5 (00:16→23:37)
[2019-02-21] MEDS: METOCLOPRAMIDE HCL 10 MG TABLET GT SCH ×5 (00:16→23:37)
[2019-02-21] MEDS: INSULIN REGULAR, HUMAN 100 UNIT/ML 3 ML VIAL SQ PRN ×5 (00:17→23:38)
[2019-02-21] MEDS: IV NS 0.9% 1,000 ML IV PRN ×2 (00:38→14:14)
[2019-02-21] MEDS: IPRATROPIUM NEB FS 0.5 MG/2.5 ML AMPUL.NEB NEB SCH ×4 (01:12→19:52)
[2019-02-21 01:25] VITALS: BP 140/68
[2019-02-21 06:24] VITALS: BP 146/75
[2019-02-21] MEDS: DOCUSATE SODIUM LIQ 100 MG/10 ML UDC GT SCH (09:11)
[2019-02-21] MEDS: ACIDOPHILUS/BULGARICUS 1 EACH TAB.CHEW GT SCH ×2 (09:11→21:36)
[2019-02-21] MEDS: PROSOURCE / PROSTAT (PYXIS) 30 ML UDC GT SCH (09:12)
[2019-02-21] MEDS: METOPROLOL TARTRATE 25 MG TABLET GT SCH ×2 (09:12→21:37)
[2019-02-21] MEDS: ZINC SULFATE 220 MG CAPSULE GT SCH (09:12)
[2019-02-21] MEDS: ACETAMINOPHEN 650 MG/20.3 ML UDC GT SCH ×2 (09:12→21:37)
[2019-02-21] MEDS: MULTIVIT W/MINERALS 1 TAB TABLET GT SCH (09:12)
[2019-02-21] MEDS: ASCORBIC ACID 500 MG TABLET GT SCH (09:12)
[2019-02-21] MEDS: HEPARIN SODIUM, PORCINE 5000 UNITS/1 ML VIAL SQ SCH ×2 (09:13→21:37)
[2019-02-21] MEDS: INSULIN DETEMIR 100 UNIT/ML CARTRIDGE SQ SCH ×2 (09:34→21:38)
[2019-02-21] MEDS: VITAMINS A AND D 56.7 GM TUBE TP SCH ×2 (09:40→21:38)
[2019-02-21] MEDS: COD LIVER OIL/ZINC OXIDE 120 GM TUBE TP SCH ×2 (09:40→21:38)
[2019-02-21] MEDS: NYSTATIN/TRIAMCIN 15 GM CREAM 15 GM TUBE TP SCH ×2 (09:40→21:38)
[2019-02-21] MEDS: Z GUARD REMEDY 4 OZ OINT TP SCH ×6 (09:40→21:38)
--- NOTE | 2019-02-21 09:44 | NUR ---
RT NOTE Pt rec'd trached on [facility]ch vent on AC mode. No Resp distress or sob noted. Trach patent and secured. Sx'd for thick mod amt of pale yellow secretions. Alarms are set and audible. Vent plugged into red outlet. Ambu bag bedside. Will continue to monitor closely.
[2019-02-21] MEDS: HYDROGEN PEROXIDE 480 ML BOTTLE TP SCH ×2 (09:51→21:38)
[2019-02-21 12:00] VITALS: BP 136/74
[2019-02-21 13:25] VITALS: BP 151/69
[2019-02-21 18:30] VITALS: BP 150/51
[2019-02-21 20:20] VITALS: BP 140/58
[2019-02-21] MEDS: SENNOSIDES 8.6 MG TABLET GT SCH (21:38)
[2019-02-22] VITALS: BP 108/56
[2019-02-22] MEDS: IPRATROPIUM NEB FS 0.5 MG/2.5 ML AMPUL.NEB NEB SCH ×4 (01:15→19:53)
[2019-02-22] MEDS: BIOTENE MOISTURIZING MM SCH ×4 (05:57→23:20)
[2019-02-22] MEDS: INSULIN REGULAR, HUMAN 100 UNIT/ML 3 ML VIAL SQ PRN ×3 (05:57→23:21)
[2019-02-22] MEDS: METOCLOPRAMIDE HCL 10 MG TABLET GT SCH ×4 (05:57→23:20)
[2019-02-22] MEDS: BLOOD SUGAR DIAGNOSTIC 1 EACH STRIP IN SCH ×4 (05:57→23:20)
[2019-02-22 06:00] VITALS: BP 154/62
[2019-02-22] MEDS: NEPRO 1,000 ML BOTTLE GT PRN (07:02)
[2019-02-22 07:23] VITALS: BP 122/67
[2019-02-22] MEDS: VITAMINS A AND D 56.7 GM TUBE TP SCH ×2 (09:00→21:18)
[2019-02-22] MEDS: COD LIVER OIL/ZINC OXIDE 120 GM TUBE TP SCH ×2 (09:00→21:17)
[2019-02-22] MEDS: Z GUARD REMEDY 4 OZ OINT TP SCH ×6 (09:00→21:18)
[2019-02-22] MEDS: NYSTATIN/TRIAMCIN 15 GM CREAM 15 GM TUBE TP SCH ×2 (09:00→21:17)
[2019-02-22] MEDS: HYDROGEN PEROXIDE 480 ML BOTTLE TP SCH ×2 (09:45→21:51)
[2019-02-22] MEDS: DOCUSATE SODIUM LIQ 100 MG/10 ML UDC GT SCH (09:55)
[2019-02-22] MEDS: ACIDOPHILUS/BULGARICUS 1 EACH TAB.CHEW GT SCH ×2 (09:55→21:16)
[2019-02-22] MEDS: PROSOURCE / PROSTAT (PYXIS) 30 ML UDC GT SCH (09:56)
[2019-02-22] MEDS: HEPARIN SODIUM, PORCINE 5000 UNITS/1 ML VIAL SQ SCH ×2 (09:56→21:16)
[2019-02-22] MEDS: METOPROLOL TARTRATE 25 MG TABLET GT SCH ×2 (09:56→21:16)
[2019-02-22] MEDS: ZINC SULFATE 220 MG CAPSULE GT SCH (09:56)
[2019-02-22] MEDS: MULTIVIT W/MINERALS 1 TAB TABLET GT SCH (09:56)
[2019-02-22] MEDS: ACETAMINOPHEN 650 MG/20.3 ML UDC GT SCH ×2 (09:56→21:16)
[2019-02-22] MEDS: ASCORBIC ACID 500 MG TABLET GT SCH (09:56)
[2019-02-22] MEDS: INSULIN DETEMIR 100 UNIT/ML CARTRIDGE SQ SCH ×2 (09:57→21:17)
--- NOTE | 2019-02-22 14:06 | NUR ---
Informed Dr. Dixon that today is the last day for patient's IVF with BUN (70) and Creat (1.7) improved with last Saturday's result, order given by Dr. Patrick. He said that is fine.
[2019-02-22 15:19] VITALS: BP 115/58
[2019-02-22 18:36] VITALS: BP 117/60
--- NOTE | 2019-02-22 19:53 | NUR ---
RT NOTE PATIENT RECEIVED IN STABLE CONDITION. PATIENT TOLERATING CURRENT ORDERED VENT SETTINGS. NO SIGNS OF RESPIRATORY DISTRESS NOTED. TRACH IS PATENT AND SECURE. ALARMS ARE SET AND AUDIBLE. MECHANICAL VENT IS PLUGGED INTO RED OUTLET. EMERGENCY EQUIPMENT AT BEDSIDE. WILL CONTINUE TO MONITOR. Addendum: 02/22/19 at 2030 by SALINAS MAGAÑA RT Amended: Links added.
[2019-02-22] MEDS: SENNOSIDES 8.6 MG TABLET GT SCH (21:18)
[2019-02-22 22:34] VITALS: BP 142/56
[2019-02-23 00:35] VITALS: BP 122/59
[2019-02-23] MEDS: IPRATROPIUM NEB FS 0.5 MG/2.5 ML AMPUL.NEB NEB SCH ×4 (01:39→19:30)
[2019-02-23] MEDS: BIOTENE MOISTURIZING MM SCH ×4 (05:32→23:19)
[2019-02-23] MEDS: METOCLOPRAMIDE HCL 10 MG TABLET GT SCH ×4 (05:32→23:19)
[2019-02-23] MEDS: BLOOD SUGAR DIAGNOSTIC 1 EACH STRIP IN SCH ×4 (05:32→23:19)
[2019-02-23] MEDS: INSULIN REGULAR, HUMAN 100 UNIT/ML 3 ML VIAL SQ PRN ×4 (05:33→23:20)
[2019-02-23 06:23] VITALS: BP 129/62
[2019-02-23 07:38] VITALS: BP 113/72
[2019-02-23] MEDS: HYDROGEN PEROXIDE 480 ML BOTTLE TP SCH ×2 (09:00→19:30)
[2019-02-23] MEDS: VITAMINS A AND D 56.7 GM TUBE TP SCH ×2 (09:00→21:17)
[2019-02-23] MEDS: COD LIVER OIL/ZINC OXIDE 120 GM TUBE TP SCH ×2 (09:00→21:16)
[2019-02-23] MEDS: NYSTATIN/TRIAMCIN 15 GM CREAM 15 GM TUBE TP SCH ×2 (09:00→21:17)
[2019-02-23] MEDS: Z GUARD REMEDY 4 OZ OINT TP SCH ×6 (09:00→21:17)
[2019-02-23] MEDS: DOCUSATE SODIUM LIQ 100 MG/10 ML UDC GT SCH (09:35)
[2019-02-23] MEDS: ACIDOPHILUS/BULGARICUS 1 EACH TAB.CHEW GT SCH ×2 (09:35→21:15)
[2019-02-23] MEDS: METOPROLOL TARTRATE 25 MG TABLET GT SCH ×2 (09:35→21:15)
[2019-02-23] MEDS: ZINC SULFATE 220 MG CAPSULE GT SCH (09:36)
[2019-02-23] MEDS: HEPARIN SODIUM, PORCINE 5000 UNITS/1 ML VIAL SQ SCH ×2 (09:36→21:16)
[2019-02-23] MEDS: MULTIVIT W/MINERALS 1 TAB TABLET GT SCH (09:36)
[2019-02-23] MEDS: PROSOURCE / PROSTAT (PYXIS) 30 ML UDC GT SCH (09:36)
[2019-02-23] MEDS: ASCORBIC ACID 500 MG TABLET GT SCH (09:36)
[2019-02-23] MEDS: ACETAMINOPHEN 650 MG/20.3 ML UDC GT SCH ×2 (09:36→21:15)
[2019-02-23] MEDS: INSULIN DETEMIR 100 UNIT/ML CARTRIDGE SQ SCH ×2 (09:38→21:16)
[2019-02-23 12:00] VITALS: BP 126/64
[2019-02-23] MEDS: NEPRO 1,000 ML BOTTLE GT PRN (13:42)
[2019-02-23 18:08] VITALS: BP 133/60
--- NOTE | 2019-02-23 19:30 | NUR ---
RT NOTE: RECEIVED TRACH PT ON [facility] VENT ON NOTED SETTINGS PER MD ORDERS. TRACH IS PATENT AND SECURED. TRACH CARE DONE. TRADEMARK PARALEGAL DONE. Q6 BREATHING TX GIVEN WITH NO ADVERSE REACTION NOTED. SX DONE PRN. VENT PLUGGED INTO RED OUTLET. ALARMS ON AND AUDIBLE. RODERICKU BAG @ BEDSIDE. NO RESP DISTRESS AT THIS TIME. WILL CONT TO MONITOR PT. Addendum: 02/24/19 at 0332 by PREMA SOTO RT Amended: Links added.
[2019-02-23 20:53] VITALS: BP 136/61
[2019-02-23] MEDS: SENNOSIDES 8.6 MG TABLET GT SCH (21:17)
[2019-02-24 00:11] VITALS: BP 124/59
[2019-02-24] MEDS: IPRATROPIUM NEB FS 0.5 MG/2.5 ML AMPUL.NEB NEB SCH ×4 (01:54→19:44)
[2019-02-24] MEDS: METOCLOPRAMIDE HCL 10 MG TABLET GT SCH ×4 (05:38→23:05)
[2019-02-24] MEDS: BIOTENE MOISTURIZING MM SCH ×4 (05:38→23:06)
[2019-02-24] MEDS: BLOOD SUGAR DIAGNOSTIC 1 EACH STRIP IN SCH ×4 (05:38→23:05)
[2019-02-24] MEDS: INSULIN REGULAR, HUMAN 100 UNIT/ML 3 ML VIAL SQ PRN ×4 (05:39→23:07)
[2019-02-24 06:19] VITALS: BP 136/62
[2019-02-24 08:00] VITALS: BP 119/54
[2019-02-24] MEDS: COD LIVER OIL/ZINC OXIDE 120 GM TUBE TP SCH ×2 (09:00→21:16)
[2019-02-24] MEDS: NYSTATIN/TRIAMCIN 15 GM CREAM 15 GM TUBE TP SCH ×2 (09:00→21:16)
[2019-02-24] MEDS: VITAMINS A AND D 56.7 GM TUBE TP SCH ×2 (09:00→21:17)
[2019-02-24] MEDS: Z GUARD REMEDY 4 OZ OINT TP SCH ×6 (09:00→21:17)
[2019-02-24] MEDS: HYDROGEN PEROXIDE 480 ML BOTTLE TP SCH ×2 (09:00→20:25)
[2019-02-24] MEDS: DOCUSATE SODIUM LIQ 100 MG/10 ML UDC GT SCH (09:06)
[2019-02-24] MEDS: METOPROLOL TARTRATE 25 MG TABLET GT SCH ×2 (09:06→21:14)
[2019-02-24] MEDS: ACIDOPHILUS/BULGARICUS 1 EACH TAB.CHEW GT SCH ×2 (09:06→21:14)
[2019-02-24] MEDS: ASCORBIC ACID 500 MG TABLET GT SCH (09:07)
[2019-02-24] MEDS: ZINC SULFATE 220 MG CAPSULE GT SCH (09:07)
[2019-02-24] MEDS: MULTIVIT W/MINERALS 1 TAB TABLET GT SCH (09:07)
[2019-02-24] MEDS: PROSOURCE / PROSTAT (PYXIS) 30 ML UDC GT SCH (09:07)
[2019-02-24] MEDS: ACETAMINOPHEN 650 MG/20.3 ML UDC GT SCH ×2 (09:07→21:14)
[2019-02-24] MEDS: HEPARIN SODIUM, PORCINE 5000 UNITS/1 ML VIAL SQ SCH ×2 (09:08→21:16)
[2019-02-24] MEDS: INSULIN DETEMIR 100 UNIT/ML CARTRIDGE SQ SCH ×2 (09:08→21:16)
[2019-02-24 12:00] VITALS: BP 117/52
[2019-02-24 18:00] VITALS: BP 130/56
--- NOTE | 2019-02-24 21:03 | NUR ---
RT NOTE PT RECEIVED TRACHED ON MECHANICAL VENTILATION. CUFF CHECKED VIA HOISTING LABORER. AMBU BAG/BACK UP TRACH @ BEDSIDE. TX GIVEN, NO ADVERSE REACTIONS NOTED. SX DONE, TRACH SECURED AND PATENT. ALARMS ON AND AUDIBLE. VENT PLUGGED TO RED OUTLET. NO SOB NOTED. CONT. PULSE OX CONNECTED. WILL MONITOR T/O SHIFT. Addendum: 02/24/19 at 2108 by MANOLO MCDONNELL RT Amended: Links added.
[2019-02-24 21:09] VITALS: BP 143/66
[2019-02-24] MEDS: SENNOSIDES 8.6 MG TABLET GT SCH (21:17)
[2019-02-25 00:13] VITALS: BP 129/58
[2019-02-25] MEDS: IPRATROPIUM NEB FS 0.5 MG/2.5 ML AMPUL.NEB NEB SCH ×4 (01:43→20:12)
[2019-02-25] MEDS: METOCLOPRAMIDE HCL 10 MG TABLET GT SCH ×3 (05:21→17:46)
[2019-02-25] MEDS: BIOTENE MOISTURIZING MM SCH ×3 (05:21→17:46)
[2019-02-25] MEDS: BLOOD SUGAR DIAGNOSTIC 1 EACH STRIP IN SCH ×3 (05:21→17:46)
[2019-02-25] MEDS: INSULIN REGULAR, HUMAN 100 UNIT/ML 3 ML VIAL SQ PRN ×3 (05:23→17:47)
[2019-02-25 06:09] VITALS: BP 132/58
[2019-02-25 07:42] VITALS: BP 136/71
[2019-02-25] MEDS: VITAMINS A AND D 56.7 GM TUBE TP SCH ×2 (09:00→21:06)
[2019-02-25] MEDS: Z GUARD REMEDY 4 OZ OINT TP SCH ×6 (09:00→21:06)
[2019-02-25] MEDS: NYSTATIN/TRIAMCIN 15 GM CREAM 15 GM TUBE TP SCH ×2 (09:00→21:05)
[2019-02-25] MEDS: HYDROGEN PEROXIDE 480 ML BOTTLE TP SCH ×2 (09:00→21:05)
[2019-02-25] MEDS: COD LIVER OIL/ZINC OXIDE 120 GM TUBE TP SCH ×2 (09:00→21:05)
[2019-02-25] MEDS: ACIDOPHILUS/BULGARICUS 1 EACH TAB.CHEW GT SCH ×2 (09:54→21:04)
[2019-02-25] MEDS: ACETAMINOPHEN 650 MG/20.3 ML UDC GT SCH ×2 (09:54→21:05)
[2019-02-25] MEDS: MULTIVIT W/MINERALS 1 TAB TABLET GT SCH (09:54)
[2019-02-25] MEDS: ASCORBIC ACID 500 MG TABLET GT SCH (09:54)
[2019-02-25] MEDS: PROSOURCE / PROSTAT (PYXIS) 30 ML UDC GT SCH (09:54)
[2019-02-25] MEDS: ZINC SULFATE 220 MG CAPSULE GT SCH (09:54)
[2019-02-25] MEDS: DOCUSATE SODIUM LIQ 100 MG/10 ML UDC GT SCH (09:54)
[2019-02-25] MEDS: METOPROLOL TARTRATE 25 MG TABLET GT SCH ×2 (09:54→21:05)
[2019-02-25] MEDS: HEPARIN SODIUM, PORCINE 5000 UNITS/1 ML VIAL SQ SCH ×2 (09:55→21:07)
[2019-02-25] MEDS: INSULIN DETEMIR 100 UNIT/ML CARTRIDGE SQ SCH ×2 (09:56→21:08)
--- NOTE | 2019-02-25 13:15 | NUR ---
The pt.'s family was not able to attend this month's Family Support Group.
[2019-02-25 14:28] VITALS: BP 129/58
[2019-02-25 18:10] VITALS: BP 120/56
[2019-02-25 20:26] VITALS: BP 147/68
[2019-02-25] MEDS: SENNOSIDES 8.6 MG TABLET GT SCH (21:06)
--- NOTE | 2019-02-25 21:10 | NUR ---
PT RECEIVE STABLE ON MV, SETTINGS ARE AC 15 450 +5 AT 30% FIO2, ALARMS ARE ON AND AUDIBLE, SPARE TRACH AND AMBU BAG IS AT BEDSIDE, VENT IS PLUG AT RED OUTLET. WILL CONTINUE TO MONITOR Addendum: 02/25/19 at 2112 by RENEE CANO RT Amended: Links added.
[2019-02-26] VITALS: BP 145/78
[2019-02-26] MEDS: NEPRO 1,000 ML BOTTLE GT PRN (00:13)
[2019-02-26] MEDS: METOCLOPRAMIDE HCL 10 MG TABLET GT SCH ×5 (00:32→23:36)
[2019-02-26] MEDS: BIOTENE MOISTURIZING MM SCH ×5 (00:32→23:36)
[2019-02-26] MEDS: BLOOD SUGAR DIAGNOSTIC 1 EACH STRIP IN SCH ×5 (00:33→23:35)
[2019-02-26] MEDS: INSULIN REGULAR, HUMAN 100 UNIT/ML 3 ML VIAL SQ PRN ×6 (00:37→23:36)
[2019-02-26] MEDS: IPRATROPIUM NEB FS 0.5 MG/2.5 ML AMPUL.NEB NEB SCH ×4 (01:17→19:52)
[2019-02-26 06:00] VITALS: BP 138/86
[2019-02-26 07:22] VITALS: BP 140/79
[2019-02-26] MEDS: HYDROGEN PEROXIDE 480 ML BOTTLE TP SCH ×2 (09:00→19:52)
[2019-02-26] MEDS: ACIDOPHILUS/BULGARICUS 1 EACH TAB.CHEW GT SCH ×2 (09:04→20:33)
[2019-02-26] MEDS: DOCUSATE SODIUM LIQ 100 MG/10 ML UDC GT SCH (09:04)
[2019-02-26] MEDS: PROSOURCE / PROSTAT (PYXIS) 30 ML UDC GT SCH (09:05)
[2019-02-26] MEDS: ZINC SULFATE 220 MG CAPSULE GT SCH (09:05)
[2019-02-26] MEDS: ASCORBIC ACID 500 MG TABLET GT SCH (09:05)
[2019-02-26] MEDS: METOPROLOL TARTRATE 25 MG TABLET GT SCH ×2 (09:05→20:34)
[2019-02-26] MEDS: MULTIVIT W/MINERALS 1 TAB TABLET GT SCH (09:05)
[2019-02-26] MEDS: HEPARIN SODIUM, PORCINE 5000 UNITS/1 ML VIAL SQ SCH ×2 (09:05→20:34)
[2019-02-26] MEDS: ACETAMINOPHEN 650 MG/20.3 ML UDC GT SCH ×2 (09:05→20:34)
[2019-02-26] MEDS: INSULIN DETEMIR 100 UNIT/ML CARTRIDGE SQ SCH ×2 (09:06→20:46)
[2019-02-26] MEDS: Z GUARD REMEDY 4 OZ OINT TP SCH ×4 (09:40→20:35)
[2019-02-26] MEDS: VITAMINS A AND D 56.7 GM TUBE TP SCH ×2 (09:40→20:35)
[2019-02-26] MEDS: COD LIVER OIL/ZINC OXIDE 120 GM TUBE TP SCH ×2 (09:40→20:35)
[2019-02-26 12:00] VITALS: BP 148/75
[2019-02-26 18:50] VITALS: BP 150/64
--- NOTE | 2019-02-26 19:53 | NUR ---
RT NOTE: RECEIVED TRACH PT ON [facility] VENT ON NOTED SETTINGS PER MD ORDERS. TRACH IS PATENT AND SECURED. TRACH CARE DONE. SERVICE CREW SUPERVISOR DONE. Q6 BREATHING TX GIVEN WITH NO ADVERSE REACTION NOTED. SX DONE PRN. VENT PLUGGED INTO RED OUTLET. ALARMS ON AND AUDIBLE. RODERICKU BAG @ BEDSIDE. NO RESP DISTRESS AT THIS TIME. WILL CONT TO MONITOR PT. Addendum: 02/27/19 at 0243 by PREMA SOTO RT Amended: Links added.
[2019-02-26 20:31] VITALS: BP 121/58
[2019-02-26] MEDS: SENNOSIDES 8.6 MG TABLET GT SCH (21:12)
[2019-02-26] MEDS: MAGNESIUM HYDROXIDE 30 ML UDC PO PRN (22:00)
[2019-02-27 00:02] VITALS: BP 129/59
[2019-02-27] MEDS: IPRATROPIUM NEB FS 0.5 MG/2.5 ML AMPUL.NEB NEB SCH ×4 (01:34→19:23)
[2019-02-27] MEDS: NEPRO 1,000 ML BOTTLE GT PRN (05:22)
[2019-02-27] MEDS: BIOTENE MOISTURIZING MM SCH ×4 (05:22→23:03)
[2019-02-27] MEDS: BLOOD SUGAR DIAGNOSTIC 1 EACH STRIP IN SCH ×4 (05:22→23:29)
[2019-02-27] MEDS: METOCLOPRAMIDE HCL 10 MG TABLET GT SCH ×4 (05:22→23:02)
[2019-02-27] MEDS: INSULIN REGULAR, HUMAN 100 UNIT/ML 3 ML VIAL SQ PRN ×4 (05:28→23:30)
[2019-02-27 06:20] VITALS: BP 122/77
[2019-02-27] MEDS: HYDROGEN PEROXIDE 480 ML BOTTLE TP SCH ×2 (07:33→20:52)
[2019-02-27 07:41] VITALS: BP 136/59
[2019-02-27] MEDS: VITAMINS A AND D 56.7 GM TUBE TP SCH ×2 (09:00→20:52)
[2019-02-27] MEDS: Z GUARD REMEDY 4 OZ OINT TP SCH ×4 (09:00→20:52)
[2019-02-27] MEDS: COD LIVER OIL/ZINC OXIDE 120 GM TUBE TP SCH ×2 (09:00→20:52)
[2019-02-27] MEDS: ACETAMINOPHEN 650 MG/20.3 ML UDC GT SCH ×2 (09:05→20:51)
[2019-02-27] MEDS: ACIDOPHILUS/BULGARICUS 1 EACH TAB.CHEW GT SCH ×2 (09:05→20:51)
[2019-02-27] MEDS: ASCORBIC ACID 500 MG TABLET GT SCH (09:05)
[2019-02-27] MEDS: MULTIVIT W/MINERALS 1 TAB TABLET GT SCH (09:05)
[2019-02-27] MEDS: PROSOURCE / PROSTAT (PYXIS) 30 ML UDC GT SCH (09:05)
[2019-02-27] MEDS: ZINC SULFATE 220 MG CAPSULE GT SCH (09:05)
[2019-02-27] MEDS: DOCUSATE SODIUM LIQ 100 MG/10 ML UDC GT SCH (09:05)
[2019-02-27] MEDS: HEPARIN SODIUM, PORCINE 5000 UNITS/1 ML VIAL SQ SCH ×2 (09:06→20:51)
[2019-02-27] MEDS: METOPROLOL TARTRATE 25 MG TABLET GT SCH ×2 (09:33→20:51)
[2019-02-27] MEDS: INSULIN DETEMIR 100 UNIT/ML CARTRIDGE SQ SCH ×2 (09:34→20:52)
[2019-02-27 12:00] VITALS: BP 112/58
--- NOTE | 2019-02-27 14:33 | NUR ---
INTERDISCIPLINARY PLAN OF CARE CONFERENCE took place today. The patients responsible republican/ Jennifer Guruviri [phone] was not able to attend or participate via phone conference. Charge nurse discussed antibiotic Tx for MRSA completed and wound is closed, also noted 9lb weight gain possibly due to I.V for hydration. Dr. Agarwal and Interdisciplinary team discussed the plan of care in detail. Current orders as well as treatments and medications were reviewed. Please see other disciplines IDT notes for further details.
[2019-02-27] MEDS: BISACODYL SUPP (10 MG) 10 MG/SUPP.RECT SUPP.RECT RC PRN (18:06)
[2019-02-27 18:48] VITALS: BP 127/57
[2019-02-27 20:13] VITALS: BP 137/52
[2019-02-27] MEDS: SENNOSIDES 8.6 MG TABLET GT SCH (21:16)
[2019-02-28 00:27] VITALS: BP 129/73
[2019-02-28] MEDS: IPRATROPIUM NEB FS 0.5 MG/2.5 ML AMPUL.NEB NEB SCH ×4 (01:39→19:22)
[2019-02-28] MEDS: METOCLOPRAMIDE HCL 10 MG TABLET GT SCH ×4 (05:32→23:28)
[2019-02-28] MEDS: BLOOD SUGAR DIAGNOSTIC 1 EACH STRIP IN SCH ×4 (05:32→23:44)
[2019-02-28] MEDS: BIOTENE MOISTURIZING MM SCH ×4 (05:32→23:29)
[2019-02-28] MEDS: NEPRO 1,000 ML BOTTLE GT PRN (05:33)
[2019-02-28] MEDS: INSULIN REGULAR, HUMAN 100 UNIT/ML 3 ML VIAL SQ PRN ×4 (05:33→23:44)
[2019-02-28 06:20] VITALS: BP 130/72
[2019-02-28 08:00] VITALS: BP 150/67
[2019-02-28] MEDS: COD LIVER OIL/ZINC OXIDE 120 GM TUBE TP SCH ×2 (09:00→20:45)
[2019-02-28] MEDS: HYDROGEN PEROXIDE 480 ML BOTTLE TP SCH ×2 (09:00→20:45)
[2019-02-28] MEDS: INSULIN DETEMIR 100 UNIT/ML CARTRIDGE SQ SCH ×2 (09:00→20:44)
[2019-02-28] MEDS: Z GUARD REMEDY 4 OZ OINT TP SCH ×4 (09:00→20:45)
[2019-02-28] MEDS: HEPARIN SODIUM, PORCINE 5000 UNITS/1 ML VIAL SQ SCH ×2 (09:00→20:44)
[2019-02-28] MEDS: VITAMINS A AND D 56.7 GM TUBE TP SCH ×2 (09:00→20:45)
[2019-02-28] MEDS: DOCUSATE SODIUM LIQ 100 MG/10 ML UDC GT SCH (09:17)
[2019-02-28] MEDS: ACETAMINOPHEN 650 MG/20.3 ML UDC GT SCH ×2 (09:18→20:44)
[2019-02-28] MEDS: PROSOURCE / PROSTAT (PYXIS) 30 ML UDC GT SCH (09:18)
[2019-02-28] MEDS: METOPROLOL TARTRATE 25 MG TABLET GT SCH ×2 (09:18→20:43)
[2019-02-28] MEDS: ACIDOPHILUS/BULGARICUS 1 EACH TAB.CHEW GT SCH ×2 (09:18→20:43)
[2019-02-28] MEDS: ZINC SULFATE 220 MG CAPSULE GT SCH (09:19)
[2019-02-28] MEDS: ASCORBIC ACID 500 MG TABLET GT SCH (09:19)
[2019-02-28] MEDS: MULTIVIT W/MINERALS 1 TAB TABLET GT SCH (09:23)
[2019-02-28 12:00] VITALS: BP 134/72
[2019-02-28 18:00] VITALS: BP 126/68
[2019-02-28 19:41] VITALS: BP 123/50
[2019-02-28] MEDS: SENNOSIDES 8.6 MG TABLET GT SCH (21:27)
[2019-02-28] MEDS: MAGNESIUM HYDROXIDE 30 ML UDC PO PRN (21:27)
[2019-03-01 00:30] VITALS: BP 127/56
[2019-03-01] MEDS: IPRATROPIUM NEB FS 0.5 MG/2.5 ML AMPUL.NEB NEB SCH ×4 (01:21→20:08)
[2019-03-01] MEDS: BIOTENE MOISTURIZING MM SCH ×4 (05:39→23:20)
[2019-03-01] MEDS: BLOOD SUGAR DIAGNOSTIC 1 EACH STRIP IN SCH ×4 (05:39→23:20)
[2019-03-01] MEDS: METOCLOPRAMIDE HCL 10 MG TABLET GT SCH ×4 (05:39→23:20)
[2019-03-01] MEDS: INSULIN REGULAR, HUMAN 100 UNIT/ML 3 ML VIAL SQ PRN ×4 (05:40→23:21)
[2019-03-01] MEDS: NEPRO 1,000 ML BOTTLE GT PRN (05:40)
[2019-03-01 06:17] VITALS: BP 119/77
[2019-03-01 07:40] VITALS: BP 136/63
[2019-03-01] MEDS: HYDROGEN PEROXIDE 480 ML BOTTLE TP SCH ×2 (08:19→21:00)
[2019-03-01] MEDS: DOCUSATE SODIUM LIQ 100 MG/10 ML UDC GT SCH (08:39)
[2019-03-01] MEDS: ACIDOPHILUS/BULGARICUS 1 EACH TAB.CHEW GT SCH ×2 (08:39→21:04)
[2019-03-01] MEDS: METOPROLOL TARTRATE 25 MG TABLET GT SCH ×2 (08:40→21:04)
[2019-03-01] MEDS: ACETAMINOPHEN 650 MG/20.3 ML UDC GT SCH ×2 (08:40→21:04)
[2019-03-01] MEDS: PROSOURCE / PROSTAT (PYXIS) 30 ML UDC GT SCH (08:40)
[2019-03-01] MEDS: ZINC SULFATE 220 MG CAPSULE GT SCH (08:40)
[2019-03-01] MEDS: MULTIVIT W/MINERALS 1 TAB TABLET GT SCH (08:40)
[2019-03-01] MEDS: ASCORBIC ACID 500 MG TABLET GT SCH (08:40)
[2019-03-01] MEDS: INSULIN DETEMIR 100 UNIT/ML CARTRIDGE SQ SCH ×2 (08:44→21:45)
[2019-03-01] MEDS: HEPARIN SODIUM, PORCINE 5000 UNITS/1 ML VIAL SQ SCH ×2 (08:44→21:05)
[2019-03-01] MEDS: VITAMINS A AND D 56.7 GM TUBE TP SCH ×2 (09:00→21:46)
[2019-03-01] MEDS: Z GUARD REMEDY 4 OZ OINT TP SCH ×4 (09:00→21:46)
[2019-03-01] MEDS: COD LIVER OIL/ZINC OXIDE 120 GM TUBE TP SCH ×2 (09:00→21:46)
[2019-03-01 12:00] VITALS: BP 117/50
[2019-03-01 18:00] VITALS: BP 131/57
[2019-03-01 19:48] VITALS: BP 143/50
[2019-03-01] MEDS: SENNOSIDES 8.6 MG TABLET GT SCH (21:05)
--- NOTE | 2019-03-02 00:07 | NUR ---
RT NOTE Pt rec'd on [facility] vent on AC mode. No resp distress or sob noted. Trach is patent and secured. Sx'd thick mod amt of pale yellow secretions. Alarms are set and audible. Vent plugged into red outlet. Ambu bag bedside. Will continue to monitor. Addendum: 03/02/19 at 0009 by TALA YAO RT Amended: Links added.
[2019-03-02 00:15] VITALS: BP 128/60
[2019-03-02] MEDS: IPRATROPIUM NEB FS 0.5 MG/2.5 ML AMPUL.NEB NEB SCH ×4 (00:57→20:06)
[2019-03-02] MEDS: METOCLOPRAMIDE HCL 10 MG TABLET GT SCH ×4 (05:16→23:23)
[2019-03-02] MEDS: BIOTENE MOISTURIZING MM SCH ×4 (05:16→23:23)
[2019-03-02] MEDS: BLOOD SUGAR DIAGNOSTIC 1 EACH STRIP IN SCH ×4 (05:50→23:23)
[2019-03-02] MEDS: INSULIN REGULAR, HUMAN 100 UNIT/ML 3 ML VIAL SQ PRN ×4 (05:51→23:24)
[2019-03-02 06:17] VITALS: BP 120/64
[2019-03-02 07:59] VITALS: BP 100/44
[2019-03-02] MEDS: HYDROGEN PEROXIDE 480 ML BOTTLE TP SCH ×2 (08:32→21:06)
[2019-03-02] MEDS: COD LIVER OIL/ZINC OXIDE 120 GM TUBE TP SCH ×2 (09:00→21:04)
[2019-03-02] MEDS: Z GUARD REMEDY 4 OZ OINT TP SCH ×4 (09:00→21:04)
[2019-03-02] MEDS: VITAMINS A AND D 56.7 GM TUBE TP SCH ×2 (09:00→21:04)
[2019-03-02] MEDS: ACIDOPHILUS/BULGARICUS 1 EACH TAB.CHEW GT SCH ×2 (09:05→21:02)
[2019-03-02] MEDS: DOCUSATE SODIUM LIQ 100 MG/10 ML UDC GT SCH (09:05)
[2019-03-02] MEDS: ACETAMINOPHEN 650 MG/20.3 ML UDC GT SCH ×2 (09:14→21:03)
[2019-03-02] MEDS: ZINC SULFATE 220 MG CAPSULE GT SCH (09:14)
[2019-03-02] MEDS: HEPARIN SODIUM, PORCINE 5000 UNITS/1 ML VIAL SQ SCH ×2 (09:14→21:03)
[2019-03-02] MEDS: METOPROLOL TARTRATE 25 MG TABLET GT SCH ×2 (09:14→21:03)
[2019-03-02] MEDS: ASCORBIC ACID 500 MG TABLET GT SCH (09:14)
[2019-03-02] MEDS: MULTIVIT W/MINERALS 1 TAB TABLET GT SCH (09:14)
[2019-03-02] MEDS: PROSOURCE / PROSTAT (PYXIS) 30 ML UDC GT SCH (09:14)
[2019-03-02] MEDS: NEPRO 1,000 ML BOTTLE GT PRN (09:15)
[2019-03-02] MEDS: INSULIN DETEMIR 100 UNIT/ML CARTRIDGE SQ SCH ×2 (09:38→21:41)
[2019-03-02 12:00] VITALS: BP 112/60
[2019-03-02 18:25] VITALS: BP 135/68
[2019-03-02] MEDS: SENNOSIDES 8.6 MG TABLET GT SCH (21:04)
--- NOTE | 2019-03-02 21:24 | NUR ---
PT RECEIVE STABLE ON MV, SETTINGS ARE AC 15, 450 , +5 AT 30% FIO2, ALARMS ARE ON AND AUSIBLE, VENT PLUG IN AT RED OUTLET, SPARE TRACH AND AMBU BAG AT BEDSIDE, WILL CONTINUE TO MONITOR Addendum: 03/02/19 at 2126 by RENEE CANO RT Amended: Links added.
[2019-03-03] VITALS (7 sets, daily range): BP systolic 119–155; BP diastolic 41–79
[2019-03-03] MEDS: IPRATROPIUM NEB FS 0.5 MG/2.5 ML AMPUL.NEB NEB SCH ×4 (01:37→19:46)
[2019-03-03] MEDS: BLOOD SUGAR DIAGNOSTIC 1 EACH STRIP IN SCH ×4 (05:52→23:17)
[2019-03-03] MEDS: BIOTENE MOISTURIZING MM SCH ×4 (05:52→23:17)
[2019-03-03] MEDS: METOCLOPRAMIDE HCL 10 MG TABLET GT SCH ×4 (05:52→23:17)
[2019-03-03] MEDS: INSULIN REGULAR, HUMAN 100 UNIT/ML 3 ML VIAL SQ PRN ×4 (05:53→23:19)
[2019-03-03] MEDS: HYDROGEN PEROXIDE 480 ML BOTTLE TP SCH ×2 (07:35→20:28)
[2019-03-03] MEDS: DOCUSATE SODIUM LIQ 100 MG/10 ML UDC GT SCH (09:11)
[2019-03-03] MEDS: ASCORBIC ACID 500 MG TABLET GT SCH (09:11)
[2019-03-03] MEDS: MULTIVIT W/MINERALS 1 TAB TABLET GT SCH (09:11)
[2019-03-03] MEDS: ACETAMINOPHEN 650 MG/20.3 ML UDC GT SCH (09:11)
[2019-03-03] MEDS: METOPROLOL TARTRATE 25 MG TABLET GT SCH ×2 (09:11→21:20)
[2019-03-03] MEDS: PROSOURCE / PROSTAT (PYXIS) 30 ML UDC GT SCH (09:11)
[2019-03-03] MEDS: ACIDOPHILUS/BULGARICUS 1 EACH TAB.CHEW GT SCH ×2 (09:11→21:20)
[2019-03-03] MEDS: HEPARIN SODIUM, PORCINE 5000 UNITS/1 ML VIAL SQ SCH ×2 (09:12→21:21)
[2019-03-03] MEDS: INSULIN DETEMIR 100 UNIT/ML CARTRIDGE SQ SCH ×2 (09:12→21:22)
[2019-03-03] MEDS: ZINC SULFATE 220 MG CAPSULE GT SCH (09:12)
[2019-03-03] MEDS: COD LIVER OIL/ZINC OXIDE 120 GM TUBE TP SCH ×2 (09:13→21:22)
[2019-03-03] MEDS: VITAMINS A AND D 56.7 GM TUBE TP SCH ×2 (09:13→21:22)
[2019-03-03] MEDS: Z GUARD REMEDY 4 OZ OINT TP SCH ×4 (09:13→21:22)
--- NOTE | 2019-03-03 12:42 | NUR ---
Late entry for 03/02/19 Left message for Infection Control Nurse Olena to evaluate pt's isolation. Pt completed Vancomycin for MRSA right 2nd and 5th fingers. Wound already dry, no exudate.
--- NOTE | 2019-03-03 12:48 | NUR ---
Spoke with AVERY Muñoz regarding pt's isolation. She said she will ask Dr Aguirre. Addendum: 03/03/19 at 1322 by MARCELLA MITCHELL RN Pt's wounds on right 2nd and 5th fingers already healed.
--- NOTE | 2019-03-03 20:32 | NUR ---
PT RCVD TRACH'D ON MECHANICAL VENT WITH CHARTED SETTINGS. PT BIRDIE TX WELL. SX DONE. PT TRACH IS PATENT AND SECURE. VENT ALARMS APPEAR TO BE FUNCTIONING PROPERLY. VENT PLUGGED INTO RED OUTLET. AMBU BAG AT BEDSIDE. NO SOB NOTED. Addendum: 03/03/19 at 2031 by FELICITAS CHRISTIE RT Amended: Links added.
[2019-03-03] MEDS: SENNOSIDES 8.6 MG TABLET GT SCH (21:22)
[2019-03-04] MEDS: IPRATROPIUM NEB FS 0.5 MG/2.5 ML AMPUL.NEB NEB SCH ×4 (00:36→20:19)
[2019-03-04 00:48] VITALS: BP 125/62
[2019-03-04] MEDS: BIOTENE MOISTURIZING MM SCH ×4 (05:24→23:08)
[2019-03-04] MEDS: METOCLOPRAMIDE HCL 10 MG TABLET GT SCH ×4 (05:24→23:08)
[2019-03-04] MEDS: BLOOD SUGAR DIAGNOSTIC 1 EACH STRIP IN SCH ×4 (06:08→23:08)
[2019-03-04] MEDS: INSULIN REGULAR, HUMAN 100 UNIT/ML 3 ML VIAL SQ PRN ×4 (06:09→23:10)
[2019-03-04 06:36] VITALS: BP 132/66
[2019-03-04 08:00] VITALS: BP 126/55
[2019-03-04] MEDS: HYDROGEN PEROXIDE 480 ML BOTTLE TP SCH ×2 (08:04→21:40)
[2019-03-04] MEDS: COD LIVER OIL/ZINC OXIDE 120 GM TUBE TP SCH ×2 (09:00→20:50)
[2019-03-04] MEDS: VITAMINS A AND D 56.7 GM TUBE TP SCH ×2 (09:00→20:51)
[2019-03-04] MEDS: Z GUARD REMEDY 4 OZ OINT TP SCH ×4 (09:00→20:51)
[2019-03-04] MEDS: ACIDOPHILUS/BULGARICUS 1 EACH TAB.CHEW GT SCH ×2 (09:05→20:49)
[2019-03-04] MEDS: DOCUSATE SODIUM LIQ 100 MG/10 ML UDC GT SCH (09:05)
[2019-03-04] MEDS: ZINC SULFATE 220 MG CAPSULE GT SCH (09:06)
[2019-03-04] MEDS: METOPROLOL TARTRATE 25 MG TABLET GT SCH ×2 (09:06→20:49)
[2019-03-04] MEDS: ASCORBIC ACID 500 MG TABLET GT SCH (09:06)
[2019-03-04] MEDS: MULTIVIT W/MINERALS 1 TAB TABLET GT SCH (09:06)
[2019-03-04] MEDS: PROSOURCE / PROSTAT (PYXIS) 30 ML UDC GT SCH (09:06)
[2019-03-04] MEDS: HEPARIN SODIUM, PORCINE 5000 UNITS/1 ML VIAL SQ SCH ×2 (09:07→20:50)
[2019-03-04] MEDS: INSULIN DETEMIR 100 UNIT/ML CARTRIDGE SQ SCH ×2 (09:08→21:36)
[2019-03-04 14:20] VITALS: BP 128/74
[2019-03-04] MEDS: NEPRO 1,000 ML BOTTLE GT PRN (17:05)
[2019-03-04 18:47] VITALS: BP 121/70
[2019-03-04 19:41] VITALS: BP 112/77
[2019-03-04] MEDS: SENNOSIDES 8.6 MG TABLET GT SCH (21:36)
--- NOTE | 2019-03-04 21:46 | NUR ---
PT RECEIVE STABLE ON MV, SETTINGS ARE AC 15 450 +5 30 % FIO2, ALARMS ARE ON AND AUDIBLE, SPARE TRACH AND AMBU BAG IS AT BEDSIDE, TRACH PATENT AND SECURED WILL CONTINUE TO MONITOR. Addendum: 03/04/19 at 2147 by RENEE CANO RT Amended: Links added.
[2019-03-05 00:29] VITALS: BP 114/60
[2019-03-05] MEDS: IPRATROPIUM NEB FS 0.5 MG/2.5 ML AMPUL.NEB NEB SCH ×4 (00:47→19:51)
[2019-03-05] MEDS: METOCLOPRAMIDE HCL 10 MG TABLET GT SCH ×4 (06:03→23:56)
[2019-03-05] MEDS: BLOOD SUGAR DIAGNOSTIC 1 EACH STRIP IN SCH ×4 (06:03→23:56)
[2019-03-05] MEDS: BIOTENE MOISTURIZING MM SCH ×4 (06:03→23:56)
[2019-03-05] MEDS: INSULIN REGULAR, HUMAN 100 UNIT/ML 3 ML VIAL SQ PRN ×4 (06:04→23:58)
[2019-03-05 06:28] VITALS: BP 116/66
[2019-03-05 07:57] VITALS: BP 100/57
[2019-03-05] MEDS: HYDROGEN PEROXIDE 480 ML BOTTLE TP SCH ×2 (09:00→20:55)
[2019-03-05] MEDS: DOCUSATE SODIUM LIQ 100 MG/10 ML UDC GT SCH (09:06)
[2019-03-05] MEDS: ACIDOPHILUS/BULGARICUS 1 EACH TAB.CHEW GT SCH ×2 (09:06→21:00)
[2019-03-05] MEDS: MULTIVIT W/MINERALS 1 TAB TABLET GT SCH (09:07)
[2019-03-05] MEDS: ASCORBIC ACID 500 MG TABLET GT SCH (09:07)
[2019-03-05] MEDS: ZINC SULFATE 220 MG CAPSULE GT SCH (09:07)
[2019-03-05] MEDS: PROSOURCE / PROSTAT (PYXIS) 30 ML UDC GT SCH (09:07)
[2019-03-05] MEDS: METOPROLOL TARTRATE 25 MG TABLET GT SCH ×2 (09:07→21:00)
[2019-03-05] MEDS: HEPARIN SODIUM, PORCINE 5000 UNITS/1 ML VIAL SQ SCH ×2 (09:08→21:00)
[2019-03-05] MEDS: COD LIVER OIL/ZINC OXIDE 120 GM TUBE TP SCH ×2 (09:09→21:00)
[2019-03-05] MEDS: Z GUARD REMEDY 4 OZ OINT TP SCH ×4 (09:09→21:00)
[2019-03-05] MEDS: VITAMINS A AND D 56.7 GM TUBE TP SCH ×2 (09:09→21:00)
[2019-03-05] MEDS: INSULIN DETEMIR 100 UNIT/ML CARTRIDGE SQ SCH ×2 (09:09→21:00)
[2019-03-05 15:45] VITALS: BP 125/68
--- NOTE | 2019-03-05 16:04 | NUR ---
Seen by EUNICE Melo. Asked her what to apply on pt's abdominal wound which is now covered with a scab. Received order to apply Mepilex dressing.
[2019-03-05] MEDS: NEPRO 1,000 ML BOTTLE GT PRN (17:04)
[2019-03-05 18:29] VITALS: BP 110/62
--- NOTE | 2019-03-05 19:52 | NUR ---
PT RECEIVED WITH A SHILEY 8 TRACH ON THE VENT WITH NOTED SETTINGS. PT RESPONDS TO STIMULI WHEN SX'D. VENT ALARMS ARE SET AND AUDIBLE WITH AMBU BAG BY BEDSIDE. CYTOTECHNOLOGIST CUFF PRESSURE NOTED. VENT IS PLUGGED INTO RED OUTLET. BREATHING TX GIVEN WITH NO ADVERSE REACTIONS. SX DONE PRN. NO RESPIRATORY DISTRESS NOTED AT THIS TIME, WILL CONTINUE TO MONITOR.
[2019-03-05 20:14] VITALS: BP 138/55
[2019-03-05] MEDS: SENNOSIDES 8.6 MG TABLET GT SCH (22:43)
[2019-03-06] VITALS: BP 123/62
[2019-03-06] MEDS: IPRATROPIUM NEB FS 0.5 MG/2.5 ML AMPUL.NEB NEB SCH ×4 (01:32→19:43)
[2019-03-06] MEDS: BLOOD SUGAR DIAGNOSTIC 1 EACH STRIP IN SCH ×4 (05:41→23:15)
[2019-03-06] MEDS: BIOTENE MOISTURIZING MM SCH ×4 (05:41→23:05)
[2019-03-06] MEDS: METOCLOPRAMIDE HCL 10 MG TABLET GT SCH ×4 (05:41→23:05)
[2019-03-06] MEDS: INSULIN REGULAR, HUMAN 100 UNIT/ML 3 ML VIAL SQ PRN ×4 (05:42→23:16)
[2019-03-06 06:00] VITALS: BP 125/62
[2019-03-06 08:12] VITALS: BP 154/60
[2019-03-06] MEDS: HYDROGEN PEROXIDE 480 ML BOTTLE TP SCH ×2 (08:55→20:57)
--- NOTE | 2019-03-06 09:28 | NUR ---
YNES completed the SS portion of 2nd Quarter MDS. The patients responsible green party is her daughter, Jennifer Araiza [phone] who is involved and supportive. Per EMR, the patient is DNR, ventilator dependent with trach and TF [PEG Nephro 40ml/hr x 20 hr+Prostat daily+10/15 water flush 250ml every 4 hr]. The pt. is on contact isolation for MRSA. The patients last dental appointment by Dr. Sheppard was 07/21/18. The pt.s last optometry visit by Dr. Perkins was 02/06/19. The patients last podiatry visit by Dr. Vail 03/06/19.
[2019-03-06] MEDS: DOCUSATE SODIUM LIQ 100 MG/10 ML UDC GT SCH (09:30)
[2019-03-06] MEDS: ACIDOPHILUS/BULGARICUS 1 EACH TAB.CHEW GT SCH ×2 (09:30→20:51)
[2019-03-06] MEDS: METOPROLOL TARTRATE 25 MG TABLET GT SCH ×2 (09:31→20:52)
[2019-03-06] MEDS: ZINC SULFATE 220 MG CAPSULE GT SCH (09:31)
[2019-03-06] MEDS: PROSOURCE / PROSTAT (PYXIS) 30 ML UDC GT SCH (09:31)
[2019-03-06] MEDS: ASCORBIC ACID 500 MG TABLET GT SCH (09:31)
[2019-03-06] MEDS: MULTIVIT W/MINERALS 1 TAB TABLET GT SCH (09:31)
[2019-03-06] MEDS: HEPARIN SODIUM, PORCINE 5000 UNITS/1 ML VIAL SQ SCH ×2 (09:31→20:53)
[2019-03-06] MEDS: INSULIN DETEMIR 100 UNIT/ML CARTRIDGE SQ SCH ×2 (09:32→20:57)
[2019-03-06] MEDS: VITAMINS A AND D 56.7 GM TUBE TP SCH ×2 (09:32→20:57)
[2019-03-06] MEDS: Z GUARD REMEDY 4 OZ OINT TP SCH ×4 (09:32→20:57)
[2019-03-06] MEDS: COD LIVER OIL/ZINC OXIDE 120 GM TUBE TP SCH ×2 (09:32→20:57)
[2019-03-06 12:00] VITALS: BP 136/68
[2019-03-06 18:34] VITALS: BP 122/71
[2019-03-06 20:32] VITALS: BP 107/69
[2019-03-06] MEDS: SENNOSIDES 8.6 MG TABLET GT SCH (21:04)
[2019-03-07 00:14] VITALS: BP 102/53
[2019-03-07] MEDS: IPRATROPIUM NEB FS 0.5 MG/2.5 ML AMPUL.NEB NEB SCH ×4 (01:51→19:29)
[2019-03-07] MEDS: METOCLOPRAMIDE HCL 10 MG TABLET GT SCH ×4 (05:15→23:19)
[2019-03-07] MEDS: BIOTENE MOISTURIZING MM SCH ×4 (05:15→23:19)
[2019-03-07] MEDS: BLOOD SUGAR DIAGNOSTIC 1 EACH STRIP IN SCH ×4 (05:15→23:19)
[2019-03-07] MEDS: MAGNESIUM HYDROXIDE 30 ML UDC PO PRN (05:15)
[2019-03-07] MEDS: INSULIN REGULAR, HUMAN 100 UNIT/ML 3 ML VIAL SQ PRN ×4 (05:16→23:20)
[2019-03-07 06:20] VITALS: BP 119/56
[2019-03-07] MEDS: NEPRO 1,000 ML BOTTLE GT PRN (06:32)
[2019-03-07 07:08] VITALS: BP 116/54
[2019-03-07] MEDS: ZINC SULFATE 220 MG CAPSULE GT SCH (08:39)
[2019-03-07] MEDS: MULTIVIT W/MINERALS 1 TAB TABLET GT SCH (08:39)
[2019-03-07] MEDS: DOCUSATE SODIUM LIQ 100 MG/10 ML UDC GT SCH (08:39)
[2019-03-07] MEDS: ASCORBIC ACID 500 MG TABLET GT SCH (08:39)
[2019-03-07] MEDS: PROSOURCE / PROSTAT (PYXIS) 30 ML UDC GT SCH (08:39)
[2019-03-07] MEDS: ACIDOPHILUS/BULGARICUS 1 EACH TAB.CHEW GT SCH ×2 (08:39→20:21)
[2019-03-07] MEDS: METOPROLOL TARTRATE 25 MG TABLET GT SCH ×2 (08:39→20:22)
[2019-03-07] MEDS: HEPARIN SODIUM, PORCINE 5000 UNITS/1 ML VIAL SQ SCH ×2 (08:55→20:23)
[2019-03-07] MEDS: INSULIN DETEMIR 100 UNIT/ML CARTRIDGE SQ SCH ×2 (08:56→20:53)
[2019-03-07] MEDS: Z GUARD REMEDY 4 OZ OINT TP SCH ×4 (09:00→20:23)
[2019-03-07] MEDS: VITAMINS A AND D 56.7 GM TUBE TP SCH ×2 (09:00→20:23)
[2019-03-07] MEDS: COD LIVER OIL/ZINC OXIDE 120 GM TUBE TP SCH ×2 (09:00→20:23)
[2019-03-07] MEDS: HYDROGEN PEROXIDE 480 ML BOTTLE TP SCH ×2 (09:00→20:23)
[2019-03-07 12:00] VITALS: BP 133/57
[2019-03-07 18:11] VITALS: BP 118/70
[2019-03-07 19:56] VITALS: BP 118/44
[2019-03-07] MEDS: SENNOSIDES 8.6 MG TABLET GT SCH (21:15)
[2019-03-08 00:38] VITALS: BP 120/76
[2019-03-08] MEDS: IPRATROPIUM NEB FS 0.5 MG/2.5 ML AMPUL.NEB NEB SCH ×4 (01:29→19:32)
[2019-03-08] MEDS: METOCLOPRAMIDE HCL 10 MG TABLET GT SCH ×4 (05:07→23:12)
[2019-03-08] MEDS: NEPRO 1,000 ML BOTTLE GT PRN (05:07)
[2019-03-08] MEDS: BIOTENE MOISTURIZING MM SCH ×4 (05:07→23:12)
[2019-03-08] MEDS: BLOOD SUGAR DIAGNOSTIC 1 EACH STRIP IN SCH ×4 (05:18→23:12)
[2019-03-08] MEDS: INSULIN REGULAR, HUMAN 100 UNIT/ML 3 ML VIAL SQ PRN ×4 (05:19→23:13)
[2019-03-08 06:09] VITALS: BP 112/51
[2019-03-08 07:27] VITALS: BP 114/58
[2019-03-08] MEDS: COD LIVER OIL/ZINC OXIDE 120 GM TUBE TP SCH ×2 (09:00→21:47)
[2019-03-08] MEDS: Z GUARD REMEDY 4 OZ OINT TP SCH ×4 (09:00→21:48)
[2019-03-08] MEDS: VITAMINS A AND D 56.7 GM TUBE TP SCH ×2 (09:00→21:48)
[2019-03-08] MEDS: HYDROGEN PEROXIDE 480 ML BOTTLE TP SCH ×2 (09:00→21:02)
[2019-03-08] MEDS: ACIDOPHILUS/BULGARICUS 1 EACH TAB.CHEW GT SCH ×2 (09:23→21:46)
[2019-03-08] MEDS: DOCUSATE SODIUM LIQ 100 MG/10 ML UDC GT SCH (09:23)
[2019-03-08] MEDS: PROSOURCE / PROSTAT (PYXIS) 30 ML UDC GT SCH (09:24)
[2019-03-08] MEDS: ZINC SULFATE 220 MG CAPSULE GT SCH (09:24)
[2019-03-08] MEDS: METOPROLOL TARTRATE 25 MG TABLET GT SCH ×2 (09:24→21:46)
[2019-03-08] MEDS: MULTIVIT W/MINERALS 1 TAB TABLET GT SCH (09:24)
[2019-03-08] MEDS: ASCORBIC ACID 500 MG TABLET GT SCH (09:24)
[2019-03-08] MEDS: HEPARIN SODIUM, PORCINE 5000 UNITS/1 ML VIAL SQ SCH ×2 (09:24→21:47)
[2019-03-08] MEDS: INSULIN DETEMIR 100 UNIT/ML CARTRIDGE SQ SCH ×2 (09:25→21:47)
[2019-03-08 12:00] VITALS: BP 110/59
--- NOTE | 2019-03-08 15:53 | NUR ---
PT RECEIVED WITH A SHILEY 8 TRACH ON THE VENT WITH NOTED SETTINGS. PT RESPONDS TO STIMULI WHEN SX'D. VENT ALARMS ARE SET AND AUDIBLE WITH AMBU BAG BY BEDSIDE. LINES TENDER CUFF PRESSURE NOTED. VENT IS PLUGGED INTO RED OUTLET. BREATHING TX GIVEN WITH NO ADVERSE REACTIONS. SX DONE PRN. NO RESPIRATORY DISTRESS NOTED AT THIS TIME, WILL CONTINUE TO MONITOR.
--- NOTE | 2019-03-08 18:05 | NUR ---
Seen and examined by Dr. Patrick, no new order given.
[2019-03-08 18:06] VITALS: BP 116/60
[2019-03-08 19:34] VITALS: BP 137/66
[2019-03-08] MEDS: SENNOSIDES 8.6 MG TABLET GT SCH (21:48)
[2019-03-09] MEDS: IPRATROPIUM NEB FS 0.5 MG/2.5 ML AMPUL.NEB NEB SCH ×4 (01:38→19:03)
[2019-03-09 03:20] VITALS: BP 120/64
--- NOTE | 2019-03-09 05:42 | NUR ---
RT Patient was received on continuous vent support on noted vent settings.Alarms are set and audible.Breathing treatment was given,tracheal suctioning was done. Airway patent and secured. Patient stable throughout the shift. Will continue to monitor. Addendum: 03/09/19 at 0543 by NYA RICHARDS RT Amended: Links added.
[2019-03-09] MEDS: BIOTENE MOISTURIZING MM SCH ×4 (05:57→23:51)
[2019-03-09] MEDS: BLOOD SUGAR DIAGNOSTIC 1 EACH STRIP IN SCH ×4 (05:57→23:51)
[2019-03-09] MEDS: METOCLOPRAMIDE HCL 10 MG TABLET GT SCH ×4 (05:57→23:51)
[2019-03-09] MEDS: INSULIN REGULAR, HUMAN 100 UNIT/ML 3 ML VIAL SQ PRN ×4 (05:58→23:52)
[2019-03-09 06:11] VITALS: BP 116/67
[2019-03-09 07:54] VITALS: BP 142/68
[2019-03-09] MEDS: HYDROGEN PEROXIDE 480 ML BOTTLE TP SCH ×2 (08:01→21:04)
[2019-03-09] MEDS: Z GUARD REMEDY 4 OZ OINT TP SCH ×4 (09:00→21:18)
[2019-03-09] MEDS: VITAMINS A AND D 56.7 GM TUBE TP SCH ×2 (09:00→21:18)
[2019-03-09] MEDS: COD LIVER OIL/ZINC OXIDE 120 GM TUBE TP SCH ×2 (09:00→21:18)
[2019-03-09] MEDS: ACIDOPHILUS/BULGARICUS 1 EACH TAB.CHEW GT SCH ×2 (09:27→21:17)
[2019-03-09] MEDS: DOCUSATE SODIUM LIQ 100 MG/10 ML UDC GT SCH (09:27)
[2019-03-09] MEDS: PROSOURCE / PROSTAT (PYXIS) 30 ML UDC GT SCH (09:30)
[2019-03-09] MEDS: MULTIVIT W/MINERALS 1 TAB TABLET GT SCH (09:30)
[2019-03-09] MEDS: ASCORBIC ACID 500 MG TABLET GT SCH (09:30)
[2019-03-09] MEDS: METOPROLOL TARTRATE 25 MG TABLET GT SCH ×2 (09:30→21:17)
[2019-03-09] MEDS: ZINC SULFATE 220 MG CAPSULE GT SCH (09:30)
[2019-03-09] MEDS: HEPARIN SODIUM, PORCINE 5000 UNITS/1 ML VIAL SQ SCH ×2 (09:31→21:17)
[2019-03-09] MEDS: INSULIN DETEMIR 100 UNIT/ML CARTRIDGE SQ SCH ×2 (09:32→21:58)
[2019-03-09] MEDS: NEPRO 1,000 ML BOTTLE GT PRN (11:49)
[2019-03-09 12:00] VITALS: BP 126/74
[2019-03-09 13:09] LABS: BASOPHILS % (AUTO) 0.4 % (0.0-2.0); EOSINOPHILS % (AUTO) 1.9 % (0.0-6.0); HEMATOCRIT 37 % (33-45); HEMOGLOBIN 11.8 g/dL (11.5-14.8); LYMPHOCYTES # (AUTO) 1.8 /CMM (0.8-4.8); LYMPHOCYTES % (AUTO) 19.4 % (20.0-44.0); MEAN CORPUSCULAR HGB CONC 32 g/dl (31.0-36.0); MEAN CORPUSCULAR VOLUME 83 fL (82-100); MONOCYTES # (AUTO) 0.8 /CMM (0.1-1.30); MONOCYTES % (AUTO) 8.6 % (2.0-12.0); NEUTROPHILS # (AUTO) 6.5 /CMM (1.8-8.9); NEUTROPHILS % (AUTO) 69.7 % (43.0-81.0); PLATELET COUNT (AUTO) 216 /CMM (150-450); RED BLOOD CELL COUNT(AUTO) 4.51 MIL/uL (4.0-5.2); WHITE BLOOD COUNT (AUTO) 9.4 K/uL (4.3-11.0)
[2019-03-09 13:18] LABS: CARBON DIOXIDE 26 mmol/L (21-32); CHLORIDE 97 mmol/L (98-107); CREATININE 2.1 mg/dL (0.6-1.3); GLUCOSE 254 mg/dL (74-106); MAGNESIUM 3.5 mg/dL (1.8-2.4); PHOSPHORUS 4.4 mg/dL (2.5-4.9); POTASSIUM 5.5 mmol/L (3.5-5.1); SODIUM SERUM 131 mmol/L (136-145)
[2019-03-09 13:20] LABS: UREA NITROGEN, BLOOD 120 mg/dL (7-18)
--- NOTE | 2019-03-09 13:45 | NUR ---
Relayed lab results to Dr Patrick.
[2019-03-09 15:10] LABS: EOSINOPHILS % (MANUAL) 2 % (0-4); LYMPHOCYTES % (MANUAL) 20 % (16-48); MONOCYTES % (MANUAL) 8 % (0-11.0); NEUTROPHILS % (MANUAL) 70 (42-76)
--- NOTE | 2019-03-09 17:50 | NUR ---
Dr Patrick ordered NS at 80 mL/hr IV until further order, BUN 120 Cr 2.1. Informed pt's daughter.
[2019-03-09 18:00] VITALS: BP 148/63
[2019-03-09] MEDS ORDERED: IV D5/ 0.9% NACL 1,000 ML IV SCH (18:00)
[2019-03-09] MEDS: IV NS 0.9% 1,000 ML IV PRN (19:27)
--- NOTE | 2019-03-09 19:27 | NUR ---
Started peripheral IV on right upper arm with good blood return. Pt tolerated well. Started NS at 80 mL/hr.
[2019-03-09 20:01] VITALS: BP 120/55
[2019-03-09] MEDS: SENNOSIDES 8.6 MG TABLET GT SCH (21:18)
[2019-03-10] VITALS: BP 122/60
[2019-03-10] MEDS: IPRATROPIUM NEB FS 0.5 MG/2.5 ML AMPUL.NEB NEB SCH ×5 (00:42→23:05)
[2019-03-10] MEDS: METOCLOPRAMIDE HCL 10 MG TABLET GT SCH ×4 (05:44→23:34)
[2019-03-10] MEDS: BIOTENE MOISTURIZING MM SCH ×4 (05:44→23:34)
[2019-03-10] MEDS: BLOOD SUGAR DIAGNOSTIC 1 EACH STRIP IN SCH ×4 (06:05→23:34)
[2019-03-10] MEDS: INSULIN REGULAR, HUMAN 100 UNIT/ML 3 ML VIAL SQ PRN ×4 (06:06→23:35)
[2019-03-10 06:33] VITALS: BP 128/68
[2019-03-10 07:34] VITALS: BP 100/78
[2019-03-10] MEDS: HYDROGEN PEROXIDE 480 ML BOTTLE TP SCH ×2 (09:00→21:53)
[2019-03-10] MEDS: DOCUSATE SODIUM LIQ 100 MG/10 ML UDC GT SCH (09:28)
[2019-03-10] MEDS: MULTIVIT W/MINERALS 1 TAB TABLET GT SCH (09:28)
[2019-03-10] MEDS: METOPROLOL TARTRATE 25 MG TABLET GT SCH ×2 (09:28→21:52)
[2019-03-10] MEDS: ZINC SULFATE 220 MG CAPSULE GT SCH (09:28)
[2019-03-10] MEDS: ASCORBIC ACID 500 MG TABLET GT SCH (09:28)
[2019-03-10] MEDS: PROSOURCE / PROSTAT (PYXIS) 30 ML UDC GT SCH (09:28)
[2019-03-10] MEDS: ACIDOPHILUS/BULGARICUS 1 EACH TAB.CHEW GT SCH ×2 (09:28→21:52)
[2019-03-10] MEDS: HEPARIN SODIUM, PORCINE 5000 UNITS/1 ML VIAL SQ SCH ×2 (09:31→21:52)
[2019-03-10] MEDS: Z GUARD REMEDY 4 OZ OINT TP SCH ×4 (09:32→21:53)
[2019-03-10] MEDS: VITAMINS A AND D 56.7 GM TUBE TP SCH ×2 (09:32→21:53)
[2019-03-10] MEDS: COD LIVER OIL/ZINC OXIDE 120 GM TUBE TP SCH ×2 (09:32→21:53)
[2019-03-10] MEDS: INSULIN DETEMIR 100 UNIT/ML CARTRIDGE SQ SCH ×2 (09:52→21:53)
[2019-03-10 12:00] VITALS: BP 118/69
--- NOTE | 2019-03-10 13:00 | NUR ---
Resident given a shower in the shower room, terminal cleaning of the room done by EVS. Contact isolation discontinued per protocol.
[2019-03-10 18:00] VITALS: BP 124/70
[2019-03-10] MEDS: NEPRO 1,000 ML BOTTLE GT PRN (18:06)
[2019-03-10] MEDS: IV NS 0.9% 1,000 ML IV PRN (19:17)
[2019-03-10 21:22] VITALS: BP 121/56
[2019-03-10] MEDS: SENNOSIDES 8.6 MG TABLET GT SCH (21:53)
[2019-03-11 01:19] VITALS: BP 125/64
[2019-03-11] MEDS: METOCLOPRAMIDE HCL 10 MG TABLET GT SCH ×3 (05:51→17:40)
[2019-03-11] MEDS: BLOOD SUGAR DIAGNOSTIC 1 EACH STRIP IN SCH ×3 (05:51→17:41)
[2019-03-11] MEDS: BIOTENE MOISTURIZING MM SCH ×3 (05:52→17:40)
[2019-03-11] MEDS: INSULIN REGULAR, HUMAN 100 UNIT/ML 3 ML VIAL SQ PRN ×3 (05:53→17:59)
[2019-03-11 06:05] VITALS: BP 130/68
[2019-03-11 07:44] VITALS: BP 95/52
[2019-03-11] MEDS: IPRATROPIUM NEB FS 0.5 MG/2.5 ML AMPUL.NEB NEB SCH ×3 (07:48→19:26)
[2019-03-11] MEDS: METOPROLOL TARTRATE 25 MG TABLET GT SCH ×2 (09:00→21:00)
[2019-03-11] MEDS: HYDROGEN PEROXIDE 480 ML BOTTLE TP SCH ×2 (09:00→19:26)
[2019-03-11] MEDS: DOCUSATE SODIUM LIQ 100 MG/10 ML UDC GT SCH (09:01)
[2019-03-11] MEDS: ACIDOPHILUS/BULGARICUS 1 EACH TAB.CHEW GT SCH ×2 (09:01→21:00)
[2019-03-11] MEDS: ASCORBIC ACID 500 MG TABLET GT SCH (09:02)
[2019-03-11] MEDS: PROSOURCE / PROSTAT (PYXIS) 30 ML UDC GT SCH (09:02)
[2019-03-11] MEDS: ZINC SULFATE 220 MG CAPSULE GT SCH (09:03)
[2019-03-11] MEDS: HEPARIN SODIUM, PORCINE 5000 UNITS/1 ML VIAL SQ SCH ×2 (09:05→21:00)
[2019-03-11] MEDS: COD LIVER OIL/ZINC OXIDE 120 GM TUBE TP SCH ×2 (09:16→21:00)
[2019-03-11] MEDS: INSULIN DETEMIR 100 UNIT/ML CARTRIDGE SQ SCH ×2 (09:16→21:00)
[2019-03-11] MEDS: VITAMINS A AND D 56.7 GM TUBE TP SCH ×2 (09:16→21:00)
[2019-03-11] MEDS: Z GUARD REMEDY 4 OZ OINT TP SCH ×4 (09:16→21:00)
[2019-03-11] MEDS: MULTIVIT W/MINERALS 1 TAB TABLET GT SCH (09:17)
--- NOTE | 2019-03-11 09:21 | NUR ---
Late entry for 03/09/19 AVERY Hoover ordered to DC contact isolation for MRSA right 2nd and 5th fingers. Wound already healed. Informed daughter.
[2019-03-11 12:00] VITALS: BP 110/72
[2019-03-11 18:00] VITALS: BP 128/74
[2019-03-11] MEDS: NEPRO 1,000 ML BOTTLE GT PRN (18:01)
[2019-03-11] MEDS: IV NS 0.9% 1,000 ML IV PRN (18:04)
--- NOTE | 2019-03-11 19:27 | NUR ---
RT NOTE: RECEIVED TRACH PT ON [facility] VENT ON NOTED SETTINGS PER MD ORDERS. TRACH IS PATENT AND SECURED. TRACH CARE DONE. LINOLEUM TILE LAYER DONE. Q6 BREATHING TX GIVEN WITH NO ADVERSE REACTION NOTED. SX DONE PRN. VENT PLUGGED INTO RED OUTLET. ALARMS ON AND AUDIBLE. RODERICKU BAG @ BEDSIDE. NO RESP DISTRESS AT THIS TIME. WILL CONT TO MONITOR PT. Addendum: 03/12/19 at 0256 by PREMA SOTO RT Amended: Links added.
[2019-03-11 20:36] VITALS: BP 123/51
[2019-03-11] MEDS: SENNOSIDES 8.6 MG TABLET GT SCH (22:04)
[2019-03-12] VITALS: BP 100/79
[2019-03-12] MEDS: BLOOD SUGAR DIAGNOSTIC 1 EACH STRIP IN SCH ×5 (00:10→23:17)
[2019-03-12] MEDS: METOCLOPRAMIDE HCL 10 MG TABLET GT SCH ×5 (00:10→23:17)
[2019-03-12] MEDS: BIOTENE MOISTURIZING MM SCH ×5 (00:11→23:17)
[2019-03-12] MEDS: INSULIN REGULAR, HUMAN 100 UNIT/ML 3 ML VIAL SQ PRN ×5 (00:13→23:20)
[2019-03-12] MEDS: IPRATROPIUM NEB FS 0.5 MG/2.5 ML AMPUL.NEB NEB SCH ×4 (01:13→19:39)
[2019-03-12 06:00] VITALS: BP 111/58
[2019-03-12 07:16] VITALS: BP 132/41
[2019-03-12] MEDS: HEPARIN SODIUM, PORCINE 5000 UNITS/1 ML VIAL SQ SCH ×2 (09:00→21:25)
[2019-03-12] MEDS: PROSOURCE / PROSTAT (PYXIS) 30 ML UDC GT SCH (09:00)
[2019-03-12] MEDS: Z GUARD REMEDY 4 OZ OINT TP SCH ×4 (09:00→21:28)
[2019-03-12] MEDS: METOPROLOL TARTRATE 25 MG TABLET GT SCH ×2 (09:00→21:24)
[2019-03-12] MEDS: HYDROGEN PEROXIDE 480 ML BOTTLE TP SCH ×2 (09:00→19:39)
[2019-03-12] MEDS: ASCORBIC ACID 500 MG TABLET GT SCH (09:00)
[2019-03-12] MEDS: ZINC SULFATE 220 MG CAPSULE GT SCH (09:00)
[2019-03-12] MEDS: DOCUSATE SODIUM LIQ 100 MG/10 ML UDC GT SCH (09:00)
[2019-03-12] MEDS: VITAMINS A AND D 56.7 GM TUBE TP SCH ×2 (09:00→21:28)
[2019-03-12] MEDS: ACIDOPHILUS/BULGARICUS 1 EACH TAB.CHEW GT SCH ×2 (09:00→21:24)
[2019-03-12] MEDS: COD LIVER OIL/ZINC OXIDE 120 GM TUBE TP SCH ×2 (09:00→21:28)
[2019-03-12] MEDS: MULTIVIT W/MINERALS 1 TAB TABLET GT SCH (09:00)
[2019-03-12] MEDS: INSULIN DETEMIR 100 UNIT/ML CARTRIDGE SQ SCH ×2 (09:00→21:25)
[2019-03-12 12:00] VITALS: BP 118/60
[2019-03-12 18:48] VITALS: BP 132/79
--- NOTE | 2019-03-12 18:55 | NUR ---
Seen by AVERY Mata. Received order to do follow-up BMP tomorrow.
[2019-03-12] MEDS: IV NS 0.9% 1,000 ML IV PRN (19:26)
[2019-03-12 19:57] VITALS: BP 151/67
[2019-03-12] MEDS: SENNOSIDES 8.6 MG TABLET GT SCH (21:28)
[2019-03-13 00:39] VITALS: BP 137/74
[2019-03-13] MEDS: IPRATROPIUM NEB FS 0.5 MG/2.5 ML AMPUL.NEB NEB SCH ×4 (01:39→19:31)
[2019-03-13] MEDS: BLOOD SUGAR DIAGNOSTIC 1 EACH STRIP IN SCH ×4 (05:41→23:21)
[2019-03-13] MEDS: METOCLOPRAMIDE HCL 10 MG TABLET GT SCH ×4 (05:41→23:21)
[2019-03-13] MEDS: NEPRO 1,000 ML BOTTLE GT PRN (05:41)
[2019-03-13] MEDS: BIOTENE MOISTURIZING MM SCH ×4 (05:41→23:21)
[2019-03-13] MEDS: INSULIN REGULAR, HUMAN 100 UNIT/ML 3 ML VIAL SQ PRN ×4 (05:42→23:23)
[2019-03-13 06:34] VITALS: BP 136/59
[2019-03-13 07:31] VITALS: BP 161/67
[2019-03-13 07:47] LABS: CALCIUM, SERUM 9.3 mg/dL (8.5-10.1); CARBON DIOXIDE 25 mmol/L (21-32); CHLORIDE 105 mmol/L (98-107); CREATININE 1.8 mg/dL (0.6-1.3); GLUCOSE 208 mg/dL (74-106); POTASSIUM 4.6 mmol/L (3.5-5.1); SODIUM SERUM 139 mmol/L (136-145)
[2019-03-13 07:50] LABS: UREA NITROGEN, BLOOD 81 mg/dL (7-18)
[2019-03-13] MEDS: HYDROGEN PEROXIDE 480 ML BOTTLE TP SCH ×2 (09:00→21:12)
[2019-03-13] MEDS: INSULIN DETEMIR 100 UNIT/ML CARTRIDGE SQ SCH ×2 (09:00→21:45)
[2019-03-13] MEDS: DOCUSATE SODIUM LIQ 100 MG/10 ML UDC GT SCH (09:06)
[2019-03-13] MEDS: ACIDOPHILUS/BULGARICUS 1 EACH TAB.CHEW GT SCH ×2 (09:06→21:38)
[2019-03-13] MEDS: Z GUARD REMEDY 4 OZ OINT TP SCH ×4 (09:07→21:39)
[2019-03-13] MEDS: ZINC SULFATE 220 MG CAPSULE GT SCH (09:07)
[2019-03-13] MEDS: PROSOURCE / PROSTAT (PYXIS) 30 ML UDC GT SCH (09:07)
[2019-03-13] MEDS: METOPROLOL TARTRATE 25 MG TABLET GT SCH ×2 (09:07→21:39)
[2019-03-13] MEDS: HEPARIN SODIUM, PORCINE 5000 UNITS/1 ML VIAL SQ SCH ×2 (09:07→21:39)
[2019-03-13] MEDS: MULTIVIT W/MINERALS 1 TAB TABLET GT SCH (09:07)
[2019-03-13] MEDS: COD LIVER OIL/ZINC OXIDE 120 GM TUBE TP SCH ×2 (09:07→21:39)
[2019-03-13] MEDS: ASCORBIC ACID 500 MG TABLET GT SCH (09:07)
[2019-03-13] MEDS: VITAMINS A AND D 56.7 GM TUBE TP SCH ×2 (09:08→21:39)
[2019-03-13] MEDS: IV NS 0.9% 1,000 ML IV PRN (09:25)
[2019-03-13 12:00] VITALS: BP 142/65
[2019-03-13 18:00] VITALS: BP 136/62
[2019-03-13 20:08] VITALS: BP 127/58
[2019-03-13] MEDS: SENNOSIDES 8.6 MG TABLET GT SCH (21:40)
[2019-03-14 00:04] VITALS: BP 129/52
[2019-03-14] MEDS: IV NS 0.9% 1,000 ML IV PRN ×2 (00:32→15:18)
[2019-03-14] MEDS: IPRATROPIUM NEB FS 0.5 MG/2.5 ML AMPUL.NEB NEB SCH ×4 (01:43→19:34)
[2019-03-14] MEDS: NEPRO 1,000 ML BOTTLE GT PRN (05:22)
[2019-03-14] MEDS: METOCLOPRAMIDE HCL 10 MG TABLET GT SCH ×3 (05:22→17:41)
[2019-03-14] MEDS: BIOTENE MOISTURIZING MM SCH ×3 (05:22→17:41)
[2019-03-14] MEDS: BLOOD SUGAR DIAGNOSTIC 1 EACH STRIP IN SCH ×3 (05:22→17:41)
[2019-03-14] MEDS: INSULIN REGULAR, HUMAN 100 UNIT/ML 3 ML VIAL SQ PRN ×4 (05:23→23:19)
[2019-03-14 06:01] VITALS: BP 140/56
[2019-03-14 08:02] VITALS: BP 126/67
[2019-03-14] MEDS: HYDROGEN PEROXIDE 480 ML BOTTLE TP SCH ×2 (08:03→20:50)
[2019-03-14] MEDS: COD LIVER OIL/ZINC OXIDE 120 GM TUBE TP SCH ×2 (09:00→20:50)
[2019-03-14] MEDS: Z GUARD REMEDY 4 OZ OINT TP SCH ×4 (09:00→20:50)
[2019-03-14] MEDS: VITAMINS A AND D 56.7 GM TUBE TP SCH ×2 (09:00→20:50)
[2019-03-14] MEDS: DOCUSATE SODIUM LIQ 100 MG/10 ML UDC GT SCH (09:07)
[2019-03-14] MEDS: ACIDOPHILUS/BULGARICUS 1 EACH TAB.CHEW GT SCH ×2 (09:07→20:49)
[2019-03-14] MEDS: METOPROLOL TARTRATE 25 MG TABLET GT SCH ×2 (09:07→20:49)
[2019-03-14] MEDS: PROSOURCE / PROSTAT (PYXIS) 30 ML UDC GT SCH (09:08)
[2019-03-14] MEDS: ASCORBIC ACID 500 MG TABLET GT SCH (09:08)
[2019-03-14] MEDS: ZINC SULFATE 220 MG CAPSULE GT SCH (09:09)
[2019-03-14] MEDS: MULTIVIT W/MINERALS 1 TAB TABLET GT SCH (09:46)
[2019-03-14] MEDS: HEPARIN SODIUM, PORCINE 5000 UNITS/1 ML VIAL SQ SCH ×2 (09:49→20:50)
[2019-03-14] MEDS: INSULIN DETEMIR 100 UNIT/ML CARTRIDGE SQ SCH ×2 (09:49→21:35)
[2019-03-14 12:00] VITALS: BP 128/65
--- NOTE | 2019-03-14 15:44 | NUR ---
RT NOTES TRACH TUBE IN PLACE, PATENT, AND SECURED WITH TRACH TIE. ALARMS ON AND AUDIBLE. VENT PLUGGED IN TO RED OUTLET. BACK UP TRACH AND AMBU BAG BY THE BEDSIDE. NO SIGNS OF ANY DISTRESS AT THIS TIME. WILL CONTINUE TO MONITOR. Addendum: 03/14/19 at 1544 by ANDRES MARINO RT Amended: Links added.
[2019-03-14 18:10] VITALS: BP 162/72
[2019-03-14] MEDS: CLONIDINE HCL 0.1 MG TABLET GT PRN (18:18)
[2019-03-14 19:37] VITALS: BP 134/56
[2019-03-14] MEDS: SENNOSIDES 8.6 MG TABLET GT SCH (21:35)
[2019-03-15] VITALS (7 sets, daily range): BP systolic 127–158; BP diastolic 60–78
[2019-03-15] MEDS: IPRATROPIUM NEB FS 0.5 MG/2.5 ML AMPUL.NEB NEB SCH ×4 (01:00→19:44)
[2019-03-15] MEDS: INSULIN REGULAR, HUMAN 100 UNIT/ML 3 ML VIAL SQ PRN ×4 (01:15→17:30)
[2019-03-15] MEDS: CLONIDINE HCL 0.1 MG TABLET GT PRN ×2 (01:16→12:44)
[2019-03-15] MEDS: BIOTENE MOISTURIZING MM SCH ×5 (05:28→23:59)
[2019-03-15] MEDS: BLOOD SUGAR DIAGNOSTIC 1 EACH STRIP IN SCH ×5 (05:28→23:59)
[2019-03-15] MEDS: METOCLOPRAMIDE HCL 10 MG TABLET GT SCH ×5 (05:28→23:59)
[2019-03-15] MEDS: NEPRO 1,000 ML BOTTLE GT PRN (05:29)
[2019-03-15] MEDS: IV NS 0.9% 1,000 ML IV PRN ×2 (08:57→22:21)
[2019-03-15] MEDS: COD LIVER OIL/ZINC OXIDE 120 GM TUBE TP SCH ×2 (09:00→20:48)
[2019-03-15] MEDS: HYDROGEN PEROXIDE 480 ML BOTTLE TP SCH ×2 (09:00→19:45)
[2019-03-15] MEDS: HEPARIN SODIUM, PORCINE 5000 UNITS/1 ML VIAL SQ SCH ×2 (09:00→20:38)
[2019-03-15] MEDS: INSULIN DETEMIR 100 UNIT/ML CARTRIDGE SQ SCH ×2 (09:00→20:48)
[2019-03-15] MEDS: Z GUARD REMEDY 4 OZ OINT TP SCH ×4 (09:00→20:49)
[2019-03-15] MEDS: VITAMINS A AND D 56.7 GM TUBE TP SCH ×2 (09:00→20:49)
[2019-03-15] MEDS: DOCUSATE SODIUM LIQ 100 MG/10 ML UDC GT SCH (09:46)
[2019-03-15] MEDS: ACIDOPHILUS/BULGARICUS 1 EACH TAB.CHEW GT SCH ×2 (09:46→20:36)
[2019-03-15] MEDS: METOPROLOL TARTRATE 25 MG TABLET GT SCH ×2 (09:48→20:36)
[2019-03-15] MEDS: MULTIVIT W/MINERALS 1 TAB TABLET GT SCH (09:52)
[2019-03-15] MEDS: ASCORBIC ACID 500 MG TABLET GT SCH (09:52)
[2019-03-15] MEDS: PROSOURCE / PROSTAT (PYXIS) 30 ML UDC GT SCH (09:52)
[2019-03-15] MEDS: ZINC SULFATE 220 MG CAPSULE GT SCH (09:52)
--- NOTE | 2019-03-15 16:39 | NUR ---
Seen and examined by Dr. Patrick no new orders.
--- NOTE | 2019-03-15 19:45 | NUR ---
RT NOTE: RECEIVED TRACH PT ON [facility] VENT ON NOTED SETTINGS PER MD ORDERS. TRACH IS PATENT AND SECURED. TRACH CARE DONE. PLATFORM BUILDER DONE. Q6 BREATHING TX GIVEN WITH NO ADVERSE REACTION NOTED. SX DONE PRN. VENT PLUGGED INTO RED OUTLET. ALARMS ON AND AUDIBLE. RODERICKU BAG @ BEDSIDE. NO RESP DISTRESS AT THIS TIME. WILL CONT TO MONITOR PT. Addendum: 03/16/19 at 0246 by PREMA SOTO RT Amended: Links added.
[2019-03-15] MEDS: SENNOSIDES 8.6 MG TABLET GT SCH (21:58)
[2019-03-16] MEDS: INSULIN REGULAR, HUMAN 100 UNIT/ML 3 ML VIAL SQ PRN ×5 (00:08→23:34)
[2019-03-16 00:24] VITALS: BP 142/73
[2019-03-16] MEDS: IPRATROPIUM NEB FS 0.5 MG/2.5 ML AMPUL.NEB NEB SCH ×4 (01:38→19:39)
[2019-03-16] MEDS: METOCLOPRAMIDE HCL 10 MG TABLET GT SCH ×4 (05:48→23:33)
[2019-03-16] MEDS: NEPRO 1,000 ML BOTTLE GT PRN (05:48)
[2019-03-16] MEDS: BIOTENE MOISTURIZING MM SCH ×4 (05:49→23:33)
[2019-03-16] MEDS: BLOOD SUGAR DIAGNOSTIC 1 EACH STRIP IN SCH ×4 (05:49→23:33)
[2019-03-16 06:47] VITALS: BP 138/57
[2019-03-16 07:25] VITALS: BP 146/69
[2019-03-16] MEDS: HYDROGEN PEROXIDE 480 ML BOTTLE TP SCH ×2 (08:12→19:39)
[2019-03-16] MEDS: PROSOURCE / PROSTAT (PYXIS) 30 ML UDC GT SCH (09:55)
[2019-03-16] MEDS: METOPROLOL TARTRATE 25 MG TABLET GT SCH ×2 (09:55→21:50)
[2019-03-16] MEDS: ZINC SULFATE 220 MG CAPSULE GT SCH (09:55)
[2019-03-16] MEDS: ACIDOPHILUS/BULGARICUS 1 EACH TAB.CHEW GT SCH ×2 (09:55→21:50)
[2019-03-16] MEDS: ASCORBIC ACID 500 MG TABLET GT SCH (09:55)
[2019-03-16] MEDS: MULTIVIT W/MINERALS 1 TAB TABLET GT SCH (09:55)
[2019-03-16] MEDS: DOCUSATE SODIUM LIQ 100 MG/10 ML UDC GT SCH (09:55)
[2019-03-16] MEDS: HEPARIN SODIUM, PORCINE 5000 UNITS/1 ML VIAL SQ SCH ×2 (09:56→21:51)
[2019-03-16] MEDS: INSULIN DETEMIR 100 UNIT/ML CARTRIDGE SQ SCH ×2 (09:56→21:52)
[2019-03-16] MEDS: VITAMINS A AND D 56.7 GM TUBE TP SCH ×2 (09:56→21:52)
[2019-03-16] MEDS: COD LIVER OIL/ZINC OXIDE 120 GM TUBE TP SCH ×2 (09:57→21:52)
[2019-03-16] MEDS: Z GUARD REMEDY 4 OZ OINT TP SCH ×4 (09:57→21:52)
[2019-03-16 12:00] VITALS: BP 146/72
[2019-03-16] MEDS: IV NS 0.9% 1,000 ML IV PRN (12:15)
[2019-03-16 18:00] VITALS: BP 148/65
[2019-03-16 19:47] VITALS: BP 141/50
[2019-03-16] MEDS: SENNOSIDES 8.6 MG TABLET GT SCH (21:52)
[2019-03-17] VITALS: BP 130/62
[2019-03-17] MEDS: IPRATROPIUM NEB FS 0.5 MG/2.5 ML AMPUL.NEB NEB SCH ×4 (01:18→15:00)
[2019-03-17] MEDS: IV NS 0.9% 1,000 ML IV PRN (02:35)
[2019-03-17] MEDS: METOCLOPRAMIDE HCL 10 MG TABLET GT SCH ×4 (06:03→23:30)
[2019-03-17] MEDS: BLOOD SUGAR DIAGNOSTIC 1 EACH STRIP IN SCH ×4 (06:03→23:30)
[2019-03-17] MEDS: BIOTENE MOISTURIZING MM SCH ×4 (06:03→23:30)
[2019-03-17] MEDS: INSULIN REGULAR, HUMAN 100 UNIT/ML 3 ML VIAL SQ PRN ×4 (06:04→23:31)
[2019-03-17 06:33] VITALS: BP 126/70
[2019-03-17 07:25] VITALS: BP 131/88
[2019-03-17] MEDS: HYDROGEN PEROXIDE 480 ML BOTTLE TP SCH ×2 (08:28→20:24)
[2019-03-17] MEDS: ACIDOPHILUS/BULGARICUS 1 EACH TAB.CHEW GT SCH ×2 (09:28→21:51)
[2019-03-17] MEDS: MULTIVIT W/MINERALS 1 TAB TABLET GT SCH (09:28)
[2019-03-17] MEDS: DOCUSATE SODIUM LIQ 100 MG/10 ML UDC GT SCH (09:28)
[2019-03-17] MEDS: METOPROLOL TARTRATE 25 MG TABLET GT SCH ×2 (09:28→21:51)
[2019-03-17] MEDS: PROSOURCE / PROSTAT (PYXIS) 30 ML UDC GT SCH (09:28)
[2019-03-17] MEDS: ZINC SULFATE 220 MG CAPSULE GT SCH (09:28)
[2019-03-17] MEDS: ASCORBIC ACID 500 MG TABLET GT SCH (09:28)
[2019-03-17] MEDS: HEPARIN SODIUM, PORCINE 5000 UNITS/1 ML VIAL SQ SCH ×2 (09:29→21:52)
[2019-03-17] MEDS: Z GUARD REMEDY 4 OZ OINT TP SCH ×4 (09:30→21:53)
[2019-03-17] MEDS: COD LIVER OIL/ZINC OXIDE 120 GM TUBE TP SCH ×2 (09:30→21:53)
[2019-03-17] MEDS: VITAMINS A AND D 56.7 GM TUBE TP SCH ×2 (09:30→21:53)
[2019-03-17] MEDS: INSULIN DETEMIR 100 UNIT/ML CARTRIDGE SQ SCH ×2 (09:52→21:52)
[2019-03-17 12:00] VITALS: BP 133/72
[2019-03-17] MEDS: NEPRO 1,000 ML BOTTLE GT PRN (15:14)
[2019-03-17 18:24] VITALS: BP 142/76
[2019-03-17 20:14] VITALS: BP 143/60
[2019-03-17] MEDS: SENNOSIDES 8.6 MG TABLET GT SCH (21:53)
[2019-03-18] VITALS: BP 140/70
[2019-03-18] MEDS: IPRATROPIUM NEB FS 0.5 MG/2.5 ML AMPUL.NEB NEB SCH ×4 (01:04→19:56)
[2019-03-18] MEDS: IV NS 0.9% 1,000 ML IV PRN (03:36)
[2019-03-18] MEDS: METOCLOPRAMIDE HCL 10 MG TABLET GT SCH ×3 (06:09→17:43)
[2019-03-18] MEDS: BIOTENE MOISTURIZING MM SCH ×3 (06:09→17:43)
[2019-03-18] MEDS: BLOOD SUGAR DIAGNOSTIC 1 EACH STRIP IN SCH ×3 (06:09→17:43)
[2019-03-18] MEDS: INSULIN REGULAR, HUMAN 100 UNIT/ML 3 ML VIAL SQ PRN ×2 (06:10→13:35)
[2019-03-18 06:49] VITALS: BP 140/70
[2019-03-18 07:33] VITALS: BP 163/89
[2019-03-18 07:33] LABS: CALCIUM, SERUM 9.2 mg/dL (8.5-10.1); CARBON DIOXIDE 25 mmol/L (21-32); CHLORIDE 105 mmol/L (98-107); CREATININE 1.5 mg/dL (0.6-1.3); GLUCOSE 149 mg/dL (74-106); POTASSIUM 3.8 mmol/L (3.5-5.1); SODIUM SERUM 140 mmol/L (136-145); UREA NITROGEN, BLOOD 53 mg/dL (7-18)
[2019-03-18] MEDS: HYDROGEN PEROXIDE 480 ML BOTTLE TP SCH ×2 (07:48→21:48)
[2019-03-18] MEDS: ACIDOPHILUS/BULGARICUS 1 EACH TAB.CHEW GT SCH ×2 (09:14→21:06)
[2019-03-18] MEDS: METOPROLOL TARTRATE 25 MG TABLET GT SCH ×2 (09:14→21:07)
[2019-03-18] MEDS: ZINC SULFATE 220 MG CAPSULE GT SCH (09:14)
[2019-03-18] MEDS: ASCORBIC ACID 500 MG TABLET GT SCH (09:14)
[2019-03-18] MEDS: DOCUSATE SODIUM LIQ 100 MG/10 ML UDC GT SCH (09:14)
[2019-03-18] MEDS: PROSOURCE / PROSTAT (PYXIS) 30 ML UDC GT SCH (09:14)
[2019-03-18] MEDS: MULTIVIT W/MINERALS 1 TAB TABLET GT SCH (09:14)
[2019-03-18] MEDS: INSULIN DETEMIR 100 UNIT/ML CARTRIDGE SQ SCH ×2 (09:15→21:08)
[2019-03-18] MEDS: Z GUARD REMEDY 4 OZ OINT TP SCH ×4 (09:15→21:08)
[2019-03-18] MEDS: COD LIVER OIL/ZINC OXIDE 120 GM TUBE TP SCH ×2 (09:15→21:08)
[2019-03-18] MEDS: HEPARIN SODIUM, PORCINE 5000 UNITS/1 ML VIAL SQ SCH ×2 (09:15→21:07)
[2019-03-18] MEDS: VITAMINS A AND D 56.7 GM TUBE TP SCH ×2 (09:16→21:08)
[2019-03-18 12:00] VITALS: BP 146/72
--- NOTE | 2019-03-18 12:53 | NUR ---
Seen and examined by Dr. Patrick, reviewed recent BMP result (BUN 53 and Creat 1.5) with order to dc current IVF. Resident's daughter Jennifer at bedside and aware of the plan. Order carried out. Resident was also seen by Lucero Mata NP, NNO given.
[2019-03-18] MEDS: NEPRO 1,000 ML BOTTLE GT PRN (16:55)
[2019-03-18 18:30] VITALS: BP 160/76
[2019-03-18] MEDS: CLONIDINE HCL 0.1 MG TABLET GT PRN (18:53)
[2019-03-18 20:30] VITALS: BP 150/57
[2019-03-18] MEDS: SENNOSIDES 8.6 MG TABLET GT SCH (21:08)
--- NOTE | 2019-03-18 21:49 | NUR ---
RECEIVED PT STABLE ON MV, SETTINGS ARE AC 15 450 +5 @ 30% FIO2, ALARMS ARE ON AND AUDIBLE, VENT PLUG IN RED OUTLET, BACK UP TRACH AND AMBU BAG IS AT BEDSIDE, TRACH PATENT AND SECURED WILL CONTINUE TO MONITOR Addendum: 03/18/19 at 2150 by RENEE CANO RT Amended: Links added.
[2019-03-19] MEDS: BLOOD SUGAR DIAGNOSTIC 1 EACH STRIP IN SCH ×4 (00:19→18:35)
[2019-03-19] MEDS: METOCLOPRAMIDE HCL 10 MG TABLET GT SCH ×4 (00:19→17:37)
[2019-03-19] MEDS: BIOTENE MOISTURIZING MM SCH ×4 (00:19→17:37)
[2019-03-19] MEDS: CLONIDINE HCL 0.1 MG TABLET GT PRN ×2 (00:20→12:55)
[2019-03-19] MEDS: INSULIN REGULAR, HUMAN 100 UNIT/ML 3 ML VIAL SQ PRN ×4 (00:21→18:37)
[2019-03-19 00:30] VITALS: BP 160/75
[2019-03-19] MEDS: ACETAMINOPHEN 650 MG/20 ML UDC- SA PATIENTS-PAIN ONLY GT PRN (00:35)
[2019-03-19] MEDS: IPRATROPIUM NEB FS 0.5 MG/2.5 ML AMPUL.NEB NEB SCH ×4 (01:58→19:39)
[2019-03-19 06:17] VITALS: BP 136/64
[2019-03-19 07:39] VITALS: BP 145/70
[2019-03-19] MEDS: HYDROGEN PEROXIDE 480 ML BOTTLE TP SCH ×2 (08:04→19:39)
[2019-03-19] MEDS: Z GUARD REMEDY 4 OZ OINT TP SCH ×4 (09:00→21:00)
[2019-03-19] MEDS: VITAMINS A AND D 56.7 GM TUBE TP SCH ×2 (09:00→21:00)
[2019-03-19] MEDS: COD LIVER OIL/ZINC OXIDE 120 GM TUBE TP SCH ×2 (09:00→21:00)
[2019-03-19] MEDS: ZINC SULFATE 220 MG CAPSULE GT SCH (09:26)
[2019-03-19] MEDS: MULTIVIT W/MINERALS 1 TAB TABLET GT SCH (09:26)
[2019-03-19] MEDS: ACIDOPHILUS/BULGARICUS 1 EACH TAB.CHEW GT SCH ×2 (09:26→21:00)
[2019-03-19] MEDS: PROSOURCE / PROSTAT (PYXIS) 30 ML UDC GT SCH (09:26)
[2019-03-19] MEDS: ASCORBIC ACID 500 MG TABLET GT SCH (09:26)
[2019-03-19] MEDS: DOCUSATE SODIUM LIQ 100 MG/10 ML UDC GT SCH (09:26)
[2019-03-19] MEDS: HEPARIN SODIUM, PORCINE 5000 UNITS/1 ML VIAL SQ SCH ×2 (09:27→21:24)
[2019-03-19] MEDS: METOPROLOL TARTRATE 25 MG TABLET GT SCH ×2 (09:58→21:47)
[2019-03-19] MEDS: INSULIN DETEMIR 100 UNIT/ML CARTRIDGE SQ SCH ×2 (10:00→21:25)
[2019-03-19 12:00] VITALS: BP 159/73
[2019-03-19 18:43] VITALS: BP 145/58
--- NOTE | 2019-03-19 19:39 | NUR ---
RT NOTE: RECEIVED TRACH PT ON [facility] VENT ON NOTED SETTINGS PER MD ORDERS. TRACH IS PATENT AND SECURED. TRACH CARE DONE. TAXONOMY TEACHER DONE. Q6 BREATHING TX GIVEN WITH NO ADVERSE REACTION NOTED. SX DONE PRN. VENT PLUGGED INTO RED OUTLET. ALARMS ON AND AUDIBLE. FROY BAG @ BEDSIDE. NO RESP DISTRESS AT THIS TIME. WILL CONT TO MONITOR PT. Addendum: 03/20/19 at 0243 by PREMA SOTO RT Amended: Links added.
[2019-03-19] MEDS: NEPRO 1,000 ML BOTTLE GT PRN (19:40)
[2019-03-19 20:20] VITALS: BP 142/65
[2019-03-19] MEDS: SENNOSIDES 8.6 MG TABLET GT SCH (21:00)
[2019-03-20] VITALS: BP 142/65
[2019-03-20] MEDS: BIOTENE MOISTURIZING MM SCH ×4 (00:06→17:17)
[2019-03-20] MEDS: METOCLOPRAMIDE HCL 10 MG TABLET GT SCH ×4 (00:06→17:17)
[2019-03-20] MEDS: BLOOD SUGAR DIAGNOSTIC 1 EACH STRIP IN SCH ×4 (00:06→18:00)
[2019-03-20] MEDS: INSULIN REGULAR, HUMAN 100 UNIT/ML 3 ML VIAL SQ PRN ×4 (00:08→19:09)
[2019-03-20] MEDS: IPRATROPIUM NEB FS 0.5 MG/2.5 ML AMPUL.NEB NEB SCH ×4 (01:32→20:17)
[2019-03-20 06:00] VITALS: BP 140/60
[2019-03-20 07:37] VITALS: BP 146/72
[2019-03-20] MEDS: MULTIVIT W/MINERALS 1 TAB TABLET GT SCH (09:00)
[2019-03-20] MEDS: HEPARIN SODIUM, PORCINE 5000 UNITS/1 ML VIAL SQ SCH ×2 (09:00→21:40)
[2019-03-20] MEDS: VITAMINS A AND D 56.7 GM TUBE TP SCH ×2 (09:00→21:42)
[2019-03-20] MEDS: INSULIN DETEMIR 100 UNIT/ML CARTRIDGE SQ SCH ×2 (09:00→21:41)
[2019-03-20] MEDS: Z GUARD REMEDY 4 OZ OINT TP SCH ×4 (09:00→21:42)
[2019-03-20] MEDS: COD LIVER OIL/ZINC OXIDE 120 GM TUBE TP SCH ×2 (09:00→21:41)
[2019-03-20] MEDS: HYDROGEN PEROXIDE 480 ML BOTTLE TP SCH ×2 (09:27→21:22)
[2019-03-20] MEDS: DOCUSATE SODIUM LIQ 100 MG/10 ML UDC GT SCH (09:53)
[2019-03-20] MEDS: ACIDOPHILUS/BULGARICUS 1 EACH TAB.CHEW GT SCH ×2 (09:54→21:39)
[2019-03-20] MEDS: PROSOURCE / PROSTAT (PYXIS) 30 ML UDC GT SCH (09:55)
[2019-03-20] MEDS: ZINC SULFATE 220 MG CAPSULE GT SCH (09:57)
[2019-03-20] MEDS: METOPROLOL TARTRATE 25 MG TABLET GT SCH ×2 (09:57→21:39)
[2019-03-20] MEDS: ASCORBIC ACID 500 MG TABLET GT SCH (09:57)
[2019-03-20 18:00] VITALS: BP 146/72
[2019-03-20] MEDS: SENNOSIDES 8.6 MG TABLET GT SCH (21:42)
[2019-03-20] MEDS: NEPRO 1,000 ML BOTTLE GT PRN (21:54)
[2019-03-20 22:03] VITALS: BP 153/86
[2019-03-21] MEDS: BIOTENE MOISTURIZING MM SCH ×5 (00:12→23:30)
[2019-03-21] MEDS: BLOOD SUGAR DIAGNOSTIC 1 EACH STRIP IN SCH ×5 (00:12→23:30)
[2019-03-21] MEDS: METOCLOPRAMIDE HCL 10 MG TABLET GT SCH ×5 (00:12→23:29)
[2019-03-21] MEDS: INSULIN REGULAR, HUMAN 100 UNIT/ML 3 ML VIAL SQ PRN ×5 (00:15→23:31)
[2019-03-21 00:24] VITALS: BP 120/69
[2019-03-21] MEDS: IPRATROPIUM NEB FS 0.5 MG/2.5 ML AMPUL.NEB NEB SCH ×4 (01:53→20:19)
--- NOTE | 2019-03-21 04:18 | NUR ---
RT NOTES PT RECEIVED ON MECHANICAL VENT WITH ORDERED SETTINGS. TRACH TUBE IN PLACE, PATENT, AND SECURED WITH TRACH TIE. ALARMS ON AND AUDIBLE. VENT PLUGGED IN TO RED OUTLET. AMBU BAG AND BACK UP TRACH BY THE BEDSIDE. PT SHOWS NO SIGNS OF DISTRESS AT THIS TIME. Addendum: 03/21/19 at 0418 by ANDRES MARINO RT Amended: Links added.
--- NOTE | 2019-03-21 04:35 | NUR ---
RT NOTES PT RECEIVED ON MECHANICAL VENT WITH ORDERED SETTINGS. TRACH TUBE IN PLACE, PATENT, AND SECURED WITH TRACH TIE. ALARMS ON AND AUDIBLE. VENT PLUGGED IN TO RED OUTLET. AMBU BAG AND BACK UP TRACH BY THE BEDSIDE. PT SHOWS NO SIGNS OF DISTRESS AT THIS TIME. Addendum: 03/21/19 at 0435 by ANDRES MARINO RT Amended: Links added.
[2019-03-21 06:19] VITALS: BP 137/69
[2019-03-21 08:04] VITALS: BP 146/70
[2019-03-21] MEDS: PROSOURCE / PROSTAT (PYXIS) 30 ML UDC GT SCH (08:41)
[2019-03-21] MEDS: ACIDOPHILUS/BULGARICUS 1 EACH TAB.CHEW GT SCH ×2 (08:41→21:18)
[2019-03-21] MEDS: ASCORBIC ACID 500 MG TABLET GT SCH (08:41)
[2019-03-21] MEDS: METOPROLOL TARTRATE 25 MG TABLET GT SCH ×2 (08:41→21:19)
[2019-03-21] MEDS: ZINC SULFATE 220 MG CAPSULE GT SCH (08:41)
[2019-03-21] MEDS: MULTIVIT W/MINERALS 1 TAB TABLET GT SCH (08:41)
[2019-03-21] MEDS: DOCUSATE SODIUM LIQ 100 MG/10 ML UDC GT SCH (08:41)
[2019-03-21] MEDS: INSULIN DETEMIR 100 UNIT/ML CARTRIDGE SQ SCH ×2 (08:42→21:20)
[2019-03-21] MEDS: HEPARIN SODIUM, PORCINE 5000 UNITS/1 ML VIAL SQ SCH ×2 (08:42→21:19)
[2019-03-21] MEDS: Z GUARD REMEDY 4 OZ OINT TP SCH ×6 (08:43→21:20)
[2019-03-21] MEDS: COD LIVER OIL/ZINC OXIDE 120 GM TUBE TP SCH ×2 (08:43→21:20)
[2019-03-21] MEDS: VITAMINS A AND D 56.7 GM TUBE TP SCH ×2 (08:43→21:20)
[2019-03-21] MEDS: HYDROGEN PEROXIDE 480 ML BOTTLE TP SCH ×2 (09:00→20:19)
[2019-03-21 12:00] VITALS: BP 138/58
[2019-03-21 18:50] VITALS: BP 119/57
[2019-03-21 21:13] VITALS: BP 130/57
[2019-03-21] MEDS: SENNOSIDES 8.6 MG TABLET GT SCH (21:20)
[2019-03-22 00:05] VITALS: BP 123/75
[2019-03-22] MEDS: IPRATROPIUM NEB FS 0.5 MG/2.5 ML AMPUL.NEB NEB SCH ×4 (01:49→19:23)
--- NOTE | 2019-03-22 05:36 | NUR ---
RT NOTE PATIENT RECEIVED ON TRACH WITH VENTILATOR. WITH NOTED SETTINGS. TRACH IS PATENT AND SECURED. ALARMS ARE SET AND AUDIBLE. SPARE TRACH AND AMBU BAG IS AT BEDSIDE. PATIENT HAS EQUAL CHEST RISE WITH COARSE BILATERAL BREATH SOUNDS. SUCTION MODERATE AMOUNT OF THICK GREEN SECRETIONS T/O THE NIGHT. PATIENT COUGHED INTERMITTENTLY T/O THE NIGHT. NO SOB NOTED. Addendum: 03/22/19 at 0539 by PHYLLIS WALTER RT Amended: Links added.
[2019-03-22] MEDS: NEPRO 1,000 ML BOTTLE GT PRN (05:57)
[2019-03-22] MEDS: METOCLOPRAMIDE HCL 10 MG TABLET GT SCH ×3 (05:57→17:37)
[2019-03-22] MEDS: BLOOD SUGAR DIAGNOSTIC 1 EACH STRIP IN SCH ×3 (05:57→17:37)
[2019-03-22] MEDS: BIOTENE MOISTURIZING MM SCH ×3 (05:57→17:38)
[2019-03-22] MEDS: INSULIN REGULAR, HUMAN 100 UNIT/ML 3 ML VIAL SQ PRN ×3 (06:00→17:39)
[2019-03-22 06:30] VITALS: BP 157/74
[2019-03-22] MEDS: CLONIDINE HCL 0.1 MG TABLET GT PRN (06:40)
[2019-03-22 07:33] VITALS: BP 142/66
[2019-03-22] MEDS: MULTIVIT W/MINERALS 1 TAB TABLET GT SCH (08:56)
[2019-03-22] MEDS: DOCUSATE SODIUM LIQ 100 MG/10 ML UDC GT SCH (08:56)
[2019-03-22] MEDS: ACIDOPHILUS/BULGARICUS 1 EACH TAB.CHEW GT SCH ×2 (08:56→21:32)
[2019-03-22] MEDS: ASCORBIC ACID 500 MG TABLET GT SCH (08:56)
[2019-03-22] MEDS: ZINC SULFATE 220 MG CAPSULE GT SCH (08:56)
[2019-03-22] MEDS: PROSOURCE / PROSTAT (PYXIS) 30 ML UDC GT SCH (08:56)
[2019-03-22] MEDS: METOPROLOL TARTRATE 25 MG TABLET GT SCH ×2 (08:56→21:32)
[2019-03-22] MEDS: HEPARIN SODIUM, PORCINE 5000 UNITS/1 ML VIAL SQ SCH ×2 (08:58→21:35)
[2019-03-22] MEDS: INSULIN DETEMIR 100 UNIT/ML CARTRIDGE SQ SCH ×2 (08:58→21:48)
[2019-03-22] MEDS: COD LIVER OIL/ZINC OXIDE 120 GM TUBE TP SCH ×2 (08:58→21:36)
[2019-03-22] MEDS: Z GUARD REMEDY 4 OZ OINT TP SCH ×6 (08:58→21:36)
[2019-03-22] MEDS: VITAMINS A AND D 56.7 GM TUBE TP SCH ×2 (08:59→21:36)
[2019-03-22] MEDS: HYDROGEN PEROXIDE 480 ML BOTTLE TP SCH ×2 (09:00→19:23)
[2019-03-22 12:00] VITALS: BP 125/73
[2019-03-22 18:18] VITALS: BP 139/59
--- NOTE | 2019-03-22 19:23 | NUR ---
RT NOTE: RECEIVED TRACH PT ON [facility] VENT ON NOTED SETTINGS PER MD ORDERS. TRACH IS PATENT AND SECURED. TRACH CARE DONE. RECREATION CENTER DIRECTOR DONE. Q6 BREATHING TX GIVEN WITH NO ADVERSE REACTION NOTED. SX DONE PRN. VENT PLUGGED INTO RED OUTLET. ALARMS ON AND AUDIBLE. RODERICKU BAG @ BEDSIDE. NO RESP DISTRESS AT THIS TIME. WILL CONT TO MONITOR PT. Addendum: 03/23/19 at 0250 by PREMA SOTO RT Amended: Links added.
[2019-03-22 19:48] VITALS: BP 116/51
[2019-03-22] MEDS: SENNOSIDES 8.6 MG TABLET GT SCH (21:37)
[2019-03-23 00:38] VITALS: BP 131/68
[2019-03-23] MEDS: INSULIN REGULAR, HUMAN 100 UNIT/ML 3 ML VIAL SQ PRN ×5 (01:11→23:31)
[2019-03-23] MEDS: IPRATROPIUM NEB FS 0.5 MG/2.5 ML AMPUL.NEB NEB SCH ×4 (01:36→19:33)
[2019-03-23] MEDS: METOCLOPRAMIDE HCL 10 MG TABLET GT SCH ×5 (05:13→23:29)
[2019-03-23] MEDS: BLOOD SUGAR DIAGNOSTIC 1 EACH STRIP IN SCH ×5 (05:14→23:29)
[2019-03-23] MEDS: BIOTENE MOISTURIZING MM SCH ×5 (05:14→23:30)
[2019-03-23 06:13] VITALS: BP 137/72
[2019-03-23 07:26] VITALS: BP 162/85
[2019-03-23] MEDS: DOCUSATE SODIUM LIQ 100 MG/10 ML UDC GT SCH (08:51)
[2019-03-23] MEDS: ACIDOPHILUS/BULGARICUS 1 EACH TAB.CHEW GT SCH ×2 (08:51→20:28)
[2019-03-23] MEDS: MULTIVIT W/MINERALS 1 TAB TABLET GT SCH (08:52)
[2019-03-23] MEDS: METOPROLOL TARTRATE 25 MG TABLET GT SCH ×2 (08:52→20:28)
[2019-03-23] MEDS: ASCORBIC ACID 500 MG TABLET GT SCH (08:52)
[2019-03-23] MEDS: HEPARIN SODIUM, PORCINE 5000 UNITS/1 ML VIAL SQ SCH ×2 (08:52→20:29)
[2019-03-23] MEDS: PROSOURCE / PROSTAT (PYXIS) 30 ML UDC GT SCH (08:52)
[2019-03-23] MEDS: ZINC SULFATE 220 MG CAPSULE GT SCH (08:52)
[2019-03-23] MEDS: Z GUARD REMEDY 4 OZ OINT TP SCH ×6 (08:53→20:29)
[2019-03-23] MEDS: COD LIVER OIL/ZINC OXIDE 120 GM TUBE TP SCH ×2 (08:53→20:29)
[2019-03-23] MEDS: VITAMINS A AND D 56.7 GM TUBE TP SCH ×2 (08:53→20:29)
[2019-03-23] MEDS: INSULIN DETEMIR 100 UNIT/ML CARTRIDGE SQ SCH ×2 (08:53→21:42)
[2019-03-23] MEDS: HYDROGEN PEROXIDE 480 ML BOTTLE TP SCH ×2 (09:04→19:33)
[2019-03-23] MEDS: NEPRO 1,000 ML BOTTLE GT PRN (09:51)
--- NOTE | 2019-03-23 10:43 | NUR ---
PT RECEIVE STABLE ON MV, SETTINGS ARE AC 15 , 450 +5 @ 30% FIO2, ALARMS ARE ON AND AUDIBLE, SPARE TRACH AND AMBU BAG IS AT BEDSIDE, VENT IS PLUG IN RED OUTLET, WILL CONTINUE TO MONITOR Addendum: 03/23/19 at 1045 by RENEE CANO RT Amended: Links added.
[2019-03-23 12:00] VITALS: BP 121/70
--- NOTE | 2019-03-23 15:30 | NUR ---
Pt's sacral wound healing well. No open skin noted on sacral area.
[2019-03-23 18:26] VITALS: BP 135/60
[2019-03-23 20:14] VITALS: BP 98/67
[2019-03-23] MEDS: SENNOSIDES 8.6 MG TABLET GT SCH (21:42)
[2019-03-24] VITALS: BP 124/68
[2019-03-24] MEDS: IPRATROPIUM NEB FS 0.5 MG/2.5 ML AMPUL.NEB NEB SCH ×4 (01:46→20:06)
[2019-03-24] MEDS: BLOOD SUGAR DIAGNOSTIC 1 EACH STRIP IN SCH ×4 (05:35→23:36)
[2019-03-24] MEDS: METOCLOPRAMIDE HCL 10 MG TABLET GT SCH ×4 (05:35→23:36)
[2019-03-24] MEDS: BIOTENE MOISTURIZING MM SCH ×4 (05:35→23:36)
[2019-03-24] MEDS: INSULIN REGULAR, HUMAN 100 UNIT/ML 3 ML VIAL SQ PRN ×4 (05:36→23:37)
[2019-03-24 06:21] VITALS: BP 128/66
[2019-03-24 07:33] VITALS: BP 116/73
[2019-03-24] MEDS: ACIDOPHILUS/BULGARICUS 1 EACH TAB.CHEW GT SCH ×2 (08:45→20:18)
[2019-03-24] MEDS: DOCUSATE SODIUM LIQ 100 MG/10 ML UDC GT SCH (08:45)
[2019-03-24] MEDS: ZINC SULFATE 220 MG CAPSULE GT SCH (08:46)
[2019-03-24] MEDS: METOPROLOL TARTRATE 25 MG TABLET GT SCH ×2 (08:46→20:20)
[2019-03-24] MEDS: MULTIVIT W/MINERALS 1 TAB TABLET GT SCH (08:46)
[2019-03-24] MEDS: PROSOURCE / PROSTAT (PYXIS) 30 ML UDC GT SCH (08:46)
[2019-03-24] MEDS: ASCORBIC ACID 500 MG TABLET GT SCH (08:46)
[2019-03-24] MEDS: HEPARIN SODIUM, PORCINE 5000 UNITS/1 ML VIAL SQ SCH ×2 (08:49→20:20)
[2019-03-24] MEDS: INSULIN DETEMIR 100 UNIT/ML CARTRIDGE SQ SCH ×2 (08:50→21:33)
[2019-03-24] MEDS: VITAMINS A AND D 56.7 GM TUBE TP SCH ×2 (09:00→20:23)
[2019-03-24] MEDS: Z GUARD REMEDY 4 OZ OINT TP SCH ×6 (09:00→20:22)
[2019-03-24] MEDS: COD LIVER OIL/ZINC OXIDE 120 GM TUBE TP SCH ×2 (09:00→20:22)
--- NOTE | 2019-03-24 09:10 | NUR ---
RT PT RECEIVED ON ABOVE SETTINGS. PT IS CHELA BLANKENSHIP 8. VENT IS PLUGGED IN TO RED OUTLET. AMBU BAG AT HEAD OF BED. SPARE TRACH AT BEDSIDE. MINIMAL SECRETIONS SUCTIONED. PT IS IN NO APPARENT RESPIRATORY DISTRESS. WILL CONTINUE TO MONITOR. Addendum: 03/24/19 at 0910 by ALECIA CRUZ RT Amended: Links added.
[2019-03-24 12:00] VITALS: BP 122/69
[2019-03-24] MEDS: NEPRO 1,000 ML BOTTLE GT PRN (12:16)
[2019-03-24 18:00] VITALS: BP 118/50
[2019-03-24 20:39] VITALS: BP 130/76
[2019-03-24] MEDS: HYDROGEN PEROXIDE 480 ML BOTTLE TP SCH (21:00)
[2019-03-24] MEDS: SENNOSIDES 8.6 MG TABLET GT SCH (21:34)
[2019-03-25 00:59] VITALS: BP 125/71
[2019-03-25] MEDS: IPRATROPIUM NEB FS 0.5 MG/2.5 ML AMPUL.NEB NEB SCH ×4 (01:15→19:47)
[2019-03-25] MEDS: BIOTENE MOISTURIZING MM SCH ×4 (05:56→23:34)
[2019-03-25] MEDS: METOCLOPRAMIDE HCL 10 MG TABLET GT SCH ×4 (05:56→23:34)
[2019-03-25] MEDS: BLOOD SUGAR DIAGNOSTIC 1 EACH STRIP IN SCH ×4 (05:56→23:34)
[2019-03-25] MEDS: INSULIN REGULAR, HUMAN 100 UNIT/ML 3 ML VIAL SQ PRN ×4 (05:57→23:35)
[2019-03-25 06:23] VITALS: BP 123/62
[2019-03-25 07:34] VITALS: BP 122/50
[2019-03-25] MEDS: HYDROGEN PEROXIDE 480 ML BOTTLE TP SCH ×2 (08:23→20:21)
[2019-03-25] MEDS: COD LIVER OIL/ZINC OXIDE 120 GM TUBE TP SCH ×2 (09:00→20:45)
[2019-03-25] MEDS: VITAMINS A AND D 56.7 GM TUBE TP SCH ×2 (09:00→20:46)
[2019-03-25] MEDS: Z GUARD REMEDY 4 OZ OINT TP SCH ×6 (09:00→20:46)
[2019-03-25] MEDS: ACIDOPHILUS/BULGARICUS 1 EACH TAB.CHEW GT SCH ×2 (09:57→20:44)
[2019-03-25] MEDS: METOPROLOL TARTRATE 25 MG TABLET GT SCH ×2 (09:57→20:44)
[2019-03-25] MEDS: DOCUSATE SODIUM LIQ 100 MG/10 ML UDC GT SCH (09:57)
[2019-03-25] MEDS: PROSOURCE / PROSTAT (PYXIS) 30 ML UDC GT SCH (09:57)
[2019-03-25] MEDS: HEPARIN SODIUM, PORCINE 5000 UNITS/1 ML VIAL SQ SCH ×2 (09:58→20:45)
[2019-03-25] MEDS: ZINC SULFATE 220 MG CAPSULE GT SCH (09:58)
[2019-03-25] MEDS: MULTIVIT W/MINERALS 1 TAB TABLET GT SCH (09:58)
[2019-03-25] MEDS: ASCORBIC ACID 500 MG TABLET GT SCH (09:58)
[2019-03-25] MEDS: INSULIN DETEMIR 100 UNIT/ML CARTRIDGE SQ SCH ×2 (09:59→21:27)
[2019-03-25 12:00] VITALS: BP 127/46
--- NOTE | 2019-03-25 12:27 | NUR ---
Family was not able to attend March Family Support Group today held from 11 am-12 noon. Family will be invited and encouraged to attend next month's Family Support Group.
--- NOTE | 2019-03-25 14:26 | NUR ---
Leather Goods Assembler called the pt.s daughter, Jennifer arellano [phone] inviting family to attend or participate via phone conference in the IDT Plan of Care Conference being held this Wednesday, March 27, 2019 from 12:30pm-1:30pm in the activities room. Per Jennifer, she will not be able to attend due to work schedule conflict. However, Jennifer stated that she stays well informed by charge nurses.
[2019-03-25] MEDS: NEPRO 1,000 ML BOTTLE GT PRN (15:50)
--- NOTE | 2019-03-25 17:05 | NUR ---
RT NOTE RECEIVED PATIENT ON TRACH WITH VENTILATOR. TRACH IS PATENT AND SECURED. VENT ALARMS ARE SET AND AUDIBLE. SPARE TRACH AND AMBU BAG IS AT BEDSIDE. PATIENT HAS EQUAL CHEST RISE WITH COARSE BILATERAL BREATH SOUNDS. SUCTION MODERATE AMOUNT OF THICK GREEN/WHITE SECRETIONS TROUGH OUT THE DAY. TRACH CARE WAS PERFORMED. BREATHING TREATMENTS GIVEN WITH NO ADVERSE REACTION. PATIENT IS SYNC AND COMFORTABLE ON THE VENTILATOR. NO SOB NOTED. Addendum: 03/25/19 at 1706 by PHYLLIS WALTER RT Amended: Links added.
[2019-03-25 18:00] VITALS: BP 128/56
--- NOTE | 2019-03-25 20:36 | NUR ---
PT RCVD TRACH'D ON MECHANICAL VENT WITH CHARTED SETTINGS. PT BIRDIE TX WELL. SX DONE. PT TRACH IS PATENT AND SECURE. VENT ALARMS APPEAR TO BE FUNCTIONING PROPERLY. VENT PLUGGED INTO RED OUTLET. AMBU BAG AT BEDSIDE. NO SOB NOTED. Addendum: 03/25/19 at 2037 by FELICITAS CHRISTIE RT Amended: Links added.
[2019-03-25] MEDS: SENNOSIDES 8.6 MG TABLET GT SCH (21:27)
[2019-03-26] VITALS: BP 116/60
[2019-03-26] MEDS: IPRATROPIUM NEB FS 0.5 MG/2.5 ML AMPUL.NEB NEB SCH ×4 (00:35→20:02)
[2019-03-26] MEDS: BLOOD SUGAR DIAGNOSTIC 1 EACH STRIP IN SCH ×3 (06:07→17:14)
[2019-03-26] MEDS: BIOTENE MOISTURIZING MM SCH ×3 (06:07→17:14)
[2019-03-26] MEDS: METOCLOPRAMIDE HCL 10 MG TABLET GT SCH ×3 (06:07→17:14)
[2019-03-26] MEDS: INSULIN REGULAR, HUMAN 100 UNIT/ML 3 ML VIAL SQ PRN ×3 (06:08→17:15)
[2019-03-26 06:34] VITALS: BP 120/60
[2019-03-26 07:25] VITALS: BP 141/63
[2019-03-26] MEDS: HYDROGEN PEROXIDE 480 ML BOTTLE TP SCH ×2 (08:27→20:34)
[2019-03-26] MEDS: ACIDOPHILUS/BULGARICUS 1 EACH TAB.CHEW GT SCH ×2 (09:00→21:00)
[2019-03-26] MEDS: INSULIN DETEMIR 100 UNIT/ML CARTRIDGE SQ SCH ×2 (09:00→22:05)
[2019-03-26] MEDS: COD LIVER OIL/ZINC OXIDE 120 GM TUBE TP SCH ×2 (09:00→21:00)
[2019-03-26] MEDS: DOCUSATE SODIUM LIQ 100 MG/10 ML UDC GT SCH (09:00)
[2019-03-26] MEDS: HEPARIN SODIUM, PORCINE 5000 UNITS/1 ML VIAL SQ SCH ×2 (09:00→21:00)
[2019-03-26] MEDS: METOPROLOL TARTRATE 25 MG TABLET GT SCH ×2 (09:00→21:00)
[2019-03-26] MEDS: ASCORBIC ACID 500 MG TABLET GT SCH (09:00)
[2019-03-26] MEDS: PROSOURCE / PROSTAT (PYXIS) 30 ML UDC GT SCH (09:00)
[2019-03-26] MEDS: Z GUARD REMEDY 4 OZ OINT TP SCH ×6 (09:00→21:00)
[2019-03-26] MEDS: VITAMINS A AND D 56.7 GM TUBE TP SCH ×2 (09:00→21:00)
[2019-03-26] MEDS: MULTIVIT W/MINERALS 1 TAB TABLET GT SCH (09:00)
[2019-03-26] MEDS: ZINC SULFATE 220 MG CAPSULE GT SCH (09:00)
[2019-03-26 12:00] VITALS: BP 135/61
--- NOTE | 2019-03-26 17:18 | NUR ---
RT NOTE RECEIVED PATIENT ON TRACH WITH VENTILATOR. TRACH IS PATENT AND SECURED. VENT ALARMS ARE SET AND AUDIBLE. VENT IS PLUGGED TO RED OUTLET. SPARE TRACH AND AMBU BAG IS AT BEDSIDE. PATIENT HAS EQUAL CHEST RISE WITH COARSE BILATERAL BREATH SOUNDS. SUCTION MODERATE AMOUNT OF THICK GREEN/WHITE SECRETIONS TROUGH OUT THE DAY. TRACH CARE WAS PERFORMED. BREATHING TREATMENTS GIVEN WITH NO ADVERSE REACTION. PATIENT IS SYNC AND COMFORTABLE ON THE VENTILATOR. NO SOB NOTED Addendum: 03/26/19 at 1719 by PHYLLIS WALTER RT Amended: Links added.
[2019-03-26 18:15] VITALS: BP 137/68
[2019-03-26] MEDS: MAGNESIUM HYDROXIDE 30 ML UDC PO PRN (18:59)
[2019-03-26 20:10] VITALS: BP 143/64
--- NOTE | 2019-03-26 21:20 | NUR ---
RECEIVED PT STABLE ON MV, SETTINGS ARE AC 15 450 +5 @ 30% FIO2, ALARMS ARE ON AND AUDIBLE, VENT PLUG IN RED OUTLET, BACK UP TRACH AND AMBU BAG IS AT BEDSIDE, TRACH PATENT AND SECURED WILL CONTINUE TO MONITOR Addendum: 03/26/19 at 2120 by RENEE CANO RT Amended: Links added.
[2019-03-26] MEDS: SENNOSIDES 8.6 MG TABLET GT SCH (22:11)
[2019-03-27] MEDS: BLOOD SUGAR DIAGNOSTIC 1 EACH STRIP IN SCH ×5 (00:20→23:59)
[2019-03-27] MEDS: METOCLOPRAMIDE HCL 10 MG TABLET GT SCH ×5 (00:20→23:59)
[2019-03-27] MEDS: BIOTENE MOISTURIZING MM SCH ×5 (00:20→23:59)
[2019-03-27] MEDS: INSULIN REGULAR, HUMAN 100 UNIT/ML 3 ML VIAL SQ PRN ×4 (00:22→17:16)
[2019-03-27] MEDS: IPRATROPIUM NEB FS 0.5 MG/2.5 ML AMPUL.NEB NEB SCH ×4 (01:28→19:48)
[2019-03-27 03:30] VITALS: BP 145/67
[2019-03-27 07:33] VITALS: BP 149/68
--- NOTE | 2019-03-27 07:42 | NUR ---
RT PT RECEIVED ON CURRENT VENT SETTINGS. TRACHED WITH SHILEY 8. VENT PLUGGED IN TO RED OUTLET. HOB AT 30 DEGREES. AMBU BAG AT HEAD OF BED. SPARE TRACH AT HEAD OF BED. MINIMAL SECRETIONS SUCTIONED. NO RESPIRATORY DISTRESS NOTED. WILL CONTINUE TO MONITOR. Addendum: 03/27/19 at 1144 by ALECIA CRUZ RT Amended: Links added.
[2019-03-27 07:47] VITALS: BP 130/62
[2019-03-27] MEDS: PROSOURCE / PROSTAT (PYXIS) 30 ML UDC GT SCH (09:00)
[2019-03-27] MEDS: COD LIVER OIL/ZINC OXIDE 120 GM TUBE TP SCH ×2 (09:00→21:30)
[2019-03-27] MEDS: HYDROGEN PEROXIDE 480 ML BOTTLE TP SCH ×2 (09:00→21:00)
[2019-03-27] MEDS: ACIDOPHILUS/BULGARICUS 1 EACH TAB.CHEW GT SCH ×2 (09:00→21:24)
[2019-03-27] MEDS: DOCUSATE SODIUM LIQ 100 MG/10 ML UDC GT SCH (09:00)
[2019-03-27] MEDS: MULTIVIT W/MINERALS 1 TAB TABLET GT SCH (09:00)
[2019-03-27] MEDS: VITAMINS A AND D 56.7 GM TUBE TP SCH ×2 (09:00→21:30)
[2019-03-27] MEDS: Z GUARD REMEDY 4 OZ OINT TP SCH ×6 (09:00→21:30)
[2019-03-27] MEDS: INSULIN DETEMIR 100 UNIT/ML CARTRIDGE SQ SCH ×2 (09:00→21:31)
[2019-03-27] MEDS: HEPARIN SODIUM, PORCINE 5000 UNITS/1 ML VIAL SQ SCH ×2 (09:00→21:25)
[2019-03-27] MEDS: ASCORBIC ACID 500 MG TABLET GT SCH (09:00)
[2019-03-27] MEDS: ZINC SULFATE 220 MG CAPSULE GT SCH (09:00)
[2019-03-27] MEDS: METOPROLOL TARTRATE 25 MG TABLET GT SCH ×2 (09:00→21:25)
[2019-03-27] MEDS: ONDANSETRON HCL 4 MG/5 ML SOLUTION GT PRN (12:32)
[2019-03-27 12:37] VITALS: BP 149/83
--- NOTE | 2019-03-27 15:18 | NUR ---
Plan of Care Conference took place today. The patients responsible republican/ daughter, Jennifer Araiza [phone] could not attend or participate via phone conference. 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 Agarwal and Interdisciplinary team discussed the plan of care in detail. Current orders as well as treatments and medications were reviewed. Please see other disciplines IDT notes for further details
[2019-03-27 18:51] VITALS: BP 133/67
[2019-03-27] MEDS: BISACODYL SUPP (10 MG) 10 MG/SUPP.RECT SUPP.RECT RC PRN (19:06)
[2019-03-27 20:35] VITALS: BP 129/68
[2019-03-27] MEDS: SENNOSIDES 8.6 MG TABLET GT SCH (21:30)
--- NOTE | 2019-03-27 23:08 | NUR ---
RT PATIENT RECEIVED TRACH'D ON [facility] VENT WITH SETTINGS PER MD ORDER. SOLAR DESIGNER/INSTALLER DONE. ALARMS ON AND AUDIBLE. SPARE TRACH AND AMBU BAG AT BEDSIDE. TX'S GIVEN ORDERED. NO ADVERSE REACTIONS. SUCTIONED AND MONITORED PRN. NO SOB NOTED AT THIS TIME. WILL CONTINUE TO MONITOR THE PT FOR ANY CHANGES. Addendum: 03/28/19 at 0012 by WILBERT MILLIGAN RT Amended: Links added.
[2019-03-27] MEDS: NEPRO 1,000 ML BOTTLE GT PRN (23:30)
[2019-03-28 00:03] VITALS: BP 127/89
[2019-03-28] MEDS: IPRATROPIUM NEB FS 0.5 MG/2.5 ML AMPUL.NEB NEB SCH ×4 (00:45→19:55)
[2019-03-28] MEDS: METOCLOPRAMIDE HCL 10 MG TABLET GT SCH ×4 (05:21→23:34)
[2019-03-28] MEDS: BIOTENE MOISTURIZING MM SCH ×4 (05:21→23:34)
[2019-03-28] MEDS: BLOOD SUGAR DIAGNOSTIC 1 EACH STRIP IN SCH ×4 (05:21→23:34)
[2019-03-28] MEDS: INSULIN REGULAR, HUMAN 100 UNIT/ML 3 ML VIAL SQ PRN ×5 (05:22→23:35)
[2019-03-28 06:13] VITALS: BP 126/66
[2019-03-28] MEDS: HYDROGEN PEROXIDE 480 ML BOTTLE TP SCH ×2 (08:22→21:05)
[2019-03-28] MEDS: COD LIVER OIL/ZINC OXIDE 120 GM TUBE TP SCH ×2 (09:00→21:33)
[2019-03-28] MEDS: HEPARIN SODIUM, PORCINE 5000 UNITS/1 ML VIAL SQ SCH ×2 (09:00→21:32)
[2019-03-28] MEDS: DOCUSATE SODIUM LIQ 100 MG/10 ML UDC GT SCH (09:00)
[2019-03-28] MEDS: ZINC SULFATE 220 MG CAPSULE GT SCH (09:00)
[2019-03-28] MEDS: VITAMINS A AND D 56.7 GM TUBE TP SCH ×2 (09:00→21:33)
[2019-03-28] MEDS: Z GUARD REMEDY 4 OZ OINT TP SCH ×6 (09:00→21:33)
[2019-03-28] MEDS: MULTIVIT W/MINERALS 1 TAB TABLET GT SCH (09:00)
[2019-03-28] MEDS: PROSOURCE / PROSTAT (PYXIS) 30 ML UDC GT SCH (09:00)
[2019-03-28] MEDS: METOPROLOL TARTRATE 25 MG TABLET GT SCH ×2 (09:00→21:32)
[2019-03-28] MEDS: ASCORBIC ACID 500 MG TABLET GT SCH (09:00)
[2019-03-28] MEDS: INSULIN DETEMIR 100 UNIT/ML CARTRIDGE SQ SCH ×2 (09:00→21:33)
[2019-03-28] MEDS: ACIDOPHILUS/BULGARICUS 1 EACH TAB.CHEW GT SCH ×2 (09:00→21:30)
[2019-03-28 12:00] VITALS: BP 156/77
[2019-03-28 18:00] VITALS: BP 136/68
[2019-03-28] MEDS: SENNOSIDES 8.6 MG TABLET GT SCH (21:33)
[2019-03-29] VITALS (7 sets, daily range): BP systolic 120–157; BP diastolic 40–83
[2019-03-29] MEDS: IPRATROPIUM NEB FS 0.5 MG/2.5 ML AMPUL.NEB NEB SCH ×4 (01:19→20:12)
[2019-03-29] MEDS: METOCLOPRAMIDE HCL 10 MG TABLET GT SCH ×3 (05:08→18:14)
[2019-03-29] MEDS: BLOOD SUGAR DIAGNOSTIC 1 EACH STRIP IN SCH ×3 (06:08→18:14)
[2019-03-29] MEDS: BIOTENE MOISTURIZING MM SCH ×3 (06:08→18:14)
[2019-03-29] MEDS: INSULIN REGULAR, HUMAN 100 UNIT/ML 3 ML VIAL SQ PRN ×3 (06:10→18:15)
[2019-03-29] MEDS: INSULIN DETEMIR 100 UNIT/ML CARTRIDGE SQ SCH ×2 (09:00→21:33)
[2019-03-29] MEDS: PROSOURCE / PROSTAT (PYXIS) 30 ML UDC GT SCH (09:00)
[2019-03-29] MEDS: Z GUARD REMEDY 4 OZ OINT TP SCH ×6 (09:00→21:34)
[2019-03-29] MEDS: HYDROGEN PEROXIDE 480 ML BOTTLE TP SCH ×2 (09:00→20:12)
[2019-03-29] MEDS: METOPROLOL TARTRATE 25 MG TABLET GT SCH ×2 (09:00→21:32)
[2019-03-29] MEDS: ASCORBIC ACID 500 MG TABLET GT SCH (09:00)
[2019-03-29] MEDS: VITAMINS A AND D 56.7 GM TUBE TP SCH ×2 (09:00→21:35)
[2019-03-29] MEDS: COD LIVER OIL/ZINC OXIDE 120 GM TUBE TP SCH ×2 (09:00→21:34)
[2019-03-29] MEDS: HEPARIN SODIUM, PORCINE 5000 UNITS/1 ML VIAL SQ SCH ×2 (09:00→21:33)
[2019-03-29] MEDS: DOCUSATE SODIUM LIQ 100 MG/10 ML UDC GT SCH (09:00)
[2019-03-29] MEDS: ZINC SULFATE 220 MG CAPSULE GT SCH (09:00)
[2019-03-29] MEDS: ACIDOPHILUS/BULGARICUS 1 EACH TAB.CHEW GT SCH ×2 (09:00→21:32)
[2019-03-29] MEDS: MULTIVIT W/MINERALS 1 TAB TABLET GT SCH (09:00)
[2019-03-29] MEDS: NEPRO 1,000 ML BOTTLE GT PRN (14:54)
--- NOTE | 2019-03-29 21:18 | NUR ---
RT NOTE RECEIVED PATIENT ON TRACH WITH VENTILATOR. TRACH IS PATENT AND SECURED.VENT IS PLUGGED TO RED OUTLET, ALARMS ARE SET AND AUDIBLE. SPARE TRACH AND BVM IS AT BEDSIDE. PATIENT IS STABLE AND IN SYNC WITH THE VENT. PATIENT HAS EQUAL CHEST RISE AND HAS COARSE BILATERAL BREATH SOUNDS. SUCTION SMALL AMOUNT OF THICK GREEN SECRETIONS. GAVE BREATHING TREATMENT WITH NO ADVERSE REACTION. WILL CONTINUE TO MONITOR. Addendum: 03/29/19 at 2119 by PHYLLIS WALTER RT Amended: Links added.
[2019-03-29] MEDS: SENNOSIDES 8.6 MG TABLET GT SCH (21:35)
[2019-03-30 00:05] VITALS: BP 128/55
[2019-03-30] MEDS: BIOTENE MOISTURIZING MM SCH ×5 (00:06→23:13)
[2019-03-30] MEDS: METOCLOPRAMIDE HCL 10 MG TABLET GT SCH ×5 (00:06→23:13)
[2019-03-30] MEDS: BLOOD SUGAR DIAGNOSTIC 1 EACH STRIP IN SCH ×5 (00:06→23:13)
[2019-03-30] MEDS: INSULIN REGULAR, HUMAN 100 UNIT/ML 3 ML VIAL SQ PRN ×5 (00:21→23:14)
[2019-03-30] MEDS: IPRATROPIUM NEB FS 0.5 MG/2.5 ML AMPUL.NEB NEB SCH ×4 (01:29→19:28)
[2019-03-30 06:07] VITALS: BP 138/64
[2019-03-30 07:36] VITALS: BP 133/60
[2019-03-30] MEDS: ASCORBIC ACID 500 MG TABLET GT SCH (09:00)
[2019-03-30] MEDS: Z GUARD REMEDY 4 OZ OINT TP SCH ×6 (09:00→21:31)
[2019-03-30] MEDS: HEPARIN SODIUM, PORCINE 5000 UNITS/1 ML VIAL SQ SCH ×2 (09:00→21:30)
[2019-03-30] MEDS: ZINC SULFATE 220 MG CAPSULE GT SCH (09:00)
[2019-03-30] MEDS: PROSOURCE / PROSTAT (PYXIS) 30 ML UDC GT SCH (09:00)
[2019-03-30] MEDS: ACIDOPHILUS/BULGARICUS 1 EACH TAB.CHEW GT SCH ×2 (09:00→21:29)
[2019-03-30] MEDS: DOCUSATE SODIUM LIQ 100 MG/10 ML UDC GT SCH (09:00)
[2019-03-30] MEDS: METOPROLOL TARTRATE 25 MG TABLET GT SCH ×2 (09:00→21:29)
[2019-03-30] MEDS: INSULIN DETEMIR 100 UNIT/ML CARTRIDGE SQ SCH ×2 (09:00→21:30)
[2019-03-30] MEDS: COD LIVER OIL/ZINC OXIDE 120 GM TUBE TP SCH ×2 (09:00→21:30)
[2019-03-30] MEDS: HYDROGEN PEROXIDE 480 ML BOTTLE TP SCH ×2 (09:00→20:17)
[2019-03-30] MEDS: MULTIVIT W/MINERALS 1 TAB TABLET GT SCH (09:00)
[2019-03-30] MEDS: VITAMINS A AND D 56.7 GM TUBE TP SCH ×2 (09:00→21:31)
[2019-03-30 14:50] VITALS: BP 123/68
--- NOTE | 2019-03-30 15:34 | NUR ---
SW received the Family Satisfaction Survey brought in by the patient's daughter, Jennifer Araiza. Survey was filed in appropriate folder.
[2019-03-30] MEDS: NEPRO 1,000 ML BOTTLE GT PRN (15:43)
[2019-03-30 18:09] VITALS: BP 131/62
--- NOTE | 2019-03-30 19:57 | NUR ---
PT RCVD TRACH'D ON MECHANICAL VENT WITH CHARTED SETTINGS. PT BIRDIE TX WELL. SX DONE. PT TRACH IS PATENT AND SECURE. VENT ALARMS APPEAR TO BE FUNCTIONING PROPERLY. VENT PLUGGED INTO RED OUTLET. AMBU BAG AT BEDSIDE. NO SOB NOTED. Addendum: 03/30/19 at 1957 by FELICITAS CHRISTIE RT Amended: Links added.
[2019-03-30 20:53] VITALS: BP 128/55
[2019-03-30] MEDS: SENNOSIDES 8.6 MG TABLET GT SCH (21:31)
[2019-03-31] MEDS: IPRATROPIUM NEB FS 0.5 MG/2.5 ML AMPUL.NEB NEB SCH ×4 (00:42→19:34)
[2019-03-31 02:25] VITALS: BP 126/58
[2019-03-31] MEDS: METOCLOPRAMIDE HCL 10 MG TABLET GT SCH ×3 (05:50→17:14)
[2019-03-31] MEDS: BLOOD SUGAR DIAGNOSTIC 1 EACH STRIP IN SCH ×3 (05:50→17:20)
[2019-03-31] MEDS: INSULIN REGULAR, HUMAN 100 UNIT/ML 3 ML VIAL SQ PRN ×3 (05:51→17:21)
[2019-03-31] MEDS: BIOTENE MOISTURIZING MM SCH ×3 (05:51→17:14)
[2019-03-31 06:05] VITALS: BP 119/59
--- NOTE | 2019-03-31 07:57 | NUR ---
RT PT RECEIVED ON CURRENT SETTINGS. TRACHED WITH SHILEY 8. AMBU BAG AT HEAD OF BED. SPARE TRACH AT BEDSIDE. VENT PLUGGED IN TO RED OUTLET. ALARMS ON AND AUDIBLE. NO RESPIRATORY DISTRESS. WILL CONTINUE TO MONITOR. Addendum: 03/31/19 at 1130 by ALECIA CRUZ RT Amended: Links added.
[2019-03-31 08:01] VITALS: BP 130/75
[2019-03-31] MEDS: MULTIVIT W/MINERALS 1 TAB TABLET GT SCH (08:28)
[2019-03-31] MEDS: ACIDOPHILUS/BULGARICUS 1 EACH TAB.CHEW GT SCH ×2 (08:28→21:41)
[2019-03-31] MEDS: PROSOURCE / PROSTAT (PYXIS) 30 ML UDC GT SCH (08:28)
[2019-03-31] MEDS: ASCORBIC ACID 500 MG TABLET GT SCH (08:28)
[2019-03-31] MEDS: ZINC SULFATE 220 MG CAPSULE GT SCH (08:28)
[2019-03-31] MEDS: DOCUSATE SODIUM LIQ 100 MG/10 ML UDC GT SCH (08:28)
[2019-03-31] MEDS: METOPROLOL TARTRATE 25 MG TABLET GT SCH ×2 (08:29→21:41)
[2019-03-31] MEDS: HEPARIN SODIUM, PORCINE 5000 UNITS/1 ML VIAL SQ SCH ×2 (08:31→21:42)
[2019-03-31] MEDS: INSULIN DETEMIR 100 UNIT/ML CARTRIDGE SQ SCH ×2 (08:32→21:42)
[2019-03-31] MEDS: VITAMINS A AND D 56.7 GM TUBE TP SCH ×2 (08:33→21:43)
[2019-03-31] MEDS: Z GUARD REMEDY 4 OZ OINT TP SCH ×6 (08:33→21:43)
[2019-03-31] MEDS: COD LIVER OIL/ZINC OXIDE 120 GM TUBE TP SCH ×2 (08:33→21:43)
[2019-03-31] MEDS: HYDROGEN PEROXIDE 480 ML BOTTLE TP SCH ×2 (09:00→20:06)
[2019-03-31] MEDS: NEPRO 1,000 ML BOTTLE GT PRN (11:58)
[2019-03-31 12:00] VITALS: BP 112/73
[2019-03-31 18:40] VITALS: BP 123/70
[2019-03-31 20:16] VITALS: BP 128/76
--- NOTE | 2019-03-31 20:21 | NUR ---
PT RCVD TRACH'D ON MECHANICAL VENT WITH CHARTED SETTINGS. PT BIRDIE TX WELL. SX DONE. PT TRACH IS PATENT AND SECURE. VENT ALARMS APPEAR TO BE FUNCTIONING PROPERLY. VENT PLUGGED INTO RED OUTLET. AMBU BAG AT BEDSIDE. NO SOB NOTED. Addendum: 03/31/19 at 2021 by FELICITAS CHRISTIE RT Amended: Links added.
[2019-03-31] MEDS: SENNOSIDES 8.6 MG TABLET GT SCH (21:43)
[2019-04-01 00:26] VITALS: BP 116/62
[2019-04-01] MEDS: METOCLOPRAMIDE HCL 10 MG TABLET GT SCH ×5 (00:27→23:49)
[2019-04-01] MEDS: BLOOD SUGAR DIAGNOSTIC 1 EACH STRIP IN SCH ×5 (00:27→23:49)
[2019-04-01] MEDS: BIOTENE MOISTURIZING MM SCH ×5 (00:28→23:49)
[2019-04-01] MEDS: INSULIN REGULAR, HUMAN 100 UNIT/ML 3 ML VIAL SQ PRN ×5 (00:29→23:51)
[2019-04-01] MEDS: IPRATROPIUM NEB FS 0.5 MG/2.5 ML AMPUL.NEB NEB SCH ×4 (01:08→19:31)
[2019-04-01 06:04] VITALS: BP 121/67
[2019-04-01 07:43] VITALS: BP_SYST 121; BP_SYST 135; BP_DIAS 48; BP_DIAS 65
[2019-04-01] MEDS: HYDROGEN PEROXIDE 480 ML BOTTLE TP SCH ×2 (08:22→20:24)
--- NOTE | 2019-04-01 08:22 | NUR ---
RT PT RECEIVED ON CURRENT SETTINGS. TRACHED WITH SHILEY 8. AMBU BAG AT HEAD OF BED. SPARE TRACH AT BEDSIDE. VENT PLUGGED IN TO RED OUTLET. ALARMS ON AND AUDIBLE. NO RESPIRATORY DISTRESS. WILL CONTINUE TO MONITOR. Addendum: 04/01/19 at 0908 by ALECIA CRUZ RT Amended: Links added.
[2019-04-01] MEDS: INSULIN DETEMIR 100 UNIT/ML CARTRIDGE SQ SCH ×2 (09:00→21:59)
[2019-04-01] MEDS: MULTIVIT W/MINERALS 1 TAB TABLET GT SCH (09:00)
[2019-04-01] MEDS: ASCORBIC ACID 500 MG TABLET GT SCH (09:00)
[2019-04-01] MEDS: COD LIVER OIL/ZINC OXIDE 120 GM TUBE TP SCH ×2 (09:00→21:33)
[2019-04-01] MEDS: ZINC SULFATE 220 MG CAPSULE GT SCH (09:00)
[2019-04-01] MEDS: PROSOURCE / PROSTAT (PYXIS) 30 ML UDC GT SCH (09:00)
[2019-04-01] MEDS: VITAMINS A AND D 56.7 GM TUBE TP SCH ×2 (09:00→21:33)
[2019-04-01] MEDS: HEPARIN SODIUM, PORCINE 5000 UNITS/1 ML VIAL SQ SCH ×2 (09:00→21:32)
[2019-04-01] MEDS: DOCUSATE SODIUM LIQ 100 MG/10 ML UDC GT SCH (09:00)
[2019-04-01] MEDS: ACIDOPHILUS/BULGARICUS 1 EACH TAB.CHEW GT SCH ×2 (09:00→21:31)
[2019-04-01] MEDS: Z GUARD REMEDY 4 OZ OINT TP SCH ×6 (09:00→21:33)
[2019-04-01] MEDS: METOPROLOL TARTRATE 25 MG TABLET GT SCH ×2 (09:00→21:32)
[2019-04-01 12:00] VITALS: BP 130/70
[2019-04-01] MEDS: NEPRO 1,000 ML BOTTLE GT PRN (15:06)
--- NOTE | 2019-04-01 15:30 | NUR ---
Seen and examined by Maria Fernanda Mata no new order given.
[2019-04-01 18:28] VITALS: BP 118/72
--- NOTE | 2019-04-01 20:24 | NUR ---
RT NOTE PT RECEIVED TRACHED ON MECHANICAL VENTILATION. AMBU BAG/BACK UP TRACH @ BEDSIDE. TX GIVEN, NO ADVERSE REACTIONS NOTED. SX DONE, TRACH SECURED AND PATENT. ALARMS ON AND AUDIBLE. VENT PLUGGED TO RED OUTLET. NO SOB NOTED AT THIS TIME. WILL MONITOR. CONT. PULSE OX CONNECTED. Addendum: 04/01/19 at 2024 by MANOLO MCDONNELL RT Amended: Links added.
[2019-04-01 20:27] VITALS: BP 131/74
[2019-04-01] MEDS: SENNOSIDES 8.6 MG TABLET GT SCH (21:33)
[2019-04-02 00:20] VITALS: BP 124/47
[2019-04-02] MEDS: IPRATROPIUM NEB FS 0.5 MG/2.5 ML AMPUL.NEB NEB SCH ×4 (01:17→20:03)
[2019-04-02] MEDS: METOCLOPRAMIDE HCL 10 MG TABLET GT SCH ×4 (05:20→23:40)
[2019-04-02] MEDS: BIOTENE MOISTURIZING MM SCH ×4 (05:20→23:40)
[2019-04-02] MEDS: BLOOD SUGAR DIAGNOSTIC 1 EACH STRIP IN SCH ×4 (06:07→23:40)
[2019-04-02] MEDS: INSULIN REGULAR, HUMAN 100 UNIT/ML 3 ML VIAL SQ PRN ×4 (06:08→23:42)
[2019-04-02 06:53] VITALS: BP 125/56
[2019-04-02 07:49] VITALS: BP 135/78
[2019-04-02] MEDS: ZINC SULFATE 220 MG CAPSULE GT SCH (09:00)
[2019-04-02] MEDS: ACIDOPHILUS/BULGARICUS 1 EACH TAB.CHEW GT SCH ×2 (09:00→21:31)
[2019-04-02] MEDS: MULTIVIT W/MINERALS 1 TAB TABLET GT SCH (09:00)
[2019-04-02] MEDS: HEPARIN SODIUM, PORCINE 5000 UNITS/1 ML VIAL SQ SCH ×2 (09:00→21:33)
[2019-04-02] MEDS: Z GUARD REMEDY 4 OZ OINT TP SCH ×6 (09:00→21:35)
[2019-04-02] MEDS: PROSOURCE / PROSTAT (PYXIS) 30 ML UDC GT SCH (09:00)
[2019-04-02] MEDS: METOPROLOL TARTRATE 25 MG TABLET GT SCH ×2 (09:00→21:32)
[2019-04-02] MEDS: ASCORBIC ACID 500 MG TABLET GT SCH (09:00)
[2019-04-02] MEDS: COD LIVER OIL/ZINC OXIDE 120 GM TUBE TP SCH ×2 (09:00→21:35)
[2019-04-02] MEDS: DOCUSATE SODIUM LIQ 100 MG/10 ML UDC GT SCH (09:00)
[2019-04-02] MEDS: INSULIN DETEMIR 100 UNIT/ML CARTRIDGE SQ SCH ×2 (09:00→21:34)
[2019-04-02] MEDS: VITAMINS A AND D 56.7 GM TUBE TP SCH ×2 (09:00→21:35)
[2019-04-02 12:00] VITALS: BP 140/53
--- NOTE | 2019-04-02 15:01 | NUR ---
RT NOTE: PATIENT RECEIVED TRACHED ON MECHANICAL VENT. ALARMS VERIFIED AND AUDIBLE. SUCTIONED AND LAVAGED MODERATE-LARGE AMOUNT OF THICK YELLOW SECRETIONS. VENT PLUGGED INTO RED OUTLET. AMBU BAG AND NEW TRACH AT [facility].
[2019-04-02] MEDS: HYDROGEN PEROXIDE 480 ML BOTTLE TP SCH ×2 (15:36→20:03)
[2019-04-02 18:00] VITALS: BP 120/72
--- NOTE | 2019-04-02 19:28 | NUR ---
Seen by Dr Patrick. He ordered follow up labs CBC and BMP.
--- NOTE | 2019-04-02 19:30 | NUR ---
Seen by AVERY Mata no new orders.
[2019-04-02 20:12] VITALS: BP 105/52
--- NOTE | 2019-04-02 21:12 | NUR ---
PT RECEIVE STABLE ON MV, SETTINGS ARE AC 15 450 +5 30% FIO2, TRACH PATENT AND SECURED, VENT PLUG IN TO RED OUTLET, BACK UP TRACH AND AMBU BAG IS BEDSIDE, WILL CONTINUE TO MONITOR Addendum: 04/02/19 at 2113 by RENEE CANO RT Amended: Links added.
[2019-04-02] MEDS: SENNOSIDES 8.6 MG TABLET GT SCH (21:35)
[2019-04-02] MEDS: NEPRO 1,000 ML BOTTLE GT PRN (21:47)
[2019-04-03 00:05] VITALS: BP 118/50
[2019-04-03] MEDS: IPRATROPIUM NEB FS 0.5 MG/2.5 ML AMPUL.NEB NEB SCH ×4 (01:42→19:38)
[2019-04-03] MEDS: BLOOD SUGAR DIAGNOSTIC 1 EACH STRIP IN SCH ×3 (05:58→17:30)
[2019-04-03] MEDS: METOCLOPRAMIDE HCL 10 MG TABLET GT SCH ×3 (05:58→17:30)
[2019-04-03] MEDS: BIOTENE MOISTURIZING MM SCH ×3 (05:58→17:30)
[2019-04-03] MEDS: INSULIN REGULAR, HUMAN 100 UNIT/ML 3 ML VIAL SQ PRN ×3 (06:00→17:32)
[2019-04-03 06:44] VITALS: BP 128/62
[2019-04-03 07:32] LABS: CALCIUM, SERUM 9.9 mg/dL (8.5-10.1); CARBON DIOXIDE 29 mmol/L (21-32); CHLORIDE 94 mmol/L (98-107); CREATININE 2.6 mg/dL (0.6-1.3); GLUCOSE 307 mg/dL (74-106); POTASSIUM 5.4 mmol/L (3.5-5.1); SODIUM SERUM 133 mmol/L (136-145)
[2019-04-03 07:37] LABS: UREA NITROGEN, BLOOD 130 mg/dL (7-18)
[2019-04-03 07:49] VITALS: BP 117/57
[2019-04-03] MEDS: HYDROGEN PEROXIDE 480 ML BOTTLE TP SCH ×2 (08:28→21:00)
[2019-04-03] MEDS: Z GUARD REMEDY 4 OZ OINT TP SCH ×6 (09:00→21:58)
[2019-04-03] MEDS: COD LIVER OIL/ZINC OXIDE 120 GM TUBE TP SCH ×2 (09:00→21:58)
[2019-04-03] MEDS: INSULIN DETEMIR 100 UNIT/ML CARTRIDGE SQ SCH ×2 (09:00→21:58)
[2019-04-03] MEDS: METOPROLOL TARTRATE 25 MG TABLET GT SCH ×2 (09:00→21:58)
[2019-04-03] MEDS: MULTIVIT W/MINERALS 1 TAB TABLET GT SCH (09:00)
[2019-04-03] MEDS: DOCUSATE SODIUM LIQ 100 MG/10 ML UDC GT SCH (09:00)
[2019-04-03] MEDS: ACIDOPHILUS/BULGARICUS 1 EACH TAB.CHEW GT SCH ×2 (09:00→21:58)
[2019-04-03] MEDS: PROSOURCE / PROSTAT (PYXIS) 30 ML UDC GT SCH (09:00)
[2019-04-03] MEDS: VITAMINS A AND D 56.7 GM TUBE TP SCH ×2 (09:00→21:58)
[2019-04-03] MEDS: ZINC SULFATE 220 MG CAPSULE GT SCH (09:00)
[2019-04-03] MEDS: ASCORBIC ACID 500 MG TABLET GT SCH (09:00)
[2019-04-03] MEDS: HEPARIN SODIUM, PORCINE 5000 UNITS/1 ML VIAL SQ SCH ×2 (09:00→21:58)
--- NOTE | 2019-04-03 11:15 | NUR ---
Left a message to Dr. Patrick regarding BMP and CBC result. BUN 130, Creat 2.6, K 5.4, Na 133, Glucose 307. Awaiting for call back.
[2019-04-03 11:22] LABS: BASOPHILS % (AUTO) 0.4 % (0.0-2.0); EOSINOPHILS % (AUTO) 2.7 % (0.0-6.0); HEMATOCRIT 34 % (33-45); HEMOGLOBIN 10.7 g/dL (11.5-14.8); LYMPHOCYTES # (AUTO) 2.4 /CMM (0.8-4.8); LYMPHOCYTES % (AUTO) 20.4 % (20.0-44.0); MEAN CORPUSCULAR HGB CONC 32 g/dl (31.0-36.0); MEAN CORPUSCULAR VOLUME 81 fL (82-100); MONOCYTES # (AUTO) 1.2 /CMM (0.1-1.30); MONOCYTES % (AUTO) 9.9 % (2.0-12.0); NEUTROPHILS # (AUTO) 7.9 /CMM (1.8-8.9); NEUTROPHILS % (AUTO) 66.6 % (43.0-81.0); PLATELET COUNT (AUTO) 236 /CMM (150-450); RED BLOOD CELL COUNT(AUTO) 4.15 MIL/uL (4.0-5.2); WHITE BLOOD COUNT (AUTO) 11.9 K/uL (4.3-11.0)
--- NOTE | 2019-04-03 13:05 | NUR ---
New order received from Dr. Patrick to put patient back on IVF 1/2 NS at 60 cc/hr. with no stop date at the moment. Order carried out.
--- NOTE | 2019-04-03 14:18 | NUR ---
Family Invitation to Holiday Lunch-In: Stand Grinder contacted the patients responsible green party/daughter, Jennifer Araiza to invite them to attend the Family Holiday Lunch-In taking place 04/09/19 from 11:30pm-1:00pm. SW encouraged the family to visit the patient for the holidays. Per Jennifer, they will try to make it. Noted.
--- NOTE | 2019-04-03 14:42 | NUR ---
RT Pt received trach'd and on [facility] vent w charted settings. Vent is plugged into the red outlet. Alarms are set and audible. Bmv at [facility]. Pt is stable. No respiratory distress or sob noted t/o shift. Will continue to monitor. Addendum: 04/03/19 at 1452 by INES MCKEON RT Amended: Links added.
[2019-04-03] MEDS: IV 1/2NS 1000 ML 1,000 ML IV PRN (14:48)
[2019-04-03 15:37] VITALS: BP 124/70
--- NOTE | 2019-04-03 18:40 | NUR ---
Notified resident's daughter Jennifer patient started back on IVF due to elevated BUN. Patient's WBC is slightly high but asymptomatic. Informed daughter that will notify MD when patient becomes symptomatic.
[2019-04-03 18:43] VITALS: BP 130/66
[2019-04-03] MEDS: NYSTATIN/TRIAMCIN OINT 15 GM TUBE TP SCH (21:58)
[2019-04-03 22:14] VITALS: BP 129/67
[2019-04-03] MEDS: SENNOSIDES 8.6 MG TABLET GT SCH (22:45)
--- NOTE | 2019-04-03 23:06 | NUR ---
PT RECEIVE STABLE ON MV, SETTINGS ARE AC 15 450 +5 30% FIO2, ALARMS ARE ON AND AUDIBLE, TRACH PATENT AND SECURED, HARISHE CLARISSE AND FROY BERGER IS AT BEDSIDE, WILL CONTINUE TO MONITOR Addendum: 04/03/19 at 2306 by RENEE CANO RT Amended: Links added.
[2019-04-04] MEDS: METOCLOPRAMIDE HCL 10 MG TABLET GT SCH ×5 (00:01→23:45)
[2019-04-04] MEDS: BIOTENE MOISTURIZING MM SCH ×5 (00:01→23:45)
[2019-04-04] MEDS: BLOOD SUGAR DIAGNOSTIC 1 EACH STRIP IN SCH ×5 (00:01→23:45)
[2019-04-04] MEDS: INSULIN REGULAR, HUMAN 100 UNIT/ML 3 ML VIAL SQ PRN ×5 (00:03→23:48)
[2019-04-04 00:30] VITALS: BP 132/76
[2019-04-04] MEDS: NEPRO 1,000 ML BOTTLE GT PRN (01:44)
[2019-04-04] MEDS: IPRATROPIUM NEB FS 0.5 MG/2.5 ML AMPUL.NEB NEB SCH ×4 (02:14→19:35)
[2019-04-04] MEDS: IV 1/2NS 1000 ML 1,000 ML IV PRN (04:40)
[2019-04-04 06:30] VITALS: BP 140/58
[2019-04-04 07:42] VITALS: BP 120/71
[2019-04-04] MEDS: HYDROGEN PEROXIDE 480 ML BOTTLE TP SCH ×2 (08:04→21:43)
--- NOTE | 2019-04-04 08:20 | NUR ---
Seen and examined by Dr. Dixon, reported that patient's latest BMP shows BUN of 130, Creat 2.6. According to MD he will review the labs. Currently patient on IVF of 1/2 NS @ 60cc/hr.
[2019-04-04] MEDS: MULTIVIT W/MINERALS 1 TAB TABLET GT SCH (09:08)
[2019-04-04] MEDS: PROSOURCE / PROSTAT (PYXIS) 30 ML UDC GT SCH (09:08)
[2019-04-04] MEDS: ASCORBIC ACID 500 MG TABLET GT SCH (09:08)
[2019-04-04] MEDS: METOPROLOL TARTRATE 25 MG TABLET GT SCH ×2 (09:08→21:56)
[2019-04-04] MEDS: ACIDOPHILUS/BULGARICUS 1 EACH TAB.CHEW GT SCH ×2 (09:08→21:55)
[2019-04-04] MEDS: DOCUSATE SODIUM LIQ 100 MG/10 ML UDC GT SCH (09:08)
[2019-04-04] MEDS: ZINC SULFATE 220 MG CAPSULE GT SCH (09:08)
[2019-04-04] MEDS: HEPARIN SODIUM, PORCINE 5000 UNITS/1 ML VIAL SQ SCH ×2 (09:09→21:56)
[2019-04-04] MEDS: NYSTATIN/TRIAMCIN OINT 15 GM TUBE TP SCH ×2 (09:10→21:57)
[2019-04-04] MEDS: Z GUARD REMEDY 4 OZ OINT TP SCH ×4 (09:10→21:57)
[2019-04-04] MEDS: VITAMINS A AND D 56.7 GM TUBE TP SCH ×2 (09:10→21:58)
[2019-04-04] MEDS: INSULIN DETEMIR 100 UNIT/ML CARTRIDGE SQ SCH ×2 (09:10→21:57)
[2019-04-04] MEDS: COD LIVER OIL/ZINC OXIDE 120 GM TUBE TP SCH ×2 (09:10→21:57)
[2019-04-04 12:00] VITALS: BP 138/71
--- NOTE | 2019-04-04 14:00 | NUR ---
Seen and examined by SOLDERING TECHNICIAN Carole Dodd, reviewed labs, with order to repeat CBC on Saturday due to slightly elevated WBC drawn on 04/03/19 = 11.9.
--- NOTE | 2019-04-04 16:12 | NUR ---
RT NOTES TRACH TUBE IN PLACE, PATENT, AND SECURED WITH TRACH TIE. RECEIVED PT ON VENT WITH ORDERED SETTINGS. ALARMS ON AND AUDIBLE. VENT PLUGGED IN TO THE RED OUTLET. BACK UP TRACH, AND AMBU BAG BY THE BEDSIDE. NO SIGNS OF ANY DISTRESS AT THIS TIME. Addendum: 04/04/19 at 1612 by ANDRES MARINO RT Amended: Links added.
[2019-04-04 18:50] VITALS: BP 143/52
[2019-04-04 19:29] VITALS: BP 104/48
[2019-04-04] MEDS: SENNOSIDES 8.6 MG TABLET GT SCH (21:58)
[2019-04-05] VITALS: BP 130/76
[2019-04-05] MEDS: IPRATROPIUM NEB FS 0.5 MG/2.5 ML AMPUL.NEB NEB SCH ×4 (01:50→19:39)
--- NOTE | 2019-04-05 03:39 | NUR ---
RT NOTES: PT RECEIVED TRACHED ON [facility] VENT ON CHARTED SETTINGS. NO SIGNS OF RESP DISTRESS NOTED T/O SHIFT. PT SUCTIONED. EVENT TECHNICIAN DONE. PT RECEIVED ORDERED HHN TXS. ALARMS SET AND AUDIBLE. AMBUBAG AND SPARE TRACH PRESENT. VENT CONNECTED TO RED OUTLET. WILL CONT TO MONITOR. Addendum: 04/05/19 at 0444 by AMANDO RESENDEZ RT Amended: Links added.
[2019-04-05] MEDS: BIOTENE MOISTURIZING MM SCH ×3 (05:09→17:28)
[2019-04-05] MEDS: METOCLOPRAMIDE HCL 10 MG TABLET GT SCH ×3 (05:09→17:28)
[2019-04-05] MEDS: BLOOD SUGAR DIAGNOSTIC 1 EACH STRIP IN SCH ×3 (05:46→17:28)
[2019-04-05] MEDS: INSULIN REGULAR, HUMAN 100 UNIT/ML 3 ML VIAL SQ PRN ×3 (05:48→17:29)
[2019-04-05 06:00] VITALS: BP 122/44
[2019-04-05 07:26] VITALS: BP 135/65
[2019-04-05 07:52] LABS: ALANINE AMINOTRANSFERASE 18 U/L (12-78); ALKALINE PHOSPHATASE 114 U/L (46-116); ASPARTATE AMINOTRANSFERASE 22 U/L (15-37); BILIRUBIN,TOTAL 0.3 mg/dL (0.2-1.0); CALCIUM, SERUM 9.7 mg/dL (8.5-10.1); CARBON DIOXIDE 25 mmol/L (21-32); CHLORIDE 97 mmol/L (98-107); CREATININE 2.4 mg/dL (0.6-1.3); GLUCOSE 249 mg/dL (74-106); MAGNESIUM 3.5 mg/dL (1.8-2.4); PHOSPHORUS 3.6 mg/dL (2.5-4.9); POTASSIUM 5.2 mmol/L (3.5-5.1); SODIUM SERUM 132 mmol/L (136-145); TOTAL PROTEIN, SERUM 8.6 g/dL (6.4-8.2)
[2019-04-05 07:57] LABS: UREA NITROGEN, BLOOD 113 mg/dL (7-18)
[2019-04-05] MEDS: HYDROGEN PEROXIDE 480 ML BOTTLE TP SCH ×2 (08:15→20:10)
[2019-04-05] MEDS: DOCUSATE SODIUM LIQ 100 MG/10 ML UDC GT SCH (09:00)
[2019-04-05] MEDS: INSULIN DETEMIR 100 UNIT/ML CARTRIDGE SQ SCH ×2 (09:00→21:25)
[2019-04-05] MEDS: MULTIVIT W/MINERALS 1 TAB TABLET GT SCH (09:00)
[2019-04-05] MEDS: METOPROLOL TARTRATE 25 MG TABLET GT SCH ×2 (09:00→21:24)
[2019-04-05] MEDS: ACIDOPHILUS/BULGARICUS 1 EACH TAB.CHEW GT SCH ×2 (09:00→21:24)
[2019-04-05] MEDS: NYSTATIN/TRIAMCIN OINT 15 GM TUBE TP SCH ×2 (09:00→21:25)
[2019-04-05] MEDS: COD LIVER OIL/ZINC OXIDE 120 GM TUBE TP SCH ×2 (09:00→21:25)
[2019-04-05] MEDS: ZINC SULFATE 220 MG CAPSULE GT SCH (09:00)
[2019-04-05] MEDS: PROSOURCE / PROSTAT (PYXIS) 30 ML UDC GT SCH (09:00)
[2019-04-05] MEDS: HEPARIN SODIUM, PORCINE 5000 UNITS/1 ML VIAL SQ SCH ×2 (09:00→21:24)
[2019-04-05] MEDS: Z GUARD REMEDY 4 OZ OINT TP SCH ×4 (09:00→21:25)
[2019-04-05] MEDS: ASCORBIC ACID 500 MG TABLET GT SCH (09:00)
[2019-04-05] MEDS: VITAMINS A AND D 56.7 GM TUBE TP SCH ×2 (09:00→21:25)
--- NOTE | 2019-04-05 09:23 | NUR ---
Spoke to Dr. Patrick regarding abnormal lab results BUN 113, patient currently on hydration 0.45% @ 60ml/hr, per Dr. Patrick continue hydration.
[2019-04-05 09:36] LABS: BASOPHILS % (AUTO) 0.4 % (0.0-2.0); EOSINOPHILS % (AUTO) 2.6 % (0.0-6.0); HEMATOCRIT 35 % (33-45); HEMOGLOBIN 10.8 g/dL (11.5-14.8); LYMPHOCYTES # (AUTO) 1.7 /CMM (0.8-4.8); LYMPHOCYTES % (AUTO) 14.9 % (20.0-44.0); MEAN CORPUSCULAR HGB CONC 31 g/dl (31.0-36.0); MEAN CORPUSCULAR VOLUME 82 fL (82-100); MONOCYTES # (AUTO) 0.9 /CMM (0.1-1.30); MONOCYTES % (AUTO) 8.1 % (2.0-12.0); NEUTROPHILS # (AUTO) 8.5 /CMM (1.8-8.9); PLATELET COUNT (AUTO) 272 /CMM (150-450); RED BLOOD CELL COUNT(AUTO) 4.24 MIL/uL (4.0-5.2); WHITE BLOOD COUNT (AUTO) 11.5 K/uL (4.3-11.0)
--- NOTE | 2019-04-05 10:30 | NUR ---
Seen and examined by Dr. Dixon with new orders CMP, magnesium, and phosphorus on 04/06/19 at 0500, order carried out and responsible libertarian made aware.
[2019-04-05 14:28] VITALS: BP 131/60
--- NOTE | 2019-04-05 17:21 | NUR ---
RT NOTE RECEIVED PATIENT ON TRACH WITH VENTILATOR. TRACH IS PATENT AND SECURED.VENT IS PLUGGED TO RED OUTLET, ALARMS ARE SET AND AUDIBLE. SPARE TRACH AND BVM IS AT BEDSIDE. PATIENT IS STABLE AND IN SYNC WITH THE VENT. PATIENT HAS EQUAL CHEST RISE AND HAS COARSE BILATERAL BREATH SOUNDS. SUCTION SMALL AMOUNT OF THICK GREEN/WHITE SECRETIONS TROUGH OUT THE DAY. GAVE BREATHING TREATMENTS WITH NO ADVERSE REACTION. Addendum: 04/05/19 at 1725 by PHYLLIS WALTER RT Amended: Links added.
[2019-04-05 18:13] VITALS: BP 122/73
[2019-04-05 20:43] VITALS: BP 117/52
[2019-04-05] MEDS: SENNOSIDES 8.6 MG TABLET GT SCH (21:25)
[2019-04-05] MEDS: IV 1/2NS 1000 ML 1,000 ML IV PRN (21:57)
[2019-04-06 00:08] VITALS: BP 126/58
[2019-04-06] MEDS: BIOTENE MOISTURIZING MM SCH ×5 (00:10→23:26)
[2019-04-06] MEDS: METOCLOPRAMIDE HCL 10 MG TABLET GT SCH ×5 (00:10→23:26)
[2019-04-06] MEDS: BLOOD SUGAR DIAGNOSTIC 1 EACH STRIP IN SCH ×5 (00:10→23:26)
[2019-04-06] MEDS: INSULIN REGULAR, HUMAN 100 UNIT/ML 3 ML VIAL SQ PRN ×5 (00:11→23:27)
[2019-04-06] MEDS: IPRATROPIUM NEB FS 0.5 MG/2.5 ML AMPUL.NEB NEB SCH ×4 (01:38→20:05)
[2019-04-06 06:07] VITALS: BP 112/59
[2019-04-06 06:25] LABS: BASOPHILS # (AUTO) 0.1 /CMM (0.0-0.2); BASOPHILS % (AUTO) 0.7 % (0.0-2.0); HEMATOCRIT 33 % (33-45); HEMOGLOBIN 10.5 g/dL (11.5-14.8); LYMPHOCYTES # (AUTO) 1.7 /CMM (0.8-4.8); LYMPHOCYTES % (AUTO) 17.5 % (20.0-44.0); MEAN CORPUSCULAR HGB CONC 32 g/dl (31.0-36.0); MEAN CORPUSCULAR VOLUME 82 fL (82-100); MONOCYTES # (AUTO) 0.8 /CMM (0.1-1.30); MONOCYTES % (AUTO) 8.4 % (2.0-12.0); NEUTROPHILS # (AUTO) 6.8 /CMM (1.8-8.9); NEUTROPHILS % (AUTO) 70.4 % (43.0-81.0); PLATELET COUNT (AUTO) 239 /CMM (150-450); RED BLOOD CELL COUNT(AUTO) 4.07 MIL/uL (4.0-5.2); WHITE BLOOD COUNT (AUTO) 9.7 K/uL (4.3-11.0)
[2019-04-06 06:46] LABS: ALANINE AMINOTRANSFERASE 21 U/L (12-78); ALKALINE PHOSPHATASE 112 U/L (46-116); ASPARTATE AMINOTRANSFERASE 12 U/L (15-37); BILIRUBIN,TOTAL 0.2 mg/dL (0.2-1.0); CALCIUM, SERUM 9.7 mg/dL (8.5-10.1); CARBON DIOXIDE 29 mmol/L (21-32); CHLORIDE 99 mmol/L (98-107); CREATININE 2.3 mg/dL (0.6-1.3); GLUCOSE 216 mg/dL (74-106); MAGNESIUM 3.4 mg/dL (1.8-2.4); PHOSPHORUS 3.8 mg/dL (2.5-4.9); POTASSIUM 4.5 mmol/L (3.5-5.1); SODIUM SERUM 136 mmol/L (136-145); TOTAL PROTEIN, SERUM 8.4 g/dL (6.4-8.2)
[2019-04-06 06:51] LABS: UREA NITROGEN, BLOOD 106 mg/dL (7-18)
[2019-04-06 07:44] VITALS: BP 144/73
[2019-04-06] MEDS: HYDROGEN PEROXIDE 480 ML BOTTLE TP SCH ×2 (08:08→21:00)
[2019-04-06] MEDS: HEPARIN SODIUM, PORCINE 5000 UNITS/1 ML VIAL SQ SCH ×2 (09:00→21:24)
[2019-04-06] MEDS: NYSTATIN/TRIAMCIN OINT 15 GM TUBE TP SCH ×2 (09:00→21:25)
[2019-04-06] MEDS: INSULIN DETEMIR 100 UNIT/ML CARTRIDGE SQ SCH ×2 (09:00→21:25)
[2019-04-06] MEDS: ACIDOPHILUS/BULGARICUS 1 EACH TAB.CHEW GT SCH ×2 (09:00→21:23)
[2019-04-06] MEDS: METOPROLOL TARTRATE 25 MG TABLET GT SCH ×2 (09:00→21:23)
[2019-04-06] MEDS: VITAMINS A AND D 56.7 GM TUBE TP SCH ×2 (09:00→21:25)
[2019-04-06] MEDS: COD LIVER OIL/ZINC OXIDE 120 GM TUBE TP SCH ×2 (09:00→21:25)
[2019-04-06] MEDS: PROSOURCE / PROSTAT (PYXIS) 30 ML UDC GT SCH (09:00)
[2019-04-06] MEDS: ASCORBIC ACID 500 MG TABLET GT SCH (09:00)
[2019-04-06] MEDS: Z GUARD REMEDY 4 OZ OINT TP SCH ×4 (09:00→21:25)
[2019-04-06] MEDS: DOCUSATE SODIUM LIQ 100 MG/10 ML UDC GT SCH (09:00)
[2019-04-06] MEDS: ZINC SULFATE 220 MG CAPSULE GT SCH (09:00)
[2019-04-06] MEDS: MULTIVIT W/MINERALS 1 TAB TABLET GT SCH (09:00)
[2019-04-06 09:22] LABS: EOSINOPHILS % (MANUAL) 5 % (0-4); LYMPHOCYTES % (MANUAL) 12 % (16-48); METAMYELOCYTES % 1 % (0-0); MONOCYTES % (MANUAL) 7 % (0-11.0); MYELOCYTES % 1 % (0-0); NEUTROPHILS % (MANUAL) 74 (42-76)
[2019-04-06] MEDS: NEPRO 1,000 ML BOTTLE GT PRN (13:30)
[2019-04-06 14:15] VITALS: BP 118/68
[2019-04-06] MEDS: IV 1/2NS 1000 ML 1,000 ML IV PRN (15:00)
[2019-04-06 18:18] VITALS: BP 128/60
[2019-04-06 20:35] VITALS: BP 131/81
[2019-04-06] MEDS: SENNOSIDES 8.6 MG TABLET GT SCH (21:25)
--- NOTE | 2019-04-06 23:39 | NUR ---
RT NOTE Pt rec'd trached on [facility] vent on AC mode. No resp distress or sob noted. trach is patent and secured. Sx'd for thick mod amt of pale yellow secretions. Alarms are set and audible. Vent plugged into red outlet. Ambu bag bedside. Will continue to monitor closely. Addendum: 04/06/19 at 2339 by TALA YAO RT Amended: Links added.
[2019-04-07] MEDS: IV 1/2NS 1000 ML 1,000 ML IV PRN (00:34)
[2019-04-07 00:48] VITALS: BP 130/70
[2019-04-07] MEDS: IPRATROPIUM NEB FS 0.5 MG/2.5 ML AMPUL.NEB NEB SCH ×4 (01:19→19:55)
--- NOTE | 2019-04-07 07:40 | NUR ---
RT PT RECEIVED ON CURRENT VENT SETTINGS. TRACHED WITH SHILEY 8. VENT PLUGGED IN TO RED OUTLET. AMBU BAG AT HEAD OF BED. SPARE TRACH AT BEDSIDE. ALARMS ON AND AUDIBLE. NO RESPIRATORY DISTRESS. HEAD OF BED AT 30 DEGREES. WILL CONTINUE TO MONITOR. Addendum: 04/07/19 at 1627 by ALECIA CRUZ RT Amended: Links added.
[2019-04-07] MEDS: INSULIN DETEMIR 100 UNIT/ML CARTRIDGE SQ SCH ×2 (09:00→21:13)
[2019-04-07] MEDS: HYDROGEN PEROXIDE 480 ML BOTTLE TP SCH ×2 (09:07→21:00)
--- NOTE | 2019-04-07 09:39 | NUR ---
Seen by Dr Patrick. Pt still on IV hydration. Dr Patrick ordered to do BMP.
[2019-04-07] MEDS: METOPROLOL TARTRATE 25 MG TABLET GT SCH ×2 (09:51→21:12)
[2019-04-07] MEDS: ZINC SULFATE 220 MG CAPSULE GT SCH (09:52)
[2019-04-07] MEDS: DOCUSATE SODIUM LIQ 100 MG/10 ML UDC GT SCH (09:52)
[2019-04-07] MEDS: ASCORBIC ACID 500 MG TABLET GT SCH (09:52)
[2019-04-07] MEDS: MULTIVIT W/MINERALS 1 TAB TABLET GT SCH (09:52)
[2019-04-07] MEDS: ACIDOPHILUS/BULGARICUS 1 EACH TAB.CHEW GT SCH ×2 (09:52→21:11)
[2019-04-07] MEDS: HEPARIN SODIUM, PORCINE 5000 UNITS/1 ML VIAL SQ SCH ×2 (09:52→21:12)
[2019-04-07] MEDS: PROSOURCE / PROSTAT (PYXIS) 30 ML UDC GT SCH (09:52)
[2019-04-07] MEDS: VITAMINS A AND D 56.7 GM TUBE TP SCH ×2 (09:53→21:14)
[2019-04-07] MEDS: Z GUARD REMEDY 4 OZ OINT TP SCH ×4 (09:53→21:13)
[2019-04-07] MEDS: COD LIVER OIL/ZINC OXIDE 120 GM TUBE TP SCH ×2 (09:53→21:13)
[2019-04-07] MEDS: NYSTATIN/TRIAMCIN OINT 15 GM TUBE TP SCH ×2 (09:53→21:13)
[2019-04-07 11:06] LABS: CALCIUM, SERUM 7.9 mg/dL (8.5-10.1); CARBON DIOXIDE 24 mmol/L (21-32); CHLORIDE 93 mmol/L (98-107); CREATININE 1.7 mg/dL (0.6-1.3); GLUCOSE 240 mg/dL (74-106); POTASSIUM 3.3 mmol/L (3.5-5.1); SODIUM SERUM 126 mmol/L (136-145); UREA NITROGEN, BLOOD 78 mg/dL (7-18)
[2019-04-07 11:38] VITALS: BP 157/75
[2019-04-07 12:00] VITALS: BP 129/69
[2019-04-07] MEDS: BLOOD SUGAR DIAGNOSTIC 1 EACH STRIP IN SCH ×2 (12:00→17:18)
[2019-04-07] MEDS: BIOTENE MOISTURIZING MM SCH ×2 (12:00→17:15)
[2019-04-07] MEDS: METOCLOPRAMIDE HCL 10 MG TABLET GT SCH ×2 (12:00→17:15)
--- NOTE | 2019-04-07 12:10 | NUR ---
Relayed BMP result to Dr Patrick. Received order to change IV fluid from 1/2 NS to NS at 60 mL/hr, give Potassium Chloride 40 mEq GT x 1, BMP in AM. Notified daughter.
[2019-04-07] MEDS: IV NS 0.9% 1,000 ML IV PRN (12:30)
[2019-04-07] MEDS ORDERED: POTASSIUM CHLORIDE 20 MEQ POWDER PACKET GT ONE (12:30)
[2019-04-07] MEDS: INSULIN REGULAR, HUMAN 100 UNIT/ML 3 ML VIAL SQ PRN ×2 (13:05→17:19)
[2019-04-07] MEDS: NEPRO 1,000 ML BOTTLE GT PRN (16:33)
[2019-04-07 18:00] VITALS: BP 140/73
[2019-04-07 20:47] VITALS: BP 119/79
[2019-04-07] MEDS: SENNOSIDES 8.6 MG TABLET GT SCH (21:14)
[2019-04-08 00:12] VITALS: BP 132/64
[2019-04-08] MEDS: METOCLOPRAMIDE HCL 10 MG TABLET GT SCH ×5 (00:13→23:05)
[2019-04-08] MEDS: BIOTENE MOISTURIZING MM SCH ×5 (00:13→23:05)
[2019-04-08] MEDS: BLOOD SUGAR DIAGNOSTIC 1 EACH STRIP IN SCH ×5 (00:13→23:05)
[2019-04-08] MEDS: INSULIN REGULAR, HUMAN 100 UNIT/ML 3 ML VIAL SQ PRN ×5 (00:14→23:09)
[2019-04-08] MEDS: IPRATROPIUM NEB FS 0.5 MG/2.5 ML AMPUL.NEB NEB SCH ×3 (01:25→19:34)
[2019-04-08 06:08] VITALS: BP 134/68
[2019-04-08 07:21] LABS: CALCIUM, SERUM 9.6 mg/dL (8.5-10.1); CARBON DIOXIDE 24 mmol/L (21-32); CHLORIDE 103 mmol/L (98-107); CREATININE 1.9 mg/dL (0.6-1.3); GLUCOSE 307 mg/dL (74-106); POTASSIUM 5.6 mmol/L (3.5-5.1); SODIUM SERUM 137 mmol/L (136-145)
[2019-04-08 07:30] LABS: UREA NITROGEN, BLOOD 82 mg/dL (7-18)
[2019-04-08] MEDS: HYDROGEN PEROXIDE 480 ML BOTTLE TP SCH ×2 (08:08→21:00)
[2019-04-08 08:26] VITALS: BP 138/92
[2019-04-08] MEDS: Z GUARD REMEDY 4 OZ OINT TP SCH ×4 (09:00→20:40)
[2019-04-08] MEDS: VITAMINS A AND D 56.7 GM TUBE TP SCH ×2 (09:00→20:40)
[2019-04-08] MEDS: COD LIVER OIL/ZINC OXIDE 120 GM TUBE TP SCH ×2 (09:00→20:40)
[2019-04-08] MEDS: NYSTATIN/TRIAMCIN OINT 15 GM TUBE TP SCH ×2 (09:00→20:40)
[2019-04-08] MEDS: ZINC SULFATE 220 MG CAPSULE GT SCH (09:51)
[2019-04-08] MEDS: ASCORBIC ACID 500 MG TABLET GT SCH (09:51)
[2019-04-08] MEDS: DOCUSATE SODIUM LIQ 100 MG/10 ML UDC GT SCH (09:51)
[2019-04-08] MEDS: METOPROLOL TARTRATE 25 MG TABLET GT SCH ×2 (09:51→20:38)
[2019-04-08] MEDS: PROSOURCE / PROSTAT (PYXIS) 30 ML UDC GT SCH (09:51)
[2019-04-08] MEDS: MULTIVIT W/MINERALS 1 TAB TABLET GT SCH (09:51)
[2019-04-08] MEDS: ACIDOPHILUS/BULGARICUS 1 EACH TAB.CHEW GT SCH ×2 (09:51→20:38)
[2019-04-08] MEDS: HEPARIN SODIUM, PORCINE 5000 UNITS/1 ML VIAL SQ SCH ×2 (09:53→20:39)
[2019-04-08] MEDS: INSULIN DETEMIR 100 UNIT/ML CARTRIDGE SQ SCH ×2 (10:04→20:39)
[2019-04-08] MEDS: IV NS 0.9% 1,000 ML IV PRN (10:10)
[2019-04-08 12:30] VITALS: BP 110/60
[2019-04-08] MEDS: NEPRO 1,000 ML BOTTLE GT PRN (17:36)
[2019-04-08 18:38] VITALS: BP 103/50
[2019-04-08 20:13] VITALS: BP 131/67
[2019-04-08] MEDS: SENNOSIDES 8.6 MG TABLET GT SCH (21:12)
[2019-04-09 00:21] VITALS: BP 130/70
[2019-04-09] MEDS: IPRATROPIUM NEB FS 0.5 MG/2.5 ML AMPUL.NEB NEB SCH ×4 (00:51→19:48)
[2019-04-09] MEDS: IV NS 0.9% 1,000 ML IV PRN ×2 (03:14→20:20)
[2019-04-09] MEDS: BIOTENE MOISTURIZING MM SCH ×3 (05:24→17:33)
[2019-04-09] MEDS: METOCLOPRAMIDE HCL 10 MG TABLET GT SCH ×3 (05:24→17:33)
[2019-04-09] MEDS: BLOOD SUGAR DIAGNOSTIC 1 EACH STRIP IN SCH ×3 (05:24→17:33)
[2019-04-09] MEDS: INSULIN REGULAR, HUMAN 100 UNIT/ML 3 ML VIAL SQ PRN ×3 (05:25→17:34)
[2019-04-09 06:26] VITALS: BP 148/79
[2019-04-09 07:36] VITALS: BP 154/68
[2019-04-09] MEDS: HYDROGEN PEROXIDE 480 ML BOTTLE TP SCH ×2 (09:00→21:10)
[2019-04-09] MEDS: DOCUSATE SODIUM LIQ 100 MG/10 ML UDC GT SCH (09:44)
[2019-04-09] MEDS: ACIDOPHILUS/BULGARICUS 1 EACH TAB.CHEW GT SCH ×2 (09:44→21:00)
[2019-04-09] MEDS: ASCORBIC ACID 500 MG TABLET GT SCH (09:45)
[2019-04-09] MEDS: PROSOURCE / PROSTAT (PYXIS) 30 ML UDC GT SCH (09:45)
[2019-04-09] MEDS: METOPROLOL TARTRATE 25 MG TABLET GT SCH ×2 (09:45→21:00)
[2019-04-09] MEDS: MULTIVIT W/MINERALS 1 TAB TABLET GT SCH (09:45)
[2019-04-09] MEDS: ZINC SULFATE 220 MG CAPSULE GT SCH (09:45)
[2019-04-09] MEDS: HEPARIN SODIUM, PORCINE 5000 UNITS/1 ML VIAL SQ SCH ×2 (09:46→21:00)
[2019-04-09] MEDS: Z GUARD REMEDY 4 OZ OINT TP SCH ×4 (09:48→21:00)
[2019-04-09] MEDS: VITAMINS A AND D 56.7 GM TUBE TP SCH ×2 (09:48→21:00)
[2019-04-09] MEDS: COD LIVER OIL/ZINC OXIDE 120 GM TUBE TP SCH ×2 (09:48→21:00)
[2019-04-09] MEDS: INSULIN DETEMIR 100 UNIT/ML CARTRIDGE SQ SCH ×2 (09:48→21:00)
[2019-04-09] MEDS: NYSTATIN/TRIAMCIN OINT 15 GM TUBE TP SCH ×2 (09:48→21:00)
--- NOTE | 2019-04-09 10:10 | NUR ---
RT PT RECEIVED ON CURRENT VENT SETTINGS. TRACHED WITH SHILEY 8. VENT PLUGGED IN TO RED OUTLET. AMBU BAG AT HEAD OF BED. SPARE TRACH AT BEDSIDE. ALARMS ON AND AUDIBLE. NO RESPIRATORY DISTRESS. HEAD OF BED AT 30 DEGREES. WILL CONTINUE TO MONITOR.
[2019-04-09 12:00] VITALS: BP 152/66
[2019-04-09 18:00] VITALS: BP 147/61
[2019-04-09 20:10] VITALS: BP 147/69
[2019-04-09] MEDS: SENNOSIDES 8.6 MG TABLET GT SCH (22:30)
[2019-04-10] VITALS: BP 135/50
[2019-04-10] MEDS: METOCLOPRAMIDE HCL 10 MG TABLET GT SCH ×4 (00:17→17:53)
[2019-04-10] MEDS: BLOOD SUGAR DIAGNOSTIC 1 EACH STRIP IN SCH ×4 (00:17→17:53)
[2019-04-10] MEDS: BIOTENE MOISTURIZING MM SCH ×4 (00:17→18:30)
[2019-04-10] MEDS: INSULIN REGULAR, HUMAN 100 UNIT/ML 3 ML VIAL SQ PRN ×4 (00:18→17:54)
[2019-04-10] MEDS: NEPRO 1,000 ML BOTTLE GT PRN (00:28)
[2019-04-10] MEDS: IPRATROPIUM NEB FS 0.5 MG/2.5 ML AMPUL.NEB NEB SCH ×4 (02:01→19:58)
[2019-04-10 06:00] VITALS: BP 119/55
[2019-04-10 06:32] LABS: BASOPHILS % (AUTO) 0.5 % (0.0-2.0); EOSINOPHILS % (AUTO) 2.2 % (0.0-6.0); HEMATOCRIT 32 % (33-45); HEMOGLOBIN 10.1 g/dL (11.5-14.8); LYMPHOCYTES # (AUTO) 1.8 /CMM (0.8-4.8); LYMPHOCYTES % (AUTO) 18.4 % (20.0-44.0); MEAN CORPUSCULAR HGB CONC 32 g/dl (31.0-36.0); MEAN CORPUSCULAR VOLUME 83 fL (82-100); MONOCYTES # (AUTO) 0.7 /CMM (0.1-1.30); MONOCYTES % (AUTO) 7.9 % (2.0-12.0); NEUTROPHILS # (AUTO) 6.7 /CMM (1.8-8.9); PLATELET COUNT (AUTO) 215 /CMM (150-450); RED BLOOD CELL COUNT(AUTO) 3.82 MIL/uL (4.0-5.2); WHITE BLOOD COUNT (AUTO) 9.5 K/uL (4.3-11.0)
[2019-04-10 06:52] LABS: CALCIUM, SERUM 9.3 mg/dL (8.5-10.1); CARBON DIOXIDE 24 mmol/L (21-32); CHLORIDE 105 mmol/L (98-107); CREATININE 1.8 mg/dL (0.6-1.3); GLUCOSE 281 mg/dL (74-106); MAGNESIUM 2.8 mg/dL (1.8-2.4); PHOSPHORUS 2.9 mg/dL (2.5-4.9); POTASSIUM 5.4 mmol/L (3.5-5.1); SODIUM SERUM 139 mmol/L (136-145); UREA NITROGEN, BLOOD 72 mg/dL (7-18)
[2019-04-10 07:35] VITALS: BP 100/61
[2019-04-10] MEDS: ASCORBIC ACID 500 MG TABLET GT SCH (08:51)
[2019-04-10] MEDS: ZINC SULFATE 220 MG CAPSULE GT SCH (08:51)
[2019-04-10] MEDS: ACIDOPHILUS/BULGARICUS 1 EACH TAB.CHEW GT SCH ×2 (08:51→20:53)
[2019-04-10] MEDS: MULTIVIT W/MINERALS 1 TAB TABLET GT SCH (08:51)
[2019-04-10] MEDS: PROSOURCE / PROSTAT (PYXIS) 30 ML UDC GT SCH (08:51)
[2019-04-10] MEDS: DOCUSATE SODIUM LIQ 100 MG/10 ML UDC GT SCH (08:51)
[2019-04-10] MEDS: HEPARIN SODIUM, PORCINE 5000 UNITS/1 ML VIAL SQ SCH ×2 (08:52→20:55)
[2019-04-10] MEDS: VITAMINS A AND D 56.7 GM TUBE TP SCH ×2 (09:00→20:56)
[2019-04-10] MEDS: NYSTATIN/TRIAMCIN OINT 15 GM TUBE TP SCH ×2 (09:00→20:56)
[2019-04-10] MEDS: Z GUARD REMEDY 4 OZ OINT TP SCH ×4 (09:00→20:56)
[2019-04-10] MEDS: HYDROGEN PEROXIDE 480 ML BOTTLE TP SCH ×2 (09:00→21:52)
[2019-04-10] MEDS: COD LIVER OIL/ZINC OXIDE 120 GM TUBE TP SCH ×2 (09:00→20:56)
[2019-04-10] MEDS: METOPROLOL TARTRATE 25 MG TABLET GT SCH ×2 (09:17→20:54)
[2019-04-10] MEDS: INSULIN DETEMIR 100 UNIT/ML CARTRIDGE SQ SCH ×2 (09:17→20:56)
[2019-04-10 12:00] VITALS: BP 140/60
[2019-04-10] MEDS: IV NS 0.9% 1,000 ML IV PRN (15:15)
[2019-04-10 18:00] VITALS: BP 138/55
--- NOTE | 2019-04-10 21:57 | NUR ---
PT RECEIVE STABLE ON MV, SETTINGS ARE AC 15 450 +5 30% FIO2, TRACH PATENT AND SECURED, SPARE TRACH AND AMBU BAG IS AT BEDSIDE, ALARMS ARE ON AND AUDIBLE, VENT IS PLUG IN RED OUTLET, WILL CONTINUE TO MONITOR Addendum: 04/10/19 at 2158 by RENEE CANO RT Amended: Links added.
[2019-04-10] MEDS: SENNOSIDES 8.6 MG TABLET GT SCH (22:37)
[2019-04-11] VITALS (7 sets, daily range): BP systolic 106–142; BP diastolic 49–69
[2019-04-11] MEDS: BLOOD SUGAR DIAGNOSTIC 1 EACH STRIP IN SCH ×4 (00:39→17:15)
[2019-04-11] MEDS: METOCLOPRAMIDE HCL 10 MG TABLET GT SCH ×4 (00:39→17:15)
[2019-04-11] MEDS: BIOTENE MOISTURIZING MM SCH ×4 (00:39→17:15)
[2019-04-11] MEDS: INSULIN REGULAR, HUMAN 100 UNIT/ML 3 ML VIAL SQ PRN ×4 (00:41→17:17)
[2019-04-11] MEDS: IPRATROPIUM NEB FS 0.5 MG/2.5 ML AMPUL.NEB NEB SCH ×4 (01:16→19:54)
[2019-04-11] MEDS: NEPRO 1,000 ML BOTTLE GT PRN (05:38)
[2019-04-11] MEDS: IV NS 0.9% 1,000 ML IV PRN (08:07)
[2019-04-11] MEDS: MULTIVIT W/MINERALS 1 TAB TABLET GT SCH (09:00)
[2019-04-11] MEDS: PROSOURCE / PROSTAT (PYXIS) 30 ML UDC GT SCH (09:00)
[2019-04-11] MEDS: ASCORBIC ACID 500 MG TABLET GT SCH (09:00)
[2019-04-11] MEDS: METOPROLOL TARTRATE 25 MG TABLET GT SCH ×2 (09:00→21:13)
[2019-04-11] MEDS: ZINC SULFATE 220 MG CAPSULE GT SCH (09:00)
[2019-04-11] MEDS: NYSTATIN/TRIAMCIN OINT 15 GM TUBE TP SCH ×2 (09:00→21:14)
[2019-04-11] MEDS: COD LIVER OIL/ZINC OXIDE 120 GM TUBE TP SCH ×2 (09:00→21:14)
[2019-04-11] MEDS: HEPARIN SODIUM, PORCINE 5000 UNITS/1 ML VIAL SQ SCH ×2 (09:00→21:13)
[2019-04-11] MEDS: VITAMINS A AND D 56.7 GM TUBE TP SCH ×2 (09:00→21:14)
[2019-04-11] MEDS: HYDROGEN PEROXIDE 480 ML BOTTLE TP SCH ×2 (09:00→20:50)
[2019-04-11] MEDS: Z GUARD REMEDY 4 OZ OINT TP SCH ×4 (09:00→21:14)
[2019-04-11] MEDS: ACIDOPHILUS/BULGARICUS 1 EACH TAB.CHEW GT SCH ×2 (09:00→21:12)
[2019-04-11] MEDS: DOCUSATE SODIUM LIQ 100 MG/10 ML UDC GT SCH (09:00)
[2019-04-11] MEDS: INSULIN DETEMIR 100 UNIT/ML CARTRIDGE SQ SCH ×2 (10:00→21:40)
--- NOTE | 2019-04-11 20:55 | NUR ---
PT RECEIVE STABLE ON MV, SETTINGS ARE AC 15 450 +5 30% FIO2, TRACH PATENT AND SECURED, SPARE TRACH AND AMBU BAG IS AT BEDSIDE, ALARMS ARE ON AND AUDIBLE, VENT IS PLUG IN RED OUTLET, WILL CONTINUE TO MONITOR Addendum: 04/11/19 at 2055 by RENEE CANO RT Amended: Links added.
[2019-04-11] MEDS: SENNOSIDES 8.6 MG TABLET GT SCH (21:14)
[2019-04-12] MEDS: BLOOD SUGAR DIAGNOSTIC 1 EACH STRIP IN SCH ×4 (00:03→18:16)
[2019-04-12] MEDS: BIOTENE MOISTURIZING MM SCH ×4 (00:03→18:16)
[2019-04-12] MEDS: METOCLOPRAMIDE HCL 10 MG TABLET GT SCH ×4 (00:03→18:16)
[2019-04-12 00:05] VITALS: BP 114/66
[2019-04-12] MEDS: INSULIN REGULAR, HUMAN 100 UNIT/ML 3 ML VIAL SQ PRN ×4 (00:05→18:17)
[2019-04-12] MEDS: IPRATROPIUM NEB FS 0.5 MG/2.5 ML AMPUL.NEB NEB SCH ×4 (01:58→20:23)
[2019-04-12 06:17] VITALS: BP 129/58
[2019-04-12] MEDS: IV NS 0.9% 1,000 ML IV PRN (07:01)
[2019-04-12 07:44] VITALS: BP 143/58
[2019-04-12 07:44] LABS: CALCIUM, SERUM 9.1 mg/dL (8.5-10.1); CARBON DIOXIDE 24 mmol/L (21-32); CHLORIDE 104 mmol/L (98-107); CREATININE 1.8 mg/dL (0.6-1.3); GLUCOSE 250 mg/dL (74-106); POTASSIUM 5.1 mmol/L (3.5-5.1); SODIUM SERUM 138 mmol/L (136-145); UREA NITROGEN, BLOOD 64 mg/dL (7-18)
--- NOTE | 2019-04-12 08:07 | NUR ---
RT PT RECEIVED TRACH'D ON [facility] VENT WITH SETTINGS PER MD ORDER. PRIVATE HOUSEHOLD WORKER DONE. VENT PLUGGED INTO RED OUTLET. SPARE TRACH AND AMBU BAG AT HEAD OF BED. ALARMS ON AND FUNCTIONING PROPERLY. BREATHING TX'S GIVEN ORDERED. NO ADVERSE REACTIONS OBSERVED. SUCTIONED AND MONITORED PRN. NO SOB OR SIGNS OF DISTRESS NOTED. TRACH CARE DONE. Addendum: 04/12/19 at 1747 by WILBERT MILLIGAN RT Amended: Links added.
[2019-04-12] MEDS: HYDROGEN PEROXIDE 480 ML BOTTLE TP SCH ×2 (08:37→21:59)
[2019-04-12] MEDS: COD LIVER OIL/ZINC OXIDE 120 GM TUBE TP SCH ×2 (09:00→20:55)
[2019-04-12] MEDS: Z GUARD REMEDY 4 OZ OINT TP SCH ×4 (09:00→20:55)
[2019-04-12] MEDS: NYSTATIN/TRIAMCIN OINT 15 GM TUBE TP SCH ×2 (09:00→20:55)
[2019-04-12] MEDS: VITAMINS A AND D 56.7 GM TUBE TP SCH ×2 (09:00→20:55)
[2019-04-12] MEDS ORDERED: INSULIN DETEMIR 100 UNIT/ML CARTRIDGE SQ SCH (09:00)
[2019-04-12] MEDS: DOCUSATE SODIUM LIQ 100 MG/10 ML UDC GT SCH (09:29)
[2019-04-12] MEDS: ACIDOPHILUS/BULGARICUS 1 EACH TAB.CHEW GT SCH ×2 (09:29→20:52)
[2019-04-12] MEDS: ASCORBIC ACID 500 MG TABLET GT SCH (09:30)
[2019-04-12] MEDS: METOPROLOL TARTRATE 25 MG TABLET GT SCH ×2 (09:30→20:52)
[2019-04-12] MEDS: ZINC SULFATE 220 MG CAPSULE GT SCH (09:30)
[2019-04-12] MEDS: PROSOURCE / PROSTAT (PYXIS) 30 ML UDC GT SCH (09:30)
[2019-04-12] MEDS: MULTIVIT W/MINERALS 1 TAB TABLET GT SCH (09:30)
[2019-04-12] MEDS: HEPARIN SODIUM, PORCINE 5000 UNITS/1 ML VIAL SQ SCH ×2 (09:31→20:53)
[2019-04-12] MEDS: INSULIN DETEMIR 100 UNIT/ML CARTRIDGE SQ SCH ×2 (09:40→21:34)
[2019-04-12] MEDS: NEPRO 1,000 ML BOTTLE GT PRN (09:50)
[2019-04-12 12:00] VITALS: BP 135/78
[2019-04-12 18:00] VITALS: BP 152/78
[2019-04-12 20:12] VITALS: BP 136/61
[2019-04-12] MEDS: SENNOSIDES 8.6 MG TABLET GT SCH (21:47)
--- NOTE | 2019-04-12 22:13 | NUR ---
PT RECEIVE STABLE ON MV, SETTINGS ARE AC 15 450 +5 30% FIO2, TRACH PATENT AND SECURED, SPARE TRACH AND AMBU BAG IS AT BEDSIDE, ALARMS ARE ON AND AUDIBLE, VENT IS PLUG IN RED OUTLET, WILL CONTINUE TO MONITOR Addendum: 04/12/19 at 2213 by RENEE CANO RT Amended: Links added.
[2019-04-13] VITALS (7 sets, daily range): BP systolic 127–159; BP diastolic 51–85
[2019-04-13] MEDS: METOCLOPRAMIDE HCL 10 MG TABLET GT SCH ×4 (00:35→18:19)
[2019-04-13] MEDS: BLOOD SUGAR DIAGNOSTIC 1 EACH STRIP IN SCH ×4 (00:35→18:19)
[2019-04-13] MEDS: BIOTENE MOISTURIZING MM SCH ×4 (00:36→18:20)
[2019-04-13] MEDS: INSULIN REGULAR, HUMAN 100 UNIT/ML 3 ML VIAL SQ PRN ×4 (00:37→18:20)
[2019-04-13] MEDS: IPRATROPIUM NEB FS 0.5 MG/2.5 ML AMPUL.NEB NEB SCH ×4 (01:41→19:31)
[2019-04-13] MEDS: IV NS 0.9% 1,000 ML IV PRN (02:00)
[2019-04-13 06:30] LABS: CARBON DIOXIDE 25 mmol/L (21-32); CHLORIDE 105 mmol/L (98-107); CREATININE 1.8 mg/dL (0.6-1.3); GLUCOSE 228 mg/dL (74-106); POTASSIUM 4.6 mmol/L (3.5-5.1); SODIUM SERUM 139 mmol/L (136-145)
[2019-04-13 06:46] LABS: UREA NITROGEN, BLOOD 65 mg/dL (7-18)
[2019-04-13] MEDS: HYDROGEN PEROXIDE 480 ML BOTTLE TP SCH ×2 (08:25→19:31)
[2019-04-13] MEDS: COD LIVER OIL/ZINC OXIDE 120 GM TUBE TP SCH ×2 (09:00→20:28)
[2019-04-13] MEDS: NYSTATIN/TRIAMCIN OINT 15 GM TUBE TP SCH ×2 (09:00→20:28)
[2019-04-13] MEDS: VITAMINS A AND D 56.7 GM TUBE TP SCH ×2 (09:00→20:29)
[2019-04-13] MEDS: Z GUARD REMEDY 4 OZ OINT TP SCH ×4 (09:00→20:28)
[2019-04-13] MEDS: DOCUSATE SODIUM LIQ 100 MG/10 ML UDC GT SCH (09:50)
[2019-04-13] MEDS: PROSOURCE / PROSTAT (PYXIS) 30 ML UDC GT SCH (09:50)
[2019-04-13] MEDS: METOPROLOL TARTRATE 25 MG TABLET GT SCH ×2 (09:50→20:27)
[2019-04-13] MEDS: ZINC SULFATE 220 MG CAPSULE GT SCH (09:50)
[2019-04-13] MEDS: ASCORBIC ACID 500 MG TABLET GT SCH (09:50)
[2019-04-13] MEDS: ACIDOPHILUS/BULGARICUS 1 EACH TAB.CHEW GT SCH ×2 (09:50→20:26)
[2019-04-13] MEDS: HEPARIN SODIUM, PORCINE 5000 UNITS/1 ML VIAL SQ SCH ×2 (09:50→20:28)
[2019-04-13] MEDS: MULTIVIT W/MINERALS 1 TAB TABLET GT SCH (09:50)
[2019-04-13] MEDS: INSULIN DETEMIR 100 UNIT/ML CARTRIDGE SQ SCH ×2 (09:50→20:39)
--- NOTE | 2019-04-13 19:31 | NUR ---
RT NOTE: RECEIVED TRACH PT ON [facility] VENT ON NOTED SETTINGS PER MD ORDERS. TRACH IS PATENT AND SECURED. TRACH CARE DONE. MANAGER OF COMPLIANCE DONE. Q6 BREATHING TX GIVEN WITH NO ADVERSE REACTION NOTED. SX DONE PRN. VENT PLUGGED INTO RED OUTLET. ALARMS ON AND AUDIBLE. RODERICKU BAG @ BEDSIDE. NO RESP DISTRESS AT THIS TIME. WILL CONT TO MONITOR PT. Addendum: 04/13/19 at 2006 by PREMA SOTO RT Amended: Links added.
[2019-04-13] MEDS: SENNOSIDES 8.6 MG TABLET GT SCH (22:15)
[2019-04-14 00:20] VITALS: BP 138/65
[2019-04-14] MEDS: METOCLOPRAMIDE HCL 10 MG TABLET GT SCH ×5 (00:42→23:56)
[2019-04-14] MEDS: BLOOD SUGAR DIAGNOSTIC 1 EACH STRIP IN SCH ×5 (00:42→23:56)
[2019-04-14] MEDS: BIOTENE MOISTURIZING MM SCH ×5 (00:42→23:56)
[2019-04-14] MEDS: INSULIN REGULAR, HUMAN 100 UNIT/ML 3 ML VIAL SQ PRN ×5 (00:45→23:58)
[2019-04-14] MEDS: IPRATROPIUM NEB FS 0.5 MG/2.5 ML AMPUL.NEB NEB SCH ×4 (01:58→19:34)
[2019-04-14] MEDS: IV NS 0.9% 1,000 ML IV PRN (03:00)
[2019-04-14 06:51] VITALS: BP 135/74
[2019-04-14 07:33] VITALS: BP 170/80
[2019-04-14] MEDS: HYDROGEN PEROXIDE 480 ML BOTTLE TP SCH ×2 (07:50→21:00)
[2019-04-14] MEDS: DOCUSATE SODIUM LIQ 100 MG/10 ML UDC GT SCH (08:43)
[2019-04-14] MEDS: MULTIVIT W/MINERALS 1 TAB TABLET GT SCH (08:44)
[2019-04-14] MEDS: PROSOURCE / PROSTAT (PYXIS) 30 ML UDC GT SCH (08:44)
[2019-04-14] MEDS: ASCORBIC ACID 500 MG TABLET GT SCH (08:44)
[2019-04-14] MEDS: ZINC SULFATE 220 MG CAPSULE GT SCH (08:44)
[2019-04-14] MEDS: ACIDOPHILUS/BULGARICUS 1 EACH TAB.CHEW GT SCH ×2 (08:44→20:59)
[2019-04-14] MEDS: METOPROLOL TARTRATE 25 MG TABLET GT SCH ×2 (08:44→20:59)
[2019-04-14] MEDS: HEPARIN SODIUM, PORCINE 5000 UNITS/1 ML VIAL SQ SCH ×2 (08:50→21:00)
[2019-04-14] MEDS: COD LIVER OIL/ZINC OXIDE 120 GM TUBE TP SCH ×2 (08:51→21:00)
[2019-04-14] MEDS: Z GUARD REMEDY 4 OZ OINT TP SCH ×4 (08:51→21:00)
[2019-04-14] MEDS: VITAMINS A AND D 56.7 GM TUBE TP SCH ×2 (08:52→21:00)
[2019-04-14] MEDS: INSULIN DETEMIR 100 UNIT/ML CARTRIDGE SQ SCH ×2 (08:53→21:58)
[2019-04-14] MEDS: NYSTATIN/TRIAMCIN OINT 15 GM TUBE TP SCH ×2 (09:00→21:00)
--- NOTE | 2019-04-14 10:03 | NUR ---
Seen and examined by Dr. Agarwal, resident still on IVF, reviewed recent labs no new order given at this time.
--- NOTE | 2019-04-14 11:06 | NUR ---
RT RECEIVED PATIENT TRACH'D ON [facility] VENT WITH SETTINGS PER MD ORDER. HERBOLOGIST DONE. VENT PLUGGED INTO RED OUTLET. SPARE TRACH AND AMBU BAG AT HEAD OF BED. ALARMS ON AND FUNCTIONING PROPERLY. TX'S GIVEN ORDERED. NO ADVERSE REACTIONS OBSERVED. SUCTIONED AND MONITORED PRN. NO SIGNS OF DISTRESS NOTED. TRACH CARE DONE. Addendum: 04/14/19 at 1245 by WILBERT MILLIGAN RT Amended: Links added.
[2019-04-14 12:00] VITALS: BP 146/62
[2019-04-14 18:00] VITALS: BP 132/76
--- NOTE | 2019-04-14 19:34 | NUR ---
RT PT RECEIVED ON CURRENT SETTINGS. TRACHED WITH SHILEY 8. VENT PLUGGED IN TO RED OUTLET. ALARMS ON AND AUDIBLE. SPARE TRACH AT BEDSIDE. AMBU BAG AT HEAD OF BED. NO RESPIRATORY DISTRESS. WILL CONTINUE TO MONITOR. Addendum: 04/14/19 at 2327 by ALECIA CRUZ RT Amended: Links added.
[2019-04-14 19:49] VITALS: BP 146/70
[2019-04-14] MEDS: SENNOSIDES 8.6 MG TABLET GT SCH (21:58)
[2019-04-15 00:40] VITALS: BP 125/68
[2019-04-15] MEDS: IPRATROPIUM NEB FS 0.5 MG/2.5 ML AMPUL.NEB NEB SCH ×4 (00:51→19:25)
[2019-04-15] MEDS: BIOTENE MOISTURIZING MM SCH ×4 (05:56→23:30)
[2019-04-15] MEDS: BLOOD SUGAR DIAGNOSTIC 1 EACH STRIP IN SCH ×4 (05:56→23:30)
[2019-04-15] MEDS: METOCLOPRAMIDE HCL 10 MG TABLET GT SCH ×4 (05:56→23:30)
[2019-04-15] MEDS: INSULIN REGULAR, HUMAN 100 UNIT/ML 3 ML VIAL SQ PRN ×4 (05:57→23:31)
[2019-04-15 06:32] VITALS: BP 128/62
[2019-04-15 07:54] VITALS: BP 155/77
[2019-04-15] MEDS: HYDROGEN PEROXIDE 480 ML BOTTLE TP SCH ×2 (08:09→20:19)
[2019-04-15] MEDS: COD LIVER OIL/ZINC OXIDE 120 GM TUBE TP SCH ×2 (09:00→20:58)
[2019-04-15] MEDS: HEPARIN SODIUM, PORCINE 5000 UNITS/1 ML VIAL SQ SCH ×2 (09:00→20:58)
[2019-04-15] MEDS: NYSTATIN/TRIAMCIN OINT 15 GM TUBE TP SCH ×2 (09:00→20:58)
[2019-04-15] MEDS: METOPROLOL TARTRATE 25 MG TABLET GT SCH ×2 (09:00→20:57)
[2019-04-15] MEDS: DOCUSATE SODIUM LIQ 100 MG/10 ML UDC GT SCH (09:00)
[2019-04-15] MEDS: MULTIVIT W/MINERALS 1 TAB TABLET GT SCH (09:00)
[2019-04-15] MEDS: Z GUARD REMEDY 4 OZ OINT TP SCH ×4 (09:00→20:58)
[2019-04-15] MEDS: PROSOURCE / PROSTAT (PYXIS) 30 ML UDC GT SCH (09:00)
[2019-04-15] MEDS: VITAMINS A AND D 56.7 GM TUBE TP SCH ×2 (09:00→20:58)
[2019-04-15] MEDS: INSULIN DETEMIR 100 UNIT/ML CARTRIDGE SQ SCH ×2 (09:00→21:33)
[2019-04-15] MEDS: ACIDOPHILUS/BULGARICUS 1 EACH TAB.CHEW GT SCH ×2 (09:00→20:57)
[2019-04-15] MEDS: ZINC SULFATE 220 MG CAPSULE GT SCH (09:00)
[2019-04-15] MEDS: ASCORBIC ACID 500 MG TABLET GT SCH (09:00)
--- NOTE | 2019-04-15 10:15 | NUR ---
Seen by Dr Dixon. He ordered to DC NS at 60 mL/hr IV.
[2019-04-15 12:00] VITALS: BP 139/75
--- NOTE | 2019-04-15 14:54 | NUR ---
RT NOTES RECEIVED PATIENT ON VENT WITH ORDERED SETTINGS. TRACH TUBE IN PLACE, PATENT, AND SECURED WITH TRACH TIE. ALARMS ON AND AUDIBLE. VENT PLUGGED IN TO THE RED OUTLET. AMBU BAG AND BACK UP TRACH BY THE BEDSIDE. NO DISTRESS AT THIS TIME. Addendum: 04/15/19 at 1454 by ANDRES MARINO RT Amended: Links added.
[2019-04-15 18:43] VITALS: BP 118/70
--- NOTE | 2019-04-15 19:25 | NUR ---
RT pt received on current settings. trached with shiley 8. vent plugged in to red outlet. alarms on and audible. ambu bag at head of bed. spare trach at bedside. no respiratory distress. will continue to monitor. Addendum: 04/16/19 at 0238 by ALECIA CRUZ RT Amended: Links added.
[2019-04-15 21:29] VITALS: BP 147/72
[2019-04-15] MEDS: SENNOSIDES 8.6 MG TABLET GT SCH (21:33)
[2019-04-15] MEDS: NEPRO 1,000 ML BOTTLE GT PRN (23:36)
[2019-04-16 00:42] VITALS: BP 122/66
[2019-04-16] MEDS: IPRATROPIUM NEB FS 0.5 MG/2.5 ML AMPUL.NEB NEB SCH ×4 (01:01→19:55)
[2019-04-16] MEDS: BLOOD SUGAR DIAGNOSTIC 1 EACH STRIP IN SCH ×3 (05:48→17:58)
[2019-04-16] MEDS: METOCLOPRAMIDE HCL 10 MG TABLET GT SCH ×3 (05:48→17:58)
[2019-04-16] MEDS: INSULIN REGULAR, HUMAN 100 UNIT/ML 3 ML VIAL SQ PRN ×3 (05:49→17:59)
[2019-04-16] MEDS: BIOTENE MOISTURIZING MM SCH ×3 (05:49→17:58)
[2019-04-16 06:27] VITALS: BP 120/62
[2019-04-16 07:55] VITALS: BP 142/81
[2019-04-16] MEDS: HYDROGEN PEROXIDE 480 ML BOTTLE TP SCH ×2 (08:26→19:55)
[2019-04-16] MEDS: Z GUARD REMEDY 4 OZ OINT TP SCH ×4 (09:00→21:05)
[2019-04-16] MEDS: NYSTATIN/TRIAMCIN OINT 15 GM TUBE TP SCH ×2 (09:00→21:05)
[2019-04-16] MEDS: COD LIVER OIL/ZINC OXIDE 120 GM TUBE TP SCH ×2 (09:00→21:05)
[2019-04-16] MEDS: VITAMINS A AND D 56.7 GM TUBE TP SCH ×2 (09:00→21:05)
[2019-04-16] MEDS: DOCUSATE SODIUM LIQ 100 MG/10 ML UDC GT SCH (09:42)
[2019-04-16] MEDS: ACIDOPHILUS/BULGARICUS 1 EACH TAB.CHEW GT SCH ×2 (09:42→21:01)
[2019-04-16] MEDS: ASCORBIC ACID 500 MG TABLET GT SCH (09:43)
[2019-04-16] MEDS: ZINC SULFATE 220 MG CAPSULE GT SCH (09:43)
[2019-04-16] MEDS: PROSOURCE / PROSTAT (PYXIS) 30 ML UDC GT SCH (09:43)
[2019-04-16] MEDS: MULTIVIT W/MINERALS 1 TAB TABLET GT SCH (09:43)
[2019-04-16] MEDS: METOPROLOL TARTRATE 25 MG TABLET GT SCH ×2 (09:43→21:04)
[2019-04-16] MEDS: HEPARIN SODIUM, PORCINE 5000 UNITS/1 ML VIAL SQ SCH ×2 (09:45→21:05)
[2019-04-16] MEDS: INSULIN DETEMIR 100 UNIT/ML CARTRIDGE SQ SCH ×2 (09:56→21:37)
[2019-04-16 12:00] VITALS: BP 140/80
--- NOTE | 2019-04-16 12:05 | NUR ---
Seen by Dr Patrick. He ordered to increase water flushes from 250 to 350 mL via GT q 4 hours, do CBC and BMP.
--- NOTE | 2019-04-16 17:20 | NUR ---
Informed Dr Patrick earlier today that pt's sacral wound not healing well. He ordered wound consult with Dr Ralph Mendoza. Notified Dr Mendoza. He ordered to apply Therahoney and Mepilex on sacral wound.
--- NOTE | 2019-04-16 17:48 | NUR ---
Pt was noted with an open skin on the right shoulder earlier today. Received order to apply triple antibiotic ointment. Requested Dr Ralph Mendoza to see it. He said he will.
[2019-04-16 18:24] VITALS: BP 133/79
[2019-04-16 20:42] VITALS: BP 118/71
[2019-04-16] MEDS ORDERED: HYDROGEL DRESSING 90 GM TUBE TP SCH (21:00)
[2019-04-16] MEDS: BACI/NEOM/POLY B OINT PKT 1 UDPKT PACKET TP SCH (21:05)
[2019-04-16] MEDS: SENNOSIDES 8.6 MG TABLET GT SCH (21:05)
[2019-04-17] MEDS: METOCLOPRAMIDE HCL 10 MG TABLET GT SCH ×5 (00:12→23:26)
[2019-04-17] MEDS: BIOTENE MOISTURIZING MM SCH ×5 (00:12→23:26)
[2019-04-17] MEDS: BLOOD SUGAR DIAGNOSTIC 1 EACH STRIP IN SCH ×5 (00:12→23:26)
[2019-04-17] MEDS: INSULIN REGULAR, HUMAN 100 UNIT/ML 3 ML VIAL SQ PRN ×5 (00:13→23:42)
[2019-04-17 00:30] VITALS: BP 148/76
[2019-04-17] MEDS: IPRATROPIUM NEB FS 0.5 MG/2.5 ML AMPUL.NEB NEB SCH ×4 (01:39→19:30)
[2019-04-17] MEDS: NEPRO 1,000 ML BOTTLE GT PRN (05:46)
[2019-04-17 06:35] LABS: BASOPHILS % (AUTO) 0.5 % (0.0-2.0); HEMATOCRIT 33 % (33-45); HEMOGLOBIN 10.4 g/dL (11.5-14.8); LYMPHOCYTES # (AUTO) 1.1 /CMM (0.8-4.8); LYMPHOCYTES % (AUTO) 11.1 % (20.0-44.0); MEAN CORPUSCULAR HGB CONC 32 g/dl (31.0-36.0); MEAN CORPUSCULAR VOLUME 83 fL (82-100); MONOCYTES # (AUTO) 0.9 /CMM (0.1-1.30); MONOCYTES % (AUTO) 8.4 % (2.0-12.0); PLATELET COUNT (AUTO) 205 /CMM (150-450); RED BLOOD CELL COUNT(AUTO) 3.94 MIL/uL (4.0-5.2); WHITE BLOOD COUNT (AUTO) 10.2 K/uL (4.3-11.0)
[2019-04-17 06:40] VITALS: BP 142/70
[2019-04-17 06:43] LABS: CALCIUM, SERUM 9.7 mg/dL (8.5-10.1); CARBON DIOXIDE 29 mmol/L (21-32); CHLORIDE 102 mmol/L (98-107); CREATININE 1.8 mg/dL (0.6-1.3); GLUCOSE 227 mg/dL (74-106); POTASSIUM 4.4 mmol/L (3.5-5.1); SODIUM SERUM 140 mmol/L (136-145); UREA NITROGEN, BLOOD 71 mg/dL (7-18)
[2019-04-17 08:09] VITALS: BP 127/51
[2019-04-17] MEDS: Z GUARD REMEDY 4 OZ OINT TP SCH ×4 (09:00→20:47)
[2019-04-17] MEDS: COD LIVER OIL/ZINC OXIDE 120 GM TUBE TP SCH ×2 (09:00→20:47)
[2019-04-17] MEDS: NYSTATIN/TRIAMCIN OINT 15 GM TUBE TP SCH ×2 (09:00→20:47)
[2019-04-17] MEDS: BACI/NEOM/POLY B OINT PKT 1 UDPKT PACKET TP SCH ×2 (09:00→20:47)
[2019-04-17] MEDS: HYDROGEN PEROXIDE 480 ML BOTTLE TP SCH ×2 (09:00→20:47)
[2019-04-17] MEDS: VITAMINS A AND D 56.7 GM TUBE TP SCH ×2 (09:00→20:47)
[2019-04-17] MEDS: ACIDOPHILUS/BULGARICUS 1 EACH TAB.CHEW GT SCH ×2 (09:23→20:45)
[2019-04-17] MEDS: DOCUSATE SODIUM LIQ 100 MG/10 ML UDC GT SCH (09:23)
[2019-04-17] MEDS: METOPROLOL TARTRATE 25 MG TABLET GT SCH ×2 (09:24→20:45)
[2019-04-17] MEDS: PROSOURCE / PROSTAT (PYXIS) 30 ML UDC GT SCH (09:24)
[2019-04-17] MEDS: ASCORBIC ACID 500 MG TABLET GT SCH (09:24)
[2019-04-17] MEDS: MULTIVIT W/MINERALS 1 TAB TABLET GT SCH (09:24)
[2019-04-17] MEDS: ZINC SULFATE 220 MG CAPSULE GT SCH (09:24)
[2019-04-17] MEDS: HEPARIN SODIUM, PORCINE 5000 UNITS/1 ML VIAL SQ SCH ×2 (09:34→20:47)
[2019-04-17] MEDS: INSULIN DETEMIR 100 UNIT/ML CARTRIDGE SQ SCH ×2 (09:35→20:58)
--- NOTE | 2019-04-17 11:40 | NUR ---
INFORMED DR. GOODWIN REGARDING PATIENT'S LABS THIS MORNING OF BUN 71 AND CREAT AT 1.8, ORDERED BMP TO BE DONE AT 04/20/19, CARRIED OUT.
[2019-04-17] MEDS: MAGNESIUM HYDROXIDE 30 ML UDC PO PRN (11:51)
[2019-04-17 12:00] VITALS: BP 128/60
[2019-04-17 18:39] VITALS: BP 136/68
[2019-04-17 20:31] VITALS: BP 114/71
[2019-04-17] MEDS: SENNOSIDES 8.6 MG TABLET GT SCH (21:19)
--- NOTE | 2019-04-17 22:34 | NUR ---
PT RECEIVE STABLE ON MV, SETTINGS ARE AC 12 500 +5 @ 40% FIO2, ALARMS ARE ON AND AUDIBLE, SPARE TRACH AND AMBU BAG IS AT BEDSIDE, TRACH PATENT AND SECURED, VENT IS PLUG IS RED OUTLET, WILL CONTINUE TO MONITOR Addendum: 04/17/19 at 2234 by RENEE CANO RT Amended: Links added. Addendum: 04/17/19 at 223 by RENEE CANO RT VENT SETTINGS TYPE IN BY MISTAKE, CORRECT SETTINGS ARE AC 15 450 +5 @ 30% FIO2, WILL CONTINUE TO MONITOR
[2019-04-18] VITALS: BP 119/72
[2019-04-18] MEDS: IPRATROPIUM NEB FS 0.5 MG/2.5 ML AMPUL.NEB NEB SCH ×4 (01:52→20:14)
[2019-04-18] MEDS: NEPRO 1,000 ML BOTTLE GT PRN (03:09)
[2019-04-18] MEDS: BIOTENE MOISTURIZING MM SCH ×3 (05:31→17:16)
[2019-04-18] MEDS: METOCLOPRAMIDE HCL 10 MG TABLET GT SCH ×3 (05:31→17:16)
[2019-04-18] MEDS: BLOOD SUGAR DIAGNOSTIC 1 EACH STRIP IN SCH ×3 (05:42→17:16)
[2019-04-18] MEDS: INSULIN REGULAR, HUMAN 100 UNIT/ML 3 ML VIAL SQ PRN ×3 (05:43→17:17)
[2019-04-18 06:15] VITALS: BP 143/74
[2019-04-18 07:48] VITALS: BP 118/68
[2019-04-18] MEDS: BACI/NEOM/POLY B OINT PKT 1 UDPKT PACKET TP SCH ×2 (09:00→21:31)
[2019-04-18] MEDS: VITAMINS A AND D 56.7 GM TUBE TP SCH ×2 (09:00→21:32)
[2019-04-18] MEDS: Z GUARD REMEDY 4 OZ OINT TP SCH ×4 (09:00→21:31)
[2019-04-18] MEDS: COD LIVER OIL/ZINC OXIDE 120 GM TUBE TP SCH ×2 (09:00→21:31)
[2019-04-18] MEDS: NYSTATIN/TRIAMCIN OINT 15 GM TUBE TP SCH ×2 (09:00→21:31)
[2019-04-18] MEDS: HYDROGEN PEROXIDE 480 ML BOTTLE TP SCH ×2 (09:05→20:14)
[2019-04-18] MEDS: DOCUSATE SODIUM LIQ 100 MG/10 ML UDC GT SCH (09:28)
[2019-04-18] MEDS: ACIDOPHILUS/BULGARICUS 1 EACH TAB.CHEW GT SCH ×2 (09:28→21:30)
[2019-04-18] MEDS: METOPROLOL TARTRATE 25 MG TABLET GT SCH ×2 (09:29→21:30)
[2019-04-18] MEDS: ASCORBIC ACID 500 MG TABLET GT SCH (09:29)
[2019-04-18] MEDS: MULTIVIT W/MINERALS 1 TAB TABLET GT SCH (09:29)
[2019-04-18] MEDS: ZINC SULFATE 220 MG CAPSULE GT SCH (09:29)
[2019-04-18] MEDS: PROSOURCE / PROSTAT (PYXIS) 30 ML UDC GT SCH (09:29)
[2019-04-18] MEDS: HEPARIN SODIUM, PORCINE 5000 UNITS/1 ML VIAL SQ SCH ×2 (09:33→21:30)
[2019-04-18] MEDS: INSULIN DETEMIR 100 UNIT/ML CARTRIDGE SQ SCH ×2 (09:47→21:31)
[2019-04-18 12:00] VITALS: BP 138/71
[2019-04-18 18:29] VITALS: BP 151/63
[2019-04-18 21:04] VITALS: BP 118/63
[2019-04-18] MEDS: SENNOSIDES 8.6 MG TABLET GT SCH (21:32)
[2019-04-19] VITALS: BP 130/72
[2019-04-19] MEDS: METOCLOPRAMIDE HCL 10 MG TABLET GT SCH ×4 (00:04→17:05)
[2019-04-19] MEDS: BIOTENE MOISTURIZING MM SCH ×4 (00:04→17:05)
[2019-04-19] MEDS: BLOOD SUGAR DIAGNOSTIC 1 EACH STRIP IN SCH ×4 (00:04→17:05)
[2019-04-19] MEDS: INSULIN REGULAR, HUMAN 100 UNIT/ML 3 ML VIAL SQ PRN ×4 (00:05→17:12)
[2019-04-19] MEDS: IPRATROPIUM NEB FS 0.5 MG/2.5 ML AMPUL.NEB NEB SCH ×4 (01:03→19:54)
[2019-04-19 06:00] VITALS: BP 125/68
[2019-04-19] MEDS: NEPRO 1,000 ML BOTTLE GT PRN (06:37)
[2019-04-19 07:56] VITALS: BP 143/96
[2019-04-19] MEDS: DOCUSATE SODIUM LIQ 100 MG/10 ML UDC GT SCH (08:55)
[2019-04-19] MEDS: ACIDOPHILUS/BULGARICUS 1 EACH TAB.CHEW GT SCH ×2 (08:55→20:44)
[2019-04-19] MEDS: MULTIVIT W/MINERALS 1 TAB TABLET GT SCH (08:57)
[2019-04-19] MEDS: ASCORBIC ACID 500 MG TABLET GT SCH (08:57)
[2019-04-19] MEDS: METOPROLOL TARTRATE 25 MG TABLET GT SCH ×2 (08:57→20:44)
[2019-04-19] MEDS: PROSOURCE / PROSTAT (PYXIS) 30 ML UDC GT SCH (08:57)
[2019-04-19] MEDS: ZINC SULFATE 220 MG CAPSULE GT SCH (08:57)
[2019-04-19] MEDS: NYSTATIN/TRIAMCIN OINT 15 GM TUBE TP SCH ×2 (09:00→21:12)
[2019-04-19] MEDS: BACI/NEOM/POLY B OINT PKT 1 UDPKT PACKET TP SCH ×2 (09:00→21:12)
[2019-04-19] MEDS: VITAMINS A AND D 56.7 GM TUBE TP SCH ×2 (09:00→21:13)
[2019-04-19] MEDS: Z GUARD REMEDY 4 OZ OINT TP SCH ×4 (09:00→21:13)
[2019-04-19] MEDS: COD LIVER OIL/ZINC OXIDE 120 GM TUBE TP SCH ×2 (09:00→21:12)
[2019-04-19] MEDS: HEPARIN SODIUM, PORCINE 5000 UNITS/1 ML VIAL SQ SCH ×2 (09:01→20:44)
[2019-04-19] MEDS: INSULIN DETEMIR 100 UNIT/ML CARTRIDGE SQ SCH ×2 (09:16→21:12)
[2019-04-19] MEDS: HYDROGEN PEROXIDE 480 ML BOTTLE TP SCH ×2 (09:25→21:07)
[2019-04-19 12:00] VITALS: BP 126/74
--- NOTE | 2019-04-19 13:00 | NUR ---
Resident noted with redness on left heel. Skin intact. Responsible libertarian informed.
[2019-04-19 18:09] VITALS: BP 128/71
[2019-04-19 20:42] VITALS: BP 131/64
[2019-04-19] MEDS: SENNOSIDES 8.6 MG TABLET GT SCH (21:13)
[2019-04-20] VITALS: BP 135/72
[2019-04-20] MEDS: BLOOD SUGAR DIAGNOSTIC 1 EACH STRIP IN SCH ×4 (00:18→17:06)
[2019-04-20] MEDS: METOCLOPRAMIDE HCL 10 MG TABLET GT SCH ×5 (00:18→23:17)
[2019-04-20] MEDS: BIOTENE MOISTURIZING MM SCH ×5 (00:18→23:18)
[2019-04-20] MEDS: INSULIN REGULAR, HUMAN 100 UNIT/ML 3 ML VIAL SQ PRN ×4 (00:19→17:07)
[2019-04-20] MEDS: IPRATROPIUM NEB FS 0.5 MG/2.5 ML AMPUL.NEB NEB SCH ×4 (01:32→19:35)
[2019-04-20] MEDS: NEPRO 1,000 ML BOTTLE GT PRN (05:42)
[2019-04-20 06:00] VITALS: BP 136/73
[2019-04-20 07:47] LABS: CALCIUM, SERUM 9.6 mg/dL (8.5-10.1); CARBON DIOXIDE 28 mmol/L (21-32); CHLORIDE 98 mmol/L (98-107); CREATININE 2.1 mg/dL (0.6-1.3); GLUCOSE 280 mg/dL (74-106); POTASSIUM 4.5 mmol/L (3.5-5.1); SODIUM SERUM 135 mmol/L (136-145)
[2019-04-20 07:53] VITALS: BP 147/78
--- NOTE | 2019-04-20 08:05 | NUR ---
CRITICAL LAB VALUE REPORTED BY BENJI FROM LAB, BUN OF 84. NOTIFIED DR. GOODWIN, AWAITING FOR ORDERS.
[2019-04-20] MEDS: HYDROGEN PEROXIDE 480 ML BOTTLE TP SCH ×2 (08:17→21:19)
[2019-04-20 08:50] LABS: UREA NITROGEN, BLOOD 84 mg/dL (7-18)
[2019-04-20] MEDS: DOCUSATE SODIUM LIQ 100 MG/10 ML UDC GT SCH (08:56)
[2019-04-20] MEDS: PROSOURCE / PROSTAT (PYXIS) 30 ML UDC GT SCH (08:56)
[2019-04-20] MEDS: METOPROLOL TARTRATE 25 MG TABLET GT SCH ×2 (08:56→21:17)
[2019-04-20] MEDS: ACIDOPHILUS/BULGARICUS 1 EACH TAB.CHEW GT SCH ×2 (08:56→21:15)
[2019-04-20] MEDS: ASCORBIC ACID 500 MG TABLET GT SCH (08:57)
[2019-04-20] MEDS: MULTIVIT W/MINERALS 1 TAB TABLET GT SCH (08:57)
[2019-04-20] MEDS: ZINC SULFATE 220 MG CAPSULE GT SCH (08:57)
[2019-04-20] MEDS: BACI/NEOM/POLY B OINT PKT 1 UDPKT PACKET TP SCH ×2 (09:00→21:19)
[2019-04-20] MEDS: NYSTATIN/TRIAMCIN OINT 15 GM TUBE TP SCH ×2 (09:00→21:19)
[2019-04-20] MEDS: Z GUARD REMEDY 4 OZ OINT TP SCH ×4 (09:00→21:19)
[2019-04-20] MEDS: VITAMINS A AND D 56.7 GM TUBE TP SCH ×2 (09:00→21:19)
[2019-04-20] MEDS: COD LIVER OIL/ZINC OXIDE 120 GM TUBE TP SCH ×2 (09:00→21:19)
[2019-04-20] MEDS: HEPARIN SODIUM, PORCINE 5000 UNITS/1 ML VIAL SQ SCH ×2 (09:01→21:19)
[2019-04-20] MEDS: INSULIN DETEMIR 100 UNIT/ML CARTRIDGE SQ SCH ×2 (09:02→21:00)
[2019-04-20] MEDS ORDERED: IV D5W 1,000 ML IV PRN (09:15)
[2019-04-20 12:00] VITALS: BP 138/76
--- NOTE | 2019-04-20 13:45 | NUR ---
PER DR. GOODWIN START IVF 1/2NS AT 60ML/HR FOR HYDRATION, BUN AT 84.
--- NOTE | 2019-04-20 13:55 | NUR ---
DR. COE ALSO ORDERED IVF D5W AT 100ML/HR, INFORMED DR. GOODWIN OF ORDER. PER DR. GOODWIN JUST KEEP PATIENT ON IVF 1/2NS AT 60ML/HR, CARRIED OUT.
[2019-04-20] MEDS: IV 1/2NS 1000 ML 1,000 ML IV PRN (14:35)
[2019-04-20 18:38] VITALS: BP 132/78
[2019-04-20 20:31] VITALS: BP 139/63
[2019-04-20] MEDS: SENNOSIDES 8.6 MG TABLET GT SCH (21:20)
--- NOTE | 2019-04-20 21:36 | NUR ---
PT RECEIVE STABLE ON MV, SETTINGS ARE AC 15 450 +5 @ 30% FIO2, TRACH PATENT AND SECURED, ALARMS ARE ON AND AUDIBLE, SPARE TRACH AND AMBU BAG IS AT BEDSIDE, VENT IS PLUG IN TO RED OUTLET, WILL CONTINUE TO MONITOR Addendum: 04/20/19 at 2136 by RENEE CANO RT Amended: Links added.
[2019-04-21] VITALS: BP 139/63
[2019-04-21] MEDS: BLOOD SUGAR DIAGNOSTIC 1 EACH STRIP IN SCH ×4 (00:23→17:24)
[2019-04-21] MEDS: INSULIN REGULAR, HUMAN 100 UNIT/ML 3 ML VIAL SQ PRN ×4 (00:30→17:27)
[2019-04-21] MEDS: IPRATROPIUM NEB FS 0.5 MG/2.5 ML AMPUL.NEB NEB SCH ×4 (01:44→19:54)
[2019-04-21] MEDS: METOCLOPRAMIDE HCL 10 MG TABLET GT SCH ×3 (05:38→17:01)
[2019-04-21] MEDS: BIOTENE MOISTURIZING MM SCH ×3 (05:39→17:25)
[2019-04-21 06:00] VITALS: BP 138/66
[2019-04-21] MEDS: NEPRO 1,000 ML BOTTLE GT PRN (07:02)
[2019-04-21 07:16] LABS: BASOPHILS % (AUTO) 0.3 % (0.0-2.0); EOSINOPHILS % (AUTO) 2.6 % (0.0-6.0); HEMATOCRIT 31 % (33-45); HEMOGLOBIN 9.9 g/dL (11.5-14.8); LYMPHOCYTES # (AUTO) 1.4 /CMM (0.8-4.8); LYMPHOCYTES % (AUTO) 13.4 % (20.0-44.0); MEAN CORPUSCULAR HGB CONC 32 g/dl (31.0-36.0); MEAN CORPUSCULAR VOLUME 84 fL (82-100); MONOCYTES # (AUTO) 0.8 /CMM (0.1-1.30); NEUTROPHILS # (AUTO) 7.7 /CMM (1.8-8.9); NEUTROPHILS % (AUTO) 75.7 % (43.0-81.0); PLATELET COUNT (AUTO) 185 /CMM (150-450); WHITE BLOOD COUNT (AUTO) 10.1 K/uL (4.3-11.0)
[2019-04-21 07:29] LABS: ALANINE AMINOTRANSFERASE 21 U/L (12-78); ALBUMIN 2.8 g/dL (3.4-5.0); ALKALINE PHOSPHATASE 104 U/L (46-116); ASPARTATE AMINOTRANSFERASE 14 U/L (15-37); BILIRUBIN,TOTAL 0.2 mg/dL (0.2-1.0); CALCIUM, SERUM 9.5 mg/dL (8.5-10.1); CARBON DIOXIDE 26 mmol/L (21-32); CHLORIDE 98 mmol/L (98-107); GLUCOSE 307 mg/dL (74-106); PHOSPHORUS 4.1 mg/dL (2.5-4.9); POTASSIUM 4.4 mmol/L (3.5-5.1); SODIUM SERUM 135 mmol/L (136-145)
[2019-04-21 07:32] LABS: UREA NITROGEN, BLOOD 86 mg/dL (7-18)
[2019-04-21 07:36] VITALS: BP 148/72
[2019-04-21] MEDS: HYDROGEN PEROXIDE 480 ML BOTTLE TP SCH ×2 (09:00→21:05)
[2019-04-21] MEDS: MULTIVIT W/MINERALS 1 TAB TABLET GT SCH (09:43)
[2019-04-21] MEDS: PROSOURCE / PROSTAT (PYXIS) 30 ML UDC GT SCH (09:43)
[2019-04-21] MEDS: ACIDOPHILUS/BULGARICUS 1 EACH TAB.CHEW GT SCH ×2 (09:43→20:33)
[2019-04-21] MEDS: METOPROLOL TARTRATE 25 MG TABLET GT SCH ×2 (09:43→20:34)
[2019-04-21] MEDS: DOCUSATE SODIUM LIQ 100 MG/10 ML UDC GT SCH (09:43)
[2019-04-21] MEDS: ZINC SULFATE 220 MG CAPSULE GT SCH (09:44)
[2019-04-21] MEDS: ASCORBIC ACID 500 MG TABLET GT SCH (09:44)
[2019-04-21] MEDS: HEPARIN SODIUM, PORCINE 5000 UNITS/1 ML VIAL SQ SCH ×2 (09:47→21:21)
[2019-04-21] MEDS: Z GUARD REMEDY 4 OZ OINT TP SCH ×4 (09:48→20:34)
[2019-04-21] MEDS: INSULIN DETEMIR 100 UNIT/ML CARTRIDGE SQ SCH ×2 (09:48→21:22)
[2019-04-21] MEDS: VITAMINS A AND D 56.7 GM TUBE TP SCH ×2 (09:48→20:34)
[2019-04-21] MEDS: BACI/NEOM/POLY B OINT PKT 1 UDPKT PACKET TP SCH ×2 (09:48→20:34)
[2019-04-21] MEDS: NYSTATIN/TRIAMCIN OINT 15 GM TUBE TP SCH ×2 (09:48→20:34)
[2019-04-21] MEDS: COD LIVER OIL/ZINC OXIDE 120 GM TUBE TP SCH ×2 (09:48→20:34)
[2019-04-21] MEDS: IV 1/2NS 1000 ML 1,000 ML IV PRN (10:00)
[2019-04-21 12:00] VITALS: BP 132/70
--- NOTE | 2019-04-21 14:28 | NUR ---
YNES contacted the pt.s responsible alliance party, Jennifer [phone] to schedule filling out new intake paperwork as the pt.s have received new accounts. The family stated : that they are available to fill out the intake paperwork 04/24/19 at 3 pm. YNES will follow up with them.
[2019-04-21 18:00] VITALS: BP 133/59
[2019-04-21 20:10] VITALS: BP 109/58
[2019-04-21 21:05] LABS: APPEARANCE,URINE CLEAR (CLEAR); BILIRUBIN,URINE NEGATIVE (NEGATIVE); BLOOD, URINE SMALL Ery/uL (NEGATIVE); COLOR,URINE YELLOW (YELLOW); KETONES,URINE NEGATIVE (NEGATIVE); LEUKOCYTE ESTERASE ,URINE MODERATE (NEGATIVE); NITRITE, URINE NEGATIVE (NEGATIVE); PROTEIN,URINE 30 mg/dl (NEGATIVE); UGLUCOSE NEGATIVE (NEGATIVE); UROBILINOGEN,URINE 0.2 EU/dL (0.2)
[2019-04-21 21:12] LABS: CREATININE, URINE 20.6 MG/DL (30.0-125.0); URINE TOTAL PROTEIN 40.4 mg/dL (0-11.9)
[2019-04-21] MEDS: SENNOSIDES 8.6 MG TABLET GT SCH (21:22)
[2019-04-21 21:23] LABS: BACTERIA,URINE 2+ /HPF (None Seen); SQUAMOUS EPITHELIAL CELL,UR Few /HPF (None Seen); WBC,URINE 81-100 /HPF (0-3); YEAST,URINE Few /HPF (None Seen)
[2019-04-21 21:52] LABS: EOSINOPHIL,URINE None Seen
[2019-04-22] VITALS: BP 129/70
[2019-04-22] MEDS: INSULIN REGULAR, HUMAN 100 UNIT/ML 3 ML VIAL SQ PRN ×5 (01:04→23:35)
[2019-04-22] MEDS: IPRATROPIUM NEB FS 0.5 MG/2.5 ML AMPUL.NEB NEB SCH ×4 (01:34→19:52)
[2019-04-22] MEDS: IV 1/2NS 1000 ML 1,000 ML IV PRN ×2 (03:00→20:06)
[2019-04-22] MEDS: METOCLOPRAMIDE HCL 10 MG TABLET GT SCH ×5 (05:38→23:34)
[2019-04-22] MEDS: BIOTENE MOISTURIZING MM SCH ×5 (05:38→23:34)
[2019-04-22] MEDS: BLOOD SUGAR DIAGNOSTIC 1 EACH STRIP IN SCH ×5 (05:38→23:34)
[2019-04-22 06:00] VITALS: BP 134/65
[2019-04-22] MEDS: NEPRO 1,000 ML BOTTLE GT PRN (06:24)
[2019-04-22 07:45] VITALS: BP 103/42
[2019-04-22] MEDS: VITAMINS A AND D 56.7 GM TUBE TP SCH ×2 (09:00→21:11)
[2019-04-22] MEDS: Z GUARD REMEDY 4 OZ OINT TP SCH ×4 (09:00→21:11)
[2019-04-22] MEDS: BACI/NEOM/POLY B OINT PKT 1 UDPKT PACKET TP SCH ×2 (09:00→21:11)
[2019-04-22] MEDS: NYSTATIN/TRIAMCIN OINT 15 GM TUBE TP SCH ×2 (09:00→21:11)
[2019-04-22] MEDS: HYDROGEN PEROXIDE 480 ML BOTTLE TP SCH ×2 (09:00→20:07)
[2019-04-22] MEDS: ACIDOPHILUS/BULGARICUS 1 EACH TAB.CHEW GT SCH ×2 (09:51→21:09)
[2019-04-22] MEDS: DOCUSATE SODIUM LIQ 100 MG/10 ML UDC GT SCH (09:51)
[2019-04-22] MEDS: MULTIVIT W/MINERALS 1 TAB TABLET GT SCH (09:52)
[2019-04-22] MEDS: ZINC SULFATE 220 MG CAPSULE GT SCH (09:52)
[2019-04-22] MEDS: PROSOURCE / PROSTAT (PYXIS) 30 ML UDC GT SCH (09:52)
[2019-04-22] MEDS: METOPROLOL TARTRATE 25 MG TABLET GT SCH ×2 (09:52→21:09)
[2019-04-22] MEDS: ASCORBIC ACID 500 MG TABLET GT SCH (09:52)
[2019-04-22] MEDS: HEPARIN SODIUM, PORCINE 5000 UNITS/1 ML VIAL SQ SCH ×2 (09:53→21:10)
[2019-04-22] MEDS: INSULIN DETEMIR 100 UNIT/ML CARTRIDGE SQ SCH ×2 (09:54→21:11)
[2019-04-22] MEDS: COD LIVER OIL/ZINC OXIDE 120 GM TUBE TP SCH ×2 (09:54→21:11)
[2019-04-22 12:00] VITALS: BP 121/59
[2019-04-22 18:16] VITALS: BP 110/54
[2019-04-22 19:58] VITALS: BP 139/82
--- NOTE | 2019-04-22 20:42 | NUR ---
RT NOTE PT RECEIVED TRACHED ON MECHANICAL VENTILATION. AMBU BAG/BACK UP TRACH @ BEDSIDE. TX GIVEN, NO ADVERSE REACTIONS NOTED. SX DONE, TRACH SECURED AND PATENT. ALARMS ON AND AUDIBLE. VENT PLUGGED TO RED OUTLET. NO SOB NOTED. WILL MONITOR T/O SHIFT. CONT. PULSE OX CONNECTED. Addendum: 04/22/19 at 2041 by MANOLO MCDONNELL RT Amended: Links added.
[2019-04-22] MEDS: SENNOSIDES 8.6 MG TABLET GT SCH (21:14)
[2019-04-23 00:26] VITALS: BP 120/58
[2019-04-23] MEDS: IPRATROPIUM NEB FS 0.5 MG/2.5 ML AMPUL.NEB NEB SCH ×2 (02:26→07:46)
[2019-04-23] MEDS: BIOTENE MOISTURIZING MM SCH (05:31)
[2019-04-23] MEDS: METOCLOPRAMIDE HCL 10 MG TABLET GT SCH (05:31)
[2019-04-23] MEDS: BLOOD SUGAR DIAGNOSTIC 1 EACH STRIP IN SCH (05:37)
[2019-04-23] MEDS: INSULIN REGULAR, HUMAN 100 UNIT/ML 3 ML VIAL SQ PRN (05:38)
[2019-04-23 06:14] VITALS: BP 124/56
[2019-04-23 07:37] VITALS: BP 125/54
== END 2019-04-21 23:59 | disposition still patient (30) | DRG 166 ==
LOC: SA
PROVIDERS: ADMIT Internal Medicine; ATTEND Internal Medicine
PROC: 5A1955Z Respiratory Ventilation, Greater than 96 Consecutive Hours (ICD-10-PCS; principal; 2018-04-22)
PROC: 0KBP0ZZ Excision of Left Hip Muscle, Open Approach (ICD-10-PCS; 2018-05-01)
PROC: 0KBN0ZZ Excision of Right Hip Muscle, Open Approach (ICD-10-PCS; 2018-05-01)
PROC: 0KBP0ZZ Excision of Left Hip Muscle, Open Approach (ICD-10-PCS; 2018-05-15)
PROC: 0KBN0ZZ Excision of Right Hip Muscle, Open Approach (ICD-10-PCS; 2018-05-15)
PROC: 0KBW0ZZ Excision of Left Foot Muscle, Open Approach (ICD-10-PCS; 2018-05-22)
PROC: 0JB70ZZ Excision of Back Subcutaneous Tissue and Fascia, Open Approach (ICD-10-PCS; 2018-05-29)
PROC: 0KBW0ZZ Excision of Left Foot Muscle, Open Approach (ICD-10-PCS; 2018-06-27)
PROC: 0KBW0ZZ Excision of Left Foot Muscle, Open Approach (ICD-10-PCS; 2018-07-18)
PROC: 0D20XUZ Change Feeding Device in Upper Intestinal Tract, External Approach (ICD-10-PCS; 2018-09-16)
PROC: 0KBL0ZZ Excision of Left Abdomen Muscle, Open Approach (ICD-10-PCS; 2018-12-17)
PROC: 0KBK0ZZ Excision of Right Abdomen Muscle, Open Approach (ICD-10-PCS; 2018-12-17)
PROC: 0HB7XZZ Excision of Abdomen Skin, External Approach (ICD-10-PCS; 2019-01-26)
PROC: 0HB7XZZ Excision of Abdomen Skin, External Approach (ICD-10-PCS; 2019-01-28)
PROC: 0HB7XZZ Excision of Abdomen Skin, External Approach (ICD-10-PCS; 2019-02-02)
PROC: 0HB7XZZ Excision of Abdomen Skin, External Approach (ICD-10-PCS; 2019-02-09)
PROC: 0JB80ZZ Excision of Abdomen Subcutaneous Tissue and Fascia, Open Approach (ICD-10-PCS; 2019-02-19)
DX: J96.10 Chronic respiratory failure, unspecified whether with hypoxia or hypercapnia (principal); L89.894 Pressure ulcer of other site, stage 4; L89.154 Pressure ulcer of sacral region, stage 4; R53.2 Functional quadriplegia; E43 Unspecified severe protein-calorie malnutrition; D68.59 Other primary thrombophilia; G93.1 Anoxic brain damage, not elsewhere classified; Z99.11 Dependence on respirator [ventilator] status; I42.9 Cardiomyopathy, unspecified; E11.52 Type 2 diabetes mellitus with diabetic peripheral angiopathy with gangrene; I82.622 Acute embolism and thrombosis of deep veins of left upper extremity; L03.311 Cellulitis of abdominal wall; M86.672 Other chronic osteomyelitis, left ankle and foot; I10 Essential (primary) hypertension; Z86.74 Personal history of sudden cardiac arrest; R13.10 Dysphagia, unspecified; Z93.0 Tracheostomy status; E78.5 Hyperlipidemia, unspecified; F03.90 Unspecified dementia, unspecified severity, without behavioral disturbance, psychotic disturbance, mood disturbance, and anxiety; Z66 Do not resuscitate; Z68.22 Body mass index [BMI] 22.0-22.9, adult; K29.80 Duodenitis without bleeding; Z93.1 Gastrostomy status; K29.70 Gastritis, unspecified, without bleeding; H54.8 Legal blindness, as defined in USA; H35.52 Pigmentary retinal dystrophy; I25.10 Atherosclerotic heart disease of native coronary artery without angina pectoris; J44.9 Chronic obstructive pulmonary disease, unspecified; K44.9 Diaphragmatic hernia without obstruction or gangrene; L89.320 Pressure ulcer of left buttock, unstageable; L89.310 Pressure ulcer of right buttock, unstageable; M24.562 Contracture, left knee; M24.561 Contracture, right knee; L97.529 Non-pressure chronic ulcer of other part of left foot with unspecified severity; E11.65 Type 2 diabetes mellitus with hyperglycemia; E11.69 Type 2 diabetes mellitus with other specified complication; I25.2 Old myocardial infarction; I70.0 Atherosclerosis of aorta; Z79.01 Long term (current) use of anticoagulants; J96.11 Chronic respiratory failure with hypoxia; L30.9 Dermatitis, unspecified; L60.3 Nail dystrophy; M85.80 Other specified disorders of bone density and structure, unspecified site; Z74.01 Bed confinement status; Z87.01 Personal history of pneumonia (recurrent); Z87.440 Personal history of urinary (tract) infections
CPT/HCPCS: 31720; 36415; 36569; 43246; 71045-TC; 74018; 76882; 80048-TC; 80053-TC; 80061-TC; 80202-TC; 81000-TC; 82040-TC; 82088; 82247-TC; 82248-TC; 82565-TC; 82570-TC; 82962-TC; 83605-TC; 83735-TC; 84100-TC; 84155-TC; 84244; 84300-TC; 84478-TC; 84520-TC; 85025-TC; 85610-TC; 85652-TC; 85730-TC; 86580-TC; 87040-TC; 87070-TC; 87086-TC; 87186-TC; 88305-TC; 93971-TC; 94003-TC; 94760-TC; 94762-TC; 94799-TC; A4216; A4217; A4623; A6248; A6253; A7526; C1751; J0278; J0692; J0696; J0770; J1580; J1644; J1815; J1956; J2020; J2250; J2405; J2543; J2704; J2765; J3010; J3370; J3475; J3480; J3490; J7030; J7042; J7060; J7070; J8597; Q0162; Q9963

== ENCOUNTER 2018-11-12 08:00 | Day surgery (SDC) | payer MEDICARE, MEDICAID ==
[~2018-11-12 08:00] MED LIST changes: +MAGN400T6 PO; -MAGN400T8 PO; +METO-356 PO; -METO25TA4 PO
[2018-11-12] MEDS ORDERED: SILVER NITRATE APPLICATOR 1 EA BOX ONE (12:40)
== END 2018-11-12 13:00 | disposition home or self-care (01) ==
LOC: DS 08:00
PROVIDERS: ATTEND Surgery
DX: K94.23 Gastrostomy malfunction (principal); K21.9 Gastro-esophageal reflux disease without esophagitis; D64.9 Anemia, unspecified; I10 Essential (primary) hypertension; J44.9 Chronic obstructive pulmonary disease, unspecified; F32.9 Major depressive disorder, single episode, unspecified; Z79.899 Other long term (current) drug therapy; Z79.82 Long term (current) use of aspirin
CPT/HCPCS: 43760; 88305-TC

== ENCOUNTER 2020-04-22 00:01 | Inpatient (IN) | payer MEDICARE, MEDICAID ==
[~2020-04-22] VITALS: Ht 157.5 cm; Wt 77.1 kg
[~2020-04-22 00:01] MED LIST changes: +AMLO-212 PO; -AMLO5TAB9 PO; -MAGN400T6 PO; +MAGN400T8 PO; -METO-356 PO; +METO25TA4 PO
[2020-04-25] MEDS ORDERED: ACETAMINOPHEN 650 MG/20 ML UDC- SA PATIENTS-PAIN ONLY GT PRN (12:30)
[2020-04-25] MEDS ORDERED: ONDANSETRON HCL 4 MG/5 ML SOLUTION GT PRN (12:30)
[2020-04-25] MEDS ORDERED: HYDROGEN PEROXIDE 480 ML BOTTLE TP PRN (12:30)
[2020-04-25] MEDS ORDERED: NA PHOS,M-B/NA PHOS,DI-BA 1 EA ENEMA RC PRN ×2 (12:30→16:00)
[2020-04-25] MEDS ORDERED: DEXTROSE 50%-WATER 50 ML DISP.SYRIN IV PRN (12:30)
[2020-04-25] MEDS ORDERED: ACETAMINOPHEN 650 MG/20 ML UDC- SA PATIENTS-FEVER ONLY GT PRN (12:30)
[2020-04-25] MEDS ORDERED: CLONIDINE HCL 0.1 MG TABLET GT PRN (12:30)
[2020-04-25] MEDS ORDERED: IPRATROPIUM NEB FS 0.5 MG/2.5 ML AMPUL.NEB NEB PRN (12:30)
--- NOTE | 2020-04-25 12:45 | NUR ---
Virtual rounds done with AVERY Mata, no new order given.
--- NOTE | 2020-04-25 12:57 | NUR ---
Please see resident's previous account [id number] for all assessments and nurses notes. Originally admitted on 08/29/17.
[2020-04-25] MEDS: ACIDOPHILUS/BULGARICUS 1 EACH TAB.CHEW GT SCH (13:22)
[2020-04-25] MEDS: ALBUTEROL FS 2.5 MG/0.5 ML VIAL.NEB NEB SCH ×2 (13:28→19:28)
[2020-04-25] MEDS: IPRATROPIUM NEB FS 0.5 MG/2.5 ML AMPUL.NEB NEB SCH ×2 (13:28→19:28)
[2020-04-25 17:03] VITALS: BP 124/43
[2020-04-25] MEDS: METOCLOPRAMIDE HCL 10 MG TABLET GT SCH ×2 (18:13→23:46)
[2020-04-25] MEDS: BLOOD SUGAR DIAGNOSTIC 1 EACH STRIP IN SCH ×2 (18:13→23:46)
[2020-04-25] MEDS: POLYVINYL ALCOHOL 15 ML BOTTLE OP SCH ×2 (18:13→23:46)
[2020-04-25] MEDS: BIOTENE MOISTURIZING MM SCH ×2 (18:13→23:46)
[2020-04-25] MEDS: INSULIN REGULAR, HUMAN 100 UNIT/ML 3 ML VIAL SQ SCH ×2 (18:14→23:48)
[2020-04-25] MEDS: INSULIN REGULAR, HUMAN 100 UNIT/ML 3 ML VIAL SQ PRN ×2 (18:15→23:50)
[2020-04-25] MEDS: HYDROGEN PEROXIDE 480 ML BOTTLE TP SCH (19:29)
[2020-04-25] MEDS: METOPROLOL TARTRATE 25 MG TABLET GT SCH (20:10)
[2020-04-25] MEDS: HEPARIN SODIUM, PORCINE 5000 UNITS/1 ML VIAL SQ SCH (20:12)
[2020-04-25] MEDS: INSULIN DETEMIR 100 UNIT/ML CARTRIDGE SQ SCH (20:13)
[2020-04-25] MEDS: VITAMINS A AND D 56.7 GM TUBE TP SCH (20:14)
[2020-04-25] MEDS: Z GUARD REMEDY 4 OZ OINT TP SCH (20:14)
[2020-04-25 20:19] VITALS: BP 106/72
[2020-04-25] MEDS: SENNOSIDES 8.6 MG TABLET GT SCH (21:19)
[2020-04-26] MEDS: ACIDOPHILUS/BULGARICUS 1 EACH TAB.CHEW GT SCH ×2 (00:30→12:19)
[2020-04-26 01:57] VITALS: BP 114/65
[2020-04-26] MEDS: IPRATROPIUM NEB FS 0.5 MG/2.5 ML AMPUL.NEB NEB SCH ×4 (02:04→19:43)
[2020-04-26] MEDS: ALBUTEROL FS 2.5 MG/0.5 ML VIAL.NEB NEB SCH ×4 (02:04→19:43)
[2020-04-26] MEDS: BLOOD SUGAR DIAGNOSTIC 1 EACH STRIP IN SCH ×4 (05:06→23:21)
[2020-04-26] MEDS: BIOTENE MOISTURIZING MM SCH ×4 (05:06→23:21)
[2020-04-26] MEDS: POLYVINYL ALCOHOL 15 ML BOTTLE OP SCH ×4 (05:06→23:21)
[2020-04-26] MEDS: METOCLOPRAMIDE HCL 10 MG TABLET GT SCH ×4 (05:06→23:21)
[2020-04-26] MEDS: INSULIN REGULAR, HUMAN 100 UNIT/ML 3 ML VIAL SQ SCH ×4 (05:07→23:22)
[2020-04-26] MEDS: INSULIN REGULAR, HUMAN 100 UNIT/ML 3 ML VIAL SQ PRN ×4 (05:08→23:23)
[2020-04-26] MEDS: HYDROGEN PEROXIDE 480 ML BOTTLE TP SCH ×2 (07:25→19:43)
[2020-04-26 07:30] VITALS: BP 103/72
[2020-04-26] MEDS: FERROUS SULFATE - FOR SA ONLY 330 MG/7.5 ML UDC GT SCH (08:36)
[2020-04-26] MEDS: DOCUSATE SODIUM LIQ 100 MG/10 ML UDC GT SCH (08:36)
[2020-04-26] MEDS: MULTIVIT W/MINERALS 1 TAB TABLET GT SCH (08:37)
[2020-04-26] MEDS: ASCORBIC ACID 500 MG TABLET GT SCH (08:37)
[2020-04-26] MEDS: HEPARIN SODIUM, PORCINE 5000 UNITS/1 ML VIAL SQ SCH ×2 (08:37→21:29)
[2020-04-26] MEDS: METOPROLOL TARTRATE 25 MG TABLET GT SCH ×2 (08:37→21:28)
[2020-04-26] MEDS: INSULIN DETEMIR 100 UNIT/ML CARTRIDGE SQ SCH ×2 (08:38→21:44)
[2020-04-26] MEDS: Z GUARD REMEDY 4 OZ OINT TP SCH ×2 (08:38→21:29)
[2020-04-26] MEDS: VITAMINS A AND D 56.7 GM TUBE TP SCH ×2 (08:39→21:29)
[2020-04-26 14:16] VITALS: BP 118/63
[2020-04-26 20:22] VITALS: BP 138/72
[2020-04-26] MEDS: SENNOSIDES 8.6 MG TABLET GT SCH (21:29)
[2020-04-27] VITALS: BP 129/74
[2020-04-27] MEDS: ACIDOPHILUS/BULGARICUS 1 EACH TAB.CHEW GT SCH ×3 (00:29→23:38)
[2020-04-27] MEDS: IPRATROPIUM NEB FS 0.5 MG/2.5 ML AMPUL.NEB NEB SCH ×4 (01:57→19:52)
[2020-04-27] MEDS: ALBUTEROL FS 2.5 MG/0.5 ML VIAL.NEB NEB SCH ×4 (01:57→19:52)
[2020-04-27] MEDS: POLYVINYL ALCOHOL 15 ML BOTTLE OP SCH ×4 (05:43→23:37)
[2020-04-27] MEDS: BIOTENE MOISTURIZING MM SCH ×4 (05:43→23:37)
[2020-04-27] MEDS: BLOOD SUGAR DIAGNOSTIC 1 EACH STRIP IN SCH ×4 (05:43→23:37)
[2020-04-27] MEDS: METOCLOPRAMIDE HCL 10 MG TABLET GT SCH ×4 (05:43→23:37)
[2020-04-27] MEDS: INSULIN REGULAR, HUMAN 100 UNIT/ML 3 ML VIAL SQ SCH ×4 (05:44→23:38)
[2020-04-27] MEDS: INSULIN REGULAR, HUMAN 100 UNIT/ML 3 ML VIAL SQ PRN ×4 (05:45→23:39)
[2020-04-27 08:30] VITALS: BP 119/71
[2020-04-27] MEDS: DOCUSATE SODIUM LIQ 100 MG/10 ML UDC GT SCH (08:46)
[2020-04-27] MEDS: METOPROLOL TARTRATE 25 MG TABLET GT SCH ×2 (08:46→21:00)
[2020-04-27] MEDS: FERROUS SULFATE - FOR SA ONLY 330 MG/7.5 ML UDC GT SCH (08:46)
[2020-04-27] MEDS: ASCORBIC ACID 500 MG TABLET GT SCH (08:46)
[2020-04-27] MEDS: CALCITONIN,SALMON,SYNTHETIC 3.7 ML SPRAY.PUMP NS SCH ×2 (08:46→09:00)
[2020-04-27] MEDS: MULTIVIT W/MINERALS 1 TAB TABLET GT SCH (08:46)
[2020-04-27] MEDS: HEPARIN SODIUM, PORCINE 5000 UNITS/1 ML VIAL SQ SCH ×2 (08:49→21:27)
[2020-04-27] MEDS: INSULIN DETEMIR 100 UNIT/ML CARTRIDGE SQ SCH ×2 (08:50→21:56)
[2020-04-27] MEDS: VITAMINS A AND D 56.7 GM TUBE TP SCH ×2 (08:51→21:27)
[2020-04-27] MEDS: Z GUARD REMEDY 4 OZ OINT TP SCH ×2 (08:51→21:27)
[2020-04-27] MEDS: HYDROGEN PEROXIDE 480 ML BOTTLE TP SCH ×2 (09:30→19:52)
--- NOTE | 2020-04-27 11:09 | NUR ---
Intake Paperwork: To observe visitation restrictions set in place by [facility] due to Coronavirus Pandemic, this SW called the patients Daughter, Jennifer Hernandez [phone] on 04/26/2020 and reviewed the intake paperwork: (Patient Right's Acknowledgement, Documentation of Preferred Intensity of Care, Conditions of Admission, and Voluntary Prior Express Consent form, and An Important Message from Medicare). Jennifer expressed understanding and was agreeable reviewing intake paperwork with SW over the phone and providing a wet signature when paperwork arrives via mail. This SW addressed all of the familys questions. Jennifer stated that the intensity of care provided to the pt. should be Maximum Treatment (No Blood transfusion, No Transfer to Acute & No Dialysis) and No CPR. SW mailed intake paperwork to: Jennifer Hernandez [[address] [place] [id number]] along with a copy of the Bill of Rights, for Jennifer to read over and sign. SW provided Jennifer with a pre-paid envelope. SW will wait for paperwork to be completed and mailed back by Jennifer. SW will follow up as needed to assist the family with completing intake paperwork. SW notified charge nurse Veena of updated code status. Please see resident's previous account [id number] for all assessments and nursing notes.
--- NOTE | 2020-04-27 12:10 | NUR ---
Family Invite to IDT: YNES emailed the pt.'s daughter, Jennifer London [phone] and invited them to participate in 04/29/2020 12:30 pm IDT meeting. YNES will follow up as needed.
[2020-04-27] MEDS: NEPRO 1,000 ML BOTTLE GT PRN (16:39)
[2020-04-27 20:20] VITALS: BP 94/60
[2020-04-27] MEDS: SENNOSIDES 8.6 MG TABLET GT SCH (21:27)
[2020-04-28] VITALS: BP 99/60
[2020-04-28] MEDS: ALBUTEROL FS 2.5 MG/0.5 ML VIAL.NEB NEB SCH ×4 (01:03→19:52)
[2020-04-28] MEDS: IPRATROPIUM NEB FS 0.5 MG/2.5 ML AMPUL.NEB NEB SCH ×4 (01:03→19:52)
[2020-04-28] MEDS: POLYVINYL ALCOHOL 15 ML BOTTLE OP SCH ×3 (05:47→18:13)
[2020-04-28] MEDS: BLOOD SUGAR DIAGNOSTIC 1 EACH STRIP IN SCH ×3 (05:47→18:13)
[2020-04-28] MEDS: METOCLOPRAMIDE HCL 10 MG TABLET GT SCH ×3 (05:47→18:13)
[2020-04-28] MEDS: BIOTENE MOISTURIZING MM SCH ×3 (05:47→18:13)
[2020-04-28] MEDS: INSULIN REGULAR, HUMAN 100 UNIT/ML 3 ML VIAL SQ SCH ×3 (05:49→18:14)
[2020-04-28] MEDS: INSULIN REGULAR, HUMAN 100 UNIT/ML 3 ML VIAL SQ PRN ×3 (05:51→18:14)
[2020-04-28 07:34] VITALS: BP 142/77
[2020-04-28] MEDS: ASCORBIC ACID 500 MG TABLET GT SCH (09:29)
[2020-04-28] MEDS: MULTIVIT W/MINERALS 1 TAB TABLET GT SCH (09:29)
[2020-04-28] MEDS: METOPROLOL TARTRATE 25 MG TABLET GT SCH ×2 (09:29→20:21)
[2020-04-28] MEDS: DOCUSATE SODIUM LIQ 100 MG/10 ML UDC GT SCH (09:29)
[2020-04-28] MEDS: FERROUS SULFATE - FOR SA ONLY 330 MG/7.5 ML UDC GT SCH (09:29)
[2020-04-28] MEDS: HEPARIN SODIUM, PORCINE 5000 UNITS/1 ML VIAL SQ SCH ×2 (09:30→20:22)
[2020-04-28] MEDS: INSULIN DETEMIR 100 UNIT/ML CARTRIDGE SQ SCH ×2 (09:30→21:02)
[2020-04-28] MEDS: Z GUARD REMEDY 4 OZ OINT TP SCH ×2 (09:30→20:22)
[2020-04-28] MEDS: VITAMINS A AND D 56.7 GM TUBE TP SCH ×2 (09:30→20:23)
[2020-04-28] MEDS: HYDROGEN PEROXIDE 480 ML BOTTLE TP SCH ×2 (09:36→19:52)
[2020-04-28 12:00] VITALS: BP 106/61
[2020-04-28] MEDS: ACIDOPHILUS/BULGARICUS 1 EACH TAB.CHEW GT SCH (12:20)
[2020-04-28 14:00] VITALS: BP 103/75
[2020-04-28 18:54] VITALS: BP 100/52
--- NOTE | 2020-04-28 19:30 | NUR ---
Patient seen by AVERY Mata no new orders.
[2020-04-28 20:23] VITALS: BP 131/71
[2020-04-28] MEDS: SENNOSIDES 8.6 MG TABLET GT SCH (21:02)
[2020-04-29] VITALS (7 sets, daily range): BP systolic 97–136; BP diastolic 48–75
[2020-04-29] MEDS: INSULIN REGULAR, HUMAN 100 UNIT/ML 3 ML VIAL SQ SCH ×5 (00:01→23:47)
[2020-04-29] MEDS: ACIDOPHILUS/BULGARICUS 1 EACH TAB.CHEW GT SCH ×3 (00:01→23:48)
[2020-04-29] MEDS: INSULIN REGULAR, HUMAN 100 UNIT/ML 3 ML VIAL SQ PRN ×5 (00:03→23:49)
[2020-04-29] MEDS: IPRATROPIUM NEB FS 0.5 MG/2.5 ML AMPUL.NEB NEB SCH ×4 (01:49→20:25)
[2020-04-29] MEDS: ALBUTEROL FS 2.5 MG/0.5 ML VIAL.NEB NEB SCH ×4 (01:49→20:25)
[2020-04-29] MEDS: BLOOD SUGAR DIAGNOSTIC 1 EACH STRIP IN SCH ×5 (05:13→23:46)
[2020-04-29] MEDS: POLYVINYL ALCOHOL 15 ML BOTTLE OP SCH ×5 (05:13→23:46)
[2020-04-29] MEDS: METOCLOPRAMIDE HCL 10 MG TABLET GT SCH ×5 (05:13→23:46)
[2020-04-29] MEDS: BIOTENE MOISTURIZING MM SCH ×5 (05:13→23:46)
[2020-04-29] MEDS: NEPRO 1,000 ML BOTTLE GT PRN ×2 (05:14→19:03)
[2020-04-29] MEDS: DOCUSATE SODIUM LIQ 100 MG/10 ML UDC GT SCH (08:28)
[2020-04-29] MEDS: ASCORBIC ACID 500 MG TABLET GT SCH (08:29)
[2020-04-29] MEDS: METOPROLOL TARTRATE 25 MG TABLET GT SCH ×2 (08:29→20:05)
[2020-04-29] MEDS: FERROUS SULFATE - FOR SA ONLY 330 MG/7.5 ML UDC GT SCH (08:29)
[2020-04-29] MEDS: CALCITONIN,SALMON,SYNTHETIC 3.7 ML SPRAY.PUMP NS SCH ×2 (08:29→08:47)
[2020-04-29] MEDS: MULTIVIT W/MINERALS 1 TAB TABLET GT SCH (08:29)
[2020-04-29] MEDS: HEPARIN SODIUM, PORCINE 5000 UNITS/1 ML VIAL SQ SCH ×2 (08:31→20:09)
[2020-04-29] MEDS: Z GUARD REMEDY 4 OZ OINT TP SCH ×2 (08:51→20:11)
[2020-04-29] MEDS: VITAMINS A AND D 56.7 GM TUBE TP SCH ×2 (08:51→20:11)
[2020-04-29] MEDS: INSULIN DETEMIR 100 UNIT/ML CARTRIDGE SQ SCH ×2 (08:51→20:11)
[2020-04-29] MEDS: HYDROGEN PEROXIDE 480 ML BOTTLE TP SCH ×2 (09:00→20:25)
--- NOTE | 2020-04-29 14:43 | NUR ---
Facility Update: YNES informed pt.s familyJennifer [phone] via [email or web address] that no [facility] residents or employees tested positive for COVID-19 this week. YNES informed family that as recommended by [facility], all Sub-Acute residents & staff will continue receiving response testing. [facility] continues to follow infection control protocols and screen our residents and staff daily for symptoms.
[2020-04-29 15:25] LABS: BASOPHILS # (AUTO) 0.1 /CMM (0.0-0.2); BASOPHILS % (AUTO) 0.6 % (0.0-2.0); EOSINOPHILS % (AUTO) 3.2 % (0.0-6.0); HEMATOCRIT 26 % (33-45); HEMOGLOBIN 8.1 g/dL (11.5-14.8); LYMPHOCYTES # (AUTO) 0.9 /CMM (0.8-4.8); LYMPHOCYTES % (AUTO) 10.1 % (20.0-44.0); MEAN CORPUSCULAR HGB CONC 31 g/dl (31.0-36.0); MEAN CORPUSCULAR VOLUME 89 fL (82-100); MONOCYTES # (AUTO) 0.5 /CMM (0.1-1.30); MONOCYTES % (AUTO) 5.9 % (2.0-12.0); NEUTROPHILS # (AUTO) 7.3 /CMM (1.8-8.9); NEUTROPHILS % (AUTO) 80.2 % (43.0-81.0); PLATELET COUNT (AUTO) 238 /CMM (150-450)
--- NOTE | 2020-04-29 16:06 | NUR ---
INTERDISCIPLINARY PLAN OF CARE CONFERENCE took place today. The patients responsible green party/ daughter, Jennifer Hernandez [phone] did not participate via phone conference. Dr. Agarwal and Interdisciplinary team discussed the plan of care in detail. Current orders as well as treatments and medications were reviewed. Please see other disciplines IDT notes for further details.
[2020-04-29 16:29] LABS: CALCIUM, SERUM 12.8 mg/dL (8.5-10.1); CARBON DIOXIDE 30 mmol/L (21-32); CHLORIDE 97 mmol/L (98-107); CREATININE 4.5 mg/dL (0.6-1.3); GLUCOSE 272 mg/dL (74-106); POTASSIUM 4.2 mmol/L (3.5-5.1); SODIUM SERUM 136 mmol/L (136-145)
[2020-04-29 16:56] LABS: EOSINOPHILS % (MANUAL) 8 % (0-4); LYMPHOCYTES % (MANUAL) 16 % (16-48); MONOCYTES % (MANUAL) 6 % (0-11.0); NEUTROPHILS % (MANUAL) 70 (42-76)
[2020-04-29 17:42] LABS: UREA NITROGEN, BLOOD 134 mg/dL (7-18)
[2020-04-29] MEDS ORDERED: MINERAL OIL MC PRN (20:00)
[2020-04-29] MEDS: SENNOSIDES 8.6 MG TABLET GT SCH (21:09)
[2020-04-30] VITALS (7 sets, daily range): BP systolic 82–116; BP diastolic 52–58
[2020-04-30] MEDS: ALBUTEROL FS 2.5 MG/0.5 ML VIAL.NEB NEB SCH ×4 (02:46→19:18)
[2020-04-30] MEDS: IPRATROPIUM NEB FS 0.5 MG/2.5 ML AMPUL.NEB NEB SCH ×4 (02:46→19:18)
[2020-04-30] MEDS: BLOOD SUGAR DIAGNOSTIC 1 EACH STRIP IN SCH ×3 (05:00→17:40)
[2020-04-30] MEDS: POLYVINYL ALCOHOL 15 ML BOTTLE OP SCH ×3 (05:00→17:40)
[2020-04-30] MEDS: METOCLOPRAMIDE HCL 10 MG TABLET GT SCH ×3 (05:00→17:40)
[2020-04-30] MEDS: BIOTENE MOISTURIZING MM SCH ×3 (05:00→17:40)
[2020-04-30] MEDS: INSULIN REGULAR, HUMAN 100 UNIT/ML 3 ML VIAL SQ SCH ×3 (05:01→17:41)
[2020-04-30] MEDS: INSULIN REGULAR, HUMAN 100 UNIT/ML 3 ML VIAL SQ PRN ×3 (05:03→17:43)
--- NOTE | 2020-04-30 06:25 | NUR ---
PATIENT RECEIVED ON TRACH TO VENT WITH SETTINGS OF AC 15, 450 Vt, 30%, +5. SUCTIONED FOR MINIMAL, THICK, WHITE SECRETIONS. GIVEN IN-LINE TREATMENTS WITH NO ADVERSE REACTIONS. AMBU BAG AT BEDSIDE. VENT ALARM AUDIBLE AND VISIBLE. VENT PLUGGED INTO RED OUTLET. Addendum: 04/30/20 at 0626 by CAMMY MCELROY RT Amended: Links added.
[2020-04-30] MEDS: DOCUSATE SODIUM LIQ 100 MG/10 ML UDC GT SCH (08:31)
[2020-04-30] MEDS: FERROUS SULFATE - FOR SA ONLY 330 MG/7.5 ML UDC GT SCH (08:33)
[2020-04-30] MEDS: METOPROLOL TARTRATE 25 MG TABLET GT SCH ×2 (08:35→20:30)
[2020-04-30] MEDS: MULTIVIT W/MINERALS 1 TAB TABLET GT SCH (08:35)
[2020-04-30] MEDS: ASCORBIC ACID 500 MG TABLET GT SCH (08:35)
[2020-04-30] MEDS: HEPARIN SODIUM, PORCINE 5000 UNITS/1 ML VIAL SQ SCH ×2 (08:39→20:30)
[2020-04-30] MEDS: Z GUARD REMEDY 4 OZ OINT TP SCH ×2 (08:40→20:31)
[2020-04-30] MEDS: VITAMINS A AND D 56.7 GM TUBE TP SCH ×2 (08:40→20:31)
[2020-04-30] MEDS: INSULIN DETEMIR 100 UNIT/ML CARTRIDGE SQ SCH ×2 (08:40→20:31)
[2020-04-30] MEDS: HYDROGEN PEROXIDE 480 ML BOTTLE TP SCH ×2 (09:13→19:18)
[2020-04-30] MEDS: ACIDOPHILUS/BULGARICUS 1 EACH TAB.CHEW GT SCH (12:46)
[2020-04-30] MEDS: MAGNESIUM HYDROXIDE 30 ML UDC GT PRN (20:00)
[2020-04-30] MEDS: SENNOSIDES 8.6 MG TABLET GT SCH (21:02)
[2020-05-01] VITALS (7 sets, daily range): BP systolic 103–124; BP diastolic 49–74
[2020-05-01] MEDS: BIOTENE MOISTURIZING MM SCH ×5 (00:02→23:18)
[2020-05-01] MEDS: METOCLOPRAMIDE HCL 10 MG TABLET GT SCH ×5 (00:02→23:18)
[2020-05-01] MEDS: BLOOD SUGAR DIAGNOSTIC 1 EACH STRIP IN SCH ×5 (00:02→23:18)
[2020-05-01] MEDS: POLYVINYL ALCOHOL 15 ML BOTTLE OP SCH ×5 (00:02→23:18)
[2020-05-01] MEDS: INSULIN REGULAR, HUMAN 100 UNIT/ML 3 ML VIAL SQ SCH ×5 (00:03→23:18)
[2020-05-01] MEDS: ACIDOPHILUS/BULGARICUS 1 EACH TAB.CHEW GT SCH ×3 (00:04→23:20)
[2020-05-01] MEDS: INSULIN REGULAR, HUMAN 100 UNIT/ML 3 ML VIAL SQ PRN ×5 (00:05→23:19)
[2020-05-01] MEDS: NEPRO 1,000 ML BOTTLE GT PRN (00:29)
[2020-05-01] MEDS: IPRATROPIUM NEB FS 0.5 MG/2.5 ML AMPUL.NEB NEB SCH ×4 (01:28→19:24)
[2020-05-01] MEDS: ALBUTEROL FS 2.5 MG/0.5 ML VIAL.NEB NEB SCH ×4 (01:28→19:24)
[2020-05-01] MEDS: BISACODYL SUPP (10 MG) 10 MG/SUPP.RECT SUPP.RECT RC PRN (06:33)
[2020-05-01] MEDS: HYDROGEN PEROXIDE 480 ML BOTTLE TP SCH ×2 (09:00→19:24)
[2020-05-01] MEDS: DOCUSATE SODIUM LIQ 100 MG/10 ML UDC GT SCH (09:23)
[2020-05-01] MEDS: METOPROLOL TARTRATE 25 MG TABLET GT SCH ×2 (09:23→20:25)
[2020-05-01] MEDS: MULTIVIT W/MINERALS 1 TAB TABLET GT SCH (09:23)
[2020-05-01] MEDS: FERROUS SULFATE - FOR SA ONLY 330 MG/7.5 ML UDC GT SCH (09:23)
[2020-05-01] MEDS: ASCORBIC ACID 500 MG TABLET GT SCH (09:23)
[2020-05-01] MEDS: CALCITONIN,SALMON,SYNTHETIC 3.7 ML SPRAY.PUMP NS SCH ×2 (09:24)
[2020-05-01] MEDS: HEPARIN SODIUM, PORCINE 5000 UNITS/1 ML VIAL SQ SCH ×2 (09:37→20:27)
[2020-05-01] MEDS: INSULIN DETEMIR 100 UNIT/ML CARTRIDGE SQ SCH ×2 (09:38→20:28)
[2020-05-01] MEDS: Z GUARD REMEDY 4 OZ OINT TP SCH ×2 (09:38→20:28)
[2020-05-01] MEDS: VITAMINS A AND D 56.7 GM TUBE TP SCH ×2 (09:38→20:28)
--- NOTE | 2020-05-01 13:21 | NUR ---
Monthly progress notes. Resident is passive.Does not respond to any kind of stimulation. She received daily visits for reality orientation, TV, music,hand massage,sensory stimulation.These activities will be provided as needed.
[2020-05-01] MEDS: SENNOSIDES 8.6 MG TABLET GT SCH (21:15)
[2020-05-02] VITALS (8 sets, daily range): BP systolic 95–131; BP diastolic 42–77
[2020-05-02] MEDS: ALBUTEROL FS 2.5 MG/0.5 ML VIAL.NEB NEB SCH ×4 (01:21→19:48)
[2020-05-02] MEDS: IPRATROPIUM NEB FS 0.5 MG/2.5 ML AMPUL.NEB NEB SCH ×4 (01:21→19:48)
[2020-05-02] MEDS: BIOTENE MOISTURIZING MM SCH ×4 (05:14→23:56)
[2020-05-02] MEDS: BLOOD SUGAR DIAGNOSTIC 1 EACH STRIP IN SCH ×4 (05:14→23:56)
[2020-05-02] MEDS: METOCLOPRAMIDE HCL 10 MG TABLET GT SCH ×4 (05:14→23:56)
[2020-05-02] MEDS: POLYVINYL ALCOHOL 15 ML BOTTLE OP SCH ×4 (05:20→23:56)
[2020-05-02] MEDS: INSULIN REGULAR, HUMAN 100 UNIT/ML 3 ML VIAL SQ SCH ×4 (05:21→23:57)
[2020-05-02] MEDS: INSULIN REGULAR, HUMAN 100 UNIT/ML 3 ML VIAL SQ PRN ×4 (05:23→23:58)
[2020-05-02] MEDS: DOCUSATE SODIUM LIQ 100 MG/10 ML UDC GT SCH (08:52)
[2020-05-02] MEDS: FERROUS SULFATE - FOR SA ONLY 330 MG/7.5 ML UDC GT SCH (08:53)
[2020-05-02] MEDS: METOPROLOL TARTRATE 25 MG TABLET GT SCH ×2 (08:53→21:43)
[2020-05-02] MEDS: ASCORBIC ACID 500 MG TABLET GT SCH (08:54)
[2020-05-02] MEDS: MULTIVIT W/MINERALS 1 TAB TABLET GT SCH (08:54)
[2020-05-02] MEDS: HEPARIN SODIUM, PORCINE 5000 UNITS/1 ML VIAL SQ SCH ×2 (08:55→21:44)
[2020-05-02] MEDS: INSULIN DETEMIR 100 UNIT/ML CARTRIDGE SQ SCH ×2 (08:56→21:44)
[2020-05-02] MEDS: VITAMINS A AND D 56.7 GM TUBE TP SCH ×2 (08:56→21:45)
[2020-05-02] MEDS: Z GUARD REMEDY 4 OZ OINT TP SCH ×2 (08:56→21:44)
[2020-05-02] MEDS: HYDROGEN PEROXIDE 480 ML BOTTLE TP SCH ×2 (09:45→19:48)
[2020-05-02] MEDS ORDERED: MINERAL OIL 133 ML (PYXIS) 1 EA ENEMA RC PRN (11:00)
[2020-05-02] MEDS: ACIDOPHILUS/BULGARICUS 1 EACH TAB.CHEW GT SCH ×2 (12:09→23:59)
[2020-05-02] MEDS: BISACODYL SUPP (10 MG) 10 MG/SUPP.RECT SUPP.RECT RC PRN (18:46)
[2020-05-02] MEDS: SENNOSIDES 8.6 MG TABLET GT SCH (21:45)
[2020-05-03] VITALS (7 sets, daily range): BP systolic 93–136; BP diastolic 50–67
[2020-05-03] MEDS: ALBUTEROL FS 2.5 MG/0.5 ML VIAL.NEB NEB SCH ×4 (01:39→19:22)
[2020-05-03] MEDS: IPRATROPIUM NEB FS 0.5 MG/2.5 ML AMPUL.NEB NEB SCH ×4 (01:39→19:22)
[2020-05-03] MEDS: BIOTENE MOISTURIZING MM SCH ×4 (06:23→23:22)
[2020-05-03] MEDS: BLOOD SUGAR DIAGNOSTIC 1 EACH STRIP IN SCH ×4 (06:23→23:22)
[2020-05-03] MEDS: METOCLOPRAMIDE HCL 10 MG TABLET GT SCH ×4 (06:23→23:22)
[2020-05-03] MEDS: POLYVINYL ALCOHOL 15 ML BOTTLE OP SCH ×4 (06:23→23:22)
[2020-05-03] MEDS: INSULIN REGULAR, HUMAN 100 UNIT/ML 3 ML VIAL SQ SCH ×4 (06:24→23:23)
[2020-05-03] MEDS: INSULIN REGULAR, HUMAN 100 UNIT/ML 3 ML VIAL SQ PRN ×4 (06:24→23:24)
[2020-05-03] MEDS: METOPROLOL TARTRATE 25 MG TABLET GT SCH ×2 (09:00→21:09)
[2020-05-03] MEDS: HYDROGEN PEROXIDE 480 ML BOTTLE TP SCH ×2 (09:00→19:22)
[2020-05-03] MEDS: DOCUSATE SODIUM LIQ 100 MG/10 ML UDC GT SCH (09:31)
[2020-05-03] MEDS: FERROUS SULFATE - FOR SA ONLY 330 MG/7.5 ML UDC GT SCH (09:31)
[2020-05-03] MEDS: MULTIVIT W/MINERALS 1 TAB TABLET GT SCH (09:32)
[2020-05-03] MEDS: CALCITONIN,SALMON,SYNTHETIC 3.7 ML SPRAY.PUMP NS SCH ×2 (09:32)
[2020-05-03] MEDS: ASCORBIC ACID 500 MG TABLET GT SCH (09:32)
[2020-05-03] MEDS: VITAMINS A AND D 56.7 GM TUBE TP SCH ×2 (09:33→21:09)
[2020-05-03] MEDS: INSULIN DETEMIR 100 UNIT/ML CARTRIDGE SQ SCH ×2 (09:33→21:35)
[2020-05-03] MEDS: Z GUARD REMEDY 4 OZ OINT TP SCH ×2 (09:33→21:09)
[2020-05-03] MEDS: HEPARIN SODIUM, PORCINE 5000 UNITS/1 ML VIAL SQ SCH ×2 (09:33→21:09)
[2020-05-03] MEDS: ACIDOPHILUS/BULGARICUS 1 EACH TAB.CHEW GT SCH ×2 (12:02→23:34)
[2020-05-03] MEDS: SENNOSIDES 8.6 MG TABLET GT SCH (21:09)
[2020-05-04 00:51] VITALS: BP 126/66
[2020-05-04] MEDS: IPRATROPIUM NEB FS 0.5 MG/2.5 ML AMPUL.NEB NEB SCH ×4 (01:22→19:17)
[2020-05-04] MEDS: ALBUTEROL FS 2.5 MG/0.5 ML VIAL.NEB NEB SCH ×4 (01:22→19:17)
[2020-05-04] MEDS: POLYVINYL ALCOHOL 15 ML BOTTLE OP SCH ×3 (05:47→17:13)
[2020-05-04] MEDS: METOCLOPRAMIDE HCL 10 MG TABLET GT SCH ×3 (05:47→17:12)
[2020-05-04] MEDS: BLOOD SUGAR DIAGNOSTIC 1 EACH STRIP IN SCH ×3 (05:47→17:12)
[2020-05-04] MEDS: BIOTENE MOISTURIZING MM SCH ×3 (05:47→17:13)
[2020-05-04] MEDS: INSULIN REGULAR, HUMAN 100 UNIT/ML 3 ML VIAL SQ SCH ×3 (05:48→17:13)
[2020-05-04] MEDS: INSULIN REGULAR, HUMAN 100 UNIT/ML 3 ML VIAL SQ PRN ×3 (05:49→17:15)
[2020-05-04 06:02] VITALS: BP 120/62
[2020-05-04 07:41] VITALS: BP 135/92
[2020-05-04] MEDS: FERROUS SULFATE - FOR SA ONLY 330 MG/7.5 ML UDC GT SCH (09:00)
[2020-05-04] MEDS: METOPROLOL TARTRATE 25 MG TABLET GT SCH ×2 (09:00→21:42)
[2020-05-04] MEDS: Z GUARD REMEDY 4 OZ OINT TP SCH ×2 (09:00→21:44)
[2020-05-04] MEDS: DOCUSATE SODIUM LIQ 100 MG/10 ML UDC GT SCH (09:00)
[2020-05-04] MEDS: MULTIVIT W/MINERALS 1 TAB TABLET GT SCH (09:00)
[2020-05-04] MEDS: VITAMINS A AND D 56.7 GM TUBE TP SCH ×2 (09:00→21:44)
[2020-05-04] MEDS: HEPARIN SODIUM, PORCINE 5000 UNITS/1 ML VIAL SQ SCH ×2 (09:00→21:43)
[2020-05-04] MEDS: ASCORBIC ACID 500 MG TABLET GT SCH (09:00)
[2020-05-04] MEDS: INSULIN DETEMIR 100 UNIT/ML CARTRIDGE SQ SCH ×2 (09:00→21:44)
[2020-05-04 12:00] VITALS: BP 135/80
[2020-05-04] MEDS: ACIDOPHILUS/BULGARICUS 1 EACH TAB.CHEW GT SCH (13:06)
[2020-05-04] MEDS: NEPRO 1,000 ML BOTTLE GT PRN (13:07)
[2020-05-04 18:31] VITALS: BP 128/65
[2020-05-04] MEDS: MAGNESIUM HYDROXIDE 30 ML UDC GT PRN (18:58)
[2020-05-04] MEDS: HYDROGEN PEROXIDE 480 ML BOTTLE TP SCH (19:17)
[2020-05-04 20:32] VITALS: BP 106/64
[2020-05-04] MEDS: SENNOSIDES 8.6 MG TABLET GT SCH (21:44)
[2020-05-05] VITALS (7 sets, daily range): BP systolic 104–128; BP diastolic 52–70
[2020-05-05] MEDS: BIOTENE MOISTURIZING MM SCH ×5 (00:31→23:01)
[2020-05-05] MEDS: BLOOD SUGAR DIAGNOSTIC 1 EACH STRIP IN SCH ×5 (00:31→23:12)
[2020-05-05] MEDS: METOCLOPRAMIDE HCL 10 MG TABLET GT SCH ×5 (00:31→23:01)
[2020-05-05] MEDS: POLYVINYL ALCOHOL 15 ML BOTTLE OP SCH ×5 (00:32→23:13)
[2020-05-05] MEDS: INSULIN REGULAR, HUMAN 100 UNIT/ML 3 ML VIAL SQ SCH ×5 (00:32→23:14)
[2020-05-05] MEDS: ACIDOPHILUS/BULGARICUS 1 EACH TAB.CHEW GT SCH ×3 (00:33→23:30)
[2020-05-05] MEDS: INSULIN REGULAR, HUMAN 100 UNIT/ML 3 ML VIAL SQ PRN ×5 (00:33→23:15)
[2020-05-05] MEDS: ALBUTEROL FS 2.5 MG/0.5 ML VIAL.NEB NEB SCH ×4 (00:41→20:09)
[2020-05-05] MEDS: IPRATROPIUM NEB FS 0.5 MG/2.5 ML AMPUL.NEB NEB SCH ×4 (00:41→20:09)
[2020-05-05] MEDS: DOCUSATE SODIUM LIQ 100 MG/10 ML UDC GT SCH (08:26)
[2020-05-05] MEDS: FERROUS SULFATE - FOR SA ONLY 330 MG/7.5 ML UDC GT SCH (08:26)
[2020-05-05] MEDS: CALCITONIN,SALMON,SYNTHETIC 3.7 ML SPRAY.PUMP NS SCH ×2 (08:27→09:00)
[2020-05-05] MEDS: MULTIVIT W/MINERALS 1 TAB TABLET GT SCH (08:27)
[2020-05-05] MEDS: ASCORBIC ACID 500 MG TABLET GT SCH (08:27)
[2020-05-05] MEDS: METOPROLOL TARTRATE 25 MG TABLET GT SCH ×2 (08:27→20:32)
[2020-05-05] MEDS: HEPARIN SODIUM, PORCINE 5000 UNITS/1 ML VIAL SQ SCH ×2 (08:28→20:33)
[2020-05-05] MEDS: INSULIN DETEMIR 100 UNIT/ML CARTRIDGE SQ SCH ×2 (08:31→21:14)
[2020-05-05] MEDS: HYDROGEN PEROXIDE 480 ML BOTTLE TP SCH ×2 (08:47→21:46)
[2020-05-05] MEDS: Z GUARD REMEDY 4 OZ OINT TP SCH ×2 (09:00→20:33)
[2020-05-05] MEDS: VITAMINS A AND D 56.7 GM TUBE TP SCH ×2 (09:00→20:33)
[2020-05-05] MEDS: NEPRO 1,000 ML BOTTLE GT PRN (17:23)
[2020-05-05] MEDS: SENNOSIDES 8.6 MG TABLET GT SCH (21:14)
[2020-05-06] VITALS (7 sets, daily range): BP systolic 93–138; BP diastolic 50–80
[2020-05-06] MEDS: IPRATROPIUM NEB FS 0.5 MG/2.5 ML AMPUL.NEB NEB SCH ×4 (01:20→19:04)
[2020-05-06] MEDS: ALBUTEROL FS 2.5 MG/0.5 ML VIAL.NEB NEB SCH ×4 (01:20→19:04)
[2020-05-06] MEDS: METOCLOPRAMIDE HCL 10 MG TABLET GT SCH ×4 (05:29→23:23)
[2020-05-06] MEDS: BLOOD SUGAR DIAGNOSTIC 1 EACH STRIP IN SCH ×4 (05:29→23:23)
[2020-05-06] MEDS: BIOTENE MOISTURIZING MM SCH ×4 (05:30→23:23)
[2020-05-06] MEDS: POLYVINYL ALCOHOL 15 ML BOTTLE OP SCH ×4 (05:30→23:23)
[2020-05-06] MEDS: INSULIN REGULAR, HUMAN 100 UNIT/ML 3 ML VIAL SQ SCH ×4 (05:58→23:23)
[2020-05-06] MEDS: INSULIN REGULAR, HUMAN 100 UNIT/ML 3 ML VIAL SQ PRN ×4 (05:59→23:24)
[2020-05-06] MEDS: HYDROGEN PEROXIDE 480 ML BOTTLE TP SCH ×2 (08:35→21:03)
[2020-05-06] MEDS: DOCUSATE SODIUM LIQ 100 MG/10 ML UDC GT SCH (08:45)
[2020-05-06] MEDS: HEPARIN SODIUM, PORCINE 5000 UNITS/1 ML VIAL SQ SCH (08:46)
[2020-05-06] MEDS: ASCORBIC ACID 500 MG TABLET GT SCH (08:46)
[2020-05-06] MEDS: FERROUS SULFATE - FOR SA ONLY 330 MG/7.5 ML UDC GT SCH (08:46)
[2020-05-06] MEDS: METOPROLOL TARTRATE 25 MG TABLET GT SCH ×2 (08:46→20:16)
[2020-05-06] MEDS: MULTIVIT W/MINERALS 1 TAB TABLET GT SCH (08:46)
[2020-05-06] MEDS: Z GUARD REMEDY 4 OZ OINT TP SCH ×2 (08:47→20:16)
[2020-05-06] MEDS: INSULIN DETEMIR 100 UNIT/ML CARTRIDGE SQ SCH ×2 (08:47→21:05)
[2020-05-06] MEDS: VITAMINS A AND D 56.7 GM TUBE TP SCH ×2 (08:47→20:16)
[2020-05-06 11:57] LABS: CARBON DIOXIDE 32 mmol/L (21-32); CHLORIDE 93 mmol/L (98-107); GLUCOSE 249 mg/dL (74-106); POTASSIUM 4.5 mmol/L (3.5-5.1); SODIUM SERUM 134 mmol/L (136-145)
[2020-05-06 12:19] LABS: UREA NITROGEN, BLOOD 168 mg/dL (7-18)
[2020-05-06] MEDS: ACIDOPHILUS/BULGARICUS 1 EACH TAB.CHEW GT SCH ×2 (12:53→23:33)
--- NOTE | 2020-05-06 13:50 | NUR ---
Spoke with DELIVERY MANAGER Elisabeth Bronson reported BMP result showing BUN 168 and Ca+ 14.0. According to DIRECTOR VACCINE Elisabeth she expects Calcium to be high and to continue with current treatment of Calcitonin. Informed DIRECTOR VACCINE that CBC is not available yet at this time. The lab reported a 6.8 Hgb earlier however because current level is down from the previous result of 8.1 (04/29/20), they redrawn the specimen, at this time. The first redraw clotted and awaiting for the 2nd redraw result. AVERY Barber said she is looking for stable Hbg, if stable will keep Heparin, but if low will dc Heparin. Awaiting for result and will relay result to DIRECTOR VACCINE.
[2020-05-06 14:06] LABS: BASOPHILS % (AUTO) 0.3 % (0.0-2.0); EOSINOPHILS % (AUTO) 2.9 % (0.0-6.0); HEMATOCRIT 22 % (33-45); LYMPHOCYTES # (AUTO) 1.2 /CMM (0.8-4.8); LYMPHOCYTES % (AUTO) 12.8 % (20.0-44.0); MEAN CORPUSCULAR HGB CONC 31 g/dl (31.0-36.0); MEAN CORPUSCULAR VOLUME 91 fL (82-100); MONOCYTES # (AUTO) 0.8 /CMM (0.1-1.30); MONOCYTES % (AUTO) 8.2 % (2.0-12.0); NEUTROPHILS # (AUTO) 7.3 /CMM (1.8-8.9); NEUTROPHILS % (AUTO) 75.8 % (43.0-81.0); PLATELET COUNT (AUTO) 204 /CMM (150-450); RED BLOOD CELL COUNT(AUTO) 2.37 MIL/uL (4.0-5.2); WHITE BLOOD COUNT (AUTO) 9.7 K/uL (4.3-11.0)
[2020-05-06 14:09] LABS: HEMOGLOBIN 6.7 g/dL (11.5-14.8)
--- NOTE | 2020-05-06 14:32 | NUR ---
Paged FOAM TANK LAMINATOR Elisabeth Bronson to relay Hbg result 6.7 awaiting for return call. Left a message to Dr. Patrick regarding CBC and BMP result with BUN 168 and Creat 5.0, and Hgb 6.7, waiting for orders. Left a message to patient's daughter Jennifer.
--- NOTE | 2020-05-06 15:03 | NUR ---
YNES called the pt's daughter, Jennifer [phone] to follow up on Jennifer's decision whether or not to place the pt. on comfort care. Jennifer expressed ambivalence about putting pt. on comfort care. YNES encouraged Jennifer to make a decision based on what the pt. would have wanted for her life. Jennifer stated it is a very difficult decision to make. YNES validated her situation and encouraged to collaborated with her brother to make the decision. YNES informed Jennifer SW will support any decision Jennifer makes. YNES informed Jennifer she can change preffered intensity of care options. Jennifer expressed understanding. Jennifer had questions regarding if pt. is in pain or suffering. YNES informed Jennifer that the attending physician can answer those questions for her as it is not within the YNES scope of practice. Jennifer is agreeable. Jennifer requested to Speak to Dr. Patrick about situation. Jennifer stated she is available any day except Saturday & Saturday. YNES texted Dr. Patrick to arrange meeting. YNES will follow up as needed.
[2020-05-06] MEDS: NEPRO 1,000 ML BOTTLE GT PRN (17:31)
[2020-05-06 17:56] LABS: NEUTROPHILS % (MANUAL) 75 (42-76)
[2020-05-06 17:57] LABS: EOSINOPHILS % (MANUAL) 3 % (0-4); LYMPHOCYTES % (MANUAL) 12 % (16-48); MONOCYTES % (MANUAL) 10 % (0-11.0)
--- NOTE | 2020-05-06 18:00 | NUR ---
SOLAR POOL HEATING INSTALLER Elisabeth Bronson came to the nursing station and aware of Hbg result 6.7 she said she dc heparin order.
--- NOTE | 2020-05-06 19:10 | NUR ---
BEEF GRADER Maria Fernanda Mata notified of CBC (Hbg 6.7) and BMP (BUN 168, Creat 5.0) result, she said to refer it to Dr. Dixon. Referred BUN 168, creatinine 5.0 and Hbg 6. 7 to MD Dixon, He said he will see patient in AM.
--- NOTE | 2020-05-06 20:00 | NUR ---
Patient seen by AVERY Mata no new orders.
[2020-05-06] MEDS: SENNOSIDES 8.6 MG TABLET GT SCH (21:05)
[2020-05-07] VITALS (8 sets, daily range): BP systolic 90–154; BP diastolic 43–72
[2020-05-07] MEDS: ALBUTEROL FS 2.5 MG/0.5 ML VIAL.NEB NEB SCH ×4 (02:21→19:33)
[2020-05-07] MEDS: IPRATROPIUM NEB FS 0.5 MG/2.5 ML AMPUL.NEB NEB SCH ×4 (02:21→19:33)
[2020-05-07] MEDS: POLYVINYL ALCOHOL 15 ML BOTTLE OP SCH ×4 (05:16→23:20)
[2020-05-07] MEDS: INSULIN REGULAR, HUMAN 100 UNIT/ML 3 ML VIAL SQ SCH ×4 (05:16→23:20)
[2020-05-07] MEDS: METOCLOPRAMIDE HCL 10 MG TABLET GT SCH ×4 (05:16→23:19)
[2020-05-07] MEDS: BIOTENE MOISTURIZING MM SCH ×4 (05:16→23:20)
[2020-05-07] MEDS: BLOOD SUGAR DIAGNOSTIC 1 EACH STRIP IN SCH ×4 (05:16→23:19)
[2020-05-07] MEDS: INSULIN REGULAR, HUMAN 100 UNIT/ML 3 ML VIAL SQ PRN ×4 (05:18→23:21)
[2020-05-07 07:34] LABS: HEMOGLOBIN 7.1 g/dL (11.5-14.8)
[2020-05-07] MEDS: HYDROGEN PEROXIDE 480 ML BOTTLE TP SCH ×2 (08:36→19:33)
[2020-05-07] MEDS: DOCUSATE SODIUM LIQ 100 MG/10 ML UDC GT SCH (08:43)
[2020-05-07] MEDS: FERROUS SULFATE - FOR SA ONLY 330 MG/7.5 ML UDC GT SCH (08:43)
[2020-05-07] MEDS: ASCORBIC ACID 500 MG TABLET GT SCH (08:44)
[2020-05-07] MEDS: MULTIVIT W/MINERALS 1 TAB TABLET GT SCH (08:44)
[2020-05-07] MEDS: METOPROLOL TARTRATE 25 MG TABLET GT SCH ×2 (08:44→21:57)
[2020-05-07] MEDS: Z GUARD REMEDY 4 OZ OINT TP SCH ×2 (08:45→21:05)
[2020-05-07] MEDS: CALCITONIN,SALMON,SYNTHETIC 3.7 ML SPRAY.PUMP NS SCH ×2 (08:45)
[2020-05-07] MEDS: VITAMINS A AND D 56.7 GM TUBE TP SCH ×2 (08:51→21:05)
[2020-05-07] MEDS: INSULIN DETEMIR 100 UNIT/ML CARTRIDGE SQ SCH ×2 (08:52→21:06)
[2020-05-07] MEDS: IV NS 0.9% 1,000 ML IV SCH (10:00)
--- NOTE | 2020-05-07 10:30 | NUR ---
Resident seen and examined by Dr. Dixon reviewed lab result with order for NS at 50cc/hr 4 L, Informed MD that current Hgb 7.1 (05/07/20). He said "the best way to manage elevated BUN, creatinine and Ca+ is through dialysis and without it, it is mismanaged". Resident's daughter Jennifer notified of latest Hbg result of 7.1 and IVF order from Dr. Dixon. She said that she wants to speak to Dr. Patirck and get more clarification regarding what are considered aggressive measure. She will have her brother participate. SSD to arrange a meeting/ telephone conference with family and MD Patrick.
[2020-05-07] MEDS: ACIDOPHILUS/BULGARICUS 1 EACH TAB.CHEW GT SCH ×2 (12:35→23:30)
[2020-05-07] MEDS ORDERED: IV D5/ 0.9% NACL 1,000 ML IV SCH (13:00)
--- NOTE | 2020-05-07 18:00 | NUR ---
Resident's daughter Jennifer returned the call. Notified patient's daughter of elevated BUN 168, Creat 5.0 and low Hgb 6.7, however based on PIC signed on 05/27/2019 she indicated no blood transfusion. When asked whether her brother has ever spoken with Dr. Patrick, Jennifer verbalized he has called but unable to get a hold of anybody. She said " I couldn't do it, I was having a hard time making the decision. Jennifer is referring to the decision of placing her mother on comfort measures. Jennifer said her brother is now back in [place] as well as her daughter who also left [place]. Jennifer said that she may have to wait until her daughter comes back or her mother just gives up. She said that she does not want to go beyond customary treatment, she wants no aggressive treatment but she is not sure whether blood transfusion is considered aggressive treatment. [facility] has spoken with Jennifer and will arrange a meeting/conversation with . Advised Jennifer to have her brother present during the meeting so they can ask specific questions to get clarification from Dr. Patrick. Addendum: 05/07/20 at 2 by LISA BRAGA RN DEYANIRA gerardo 05/06/20 [place]
[2020-05-07] MEDS ORDERED: DIATR MEGLU/DIATRIZOATE SODIUM 30 ML BOTTLE (GASTROGRAPHIN) ONE (18:07)
[2020-05-07] MEDS: SENNOSIDES 8.6 MG TABLET GT SCH (21:57)
[2020-05-08] VITALS (8 sets, daily range): BP systolic 94–107; BP diastolic 49–56
[2020-05-08] MEDS: ALBUTEROL FS 2.5 MG/0.5 ML VIAL.NEB NEB SCH ×4 (00:59→20:21)
[2020-05-08] MEDS: IPRATROPIUM NEB FS 0.5 MG/2.5 ML AMPUL.NEB NEB SCH ×4 (00:59→20:21)
[2020-05-08] MEDS: IV NS 0.9% 1,000 ML IV SCH (05:00)
[2020-05-08] MEDS: BLOOD SUGAR DIAGNOSTIC 1 EACH STRIP IN SCH ×4 (05:13→23:28)
[2020-05-08] MEDS: POLYVINYL ALCOHOL 15 ML BOTTLE OP SCH ×4 (05:13→23:28)
[2020-05-08] MEDS: METOCLOPRAMIDE HCL 10 MG TABLET GT SCH ×4 (05:13→23:28)
[2020-05-08] MEDS: BIOTENE MOISTURIZING MM SCH ×4 (05:13→23:28)
[2020-05-08] MEDS: INSULIN REGULAR, HUMAN 100 UNIT/ML 3 ML VIAL SQ SCH ×4 (05:14→23:29)
[2020-05-08] MEDS: NEPRO 1,000 ML BOTTLE GT PRN (05:14)
[2020-05-08] MEDS: INSULIN REGULAR, HUMAN 100 UNIT/ML 3 ML VIAL SQ PRN ×4 (05:14→23:30)
[2020-05-08] MEDS: MAGNESIUM HYDROXIDE 30 ML UDC GT PRN (05:15)
[2020-05-08] MEDS: BISACODYL SUPP (10 MG) 10 MG/SUPP.RECT SUPP.RECT RC PRN (06:26)
[2020-05-08] MEDS: DOCUSATE SODIUM LIQ 100 MG/10 ML UDC GT SCH (08:52)
[2020-05-08] MEDS: FERROUS SULFATE - FOR SA ONLY 330 MG/7.5 ML UDC GT SCH (08:52)
[2020-05-08] MEDS: MULTIVIT W/MINERALS 1 TAB TABLET GT SCH (08:53)
[2020-05-08] MEDS: ASCORBIC ACID 500 MG TABLET GT SCH (08:53)
[2020-05-08] MEDS: INSULIN DETEMIR 100 UNIT/ML CARTRIDGE SQ SCH ×2 (09:06→21:21)
[2020-05-08] MEDS: Z GUARD REMEDY 4 OZ OINT TP SCH ×2 (09:06→21:21)
[2020-05-08] MEDS: VITAMINS A AND D 56.7 GM TUBE TP SCH ×2 (09:06→21:21)
[2020-05-08] MEDS: HYDROGEN PEROXIDE 480 ML BOTTLE TP SCH ×2 (09:10→21:00)
[2020-05-08] MEDS: METOPROLOL TARTRATE 25 MG TABLET GT SCH ×2 (09:16→21:20)
--- NOTE | 2020-05-08 10:40 | NUR ---
Dr. Patrick came to do rounds, aware of current hgb 7.1 done 05/07. He mentioned that she will speak to the daughter regarding comfort measure treatment.
[2020-05-08] MEDS: ACIDOPHILUS/BULGARICUS 1 EACH TAB.CHEW GT SCH (12:42)
[2020-05-08] MEDS: SENNOSIDES 8.6 MG TABLET GT SCH (21:21)
[2020-05-09] VITALS (8 sets, daily range): BP systolic 91–120; BP diastolic 44–79
[2020-05-09] MEDS: IV NS 0.9% 1,000 ML IV SCH ×2 (00:02→21:00)
[2020-05-09] MEDS: ACIDOPHILUS/BULGARICUS 1 EACH TAB.CHEW GT SCH ×2 (00:30→12:08)
[2020-05-09] MEDS: ALBUTEROL FS 2.5 MG/0.5 ML VIAL.NEB NEB SCH ×4 (02:17→19:48)
[2020-05-09] MEDS: IPRATROPIUM NEB FS 0.5 MG/2.5 ML AMPUL.NEB NEB SCH ×4 (02:17→19:48)
[2020-05-09] MEDS: NEPRO 1,000 ML BOTTLE GT PRN (05:27)
[2020-05-09] MEDS: POLYVINYL ALCOHOL 15 ML BOTTLE OP SCH ×3 (05:56→18:14)
[2020-05-09] MEDS: BLOOD SUGAR DIAGNOSTIC 1 EACH STRIP IN SCH ×3 (05:56→18:14)
[2020-05-09] MEDS: METOCLOPRAMIDE HCL 10 MG TABLET GT SCH ×3 (05:56→18:14)
[2020-05-09] MEDS: BIOTENE MOISTURIZING MM SCH ×3 (05:56→18:14)
[2020-05-09] MEDS: INSULIN REGULAR, HUMAN 100 UNIT/ML 3 ML VIAL SQ SCH ×3 (05:56→18:15)
[2020-05-09] MEDS: INSULIN REGULAR, HUMAN 100 UNIT/ML 3 ML VIAL SQ PRN ×3 (05:58→18:16)
[2020-05-09] MEDS: HYDROGEN PEROXIDE 480 ML BOTTLE TP SCH ×2 (08:10→20:05)
[2020-05-09] MEDS: METOPROLOL TARTRATE 25 MG TABLET GT SCH ×2 (08:21→20:06)
[2020-05-09] MEDS: DOCUSATE SODIUM LIQ 100 MG/10 ML UDC GT SCH (08:21)
[2020-05-09] MEDS: FERROUS SULFATE - FOR SA ONLY 330 MG/7.5 ML UDC GT SCH (08:21)
[2020-05-09] MEDS: CALCITONIN,SALMON,SYNTHETIC 3.7 ML SPRAY.PUMP NS SCH (08:23)
[2020-05-09] MEDS: ASCORBIC ACID 500 MG TABLET GT SCH (08:23)
[2020-05-09] MEDS: MULTIVIT W/MINERALS 1 TAB TABLET GT SCH (08:23)
[2020-05-09] MEDS: INSULIN DETEMIR 100 UNIT/ML CARTRIDGE SQ SCH ×2 (08:26→20:08)
[2020-05-09] MEDS: VITAMINS A AND D 56.7 GM TUBE TP SCH ×2 (08:26→20:09)
[2020-05-09] MEDS: Z GUARD REMEDY 4 OZ OINT TP SCH ×2 (08:26→20:09)
[2020-05-09] MEDS: SENNOSIDES 8.6 MG TABLET GT SCH (21:07)
[2020-05-10] VITALS (9 sets, daily range): BP systolic 89–115; BP diastolic 20–76
[2020-05-10] MEDS: METOCLOPRAMIDE HCL 10 MG TABLET GT SCH ×5 (00:05→23:44)
[2020-05-10] MEDS: BLOOD SUGAR DIAGNOSTIC 1 EACH STRIP IN SCH ×5 (00:06→23:45)
[2020-05-10] MEDS: POLYVINYL ALCOHOL 15 ML BOTTLE OP SCH ×5 (00:06→23:45)
[2020-05-10] MEDS: BIOTENE MOISTURIZING MM SCH ×5 (00:06→23:45)
[2020-05-10] MEDS: INSULIN REGULAR, HUMAN 100 UNIT/ML 3 ML VIAL SQ SCH ×5 (00:09→23:46)
[2020-05-10] MEDS: INSULIN REGULAR, HUMAN 100 UNIT/ML 3 ML VIAL SQ PRN ×4 (00:11→23:47)
[2020-05-10] MEDS: ACIDOPHILUS/BULGARICUS 1 EACH TAB.CHEW GT SCH ×3 (00:30→23:46)
[2020-05-10] MEDS: ALBUTEROL FS 2.5 MG/0.5 ML VIAL.NEB NEB SCH ×4 (00:38→19:46)
[2020-05-10] MEDS: IPRATROPIUM NEB FS 0.5 MG/2.5 ML AMPUL.NEB NEB SCH ×4 (00:38→19:46)
[2020-05-10] MEDS: FERROUS SULFATE - FOR SA ONLY 330 MG/7.5 ML UDC GT SCH (08:47)
[2020-05-10] MEDS: DOCUSATE SODIUM LIQ 100 MG/10 ML UDC GT SCH (08:47)
[2020-05-10] MEDS: METOPROLOL TARTRATE 25 MG TABLET GT SCH ×2 (08:47→20:13)
[2020-05-10] MEDS: MULTIVIT W/MINERALS 1 TAB TABLET GT SCH (08:48)
[2020-05-10] MEDS: CALCITONIN,SALMON,SYNTHETIC 3.7 ML SPRAY.PUMP NS SCH (08:48)
[2020-05-10] MEDS: ASCORBIC ACID 500 MG TABLET GT SCH (08:48)
[2020-05-10] MEDS: INSULIN DETEMIR 100 UNIT/ML CARTRIDGE SQ SCH ×2 (08:48→20:17)
[2020-05-10] MEDS: VITAMINS A AND D 56.7 GM TUBE TP SCH ×2 (08:48→20:17)
[2020-05-10] MEDS: Z GUARD REMEDY 4 OZ OINT TP SCH ×2 (08:48→20:17)
[2020-05-10] MEDS: HYDROGEN PEROXIDE 480 ML BOTTLE TP SCH ×2 (09:17→19:46)
--- NOTE | 2020-05-10 12:06 | NUR ---
BS checked 126. [facility] R 12 units SQ held. No sliding scale coverage.
--- NOTE | 2020-05-10 18:10 | NUR ---
Informed Dr Patrick that pt's BP 82/[address] Patrick ordered to give NS bolus IV x 1L. Called pt's daughter, informed her of pt's hypotension and NS bolus order. Pt appears comfortable, no distress, does not appear to be in pain. T 96.0 F.
[2020-05-10] MEDS ORDERED: IV NS 0.9% 1,000 ML IV ONE (18:30)
--- NOTE | 2020-05-10 19:04 | NUR ---
Pt's BP 95/23 HR 69. Pt appears comfortable, no distress.
[2020-05-10] MEDS: SENNOSIDES 8.6 MG TABLET GT SCH (21:07)
[2020-05-11] VITALS (7 sets, daily range): BP systolic 95–135; BP diastolic 51–70
[2020-05-11] MEDS: IPRATROPIUM NEB FS 0.5 MG/2.5 ML AMPUL.NEB NEB SCH ×4 (02:21→20:14)
[2020-05-11] MEDS: ALBUTEROL FS 2.5 MG/0.5 ML VIAL.NEB NEB SCH ×4 (02:21→20:14)
[2020-05-11] MEDS: METOCLOPRAMIDE HCL 10 MG TABLET GT SCH ×4 (05:01→23:39)
[2020-05-11] MEDS: BIOTENE MOISTURIZING MM SCH ×4 (05:01→23:39)
[2020-05-11] MEDS: BLOOD SUGAR DIAGNOSTIC 1 EACH STRIP IN SCH ×4 (05:01→23:39)
[2020-05-11] MEDS: POLYVINYL ALCOHOL 15 ML BOTTLE OP SCH ×4 (05:01→23:39)
[2020-05-11] MEDS: INSULIN REGULAR, HUMAN 100 UNIT/ML 3 ML VIAL SQ SCH ×4 (05:03→23:41)
[2020-05-11] MEDS: INSULIN REGULAR, HUMAN 100 UNIT/ML 3 ML VIAL SQ PRN ×2 (05:05→23:40)
[2020-05-11] MEDS: HYDROGEN PEROXIDE 480 ML BOTTLE TP SCH ×2 (08:36→21:55)
[2020-05-11] MEDS: METOPROLOL TARTRATE 25 MG TABLET GT SCH ×2 (09:00→21:21)
[2020-05-11] MEDS: Z GUARD REMEDY 4 OZ OINT TP SCH ×4 (09:00→21:23)
[2020-05-11] MEDS: VITAMINS A AND D 56.7 GM TUBE TP SCH ×2 (09:00→21:23)
[2020-05-11] MEDS: MULTIVIT W/MINERALS 1 TAB TABLET GT SCH (09:00)
[2020-05-11] MEDS: FERROUS SULFATE - FOR SA ONLY 330 MG/7.5 ML UDC GT SCH (09:00)
[2020-05-11] MEDS: ASCORBIC ACID 500 MG TABLET GT SCH (09:00)
[2020-05-11] MEDS: INSULIN DETEMIR 100 UNIT/ML CARTRIDGE SQ SCH ×2 (09:00→21:23)
[2020-05-11] MEDS: CALCITONIN,SALMON,SYNTHETIC 3.7 ML SPRAY.PUMP NS SCH (09:00)
[2020-05-11] MEDS: DOCUSATE SODIUM LIQ 100 MG/10 ML UDC GT SCH (09:00)
[2020-05-11 11:16] LABS: BASOPHILS % (AUTO) 0.3 % (0.0-2.0); EOSINOPHILS % (AUTO) 2.3 % (0.0-6.0); HEMATOCRIT 22 % (33-45); LYMPHOCYTES # (AUTO) 1.1 /CMM (0.8-4.8); LYMPHOCYTES % (AUTO) 12.2 % (20.0-44.0); MEAN CORPUSCULAR HGB CONC 31 g/dl (31.0-36.0); MEAN CORPUSCULAR VOLUME 93 fL (82-100); MONOCYTES # (AUTO) 0.4 /CMM (0.1-1.30); MONOCYTES % (AUTO) 4.5 % (2.0-12.0); NEUTROPHILS # (AUTO) 7.6 /CMM (1.8-8.9); NEUTROPHILS % (AUTO) 80.7 % (43.0-81.0); PLATELET COUNT (AUTO) 187 /CMM (150-450); RED BLOOD CELL COUNT(AUTO) 2.36 MIL/uL (4.0-5.2); WHITE BLOOD COUNT (AUTO) 9.4 K/uL (4.3-11.0)
[2020-05-11 11:19] LABS: HEMOGLOBIN 6.7 g/dL (11.5-14.8)
[2020-05-11 12:22] LABS: EOSINOPHILS % (MANUAL) 2 % (0-4); LYMPHOCYTES % (MANUAL) 16 % (16-48); MONOCYTES % (MANUAL) 3 % (0-11.0); MYELOCYTES % 2 % (0-0); NEUTROPHILS % (MANUAL) 77 (42-76)
[2020-05-11] MEDS: ACIDOPHILUS/BULGARICUS 1 EACH TAB.CHEW GT SCH ×2 (13:17→23:41)
--- NOTE | 2020-05-11 13:46 | NUR ---
YNES received completed admission paperwork in the mail completed by the patients Daughter, Jennifer Hernandez [phone]. Per Jennifer pt.'s code status should be:No CPR., No Blood Transfusions, No Transfer to Acute Hospital and No Dialysis . YNES notified Charge Nurse and filed paperwork in pt.'s chart.
--- NOTE | 2020-05-11 16:35 | NUR ---
Meeting with pt.'s family, Jennifer [phone], her brother, Adeel [phone] Patrick to take place on 05/12/2020 12pm. SW will facilitate meeting.
--- NOTE | 2020-05-11 19:30 | NUR ---
Left a message to Dr. Patrick regarding Hbg result 6.7, latest PIC signed by daughter indicates no blood transfusion. Per SSD family and MD will have a meeting tomorrow, the daughter is not clear if she wants lab works for patient. Resident's daughter Jennifer made aware of HGB result today 6.7 and that CBC, CMP, Mg and Phos were ordered for tomorrow by valve lapper. Appreciated the information provided. She acknowledged she will have a phone conference with Dr. Patrick tomorrow and will ask clarification of information that she is not clear such as future lab draws.
[2020-05-11] MEDS: SENNOSIDES 8.6 MG TABLET GT SCH (21:23)
[2020-05-12] VITALS (8 sets, daily range): BP systolic 100–135; BP diastolic 47–67
[2020-05-12] MEDS: IPRATROPIUM NEB FS 0.5 MG/2.5 ML AMPUL.NEB NEB SCH ×4 (02:05→20:23)
[2020-05-12] MEDS: ALBUTEROL FS 2.5 MG/0.5 ML VIAL.NEB NEB SCH ×4 (02:05→20:24)
[2020-05-12] MEDS: POLYVINYL ALCOHOL 15 ML BOTTLE OP SCH ×4 (06:03→23:44)
[2020-05-12] MEDS: METOCLOPRAMIDE HCL 10 MG TABLET GT SCH ×4 (06:03→23:44)
[2020-05-12] MEDS: BLOOD SUGAR DIAGNOSTIC 1 EACH STRIP IN SCH ×4 (06:03→23:44)
[2020-05-12] MEDS: BIOTENE MOISTURIZING MM SCH ×4 (06:03→23:44)
[2020-05-12] MEDS: INSULIN REGULAR, HUMAN 100 UNIT/ML 3 ML VIAL SQ SCH ×4 (06:04→23:45)
[2020-05-12] MEDS: INSULIN REGULAR, HUMAN 100 UNIT/ML 3 ML VIAL SQ PRN ×4 (06:07→23:46)
[2020-05-12] MEDS: NEPRO 1,000 ML BOTTLE GT PRN (06:30)
[2020-05-12 06:38] LABS: BASOPHILS # (AUTO) 0.1 /CMM (0.0-0.2); BASOPHILS % (AUTO) 0.5 % (0.0-2.0); EOSINOPHILS % (AUTO) 1.7 % (0.0-6.0); HEMATOCRIT 26 % (33-45); HEMOGLOBIN 7.7 g/dL (11.5-14.8); LYMPHOCYTES # (AUTO) 1.5 /CMM (0.8-4.8); LYMPHOCYTES % (AUTO) 7.6 % (20.0-44.0); MEAN CORPUSCULAR HGB CONC 30 g/dl (31.0-36.0); MEAN CORPUSCULAR VOLUME 92 fL (82-100); MONOCYTES # (AUTO) 1.1 /CMM (0.1-1.30); MONOCYTES % (AUTO) 5.4 % (2.0-12.0); NEUTROPHILS # (AUTO) 16.7 /CMM (1.8-8.9); NEUTROPHILS % (AUTO) 84.8 % (43.0-81.0); PLATELET COUNT (AUTO) 251 /CMM (150-450); RED BLOOD CELL COUNT(AUTO) 2.77 MIL/uL (4.0-5.2); WHITE BLOOD COUNT (AUTO) 19.7 K/uL (4.3-11.0)
[2020-05-12 07:07] LABS: ALANINE AMINOTRANSFERASE 45 U/L (12-78); ALBUMIN 2.3 g/dL (3.4-5.0); ALKALINE PHOSPHATASE 157 U/L (46-116); ASPARTATE AMINOTRANSFERASE 37 U/L (15-37); BILIRUBIN,TOTAL 0.3 mg/dL (0.2-1.0); CALCIUM, SERUM 11.2 mg/dL (8.5-10.1); CARBON DIOXIDE 22 mmol/L (21-32); CHLORIDE 93 mmol/L (98-107); CREATININE 4.9 mg/dL (0.6-1.3); GLUCOSE 182 mg/dL (74-106); PHOSPHORUS 6.4 mg/dL (2.5-4.9); POTASSIUM 4.7 mmol/L (3.5-5.1); SODIUM SERUM 127 mmol/L (136-145); TOTAL PROTEIN, SERUM 8.1 g/dL (6.4-8.2)
[2020-05-12 07:32] LABS: UREA NITROGEN, BLOOD 174 mg/dL (7-18)
[2020-05-12 07:33] LABS: MAGNESIUM 5.3 mg/dL (1.8-2.4)
[2020-05-12] MEDS: HYDROGEN PEROXIDE 480 ML BOTTLE TP SCH ×2 (08:04→21:00)
--- NOTE | 2020-05-12 09:20 | NUR ---
Called [facility] and left message with answering service to inform Dr. Dixon regarding critical lab values BUN 174 and Mg 5.3 awaiting for call back and orders.
[2020-05-12] MEDS: MULTIVIT W/MINERALS 1 TAB TABLET GT SCH (09:34)
[2020-05-12] MEDS: FERROUS SULFATE - FOR SA ONLY 330 MG/7.5 ML UDC GT SCH (09:34)
[2020-05-12] MEDS: METOPROLOL TARTRATE 25 MG TABLET GT SCH ×2 (09:34→20:53)
[2020-05-12] MEDS: ASCORBIC ACID 500 MG TABLET GT SCH (09:34)
[2020-05-12] MEDS: DOCUSATE SODIUM LIQ 100 MG/10 ML UDC GT SCH (09:34)
[2020-05-12] MEDS: CALCITONIN,SALMON,SYNTHETIC 3.7 ML SPRAY.PUMP NS SCH (09:34)
[2020-05-12] MEDS: INSULIN DETEMIR 100 UNIT/ML CARTRIDGE SQ SCH ×2 (09:36→20:54)
[2020-05-12] MEDS: Z GUARD REMEDY 4 OZ OINT TP SCH ×4 (09:36→20:54)
[2020-05-12] MEDS: VITAMINS A AND D 56.7 GM TUBE TP SCH ×2 (09:36→20:54)
--- NOTE | 2020-05-12 10:07 | NUR ---
Informed Dr. Patrick regarding critical lab values BUN 174 , Mg 5.3, no new orders.
[2020-05-12 11:52] LABS: BAND % (MANUAL) 2 % (0.0-5.0); EOSINOPHILS % (MANUAL) 1 % (0-4); LYMPHOCYTES % (MANUAL) 8 % (16-48); MONOCYTES % (MANUAL) 1 % (0-11.0); NEUTROPHILS % (MANUAL) 88 (42-76)
[2020-05-12] MEDS: ACIDOPHILUS/BULGARICUS 1 EACH TAB.CHEW GT SCH ×2 (13:00→23:45)
--- NOTE | 2020-05-12 13:30 | NUR ---
Bioethics Meeting was held today at noon via phone conference. Meeting participants included: patients attending Physician, Dr. Patrick; the patients daughter, Jennifer Hernandez [phone]; the patients son, Adeel [phone]; this SW, charge Nurse, Declan; calender feeder, Zoraida and mail delivery supervisor, Carole. Dr. Patrick explained the pt.s current diagnosis and prognosis to family. Dr. Patrick addressed the familys questions and discussed the impact of the current intensity of treatment, along with the options of less aggressive treatment. Family expressed that they would prefer not to have patient receive aggressive treatment. Noted. Dr. Patrick recommended that pt. be placed on comfort measures only, and patients daughter Jennifer and son Adeel expressed understanding and stated that they would notify [facility] of their decision within the next few days. Addendum: 05/12/20 at 1631 by SOHAN QUICK No changes were made to the preferred intensity of care today. Changes will be made if requested by family.
--- NOTE | 2020-05-12 13:40 | NUR ---
Dr. Patrick gave an order to update preferred intensity of care to No CPR, No blood transfusion, No transfer to acute hospital, No dialysis and DC hematology and nephrology consult. Dr. Patrick was also aware of elevated WBC 19.7, VS 97.0, 73,20 98%, 131/67. No new order given. Dr. Rhodes, chemist proteins made aware that consultation was [place]. He said he will talk to Dr. Patrick. Will notify family.
--- NOTE | 2020-05-12 19:00 | NUR ---
Notified Jennifer of that nephrology and hematology consult was [place]. She asked what will happen if she does not have any labs? Explained to Jennifer that like Dr. Patrick said in the meeting that he is not treating the patient but only the lab values. She requested to see her mother via facetime which she did. She commented her mother's face is so swollen due to IVF, verbalized understanding that interventions like IVF is done to address elevated BUN but level will eventually come backup unless dialysis is done which she does not want for her mother. She mentioned she will speak with her brother and other siblings and inform Dr. Patrick of their decision in a couple of days. Endorsed.
[2020-05-12] MEDS: SENNOSIDES 8.6 MG TABLET GT SCH (21:49)
[2020-05-13] VITALS (7 sets, daily range): BP systolic 95–135; BP diastolic 27–67
[2020-05-13] MEDS: ALBUTEROL FS 2.5 MG/0.5 ML VIAL.NEB NEB SCH ×4 (02:06→19:56)
[2020-05-13] MEDS: IPRATROPIUM NEB FS 0.5 MG/2.5 ML AMPUL.NEB NEB SCH ×4 (02:06→19:56)
[2020-05-13] MEDS: POLYVINYL ALCOHOL 15 ML BOTTLE OP SCH ×4 (05:30→23:39)
[2020-05-13] MEDS: BIOTENE MOISTURIZING MM SCH ×4 (05:30→23:39)
[2020-05-13] MEDS: BLOOD SUGAR DIAGNOSTIC 1 EACH STRIP IN SCH ×4 (05:30→23:39)
[2020-05-13] MEDS: METOCLOPRAMIDE HCL 10 MG TABLET GT SCH ×4 (05:30→23:39)
[2020-05-13] MEDS: INSULIN REGULAR, HUMAN 100 UNIT/ML 3 ML VIAL SQ SCH ×4 (05:30→23:41)
[2020-05-13] MEDS: INSULIN REGULAR, HUMAN 100 UNIT/ML 3 ML VIAL SQ PRN ×2 (05:31→23:42)
[2020-05-13] MEDS: HYDROGEN PEROXIDE 480 ML BOTTLE TP SCH ×2 (08:10→21:25)
[2020-05-13] MEDS: METOPROLOL TARTRATE 25 MG TABLET GT SCH ×2 (08:48→20:05)
[2020-05-13] MEDS: MULTIVIT W/MINERALS 1 TAB TABLET GT SCH (08:48)
[2020-05-13] MEDS: DOCUSATE SODIUM LIQ 100 MG/10 ML UDC GT SCH (08:48)
[2020-05-13] MEDS: ASCORBIC ACID 500 MG TABLET GT SCH (08:48)
[2020-05-13] MEDS: FERROUS SULFATE - FOR SA ONLY 330 MG/7.5 ML UDC GT SCH (08:48)
[2020-05-13] MEDS: CALCITONIN,SALMON,SYNTHETIC 3.7 ML SPRAY.PUMP NS SCH (08:48)
[2020-05-13] MEDS: Z GUARD REMEDY 4 OZ OINT TP SCH ×4 (08:54→20:12)
[2020-05-13] MEDS: VITAMINS A AND D 56.7 GM TUBE TP SCH ×2 (08:54→20:12)
[2020-05-13] MEDS: INSULIN DETEMIR 100 UNIT/ML CARTRIDGE SQ SCH ×2 (08:54→20:12)
[2020-05-13] MEDS: ACIDOPHILUS/BULGARICUS 1 EACH TAB.CHEW GT SCH (12:02)
--- NOTE | 2020-05-13 19:00 | NUR ---
Informed Dr. Patrick that resident was not digesting her GT feeding, her gastric residual all day was 300-400cc, undigested milk. GT feeding held almost all day. Afebrile temp. 97.7F, BP- 106/27, HR-69, O2 sat. 97%, with generalized edema. Resident turned, repositioned and made comfortable. Left message to daughter. Will continue to monitor.
--- NOTE | 2020-05-13 19:45 | NUR ---
Received a return call for Chelsey Daughter and updated regarding patient condition,told her patient GT feeding is held d/t increase gastric residual of 400ml. Vitals sign BP 124/56 temp 96.8 O2 sats 97% HR 74. Patient noted with generalized edema and abdomen is distended. Kept warm and comfortable.Will continue to monitor.
[2020-05-13] MEDS: SENNOSIDES 8.6 MG TABLET GT SCH (21:19)
[2020-05-14] VITALS (7 sets, daily range): BP systolic 95–132; BP diastolic 42–77
[2020-05-14] MEDS: ACIDOPHILUS/BULGARICUS 1 EACH TAB.CHEW GT SCH ×3 (01:13→23:43)
[2020-05-14] MEDS: ALBUTEROL FS 2.5 MG/0.5 ML VIAL.NEB NEB SCH ×4 (02:07→19:22)
[2020-05-14] MEDS: IPRATROPIUM NEB FS 0.5 MG/2.5 ML AMPUL.NEB NEB SCH ×4 (02:07→19:22)
--- NOTE | 2020-05-14 03:30 | NUR ---
GT feeding re started no residual noted. HOB elevated. Will continue to monitor.
[2020-05-14] MEDS: BIOTENE MOISTURIZING MM SCH ×4 (05:03→23:05)
[2020-05-14] MEDS: POLYVINYL ALCOHOL 15 ML BOTTLE OP SCH ×4 (05:03→23:05)
[2020-05-14] MEDS: BLOOD SUGAR DIAGNOSTIC 1 EACH STRIP IN SCH ×4 (05:03→23:05)
[2020-05-14] MEDS: METOCLOPRAMIDE HCL 10 MG TABLET GT SCH ×4 (05:03→23:05)
[2020-05-14] MEDS: INSULIN REGULAR, HUMAN 100 UNIT/ML 3 ML VIAL SQ SCH ×4 (05:04→23:06)
[2020-05-14] MEDS: INSULIN REGULAR, HUMAN 100 UNIT/ML 3 ML VIAL SQ PRN ×4 (05:04→23:06)
--- NOTE | 2020-05-14 05:04 | NUR ---
Patient BP 111/77 HR 81.Oral secretions large amount frequent suctioning provided. Will continue to monitor.
[2020-05-14] MEDS: HYDROGEN PEROXIDE 480 ML BOTTLE TP SCH ×2 (08:24→19:22)
[2020-05-14] MEDS: INSULIN DETEMIR 100 UNIT/ML CARTRIDGE SQ SCH ×2 (09:47→20:25)
[2020-05-14] MEDS: FERROUS SULFATE - FOR SA ONLY 330 MG/7.5 ML UDC GT SCH (09:47)
[2020-05-14] MEDS: DOCUSATE SODIUM LIQ 100 MG/10 ML UDC GT SCH (09:47)
[2020-05-14] MEDS: METOPROLOL TARTRATE 25 MG TABLET GT SCH ×2 (09:47→20:24)
[2020-05-14] MEDS: Z GUARD REMEDY 4 OZ OINT TP SCH ×4 (09:47→20:25)
[2020-05-14] MEDS: MULTIVIT W/MINERALS 1 TAB TABLET GT SCH (09:47)
[2020-05-14] MEDS: CALCITONIN,SALMON,SYNTHETIC 3.7 ML SPRAY.PUMP NS SCH (09:47)
[2020-05-14] MEDS: ASCORBIC ACID 500 MG TABLET GT SCH (09:47)
[2020-05-14] MEDS: VITAMINS A AND D 56.7 GM TUBE TP SCH ×2 (09:48→20:26)
--- NOTE | 2020-05-14 15:30 | NUR ---
Virtual visit done by resident's daughter, she spent a couple of minutes talking to patient in their language. She said she noticed that patient's mouth is moving while she is talking, said " at least she can hear me.". Encouraged to call the nursing station and request for virtual visit via Zoom, which she said she will do again tomorrow. Endorsed.
--- NOTE | 2020-05-14 18:53 | NUR ---
No vomiting this shift. GT residual was 60cc this AM; 200cc GT residual noted prior to 6pm GT meds administration. No distress noted. Pt kept comfortable.
--- NOTE | 2020-05-14 20:00 | NUR ---
per primary nurse initial assessment, member with 200cc of gastric residual. feeding was held. pt awake and calm. will continue to monitor.
--- NOTE | 2020-05-14 21:00 | NUR ---
primary nurse checked blood sugar= 95 and still with gastric residual of 200cc still. feeding still off. orange juice given via gtube to maintain blood sugar. patient asleep but easily arousable. will continue to monitor
[2020-05-14] MEDS: SENNOSIDES 8.6 MG TABLET GT SCH (21:04)
[2020-05-14] MEDS ORDERED: DEXTROSE 50%-WATER 50 ML DISP.SYRIN ONE (23:31)
--- NOTE | 2020-05-14 23:41 | NUR ---
Primary nurse rechecked Blood sugar= 64. Charge nurse will administer D50 IV. Gastric residual is 300cc now. patient is awake and calm. charge nurse also FYChuck Patrick regarding patient condition and will wait for respond.
--- NOTE | 2020-05-14 23:51 | NUR ---
Dr. Patrick responded with new order to keep patient on NPO and to start IV D5 1/2 NS at 80cc/hr. patient is asleep. IV fluid started.
[2020-05-15] VITALS: BP_SYST 118; BP_SYST 135; BP_DIAS 54; BP_DIAS 56
[2020-05-15] MEDS: IPRATROPIUM NEB FS 0.5 MG/2.5 ML AMPUL.NEB NEB SCH ×4 (01:16→20:07)
[2020-05-15] MEDS: ALBUTEROL FS 2.5 MG/0.5 ML VIAL.NEB NEB SCH ×4 (01:16→20:07)
[2020-05-15] MEDS: METOCLOPRAMIDE HCL 10 MG TABLET GT SCH ×4 (05:44→23:46)
[2020-05-15] MEDS: BLOOD SUGAR DIAGNOSTIC 1 EACH STRIP IN SCH ×4 (05:44→23:46)
[2020-05-15] MEDS: BIOTENE MOISTURIZING MM SCH ×4 (05:44→23:46)
[2020-05-15] MEDS: POLYVINYL ALCOHOL 15 ML BOTTLE OP SCH ×4 (05:44→23:46)
[2020-05-15] MEDS: INSULIN REGULAR, HUMAN 100 UNIT/ML 3 ML VIAL SQ SCH ×3 (05:45→18:00)
[2020-05-15] MEDS: INSULIN REGULAR, HUMAN 100 UNIT/ML 3 ML VIAL SQ PRN ×2 (05:45→23:48)
[2020-05-15 06:00] VITALS: BP 115/50
--- NOTE | 2020-05-15 06:00 | NUR ---
Primary nurse rechecked BS=93. IV fluid still running and patient is asleep. Per primary nurse no more residual. will continue to monitor.
[2020-05-15 08:11] VITALS: BP 101/45
[2020-05-15] MEDS: HYDROGEN PEROXIDE 480 ML BOTTLE TP SCH ×2 (08:12→20:07)
[2020-05-15] MEDS: FERROUS SULFATE - FOR SA ONLY 330 MG/7.5 ML UDC GT SCH (09:00)
[2020-05-15] MEDS: Z GUARD REMEDY 4 OZ OINT TP SCH ×4 (09:00→20:11)
[2020-05-15] MEDS: VITAMINS A AND D 56.7 GM TUBE TP SCH ×2 (09:00→20:12)
[2020-05-15] MEDS: CALCITONIN,SALMON,SYNTHETIC 3.7 ML SPRAY.PUMP NS SCH (09:00)
[2020-05-15] MEDS: INSULIN DETEMIR 100 UNIT/ML CARTRIDGE SQ SCH (09:00)
[2020-05-15] MEDS: MULTIVIT W/MINERALS 1 TAB TABLET GT SCH (09:00)
[2020-05-15] MEDS: ASCORBIC ACID 500 MG TABLET GT SCH (09:00)
[2020-05-15] MEDS: DOCUSATE SODIUM LIQ 100 MG/10 ML UDC GT SCH (09:00)
[2020-05-15] MEDS: METOPROLOL TARTRATE 25 MG TABLET GT SCH ×2 (09:00→20:11)
[2020-05-15] MEDS: ACIDOPHILUS/BULGARICUS 1 EACH TAB.CHEW GT SCH ×2 (12:57→23:46)
[2020-05-15] MEDS: IV D5/0.45 NACL 1,000 ML IV PRN (14:46)
--- NOTE | 2020-05-15 18:00 | NUR ---
Informed Dr. Patrick regarding blood sugar results the whole day. 0900-BS 105, 1200-81, 1800- 105, gave order to d/c Humulin R 12 units every 6 hrs and Levemir 62 units q 12 hrs. Cont. IV hydration. Awake at times, no s/s of resp distress, with generalized edema, abdomen hard and distended, hypoactive bowel sounds. GT feeding still on hold, noted 20 cc gastric residual. Kept clean dry and comfortable. VS BP- 111/58, HR-68, Temp. 97.7F, O2 sat. 95%. Daughter Jennifer updated about resident's condition and current orders, appreciated the call. Will continue to monitor.
[2020-05-15 18:27] VITALS: BP 106/48
[2020-05-15 20:08] VITALS: BP 106/73
[2020-05-15] MEDS: SENNOSIDES 8.6 MG TABLET GT SCH (21:01)
[2020-05-16] VITALS (8 sets, daily range): BP systolic 104–128; BP diastolic 50–71
[2020-05-16] MEDS: IPRATROPIUM NEB FS 0.5 MG/2.5 ML AMPUL.NEB NEB SCH ×4 (01:57→19:42)
[2020-05-16] MEDS: ALBUTEROL FS 2.5 MG/0.5 ML VIAL.NEB NEB SCH ×4 (01:57→19:42)
[2020-05-16] MEDS: IV D5/0.45 NACL 1,000 ML IV PRN ×2 (03:00→16:00)
[2020-05-16] MEDS: POLYVINYL ALCOHOL 15 ML BOTTLE OP SCH ×3 (05:08→18:12)
[2020-05-16] MEDS: METOCLOPRAMIDE HCL 10 MG TABLET GT SCH ×3 (05:08→18:12)
[2020-05-16] MEDS: BLOOD SUGAR DIAGNOSTIC 1 EACH STRIP IN SCH ×3 (05:08→18:12)
[2020-05-16] MEDS: BIOTENE MOISTURIZING MM SCH ×3 (05:08→18:12)
[2020-05-16] MEDS: INSULIN REGULAR, HUMAN 100 UNIT/ML 3 ML VIAL SQ PRN ×3 (05:09→18:13)
[2020-05-16] MEDS: HYDROGEN PEROXIDE 480 ML BOTTLE TP SCH ×2 (08:05→19:42)
[2020-05-16] MEDS: DOCUSATE SODIUM LIQ 100 MG/10 ML UDC GT SCH (08:43)
[2020-05-16] MEDS: MULTIVIT W/MINERALS 1 TAB TABLET GT SCH (08:44)
[2020-05-16] MEDS: METOPROLOL TARTRATE 25 MG TABLET GT SCH ×2 (08:44→20:01)
[2020-05-16] MEDS: Z GUARD REMEDY 4 OZ OINT TP SCH ×4 (08:44→20:02)
[2020-05-16] MEDS: CALCITONIN,SALMON,SYNTHETIC 3.7 ML SPRAY.PUMP NS SCH (08:44)
[2020-05-16] MEDS: ASCORBIC ACID 500 MG TABLET GT SCH (08:44)
[2020-05-16] MEDS: FERROUS SULFATE - FOR SA ONLY 330 MG/7.5 ML UDC GT SCH (08:44)
[2020-05-16] MEDS: VITAMINS A AND D 56.7 GM TUBE TP SCH ×2 (08:45→20:02)
--- NOTE | 2020-05-16 10:57 | NUR ---
YNES called the patients daughter, Jennifer Hernandez [phone] to follow with the family's decisions in regards to placing pt. on comfort care /taking off the vent. YNES left SW call back number.
--- NOTE | 2020-05-16 11:44 | NUR ---
Family Decision: SW called the pt.'s son, Adeel [phone] to follow up with family's decision wether or not to place pt. on comfort care. Adeel stated that the family has made a decision. However, they want to have arrangements prior to moving forward with their decision, per Adeel. Noted. YNES informed charge nurse & Dr. Patrick. SW will continue to provide support to family and follow up accordingly.
[2020-05-16] MEDS: ACIDOPHILUS/BULGARICUS 1 EACH TAB.CHEW GT SCH (13:07)
[2020-05-16] MEDS: SENNOSIDES 8.6 MG TABLET GT SCH (21:32)
[2020-05-17] MEDS: POLYVINYL ALCOHOL 15 ML BOTTLE OP SCH ×4 (00:26→17:20)
[2020-05-17] MEDS: BLOOD SUGAR DIAGNOSTIC 1 EACH STRIP IN SCH ×4 (00:26→17:27)
[2020-05-17] MEDS: BIOTENE MOISTURIZING MM SCH ×4 (00:26→17:24)
[2020-05-17] MEDS: METOCLOPRAMIDE HCL 10 MG TABLET GT SCH ×4 (00:26→17:20)
[2020-05-17] MEDS: ACIDOPHILUS/BULGARICUS 1 EACH TAB.CHEW GT SCH ×2 (00:27→11:51)
[2020-05-17] MEDS: INSULIN REGULAR, HUMAN 100 UNIT/ML 3 ML VIAL SQ PRN ×4 (00:29→17:28)
[2020-05-17 00:32] VITALS: BP 118/62
[2020-05-17] MEDS: IPRATROPIUM NEB FS 0.5 MG/2.5 ML AMPUL.NEB NEB SCH ×4 (01:21→19:45)
[2020-05-17] MEDS: ALBUTEROL FS 2.5 MG/0.5 ML VIAL.NEB NEB SCH ×4 (01:21→19:45)
[2020-05-17 06:04] VITALS: BP 119/53
[2020-05-17] MEDS: CALCITONIN,SALMON,SYNTHETIC 3.7 ML SPRAY.PUMP NS SCH (08:00)
[2020-05-17] MEDS: MULTIVIT W/MINERALS 1 TAB TABLET GT SCH (08:00)
[2020-05-17] MEDS: ASCORBIC ACID 500 MG TABLET GT SCH (08:00)
[2020-05-17] MEDS: FERROUS SULFATE - FOR SA ONLY 330 MG/7.5 ML UDC GT SCH (08:00)
[2020-05-17] MEDS: Z GUARD REMEDY 4 OZ OINT TP SCH ×4 (08:00→20:03)
[2020-05-17] MEDS: VITAMINS A AND D 56.7 GM TUBE TP SCH ×2 (08:00→20:03)
[2020-05-17] MEDS: HYDROGEN PEROXIDE 480 ML BOTTLE TP SCH ×2 (08:00→19:45)
[2020-05-17] MEDS: DOCUSATE SODIUM LIQ 100 MG/10 ML UDC GT SCH (08:00)
[2020-05-17] MEDS: METOPROLOL TARTRATE 25 MG TABLET GT SCH ×2 (08:01→20:06)
[2020-05-17 10:58] VITALS: BP 94/74
--- NOTE | 2020-05-17 11:45 | NUR ---
Pt's daughter was allowed to visit. Screened her for Covid-19, T 96.7 F, she has no signs and symptoms. Pt's daughter was given PPEs to wear and requester her to perform hand hygiene. Closed curtains in the room for privacy and to prevent risk of possible Covid exposure. Pt's daughter said she wants to speak with Dr Patrick again regarding comfort care.
[2020-05-17] MEDS: NEPRO 1,000 ML BOTTLE GT PRN (15:28)
[2020-05-17 16:04] VITALS: BP 84/38
--- NOTE | 2020-05-17 16:45 | NUR ---
Seen by Dr Patrick. Informed him that pt's daughter visited today and would like to speak with him regarding end of life decisions or comfort care. He said he will call her. Asked Dr Patrick if pt's feeding should be resumed. He ordered to resume GT feeding Nepro at 20 mL/hr. Notified Jennifer.
--- NOTE | 2020-05-17 16:50 | NUR ---
Dr Patrick ordered to DC IV fluid D5 1/2 NS and to give 200 mL water via GT q 8 hours. Notified Jennifer.
[2020-05-17 22:00] VITALS: BP_SYST 128; BP_SYST 132; BP_DIAS 56
[2020-05-17] MEDS: SENNOSIDES 8.6 MG TABLET GT SCH (22:30)
[2020-05-18] MEDS: ACIDOPHILUS/BULGARICUS 1 EACH TAB.CHEW GT SCH ×3 (00:30→23:54)
[2020-05-18 00:36] VITALS: BP 122/56
[2020-05-18] MEDS: ALBUTEROL FS 2.5 MG/0.5 ML VIAL.NEB NEB SCH ×4 (02:14→19:47)
[2020-05-18] MEDS: IPRATROPIUM NEB FS 0.5 MG/2.5 ML AMPUL.NEB NEB SCH ×4 (02:14→19:47)
[2020-05-18] MEDS: INSULIN REGULAR, HUMAN 100 UNIT/ML 3 ML VIAL SQ PRN ×5 (03:17→23:56)
[2020-05-18] MEDS: METOCLOPRAMIDE HCL 10 MG TABLET GT SCH ×5 (05:13→23:54)
[2020-05-18] MEDS: BIOTENE MOISTURIZING MM SCH ×5 (05:13→23:54)
[2020-05-18] MEDS: BLOOD SUGAR DIAGNOSTIC 1 EACH STRIP IN SCH ×5 (05:13→23:54)
[2020-05-18] MEDS: POLYVINYL ALCOHOL 15 ML BOTTLE OP SCH ×5 (05:13→23:54)
--- NOTE | 2020-05-18 06:00 | NUR ---
RN NOTES Noted pt with gastric residual of 800ml. Feeding held. Will continue to monitor.
[2020-05-18 06:11] VITALS: BP 131/67
[2020-05-18 07:53] VITALS: BP 133/48
[2020-05-18] MEDS: HYDROGEN PEROXIDE 480 ML BOTTLE TP SCH ×2 (08:11→21:00)
[2020-05-18] MEDS: FERROUS SULFATE - FOR SA ONLY 330 MG/7.5 ML UDC GT SCH (09:00)
[2020-05-18] MEDS: VITAMINS A AND D 56.7 GM TUBE TP SCH ×2 (09:00→21:12)
[2020-05-18] MEDS: CALCITONIN,SALMON,SYNTHETIC 3.7 ML SPRAY.PUMP NS SCH (09:00)
[2020-05-18] MEDS: Z GUARD REMEDY 4 OZ OINT TP SCH ×4 (09:00→21:12)
[2020-05-18] MEDS: DOCUSATE SODIUM LIQ 100 MG/10 ML UDC GT SCH (09:00)
[2020-05-18] MEDS: MULTIVIT W/MINERALS 1 TAB TABLET GT SCH (09:00)
[2020-05-18] MEDS: METOPROLOL TARTRATE 25 MG TABLET GT SCH ×2 (09:00→21:12)
[2020-05-18] MEDS: ASCORBIC ACID 500 MG TABLET GT SCH (09:00)
--- NOTE | 2020-05-18 12:40 | NUR ---
Left a message to Dr. Patrick, gastric residual 250 ml. currently not on any IVF. BS 183, feeding held for now, will continue to monitor.
[2020-05-18 13:45] VITALS: BP 130/75
--- NOTE | 2020-05-18 15:28 | NUR ---
Facility Update: SW sent the pt.'s family, Jennifer Hernandez a message via [employer] informing them that "No [facility] Sub-Acute residents or employees tested positive for COVID-19 this week. As recommended by [facility], all Sub-Acute residents & healthcare personnel will continue receiving response testing. [facility] continues to follow infection control protocols and screen our residents and staff daily for symptoms".
[2020-05-18 18:12] VITALS: BP 128/70
--- NOTE | 2020-05-18 19:05 | NUR ---
Gastric residual 30 ml, feeding restarted, BS 155. No nausea or vomiting. Resident's daughter informed of current's patient's condition i.e high gastric residual this morning of 250 ml., body temperature last night and this shift 96.0 however retail shift leader obtained 93.5. Jennifer said " I know it is going to happen soon asking if the doctor will be in the hospital on the weekend. Jennifer thinks that physician will carryout removal of patient's ventilator should she decided comfort measures. Informed daughter that physician will order and staff will carry out the order. She expressed that she would like to speak again with the doctor in AM and would like to clarify the procedure. "My fear is my mom will pass away without me". Reassured Jennifer that if she wants to see her mother today we will ask permission from administration. Endorsed to incoming shift.
--- NOTE | 2020-05-18 20:00 | NUR ---
Patient temperature 93.5,HR 64,Bp 133/87,RR 15, patient noted with WOB of breathing O2 sats 90% Fi02 increase to 40%. Warming blanket provided and kept comfortable. Notified Dr. Patrick regarding patient condition. Daughter Jennifer updated and want to see her mother.Permission given by hospital unit clerk and warehouse worker. Patient came and infection control assessment done.Temp 96.5,PPE provided. Curtains closed for privacy.
[2020-05-18 20:55] VITALS: BP 133/87
[2020-05-18] MEDS: SENNOSIDES 8.6 MG TABLET GT SCH (21:12)
[2020-05-19] VITALS (7 sets, daily range): BP systolic 115–143; BP diastolic 25–82
[2020-05-19] MEDS: IPRATROPIUM NEB FS 0.5 MG/2.5 ML AMPUL.NEB NEB SCH ×4 (01:49→19:49)
[2020-05-19] MEDS: ALBUTEROL FS 2.5 MG/0.5 ML VIAL.NEB NEB SCH ×4 (01:49→19:49)
[2020-05-19] MEDS: BIOTENE MOISTURIZING MM SCH ×3 (05:14→18:32)
[2020-05-19] MEDS: POLYVINYL ALCOHOL 15 ML BOTTLE OP SCH ×3 (05:14→18:32)
[2020-05-19] MEDS: METOCLOPRAMIDE HCL 10 MG TABLET GT SCH ×3 (05:14→18:32)
[2020-05-19] MEDS: BLOOD SUGAR DIAGNOSTIC 1 EACH STRIP IN SCH ×3 (05:14→18:32)
[2020-05-19] MEDS: INSULIN REGULAR, HUMAN 100 UNIT/ML 3 ML VIAL SQ PRN ×3 (05:16→18:34)
--- NOTE | 2020-05-19 06:26 | NUR ---
Patient comfortable at this time BP 121/54,HR 74 Temp 96.8,kept warm. Patient with on and off WOB breathing mostly after patient care,turning and repositioning .Kept comfortable and will monitor closely.
[2020-05-19] MEDS: DOCUSATE SODIUM LIQ 100 MG/10 ML UDC GT SCH (08:18)
[2020-05-19] MEDS: FERROUS SULFATE - FOR SA ONLY 330 MG/7.5 ML UDC GT SCH (08:20)
[2020-05-19] MEDS: VITAMINS A AND D 56.7 GM TUBE TP SCH ×2 (08:21→21:26)
[2020-05-19] MEDS: CALCITONIN,SALMON,SYNTHETIC 3.7 ML SPRAY.PUMP NS SCH (08:21)
[2020-05-19] MEDS: ASCORBIC ACID 500 MG TABLET GT SCH (08:21)
[2020-05-19] MEDS: METOPROLOL TARTRATE 25 MG TABLET GT SCH ×2 (08:21→21:25)
[2020-05-19] MEDS: MULTIVIT W/MINERALS 1 TAB TABLET GT SCH (08:21)
[2020-05-19] MEDS: Z GUARD REMEDY 4 OZ OINT TP SCH ×4 (08:21→21:26)
[2020-05-19] MEDS: NEPRO 1,000 ML BOTTLE GT PRN (08:22)
[2020-05-19] MEDS: HYDROGEN PEROXIDE 480 ML BOTTLE TP SCH ×2 (09:46→20:29)
[2020-05-19] MEDS: ACIDOPHILUS/BULGARICUS 1 EACH TAB.CHEW GT SCH (12:56)
--- NOTE | 2020-05-19 18:05 | NUR ---
RT NOTE Changed inner canula and minor bleeding noticed lavaged with iced saline and changed gauze. Notified RN
[2020-05-19] MEDS: SENNOSIDES 8.6 MG TABLET GT SCH (21:26)
[2020-05-20] VITALS (7 sets, daily range): BP systolic 117–138; BP diastolic 47–79
[2020-05-20] MEDS: METOCLOPRAMIDE HCL 10 MG TABLET GT SCH ×5 (00:40→23:22)
[2020-05-20] MEDS: POLYVINYL ALCOHOL 15 ML BOTTLE OP SCH ×5 (00:41→23:24)
[2020-05-20] MEDS: BIOTENE MOISTURIZING MM SCH ×5 (00:41→23:23)
[2020-05-20] MEDS: ACIDOPHILUS/BULGARICUS 1 EACH TAB.CHEW GT SCH ×2 (00:41→13:02)
[2020-05-20] MEDS: BLOOD SUGAR DIAGNOSTIC 1 EACH STRIP IN SCH ×5 (00:41→23:22)
[2020-05-20] MEDS: INSULIN REGULAR, HUMAN 100 UNIT/ML 3 ML VIAL SQ PRN ×5 (00:45→23:25)
[2020-05-20] MEDS: ALBUTEROL FS 2.5 MG/0.5 ML VIAL.NEB NEB SCH ×4 (02:22→19:43)
[2020-05-20] MEDS: IPRATROPIUM NEB FS 0.5 MG/2.5 ML AMPUL.NEB NEB SCH ×4 (02:22→19:43)
[2020-05-20] MEDS: DOCUSATE SODIUM LIQ 100 MG/10 ML UDC GT SCH (08:31)
[2020-05-20] MEDS: FERROUS SULFATE - FOR SA ONLY 330 MG/7.5 ML UDC GT SCH (08:31)
[2020-05-20] MEDS: METOPROLOL TARTRATE 25 MG TABLET GT SCH ×2 (08:31→21:09)
[2020-05-20] MEDS: MULTIVIT W/MINERALS 1 TAB TABLET GT SCH (08:32)
[2020-05-20] MEDS: CALCITONIN,SALMON,SYNTHETIC 3.7 ML SPRAY.PUMP NS SCH (08:32)
[2020-05-20] MEDS: Z GUARD REMEDY 4 OZ OINT TP SCH ×4 (08:32→21:09)
[2020-05-20] MEDS: ASCORBIC ACID 500 MG TABLET GT SCH (08:32)
[2020-05-20] MEDS: VITAMINS A AND D 56.7 GM TUBE TP SCH ×2 (08:32→21:09)
[2020-05-20] MEDS: HYDROGEN PEROXIDE 480 ML BOTTLE TP SCH ×2 (08:41→20:24)
[2020-05-20] MEDS: NEPRO 1,000 ML BOTTLE GT PRN (18:05)
--- NOTE | 2020-05-20 20:13 | NUR ---
Patient daughter called and updated regarding patient condition,told her vital signs is stable at this time,still with on and off WOB. Daughter said that they decided that they don't want their mother to suffer anymore and want to speak to DR. Patrick,she said she left message for him awaiting for call back and will follow up tomorrow morning to discuss the plan.Will continue to monitor patient.Kept her comfortable.
[2020-05-20] MEDS: SENNOSIDES 8.6 MG TABLET GT SCH (21:09)
[2020-05-21] VITALS (7 sets, daily range): BP systolic 103–120; BP diastolic 56–96
[2020-05-21] MEDS: ACIDOPHILUS/BULGARICUS 1 EACH TAB.CHEW GT SCH ×2 (00:33→12:17)
[2020-05-21] MEDS: ALBUTEROL FS 2.5 MG/0.5 ML VIAL.NEB NEB SCH ×4 (02:06→19:16)
[2020-05-21] MEDS: IPRATROPIUM NEB FS 0.5 MG/2.5 ML AMPUL.NEB NEB SCH ×4 (02:06→19:16)
[2020-05-21] MEDS: METOCLOPRAMIDE HCL 10 MG TABLET GT SCH ×3 (05:13→17:28)
[2020-05-21] MEDS: BLOOD SUGAR DIAGNOSTIC 1 EACH STRIP IN SCH ×3 (05:14→17:28)
[2020-05-21] MEDS: BIOTENE MOISTURIZING MM SCH ×3 (05:14→17:28)
[2020-05-21] MEDS: POLYVINYL ALCOHOL 15 ML BOTTLE OP SCH ×3 (05:14→17:28)
[2020-05-21] MEDS: INSULIN REGULAR, HUMAN 100 UNIT/ML 3 ML VIAL SQ PRN ×3 (05:15→18:56)
[2020-05-21] MEDS: FERROUS SULFATE - FOR SA ONLY 330 MG/7.5 ML UDC GT SCH (08:24)
[2020-05-21] MEDS: DOCUSATE SODIUM LIQ 100 MG/10 ML UDC GT SCH (08:24)
[2020-05-21] MEDS: ASCORBIC ACID 500 MG TABLET GT SCH (08:25)
[2020-05-21] MEDS: METOPROLOL TARTRATE 25 MG TABLET GT SCH ×2 (08:25→21:14)
[2020-05-21] MEDS: MULTIVIT W/MINERALS 1 TAB TABLET GT SCH (08:25)
[2020-05-21] MEDS: CALCITONIN,SALMON,SYNTHETIC 3.7 ML SPRAY.PUMP NS SCH (08:26)
[2020-05-21] MEDS: VITAMINS A AND D 56.7 GM TUBE TP SCH ×2 (08:26→21:14)
[2020-05-21] MEDS: Z GUARD REMEDY 4 OZ OINT TP SCH ×4 (08:26→21:14)
[2020-05-21] MEDS: HYDROGEN PEROXIDE 480 ML BOTTLE TP SCH ×2 (09:00→21:00)
--- NOTE | 2020-05-21 09:50 | NUR ---
Notified Dr. Patrick of patient children's decision for their mother not to suffer any more. Informed MD that Jennifer would like to speak with him to ask specific question as to how this will be carried out. Jennifer (daughter) and Adeel (son) phone numbers given to Dr. Patrick. Jennifer made aware that Dr. Patrick was made aware of her request and will contact her as soon as possible, She asked if she could visit her mother; administration granted her request per nursing press room supervisor and executive director of nursing. Appreciated the effort.
--- NOTE | 2020-05-21 13:30 | NUR ---
Jennifer at bedside visiting her mother, reinforced observation of infection control protocol, mask and gown provided. She requested if she can speak with Dr. Patrick while she is her. Notified Dr. Patrick and came to speak with patient's daughter Jennifer face to face. Dr. Patrick to;ld this nurse that Jennifer will give this nurse a call when they decide when they will transition to comfort measures either Saturday or Saturday. Dr. Patrick said to notify him via text message of family's decision and will give the order. Dr. Patrick also said that it is up to the family if they want to be around or not when RT removes patient from ventilator. Awaiting for family's decision.
--- NOTE | 2020-05-21 15:30 | NUR ---
Notified Dr. Patrick of family's decision that they would like to do it tomorrow, Rohit and siblings will be around between [id number]. Order was given by Dr. Patrick to MACHO solomon on 05/22/20, give Morphine 1 mg. IV, 30 minutes prior to discontinuing the ventilator. Dr. Patrick also gave PRN Morphine and Ativan for pain and respiratory distress. Orders carried out. Faxed orders to [facility] and [facility] pharmacy. Endorsed. RT informed.
--- NOTE | 2020-05-21 19:00 | NUR ---
Resident's daughter notified of Dr. Patrick's orders. Advised to call nursing station and speak with CN informing the nurse of the time they plan to be in the hospital so the medication (Morphine) can be given ahead of time. She asked if all 3 of the sibling can be at the bedside. Explained to Jennifer that because of infection control reasons we can only allow one visitor at a time. manager eligibility is aware of family's request. Endorsed to incoming shift.
[2020-05-21] MEDS: SENNOSIDES 8.6 MG TABLET GT SCH (21:14)
[2020-05-22] MEDS: METOCLOPRAMIDE HCL 10 MG TABLET GT SCH ×4 (00:18→18:29)
[2020-05-22] MEDS: BIOTENE MOISTURIZING MM SCH ×4 (00:18→18:29)
[2020-05-22] MEDS: ACIDOPHILUS/BULGARICUS 1 EACH TAB.CHEW GT SCH ×2 (00:18→12:30)
[2020-05-22] MEDS: POLYVINYL ALCOHOL 15 ML BOTTLE OP SCH ×4 (00:18→18:29)
[2020-05-22] MEDS: BLOOD SUGAR DIAGNOSTIC 1 EACH STRIP IN SCH ×4 (00:18→18:29)
[2020-05-22 00:22] VITALS: BP 110/54
[2020-05-22] MEDS: INSULIN REGULAR, HUMAN 100 UNIT/ML 3 ML VIAL SQ PRN ×4 (00:22→18:30)
[2020-05-22 00:24] VITALS: BP 110/54
[2020-05-22] MEDS: ALBUTEROL FS 2.5 MG/0.5 ML VIAL.NEB NEB SCH ×4 (02:23→19:31)
[2020-05-22] MEDS: IPRATROPIUM NEB FS 0.5 MG/2.5 ML AMPUL.NEB NEB SCH ×4 (02:23→19:31)
[2020-05-22 06:10] VITALS: BP 105/50
[2020-05-22 07:51] VITALS: BP 102/28
[2020-05-22] MEDS: HYDROGEN PEROXIDE 480 ML BOTTLE TP SCH ×2 (09:00→19:31)
[2020-05-22] MEDS: FERROUS SULFATE - FOR SA ONLY 330 MG/7.5 ML UDC GT SCH (09:48)
[2020-05-22] MEDS: DOCUSATE SODIUM LIQ 100 MG/10 ML UDC GT SCH (09:48)
[2020-05-22] MEDS: ASCORBIC ACID 500 MG TABLET GT SCH (09:50)
[2020-05-22] MEDS: CALCITONIN,SALMON,SYNTHETIC 3.7 ML SPRAY.PUMP NS SCH (09:50)
[2020-05-22] MEDS: MULTIVIT W/MINERALS 1 TAB TABLET GT SCH (09:50)
[2020-05-22] MEDS: Z GUARD REMEDY 4 OZ OINT TP SCH ×2 (09:50→09:51)
[2020-05-22] MEDS: METOPROLOL TARTRATE 25 MG TABLET GT SCH (09:50)
[2020-05-22] MEDS: VITAMINS A AND D 56.7 GM TUBE TP SCH (09:51)
--- NOTE | 2020-05-22 10:30 | NUR ---
Called [facility] pharmacy and spoke to sarina regarding patients' morphine and ativan IV, they have been calling Dr. Patrick for verbal order to dispense Morphine and ativan IV, per sarina will follow up again with Dr. Patrick and needs code to open E Kit.
--- NOTE | 2020-05-22 11:08 | NUR ---
Called Jennifer (pts.' daughter) and confirmed time she will be here in subacute, she said between 1:30-2:00pm and requested to wait for her and 2 other siblings before giving morphine, acknowledged her request.
--- NOTE | 2020-05-22 12:32 | NUR ---
Patient calm at this time, on vent, no further respiratory distress at this time. Provided good oral care as needed. Kept HOB elevated for comfort measures. On GT feeding 20 ml/hr, tolerating well at this time. No nausea and vomiting. Has generalized edema. Kept on comfort measures per family request. Family is coming this afternoon between 1:30-2 pm.
[2020-05-22] MEDS ORDERED: MORPHINE SULFATE INJ 2 MG/ML DISP.SYRIN IV PRN (13:00)
[2020-05-22] MEDS ORDERED: MORPHINE SULFATE INJ 2 MG/ML DISP.SYRIN IV ONE (13:00)
--- NOTE | 2020-05-22 13:45 | NUR ---
Patients' family came as they requested, they ok to give the morphine IV at 1:45 pm and after 30 min (2:15pm) take off the vent. Morphine 1 mg IV given 30 min before RT taking off patient from the vent. Patient calm at this time.
--- NOTE | 2020-05-22 14:27 | NUR ---
Patient is taking off the vent at 1415 and placed on trach collar with 3 LPM O2 for comfort measure per MD order. Patient family were present in the room at this time and patient appeared without any distress.Patient will continue to be monitor for any discomfort.
[2020-05-22] MEDS: LORAZEPAM INJ 2 MG/ML VIAL IV PRN ×2 (14:51→16:40)
--- NOTE | 2020-05-22 14:51 | NUR ---
Patient off the vent, on 02 via trach mask at 3l/min for comfort measures. Noted diaphragmatic breathing at this time. Family at bedside. Ativan 1 mg IV given now for difficulty in breathing. Kept patient safe and comfortable.
--- NOTE | 2020-05-22 16:40 | NUR ---
Patient on 02 via trach mask at 3l/min, with episodes of diaphragmatic breathing, noted thick brown secretions. Suctioned as needed. Kept HOB at least 30 degrees elevated for comfort measures. Provided good oral care. Patients' family at bedside. Continue to observe diaphragmatic breathing, ativan 1 mg IV push given. Patients' face reddened, abdomen big and firm to touch. On continuos GT feeding at 20 ml/hr, no nausea and vomiting at this time. Kept dry and clean at all times. Continue with comfort measures.
--- NOTE | 2020-05-22 18:00 | NUR ---
Family left, patient calm at this time, ativan 1 mg IV given effective. V/S 81/24,HR 66, RR 22, Temp. 97.6.
[2020-05-22 18:30] VITALS: BP 81/24
--- NOTE | 2020-05-22 18:51 | NUR ---
BENCH MOLDER reported that patient is gone, assessed patient, all vital signs not appreciated, both pupils fixed and dilated. Patient has ashen color. Nail beds bluish in color. Patient pronounced at 1851, verified with another nurse.
--- NOTE | 2020-05-22 19:00 | NUR ---
Called and made supervisor bottle house cleaners Ms. Junior aware that patient at 185. Called and notified patients' daughter Jennifer, she stated that she will come to see her mom for the last time. Notified Dr. Patrick. Called [facility] ([phone]), spoke to Alex and she stated will not move forward to donor organ. She gave Referral ID [id number]. Incoming charge nurse aware.
--- NOTE | 2020-05-22 19:45 | NUR ---
Family came to see their mom, their mortuary of choice is [facility] in [facility]. They were given instruction to call [facility] to speak to nursing shipping and receiving supervisor regarding mortuary services. Incoming charge nurse gave them instructions. Patients' daughter got all her moms picture from bedside.
[2020-09-10] MEDS ORDERED: TUBERCULIN,PURIF.PROT.DERIV. 5 TU/0.1 ML VIAL ID SCH (12:30)
== END 2020-05-22 23:44 | disposition expired | DRG 207 ==
LOC: SA 00:01
PROVIDERS: ADMIT Internal Medicine; ATTEND Internal Medicine
PROC: 5A1955Z Respiratory Ventilation, Greater than 96 Consecutive Hours (ICD-10-PCS; principal; 2020-04-22)
DX: J96.10 Chronic respiratory failure, unspecified whether with hypoxia or hypercapnia (principal); E43 Unspecified severe protein-calorie malnutrition; I21.4 Non-ST elevation (NSTEMI) myocardial infarction; N18.4 Chronic kidney disease, stage 4 (severe); Z99.11 Dependence on respirator [ventilator] status; G93.49 Other encephalopathy; J90 Pleural effusion, not elsewhere classified; I42.9 Cardiomyopathy, unspecified; C90.00 Multiple myeloma not having achieved remission; G93.1 Anoxic brain damage, not elsewhere classified; I82.622 Acute embolism and thrombosis of deep veins of left upper extremity; N17.9 Acute kidney failure, unspecified; K94.23 Gastrostomy malfunction; I12.9 Hypertensive chronic kidney disease with stage 1 through stage 4 chronic kidney disease, or unspecified chronic kidney disease; Z86.718 Personal history of other venous thrombosis and embolism; I25.10 Atherosclerotic heart disease of native coronary artery without angina pectoris; E78.5 Hyperlipidemia, unspecified; E11.22 Type 2 diabetes mellitus with diabetic chronic kidney disease; J44.9 Chronic obstructive pulmonary disease, unspecified; Z51.5 Encounter for palliative care; Z74.01 Bed confinement status; Z66 Do not resuscitate; R13.10 Dysphagia, unspecified; D63.8 Anemia in other chronic diseases classified elsewhere; E11.51 Type 2 diabetes mellitus with diabetic peripheral angiopathy without gangrene; Z86.74 Personal history of sudden cardiac arrest; Z87.440 Personal history of urinary (tract) infections; Z87.01 Personal history of pneumonia (recurrent); Z86.14 Personal history of Methicillin resistant Staphylococcus aureus infection; Z83.3 Family history of diabetes mellitus; Z82.49 Family history of ischemic heart disease and other diseases of the circulatory system; Z82.3 Family history of stroke; L98.9 Disorder of the skin and subcutaneous tissue, unspecified; D64.9 Anemia, unspecified; F03.90 Unspecified dementia, unspecified severity, without behavioral disturbance, psychotic disturbance, mood disturbance, and anxiety; H35.52 Pigmentary retinal dystrophy; H54.8 Legal blindness, as defined in USA; D72.829 Elevated white blood cell count, unspecified; L89.159 Pressure ulcer of sacral region, unspecified stage; L60.3 Nail dystrophy; M24.561 Contracture, right knee; M24.562 Contracture, left knee; E11.65 Type 2 diabetes mellitus with hyperglycemia; E83.52 Hypercalcemia; Z74.09 Other reduced mobility; Y83.3 Surgical operation with formation of external stoma as the cause of abnormal reaction of the patient, or of later complication, without mention of misadventure at the time of the procedure; Y92.89 Other specified places as the place of occurrence of the external cause
CPT/HCPCS: 31720; 36415; 74018; 80048-TC; 80053-TC; 82962-TC; 83735-TC; 84100-TC; 85025-TC; 85027-TC; 94003-TC; 94760-TC; 94762-TC; 94799-TC; A4623; A7526; J2270; J3490; J7042; Q9963; U0003